=== PATIENT | male | born 1945 | race Caucasian/White ===

== ENCOUNTER → 2017-05-26 | Day surgery (SDC) | payer OTHER ==
[2017-04-21 13:05] VITALS: Ht 189.2 cm; Wt 145.4 kg
[~2017-05-26] VITALS: Ht 189.2 cm; Wt 145.4 kg
[~2017-05-26] MED LIST: 500ML BSS 0.3ML EPI 1:1000PF IRRIG ONE; ACETAMINOPHEN 325 MG TAB PO PRN; AMVISC PLUS 0.8ML SYRINGE INT OCU ONE; ASPI81TA28 PO; ATROPINE SULFATE 0.1 MG/ML 5ML SYR IV PRN; BSS FLUSH ONE; EpHEDrine SULFATE INJ 50 MG/ML AMP IV PRN; EpINEphrine INJ 1MG/ML AMP 1 MG/ML AMP ONE; FOLI1TAB7 PO; LACTATED RINGER'S 1000ML 500 ML IV SCH; LIDOCAINE 3.5% OPH GEL PER APPLICATION CHARGE ONE; LIDOCAINE HCL 1% MPF 2 ML VIAL ONE; LISI-729 PO; METH2.5T PO; MIDAZOLAM HCL 1 MG/ML 2ML VIAL ONE; MISCCAP PO; OCUCOAT 1 ML SOLN IO ONE; POVIDONE-IODINE OP SOLN 30 ML BTL ONE; PROPARACAINE 0.5% OP SOLN PER DROP CHARGE OPL SCH; TOBRAMYCIN/DEXAMETHASONE OPH OINT PER APPLN CHARGE ONE; VNTHFA/IN INH
[2017-05-26] MEDS: PHENYLEPHRINE HCL 2.5% OP SOLN PER DROP CHARGE OPL SCH ×2 (12:08→12:13)
--- NOTE | 2017-05-26 12:08 | History & Physical Bridge - [place] ---
H&P Re-Evaluation Bridge Note: I have examined the patient, reviewed the History & Physical and in the interval since the performance of the History & Physical I have noted the following changes of clinical significance: Diagnosis: Left Cataract Procedure: Left Cataract Removal with Lens Implant No changes noted
[2017-05-26] MEDS: CYCLOPENTOLATE HCL 1% OP SOLN PER DROP CHARGE OPL SCH ×2 (12:09→12:14)
[2017-05-26] MEDS: TROPICAMIDE 1% OP SOLN PER DROP CHARGE OPL SCH ×2 (12:09→12:14)
[2017-05-26] MEDS: KETOROLAC 0.5% OP SOLN PER DROP CHARGE OPL SCH ×2 (12:10→12:15)
[2017-05-26] MEDS: GATIFLOXACIN OP SOLN PER DROP CHARGE OPL SCH ×2 (12:11→12:21)
--- NOTE | 2017-05-26 12:43 | Discharge Instructions-SurgCtr ---
Discharge Instructions Date of Service May 26, 2017. Visit Reason for Visit: Cataract Left Eye Discharge Discharge Diagnosis / Problem: cataract Discharge Goals Goal(s): Improve function Medications Stopped Medications Name(s): Only took 2 medications this morning. Took the rest yesterday. Activity Recommendations Activity Limitations: per Instructions/Follow-up section Anesthesia . Post Anesthesia Instructions: If you have had General Anesthesia or IV Sedation: * Do not drive today. * Resume driving when surgeon permits. * Do not make important decisions or sign legal documents today. * Call surgeon for: 1. Temperature elevations greater than 101 degrees F. 2. Uncontrollable pain. 3. Excessive bleeding. 4. Persistent nausea and vomiting. 5. Medication intolerance (nausea, vomiting or rash). * For nausea and vomiting use only clear liquids such as: tea, soda, bouillon until nausea subsides, then gradually increase diet as tolerated. * If you have any concerns or questions, call your surgeon's office. If physician is unavailable and it is an emergency, call 911 or go to the nearest emergency room. . Diet Recommendations Home Diet: resume previous diet Procedures Procedures Performed: Left Cataract Phacoemulsification With Intraocular Lens Implant Pending Studies Studies pending at discharge: no Medical Emergencies . Who to Call and When: Medical Emergencies: If at any time you feel your situation is an emergency, please call 911 immediately. . Non-Emergent Contact Non-Emergency issues call your: Commercial Artist . . "Provider Documentation" section prepared by Scott Dobbs. .
--- NOTE | 2017-05-26 12:44 | [facility] Operative Report ---
Operative Report Date of Service May 26, 2017. Operative Report 1. PREOPERATIVE DIAGNOSIS: Cataract of the left eye. 2. POSTOPERATIVE DIAGNOSIS: Same. 3. PROCEDURE: Phacoemulsification with intraocular lens implantation of the left eye. SURGEON: Dr. Scott Dobbs. ANESTHESIA: Topical Lidocaine gel, 1% Non- Preserved intracameral Lidocaine, and monitored intravenous sedation. INDICATIONS FOR THE PROCEDURE: The patient is a 72 - year-old male with a history of cataract of the left eye causing significant visual impairment. The details of the proposed procedure were explained to the patient who asked appropriate questions and following discussion of all risks, benefits and alternatives agreed to have the procedure done. 4. OPERATION AND FINDINGS: DESCRIPTION OF PROCEDURE: After informed consent was obtained, the patient was brought to the Operating Room at the [facility]. The patient was placed in a supine position and then the left eye was prepped and draped in the usual sterile fashion for intraocular surgery. A drop of topical Lidocaine gel was placed in the operative eye. A wire lid speculum was then placed in the fornices. A corneal paracentesis was then created temporally. The Non-Preserved Lidocaine was then instilled into the anterior chamber. The anterior chamber was then pressurized with viscoelastic. A 2.0 mm clear corneal incision was then created temporally. A cystotome was inserted into the anterior chamber and used to create a tear in the anterior lens capsule. This capsular tear was then used to create a small flap and the flap was dragged in a counterclockwise direction in order to create a continuous curvilinear capsulorrhexis. Hydrodissection was accomplished with balanced salt solution. Phacoemulsification of the lens nucleus was then performed in a standard [id number] technique. The phaco time was 29 seconds with an average power of 11 %. The remaining cortical material was removed using irrigation aspiration. The capsular bag was then filled with viscoelastic. A B[employer]ch [employer] Lomb MI60L +20.0 diopters lens was then loaded into the injector and injected into the capsular bag. The remaining viscoelastic was removed with the irrigation aspiration handpiece. The wound was hydrated and then checked and found to be watertight. The intraocular pressure was checked and found to be adequate. The wire lid speculum was removed and the patient's face was cleaned and dried. TobraDex ointment was placed in the inferior fornix. The patient was discharged to the Recovery Room having tolerated the procedure well. There were no complications. The patient will be seen tomorrow in the office for follow-up. I attest to the content of the Intraoperative Record and any orders documented therein. Any exceptions are noted below.
[2017-05-26 12:45] VITALS: TEMP 36.9
--- NOTE | 2017-05-26 13:02 | Anesthesia Progress Nt - [facility] ---
Anesthesia Post Op Note Date & Time May 26, 2017 at 13:02 Vital Signs Pain Intensity: 0 Vital Signs Past 12 Hours Date Time Temp Pulse Resp B/P (MAP) Pulse Ox O2 Delivery O2 Flow Rate FiO2 05/26/17 12:45 36.9 80 14 151/80 (103) 98 Room Air 05/26/17 11:57 36.6 87 18 155/83 (107) 96 Room Air Notes Mental Status: alert / awake / arousable, participated in evaluation Pt Amnestic to Procedure: Yes Nausea / Vomiting: adequately controlled Pain: adequately controlled Airway Patency, RR, SpO2: stable & adequate BP & HR: stable & adequate Hydration State: stable & adequate Anesthetic Complications: no major complications apparent
[2017-05-26 13:06] VITALS: BP 139/77; PULSE 74; O2SAT 95
== END | disposition home or self-care (01) ==
LOC: EDBD 08:00 → X.SURG 11:01
PROVIDERS: ATTEND Ophthalmology
DX: H26.9 Unspecified cataract (principal); I10 Essential (primary) hypertension; J45.909 Unspecified asthma, uncomplicated; Z88.2 Allergy status to sulfonamides; Z79.82 Long term (current) use of aspirin; Z79.899 Other long term (current) drug therapy; Z90.89 Acquired absence of other organs; E66.9 Obesity, unspecified; Z68.41 Body mass index [BMI] 40.0-44.9, adult

== ENCOUNTER → 2017-06-16 | Day surgery (SDC) | payer OTHER ==
[2017-06-02 09:13] VITALS: Ht 189.2 cm; Wt 145.4 kg
[~2017-06-16] VITALS: Ht 189.2 cm; Wt 145.4 kg
[~2017-06-16] MED LIST changes: -PROPARACAINE 0.5% OP SOLN PER DROP CHARGE OPL SCH; +PROPARACAINE 0.5% OP SOLN PER DROP CHARGE OPR SCH
[2017-06-16] MEDS: PHENYLEPHRINE HCL 2.5% OP SOLN PER DROP CHARGE OPR SCH ×2 (07:19→07:24)
[2017-06-16] MEDS: TROPICAMIDE 1% OP SOLN PER DROP CHARGE OPR SCH ×2 (07:20→07:25)
[2017-06-16] MEDS: CYCLOPENTOLATE HCL 1% OP SOLN PER DROP CHARGE OPR SCH ×2 (07:21→07:26)
[2017-06-16] MEDS: KETOROLAC 0.5% OP SOLN PER DROP CHARGE OPR SCH ×2 (07:22→07:27)
[2017-06-16] MEDS: GATIFLOXACIN OP SOLN PER DROP CHARGE OPR SCH ×2 (07:23→07:33)
--- NOTE | 2017-06-16 08:02 | History & Physical Bridge - [place] ---
H&P Re-Evaluation Bridge Note: I have examined the patient, reviewed the History & Physical and in the interval since the performance of the History & Physical I have noted the following changes of clinical significance: No changes noted
--- NOTE | 2017-06-16 08:38 | Discharge Instructions-SurgCtr ---
Discharge Instructions Date of Service Jun 16, 2017. Visit Reason for Visit: Right Cataract Discharge Discharge Diagnosis / Problem: catract Discharge Goals Goal(s): Improve function Activity Recommendations Activity Limitations: per Instructions/Follow-up section Anesthesia . Post Anesthesia Instructions: If you have had General Anesthesia or IV Sedation: * Do not drive today. * Resume driving when surgeon permits. * Do not make important decisions or sign legal documents today. * Call surgeon for: 1. Temperature elevations greater than 101 degrees F. 2. Uncontrollable pain. 3. Excessive bleeding. 4. Persistent nausea and vomiting. 5. Medication intolerance (nausea, vomiting or rash). * For nausea and vomiting use only clear liquids such as: tea, soda, bouillon until nausea subsides, then gradually increase diet as tolerated. * If you have any concerns or questions, call your surgeon's office. If physician is unavailable and it is an emergency, call 911 or go to the nearest emergency room. . Diet Recommendations Home Diet: resume previous diet Procedures Procedures Performed: Right Cataract Phacoemulsification With Intraocular Lens Implant Pending Studies Studies pending at discharge: no Medical Emergencies . Who to Call and When: Medical Emergencies: If at any time you feel your situation is an emergency, please call 911 immediately. . Non-Emergent Contact Non-Emergency issues call your: Gas Fitter Apprentice . . "Provider Documentation" section prepared by Scott Dobbs. .
--- NOTE | 2017-06-16 08:38 | [facility] Operative Report ---
Operative Report Date of Service Jun 16, 2017. Operative Report 1. PREOPERATIVE DIAGNOSIS: Cataract of the right eye. 2. POSTOPERATIVE DIAGNOSIS: Same. 3. PROCEDURE: Phacoemulsification with intraocular lens implantation of the right eye. SURGEON: Dr. Scott Dobbs. ANESTHESIA: Topical Lidocaine gel, 1% Non- Preserved intracameral Lidocaine, and monitored intravenous sedation. INDICATIONS FOR THE PROCEDURE: The patient is a 72 - year-old male with a history of cataract of the right eye causing significant visual impairment. The details of the proposed procedure were explained to the patient who asked appropriate questions and following discussion of all risks, benefits and alternatives agreed to have the procedure done. 4. OPERATION AND FINDINGS: DESCRIPTION OF PROCEDURE: After informed consent was obtained, the patient was brought to the Operating Room at the [facility]. The patient was placed in a supine position and then the right eye was prepped and draped in the usual sterile fashion for intraocular surgery. A drop of topical Lidocaine gel was placed in the operative eye. A wire lid speculum was then placed in the fornices. A corneal paracentesis was then created temporally. The Non-Preserved Lidocaine was then instilled into the anterior chamber. The anterior chamber was then pressurized with viscoelastic. A 2.0 mm clear corneal incision was then created temporally. A cystotome was inserted into the anterior chamber and used to create a tear in the anterior lens capsule. This capsular tear was then used to create a small flap and the flap was dragged in a counterclockwise direction in order to create a continuous curvilinear capsulorrhexis. Hydrodissection was accomplished with balanced salt solution. Phacoemulsification of the lens nucleus was then performed in a standard [id number] technique. The phaco time was 30 seconds with an average power of 10 %. The remaining cortical material was removed using irrigation aspiration. The capsular bag was then filled with viscoelastic. A Bausch [employer] Lomb MI60L +19.0 diopters lens was then loaded into the injector and injected into the capsular bag. The remaining viscoelastic was removed with the irrigation aspiration handpiece. The wound was hydrated and then checked and found to be watertight. The intraocular pressure was checked and found to be adequate. The wire lid speculum was removed and the patient's face was cleaned and dried. TobraDex ointment was placed in the inferior fornix. The patient was discharged to the Recovery Room having tolerated the procedure well. There were no complications. The patient will be seen tomorrow in the office for follow-up. I attest to the content of the Intraoperative Record and any orders documented therein. Any exceptions are noted below.
[2017-06-16 08:40] VITALS: TEMP 36.5
[2017-06-16 08:55] VITALS: BP 139/80; PULSE 75; O2SAT 96
--- NOTE | 2017-06-16 08:58 | Anesthesia Progress Nt - [facility] ---
Anesthesia Post Op Note Date & Time Jun 16, 2017 at 08:58 Vital Signs Pain Intensity: 0 Vital Signs Past 12 Hours Date Time Temp Pulse Resp B/P (MAP) Pulse Ox O2 Delivery O2 Flow Rate FiO2 06/16/17 08:55 75 16 139/80 (99) 96 Room Air 06/16/17 08:40 36.5 78 16 155/84 (107) 98 Room Air 06/16/17 07:11 36.5 73 18 165/94 (117) 98 Room Air Notes Mental Status: alert / awake / arousable, participated in evaluation Pt Amnestic to Procedure: Yes Nausea / Vomiting: adequately controlled Pain: adequately controlled Airway Patency, RR, SpO2: stable & adequate BP & HR: stable & adequate Hydration State: stable & adequate Anesthetic Complications: no major complications apparent
== END | disposition home or self-care (01) ==
LOC: X.SURG 06:22
PROVIDERS: ATTEND Ophthalmology
DX: H26.9 Unspecified cataract (principal); I10 Essential (primary) hypertension; H35.30 Unspecified macular degeneration

== ENCOUNTER 2023-09-01 04:36 | Inpatient (IN) ==
--- OUTSIDE RECORDS SUMMARY | 2023-09-01 04:42 | External Medical Summary | Summary of Care ---
Author Name Unknown Organization [facility] Address [address] [place] [address] Phone [phone] Care Team Providers Care Treatment Technician Name Role Phone Rhianna Huitron DO Primary Care Provider [phone] Reason for Visit * Reason Comments Medication Management Encounter Details Date Type Department Care Team (Late st Contact Info) Description 08/20/2023 9:30 AM [facility] Pharmacy Pharmacy Hematology Oncology [facility] [address] [place] [address] [facility] Hem/Onc [address] [place] [address] Prostate cancer (HCC)* Allergies Active Allergy Reactions Criticality Noted Date Comments Brent Inhibitors Cough Low 11/26/2017 Alendronate Sodium Muscle pain 04/11/2019 Heartburn, constipation, joint pain Misoprostol Diarrhea 08/08/2003 Niacin Er 11/26/2010 Gas, hot flashes Pollen 01/01/2018 Watery eyes, sneezing Pravastatin 02/26/2007 Upset stomach, all .Statins Simvastatin 02/26/2007 Upset stomach documented as of this encounter (statuses as of 08/20/2023) Medications Medication Sig Dispensed Refills Start Date End Date Status ASPIR-81 81 MG PO TBEC 1 TABLET DAILY 0 06/19/2006 Active Folic Acid 1 MG Oral TabletIndications: Arthritis, rheumatoid (HCC) Take 1 Tablet by mouth in the morning. 90 Tablet 3 10/01/2022 Active Clindamycin Phosphate 1 % External LotionIndications: Folliculitis Apply topically to affected area 2 times a day. To affected area of skin. 60 mL 0 11/09/2022 Active Additional Information Patient not taking.Reported on 04/23/2023 Triamcinolone Acetonide 0.1 % External Cream (Aristocort)Indica tions:Folliculitis Apply topically to affected area 2 times a day. To affected area. 30 g 1 11/09/2022 Active Additional Information Patient not taking.Reported on 04/23/2023 Tamsulosin HCl 0.4 MG Oral Capsule (Flomax) Take 1 Capsule by mouth in the morning. 90 Capsule 3 01/02/2023 Active predniSONE 5 MG Oral Tablet (Deltasone)Indicat ions:Prostate cancer (HCC) Take 1 Tablet by mouth in the morning. 30 Tablet 5 04/16/2023 Active Abiraterone Acetate 250 MG Oral Tablet (Zytiga)Indication s:Prostate cancer (HCC) Take 4 Tablets by mouth in the morning on an empty stomach (1 hour before or 2 hours after food). 120 Tablet 5 04/16/2023 Active Losartan Potassium 25 MG Oral Tablet (Cozaar) TAKE 1/2 TABLET BY MOUTH DAILY 45 Tablet 1 07/19/2023 Active Methotrexate Sodium 2.5 MG Oral TabletIndications: Arthritis, rheumatoid (HCC) TAKE 5 TABLETS BY MOUTH ONCE WEEKLY 65 Tablet 1 08/11/2023 Active documented as of this encounter (statuses as of 08/20/2023) Active Problems Problem Noted Date Diagnosed Date Type 2 diabetes mellitus wit h stage 3a chronic kidney disease 08/10/2023 Overview: Per CKD protocol Prostate cancer 04/13/2023 Diabetes mellitus without complication Dyslipidemia, goal LDL below 160 08/29/2019 Osteoporosis with symptom management only 2019 Morbid obesity with BMI of 40.0-44.9, adult 12/02 Fuchs' corneal dystrophy 10/19/2018 History of colon polyps 10/18/2018 HTN, goal below 130/80 12/04/2016 Rheumatoid arthritis involvi ng multiple sites with positive rheumatoid factor 05/12/2016 BMI 35-39 ISOLATED (SEE ACTUAL BMI) 01/14/2010 Overview: Per Obesity Protocol, #19 Encounter for long-term (current) use of medicat ions 11/22/2009 Overview: ICD-10 update of inactive term ADVANCE DIRECTIVE INFORMATION 05/19/2006 Overview: Yes-advised to bring copy in to be scanned into EMR. Impaired fasting glucose 12/16/2005 Macular degeneration 12/02/1999 DISC DIS [id number] documented as of this encounter (statuses as of 08/20/2023) Resolved Problems Problem Noted Date Diagnosed Date Resolved Date Diabetes mellitus with stage 3 chronic kidney disease 07/13/2023 08/13/2023 Overview: Per CKD protocol Chronic kidney disease, stage 3a 04/13/2023 07/16/2023 Overview: Per CKD protocol Prediabetes 11/08/2018 04/17/2022 Overview: Per Prediabetes protocol #1 Morbid (severe) obesity due to excess calories 08/19/2017 03/09/2019 Infective otitis externa 09/08/2012 Cough 07/03/2012 08/18/2012 Benign neoplasm of colon 05/10/2007 Overview: adenomatous repeat colonoscopy in 5 years ARTHRITIS,RHEUMATOID 07/07/2006 016 [id number] 07/07/200611/01 Overview: Renamed Per Clinical Trials Billing Project. Pt is a participant in the [employer] (Consortium of Rheumatology Researchers of [place]) national data collection study. For further information please call Dr Hari Clark or Julia White, RN, CCRC at [phone] [employer] RESEARCH OTHER*[id number] 07/07/2006 01/28/2010 Overview: Renamed Per Clinical Trials Billing Project. Pt is a participant in the [employer] (Consortium of Rheumatology Researchers [place]) national data collection study. For further information please call Dr Hari Clark or Julia White RN, CCRC at [phone] Hearing loss 12/02/1999 03/29/2013 documented as of this encounter (statuses as of 08/20/2023) Immunizations Name Administration Dates Next Due COVID-19 mRNA, LNP-s, No Pre serve, 2-Dose Series (Pfizer) 06/14/2021,10/10/2020,09/12/2020 COVID-19, LNP-s, No Preserve , Yousuf-sucrose, Ages 12+ (Pfizer) 12/25/2021 Covid-19, Mrna, Lnp-s, Pf, B ivalent, 30 Mcg, IM, 12 yrs and above (Pfizer) 05/23/2022 Pneumococcal Conjugate Vacc, 13 Valent (Prevnar) 10/02/2014 Pneumococcal Polysaccharide PPV23 (Pneumovax) 09/01/2011,07/07/2006 Season Influenza, Quad, PF, Adjuvanted, 65+ Yrs, IM (FLUAD) 04/17/2020 Seasonal Influenza, PF, 6 M & above, IM , (FluLaval or Fluzone) 05/06/2018 Seasonal Influenza, Quadriva lent Hd (Fluzone Hd) 05/08/2022,05/07/2021 Seasonal Influenza, Quadriva lent, No Preserve, IM 04/21/2017,04/16/2016,05/04/2015 Seasonal Influenza, Split, I IV3, With Preserve, Inj 04/10/2014,05/16/2013,04/14/2012,04/24,05/20/2010,04/05/2009,05/11/2008 ,06/07/2007,07/07/2006 Seasonal Influenza, Trivalen t, Adjuvanted, 65+ yrs 04/19/2019 TDAP (age 10 and older)(Boostrix) 12/04/2016 TDAP (age 11 and older)(Adacel) 12/03/2006 Varicella Zoster Vaccine (Adult) 10/02/2014 Zoster Vaccine Recombinant (Shingrix) 01/05/2020 ,09/02/2019 documented as of this encounter Social History Tobacco Use Types Packs/Day Years Used Date Smoking Tobacco: Former Cigarettes 1 35 Q uit: 08/03/1997 Passive Smoke Exposure: Past Smokeless Tobacco: Never Comments:occasional cigar Alcohol Use Standard Drinks/Week Comments Not Currently 0 (1 standard drink = 0.6 oz pur e alcohol) PHQ-2 Answer Date Recorded PHQ-2 Score 0 03/19/2020 Hunger Vital Sign Answer Date Recorded Within the past 12 months, y ou worried that your food would run out before you got the money to buy more. Never true 12/17/19 Within the past 12 months, t he food you bought just didn't last and you didn't have money to get more. Never true 12/16/2022 Sex and Gender Information Value Date Recorded Sex Assigned at Male 10/19/2018 8:26 AM EDT Gender Identity Male 10/19/2018 8:26 AM EDT Sexual Orientation Straight 10/19/2018 8: 26 AM EDT Job Start Date Occupation Industry Not on file Not on file Not on file documented as of this encounter Progress Notes * Enedina Ordoñez, [facility] - 08/20/2023 11:25 AM EST MEDICATION THERAPY MANAGEMENT ABIRATERONE TREATMENT PROGRESS NOTE Markus Lamas (Ron) Akiko [id number] Patient Phone Numbers Preferred Lab: [facility]: [facility] Communication: Spoke to: Patient Treatment: Medication: Abiraterone (Zytiga) Indication/Staging/Diagnosis Code: prostate cancer/ C61 Dose: 1000mg daily Administration: empty stomach (1 hour before or 2 hours after a meal) Start Date: 04/27/23 Primary Crusher Setter/Oncologist: Dr. Leon Puente Additional Therapy: Prednisone 5mg daily Lupron Supportive Care Meds: None Prophylactic Meds: Losartan 12.5mg daily HCTZ 12.5mg daily Treatment History: 04/08/23-present: Lupron Interval History: Pt has chronic RA resolved with MTX and APAP as needed. States BP stable < 150/90 Continues to endorse fatigue that does not affect QoL or ADLs Reports one hot flash after leuprolide injection No other concerns, tolerating therapy well Changes to medication list since last visit? No Assessment and Plan: BUN elevated Advised pt to increase fluid intake Will monitor closely All other labs stable Continue BP monitoring and close follow up with PCP for management Reviewed resting when needed, working when able, and to contact office if fatigue affecting QoL or ADLs Reviewed dressing in layers, stepping in cold environment, and applying cold compress to pressure points for hot flash management. Advised pt to contact office if hot flashes increase in frequency orseverity Continue current therapy and monthly labs Next due with OV Scheduled 09/09/23 @1030 Assessment of compliance: compliant Assessment of adverse effects attributed to drug therapy: Edema/fluid retention - absent HTN - absent Joint swelling or discomfort - absent Arthralgias/Myalgias - present, chronic, stable Diarrhea/Constipation - absent Dose adjustment needed based on lab or adverse drug reaction? No Follow up: 3 weeks OV/labs; 7 weeks MTM with labs Enedina Ordoñez, PharmD, BCOP Clinical Pharmacist, [facility] Oral Chemotherapy [facility] 08/20/2023, 11:49 AM Monitoring Parameters: Estimated CrCl Serum creatinine: 1.4 mg/dL (H) 08/20/23 1046 Estimated creatinine clearance: 64.6 mL/min (A) Hepatitis panel Latest Reference Range & Units 04/10/23 13:02 Hepatitis B Surface Antigen Negative Negative Hepatitis B Surface Antibody, Quantitative mIU/mL <3.5 HEPATITIS B SURFACE ANTIBODY Rpt Hepatitis B Surface Antibody, Interpretation NOT immune to Hepatitis B Virus Hepatitis B Surface Antibody, Qualitative Negative Hepatitis B Core Antibodies IgG and IgM Negative Negative test N/A Suggested lab monitoring Suggested lab monitoring: LFTs baseline, every 2 weeks x 3 months, then every month (patients with moderate hep impairment: every 1 week x 1 month, every two weeks x 2 months, then every month), BMP baseline and monthly; BP baseline and monthly Treatment Parameters Per PI Pertinent labs: Latest Reference Range & Units 07/06/23 11:17 07/21/23 10:55 08/20/23 10:46 Albumin 3.8 - 5.0 g/dL 3.9 3.9 3.8 AST 10 - 50 U/L 17 21 18 ALT 10 - 50 U/L 15 20 15 Alkaline Phosphatase 35 - 130 U/L 89 93 95 Bilirubin, Total <=1.2 mg/dL 0.5 0.4 0.4 Latest Reference Range & Units 07/06/23 11:17 07/21/23 10:55 08/20/23 10:46 BUN 6 - 20 mg/dL 24 (H) 27 (H) 29 (H) Creatinine 0.6 - 1.2 mg/dL 1.6 (H) 1.4 (H) 1.4 (H) Estimated Glomerular Filtration Rate >=60 mL/min 43 (L) 51 (L) 53 (L) Time Spent on Encounter: 11 - 15 minutes Encounter Group: Oncology Encounter Interventions Item Category: Oral Chemotherapy Abiraterone Problem/Rationale: Safety: Needs additional monitoring - Medication Requires monitoring Pharmacist Intervention(s): Care coordination, Lab monitoring, Non- pharmacological intervention provided, and Toxicity monitoring Magnitude of Intervention: Monitoring with direction (Level 1) documented in this encounter Plan of Treatment Upcoming Encounters Date Type Department Care Team (Late st Contact Info) Description 09/09/2023 10:30 AM EST Laboratory Laboratory [facility] [address] [facility] [place] [phone] [place] [address] [place] [address] 09/09/2023 11:15 AM EST Office Visit Hematology/Oncology [facility] [place] [address] [facility] [place] [address] Patrice Puente MD [address] [facility] [place] [address] 09/10/2023 9:40 AM EST Office Visit Rheumatology [address] [place] [address] Mendel Wilson MD [facility] [place] [address] 09/11/2023 9:15 AM EST Telemedicine Urology Samy Bhatt [address] [place] [address] Vinay Sexton MD [address] [place] [address] 7, Telemed [facility] Urology Ex Rm [address] [facility] [place] [address] 10/07/2023 9:30 AM EST Pharmacy Pharmacy Hematology Oncology [facility] [address] [place] [address] [facility] Hem/Onc [address] [place] [address] 10/30/2023 9:30 AM EDT Office Visit [facility] [address] [place] [phone] Rhianna Huitron DO [address] [place] [address] 11/16/2023 10:30 AM EDT Nurse Only Urology, [facility] [address] [facility] [place] [address] [place], Nurse Urology [facility] [address] [facility] [place] [address] Scheduled Procedures Name Priority Associated Diagnoses Date/Ti me COLONOSCOPY FLEXIBLE PROXIMAL DIAGNOSTIC Recall Hx of colonic polyps Health Maintenance Due Date Last Done Comments CKD PHOS USE SMARTSET 74600 02/23/1963 Hepatitis B (1 of 3 - Risk 3-dose series) 2006 DXA Scan 01/10/2021 01/10/2019, 12/2005, 07/07/2006 Depression Screening 03/13/2021 03/13/2020 COVID-19 Vaccine ( season) 2023 05/23/2022, 12/25/2021, 06/14/2021, Additional history exists Influenza Vaccine (FLU shot) (#1) 2023 05/08/2022, 05/07/2021, 04/17/2020, Additional history exists Albumin/Creatinine Ratio 04/10/2023 04/10/2022, 10/2006 *BISPHONATE OR OTHER ACCEPTABLE MEDICATION NEEDED FOR OSTEOPOROSIS (REFER TO SMARTSET #1146) 04/29/2023 HbA1c 12/21/2023 06/22/2023, 12/02, 11/15/2022, Additional history exists Diabetic Foot Exam 12/25/2023 12/24/2022 COLONOSCOPY-EVERY 5 YRS AGES 18-100 01/22/2024 01/21/2019, 01/21/2019, 05/10/2013, Additional history exists Diabetic Eye Exam 01/31/2024 01/30/2023, , 01/25/2021, Additional history exists GFR 02/18/2024 08/20/2023, 07/03, 07/06/2023, Additional history exists CKD HGB USE SMARTSET 84939 07/06/202407/06, 07/06/2023, 06/22/2023, Additional history exists DTaP,Tdap,and Td Vaccines (3 - Td or Tdap) 12/04/2026 12/04/2016, 12/03/2006, 12/15/1996, Additional history exists Pneumococcal Vaccine: 65+ Years Completed 10/02/2014, 09/01/2011, 07/07/2006 Zoster Vaccines Completed 01/05/2020, 08/05, 10/02/2014 VITAMIN D LEVEL ONCE IN A LIFETIME-USE SMARTSET# [id number] Completed 05/27/2021, 09/07/2019, 01/10/2019, Additional history exists GARDASIL-HPV IMMUNIZATION SERIES Aged Out No longer eligible based on patient's age to complete this topic MENINGOCOCCAL (MENACTRA/MENVEO) Aged Out No longer eligible based on patient's age to complete this topic documented as of this encounter Medical Devices Not on filedocumented as of this encounter Visit Diagnoses Diagnosis Prostate cancer (HCC)- Primary Malignant neoplasm of prostate documented in this encounter Care Teams Treatment Technician Relationship Specialty Start Date End Date Rhianna Huitron DO [address] [place] [facility] [place] [address] PCP - General Family Medicine 07/11/19 documented as of this encounter
--- OUTSIDE RECORDS SUMMARY | 2023-09-01 04:43 | External Medical Summary | Summary of Care ---
Author Name Unknown Organization [facility] Address [address] [facility] [place] [address] Phone [phone] Care Team Providers Care Marine Engine Machinist Name Role Phone Rhianna Huitron DO Primary Care Provider Reason for Visit * Precert (Within 10 days (routine)) - Authorized Specialty Diagnoses / Procedures Referred By Contac t Referred To Contact Diagnoses Malignant neoplasm of prostate (HCC) Procedures [place] LEUPROLIDE ACETATE SUSPNSION Vinay Sexton MD [address] [place] [address] Vinay Sexton MD [address] [place] [address] Referral ID Status Reason Start Date Expiration Date V isits Requested Visits Authorized [id number] Authorized Precert 03/31/2023 03/30/[phone] Encounter Details Date Type Department Care Team (Late st Contact Info) Description 08/17/2023 2:00 PM EST Nurse Only Urology, [facility] [address] [place] [address] Nurse [facility] [place] [address] [place] [address] Allergies Active Allergy Reactions Criticality Noted Date Comments Brent Inhibitors Cough Low 11/26/2017 Alendronate Sodium Muscle pain 04/11/2019 Heartburn, constipation, joint pain Misoprostol Diarrhea 08/08/2003 Niacin Er 11/26/2010 Gas, hot flashes Pollen 01/01/2018 Watery eyes, sneezing Pravastatin 02/26/2007 Upset stomach, all .Statins Simvastatin 02/26/2007 Upset stomach documented as of this encounter (statuses as of 08/17/2023) Medications Medication Sig Dispensed Refills Start Date [...] ONCE WEEKLY 65 Tablet 1 08/11/2023 Active Hospital, Clinic, or Other Facility Administered Medication Ordered Dose Route Frequency Start Date End Date Status Leuprolide Acetate (4 Month) (Lupron) inj 30 mgIndications:Prostate cancer (HCC) 30 mg IM ONCE 08/17/2023 08/18/2023 Active documented as of this encounter (statuses as of 08/17/2023) Active Problems Problem Noted Date Diagnosed Date [...] glucose 12/16/2005 Macular degeneration 12/02/1999 DISC DIS [id number] documented as of this encounter (statuses as of 08/17/2023) Resolved Problems Problem Noted Date Diagnosed Date [...] colonoscopy in 5 years ARTHRITIS,RHEUMATOID 07/07/2006 016 [id number] 07/07/200611/01 Overview: Renamed Per Clinical Trials Billing Project. Pt is a participant in the [facility] (Consortium of Rheumatology Researchers of [facility]) national data collection study. For further information please call Dr Hari Clark or Julia White, RN, CCRC at [phone] [facility] RESEARCH OTHER*[id number] 07/07/2006 01/28/2010 Overview: Renamed Per Clinical Trials Billing Project. Pt is a participant in the [facility] ([facility] of Rheumatology Researchers of [facility]) national data collection study. For further information please call Dr Hari Clark or Julia White, RN, CCRC at [phone] Hearing loss 12/02/1999 03/29/2013 documented as of this encounter (statuses as of 08/17/2023) Immunizations Name Administration Dates Next Due COVID-19 mRNA, LNP-s, No Pre serve, 2-Dose Series ([facility]) 06/14/2021,10/10/2020,09/12/2020 COVID-19, LNP-s, No Preserve , Yousuf-sucrose, Ages 12+ (Pfizer) 12/25/2021 Covid-19, Mrna, Lnp-s, Pf, B ivalent, 30 Mcg, IM, 12 yrs and above (Pfizer) 05/23/2022 Diptheria/Tetanus (Adult) 12/15/1996 Pneumococcal Conjugate Vacc, 13 Valent (Prevnar) 10/02/2014 Pneumococcal Polysaccharide PPV23 (Pneumovax) 09/01/2011,07/07/2006 Season Influenza, Quad, PF, Adjuvanted, 65+ Yrs, IM (FLUAD) 04/17/2020 Seasonal Influenza, PF, 6 M & above, IM , (FluLaval or Fluzone) 05/06/2018 Seasonal Influenza, Quadriva lent Hd (Fluzone Hd) 05/08/2022,05/07/2021 Seasonal Influenza, Quadriva lent, No Preserve, IM 04/21/2017,04/16/2016,05/04/2015 Seasonal Influenza, Split, I IV3, With Preserve, Inj 04/10/2014,05/16/2013,04/14/2012,04/24,05/20/2010,04/05/2009,05/11/2008 ,06/07/2007,07/07/2006,05/18/2003,05/03 Seasonal Influenza, Trivalen t, Adjuvanted, 65+ yrs 04/19/2019 TD - Tetanus/Diptheria (ADULT) 08/03/1989 TDAP (age 10 and older)(Boostrix) 12/04/2016 TDAP [...] money to buy more. Never true 12/17/19 23 Within the past 12 months, t he [...] on file documented as of this encounter Nursing Notes * Monica Arroyo LPN - 08/17/2023 2:08 PM EST Lupron 30 Mg was given IM in RVG. Patient tolerated well. documented in this encounter Miscellaneous Notes * Addendum Note - Vinay Sexton MD - 08/17/2023 5:14 PM ESTAddended by: VINAY SEXTON on: 08/17/2023 05:14 PM Modules accepted: Orders documented in this encounter Plan of Treatment Upcoming Encounters Date Type Department Care Team (Late st Contact Info) Description 08/18/2023 9:30 AM EST Pharmacy Pharmacy Hematology Oncology [address] [address] [facility] Clinic Hem/[place] [address] 08/18/2023 11:00 AM EST Laboratory Laboratory [facility] [address] [place] [address] [place], [facility] [address] [facility] [place] [address] 09/09/2023 11:15 AM EST Office Visit Hematology/Oncology [facility] [address] [place] [address] Patrice Puente MD [address] [place] [address] 09/10/2023 9:40 AM EST Office Visit Rheumatology [phone] [place] [address] Mendel Wilson MD [facility] [place] [address] 09/11/2023 9:15 AM EST Telemedicine Urology Samy Bhatt [address] [place] [address] Vinay Sexton MD [address] [place] [address] 7, Telemed [facility] Urology Ex Rm [address] [facility] [place] [address] 10/30/2023 9:30 AM EDT Office Visit [facility] [address] [facility] [place] [phone] Rhianna Huitron DO [address] [place] [facility] [place] [address] 11/16/2023 10:30 AM EDT Nurse Only Urology, [facility] [address] [facility] [place] [address] [facility], Nurse Urology [facility] [address] [facility] [place] [address] Scheduled Procedures Name Priority Associated Diagnoses Date/Ti me COLONOSCOPY FLEXIBLE PROXIMAL DIAGNOSTIC Recall Hx of colonic polyps Health Maintenance Due Date Last Done Comments CKD PHOS USE SMARTSET 87985 02/23/1963 Hepatitis B (1 of 3 - [...] history exists Diabetic Foot Exam 12/25/2023 12/24/2022 GFR 01/20/2024 07/21/2023, 11/2022, 06/22/2023, Additional history exists COLONOSCOPY-EVERY 5 YRS AGES 18-100 01/22/2024 01/21/2019, 01/21/2019, 05/10/2013, Additional history exists Diabetic Eye Exam 01/31/2024 01/30/2023, , 01/25/2021, Additional history exists CKD HGB USE SMARTSET 15423 07/06/202407/06, 07/06/2023, 06/22/2023, Additional history exists DTaP,Tdap,and Td Vaccines (3 - Td or Tdap) 12/04/2026 12/04/2016, 12/03/2006, 12/15/1996, Additional history exists Pneumococcal Vaccine: 65+ Years Completed 10/02/2014, 09/01/2011, 07/07/2006 Zoster Vaccines Completed 01/05/2020, 08/05, 10/02/2014 VITAMIN D LEVEL ONCE IN A LIFETIME-USE SMARTSET# [id number] Completed 05/27/2021, 09/07/2019, 01/10/2019, Additional history exists GARDASIL-HPV IMMUNIZATION SERIES Aged Out No longer eligible based on patient's age to complete this topic MENINGOCOCCAL (MENACTRA/MENVEO) Aged Out No longer eligible based on patient's age to complete this topic documented as of this encounter Medical Devices Not on filedocumented as of this encounter Visit Diagnoses Diagnosis Prostate cancer (HCC)- Primary Malignant neoplasm of prostate Elevated prostate specific antigen (PSA) BPH with obstruction/lower urinary tract symptoms Hypertrophy of prostate with urinary obstruction and other lower urinary tract symptoms (LUTS) documented in this encounter Care Teams Marine Engine Machinist Relationship Specialty Start Date End Date Rhianna Huitron DO [address] [place] [address] PCP - General Family Medicine 07/11/19 documented as of this encounter
--- OUTSIDE RECORDS SUMMARY | 2023-09-01 04:43 | External Medical Summary | Summary of Care ---
Author Name Unknown Organization [facility] Address [address] [facility] [address] Phone [phone] Care Team Providers Care Wax Coating Machine Tender Name Role Phone Rhianna Huitron DO Primary Care Provider [phone] Reason for Visit * Reason Onset Date Comments Appointment 08/10/2023 Encounter Details Date Type Department Care Team (Late st Contact Info) Description 08/10/2023 Telephone [facility] [address] [place] [address] Nurse Garrett Urology [facility] [address] [place] [address] Appointment Allergies Active Allergy Reactions Criticality Noted Date Comments Brent Inhibitors Cough Low 11/26/2017 Alendronate Sodium Muscle pain 04/11/2019 Heartburn, constipation, joint pain Misoprostol Diarrhea 08/08/2003 Niacin Er 11/26/2010 Gas, hot flashes Pollen 01/01/2018 Watery eyes, sneezing Pravastatin 02/26/2007 Upset stomach, all .Statins Simvastatin 02/26/2007 Upset stomach documented as of this encounter (statuses as of 08/12/2023) Medications Medication Sig Dispensed Refills Start Date End Date Status ASPIR-81 81 MG PO TBEC 1 TABLET DAILY 0 06/19/2006 Active Folic Acid 1 MG Oral TabletIndication s:Arthritis, rheumatoid (HCC) Take 1 Tablet by mouth in the morning. 90 Tablet 3 10/01/2022 Active Clindamycin Phosphate 1 % External LotionIndication s:Folliculitis Apply topically to affected area 2 times a day. To affected area of skin. 60 mL 0 11/09/2022 Active Additional Information Patient not taking.Reported on 04/23/2023 Triamcinolone Acetonide 0.1 % External Cream (Aristocort)Kristyn cations:Follicul itis Apply topically to affected area 2 times a day. To affected area. 30 g 1 11/09/2022 Active Additional Information Patient not taking.Reported on 04/23/2023 Tamsulosin HCl 0.4 MG Oral Capsule (Flomax) Take 1 Capsule by mouth in the morning. 90 Capsule 3 01/02/2023 Active predniSONE 5 MG Oral Tablet (Deltasone)Indic ations:Prostate cancer (HCC) Take 1 Tablet by mouth in the morning. 30 Tablet 5 04/16/2023 Active Abiraterone Acetate 250 MG Oral Tablet (Zytiga)Indicati ons:Prostate cancer (HCC) Take 4 Tablets by mouth in the morning on an empty stomach (1 hour before or 2 hours after food). 120 Tablet 5 04/16/2023 Active Losartan Potassium 25 MG Oral Tablet (Cozaar) TAKE 1/2 TABLET BY MOUTH DAILY 45 Tablet 1 07/19/2023 Active Methotrexate Sodium 2.5 MG Oral TabletIndication s:Arthritis, rheumatoid (HCC) Take 5 tablets by mouth once weekly 65 Tablet 0 04/01/2023 4 Discontinued documented as of this encounter (statuses as of 08/12/2023) Active Problems Problem Noted Date Diagnosed Date Diabetes mellitus with stage 3 chronic kidney di sease 07/13/2023 Overview: Per CKD protocol Prostate cancer 04/13/2023 Diabetes mellitus without complication 2 Dyslipidemia, goal LDL below 160 08/29/2019 Osteoporosis with symptom management only 2019 Morbid obesity with BMI of 40.0-44.9, adult 05/03/2019 Fuchs' corneal dystrophy 10/19/2018 History of colon [...] glucose 12/16/2005 Macular degeneration 12/02/1999 DISC DIS [id number] documented as of this encounter (statuses as of 08/12/2023) Resolved Problems Problem Noted Date Diagnosed Date Resolved Date Chronic kidney disease, stage 3a 04/13/2023 07/16/2023 Overview: Per CKD protocol Prediabetes 11/08/2018 04/17/2022 Overview: Per Prediabetes protocol #1 Morbid (severe) obesity due to excess calories 08/19/2017 03/09/2019 Infective otitis externa 09/08/2012 Cough 07/03/2012 08/18/2012 Benign neoplasm of colon 05/10/2007 Overview: adenomatous repeat colonoscopy in 5 years ARTHRITIS,RHEUMATOID 07/07/2006 016 [id number] 07/07/200611/01 Overview: Renamed Per Clinical Trials Billing Project. Pt is a participant in the [employer] (Consortium of Rheumatology Researchers of [place]) national data collection study. For further information please call Dr Hari Clark or Julia White, RN, CCRC at [phone] [facility] RESEARCH OTHER*[id number] 07/07/2006 01/28/2010 Overview: Renamed Per Clinical Trials Billing Project. Pt is a participant in the [employer] (Consortium of Rheumatology Researchers [place]) national data collection study. For further information please call Dr Hari Clark or Julia White, RN, CCRC at [phone] Hearing loss 12/02/1999 03/29/2013 documented as of this encounter (statuses as of 08/12/2023) Immunizations Name Administration Dates Next Due COVID-19 [...] on file documented as of this encounter Miscellaneous Notes * Telephone Encounter - Oleksandr Ferraro OSA - 08/12/2023 10:27 AM EST Scheduled 08/17/23 * Telephone Encounter - Vera Kapadia OSA - 08/10/2023 1:03 PM EST Pt needs to reschedule the Nurse visit for the injection for 08/11/23. Please call to reschedule. Thank you Vera documented in this encounter Plan of Treatment Upcoming Encounters Date Type Department Care Team (Late st Contact Info) Description 08/17/2023 2:00 PM EST [facility] [address] [place] [address] Garrett Nurse Urology [place] [address] [place] [address] 08/18/2023 9:30 AM EST Pharmacy Pharmacy Hematology Oncology [facility] [place] [address] [place] [address] [facility] [place] Hem/Onc [address] [place] [address] 08/18/2023 11:00 AM EST Laboratory Laboratory [facility] [address] [place] [phone] [facility] [address] [place] [address] 09/09/2023 11:15 AM EST Office Visit Hematology/Oncology [facility] [place] [address] [place] [address] Patrice Peunte MD [address] [place] [address] 09/10/2023 9:40 AM EST Office Visit Rheumatology [place] [id number] [place] [address] Mendel Wilson MD [address] [place] [address] 09/11/2023 9:15 AM EST Telemedicine Urology Samy Bhatt [address] [place] [address] Vinay Sexton MD [address] [place] [address] 7, Telemed [facility] Urology Ex Rm [address] [place] [address] 10/30/2023 9:30 AM EDT Office Visit [facility] [address] [place] [phone] Rhianna Huitron DO [address] [place] [address] Scheduled Procedures Name Priority Associated Diagnoses Date/Ti me COLONOSCOPY FLEXIBLE PROXIMAL DIAGNOSTIC Recall Hx of colonic polyps Health Maintenance Due Date Last Done Comments CKD PHOS USE SMARTSET 29479 02/23/1963 Hepatitis B (1 of 3 - [...] TO SMARTSET #1146) 04/29/2023 HbA1c 12/21/2023 06/22/2023, 052 11/2022, 11/15/2022, Additional history exists Diabetic Foot Exam 12/25/2023 12/24/2022 GFR 01/20/2024 07/21/2023, 11/2022, 06/22/2023, Additional history exists COLONOSCOPY-EVERY 5 YRS AGES 18-100 01/22/2024 01/21/2019, 01/21/2019, 05/10/2013, Additional history exists Diabetic Eye Exam 01/31/2024 01/30/2023, , 01/25/2021, Additional history exists CKD HGB USE SMARTSET 25390 07/06/202407/06, 07/06/2023, 06/22/2023, Additional history exists DTaP,Tdap,and Td Vaccines (3 - Td or Tdap) 12/04/2026 12/04/2016, 12/03/2006, 12/15/1996, Additional history exists Pneumococcal Vaccine: 65+ Years Completed 10/02/2014, 09/01/2011, 07/07/2006 Zoster Vaccines Completed 01/05/2020, 08/05, 10/02/2014 VITAMIN D LEVEL ONCE IN A LIFETIME-USE SMARTSET# 57739 Completed 05/27/2021, 09/07/2019, 01/10/2019, Additional history exists GARDASIL-HPV IMMUNIZATION SERIES Aged Out No longer eligible based on patient's age to complete this topic MENINGOCOCCAL (MENACTRA/MENVEO) Aged Out No longer eligible based on patient's age to complete this topic documented as of this encounter Medical Devices Not on filedocumented as of this encounter Care Teams Wax Coating Machine Tender Relationship Specialty Start Date End Date Rhianna Huitron DO [address] [place] [address] PCP - General Family Medicine 07/11/19 documented as of this encounter
--- OUTSIDE RECORDS SUMMARY | 2023-09-01 04:43 | External Medical Summary | Summary of Care ---
Author Name Unknown Organization [facility] Address [address] [facility] [address] Phone [phone] Care Team Providers Care Congregational Care Pastor Name Role Phone Rhianna Huitron DO Primary Care Provider [phone] Reason for Visit * Reason Onset Date Comments Appointment 08/10/2023 Encounter Details Date Type Department Care Team (Late st Contact Info) Description 08/10/2023 Telephone [facility] [address] [place] [address] Nurse Garrett Urology [facility] [address] [place] [address] Appointment Allergies Active Allergy Reactions Criticality Noted Date Comments Brent Inhibitors Cough Low 11/26/2017 Alendronate Sodium Muscle pain 04/11/2019 Heartburn, constipation, joint pain Misoprostol Diarrhea 08/08/2003 Niacin Er 11/26/2010 Gas, hot flashes Pollen 01/01/2018 Watery eyes, sneezing Pravastatin 02/26/2007 Upset stomach, all .Statins Simvastatin 02/26/2007 Upset stomach documented as of this encounter (statuses as of 08/10/2023) Medications Medication Sig Dispensed Refills Start Date [...] the morning. 90 Capsule 3 01/02/2023 Active Methotrexate Sodium 2.5 MG Oral TabletIndications: Arthritis, rheumatoid (HCC) Take 5 tablets by mouth once weekly 65 Tablet 0 04/01/2023 Active predniSONE 5 MG Oral Tablet (Deltasone)Indicat [...] MOUTH DAILY 45 Tablet 1 07/19/2023 Active documented as of this encounter (statuses as of 08/10/2023) Active Problems Problem Noted Date Diagnosed Date [...] glucose 12/16/2005 Macular degeneration 12/02/1999 DISC DIS [id number] documented as of this encounter (statuses as of 08/10/2023) Resolved Problems Problem Noted Date Diagnosed Date Resolved Date Chronic kidney disease, stage 3a 04/13/2023 07/16/2023 Overview: Per CKD protocol Prediabetes 11/08/2018 04/17/2022 Overview: Per Prediabetes protocol #1 Morbid (severe) obesity due to excess calories 08/19/2017 03/09/2019 Infective otitis externa 09/08/2012 Cough 07/03/2012 08/18/2012 Benign neoplasm of colon 05/10/2007 Overview: adenomatous repeat colonoscopy in 5 years ARTHRITIS,RHEUMATOID 07/07/2006 016 [id number] 07/07/200611/01 Overview: Renamed Per Clinical Trials Billing Project. Pt is a participant in the [employer] (Consortium of Rheumatology Researchers [place]) national data collection study. For further information please call Dr Hari Clark or Julia White, RN, CCRC at [phone] [facility] RESEARCH OTHER*[id number] 07/07/2006 01/28/2010 Overview: Renamed Per Clinical Trials Billing Project. Pt is a participant in the [employer] (Consortium of Rheumatology Researchers [place]) national data collection study. For further information please call Dr Hari Clark or Julia White, RN, CCRC at [phone] Hearing loss 12/02/1999 03/29/2013 documented as of this encounter (statuses as of 08/10/2023) Immunizations Name Administration Dates Next Due COVID-19 [...] encounter Miscellaneous Notes * Telephone Encounter - Vera Kapadia OSA - 08/10/2023 1:03 PM EST Pt needs to reschedule the Nurse visit for the injection for 08/11/23. Please call to reschedule. Thank you Vera documented in this encounter Plan of Treatment Upcoming Encounters Date Type Department Care Team (Late st Contact Info) Description 08/18/2023 9:30 AM EST Pharmacy Pharmacy Hematology Oncology [address] [address] [facility] [place] Hem/Onc [facility] [place] [address] 08/18/2023 11:00 AM EST Laboratory Laboratory [facility] [place] [address] [place] [phone] [facility] [address] [facility] [place] [address] 09/09/2023 11:15 AM EST Office Visit Hematology/Oncology [facility] [address] [place] [address] Patrice Puente MD [address] [place] [address] 09/10/2023 9:40 AM EST Office Visit Rheumatology [facility] [address] [place] [address] Mendel Wilson MD [address] [facility] [place] [address] 09/11/2023 9:15 AM EST Telemedicine Urology Samy Bhatt [address] [place] [place] [address] Vinay Sexton MD [address] [place] [place] [address] 7, Telemed [facility] Urology Ex Rm [address] [place] [address] 10/30/2023 9:30 AM EDT Office Visit [facility] [address] [place] [address] Rhianna Huitron, [address] [place] [address] Scheduled Procedures Name Priority Associated Diagnoses Date/Ti me COLONOSCOPY FLEXIBLE PROXIMAL DIAGNOSTIC Recall Hx of colonic polyps Health Maintenance Due Date Last Done Comments CKD PHOS USE SMARTSET 16661 02/23/1963 Hepatitis B (1 of 3 - Risk 3-dose series) 2006 DXA Scan 01/10/2021 01/10/2019, 12/0 12/2005, 07/07/2006 Depression Screening 03/13/2021 03/13/2020 COVID-19 Vaccine ( season) 2023 05/23/2022, 12/25/2021, 06/14/2021, Additional history exists Influenza Vaccine (FLU shot) (#1) 2023 05/08/2022, 05/07/2021, 04/17/2020, Additional history exists Albumin/Creatinine Ratio 04/10/2023 04/10/2022, 10/2006 *BISPHONATE OR OTHER ACCEPTABLE MEDICATION NEEDED FOR OSTEOPOROSIS (REFER TO SMARTSET #1146) 04/29/2023 HbA1c 12/21/2023 06/22/2023, 2 11/2022, 11/15/2022, Additional history exists Diabetic Foot Exam 12/25/2023 12/24/2022 GFR 01/20/2024 07/21/2023, 11/2022, 06/22/2023, Additional history exists COLONOSCOPY-EVERY 5 YRS AGES 18-100 01/22/2024 01/21/2019, 01/21/2019, 05/10/2013, Additional history exists Diabetic Eye Exam 01/31/2024 01/30/2023, , 01/25/2021, Additional history exists CKD HGB USE SMARTSET 67863 07/06/202407/06, 07/06/2023, 06/22/2023, Additional history exists DTaP,Tdap,and Td Vaccines (3 - Td or Tdap) 12/04/2026 12/04/2016, 12/03/2006, 12/15/1996, Additional history exists Pneumococcal Vaccine: 65+ Years Completed 10/02/2014, 09/01/2011, 07/07/2006 Zoster Vaccines Completed 01/05/2020, 08/05, 10/02/2014 VITAMIN D LEVEL ONCE IN A LIFETIME-USE SMARTSET# 23856 Completed 05/27/2021, 09/07/2019, 01/10/2019, Additional history exists GARDASIL-HPV IMMUNIZATION SERIES Aged Out No longer eligible based on patient's age to complete this topic MENINGOCOCCAL (MENACTRA/MENVEO) Aged Out No longer eligible based on patient's age to complete this topic documented as of this encounter Medical Devices Not on filedocumented as of this encounter Care Teams Congregational Care Pastor Relationship Specialty Start Date End Date Rhianna Huitron DO [address] [place] [address] PCP - General Family Medicine 07/11/19 documented as of this encounter
--- OUTSIDE RECORDS SUMMARY | 2023-09-01 04:43 | External Medical Summary ---
Author Name Unknown Address Unknown Organization K09:[facility] [place] [address] Laboratory Report Ordering Provider Test Date Status JOHNATHON CASILLAS 07/21/2023 10:55:35 Final Every two weeks for three mo nths, then every month (patients with moderate hep impairment every week for one month, every two weeks for two months, then every month) Observation Date Value Abnormality Reference (Units ) Status BUN 07/21/2023 10:55:35 27 Above high normal 6-20 (mg/dL) Final Creatinine 07/21/2023 10:55:35 1.4 Above high normal 0.6-1.2 (mg/dL) Final Glomerular filtration rate/1.73 sq M.predicted [Volume Rate/Area] in Serum, Plasma or Blood by Creatinine-based formula (CKD-EPI) 07/21/2023 10:55:35 51 Below low normal >=60 (mL/min) Final eGFR is calculated based on the CKD-EPI 2020 equation SODIUM 07/21/2023 10:55:35 137 135-146 (m mol/L) Final Potassium 07/21/2023 10:55:35 4.7 3.5-5.1 (m mol/L) Final Cl 07/21/2023 10:55:35 99 98-107 (mm ol/L) Final CO2 07/21/2023 10:55:35 28 22-32 (mmo l/L) Final Anion gap 07/21/2023 10:55:35 10 7-15 (mmol /L) Final Glucose 07/21/2023 10:55:35 118 70-120 (mg /dL) Final Albumin 07/21/2023 10:55:35 3.9 3.8-5.0 (g /dL) Final AST (Aspartate aminotransferase) 07/21/2023 10:55:35 21 10-50 (U/L) Final Alk Phos 07/21/2023 10:55:35 93 35-130 (U/ L) Final Bilirubin, Total 07/21/2023 10:55:35 0.4 <=1 .2 (mg/dL) Final Calcium 07/21/2023 10:55:35 9.5 8.4-10.2 ( mg/dL) Final Protein 07/21/2023 10:55:35 7.5 6.0-8.3 (g /dL) Final ALT (Alanine aminotransferase) 07/21/2023 10:55:35 20 10-50 (U/L) Final Performing Location [facility] [place] [address]
--- OUTSIDE RECORDS SUMMARY | 2023-09-01 04:43 | External Medical Summary | Summary of Care ---
Author Name Unknown Organization [facility] Address [address] [place] [address] Phone [phone] Care Team Providers Care Pneumatic Tool Repairer Name Role Phone Rhianna Huitron DO Primary Care Provider [phone] Reason for Visit * Precert (Within 10 days (routine)) - Authorized Specialty Diagnoses / Procedures Referred By Contac t Referred To Contact Diagnoses Malignant neoplasm of prostate (HCC) Procedures FL LEUPROLIDE ACETATE SUSPNSION Vinay Sexton MD [address] [place] [address] Vinay Sexton MD [address] [place] [address] Referral ID Status Reason Start Date Expiration Date V isits Requested Visits Authorized [id number] Authorized Precert 03/31/2023 03/30/2024 [id number] Encounter Details Date Type Department Care Team (Late st Contact Info) Description 08/17/2023 2:00 PM EST Nurse Only Urology, [facility] [address] [place] [address] Nurse [place] Urology [place] [address] [place] [address] Allergies Active Allergy Reactions Criticality Noted Date [...] cancer (HCC) 30 mg IM ONCE 08/17/2023 08/17/2023 Ended documented as of this encounter (statuses as [...] glucose 12/16/2005 Macular degeneration 12/02/1999 DISC DIS [id number] documented as of this encounter (statuses as [...] colonoscopy in 5 years ARTHRITIS,RHEUMATOID 07/07/2006 016 [id number] 07/07/200611/01 Overview: Renamed Per Clinical Trials Billing Project. Pt is a participant in the [facility] (Consortium of Rheumatology Researchers of [facility]) national data collection study. For further information please call Dr Hari Clark or Julia White, RN, CCRC at [phone] [facility] RESEARCH OTHER*[id number] 07/07/2006 01/28/2010 Overview: Renamed Per Clinical Trials Billing Project. Pt is a participant in the [facility] ([facility] of Rheumatology Researchers of [facility]) national data collection study. For further information please call Dr Hari Clark or Julia White, RN, CCRC at [phone] Hearing loss 12/02/1999 03/29/2013 documented as of this encounter (statuses as of 08/17/2023) Immunizations Name Administration Dates Next Due COVID-19 mRNA, LNP-s, No Pre serve, 2-Dose Series (Invieo) 06/14/2021,10/10/2020,09/12/2020 COVID-19, LNP-s, No Preserve , Yousuf-sucrose, [...] 9:30 AM EST Pharmacy Pharmacy Hematology Oncology [address] [address] [facility] [place] [facility]Onc [facility] [place] [address] 08/18/2023 11:00 AM EST Laboratory Laboratory [facility] [address] [place] [address] [place], [facility] [address] [place] [address] 09/09/2023 11:15 AM EST Office Visit Hematology/Oncology [facility] [address] [place] [address] Patrice Puente MD [address] [place] [address] 09/10/2023 9:40 AM EST Office Visit Rheumatology [place] [id number] [place] [address] Mendel Wilson MD [facility] [place] [address] 09/11/2023 9:15 AM EST Telemedicine Urology Samy Bhatt [address] [place] [address] Vinay Sexton MD [address] [place] [address] 7, Telemed [facility] Urology Ex Rm [address] [facility] [place] [address] 10/30/2023 9:30 AM EDT Office Visit [facility] [address] [place] [facility] [place] [phone] Rhianna Huitron DO [address] [facility] [place] [address] 11/16/2023 10:30 AM EDT Nurse Only Urology, [facility] [address] [facility] [place] [address] [facility], Nurse Urology [facility] [address] [facility] [place] [address] Scheduled Procedures Name Priority Associated Diagnoses Date/Ti me COLONOSCOPY FLEXIBLE PROXIMAL DIAGNOSTIC Recall Hx of colonic polyps Health Maintenance Due Date Last Done Comments CKD PHOS USE SMARTSET 93545 02/23/1963 Hepatitis B (1 of 3 - [...] Additional history exists CKD HGB USE SMARTSET 53536 07/06/202407/06, 07/06/2023, 06/22/2023, Additional history exists DTaP,Tdap,and Td Vaccines (3 - Td or Tdap) 12/04/2026 12/04/2016, 12/03/2006, 12/15/1996, Additional history exists Pneumococcal Vaccine: 65+ Years Completed 10/02/2014, 09/01/2011, 07/07/2006 Zoster Vaccines Completed 01/05/2020, 08/05, 10/02/2014 VITAMIN D LEVEL ONCE IN A LIFETIME-USE SMARTSET# 21567 Completed 05/27/2021, 09/07/2019, 01/10/2019, Additional history exists [...] tract symptoms (LUTS) documented in this encounter Administered Medications Inactive Administered Medications - up to 3 most recent administrations Medication Order MAR Action Action Date Dose Rate Site Leuprolide Acetate (4 Month) (Lupron) inj 30 mg 30 mg, Intramuscular, ONCE, On 08/17/23 at 1745, For 1 dose Given 08/17/2023 5:18 PM EST 30 mg Ventrogluteal Right documented in this encounter Care Teams Pneumatic Tool Repairer Relationship Specialty Start Date End Date Rhianna Huitron DO [address] [employer] [place] [id number] PCP - General Family Medicine 07/11/19 documented as of this encounter
--- OUTSIDE RECORDS SUMMARY | 2023-09-01 04:43 | External Medical Summary | Summary of Care ---
Author Name Unknown Organization [facility] Address [address] [facility] [place] [address] Phone [phone] Care Team Providers Care Tying In Machine Operator Name Role Phone Rhianna Huitron DO Primary Care Provider [phone] Reason for Visit * Precert (Within 10 days (routine)) - Authorized Specialty Diagnoses / Procedures Referred By Contac t Referred To Contact Diagnoses Malignant neoplasm of prostate (HCC) Procedures OH LEUPROLIDE ACETATE SUSPNSION Vinay Sexton MD [address] [place] [address] Vinay Sexton MD [address] [place] [address] Referral ID Status Reason Start Date Expiration Date V isits Requested Visits Authorized [id number] Authorized Precert 03/31/2023 03/30/2024 999 [id number] Encounter Details Date Type Department Care Team (Late st Contact Info) Description 08/17/2023 2:00 PM EST Nurse Only Urology, [facility] [address] [place] [address] Nurse [facility] [place] [address] [place] [address] Allergies Active Allergy Reactions Criticality Noted Date [...] glucose 12/16/2005 Macular degeneration 12/02/1999 DISC DIS [id number] documented as of this encounter (statuses as [...] colonoscopy in 5 years ARTHRITIS,RHEUMATOID 07/07/2006 016 [id number] 07/07/200611/01 Overview: Renamed Per Clinical Trials Billing Project. Pt is a participant in the [facility] (Consortium of Rheumatology Researchers of [facility]) national data collection study. For further information please call Dr Hari Clark or Julia White, RN, CCRC at [phone] [facility] RESEARCH OTHER*[id number] 07/07/2006 01/28/2010 Overview: Renamed Per Clinical Trials Billing Project. Pt is a participant in the [facility] (Consortium of Rheumatology Researchers of [facility]) national data collection study. For further information please call Dr Hari Clrak or Julia White, RN, CCRC at [phone] Hearing loss 12/02/1999 03/29/2013 documented as of this encounter (statuses as of 08/17/2023) Immunizations Name Administration Dates Next Due COVID-19 mRNA, LNP-s, No Pre serve, 2-Dose Series (fluid Operations) 06/14/2021,10/10/2020,09/12/2020 COVID-19, LNP-s, No Preserve , Yousuf-sucrose, [...] Patient tolerated well. documented in this encounter Plan of Treatment Upcoming Encounters Date Type Department Care Team (Late st Contact Info) Description 08/18/2023 9:30 AM EST Pharmacy Pharmacy Hematology Oncology [address] [address] [facility] [address] [place] [address] 08/18/2023 11:00 AM EST Laboratory Laboratory [facility] [address] [place] [phone] [facility] [address] [place] [address] 09/09/2023 11:15 AM EST Office Visit Hematology/Oncology [facility] [address] [place] [address] Patrice Puente MD [address] [place] [address] 09/10/2023 9:40 AM EST Office Visit Rheumatology [place] [address] [place] [address] Mendel Wilson MD [address] [place] [address] 09/11/2023 9:15 AM EST Telemedicine Urology Samy Bhatt [address] [place] [address] Vinay Sexton MD [address] [place] [address] 7, [facility] [address] [place] [address] 10/30/2023 9:30 AM EDT Office Visit [facility] [address] [place] [phone] Rhianna Huitron DO [address] [place] [address] 11/16/2023 10:30 AM EDT [facility] [address] [place] [address] Nurse [facility] [place] [address] [place] [address] Scheduled Procedures Name Priority Associated Diagnoses Date/Ti me COLONOSCOPY FLEXIBLE PROXIMAL DIAGNOSTIC Recall Hx of colonic polyps Health Maintenance Due Date Last Done Comments CKD PHOS USE SMARTSET 55947 02/23/1963 Hepatitis B (1 of 3 - [...] Additional history exists CKD HGB USE SMARTSET 12013 07/06/202407/06, 07/06/2023, 06/22/2023, Additional history exists DTaP,Tdap,and Td Vaccines (3 - Td or Tdap) 12/04/2026 12/04/2016, 12/03/2006, 12/15/1996, Additional history exists Pneumococcal Vaccine: 65+ Years Completed 10/02/2014, 09/01/2011, 07/07/2006 Zoster Vaccines Completed 01/05/2020, 08/05, 10/02/2014 VITAMIN D LEVEL ONCE IN A LIFETIME-USE SMARTSET# 08004 Completed 05/27/2021, 09/07/2019, 01/10/2019, Additional history exists [...] (LUTS) documented in this encounter Care Teams Tying In Machine Operator Relationship Specialty Start Date End Date Rhianna Huitron DO [address] [place] [address] PCP - General Family Medicine 07/11/19 documented as of this encounter
--- OUTSIDE RECORDS SUMMARY | 2023-09-01 04:43 | External Medical Summary | Summary of Care ---
Author Name Unknown Organization [facility] Address [address] [place] [address] Phone [phone] Care Team Providers Care Jig Worker Name Role Phone Rhianna Huitron DO Primary Care Provider [phone] Reason for Visit * Reason Comments Medication Management Encounter Details Date Type Department Care Team (Late st Contact Info) Description 07/21/2023 9:30 AM [facility] Pharmacy Pharmacy Hematology [facility] [address] [place] [address] [facility] Hem/Onc [address] [place] [address] Prostate cancer (HCC)* Allergies Active Allergy Reactions Criticality Noted Date Comments Brent Inhibitors Cough Low 11/26/2017 Alendronate Sodium Muscle pain 04/11/2019 Heartburn, constipation, joint pain Misoprostol Diarrhea 08/08/2003 Niacin Er 11/26/2010 Gas, hot flashes Pollen 01/01/2018 Watery eyes, sneezing Pravastatin 02/26/2007 Upset stomach, all .Statins Simvastatin 02/26/2007 Upset stomach documented as of this encounter (statuses as of 07/21/2023) Medications Medication Sig Dispensed Refills Start Date [...] as of this encounter (statuses as of 07/21/2023) Active Problems Problem Noted Date Diagnosed Date [...] glucose 12/16/2005 Macular degeneration 12/02/1999 DISC DIS [id number] documented as of this encounter (statuses as of 07/21/2023) Resolved Problems Problem Noted Date Diagnosed Date Resolved Date Chronic kidney disease, stage 3a 04/13/2023 07/16/2023 Overview: Per CKD protocol Prediabetes 11/08/2018 04/17/2022 Overview: Per Prediabetes protocol #1 Morbid (severe) obesity due to excess calories 08/19/2017 03/09/2019 Infective otitis externa 09/08/2012 Cough 07/03/2012 08/18/2012 Benign neoplasm of colon 05/10/2007 Overview: adenomatous repeat colonoscopy in 5 years ARTHRITIS,RHEUMATOID 07/07/2006 016 [id number] 07/07/200611/01 Overview: Renamed Per Clinical Trials Billing Project. Pt is a participant in the [employer] (Consortium of Rheumatology Researchers of [place]) national data collection study. For further information please call Dr Hari Clark or Julia White, RN, CCRC at [phone] [facility] RESEARCH OTHER*[id number] 07/07/2006 01/28/2010 Overview: Renamed Per Clinical Trials Billing Project. Pt is a participant in the [employer] (Consortium of Rheumatology Researchers of [place]) national data collection study. For further information please call Dr Hari Clark or Julia White, RN, CCRC at [phone] Hearing loss 12/02/1999 03/29/2013 documented as of this encounter (statuses as of 07/21/2023) Immunizations Name Administration Dates Next Due COVID-19 [...] this encounter Progress Notes * Enedina Ordoñez, [facility] - 07/21/2023 12:24 PM EST MEDICATION THERAPY MANAGEMENT ABIRATERONE TREATMENT PROGRESS NOTE Markus Wharton (Ron) [phone] Patient Phone Numbers Preferred Lab: [facility] Communication: Spoke to: Patient Treatment: Medication: Abiraterone (Zytiga) Indication/Staging/Diagnosis Code: prostate cancer/ C61 Dose: 1000mg daily Administration: empty stomach (1 hour before or 2 hours after a meal) Start Date: 04/27/23 Primary Mortgage Professional/Oncologist: Dr. Leon Puente Additional Therapy: Prednisone 5mg daily Lupron Supportive Care Meds: None Prophylactic Meds: Losartan 12.5mg daily HCTZ 12.5mg daily Treatment History: 04/08/23-present: Lupron Interval History: Pt has chronic RA resolved with MTX and APAP as needed. Per PCP OV 06/22/23, pt to HOLD HCTZ due to orthostatic hypotension States BP has improved and denies hyper- or hypotension and continued follow up with PCP States fatigue improving and is not as tired throughout the day No other concerns, tolerating therapy well Changes to medication list since last visit? No Assessment and Plan: BUN elevated Creatinine declining Advised pt to increase fluid intake Will monitor closely All other labs stable Continue BP monitoring and close follow up with PCP for management Reviewed resting when needed, working when able, and to contact office if fatigue affecting QoL or ADLs Continue current therapy Lab monitoring extended to monthly due to stable labs and PI recommendations (scheduled 08/18 @1100) Assessment of compliance: compliant Assessment of adverse effects attributed to drug therapy: Edema/fluid retention - absent HTN - absent Joint swelling or discomfort - absent Arthralgias/Myalgias - present, chronic Diarrhea/Constipation - absent Dose adjustment needed based on lab or adverse drug reaction? No Follow up: 08/18 Enedina Ordoñez, PharmD, BCOP Clinical Pharmacist, [facility] Oral Chemotherapy [facility] 07/21/2023, 1:43 PM Monitoring Parameters: Estimated CrCl Serum creatinine: 1.4 mg/dL (H) 07/21/23 1055 Estimated creatinine clearance: 64.6 mL/min (A) Hepatitis [...] Pertinent labs: Latest Reference Range & Units 06/22/23 10:38 07/06/23 11:17 07/21/23 10:55 BUN 6 - 20 mg/dL 25 (H) 24 (H) 27 (H) Creatinine 0.6 - 1.2 mg/dL 1.6 (H) 1.6 (H) 1.4 (H) Estimated Glomerular Filtration Rate >=60 mL/min 45 (L) 43 (L) 51 (L) Latest Reference Range & Units 06/22/23 10:38 07/06/23 11:17 07/21/23 10:55 Albumin 3.8 - 5.0 g/dL 3.8 3.9 3.9 AST 10 - 50 U/L 17 17 21 ALT 10 - 50 U/L 18 15 20 Alkaline Phosphatase 35 - 130 U/L 84 89 93 Bilirubin, Total <=1.2 mg/dL 0.4 0.5 0.4 Time Spent on Encounter: 6 - 10 minutes Encounter Group: Oncology Encounter Interventions Item Category: Oral Chemotherapy Abiraterone Problem/Rationale: Safety: Needs additional monitoring - Medication Requires monitoring Pharmacist Intervention(s): Care coordination, Lab monitoring, Non- pharmacological intervention provided, and Toxicity monitoring Magnitude of Intervention: Monitoring with direction (Level 1) documented in this encounter Plan of Treatment Upcoming Encounters Date Type Department Care Team (Late st Contact Info) Description 08/14/2023 11:00 AM EST Nurse Only Urology, Bentley Tucker [place] [address] [place] [address] Garrett Nurse Urology [facility] [address] [place] [address] 08/18/2023 9:30 AM EST Pharmacy Pharmacy Hematology On[facility] [address] [place] [address] [facility] Hem/Onc [address] [place] [address] 08/18/2023 11:00 AM EST Laboratory [facility] [place] [address] [place] [phone] [facility] [address] [facility] [place] [address] 09/09/2023 11:15 AM EST Office Visit Hematology/Oncology [facility] Faby [place] [address] [place] [address] Patrice Puente MD [address] [place] [address] 09/10/2023 9:40 AM EST Office Visit Rheumatology [place] [address] [place] [address] Mendel Wilson MD [facility] [facility] [place] [address] 09/11/2023 9:15 AM EST Telemedicine Urology Samy Bhatt [address] [place] [address] Vinay Sexton MD [address] [place] [address] 7, Telemed [facility] Urology Ex Rm [address] [place] [address] 10/30/2023 9:30 AM EDT Office Visit [facility] [address] [place] [address] Rhianna Huitron DO [address] [place], [place] [id number] Scheduled Procedures Name Priority Associated Diagnoses Date/Ti me COLONOSCOPY FLEXIBLE PROXIMAL DIAGNOSTIC Recall Hx of colonic polyps Health Maintenance Due Date Last Done Comments CKD PHOS USE SMARTSET 72474 02/23/1963 Hepatitis B (1 of 3 - [...] Foot Exam 12/25/2023 12/24/2022 GFR 01/20/2024 07/21/2023, 12/0 11/2022, 06/22/2023, Additional history exists COLONOSCOPY-EVERY 5 YRS AGES 18-100 01/22/2024 01/21/2019, 01/21/2019, 05/10/2013, Additional history exists Diabetic Eye Exam 01/31/2024 01/30/2023, , 01/25/2021, Additional history exists CKD HGB USE SMARTSET 03771 07/06/202407/06, 07/06/2023, 06/22/2023, Additional history exists DTaP,Tdap,and Td Vaccines (3 - Td or Tdap) 12/04/2026 12/04/2016, 12/03/2006, 12/15/1996, Additional history exists Pneumococcal Vaccine: 65+ Years Completed 10/02/2014, 09/01/2011, 07/07/2006 Zoster Vaccines Completed 01/05/2020, 08/05, 10/02/2014 VITAMIN D LEVEL ONCE IN A LIFETIME-USE SMARTSET# [id number] Completed 05/27/2021, 09/07/2019, 01/10/2019, Additional history exists [...] prostate documented in this encounter Care Teams Jig Worker Relationship Specialty Start Date End Date Rhianna Huitron DO [address] [facility] [address] PCP - General Family Medicine 07/11/19 documented as of this encounter
--- OUTSIDE RECORDS SUMMARY | 2023-09-01 04:43 | External Medical Summary | Summary of Care ---
Author Name Unknown Organization [facility] Address [address] [facility] [address] Phone [phone] Care Team Providers Care Public Relations Account Supervisor Name Role Phone Rihanna Huitron DO Primary Care Provider Reason for Visit * Reason Comments Outpatient Testing Encounter Details Date Type Department Care Team (Late st Contact Info) Description 07/21/2023 11:00 AM EST Laboratory [facility] [place] [address] [place] [phone] [facility] Lab [address] [place] [address] Prostate cancer (HCC) Allergies Active Allergy Reactions Criticality Noted Date [...] glucose 12/16/2005 Macular degeneration 12/02/1999 DISC DIS [id number] documented as of this encounter (statuses as [...] colonoscopy in 5 years ARTHRITIS,RHEUMATOID 07/07/2006 016 [id number] 07/07/200611/01 Overview: Renamed Per Clinical Trials Billing Project. Pt is a participant in the [employer] (Consortium of Rheumatology Researchers [place] national data collection study. For further information please call Dr Hari Clark or Julia White, RN, CCRC at [phone] [facility] RESEARCH OTHER*[id number] 07/07/2006 01/28/2010 Overview: Renamed Per Clinical Trials Billing Project. Pt is a participant in the [employer] (Consortium of Rheumatology Researchers of [place] national data collection study. For further information please call Dr Hari Clark or Julia White, RN, CCRC at [phone] Hearing loss 12/02/1999 03/29/2013 documented as of this encounter (statuses as of 07/21/2023) Immunizations Name Administration Dates Next Due COVID-19 mRNA, LNP-s, No Pre serve, 2-Dose Series (0xdata) 06/14/2021,10/10/2020,09/12/2020 COVID-19, LNP-s, No Preserve , Yousuf-sucrose, [...] on file documented as of this encounter Plan of Treatment Upcoming Encounters Date Type Department Care Team (Late st Contact Info) Description 08/14/2023 11:00 AM EST Nurse Only Urology, [facility] [address] [place] [address] [facility] [address] [place] [address] 09/09/2023 11:15 AM EST Office Visit Hematology/Oncology [facility] [address] [facility] [place] [address] Patrice Puente MD [address] [facility] [place] [address] 09/10/2023 9:40 AM EST Office Visit Rheumatology [place] [phone] [place] [address] Mendel Wilson MD [address] [place] [address] 09/11/2023 9:15 AM EST Telemedicine Urology Samy Bhatt [address] [place] [address] Vinay Sexton MD [address] [place] [address] 7, Telemed [facility] Ex Rm [address] [place] [address] 10/30/2023 9:30 AM EDT Office Visit [facility] [address] [place] [phone] Rhianna Huitron, [address] [place] [address] Pending Results Name Type Priority Associated Diagnoses Date /Time COMPREHENSIVE METABOLIC PANEL Lab STAT Prostate cancer (HCC) 07/21/2023 10:55 AM EST Scheduled Procedures Name Priority Associated Diagnoses Date/Ti me COLONOSCOPY FLEXIBLE PROXIMAL DIAGNOSTIC Recall Hx of colonic polyps Health Maintenance Due Date Last Done Comments CKD PHOS USE SMARTSET 04679 02/23/1963 Hepatitis B (1 of 3 - [...] exists Diabetic Foot Exam 12/25/2023 12/24/2022 GFR 01/05/2024 07/06/2023, 06/04, 06/08/2023, Additional history exists COLONOSCOPY-EVERY 5 YRS AGES 18-100 01/22/2024 01/21/2019, 01/21/2019, 05/10/2013, Additional history exists Diabetic Eye Exam 01/31/2024 01/30/2023, , 01/25/2021, Additional history exists CKD HGB USE SMARTSET 54529 07/06/202407/06, 07/06/2023, 06/22/2023, Additional history exists DTaP,Tdap,and Td Vaccines (3 - Td or Tdap) 12/04/2026 12/04/2016, 12/03/2006, 12/15/1996, Additional history exists Pneumococcal Vaccine: 65+ Years Completed 10/02/2014, 09/01/2011, 07/07/2006 Zoster Vaccines Completed 01/05/2020, 08/05, 10/02/2014 VITAMIN D LEVEL ONCE IN A LIFETIME-USE SMARTSET# [id number] Completed 05/27/2021, 09/07/2019, 01/10/2019, Additional history exists GARDASIL-HPV IMMUNIZATION SERIES Aged Out No longer eligible based on patient's age to complete this topic MENINGOCOCCAL (MENACTRA/MENVEO) Aged Out No longer eligible based on patient's age to complete this topic documented as of this encounter Medical Devices Not on filedocumented as of this encounter Visit Diagnoses Diagnosis Prostate cancer (HCC) Malignant neoplasm of prostate documented in this encounter Care Teams Public Relations Account Supervisor Relationship Specialty Start Date End Date Rhianna Huitron DO [address] [place] [address] PCP - General Family Medicine 07/11/19 documented as of this encounter
--- OUTSIDE RECORDS SUMMARY | 2023-09-01 04:43 | External Medical Summary ---
Author Name Unknown Address Unknown Organization K09:[facility] [address] [place] [address] Laboratory Report Ordering Provider Test Date Status JOHNATHON CASILLAS 08/20/2023 10:46:21 Final Every two weeks for three mo nths, then every month (patients with moderate hep impairment every week for one month, every two weeks for two months, then every month) Observation Date Value Abnormality Reference (Units ) Status BUN 08/20/2023 10:46:21 29 Above high normal 6-20 (mg/dL) Final Creatinine 08/20/2023 10:46:21 1.4 Above high normal 0.6-1.2 (mg/dL) Final Glomerular filtration rate/1.73 sq M.predicted [Volume Rate/Area] in Serum, Plasma or Blood by Creatinine-based formula (CKD-EPI) 08/20/2023 10:46:21 53 Below low normal >=60 (mL/min) Final eGFR is calculated based on the CKD-EPI 2020 equation SODIUM 08/20/2023 10:46:21 135 135-146 (m mol/L) Final Potassium 08/20/2023 10:46:21 4.3 3.5-5.1 (m mol/L) Final Cl 08/20/2023 10:46:21 100 98-107 (mm ol/L) Final CO2 08/20/2023 10:46:21 25 22-32 (mmo l/L) Final Anion gap 08/20/2023 10:46:21 10 7-15 (mmol /L) Final Glucose 08/20/2023 10:46:21 142 Above high normal 70 -120 (mg/dL) Final Albumin 08/20/2023 10:46:21 3.8 3.8-5.0 (g /dL) Final AST (Aspartate aminotransferase) 08/20/2023 10:46:21 18 10-50 (U/L) Fin al Alk Phos 08/20/2023 10:46:21 95 35-130 (U/ L) Final Bilirubin, Total 08/20/2023 10:46:21 0.4 <=1 .2 (mg/dL) Final Calcium 08/20/2023 10:46:21 9.2 8.4-10.2 ( mg/dL) Final Protein 08/20/2023 10:46:21 7.4 6.0-8.3 (g /dL) Final ALT (Alanine aminotransferase) 08/20/2023 10:46:21 15 10-50 (U/L) Joe jones Performing Location [facility] [address] [place] [address]
--- OUTSIDE RECORDS SUMMARY | 2023-09-01 04:43 | External Medical Summary | Summary of Care ---
Author Name Unknown Organization [facility] Address [address] [facility] [address] Phone [phone] Care Team Providers Care Investigation Clerk Name Role Phone Rhianna Huitron DO Primary Care Provider Reason for Visit * Reason Comments Outpatient Testing Encounter Details Date Type Department Care Team (Late st Contact Info) Description 08/20/2023 11:00 AM EST Laboratory Laboratory [place] [address] [place] [phone] [facility] Lab [address] [place] [address] Prostate cancer (HCC) Allergies Active Allergy Reactions [...] glucose 12/16/2005 Macular degeneration 12/02/1999 DISC DIS [id number] documented as of this encounter (statuses as [...] colonoscopy in 5 years ARTHRITIS,RHEUMATOID 07/07/2006 016 [id number] 07/07/200611/01 Overview: Renamed Per Clinical Trials Billing Project. Pt is a participant in the [employer] (Consortium of Rheumatology Researchers [place]) national data collection study. For further information please call Dr Hari Clark or Julia White, RN, CCRC at [phone] [employer] RESEARCH OTHER*[id number] 07/07/2006 01/28/2010 Overview: Renamed Per Clinical Trials Billing Project. Pt is a participant in the [employer] (Consortium of Rheumatology [place]) national data collection study. For further information please call Dr Hari Clark or Julia White, RN, CCRC at [phone] Hearing loss 12/02/1999 03/29/2013 documented as of [...] Team (Late st Contact Info) Description 09/09/2023 11:15 AM EST Office Visit Hematology/Oncology [facility] [address] [facility] [place] [address] Patrice Puente MD [address] [facility] [place] [address] 09/10/2023 9:40 AM EST Office Visit Rheumatology [address] [place] [address] Mendel Wilson MD [facility] [place] [address] 09/11/2023 9:15 AM EST Telemedicine Urology Samy Bhatt [address] [place] [place] [address] Vinay Sexton MD [address] [place] [address] [place] [address] 7, Telemed [facility] Urology Ex Rm [address] [place] [address] 10/30/2023 9:30 AM EDT Office Visit [facility] [address] [place] [phone] Rhianna Huitron DO [address] [place] [address] 11/16/2023 10:30 AM EDT [facility] [address] [place] [address] Tucker, Nurse Urology [facility] [address] [place] [address] Pending Results Name Type Priority Associated Diagnoses Date /Time COMPREHENSIVE METABOLIC PANEL Lab STAT Prostate cancer (HCC) 08/20/2023 10:46 AM EST Scheduled Procedures Name Priority Associated Diagnoses Date/Ti me COLONOSCOPY FLEXIBLE PROXIMAL DIAGNOSTIC Recall Hx of colonic polyps Health Maintenance Due Date Last Done Comments CKD PHOS USE SMARTSET 54695 02/23/1963 Hepatitis B (1 of 3 - Risk 3-dose series) 2006 DXA Scan 01/10/2021 01/10/2019, 12/2005, 07/07/2006 Depression Screening 03/13/2021 03/13/2020 COVID-19 Vaccine ( season) 2023 05/23/2022, 12/25/2021, 06/14/2021, Additional history exists Influenza Vaccine (FLU shot) (#1) 2023 05/08/2022, 05/07/2021, 04/17/2020, Additional history exists Albumin/Creatinine Ratio 04/10/2023 04/10/2022, 0510/2006 *BISPHONATE OR OTHER ACCEPTABLE MEDICATION NEEDED FOR OSTEOPOROSIS (REFER TO SMARTSET #1146) 04/29/2023 HbA1c 12/21/2023 06/22/2023, 052 11/2022, 11/15/2022, Additional history exists Diabetic Foot Exam 12/25/2023 12/24/2022 GFR 01/20/2024 07/21/2023, 1211/2022, 06/22/2023, Additional history exists COLONOSCOPY-EVERY 5 YRS AGES 18-100 01/22/2024 01/21/2019, 01/21/2019, 05/10/2013, Additional history exists Diabetic Eye Exam 01/31/2024 01/30/2023, , 01/25/2021, Additional history exists CKD HGB USE SMARTSET 72096 07/06/202407/06, 07/06/2023, 06/22/2023, Additional history exists DTaP,Tdap,and Td Vaccines (3 - Td or Tdap) 12/04/2026 12/04/2016, 12/03/2006, 12/15/1996, Additional history exists Pneumococcal Vaccine: 65+ Years Completed 10/02/2014, 09/01/2011, 07/07/2006 Zoster Vaccines Completed 01/05/2020, 08/05, 10/02/2014 VITAMIN D LEVEL ONCE IN A LIFETIME-USE SMARTSET# [id number] Completed 05/27/2021, 09/07/2019, 01/10/2019, Additional history exists [...] prostate documented in this encounter Care Teams Investigation Clerk Relationship Specialty Start Date End Date Rhianna Huitron DO [address] [place] [facility] [place] [address] PCP - General Family Medicine 07/11/19 documented as of this encounter
--- OUTSIDE RECORDS SUMMARY | 2023-09-01 04:43 | External Medical Summary | Summary of Care ---
Author Name Unknown Organization [facility] Address [address] [place] [address] Phone [phone] Care Team Providers Care Mechanic/Welder Name Role Phone Kat Huitron DO Primary Care Provider Reason for Visit * Reason Comments eRx-Medication Refill Encounter Details Date Type Department Care Team (Late st Contact Info) Description 07/18/[address] [facility], [place] [address] [place] [address] Kat Huitron DO [address] [place] [address] Allergies Active Allergy Reactions Criticality Noted Date Comments Brent Inhibitors Cough Low 11/26/2017 Alendronate Sodium Muscle pain 04/11/2019 Heartburn, constipation, joint pain Misoprostol Diarrhea 08/08/2003 Niacin Er 11/26/2010 Gas, hot flashes Pollen 01/01/2018 Watery eyes, sneezing Pravastatin 02/26/2007 Upset stomach, all .Statins Simvastatin 02/26/2007 Upset stomach documented as of this encounter (statuses as of 07/19/2023) Medications Medication Sig Dispensed Refills Start Date [...] 01/02/2023 Active Methotrexate Sodium 2.5 MG Oral TabletIndication s:Arthritis, rheumatoid (HCC) Take 5 tablets by mouth once weekly 65 Tablet 0 04/01/2023 Active predniSONE 5 MG Oral Tablet (Deltasone)Indic [...] MOUTH DAILY 45 Tablet 1 07/19/2023 Active Losartan Potassium 25 MG Oral Tablet (Cozaar) TAKE 1/2 TABLET BY MOUTH EVERY DAY 45 Tablet 1 01/23/2023 3 Discontinued documented as of this encounter (statuses as of 07/19/2023) Active Problems Problem Noted Date Diagnosed Date [...] glucose 12/16/2005 Macular degeneration 12/02/1999 DISC DIS [id number] documented as of this encounter (statuses as of 07/19/2023) Resolved Problems Problem Noted Date Diagnosed Date Resolved Date Chronic kidney disease, stage 3a 04/13/2023 07/16/2023 Overview: Per CKD protocol Prediabetes 11/08/2018 04/17/2022 Overview: Per Prediabetes protocol #1 Morbid (severe) obesity due to excess calories 08/19/2017 03/09/2019 Infective otitis externa 09/08/2012 Cough 07/03/2012 08/18/2012 Benign neoplasm of colon 05/10/2007 Overview: adenomatous repeat colonoscopy in 5 years ARTHRITIS,RHEUMATOID 07/07/2006 016 [id number] 07/07/200611/01 Overview: Renamed Per Clinical Trials Billing Project. Pt is a participant in the [employer] (Consortium of Rheumatology Researchers [place]) national data collection study. For further information please call Dr Hari Clark or Julia White, RN, CCRC at [phone] [employer] RESEARCH OTHER*[id number] 07/07/2006 01/28/2010 Overview: Renamed Per Clinical Trials Billing Project. Pt is a participant in the [employer] (Consortium of Rheumatology [place] national data collection study. For further information please call Dr Hari Clark or Julia White RN, CCRC at [phone] Hearing loss 12/02/1999 03/29/2013 documented as of this encounter (statuses as of 07/19/2023) Immunizations Name Administration Dates Next Due COVID-19 [...] encounter Miscellaneous Notes * Telephone Encounter - Steve Gutierrez RPh - 07/19/2023 8:54 AM ESTSigned Prescriptions: Disp Refills Losartan Potassium 25 MG Oral Tablet (Coza*45 Tab*1 Sig: TAKE 1/2 TABLET BY MOUTH DAILYAuthorizing Provider: KAT HUITRON User: STEVE GUTIERREZ------ documented in this encounter Plan of Treatment Upcoming Encounters Date Type Department Care Team (Late st Contact Info) Description 07/21/2023 9:30 AM EST Pharmacy Pharmacy Hematology Oncology [facility] [address] [place] [address] [facility] Hem/Onc [address] [place] [address] 07/21/2023 11:00 AM EST Laboratory Laboratory [facility] [address] [place] [phone] Fab[facility] Lab [facility] [address] [place] [address] 08/14/2023 11:00 AM EST Nurse Only Urology, [place] [facility] [address] [facility] [place] [address] Tucker, Nurse Urology [facility] [address] [place] [address] 09/09/2023 11:15 AM EST Office Visit Hematology/Oncology [facility] [address] [place] [address] Patrice Puente MD [address] [place] [address] 09/10/2023 9:40 AM EST Office Visit Rheumatology [facility] [address] [facility] [place] [address] Mendel Wilson MD [address] [place] [address] 09/11/2023 9:15 AM EST Telemedicine Urology Samy Bhatt [address] [place] [place] [address] Vinay Sexton MD [address] [place] [address] [place] [address] 7, Telemed [facility] Urology Ex Rm [address] [facility] [place] [address] 10/30/2023 9:30 AM EDT Office Visit [facility] [address] [place] [facility] [address] Kat Huitron, [address] [place] [facility] [place] [address] Scheduled Procedures Name Priority Associated Diagnoses Date/Ti me COLONOSCOPY FLEXIBLE PROXIMAL DIAGNOSTIC Recall Hx of colonic polyps Health Maintenance Due Date Last Done Comments CKD PHOS USE SMARTSET 72682 02/23/1963 Hepatitis B (1 of 3 - Risk 3-dose series) 2006 DXA Scan 01/10/2021 01/10/2019, 1212/2005, 07/07/2006 Depression Screening 03/13/2021 03/13/2020 COVID-19 Vaccine [...] Additional history exists CKD HGB USE SMARTSET 55860 07/06/202407/06, 07/06/2023, 06/22/2023, Additional history exists DTaP,Tdap,and Td Vaccines (3 - Td or Tdap) 12/04/2026 12/04/2016, 12/03/2006, 12/15/1996, Additional history exists Pneumococcal Vaccine: 65+ Years Completed 10/02/2014, 09/01/2011, 07/07/2006 Zoster Vaccines Completed 01/05/2020, 08/05, 10/02/2014 VITAMIN D LEVEL ONCE IN A LIFETIME-USE SMARTSET# [id number] Completed 05/27/2021, 09/07/2019, 01/10/2019, Additional history exists GARDASIL-HPV IMMUNIZATION SERIES Aged Out No longer eligible based on patient's age to complete this topic MENINGOCOCCAL (MENACTRA/MENVEO) Aged Out No longer eligible based on patient's age to complete this topic documented as of this encounter Medical Devices Not on filedocumented as of this encounter Care Teams Mechanic/Welder Relationship Specialty Start Date End Date Kat Huitron DO [address] [place] [address] PCP - General Family Medicine 07/11/19 documented as of this encounter
--- OUTSIDE RECORDS SUMMARY | 2023-09-01 04:43 | External Medical Summary | Summary of Care ---
Author Name Unknown Organization [facility] Address [address] [place] [address] Phone [phone] Care Team Providers Care Dairy Equipment Mechanic Name Role Phone Rhianna Huitron DO Primary Care Provider [phone] Reason for Visit * Reason Comments Medication Management Encounter Details Date Type Department Care Team (Late st Contact Info) Description 08/18/2023 9:30 [facility]ology [facility] [address] [place] [address] [facility] Hem/Onc [address] [place] [address] Prostate cancer (HCC)* Allergies Active Allergy Reactions Criticality Noted Date Comments Brent Inhibitors Cough Low 11/26/2017 Alendronate Sodium Muscle pain 04/11/2019 Heartburn, constipation, joint pain Misoprostol Diarrhea 08/08/2003 Niacin Er 11/26/2010 Gas, hot flashes Pollen 01/01/2018 Watery eyes, sneezing Pravastatin 02/26/2007 Upset stomach, all .Statins Simvastatin 02/26/2007 Upset stomach documented as of this encounter (statuses as of 08/18/2023) Medications Medication Sig Dispensed Refills Start Date [...] as of this encounter (statuses as of 08/18/2023) Active Problems Problem Noted Date Diagnosed Date [...] glucose 12/16/2005 Macular degeneration 12/02/1999 DISC DIS [id number] documented as of this encounter (statuses as of 08/18/2023) Resolved Problems Problem Noted Date Diagnosed Date [...] colonoscopy in 5 years ARTHRITIS,RHEUMATOID 07/07/2006 016 [id number] 07/07/200611/01 Overview: Renamed Per Clinical Trials Billing Project. Pt is a participant in the [employer] (Consortium of Rheumatology Researchers [place] national data collection study. For further information please call Dr Hari Clark or Julia White, RN, CCRC at [phone] [employer] RESEARCH OTHER*[id number] 07/07/2006 01/28/2010 Overview: Renamed Per Clinical Trials Billing Project. Pt is a participant in the [employer] (Consortium of Rheumatology Researchers [place] national data collection study. For further information please call Dr Hari Clark or Julia White RN, CCRC at [phone] Hearing loss 12/02/1999 03/29/2013 documented as of this encounter (statuses as of 08/18/2023) Immunizations Name Administration Dates Next Due COVID-19 [...] as of this encounter Progress Notes * Tammie Armstrong OSA - 08/18/2023 9:30 AM EST MEDICATION THERAPY MANAGEMENT ABIRATERONE TREATMENT PROGRESS NOTE Markus "Anival Wharton [id number] Patient Phone Numbers Preferred Lab: [facility] Communication: Patient left [facility] Treatment: Medication: Abiraterone (Zytiga) Indication/Staging/Diagnosis Code: prostate cancer/ C61 Dose: 1000mg daily Administration: empty stomach (1 hour before or 2 hours after a meal) Start Date: 04/27/23 Primary Plastic Fixture Builder/Oncologist: Dr. Leon Peunte [facility] left by patient this morning requesting lab appointment for today please be cancelled due to weather. Cancelled appointment for patient and sent MyG message asking patient when he would like to be rescheduled for KARLOS [employer] Pharmacy Hematology Oncology Oral Chemotherapy Clinic Medication Therapy Disease Management [facility] 08/18/23 8:12 AM Time Spent on Encounter: < 5 minutes Encounter Group: Oncology Encounter Interventions Item Category: Oral Chemotherapy Abiraterone Problem/Rationale: Safety: Needs additional monitoring - Medication Requires monitoring Pharmacist Intervention(s): Lab work requested Magnitude of Intervention: Monitoring with no interventions (Level 0) documented in this encounter Plan of Treatment Upcoming Encounters Date Type Department Care Team (Late st Contact Info) Description 08/20/2023 9:30 AM EST Pharmacy Pharmacy Hematology Oncology [facility] [address] [place] [address] [facility] Hem[facility]Onc [address] [place] [address] 08/20/2023 11:00 AM EST Laboratory Laboratory [facility] [address] [place] [phone] [place], [facility] [address] [place] [address] 09/09/2023 11:15 AM EST Office Visit Hematology/Oncology [facility] [address] [place] [address] Patrice Puente MD [address] [place] [address] 09/10/2023 9:40 AM EST Office Visit Rheumatology [place] [address] [facility] [place] [address] Mendel Wilson MD [address] [facility] [place] [address] 09/11/2023 9:15 AM EST Telemedicine Urology Samy Bhatt [address] [place] [place] [address] Vinay Sexton MD [address] [place] [place] [address] 7, Telemed [facility] Urology Ex Rm [address] [place] [address] 10/30/2023 9:30 AM EDT Office Visit [address] [place] [address] Rhianna Huitron, [address] [facility] [place] [address] 11/16/2023 10:30 AM EDT Nurse Only Urology, [place] [facility] [address] [place] [address] Tucker, Nurse Urology [facility] [address] [place] [address] Scheduled Procedures Name Priority Associated Diagnoses Date/Ti me COLONOSCOPY FLEXIBLE PROXIMAL DIAGNOSTIC Recall Hx of colonic polyps Health Maintenance Due Date Last Done Comments CKD PHOS USE SMARTSET 25907 02/23/1963 Hepatitis B (1 of 3 - [...] Additional history exists CKD HGB USE SMARTSET 98840 07/06/202407/06, 07/06/2023, 06/22/2023, Additional history exists DTaP,Tdap,and Td Vaccines (3 - Td or Tdap) 12/04/2026 12/04/2016, 12/03/2006, 12/15/1996, Additional history exists Pneumococcal Vaccine: 65+ Years Completed 10/02/2014, 09/01/2011, 07/07/2006 Zoster Vaccines Completed 01/05/2020, 08/05, 10/02/2014 VITAMIN D LEVEL ONCE IN A LIFETIME-USE SMARTSET# [id number] Completed 05/27/2021, 09/07/2019, 01/10/2019, Additional history exists [...] prostate documented in this encounter Care Teams Dairy Equipment Mechanic Relationship Specialty Start Date End Date Rhianna Huitron DO [address] [place] [address] PCP - General Family Medicine 07/11/19 documented as of this encounter
--- OUTSIDE RECORDS SUMMARY | 2023-09-01 04:43 | External Medical Summary | Summary of Care ---
Author Name Unknown Organization [facility] Address [address] [address] Phone [phone] Care Team Providers Care Grain Processor Name Role Phone Rhianna Huitron DO Primary Care Provider Reason for Visit * Reason Comments eRx-Medication Refill Encounter Details Date Type Department Care Team (Late st Contact Info) Description 08/08/2023 Refill Rheumatology [facility] [address] [facility] [place] [address] Alex Dempsey MD [address] [facility] [place] [address] Arthritis, rheumatoid (HCC) Allergies Active Allergy Reactions Criticality Noted Date Comments Brent Inhibitors Cough Low 11/26/2017 Alendronate Sodium Muscle pain 04/11/2019 Heartburn, constipation, joint pain Misoprostol Diarrhea 08/08/2003 Niacin Er 11/26/2010 Gas, hot flashes Pollen 01/01/2018 Watery eyes, sneezing Pravastatin 02/26/2007 Upset stomach, all .Statins Simvastatin 02/26/2007 Upset stomach documented as of this encounter (statuses as of 08/11/2023) Medications Medication Sig Dispensed Refills Start Date [...] 2.5 MG Oral TabletIndication s:Arthritis, rheumatoid (HCC) TAKE 5 TABLETS BY MOUTH ONCE WEEKLY 65 Tablet 1 08/11/2023 Active Methotrexate Sodium 2.5 MG Oral TabletIndication s:Arthritis, rheumatoid (HCC) Take 5 tablets by mouth once weekly 65 Tablet 0 04/01/2023 4 Discontinued documented as of this encounter (statuses as of 08/11/2023) Active Problems Problem Noted Date Diagnosed Date Diabetes mellitus with stage 3 chronic kidney di sease 07/13/2023 Overview: Per CKD protocol Prostate cancer 04/13/2023 Diabetes mellitus without complication 2 Dyslipidemia, goal LDL below 160 08/29/2019 Osteoporosis with symptom management only 2019 Morbid obesity with BMI of 40.0-44.9, adult 03/2019 Fuchs' corneal dystrophy 10/19/2018 History of colon [...] glucose 12/16/2005 Macular degeneration 12/02/1999 DISC DIS [id number] documented as of this encounter (statuses as of 08/11/2023) Resolved Problems Problem Noted Date Diagnosed Date Resolved Date Chronic kidney disease, stage 3a 04/13/2023 07/16/2023 Overview: Per CKD protocol Prediabetes 11/08/2018 04/17/2022 Overview: Per Prediabetes protocol #1 Morbid (severe) obesity due to excess calories 08/19/2017 03/09/2019 Infective otitis externa 09/08/2012 Cough 07/03/2012 08/18/2012 Benign neoplasm of colon 05/10/2007 Overview: adenomatous repeat colonoscopy in 5 years ARTHRITIS,RHEUMATOID 07/07/2006 016 [id number] 07/07/200611/01 Overview: Renamed Per Clinical Trials Billing Project. Pt is a participant in the [employer] ([employer]ortium of [employer] [place]) national data collection study. For further information please call Dr Hari Clark or Julia White, RN, CCRC at [phone] [employer] RESEARCH OTHER*[id number] 07/07/2006 01/28/2010 Overview: Renamed Per Clinical Trials Billing Project. Pt is a participant in the [employer] ([employer]ortium of [employer] [place]) national data collection study. For further information please call Dr Hari Clark or Julia White RN, CCRC at [phone] Hearing loss 12/02/1999 03/29/2013 documented as of this encounter (statuses as of 08/11/2023) Immunizations Name Administration Dates Next Due COVID-19 [...] encounter Miscellaneous Notes * Telephone Encounter - Rodrigo Davis RPh - 08/11/2023 8:32 AM ESTSigned Prescriptions: Disp Refills Methotrexate Sodium 2.5 MG Oral Tablet 65 Tab*1 Sig: TAKE 5 TABLETS BY MOUTH ONCE WEEKLYAuthorizing Provider: ALEX DEMPSEY User: RODRIGO DAVIS------- * Telephone Encounter - Rodrigo Davis RPh - 08/11/2023 8:30 AM EST Rheumatology: Refill Request(s) Per review of the refill parameters, Medication was refilled Rodrigo Davis RPh [facility] Clinical Pharmacist Rheumatology Department 08/11/2023,8:30 AM * Telephone Encounter - Thiago Davidson - 08/08/2023 10:26 PM ESTPending Prescriptions: Disp Refills Methotrexate Sodium 2.5 MG Oral Tablet [Ph*65 Tab*0 Sig: Take 5 tablets by mouth once weekly * Telephone Encounter - Thiago Davidson - 08/08/2023 10:25 PM EST Did you pend patient's preferred pharmacy and medication before forwarding?yes Pharmacy: [id number] Pending Prescriptions: Disp Refills Methotrexate Sodium 2.5 MG Oral Tablet [P*65 Tab*0 Sig: TAKE 5 TABLETS BY MOUTH ONCE WEEKLY Last Visit: 12/16/2022 (in office), Visit date not found (telemedicine) Next Visit: 09/10/2023 If no future appointments scheduled, and last appointment is greater than a year ago, please schedule patient for a follow-up appointment Last date the medication was ordered: 02/13/2023 Is this request for a controlled substance?No Urine Drug Screen:No results found for this or any previous visit. Patient Phone Numbers HelpHive [phone] Labs: Lab Results Component Value Date/Time CREAT 1.4 (H) 07/21/2023 10:55 AM CREAT 1.05 02/27/2021 12:00 AM CREAT 1.1 07/11/2019 01:37 PM POTASSIUM 4.7 07/21/2023 10:55 AM POTASSIUM 4.3 10/12/2020 12:00 AM POTASSIUM 4.7 04/25/2019 09:53 AM TSH 3.27 09/29/2013 10:54 AM LDLCALC 102 12/24/2022 09:21 AM LDLCALC 104 (A) 07/09/2020 12:00 AM LDLCALC 119 10/19/2018 09:42 AM LDLDIRECT NOT APPLICABLE 10/19/2018 09:42 AM ALT 20 07/21/2023 10:55 AM ALT 24 07/11/2019 01:37 PM HGBA1C 6.1 (H) 06/22/2023 10:38 AM HGBA1C 6.0 (H) 10/12/2020 12:00 AM HGBA1C 6.3 (H) 10/19/2018 09:42 AM documented in this encounter Plan of Treatment Upcoming Encounters Date Type Department Care Team (Late st Contact Info) Description 08/18/2023 9:30 AM EST Pharmacy Pharmacy Hematology Oncology [facility]3] [address] [place] [address] [facility], [facility] Hem/Onc [address] [place] [address] 08/18/2023 11:00 AM EST Laboratory Laboratory [facility] [address] [place] [id number] [place], [facility] [address] [place] [address] 09/09/2023 11:15 AM EST Office Visit Hematology/Oncology [facility] [address] [place] [address] Patrice Puente MD [address] [place] [address] 09/10/2023 9:40 AM EST Office Visit Rheumatology [place] [address] [place] [address] Alex Dempsey MD [address] [place] [address] 09/11/2023 9:15 AM EST Telemedicine Urology Samy Bhatt [address] [place] [address] [place] [id number] Vinay Sexton MD [address] [place] [address] [place] [address] 7, Telemed [facility] Ex Rm [address] [place] [address] 10/30/2023 9:30 AM EDT Office Visit [facility] [address] [place] [facility] [place] [phone] Rhianna Huitron, [address] [place] [address] Scheduled Procedures Name Priority Associated Diagnoses Date/Ti me COLONOSCOPY FLEXIBLE PROXIMAL DIAGNOSTIC Recall Hx of colonic polyps Health Maintenance Due Date Last Done Comments CKD PHOS USE SMARTSET 88894 02/23/1963 Hepatitis B (1 of 3 - [...] TO SMARTSET #1146) 04/29/2023 HbA1c 12/21/2023 06/22/2023, 0511/2022, 11/15/2022, Additional history exists Diabetic Foot Exam 12/25/2023 12/24/2022 GFR 01/20/2024 07/21/2023, 11/2022, 06/22/2023, Additional history exists COLONOSCOPY-EVERY 5 YRS AGES 18-100 01/22/2024 01/21/2019, 01/21/2019, 05/10/2013, Additional history exists Diabetic Eye Exam 01/31/2024 01/30/2023, , 01/25/2021, Additional history exists CKD HGB USE SMARTSET 78862 07/06/202407/06, 07/06/2023, 06/22/2023, Additional history exists DTaP,Tdap,and Td Vaccines (3 - Td or Tdap) 12/04/2026 12/04/2016, 12/03/2006, 12/15/1996, Additional history exists Pneumococcal Vaccine: 65+ Years Completed 10/02/2014, 09/01/2011, 07/07/2006 Zoster Vaccines Completed 01/05/2020, 08/05, 10/02/2014 VITAMIN D LEVEL ONCE IN A LIFETIME-USE SMARTSET# [id number] Completed 05/27/2021, 09/07/2019, 01/10/2019, Additional history exists GARDASIL-HPV IMMUNIZATION SERIES Aged Out No longer eligible based on patient's age to complete this topic MENINGOCOCCAL (MENACTRA/MENVEO) Aged Out No longer eligible based on patient's age to complete this topic documented as of this encounter Medical Devices Not on filedocumented as of this encounter Visit Diagnoses Diagnosis Arthritis, rheumatoid (HCC) Rheumatoid arthritis documented in this encounter Care Teams Grain Processor Relationship Specialty Start Date End Date Rhianna Huitron DO [address] [place] [address] PCP - General Family Medicine 07/11/19 documented as of this encounter
--- OUTSIDE RECORDS SUMMARY | 2023-09-01 04:44 | External Medical Summary | Summary of Care ---
Author Name Unknown Organization [facility] Address [address] [place] [address] Phone [phone] Care Team Providers Care Clinical Appeals Rn Name Role Phone Rhianna Huitron DO Primary Care Provider [phone] Reason for Visit * Reason Comments Medication Management Encounter Details Date Type Department Care Team (Late st Contact Info) Description 07/06/2023 9:30 AM [facility] Pharmacy Pharmacy Hematology Oncology [facility] [address] [place] [address] [facility], [facility] Hem/Onc [address] [place] [address] Prostate cancer (HCC)* Allergies Active Allergy Reactions Criticality Noted Date Comments Brent Inhibitors Cough Low 11/26/2017 Alendronate Sodium Muscle pain 04/11/2019 Heartburn, constipation, joint pain Misoprostol Diarrhea 08/08/2003 Niacin Er 11/26/2010 Gas, hot flashes Pollen 01/01/2018 Watery eyes, sneezing Pravastatin 02/26/2007 Upset stomach, all .Statins Simvastatin 02/26/2007 Upset stomach documented as of this encounter (statuses as of 07/06/2023) Medications Medication Sig Dispensed Refills Start Date [...] the morning. 90 Capsule 3 01/02/2023 Active Losartan Potassium 25 MG Oral Tablet (Cozaar) TAKE 1/2 TABLET BY MOUTH EVERY DAY 45 Tablet 1 01/23/2023 Active Methotrexate Sodium 2.5 MG Oral TabletIndications: [...] after food). 120 Tablet 5 04/16/2023 Active documented as of this encounter (statuses as of 07/06/2023) Active Problems Problem Noted Date Diagnosed Date Prostate cancer 04/13/2023 Chronic kidney disease, stage 3a 04/13/2023 Overview: Per CKD protocol Diabetes mellitus without complication 2 Dyslipidemia, goal [...] glucose 12/16/2005 Macular degeneration 12/02/1999 DISC DIS [id number] documented as of this encounter (statuses as of 07/06/2023) Resolved Problems Problem Noted Date Diagnosed Date Resolved Date Prediabetes 11/08/2018 04/17/2022 Overview: Per Prediabetes protocol #1 Morbid (severe) obesity due to excess calories 08/19/2017 03/09/2019 Infective otitis externa 09/08/2012 Cough 07/03/2012 08/18/2012 Benign neoplasm of colon 05/10/2007 Overview: adenomatous repeat colonoscopy in 5 years ARTHRITIS,RHEUMATOID 07/07/2006 016 [id number] 07/07/200611/01 Overview: Renamed Per Clinical Trials Billing Project. Pt is a participant in the [employer] (Consortium of Rheumatology Researchers [place]) national data collection study. For further information please call Dr Hari Clark or Julia White, RN, CCRC at [phone] [facility] OTHER*[id number] 07/07/2006 01/28/2010 Overview: Renamed Per Clinical Trials Billing Project. Pt is a participant in the [employer] (Consortium of [employer]ology [place] national data collection study. For further information please call Dr Hari Clark or Julia White, RN, CCRC at [phone] Hearing loss 12/02/1999 03/29/2013 documented as of this encounter (statuses as of 07/06/2023) Immunizations Name Administration Dates Next Due COVID-19 mRNA, LNP-s, No Pre serve, 2-Dose Series (App Partner) 06/14/2021,10/10/2020,09/12/2020 COVID-19, LNP-s, No Preserve , Yousuf-sucrose, Ages 12+ (Pfizer) 12/25/2021 Covid-19, Mrna, Lnp-s, Pf, B ivalent, 30 Mcg, IM, 12 yrs and above (Pfizer) 05/23/2022 Pneumococcal Conjugate Vacc, 13 Valent (Prevnar) 10/02/2014 Pneumococcal Polysaccharide PPV23 (Pneumovax) 09/01/2011,07/07/2006 SEASONAL INFLUENZA, PF, 6 M & Above, IM , (FLULAVAL or FLUZONE) 05/06/2018 Season Influenza, Quad, PF, Adjuvanted, 65+ Yrs, IM (FLUAD) 04/17/2020 Seasonal Influenza, Quadriva lent Hd (Fluzone Hd) [...] as of this encounter Progress Notes * Endeina Ordoñez, [facility] - 07/06/2023 2:04 PM EST MEDICATION THERAPY MANAGEMENT ABIRATERONE TREATMENT PROGRESS NOTE Markus Wharton (Ron) [id number] Patient Phone Numbers Preferred Lab: [facility] Communication: Spoke to: Patient Treatment: Medication: Abiraterone (Zytiga) Indication/Staging/Diagnosis Code: prostate cancer/ C61 Dose: 1000mg daily Administration: empty stomach (1 hour before or 2 hours after a meal) Start Date: 04/27/23 Primary Fondant Cooker/Oncologist: Dr. Leon Puente Additional Therapy: Prednisone 5mg daily Lupron Supportive Care Meds: None Prophylactic Meds: Losartan 12.5mg daily HCTZ 12.5mg daily Treatment History: 04/08/23-present: Lupron Interval History: Pt has chronic RA resolved with MTX and APAP as needed. Reports taking additional APAP for jaw pain within the last week Per PCP OV 06/22/23, pt to HOLD HCTZ due to orthostatic hypotension States PCP advised pt to continue to monitor BP and contact if BP not in goal of 130/60-70 Continues to endorse morning fatigue that improves by 7428-2316 daily and does not affect QoL or ADLs No other concerns, tolerating therapy well Changes to medication list since last visit? No Assessment and Plan: Follow up labs stable BP improving Continue to monitor BP and contact PCP if BP out of goal (130/60-70) Reviewed APAP dosing (MDD 3000mg) and to contact cooler tender if pain increases Reviewed resting when needed, working when able, and to contact office if fatigue affecting QoL or ADLs Continue current therapy and q2wk labs (scheduled 07/21 @1100) Assessment of compliance: compliant Assessment of adverse effects attributed to drug therapy: Edema/fluid retention - absent HTN - absent Joint swelling or discomfort - absent Arthralgias/Myalgias - present, chronic, stable Diarrhea/Constipation - absent Dose adjustment needed based on lab or adverse drug reaction? No Follow up: 07/21 Enedina Ordoñez, PharmD, BCOP Clinical Pharmacist, [facility] Oral Chemotherapy [facility] 07/06/2023, 2:14 PM Monitoring Parameters: Estimated CrCl Serum creatinine: 1.6 mg/dL (H) 07/06/23 1117 Estimated creatinine clearance: 56.5 mL/min (A) Hepatitis panel Latest Reference Range [...] Pertinent labs: Latest Reference Range & Units 06/08/23 11:22 06/22/23 10:38 07/06/23 11:17 Albumin 3.8 - 5.0 g/dL 4.0 3.8 3.9 AST 10 - 50 U/L 15 17 17 ALT 10 - 50 U/L 16 18 15 Alkaline Phosphatase 35 - 130 U/L 88 84 89 Bilirubin, Total <=1.2 mg/dL 0.4 0.4 0.5 04/10/2023 06/09/2023 06/22/2023 BP AND WT. Systolic 150 157 130 Diastolic 76 72 68 Time Spent on Encounter: 6 - 10 minutes Encounter Group: Oncology Encounter Interventions Item Category: Oral Chemotherapy Abiraterone Problem/Rationale: Safety: Needs additional monitoring - Medication Requires monitoring Pharmacist Intervention(s): Care coordination, Lab monitoring, Non- pharmacological intervention provided, and Toxicity monitoring Magnitude of Intervention: Monitoring with direction (Level 1) Second Item Second Item Category: Analgesics Acetaminophen Problem/Rationale: Effectiveness: Needs additional monitoring - Medication Requires monitoring Pharmacist Intervention(s): Toxicity monitoring Magnitude of Intervention: Monitoring with direction (Level 1) documented in this encounter Plan of Treatment Upcoming Encounters Date Type Department Care Team (Late st Contact Info) Description 07/21/2023 11:00 AM EST Laboratory Laboratory [facility] [address] [facility] [place] [phone] [facility] [address] [facility] [place] [address] 08/14/2023 11:00 AM EST Nurse Only Urology, [facility] [address] [facility] [address] [facility], Nurse Urology [facility] [address] [place] [address] 09/09/2023 11:15 AM EST Office Visit Hematology/Oncology [facility] [address] [facility] [place] [address] Patrice Puente MD [address] [facility] [place] [address] 09/10/2023 9:40 AM EST Office Visit Rheumatology [address] [place] [address] Mendel Wilson MD [facility] [place] [address] 09/11/2023 9:15 AM EST Telemedicine Urology Samy Bhatt [address] [place] [address] [place] [address] Vinay Sexton MD [address] [place] [address] [place] [address] 7, Telemed [facility] Ex [address] [place] [address] 10/30/2023 9:30 AM EDT [facility] [address] [facility] [phone] Rhianna Huitron DO [address] [facility] [address] Scheduled Procedures Name Priority Associated Diagnoses Date/Ti me COLONOSCOPY FLEXIBLE PROXIMAL DIAGNOSTIC Recall Hx of colonic polyps Health Maintenance Due Date Last Done Comments CKD PHOS USE SMARTSET 64885 02/23/1963 Hepatitis B (1 of 3 - [...] Additional history exists CKD HGB USE SMARTSET 30057 07/06/202407/06, 07/06/2023, 06/22/2023, Additional history exists DTaP,Tdap,and Td Vaccines (3 - Td or Tdap) 12/04/2026 12/04/2016, 12/03/2006, 12/15/1996, Additional history exists Pneumococcal Vaccine: 65+ Years Completed 10/02/2014, 09/01/2011, 07/07/2006 Zoster Vaccines Completed 01/05/2020, 08/05, 10/02/2014 VITAMIN D LEVEL ONCE IN A LIFETIME-USE SMARTSET# [id number] Completed 05/27/2021, 09/07/2019, 01/10/2019, Additional history exists [...] prostate documented in this encounter Care Teams Clinical Appeals Rn Relationship Specialty Start Date End Date Rhianna Huitron DO [address] [place] [address] PCP - General Family Medicine 07/11/19 documented as of this encounter
--- OUTSIDE RECORDS SUMMARY | 2023-09-01 04:44 | External Medical Summary | Summary of Care ---
Author Name Unknown Organization [facility] Address [address] [facility] [address] Phone [phone] Care Team Providers Care Still Worker Helper Name Role Phone Rhianna Huitron DO Primary Care Provider Reason for Visit * Reason Onset Date Comments Test Results Lab 06/26/2023 Encounter Details Date Type Department Care Team (Late st Contact Info) Description 06/26/2023 Telephone Rheumatology [facility] [address] [place] [address] Mendel Wilson MD [address] [facility] [place] [address] Test Results Lab Allergies Active Allergy Reactions Criticality Noted Date Comments Brent Inhibitors Cough Low 11/26/2017 Alendronate Sodium Muscle pain 04/11/2019 Heartburn, constipation, joint pain Misoprostol Diarrhea 08/08/2003 Niacin Er 11/26/2010 Gas, hot flashes Pollen 01/01/2018 Watery eyes, sneezing Pravastatin 02/26/2007 Upset stomach, all .Statins Simvastatin 02/26/2007 Upset stomach documented as of this encounter (statuses as of 06/26/2023) Medications Medication Sig Dispensed Refills Start Date [...] as of this encounter (statuses as of 06/26/2023) Active Problems Problem Noted Date Diagnosed Date [...] glucose 12/16/2005 Macular degeneration 12/02/1999 DISC DIS [id number] documented as of this encounter (statuses as of 06/26/2023) Resolved Problems Problem Noted Date Diagnosed Date Resolved Date Prediabetes 11/08/2018 04/17/2022 Overview: Per Prediabetes protocol #1 Morbid (severe) obesity due to excess calories 08/19/2017 03/09/2019 Infective otitis externa 09/08/2012 Cough 07/03/2012 08/18/2012 Benign neoplasm of colon 05/10/2007 Overview: adenomatous repeat colonoscopy in 5 years ARTHRITIS,RHEUMATOID 07/07/2006 016 [id number] 07/07/200611/01 Overview: Renamed Per Clinical Trials Billing Project. Pt is a participant in the [employer] (Consortium of Rheumatology Researchers [place]) national data collection study. For further information please call Dr Hari Clark or Julia White, RN, CCRC at [phone] [facility] OTHER*[id number] 07/07/2006 01/28/2010 Overview: Renamed Per Clinical Trials Billing Project. Pt is a participant in the [employer] (Consortium of Rheumatology Researchers [place]) national data collection study. For further information please call Dr Hari Clark or Julia White, RN, CCRC at [phone] Hearing loss 12/02/1999 03/29/2013 documented as of this encounter (statuses as of 06/26/2023) Immunizations Name Administration Dates Next Due COVID-19 mRNA, LNP-s, No Pre serve, 2-Dose Series ([employer]) 06/14/2021,10/10/2020,09/12/2020 COVID-19, LNP-s, No Preserve , Yousuf-sucrose, [...] encounter Miscellaneous Notes * Telephone Encounter - Imani Baez RP - 06/26/2023 9:13 AM EST Reviewed kidney function, liver function, and blood count protocol labs done on 06/22/23. Chart review shows that pt is currently being treated for prostate cancer. Review of recent Hem/Oncnotes that they are aware pt is on MTX 12.5mg weekly. These lab results appear to be generally stable when looking at the pt's recent history. Reviewed with Dr. Wilson who is okay with continuing methotrexate at this time. [employer]) message sent to patient. Thank you, Imani Baez, PharmD [facility] Clinical Pharmacist Rheumatology Department [phone] 06/26/2023 documented in this encounter Plan of Treatment Upcoming Encounters Date Type Department Care Team (Late st Contact Info) Description 07/06/2023 9:30 AM EST Pharmacy Pharmacy Hematology Oncology [place] [address] [place] [facility] [place] [address] [facility], [facility] Hem/Onc [address] [facility] [place] [address] 07/06/2023 11:30 AM EST Laboratory Laboratory [place] Karel Hobbs [address] [place] [phone] [place], Lab Scenery [address] [facility] [address] 08/14/2023 11:00 AM EST Nurse Only Urology, [facility] [address] [facility] [place] [address] Nurse Garrett Urology [facility] [address] [place] [address] 09/09/2023 11:15 AM EST Office Visit Hematology/Oncology [facility] [address] [facility] [place] [address] Patrice Puente MD [address] [facility] [place] [address] 09/10/2023 9:40 AM EST Office Visit Rheumatology [place] [address] [place] [address] Mendel Wilson MD [address] [place] [address] 09/11/2023 9:15 AM EST Office Visit [facility], [facility] [address] [facility] [place] [address] Vinay Sexton MD [address] [facility] [address] [place] [address] 10/30/2023 9:30 AM EDT Office Visit [facility] [address] [place] [phone] Rhianna Huitron DO [address] [place] [address] Scheduled Procedures Name Priority Associated Diagnoses Date/Ti me COLONOSCOPY FLEXIBLE PROXIMAL DIAGNOSTIC Recall Hx of colonic polyps Health Maintenance Due Date Last Done Comments CKD PHOS USE SMARTSET 40385 02/23/1963 Hepatitis B (1 of 3 - Risk 3-dose series) 2006 DXA Scan 01/10/2021 01/10/2019, 1212/2005, 07/07/2006 Depression Screening 03/13/2021 03/13/2020 COVID-19 Vaccine ( season) 2023 05/23/2022, 12/25/2021, 06/14/2021, Additional history exists Influenza Vaccine (FLU shot) (#1) 2023 05/08/2022, 05/07/2021, 04/17/2020, Additional history exists Albumin/Creatinine Ratio 04/10/2023 04/10/2022, 10/2006 *BISPHONATE OR OTHER ACCEPTABLE MEDICATION NEEDED FOR OSTEOPOROSIS (REFER TO SMARTSET #1146) 04/29/2023 GFR 12/21/2023 06/22/2023, 01/2023, 05/25/2023, Additional history exists HbA1c 12/21/2023 06/22/2023, 12/02, 11/15/2022, Additional history exists Diabetic Foot Exam 12/25/2023 12/24/2022 COLONOSCOPY-EVERY 5 YRS AGES 18-100 01/22/2024 01/21/2019, 01/21/2019, 05/10/2013, Additional history exists Diabetic Eye Exam 01/31/2024 01/30/2023, , 01/25/2021, Additional history exists CKD HGB USE SMARTSET 00902 06/22/202406/22, 06/22/2023, 06/08/2023, Additional history exists DTaP,Tdap,and Td Vaccines (3 - Td or Tdap) 12/04/2026 12/04/2016, 12/03/2006, 12/15/1996, Additional history exists Pneumococcal Vaccine: 65+ Years Completed 10/02/2014, 09/01/2011, 07/07/2006 Zoster Vaccines Completed 01/05/2020, 08/05, 10/02/2014 VITAMIN D LEVEL ONCE IN A LIFETIME-USE SMARTSET# 04894 Completed 05/27/2021, 09/07/2019, 01/10/2019, Additional history exists GARDASIL-HPV IMMUNIZATION SERIES Aged Out No longer eligible based on patient's age to complete this topic MENINGOCOCCAL (MENACTRA/MENVEO) Aged Out No longer eligible based on patient's age to complete this topic documented as of this encounter Medical Devices Not on filedocumented as of this encounter Care Teams Still Worker Helper Relationship Specialty Start Date End Date Rhianna Huitron DO [address] [place] [address] PCP - General Family Medicine 07/11/19 documented as of this encounter
--- OUTSIDE RECORDS SUMMARY | 2023-09-01 04:44 | External Medical Summary ---
Author Name Unknown Address Unknown Organization K[facility] [place] [address] Laboratory Report Ordering Provider Test Date Status JOHNATHON CASILLAS 07/06/2023 11:17:42 Final Observation Date Value Abnormality Reference (Units ) Status WBC, Total 07/06/2023 11:17:42 8.90 4.00-10.8 0 (K/uL) Final RBC 07/06/2023 11:17:42 3.98 4.50-5.25 (M/uL) Final Hemoglobin 07/06/2023 11:17:42 11.5 Below low normal 14 .0-16.8 (g/dL) Final HCT 07/06/2023 11:17:42 36.7 Below low normal 40. 0-48.4 (%) Final MCV 07/06/2023 11:17:42 92.2 82.0-99.5 (fL) Final MCH 07/06/2023 11:17:42 28.9 27.0-34.0 (pg) Final MCHC 07/06/2023 11:17:42 31.3 32.0-36.0 (g/dL) Final RDW 07/06/2023 11:17:42 16.3 11.5-15.5 (%) Final Platelets 07/06/2023 11:17:42 241 140-400 (K /uL) Final MPV 07/06/2023 11:17:42 9.4 6.6-11.1 ( fL) Final [place]forming [place] [address]
--- OUTSIDE RECORDS SUMMARY | 2023-09-01 04:44 | External Medical Summary ---
Author Name Unknown Address Unknown Organization K09[facility] [id number] [place] [address] Laboratory Report Ordering Provider Test Date Status JOHNATHON CASILLAS 07/06/2023 11:17:42 Final Every two weeks for three mo nths, then every month (patients with moderate hep impairment every week for one month, every two weeks for two months, then every month) Observation Date Value Abnormality Reference (Units ) Status BUN 07/06/2023 11:17:42 24 Above high normal 6-20 (mg/dL) Final Creatinine 07/06/2023 11:17:42 1.6 Above high normal 0.6-1.2 (mg/dL) Final Glomerular filtration rate/1.73 sq M.predicted [Volume Rate/Area] in Serum, Plasma or Blood by Creatinine-based formula (CKD-EPI) 07/06/2023 11:17:42 43 Below low normal >=60 (mL/min) Final eGFR is calculated based on the CKD-EPI 2020 equation SODIUM 07/06/2023 11:17:42 138 135-146 (m mol/L) Final Potassium 07/06/2023 11:17:42 4.4 3.5-5.1 (m mol/L) Final Cl 07/06/2023 11:17:42 101 98-107 (mm ol/L) Final CO2 07/06/2023 11:17:42 27 22-32 (mmo l/L) Final Anion gap 07/06/2023 11:17:42 10 7-15 (mmol /L) Final Glucose 07/06/2023 11:17:42 126 Above high normal 70 -120 (mg/dL) Final Albumin 07/06/2023 11:17:42 3.9 3.8-5.0 (g /dL) Final AST (Aspartate aminotransferase) 07/06/2023 11:17:42 17 10-50 (U/L) Fin al Alk Phos 07/06/2023 11:17:42 89 35-130 (U/ L) Final Bilirubin, Total 07/06/2023 11:17:42 0.5 <=1 .2 (mg/dL) Final Calcium 07/06/2023 11:17:42 9.4 8.4-10.2 ( mg/dL) Final Protein 07/06/2023 11:17:42 7.4 6.0-8.3 (g /dL) Final ALT (Alanine aminotransferase) 07/06/2023 11:17:42 15 10-50 (U/L) Joe jones Performing Location [place] [address]
--- OUTSIDE RECORDS SUMMARY | 2023-09-01 04:44 | External Medical Summary | Summary of Care ---
Author Name Unknown Organization [facility] Address [address] [place] [address] Phone [phone] Care Team Providers Care Flow Worker Name Role Phone Rhianna Huitron DO Primary Care Provider [phone] Reason for Visit * Reason Comments Medication Management Encounter Details Date Type Department Care Team (Late st Contact Info) Description 06/23/2023 9:30 AM [facility] Pharmacy Pharmacy Hematology Oncology [facility] [address] [place] [address] [facility], [facility] Hem/Onc [address] [place] [address] Prostate cancer (HCC)* Allergies Active Allergy Reactions Criticality Noted Date Comments Brent Inhibitors Cough Low 11/26/2017 Alendronate Sodium Muscle pain 04/11/2019 Heartburn, constipation, joint pain Misoprostol Diarrhea 08/08/2003 Niacin Er 11/26/2010 Gas, hot flashes Pollen 01/01/2018 Watery eyes, sneezing Pravastatin 02/26/2007 Upset stomach, all .Statins Simvastatin 02/26/2007 Upset stomach documented as of this encounter (statuses as of 06/23/2023) Medications Medication Sig Dispensed Refills Start Date [...] as of this encounter (statuses as of 06/23/2023) Active Problems Problem Noted Date Diagnosed Date [...] glucose 12/16/2005 Macular degeneration 12/02/1999 DISC DIS [id number] documented as of this encounter (statuses as of 06/23/2023) Resolved Problems Problem Noted Date Diagnosed Date Resolved Date Prediabetes 11/08/2018 04/17/2022 Overview: Per Prediabetes protocol #1 Morbid (severe) obesity due to excess calories 08/19/2017 03/09/2019 Infective otitis externa 09/08/2012 Cough 07/03/2012 08/18/2012 Benign neoplasm of colon 05/10/2007 Overview: adenomatous repeat colonoscopy in 5 years ARTHRITIS,RHEUMATOID 07/07/2006 016 [id number] 07/07/200611/01 Overview: Renamed Per Clinical Trials Billing Project. Pt is a participant in the [employer] (Consortium of Rheumatology Researchers [place]) national data collection study. For further information please call Dr Hari Clark or Julia White, RN, CCRC at [phone] [facility] OTHER*[id number] 07/07/2006 01/28/2010 Overview: Renamed Per Clinical Trials Billing Project. Pt is a participant in the [employer] (Consortium of Rheumatology Researchers [place] national data collection study. For further information please call Dr Hari Clark or Julia White, RN, CCRC at [phone] Hearing loss 12/02/1999 03/29/2013 documented as of this encounter (statuses as of 06/23/2023) Immunizations Name Administration Dates Next Due COVID-19 mRNA, LNP-s, No Pre serve, 2-Dose Series ([employer]) 06/14/2021,10/10/2020,09/12/2020 COVID-19, LNP-s, No Preserve , Yousuf-sucrose, [...] this encounter Progress Notes * Enedina Ordoñez, [facility] - 06/23/2023 12:58 PM EST MEDICATION THERAPY MANAGEMENT ABIRATERONE TREATMENT PROGRESS NOTE Markus Wharton (Ron) [phone] Patient Phone Numbers Preferred Lab: [facility]: [facility] Communication: Spoke to: Patient Treatment: Medication: Abiraterone (Zytiga) Indication/Staging/Diagnosis Code: prostate cancer/ C61 Dose: 1000mg daily Administration: empty stomach (1 hour before or 2 hours after a meal) Start Date: 04/27/23 Primary Nuclear Medicine Technologist/Oncologist: Dr. Leon Puente Additional Therapy: Prednisone 5mg daily Lupron Supportive Care Meds: None Prophylactic Meds: Losartain 12.5mg daily HCTZ 12.5mg daily Treatment History: 04/08/23-present: Lupron Interval History: Pt has chronic RA resolved with MTX and APAP as needed. Reports taking additional APAP for jaw pain within the last week Per PCP OV 06/22/23, pt to HOLD HCTZ due to orthostatic hypotension States PCP advised pt to continue to monitor BP and contact if BP not in goal of 130/60-70 Reports mild discomfort with self-catheterization. Denies s/s of UTI Continues to endorse morning fatigue that improves by [phone] daily and does not affect QoL or ADLs No other concerns, tolerating therapy well Changes to medication list since last visit? No Assessment and Plan: Hgb low but improving Na+ improving to WNL BP improving Continue to monitor BP and contact PCP if BP out of goal (130/60-70) All other labs stable Reviewed APAP dosing (MDD 3000mg) and to contact quantitative strategy analyst if pain increases Advised pt to follow up with urologist if self-catheterization becomes an issue or suspect UTI Reviewed resting when needed, working when able, and to contact office if fatigue affecting QoL or ADLs Continue current therapy and q2wk labs (scheduled 07/06 @1130) Assessment of compliance: compliant Assessment of adverse effects attributed to drug therapy: Edema/fluid retention - absent HTN - absent Joint swelling or discomfort - absent Arthralgias/Myalgias - present, chronic Diarrhea/Constipation - absent Dose adjustment needed based on lab or adverse drug reaction? No Follow up: 07/06 Enedina Ordoñez, PharmD, BCOP Clinical Pharmacist, [facility] Oral Chemotherapy [facility] 06/23/2023, 1:18 PM Monitoring Parameters: Estimated CrCl Serum creatinine: 1.6 mg/dL (H) 06/22/23 1038 Estimated creatinine clearance: 56.5 mL/min (A) Hepatitis [...] Pertinent labs: Latest Reference Range & Units 05/25/23 11:16 06/08/23 11:06/22/23 10:38 Albumin 3.8 - 5.0 g/dL 3.9 4.0 3.8 AST 10 - 50 U/L 27 15 17 ALT 10 - 50 U/L 30 16 18 Alkaline Phosphatase 35 - 130 U/L 79 88 84 Bilirubin, Total <=1.2 mg/dL 0.4 0.4 0.4 Latest Reference Range & Units 05/25/23 11:16 06/08/23 11:22 06/22/23 10:38 WBC 4.00 - 10.80 K/uL 9.00 9.46 8.54 HGB 14.0 - 16.8 g/dL 10.9 (L) 11.4 (L) 11.1 (L) HCT 40.0 - 48.4 % 36.8 (L) 36.1 (L) 35.9 (L) MCV 82.0 - 99.5 fL 97.9 91.9 94.2 PLT 140 - 400 K/uL 170 263 215 Absolute Neutrophils 1.80 - 7.70 K/uL 7.86 (H) 8.35 (H) 7.24 Latest Reference Range & Units 05/25/23 11:16 06/08/23 11:22 06/22/23 10:38 Sodium 135 - 146 mmol/L 133 (L) 133 (L) 136 04/10/2023 06/09/2023 06/22/2023 BP AND WT. Systolic 150 157 130 Diastolic 76 72 68 Time Spent on Encounter: 16 - 20 minutes Encounter Group: Oncology Encounter Interventions Item [...] 9:30 AM EST Pharmacy Pharmacy Hematology Oncology [address] [address] [facility], [facility] Hem/Onc [facility] [place] [place] [address] 07/06/2023 11:30 AM EST Laboratory Laboratory [place] Karel Hobbs [address] [place] [phone] [place] [facility]en[facility] [address] [place] [address] 08/14/2023 11:00 AM EST Nurse Only Urology, [facility] [address] [facility] [place] [address] Tucker[facility]urse alex Urology [facility] [address] [facility] [place] [address] 09/09/2023 11:15 AM EST Office Visit Hematology/Oncology [facility] [address] [facility] [place] [address] Patrice Puente MD [address] [facility] [place] [address] 09/10/2023 9:40 AM EST Office Visit Rheumatology [facility] [address] [place] [address] Mendel iWlson MD [address] [place] [address] 09/11/2023 9:15 AM EST Office Visit Urology, [facility] [address] [facility] [place] [address] Vinay Sexton MD [address] [place] [address] [place] [address] 10/30/2023 9:30 AM EDT Office Visit [facility] [address] [place] [phone] Rhianna Huitron DO [address] [place] [address] Scheduled Procedures Name Priority Associated Diagnoses Date/Ti me COLONOSCOPY FLEXIBLE PROXIMAL DIAGNOSTIC Recall Hx of colonic polyps Health Maintenance Due Date Last Done Comments CKD PHOS USE SMARTSET 43009 02/23/1963 Hepatitis B (1 of 3 - Risk 3-dose series) 2006 DXA Scan 01/10/2021 01/10/2019, 12/0 12/2005, 07/07/2006 Depression Screening 03/13/2021 03/13/2020 COVID-19 Vaccine (3-24 season) 2023 05/23/2022, 12/25/2021, 06/14/2021, Additional history [...] Additional history exists CKD HGB USE SMARTSET 06283 06/22/202406/22, 06/22/2023, 06/08/2023, Additional history exists DTaP,Tdap,and Td Vaccines (3 - Td or Tdap) 12/04/2026 12/04/2016, 12/03/2006, 12/15/1996, Additional history exists Pneumococcal Vaccine: 65+ Years Completed 10/02/2014, 09/01/2011, 07/07/2006 Zoster Vaccines Completed 01/05/2020, 08/05, 10/02/2014 VITAMIN D LEVEL ONCE IN A LIFETIME-USE SMARTSET# 58556 Completed 05/27/2021, 09/07/2019, 01/10/2019, Additional history exists [...] prostate documented in this encounter Care Teams Flow Worker Relationship Specialty Start Date End Date Rhianna Huitron DO [address] [place] [address] PCP - General Family Medicine 07/11/19 documented as of this encounter
--- OUTSIDE RECORDS SUMMARY | 2023-09-01 04:44 | External Medical Summary ---
Author Name Unknown Address Unknown Organization K09[facility] [place] [address] Laboratory Report Ordering Provider Test Date Status JOHNATHON CASILLAS 07/06/2023 11:17:42 Final Observation Date Value Abnormality Reference (Units ) Status SYNC LEUKOCYTES IN BLOOD BY AUTOMATED COUNT 07/06/2023 11:17:42 8.90 4.00-10.80 (K/uL) Final Segs 07/06/2023 11:17:42 87.0 Above high normal 40.0-75.0 (%) Final Lymphs % 07/06/2023 11:17:42 4.3 Below low normal 18.0-42.0 (%) Final Monos 07/06/2023 11:17:42 6.4 1.0-11.0 (%) Final Eosinophils 07/06/2023 11:17:42 2.0 0.0-6.0 (%) Final Basos 07/06/2023 11:17:42 0.3 0.0-2.0 (%) Final Absolute Segs 07/06/2023 11:17:42 7.74 Above high normal 1.80-7.70 (K/uL) Final Lymphs, absolute 07/06/2023 11:17:42 0.38 Below low normal 1.00-4.80 (K/ul) Final Monos, Abs 07/06/2023 11:17:42 0.57 0.00-1.10 (K/uL) Final Eos, Abs 07/06/2023 11:17:42 0.18 0.00-0.70 (K/uL) Final Basos, Abs 07/06/2023 11:17:42 0.03 0.00-0.20 (K/uL) Final Performing Location [facility] [place] [address]
--- OUTSIDE RECORDS SUMMARY | 2023-09-01 04:44 | External Medical Summary | Summary of Care ---
Author Name Unknown Organization [facility] Address [address] [facility] [address] Phone [phone] Care Team Providers Care Transportation Officer Name Role Phone Rhianna Huitron DO Primary Care Provider [phone] Reason for Visit * Reason Comments Outpatient Testing Encounter Details Date Type Department Care Team (Late st Contact Info) Description 07/06/2023 11:30 AM EST Laboratory [facility] [place] [address] [place] [phone] [facility] [address] [place] [address] Prostate cancer (HCC); Anemia, unspecified type Allergies Active Allergy Reactions Criticality Noted Date [...] Per CKD protocol Diabetes mellitus without complication Dyslipidemia, goal LDL [...] glucose 12/16/2005 Macular degeneration 12/02/1999 DISC DIS [id number] documented as of this encounter (statuses as of 07/06/2023) Resolved Problems Problem Noted Date Diagnosed Date Resolved Date Prediabetes 11/08/2018 04/17/2022 Overview: Per Prediabetes protocol #1 Morbid (severe) obesity due to excess calories 08/19/2017 03/09/2019 Infective otitis externa 09/08/2012 Cough 07/03/2012 08/18/2012 Benign neoplasm of colon 05/10/2007 Overview: adenomatous repeat colonoscopy in 5 years ARTHRITIS,RHEUMATOID 07/07/2006 016 [id number] 07/07/200611/01 Overview: Renamed Per Clinical Trials Billing Project. Pt is a participant in the [employer] (Consortium of Rheumatology Researchers [place]) national data collection study. For further information please call Dr Hari Clark or Julia White, RN, CCRC at [phone] [facility] OTHER*[id number] 07/07/2006 01/28/2010 Overview: Renamed Per Clinical Trials Billing Project. Pt is a participant in the [employer] (Consortium of Rheumatology Researchers [place]) national data collection study. For further information please call Dr Hari Clark or Julia White, RN, CCRC at [phone] Hearing loss 12/02/1999 03/29/2013 documented as of this encounter (statuses as of 07/06/2023) Immunizations Name Administration Dates Next Due COVID-19 mRNA, LNP-s, No Pre serve, 2-Dose Series ([employer] (PRIMP)) 06/14/2021,10/10/2020,09/12/2020 COVID-19, LNP-s, No Preserve , Yousuf-sucrose, [...] 08/14/2023 11:00 AM EST [facility] [address] [place] [address] [facility], Nurse Urology [facility] [address] [place] [address] 09/09/2023 11:15 AM EST Office Visit Hematology/Oncology [facility] [address] [facility] [place] [address] Patrice Puente MD [address] [facility] [place] [address] 09/10/2023 9:40 AM EST Office Visit Rheumatology [address] [place] [address] Mendel Wilson MD [facility] [place] [address] 09/11/2023 9:15 AM EST Telemedicine Urology Samy Bhatt [address] [place] [place] [phone] Vinay Sexton MD [address] [place] [place] [address] 7, Telemed [facility] Ex [address] [place] [address] 10/30/2023 9:30 AM EDT Office Visit [facility] [address] [facility] [phone] Rhianna Huitron DO [address] [facility] [address] Pending Results Name Type Priority Associated Diagnoses Date /Time COMPREHENSIVE METABOLIC PANEL Lab STAT Prostate cancer (HCC) 07/06/2023 11:17 AM EST Scheduled Procedures Name Priority Associated Diagnoses Date/Ti me COLONOSCOPY FLEXIBLE PROXIMAL DIAGNOSTIC Recall Hx of colonic polyps Health Maintenance Due Date Last Done Comments CKD PHOS USE SMARTSET 48061 02/23/1963 Hepatitis B (1 of 3 - [...] Additional history exists CKD HGB USE SMARTSET 11312 06/22/202407/06, 07/06/2023, 06/22/2023, Additional history exists DTaP,Tdap,and Td Vaccines (3 - Td or Tdap) 12/04/2026 12/04/2016, 12/03/2006, 12/15/1996, Additional history exists Pneumococcal Vaccine: 65+ Years Completed 10/02/2014, 09/01/2011, 07/07/2006 Zoster Vaccines Completed 01/05/2020, 08/05, 10/02/2014 VITAMIN D LEVEL ONCE IN A LIFETIME-USE SMARTSET# [id number] Completed 05/27/2021, 09/07/2019, 01/10/2019, Additional history exists GARDASIL-HPV IMMUNIZATION SERIES Aged Out No longer eligible based on patient's age to complete this topic MENINGOCOCCAL (MENACTRA/MENVEO) Aged Out No longer eligible based on patient's age to complete this topic documented as of this encounter Medical Devices Not on filedocumented as of this encounter Procedures Procedure Name Priority Date/Time Associated Diagnosis Comments DIFFERENTIAL, AUTOMATED STAT 07/06/2023 11:17 AM EST Prostate cancer (HCC) Anemia, unspecified type CBC STAT 07/06/2023 11:17 AM EST Prostate cancer (HCC) Anemia, unspecified type CBC STAT 07/06/2023 11:17 AM EST Prostate cancer (HCC) Anemia, unspecified type documented in this encounter Results * (ABNORMAL) DIFFERENTIAL, AUTOMATED (07/06/2023 11:17 AM EST) WBC 8.90 4.00 - 10.80 K/uL 07/06/2023 11:22 AM EST [facility]02 Neutrophils % 87.0(H) 40.0 - 75.0 % 07/06/2023 11:22 AM EST [facility]-02 Lymphocytes % 4.3(L) 18.0 - 42.0 % 07/06/2023 11:22 AM EST [facility]-02 Monocytes % 6.4 1.0 - 11.0 % 07/06/2023 11:22 AM EST [facility] 56- Eosinophils % 2.0 0.0 - 6.0 % 07/06/2023 11:22 AM EST [facility] 56- Basophils % 0.3 0.0 - 2.0 % 07/06/2023 11:22 AM EST [facility] 56- Absolute Neutrophils 7.74(H) 1.80 - 7.70 K/uL 07/06/2023 11:22 AM EST [facility] 56- Absolute Lymphocytes 0.38(L) 1.00 - 4.80 K/ul 07/06/2023 11:22 AM EST [facility] 56- Absolute Monocytes 0.57 0.00 - 1.10 K/uL 07/06/2023 11:22 AM [facility] 56- Absolute Eosinophils 0.18 0.00 - 0.70 K/uL 07/06/2023 11:22 AM [facility] 56- Absolute Basophils 0.03 0.00 - 0.20 K/uL 07/06/2023 11:22 AM [facility] 56- Blood Venous blood specimen / Unknown Venipuncture / Unknown 07/06/2023 11:17 AM EST 07/06/2023 11:17 AM EST Patrice Puente MD LAB BLOOD ORDERABLES [facility] 56- [address] [place] [address] * (ABNORMAL) CBC (07/06/2023 11:17 AM EST) WBC 8.90 4.00 - 10.80 K/uL 07/06/2023 11:22 AM EST [facility] 56- RBC 3.98 4.50 - 5.25 M/uL 07/06/2023 11:22 AM [facility] 56- HGB 11.5(L) 14.0 - 16.8 g/dL 07/06/2023 11:22 AM EST [facility] 56- HCT 36.7(L) 40.0 - 48.4 % 07/06/2023 11:22 AM EST [facility] 56- MCV 92.2 82.0 - 99.5 fL 07/06/2023 11:22 AM EST [facility] 56- MCH 28.9 27.0 - 34.0 pg 07/06/2023 11:22 AM [facility] 56- MCHC 31.3 32.0 - 36.0 g/dL 07/06/2023 11:22 AM EST [facility] 56- RDW 16.3 11.5 - 15.5 % 07/06/2023 11:22 AM [facility] 56- PLT 241 140 - 400 K/uL 07/06/2023 11:22 AM [facility] 56- MPV 9.4 6.6 - 11.1 fL 07/06/2023 11:22 AM [facility] 56- Blood Venous blood specimen / Unknown Venipuncture / Unknown 07/06/2023 11:17 AM EST 07/06/2023 11:17 AM EST Patrice Puente MD LAB BLOOD ORDERABLES [facility] 56- [address] [place] [address] documented in this encounter Visit Diagnoses Diagnosis Prostate cancer (HCC) Malignant neoplasm of prostate Anemia, unspecified type documented in this encounter Care Teams Transportation Officer Relationship Specialty Start Date End Date Rhianna Huitron DO [address] [facility] [place] [address] PCP - General Family Medicine 07/11/19 documented as of this encounter
--- OUTSIDE RECORDS SUMMARY | 2023-09-01 04:44 | External Medical Summary | Summary of Care ---
Author Name Unknown Organization [facility] Address [address] [facility] [address] Phone [phone] Care Team Providers Care Basting Machine Operator Name Role Phone Rhianna Huitron DO Primary Care Provider [phone] Encounter Details Date Type Department Care Team (Late st Contact Info) Description 07/01/2023 Telephone Urology Samy Bhatt [address] [place] [place] [address] Vinay Sexton MD [address] [place] [address] [place] [phone] Allergies Active Allergy Reactions Criticality Noted Date Comments Brent Inhibitors Cough Low 11/26/2017 Alendronate Sodium Muscle pain 04/11/2019 Heartburn, constipation, joint pain Misoprostol Diarrhea 08/08/2003 Niacin Er 11/26/2010 Gas, hot flashes Pollen 01/01/2018 Watery eyes, sneezing Pravastatin 02/26/2007 Upset stomach, all .Statins Simvastatin 02/26/2007 Upset stomach documented as of this encounter (statuses as of 07/01/2023) Medications Medication Sig Dispensed Refills Start Date [...] as of this encounter (statuses as of 07/01/2023) Active Problems Problem Noted Date Diagnosed Date [...] glucose 12/16/2005 Macular degeneration 12/02/1999 DISC DIS [id number] documented as of this encounter (statuses as of 07/01/2023) Resolved Problems Problem Noted Date Diagnosed Date Resolved Date Prediabetes 11/08/2018 04/17/2022 Overview: Per Prediabetes protocol #1 Morbid (severe) obesity due to excess calories 08/19/2017 03/09/2019 Infective otitis externa 09/08/2012 Cough 07/03/2012 08/18/2012 Benign neoplasm of colon 05/10/2007 Overview: adenomatous repeat colonoscopy in 5 years ARTHRITIS,RHEUMATOID 07/07/2006 016 [id number] 07/07/200611/01 Overview: Renamed Per Clinical Trials Billing Project. Pt is a participant in the [employer] (Consortium of Rheumatology Researchers [place]) national data collection study. For further information please call Dr Hari Clark or Julia White, RN, CCRC at [phone] [facility] RESEARCH OTHER*[id number] 07/07/2006 01/28/2010 Overview: Renamed Per Clinical Trials Billing Project. Pt is a participant in the [employer] (Consortium of Rheumatology Researchers [place] national data collection study. For further information please call Dr Hari Clark or Julia White, RN, CCRC at [phone] Hearing loss 12/02/1999 03/29/2013 documented as of this encounter (statuses as of 07/01/2023) Immunizations Name Administration Dates Next Due COVID-19 mRNA, LNP-s, No Pre serve, 2-Dose Series ([employer]) 06/14/2021,10/10/2020,09/12/2020 COVID-19, LNP-s, No Preserve , Yousuf-sucrose, [...] 9:30 AM EST Pharmacy Pharmacy Hematology Oncology [facility] [address] [place] [address] [facility], [facility] Hem/Onc [address] [place] [address] 07/06/2023 11:30 AM EST Laboratory Laboratory Jayashree Hobbs [place] [address] [place] [address] [facility] [address] [facility] [place] [address] 08/14/2023 11:00 AM EST Nurse Only Urology, [facility] [address] [facility] [place] [address] [facility], Nurse Urology [facility] [address] [facility] [place] [address] 09/09/2023 11:15 AM EST Office Visit Hematology/Oncology Jayashree Hobbs [place] [address] [place] [address] Patrice Puente MD [address] [place] [address] 09/10/2023 9:40 AM EST Office Visit Rheumatology [address] [place] [address] Mendel Wilson MD [address] [employer] [place] [address] 09/11/2023 9:15 AM EST Telemedicine Urology [facility] [address] [place] [address] [place] [address] Vinay Sexton MD [address] [place] [address] [place] [address] 7, Telemed [facility] Urology Ex Rm [address] [place] [address] 10/30/2023 9:30 AM EDT Office Visit [facility] [address] [place] [phone] Rhianna Huitron, [address] [place], [place] [phone] Scheduled Procedures Name Priority Associated Diagnoses Date/Ti me COLONOSCOPY FLEXIBLE PROXIMAL DIAGNOSTIC Recall Hx of colonic polyps Health Maintenance Due Date Last Done Comments CKD PHOS USE SMARTSET 61125 02/23/1963 Hepatitis B (1 of 3 - [...] Additional history exists CKD HGB USE SMARTSET 37346 06/22/202406/22, 06/22/2023, 06/08/2023, Additional history exists DTaP,Tdap,and Td Vaccines (3 - Td or Tdap) 12/04/2026 12/04/2016, 12/03/2006, 12/15/1996, Additional history exists Pneumococcal Vaccine: 65+ Years Completed 10/02/2014, 09/01/2011, 07/07/2006 Zoster Vaccines Completed 01/05/2020, 08/05, 10/02/2014 VITAMIN D LEVEL ONCE IN A LIFETIME-USE SMARTSET# [id number] Completed 05/27/2021, 09/07/2019, 01/10/2019, Additional history exists GARDASIL-HPV IMMUNIZATION SERIES Aged Out No longer eligible based on patient's age to complete this topic MENINGOCOCCAL (MENACTRA/MENVEO) Aged Out No longer eligible based on patient's age to complete this topic documented as of this encounter Medical Devices Not on filedocumented as of this encounter Care Teams Basting Machine Operator Relationship Specialty Start Date End Date Rhianna Huitron DO [address] [place] [facility] [place] [address] PCP - General Family Medicine 07/11/19 documented as of this encounter
--- OUTSIDE RECORDS SUMMARY | 2023-09-01 04:45 | External Medical Summary ---
Author Name Unknown Address Unknown Organization [id number]:LABORATORY [facility] - [address] [facility] [place] [address] Laboratory Report Ordering Provider Test Date Status JOHNATHON CASILLAS 06/08/2023 11:22:37 Final Every two weeks for three mo nths, then every month (patients with moderate hep impairment every week for one month, every two weeks for two months, then every month) Observation Date Value Abnormality Reference (Units ) Status BUN 06/08/2023 11:22:37 29 Above high normal 6-20 (mg/dL) Final Creatinine 06/08/2023 11:22:37 1.5 Above high normal 0.6-1.2 (mg/dL) Final Glomerular filtration rate/1.73 sq M.predicted [Volume Rate/Area] in Serum, Plasma or Blood by Creatinine-based formula (CKD-EPI) 06/08/2023 11:22:37 49 Below low normal >=60 (mL/min) Final eGFR is calculated based on the CKD-EPI 2020 equation SODIUM 06/08/2023 11:22:37 133 Below low normal 135 -146 (mmol/L) Final Potassium 06/08/2023 11:22:37 4.3 3.5-5.1 (m mol/L) Final Cl 06/08/2023 11:22:37 95 Below low normal 98- 107 (mmol/L) Final CO2 06/08/2023 11:22:37 28 22-32 (mmo l/L) Final Anion gap 06/08/2023 11:22:37 10 7-15 (mmol /L) Final Glucose 06/08/2023 11:22:37 120 70-120 (mg /dL) Final Albumin 06/08/2023 11:22:37 4.0 3.8-5.0 (g /dL) Final AST (Aspartate aminotransferase) 06/08/2023 11:22:37 15 10-50 (U/L) Fin al Alk Phos 06/08/2023 11:22:37 88 35-130 (U/ L) Final Bilirubin, Total 06/08/2023 11:22:37 0.4 <=1 .2 (mg/dL) Final Calcium 06/08/2023 11:22:37 9.1 8.4-10.2 ( mg/dL) Final Protein 06/08/2023 11:22:37 6.7 6.0-8.3 (g /dL) Final ALT (Alanine aminotransferase) 06/08/2023 11:22:37 16 10-50 (U/L) Joe jones Performing Location LAB[facility]ATORY [place] [address] [address] [facility] [address] [facility] [address]
--- OUTSIDE RECORDS SUMMARY | 2023-09-01 04:45 | External Medical Summary ---
Author Name Unknown Address Unknown Organization [id number]:[facility] [place] [address] [place] [address] Laboratory Report Ordering Provider Test Date Status JOHNATHON CASILLAS 06/08/2023 11:22:37 Final Observation Date Value Abnormality Reference (Units ) Status SYNC LEUKOCYTES IN BLOOD BY AUTOMATED COUNT 06/08/2023 11:22:37 9.46 4.00-10.80 (K/uL) Final Segs 06/08/2023 11:22:37 88.3 Above high normal 40.0-75.0 (%) Final Lymphs % 06/08/2023 11:22:37 3.5 Below low normal 18.0-42.0 (%) Final Monos 06/08/2023 11:22:37 5.9 1.0-11.0 (%) Final Eosinophils 06/08/2023 11:22:37 1.3 0.0-6.0 (%) Final Basos 06/08/2023 11:22:37 0.2 0.0-2.0 (%) Final Immature Granulocyte, Percent 06/08/2023 11:22:37 0.8 0.0-2.0 (%) Final Absolute Segs 06/08/2023 11:22:37 8.35 Above high normal 1.80-7.70 (K/uL) Final Lymphs, absolute 06/08/2023 11:22:37 0.33 Below low normal 1.00-4.80 (K/ul) Final Monos, Abs 06/08/2023 11:22:37 0.56 0.00-1.10 (K/uL) Final Eos, Abs 06/08/2023 11:22:37 0.12 0.00-0.70 (K/uL) Final Basos, Abs 06/08/2023 11:22:37 0.02 0.00-0.20 (K/uL) Final Immature Granulocytes, Number 06/08/2023 11:22:37 0.08 0.00-0.20 (K/uL) Final Performing Location [facility] [place] [address]
--- OUTSIDE RECORDS SUMMARY | 2023-09-01 04:45 | External Medical Summary | Summary of Care ---
Author Name Unknown Organization [facility] Address [address] [facility] [address] Phone [phone] Care Team Providers Care Supervisor Newspaper Deliveries Name Role Phone Rhianna Huitron DO Primary Care Provider [phone] Reason for Visit * Reason Onset Date Comments Abnormal Test Results 03/27/2023 Encounter Details Date Type Department Care Team (Late st Contact Info) Description 03/27/2023 Telephone Rheumatology [facility] [address] [place] [address] Mendel Wilson MD [address] [facility] [place] [id number] Abnormal Test Results Allergies Active Allergy Reactions Criticality Noted Date Comments Brent Inhibitors Cough Low 11/26/2017 Alendronate Sodium Muscle pain 04/11/2019 Heartburn, constipation, joint pain Misoprostol Diarrhea 08/08/2003 Niacin Er 11/26/2010 Gas, hot flashes Pollen 01/01/2018 Watery eyes, sneezing Pravastatin 02/26/2007 Upset stomach, all .Statins Simvastatin 02/26/2007 Upset stomach documented as of this encounter (statuses as of 06/14/2023) Medications Medication Sig Dispensed Refills Start Date End Date Status ASPIR-81 81 MG PO TBEC 1 TABLET DAILY 0 06/19/2006 Active Folic Acid 1 MG Oral TabletIndicatio ns:Arthritis, rheumatoid (HCC) Take 1 Tablet by mouth in the morning. 90 Tablet 3 10/01/2022 Active Clindamycin Phosphate 1 % External LotionIndicatio ns:Folliculitis Apply topically to affected area 2 times a day. To affected area of skin. 60 mL 0 11/09/2022 Active Triamcinolone Acetonide 0.1 % External Cream (Aristocort)Ind ications:Follic ulitis Apply topically to affected area 2 times a day. To affected area. 30 g 1 11/09/2022 Active Tamsulosin HCl 0.4 MG Oral Capsule (Flomax) Take 1 Capsule by mouth in the morning. 90 Capsule 3 01/02/2023 Active Losartan Potassium 25 MG Oral Tablet (Cozaar) TAKE 1/2 TABLET BY MOUTH EVERY DAY 45 Tablet 1 01/23/2023 Active Methotrexate Sodium 2.5 MG Oral TabletIndicatio ns:Arthritis, rheumatoid (HCC) Take 5 tablets by mouth once weekly 65 Tablet 0 04/01/2023 Active hydroCHLOROthia zide 12.5 MG Oral Capsule (Hydrodiuril) TAKE 1 CAPSULE BY MOUTH EVERY DAY 90 Capsule 3 06/06/2022 3 Discontinued Methotrexate Sodium 2.5 MG Oral TabletIndicatio ns:Arthritis, rheumatoid (HCC) TAKE 8 TABLETS BY MOUTH ONE TIME PER WEEK 96 Tablet 1 12/12/2022 3 Discontinued(Ref ill) Sulfamethoxazol e-Trimethoprim 800-160 MG Oral Tablet (Bactrim DS) Take 1 Tablet by mouth in the morning and 1 Tablet before bedtime. Start 2 days prior to biopsy. 10 Tablet 0 12/10/2022 3 Discontinued(Med ication List Clean Up) Bicalutamide 50 MG Oral Tablet (Casodex) Take 1 Tablet by mouth in the morning. 30 Tablet 3 03/27/2023 3 Discontinued(Med ication List Clean Up) documented as of this encounter (statuses as of 06/14/2023) Active Problems Problem Noted Date Diagnosed Date Diabetes mellitus without complication 2 Dyslipidemia, goal [...] glucose 12/16/2005 Macular degeneration 12/02/1999 DISC DIS [id number] documented as of this encounter (statuses as of 06/14/2023) Resolved Problems Problem Noted Date Diagnosed Date Resolved Date Prediabetes 11/08/2018 04/17/2022 Overview: Per Prediabetes protocol #1 Morbid (severe) obesity due to excess calories 08/19/2017 03/09/2019 Infective otitis externa 09/08/2012 Cough 07/03/2012 08/18/2012 Benign neoplasm of colon 05/10/2007 Overview: adenomatous repeat colonoscopy in 5 years ARTHRITIS,RHEUMATOID 07/07/2006 [id number] 07/07/200611/01 Overview: Renamed Per Clinical Trials Billing Project. Pt is a participant in the [employer] ([employer]ortium of [employer] [place]) national data collection study. For further information please call Dr Hari Clark or Julia Wihte, RN, CCRC at [phone] [employer] RESEARCH OTHER*[id number] 07/07/2006 01/28/2010 Overview: Renamed Per Clinical Trials Billing Project. Pt is a participant in the [employer] ([employer]ortium of [employer] [place]) national data collection study. For further information please call Dr Hari Clark or Julia White RN, CCRC at [phone] Hearing loss 12/02/1999 03/29/2013 documented as of this encounter (statuses as of 06/14/2023) Immunizations Name Administration Dates Next Due COVID-19 [...] encounter Miscellaneous Notes * Telephone Encounter - Mendel Wilson MD - 03/31/2023 4:49 PM EDT Please contact patient and have him decrease the dose of methotrexate to 5 tabs weekly and repeat labs in 1 month. * Telephone Encounter - ShannanImani lópez [facility] - 03/27/2023 10:34 AM EDT Labs done 03/26/23. Liver function is normal. Blood counts and kidney function declined further. Results for orders placed or performed in visit on 03/26/23 BUN Result Value Ref Range BUN 44 (H) 6 - 20 mg/dL CREATININE Result Value Ref Range Creatinine 2.4 (H) 0.6 - 1.2 mg/dL Estimated Glomerular Filtration Rate 27 (L) >=60 mL/min CBC Result Value Ref Range WBC 7.96 4.00 - 10.80 K/uL RBC 3.81 4.50 - 5.25 M/uL HGB 11.3 (L) 14.0 - 16.8 g/dL HCT 35.6 (L) 40.0 - 48.4 % MCV 93.4 82.0 - 99.5 fL MCH 29.7 27.0 - 34.0 pg MCHC 31.7 32.0 - 36.0 g/dL RDW 14.9 11.5 - 15.5 % PLT 229 140 - 400 K/uL MPV 11.1 6.6 - 11.1 fL DIFFERENTIAL, AUTOMATED Result Value Ref Range WBC 7.96 4.00 - 10.80 K/uL Neutrophils % 71.2 40.0 - 75.0 % Lymphocytes % 18.0 18.0 - 42.0 % Monocytes % 7.5 1.0 - 11.0 % Eosinophils % 2.9 0.0 - 6.0 % Basophils % 0.4 0.0 - 2.0 % Absolute Neutrophils 5.67 1.80 - 7.70 K/uL Absolute Lymphocytes 1.43 1.00 - 4.80 K/ul Absolute Monocytes 0.60 0.00 - 1.10 K/uL Absolute Eosinophils 0.23 0.00 - 0.70 K/uL Absolute Basophils 0.03 0.00 - 0.20 K/uL Urology has referred patient to Hematology/Oncology for prostate cancer, as per today's visit. Current Methotrexate dose is 20mg weekly. Please advise if any adjustments should be made to current therapy due to cancer diagnosis or if dose should be adjusted due to decline in kidney function. Thank you, Imani Baez, PharmD [facility] Clinical Pharmacist Rheumatology Department [phone] 03/27/2023 documented in this encounter Plan of Treatment Upcoming Encounters Date Type Department Care Team (Late st Contact Info) Description 06/22/2023 10:30 AM EST [facility] [place] [address] [facility] [address] [place] [address] [facility] [facility] [address] 06/22/2023 11:10 AM EST [facility] [address] [facility] [place] [address] Rhianna Huitron, DO [address] [place] [address] 06/23/2023 9:30 AM EST Pharmacy Pharmacy Hematology Oncology [facility] [address] [place] [address] [facility] [address] [place] [address] 08/14/2023 11:00 AM EST Nurse Only Urology [facility] [address] [facility] [address] [place] Nurse Urology [facility] [address] [facility] [place] [address] 09/09/2023 11:15 AM EST Office Visit Hematology/Oncology [facility] [address] [facility] [place] [address] Patrice Puente MD [address] [facility] [place] [address] 09/10/2023 9:40 AM EST Office Visit Rheumatology [address] [place] [address] Mendel Wilson MD [facility] [facility] [place] [address] 09/11/2023 9:15 AM EST Office Visit Urology, [facility] [address] [place] [address] Vinay Sexton MD [address] [facility] [address] [place] [address] Scheduled Procedures Name Priority Associated Diagnoses Date/Ti me COLONOSCOPY FLEXIBLE PROXIMAL DIAGNOSTIC Recall Hx of colonic polyps Health Maintenance Due Date Last Done Comments CKD PHOS USE SMARTSET 96929 02/23/1963 Hepatitis B (1 of 3 - Risk 3-dose series) 2006 DXA Scan 01/10/2021 01/10/2019, 1212/2005, 07/07/2006 Depression Screening 03/13/2021 03/13/2020 COVID-19 Vaccine ( season) 2023 05/23/2022, 12/25/2021, 06/14/2021, Additional history exists Influenza Vaccine (FLU shot) (#1) 2023 05/08/2022, 05/07/2021, 04/17/2020, Additional history exists Albumin/Creatinine Ratio 04/10/2023 04/10/2022, 10/2006 *BISPHONATE OR OTHER ACCEPTABLE MEDICATION NEEDED FOR OSTEOPOROSIS (REFER TO SMARTSET #1146) 04/29/2023 HbA1c 06/26/2023 12/24/2022, 11/01, 04/10/2022, Additional history exists GFR 12/07/2023 06/08/2023, 05/04, 05/11/2023, Additional history exists Diabetic Foot Exam 12/25/2023 12/24/2022 COLONOSCOPY-EVERY 5 YRS AGES 18-100 01/22/2024 01/21/2019, 01/21/2019, 05/10/2013, Additional history exists Diabetic Eye Exam 01/31/2024 01/30/2023, , 01/25/2021, Additional history exists CKD HGB USE SMARTSET 76248 06/08/202406/08, 06/08/2023, 05/25/2023, Additional history exists DTaP,Tdap,and Td Vaccines (3 - Td or Tdap) 12/04/2026 12/04/2016, 12/03/2006, 12/15/1996, Additional history exists Pneumococcal Vaccine: 65+ Years Completed 10/02/2014, 09/01/2011, 07/07/2006 Zoster Vaccines Completed 01/05/2020, 08/05, 10/02/2014 VITAMIN D LEVEL ONCE IN A LIFETIME-USE SMARTSET# [id number] Completed 05/27/2021, 09/07/2019, 01/10/2019, Additional history exists GARDASIL-HPV IMMUNIZATION SERIES Aged Out No longer eligible based on patient's age to complete this topic MENINGOCOCCAL (MENACTRA/MENVEO) Aged Out No longer eligible based on patient's age to complete this topic documented as of this encounter Medical Devices Not on filedocumented as of this encounter Visit Diagnoses Diagnosis Encounter for long-term (current) drug use- Primary Encounter for long-term (current) use of other medications Arthritis, rheumatoid (HCC) Rheumatoid arthritis documented in this encounter Care Teams Supervisor Newspaper Deliveries Relationship Specialty Start Date End Date Rhianna Huitron DO [address] [place] [address] PCP - General Family Medicine 07/11/19 documented as of this encounter
--- OUTSIDE RECORDS SUMMARY | 2023-09-01 04:45 | External Medical Summary | Summary of Care ---
Author Name Unknown Organization [facility] Address [address] [place] [address] Phone [phone] Care Team Providers Care Linemarker Name Role Phone Rhianna Huitron DO Primary Care Provider Reason for Visit * Reason Comments Follow Up 6 month check up Encounter Details Date Type Department Care Team (Late st Contact Info) Description 06/22/2023 11:10 AM EST Office Visit [facility] [address] [place] [address] Rhianna Huitron DO [address] [place] [address] Diabetes mellitus without complication (HCC)*; Rheumatoid arthritis involving multiple sites with positive rheumatoid factor (HCC); Prostate cancer (HCC); Chronic kidney disease, stage 3a (HCC); Irregular heart rate Allergies Active Allergy Reactions Criticality Noted Date Comments Brent Inhibitors Cough Low 11/26/2017 Alendronate Sodium Muscle pain 04/11/2019 Heartburn, constipation, joint pain Misoprostol Diarrhea 08/08/2003 Niacin Er 11/26/2010 Gas, hot flashes Pollen 01/01/2018 Watery eyes, sneezing Pravastatin 02/26/2007 Upset stomach, all .Statins Simvastatin 02/26/2007 Upset stomach documented as of this encounter (statuses as of 06/22/2023) Medications Medication Sig Dispensed Refills Start Date [...] 01/23/2023 Active Methotrexate Sodium 2.5 MG Oral TabletIndication [...] after food). 120 Tablet 5 04/16/2023 Active hydroCHLOROthiaz serene 12.5 MG Oral Capsule (Hydrodiuril) TAKE 1 CAPSULE BY MOUTH EVERY DAY 90 Capsule 2 05/10/2023 3 Discontinue d(Discharge d) documented as of this encounter (statuses as of 06/22/2023) Active Problems Problem Noted Date Diagnosed Date [...] glucose 12/16/2005 Macular degeneration 12/02/1999 DISC DIS [id number] documented as of this encounter (statuses as of 06/22/2023) Resolved Problems Problem Noted Date Diagnosed Date Resolved Date Prediabetes 11/08/2018 04/17/2022 Overview: Per Prediabetes protocol #1 Morbid (severe) obesity due to excess calories 08/19/2017 03/09/2019 Infective otitis externa 09/08/2012 Cough 07/03/2012 08/18/2012 Benign neoplasm of colon 05/10/2007 Overview: adenomatous repeat colonoscopy in 5 years ARTHRITIS,RHEUMATOID 07/07/2006 016 [id number] 07/07/200611/01 Overview: Renamed Per Clinical Trials Billing Project. Pt is a participant in the [employer] ([employer]ortium of [employer] [place]) national data collection study. For further information please call Dr Hari Clark or Julia White, RN, CCRC at [phone] [employer] RESEARCH OTHER*[id number] 07/07/2006 01/28/2010 Overview: Renamed Per Clinical Trials Billing Project. Pt is a participant in the [employer] (Consortium of [employer] [place] national data collection study. For further information please call Dr Hari Clark or Julia White RN, CCRC at [phone] Hearing loss 12/02/1999 03/29/2013 documented as of this encounter (statuses as of 06/22/2023) Immunizations Name Administration Dates Next Due COVID-19 [...] on file documented as of this encounter Last Filed Vital Signs Vital Sign Reading Time Taken Comments Blood Pressure 130/68 06/22/2023 10:49 AM EST Pulse 95 06/22/2023 10:49 AM EST Temperature 36.7 C (98 F) 06/22/2023 10:49 AM EST Respiratory Rate 18 06/22/2023 10:49 AM EST Oxygen Saturation 97% 06/22/2023 10:49 AM EST Inhaled Oxygen Concentration - - Weight 133.4 kg (294 lb) 06/22/2023 10:49 AM EST Height - - Body Mass Index 37.24 04/10/2023 11:57 AM EDT documented in this encounter Progress Notes * Rhianna Huitron DO - 06/22/2023 11:28 AM EST Subjective: Markus Wharton is a 78 year old male. Chief Complaint Patient presents with Follow Up 6 month check up HPI: 78 year old male here today for a follow up. He has hx of type 2 diabetes, Rheumatoid Arthritis, HTN, colon polyps, CRI, diverticular disease, and recently with diagnosis of Prostate Cancer in december of 2022, and he had bladder outlet obstruction as well. He did have imaging showed R iliac chain Lymph nodes. He completed radiation at [facility] earlier this month. He got first treatment for cancer on 04/08/2023, which was Lupron. He was on Casodex but he got dizzy. He is on Zytiga and steroids. Today he presents alone. He now is using a cane. He feels weak and tired at times. We talked about his BP and will hold on his HCTZ for now and then send in BP readings. As he gets light headed when he stands up. I reviewed Dr Puente and Dr Maria notes Continues to self cath daily. Notes more caths at night. PHM: Patient Active Problem List Diagnosis Code Macular degeneration H35.30 DISC DIS [id number] M51.9 Impaired fasting glucose R73.01 ADVANCE DIRECTIVE INFORMATION Encounter for long-term (current) use of medications Z79.899 BMI 35-39 ISOLATED (SEE ACTUAL BMI) E66.9 Rheumatoid arthritis involving multiple sites with positive rheumatoid factor ([facility]) M05.79 HTN, goal below 130/80 I10 History of colon polyps Z86.010 Fuchs' corneal dystrophy H18.519 Morbid obesity with BMI of 40.0-44.9, adult ([facility]) E66.01, Z68.41 Dyslipidemia, goal LDL below 160 E78.5 Osteoporosis with symptom management only M81.0 Diabetes mellitus without complication ([facility]) E11.9 Prostate cancer ([facility]) C61 Chronic kidney disease, stage 3a ([facility]) N18.31 Current Outpatient Medications Medication Sig Dispense Refill ASPIR-81 81 MG PO TBEC 1 TABLET DAILY 0 Folic Acid 1 MG Oral Tablet Take 1 Tablet by mouth in the morning. 90 Tablet 3 Tamsulosin HCl 0.4 MG Oral Capsule (Flomax) Take 1 Capsule by mouth in the morning. 90 Capsule 3 Losartan Potassium 25 MG Oral Tablet (Cozaar) TAKE 1/2 TABLET BY MOUTH EVERY DAY 45 Tablet 1 Methotrexate Sodium 2.5 MG Oral Tablet Take 5 tablets by mouth once weekly 65 Tablet 0 predniSONE 5 MG Oral Tablet (Deltasone) Take 1 Tablet by mouth in the morning. 30 Tablet 5 Abiraterone Acetate 250 MG Oral Tablet (Zytiga) Take 4 Tablets by mouth in the morning on an empty stomach (1 hour before or 2 hours after food). 120 Tablet 5 hydroCHLOROthiazide 12.5 MG Oral Capsule (Hydrodiuril) TAKE 1 CAPSULE BY MOUTH EVERY DAY 90 Capsule2 Clindamycin Phosphate 1 % External Lotion Apply topically to affected area 2 times a day. To affected area of skin. (Patient not taking: Reported on 04/23/2023) 60 mL 0 Triamcinolone Acetonide 0.1 % External Cream (Aristocort) Apply topically to affected area 2 times a day. To affected area. (Patient not taking: Reported on 04/23/2023) 30 g 1 No current facility-administered medications for this visit. Review of patient's allergies indicates: Allergen Reactions Fosamax [Alendronate Sodium] Muscle pain Heartburn, constipation, joint pain Misoprostol Diarrhea Niaspan [Niacin Er] Gas, hot flashes Pollen Watery eyes, sneezing Pravastatin Upset stomach, all .Statins Simvastatin Upset stomach Brent Inhibitors Cough Objective: BP 130/68 | Pulse 95 | Temp 36.7 C (98 F) (Infrared ) | Resp 18 | Wt 133.4 kg (294 lb) | SpO2 97% | BMI 37.24 kg/m | BSA 2.65 m Physical Exam: General: alert, healthy, no distress, and pale Heart: no murmur, no gallops, and irregularly irregular Lungs: chest symmetric with normal AP diameter, no chest deformities noted, no chest wall tenderness, lungs clear to auscultation Abdomen: abdomen soft, non-tender, obese, normal bowel sounds, and no masses or organomegaly Extremities: no edema EKG Normal sinus, and + PVCs. ASSESSMENT/PLAN: Diabetes mellitus without complication (HCC) (Primary) - HEMOGLOBIN A1C; Future; Expected date: 06/22/2023 Rheumatoid arthritis involving multiple sites with positive rheumatoid factor (HCC) --stable for now, he is on methotrexate 5 times weekly. --low dose steroid. Prostate cancer (HCC) --treatment per oncology --on Zytiga and steroids along with Lupron. Chronic kidney disease, stage 3a (HCC) - HEMOGLOBIN A1C; Future; Expected date: 06/22/2023 --will ehck hba1c today. Irregular heart rate - EKG; Future; Expected date: 06/22/2023 - EKG PVC on EKG. Stop the hctz, could be causing some dehydration. To report BP readings over the next 2 weeks, and watch for swelling in his legs. Follow Up: Return in about 4 months (around 10/21/2023). Rhianna Huitron DO documented in this encounter Nursing Notes * Luba Mondragon LPN - 06/22/2023 10:46 AM EST Chief Complaint Patient presents with Follow Up 6 month check up documented in this encounter Plan of Treatment Upcoming Encounters Date Type Department Care Team (Late st Contact Info) Description 06/23/2023 9:30 AM EST Pharmacy Pharmacy Hematology Oncology [facility] [address] [place] [address] [facility] Hem/Onc [address] [place] [address] 08/14/2023 11:00 AM EST Nurse Only Urology, [place] [address] [facility] [place] [address] [place] Nurse Urology [facility] [address] [place] [address] 09/09/2023 11:15 AM EST Office Visit Hematology/Oncology [facility] [place] [address] [facility] [place] [address] Patrice Puente MD [address] [facility] [place] [address] 09/10/2023 9:40 AM EST Office Visit Rheumatology [place] [id number] [facility] [place] [address] Mendel Wilson MD [facility] [place] [address] 09/11/2023 9:15 AM EST [facility] [address] [facility] [place] [address] Vinay Sexton MD [address] [place] [address] [place] [address] 10/30/2023 9:30 AM EDT Office Visit [facility] [address] [facility] [id number] Rhianna Huitron DO [address] [place] [address] Scheduled Orders Name Type Priority Associated Diagnoses Orde r Schedule HEMOGLOBIN A1C Lab Routine Chronic kidney disease, stage 3a (HCC) Diabetes mellitus without complication (HCC) Expected: 06/22/2023 (Approximate), Expires: 06/21/2024 EKG EKG Routine Irregular heart rate Expected: 06/22/2023 (Approximate), Expires: 07/22/2024 Scheduled Procedures Name Priority Associated Diagnoses Date/Ti me COLONOSCOPY FLEXIBLE PROXIMAL DIAGNOSTIC Recall Hx of colonic polyps Health Maintenance Due Date Last Done Comments CKD PHOS USE SMARTSET 09736 02/23/1963 Hepatitis B (1 of 3 - [...] Additional history exists CKD HGB USE SMARTSET 56359 06/08/202406/08, 06/08/2023, 05/25/2023, Additional history exists DTaP,Tdap,and Td Vaccines (3 - Td or Tdap) 12/04/2026 12/04/2016, 12/03/2006, 12/15/1996, Additional history exists Pneumococcal Vaccine: 65+ Years Completed 10/02/2014, 09/01/2011, 07/07/2006 Zoster Vaccines Completed 01/05/2020, 08/05, 10/02/2014 VITAMIN D LEVEL ONCE IN A LIFETIME-USE SMARTSET# [id number] Completed 05/27/2021, 09/07/2019, 01/10/2019, Additional history exists GARDASIL-HPV IMMUNIZATION SERIES Aged Out No longer eligible based on patient's age to complete this topic MENINGOCOCCAL (MENACTRA/MENVEO) Aged Out No longer eligible based on patient's age to complete this topic documented as of this encounter Medical Devices Not on filedocumented as of this encounter Visit Diagnoses Diagnosis Diabetes mellitus without complication (HCC)- Primary Type II or unspecified type diabetes mellitus without mention of complication, not stated as uncontrolled Rheumatoid arthritis involving multiple sites with positive rheumatoid factor (HCC) Prostate cancer (HCC) Malignant neoplasm of prostate Chronic kidney disease, stage 3a (HCC) Irregular heart rate Cardiac dysrhythmia, unspecified documented in this encounter Care Teams Linemarker Relationship Specialty Start Date End Date Rhianna Huitron DO [address] [facility] [place] [address] PCP - General Family Medicine 07/11/19 documented as of this encounter"
--- OUTSIDE RECORDS SUMMARY | 2023-09-01 04:45 | External Medical Summary | Summary of Care ---
Author Name Unknown Organization [facility] Address [address] [address] Phone [phone] Care Team Providers Care Optics Technical Officer Name Role Phone Rhianna Huitron DO Primary Care Provider [phone] Reason for Visit * Reason Comments Follow Up F/U Encounter Details Date Type Department Care Team (Late st Contact Info) Description 06/09/2023 9:15 AM EST Office Visit Hematology/Oncology [facility] [place] [address] [facility] [place] [address] Patrice Puente MD [address] [facility] [place] [address] Prostate cancer (HCC)* Allergies Active Allergy Reactions Criticality Noted Date Comments Brent Inhibitors Cough Low 11/26/2017 Alendronate Sodium Muscle pain 04/11/2019 Heartburn, constipation, joint pain Misoprostol Diarrhea 08/08/2003 Niacin Er 11/26/2010 Gas, hot flashes Pollen 01/01/2018 Watery eyes, sneezing Pravastatin 02/26/2007 Upset stomach, all .Statins Simvastatin 02/26/2007 Upset stomach documented as of this encounter (statuses as of 06/09/2023) Medications Medication Sig Dispensed Refills Start Date [...] after food). 120 Tablet 5 04/16/2023 Active hydroCHLOROthiazid e 12.5 MG Oral Capsule (Hydrodiuril) TAKE 1 CAPSULE BY MOUTH EVERY DAY 90 Capsule 2 05/10/2023 Active documented as of this encounter (statuses as of 06/09/2023) Active Problems Problem Noted Date Diagnosed Date [...] glucose 12/16/2005 Macular degeneration 12/02/1999 DISC DIS [id number] documented as of this encounter (statuses as of 06/09/2023) Resolved Problems Problem Noted Date Diagnosed Date Resolved Date Prediabetes 11/08/2018 04/17/2022 Overview: Per Prediabetes protocol #1 Morbid (severe) obesity due to excess calories 08/19/2017 03/09/2019 Infective otitis externa 09/08/2012 Cough 07/03/2012 08/18/2012 Benign neoplasm of colon 05/10/2007 Overview: adenomatous repeat colonoscopy in 5 years ARTHRITIS,RHEUMATOID 07/07/2006 016 [id number] 07/07/200611/01 Overview: Renamed Per Clinical Trials Billing Project. Pt is a participant in the [employer] (Consortium of Rheumatology Researchers [place]) national data collection study. For further information please call Dr Hari Clark or Julia White, RN, CCRC at [phone] [facility] RESEARCH OTHER*[id number] 07/07/2006 01/28/2010 Overview: Renamed Per Clinical Trials Billing Project. Pt is a participant in the [employer] (Consortium of Rheumatology Researchers [place]) national data collection study. For further information please call Dr Hari Clark or Julia White, RN, CCRC at [phone] Hearing loss 12/02/1999 03/29/2013 documented as of this encounter (statuses as of 06/09/2023) Immunizations Name Administration Dates Next Due COVID-19 [...] Sign Reading Time Taken Comments Blood Pressure 157/72 06/09/2023 8:50 AM EST Pulse 97 06/09/2023 8:50 AM EST Temperature 36.9 C (98.4 F) 06/09/2023 8:50 AM ES T Respiratory Rate 18 06/09/2023 8:50 AM EST Oxygen Saturation 95% 06/09/2023 8:50 AM EST Inhaled Oxygen Concentration - - Weight 135.9 kg (299 lb 8 oz) 06/09/2023 8:50 AM EST Height - - Body Mass Index 37.94 04/10/2023 11:57 AM EDT documented in this encounter Progress Notes * Patrice Puente MD - 06/09/2023 9:15 AM EST JANES WHARTON MR # [id number] :1945 78-year-old male, Date of consultation:04/10/2023 DIAGNOSIS: Prostate cancer, Evens score 4+5, right iliac chain lymph node measuring about 2 cm in the imaging study. PSA was around 8.49 in December 2022 He completed radiation treatment at [facility] on 06/08/2023. He had worsening anemia when he was diagnosed prostate cancer, most likely had diverticular bleed. Self-catheterization because of bladder outlet obstruction because of prostate cancer diagnosis. Chronic renal insufficiency, now serum creatinine level is around 1.5 mg/dL. CURRENT TREATMENT: Received 1st treatment with Lupron (30 mg ) on 04/08/2023. - will continue Lupron every 4 monthly under the guidance of Dr. Sexton. -could not tolerate Casodex, he took It for about 1 week before that but he stopped because of somedizziness and some noticed some blood in the stool which may not be related to that. - Zytiga and prednisone combination. (Started on 04/27/2023). DIAGNOSTIC WORKUP: - PSA--> 5.1 ( 04/10/2022)--> 8.49 (12/10/2022). Biopsy from the prostate gland on 03/16/2023 ) --> prostatic adenocarcinoma Quinton score 4+5, all 15 cores positive for prostate cancer. PET CT SKULL BASE TO MID THIGH PSMA (03/24/2023 ) 1. Enlarged prostate with diffusely increased radiotracer uptake which likely corresponds to the patient's prostate cancer. 2. Radiotracer avid right iliac chain lymph node measuring up to 2.0 cm, concerning for metastasis. 3. Severely distended bladder with associated moderate bilateral hydronephrosis, likely related to bladder outlet obstruction. 4. Nonspecific lobulated lesion anterior to the left submandibular gland measuring 2.0 cm with avidradiotracer uptake and question of central hypodensity. Recommend clinical correlation with palpation and consider ultrasound for further evaluation. 5. Nonspecific sclerotic lesion in the L3 vertebral body measuring 0.5 cm without significant radiotracer uptake. Recommend continued attention on follow- up studies. OTHER IMPORTANT HISTORY: -rheumatoid arthritis, he is on methotrexate, -he had COVID-19 infection in August 2022 -diverticulosis, hemorrhoidal disease, may be causing local bleeding problem -frequent UTI, last episode was in November 2022, urine culture grew Klebsiella, he was treated with Bactrim antibiotic at that time. -hypertension. INTERVAL HISTORY: He has come the clinic for the follow-up, accompanied by his son in the office . Yesterday he completed radiation treatment to the prostate at [facility]. Overalltolerated treatment well, some tiredness noted since radiation. He denies any new lower GI bleed, overall had possible diverticular bleed earlier with a drop in the hemoglobin level, gradual improvement hemoglobin level noted. He self catheterize on a regular basis, no frequent UTI, no nausea, no vomiting, no blood in the urine, no infections, very mild bilateral leg edema, current weight is around 219 lb which is stable. No new cardiac or pulmonary symptom. He gets Lupron under the guidance of Dr. Sexton, next dose is due in August of 2023. Past Medical History: Diagnosis Date Arthritis, rheumatoid (HCC) Benign neoplasm of colon 05/10/07 adenomatous repeat colonoscopy in 5 years Degeneration of lumbosacral intervertebral disc Elevated blood pressure, situational Fuchs' corneal dystrophy 10/19/2018 Impaired fasting glucose Macular degeneration Morbid (severe) obesity due to excess calories (HCC) 08/19/2017 Past Surgical History: Procedure Laterality Date COLONOSCOPY W/ LESION REMOVAL, SNARE 05/10/07 adenomatous repeat in 5 years COLONOSCOPY, DIAGNOSTIC (RECTUM) 05/10/2013 COLONOSCOPY FLEXIBLE PROXIMAL DIAGNOSTIC performed by Teddy Rizvi MD at ENDOSCOPY [facility] COLONOSCOPY, DIAGNOSTIC (RECTUM) 01/21/2019 diverticulosis, repeat 5 yrs/COLONOSCOPY FLEXIBLE PROXIMAL DIAGNOSTIC performed by Teddy Rizvi MD at ENDOSCOPY [facility] REMOVE TONSILS & ADENOIDS, AGE 12+ 1979 Tonsillectomy/Adenoids,12+ Y/O Current Outpatient Medications Medication Sig Dispense Refill ASPIR-81 81 MG PO TBEC 1 TABLET DAILY 0 Folic Acid 1 MG Oral Tablet Take 1 Tablet by mouth in the morning. 90 Tablet 3 Clindamycin Phosphate 1 % External Lotion Apply topically to affected area 2 times a day. To affected area of skin. (Patient not taking: Reported on 04/23/2023) 60 mL 0 Triamcinolone Acetonide 0.1 % External Cream (Aristocort) Apply topically to affected area 2 times a day. To affected area. (Patient not taking: Reported on 04/23/2023) 30 g 1 Tamsulosin HCl 0.4 MG Oral Capsule (Flomax) [...] CAPSULE BY MOUTH EVERY DAY 90 Capsule2 No current facility-administered medications for this visit. Family History Problem Relation Age of Onset Arthritis Mother RHEUMATOID Gastro-intestinal disorder Mother PUD Gastro-intestinal disorder Father PUD Diabetes Uncle (Unspecified) Arthritis Sister osteo Arthritis Sister osteo Social History Socioeconomic History Marital status: Spouse name: Keyanna Number of children: 2 Years of education: Not on file Highest education level: Not on file Occupational History Employer: [employer] Tobacco Use Smoking status: Former Packs/day: 1.00 Years: 35.00 Additional pack years: 0.00 Total pack years: 35.00 Types: Cigarettes Quit date: 08/03/1997 Years since quittin.8 Passive exposure: Past Smokeless tobacco: Never Tobacco comments: occasional cigar Vaping Use Vaping Use: Never used Substance and Sexual Activity Alcohol use: Not Currently Drug use: No Sexual activity: Yes Partners: Female Other Topics Concern Service Not Asked Blood Transfusions Not Asked Caffeine Concern Not Asked Occupational Exposure Not Asked Hobby Hazards Not Asked Sleep Concern No Stress Concern Not Asked Weight Concern Not Asked Special Diet Not Asked Back Care Not Asked Exercise Not Asked Bike Helmet Not Asked Seat Belt Yes Self-Exams Not Asked Social History Narrative Not on file Social Determinants of Health Financial Resource Strain: Not on file Food Insecurity: No Food Insecurity (12/16/2022) Hunger Vital Sign Worried About Running Out of Food in the Last Year: Never true Ran Out of Food in the Last Year: Never true Transportation Needs: Not on file Physical Activity: Not on file Stress: Not on file Social Connections: Not on file Intimate Partner Violence: Not on file Housing Stability: Not on file On Exam: BP 157/72 (BP Site: Left Arm, BP Position: Sitting, BP Cuff Size: Regular) | Pulse 97 | Temp 36.9 C (98.4 F) (Tympanic) | Resp 18 | Wt 135.9 kg (299 lb 8 oz) | SpO2 95% | BMI 37.94 kg/m | BSA 2.67 m .Constitutional: Patient is alert, cooperative and oriented x 3. Well built man, Patient is in no acute distress. HEENT:No icterus, no pallor, Throat and pharynx normal. Sinuses are non-tender. Neck: Supple and without lymphadenopathy or masses. No JVD. No Palpable supraclavicular lymph nodes. Lungs: Clear to auscultation. Bilateral symmetric air entry. No wheezing or rhonchi. Cardiovascular: Normal heart sounds, no murmurs.Regular rate and rhythm. Abdomen: soft, nontender, no hepatomegaly, no splenomegaly. Bowel sounds are normal. Neurological: No gross focal neurological deficit; walks with a normal gait. Extremities: No finger clubbing, No cyanosis. No leg edema. Skin:: No skin rash. SPINE: No spinal or paraspinal tenderness. LABS: Hemoglobin level was around 13.2 earlier in December 2022. -serum creatinine increased to around 2.4 on 03/26/2023. Blood workup done on 04/10/2023: -BUN/Creat: 20/1.9, normal liver function test -WBC 12.4, H&H of 8.1/26, Platelet count [id number]. -PSA level around 4.38 (04/10/2023, before he was started on Zytiga). Blood workup done on 06/08/2023: -WBC 9400, H&H of 11.4/36, Platelet count of [id number] -BUN/Creat: 29/1.5, Calcium 9.1, normal liver function test. -PSA level --> pending. IMAGING: As described above. ASSESSMENT AND PLAN: 78-year-old male, a case of prostatic adenocarcinoma Quinton score 4+5, imaging study also showed right iliac chain lymph node measuring about 2 cm, N1 disease, PSA was around 8. No evidence of distant metastatic disease on PET-CT scan - he completed radiation treatment to the prostate at [facility] on 06/08/2023. Bladder outlet obstruction, he does self-catheterization, now serum creatinine stable around 1.5 mg/dL. Some tiredness noted after the recent radiation treatment, otherwise doing well Denies any new lower GI bleed, earlier hemoglobin dropped down to around 8.1 g/dL when he had lowerGI bleed from the diverticulosis. It has improved. Hemoglobin level improved to around 11.4 g/dL. He is due for next dose of Lupron in August 2023 under the guidance of Dr. Sexton. Currently he is on Zytiga and prednisone combination which was started on 04/27/2023, tolerated It well. Will check PSA level today. I am planning to see him back in the clinic in about [address] Patrice Puente Hem/Onc (This note was completed using the dictation program Fluency Direct. As such, there may be misspellings word substitutions, or other variations that should not change the essence of the clinical content of this encounter note. If there is need for further clarification, please direct questions to the provider listed above.) documented in this encounter Nursing Notes * Claudia Diallo LPN - 06/09/2023 8:51 AM EST Patient identifed by name and birthdate Do you have any concerns about pain management for today's visit? No Living Will or Advance Directive for Health Care as noted on the problem list. [facility] is a way you can talk to your provider on line through e-mail. Would you like to sign up? I can activate it for you? NO Filed Vitals: 06/09/23 0850 BP: 157/72 Pulse: 97 Resp: 18 Temp: 36.9 C (98.4 F) TempSrc: Tympanic SpO2: 95% Weight: 135.9 kg (299 lb 8 oz) Patient was instructed to not get up on the exam table/exam chair until directed and assisted by their provider; patient is to remain seated in the chair/ wheelchair/ exam table/ exam chair for fall prevention and safety reasons. Patient is aware to have assistance to step down off exam table/exam chair with personnel. Patient voiced full comprehension of instructions. documented in this encounter Plan of Treatment Upcoming Encounters Date Type Department Care Team (Late st Contact Info) Description 06/22/2023 10:30 AM EST Laboratory Laboratory, [place] [address] [place] [id number] [facility] [address] [place] [address] 06/22/2023 11:10 AM EST Office Visit [facility] [address] [place] [address] Rhianna Huitron, [address] [place] [address] 06/23/2023 9:30 AM EST Pharmacy Pharmacy Hematology Oncology [facility] [address] [place] [address] [facility] Hem/Onc [address] [place] [address] 08/14/2023 11:00 AM EST Nurse Only Urology, [facility] [address] [facility] [place] [address] [place] Nurse Urology [facility] [address] [facility] [place] [address] 09/09/2023 11:15 AM EST Office Visit Hematology/Oncology [facility] [address] [facility] [place] [address] Patrice Puente MD [address] [place] [address] 09/10/2023 9:40 AM EST Office Visit Rheumatology [address] [place] [address] Mendel Wilson MD [address] [place] [address] [place] [address] 09/11/2023 9:15 AM EST Office Visit Urology, [facility] [address] [facility] [place] [address] Vinay Sexton MD [address] [facility] [address] [place] [address] Pending Results Name Type Priority Associated Diagnoses Date /Time PSA Lab Routine Prostate cancer (HCC) 06/08/2023 11:22 AM EST Scheduled Orders Name Type Priority Associated Diagnoses Orde r Schedule PSA Lab Routine Prostate cancer (HCC) Expected: 06/09/2023, Expires: Scheduled Procedures Name Priority Associated Diagnoses Date/Ti me COLONOSCOPY FLEXIBLE PROXIMAL DIAGNOSTIC Recall Hx of colonic polyps Health Maintenance Due Date Last Done Comments CKD PHOS USE SMARTSET 89727 02/23/1963 Hepatitis B (1 of 3 - [...] Additional history exists CKD HGB USE SMARTSET 06181 06/08/202406/08, 06/08/2023, 05/25/2023, Additional history exists DTaP,Tdap,and Td Vaccines (3 - Td or Tdap) 12/04/2026 12/04/2016, 12/03/2006, 12/15/1996, Additional history exists Pneumococcal Vaccine: 65+ Years Completed 10/02/2014, 09/01/2011, 07/07/2006 Zoster Vaccines Completed 01/05/2020, 08/05, 10/02/2014 VITAMIN D LEVEL ONCE IN A LIFETIME-USE SMARTSET# [id number] Completed 05/27/2021, 09/07/2019, 01/10/2019, Additional history exists [...] prostate documented in this encounter Care Teams Optics Technical Officer Relationship Specialty Start Date End Date Rhianna Huitron DO [address] [place] [address] PCP - General Family Medicine 07/11/19 documented as of this encounter"
--- OUTSIDE RECORDS SUMMARY | 2023-09-01 04:45 | External Medical Summary ---
Author Name Unknown Address Unknown Organization [id number]:LABORATORY [facility] - [address] [place] [place] [address] Laboratory Report Ordering Provider Test Date Status ISAIAH YOUNG 06/08/2023 11:22:37 Final Observation Date Value Abnormality Reference (Units ) Status MYCODE SPECIMEN-SST 06/08/2023 11:22:37 Freezing of extracted DNA, whole blood and/or serum. Final Performing Location LABORATORY [facility] - [address] [facility] [address]
--- OUTSIDE RECORDS SUMMARY | 2023-09-01 04:45 | External Medical Summary ---
Author Name Unknown Address Unknown Organization [id number]:[facility] [address] [facility] [address] [facility] [address] Laboratory Report Ordering Provider Test Date Status DESIREE STEPHENS 06/22/2023 10:38:54 Final Observation Date Value Abnormality Reference (Units ) Status HbA1C 06/22/2023 10:38:54 6.1 Above high normal 4. 0-5.6 (%) Final The use of HbA1c to monitor glycemic status is based on normal hemoglobin and HbA composition. This test should not be used in patients with abnormal hemoglobin that affects the half life of the red blood cell or the in vivo glycation rates. Glucose, estimated average 06/22/2023 10:38:54 128 Above high normal <126 (mg/dL) Fin al Performing Location [facility] [address]
--- OUTSIDE RECORDS SUMMARY | 2023-09-01 04:45 | External Medical Summary ---
Author Name Unknown Address Unknown Organization [id number]:LABORATORY [facility] - [address] [place] [address] Laboratory Report Ordering Provider Test Date Status JOHNATHON CASILLAS 06/08/2023 11:22:37 Final Observation Date Value Abnormality Reference (Units ) Status PSA 06/08/2023 11:22:37 0.19 <4.10 (ng/ mL) Final Performing Location LABORATORY [facility] - [address] [place] [address]
--- OUTSIDE RECORDS SUMMARY | 2023-09-01 04:45 | External Medical Summary | Summary of Care ---
Author Name Unknown Organization [facility] Address [address] [place] [address] Phone [phone] Care Team Providers Care Learning Coordinator Name Role Phone Rhianna Huitron DO Primary Care Provider Reason for Visit * Reason Onset Date Comments Test Results Lab 06/10/2023 Encounter Details Date Type Department Care Team (Late st Contact Info) Description 06/10/2023 Telephone Hematology/Oncology Treatment, [place] [address] [place] [address] Patrice Puente MD [address] [place] [address] Test Results Lab Allergies Active Allergy Reactions Criticality Noted Date Comments Brent Inhibitors Cough Low 11/26/2017 Alendronate Sodium Muscle pain 04/11/2019 Heartburn, constipation, joint pain Misoprostol Diarrhea 08/08/2003 Niacin Er 11/26/2010 Gas, hot flashes Pollen 01/01/2018 Watery eyes, sneezing Pravastatin 02/26/2007 Upset stomach, all .Statins Simvastatin 02/26/2007 Upset stomach documented as of this encounter (statuses as of 06/10/2023) Medications Medication Sig Dispensed Refills Start Date [...] as of this encounter (statuses as of 06/10/2023) Active Problems Problem Noted Date Diagnosed Date [...] glucose 12/16/2005 Macular degeneration 12/02/1999 DISC DIS [id number] documented as of this encounter (statuses as of 06/10/2023) Resolved Problems Problem Noted Date Diagnosed Date Resolved Date Prediabetes 11/08/2018 04/17/2022 Overview: Per Prediabetes protocol #1 Morbid (severe) obesity due to excess calories 08/19/2017 03/09/2019 Infective otitis externa 09/08/2012 Cough 07/03/2012 08/18/2012 Benign neoplasm of colon 05/10/2007 Overview: adenomatous repeat colonoscopy in 5 years ARTHRITIS,RHEUMATOID 07/07/2006 016 [id number] 07/07/200611/01 Overview: Renamed Per Clinical Trials Billing Project. Pt is a participant in the [employer] (Consortium of Rheumatology Researchers [place]) national data collection study. For further information please call Dr Hari Clark or Julia White, RN, CCRC at [phone] [facility] RESEARCH OTHER*[id number] 07/07/2006 01/28/2010 Overview: Renamed Per Clinical Trials Billing Project. Pt is a participant in the [employer] (Consortium of Rheumatology Researchers [place]) national data collection study. For further information please call Dr Hari Clark or Julia White, RN, CCRC at [phone] Hearing loss 12/02/1999 03/29/2013 documented as of this encounter (statuses as of 06/10/2023) Immunizations Name Administration Dates Next Due COVID-19 mRNA, LNP-s, No Pre serve, 2-Dose Series (Daric) 06/14/2021,10/10/2020,09/12/2020 COVID-19, LNP-s, No Preserve , Yousuf-sucrose, [...] encounter Miscellaneous Notes * Telephone Encounter - Alissa Beebe RN - 06/10/2023 7:[address] Puente: "PSA level--> 0.19 (06/09/2023) Significant drop in the PSA level noted and that is encouraging result. Will continue Lupron, Zytiga and prednisone combination. Repeat PSA in 3 months " MyG sent. documented in this encounter Plan of Treatment Upcoming Encounters Date Type Department Care Team (Late st Contact Info) Description 06/22/2023 10:30 AM EST Laboratory Laboratory, [place] [address] [place] [facility] [place] [phone] [place], Laboratory [address] [place] [address] 06/22/2023 11:10 AM EST Office Visit Family Practice, [place] [address] [place] [facility] [place] [phone] Rhianna Huitron DO [address] [facility] [place] [address] 06/23/2023 9:30 AM EST Pharmacy Pharmacy Hematology Oncology [address] [place] [address] [facility] [place] [facility] Hem/Onc [address] [place] [address] 08/14/2023 11:00 AM EST Nurse Only Urology, [facility] [address] [facility] [place] [address] [facility] Nurse [facility] [address] [facility] [place] [address] 09/09/2023 11:15 AM EST Office Visit Hematology/Oncology [facility] [address] [facility] [place] [address] Patrice Puente MD [address] [facility] [place] [address] 09/10/2023 9:40 AM EST Office Visit Rheumatology [place] [id number] [facility] [place] [address] Mendel Wilson MD [address] [place] [address] 09/11/2023 9:15 AM EST Office Visit Urology, [facility] 132 [place] [address] Vinay Sexton MD [address] [place] [address] [address] [address] Scheduled Orders Name Type Priority Associated Diagnoses Orde r Schedule PSA Lab STAT Prostate cancer (HCC) Expected: 09/10/2023 (Approximate), Expires: 06/10/2024 Scheduled Procedures Name Priority Associated Diagnoses Date/Ti me COLONOSCOPY FLEXIBLE PROXIMAL DIAGNOSTIC Recall Hx of colonic polyps Health Maintenance Due Date Last Done Comments CKD PHOS USE SMARTSET 34244 02/23/1963 Hepatitis B (1 of 3 - Risk 3-dose series) 2006 DXA Scan 01/10/2021 01/10/2019, 12/12/2005, 07/07/2006 Depression Screening 03/13/2021 03/13/2020 COVID-19 Vaccine [...] Additional history exists CKD HGB USE SMARTSET 65167 06/08/202406/08, 06/08/2023, 05/25/2023, Additional history exists DTaP,Tdap,and Td Vaccines (3 - Td or Tdap) 12/04/2026 12/04/2016, 12/03/2006, 12/15/1996, Additional history exists Pneumococcal Vaccine: 65+ Years Completed 10/02/2014, 09/01/2011, 07/07/2006 Zoster Vaccines Completed 01/05/2020, 08/05, 10/02/2014 VITAMIN D LEVEL ONCE IN A LIFETIME-USE SMARTSET# [id number] Completed 05/27/2021, 09/07/2019, 01/10/2019, Additional history exists [...] prostate documented in this encounter Care Teams Learning Coordinator Relationship Specialty Start Date End Date Rhianna Huitron DO [address] [place] [address] PCP - General Family Medicine 07/11/19 documented as of this encounter
--- OUTSIDE RECORDS SUMMARY | 2023-09-01 04:45 | External Medical Summary | Summary of Care ---
Author Name Unknown Organization [facility] Address [address] [place] [address] Phone [phone] Care Team Providers Care General Administrator Name Role Phone Rhianna Huitron DO Primary Care Provider Reason for Visit * Reason Comments Outpatient Testing Encounter Details Date Type Department Care Team (Late st Contact Info) Description 06/22/2023 10:30 AM EST Laboratory Laboratory, [place] [address] [place] [address] [facility] [address] [place] [address] Encounter for long-term (current) use of medications; Prostate cancer (HCC); Anemia, unspecified type; MyCode Research Other*[id number] Allergies Active Allergy Reactions Criticality Noted Date [...] glucose 12/16/2005 Macular degeneration 12/02/1999 DISC DIS [id number] documented as of this encounter (statuses as of 06/22/2023) Resolved Problems Problem Noted Date Diagnosed Date Resolved Date Prediabetes 11/08/2018 04/17/2022 Overview: Per Prediabetes protocol #1 Morbid (severe) obesity due to excess calories 08/19/2017 03/09/2019 Infective otitis externa 09/08/2012 Cough 07/03/2012 08/18/2012 Benign neoplasm of colon 05/10/2007 Overview: adenomatous repeat colonoscopy in 5 years ARTHRITIS,RHEUMATOID 07/07/2006 016 [id number] 07/07/200611/01 Overview: Renamed Per Clinical Trials Billing Project. Pt is a participant in the [employer] (Consortium of Rheumatology Researchers [place]) national data collection study. For further information please call Dr Hari Clark or Julia White, RN, CCRC at [phone] [employer] RESEARCH OTHER*[id number] 07/07/2006 01/28/2010 Overview: Renamed Per Clinical Trials Billing Project. Pt is a participant in the [employer] (Consortium of Rheumatology Researchers [place]) national data collection study. For further information please call Dr Hari Clark or Julia White, RN, CCRC at [phone] Hearing loss 12/02/1999 03/29/2013 documented as of [...] Description 06/22/2023 11:10 AM EST Office Visit [facility] [address] [place] [address] Rhianna Huitron [address] [place] [address] Arrived 06/23/2023 9:30 AM EST Pharmacy Pharmacy Hematology Oncology [facility] [address] [place] [address] [facility] Hem/Onc [address] [place] [address] 08/14/2023 11:00 AM EST Nurse Only Urology, [place] [address] [place] [address] Nurse [facility] [place] [address] [place] [address] 09/09/2023 11:15 AM EST Office Visit Hematology/Oncology Jayashree Hobbs [place] [address] [facility] [place] [address] Patrice Puente MD [address] [place] [address] 09/10/2023 9:40 AM EST Office Visit Rheumatology [facility] [address] [employer] [place] [address] Mendel Wilson MD [address] [place] [address] 09/11/2023 9:15 AM EST Office Visit Urology, [facility] [address] [place] [address] Vinay Sexton MD [address] [place] [address] [place] [address] Pending Results Name Type Priority Associated Diagnoses Date /Time COMPREHENSIVE METABOLIC PANEL Lab STAT Prostate cancer (HCC) 06/22/2023 10:38 AM EST CBC WITH WBC DIFFERENTIAL Lab STAT Prostate cancer (HCC) Anemia, unspecified type 06/22/2023 10:38 AM EST MYCODE SUBSEQUENT ADULT Lab Routine MyCode Research Other*[id number] 06/22/2023 10:38 AM EST CBC Lab STAT Prostate cancer (HCC) Anemia, unspecified type 06/22/2023 10:38 AM EST DIFFERENTIAL, AUTOMATED Lab STAT Prostate cancer (HCC) Anemia, unspecified type 06/22/2023 10:38 AM EST MYCODE SST1 Lab Routine MyCode Research Other*[id number] 06/22/2023 10:38 AM EST MYCODE SST2 Lab Routine MyCode Research Other*[id number] 06/22/2023 10:38 AM EST Scheduled Procedures Name Priority Associated Diagnoses Date/Ti me COLONOSCOPY FLEXIBLE PROXIMAL DIAGNOSTIC Recall Hx of colonic polyps Health Maintenance Due Date Last Done Comments CKD PHOS USE SMARTSET 00949 02/23/1963 Hepatitis B (1 of 3 - [...] Additional history exists CKD HGB USE SMARTSET 37401 06/08/202406/08, 06/08/2023, 05/25/2023, Additional history exists DTaP,Tdap,and Td Vaccines (3 - Td or Tdap) 12/04/2026 12/04/2016, 12/03/2006, 12/15/1996, Additional history exists Pneumococcal Vaccine: 65+ Years Completed 10/02/2014, 09/01/2011, 07/07/2006 Zoster Vaccines Completed 01/05/2020, 08/05, 10/02/2014 VITAMIN D LEVEL ONCE IN A LIFETIME-USE SMARTSET# [id number] Completed 05/27/2021, 09/07/2019, 01/10/2019, Additional history exists GARDASIL-HPV IMMUNIZATION SERIES Aged Out No longer eligible based on patient's age to complete this topic MENINGOCOCCAL (MENACTRA/MENVEO) Aged Out No longer eligible based on patient's age to complete this topic documented as of this encounter Medical Devices Not on filedocumented as of this encounter Visit Diagnoses Diagnosis Encounter for long-term (current) use of medications Encounter for long-term (current) use of other medications Prostate cancer (HCC) Malignant neoplasm of prostate Anemia, unspecified type MyCode Research Other*[id number] documented in this encounter Care Teams General Administrator Relationship Specialty Start Date End Date Rhianna Huitron DO [address] [place] [address] PCP - General Family Medicine 07/11/19 documented as of this encounter
--- OUTSIDE RECORDS SUMMARY | 2023-09-01 04:45 | External Medical Summary ---
Author Name Unknown Address Unknown Organization K01:[facility] - [address] [place] [address] Laboratory Report Ordering Provider Test Date Status ISAIAH YOUNG 06/08/2023 11:22:37 Final Observation Date Value Abnormality Reference (Units ) Status MYCODE SPECIMEN-SST 06/08/2023 11:22:37 Freezing of extracted DNA, whole blood and/or serum. Final Performing Location [facility] - [address] [facility] [address]
--- OUTSIDE RECORDS SUMMARY | 2023-09-01 04:45 | External Medical Summary ---
Author Name Unknown Address Unknown Organization [id number]:[facility] [place] - [address] [facility] [address] [facility] [address] Laboratory Report Ordering Provider Test Date Status ISAIAH YOUGN 06/22/2023 10:38:54 Final Observation Date Value Abnormality Reference (Units ) Status MYCODE SPECIMEN-SST 06/22/2023 10:38:54 Freezing of extracted DNA, whole blood and/or serum. Final Performing Location [facility] [address] [facility] [address]
--- OUTSIDE RECORDS SUMMARY | 2023-09-01 04:45 | External Medical Summary ---
Author Name Unknown Address Unknown Organization [id number]:[facility] [place] - [facility] [address] [facility] [address] [facility] [address] Laboratory Report Ordering Provider Test Date Status JOHNATHON CASILLAS 06/08/2023 11:22:37 Final Observation Date Value Abnormality Reference (Units ) Status WBC, Total 06/08/2023 11:22:37 9.46 4.00-10.80 (K/uL) Final RBC 06/08/2023 11:22:37 3.93 4.50-5.25 (M/uL) Final Hemoglobin 06/08/2023 11:22:37 11.4 Below low normal 14.0-16.8 (g/dL) Final HCT 06/08/2023 11:22:37 36.1 Below low normal 40.0-48.4 (%) Final MCV 06/08/2023 11:22:37 91.9 82.0-99.5 (fL) Final MCH 06/08/2023 11:22:37 29.0 27.0-34.0 (pg) Final MCHC 06/08/2023 11:22:37 31.6 32.0-36.0 (g/dL) Final RDW 06/08/2023 11:22:37 15.5 11.5-15.5 (%) Final Platelets 06/08/2023 11:22:37 263 140-400 (K/uL) Final MPV 06/08/2023 11:22:37 10.9 6.6-11.1 (fL) Final Nucleated erythrocytes/100 leukocytes [Ratio] in Blood by Automated count 06/08/2023 11:22:37 0 <=0 (/100 WBCs) Final Performing Location LAB[facility] - [address] [facility] [address]
--- OUTSIDE RECORDS SUMMARY | 2023-09-01 04:45 | External Medical Summary ---
Author Name Unknown Address Unknown Organization K01:[facility] [place] [address] [facility] [address] Laboratory Report Ordering Provider Test Date Status JOHNATHON CASILLAS 06/22/2023 10:38:54 Final Observation Date Value Abnormality Reference (Units ) Status SYNC LEUKOCYTES IN BLOOD BY AUTOMATED COUNT 06/22/2023 10:38:54 8.54 4.00-10.80 (K/uL) Final Segs 06/22/2023 10:38:54 84.7 Above high normal 40.0-75.0 (%) Final Lymphs % 06/22/2023 10:38:54 4.4 Below low normal 18.0-42.0 (%) Final Monos 06/22/2023 10:38:54 6.8 1.0-11.0 (%) Final Eosinophils 06/22/2023 10:38:54 3.2 0.0-6.0 (%) Final Basos 06/22/2023 10:38:54 0.4 0.0-2.0 (%) Final Immature Granulocyte, Percent 06/22/2023 10:38:54 0.5 0.0-2.0 (%) Final Absolute Segs 06/22/2023 10:38:54 7.24 1.80-7.70 (K/uL) Final Lymphs, absolute 06/22/2023 10:38:54 0.38 Below low normal 1.00-4.80 (K/ul) Final Monos, Abs 06/22/2023 10:38:54 0.58 0.00-1.10 (K/uL) Final Eos, Abs 06/22/2023 10:38:54 0.27 0.00-0.70 (K/uL) Final Basos, Abs 06/22/2023 10:38:54 0.03 0.00-0.20 (K/uL) Final Immature Granulocytes, Number 06/22/2023 10:38:54 0.04 0.00-0.20 (K/uL) Final Performing Location [facility] [address] [facility] [address]
--- OUTSIDE RECORDS SUMMARY | 2023-09-01 04:45 | External Medical Summary | Summary of Care ---
Author Name Unknown Organization [facility] Address [address] [facility] [address] Phone [phone] Care Team Providers Care Veneer Jointer Offbearer Name Role Phone Rhianna Huitron DO Primary Care Provider Reason for Visit * Reason Onset Date Comments FYI 06/08/2023 Encounter Details Date Type Department Care Team (Late st Contact Info) Description 06/08/2023 Telephone [facility], [place] [address] [place] [address] Rhianna Huitron DO [address] [place] [address] FYI Allergies Active Allergy Reactions Criticality Noted Date Comments Brent Inhibitors Cough Low 11/26/2017 Alendronate Sodium Muscle pain 04/11/2019 Heartburn, constipation, joint pain Misoprostol Diarrhea 08/08/2003 Niacin Er 11/26/2010 Gas, hot flashes Pollen 01/01/2018 Watery eyes, sneezing Pravastatin 02/26/2007 Upset stomach, all .Statins Simvastatin 02/26/2007 Upset stomach documented as of this encounter (statuses as of 06/08/2023) Medications Medication Sig Dispensed Refills Start Date [...] as of this encounter (statuses as of 06/08/2023) Active Problems Problem Noted Date Diagnosed Date [...] glucose 12/16/2005 Macular degeneration 12/02/1999 DISC DIS [id number] documented as of this encounter (statuses as of 06/08/2023) Resolved Problems Problem Noted Date Diagnosed Date Resolved Date Prediabetes 11/08/2018 04/17/2022 Overview: Per Prediabetes protocol #1 Morbid (severe) obesity due to excess calories 08/19/2017 03/09/2019 Infective otitis externa 09/08/2012 Cough 07/03/2012 08/18/2012 Benign neoplasm of colon 05/10/2007 Overview: adenomatous repeat colonoscopy in 5 years ARTHRITIS,RHEUMATOID 07/07/2006 016 [id number] 07/07/200611/01 Overview: Renamed Per Clinical Trials Billing Project. Pt is a participant in the [employer] (Consortium of Rheumatology Researchers [place] national data collection study. For further information please call Dr Hari Clark or Julia White, RN, CCRC at [phone] [facility] RESEARCH OTHER*[id number] 07/07/2006 01/28/2010 Overview: Renamed Per Clinical Trials Billing Project. Pt is a participant in the [employer] (Consortium of Rheumatology Researchers [place] national data collection study. For further information please call Dr Hari Clark or Julia White, RN, CCRC at [phone] Hearing loss 12/02/1999 03/29/2013 documented as of this encounter (statuses as of 06/08/2023) Immunizations Name Administration Dates Next Due COVID-19 [...] encounter Miscellaneous Notes * Telephone Encounter - Janel Martin MED ASSIST - 06/08/2023 11:26 AM EST FYI * Telephone Encounter - Maddy Parekh - 06/08/2023 11:13 AM EST Pt wanted to let Dr. Huitron know he is getting labs on Jun 22 In case you want any also. documented in this encounter Plan of Treatment Upcoming Encounters Date Type Department Care Team (Late st Contact Info) Description 06/09/2023 9:15 AM EST Office Visit Hematology/Oncology Jayashree Hobbs [place] [address] [place] [address] Patrice Puente MD [address] [place] [address] 06/22/2023 10:30 AM EST Laboratory [facility], [place] [address] [facility] [phone] [facility] [address] [facility] [place] [id number] 06/22/2023 11:10 AM EST Office Visit [facility] [address] [place] [address] Rhianna Huitron, [address] [place] [address] 06/23/2023 9:30 AM EST Pharmacy Pharmacy Hematology Oncology [facility] [address] [place] [address] [facility] [place] Hem/Onc [address] [place] [address] 08/14/2023 11:00 AM EST Nurse Only Urology, [facility] [address] [place] [address] [facility], Nurse Urology [facility] [address] [place] [address] 09/10/2023 9:40 AM EST Office Visit Rheumatology [place] [address] [place] [address] Mendel Wilson MD [facility] [address] 09/11/2023 9:15 AM EST Office Visit Urology, [facility] [address] [place] [address] Vinay Sexton MD [address] [facility] [address] [place] [address] Scheduled Procedures Name Priority Associated Diagnoses Date/Ti me COLONOSCOPY FLEXIBLE PROXIMAL DIAGNOSTIC Recall Hx of colonic polyps Health Maintenance Due Date Last Done Comments CKD PHOS USE SMARTSET 91819 02/23/1963 Hepatitis B (1 of 3 - Risk 3-dose series) 2006 DXA Scan 01/10/2021 01/10/2019, 12/2005, 07/07/2006 Depression Screening 03/13/2021 03/13/2020 COVID-19 Vaccine (2022- season) 2023 05/23/2022, 12/25/2021, 06/14/2021, Additional history exists Influenza Vaccine (FLU shot) (#1) 2023 05/08/2022, 05/07/2021, 04/17/2020, Additional history exists Albumin/Creatinine Ratio 04/10/2023 04/10/2022, 10/2006 *BISPHONATE OR OTHER ACCEPTABLE MEDICATION NEEDED FOR OSTEOPOROSIS (REFER TO SMARTSET #1146) 04/29/2023 HbA1c 06/26/2023 12/24/2022, 11/01, 04/10/2022, Additional history exists GFR 11/24/2023 05/25/2023, 04/2023, 04/21/2023, Additional history exists Diabetic Foot Exam 12/25/2023 12/24/2022 COLONOSCOPY-EVERY 5 YRS AGES 18-100 01/22/2024 01/21/2019, 01/21/2019, 05/10/2013, Additional history exists Diabetic Eye Exam 01/31/2024 01/30/2023, , 01/25/2021, Additional history exists CKD HGB USE SMARTSET 52779 05/25/202405/25, 05/25/2023, 05/11/2023, Additional history exists DTaP,Tdap,and Td Vaccines (3 - Td or Tdap) 12/04/2026 12/04/2016, 12/03/2006, 12/15/1996, Additional history exists Pneumococcal Vaccine: 65+ Years Completed 10/02/2014, 09/01/2011, 07/07/2006 Zoster Vaccines Completed 01/05/2020, 08/05, 10/02/2014 VITAMIN D LEVEL ONCE IN A LIFETIME-USE SMARTSET# [id number] Completed 05/27/2021, 09/07/2019, 01/10/2019, Additional history exists GARDASIL-HPV IMMUNIZATION SERIES Aged Out No longer eligible based on patient's age to complete this topic MENINGOCOCCAL (MENACTRA/MENVEO) Aged Out No longer eligible based on patient's age to complete this topic documented as of this encounter Medical Devices Not on filedocumented as of this encounter Care Teams Veneer Jointer Offbearer Relationship Specialty Start Date End Date Rhianna Huitron DO [address] [place] [address] PCP - General Family Medicine 07/11/19 documented as of this encounter
--- OUTSIDE RECORDS SUMMARY | 2023-09-01 04:45 | External Medical Summary ---
Author Name Unknown Address Unknown Organization K01:[facility] [place] [address] [facility] [address] [facility] [address] Laboratory Report Ordering Provider Test Date Status ISAIAH YOUNG 06/22/2023 10:38:54 Final Observation Date Value Abnormality Reference (Units ) Status MYCODE SPECIMEN-SST 06/22/2023 10:38:54 Freezing of extracted DNA, whole blood and/or serum. Final Performing Location [facility] [place] [address] [facility] [address]
--- OUTSIDE RECORDS SUMMARY | 2023-09-01 04:45 | External Medical Summary ---
Author Name Unknown Address Unknown Organization K01:[facility] [facility] [address] [facility] [address] [facility] [address] Laboratory Report Ordering Provider Test Date Status JOHNATHON CASILLAS 06/22/2023 10:38:54 Final Observation Date Value Abnormality Reference (Units ) Status WBC, Total 06/22/2023 10:38:54 8.54 4.00-10.80 (K/uL) Final RBC 06/22/2023 10:38:54 3.81 4.50-5.25 (M/uL) Final Hemoglobin 06/22/2023 10:38:54 11.1 Below low normal 14.0-16.8 (g/dL) Final HCT 06/22/2023 10:38:54 35.9 Below low normal 40.0-48.4 (%) Final MCV 06/22/2023 10:38:54 94.2 82.0-99.5 (fL) Final MCH 06/22/2023 10:38:54 29.1 27.0-34.0 (pg) Final MCHC 06/22/2023 10:38:54 30.9 32.0-36.0 (g/dL) Final RDW 06/22/2023 10:38:54 15.7 11.5-15.5 (%) Final Platelets 06/22/2023 10:38:54 215 140-400 (K/uL) Final MPV 06/22/2023 10:38:54 10.8 6.6-11.1 (fL) Final Nucleated erythrocytes/100 leukocytes [Ratio] in Blood by Automated count 06/22/2023 10:38:54 0 <=0 (/100 WBCs) Final Performing Location [facility] [place] [address] [facility] [address] [facility] [address]
--- OUTSIDE RECORDS SUMMARY | 2023-09-01 04:45 | External Medical Summary | Summary of Care ---
Author Name Unknown Organization [facility] Address [address] [place] [address] Phone [phone] Care Team Providers Care Rocket Motor Tester Name Role Phone Rhianna Huitron DO Primary Care Provider [phone] Encounter Details Date Type Department Care Team (Late st Contact Info) Description 06/15/2023 Orders Only Outcomes Research Department [address], [place] [id number] Nicole Robertson CHRA [employer] Research Other*[id number] Allergies Active Allergy Reactions Criticality Noted Date Comments Brent Inhibitors Cough Low 11/26/2017 Alendronate Sodium Muscle pain 04/11/2019 Heartburn, constipation, joint pain Misoprostol Diarrhea 08/08/2003 Niacin Er 11/26/2010 Gas, hot flashes Pollen 01/01/2018 Watery eyes, sneezing Pravastatin 02/26/2007 Upset stomach, all .Statins Simvastatin 02/26/2007 Upset stomach documented as of this encounter (statuses as of 06/15/2023) Medications Medication Sig Dispensed Refills Start Date [...] as of this encounter (statuses as of 06/15/2023) Active Problems Problem Noted Date Diagnosed Date [...] glucose 12/16/2005 Macular degeneration 12/02/1999 DISC DIS [id number] documented as of this encounter (statuses as of 06/15/2023) Resolved Problems Problem Noted Date Diagnosed Date Resolved Date Prediabetes 11/08/2018 04/17/2022 Overview: Per Prediabetes protocol #1 Morbid (severe) obesity due to excess calories 08/19/2017 03/09/2019 Infective otitis externa 09/08/2012 Cough 07/03/2012 08/18/2012 Benign neoplasm of colon 05/10/2007 Overview: adenomatous repeat colonoscopy in 5 years ARTHRITIS,RHEUMATOID 07/07/2006 016 [id number] 07/07/200611/01 Overview: Renamed Per Clinical Trials Billing Project. Pt is a participant in the [employer] (Consortium of Rheumatology Researchers [place]) national data collection study. For further information please call Dr Hari Clark or Julia White, RN, CCRC at [phone] [facility]EARCH OTHER*[id number] 07/07/2006 01/28/2010 Overview: Renamed Per Clinical Trials Billing Project. Pt is a participant in the [employer] (Consortium of Rheumatology [place]) national data collection study. For further information please call Dr Hari Clark or Julia White, RN, CCRC at [phone] Hearing loss 12/02/1999 03/29/2013 documented as of this encounter (statuses as of 06/15/2023) Immunizations Name Administration Dates Next Due COVID-19 mRNA, LNP-s, No Pre serve, 2-Dose Series ([employer]) 06/14/2021,10/10/2020,09/12/2020 COVID-19, LNP-s, No Preserve , Yousuf-sucrose, [...] Description 06/22/2023 10:30 AM EST Laboratory Laboratory, [place] [address] [place] [phone] [facility] [address] [place] [address] 06/22/2023 11:10 AM EST Office Visit Family [facility] [address] [place] [phone] Rhianna Huitron, [address] [place] [address] 06/23/2023 9:30 AM EST Pharmacy Pharmacy Hematology Oncology [facility] [address] [place] [address] [facility] Hem[facility]Onc [address] [place] [address] 08/14/2023 11:00 AM EST Nurse Only Urology, [facility] [place] [address] [place] [address] Nurse [facility] [place] [address] [place] [address] 09/09/2023 11:15 AM EST Office Visit Hematology/Oncology [facility] [place] [address] [place] [address] Patrice Puente MD [address] [place] [address] 09/10/2023 9:40 AM EST Office Visit [facility]umatology [facility] [address] [facility] [place] [address] Mendel Wilson MD [address] [place] [address] 09/11/2023 9:15 AM EST Office Visit Urology, [facility] [address] [place] [address] Vinay Sexton MD 27 [facility] [address] [place] [address] Scheduled Orders Name Type Priority Associated Diagnoses Orde r Schedule MYCODE SUBSEQUENT ADULT Lab Routine My[employer] Research Other*[id number] Every 6 Months for 2 Occurrences starting 06/15/2023 until 07/04/2024 Scheduled Procedures Name Priority Associated Diagnoses Date/Ti me COLONOSCOPY FLEXIBLE PROXIMAL DIAGNOSTIC Recall Hx of colonic polyps Health Maintenance Due Date Last Done Comments CKD PHOS USE SMARTSET 25044 02/23/1963 Hepatitis B (1 of 3 - [...] Additional history exists CKD HGB USE SMARTSET 79699 06/08/202406/08, 06/08/2023, 05/25/2023, Additional history exists DTaP,Tdap,and Td Vaccines (3 - Td or Tdap) 12/04/2026 12/04/2016, 12/03/2006, 12/15/1996, Additional history exists Pneumococcal Vaccine: 65+ Years Completed 10/02/2014, 09/01/2011, 07/07/2006 Zoster Vaccines Completed 01/05/2020, 08/05, 10/02/2014 VITAMIN D LEVEL ONCE IN A LIFETIME-USE SMARTSET# [id number] Completed 05/27/2021, 09/07/2019, 01/10/2019, Additional history exists GARDASIL-HPV IMMUNIZATION SERIES Aged Out No longer eligible based on patient's age to complete this topic MENINGOCOCCAL (MENACTRA/MENVEO) Aged Out No longer eligible based on patient's age to complete this topic documented as of this encounter Medical Devices Not on filedocumented as of this encounter Visit Diagnoses Diagnosis MyCode Research Other*[id number] documented in this encounter Care Teams Rocket Motor Tester Relationship Specialty Start Date End Date Rhianna Huitron DO [address] [facility] [place] [address] PCP - General Family Medicine 07/11/19 documented as of this encounter
--- OUTSIDE RECORDS SUMMARY | 2023-09-01 04:45 | External Medical Summary | Summary of Care ---
Author Name Unknown Organization [facility] Address [address] [place] [address] Phone [phone] Care Team Providers Care Cotton Dispatcher Name Role Phone Rhianna Huitron DO Primary Care Provider Reason for Visit * Reason Comments Outpatient Testing Encounter Details Date Type Department Care Team (Late st Contact Info) Description 06/08/2023 11:20 AM EST Laboratory Laboratory, [place] [address] [place] [address] [place], [facility] [address] [place] [address] [employer] Research Other*[id number]; Prostate cancer (HCC); Anemia, unspecified type Allergies [...] glucose 12/16/2005 Macular degeneration 12/02/1999 DISC DIS [id number] documented as of this encounter (statuses as of 06/08/2023) Resolved Problems Problem Noted Date Diagnosed Date Resolved Date Prediabetes 11/08/2018 04/17/2022 Overview: Per Prediabetes protocol #1 Morbid (severe) obesity due to excess calories 08/19/2017 03/09/2019 Infective otitis externa 09/08/2012 Cough 07/03/2012 08/18/2012 Benign neoplasm of colon 05/10/2007 Overview: adenomatous repeat colonoscopy in 5 years ARTHRITIS,RHEUMATOID 07/07/2006 016 [id number] 07/07/200611/01 Overview: Renamed Per Clinical Trials Billing Project. Pt is a participant in the [employer] (Consortium of Rheumatology Researchers [place]) national data collection study. For further information please call Dr Hari Clark or Julia White, RN, CCRC at [phone] [employer] RESEARCH OTHER*[id number] 07/07/2006 01/28/2010 Overview: Renamed Per Clinical Trials Billing Project. Pt is a participant in the [employer] (Consortium of Rheumatology Researchers [place] national data collection study. For further information please call Dr Hari Clark or Julia White RN, CCRC at [phone] Hearing loss 12/02/1999 03/29/2013 documented as of [...] 06/09/2023 9:15 AM EST Office Visit [facility]ology[facility] [address] [facility] [place] [address] Patrice Puente MD [address] [facility] [place] [address] 06/22/2023 10:30 AM EST Laboratory Laboratory, [place] [address] [place] [phone] [facility] Laboratory [facility] [place] [address] 06/22/2023 11:10 AM EST Office Visit [facility], [place] [address] [place] [phone] Rhianna Huitron DO [address] [place], [place] [phone] 06/23/2023 9:30 AM EST Pharmacy Pharmacy Hematology Oncology [facility] [address] [place] [address] [facility], [facility] Hem/Onc [address] [place] [address] 08/14/2023 11:00 AM EST Nurse Only Urology, [facility] [address] [facility] [place] [address] Garrett Nurse Urology [facility] [address] [employer] [address] [place] [address] 09/10/2023 9:40 AM EST Office Visit Rheumatology [place] [address] [place] [address] Mendel Wilson MD [address] [place] [address] [place] [address] 09/11/2023 9:15 AM EST Office Visit Urology, [facility] [address] [facility] [place] [address] Vinay Sexton MD 27 [facility] [address] [place] [address] Pending Results Name Type Priority Associated Diagnoses Date /Time MYCODE SUBSEQUENT ADULT Lab Routine MyCode Research Other*[id number] 06/08/2023 11:22 AM EST COMPREHENSIVE METABOLIC PANEL Lab STAT Prostate cancer (HCC) 06/08/2023 11:22 AM EST CBC WITH WBC DIFFERENTIAL Lab STAT Prostate cancer (HCC) Anemia, unspecified type 06/08/2023 11:22 AM EST MYCODE SST1 Lab Routine [employer] Research Other*[id number] 06/08/2023 11:22 AM EST MYCODE SST2 Lab Routine [employer] Research Other*[id number] 06/08/2023 11:22 AM EST CBC Lab STAT Prostate cancer (HCC) Anemia, unspecified type 06/08/2023 11:22 AM EST DIFFERENTIAL, AUTOMATED Lab STAT Prostate cancer (HCC) Anemia, unspecified type 06/08/2023 11:22 AM EST Scheduled Procedures Name Priority Associated Diagnoses Date/Ti me COLONOSCOPY FLEXIBLE PROXIMAL DIAGNOSTIC Recall Hx of colonic polyps Health Maintenance Due Date Last Done Comments CKD PHOS USE SMARTSET 88405 02/23/1963 Hepatitis B (1 of 3 - Risk 3-dose series) 2006 DXA Scan 01/10/2021 01/10/2019, 12/2005, 07/07/2006 Depression Screening 03/13/2021 03/13/2020 COVID-19 Vaccine ( - season) 2023 05/23/2022, 12/25/2021, 06/14/2021, Additional history [...] Additional history exists CKD HGB USE SMARTSET 78942 05/25/202405/25, 05/25/2023, 05/11/2023, Additional history exists DTaP,Tdap,and Td Vaccines (3 - Td or Tdap) 12/04/2026 12/04/2016, 12/03/2006, 12/15/1996, Additional history exists Pneumococcal Vaccine: 65+ Years Completed 10/02/2014, 09/01/2011, 07/07/2006 Zoster Vaccines Completed 01/05/2020, 08/05, 10/02/2014 VITAMIN D LEVEL ONCE IN A LIFETIME-USE SMARTSET# 55651 Completed 05/27/2021, 09/07/2019, 01/10/2019, Additional history exists GARDASIL-HPV IMMUNIZATION SERIES Aged Out No longer eligible based on patient's age to complete this topic MENINGOCOCCAL (MENACTRA/MENVEO) Aged Out No longer eligible based on patient's age to complete this topic documented as of this encounter Medical Devices Not on filedocumented as of this encounter Visit Diagnoses Diagnosis MyCode Research Other*[id number] Prostate cancer (HCC) Malignant neoplasm of prostate Anemia, unspecified type documented in this encounter Care Teams Cotton Dispatcher Relationship Specialty Start Date End Date Rhianna Huitron DO [address] [place] [place] [address] PCP - General Family Medicine 07/11/19 documented as of this encounter
--- OUTSIDE RECORDS SUMMARY | 2023-09-01 04:45 | External Medical Summary ---
Author Name Unknown Address Unknown Organization K01:[facility] [place] [address] [facility] [place] [address] Laboratory Report Ordering Provider Test Date Status JOHNATHON CASILLAS 06/22/2023 10:38:54 Final Every two weeks for three mo nths, then every month (patients with moderate hep impairment every week for one month, every two weeks for two months, then every month) Observation Date Value Abnormality Reference (Units ) Status BUN 06/22/2023 10:38:54 25 Above high normal 6-20 (mg/dL) Final Creatinine 06/22/2023 10:38:54 1.6 Above high normal 0.6-1.2 (mg/dL) Final Glomerular filtration rate/1.73 sq M.predicted [Volume Rate/Area] in Serum, Plasma or Blood by Creatinine-based formula (CKD-EPI) 06/22/2023 10:38:54 45 Below low normal >=60 (mL/min) Final eGFR is calculated based on the CKD-EPI 2020 equation SODIUM 06/22/2023 10:38:54 136 135-146 (m mol/L) Final Potassium 06/22/2023 10:38:54 4.0 3.5-5.1 (m mol/L) Final Cl 06/22/2023 10:38:54 97 Below low normal 98- 107 (mmol/L) Final CO2 06/22/2023 10:38:54 25 22-32 (mmo l/L) Final Anion gap 06/22/2023 10:38:54 14 7-15 (mmol /L) Final Glucose 06/22/2023 10:38:54 127 Above high normal 70 -120 (mg/dL) Final Albumin 06/22/2023 10:38:54 3.8 3.8-5.0 (g /dL) Final AST (Aspartate aminotransferase) 06/22/2023 10:38:54 17 10-50 (U/L) Fin al Alk Phos 06/22/2023 10:38:54 84 35-130 (U/ L) Final Bilirubin, Total 06/22/2023 10:38:54 0.4 <=1 .2 (mg/dL) Final Calcium 06/22/2023 10:38:54 9.2 8.4-10.2 ( mg/dL) Final Protein 06/22/2023 10:38:54 6.5 6.0-8.3 (g /dL) Final ALT (Alanine aminotransferase) 06/22/2023 10:38:54 18 10-50 (U/L) Joe jones Performing Location LABORATORY [place] [address] [address] [facility] [address] [facility] [address]
--- OUTSIDE RECORDS SUMMARY | 2023-09-01 04:46 | External Medical Summary | Summary of Care ---
Author Name Unknown Organization [facility] Address [address] [place] [address] Phone [phone] Care Team Providers Care Row Boss Name Role Phone Kat Huitron DO Primary Care Provider Reason for Visit * Reason Comments Follow Up Encounter Details Date Type Department Care Team Description 05/19/2023 Office Visit Urology, [facility] [address] [place] [address] Vinay Sexton MD [address] [facility] [address] [place] [address] Prostate cancer (HCC)*; Elevated prostate specific antigen (PSA); History of UTI; BPH with obstruction/lower urinary tract symptoms; Obstructive uropathy Allergies Active Allergy Reactions Severity Noted Date Comments Brent Inhibitors Cough Low 11/26/2017 Alendronate Sodium Muscle pain 04/11/2019 Heartburn, constipation, joint pain Misoprostol Diarrhea 08/08/2003 Niacin Er 11/26/2010 Gas, hot flashes Pollen 01/01/2018 Watery eyes, sneezing Pravastatin 02/26/2007 Upset stomach, all .Statins Simvastatin 02/26/2007 Upset stomach documented as of this encounter (statuses as of 05/19/2023) Medications Medication Sig Dispensed Refills Start Date [...] as of this encounter (statuses as of 05/19/2023) Active Problems Problem Noted Date Prostate cancer 04/13/2023 Chronic kidney disease, stage 3a 023 Overview: Per CKD protocol Diabetes mellitus without complication 0 04/10/2022 Dyslipidemia, goal LDL below 160 020 Osteoporosis with symptom management onl y 08/29/2019 Morbid obesity with BMI of 40.0-44.9, ad ult 12/28/2018 Fuchs' corneal dystrophy 10/19/2018 History of colon polyps 10/18/2018 HTN, goal below 130/80 12/04/2016 Rheumatoid arthritis involvi ng multiple sites with positive rheumatoid factor 05/12/2016 BMI 35-39 ISOLATED (SEE ACTUAL BMI) 01/01 Overview: Per Obesity Protocol, #19 Encounter for long-term (current) use of medications 11/22/2009 Overview: ICD-10 update of inactive term ADVANCE DIRECTIVE INFORMATION 05/19/2006 Overview: Yes-advised to bring copy in to be scanned into EMR. Impaired fasting glucose 12/16/2005 Macular degeneration 12/02/1999 DISC DIS [id number] documented as of this encounter (statuses as of 05/19/2023) Resolved Problems Problem Noted Date Resolved Date Prediabetes 11/08/2018 04/17/2022 Overview: Per Prediabetes protocol #1 Morbid (severe) obesity due to excess calories 0 08/19/2017 03/09/2019 Infective otitis externa 09/08/2012 013 Cough 07/03/2012 08/18/2012 Benign neoplasm of colon 05/10/2007 019 Overview: adenomatous repeat colonoscopy in 5 years ARTHRITIS,RHEUMATOID 07/07/2006 05/12/2016 [id number] 07/07/2006 11/17/19 10 Overview: Renamed Per Clinical Trials Billing Project. Pt is a participant in the [employer] (Consortium of Rheumatology Researchers [place]) national data collection study. For further information please call Dr Hari Clark or Julia White RN, CCRC at [phone] [employer] RESEARCH OTHER*[id number] 07/07/2006 01/28/2010 Overview: Renamed Per Clinical Trials Billing Project. Pt is a participant in the [employer] (Consortium of Rheumatology Researchers [place]) national data collection study. For further information please call Dr Hari Clark or Julia White, RN, CCRC at [phone] Hearing loss 12/02/1999 03/29/2013 documented as of this encounter (statuses as of 05/19/2023) Immunizations Name Administration Dates Next Due COVID-19 [...] drink = 0.6 oz pur e alcohol) Food Insecurity Answer Date Recorded Within the past 12 months, y ou worried that your food would run out before you got money to buy more. Never true 12/16/2022 Within the past 12 months, t he food you bought just didn't last and you didn't have money to get more. Never true 12/16/2022 Sex Assigned at Date Recorded Male 10/19/2018 8:26 AM E DT Job Start Date Occupation Industry Not on file Not on file Not on file documented as of this encounter Progress Notes * Vinay Sexton MD - 05/19/2023 4:00 PM EDT [id number] PCP: KAT HUITRON [address] [place] [address] Markus Wharton is a 78 year old male, who presents for follow-up of his history of urinary retention and high-grade, high-volume prostate cancer. Patient is in the midst of his external beam radiation therapy. Radiation oncology and medical oncology notes are reviewed. He reports he feels improved from baseline. Patient notes regular CIC without difficulties. BPH: Patient is being seen for BPH today. He has had the following symptoms: slow stream, intermittency and nocturia. Severity is moderate. History of UTI. He has tried tamsulosin increased with BID. He has previously had no surgery done. Patient currently on CIC. Problem has been present for years. Problem is getting worse. Prostate cancer: Diagnosed March 2023 due to rise in PSA. High-volume grade group 5 adenocarcinoma. Lupron started April 2023. He was started on Zytega by Dr. Puente. PSMA Mar 2023: IMPRESSION 1. Enlarged prostate with diffusely increased radiotracer [...] Recommend continued attention on follow- up studies. PSA Results: Lab Results Component Value Date/Time PSA - [facility] 4.38 (H) 04/10/2023 01:02 PM PSA - [facility] 8.49 (H) 12/10/2022 08:44 AM PSA - [facility] 5.19 (H) 04/10/2022 09:07 AM PSA - [facility] 0.88 12/03/2006 09:18 AM PSA - [facility] 0.68 12/01/2005 11:34 AM PSA - [facility] 0.69 12/03/2004 09:34 AM PSA SCREENING 1.09 07/04/2010 08:41 AM Creatinine Results: Lab Results Component Value Date/Time CREATININE - [facility] 1.5 (H) 05/11/2023 11:14 AM CREATININE - [facility] 1.8 (H) 04/21/2023 10:03 AM CREATININE - [facility] 1.9 (H) 04/10/2023 01:02 PM CREATININE - [facility] 1.1 07/11/2019 01:37 PM CREATININE - [facility] 1.2 04/25/2019 09:53 AM CREATININE - [facility] 1.0 01/10/2019 09:55 AM CREATININE, RANDOM URINE - [facility] 120 04/10/2022 09:18 AM CREATININE, RANDOM URINE - [facility] 250 12/03/2006 09:18 AM CREATININE-OU[facility]IDE [facility] 1.05 02/27/2021 12:00 AM CREATININE-[facility] LAB 1.07 10/12/2020 12:00 AM CREATININE-OUTSIDE LAB 1.08 07/09/2020 12:00 AM Current Outpatient Medications Medication Sig Dispense Refill [...] .Statins Simvastatin Upset stomach Brent Inhibitors Cough Social History: Social History Tobacco Use Smoking status: Former Packs/day: 1.00 Years: 35.00 Pack years: 35.00 Types: Cigarettes Quit date: 08/03/1997 Years since quittin.8 Passive exposure: Past Smokeless tobacco: Never Tobacco comments: occasional cigar Substance Use Topics Alcohol use: Not Currently Vaping/E-Cigarette Use Vaping/E-Cigarette Use Never User Vaping/E-Cigarette Substances Vaping/E-Cigarette Devices Family History Problem Relation Age of Onset Arthritis Mother RHEUMATOID Gastro-intestinal disorder Mother PUD Gastro-intestinal disorder Father PUD Diabetes Uncle (Unspecified) Arthritis Sister osteo Arthritis Sister osteo Past Surgical History: Procedure Laterality Date COLONOSCOPY W/ LESION REMOVAL, SNARE 05/10/07 adenomatous repeat in 5 years COLONOSCOPY, DIAGNOSTIC (RECTUM) 05/10/2013 COLONOSCOPY FLEXIBLE PROXIMAL DIAGNOSTIC performed by Teddy Rizvi MD at ENDOSCOPY [facility] COLONOSCOPY, DIAGNOSTIC (RECTUM) 01/21/2019 diverticulosis, repeat 5 yrs/COLONOSCOPY FLEXIBLE PROXIMAL DIAGNOSTIC performed by Teddy Rizvi MD at ENDOSCOPY [facility] REMOVE TONSILS & ADENOIDS, AGE 12+ 1979 Tonsillectomy/Adenoids,12+ Y/O Past Medical History: Diagnosis Date Arthritis, rheumatoid ([facility]) Benign neoplasm of colon 05/10/07 adenomatous repeat colonoscopy in 5 years Degeneration of lumbosacral intervertebral disc Elevated blood pressure, situational Fuchs' corneal dystrophy 10/19/2018 Impaired fasting glucose Macular degeneration Morbid (severe) obesity due to excess calories ([facility]) 08/19/2017 Patient Active Problem List Diagnosis Code Macular degeneration H35.30 DISC DIS [id number] M51.9 Impaired fasting glucose R73.01 ADVANCE DIRECTIVE INFORMATION Encounter for long-term (current) use of medications Z79.899 BMI 35-39 ISOLATED (SEE ACTUAL BMI) E66.9 Rheumatoid arthritis involving multiple sites with positive rheumatoid factor ([facility]) M05.79 HTN, goal below 130/80 I10 History of colon polyps Z86.010 Fuchs' corneal dystrophy H18.519 Morbid obesity with BMI of 40.0-44.9, adult ([facility]) E66.01, Z68.41 Dyslipidemia, goal LDL below 160 E78.5 Osteoporosis with symptom management only M81.0 Diabetes mellitus without complication ([facility]) E11.9 Prostate cancer ([facility]) C61 Chronic kidney disease, stage 3a ([facility]) N18.31 Constitutional: (-) fever ENT: (-) stridor Abdominal/GI: (+) constipation or change in bowel pattern Male : see HPI Musculoskeletal: (+) joint pain Neurology: (+) loss of balance Psychiatry: (-) negative: no depression or anxiety Physical Exam Nursing note reviewed. Constitutional: General: He is not in acute distress. Appearance: Normal appearance. He is obese. He is not ill-appearing or toxic-appearing. Comments: Using cane HENT: Head: Normocephalic and atraumatic. Right Ear: External ear normal. Left Ear: External ear normal. Nose: Nose normal. Mouth/Throat: Mouth: Mucous membranes are moist. Eyes: Extraocular Movements: Extraocular movements intact. Cardiovascular: Pulses: Normal pulses. Pulmonary: Effort: Pulmonary effort is normal. Abdominal: Palpations: Abdomen is soft. Tenderness: There is no abdominal tenderness. Musculoskeletal: Cervical back: Normal range of motion and neck supple. Lymphadenopathy: Cervical: No cervical adenopathy. Skin: Coloration: Skin is not cyanotic or pale. Neurological: Mental Status: He is alert and oriented to person, place, and time. Motor: Weakness present. Gait: Gait abnormal. Psychiatric: Attention and Perception: Attention normal. Mood and Affect: Mood and affect normal. Impression/Plan: 78 year old male with aggressive prostate cancer. Findings reviewed with patient. Will continue multimodal therapy for his aggressive malignancy. Upcoming nursing visit in August for continued Lupron is appreciated. Patient is encouraged to continue CIC, complete external beam radiation as planned. He is tolerating therapies well. I will see the patient in 4 months time to check on his progress. Will defer imaging/lab work in PSA follow-up to medical and radiation oncology services. Patient can certainly contact us sooner with any other urologic issues. Above content is personally reviewed. Patient vocalizes good understanding of the treatment plan. Vinay Sexton MD 4:00 PM 05/19/2023 documented in this encounter Nursing Notes * Elena Figueroa LPN - 05/19/2023 3:45 PM EDT 2 month ret, discuss med/onc and rad/onc visits. Patient presents alone. CIC x 4 daily, more if needed. Cassandra through radiation treatment currently. Taking tamsulosin documented in this encounter Plan of Treatment Upcoming Encounters Date Type Specialty Care Team Description 05/25/2023 Laboratory [facility] [place] [address] [place] [address] 05/26/2023 [place] [facility] [place]c [address], [place] [id number] 06/08/2023 Laboratory [facility] [place], [facility] [address] [place] [address] 06/09/2023 Office Visit Hematology Oncology Patrice Puente MD [address] [facility] [place] [address] 06/22/2023 Laboratory Laboratory [facility] [address] [place] [address] 06/22/2023 Office Visit Family Medicine Kat Huitron, DO [address] [place] [address] 08/14/2023 Nurse Only Urology [place], Nurse Urology [place] [address] [place] [address] 09/10/2023 Office Visit Rheumatology Mendel Wilson MD [address] [place] [address] 09/11/2023 Office Visit Urology Vinay Sexton MD [address] [place] [address] [place] [address] Scheduled Procedures Name Priority Associated Diagnoses Date/Ti me COLONOSCOPY FLEXIBLE PROXIMAL DIAGNOSTIC Recall Hx of colonic polyps Health Maintenance Due Date Last Done Comments CKD PHOS USE SMARTSET 45833 02/23/1963 DXA Scan 01/10/2021 01/10/2019, 12/2005, 07/07/2006 Depression Screening 03/13/2021 03/13/2020 COVID-19 Vaccine ( season) 2023 05/23/2022, 12/25/2021, 06/14/2021, Additional history exists Influenza Vaccine (FLU shot) (#1) 2023 05/08/2022, 05/07/2021, 04/17/2020, Additional history exists Albumin/Creatinine Ratio 04/10/2023 04/10/2022, 10/2006 *BISPHONATE OR OTHER ACCEPTABLE MEDICATION NEEDED FOR OSTEOPOROSIS (REFER TO SMARTSET #1146) 04/29/2023 HbA1c 06/26/2023 12/24/2022, 11/01, 04/10/2022, Additional history exists GFR 11/10/2023 05/11/2023, 04/03, 04/10/2023, Additional history exists Diabetic Foot Exam 12/25/2023 12/24/2022 COLONOSCOPY-EVERY 5 YRS AGES 18-100 01/22/2024 01/21/2019, 01/21/2019, 05/10/2013, Additional history exists DIABETES-EYE EXAM 01/31/2024 01/30/2023, , 01/25/2021, Additional history exists CKD HGB USE SMARTSET 85879 05/11/202405/11, 05/11/2023, 04/21/2023, Additional history exists DTaP,Tdap,and Td Vaccines (3 - Td or Tdap) 12/04/2026 12/04/2016, 12/03/2006, 12/15/1996, Additional history exists Pneumococcal Vaccine: 65+ Years Completed 10/02/2014, 09/01/2011, 07/07/2006 Zoster Vaccines Completed 01/05/2020, 08/05, 10/02/2014 VITAMIN D LEVEL ONCE IN A LIFETIME-USE SMARTSET# [id number] Completed 05/27/2021, 09/07/2019, 01/10/2019, Additional history exists GARDASIL-HPV IMMUNIZATION SERIES Aged Out No longer eligible based on patient's age to complete this topic Hepatitis B Aged Out No longer eligi ble based on patient's age to complete this topic MENINGOCOCCAL (MENACTRA/MENVEO) Aged Out No longer eligible based on patient's age to complete this topic documented as of this encounter Medical Devices Not on filedocumented as of this encounter Visit Diagnoses Diagnosis Prostate cancer (HCC)- Primary Malignant neoplasm of prostate Elevated prostate specific antigen (PSA) History of UTI Personal history of urinary (tract) infection BPH with obstruction/lower urinary tract symptoms Hypertrophy of prostate with urinary obstruction and other lower urinary tract symptoms (LUTS) Obstructive uropathy Urinary obstruction, unspecified documented in this encounter Care Teams Row Boss Relationship Specialty Start Date End Date Kat Huitron, DO [address] [place], [place] [phone] PCP - General Family Medicine 07/11/19 documented as of this encounter
--- OUTSIDE RECORDS SUMMARY | 2023-09-01 04:46 | External Medical Summary | Summary of Care ---
Author Name Unknown Organization [facility] Address [address] [place] [address] Phone [phone] Care Team Providers Care Mechanical Engineering Intern Name Role Phone Rhianna Huitron DO Primary Care Provider Encounter Details Date Type Department Care Team (Late st Contact Info) Description 06/01/2023 Specialty Pharmacy [facility], [address] [address] Medication, [facility], [address] [address] Allergies Active Allergy Reactions Criticality Noted Date Comments Brent Inhibitors Cough Low 11/26/2017 Alendronate Sodium Muscle pain 04/11/2019 Heartburn, constipation, joint pain Misoprostol Diarrhea 08/08/2003 Niacin Er 11/26/2010 Gas, hot flashes Pollen 01/01/2018 Watery eyes, sneezing Pravastatin 02/26/2007 Upset stomach, all .Statins Simvastatin 02/26/2007 Upset stomach documented as of this encounter (statuses as of 06/01/2023) Medications Medication Sig Dispensed Refills Start Date [...] as of this encounter (statuses as of 06/01/2023) Active Problems Problem Noted Date Diagnosed Date [...] glucose 12/16/2005 Macular degeneration 12/02/1999 DISC DIS [id number] documented as of this encounter (statuses as of 06/01/2023) Resolved Problems Problem Noted Date Diagnosed Date Resolved Date Prediabetes 11/08/2018 04/17/2022 Overview: Per Prediabetes protocol #1 Morbid (severe) obesity due to excess calories 08/19/2017 03/09/2019 Infective otitis externa 09/08/2012 Cough 07/03/2012 08/18/2012 Benign neoplasm of colon 05/10/2007 Overview: adenomatous repeat colonoscopy in 5 years ARTHRITIS,RHEUMATOID 07/07/2006 016 [id number] 07/07/200611/01 Overview: Renamed Per Clinical Trials Billing Project. Pt is a participant in the [employer] (Consortium of Rheumatology [place]) national data collection study. For further information please call Dr Hari Clark or Julia White, RN, CCRC at [phone] [facility] RESEARCH OTHER*[id number] 07/07/2006 01/28/2010 Overview: Renamed Per Clinical Trials Billing Project. Pt is a participant in the [employer] (Consortium of Rheumatology Researchers [place] national data collection study. For further information please call Dr Hari Clark or Julia White, RN, CCRC at [phone] Hearing loss 12/02/1999 03/29/2013 documented as of this encounter (statuses as of 06/01/2023) Immunizations Name Administration Dates Next Due COVID-19 mRNA, LNP-s, No Pre serve, 2-Dose Series ([facility]) 06/14/2021,10/10/2020,09/12/2020 COVID-19, LNP-s, No Preserve , Yousuf-sucrose, [...] as of this encounter Progress Notes * Janel Lopez big data platform architect - 06/01/2023 1:16 PM EDT Pt called to add a credit card to file. Janel Lopez Yard Assistant [facility] Special[facility] 06/01/2023 1:16 PM documented in this encounter Plan of Treatment Upcoming Encounters Date Type Department Care Team (Late st Contact Info) Description 06/08/2023 11:20 AM EST Laboratory Laboratory, [place] [address] [place] [facility] [place] [id number] [facility] [address] [place] [address] 06/09/2023 9:15 AM EST Office Visit Hematology/Oncology [facility] [place] [address] [place] [address] Patrice Puente MD [address] [place] [address] 06/22/2023 10:30 AM EST Laboratory Laboratory, [place] [address] [place] [address] [facility] [address] [place] [address] 06/22/2023 11:10 AM EST Office Visit [facility] [address] [place] [phone] Rhianna Huitron, [address] [place] [address] 06/23/2023 9:30 AM EST Pharmacy Pharmacy Hematology Oncology [facility] [address] [place] [address] [place] Hem/Onc [address] [place] [address] 08/14/2023 11:00 AM EST Nurse Only Urology, [facility] [address] [facility] [address] [facility], Nurse Urology [facility] [address] [facility] [place] [place] [address] 09/10/2023 9:40 AM EST Office Visit Rheumatology [address] [address] Mendel [facility] [address] [facility] [address] 09/11/2023 9:15 AM EST Office Visit Urology, [facility] [address] [place] [address] Vinay Sexton MD [address] [facility] [address] [place] [address] Scheduled Procedures Name Priority Associated Diagnoses Date/Ti me COLONOSCOPY FLEXIBLE PROXIMAL DIAGNOSTIC Recall Hx of colonic polyps Health Maintenance Due Date Last Done Comments CKD PHOS USE SMARTSET 06560 02/23/1963 Hepatitis B (1 of 3 - [...] Additional history exists CKD HGB USE SMARTSET 25179 05/25/202405/25, 05/25/2023, 05/11/2023, Additional history exists DTaP,Tdap,and Td Vaccines (3 - Td or Tdap) 12/04/2026 12/04/2016, 12/03/2006, 12/15/1996, Additional history exists Pneumococcal Vaccine: 65+ Years Completed 10/02/2014, 09/01/2011, 07/07/2006 Zoster Vaccines Completed 01/05/2020, 08/05, 10/02/2014 VITAMIN D LEVEL ONCE IN A LIFETIME-USE SMARTSET# [id number] Completed 05/27/2021, 09/07/2019, 01/10/2019, Additional history exists GARDASIL-HPV IMMUNIZATION SERIES Aged Out No longer eligible based on patient's age to complete this topic MENINGOCOCCAL (MENACTRA/MENVEO) Aged Out No longer eligible based on patient's age to complete this topic documented as of this encounter Medical Devices Not on filedocumented as of this encounter Care Teams Mechanical Engineering Intern Relationship Specialty Start Date End Date Rhianna Huitron DO [address] [place] [address] PCP - General Family Medicine 07/11/19 documented as of this encounter
--- OUTSIDE RECORDS SUMMARY | 2023-09-01 04:46 | External Medical Summary | Summary of Care ---
Author Name Unknown Organization [facility] Address [address] [place] [address] Phone [phone] Care Team Providers Care Therapist Physical Name Role Phone Rhianna Huitron DO Primary Care Provider [phone] Reason for Visit * Reason Comments Medication Management Encounter Details Date Type Department Care Team Description 05/19/2023 Pharmacy Pharmacy Hematology Oncology [facility] [address] [place], [place] [id number] [facility] [place] [facility] Hem[facility]Onc [address] [place], [place] [phone] Prostate cancer (HCC)* Allergies Active Allergy Reactions Severity Noted Date [...] glucose 12/16/2005 Macular degeneration 12/02/1999 DISC DIS [id number] documented as of this encounter (statuses as of 05/19/2023) Resolved Problems Problem Noted Date Resolved Date Prediabetes 11/08/2018 04/17/2022 Overview: Per Prediabetes protocol #1 Morbid (severe) obesity due to excess calories 0 08/19/2017 03/09/2019 Infective otitis externa 09/08/2012 013 Cough 07/03/2012 08/18/2012 Benign neoplasm of colon 05/10/2007 019 Overview: adenomatous repeat colonoscopy in 5 years ARTHRITIS,RHEUMATOID 07/07/2006 05/12/2016 [id number] 07/07/2006 11/17/19 10 Overview: Renamed Per Clinical Trials Billing Project. Pt is a participant in the [employer] (Consortium of Rheumatology Researchers [place]) national data collection study. For further information please call Dr Hari Clark or Julia White, RN, CCRC at [phone] [facility] RESEARCH OTHER*[id number] 07/07/2006 01/28/2010 Overview: Renamed Per Clinical Trials Billing Project. Pt is a participant in the [employer] (Consortium of Rheumatology [place] national data collection study. For further information please call Dr Hari Clark or Julia White, RN, CCRC at [phone] Hearing loss 12/02/1999 03/29/2013 documented as of this encounter (statuses as of 05/19/2023) Immunizations Name Administration Dates Next Due COVID-19 mRNA, LNP-s, No Pre serve, 2-Dose Series (Stream5) 06/14/2021,10/10/2020,09/12/2020 COVID-19, LNP-s, No Preserve , Yousuf-sucrose, [...] encounter Progress Notes * Enedina Ordoñez, [facility] - 05/19/2023 11:32 AM EDT MEDICATION THERAPY MANAGEMENT ABIRATERONE TREATMENT PROGRESS NOTE Markus Wharton (Ron) [phone] Patient Phone Numbers Preferred Lab: [facility] Communication: Spoke to: Patient Treatment: Medication: Abiraterone (Zytiga) Indication/Staging/Diagnosis Code: prostate cancer/ C61 Dose: 1000mg daily Administration: empty stomach (1 hour before or 2 hours after a meal) Start Date: 04/27/23 Primary Milking Machine Mechanic/Oncologist: Dr. Leon Puente Additional Therapy: Prednisone 5mg daily Lupron Supportive Care Meds: None Prophylactic Meds: Losartain 12.5mg daily HCTZ 12.5mg daily Treatment History: 04/08/23-present: Lupron Interval History: Pt has chronic RA resolved with MTX and APAP as needed. Reports stable BP < 150/90 Reports mild constipation resolved with bisacodyl oral tabs PRN. Denies exceeding 3 days without BM Reports ongoing hot flashes resolved with fan at night States skin issues are secondary to RT and resolves with Eucerin No other concerns, tolerating therapy well Changes to medication list since last visit? No Assessment and Plan: Continue BP monitoring and contact PCP if BP > 150/90 Continue bisacodyl as needed for constipation Reviewed avoiding suppositories to prevent potential tears and infection Advised to contact office if no BM in 3 days Continue cooling methods for hot flash management Continue Eucerin cream for RT-related rash. Pt understands to contact office if rash worsens or appears infected Continue current therapy and q2wk labs Assessment of compliance: compliant Assessment of adverse effects attributed to drug therapy: Edema/fluid retention - absent HTN - absent Joint swelling or discomfort - absent Arthralgias/Myalgias - absent Diarrhea/Constipation - present Dose adjustment needed based on lab or adverse drug reaction? No Follow up: 1 week Enedina Ordoñez, PharmD, BCOP Clinical Pharmacist, [facility] Oral Chemotherapy [facility] 05/19/2023, 11:38 AM Monitoring Parameters: Estimated CrCl Serum creatinine: 1.5 mg/dL (H) 05/11/23 1114 Estimated creatinine clearance: 62 mL/min (A) Hepatitis panel Latest Reference Range [...] monthly Treatment Parameters Per PI Pertinent labs: N/A Time Spent on Encounter: 6 - 10 minutes Encounter Group: Oncology Encounter Interventions Item Category: Oral Chemotherapy Abiraterone Problem/Rationale: Safety: Needs additional monitoring - Medication Requires monitoring Pharmacist Intervention(s): Non-pharmacological intervention provided and Toxicity monitoring Magnitude of Intervention: Monitoring with direction (Level 1) Second Item Second Item Category: Laxatives Biscadoyl Problem/Rationale: Effectiveness: Needs additional monitoring - Medication Requires monitoring Pharmacist Intervention(s): Toxicity monitoring Magnitude of Intervention: Monitoring with direction (Level 1) Electronically signed by Enedina Ordoñez [facility] at 05/19/2023 11:39 AM EDT documented in this encounter Plan of Treatment Upcoming Encounters Date Type Specialty Care Team Description 05/19/2023 Office Visit Urology Vinay Sexton MD [address] [address] [place] [address] 05/25/2023 Laboratory Laboratory [address] [place] [address] 05/26/2023 Pharmacy Pharmacy [facility] Hem[facility]Onc [address] [place] [address] 06/08/2023 Laboratory Laboratory [place], Laboratory [address] [place] [address] 06/09/2023 Office Visit Hematology Oncology Patrice Puente MD [address] [place] [address] 06/22/2023 Laboratory Laboratory [facility] Laboratory [address] [place] [address] 06/22/2023 Office Visit Family Medicine Rhianna Huitron, [address] [place] [address] 08/14/2023 Nurse Only Urology [place], Nurse Urology [place] [address] [place] [address] 09/10/2023 Office Visit Rheumatology OpMendel martinez MD [address] [place] [address] Scheduled Procedures Name Priority Associated Diagnoses Date/Ti me COLONOSCOPY FLEXIBLE PROXIMAL DIAGNOSTIC Recall Hx of colonic polyps Health Maintenance Due Date Last Done Comments CKD PHOS USE SMARTSET 08473 02/23/1963 DXA Scan 01/10/2021 01/10/2019, 12/0 12/2005, 07/07/2006 [...] Additional history exists CKD HGB USE SMARTSET 81421 05/11/202405/11, 05/11/2023, 04/21/2023, Additional history exists DTaP,Tdap,and Td Vaccines (3 - Td or Tdap) 12/04/2026 12/04/2016, 12/03/2006, 12/15/1996, Additional history exists Pneumococcal Vaccine: 65+ Years Completed 10/02/2014, 09/01/2011, 07/07/2006 Zoster Vaccines Completed 01/05/2020, 08/05, 10/02/2014 VITAMIN D LEVEL ONCE IN A LIFETIME-USE SMARTSET# [id number] Completed 05/27/2021, 09/07/2019, 01/10/2019, Additional history exists [...] prostate documented in this encounter Care Teams Therapist Physical Relationship Specialty Start Date End Date Rhianna Huitron, [address] [place] [address] PCP - General Family Medicine 07/11/19 documented as of this encounter
--- OUTSIDE RECORDS SUMMARY | 2023-09-01 04:46 | External Medical Summary ---
Author Name Unknown Address Unknown Organization K01:[facility] [place] [facility] [address] [facility] [address] [facility] [address] Laboratory Report Ordering Provider Test Date Status JOHNATHON CASILLAS 05/25/2023 11:16:59 Final Observation Date Value Abnormality Reference (Units ) Status WBC, Total 05/25/2023 11:16:59 9.00 4.00-10.80 (K/uL) Final RBC 05/25/2023 11:16:59 3.76 4.50-5.25 (M/uL) Final Hemoglobin 05/25/2023 11:16:59 10.9 Below low normal 14.0-16.8 (g/dL) Final HCT 05/25/2023 11:16:59 36.8 Below low normal 40.0-48.4 (%) Final MCV 05/25/2023 11:16:59 97.9 82.0-99.5 (fL) Final MCH 05/25/2023 11:16:59 29.0 27.0-34.0 (pg) Final MCHC 05/25/2023 11:16:59 29.6 32.0-36.0 (g/dL) Final RDW 05/25/2023 11:16:59 15.6 11.5-15.5 (%) Final Platelets 05/25/2023 11:16:59 170 140-400 (K/uL) Final MPV 05/25/2023 11:16:59 11.1 6.6-11.1 (fL) Final Nucleated erythrocytes/100 leukocytes [Ratio] in Blood by Automated count 05/25/2023 11:16:59 0 <=0 (/100 WBCs) Final Performing Location [facility] [place] [address] [facility] [address]
--- OUTSIDE RECORDS SUMMARY | 2023-09-01 04:46 | External Medical Summary | Summary of Care ---
Author Name Unknown Organization [facility] Address [address] [place] [address] Phone [phone] Care Team Providers Care Dump Grounds Checker Name Role Phone Rhianna Huitron DO Primary Care Provider [phone] Reason for Visit * Reason Comments Medication Management Encounter Details Date Type Department Care Team (Late st Contact Info) Description 05/26/2023 9:30 AM EDT Pharmacy Pharmacy Hematology Oncology [facility] [address] [place] [address] [facility] [place] Hem/Onc [address] [place], [place] [id number] Prostate cancer (HCC)* Allergies Active Allergy Reactions Criticality Noted Date Comments Brent Inhibitors Cough Low 11/26/2017 Alendronate Sodium Muscle pain 04/11/2019 Heartburn, constipation, joint pain Misoprostol Diarrhea 08/08/2003 Niacin Er 11/26/2010 Gas, hot flashes Pollen 01/01/2018 Watery eyes, sneezing Pravastatin 02/26/2007 Upset stomach, all .Statins Simvastatin 02/26/2007 Upset stomach documented as of this encounter (statuses as of 05/26/2023) Medications Medication Sig Dispensed Refills Start Date [...] as of this encounter (statuses as of 05/26/2023) Active Problems Problem Noted Date Diagnosed Date [...] glucose 12/16/2005 Macular degeneration 12/02/1999 DISC DIS [id number] documented as of this encounter (statuses as of 05/26/2023) Resolved Problems Problem Noted Date Diagnosed Date Resolved Date Prediabetes 11/08/2018 04/17/2022 Overview: Per Prediabetes protocol #1 Morbid (severe) obesity due to excess calories 08/19/2017 03/09/2019 Infective otitis externa 09/08/2012 Cough 07/03/2012 08/18/2012 Benign neoplasm of colon 05/10/2007 Overview: adenomatous repeat colonoscopy in 5 years ARTHRITIS,RHEUMATOID 07/07/2006 016 [id number] 07/07/200611/01 Overview: Renamed Per Clinical Trials Billing Project. Pt is a participant in the [employer] (Consortium of Rheumatology [place] national data collection study. For further information please call Dr Hari Clark or Julia White, RN, CCRC at [phone] [facility] RESEARCH OTHER*[id number] 07/07/2006 01/28/2010 Overview: Renamed Per Clinical Trials Billing Project. Pt is a participant in the [employer] (Consortium of Rheumatology [place] national data collection study. For further information please call Dr Hari Clark or Julia White, RN, CCRC at [phone] Hearing loss 12/02/1999 03/29/2013 documented as of this encounter (statuses as of 05/26/2023) Immunizations Name Administration Dates Next Due COVID-19 [...] this encounter Progress Notes * Enedina Ordoñez, [facility] - 05/26/2023 2:12 PM EDT MEDICATION THERAPY MANAGEMENT ABIRATERONE TREATMENT PROGRESS NOTE Markus Wharton (Ron) [id number] Patient Phone Numbers [employer] [phone] Preferred Lab: [facility] [place] Communication: Spoke to: Patient Treatment: Medication: Abiraterone (Zytiga) Indication/Staging/Diagnosis Code: prostate cancer/ C61 Dose: 1000mg daily Administration: empty stomach (1 hour before or 2 hours after a meal) Start Date: 04/27/23 Primary Dehydrogenation Converter Operator/Oncologist: Dr. Leon Puente Additional Therapy: Prednisone 5mg daily Lupron Supportive Care Meds: None Prophylactic Meds: Losartain 12.5mg daily HCTZ 12.5mg daily Treatment History: 04/08/23-present: Lupron Interval History: Pt has chronic RA resolved with MTX and APAP as needed. Reports taking additional APAP for shoulder pain within the last week Reports mild edema in feet Reports stable BP < 150/90 Reports one episode of diarrhea secondary to diet States symptoms resolved with loperamide 2mg Inquiring if he can take Metamucil for bowel regularity Denies exceeding 3 days without BM or having 4 or more BM per day than normal Continues to endorse fatigue that does not affect QoL or ADLs No other concerns, tolerating therapy well Changes to medication list since last visit? Yes, Metamucil - no DDI Assessment and Plan: Hgb low but improving Na+ remains low Advised to increase dietary Na+ Will monitor closely All other labs stable Reviewed APAP dosing (MDD 3000mg) and to contact PCP if pain increases in frequency or severity Advised pt to elevate feet when sitting and contact office if edema worsens Continue BP monitoring and contact PCP if BP > 150/90 Reviewed loperamide dosing (MDD 16mg) and to contact office if 4 or more BM per day than normal or suspect dehydration Counseled pt Metamucil is reasonable bowel regimen for regularity. Advised pt to take Metamucil with water and maintain activity for best effects. Pt replied with understanding Reviewed resting when needed, working when able, and to contact office if fatigue affecting QoL or ADLs Continue current therapy and q2wk labs (next due with OV) Assessment of compliance: compliant Assessment of adverse effects attributed to drug therapy: Edema/fluid retention - present HTN - absent Joint swelling or discomfort - absent Arthralgias/Myalgias - present, chronic Diarrhea/Constipation - present Dose adjustment needed based on lab or adverse drug reaction? No Follow up: 2 weeks OV/labs; 4 weeks MTM Enedina Ordoñez, PharmD, BCOP Clinical Pharmacist, [facility] Oral Chemotherapy [facility] 05/26/2023, 2:46 PM Monitoring Parameters: Estimated CrCl Serum creatinine: 1.5 mg/dL (H) 05/25/23 1116 Estimated creatinine clearance: 62 mL/min (A) Hepatitis [...] Pertinent labs: Latest Reference Range & Units 04/21/23 10:03 05/11/23 11:14 05/25/23 11:16 WBC 4.00 - 10.80 K/uL 9.69 9.52 9.00 HGB 14.0 - 16.8 g/dL 9.5 (L) 10.5 (L) 10.9 (L) HCT 40.0 - 48.4 % 31.1 (L) 33.3 (L) 36.8 (L) MCV 82.0 - 99.5 fL 98.1 94.9 97.9 PLT 140 - 400 K/uL 318 274 170 Absolute Neutrophils 1.80 - 7.70 K/uL 7.37 8.25 (H) 7.86 (H) Latest Reference Range & Units 04/21/23 10:05/11/23 11:14 05/25/23 11:16 Sodium 135 - 146 mmol/L 137 134 (L) 133 (L) Latest Reference Range & Units 04/21/23 10:05/11/23 11:14 05/25/23 11:16 BUN 6 - 20 mg/dL 22 (H) 21 (H) 22 (H) Creatinine 0.6 - 1.2 mg/dL 1.8 (H) 1.5 (H) 1.5 (H) Estimated Glomerular Filtration Rate >=60 mL/min 39 (L) 47 (L) 50 (L) Latest Reference Range & Units 04/21/23 10:03 05/11/23 11:14 05/25/23 11:16 Glucose 70 - 120 mg/dL 120 139 (H) 112 Latest Reference Range & Units 04/21/23 10:03 05/11/23 11:14 05/25/23 11:16 Albumin 3.8 - 5.0 g/dL 4.1 3.9 3.9 AST 10 - 50 U/L 19 22 27 ALT 10 - 50 U/L 16 29 30 Alkaline Phosphatase 35 - 130 U/L 92 88 79 Bilirubin, Total <=1.2 mg/dL 0.4 0.3 0.4 Time Spent on Encounter: 16 - 20 minutes Encounter Group: Oncology Encounter Interventions Item Category: Oral Chemotherapy Abiraterone Problem/Rationale: Safety: Needs additional monitoring - Medication Requires monitoring Pharmacist Intervention(s): Lab monitoring, Non-pharmacological intervention provided, and Toxicitymonitoring Magnitude of Intervention: Monitoring with direction (Level 1) Second Item Second Item Category: Analgesics Acetaminophen Problem/Rationale: Effectiveness: Needs additional monitoring - Medication Requires monitoring Pharmacist Intervention(s): Toxicity monitoring Magnitude of Intervention: Monitoring with direction (Level 1) Third Item Third Item Category: Anti-Diarrheal Loperamide Problem/Rationale: Effectiveness: Needs additional monitoring - Medication Requires monitoring Pharmacist Intervention(s): Toxicity monitoring Magnitude of Intervention: Monitoring with direction (Level 1) Fourth Item Fourth Item Category: Laxatives Other: Psyllium Problem/Rationale: Indication: Needs additional medication therapy - Preventive therapy Education: Initial education Pharmacist Intervention(s): Drug Interaction Screen, Education provided, Medication initiated (OTC), and Toxicity monitoring Magnitude of Intervention: Modification of medication for asymtomatic patients (Level 2) documented in this encounter Plan of Treatment Upcoming Encounters Date Type Department Care Team (Late st Contact Info) Description 06/08/2023 11:20 AM EST Laboratory Laboratory, [facility] [address] [place] [facility] [address] [facility], Laboratory [address] [place] [facility] [address] 06/09/2023 9:15 AM EST Office Visit Hematology/Oncology [facility] [address] [facility] [place] [address] Patrice Puente MD [address] [place] [address] 06/22/2023 10:30 AM EST Laboratory Laboratory, [facility] [address] [place] [facility] [place] [address] [facility], Laboratory [address] [facility], [place] [address] 06/22/2023 11:10 AM EST Office Visit [facility] [address] [facility] [address] Rhianna Huitron DO [address] [facility], [place] [id number] 08/14/2023 11:00 AM EST Nurse Only Urology, [facility] [address] [place] [address] Nurse Garrett [facility] [place] [address] [place] [address] 09/10/2023 9:40 AM EST Office Visit Rheumatology [place] [address] [facility] [place] [address] Mendel Wilson MD [facility] [place] [address] 09/11/2023 9:15 AM EST Office Visit Urology, [facility] [address] [facility] [place] [address] Vinay Sexton MD [address] [place] [address] Scheduled Procedures Name Priority Associated Diagnoses Date/Ti me COLONOSCOPY FLEXIBLE PROXIMAL DIAGNOSTIC Recall Hx of colonic polyps Health Maintenance Due Date Last Done Comments CKD PHOS USE SMARTSET 81625 02/23/1963 Hepatitis B (1 of 3 - [...] 04/10/2022, Additional history exists GFR 11/24/2023 05/25/2023, 1004/2023, 04/21/2023, Additional history exists Diabetic Foot Exam 12/25/2023 12/24/2022 COLONOSCOPY-EVERY 5 YRS AGES 18-100 01/22/2024 01/21/2019, 01/21/2019, 05/10/2013, Additional history exists DIABETES-EYE EXAM 01/31/2024 01/30/2023, , 01/25/2021, Additional history exists CKD HGB USE SMARTSET 84984 05/25/202405/25, 05/25/2023, 05/11/2023, Additional history exists DTaP,Tdap,and Td Vaccines (3 - Td or Tdap) 12/04/2026 12/04/2016, 12/03/2006, 12/15/1996, Additional history exists Pneumococcal Vaccine: 65+ Years Completed 10/02/2014, 09/01/2011, 07/07/2006 Zoster Vaccines Completed 01/05/2020, 08/05, 10/02/2014 VITAMIN D LEVEL ONCE IN A LIFETIME-USE SMARTSET# [id number] Completed 05/27/2021, 09/07/2019, 01/10/2019, Additional history exists [...] prostate documented in this encounter Care Teams Dump Grounds Checker Relationship Specialty Start Date End Date Rhianna Huitron DO [address] [facility] [place] [place] [address] PCP - General Family Medicine 07/11/19 documented as of this encounter
--- OUTSIDE RECORDS SUMMARY | 2023-09-01 04:46 | External Medical Summary | Summary of Care ---
Author Name Unknown Organization [facility] Address [address] [place] [address] Phone [phone] Care Team Providers Care Behavioral Health Clinician Name Role Phone Rhianna Huitron DO Primary Care Provider [phone] Reason for Visit * Reason Comments Outpatient Testing Encounter Details Date Type Department Care Team (Late st Contact Info) Description 05/25/2023 11:20 AM EDT Laboratory [facility], [place] [address] [place] [address] [place] [address] [place] [address] Prostate cancer (HCC); Anemia, unspecified type Allergies Active Allergy Reactions Criticality Noted Date Comments Brent Inhibitors Cough Low 11/26/2017 Alendronate Sodium Muscle pain 04/11/2019 Heartburn, constipation, joint pain Misoprostol Diarrhea 08/08/2003 Niacin Er 11/26/2010 Gas, hot flashes Pollen 01/01/2018 Watery eyes, sneezing Pravastatin 02/26/2007 Upset stomach, all .Statins Simvastatin 02/26/2007 Upset stomach documented as of this encounter (statuses as of 05/25/2023) Medications Medication Sig Dispensed Refills Start Date [...] as of this encounter (statuses as of 05/25/2023) Active Problems Problem Noted Date Diagnosed Date [...] glucose 12/16/2005 Macular degeneration 12/02/1999 DISC DIS [id number] documented as of this encounter (statuses as of 05/25/2023) Resolved Problems Problem Noted Date Diagnosed Date Resolved Date Prediabetes 11/08/2018 04/17/2022 Overview: Per Prediabetes protocol #1 Morbid (severe) obesity due to excess calories 08/19/2017 03/09/2019 Infective otitis externa 09/08/2012 Cough 07/03/2012 08/18/2012 Benign neoplasm of colon 05/10/2007 Overview: adenomatous repeat colonoscopy in 5 years ARTHRITIS,RHEUMATOID 07/07/2006 016 [id number] 07/07/200611/01 Overview: Renamed Per Clinical Trials Billing Project. Pt is a participant in the [employer] (Consortium of [employer] [place]) national data collection study. For further information please call Dr Hari Clark or Julia White, RN, CCRC at [phone] [facility] RESEARCH OTHER*[id number] 07/07/2006 01/28/2010 Overview: Renamed Per Clinical Trials Billing Project. Pt is a participant in the [employer] (Consortium of [employer] [place]) national data collection study. For further information please call Dr Hari Clark or Julia White, RN, CCRC at [phone] Hearing loss 12/02/1999 03/29/2013 documented as of this encounter (statuses as of 05/25/2023) Immunizations Name Administration Dates Next Due COVID-19 [...] AM EDT Pharmacy Pharmacy Hematology Oncology [facility] [address] [place] [address] [facility] Hem/Onc [address] [place] [address] 06/08/2023 11:20 AM EST Laboratory Laboratory, [address] [phone] [facility] [address] [place] [address] 06/09/2023 9:15 AM EST Office Visit Hematology/Oncology Jayashree Hobbs [place] [address] [place] [address] Patrice Puente MD [address] [place] [address] 06/22/2023 10:30 AM EST [facility] [place] [address] [facility] [id number] [facility] [address] [place] [address] 06/22/2023 11:10 AM EST Office Visit [facility] [address] [place] [address] Rhianna Huitron DO [address] [place] [address] 08/14/2023 11:00 AM EST Nurse Only Urology, [facility] [address] [facility] [place] [address] [facility], Nurse Urology [facility] [address] [facility] [place] [address] 09/10/2023 9:40 AM EST Office Visit Rheumatology [address] [place] [address] Mendel Wilson MD [address] [place] [address] [place] [address] 09/11/2023 9:15 AM EST Office Visit Urology, [facility] [address] [facility] [place] [address] Vinay Sexton MD 27 [facility] [address] [place] [address] Pending Results Name Type Priority Associated Diagnoses Date /Time COMPREHENSIVE METABOLIC PANEL Lab STAT Prostate cancer (HCC) 05/25/2023 11:16 AM EDT CBC WITH WBC DIFFERENTIAL Lab STAT Prostate cancer (HCC) Anemia, unspecified type 05/25/2023 11:16 AM EDT CBC Lab STAT Prostate cancer (HCC) Anemia, unspecified type 05/25/2023 11:16 AM EDT DIFFERENTIAL, AUTOMATED Lab STAT Prostate cancer (HCC) Anemia, unspecified type 05/25/2023 11:16 AM EDT Scheduled Procedures Name Priority Associated Diagnoses Date/Ti me COLONOSCOPY FLEXIBLE PROXIMAL DIAGNOSTIC Recall Hx of colonic polyps Health Maintenance Due Date Last Done Comments CKD PHOS USE SMARTSET 41032 02/23/1963 Hepatitis B (1 of 3 - [...] Additional history exists CKD HGB USE SMARTSET 56945 05/11/202405/11, 05/11/2023, 04/21/2023, Additional history exists DTaP,Tdap,and Td Vaccines (3 - Td or Tdap) 12/04/2026 12/04/2016, 12/03/2006, 12/15/1996, Additional history exists Pneumococcal Vaccine: 65+ Years Completed 10/02/2014, 09/01/2011, 07/07/2006 Zoster Vaccines Completed 01/05/2020, 08/05, 10/02/2014 VITAMIN D LEVEL ONCE IN A LIFETIME-USE SMARTSET# [id number] Completed 05/27/2021, 09/07/2019, 01/10/2019, Additional history exists [...] type documented in this encounter Care Teams Behavioral Health Clinician Relationship Specialty Start Date End Date Rhianna Huitron DO [address] [place] [address] PCP - General Family Medicine 07/11/19 documented as of this encounter
--- OUTSIDE RECORDS SUMMARY | 2023-09-01 04:46 | External Medical Summary ---
Author Name Unknown Address Unknown Organization K01:LABORATORY [facility] [place] [address] [facility] [address] Laboratory Report Ordering Provider Test Date Status JOHNATHON CASILLAS 05/25/2023 11:16:59 Final Every two weeks for three mo nths, then every month (patients with moderate hep impairment every week for one month, every two weeks for two months, then every month) Observation Date Value Abnormality Reference (Units ) Status BUN 05/25/2023 11:16:59 22 Above high normal 6-20 (mg/dL) Final Creatinine 05/25/2023 11:16:59 1.5 Above high normal 0.6-1.2 (mg/dL) Final Glomerular filtration rate/1.73 sq M.predicted [Volume Rate/Area] in Serum, Plasma or Blood by Creatinine-based formula (CKD-EPI) 05/25/2023 11:16:59 50 Below low normal >=60 (mL/min) Final eGFR is calculated based on the CKD-EPI 2020 equation SODIUM 05/25/2023 11:16:59 133 Below low normal 135 -146 (mmol/L) Final Potassium 05/25/2023 11:16:59 4.3 3.5-5.1 (m mol/L) Final Cl 05/25/2023 11:16:59 96 Below low normal 98- 107 (mmol/L) Final CO2 05/25/2023 11:16:59 26 22-32 (mmo l/L) Final Anion gap 05/25/2023 11:16:59 11 7-15 (mmol /L) Final Glucose 05/25/2023 11:16:59 112 70-120 (mg /dL) Final Albumin 05/25/2023 11:16:59 3.9 3.8-5.0 (g /dL) Final AST (Aspartate aminotransferase) 05/25/2023 11:16:59 27 10-50 (U/L) Fin al Alk Phos 05/25/2023 11:16:59 79 35-130 (U/ L) Final Bilirubin, Total 05/25/2023 11:16:59 0.4 <=1 .2 (mg/dL) Final Calcium 05/25/2023 11:16:59 9.2 8.4-10.2 ( mg/dL) Final Protein 05/25/2023 11:16:59 6.7 6.0-8.3 (g /dL) Final ALT (Alanine aminotransferase) 05/25/2023 11:16:59 30 10-50 (U/L) Joe jones Performing Location LABORATORY [address] [facility] [address]
--- OUTSIDE RECORDS SUMMARY | 2023-09-01 04:46 | External Medical Summary ---
Author Name Unknown Address Unknown Organization K01:LABORATORY [facility] [place] - [address] [facility] [place] [address] Laboratory Report Ordering Provider Test Date Status JOHNATHON CASILLAS 05/25/2023 11:16:59 Final Observation Date Value Abnormality Reference (Units ) Status SYNC LEUKOCYTES IN BLOOD BY AUTOMATED COUNT 05/25/2023 11:16:59 9.00 4.00-10.80 (K/uL) Final Segs 05/25/2023 11:16:59 87.4 Above high normal 40.0-75.0 (%) Final Lymphs % 05/25/2023 11:16:59 4.6 Below low normal 18.0-42.0 (%) Final Monos 05/25/2023 11:16:59 5.1 1.0-11.0 (%) Final Eosinophils 05/25/2023 11:16:59 2.2 0.0-6.0 (%) Final Basos 05/25/2023 11:16:59 0.4 0.0-2.0 (%) Final Immature Granulocyte, Percent 05/25/2023 11:16:59 0.3 0.0-2.0 (%) Final Absolute Segs 05/25/2023 11:16:59 7.86 Above high normal 1.80-7.70 (K/uL) Final Lymphs, absolute 05/25/2023 11:16:59 0.41 Below low normal 1.00-4.80 (K/ul) Final Monos, Abs 05/25/2023 11:16:59 0.46 0.00-1.10 (K/uL) Final Eos, Abs 05/25/2023 11:16:59 0.20 0.00-0.70 (K/uL) Final Basos, Abs 05/25/2023 11:16:59 0.04 0.00-0.20 (K/uL) Final Immature Granulocytes, Number 05/25/2023 11:16:59 0.03 0.00-0.20 (K/uL) Final Performing Location LABORATORY [facility] - [facility] [place] [address]
--- OUTSIDE RECORDS SUMMARY | 2023-09-01 04:47 | External Medical Summary ---
Author Name Unknown Address Unknown Organization K01:LABORATORY [facility] [place] - [address] [place] [address] Laboratory Report Ordering Provider Test Date Status JOHNATHON CASILLAS 05/11/2023 11:14:55 Final Every two weeks for three mo nths, then every month (patients with moderate hep impairment every week for one month, every two weeks for two months, then every month) Observation Date Value Abnormality Reference (Units ) Status BUN 05/11/2023 11:14:55 21 Above high normal 6-20 (mg/dL) Final Creatinine 05/11/2023 11:14:55 1.5 Above high normal 0.6-1.2 (mg/dL) Final Glomerular filtration rate/1.73 sq M.predicted [Volume Rate/Area] in Serum, Plasma or Blood by Creatinine-based formula (CKD-EPI) 05/11/2023 11:14:55 47 Below low normal >=60 (mL/min) Final eGFR is calculated based on the CKD-EPI 2020 equation SODIUM 05/11/2023 11:14:55 134 Below low normal 135 -146 (mmol/L) Final Potassium 05/11/2023 11:14:55 3.9 3.5-5.1 (m mol/L) Final Cl 05/11/2023 11:14:55 96 Below low normal 98- 107 (mmol/L) Final CO2 05/11/2023 11:14:55 26 22-32 (mmo l/L) Final Anion gap 05/11/2023 11:14:55 12 7-15 (mmol /L) Final Glucose 05/11/2023 11:14:55 139 Above high normal 70 -120 (mg/dL) Final Albumin 05/11/2023 11:14:55 3.9 3.8-5.0 (g /dL) Final AST (Aspartate aminotransferase) 05/11/2023 11:14:55 22 10-50 (U/L) Fin al Alk Phos 05/11/2023 11:14:55 88 35-130 (U/ L) Final Bilirubin, Total 05/11/2023 11:14:55 0.3 <=1 .2 (mg/dL) Final Calcium 05/11/2023 11:14:55 9.0 8.4-10.2 ( mg/dL) Final Protein 05/11/2023 11:14:55 6.8 6.0-8.3 (g /dL) Final ALT (Alanine aminotransferase) 05/11/2023 11:14:55 29 10-50 (U/L) Joe jones Performing Location LABORATORY [facility] - [facility] [address] [facility] [address]
--- OUTSIDE RECORDS SUMMARY | 2023-09-01 04:47 | External Medical Summary | Summary of Care ---
Author Name Unknown Organization [facility] Address [address] [place] [address] Phone [phone] Care Team Providers Care Section Gang Worker Name Role Phone Rhianna Huitron DO Primary Care Provider [phone] Reason for Visit * Reason Comments Outpatient Testing Encounter Details Date Type Department Care Team Description 05/11/2023 Laboratory Laboratory, [place] [address] [place] [address] [place], [facility] [address] [place] [address] Prostate cancer (HCC); Anemia, unspecified type Allergies Active Allergy Reactions Severity Noted Date Comments Brent Inhibitors Cough Low 11/26/2017 Alendronate Sodium Muscle pain 04/11/2019 Heartburn, constipation, joint pain Misoprostol Diarrhea 08/08/2003 Niacin Er 11/26/2010 Gas, hot flashes Pollen 01/01/2018 Watery eyes, sneezing Pravastatin 02/26/2007 Upset stomach, all .Statins Simvastatin 02/26/2007 Upset stomach documented as of this encounter (statuses as of 05/11/2023) Medications Medication Sig Dispensed Refills Start Date [...] as of this encounter (statuses as of 05/11/2023) Active Problems Problem Noted Date Prostate cancer [...] glucose 12/16/2005 Macular degeneration 12/02/1999 DISC DIS [id number] documented as of this encounter (statuses as of 05/11/2023) Resolved Problems Problem Noted Date Resolved Date Prediabetes 11/08/2018 04/17/2022 Overview: Per Prediabetes protocol #1 Morbid (severe) obesity due to excess calories 0 08/19/2017 03/09/2019 Infective otitis externa 09/08/2012 013 Cough 07/03/2012 08/18/2012 Benign neoplasm of colon 05/10/2007 019 Overview: adenomatous repeat colonoscopy in 5 years ARTHRITIS,RHEUMATOID 07/07/2006 05/12/2016 [id number] 07/07/2006 11/17/19 10 Overview: Renamed Per Clinical Trials Billing Project. Pt is a participant in the [employer] (Consortium of Rheumatology [place] national data collection study. For further information please call Dr Hari Clark or Julia White, RN, CCRC at [phone] [facility] RESEARCH OTHER*[id number] 07/07/2006 01/28/2010 Overview: Renamed Per Clinical Trials Billing Project. Pt is a participant in the [employer] (Consortium of Rheumatology [place] national data collection study. For further information please call Dr Hari Clark or Julia White, RN, CCRC at [phone] Hearing loss 12/02/1999 03/29/2013 documented as of this encounter (statuses as of 05/11/2023) Immunizations Name Administration Dates Next Due COVID-19 mRNA, LNP-s, No Pre serve, 2-Dose Series (Etopus) 06/14/2021,10/10/2020,09/12/2020 COVID-19, LNP-s, No Preserve , Yousuf-sucrose, [...] Encounters Date Type Specialty Care Team Description 05/12/2023 Pharmacy Pharmacy [facility] Hem/Onc [address] [place] [address] 05/19/2023 Office Visit Urology Vinay Sexton MD [address] [facility] [address] [place] [address] 05/25/2023 Laboratory Laboratory [place], [facility] [address] [place] [address] 06/08/2023 Laboratory Laboratory [place], [facility] [address] [place] [address] 06/09/2023 Office Visit Hematology Oncology Patrice Puente MD [address] [place] [address] 06/22/2023 Laboratory Laboratory [place], Laboratory [address] [place] [address] 06/22/2023 Office Visit Family Medicine Rhianna Huitron DO [address] [place] [address] 08/14/2023 Nurse Only Urology [place], Nurse Urology [place] [address] [place] [address] 09/10/2023 Office Visit Rheumatology Mendel Wilson MD [address] [facility] [place] [address] Pending Results Name Type Priority Associated Diagnoses Date /Time COMPREHENSIVE METABOLIC PANEL Lab STAT Prostate cancer (HCC) 05/11/2023 11:14 AM EDT CBC WITH WBC DIFFERENTIAL Lab STAT Prostate cancer (HCC) Anemia, unspecified type 05/11/2023 11:14 AM EDT CBC Lab STAT Prostate cancer (HCC) Anemia, unspecified type 05/11/2023 11:14 AM EDT DIFFERENTIAL, AUTOMATED Lab STAT Prostate cancer (HCC) Anemia, unspecified type 05/11/2023 11:14 AM EDT Scheduled Procedures Name Priority Associated Diagnoses Date/Ti me COLONOSCOPY FLEXIBLE PROXIMAL DIAGNOSTIC Recall Hx of colonic polyps Health Maintenance Due Date Last Done Comments CKD PHOS USE SMARTSET 72482 02/23/1963 DXA Scan 01/10/2021 01/10/2019, 12/2005, 07/07/2006 Depression Screening 03/13/2021 03/13/2020 COVID-19 Vaccine ( season) 2023 05/23/2022, 12/25/2021, 06/14/2021, Additional history exists Influenza Vaccine (FLU shot) (#1) 2023 05/08/2022, 05/07/2021, 04/17/2020, Additional history exists Albumin/Creatinine Ratio 04/10/2023 04/10/2022, 10/2006 *BISPHONATE OR OTHER ACCEPTABLE MEDICATION NEEDED FOR OSTEOPOROSIS (REFER TO SMARTSET #1146) 04/29/2023 HbA1c 06/26/2023 12/24/2022, 11/01, 04/10/2022, Additional history exists GFR 10/20/2023 04/21/2023, 03/2023, 03/26/2023, Additional history exists Diabetic Foot Exam 12/25/2023 12/24/2022 COLONOSCOPY-EVERY 5 YRS AGES 18-100 01/22/2024 01/21/2019, 01/21/2019, 05/10/2013, Additional history exists DIABETES-EYE EXAM 01/31/2024 01/30/2023, , 01/25/2021, Additional history exists CKD HGB USE SMARTSET 03930 04/21/202404/21, 04/21/2023, 04/16/2023, Additional history exists DTaP,Tdap,and Td Vaccines (3 - Td or Tdap) 12/04/2026 12/04/2016, 12/03/2006, 12/15/1996, Additional history exists Pneumococcal Vaccine: 65+ Years Completed 10/02/2014, 09/01/2011, 07/07/2006 Zoster Vaccines Completed 01/05/2020, 08/05, 10/02/2014 VITAMIN D LEVEL ONCE IN A LIFETIME-USE SMARTSET# [id number] Completed 05/27/2021, 09/07/2019, 01/10/2019, Additional history exists [...] type documented in this encounter Care Teams Section Gang Worker Relationship Specialty Start Date End Date Rhianna Huitron, [address] [place] [address] PCP - General Family Medicine 07/11/19 documented as of this encounter
--- OUTSIDE RECORDS SUMMARY | 2023-09-01 04:47 | External Medical Summary | Summary of Care ---
Author Name Unknown Organization [facility] Address [address] [place] [facility] [place] [address] Phone [phone] Care Team Providers Care Boy'S Adviser Name Role Phone Rhianna Huitron DO Primary Care Provider Reason for Visit * Reason Onset Date Comments Advice 04/28/2023 F/u appt s/p XRT for prostate cancer Encounter Details Date Type Department Care Team Description 04/28/[address] [facility] [address] [place] [address] Rhianna Huitron DO [address] [place] [address] Advice (F/u appt s/p XRT for prostate cancer) Allergies Active Allergy Reactions Severity Noted Date Comments Brent Inhibitors Cough Low 11/26/2017 Alendronate Sodium Muscle pain 04/11/2019 Heartburn, constipation, joint pain Misoprostol Diarrhea 08/08/2003 Niacin Er 11/26/2010 Gas, hot flashes Pollen 01/01/2018 Watery eyes, sneezing Pravastatin 02/26/2007 Upset stomach, all .Statins Simvastatin 02/26/2007 Upset stomach documented as of this encounter (statuses as of 04/30/2023) Medications Medication Sig Dispensed Refills Start Date End Date Status ASPIR-81 81 MG PO TBEC 1 TABLET DAILY 0 06/19/2006 Active hydroCHLOROthiazid e 12.5 MG Oral Capsule (Hydrodiuril) TAKE 1 CAPSULE BY MOUTH EVERY DAY 90 Capsule 3 06/06/2022 Active Folic Acid 1 MG Oral TabletIndications: [...] as of this encounter (statuses as of 04/30/2023) Active Problems Problem Noted Date Prostate cancer [...] glucose 12/16/2005 Macular degeneration 12/02/1999 DISC DIS [id number] documented as of this encounter (statuses as of 04/30/2023) Resolved Problems Problem Noted Date Resolved Date Prediabetes 11/08/2018 04/17/2022 Overview: Per Prediabetes protocol #1 Morbid (severe) obesity due to excess calories 0 08/19/2017 03/09/2019 Infective otitis externa 09/08/2012 013 Cough 07/03/2012 08/18/2012 Benign neoplasm of colon 05/10/2007 019 Overview: adenomatous repeat colonoscopy in 5 years ARTHRITIS,RHEUMATOID 07/07/2006 05/12/2016 [id number] 07/07/2006 11/17/19 10 Overview: Renamed Per Clinical Trials Billing Project. Pt is a participant in the [employer] (Consortium of [employer]ology [place] national data collection study. For further information please call Dr Hari Clark or Julia White, RN, CCRC at [phone] [employer] RESEARCH OTHER*[id number] 07/07/2006 01/28/2010 Overview: Renamed Per Clinical Trials Billing Project. Pt is a participant in the [employer] ([employer]ortium of [employer]ology [place] national data collection study. For further information please call Dr Hari Clark or Julia White RN, CCRC at [phone] Hearing loss 12/02/1999 03/29/2013 documented as of this encounter (statuses as of 04/30/2023) Immunizations Name Administration Dates Next Due COVID-19 [...] IM (FLUAD) 04/17/2020 Seasonal Influenza, PF, 6 mo ns & Above, IM , (Flulaval) 05/06/2018 Seasonal Influenza, Quadriva lent Hd (Fluzone [...] encounter Miscellaneous Notes * Telephone Encounter - Rhianna Huitron DO - 04/30/2023 12:46 PM EDT Jun 22 I have hosp dc can you that slot * Telephone Encounter - TEREZA Lazcano - 04/30/2023 10:42 AM EDT Please advise as below. Thank you. * Telephone Encounter - KARLOS Swan - 04/28/2023 9:[address] Huitron - Pt had to cancel his appt in late May w/ you, as he will be undergoing XRT for prostate cancer. Ideally, he is wanting to see you sometime in mid June once he finishes radiation. The next appt I have w/ you is in late September. I wasn't sure if you were able to work him in to your schedule? Or what you recommend. Pls reach out to him at [phone] to schedule. documented in this encounter Plan of Treatment Upcoming Encounters Date Type Specialty Care Team Description 05/11/2023 Laboratory Laboratory [facility] [address] [place] [address] 05/19/2023 Office Visit Urology Vinay Sexton MD [address] [place] [address] 05/25/2023 Laboratory Laboratory [facility] Laboratory [address] [place] [address] 06/08/2023 Laboratory Laboratory [place], Laboratory [address] [place] [address] 06/09/2023 Office Visit Hematology Oncology Patrice Puente MD [address] [place] [address] 06/22/2023 Laboratory Laboratory [facility] Laboratory [address] [place] [address] 08/14/2023 Nurse Only Urology [place], Nurse Urology [place] [address] [facility] [place] [address] 09/10/2023 Office Visit Rheumatology Mendel Wilson MD [address] [place] [address] Scheduled Procedures Name Priority Associated Diagnoses Date/Ti me COLONOSCOPY FLEXIBLE PROXIMAL DIAGNOSTIC Recall Hx of colonic polyps Health Maintenance Due Date Last Done Comments CKD PHOS USE SMARTSET 35364 02/23/1963 DXA Scan 01/10/2021 01/10/2019, 12/2005, 07/07/2006 Depression Screening 03/13/2021 03/13/2020 Influenza Vaccine (FLU shot) (#1) 2023 05/08/2022, [...] Additional history exists CKD HGB USE SMARTSET 23271 04/21/202404/21, 04/21/2023, 04/16/2023, Additional history exists DTaP,Tdap,and Td Vaccines (3 - Td or Tdap) 12/04/2026 12/04/2016, 12/03/2006, 12/15/1996, Additional history exists Pneumococcal Vaccine: 65+ Years Completed 10/02/2014, 09/01/2011, 07/07/2006 Zoster Vaccines Completed 01/05/2020, 08/05, 10/02/2014 VITAMIN D LEVEL ONCE IN A LIFETIME-USE SMARTSET# [id number] Completed 05/27/2021, 09/07/2019, 01/10/2019, Additional history exists COVID-19 Vaccine Completed 05/23/2022, , 06/14/2021, Additional history exists GARDASIL-HPV IMMUNIZATION SERIES Aged [...] filedocumented as of this encounter Care Teams Boy'S Adviser Relationship Specialty Start Date End Date Rhianna Huitron, DO [address] [place] [address] PCP - General Family Medicine 07/11/19 documented as of this encounter
--- OUTSIDE RECORDS SUMMARY | 2023-09-01 04:47 | External Medical Summary | Summary of Care ---
Author Name Unknown Organization [facility] Address [address] [place] [address] Phone [phone] Care Team Providers Care Senior Ios Software Engineer Name Role Phone Kat Huitron DO Primary Care Provider [phone] Reason for Visit * Reason Comments eRx-Medication Refill Encounter Details Date Type Department Care Team Description 05/08/2023 Refill [place] [address] [place] [address] Kat Huitron DO [address] [place] [address] Allergies Active Allergy Reactions Severity Noted Date Comments Brent Inhibitors Cough Low 11/26/2017 Alendronate Sodium Muscle pain 04/11/2019 Heartburn, constipation, joint pain Misoprostol Diarrhea 08/08/2003 Niacin Er 11/26/2010 Gas, hot flashes Pollen 01/01/2018 Watery eyes, sneezing Pravastatin 02/26/2007 Upset stomach, all .Statins Simvastatin 02/26/2007 Upset stomach documented as of this encounter (statuses as of 05/10/2023) Medications Medication Sig Dispensed Refills Start Date [...] EVERY DAY 90 Capsule 2 05/10/2023 Active hydroCHLOROthiaz serene 12.5 MG Oral Capsule (Hydrodiuril) TAKE 1 CAPSULE BY MOUTH EVERY DAY 90 Capsule 3 06/06/2022 3 Discontinued documented as of this encounter (statuses as of 05/10/2023) Active Problems Problem Noted Date Prostate cancer [...] glucose 12/16/2005 Macular degeneration 12/02/1999 DISC DIS [id number] documented as of this encounter (statuses as of 05/10/2023) Resolved Problems Problem Noted Date Resolved Date Prediabetes 11/08/2018 04/17/2022 Overview: Per Prediabetes protocol #1 Morbid (severe) obesity due to excess calories 0 08/19/2017 03/09/2019 Infective otitis externa 09/08/2012 013 Cough 07/03/2012 08/18/2012 Benign neoplasm of colon 05/10/2007 019 Overview: adenomatous repeat colonoscopy in 5 years ARTHRITIS,RHEUMATOID 07/07/2006 05/12/2016 [id number] 07/07/2006 11/17/19 10 Overview: Renamed Per Clinical Trials Billing Project. Pt is a participant in the [employer] (Consortium of [employer] [place]) national data collection study. For further information please call Dr Hari Clark or Julia White, RN, CCRC at [phone] [employer] RESEARCH OTHER*[id number] 07/07/2006 01/28/2010 Overview: Renamed Per Clinical Trials Billing Project. Pt is a participant in the [employer] (Consortium of [place]ology [place]) national data collection study. For further information please call Dr Hari Clark or Julia White RN, CCRC at [phone] Hearing loss 12/02/1999 03/29/2013 documented as of this encounter (statuses as of 05/10/2023) Immunizations Name Administration Dates Next Due COVID-19 [...] encounter Miscellaneous Notes * Telephone Encounter - Liz Adorno RPh - 05/10/2023 11:10 AM EDTSigned Prescriptions: Disp Refills hydroCHLOROthiazide 12.5 MG Oral Capsule (*90 Cap*2 Sig: TAKE 1CAPSULE BY MOUTH EVERY DAYAuthorizing Provider: KAT HUITRON User: LIZ ADORNO--- documented in this encounter Plan of Treatment Upcoming Encounters Date Type Specialty Care Team Description 05/11/2023 Laboratory Laboratory [place], [address] [place] [address] 05/12/2023 Pharm[place] [facility] [place] [facility] Hem[facility]Onc [address] [place] [address] 05/19/2023 Office Visit Urology Vinay Sexton MD 27 [facility] [address] [place] [address] 05/25/2023 Laboratory Laboratory [place], Laboratory [address] [place] [address] 06/08/2023 Laboratory Laboratory [facility] [address] [place] [address] 06/09/2023 Office Visit Hematology Oncology Patrice Puente MD [address] [place] [address] 06/22/2023 Laboratory Laboratory [place], Laboratory [address] [place] [address] 06/22/2023 Office Visit Family Medicine Kat Huitron, [address] [place] [address] 08/14/2023 Nurse Only Urology [place], Nurse Urology [place] [address] [place] [address] 09/10/2023 Office Visit Rheumatology Mendel Wilson MD [address] [place] [address] Scheduled Procedures Name Priority Associated Diagnoses Date/Ti me COLONOSCOPY FLEXIBLE PROXIMAL DIAGNOSTIC Recall Hx of colonic polyps Health Maintenance Due Date Last Done Comments CKD PHOS USE SMARTSET 55937 02/23/1963 DXA Scan 01/10/2021 01/10/2019, 12/0 12/2005, [...] Additional history exists CKD HGB USE SMARTSET 25822 04/21/202404/21, 04/21/2023, 04/16/2023, Additional history exists DTaP,Tdap,and Td Vaccines (3 - Td or Tdap) 12/04/2026 12/04/2016, 12/03/2006, 12/15/1996, Additional history exists Pneumococcal Vaccine: 65+ Years Completed 10/02/2014, 09/01/2011, 07/07/2006 Zoster Vaccines Completed 01/05/2020, 08/05, 10/02/2014 VITAMIN D LEVEL ONCE IN A LIFETIME-USE SMARTSET# [id number] Completed 05/27/2021, 09/07/2019, 01/10/2019, Additional history exists [...] filedocumented as of this encounter Care Teams Senior Ios Software Engineer Relationship Specialty Start Date End Date Kat Huitron, DO [address] [place] [address] PCP - General Family Medicine 07/11/19 documented as of this encounter
--- OUTSIDE RECORDS SUMMARY | 2023-09-01 04:47 | External Medical Summary | Summary of Care ---
Author Name Unknown Organization [facility] Address [address] [place] [address] Phone [phone] Care Team Providers Care Children'S Minister Name Role Phone Rhianna Huitron DO Primary Care Provider [phone] Reason for Visit * Reason Comments Medication Management Encounter Details Date Type Department Care Team Description 05/07/2023 Pharmacy Pharmacy Hematology Oncology [facility] [address] [place], [place] [id number] [facility] [place] [facility] Hem[facility]Onc [address] [place], [place] [phone] Prostate cancer (HCC)* Allergies Active Allergy Reactions Severity Noted Date Comments Brent Inhibitors Cough Low 11/26/2017 Alendronate Sodium Muscle pain 04/11/2019 Heartburn, constipation, joint pain Misoprostol Diarrhea 08/08/2003 Niacin Er 11/26/2010 Gas, hot flashes Pollen 01/01/2018 Watery eyes, sneezing Pravastatin 02/26/2007 Upset stomach, all .Statins Simvastatin 02/26/2007 Upset stomach documented as of this encounter (statuses as of 05/08/2023) Medications Medication Sig Dispensed Refills Start Date [...] as of this encounter (statuses as of 05/08/2023) Active Problems Problem Noted Date Prostate cancer [...] glucose 12/16/2005 Macular degeneration 12/02/1999 DISC DIS [id number] documented as of this encounter (statuses as of 05/08/2023) Resolved Problems Problem Noted Date Resolved Date Prediabetes 11/08/2018 04/17/2022 Overview: Per Prediabetes protocol #1 Morbid (severe) obesity due to excess calories 0 08/19/2017 03/09/2019 Infective otitis externa 09/08/2012 013 Cough 07/03/2012 08/18/2012 Benign neoplasm of colon 05/10/2007 019 Overview: adenomatous repeat colonoscopy in 5 years ARTHRITIS,RHEUMATOID 07/07/2006 05/12/2016 [id number] 07/07/2006 11/17/19 10 Overview: Renamed Per Clinical Trials Billing Project. Pt is a participant in the [employer] (Consortium of Rheumatology [place]) national data collection study. For further information please call Dr Hari Clark or Julia White, RN, CCRC at [phone] [facility] RESEARCH OTHER*[id number] 07/07/2006 01/28/2010 Overview: Renamed Per Clinical Trials Billing Project. Pt is a participant in the [employer] (Consortium of Rheumatology [place] national data collection study. For further information please call Dr Hari Clark or Julia White, RN, CCRC at [phone] Hearing loss 12/02/1999 03/29/2013 documented as of this encounter (statuses as of 05/08/2023) Immunizations Name Administration Dates Next Due COVID-19 mRNA, LNP-s, No Pre serve, 2-Dose Series ([employer]) 06/14/2021,10/10/2020,09/12/2020 COVID-19, LNP-s, No Preserve , Yousuf-sucrose, [...] this encounter Progress Notes * Enedina Ordoñez, [facility] - 05/07/2023 11:54 AM EDT MEDICATION THERAPY MANAGEMENT ABIRATERONE TREATMENT PROGRESS NOTE Markus Wharton (Ron) [phone] Patient Phone Numbers Preferred Lab: [facility] Communication: Left message requesting return call to assess toleration to therapy Treatment: Medication: Abiraterone (Zytiga) Indication/Staging/Diagnosis Code: prostate cancer/ C61 Dose: 1000mg daily Administration: empty stomach (1 hour before or 2 hours after a meal) Start Date: 04/27/23 Primary International First Officer/Oncologist: Dr. Leon Puente Additional Therapy: Prednisone 5mg daily Lupron Supportive Care Meds: None Prophylactic Meds: Losartain 12.5mg daily HCTZ 12.5mg daily Treatment History: 04/08/23-present: Lupron Interval History: Confirms starting RT 04/30/23 Pt has chronic RA resolved with MTX and APAP as needed. Changes to medication list since last visit? No Follow up: 05/12 with labs Enedina Ordoñez, PharmD, BCOP Clinical Pharmacist, [facility] Oral Chemotherapy [facility] 05/08/2023, 8:53 AM Monitoring Parameters: Estimated CrCl Serum creatinine: 1.8 mg/dL (H) 04/21/23 1003 Estimated creatinine clearance: 51.6 mL/min (A) Hepatitis panel Latest Reference Range [...] Pertinent labs: N/A Time Spent on Encounter: < 5 minutes documented in this encounter Plan of Treatment Upcoming Encounters Date Type Specialty Care Team Description 05/11/2023 Laboratory Laboratory [place], Laboratory [address] [place] [address] 05/19/2023 Office Visit [facility]rology [facility] [address] [place] [address] 05/25/2023 Laboratory Laboratory [place], Laboratory [address] [place] [address] 06/08/2023 Laboratory Laboratory [place], Laboratory [address] [place] [address] 06/09/2023 Office Visit Hematology Oncology Patrice Puente MD [address] [place], [place] [address] 06/22/2023 Laboratory Laboratory [place], Laboratory [address] [place] [address] 06/22/2023 Office Visit Family Medicine Rhianna Huitron DO [address] [place] [address] 08/14/2023 Nurse Only Urology [place], Nurse Urology [place] [address] [facility] [place] [address] 09/10/2023 Office Visit Rheumatology Mendel Wilson MD [address] [place] [address] Scheduled Procedures Name Priority Associated Diagnoses Date/Ti me COLONOSCOPY FLEXIBLE PROXIMAL DIAGNOSTIC Recall Hx of colonic polyps Health Maintenance Due Date Last Done Comments CKD PHOS USE SMARTSET 63607 02/23/1963 DXA Scan 01/10/2021 01/10/2019, 12/2005, 07/07/2006 [...] Additional history exists CKD HGB USE SMARTSET 59856 04/21/202404/21, 04/21/2023, 04/16/2023, Additional history exists DTaP,Tdap,and Td Vaccines (3 - Td or Tdap) 12/04/2026 12/04/2016, 12/03/2006, 12/15/1996, Additional history exists Pneumococcal Vaccine: 65+ Years Completed 10/02/2014, 09/01/2011, 07/07/2006 Zoster Vaccines Completed 01/05/2020, 08/05, 10/02/2014 VITAMIN D LEVEL ONCE IN A LIFETIME-USE SMARTSET# [id number] Completed 05/27/2021, 09/07/2019, 01/10/2019, Additional history exists [...] prostate documented in this encounter Care Teams Children'S Minister Relationship Specialty Start Date End Date Rhianna Huitron, [address] [place] [address] PCP - General Family Medicine 07/11/19 documented as of this encounter
--- OUTSIDE RECORDS SUMMARY | 2023-09-01 04:47 | External Medical Summary ---
Author Name Unknown Address Unknown Organization K01:LABORATORY [facility] [place] - [facility] [address] [facility] [address] [facility] [address] Laboratory Report Ordering Provider Test Date Status JOHNATHON CASILLAS 05/11/2023 11:14:55 Final Observation Date Value Abnormality Reference (Units ) Status WBC, Total 05/11/2023 11:14:55 9.52 4.00-10.80 (K/uL) Final RBC 05/11/2023 11:14:55 3.51 4.50-5.25 (M/uL) Final Hemoglobin 05/11/2023 11:14:55 10.5 Below low normal 14.0-16.8 (g/dL) Final HCT 05/11/2023 11:14:55 33.3 Below low normal 40.0-48.4 (%) Final MCV 05/11/2023 11:14:55 94.9 82.0-99.5 (fL) Final MCH 05/11/2023 11:14:55 29.9 27.0-34.0 (pg) Final MCHC 05/11/2023 11:14:55 31.5 32.0-36.0 (g/dL) Final RDW 05/11/2023 11:14:55 15.2 11.5-15.5 (%) Final Platelets 05/11/2023 11:14:55 274 140-400 (K/uL) Final MPV 05/11/2023 11:14:55 11.2 6.6-11.1 (fL) Final Nucleated erythrocytes/100 leukocytes [Ratio] in Blood by Automated count 05/11/2023 11:14:55 0 <=0 (/100 WBCs) Final Performing Location [facility] [address] [facility] [address] [facility] [address]
--- OUTSIDE RECORDS SUMMARY | 2023-09-01 04:47 | External Medical Summary | Summary of Care ---
Author Name Unknown Organization [facility] Address [address] [place] [address] Phone [phone] Care Team Providers Care Pipe Washer Name Role Phone Rhianna Huitron DO Primary Care Provider Reason for Visit * Reason Comments Medication Management Encounter Details Date Type Department Care Team Description 05/12/2023 Pharmacy Pharmacy Hematology Oncology [facility] [address] [place], [place] [phone] [facility] [place] [facility] Hem/Onc [address] [place], [place] [phone] Prostate cancer (HCC)* Allergies Active Allergy Reactions Severity Noted Date Comments Brent Inhibitors Cough Low 11/26/2017 Alendronate Sodium Muscle pain 04/11/2019 Heartburn, constipation, joint pain Misoprostol Diarrhea 08/08/2003 Niacin Er 11/26/2010 Gas, hot flashes Pollen 01/01/2018 Watery eyes, sneezing Pravastatin 02/26/2007 Upset stomach, all .Statins Simvastatin 02/26/2007 Upset stomach documented as of this encounter (statuses as of 05/12/2023) Medications Medication Sig Dispensed Refills Start Date [...] as of this encounter (statuses as of 05/12/2023) Active Problems Problem Noted Date Prostate cancer [...] glucose 12/16/2005 Macular degeneration 12/02/1999 DISC DIS [id number] documented as of this encounter (statuses as of 05/12/2023) Resolved Problems Problem Noted Date Resolved Date Prediabetes 11/08/2018 04/17/2022 Overview: Per Prediabetes protocol #1 Morbid (severe) obesity due to excess calories 0 08/19/2017 03/09/2019 Infective otitis externa 09/08/2012 013 Cough 07/03/2012 08/18/2012 Benign neoplasm of colon 05/10/2007 019 Overview: adenomatous repeat colonoscopy in 5 years ARTHRITIS,RHEUMATOID 07/07/2006 05/12/2016 [id number] 07/07/2006 11/17/19 10 Overview: Renamed Per Clinical Trials Billing Project. Pt is a participant in the [employer] (Consortium of Rhe[employer] [place] national data collection study. For further information please call Dr Hari Clark or Julia White, RN, CCRC at [phone] [facility] RESEARCH OTHER*[id number] 07/07/2006 01/28/2010 Overview: Renamed Per Clinical Trials Billing Project. Pt is a participant in the [employer] (Consortium of Rheumatology [place] national data collection study. For further information please call Dr Hari Clark or Julia White, RN, CCRC at [phone] Hearing loss 12/02/1999 03/29/2013 documented as of this encounter (statuses as of 05/12/2023) Immunizations Name Administration Dates Next Due COVID-19 mRNA, LNP-s, No Pre serve, 2-Dose Series ([employer]) 06/14/2021,10/10/2020,09/12/2020 COVID-19, LNP-s, No Preserve , Yousuf-sucrose, [...] this encounter Progress Notes * Enedina Ordoñez, [facility] - 05/12/2023 12:39 PM EDT MEDICATION THERAPY MANAGEMENT ABIRATERONE TREATMENT PROGRESS NOTE Markus Wharton (Ron) [phone] Patient Phone Numbers Preferred Lab: [facility] Communication: Spoke to: Patient Treatment: Medication: Abiraterone (Zytiga) Indication/Staging/Diagnosis Code: prostate cancer/ C61 Dose: 1000mg daily Administration: empty stomach (1 hour before or 2 hours after a meal) Start Date: 04/27/23 Primary Correctional Therapy Director/Oncologist: Dr. Leon Puente Additional Therapy: Prednisone 5mg daily Lupron Supportive Care Meds: None Prophylactic Meds: Losartain 12.5mg daily HCTZ 12.5mg daily Treatment History: 04/08/23-present: Lupron Interval History: Pt has chronic RA resolved with MTX and APAP as needed. Reports stable BP < 150/90 Reports mild weight loss due to better sleep and less snacking. Denies decreased appetite or dysgeusia Reports ongoing hot flashes resolved with fan at night Reports hives on shoulders and back resolved with Eucerin cream No other concerns, tolerating therapy well Changes to medication list since last visit? No Assessment and Plan: Hgb improving ANC slightly elevated. Will monitor closely Creatinine elevated but declining All other labs stable Continue BP monitoring and contact PCP if BP > 150/90 Advised pt to contact office if unintended weight loss occurs Continue cooling methods for hot flash management Continue Eucerin cream for hives. Advised pt to contact office if hives worsen or pruritus occurs Continue current therapy and q2wk labs Assessment of compliance: compliant Assessment of adverse effects attributed to drug therapy: Edema/fluid retention - absent HTN - absent Joint swelling or discomfort - absent Arthralgias/Myalgias - absent Diarrhea/Constipation - absent Dose adjustment needed based on lab or adverse drug reaction? No Follow up: 1 week Enedina Ordoñez, PharmD, BCOP Clinical Pharmacist, MTD Oral Chemotherapy [facility] 05/12/2023, 1:04 PM Monitoring Parameters: Estimated CrCl Serum creatinine: [...] Pertinent labs: Latest Reference Range & Units 04/16/23 12:39 04/21/23 10:03 05/11/23 11:14 WBC 4.00 - 10.80 K/uL 8.73 9.69 9.52 HGB 14.0 - 16.8 g/dL 8.1 (L) 9.5 (L) 10.5 (L) HCT 40.0 - 48.4 % 26.5 (L) 31.1 (L) 33.3 (L) MCV 82.0 - 99.5 fL 97.1 98.1 94.9 PLT 140 - 400 K/uL 307 318 274 Absolute Neutrophils 1.80 - 7.70 K/uL 6.09 7.37 8.25 (H) Latest Reference Range & Units 04/10/23 13:02 04/21/23 10:03 05/11/23 11:14 BUN 6 - 20 mg/dL 28 (H) 22 (H) 21 (H) Creatinine 0.6 - 1.2 mg/dL 1.9 (H) 1.8 (H) 1.5 (H) Estimated Glomerular Filtration Rate >=60 mL/min 37 (L) 39 (L) 47 (L) Latest Reference Range & Units 04/10/23 13:02 04/21/23 10:03 05/11/23 11:14 Albumin 3.8 - 5.0 g/dL 3.8 4.1 3.9 AST 10 - 50 U/L 14 19 22 ALT 10 - 50 U/L 9 (L) 16 29 Alkaline Phosphatase 35 - 130 U/L 87 92 88 Bilirubin, Total <=1.2 mg/dL 0.3 0.4 0.3 Time Spent on Encounter: 11 - 15 [...] Office Visit Urology Vinay Sexton MD [address] [address] [place] [address] 05/25/2023 Laboratory Laboratory [facility] [address] [place] [address] 06/08/2023 Laboratory Laboratory [facility] [address] [place] [address] 06/09/2023 Office Visit Hematology Oncology Patrice Puente MD [address] [place] [address] 06/22/2023 Laboratory Laboratory [place], Laboratory [address] [place] [address] 06/22/2023 Office Visit Family Medicine Rhianna Huitron DO [address] [place] [address] 08/14/2023 Nurse Only Urology [place], Nurse Urology [place] [address] [place] [address] 09/10/2023 Office Visit Rheumatology Mendel Wilson MD [address] [place] [address] Scheduled Procedures Name Priority Associated Diagnoses Date/Ti me COLONOSCOPY FLEXIBLE PROXIMAL DIAGNOSTIC Recall Hx of colonic polyps Health Maintenance Due Date Last Done Comments CKD PHOS USE SMARTSET 86089 02/23/1963 DXA Scan 01/10/2021 01/10/2019, 12/2005, 07/07/2006 [...] Additional history exists CKD HGB USE SMARTSET 58510 05/11/202405/11, 05/11/2023, 04/21/2023, Additional history exists DTaP,Tdap,and Td Vaccines (3 - Td or Tdap) 12/04/2026 12/04/2016, 12/03/2006, 12/15/1996, Additional history exists Pneumococcal Vaccine: 65+ Years Completed 10/02/2014, 09/01/2011, 07/07/2006 Zoster Vaccines Completed 01/05/2020, 08/05, 10/02/2014 VITAMIN D LEVEL ONCE IN A LIFETIME-USE SMARTSET# [id number] Completed 05/27/2021, 09/07/2019, 01/10/2019, Additional history exists [...] prostate documented in this encounter Care Teams Pipe Washer Relationship Specialty Start Date End Date Rhianna Huitron DO [address] [place] [address] PCP - General Family Medicine 07/11/19 documented as of this encounter
--- OUTSIDE RECORDS SUMMARY | 2023-09-01 04:47 | External Medical Summary | Summary of Care ---
Author Name Unknown Organization [facility] Address [address] [facility] [place] [address] Phone [phone] Care Team Providers Care Quartz Cutter Name Role Phone Rhianna Huitron DO Primary Care Provider Reason for Visit * Reason Onset Date Comments Advice 04/28/2023 F/u appt s/p XRT for prostate cancer Encounter Details Date Type Department Care Team Description 04/28/2023 Telephone [facility] [address] [place] [address] Rhianna Huitron DO [address] [place] [address] Advice (F/u appt s/p XRT [...] glucose 12/16/2005 Macular degeneration 12/02/1999 DISC DIS [id number] documented as of this encounter (statuses as of 04/30/2023) Resolved Problems Problem Noted Date Resolved Date Prediabetes 11/08/2018 04/17/2022 Overview: Per Prediabetes protocol #1 Morbid (severe) obesity due to excess calories 0 08/19/2017 03/09/2019 Infective otitis externa 09/08/2012 013 Cough 07/03/2012 08/18/2012 Benign neoplasm of colon 05/10/2007 019 Overview: adenomatous repeat colonoscopy in 5 years ARTHRITIS,RHEUMATOID 07/07/2006 05/12/2016 [id number] 07/07/2006 11/17/19 10 Overview: Renamed Per Clinical Trials Billing Project. Pt is a participant in the [employer] ([employer]ortium of [employer] [place] national data collection study. For further information please call Dr Hari Clark or Julia White, RN, CCRC at [phone] [employer] RESEARCH OTHER*[id number] 07/07/2006 01/28/2010 Overview: Renamed Per Clinical Trials Billing Project. Pt is a participant in the [employer] ([employer]ortium of [employer] [place] national data collection study. For further information please call Dr Hari Clark or Julia White RN, CCRC at [phone] Hearing loss 12/02/1999 03/29/2013 documented as of [...] recommend. Pls reach out to him at [phone] to schedule. documented in this encounter Plan of Treatment Upcoming Encounters Date Type Specialty Care Team Description 05/11/2023 Laboratory Laboratory [facility] [address] [place] [address] 05/19/2023 Office Visit Urology Vinay Sexton MD [address] [place] [address] 05/25/2023 Laboratory Laboratory [facility] [address] [place] [address] 06/08/2023 Laboratory Laboratory [place], Laboratory [address] [place] [address] 06/09/2023 Office Visit Hematology Oncology Patrice Puente MD [address] [place] [address] 06/22/2023 Laboratory Laboratory [facility] [address] [place] [address] 08/14/2023 Nurse Only Urology [place], Nurse Urology [place] [address] [facility] [place] [address] 09/10/2023 Office Visit Rheumatology Mendel Wilson MD [address] [place] [address] Scheduled Procedures Name Priority Associated Diagnoses Date/Ti me COLONOSCOPY FLEXIBLE PROXIMAL DIAGNOSTIC Recall Hx of colonic polyps Health Maintenance Due Date Last Done Comments CKD PHOS USE SMARTSET 42365 02/23/1963 DXA Scan 01/10/2021 01/10/2019, 12/2005, 07/07/2006 [...] Additional history exists CKD HGB USE SMARTSET 22607 04/21/202404/21, 04/21/2023, 04/16/2023, Additional history exists DTaP,Tdap,and Td Vaccines (3 - Td or Tdap) 12/04/2026 12/04/2016, 12/03/2006, 12/15/1996, Additional history exists Pneumococcal Vaccine: 65+ Years Completed 10/02/2014, 09/01/2011, 07/07/2006 Zoster Vaccines Completed 01/05/2020, 08/05, 10/02/2014 VITAMIN D LEVEL ONCE IN A LIFETIME-USE SMARTSET# [id number] Completed 05/27/2021, 09/07/2019, 01/10/2019, Additional history exists [...] filedocumented as of this encounter Care Teams Quartz Cutter Relationship Specialty Start Date End Date Rhianna Huitron, DO [address] [place] [address] PCP - General Family Medicine 07/11/19 documented as of this encounter
--- OUTSIDE RECORDS SUMMARY | 2023-09-01 04:47 | External Medical Summary | Summary of Care ---
Author Name Unknown Organization [facility] Address [address] [facility] [address] Phone [phone] Care Team Providers Care Insole Stiffener Name Role Phone Elana Rhiannajason Rebollar DO Primary Care Provider Reason for Visit * Reason Onset Date Comments Test Results 04/28/2023 Encounter Details Date Type Department Care Team Description 04/28/2023 Telephone Hematology/Oncology Treatment, [place] [address] [place] [address] Patrice Puente MD [address] [place] [address] Test Results Allergies Active Allergy Reactions Severity Noted Date Comments Brent Inhibitors Cough Low 11/26/2017 Alendronate Sodium Muscle pain 04/11/2019 Heartburn, constipation, joint pain Misoprostol Diarrhea 08/08/2003 Niacin Er 11/26/2010 Gas, hot flashes Pollen 01/01/2018 Watery eyes, sneezing Pravastatin 02/26/2007 Upset stomach, all .Statins Simvastatin 02/26/2007 Upset stomach documented as of this encounter (statuses as of 04/28/2023) Medications Medication Sig Dispensed Refills Start Date [...] as of this encounter (statuses as of 04/28/2023) Active Problems Problem Noted Date Prostate cancer [...] glucose 12/16/2005 Macular degeneration 12/02/1999 DISC DIS [id number] documented as of this encounter (statuses as of 04/28/2023) Resolved Problems Problem Noted Date Resolved Date Prediabetes 11/08/2018 04/17/2022 Overview: Per Prediabetes protocol #1 Morbid (severe) obesity due to excess calories 0 08/19/2017 03/09/2019 Infective otitis externa 09/08/2012 013 Cough 07/03/2012 08/18/2012 Benign neoplasm of colon 05/10/2007 019 Overview: adenomatous repeat colonoscopy in 5 years ARTHRITIS,RHEUMATOID 07/07/2006 05/12/2016 [id number] 07/07/2006 11/17/19 10 Overview: Renamed Per Clinical Trials Billing Project. Pt is a participant in the [employer] ([employer]ortium of [employer] [place]) national data collection study. For further information please call Dr Hari Clark or Julia White, RN, CCRC at [phone] [facility] OTHER*[id number] 07/07/2006 01/28/2010 Overview: Renamed Per Clinical Trials Billing Project. Pt is a participant in the [employer] ([employer]ortium of [employer] [place] national data collection study. For further information please call Dr Hari Clark or Julia White, RN, CCRC at [phone] Hearing loss 12/02/1999 03/29/2013 documented as of this encounter (statuses as of 04/28/2023) Immunizations Name Administration Dates Next Due COVID-19 [...] encounter Miscellaneous Notes * Telephone Encounter - Daniela Capps RN - 04/28/2023 2:[address] Puente: "-EPO level -> 29.7 which is on the higher side but It is inappropriately low withthe magnitude of the hemoglobin level of 9.5 (04/21/2023). -hemoglobin improved from 8.1 -> 9.5. I would like to repeat another CBCD in about 1 to 2 weeks time. " Called patient and reviewed the above. He verbalizes understanding. He had no questions. He will have labs done on 05/11 at [facility]- this is already scheduled. documented in this encounter Plan of Treatment Upcoming Encounters Date Type Specialty Care Team Description 04/30/2023 Pharmacy Pharmacy [place], [facility] Hem/Onc [address] [place] [address] 05/11/2023 Laboratory Laboratory [place], [facility] [address] [place] [address] 05/19/2023 Office Visit Urology Vinay Sexton MD [address] [address] 05/25/2023 Laboratory [facility] [place], [facility] [address] [place] [address] 06/08/2023 Laboratory [facility] [place], Laboratory [address] [place] [address] 06/09/2023 Office Visit Hematology Oncology Patrice Puente MD [address] [place] [facility] [place] [address] 06/22/2023 Laboratory Laboratory [facility] [address] [place] [address] 08/14/2023 Nurse Only Urology [place], Nurse Urology [place] [address] [place] [address] 09/10/2023 Office Visit Rheumatology Mendel Wilson MD [address] [place] [address] Scheduled Procedures Name Priority Associated Diagnoses Date/Ti me COLONOSCOPY FLEXIBLE PROXIMAL DIAGNOSTIC Recall Hx of colonic polyps Health Maintenance Due Date Last Done Comments CKD PHOS USE SMARTSET 39556 02/23/1963 DXA Scan 01/10/2021 01/10/2019, 12/2005, 07/07/2006 Depression Screening 03/13/2021 03/13/2020 Influenza Vaccine (FLU shot) (#1) 2023 05/08/2022, 05/07/2021, 04/17/2020, Additional history exists Albumin/Creatinine Ratio 04/10/2023 04/10/2022, 10/2006 HbA1c 06/26/2023 12/24/2022, 0412/2022, 04/10/2022, Additional history exists GFR 10/20/2023 04/21/2023, 03/2023, 03/26/2023, Additional history exists Diabetic Foot Exam 12/25/2023 12/24/2022 COLONOSCOPY-EVERY 5 YRS AGES 18-100 01/22/2024 01/21/2019, 01/21/2019, 05/10/2013, Additional history exists DIABETES-EYE EXAM 01/31/2024 01/30/2023, , 01/25/2021, Additional history exists CKD HGB USE SMARTSET 83411 04/21/202404/21, 04/21/2023, 04/16/2023, Additional history exists DTaP,Tdap,and Td Vaccines (3 - Td or Tdap) 12/04/2026 12/04/2016, 12/03/2006, 12/15/1996, Additional history exists Pneumococcal Vaccine: 65+ Years Completed 10/02/2014, 09/01/2011, 07/07/2006 Zoster Vaccines Completed 01/05/2020, 08/05, 10/02/2014 VITAMIN D LEVEL ONCE IN A LIFETIME-USE SMARTSET# [id number] Completed 05/27/2021, 09/07/2019, 01/10/2019, Additional history exists [...] filedocumented as of this encounter Care Teams Insole Stiffener Relationship Specialty Start Date End Date Rhianna Huitron, [address] [place] [address] PCP - General Family Medicine 07/11/19 documented as of this encounter
--- OUTSIDE RECORDS SUMMARY | 2023-09-01 04:47 | External Medical Summary | Summary of Care ---
Author Name Unknown Organization [facility] Address [address] [place] [address] Phone [phone] Care Team Providers Care Fire Extinguisher Technician Name Role Phone Rhianna Huitron DO Primary Care Provider Reason for Visit * Reason Comments Medication Management Encounter Details Date Type Department Care Team Description 04/30/2023 Pharmacy Pharmacy Hematology Oncology [facility] [address] [place] [address] [facility] Hem/Onc [address] [place], [place] [id number] Prostate cancer (HCC)* Allergies Active Allergy Reactions [...] glucose 12/16/2005 Macular degeneration 12/02/1999 DISC DIS [id number] documented as of this encounter (statuses as of 04/30/2023) Resolved Problems Problem Noted Date Resolved Date Prediabetes 11/08/2018 04/17/2022 Overview: Per Prediabetes protocol #1 Morbid (severe) obesity due to excess calories 0 08/19/2017 03/09/2019 Infective otitis externa 09/08/2012 013 Cough 07/03/2012 08/18/2012 Benign neoplasm of colon 05/10/2007 019 Overview: adenomatous repeat colonoscopy in 5 years ARTHRITIS,RHEUMATOID 07/07/2006 05/12/2016 [id number] 07/07/2006 11/17/19 10 Overview: Renamed Per Clinical Trials Billing Project. Pt is a participant in the [employer] ([employer]ortium of [employer] [place] national data collection study. For further information please call Dr Hari Clark or Julia White, RN, CCRC at [phone] [facility] RESEARCH OTHER*[id number] 07/07/2006 01/28/2010 Overview: Renamed Per Clinical Trials Billing Project. Pt is a participant in the [employer] ([employer]ortium of [employer]ology [place] national data collection study. For further information please call Dr Hari Clark or Julia White, RN, CCRC at [phone] Hearing loss 12/02/1999 03/29/2013 documented as of this encounter (statuses as of 04/30/2023) Immunizations Name Administration Dates Next Due COVID-19 mRNA, LNP-s, No Pre serve, 2-Dose Series (PhotoShelter) 06/14/2021,10/10/2020,09/12/2020 COVID-19, LNP-s, No Preserve , Yousuf-sucrose, [...] of this encounter Progress Notes * Enedina Walker Ordoñez, [facility] - 04/30/2023 11:33 AM EDT MEDICATION THERAPY MANAGEMENT ABIRATERONE TREATMENT PROGRESS NOTE Markus "Anival Wharton [id number] Patient Phone Numbers Preferred Lab: [place] [facility]: [facility] Communication: Spoke to: Patient Treatment: Medication: Abiraterone (Zytiga) Indication/Staging/Diagnosis Code: prostate cancer/ C61 Dose: 1000mg daily Administration: empty stomach (1 hour before or 2 hours after a meal) Start Date: 04/27/23 Primary Continuity Tester/Oncologist: Dr. Leon Puente Additional Therapy: Prednisone 5mg daily Lupron Supportive Care Meds: None Prophylactic Meds: Losartain 12.5mg daily HCTZ 12.5mg daily Treatment History: 04/08/23-present: Lupron Interval History: Confirmed start date as above Confirms starting RT 04/30/23 Reports stable BP 120s/60s Reports chronic RA resolved with MTX and APAP as needed. Denies increased pain since starting treatment Reports increased BM but denies diarrhea, loperamide use, or dehydration Reports mild hot flashes that resolve on own Reports increased fatigue secondary to anemia No other concerns, tolerating therapy well Changes to medication list since last visit? No Assessment and Plan: Continue BP monitorig and follow up with PCP if BP > 150/90 Reviewed APAP dosing (MDD 3000mg) and to contact craft artist if RA pain worsens Reviewed dressing in layers, using a fan, and applying a cold compress to pressure points for hot flash management. Pt replied with understanding Advised pt to rest if needed, work when able, and contact office if fatigue affecting QoL or ADLs Continue current therapy and q2wk labs Assessment of compliance: compliant Assessment of adverse effects attributed to drug therapy: Edema/fluid retention - absent HTN - absent Joint swelling or discomfort - absent Arthralgias/Myalgias - present, chronic Diarrhea/Constipation - absent Dose adjustment needed based on lab or adverse drug reaction? No Follow up: 1 week Enedina Ordoñez, PharmD, BCOP Clinical Pharmacist, [facility] Oral Chemotherapy [facility] 04/30/2023, 2:30 PM Monitoring Parameters: Estimated CrCl Serum creatinine: 1.8 [...] Pertinent labs: N/A Time Spent on Encounter: 11 - 15 minutes Encounter Group: Oncology Encounter Interventions Item Category: Oral Chemotherapy Abiraterone Problem/Rationale: Safety: Needs additional monitoring - Medication Requires monitoring Pharmacist Intervention(s): Non-pharmacological intervention provided and Toxicity monitoring Magnitude of Intervention: Monitoring with direction (Level 1) documented in this encounter Plan of Treatment Upcoming Encounters Date Type Specialty Care Team Description 05/11/2023 Laboratory Laboratory [place], [facility] [address] [place] [facility] [place] [address] 05/19/2023 Office Visit Urology Vinay Sexton MD [address] [place] [place] [address] 05/25/2023 Laboratory Laboratory [place], Laboratory [address] [place] [address] 06/08/2023 Laboratory Laboratory [place], Laboratory [address] [place] [address] 06/09/2023 Office Visit Hematology Oncology Patrice Puente MD [address] [place] [address] 06/22/2023 Laboratory Laboratory [place], Laboratory [address] [place] [address] 08/14/2023 Nurse Only Urology [place], Nurse Urology [place] [address] [place] [address] 09/10/2023 Office Visit Rheumatology Mendel Wilson MD [address] [place] [address] Scheduled Procedures Name Priority Associated Diagnoses Date/Ti me COLONOSCOPY FLEXIBLE PROXIMAL DIAGNOSTIC Recall Hx of colonic polyps Health Maintenance Due Date Last Done Comments CKD PHOS USE SMARTSET 02840 02/23/1963 DXA Scan 01/10/2021 01/10/2019, 12/2005, 07/07/2006 [...] Additional history exists CKD HGB USE SMARTSET 25295 04/21/202404/21, 04/21/2023, 04/16/2023, Additional history exists DTaP,Tdap,and Td Vaccines (3 - Td or Tdap) 12/04/2026 12/04/2016, 12/03/2006, 12/15/1996, Additional history exists Pneumococcal Vaccine: 65+ Years Completed 10/02/2014, 09/01/2011, 07/07/2006 Zoster Vaccines Completed 01/05/2020, 08/05, 10/02/2014 VITAMIN D LEVEL ONCE IN A LIFETIME-USE SMARTSET# [id number] Completed 05/27/2021, 09/07/2019, 01/10/2019, Additional history exists [...] prostate documented in this encounter Care Teams Fire Extinguisher Technician Relationship Specialty Start Date End Date Rhianna Huitron, [address] [place] [address] PCP - General Family Medicine 07/11/19 documented as of this encounter
--- OUTSIDE RECORDS SUMMARY | 2023-09-01 04:47 | External Medical Summary | Summary of Care ---
Author Name Unknown Organization [facility] Address [address] [facility] [place] [address] Phone [phone] Care Team Providers Care Trim Sawyer Name Role Phone Rhianna Huitron DO Primary Care Provider [phone] Reason for Visit * Reason Onset Date Comments Advice 04/28/2023 F/u appt s/p XRT for prostate cancer Encounter Details Date Type Department Care Team Description 04/28/2023 Telephone [facility] [address] [place] [address] Rhianna Huitron DO [address] [place] [address] Advice (F/u appt s/p XRT [...] as of this encounter (statuses as of 05/01/2023) Medications Medication Sig Dispensed Refills Start Date [...] as of this encounter (statuses as of 05/01/2023) Active Problems Problem Noted Date Prostate cancer [...] glucose 12/16/2005 Macular degeneration 12/02/1999 DISC DIS [id number] documented as of this encounter (statuses as of 05/01/2023) Resolved Problems Problem Noted Date Resolved Date Prediabetes 11/08/2018 04/17/2022 Overview: Per Prediabetes protocol #1 Morbid (severe) obesity due to excess calories 0 08/19/2017 03/09/2019 Infective otitis externa 09/08/2012 013 Cough 07/03/2012 08/18/2012 Benign neoplasm of colon 05/10/2007 019 Overview: adenomatous repeat colonoscopy in 5 years ARTHRITIS,RHEUMATOID 07/07/2006 05/12/2016 [id number] 07/07/2006 11/17/19 10 Overview: Renamed Per Clinical Trials Billing Project. Pt is a participant in the [employer] (Consortium of [employer] [place] national data collection study. For further information please call Dr Hari Clark or Julia White, RN, CCRC at [phone] [employer] RESEARCH OTHER*[id number] 07/07/2006 01/28/2010 Overview: Renamed Per Clinical Trials Billing Project. Pt is a participant in the [employer] ([employer]ortium of [employer]ology [place] national data collection study. For further information please call Dr Hari Clark or Julia White, RN, CCRC at [phone] Hearing loss 12/02/1999 03/29/2013 documented as of this encounter (statuses as of 05/01/2023) Immunizations Name Administration Dates Next Due COVID-19 [...] encounter Miscellaneous Notes * Telephone Encounter - KARLOS Allen - 05/01/2023 12:06 PM EDT Scheduled. 05/01/2023 * Telephone Encounter - Rhianna Huitron DO - 04/30/2023 12:46 PM EDT Jun 22 I have hosp dc can you that slot * Telephone Encounter - TEREZA Lazcano - 04/30/2023 10:42 AM EDT Please advise as below. Thank you. * Telephone Encounter - KARLOS Swan - 04/28/2023 9:[address] Elana Starr Pt had to cancel his appt in [...] recommend. Pls reach out to him at [phone] to schedule. documented in this encounter Plan of Treatment Upcoming Encounters Date Type Specialty Care Team Description 05/07/2023 Pharmacy Pharmacy [facility] Hem/Onc [address] [place], [place] [id number] 05/11/2023 Laboratory Laboratory [place], Laboratory [address] [place] [address] 05/19/2023 Office Visit Urology Vinay Sexton MD [address] [facility] [address] [facility] [place] [address] 05/25/2023 Laboratory Laboratory [place], Laboratory [address] [place] [address] 06/08/2023 Laboratory Laboratory [place], [facility] [address] [place] [address] 06/09/2023 Office Visit Hematology Oncology Patrice Puente MD [address] [place] [address] 06/22/2023 Laboratory Laboratory [place], Laboratory [address] [place] [address] 06/22/2023 Office Visit Family Medicine Rhianna Huitron DO [address] [place] [address] 08/14/2023 Nurse Only Urology [place], Nurse Urology [place] [address] [place] [address] 09/10/2023 [facility] Visit [facility] [address] [facility] [address] Scheduled Procedures Name Priority Associated Diagnoses Date/Ti me COLONOSCOPY FLEXIBLE PROXIMAL DIAGNOSTIC Recall Hx of colonic polyps Health Maintenance Due Date Last Done Comments CKD PHOS USE SMARTSET 70987 02/23/1963 DXA Scan 01/10/2021 01/10/2019, 12/2005, 07/07/2006 [...] Additional history exists CKD HGB USE SMARTSET 12701 04/21/202404/21, 04/21/2023, 04/16/2023, Additional history exists DTaP,Tdap,and Td Vaccines (3 - Td or Tdap) 12/04/2026 12/04/2016, 12/03/2006, 12/15/1996, Additional history exists Pneumococcal Vaccine: 65+ Years Completed 10/02/2014, 09/01/2011, 07/07/2006 Zoster Vaccines Completed 01/05/2020, 08/05, 10/02/2014 VITAMIN D LEVEL ONCE IN A LIFETIME-USE SMARTSET# [id number] Completed 05/27/2021, 09/07/2019, 01/10/2019, Additional history exists [...] filedocumented as of this encounter Care Teams Trim Sawyer Relationship Specialty Start Date End Date Rhianna Huitron DO [address] [place] [address] PCP - General Family Medicine 07/11/19 documented as of this encounter
--- OUTSIDE RECORDS SUMMARY | 2023-09-01 04:48 | External Medical Summary ---
Author Name Unknown Address Unknown Organization K09:[facility] [place] [address] Laboratory Report Ordering Provider Test Date Status JOHNATHON CASILLAS 04/21/2023 10:03:55 Final Observation Date Value Abnormality Reference (Units ) Status BUN 04/21/2023 10:03:55 22 Above high normal 6-20 (mg/dL) Final Creatinine 04/21/2023 10:03:55 1.8 Above high normal 0.6-1.2 (mg/dL) Final Glomerular filtration rate/1.73 sq M.predicted [Volume Rate/Area] in Serum, Plasma or Blood by Creatinine-based formula (CKD-EPI) 04/21/2023 10:03:55 39 Below low normal >=60 (mL/min) Final eGFR is calculated based on the CKD-EPI 2020 equation SODIUM 04/21/2023 10:03:55 137 135-146 (m mol/L) Final Potassium 04/21/2023 10:03:55 4.4 3.5-5.1 (m mol/L) Final Cl 04/21/2023 10:03:55 98 98-107 (mm ol/L) Final CO2 04/21/2023 10:03:55 27 22-32 (mmo l/L) Final Anion gap 04/21/2023 10:03:55 12 7-15 (mmol /L) Final Glucose 04/21/2023 10:03:55 120 70-120 (mg /dL) Final Albumin 04/21/2023 10:03:55 4.1 3.8-5.0 (g /dL) Final AST (Aspartate aminotransferase) 04/21/2023 10:03:55 19 10-50 (U/L) Final Alk Phos 04/21/2023 10:03:55 92 35-130 (U/ L) Final Bilirubin, Total 04/21/2023 10:03:55 0.4 <=1 .2 (mg/dL) Final Calcium 04/21/2023 10:03:55 9.6 8.4-10.2 ( mg/dL) Final Protein 04/21/2023 10:03:55 7.5 6.0-8.3 (g /dL) Final ALT (Alanine aminotransferase) 04/21/2023 10:03:55 16 10-50 (U/L) Final Performing Location [facility] [place] [address]
--- OUTSIDE RECORDS SUMMARY | 2023-09-01 04:48 | External Medical Summary | Summary of Care ---
Author Name Unknown Organization [facility] Address [address] [facility] [address] Phone [phone] Care Team Providers Care Stock Replenisher Name Role Phone hRianna Huitron DO Primary Care Provider Reason for Visit * Reason Onset Date Comments Precert Future 04/14/2023 zytiga Encounter Details Date Type Department Care Team Description 04/14/2023 Telephone Hematology/Oncology Treatment, [place] [address] [place] [address] Patrice Puente MD [address] [place] [address] Precert Future (zytiga) Allergies Active Allergy Reactions Severity Noted Date Comments Brent Inhibitors Cough Low 11/26/2017 Alendronate Sodium Muscle pain 04/11/2019 Heartburn, constipation, joint pain Misoprostol Diarrhea 08/08/2003 Niacin Er 11/26/2010 Gas, hot flashes Pollen 01/01/2018 Watery eyes, sneezing Pravastatin 02/26/2007 Upset stomach, all .Statins Simvastatin 02/26/2007 Upset stomach documented as of this encounter (statuses as of 04/20/2023) Medications Medication Sig Dispensed Refills Start Date End Date Status ASPIR-81 81 MG PO TBEC 1 TABLET DAILY 0 06/19/2006 Active hydroCHLOROthiazide 12.5 MG Oral Capsule (Hydrodiuril) TAKE 1 CAPSULE BY MOUTH EVERY DAY 90 Capsule 3 06/06/2022 Active Folic Acid 1 MG Oral TabletIndications:A rthritis, rheumatoid (HCC) Take 1 Tablet by mouth in the morning. 90 Tablet 3 10/01/2022 Active Clindamycin Phosphate 1 % External LotionIndications:F olliculitis Apply topically to affected area 2 times a day. To affected area of skin. 60 mL 0 11/09/2022 Active Triamcinolone Acetonide 0.1 % External Cream (Aristocort)Indicat ions:Folliculitis Apply topically to affected area 2 times a day. To affected area. 30 g 1 11/09/2022 Active Tamsulosin HCl 0.4 MG Oral Capsule (Flomax) Take 1 Capsule by mouth in the morning. 90 Capsule 3 01/02/2023 Active Losartan Potassium 25 MG Oral Tablet (Cozaar) TAKE 1/2 TABLET BY MOUTH EVERY DAY 45 Tablet 1 01/23/2023 Active Methotrexate Sodium 2.5 MG Oral TabletIndications:A rthritis, rheumatoid (HCC) Take 5 tablets by mouth once weekly 65 Tablet 0 04/01/2023 Active documented as of this encounter (statuses as of 04/20/2023) Active Problems Problem Noted Date Prostate cancer [...] glucose 12/16/2005 Macular degeneration 12/02/1999 DISC DIS [id number] documented as of this encounter (statuses as of 04/20/2023) Resolved Problems Problem Noted Date Resolved Date Prediabetes 11/08/2018 04/17/2022 Overview: Per Prediabetes protocol #1 Morbid (severe) obesity due to excess calories 0 08/19/2017 03/09/2019 Infective otitis externa 09/08/2012 013 Cough 07/03/2012 08/18/2012 Benign neoplasm of colon 05/10/2007 019 Overview: adenomatous repeat colonoscopy in 5 years ARTHRITIS,RHEUMATOID 07/07/2006 05/12/2016 [id number] 07/07/2006 11/17/19 10 Overview: Renamed Per Clinical Trials Billing Project. Pt is a participant in the [facility] (Consortium of Rheumatology Researchers [place]) national data collection study. For further information please call Dr Hari Clark or Julia White, RN, CCRC at [phone] [facility] RESEARCH OTHER*[id number] 07/07/2006 01/28/2010 Overview: Renamed Per Clinical Trials Billing Project. Pt is a participant in the [facility] (Consortium of Rhe[employer]ology [place]) national data collection study. For further information please call Dr Hari Clark or Julia White, RN, CCRC at [phone] Hearing loss 12/02/1999 03/29/2013 documented as of this encounter (statuses as of 04/20/2023) Immunizations Name Administration Dates Next Due COVID-19 mRNA, LNP-s, No Pre serve, 2-Dose Series ([employer]) 06/14/2021,10/10/2020,09/12/2020 COVID-19, LNP-s, No Preserve , Yousuf-sucrose, Ages 12+ ([employer]) 12/25/2021 Covid-19, Mrna, Lnp-s, Pf, B ivalent, [...] encounter Miscellaneous Notes * Telephone Encounter - Enedina Ordoñez RPh - 04/16/2023 1:02 PM EDT Rx sent to [facility]. MTM to follow up in 3 days for medication education * Telephone Encounter - Alissa Hamilton RN - 04/16/2023 12:49 PM EDT MTM: please release treatment plan- approved to go to [facility]. Thanks! * Telephone Encounter - Alissa Hamilton RN - 04/14/2023 11:07 AM EDT Order received for zytiga/ prednisone. MTM already built beacon plan. Consent signed 04/10/23. Referral entered- can be filled at [facility]. Called patient to make him aware. Hep B labs 04/10/23. Patient is coming for nurse education 04/16/23- will need to repeat CBCd documented in this encounter Plan of Treatment Upcoming Encounters Date Type Specialty Care Team Description 04/21/2023 Pharmacy Pharmacy [facility] [place] [facility] [address] [facility] [address] 05/19/2023 Office Visit Urology Vinay Sexton MD [address] [place] [address] [place] [address] 05/29/2023 Office Visit Family Medicine Rhianna Huitron, DO [address] [facility] [address] 08/14/2023 Nurse Only Urology [place], Nurse Urology [place] [address] [place] [address] 09/10/2023 Office Visit Rheumatology Mendel Wilson MD [address] [place] [address] Scheduled Procedures Name Priority Associated Diagnoses Date/Ti me COLONOSCOPY FLEXIBLE PROXIMAL DIAGNOSTIC Recall Hx of colonic polyps Health Maintenance Due Date Last Done Comments CKD PHOS USE SMARTSET 01860 02/23/1963 DXA Scan 01/10/2021 01/10/2019, 12/2005, 07/07/2006 Depression Screening 03/13/2021 03/13/2020 Influenza Vaccine (FLU shot) (#1) 2023 05/08/2022, 05/07/2021, 04/17/2020, Additional history exists Albumin/Creatinine Ratio 04/10/2023 04/10/2022, 10/2006 HbA1c 06/26/2023 12/24/2022, 11/01, 04/10/2022, Additional history exists GFR 10/09/2023 04/10/2023, 03/04, 12/24/2022, Additional history exists Diabetic Foot Exam 12/25/2023 12/24/2022 COLONOSCOPY-EVERY 5 YRS AGES 18-100 01/22/2024 01/21/2019, 01/21/2019, 05/10/2013, Additional history exists DIABETES-EYE EXAM 01/31/2024 01/30/2023, , 01/25/2021, Additional history exists CKD HGB USE SMARTSET 61384 04/16/202404/16, 04/16/2023, 04/10/2023, Additional history exists DTaP,Tdap,and Td Vaccines (3 - Td or Tdap) 12/04/2026 12/04/2016, 12/03/2006, 12/15/1996, Additional history exists Pneumococcal Vaccine: 65+ Years Completed 10/02/2014, 09/01/2011, 07/07/2006 Zoster Vaccines Completed 01/05/2020, 08/05, 10/02/2014 VITAMIN D LEVEL ONCE IN A LIFETIME-USE SMARTSET# 07642 Completed 05/27/2021, 09/07/2019, 01/10/2019, Additional history exists [...] filedocumented as of this encounter Care Teams Stock Replenisher Relationship Specialty Start Date End Date Rhianna Huitron, DO [address] [place] [address] PCP - General Family Medicine 07/11/19 documented as of this encounter
--- OUTSIDE RECORDS SUMMARY | 2023-09-01 04:48 | External Medical Summary | Summary of Care ---
Author Name Unknown Organization [facility] Address [address] [facility] [address] Phone [phone] Care Team Providers Care Quarter Seamer Name Role Phone Rhianna Huitron DO Primary Care Provider [phone] Reason for Visit * Reason Onset Date Comments Precert Future 04/14/2023 zytiga Encounter Details Date Type Department Care Team Description 04/14/2023 Telephone Hematology/Oncology Treatment, [place] [address] [place] [address] Patrice Puente MD [address] [place] [address] Precert Future (zytiga) Allergies Active Allergy Reactions Severity Noted Date Comments Brent Inhibitors Cough Low 11/26/2017 Alendronate Sodium Muscle pain 04/11/2019 Heartburn, constipation, joint pain Misoprostol Diarrhea 08/08/2003 Niacin Er 11/26/2010 Gas, hot flashes Pollen 01/01/2018 Watery eyes, sneezing Pravastatin 02/26/2007 Upset stomach, all .Statins Simvastatin 02/26/2007 Upset stomach documented as of this encounter (statuses as of 04/21/2023) Medications Medication Sig Dispensed Refills Start Date [...] as of this encounter (statuses as of 04/21/2023) Active Problems Problem Noted Date Prostate cancer [...] glucose 12/16/2005 Macular degeneration 12/02/1999 DISC DIS [id number] documented as of this encounter (statuses as of 04/21/2023) Resolved Problems Problem Noted Date Resolved Date Prediabetes 11/08/2018 04/17/2022 Overview: Per Prediabetes protocol #1 Morbid (severe) obesity due to excess calories 0 08/19/2017 03/09/2019 Infective otitis externa 09/08/2012 013 Cough 07/03/2012 08/18/2012 Benign neoplasm of colon 05/10/2007 019 Overview: adenomatous repeat colonoscopy in 5 years ARTHRITIS,RHEUMATOID 07/07/2006 05/12/2016 [id number] 07/07/2006 11/17/19 10 Overview: Renamed Per Clinical Trials Billing Project. Pt is a participant in the [facility] (Consortium of Rheumatology Researchers [place]) national data collection study. For further information please call Dr Hari Clark or Julia White, RN, CCRC at [phone] [facility] RESEARCH OTHER*[id number] 07/07/2006 01/28/2010 Overview: Renamed Per Clinical Trials Billing Project. Pt is a participant in the [facility] (Consortium of Rheumatology [place] national data collection study. For further information please call Dr Hari Clark or Julia White, RN, CCRC at [phone] Hearing loss 12/02/1999 03/29/2013 documented as of this encounter (statuses as of 04/21/2023) Immunizations Name Administration Dates Next Due COVID-19 mRNA, LNP-s, No Pre serve, 2-Dose Series ([employer]) 06/14/2021,10/10/2020,09/12/2020 COVID-19, LNP-s, No Preserve , Yousuf-sucrose, [...] Miscellaneous Notes * Telephone Encounter - KARLOS Sierra - 04/21/2023 11:11 AM EDT Added lab appts as per nursing and scheduled appt for 06/04/23. Mailed all info to patient. * Addendum Note - Diamond Hamilton RN - 04/21/2023 10:09 AM EDTAddended by: DIAMOND RIZO on: 04/21/2023 10:09 AM Modules accepted: Orders * Telephone Encounter - Diamond Hamilton RN - 04/21/2023 7:54 AM EDT Per [facility] note, zytiga is being shipped 04/22/23. Called and spoke to patient, he confirmed that he also picked up prednisone. Plans to start both zytiga and prednisone on Thursday04/27/23. Reviewed administration- patient plans to take zytiga on a empty stomach first thing in the morning, wait 1 hour, then have breakfast and the rest of his AM medic ations/ prednisone. Reviewed with patient that he will need lab work q2 weeks x3 months after starting zytiga. He notesthat he is starting radiation next , will be at 9:50am, would like to be scheduled at [facility] after radiation. Advised him that we will schedule the first few lab appointments for him starting 05/11. He verbalized understanding. Scheduling: - please add lab appts at [facility] on 05/11, 05/25, 06/08, 06/22 "CBCd, CMP" around 10:30am - please schedule follow up with Dr Puente in 1-2 months MTM: FILOMENA on start date 04/27/23. Thanks! * Telephone Encounter - Enedina Ordoñez RPh - 04/16/2023 1:02 PM EDT Rx sent to [facility]. MTM to follow up in 3 days for medication education * Telephone Encounter - Diamond Hamilton RN - 04/16/2023 12:49 PM EDT MTM: please release treatment plan- approved to go to [facility]. Thanks! * Telephone Encounter - Diamond Hamilton RN - 04/14/2023 11:07 AM EDT Order received for zytiga/ prednisone. MTM already built beacon plan. Consent signed 04/10/23. Referral entered- can be filled at [facility]. Called patient to make him aware. Hep B labs 04/10/23. Patient is coming for nurse education 04/16/23- will need to repeat CBCd documented in this encounter Plan of Treatment Upcoming Encounters Date Type Specialty Care Team Description 04/21/2023 Pharmacy Pharmacy [facility] [place] [address] [facility] [address] 05/11/2023 Laboratory Laboratory [place], Laboratory [address] [place], [place] [id number] 05/19/2023 Office Visit Urology Vinay Sexton MD [address] [address] [place] [address] 05/25/2023 Laboratory Laboratory [place], Laboratory [address] [place] [address] 05/29/2023 Office Visit Family Medicine Rhianna Huitron DO [address] [place] [address] 06/04/2023 Office Visit Hematology Oncology Patrice Puente MD [address] [place], [place] [phone] 06/08/2023 Laboratory Laboratory [facility] [address] [place] [address] 06/22/2023 Laboratory Laboratory [facility] [address] [place] [address] 08/14/2023 Nurse Only Urology [place], Nurse Urology [place] [address] [place] [address] 09/10/2023 Office Visit Rheumatology Mendel Wilson MD [address] [facility] [place] [address] Scheduled Orders Name Type Priority Associated Diagnoses Orde r Schedule CBC WITH WBC DIFFERENTIAL Lab STAT Prostate cancer (HCC) Anemia, unspecified type Every 2 Weeks for 26 Occurrences starting 04/21/2023 until 04/21/2024 Scheduled Procedures Name Priority Associated Diagnoses Date/Ti me COLONOSCOPY FLEXIBLE PROXIMAL DIAGNOSTIC Recall Hx of colonic polyps Health Maintenance Due Date Last Done Comments CKD PHOS USE SMARTSET 53292 02/23/1963 DXA Scan 01/10/2021 01/10/2019, 12/0 12/2005, 07/07/2006 Depression Screening 03/13/2021 03/13/2020 Influenza [...] Additional history exists CKD HGB USE SMARTSET 29555 04/21/202404/21, 04/21/2023, 04/16/2023, Additional history exists DTaP,Tdap,and Td Vaccines (3 - Td or Tdap) 12/04/2026 12/04/2016, 12/03/2006, 12/15/1996, Additional history exists Pneumococcal Vaccine: 65+ Years Completed 10/02/2014, 09/01/2011, 07/07/2006 Zoster Vaccines Completed 01/05/2020, 08/05, 10/02/2014 VITAMIN D LEVEL ONCE IN A LIFETIME-USE SMARTSET# 30658 Completed 05/27/2021, 09/07/2019, 01/10/2019, Additional history exists [...] cancer (HCC)- Primary Malignant neoplasm of prostate Anemia, unspecified type documented in this encounter Care Teams Quarter Seamer Relationship Specialty Start Date End Date Rhianna Huitron, [address] [place] [address] PCP - General Family Medicine 07/11/19 documented as of this encounter
--- OUTSIDE RECORDS SUMMARY | 2023-09-01 04:48 | External Medical Summary ---
Author Name Unknown Address Unknown Organization K09:[facility] [place] [place] [address] Laboratory Report Ordering Provider Test Date Status JOHNATHON CASILLAS 04/21/2023 10:03:55 Final Observation Date Value Abnormality Reference (Units ) Status SYNC LEUKOCYTES IN BLOOD BY AUTOMATED COUNT 04/21/2023 10:03:55 9.69 4.00-10.80 (K/uL) Final Segs 04/21/2023 10:03:55 76.0 Above high normal 40.0-75.0 (%) Final Lymphs % 04/21/2023 10:03:55 14.7 Below low normal 18.0-42.0 (%) Final Monos 04/21/2023 10:03:55 6.7 1.0-11.0 (%) Final Eosinophils 04/21/2023 10:03:55 2.2 0.0-6.0 (%) Final Basos 04/21/2023 10:03:55 0.4 0.0-2.0 (%) Final Absolute Segs 04/21/2023 10:03:55 7.37 1.80-7.70 (K/uL) Final Lymphs, absolute 04/21/2023 10:03:55 1.42 1.00-4.80 (K/ul) Final Monos, Abs 04/21/2023 10:03:55 0.65 0.00-1.10 (K/uL) Final Eos, Abs 04/21/2023 10:03:55 0.21 0.00-0.70 (K/uL) Final Basos, Abs 04/21/2023 10:03:55 0.04 0.00-0.20 (K/uL) Final Performing Location [facility] [place] [address]
--- OUTSIDE RECORDS SUMMARY | 2023-09-01 04:48 | External Medical Summary | Summary of Care ---
Author Name Unknown Organization [facility] Address [address] [facility] [address] Phone [phone] Care Team Providers Care Community Director Name Role Phone Rhianna Huitron DO Primary Care Provider [phone] Reason for Visit * Reason Onset Date Comments Precert Future 04/14/2023 zytiga Encounter Details Date Type Department Care Team Description 04/14/2023 Telephone Hematology/Oncology Treatment, [place] [address] [place] [address] Patrice Puente MD [address] [place] [address] Precert Future (zytiga) Allergies Active Allergy Reactions [...] glucose 12/16/2005 Macular degeneration 12/02/1999 DISC DIS [id number] documented as of this encounter (statuses as of 04/21/2023) Resolved Problems Problem Noted Date Resolved Date Prediabetes 11/08/2018 04/17/2022 Overview: Per Prediabetes protocol #1 Morbid (severe) obesity due to excess calories 0 08/19/2017 03/09/2019 Infective otitis externa 09/08/2012 013 Cough 07/03/2012 08/18/2012 Benign neoplasm of colon 05/10/2007 019 Overview: adenomatous repeat colonoscopy in 5 years ARTHRITIS,RHEUMATOID 07/07/2006 05/12/2016 [id number] 07/07/2006 11/17/19 10 Overview: Renamed Per Clinical Trials Billing Project. Pt is a participant in the [facility] (Consortium of Rhe[place]ology [place] national data collection study. For further information please call Dr Hari Clark or Julia White, RN, CCRC at [phone] [facility] RESEARCH OTHER*[id number] 07/07/2006 01/28/2010 Overview: Renamed Per Clinical Trials Billing Project. Pt is a participant in the [facility] (Consortium of [place]ology [place] national data collection study. For further information please call Dr Hari Clark or Julia White, RN, CCRC at [phone] Hearing loss 12/02/1999 03/29/2013 documented as of this encounter (statuses as of 04/21/2023) Immunizations Name Administration Dates Next Due COVID-19 mRNA, LNP-s, No Pre serve, 2-Dose Series ([employer]) 06/14/2021,10/10/2020,09/12/2020 COVID-19, LNP-s, No Preserve , Yousuf-sucrose, [...] Miscellaneous Notes * Telephone Encounter - Alissa Hamilton RN - 04/21/2023 7:54 AM EDT Per [facility] note, zytiga is being shipped 04/22/23. * Telephone Encounter - Enedina Ordoñez RPh - 04/16/2023 1:02 PM EDT Rx sent to [facility]. MTM to follow up in 3 days for medication education * Telephone Encounter - Alissa Hamilton RN - 04/16/2023 12:49 PM EDT MTM: please release treatment plan- approved to go to [facility]. Thanks! * Telephone Encounter - Alissa Hamilton RN - 04/14/2023 11:07 AM EDT Order received for zytiga/ prednisone. MTM already built beacon plan. Consent signed 04/10/23. Referral entered- can be filled at [facility]. Called patient to make him aware. Hep B labs 04/10/23. Patient is coming for nurse education 04/16/23- will need to repeat CBCd documented in this encounter Plan of Treatment Upcoming Encounters Date Type Specialty Care Team Description 04/21/2023 Pharm[place] [facility] [place] [facility] [address] [place] [address] 05/19/2023 Office Visit Urology Vinay Sexton MD [address] [place] [address] [place] [address] 05/29/2023 Office Visit Family Medicine Rhianna Huitron, [address] [place] [address] 08/14/2023 Nurse Only Urology [place], U[facility] [place] [address] [place] [address] 09/10/2023 Office Visit Rheumat[facility]el [facility] [address] [facility] [address] Scheduled Procedures Name Priority Associated Diagnoses Date/Ti me COLONOSCOPY FLEXIBLE PROXIMAL DIAGNOSTIC Recall Hx of colonic polyps Health Maintenance Due Date Last Done Comments CKD PHOS USE SMARTSET 74569 02/23/1963 DXA Scan 01/10/2021 01/10/2019, 12/2005, 07/07/2006 [...] Additional history exists CKD HGB USE SMARTSET 18817 04/16/202404/16, 04/16/2023, 04/10/2023, Additional history exists DTaP,Tdap,and Td Vaccines (3 - Td or Tdap) 12/04/2026 12/04/2016, 12/03/2006, 12/15/1996, Additional history exists Pneumococcal Vaccine: 65+ Years Completed 10/02/2014, 09/01/2011, 07/07/2006 Zoster Vaccines Completed 01/05/2020, 08/05, 10/02/2014 VITAMIN D LEVEL ONCE IN A LIFETIME-USE SMARTSET# 60178 Completed 05/27/2021, 09/07/2019, 01/10/2019, Additional history exists [...] filedocumented as of this encounter Care Teams Community Director Relationship Specialty Start Date End Date Rhianna Huitron, [address] [place] [address] PCP - General Family Medicine 07/11/19 documented as of this encounter
--- OUTSIDE RECORDS SUMMARY | 2023-09-01 04:48 | External Medical Summary | Summary of Care ---
Author Name Unknown Organization [facility] Address [address] [place] [address] Phone [phone] Care Team Providers Care Concrete Mixing Truck Driver Name Role Phone Elana Rhianna Keturah DOMINGUEZ Primary Care Provider [phone] Encounter Details Date Type Department Care Team Description 04/20/2023 Specialty Pharmacy [facility], [address] 4th Floor [place] [address] Medication, [facility], [address] [place] [address] Allergies Active Allergy Reactions Severity Noted Date [...] 04/01/2023 Active predniSONE 5 MG Oral Tablet (Deltasone)Indicati ons:Prostate cancer (HCC) Take 1 Tablet by mouth in the morning. 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 Pt is a participant in the [employer] (Consortium of Rheumatology Researchers [place]) national data collection study. For further information please call Dr Hari Clark or Julia White, RN, CCRC at [phone] [facility] OTHER*[id number] 07/07/2006 01/28/2010 Overview: Renamed Per Clinical Trials Billing Project. Pt is a participant in the [employer] (Consortium of Rheumatology Researchers [place]) national data collection study. For further information please call Dr Hari Clark or Julia White, RN, CCRC at [phone] Hearing loss 12/02/1999 03/29/2013 documented as of this encounter (statuses as of 04/20/2023) Immunizations Name Administration Dates Next Due COVID-19 mRNA, LNP-s, No Pre serve, 2-Dose Series (Krux) 06/14/2021,10/10/2020,09/12/2020 COVID-19, LNP-s, No Preserve , Yousuf-sucrose, [...] as of this encounter Progress Notes * Casi Fischer, [facility] - 04/20/2023 2:26 PM EDT Results for orders placed or performed in visit on 04/10/23 COMPREHENSIVE METABOLIC PANEL Result Value Ref Range BUN 28 (H) 6 - 20 mg/dL Creatinine 1.9 (H) 0.6 - 1.2 mg/dL Estimated Glomerular Filtration Rate 37 (L) >=60 mL/min Sodium 135 135 - 146 mmol/L Potassium 3.2 (L) 3.5 - 5.1 mmol/L Chloride 96 (L) 98 - 107 mmol/L CO2 23 22 - 32 mmol/L Anion Gap 16 (H) 7 - 15 mmol/L Glucose 120 70 - 120 mg/dL Albumin 3.8 3.8 - 5.0 g/dL AST 14 10 - 50 U/L Alkaline Phosphatase 87 35 - 130 U/L Bilirubin, Total 0.3 <=1.2 mg/dL Calcium 9.3 8.4 - 10.2 mg/dL Protein 7.1 6.0 - 8.3 g/dL ALT 9 (L) 10 - 50 U/L Results for orders placed or performed in visit on 04/16/23 DIFFERENTIAL, AUTOMATED Result Value Ref Range WBC 8.73 4.00 - 10.80 K/uL Neutrophils % 69.8 40.0 - 75.0 % Lymphocytes % 18.9 18.0 - 42.0 % Monocytes % 8.2 1.0 - 11.0 % Eosinophils % 2.4 0.0 - 6.0 % Basophils % 0.7 0.0 - 2.0 % Absolute Neutrophils 6.09 1.80 - 7.70 K/uL Absolute Lymphocytes 1.65 1.00 - 4.80 K/ul Absolute Monocytes 0.72 0.00 - 1.10 K/uL Absolute Eosinophils 0.21 0.00 - 0.70 K/uL Absolute Basophils 0.06 0.00 - 0.20 K/uL CBC Result Value Ref Range WBC 8.73 4.00 - 10.80 K/uL RBC 2.73 4.50 - 5.25 M/uL HGB 8.1 (L) 14.0 - 16.8 g/dL HCT 26.5 (L) 40.0 - 48.4 % MCV 97.1 82.0 - 99.5 fL MCH 29.7 27.0 - 34.0 pg MCHC 30.6 32.0 - 36.0 g/dL RDW 16.6 11.5 - 15.5 % PLT 307 140 - 400 K/uL MPV 9.4 6.6 - 11.1 fL Results for orders placed or performed in visit on 11/12/20 CBC WITH WBC DIFFERENTIAL Result Value Ref Range HEMOGLOBIN-OUTSIDE LAB 14.4 13.2 - 17.1 G/DL Prescribed medication: Medication: abiraterone Shipment date: 04/22 Delivery method: Specialty Mail Location Medication Delivered too? Home Address: [address] [place] [address] dr Casi Fischer [facility] 04/20/2023,2:26 PM Casi Fischer RP, PharmD Specialty Medication Pharmacist [facility] 04/20/2023,2:26 PM documented in this encounter Plan of Treatment Upcoming Encounters Date Type Specialty Care Team Description 04/21/2023 Pharmacy Pharmacy [facility] [address] [place] [address] 05/19/2023 Office Visit Urology Vinay Sexton MD [address] [facility] [address] [place] [address] 05/29/2023 Office Visit Family Medicine Rhianna Huitron, DO [address] [place] [address] 08/14/2023 Nurse Only Urology Garrett, Nurse Urology [place] [address] [place] [address] 09/10/2023 Office Visit Rheumatology Mendel Wilson MD [address] [place] [address] Scheduled Procedures Name Priority Associated Diagnoses Date/Ti me COLONOSCOPY FLEXIBLE PROXIMAL DIAGNOSTIC Recall Hx of colonic polyps Health Maintenance Due Date Last Done Comments CKD PHOS USE SMARTSET 12161 02/23/1963 DXA Scan 01/10/2021 01/10/2019, 12/2005, 07/07/2006 [...] Additional history exists CKD HGB USE SMARTSET 98994 04/16/202404/16, 04/16/2023, 04/10/2023, Additional history exists DTaP,Tdap,and Td Vaccines (3 - Td or Tdap) 12/04/2026 12/04/2016, 12/03/2006, 12/15/1996, Additional history exists Pneumococcal Vaccine: 65+ Years Completed 10/02/2014, 09/01/2011, 07/07/2006 Zoster Vaccines Completed 01/05/2020, 08/05, 10/02/2014 VITAMIN D LEVEL ONCE IN A LIFETIME-USE SMARTSET# [id number] Completed 05/27/2021, 09/07/2019, 01/10/2019, Additional history exists [...] filedocumented as of this encounter Care Teams Concrete Mixing Truck Driver Relationship Specialty Start Date End Date Rhianna Huitron, [address] [place] [address] PCP - General Family Medicine 07/11/19 documented as of this encounter
--- OUTSIDE RECORDS SUMMARY | 2023-09-01 04:48 | External Medical Summary ---
Author Name Unknown Address Unknown Organization K09:[facility] [place] [address] Laboratory Report Ordering Provider Test Date Status JOHNATHON CASILLAS 04/21/2023 10:03:55 Final Observation Date Value Abnormality Reference (Units ) Status WBC, Total 04/21/2023 10:03:55 9.69 4.00-10.8 0 (K/uL) Final RBC 04/21/2023 10:03:55 3.17 4.50-5.25 (M/uL) Final Hemoglobin 04/21/2023 10:03:55 9.5 Below low normal 14 .0-16.8 (g/dL) Final HCT 04/21/2023 10:03:55 31.1 Below low normal 40. 0-48.4 (%) Final MCV 04/21/2023 10:03:55 98.1 82.0-99.5 (fL) Final MCH 04/21/2023 10:03:55 30.0 27.0-34.0 (pg) Final MCHC 04/21/2023 10:03:55 30.5 32.0-36.0 (g/dL) Final RDW 04/21/2023 10:03:55 16.3 11.5-15.5 (%) Final Platelets 04/21/2023 10:03:55 318 140-400 (K /uL) Final MPV 04/21/2023 10:03:55 9.3 6.6-11.1 ( fL) Final Performing Location [facility] [address]
--- OUTSIDE RECORDS SUMMARY | 2023-09-01 04:48 | External Medical Summary | Summary of Care ---
Author Name Unknown Organization [facility] Address [address] [place] [address] Phone [phone] Care Team Providers Care Maxillofacial Surgeon Name Role Phone Rhianna Huitron DO Primary Care Provider Reason for Visit * Reason Comments Medication Management Encounter Details Date Type Department Care Team Description 04/23/2023 Pharmacy Pharmacy Hematology Oncology [facility] [address] [place] [address] [facility] Hem/Onc [address] [place], [place] [id number] Prostate cancer (HCC)* Allergies Active Allergy Reactions Severity Noted Date Comments Brent Inhibitors Cough Low 11/26/2017 Alendronate Sodium Muscle pain 04/11/2019 Heartburn, constipation, joint pain Misoprostol Diarrhea 08/08/2003 Niacin Er 11/26/2010 Gas, hot flashes Pollen 01/01/2018 Watery eyes, sneezing Pravastatin 02/26/2007 Upset stomach, all .Statins Simvastatin 02/26/2007 Upset stomach documented as of this encounter (statuses as of 04/23/2023) Medications Medication Sig Dispensed Refills Start Date [...] as of this encounter (statuses as of 04/23/2023) Active Problems Problem Noted Date Prostate cancer [...] glucose 12/16/2005 Macular degeneration 12/02/1999 DISC DIS [id number] documented as of this encounter (statuses as of 04/23/2023) Resolved Problems Problem Noted Date Resolved Date Prediabetes 11/08/2018 04/17/2022 Overview: Per Prediabetes protocol #1 Morbid (severe) obesity due to excess calories 0 08/19/2017 03/09/2019 Infective otitis externa 09/08/2012 013 Cough 07/03/2012 08/18/2012 Benign neoplasm of colon 05/10/2007 019 Overview: adenomatous repeat colonoscopy in 5 years ARTHRITIS,RHEUMATOID 07/07/2006 05/12/2016 [id number] 07/07/2006 11/17/19 10 Overview: Renamed Per Clinical Trials Billing Project. Pt is a participant in the [employer] (Consortium of Rheumatology Researchers [place]) national data collection study. For further information please call Dr Hrai Clark or Julia White, RN, CCRC at [phone] [facility] RESEARCH OTHER*[id number] 07/07/2006 01/28/2010 Overview: Renamed Per Clinical Trials Billing Project. Pt is a participant in the [employer] (Consortium of Rheumatology Researchers [place] national data collection study. For further information please call Dr Hari Clark or Julia White, RN, CCRC at [phone] Hearing loss 12/02/1999 03/29/2013 documented as of this encounter (statuses as of 04/23/2023) Immunizations Name Administration Dates Next Due COVID-19 mRNA, LNP-s, No Pre serve, 2-Dose Series (Highfive) 06/14/2021,10/10/2020,09/12/2020 COVID-19, LNP-s, No Preserve , Yousuf-sucrose, [...] as of this encounter Progress Notes * Ani Recinos CPhT - 04/23/2023 2:05 PM EDT NEW REFERRAL TO ORAL CHEMO CLINIC/MEDICATION RECONCILIATION NOTE [place] [id number] Patient Phone Numbers Communication: Spoke to: Patient OCC madonna will be sent MyG Treatment: Medication: Abiraterone (Zytiga) Indication/Staging/Diagnosis Code: prostate cancer/ C61 Dose: 1000mg daily Administration: empty stomach (1 hour before or 2 hours after a meal) Start Date: TBD (after RT completion) Primary Clinical Provider Trainer/Oncologist: Dr. Leon Puente Provider has consented patient: Yes Patient was introduced to Oral Chemotherapy Clinic: OCC is a free service for patients receiving oral chemo therapy. We are Pharmacists & Pharmacy Technicians, who are a part of hematology & oncology care across the [facility] system offering telephone based appointments from the comfort of your own home. Pharmacists are available Thursday-Thursday from 8am - 4pm. After 4pm, non-urgent messages can be left on the pharmacist voicemail, and urgent calls/questions/concerns should be directed totheir oncologist office directly (number provided). In case of an emergency, patient is aware to call 911 or travel to nearest emergency department. Communicated to patient: Pharmacists will provide education about your medication, manage oral chemotherapy side effects & review labs. All information will be shared & available to your oncologist. Explained to patient: once they decide on a treatment with their Oncologist, a Pharmacist will review the treatment plan to ensure correct dosing, review labs & medications to prevent any interactions. Medication authorization is submitted to your insurance. Once approved, your Rx will be sent to the Pharmacy determined by your insurance plan. Specialty Pharmacy will contact you to arrange delivery & discuss co-payment and any assistance options, if required. A Pharmacist will contact you to provide medication education, follow up periodically to review lab results & to assess/manage side effects. Patient was reassured the process to obtain medication can take several days-weeks. Patient was informed that hepatitis B screening must be completed prior to initiation of treatment.- completed Patient has given verbal consent that staff from the Oral Chemotherapy Clinic can speak to Patient and son Adalberto regarding their treatment Patient has given verbal consent that staff from the Oral Chemotherapy Clinic can leave a voicemailwith treatment-related information: Yes This information can be left on Cell Performed medication reconciliation with patient; pharmacist will be in touch if there are any druginteractions with oral chemo. Patient voiced understanding on all accounts. He had no questions or concerns today. Ani Recinos Entry Level Account Executive II [facility] Oral Chemotherapy Clinic 04/23/2023 2:27 PM Time Spent on Encounter: 6 - 10 minutes * Enedina Ordoñez [facility] - 04/23/2023 2:02 PM EDT MEDICATION THERAPY MANAGEMENT ABIRATERONE TREATMENT EDUCATION NOTE Markus [place] [phone] Patient Phone Numbers Preferred Lab: [facility]: P ([facility] copy below into specialty comments) Treatment consent complete: yes Date: 04/14/23 Precertification complete: yes Date: 04/14/23 Communication: Spoke to: Patient Treatment: Medication: Abiraterone (Zytiga) Indication/Staging/Diagnosis Code: prostate cancer/ C61 Dose: 1000mg daily Administration: empty stomach (1 hour before or 2 hours after a meal) Start Date: 04/27/23 Primary Clinical Provider Trainer/Oncologist: Dr. Leon Puente Additional Therapy: Prednisone 5mg daily Lupron Supportive Care Meds: None Prophylactic Meds: Losartain 12.5mg daily HCTZ 12.5mg daily Treatment History: 04/08/23-present: Lupron Medication education: Confirmed pt has received information regarding goals and duration of therapy: yes Reviewed dosing and administration: yes Reviewed importance of medication compliance (document recommendations if barriers identified): yes Reviewed appropriate storage conditions: yes Reviewed handling precautions: yes Reviewed handling body fluids and waste: yes Reviewed side effects, monitoring, and supportive care measures: yes Edema/fluid retention This medication may cause swelling and fluid accumulation. This occurs most frequently in the legs,but can also occur in the lungs. Avoid standing for long periods of time Advised to elevate legs above chest level when laying down Use of compression stockings When to call clinic: If symptoms persist, > 5 lb weight gain in one week, SOB develops. A medication called a diuretic may be prescribed to manage this side effect. HTN This medication can increase your blood pressure You can monitor your blood pressure at home 2-3 times per week (daily if uncontrolled HTN) Home monitoring blood pressure devices can be purchased through your local pharmacy. Take your blood pressure at the same time of the day, preferably prior to intake of any caffeine, nicotine, or stimulants Keep a log of your BP readings to share with your oncologist and oncology pharmacist If BP > 140/90, try to relax for 5 - 10 min and repeat your blood pressure. If BP remains > 140/90, call clinic Joint swelling or discomfort/Arthralgias/Myalgias This medication may cause or worsen muscle aches or joint pains [If platelets are low, or drug is known to cause thrombocytopenia] Avoid taking NSAIDS (ibuprofen and naproxen) as these medications can lower your platelet count and increase your risk of bleeding (unless your provider has told you otherwise) You can use localized pain relievers like Bengay or Icy hot Heating pads or ice packs may also help with discomfort OTC tylenol can be used to manage aches and pains. Follow the instructions on the package When to call clinic: If pain is not relieved by the above supportive measures, or if the pain is affecting your quality of life or ability to complete ADLs Diarrhea This medication can cause loose stools You can purchase OTC loperamide (Imodium A-D) to help manage this side effect (4 mg x 1, followed by 2 mg Q4H or after every loose stool, not to exceed 16 mg/day) Drink plenty of fluids to prevent dehydration, ideally 8-10 glasses per day (unless a healthcare provider has instructed you to limit your fluid intake due to other health conditions) Dietary modifications: eat bland, low fiber foods such as bananas, rice, applesauce, and toast (BRAT diet), avoid dairy, avoid spicy, greasy or fatty foods When to call clinic: If approaching maximum dose of loperamide and still having diarrhea or if you have any s/sx of dehydration; if there is a concern for infectious diarrhea (especially in setting of neutropenia) Constipation This medication may cause constipation Increase your water intake and fiber in your diet by eating fresh fruits and vegetables A daily stool softener, such as docusate (Colace), and/or a laxative, such as senna (Senokot) or polyethylene glycol (Miralax), may be helpful. When to call clinic: If these do not help within 48 hours or you develop abdominal pain, vomiting Hepatotoxicity This medication may affect your liver function Review plan for lab monitoring (drug-specific) Monitor and report symptoms such as: Stomach pain Dark-colored urine Yellowing of skin and/or eyes Confirmed pt has received written information about drug therapy: yes Changes to medication list since last visit: no Drug interaction assessment: Treatment plan and current medication list evaluated for drug-drug interactions. No clinically significant drug interaction identified Does patient rely on caregiver for medication management? no Assessment and plan: Pt verbalized understanding to information provided. All questions answered to the patient's satisfaction Pt was educated about role of Oral Chemotherapy Clinic and pharmacist in medication management, andplan for follow up. Per TE 04/14/23 addendum 04/21/23, pt to start abiraterone 04/27/23 MTM to follow up in one week to confirm start date and tolerability Follow up: 1 week Enedina Ordoñez, PharmD, BCOP Clinical Pharmacist, [facility] Oral Chemotherapy [facility] 04/23/2023, 2:37 PM Monitoring Parameters: Estimated CrCl Serum creatinine: [...] Interventions Item Category: Oral Chemotherapy Abiraterone Problem/Rationale: Indication: Needs additional medication therapy - Untreated condition Education: Initial education Pharmacist Intervention(s): Education provided Magnitude of Intervention: Monitoring with direction (Level 1) documented in this encounter Plan of Treatment Upcoming Encounters Date Type Specialty Care Team Description 05/11/2023 Laboratory Laboratory [facility] [address] [place] [address] 05/19/2023 Office Visit Urology Vinay Sexton MD [address] [facility] [address] [place] [address] 05/25/2023 Laboratory Laboratory [facility] [address] [place] [address] 05/29/2023 Office Visit Family Medicine Rhianna Huitron DO [address] [place] [address] 06/04/2023 Office Visit Hematology Oncology Patrice Puente MD [address] [place] [address] 06/08/2023 Laboratory Laboratory [facility] [address] [place] [address] 06/22/2023 Laboratory [facility] [address] [place] [address] 08/14/2023 Nurse Only Urology Garrett, Nurse Urology [place] [address] [facility] [place] [address] 09/10/2023 Office Visit Rheumatology Mendel Wilson MD [address] [facility] [place] [address] Scheduled Procedures Name Priority Associated Diagnoses Date/Ti me COLONOSCOPY FLEXIBLE PROXIMAL DIAGNOSTIC Recall Hx of colonic polyps Health Maintenance Due Date Last Done Comments CKD PHOS USE SMARTSET 51436 02/23/1963 DXA Scan 01/10/2021 01/10/2019, 12/2005, 07/07/2006 [...] Additional history exists CKD HGB USE SMARTSET 99866 04/21/202404/21, 04/21/2023, 04/16/2023, Additional history exists DTaP,Tdap,and Td Vaccines (3 - Td or Tdap) 12/04/2026 12/04/2016, 12/03/2006, 12/15/1996, Additional history exists Pneumococcal Vaccine: 65+ Years Completed 10/02/2014, 09/01/2011, 07/07/2006 Zoster Vaccines Completed 01/05/2020, 08/05, 10/02/2014 VITAMIN D LEVEL ONCE IN A LIFETIME-USE SMARTSET# [id number] Completed 05/27/2021, 09/07/2019, 01/10/2019, Additional history exists [...] prostate documented in this encounter Care Teams Maxillofacial Surgeon Relationship Specialty Start Date End Date Rhianna Huitron, [address] [place] [address] PCP - General Family Medicine 07/11/19 documented as of this encounter
--- OUTSIDE RECORDS SUMMARY | 2023-09-01 04:48 | External Medical Summary ---
Author Name Unknown Address Unknown Organization : Laboratory Report Ordering Provider Test Date Status JOHNATHON CASILLAS 04/21/2023 10:03:55 Final Observation Date Value Abnormality Reference (Units ) Status ERYTHROPOIETIN (EPO) 04/21/2023 10:03:55 29.7 Above high normal 2.6-18.5 (mIU/mL) Final
Test Performed at:
[facility]
[address] [facility]
[place] [address]
Al Darby M.D., Ph.D.,Director of Laboratories Performing Location
--- OUTSIDE RECORDS SUMMARY | 2023-09-01 04:48 | External Medical Summary | Summary of Care ---
Author Name Unknown Organization [facility] Address [address] [place] [facility] [place] [address] Phone [phone] Care Team Providers Care Salvationist Name Role Phone Rhianna Huitron DO Primary Care Provider Reason for Visit * Reason Comments Outpatient Testing Encounter Details Date Type Department Care Team Description 04/21/2023 Laboratory [facility] [place] [address] [place] [id number] [place] [address] [place] [address] Prostate cancer (HCC) Allergies Active Allergy Reactions Severity Noted Date [...] glucose 12/16/2005 Macular degeneration 12/02/1999 DISC DIS [id number] documented as of this encounter (statuses as of 04/21/2023) Resolved Problems Problem Noted Date Resolved Date Prediabetes 11/08/2018 04/17/2022 Overview: Per Prediabetes protocol #1 Morbid (severe) obesity due to excess calories 0 08/19/2017 03/09/2019 Infective otitis externa 09/08/2012 013 Cough 07/03/2012 08/18/2012 Benign neoplasm of colon 05/10/2007 019 Overview: adenomatous repeat colonoscopy in 5 years ARTHRITIS,RHEUMATOID 07/07/2006 05/12/2016 [id number] 07/07/2006 11/17/19 10 Overview: Renamed Per Clinical Trials Billing Project. Pt is a participant in the [employer] ([employer]ortium of [employer] [place]) national data collection study. For further information please call Dr Hari Clark or Julia White, RN, CCRC at [phone] [facility] RESEARCH OTHER*[id number] 07/07/2006 01/28/2010 Overview: Renamed Per Clinical Trials Billing Project. Pt is a participant in the [employer] ([employer]ortium of [employer] [place]) national data collection study. For further information please call Dr Hari Clark or Julia White, RN, CCRC at [phone] Hearing loss 12/02/1999 03/29/2013 documented as of this encounter (statuses as of 04/21/2023) Immunizations Name Administration Dates Next Due COVID-19 mRNA, LNP-s, No Pre serve, 2-Dose Series (Create) 06/14/2021,10/10/2020,09/12/2020 COVID-19, LNP-s, No Preserve , Yousuf-sucrose, [...] Specialty Care Team Description 04/21/2023 Pharmacy [facility] [address] [place] [address] 05/19/2023 Office Visit Urology Vinay Sexton MD [address] [place] [address] [place] [address] 05/29/2023 Office Visit Family Medicine Rhianna Huitron, DO [address] [place] [address] 08/14/2023 Nurse Only Urology [place], Nurse Urology [place] [address] [place] [address] 09/10/2023 Office Visit Rheumatology Mendel Wilson MD [address] [place] [address] Pending Results Name Type Priority Associated Diagnoses Date /Time ERYTHROPOIETIN (EPO) Lab STAT Prostate cancer (HCC) 04/21/2023 10:03 AM EDT COMPREHENSIVE METABOLIC PANEL Lab STAT Prostate cancer (HCC) 04/21/2023 10:03 AM EDT Scheduled Procedures Name Priority Associated Diagnoses Date/Ti me COLONOSCOPY FLEXIBLE PROXIMAL DIAGNOSTIC Recall Hx of colonic polyps Health Maintenance Due Date Last Done Comments CKD PHOS USE SMARTSET 52455 02/23/1963 DXA Scan 01/10/2021 01/10/2019, 12/0 12/2005, 07/07/2006 Depression Screening 03/13/2021 03/13/2020 Influenza Vaccine (FLU shot) (#1) 2023 05/08/2022, 05/07/2021, 04/17/2020, Additional history exists Albumin/Creatinine Ratio 04/10/2023 04/10/2022, 050 10/2006 HbA1c 06/26/2023 12/24/2022, 11/01, 04/10/2022, Additional history exists GFR 10/09/2023 04/10/2023, 03/04, 12/24/2022, Additional history exists Diabetic Foot Exam 12/25/2023 12/24/2022 COLONOSCOPY-EVERY 5 YRS AGES 18-100 01/22/2024 01/21/2019, 01/21/2019, 05/10/2013, Additional history exists DIABETES-EYE EXAM 01/31/2024 01/30/2023, , 01/25/2021, Additional history exists CKD HGB USE SMARTSET 68353 04/21/202404/21, 04/21/2023, 04/16/2023, Additional history exists DTaP,Tdap,and Td Vaccines (3 - Td or Tdap) 12/04/2026 12/04/2016, 12/03/2006, 12/15/1996, Additional history exists Pneumococcal Vaccine: 65+ Years Completed 10/02/2014, 09/01/2011, 07/07/2006 Zoster Vaccines Completed 01/05/2020, 08/05, 10/02/2014 VITAMIN D LEVEL ONCE IN A LIFETIME-USE SMARTSET# [id number] Completed 05/27/2021, 09/07/2019, 01/10/2019, Additional history exists [...] Date/Time Associated Diagnosis Comments DIFFERENTIAL, AUTOMATED STAT 04/21/2023 10:03 AM EDT Prostate cancer (HCC) CBC WITH WBC DIFFERENTIAL STAT 04/21/2023 10:03 AM EDT Prostate cancer (HCC) CBC STAT 04/21/2023 10:03 AM EDT Prostate cancer (HCC) documented in this encounter Results * (ABNORMAL) DIFFERENTIAL, AUTOMATED (04/21/2023 10:03 AM EDT) WBC 9.69 4.00 - 10.80 K/uL 04/21/2023 10:10 AM EDT [facility] [place] [facility] Neutrophils % 76.0(H) 40.0 - 75.0 % 04/21/2023 10:10 AM EDT [facility] [place] [facility]02 Lymphocytes % 14.7(L) 18.0 - 42.0 % 04/21/2023 10:10 AM EDT [facility] [place] [facility]02 Monocytes % 6.7 1.0 - 11.0 % 04/21/2023 10:10 AM EDT [facility] [place] [facility]02 Eosinophils % 2.2 0.0 - 6.0 % 04/21/2023 10:10 AM EDT [facility] [place] [facility]02 Basophils % 0.4 0.0 - 2.0 % 04/21/2023 10:10 AM EDT [facility] [place] [facility]02 Absolute Neutrophils 7.37 1.80 - 7.70 K/uL 04/21/2023 10:10 AM EDT [facility] [place] [facility]02 Absolute Lymphocytes 1.42 1.00 - 4.80 K/ul 04/21/2023 10:10 AM EDT [facility] [place] [facility]02 Absolute Monocytes 0.65 0.00 - 1.10 K/uL 04/21/2023 10:10 AM EDT [facility] [place] [facility]02 Absolute Eosinophils 0.21 0.00 - 0.70 K/uL 04/21/2023 10:10 AM EDT [facility] [place] [facility]02 Absolute Basophils 0.04 0.00 - 0.20 K/uL 04/21/2023 10:10 AM EDT [facility]02 Blood Venous blood specimen / Unknown Venipuncture / Unknown 04/21/2023 10:03 AM EDT 04/21/2023 10:04 AM EDT Patrice Puente MD LAB BLOOD ORDERABLES [facility] [address] [place] [id number] * (ABNORMAL) CBC (04/21/2023 10:03 AM EDT) WBC 9.69 4.00 - 10.80 K/uL 04/21/2023 10:10 AM EDT [facility] 56 RBC 3.17 4.50 - 5.25 M/uL 04/21/2023 10:10 AM EDT [facility] 56 HGB 9.5(L) 14.0 - 16.8 g/dL 04/21/2023 10:10 AM EDT [facility] 56 HCT 31.1(L) 40.0 - 48.4 % 04/21/2023 10:10 AM EDT [facility] 56 MCV 98.1 82.0 - 99.5 fL 04/21/2023 10:10 AM EDT [facility] 56 MCH 30.0 27.0 - 34.0 pg 04/21/2023 10:10 AM EDT [facility] 56 MCHC 30.5 32.0 - 36.0 g/dL 04/21/2023 10:10 AM EDT [facility] 56 RDW 16.3 11.5 - 15.5 % 04/21/2023 10:10 AM EDT [facility] 56 PLT 318 140 - 400 K/uL 04/21/2023 10:10 AM EDT [facility] 56 MPV 9.3 6.6 - 11.1 fL 04/21/2023 10:10 AM EDT [facility] 56 Blood Venous blood specimen / Unknown Venipuncture / Unknown 04/21/2023 10:03 AM EDT 04/21/2023 10:04 AM EDT Patrice Puente MD LAB BLOOD ORDERABLES [facility] [address] [place] [id number] documented in this encounter Visit Diagnoses Diagnosis Prostate cancer (HCC) Malignant neoplasm of prostate documented in this encounter Care Teams Salvationist Relationship Specialty Start Date End Date Rhianna Huitron, [address] [place] [address] PCP - General Family Medicine 07/11/19 documented as of this encounter
--- OUTSIDE RECORDS SUMMARY | 2023-09-01 04:48 | External Medical Summary | Summary of Care ---
Author Name Unknown Organization [facility] Address [address] [facility] [address] Phone [phone] Care Team Providers Care Iridologist Name Role Phone Rhianna Huitron DO Primary Care Provider Reason for Visit * Reason Onset Date Comments Precert Future 04/14/2023 zytiga Encounter Details Date Type Department Care Team Description 04/14/2023 Telephone Hematology/Oncology Treatment, [place] [address] [place] [address] Patrice Puente MD [address] [place] [address] Precert Future (zytiga) Allergies Active Allergy Reactions [...] glucose 12/16/2005 Macular degeneration 12/02/1999 DISC DIS [id number] documented as of this encounter (statuses as of 04/21/2023) Resolved Problems Problem Noted Date Resolved Date Prediabetes 11/08/2018 04/17/2022 Overview: Per Prediabetes protocol #1 Morbid (severe) obesity due to excess calories 0 08/19/2017 03/09/2019 Infective otitis externa 09/08/2012 013 Cough 07/03/2012 08/18/2012 Benign neoplasm of colon 05/10/2007 019 Overview: adenomatous repeat colonoscopy in 5 years ARTHRITIS,RHEUMATOID 07/07/2006 05/12/2016 [id number] 07/07/2006 11/17/19 10 Overview: Renamed Per Clinical Trials Billing Project. Pt is a participant in the [facility] (Consortium of Rheumatology Researchers [place]) national data collection study. For further information please call Dr Hari Clark or Julia White, RN, CCRC at [phone] [facility] RESEARCH OTHER*[id number] 07/07/2006 01/28/2010 Overview: Renamed Per Clinical Trials Billing Project. Pt is a participant in the [facility] (Consortium of Rheumatology [place] national data collection study. For further information please call Dr Hari Clark or Julia White, RN, CCRC at [phone] Hearing loss 12/02/1999 03/29/2013 documented as of this encounter (statuses as of 04/21/2023) Immunizations Name Administration Dates Next Due COVID-19 mRNA, LNP-s, No Pre serve, 2-Dose Series ([employer] 06/14/2021,10/10/2020,09/12/2020 COVID-19, LNP-s, No Preserve , Yousuf-sucrose, [...] as of this encounter Miscellaneous Notes * Addendum Note - Diamond Hamilton RN - 04/21/2023 10:09 AM EDTAddended by: DIAMOND RIZO on: 04/21/2023 10:09 AM Modules accepted: Orders * Telephone Encounter - Diamond Hamilton RN - 04/21/2023 7:54 AM EDT Per P note, zytiga is being shipped 04/22/23. Called [...] 9:50am, would like to be scheduled at [facility] after radiation. Advised him that we will schedule the first few lab appointments for him starting 05/11. He verbalized understanding. Scheduling: - please add lab appts at [facility] on 05/11, 05/25, 06/08, 06/22 "CBCd, CMP" around 10:30am - please schedule follow up with Dr Puente in 1-2 months MTM: FILOMENA on start date 04/27/23. Thanks! * Telephone Encounter - Enedina Ordoñez RPh - 04/16/2023 1:02 PM EDT Rx sent to [facility]. MTM to follow up in 3 days for medication education * Telephone Encounter - Diamond Hamilton RN - 04/16/2023 12:49 PM EDT MTM: please release treatment plan- approved to go to [facility]. Thanks! * Telephone Encounter - Diamond Hamilton RN - 04/14/2023 11:07 AM EDT Order received for zytiga/ prednisone. [facility] already built beacon plan. Consent signed 04/10/23. Referral entered- can be filled at [facility]. Called patient to make him aware. Hep B labs 04/10/23. Patient is coming for nurse education 04/16/23- will need to repeat CBCd documented in this encounter Plan of Treatment Upcoming Encounters Date Type Specialty Care Team Description 04/21/2023 Laboratory [facility] [place]en[facility] [address] [place] [address] Prostate cancer (HCC) 04/21/2023 Pharmacy Pharmacy [facility], [facility] Hem[facility]Onc [address] [place] [address] 05/19/2023 Office Visit Urology Vinay Sexton MD [address] [facility] [address] [place] [address] 05/29/2023 Office Visit Family Medicine Rhianna Huitron, [address] [place] [address] 08/14/2023 Nurse Only Urology [place], Nurse Urology [place] [address] [place] [address] 09/10/2023 Office Visit Rheumatology Mendel Wilson MD [address] [place] [address] Scheduled Orders Name Type Priority Associated Diagnoses Orde r Schedule CBC WITH WBC DIFFERENTIAL Lab STAT Prostate cancer (HCC) Anemia, unspecified type Every 2 Weeks for 26 Occurrences starting 04/21/2023 until 04/21/2024 Scheduled Procedures Name Priority Associated Diagnoses Date/Ti me COLONOSCOPY FLEXIBLE PROXIMAL DIAGNOSTIC Recall Hx of colonic polyps Health Maintenance Due Date Last Done Comments CKD PHOS USE SMARTSET 21583 02/23/1963 DXA Scan 01/10/2021 01/10/2019, 12/2005, 07/07/2006 [...] Additional history exists CKD HGB USE SMARTSET 42136 04/16/202404/16, 04/16/2023, 04/10/2023, Additional history exists DTaP,Tdap,and Td Vaccines (3 - Td or Tdap) 12/04/2026 12/04/2016, 12/03/2006, 12/15/1996, Additional history exists Pneumococcal Vaccine: 65+ Years Completed 10/02/2014, 09/01/2011, 07/07/2006 Zoster Vaccines Completed 01/05/2020, 08/05, 10/02/2014 VITAMIN D LEVEL ONCE IN A LIFETIME-USE SMARTSET# [id number] Completed 05/27/2021, 09/07/2019, 01/10/2019, Additional history exists [...] Malignant neoplasm of prostate Anemia, unspecified type Prostate cancer (HCC) Malignant neoplasm of prostate documented in this encounter Care Teams Iridologist Relationship Specialty Start Date End Date Rhianna Huitron, DO [address] [place] [address] PCP - General Family Medicine 07/11/19 documented as of this encounter
--- OUTSIDE RECORDS SUMMARY | 2023-09-01 04:49 | External Medical Summary | Summary of Care ---
Author Name Unknown Organization [facility] Address [address] [facility] [address] Phone [phone] Care Team Providers Care Starter Cup Powder Mixer Name Role Phone Rhianna Huitron DO Primary Care Provider [phone] Reason for Visit * Reason Onset Date Comments Precert Future 04/14/2023 zytiga Encounter Details Date Type Department Care Team Description 04/14/2023 Telephone Hematology/Oncology Treatment, [place] [address] [place] [address] Patrice Puente MD [address] [place] [address] Precert Future (zytiga) Allergies Active Allergy Reactions Severity Noted Date Comments Brent Inhibitors Cough Low 11/26/2017 Alendronate Sodium Muscle pain 04/11/2019 Heartburn, constipation, joint pain Misoprostol Diarrhea 08/08/2003 Niacin Er 11/26/2010 Gas, hot flashes Pollen 01/01/2018 Watery eyes, sneezing Pravastatin 02/26/2007 Upset stomach, all .Statins Simvastatin 02/26/2007 Upset stomach documented as of this encounter (statuses as of 04/16/2023) Medications Medication Sig Dispensed Refills Start Date [...] as of this encounter (statuses as of 04/16/2023) Active Problems Problem Noted Date Prostate cancer [...] glucose 12/16/2005 Macular degeneration 12/02/1999 DISC DIS [id number] documented as of this encounter (statuses as of 04/16/2023) Resolved Problems Problem Noted Date Resolved Date Prediabetes 11/08/2018 04/17/2022 Overview: Per Prediabetes protocol #1 Morbid (severe) obesity due to excess calories 0 08/19/2017 03/09/2019 Infective otitis externa 09/08/2012 013 Cough 07/03/2012 08/18/2012 Benign neoplasm of colon 05/10/2007 019 Overview: adenomatous repeat colonoscopy in 5 years ARTHRITIS,RHEUMATOID 07/07/2006 05/12/2016 [id number] 07/07/2006 11/17/19 10 Overview: Renamed Per Clinical Trials Billing Project. Pt is a participant in the [facility] (Consortium of Rheumatology [place] national data collection study. For further information please call Dr Hari Clark or Julia White, RN, CCRC at [phone] [facility] RESEARCH OTHER*[id number] 07/07/2006 01/28/2010 Overview: Renamed Per Clinical Trials Billing Project. Pt is a participant in the [facility] (Consortium of [place]ology [place] national data collection study. For further information please call Dr Hari Clark or Julia White, RN, CCRC at [phone] Hearing loss 12/02/1999 03/29/2013 documented as of this encounter (statuses as of 04/16/2023) Immunizations Name Administration Dates Next Due COVID-19 mRNA, LNP-s, No Pre serve, 2-Dose Series ([employer]) 06/14/2021,10/10/2020,09/12/2020 COVID-19, LNP-s, No Preserve , Yousuf-sucrose, Ages 12+ ([employer]) 12/25/2021 Covid-19, Mrna, Lnp-s, Pf, B ivalent, [...] 04/16/2023 1:02 PM EDT Rx sent to [facility]. MTM to follow up in 3 days for medication education * Telephone Encounter - Alissa Hamilton RN - 04/16/2023 12:49 PM EDT MTM: please release treatment plan- approved to go to [facility]. Thanks! * Telephone Encounter - Alissa Hamilton RN - 04/14/2023 11:07 AM EDT Order received for zytiga/ prednisone. MTM already built beacon plan. Consent signed 04/10/23. Referral entered- can be filled at [facility]. Called patient to make him aware. Hep B labs 04/10/23. Patient is coming for nurse education 04/16/23- will need to repeat CBCd documented in this encounter Plan of Treatment Upcoming Encounters Date Type Specialty Care Team Description 04/17/2023 Pharmacy Pharmacy [facility] [address] [facility] [place] [address] Prostate cancer (HCC)* 05/19/2023 Office Visit Urology Vinay Sexton MD [address] [place] [address] [place] [address] 05/29/2023 Office Visit Family Medicine Rhianna Huitron, DO [address] [place] [address] 08/14/2023 Nurse Only Urology Nurse [facility] [place] [address] [place] [address] 09/10/2023 Office Visit [facility]umatology [facility] [address] [facility] [address] Scheduled Procedures Name Priority Associated Diagnoses Date/Ti me COLONOSCOPY FLEXIBLE PROXIMAL DIAGNOSTIC Recall Hx of colonic polyps Health Maintenance Due Date Last Done Comments DXA Scan 01/10/2021 01/10/2019, 12/2005, 07/07/2006 Depression [...] 01/31/2024 01/30/2023, , 01/25/2021, Additional history exists DTaP,Tdap,and Td Vaccines (3 - Td or Tdap) 12/04/2026 12/04/2016, 12/03/2006, 12/15/1996, Additional history exists Pneumococcal Vaccine: 65+ Years Completed 10/02/2014, 09/01/2011, 07/07/2006 Zoster Vaccines Completed 01/05/2020, 08/05, 10/02/2014 VITAMIN D LEVEL ONCE IN A LIFETIME-USE SMARTSET# [id number] Completed 05/27/2021, 09/07/2019, 01/10/2019, Additional history exists [...] filedocumented as of this encounter Care Teams Starter Cup Powder Mixer Relationship Specialty Start Date End Date Rhianna Huitron, DO [address] [place] [address] PCP - General Family Medicine 07/11/19 documented as of this encounter
--- OUTSIDE RECORDS SUMMARY | 2023-09-01 04:49 | External Medical Summary | Summary of Care ---
Author Name Unknown Organization [facility] Address [address] [place] [address] Phone [phone] Care Team Providers Care Certified Professional Ergonomist Name Role Phone Rhianna Huitron DO Primary Care Provider Reason for Referral * Evaluate & Treat - Unlimited Visits (Within 10 days (routine)) - Pending Review Specialty Diagnoses / Procedures Referred By Contac t Referred To Contact Pharmacist / Pharmacy Diagnoses Prostate cancer (HCC) Priya Shahid, [facility] [address] [place] [address] Referral ID Status Reason Start Date Expiration Date Visits Requested Visits Authorized [id number] Pending Review Specialty Services Required 04/16/2023 99 99 Question Answer Referral Priority Within 10 days (routine) Department: Specialist Specialty: Heme/Onc Reason for Referral: Oral Chemo Has consent been obtained for new oral chemo agent(s)? Yes Comments ORAL CHEMOTHERAPY MTDM MONITORING REFERRAL This patient is being referred to the Oral Chemotherapy Clinic for medication co-management. The planned duration of treatment is: Until disease progression/toxicity Please start oral chemotherapy: after RT complete Oral Chemotherapy Monitoring will continue until one of the following discharge criteria has been met. The provider will be informed if any of these occur. 1. Disease progression. 2. Patient non-compliance 3. Compliance and tolerating treatment well without major toxicities with routine provider follow up. 4. Completion of therapy. Additional Comments: N/A By my signature, I understand that my patient will have their medication therapy managed by the [facility] ([facility]) per established policies, procedures, and protocols. I also certify that this referral may serve as an initiation of service for the management of drug therapy in the above noted patient. [facility] providers will be responsible for scheduling patient visits, obtaining appropriate laboratory studies, and adjusting medication management therapy per patient's need, in addition to those roles spelled out in the clinic policy, procedures, and drug management protocols. I understand that the service provided by the [facility] is voluntary and have informed patient that they can refuse the service at their discretion. I am aware that the [facility] will provide me with a copy of the patient encounter via my [employer]. I authorize the [facility] to carry out these activities on my behalf. I consider this program to be a necessary part of the patient's medical care. Encounter Details Date Type Department Care Team Description 04/13/2023 Orders Only [facility] [place] [address] [facility] [place] [address] Patrice Puente MD [address] [facility] [place] [address] Prostate cancer (HCC)* Allergies Active Allergy Reactions [...] Take 4 Tablets by mouth in the morning. On an empty stomach (1 hour before or [...] glucose 12/16/2005 Macular degeneration 12/02/1999 DISC DIS [id number] documented as of this encounter (statuses as of 04/16/2023) Resolved Problems Problem Noted Date Resolved Date Prediabetes 11/08/2018 04/17/2022 Overview: Per Prediabetes protocol #1 Morbid (severe) obesity due to excess calories 0 08/19/2017 03/09/2019 Infective otitis externa 09/08/2012 013 Cough 07/03/2012 08/18/2012 Benign neoplasm of colon 05/10/2007 019 Overview: adenomatous repeat colonoscopy in 5 years ARTHRITIS,RHEUMATOID 07/07/2006 05/12/2016 [id number] 07/07/2006 11/17/19 10 Overview: Renamed Per Clinical Trials Billing Project. Pt is a participant in the [employer] (Consortium of Rheumatology [employer] [place]) national data collection study. For further information please call Dr Hari Clark or Julia White, RN, CCRC at [phone] [facility] RESEARCH OTHER*[id number] 07/07/2006 01/28/2010 Overview: Renamed Per Clinical Trials Billing Project. Pt is a participant in the [employer] (Consortium of Rheumatology [place] national data collection study. For further information please call Dr Hari Clark or Julia White, RN, CCRC at [phone] Hearing loss 12/02/1999 03/29/2013 documented as of this encounter (statuses as of 04/16/2023) Immunizations Name Administration Dates Next Due COVID-19 mRNA, LNP-s, No Pre serve, 2-Dose Series (Symplified) 06/14/2021,10/10/2020,09/12/2020 COVID-19, LNP-s, No Preserve , Yousuf-sucrose, [...] encounter Miscellaneous Notes * Addendum Note - Priya Shahid RPh - 04/16/2023 12:59 PM EDTAddended by: PRIYA SHAHID on: 04/16/2023 12:59 PM Modules accepted: Orders documented in this encounter Plan of Treatment Upcoming Encounters Date Type Specialty Care Team Description 04/17/[address] [facility] [place]c [address] [facility] [place] [id number] MEDICATION THERAPY MANAGEMENT ABIRATERONE 05/19/2023 Office Visit Urology Vinay Sexton MD [address] [place] [address] [place] [address] 05/29/2023 Office Visit Family Medicine Rhianna Huitron DO [address] [place] [address] 08/14/2023 Nurse Only Urology [place], Nurse Urology [place] [address] [place] [address] 09/10/2023 Office Visit Rheumatology Mendel Wilson MD [address] [place] [address] Scheduled Orders Name Type Priority Associated Diagnoses Orde r Schedule COMPREHENSIVE METABOLIC PANEL Lab STAT Prostate cancer (HCC) Other, Please specify in Comments field for 15 Occurrences starting 04/16/2023 until 04/15/2024 Scheduled Procedures Name Priority Associated Diagnoses Date/Ti me COLONOSCOPY FLEXIBLE PROXIMAL DIAGNOSTIC Recall Hx of colonic polyps Scheduled Referrals Name Type Priority Associated Diagnoses Orde r Schedule PHARMACIST MEDS THERAPY MGMT REFERRAL OP Referral Within 10 days (routine) Prostate cancer (HCC) Ordered: 04/16/2023 Health Maintenance Due Date Last Done Comments [...] D LEVEL ONCE IN A LIFETIME-USE SMARTSET# [id number] Completed 05/27/2021, 09/07/2019, 01/10/2019, Additional history exists [...] prostate documented in this encounter Care Teams Certified Professional Ergonomist Relationship Specialty Start Date End Date Rhianan Huitron, DO [address] [place] [address] PCP - General Family Medicine 07/11/19 documented as of this encounter
--- OUTSIDE RECORDS SUMMARY | 2023-09-01 04:49 | External Medical Summary ---
Author Name Unknown Address Unknown Organization K09:[facility] [place] [address] Laboratory Report Ordering Provider Test Date Status JOHNATHON CASILLAS 04/16/2023 12:39:53 Final Observation Date Value Abnormality Reference (Units ) Status SYNC LEUKOCYTES IN BLOOD BY AUTOMATED COUNT 04/16/2023 12:39:53 8.73 4.00-10.80 (K/uL) Final Segs 04/16/2023 12:39:53 69.8 40.0-75.0 (%) Final Lymphs % 04/16/2023 12:39:53 18.9 18.0-42.0 (%) Final Monos 04/16/2023 12:39:53 8.2 1.0-11.0 (%) Final Eosinophils 04/16/2023 12:39:53 2.4 0.0-6.0 (%) Final Basos 04/16/2023 12:39:53 0.7 0.0-2.0 (%) Final Absolute Segs 04/16/2023 12:39:53 6.09 1.80-7.70 (K/uL) Final Lymphs, absolute 04/16/2023 12:39:53 1.65 1.00-4.80 (K/ul) Final Monos, Abs 04/16/2023 12:39:53 0.72 0.00-1.10 (K/uL) Final Eos, Abs 04/16/2023 12:39:53 0.21 0.00-0.70 (K/uL) Final Basos, Abs 04/16/2023 12:39:53 0.06 0.00-0.20 (K/uL) Final Performing Location [facility] [place] [place] [address]
--- OUTSIDE RECORDS SUMMARY | 2023-09-01 04:49 | External Medical Summary | Summary of Care ---
Author Name Unknown Organization [facility] Address [address] [facility] [address] Phone [phone] Care Team Providers Care Administrative Appeals Tribunal Member Name Role Phone Rhianna Huitron DO Primary Care Provider Reason for Visit * Reason Onset Date Comments Precert Future 04/14/2023 zytiga Encounter Details Date Type Department Care Team Description 04/14/2023 Telephone Hematology/Oncology Treatment, [place] [address] [place] [address] Patrice Puente MD [address] [place] [address] Precert Future (zytiga) Allergies Active Allergy Reactions [...] glucose 12/16/2005 Macular degeneration 12/02/1999 DISC DIS [id number] documented as of this encounter (statuses as of 04/16/2023) Resolved Problems Problem Noted Date Resolved Date Prediabetes 11/08/2018 04/17/2022 Overview: Per Prediabetes protocol #1 Morbid (severe) obesity due to excess calories 0 08/19/2017 03/09/2019 Infective otitis externa 09/08/2012 013 Cough 07/03/2012 08/18/2012 Benign neoplasm of 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 Pt is a participant in the [employer] (Consortium of Rhe[employer]ology [place]) national data collection study. For further information please call Dr Hari Clark or Julia White, RN, CCRC at [phone] [facility] RESEARCH OTHER*[id number] 07/07/2006 01/28/2010 Overview: Renamed Per Clinical Trials Billing Project. Pt is a participant in the [employer] ([employer]ortium of Rhe[employer]ology [place] national data collection study. For further information please call Dr Hari Clark or Julia White, RN, CCRC at [phone] Hearing loss 12/02/1999 03/29/2013 documented as of this encounter (statuses as of 04/16/2023) Immunizations Name Administration Dates Next Due COVID-19 mRNA, LNP-s, No Pre serve, 2-Dose Series (Unight) 06/14/2021,10/10/2020,09/12/2020 COVID-19, LNP-s, No Preserve , Yousuf-sucrose, Ages 12+ (Unight) 12/25/2021 Covid-19, Mrna, Lnp-s, Pf, B ivalent, [...] Hamilton RN - 04/16/2023 12:49 PM EDT MT: please release treatment plan- approved to go to [facility]. Thanks! * Telephone Encounter - Alissa Hamilton RN - 04/14/2023 11:07 AM EDT Order received for zytiga/ prednisone. [facility] already built beacon plan. Consent signed 04/10/23. Referral entered- can be filled at [facility]. Called patient to make him aware. Hep B labs 04/10/23. Patient is coming for nurse education 04/16/23- will need to repeat CBCd documented in this encounter Plan of Treatment Upcoming Encounters Date Type Specialty Care Team Description 04/16/2023 Nurse Only Hematology Oncology Nurse Faby Hem Onc Scene [address] [place] [address] Prostate cancer (HCC) 04/17/2023 Pharmacy Pharm[place] [facility] [place]Onc [address] [place] [address] 05/19/2023 Office Visit Urology Vinay Sexton MD [address] [facility] [address] [place] [address] 05/29/2023 Office Visit Family Medicine Rhianna Huitron DO [address] [place] [address] 08/14/2023 Nurse Only Urology [place], Nurse Urology [place] [address] [place] [address] 09/10/2023 Office Visit Rheumatology Mendel Wilson MD [address] [employer] [place] [address] Scheduled Procedures Name Priority Associated Diagnoses Date/Ti [...] D LEVEL ONCE IN A LIFETIME-USE SMARTSET# [id number] Completed 05/27/2021, 09/07/2019, 01/10/2019, Additional history exists [...] filedocumented as of this encounter Care Teams Administrative Appeals Tribunal Member Relationship Specialty Start Date End Date Rhianna Huitron, [address] [place] [address] PCP - General Family Medicine 07/11/19 documented as of this encounter
--- OUTSIDE RECORDS SUMMARY | 2023-09-01 04:49 | External Medical Summary | Summary of Care ---
Author Name Unknown Organization [facility] Address [address] [facility] [address] Phone [phone] Care Team Providers Care [place] Guide Name Role Phone Reggieruma Rhianna Keturah DOMINGUEZ Primary Care Provider [phone] Encounter Details Date Type Department Care Team Description 04/16/2023 Nurse Only Hematology/Oncology [facility] [address] [facility] [address] [place], Nurse Hem Onc Scenery [address] [place] [address] Arrived Allergies Active Allergy Reactions Severity Noted Date [...] glucose 12/16/2005 Macular degeneration 12/02/1999 DISC DIS [id number] documented as of this encounter (statuses as of 04/16/2023) Resolved Problems Problem Noted Date Resolved Date Prediabetes 11/08/2018 04/17/2022 Overview: Per Prediabetes protocol #1 Morbid (severe) obesity due to excess calories 0 08/19/2017 03/09/2019 Infective otitis externa 09/08/2012 013 Cough 07/03/2012 08/18/2012 Benign neoplasm of colon 05/10/2007 019 Overview: adenomatous repeat colonoscopy in 5 years ARTHRITIS,RHEUMATOID 07/07/2006 05/12/2016 [id number] 07/07/2006 11/17/19 10 Overview: Renamed Per Clinical Trials Billing Project. Pt is a participant in the [employer] (Consortium of Rheumatology Researchers [place] national data collection study. For further information please call Dr Hari Clark or Julia White, RN, CCRC at [phone] [facility] RESEARCH OTHER*[id number] 07/07/2006 01/28/2010 Overview: Renamed Per Clinical Trials Billing Project. Pt is a participant in the [employer] (Consortium of Rheumatology Researchers [place] national data collection study. For further information please call Dr Hari Clark or Julia White, RN, CCRC at [phone] Hearing loss 12/02/1999 03/29/2013 documented as of this encounter (statuses as of 04/16/2023) Immunizations Name Administration Dates Next Due COVID-19 mRNA, LNP-s, No Pre serve, 2-Dose Series (Red Blue Voice) 06/14/2021,10/10/2020,09/12/2020 COVID-19, LNP-s, No Preserve , Yousuf-sucrose, [...] as of this encounter Nursing Notes * Alissa Hamilton RN - 04/16/2023 2:26 PM EDT Hgb 8.1. Per Dr Puente, repeat in 1 week, will also check CMP and epo at that time. Orders placed, patient aware. documented in this encounter Plan of Treatment Upcoming Encounters Date Type Specialty Care Team Description 04/17/2023 Pharmacy Pharmacy [facility] Hem/Onc [address] [place] [address] Prostate cancer (HCC)* 04/21/2023 Pharmacy Pharmacy [facility] Hem/Onc [address] [place] [address] 05/19/2023 Office Visit Urology Vinay Sexton MD [address] [facility] [address] [place] [address] 05/29/2023 Office Visit Family Medicine Rhianna Huitron, [address] [place] [address] 08/14/2023 Nurse Only Urology [place], Nurse Urology [place] [address] [place] [address] 09/10/2023 Office Visit Rheumatology Mendel Wilson MD [address] [place] [address] Scheduled Orders Name Type Priority Associated Diagnoses Orde r Schedule ERYTHROPOIETIN (EPO) Lab STAT Prostate cancer (HCC) Expected: 04/22/2023 (Approximate), Expires: 04/16/2024 CBC WITH WBC DIFFERENTIAL Lab STAT Prostate cancer (HCC) Expected: 04/22/2023 (Approximate), Expires: 04/16/2024 COMPREHENSIVE METABOLIC PANEL Lab STAT Prostate cancer (HCC) Expected: 04/22/2023 (Approximate), Expires: 04/16/2024 Scheduled Procedures Name Priority Associated Diagnoses Date/Ti me COLONOSCOPY FLEXIBLE PROXIMAL DIAGNOSTIC Recall Hx of colonic polyps Health Maintenance Due Date Last Done Comments CKD PHOS USE SMARTSET 76040 02/23/1963 DXA Scan 01/10/2021 01/10/2019, 12/2005, 07/07/2006 Depression Screening 03/13/2021 03/13/2020 Influenza Vaccine (FLU shot) (#1) 2023 05/08/2022, 05/07/2021, 04/17/2020, Additional history exists Albumin/Creatinine Ratio 04/10/2023 04/10/2022, 10/2006 HbA1c 06/26/2023 12/24/2022, 0412/2022, 04/10/2022, Additional history exists GFR 10/09/2023 04/10/2023, 03/04, 12/24/2022, Additional history exists Diabetic Foot Exam 12/25/2023 12/24/2022 COLONOSCOPY-EVERY 5 YRS AGES 18-100 01/22/2024 01/21/2019, 01/21/2019, 05/10/2013, Additional history exists DIABETES-EYE EXAM 01/31/2024 01/30/2023, , 01/25/2021, Additional history exists CKD HGB USE SMARTSET 80377 04/16/202404/16, 04/16/2023, 04/10/2023, Additional history exists DTaP,Tdap,and Td Vaccines (3 - Td or Tdap) 12/04/2026 12/04/2016, 12/03/2006, 12/15/1996, Additional history exists Pneumococcal Vaccine: 65+ Years Completed 10/02/2014, 09/01/2011, 07/07/2006 Zoster Vaccines Completed 01/05/2020, 08/05, 10/02/2014 VITAMIN D LEVEL ONCE IN A LIFETIME-USE SMARTSET# [id number] Completed 05/27/2021, 09/07/2019, 01/10/2019, Additional history exists [...] Date/Time Associated Diagnosis Comments DIFFERENTIAL, AUTOMATED STAT 04/16/2023 12:39 PM EDT Prostate cancer (HCC) CBC WITH WBC DIFFERENTIAL STAT 04/16/2023 12:39 PM EDT Prostate cancer (HCC) CBC STAT 04/16/2023 12:39 PM EDT Prostate cancer (HCC) documented in this encounter Results * DIFFERENTIAL, AUTOMATED (04/16/2023 12:39 PM EDT) WBC 8.73 4.00 - 10.80 K/uL 04/16/2023 12:51 PM EDT [facility] 56-02 Neutrophils % 69.8 40.0 - 75.0 % 04/16/2023 12:51 PM EDT [facility] 56-02 Lymphocytes % 18.9 18.0 - 42.0 % 04/16/2023 12:51 PM EDT [facility] 56-02 Monocytes % 8.2 1.0 - 11.0 % 04/16/2023 12:51 PM EDT [facility] 56-02 Eosinophils % 2.4 0.0 - 6.0 % 04/16/2023 12:51 PM EDT [facility] 56-02 Basophils % 0.7 0.0 - 2.0 % 04/16/2023 12:51 PM EDT [facility] 56-02 Absolute Neutrophils 6.09 1.80 - 7.70 K/uL 04/16/2023 12:51 PM EDT [facility] 56- Absolute Lymphocytes 1.65 1.00 - 4.80 K/ul 04/16/2023 12:51 PM EDT [facility] 56- Absolute Monocytes 0.72 0.00 - 1.10 K/uL 04/16/2023 12:51 PM EDT [facility] 56- Absolute Eosinophils 0.21 0.00 - 0.70 K/uL 04/16/2023 12:51 PM EDT [facility] 56 Absolute Basophils 0.06 0.00 - 0.20 K/uL 04/16/2023 12:51 PM EDT [facility] 56 Blood Venous blood specimen / Unknown Venipuncture / Unknown 04/16/2023 12:39 PM EDT 04/16/2023 12:39 PM EDT Patrice Puente MD LAB BLOOD ORDERABLES Performing Organization Address City/State/[facility] Co de Phone Number [facility] [address] [place] [address] * (ABNORMAL) CBC (04/16/2023 12:39 PM EDT) WBC 8.73 4.00 - 10.80 K/uL 04/16/2023 12:51 PM EDT [facility] 56 RBC 2.73 4.50 - 5.25 M/uL 04/16/2023 12:51 PM EDT [facility] 56 HGB 8.1(L) 14.0 - 16.8 g/dL 04/16/2023 12:51 PM EDT [facility] 56 HCT 26.5(L) 40.0 - 48.4 % 04/16/2023 12:51 PM EDT [facility] 56- MCV 97.1 82.0 - 99.5 fL 04/16/2023 12:51 PM EDT [facility] 56- MCH 29.7 27.0 - 34.0 pg 04/16/2023 12:51 PM EDT [facility] 56 MCHC 30.6 32.0 - 36.0 g/dL 04/16/2023 12:51 PM EDT [facility] 56 RDW 16.6 11.5 - 15.5 % 04/16/2023 12:51 PM EDT [facility] 56 PLT 307 140 - 400 K/uL 04/16/2023 12:51 PM EDT [facility] 56 MPV 9.4 6.6 - 11.1 fL 04/16/2023 12:51 PM EDT [facility] Blood Venous blood specimen / Unknown Venipuncture / Unknown 04/16/2023 12:39 PM EDT 04/16/2023 12:39 PM EDT Patrice Puente MD LAB BLOOD ORDERABLES [facility] [address] [place] [address] documented in this encounter Visit Diagnoses Diagnosis Prostate cancer (HCC)- Primary Malignant neoplasm of prostate Prostate cancer (HCC)- Primary Malignant neoplasm of prostate documented in this encounter Care Teams [place] Guide Relationship Specialty Start Date End Date Rhianna Huitron, [address] [place] [address] PCP - General Family Medicine 07/11/19 documented as of this encounter
--- OUTSIDE RECORDS SUMMARY | 2023-09-01 04:49 | External Medical Summary | Summary of Care ---
Author Name Unknown Organization [facility] Address [address] [place] [address] Phone [phone] Care Team Providers Care Surgical Training Specialist Name Role Phone Rhianna Huitron DO Primary Care Provider [phone] Reason for Visit * Reason Comments Medication Management Encounter Details Date Type Department Care Team Description 04/17/2023 Pharmacy Pharmacy Hematology Oncology [facility] [address] [place] [address] [facility] [place] Hem/Onc [address] [place], [place] [id number] Prostate cancer (HCC)* Allergies Active Allergy Reactions [...] glucose 12/16/2005 Macular degeneration 12/02/1999 DISC DIS [id number] documented as of this encounter (statuses as of 04/16/2023) Resolved Problems Problem Noted Date Resolved Date Prediabetes 11/08/2018 04/17/2022 Overview: Per Prediabetes protocol #1 Morbid (severe) obesity due to excess calories 0 08/19/2017 03/09/2019 Infective otitis externa 09/08/2012 013 Cough 07/03/2012 08/18/2012 Benign neoplasm of colon 05/10/2007 019 Overview: adenomatous repeat colonoscopy in 5 years ARTHRITIS,RHEUMATOID 07/07/2006 05/12/2016 [id number] 07/07/2006 11/17/19 10 Overview: Renamed Per Clinical Trials Billing Project. Pt is a participant in the [employer] (Consortium of Rheumatology Researchers [place]) national data collection study. For further information please call Dr Hari Clark or Julia White, RN, CCRC at [phone] [facility] RESEARCH OTHER*[id number] 07/07/2006 01/28/2010 Overview: Renamed Per Clinical Trials Billing Project. Pt is a participant in the [employer] (Consortium of Rheumatology [place]) national data collection study. For further information please call Dr Hari Clark or Julia White, RN, CCRC at [phone] Hearing loss 12/02/1999 03/29/2013 documented as of this encounter (statuses as of 04/16/2023) Immunizations Name Administration Dates Next Due COVID-19 mRNA, LNP-s, No Pre serve, 2-Dose Series (ecomom) 06/14/2021,10/10/2020,09/12/2020 COVID-19, LNP-s, No Preserve , Yousuf-sucrose, Ages 12+ (Pfizer) 12/25/2021 Covid-19, Mrna, Lnp-s, Pf, B ivalent, 30 Mcg, IM, 12 yrs and above (ecomom) 05/23/2022 Pneumococcal Conjugate Vacc, 13 Valent (Prevnar) [...] encounter Progress Notes * Enedina Ordoñez, [facility] - 04/16/2023 12:58 PM EDT MEDICATION THERAPY MANAGEMENT ABIRATERONE TREATMENT STATUS NOTE Markus Wharton [phone] Patient Phone Numbers Communication: Chart review Treatment: Medication: Abiraterone (Zytiga) Indication/Staging/Diagnosis Code: prostate cancer/ C61 Dose: 1000mg daily Administration: empty stomach (1 hour before or 2 hours after a meal) Start Date: TBD (after RT completion) Primary Escrow Officer/Oncologist: Dr. Leon Puente Additional Therapy: Prednisone 5mg daily Lupron Supportive Care Meds: None Prophylactic Meds: Losartain 12.5mg daily HCTZ 12.5mg daily Review of therapy: Line of therapy: first Previous therapy: 04/08/23-present: Lupron Assessment and Plan: Per OV 04/10/23, abiraterone/prednisone to start after RT at [facility] complete Abiraterone RX sent to [facility] Prednisone RX sent to [facility] to follow up in 3 days for medication education Yes/no Date Action Taken [place] plan entered? Yes 04/13/23 Consent completed? Yes 04/14/23 Intro/med rec completed? Precert completed? yes 04/14/23 Test claim completed? yes 04/14/23 RX to be sent to [facility]. Copay $12 Financial assistance needed? no Physician signature? yes 04/14/23 Rx released? yes 04/16/23 Education completed? Follow up: 3 days Enedina Ordoñez, PharmD, BCOP Clinical Pharmacist, [facility] Oral Chemotherapy [facility] 04/16/2023, 1:01 PM Monitoring Parameters: Estimated CrCl Serum creatinine: 1.9 mg/dL (H) 04/10/23 1302 Estimated creatinine clearance: 48.9 mL/min (A) Hepatitis panel Latest Reference Range [...] Pertinent labs: Latest Reference Range & Units 04/10/23 13:02 Albumin 3.8 - 5.0 g/dL 3.8 AST 10 - 50 U/L 14 ALT 10 - 50 U/L 9 (L) Alkaline Phosphatase 35 - 130 U/L 87 Bilirubin, Total <=1.2 mg/dL 0.3 Latest Reference Range & Units 04/10/22 09:07 12/10/22 08:44 04/10/23 13:02 PSA <4.10 ng/mL 5.19 (H) 8.49 (H) 4.38 (H) 12/06/2022 12/24/2022 04/10/2023 BP AND WT. Systolic 142 140 150 Diastolic 70 74 76 Time Spent on Encounter: 6 - 10 minutes Encounter Group: Oncology Encounter Interventions Item Category: Oral Chemotherapy Abiraterone Problem/Rationale: [place] Plan Review: Clinical Review Pharmacist Intervention(s): Medication prescribed Magnitude of Intervention: Modification of medication for asymtomatic patients (Level 2) documented in this encounter Plan of Treatment Upcoming Encounters Date Type Specialty Care Team Description 05/19/2023 [facility] [address] [place] [phone] 05/29/2023 Office Visit Family Medicine Rhianna Huitron, DO [address] [place] [address] [phone] 08/14/2023 Nurse Only Urology Garrett, Nurse Urology [place] [address] [place] [address] 09/10/2023 Office Visit Rheumatology Mendel Wilson MD [address] [place] [address] Scheduled Procedures Name Priority Associated Diagnoses Date/Ti me COLONOSCOPY FLEXIBLE PROXIMAL DIAGNOSTIC Recall Hx of colonic polyps Health Maintenance Due Date Last Done Comments CKD PHOS USE SMARTSET 54041 02/[birth year]/1964 DXA Scan 01/10/2021 01/10/2019, 12/2005, 07/07/2006 [...] Additional history exists CKD HGB USE SMARTSET 15239 04/16/202404/16, 04/16/2023, 04/10/2023, Additional history exists DTaP,Tdap,and Td Vaccines (3 - Td or Tdap) 12/04/2026 12/04/2016, 12/03/2006, 12/15/1996, Additional history exists Pneumococcal Vaccine: 65+ Years Completed 10/02/2014, 09/01/2011, 07/07/2006 Zoster Vaccines Completed 01/05/2020, 08/05, 10/02/2014 VITAMIN D LEVEL ONCE IN A LIFETIME-USE SMARTSET# [id number] Completed 05/27/2021, 09/07/2019, 01/10/2019, Additional history exists [...] prostate documented in this encounter Care Teams Surgical Training Specialist Relationship Specialty Start Date End Date Rhianna Huitron, [address] [place] [address] PCP - General Family Medicine 07/11/19 documented as of this encounter
--- OUTSIDE RECORDS SUMMARY | 2023-09-01 04:49 | External Medical Summary ---
Author Name Unknown Address Unknown Organization K09:[facility] [place] [address] Laboratory Report Ordering Provider Test Date Status JOHNATHON CASILLAS 04/16/2023 12:39:53 Final Observation Date Value Abnormality Reference (Units ) Status WBC, Total 04/16/2023 12:39:53 8.73 4.00-10.8 0 (K/uL) Final RBC 04/16/2023 12:39:53 2.73 4.50-5.25 (M/uL) Final Hemoglobin 04/16/2023 12:39:53 8.1 Below low normal 14 .0-16.8 (g/dL) Final HCT 04/16/2023 12:39:53 26.5 Below low normal 40. 0-48.4 (%) Final MCV 04/16/2023 12:39:53 97.1 82.0-99.5 (fL) Final MCH 04/16/2023 12:39:53 29.7 27.0-34.0 (pg) Final MCHC 04/16/2023 12:39:53 30.6 32.0-36.0 (g/dL) Final RDW 04/16/2023 12:39:53 16.6 11.5-15.5 (%) Final Platelets 04/16/2023 12:39:53 307 140-400 (K /uL) Final MPV 04/16/2023 12:39:53 9.4 6.6-11.1 ( fL) Final Performing Location [facility] [place] [address]
--- OUTSIDE RECORDS SUMMARY | 2023-09-01 04:49 | External Medical Summary | Summary of Care ---
Author Name Unknown Organization [facility] Address [address] [facility] [address] Phone [phone] Care Team Providers Care Elastic Yarn Twister Helper Name Role Phone Rhianna Huitron DO Primary Care Provider Reason for Visit * Reason Onset Date Comments Precert Future 04/14/2023 zytiga Encounter Details Date Type Department Care Team Description 04/14/2023 Telephone Hematology/Oncology Treatment, [place] [address] [place] [address] Patrice Puente MD [address] [place] [address] Precert Future (zytiga) Allergies Active Allergy Reactions Severity Noted Date Comments Brent Inhibitors Cough Low 11/26/2017 Alendronate Sodium Muscle pain 04/11/2019 Heartburn, constipation, joint pain Misoprostol Diarrhea 08/08/2003 Niacin Er 11/26/2010 Gas, hot flashes Pollen 01/01/2018 Watery eyes, sneezing Pravastatin 02/26/2007 Upset stomach, all .Statins Simvastatin 02/26/2007 Upset stomach documented as of this encounter (statuses as of 04/14/2023) Medications Medication Sig Dispensed Refills Start Date [...] as of this encounter (statuses as of 04/14/2023) Active Problems Problem Noted Date Prostate cancer 04/13/2023 Diabetes mellitus without complication 0 04/10/2022 Dyslipidemia, [...] glucose 12/16/2005 Macular degeneration 12/02/1999 DISC DIS [id number] documented as of this encounter (statuses as of 04/14/2023) Resolved Problems Problem Noted Date Resolved Date Prediabetes 11/08/2018 04/17/2022 Overview: Per Prediabetes protocol #1 Morbid (severe) obesity due to excess calories 0 08/19/2017 03/09/2019 Infective otitis externa 09/08/2012 013 Cough 07/03/2012 08/18/2012 Benign neoplasm of colon 05/10/2007 019 Overview: adenomatous repeat colonoscopy in 5 years ARTHRITIS,RHEUMATOID 07/07/2006 05/12/2016 [id number] 07/07/2006 11/17/19 10 Overview: Renamed Per Clinical Trials Billing Project. Pt is a participant in the [facility] (Consortium of Rheumatology Researchers [place]) national data collection study. For further information please call Dr Hari Clark or Julia White, RN, CCRC at [phone] [facility] RESEARCH OTHER*[id number] 07/07/2006 01/28/2010 Overview: Renamed Per Clinical Trials Billing Project. Pt is a participant in the [facility] (Consortium of Rheumatology [place] national data collection study. For further information please call Dr Hari Clark or Julia White, RN, CCRC at [phone] Hearing loss 12/02/1999 03/29/2013 documented as of this encounter (statuses as of 04/14/2023) Immunizations Name Administration Dates Next Due COVID-19 mRNA, LNP-s, No Pre serve, 2-Dose Series ([employer]) 06/14/2021,10/10/2020,09/12/2020 COVID-19, LNP-s, No Preserve , Yousuf-sucrose, Ages 12+ (Pfizer) 12/25/2021 Covid-19, Mrna, Lnp-s, Pf, B ivalent, 30 Mcg, IM, 12 yrs and above (Instantis) 05/23/2022 Pneumococcal Conjugate Vacc, 13 Valent (Prevnar) [...] AM EDT Order received for zytiga/ prednisone. [facility] already built beacon plan. Consent signed 04/10/23. Referral entered- can be filled at [facility]. Called patient to make him aware. Hep B labs 04/10/23. Patient is coming for nurse education 04/16/23- will need to repeat CBCd documented in this encounter Plan of Treatment Upcoming Encounters Date Type Specialty Care Team Description 04/16/2023 Nurse Only Hematology Oncology Faby, Nurse Hem Onc [facility] [address] [place] [address] 04/17/2023 Pharmacy Pharmacy [facility] [place], [facility] Hem[facility]Onc [address] [place] [address] 05/19/2023 Office Visit Urology Vinay Sexton MD [address] [address] 05/29/2023 Office Visit Family Medicine Rhianna Huitron DO [address] [place] [address] 08/14/2023 Nurse Only Urology Garrett, Nurse Urology [place] [address] [place] [address] 09/10/2023 Office Visit Rheumatology Mendel Wilson MD [address] [place] [address] Scheduled Procedures Name Priority Associated Diagnoses Date/Ti me COLONOSCOPY FLEXIBLE PROXIMAL DIAGNOSTIC Recall Hx of colonic polyps Health Maintenance Due Date Last Done Comments DXA Scan 01/10/2021 01/10/2019, 12/0 12/2005, 07/07/2006 Depression Screening 03/13/2021 03/13/2020 Influenza Vaccine (FLU shot) (#1) 2023 05/08/2022, 05/07/2021, 04/17/2020, Additional history exists Albumin/Creatinine Ratio 04/10/2023 04/10/2022, 10/2006 HbA1c 06/26/2023 12/24/2022, 11/01, 04/10/2022, Additional history exists Diabetic Foot Exam 12/25/2023 12/24/2022 COLONOSCOPY-EVERY 5 YRS AGES 18-100 01/22/2024 01/21/2019, 01/21/2019, 05/10/2013, Additional history exists DIABETES-EYE EXAM 01/31/2024 01/30/2023, , 01/25/2021, Additional history exists GFR 04/10/2024 04/10/2023, 03/04, 12/24/2022, Additional history exists DTaP,Tdap,and Td Vaccines (3 - Td or Tdap) 12/04/2026 12/04/2016, 12/03/2006, 12/15/1996, Additional history exists Pneumococcal Vaccine: 65+ Years Completed 10/02/2014, 09/01/2011, 07/07/2006 Zoster Vaccines Completed 01/05/2020, 08/05, 10/02/2014 VITAMIN D LEVEL ONCE IN A LIFETIME-USE SMARTSET# [id number] Completed 05/27/2021, 09/07/2019, 01/10/2019, Additional history exists [...] filedocumented as of this encounter Care Teams Elastic Yarn Twister Helper Relationship Specialty Start Date End Date Rhianna Huitron, DO [address] [place] [address] PCP - General Family Medicine 07/11/19 documented as of this encounter
--- OUTSIDE RECORDS SUMMARY | 2023-09-01 04:49 | External Medical Summary | Summary of Care ---
Author Name Unknown Organization [facility] Address [address] [facility] [address] Phone [phone] Care Team Providers Care Right Of Way Man Name Role Phone Elana Rhianna Keturah DOMINGUEZ Primary Care Provider Reason for Visit * Reason Onset Date Comments Test Results Lab 04/13/2023 Encounter Details Date Type Department Care Team Description 04/13/2023 Telephone Hematology/Oncology [facility] [address] [place] [address] Patrice Puente MD [address] [facility] [place] [address] Test Results Lab Allergies Active Allergy Reactions Severity Noted Date [...] glucose 12/16/2005 Macular degeneration 12/02/1999 DISC DIS [id number] documented as of this encounter (statuses as of 04/14/2023) Resolved Problems Problem Noted Date Resolved Date Prediabetes 11/08/2018 04/17/2022 Overview: Per Prediabetes protocol #1 Morbid (severe) obesity due to excess calories 0 08/19/2017 03/09/2019 Infective otitis externa 09/08/2012 013 Cough 07/03/2012 08/18/2012 Benign neoplasm of colon 05/10/2007 019 Overview: adenomatous repeat colonoscopy in 5 years ARTHRITIS,RHEUMATOID 07/07/2006 05/12/2016 [id number] 07/07/2006 11/17/19 10 Overview: Renamed Per Clinical Trials Billing Project. Pt is a participant in the [facility] (Consortium of Rheumatology [place] national data collection study. For further information please call Dr Hari Clark or Julia White, RN, CCRC at [phone] [facility] RESEARCH OTHER*[id number] 07/07/2006 01/28/2010 Overview: Renamed Per Clinical Trials Billing Project. Pt is a participant in the [facility] (Consortium of [place]umatology [place] national data collection study. For further information please call Dr Hari Clark or Julia White, RN, CCRC at [phone] Hearing loss 12/02/1999 03/29/2013 documented as of this encounter (statuses as of 04/14/2023) Immunizations Name Administration Dates Next Due COVID-19 mRNA, LNP-s, No Pre serve, 2-Dose Series (PolyRemedy) 06/14/2021,10/10/2020,09/12/2020 COVID-19, LNP-s, No Preserve , Yousuf-sucrose, [...] encounter Miscellaneous Notes * Telephone Encounter - Ashtyn СВЕТЛАНА Adamson - 04/13/2023 3:28 PM EDT Notified patient per myG message, patient is active. Lab order placed for cbcd in 1 week. ----- Message from Patrice Puente MD sent at 04/13/2023 11:23 AM EDT ----- Blood workup done on 04/10/2023: -WBC 70189, H&H of 8.1/26, MCV 96, Platelet count 051406 -BUN/Creat: 28/1.9, Calcium 9.3, normal LFT -PSA level -> 4.38 -Ferritin level -> 342, folic acid -> > 20 -Serum iron: 34, TIBC 257, iron saturation 13% -Vitamin B12 -> 495 -Absolute reticulocyte count -> 175,000 Overall worsening anemia, reticulocytosis. No clear evidence of iron deficiency, improvement of thekidney function test noted after self-catheterization. Anemia of metastatic prostate cancer and renal insufficiency would be possible.. Recently he had UTI also contributing to the anemia. Bone marrow maybe recovering based on reticulocytosis I would like to repeat CBCD in about 1 week time documented in this encounter Plan of Treatment Upcoming Encounters Date Type Specialty Care Team Description 04/16/2023 Nurse Only Hematology Oncology Faby, Nurse Hem Onc [facility] [address] [place] [address] 04/17/[address] [facility] [place] [facility], [facility] Hem/Onc [address] [place], [place] [phone] 05/19/2023 Office Visit Urology Vinay Sexton MD [address] [place] [address] [place] [address] 05/29/2023 Office Visit Family Medicine Rhianna Huitron, [address] [place] [address] 08/14/2023 Nurse Only Urology Nurse Garrett Urologtherese Conde [address] [facility] [place] [address] 09/10/2023 Office Visit Rheumatology Mendel Wilson MD [address] [facility] [place] [address] Scheduled Orders Name Type Priority Associated Diagnoses Orde r Schedule CBC WITH WBC DIFFERENTIAL Lab STAT Prostate cancer (HCC) Expected: 04/20/2023 (Approximate), Expires: 04/13/2024 Scheduled Procedures Name Priority Associated Diagnoses Date/Ti [...] D LEVEL ONCE IN A LIFETIME-USE SMARTSET# [id number] Completed 05/27/2021, 09/07/2019, 01/10/2019, Additional history exists [...] prostate documented in this encounter Care Teams Right Of Way Man Relationship Specialty Start Date End Date Rhianna Huitron, [address] [place] [address] PCP - General Family Medicine 07/11/19 documented as of this encounter
--- OUTSIDE RECORDS SUMMARY | 2023-09-01 04:50 | External Medical Summary ---
Author Name Unknown Address Unknown Organization K01:[facility] [address] [place] [address] Laboratory Report Ordering Provider Test Date Status PAM MURILLO 04/10/2023 13:02:34 Final Observation Date Value Abnormality Reference (Units ) Status PSA 04/10/2023 13:02:34 4.38 Above high normal <4 .10 (ng/mL) Final Performing Location [facility] - [address] [place] [address]
--- OUTSIDE RECORDS SUMMARY | 2023-09-01 04:50 | External Medical Summary | Summary of Care ---
Author Name Unknown Organization [facility] Address [address] [place] [facility] [place] [address] Phone [phone] Care Team Providers Care Machined Parts Quality Inspector Name Role Phone Rhianna Huitron DO Primary Care Provider [phone] Reason for Visit * Reason Comments Outpatient Testing Encounter Details Date Type Department Care Team Description 04/10/2023 Laboratory Laboratory [address] [place] [address] [place] [id number] [place], Lab [address] [place] [address] Prostate cancer (HCC); Encounter for long-term (current) drug use Allergies Active Allergy Reactions Severity Noted Date Comments Brent Inhibitors Cough Low 11/26/2017 Alendronate Sodium Muscle pain 04/11/2019 Heartburn, constipation, joint pain Misoprostol Diarrhea 08/08/2003 Niacin Er 11/26/2010 Gas, hot flashes Pollen 01/01/2018 Watery eyes, sneezing Pravastatin 02/26/2007 Upset stomach, all .Statins Simvastatin 02/26/2007 Upset stomach documented as of this encounter (statuses as of 04/10/2023) Medications Medication Sig Dispensed Refills Start Date [...] as of this encounter (statuses as of 04/10/2023) Active Problems Problem Noted Date Diabetes mellitus without complication 0 04/10/2022 Dyslipidemia, [...] glucose 12/16/2005 Macular degeneration 12/02/1999 DISC DIS [id number] documented as of this encounter (statuses as of 04/10/2023) Resolved Problems Problem Noted Date Resolved Date Prediabetes 11/08/2018 04/17/2022 Overview: Per Prediabetes protocol #1 Morbid (severe) obesity due to excess calories 0 08/19/2017 03/09/2019 Infective otitis externa 09/08/2012 013 Cough 07/03/2012 08/18/2012 Benign neoplasm of colon 05/10/2007 019 Overview: adenomatous repeat colonoscopy in 5 years ARTHRITIS,RHEUMATOID 07/07/2006 05/12/2016 [id number] 07/07/2006 11/17/19 10 Overview: Renamed Per Clinical Trials Billing Project. Pt is a participant in the [facility] (Consortium of Rheumatology Researchers [place] national data collection study. For further information please call Dr Hari Clark or Julia White, RN, CCRC at [phone] [facility] RESEARCH OTHER*[id number] 07/07/2006 01/28/2010 Overview: Renamed Per Clinical Trials Billing Project. Pt is a participant in the [facility] (Consortium of Rheumatology [place] national data collection study. For further information please call Dr Hari Clark or Julia White, RN, CCRC at [phone] Hearing loss 12/02/1999 03/29/2013 documented as of this encounter (statuses as of 04/10/2023) Immunizations Name Administration Dates Next Due COVID-19 mRNA, LNP-s, No Pre serve, 2-Dose Series ([employer]) 06/14/2021,10/10/2020,09/12/2020 COVID-19, LNP-s, No Preserve , [...] Only Hematology Oncology Faby, Nurse Hem Onc [address], [place] [address] 05/19/2023 Office Visit Urology Vinay Sexton MD [address] [place] [address] 05/29/2023 Office Visit Family Medicine Rhianna Huitron DO [address] [place], [place] [phone] 08/14/2023 Nurse Only Urology Garrett, Nurse Urology [place] [address] [place] [address] 09/10/2023 Office Visit Rheumatology Mendel Wilson MD [address] [facility] [address] Pending Results Name Type Priority Associated Diagnoses Date /Time PSA Lab Routine Prostate cancer (HCC) 04/10/2023 1:02 PM EDT Scheduled Procedures Name Priority Associated Diagnoses [...] 01/30/2023, , 01/25/2021, Additional history exists GFR 03/26/2024 03/26/2023, 12/02, 12/13/2022, Additional history exists DTaP,Tdap,and Td Vaccines (3 - Td or Tdap) 12/04/2026 12/04/2016, 12/03/2006, 12/15/1996, Additional history exists Pneumococcal Vaccine: 65+ Years Completed 10/02/2014, 09/01/2011, 07/07/2006 Zoster Vaccines Completed 01/05/2020, 08/05, 10/02/2014 VITAMIN D LEVEL ONCE IN A LIFETIME-USE SMARTSET# [id number] Completed 05/27/2021, 09/07/2019, 01/10/2019, Additional history exists [...] Prostate cancer (HCC) Malignant neoplasm of prostate Encounter for long-term (current) drug use Encounter for long-term (current) use of other medications documented in this encounter Care Teams Machined Parts Quality Inspector Relationship Specialty Start Date End Date Rhianna Huitron, [address] [place] [address] PCP - General Family Medicine 07/11/19 documented as of this encounter
--- OUTSIDE RECORDS SUMMARY | 2023-09-01 04:50 | External Medical Summary ---
Author Name Unknown Address Unknown Organization K01:[facility] [place] [facility] [address] [place] [address] Laboratory Report Ordering Provider Test Date Status JOHNATHON CASILLAS 04/10/2023 13:02:34 Final Observation Date Value Abnormality Reference (Units ) Status Folic Acid 04/10/2023 13:02:34 >20.0 >4.5 (ng/ mL) Final Performing Location [facility] - [address] [place] [address]
--- OUTSIDE RECORDS SUMMARY | 2023-09-01 04:50 | External Medical Summary | Summary of Care ---
Author Name Unknown Organization [facility] Address [address] [place] [address] Phone [phone] Care Team Providers Care Electronic Prepress System Operator Name Role Phone Reggieruma Rhianna Keturah DOMINGUEZ Primary Care Provider [phone] Reason for Visit * Reason Onset Date Comments Films 04/08/2023 Encounter Details Date Type Department Care Team Description 04/08/2023 Telephone Radiology Film File [address], [place] [id number] Vinay Sexton MD 27 [facility] [address] [place] [address] Films Allergies Active Allergy Reactions Severity Noted Date Comments Brent Inhibitors Cough Low 11/26/2017 Alendronate Sodium Muscle pain 04/11/2019 Heartburn, constipation, joint pain Misoprostol Diarrhea 08/08/2003 Niacin Er 11/26/2010 Gas, hot flashes Pollen 01/01/2018 Watery eyes, sneezing Pravastatin 02/26/2007 Upset stomach, all .Statins Simvastatin 02/26/2007 Upset stomach documented as of this encounter (statuses as of 04/13/2023) Medications Medication Sig Dispensed Refills Start Date End Date Status ASPIR-81 81 MG PO TBEC 1 TABLET DAILY 0 06/19/2006 Active hydroCHLOROthiaz serene 12.5 MG Oral Capsule (Hydrodiuril) TAKE 1 CAPSULE BY MOUTH EVERY DAY 90 Capsule 3 06/06/2022 Active Folic Acid 1 MG Oral TabletIndication s:Arthritis, rheumatoid (HCC) Take 1 Tablet by mouth in the morning. 90 Tablet 3 10/01/2022 Active Clindamycin Phosphate 1 % External LotionIndication s:Folliculitis Apply topically to affected area 2 times a day. To affected area of skin. 60 mL 0 11/09/2022 Active Triamcinolone Acetonide 0.1 % External Cream (Aristocort)Kristyn [...] once weekly 65 Tablet 0 04/01/2023 Active Sulfamethoxazole -Trimethoprim 800-160 MG Oral Tablet (Bactrim DS) Take 1 Tablet by mouth in the morning and 1 Tablet before bedtime. Start 2 days prior to biopsy. 10 Tablet 0 12/10/2022 04/10/2023 Discontinued (Medication List Clean Up) Bicalutamide 50 MG Oral Tablet (Casodex) Take 1 Tablet by mouth in the morning. 30 Tablet 3 03/27/2023 04/10/2023 Discontinued (Medication List Clean Up) documented as of this encounter (statuses as of 04/13/2023) Active Problems Problem Noted Date Diabetes mellitus [...] glucose 12/16/2005 Macular degeneration 12/02/1999 DISC DIS [id number] documented as of this encounter (statuses as of 04/13/2023) Resolved Problems Problem Noted Date Resolved Date Prediabetes 11/08/2018 04/17/2022 Overview: Per Prediabetes protocol #1 Morbid (severe) obesity due to excess calories 0 08/19/2017 03/09/2019 Infective otitis externa 09/08/2012 013 Cough 07/03/2012 08/18/2012 Benign neoplasm of colon 05/10/2007 019 Overview: adenomatous repeat colonoscopy in 5 years ARTHRITIS,RHEUMATOID 07/07/2006 05/12/2016 [id number] 07/07/2006 11/17/19 10 Overview: Renamed Per Clinical Trials Billing Project. Pt is a participant in the [employer] (Consortium of Rheumatology Researchers of [place]) national data collection study. For further information please call Dr Hari Clark or Julia White, RN, CCRC at [phone] [facility] RESEARCH OTHER*[id number] 07/07/2006 01/28/2010 Overview: Renamed Per Clinical Trials Billing Project. Pt is a participant in the [employer] (Consortium of Rheumatology Researchers [place]) national data collection study. For further information please call Dr Hari Clark or Julia White, RN, CCRC at [phone] Hearing loss 12/02/1999 03/29/2013 documented as of this encounter (statuses as of 04/13/2023) Immunizations Name Administration Dates Next Due COVID-19 mRNA, LNP-s, No Pre serve, 2-Dose Series ([employer]) 06/14/2021,10/10/2020,09/12/2020 COVID-19, LNP-s, No Preserve , [...] Miscellaneous Notes * Telephone Encounter - KARLOS Johns - 04/08/2023 10:39 AM EDT [facility] Radiology/Oncology department requesting 03-24-23 Pet images be pushed through PACS. [place] Authorization to Release on file. Images pushed to [facility] PACS external connection. Associated report(s) not needed. documented in this encounter Plan of Treatment Upcoming Encounters Date Type Specialty Care Team Description 04/13/2023 Pharmacy Pharmacy [facility] Hem/Onc [address] [place] [address] Prostate cancer (HCC)* 04/16/2023 Nurse Only Hematology Oncology [place], Nurse Hem Onc [address] [place] [address] 04/17/2023 Pharmacy Pharmacy [facility] Hem/Onc [address] [place] [address] 05/19/2023 Office Visit Urology Vinay Sexton MD 27 [facility] [address] [place] [address] 05/29/2023 Office Visit Family Medicine Rhianna Huitron, [address] [place] [address] 08/14/2023 Nurse Only Urology Nurse Alexandro Tucker [address] [place] [address] 09/10/2023 Office Visit Rheumatology Mendel Wilson MD [address] [facility] [place] [address] Scheduled Procedures Name Priority Associated Diagnoses Date/Ti [...] D LEVEL ONCE IN A LIFETIME-USE SMARTSET# 40900 Completed 05/27/2021, 09/07/2019, 01/10/2019, Additional history exists [...] filedocumented as of this encounter Care Teams Electronic Prepress System Operator Relationship Specialty Start Date End Date Rhianna Huitron, DO [address] [place] [address] PCP - General Family Medicine 07/11/19 documented as of this encounter
--- OUTSIDE RECORDS SUMMARY | 2023-09-01 04:50 | External Medical Summary ---
Author Name Unknown Address Unknown Organization K01:[facility] - [address] [place] [address] Laboratory Report Ordering Provider Test Date Status JOHNATHON CASILLAS 04/10/2023 13:02:34 Final Observation Date Value Abnormality Reference (Units ) Status Ferritin 04/10/2023 13:02:34 342 30-400 (ng /mL) Final Performing Location [facility] - [address] [place] [address]
--- OUTSIDE RECORDS SUMMARY | 2023-09-01 04:50 | External Medical Summary ---
Author Name Unknown Address Unknown Organization K09:[facility] [place] [address] Laboratory Report Ordering Provider Test Date Status JOHNATHON CASILLAS 04/10/2023 13:02:34 Final Observation Date Value Abnormality Reference (Units ) Status SYNC LEUKOCYTES IN BLOOD BY AUTOMATED COUNT 04/10/2023 13:02:34 12.49 Above high normal 4.00-10.80 (K/uL) Final Segs 04/10/2023 13:02:34 70.3 40.0-75.0 (%) Final Lymphs % 04/10/2023 13:02:34 17.5 Below low normal 18.0-42.0 (%) Final Monos 04/10/2023 13:02:34 9.4 1.0-11.0 (%) Final Eosinophils 04/10/2023 13:02:34 2.5 0.0-6.0 (%) Final Basos 04/10/2023 13:02:34 0.3 0.0-2.0 (%) Final Absolute Segs 04/10/2023 13:02:34 8.78 Above high normal 1.80-7.70 (K/uL) Final Lymphs, absolute 04/10/2023 13:02:34 2.18 1.00-4.80 (K/ul) Final Monos, Abs 04/10/2023 13:02:34 1.18 Above high normal 0.00-1.10 (K/uL) Final Eos, Abs 04/10/2023 13:02:34 0.31 0.00-0.70 (K/uL) Final Basos, Abs 04/10/2023 13:02:34 0.04 0.00-0.20 (K/uL) Final Performing Location [facility] [place] [address]
--- OUTSIDE RECORDS SUMMARY | 2023-09-01 04:50 | External Medical Summary ---
Author Name Unknown Address Unknown Organization K01:[facility] [place] [address] [place] [address] Laboratory Report Ordering Provider Test Date Status JOHNATHON CASILLAS 04/10/2023 13:02:34 Final Observation Date Value Abnormality Reference (Units) Status Hepatitis B virus surface Ab [Units/volume] in Serum or Plasma by Immunoassay 04/10/2023 13:02:34 <3.5 (mIU/mL) Final Hepatitis B virus surface Ab [Presence] in Serum by Immunoassay 04/10/2023 13:02:34 Negative Final HEPATITIS B SURFACE ANTIBODY, INTERPRETATION 04/10/2023 13:02:34 NOT immune to Hepatitis B Virus Final POSITIVE: >=11.5 mIU/mL
INDETERMINATE: 8.5-<11.5 mIU/mL
NEGATIVE: <8.5 mIU/mL Performing Location [facility] [place] [address] [place] [address]
--- OUTSIDE RECORDS SUMMARY | 2023-09-01 04:50 | External Medical Summary ---
Author Name Unknown Address Unknown Organization K01:[facility] [place] - [address] [place] [address] [place] [address] Laboratory Report Ordering Provider Test Date Status SONJAJOHNATHON 04/10/2023 13:02:34 Final Observation Date Value Abnormality Reference (Units ) Status Hep B surface Ag 04/10/2023 13:02:34 Negative Neg ative Final Performing Location [facility] - [address] [place] [address]
--- OUTSIDE RECORDS SUMMARY | 2023-09-01 04:50 | External Medical Summary | Summary of Care ---
Author Name Unknown Organization [facility] Address [address] [facility] [address] Phone [phone] Care Team Providers Care Senior Php Software Developer Name Role Phone Elana Rhianna Keturah DOMINGUEZ Primary Care Provider [phone] Reason for Visit * Reason Onset Date Comments Test Results Lab 04/13/2023 Encounter Details Date Type Department Care Team Description 04/13/2023 Telephone Hematology/Oncology [facility] [address] [place] [address] Patrice Puente MD [address] [place] [facility] [place] [address] Test Results Lab Allergies Active Allergy Reactions [...] of 04/13/2023) Active Problems Problem Noted Date Prostate cancer [...] glucose 12/16/2005 Macular degeneration 12/02/1999 DISC DIS [id number] documented as of this encounter (statuses as of 04/13/2023) Resolved Problems Problem Noted Date Resolved Date Prediabetes 11/08/2018 04/17/2022 Overview: Per Prediabetes protocol #1 Morbid (severe) obesity due to excess calories 0 08/19/2017 03/09/2019 Infective otitis externa 09/08/2012 013 Cough 07/03/2012 08/18/2012 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 Pt is a participant in the [facility] (Consortium of Rheumatology Researchers [place]) national data collection study. For further information please call Dr Hari Clark or Julia White, RN, CCRC at [phone] [facility] RESEARCH OTHER*[id number] 07/07/2006 01/28/2010 Overview: Renamed Per Clinical Trials Billing Project. Pt is a participant in the [facility] (Consortium of Rheumatology Researchers [place] national data collection study. For further information please call Dr Hari Clark or Julia White, RN, CCRC at [phone] Hearing loss 12/02/1999 03/29/2013 documented as of this encounter (statuses as of 04/13/2023) Immunizations Name Administration Dates Next Due COVID-19 mRNA, LNP-s, No Pre serve, 2-Dose Series ([employer]) 06/14/2021,10/10/2020,09/12/2020 COVID-19, LNP-s, No Preserve , Yousuf-sucrose, [...] ----- Blood workup done on 04/10/2023: -WBC 82124, H&H of 8.1/26, MCV 96, Platelet count [id number] -BUN/Creat: 28/1.9, Calcium 9.3, normal LFT -PSA [...] Only Hematology Oncology Faby, Nurse Hem Onc [facility] [address] [place] [address] 04/17/2023 Pharmacy Pharm[place] [facility] [place]c [address], [place] [id number] 05/19/2023 Office Visit Urology Vinay Sexton MD [address] [place] [address] 05/29/2023 Office Visit Family Medicine Rhianna Huitron, [address] [place] [address] 08/14/2023 Nurse Only Urology Nurse [facility] [address] [facility] [place] [address] 09/10/2023 Office Visit Rheumatology Mendel Wilson MD [address] [facility] [place] [address] Scheduled Orders Name Type Priority Associated Diagnoses [...] D LEVEL ONCE IN A LIFETIME-USE SMARTSET# [id number] Completed 05/27/2021, 09/07/2019, 01/10/2019, Additional history exists [...] prostate documented in this encounter Care Teams Senior Php Software Developer Relationship Specialty Start Date End Date Rhianna Huitron, [address] [place] [address] PCP - General Family Medicine 07/11/19 documented as of this encounter
--- OUTSIDE RECORDS SUMMARY | 2023-09-01 04:50 | External Medical Summary ---
Author Name Unknown Address Unknown Organization K01:[facility] - [address] [place] [address] Laboratory Report Ordering Provider Test Date Status JOHNATHON CASILLAS 04/10/2023 13:02:34 Final Observation Date Value Abnormality Reference (Units ) Status Hepatitis B virus core Ab [Presence] in Serum 04/10/2023 13:02:34 Negative Negative Final Performing Location [facility] - [address] [place] [address]
--- OUTSIDE RECORDS SUMMARY | 2023-09-01 04:50 | External Medical Summary | Summary of Care ---
Author Name Unknown Organization [facility] Address [address] [facility] [place] [address] Phone [phone] Care Team Providers Care General Duty Nurse Name Role Phone OrlandoRhianna stinson Keturah DOMINGUEZ Primary Care Provider [phone] Encounter Details Date Type Department Care Team Description 04/13/2023 Orders Only Hematology/Oncology [facility] [place] [address] [facility] [place] [address] Patrice Puente MD [address] [place] [address] Allergies Active Allergy Reactions Severity Noted Date [...] glucose 12/16/2005 Macular degeneration 12/02/1999 DISC DIS [id number] documented as of this encounter (statuses as of 04/13/2023) Resolved Problems Problem Noted Date Resolved Date Prediabetes 11/08/2018 04/17/2022 Overview: Per Prediabetes protocol #1 Morbid (severe) obesity due to excess calories 0 08/19/2017 03/09/2019 Infective otitis externa 09/08/2012 013 Cough 07/03/2012 08/18/2012 Benign neoplasm of colon 05/10/2007 019 Overview: adenomatous repeat colonoscopy in 5 years ARTHRITIS,RHEUMATOID 07/07/2006 05/12/2016 [id number] 07/07/2006 11/17/19 10 Overview: Renamed Per Clinical Trials Billing Project. Pt is a participant in the [facility] (Consortium of Rheumatology Researchers of [facility]) national data collection study. For further information please call Dr Hari Clark or Julia White, RN, CCRC at [phone] [facility] RESEARCH OTHER*[id number] 07/07/2006 01/28/2010 Overview: Renamed Per Clinical Trials Billing Project. Pt is a participant in the [employer] (Consortium of Rheumatology Researchers of [facility]) national data collection study. For further information please call Dr Hari Clark or Julia White, RN, CCRC at [phone] Hearing loss 12/02/1999 03/29/2013 documented as of this encounter (statuses as of 04/13/2023) Immunizations Name Administration Dates Next Due COVID-19 mRNA, LNP-s, No Pre serve, 2-Dose Series ([employer]) 06/14/2021,10/10/2020,09/12/2020 COVID-19, LNP-s, No Preserve , Yousuf-sucrose, [...] Specialty Care Team Description 04/13/2023 [facility] Hem[facility]Onc [address] [place] [address] Prostate cancer (HCC)* 04/16/2023 Nurse Only Hematology Oncology [place], Nurse Hem Onc [address] [facility] [place] [address] 04/17/2023 Pharmacy Pharmacy [facility] [place] Hem/Onc [address] [place] [address] 05/19/2023 Office Visit Urology Vinay Sexton MD [address] [place] [address] 05/29/2023 Office Visit Family Medicine Rhianna Huitron, [address] [place] [address] 08/14/2023 Nurse Only Urology Nurse [facility] [place] [address] [place] [address] 09/10/2023 Office Visit Rheumatology Mendel Wilson MD [address] [place] [address] Scheduled Procedures Name Priority Associated Diagnoses Date/Ti [...] D LEVEL ONCE IN A LIFETIME-USE SMARTSET# [id number] Completed 05/27/2021, 09/07/2019, 01/10/2019, Additional history exists [...] filedocumented as of this encounter Care Teams General Duty Nurse Relationship Specialty Start Date End Date Rhianna Huitron, DO [address] [place] [address] PCP - General Family Medicine 07/11/19 documented as of this encounter
--- OUTSIDE RECORDS SUMMARY | 2023-09-01 04:50 | External Medical Summary | Summary of Care ---
Author Name Unknown Organization [facility] Address [address] [place] [address] Phone [phone] Care Team Providers Care Metal Can Inspector Name Role Phone [place] Rhianna Keturah DOMINGUEZ Primary Care Provider [phone] Reason for Visit * Reason Comments Consultation Consultation - Prost ate Cancer * Evaluate & Treat - Unlimited Visits (Within 10 days (routine)) - Pending Review Specialty Diagnoses / Procedures Referred By Clarke t Referred To Contact Hematology/Oncology / Hematology Oncology Diagnoses Prostate cancer (HCC) Vinay Sexton MD [address] [facility] [address] [place] [address] Referral ID Status Reason Start Date Expiration Date Visits Requested Visits Authorized [id number] Pending Review Specialty Services Required 03/27/[phone] Encounter Details Date Type Department Care Team Description 04/10/2023 Office Visit Hematology/Oncology State Karel Driscoll [address] [facility] [place] [address] Patrice Puente MD [address] [facility] [place] [address] Prostate cancer (HCC)*; Anemia, unspecified type Allergies Active Allergy Reactions [...] glucose 12/16/2005 Macular degeneration 12/02/1999 DISC DIS [id number] documented as of this encounter (statuses as of 04/10/2023) Resolved Problems Problem Noted Date Resolved Date Prediabetes 11/08/2018 04/17/2022 Overview: Per Prediabetes protocol #1 Morbid (severe) obesity due to excess calories 0 08/19/2017 03/09/2019 Infective otitis externa 09/08/2012 013 Cough 07/03/2012 08/18/2012 Benign neoplasm of colon 05/10/2007 019 Overview: adenomatous repeat colonoscopy in 5 years ARTHRITIS,RHEUMATOID 07/07/2006 05/12/2016 [id number] 07/07/2006 11/17/19 10 Overview: Renamed Per Clinical Trials Billing Project. Pt is a participant in the [employer] ([employer]ortium of [employer] [place]) national data collection study. For further information please call Dr Hari Clark or Julia White, RN, CCRC at [phone] [employer] RESEARCH OTHER*[id number] 07/07/2006 01/28/2010 Overview: Renamed Per Clinical Trials Billing Project. Pt is a participant in the [employer] ([employer]ortium of [employer]ology [employer] [place]) national data collection study. For further information please call Dr Hari Clark or Julia White RN, [facility] at [phone] Hearing loss 12/02/1999 03/29/2013 documented as of [...] Passive Smoke Exposure: Past Smokeless Tobacco: Never Tobacco Cessation:Counseling Given: Not Answered Comments:occasional cigar Alcohol Use Standard Drinks/Week Comments [...] Sign Reading Time Taken Comments Blood Pressure 150/76 04/10/2023 11:57 AM EDT Pulse 104 04/10/2023 11:57 AM EDT Temperature 36.4 C (97.6 F) 04/10/2023 11:57 AM E DT Respiratory Rate 16 04/10/2023 11:57 AM EDT Oxygen Saturation 98% 04/10/2023 11:57 AM EDT Inhaled Oxygen Concentration - - Weight 140.4 kg (309 lb 8 oz) 04/10/2023 11:57 A M EDT Height 189.2 cm (6' 2.5") 04/10/2023 11:57 AM ED T Body Mass Index 39.21 04/10/2023 11:57 AM EDT documented in this encounter Progress Notes * Patrice Puente MD - 04/10/2023 12:15 PM EDT JANES SAMUEL MR # [id number] :1945 78-year-old male, REASON FOR CONSULTATION: Consultation for Janes Samuel requested by Dr. Vinay Sexton for evaluation and discussion of treatment options for prostate cancer Date of consultation:04/10/2023 DIAGNOSIS: Prostate cancer, Avoca score 4+5, right iliac chain lymph node measuring about 2 cm in the imaging study. PSA was around 8.49 in December 2022 CURRENT TREATMENT: Received 1st treatment with Lupron (30 mg ) on 04/08/2023. -could not tolerate Casodex, he took It for about 1 week before that but he stopped because of somedizziness and some noticed some blood in the stool which may not be related to that. He will be seen by radiation oncologist at [facility] I am also planning for Zytiga and prednisone combination. (planning start after the radiation treatment is over). DIAGNOSTIC WORKUP: - PSA--> 5.1 ( 04/10/2022)--> 8.49 (12/10/2022). Biopsy from the prostate gland on 03/16/2023 ) --> prostatic adenocarcinoma Avoca score 4+5, all 15 cores positive for [...] He has come the clinic for the initial evaluation, accompanied by his son in the office Currently he is self-catheterization for the bladder outlet obstruction, he does about 3 to 4 timesa day, no hematuria, frequent UTI noted, no nausea no vomiting, no fever, current weight around 309lb, chronic bilateral leg edema present. He is on diuretic therapy with hydrochlorothiazide. No increasing back pain or bone pain. No new cardiac or pulmonary symptoms. No headache. Ambulates slowly,ECOG PS 1 to 2. REVIEW OF SYSTEMS: GENERAL: No change in weight, no weakness, fatigue present no fever, sweats or chills. SKIN: No skin rash, no bruising. HEAD: No new headache, no dizziness. EYES: No recent change in the vision, no diplopia, EARS: No earache no tinnitus, NOSE: No epistaxis, No nasal discharge or stuffiness, MOUTH: No sores, no dysphagia, no hoarseness of voice, NECK: No lumps, No swelling in thyroid area. No stiffness. PULMONARY: No cough, No shortness of breath, no hemoptysis, no chest pain, No wheezing. CARDIOVASCULAR: No anginal chest pain, no PND, no orthopnea. No palpitation, leg edema. No syncope. GASTROINTESTINAL: No abdominal pain, no nausea or vomiting. No diarrhea, No constipation. He had some fresh blood in the stool. No abdominal distention. UROLOGIC: No burning urination. No hematuria. MUSCULOSKELETAL: DJD HEMATOLOGIC: No anemia, no bleeding disorder, No bruising. NEUROLOGIC: No seizures, no focal weakness, no speech difficulty, No memory disturbances. No tingling or numbness of the extremities. PSYCHIATRIC: No depression. No anxiety. No psychosis. Past Medical History: Diagnosis Date Arthritis, rheumatoid [...] performed by Teddy Rizvi MD at ENDOSCOPY [facility] COLONOSCOPY, DIAGNOSTIC (RECTUM) 01/21/2019 diverticulosis, repeat 5 yrs/COLONOSCOPY FLEXIBLE PROXIMAL DIAGNOSTIC performed by Teddy Rizvi MD at ENDOSCOPY [facility] REMOVE TONSILS & ADENOIDS, AGE 12+ 1979 Tonsillectomy/Adenoids,12+ Y/O Current Outpatient Medications Medication Sig Dispense Refill ASPIR-81 81 MG PO TBEC 1 TABLET DAILY 0 hydroCHLOROthiazide 12.5 MG Oral Capsule (Hydrodiuril) TAKE 1 CAPSULE BY MOUTH EVERY DAY 90 Capsule3 Folic Acid 1 MG Oral Tablet Take 1 Tablet by mouth in the morning. 90 Tablet 3 Clindamycin Phosphate 1 % External Lotion Apply topically to affected area 2 times a day. To affected area of skin. 60 mL 0 Triamcinolone Acetonide 0.1 % External Cream (Aristocort) Apply topically to affected area 2 times a day. To affected area. 30 g 1 Sulfamethoxazole-Trimethoprim 800-160 MG Oral Tablet (Bactrim DS) Take 1 Tablet by mouth in the morning and 1 Tablet before bedtime. Start 2 days prior to biopsy. (Patient not taking: Reported on 03/27/2023) 10 Tablet 0 Tamsulosin HCl 0.4 MG Oral Capsule (Flomax) Take 1 Capsule by mouth in the morning. 90 Capsule 3 Losartan Potassium 25 MG Oral Tablet (Cozaar) TAKE 1/2 TABLET BY MOUTH EVERY DAY 45 Tablet 1 Bicalutamide 50 MG Oral Tablet (Casodex) Take 1 Tablet by mouth in the morning. 30 Tablet 3 Methotrexate Sodium 2.5 MG Oral Tablet Take 5 tablets by mouth once weekly 65 Tablet 0 No current facility-administered medications for this visit. [...] on file Occupational History Employer: [employer] Tobacco Use Smoking status: Former Packs/day: 1.00 Years: 35.00 Pack years: 35.00 Types: Cigarettes Quit date: 08/03/1997 Years since quittin.6 Passive exposure: Past Smokeless tobacco: Never Tobacco [...] on file Food Insecurity: No Food Insecurity Worried About Running Out of Food in the Last Year: Never true Ran Out of Food in the Last Year: Never true Transportation Needs: Not on file Physical Activity: Not on file Stress: Not on file Social Connections: Not on file Intimate Partner Violence: Not on file Housing Stability: Not on file On Exam: BP 150/76 (BP Site: Left Arm, BP Position: Sitting, BP Cuff Size: Large) | Pulse 104 | Temp 36.4 C (97.6 F) (Tympanic) | Resp 16 | Ht 1.892 m (6' 2.5") | Wt (!) 140.4 kg (309 lb 8 oz) | SpO2 98% | BMI 39.21 kg/m | BSA 2.72 m .Constitutional: Patient is alert, cooperative and [...] 2.4 on 03/26/2023. Blood workup done on 04/10/2020: -BUN/Creat: 20/1.9, normal liver function test -WBC 12.4, H&H of 8.1/26, Platelet count 142091. IMAGING: As described above. ASSESSMENT AND PLAN: 78-year-old male, a case of prostatic adenocarcinoma Avoca score 4+5, imaging study also showed right iliac chain lymph node measuring about 2 cm, N1 disease, PSA was around 8. No evidence of distant metastatic disease on PET-CT scan I reviewed with him and his son regarding the diagnostic workup done in his case, no family historyof any kind of cancer diagnosis in his side. We reviewed pathological findings, imaging studies. Worsening kidney function test noted because of the bladder outlet obstruction, serum creatinine level increased on 2.4 mg/dL now with the frequent self catheterize, kidney function improved with serum creatinine dropped down to around 1.9 mg/dL Blood workup done today also showed evidence of anemia with hemoglobin level around 8.1 I would like to get reticulocyte count, B12, folic acid Ferritin, iron profile for further evaluation. Received 1st dose of Lupron recently, could not tolerate calcified, he took Casodex for 1 week and then stopped because of increasing dizziness and some blood in the stool. (I do not think blood in the stool is related to the Casodex therapy he has underlying diverticular disease, hemorrhoids maybethe cause of the bleeding) He will be seen by radiation oncologist soon Talked to them about role of Zytiga and prednisone combination that can be considered in his case, reviewed with them regarding treatment schedule side effect profile he is in agreement for that I am planning to start Zytiga and prednisone once he is done with radiation treatment Oral chemotherapy teaching in the next 1 week or so. Hepatitis-B serology done today. Will see him in about 3 months. Thanks for the consultation. Dr. Patrice Puente Hem/Onc (This note was completed using the dictation program Fluency Direct. As such, there may be misspellings word substitutions, or other variations that should not change the essence of the clinical content of this encounter note. If there is need for further clarification, please direct questions to the provider listed above.) documented in this encounter Nursing Notes * Mari Boswell, [facility] - 04/10/2023 11:58 AM EDT Patient identifed by name and birthdate Do you have any concerns about pain management for today's visit? No Living Will or Advance Directive for Health Care as noted on the problem list. [facility] is a way you can talk to your provider on line through e-mail. Would you like to sign up? I can activate it for you? ALREADY ACTIVE Filed Vitals: 04/10/23 1157 BP: 150/76 Pulse: 104 Resp: 16 Temp: 36.4 C (97.6 F) TempSrc: Tympanic SpO2: 98% Weight: (!) 140.4 kg (309 lb 8 oz) Height: 1.892 m (6' 2.5") Patient was instructed to not get up [...] Only Hematology Oncology Faby, Nurse Hem Onc [facility] [address] [place] [address] 05/19/2023 Office Visit [facility] [address] [place] [address] 05/29/2023 Office Visit Family Medicine Rhianna Huitron, DO [address] [place] [address] 08/14/2023 Nurse Only Urology Garrett, Nurse Urology [place] [address] [place] [address] 09/10/2023 Office Visit Rheumatology Mendel Wilson MD [address] [place] [address] Pending Results Name Type Priority Associated Diagnoses Date /Time HEPATITIS B SURFACE ANTIGEN Lab Routine Prostate cancer (HCC) 04/10/2023 1:02 PM EDT HEPATITIS B SURFACE ANTIBODY Lab Routine Prostate cancer (HCC) 04/10/2023 1:02 PM EDT HEPATITIS B CORE ANTIBODIES IGG AND IGM Lab Routine Prostate cancer (HCC) 04/10/2023 1:02 PM EDT IRON SCREEN, INCLUDING TIBC Lab Routine Prostate cancer (HCC) Anemia, unspecified type 04/10/2023 1:02 PM EDT RETICULOCYTE PANEL Lab Routine Prostate cancer (HCC) Anemia, unspecified type 04/10/2023 1:02 PM EDT FERRITIN Lab Routine Prostate cancer (HCC) Anemia, unspecified type 04/10/2023 1:02 PM EDT VITAMIN B12 Lab Routine Prostate cancer (HCC) Anemia, unspecified type 04/10/2023 1:02 PM EDT FOLIC ACID Lab Routine Prostate cancer (HCC) Anemia, unspecified type 04/10/2023 1:02 PM EDT Scheduled Orders Name Type Priority Associated Diagnoses Orde r Schedule IRON SCREEN, INCLUDING TIBC Lab Routine Prostate cancer (HCC) Anemia, unspecified type Expected: 04/10/2023, Expires: 04/10/2024 RETICULOCYTE PANEL Lab Routine Prostate cancer (HCC) Anemia, unspecified type Expected: 04/10/2023, Expires: 04/10/2024 FERRITIN Lab Routine Prostate cancer (HCC) Anemia, unspecified type Expected: 04/10/2023, Expires: 04/10/2024 VITAMIN B12 Lab Routine Prostate cancer (HCC) Anemia, unspecified type Expected: 04/10/2023, Expires: 04/10/2024 FOLIC ACID Lab Routine Prostate cancer (HCC) Anemia, unspecified type Expected: 04/10/2023, Expires: 04/10/2024 Scheduled Procedures Name Priority Associated Diagnoses Date/Ti me COLONOSCOPY FLEXIBLE PROXIMAL DIAGNOSTIC Recall Hx of colonic polyps Health Maintenance Due Date Last Done Comments DXA Scan 01/10/2021 01/10/2019, 1212/2005, 07/07/2006 Depression Screening 03/13/2021 03/13/2020 Influenza Vaccine (FLU shot) (#1) 2023 05/08/2022, 05/07/2021, 04/17/2020, Additional history exists Albumin/Creatinine Ratio 04/10/2023 04/10/2022, 10/2006 HbA1c 06/26/2023 12/24/2022, 0412/2022, 04/10/2022, Additional history exists Diabetic Foot Exam [...] D LEVEL ONCE IN A LIFETIME-USE SMARTSET# 00209 Completed 05/27/2021, 09/07/2019, 01/10/2019, Additional history exists [...] Date/Time Associated Diagnosis Comments DIFFERENTIAL, AUTOMATED STAT 04/10/2023 1:02 PM EDT Prostate cancer (HCC) COMPREHENSIVE METABOLIC PANEL STAT 04/10/2023 1:02 PM EDT Prostate cancer (HCC) CBC WITH WBC DIFFERENTIAL STAT 04/10/2023 1:02 PM EDT Prostate cancer (HCC) CBC STAT 04/10/2023 1:02 PM EDT Prostate cancer (HCC) DIFFERENTIAL, TECHNOLOGIST REVIEW Routine 04/10/2023 1:02 PM EDT Prostate cancer (HCC) documented in this encounter Results * DIFFERENTIAL, TECHNOLOGIST REVIEW (04/10/2023 1:02 PM EDT) Pathologist [facility] 04/10/2023 1:29 PM EDT [facility] 56-02 Blood Venous blood specimen / Unknown Venipuncture / Unknown 04/10/2023 1:02 PM EDT 04/10/2023 1:02 PM EDT Patrice Puente MD LAB BLOOD ORDERABLES [facility] [address] [place], [place] [id number] * (ABNORMAL) DIFFERENTIAL, AUTOMATED (04/10/2023 1:02 PM EDT) WBC 12.49(H) 4.00 - 10.80 K/uL 04/10/2023 1:29 PM EDT [facility] 56-02 Neutrophils % 70.3 40.0 - 75.0 % 04/10/2023 1:29 PM EDT [facility] 56 Lymphocytes % 17.5(L) 18.0 - 42.0 % 04/10/2023 1:29 PM EDT [facility] 56-02 Monocytes % 9.4 1.0 - 11.0 % 04/10/2023 1:29 PM EDT [facility] 56- Eosinophils % 2.5 0.0 - 6.0 % 04/10/2023 1:29 PM EDT [facility] 56-02 Basophils % 0.3 0.0 - 2.0 % 04/10/2023 1:29 PM EDT [facility] 56-02 Absolute Neutrophils 8.78(H) 1.80 - 7.70 K/uL 04/10/2023 1:29 PM EDT [facility] 56-02 Absolute Lymphocytes 2.18 1.00 - 4.80 K/ul 04/10/2023 1:29 PM EDT [facility] 56-02 Absolute Monocytes 1.18(H) 0.00 - 1.10 K/uL 04/10/2023 1:29 PM EDT [facility] 56-02 Absolute Eosinophils 0.31 0.00 - 0.70 K/uL 04/10/2023 1:29 PM EDT [facility] 56-02 Absolute Basophils 0.04 0.00 - 0.20 K/uL 04/10/2023 1:29 PM EDT [facility] 56- Blood Venous blood specimen / Unknown Venipuncture / Unknown 04/10/2023 1:02 PM EDT 04/10/2023 1:02 PM EDT Patrice Puente MD LAB BLOOD ORDERABLES [place] [address] [place], [place] [id number] * (ABNORMAL) CBC (04/10/2023 1:02 PM EDT) WBC 12.49(H) 4.00 - 10.80 K/uL 04/10/2023 1:29 PM EDT [place] [address] RBC 2.70 4.50 - 5.25 M/uL 04/10/2023 1:29 PM EDT [place] [address] HGB 8.1(L) 14.0 - 16.8 g/dL 04/10/2023 1:29 PM EDT [place] [address] HCT 26.0(L) 40.0 - 48.4 % 04/10/2023 1:29 PM EDT [address] MCV 96.3 82.0 - 99.5 fL 04/10/2023 1:29 PM EDT [place] [address] MCH 30.0 27.0 - 34.0 pg 04/10/2023 1:29 PM EDT [place] [address] MCHC 31.2 32.0 - 36.0 g/dL 04/10/2023 1:29 PM EDT [address] RDW 16.5 11.5 - 15.5 % 04/10/2023 1:29 PM EDT [facility] 56 PLT 359 140 - 400 K/uL 04/10/2023 1:29 PM EDT [place] [address] MPV 10.0 6.6 - 11.1 fL 04/10/2023 1:29 PM EDT [facility] Blood Venous blood specimen / Unknown Venipuncture / Unknown 04/10/2023 1:02 PM EDT 04/10/2023 1:02 PM EDT Patrice Puente MD LAB BLOOD ORDERABLES [place] [address] [place] [address] * (ABNORMAL) COMPREHENSIVE METABOLIC PANEL (04/10/2023 1:02 PM EDT) BUN 28(H) 6 - 20 mg/dL 04/10/2023 1:28 PM EDT [place] [address] Creatinine 1.9(H) 0.6 - 1.2 mg/dL 04/10/2023 1:28 PM EDT [place] [address] Estimated Glomerular Filtration Rate 37(L) >=60 mL/min 04/10/2023 1:28 PM EDT [address] Comment:eGFR is calculated b ased on the CKD-EPI 2020 equation Sodium 135 135 - 146 mmol/L 04/10/2023 1:28 PM EDT [address] Potassium 3.2(L) 3.5 - 5.1 mmol/L 04/10/2023 1:[address]T [address] Chloride 96(L) 98 - 107 mmol/L 04/10/2023 1:[address]T [address] CO2 23 22 - 32 mmol/L 04/10/2023 1:28 PM EDT [place] [address] Anion Gap 16(H) 7 - 15 mmol/L 04/10/2023 1:28 PM EDT [address] Glucose 120 70 - 120 mg/dL 04/10/2023 1:28 PM EDT [address] Albumin 3.8 3.8 - 5.0 g/dL 04/10/2023 1:[address] AST 14 10 - 50 U/L 04/10/2023 1:28 PM EDT [address] Alkaline Phosphatase 87 35 - 130 U/L 04/10/2023 1:28 PM EDT [address] Bilirubin, Total 0.3 <=1.2 mg/dL 04/10/2023 1:28 PM EDT [address] Calcium 9.3 8.4 - 10.2 mg/dL 04/10/2023 1:28 PM EDT [facility] 56- Protein 7.1 6.0 - 8.3 g/dL 04/10/2023 1:28 PM EDT [facility] 56 ALT 9(L) 10 - 50 U/L 04/10/2023 1:28 PM EDT [facility] 56 Blood Venous blood specimen / Unknown Venipuncture / Unknown 04/10/2023 1:02 PM EDT 04/10/2023 1:02 PM EDT Patrice Puente MD LAB BLOOD ORDERABLES [facility] [address] [place] [address] documented in this encounter Visit Diagnoses Diagnosis Prostate cancer (HCC)- Primary Malignant neoplasm of prostate Anemia, unspecified type documented in this encounter Care Teams Metal Can Inspector Relationship Specialty Start Date End Date Rhianna Huitron, [address] [place] [address] PCP - General Family Medicine 07/11/19 documented as of this encounter
--- OUTSIDE RECORDS SUMMARY | 2023-09-01 04:50 | External Medical Summary ---
Author Name Unknown Address Unknown Organization K09:[facility] [place] [address] Laboratory Report Ordering Provider Test Date Status JOHNATHON CASILLAS 04/10/2023 13:02:34 Final Observation Date Value Abnormality Reference (Units ) Status Nucleated erythrocytes/100 leukocytes [Ratio] in Blood by Automated count 04/10/2023 13:02:34 Final Performing Location [facility] [place] [address]
--- OUTSIDE RECORDS SUMMARY | 2023-09-01 04:50 | External Medical Summary | Summary of Care ---
Author Name Unknown Organization [facility] Address [address] [place] [address] Phone [phone] Care Team Providers Care Confectionery Drops Machine Operator Name Role Phone Rhianna Huitron DO Primary Care Provider [phone] Reason for Visit * Reason Comments Medication Management Encounter Details Date Type Department Care Team Description 04/13/2023 Pharmacy Pharmacy Hematology Oncology [facility] [address] [place] [address] [facility], [facility] Hem/Onc [address] [place], [place] [id number] Prostate cancer (HCC)* Allergies Active Allergy Reactions [...] glucose 12/16/2005 Macular degeneration 12/02/1999 DISC DIS [id number] documented as of this encounter (statuses as of 04/13/2023) Resolved Problems Problem Noted Date Resolved Date Prediabetes 11/08/2018 04/17/2022 Overview: Per Prediabetes protocol #1 Morbid (severe) obesity due to excess calories 0 08/19/2017 03/09/2019 Infective otitis externa 09/08/2012 013 Cough 07/03/2012 08/18/2012 Benign neoplasm of colon 05/10/2007 019 Overview: adenomatous repeat colonoscopy in 5 years ARTHRITIS,RHEUMATOID 07/07/2006 05/12/2016 [id number] 07/07/2006 11/17/19 10 Overview: Renamed Per Clinical Trials Billing Project. Pt is a participant in the [facility] (Consortium of Rheumatology Researchers [place]) national data collection study. For further information please call Dr Hari Clark or Julia White, RN, CCRC at [phone] [facility] RESEARCH OTHER*[id number] 07/07/2006 01/28/2010 Overview: Renamed Per Clinical Trials Billing Project. Pt is a participant in the [facility] (Consortium of Rheumatology Researchers [place] national data collection study. For further information please call Dr Hari Clark or Julia White, RN, CCRC at [phone] Hearing loss 12/02/1999 03/29/2013 documented as of this encounter (statuses as of 04/13/2023) Immunizations Name Administration Dates Next Due COVID-19 mRNA, LNP-s, No Pre serve, 2-Dose Series ([employer]) 06/14/2021,10/10/2020,09/12/2020 COVID-19, LNP-s, No Preserve , Yousuf-sucrose, Ages 12+ (Pfizer) 12/25/2021 Covid-19, Mrna, Lnp-s, Pf, B ivalent, 30 Mcg, IM, 12 yrs and above ([employer]) 05/23/2022 Pneumococcal Conjugate Vacc, 13 Valent (Prevnar) [...] this encounter Progress Notes * Enedina Ordoñez, [facility] - 04/13/2023 8:55 AM EDT MEDICATION THERAPY MANAGEMENT ABIRATERONE INITIAL INTAKE NOTE Markus Wharton [id number] Patient Phone Numbers Communication: Chart review Treatment: Medication: Abiraterone (Zytiga) Indication/Staging/Diagnosis Code: prostate cancer/ C61 Dose: 1000mg daily Administration: empty stomach (1 hour before or 2 hours after a meal) Start Date: TBD (after RT completion) Primary Rn Transitional/Oncologist: Dr. Leon Puente Additional Therapy: Prednisone 5mg daily Lupron Supportive Care Meds: None Prophylactic Meds: Losartain 12.5mg daily HCTZ 12.5mg daily Review of therapy: Line of therapy: first Previous therapy: 04/08/23-present: Lupron Reviewed dosage prescribed for appropriateness (based on indication, hepatic function,renal function, etc): no changes Are appropriate supportive care medications prescribed? No, none needed Are appropriate prophylactic medications prescribed? Yes Have baseline labs/tests been obtained? Yes Has hepatitis B screening been completed? Yes Potential drug-drug drug-herbal, drug-food, drug-disease interactions: Yes, Tamsulosin / abiraterone: may increase the serum concentration of Tamsulosin Recommendation: Monitor for increased tamsulosin effects (eg, hypotension, orthostasis) Action: Will cemetery counselor pt on DDI and monitor for hypotension The Hematology/Oncology Oral Chemotherapy Clinic will assess medication compliance at each patient encounter Assessment and Plan: Per OV 04/10/23, abiraterone/prednisone to start after RT at [facility] complete MTM to follow up 04/17/23 to assess consent completion, beacon plan signature, and auth status Yes/no Date Action Taken Catherine plan entered? Yes 04/13/23 Consent completed? no To be completed at OV 04/16/23 Intro/med rec completed? Precert completed? Test claim completed? Financial assistance needed? Physician signature? Rx released? Education completed? Follow up: 04/17 Enedina Ordoñez, PharmD, BCOP Clinical Pharmacist, [facility] Oral Chemotherapy [facility] 04/13/2023, 9:07 AM Monitoring Parameters: Estimated CrCl Serum creatinine: 1.9 [...] 70 74 76 Time Spent on Encounter: 16 - 20 minutes Encounter Group: Oncology Encounter Interventions Item Category: Oral Chemotherapy Abiraterone Problem/Rationale: Indication: Needs additional medication therapy - Untreated condition Catherine Plan Review: Initial Plan/upload Pharmacist Intervention(s): Drug Interaction Screen, Lab monitoring, and Referral review Magnitude of Intervention: Monitoring with direction (Level 1) documented in this encounter Plan of Treatment Upcoming Encounters Date Type Specialty Care Team Description 04/16/2023 Nurse Only Hematology Oncology [place], Nurse Hem Onc Scene [address] [place] [address] 04/17/2023 Pharmacy Pharmacy [facility] [address] [facility] [address] 05/19/2023 Office Visit Urology Vinay Sexton MD [address] [place] [address] [place] [address] 05/29/2023 Office Visit Family Medicine Rhianna Huitron [facility] [address] [facility] [address] 08/14/2023 Nurse Only Urology Nurse [facility] [place] [address] [place] [address] 09/10/2023 Office Visit Rheumatology Mendel Wilson MD [address] [place] [address] Scheduled Procedures Name Priority Associated Diagnoses Date/Ti [...] D LEVEL ONCE IN A LIFETIME-USE SMARTSET# 61614 Completed 05/27/2021, 09/07/2019, 01/10/2019, Additional history exists [...] prostate documented in this encounter Care Teams Confectionery Drops Machine Operator Relationship Specialty Start Date End Date Rhianna Huitron, [address] [place] [address] PCP - General Family Medicine 07/11/19 documented as of this encounter
--- OUTSIDE RECORDS SUMMARY | 2023-09-01 04:50 | External Medical Summary | Summary of Care ---
Author Name Unknown Organization [facility] Address [address] [place] [address] Phone [phone] Care Team Providers Care Shot Bagger Name Role Phone Orlandomilad Rhianna Keturah DOMINGUEZ Primary Care Provider Reason for Visit * Reason Comments Consultation Consultation - Prost ate Cancer * Evaluate & Treat - Unlimited Visits (Within 10 days (routine)) - Pending Review Specialty Diagnoses / Procedures Referred By Clarke t Referred To Contact Hematology/Oncology / Hematology Oncology Diagnoses Prostate cancer (HCC) Vinay Sexton MD [address] [facility] [address] [place] [address] Referral ID Status Reason Start Date Expiration Date Visits Requested Visits Authorized [id number] Pending Review Specialty Services Required 03/27/[phone] Encounter Details Date Type Department Care Team Description 04/10/2023 Office Visit Hematology/Oncology [place] K[facility] Driscoll [address] [facility] [place] [address] Sonja Puente MD [address] [facility] [place] [address] Prostate cancer (HCC)*; Anemia, unspecified type Allergies [...] glucose 12/16/2005 Macular degeneration 12/02/1999 DISC DIS [id number] documented as of this encounter (statuses as of 04/10/2023) Resolved Problems Problem Noted Date Resolved Date Prediabetes 11/08/2018 04/17/2022 Overview: Per Prediabetes protocol #1 Morbid (severe) obesity due to excess calories 0 08/19/2017 03/09/2019 Infective otitis externa 09/08/2012 013 Cough 07/03/2012 08/18/2012 Benign neoplasm of colon 05/10/2007 019 Overview: adenomatous repeat colonoscopy in 5 years ARTHRITIS,RHEUMATOID 07/07/2006 05/12/2016 [id number] 07/07/2006 11/17/19 10 Overview: Renamed Per Clinical Trials Billing Project. Pt is a participant in the [employer] (Consortium of Rheumatology Researchers [place]) national data collection study. For further information please call Dr Hari Clark or Julia White, RN, CCRC at [phone] [facility] RESEARCH OTHER*[id number] 07/07/2006 01/28/2010 Overview: Renamed Per Clinical Trials Billing Project. Pt is a participant in the [employer] (Consortium of Rheumatology [place] national data collection study. For further information please call Dr Hari Clark or Julia White RN, [facility] at [phone] Hearing loss 12/02/1999 03/29/2013 documented as of [...] documented in this encounter Progress Notes * Sonja Puente MD - 04/10/2023 12:15 PM EDT JANES SAMUEL MR # [id number] :1945 78-year-old male, REASON FOR CONSULTATION: Consultation for Janes Cydney Samuel requested by Dr. Vinay Sexton for evaluation and discussion of treatment options for prostate cancer Date of consultation:04/10/2023 DIAGNOSIS: Prostate cancer, Evens [...] oncologist at [facility] I am also planning for Zytiga and prednisone combination. (planning start after the radiation treatment is over). DIAGNOSTIC WORKUP: - PSA--> 5.1 ( 04/10/2022)--> 8.49 (12/10/2022). Biopsy from the prostate gland on 03/16/2023 ) --> prostatic adenocarcinoma [place] score 4+5, all 15 cores positive for [...] performed by Teddy Rizvi MD at ENDOSCOPY [facility] COLONOSCOPY, DIAGNOSTIC (RECTUM) 01/21/2019 diverticulosis, repeat 5 yrs/COLONOSCOPY FLEXIBLE PROXIMAL DIAGNOSTIC performed by Teddy Rizvi MD at ENDOSCOPY [facility] REMOVE TONSILS & ADENOIDS, AGE 12+ 1979 [...] level: Not on file Occupational History Employer: [employer] Tobacco Use Smoking status: Former Packs/day: 1.00 [...] -WBC 12.4, H&H of 8.1/26, Platelet count [id number]. IMAGING: As described above. ASSESSMENT AND PLAN: 78-year-old male, a case of prostatic adenocarcinoma [place] score 4+5, imaging study also showed right [...] 3 months. Thanks for the consultation. Dr. Sonja Puente Hem/Onc (This note was completed using the dictation program Fluency Direct. As such, there may be misspellings word substitutions, or other variations that should not change the essence of the clinical content of this encounter note. If there is need for further clarification, please direct questions to the provider listed above.) documented in this encounter Nursing Notes * Mari Boswell, [facility] - 04/10/2023 11:58 AM EDT Patient identifed [...] comprehension of instructions. documented in this encounter Miscellaneous Notes * Addendum Note - Sonja Puente MD - 04/10/2023 4:05 PM EDTAddended by: SONJA PUENTE on: 04/10/2023 04:05 PM Modules accepted: Orders documented in this encounter Plan of Treatment Upcoming Encounters Date Type Specialty Care Team Description 04/16/2023 Nurse Only Hematology Oncology Faby, Nurse Hem Onc Scenery [address] [place] [address] 05/19/2023 Office Visit [facility] [address] [place] [address] 05/29/2023 Office Visit Family Medicine hRianna Huitron DO [address] [place] [address] 08/14/2023 Nurse Only Urology [place], Nurse Alexandro Conde [address] [facility] [place] [address] 09/10/2023 Office Visit Rheumatology Mendel Wilson MD [address] [place] [address] Pending Results Name Type Priority Associated Diagnoses [...] history exists Albumin/Creatinine Ratio 04/10/2023 04/10/2022, 0510/2006 HbA1c 06/26/2023 12/24/2022, 11/01, 04/10/2022, Additional history [...] D LEVEL ONCE IN A LIFETIME-USE SMARTSET# [id number] Completed 05/27/2021, 09/07/2019, 01/10/2019, Additional history exists [...] TECHNOLOGIST REVIEW (04/10/2023 1:02 PM EDT) Pathologist [facility] nRBCs 04/10/2023 1:29 PM EDT [facility] 56-02 Blood Venous blood specimen / Unknown Venipuncture / Unknown 04/10/2023 1:02 PM EDT 04/10/2023 1:02 PM EDT Sonja Puente MD LAB BLOOD ORDERABLES [facility] 56- [address] [place] [address] * (ABNORMAL) DIFFERENTIAL, AUTOMATED (04/10/2023 1:02 PM EDT) [facility] WBC 12.49(H) 4.00 - 10.80 K/uL 04/10/2023 1:29 PM EDT [facility] 56-02 Neutrophils % 70.3 40.0 - 75.0 % 04/10/2023 1:29 PM EDT [facility] 56-02 Lymphocytes % 17.5(L) 18.0 - 42.0 % 04/10/2023 1:29 PM EDT [facility] 56-02 Monocytes % 9.4 1.0 - 11.0 % 04/10/2023 1:29 PM EDT [facility] 56-02 Eosinophils % 2.5 0.0 - 6.0 % 04/10/2023 1:29 PM EDT [facility] 56-02 Basophils % 0.3 0.0 - 2.0 % 04/10/2023 1:29 PM EDT [facility] 56-02 Absolute Neutrophils 8.78(H) 1.80 - 7.70 K/uL 04/10/2023 1:29 PM EDT [facility] 56-02 Absolute Lymphocytes 2.18 1.00 - 4.80 K/ul 04/10/2023 1:29 PM EDT [facility] 56 Absolute Monocytes 1.18(H) 0.00 - 1.10 K/uL 04/10/2023 1:29 PM EDT [facility] 56 Absolute Eosinophils 0.31 0.00 - 0.70 K/uL 04/10/2023 1:29 PM EDT [facility] 56 Absolute Basophils 0.04 0.00 - 0.20 K/uL 04/10/2023 1:29 PM EDT [facility] 56 Blood Venous blood specimen / Unknown Venipuncture / Unknown 04/10/2023 1:02 PM EDT 04/10/2023 1:02 PM EDT Sonja Puente MD LAB BLOOD ORDERABLES Performing Organization Address City/State/[facility] Co de Phone Number [facility] [address] [place] [phone] * (ABNORMAL) CBC (04/10/2023 1:02 PM EDT) WBC 12.49(H) 4.00 - 10.80 K/uL 04/10/2023 1:29 PM EDT [facility] 56 RBC 2.70 4.50 - 5.25 M/uL 04/10/2023 1:29 PM EDT [facility] 56 HGB 8.1(L) 14.0 - 16.8 g/dL 04/10/2023 1:29 PM EDT [facility] 56 HCT 26.0(L) 40.0 - 48.4 % 04/10/2023 1:29 PM EDT [facility] 56 MCV 96.3 82.0 - 99.5 fL 04/10/2023 1:29 PM EDT [facility] 56 MCH 30.0 27.0 - 34.0 pg 04/10/2023 1:29 PM EDT [facility] 56 MCHC 31.2 32.0 - 36.0 g/dL 04/10/2023 1:29 PM EDT [facility] 56 RDW 16.5 11.5 - 15.5 % 04/10/2023 1:29 PM EDT [address] 359 140 - 400 K/uL 04/10/2023 1:29 PM EDT [address] MPV 10.0 6.6 - 11.1 fL 04/10/2023 1:29 PM EDT [facility] 56 Blood Venous blood specimen / Unknown Venipuncture / Unknown 04/10/2023 1:02 PM EDT 04/10/2023 1:02 PM EDT Sonja Puente MD LAB BLOOD ORDERABLES [place] [address] [place] [phone] * (ABNORMAL) COMPREHENSIVE METABOLIC PANEL (04/10/2023 1:02 PM EDT) BUN 28(H) 6 - 20 mg/dL 04/10/2023 1:28 PM EDT [address] Creatinine 1.9(H) 0.6 - 1.2 mg/dL 04/10/2023 1:28 PM EDT [address] Estimated Glomerular Filtration Rate 37(L) >=60 mL/min 04/10/2023 1:28 PM EDT [address] Comment:eGFR is calculated b ased on the CKD-EPI 2020 equation Sodium 135 135 - 146 mmol/L 04/10/2023 1:28 PM EDT [address] Potassium 3.2(L) 3.5 - 5.1 mmol/L 04/10/2023 1:28 PM EDT [address] Chloride 96(L) 98 - 107 mmol/L 04/10/2023 1:28 PM EDT [address] CO2 23 22 - 32 mmol/L 04/10/2023 1:28 PM EDT [address] Anion Gap 16(H) 7 - 15 mmol/L 04/10/2023 1:28 PM EDT [address] Glucose 120 70 - 120 mg/dL 04/10/2023 1:28 PM EDT [facility] 56-02 Albumin 3.8 3.8 - 5.0 g/dL 04/10/2023 1:28 PM EDT [facility] 56- AST 14 10 - 50 U/L 04/10/2023 1:28 PM EDT [facility] 56- Alkaline Phosphatase 87 35 - 130 U/L 04/10/2023 1:28 PM EDT [facility] 56- Bilirubin, Total 0.3 <=1.2 mg/dL 04/10/2023 1:28 PM EDT [facility] 56- Calcium 9.3 8.4 - 10.2 mg/dL 04/10/2023 1:28 PM EDT [facility] 56- Protein 7.1 6.0 - 8.3 g/dL 04/10/2023 1:28 PM EDT [facility] 56- ALT 9(L) 10 - 50 U/L 04/10/2023 1:28 PM EDT [facility] 56 Blood Venous blood specimen / Unknown Venipuncture / Unknown 04/10/2023 1:02 PM EDT 04/10/2023 1:02 PM EDT Sonja Puente MD LAB BLOOD ORDERABLES [facility] [address]- [address] [place] [address] documented in this encounter Visit Diagnoses Diagnosis Prostate cancer (HCC)- Primary Malignant neoplasm of prostate Anemia, unspecified type documented in this encounter Care Teams Shot Bagger Relationship Specialty Start Date End Date Rhianna Huitron, [address] [place] [address] PCP - General Family Medicine 07/11/19 documented as of this encounter
--- OUTSIDE RECORDS SUMMARY | 2023-09-01 04:51 | External Medical Summary | Summary of Care ---
Author Name Unknown Organization [facility] Address [address] [place] [address] Phone [phone] Care Team Providers Care Air Carrier Operations Inspector Name Role Phone Reggieruma Rhianna Keturah DOMINGUEZ Primary Care Provider [phone] Reason for Visit * Reason Onset Date Comments Films 04/08/2023 Encounter Details Date Type Department Care Team Description 04/08/2023 Telephone Radiology Film File [address] [place], [place] [phone] Vinay Sexton MD [address] [facility] [place] [place] [address] Films Allergies Active Allergy Reactions Severity Noted Date Comments Brent Inhibitors Cough Low 11/26/2017 Alendronate Sodium Muscle pain 04/11/2019 Heartburn, constipation, joint pain Misoprostol Diarrhea 08/08/2003 Niacin Er 11/26/2010 Gas, hot flashes Pollen 01/01/2018 Watery eyes, sneezing Pravastatin 02/26/2007 Upset stomach, all .Statins Simvastatin 02/26/2007 Upset stomach documented as of this encounter (statuses as of 04/08/2023) Medications Medication Sig Dispensed Refills Start Date [...] Active Triamcinolone Acetonide 0.1 % External Cream (Aristocort)Indica tions:Folliculitis Apply topically to affected area 2 times a day. To affected area. 30 g 1 11/09/2022 Active Sulfamethoxazole-T rimethoprim 800-160 MG Oral Tablet (Bactrim DS) Take 1 Tablet by mouth in the morning and 1 Tablet before bedtime. Start 2 days prior to biopsy. 10 Tablet 0 12/10/2022 Active Additional Information Patient not taking.Reported on 03/27/2023 Tamsulosin HCl 0.4 MG Oral Capsule (Flomax) Take 1 Capsule by mouth in the morning. 90 Capsule 3 01/02/2023 Active Losartan Potassium 25 MG Oral Tablet (Cozaar) TAKE 1/2 TABLET BY MOUTH EVERY DAY 45 Tablet 1 01/23/2023 Active Bicalutamide 50 MG Oral Tablet (Casodex) Take 1 Tablet by mouth in the morning. 30 Tablet 3 03/27/2023 Active Methotrexate Sodium 2.5 MG Oral TabletIndications: Arthritis, rheumatoid (HCC) Take 5 tablets by mouth once weekly 65 Tablet 0 04/01/2023 Active documented as of this encounter (statuses as of 04/08/2023) Active Problems Problem Noted Date Diabetes mellitus [...] glucose 12/16/2005 Macular degeneration 12/02/1999 DISC DIS [id number] documented as of this encounter (statuses as of 04/08/2023) Resolved Problems Problem Noted Date Resolved Date Prediabetes 11/08/2018 04/17/2022 Overview: Per Prediabetes protocol #1 Morbid (severe) obesity due to excess calories 0 08/19/2017 03/09/2019 Infective otitis externa 09/08/2012 013 Cough 07/03/2012 08/18/2012 Benign neoplasm of colon 05/10/2007 019 Overview: adenomatous repeat colonoscopy in 5 years ARTHRITIS,RHEUMATOID 07/07/2006 05/12/2016 [id number] 07/07/2006 11/17/19 10 Overview: Renamed Per Clinical Trials Billing Project. Pt is a participant in the [employer] ([employer]ortium of [place] national data collection study. For further information please call Dr Hari Clark or Julia White, RN, CCRC at [phone] [facility] RESEARCH OTHER*[id number] 07/07/2006 01/28/2010 Overview: Renamed Per Clinical Trials Billing Project. Pt is a participant in the [employer] ([employer]ortium of [place] national data collection study. For further information please call Dr Hari Clark or Julia White, RN, CCRC at [phone] Hearing loss 12/02/1999 03/29/2013 documented as of this encounter (statuses as of 04/08/2023) Immunizations Name Administration Dates Next Due COVID-19 mRNA, LNP-s, No Pre serve, 2-Dose Series ([employer]) 06/14/2021,10/10/2020,09/12/2020 COVID-19, LNP-s, No Preserve , Yousuf-sucrose, [...] KARLOS Johns - 04/08/2023 10:39 AM EDT [facility] Radiology/Oncology department requesting 03-24-23 Pet images be pushed through PACS. [place] Authorization to Release on file. Images pushed to [facility] PACS external connection. Associated report(s) not needed. documented in this encounter Plan of Treatment Upcoming Encounters Date Type Specialty Care Team Description 04/08/2023 Nurse Only Urology [place], Nurse Urology [place] [address] [facility] [place] [address] Arrived 04/10/2023 Office Visit Hematology Oncology Patrice Puente MD [address] [place] [address] 05/19/2023 Office Visit Urology Vinay Sexton MD [address] [facility] [address] [place] [address] 05/29/2023 Office Visit Family Medicine Rhianna Huitron DO [address] [place], [place] [phone] 09/10/2023 Office Visit Rheumatology Mendel Wilson MD [address] [facility] [place] [address] Scheduled Procedures Name Priority Associated Diagnoses Date/Ti me COLONOSCOPY FLEXIBLE PROXIMAL DIAGNOSTIC Recall Hx of colonic polyps Health Maintenance Due Date Last Done Comments DXA Scan 01/10/2021 01/10/2019, 12/0 12/2005, 07/07/2006 Depression Screening, Annual for Pts 12 and Over 03/13/2021 03/13/2020 Influenza Vaccine (FLU shot) (#1) [...] D LEVEL ONCE IN A LIFETIME-USE SMARTSET# [id number] Completed 05/27/2021, 09/07/2019, 01/10/2019, Additional history exists [...] filedocumented as of this encounter Care Teams Air Carrier Operations Inspector Relationship Specialty Start Date End Date Rhianna Huitron, [address] [place] [address] PCP - General Family Medicine 07/11/19 documented as of this encounter
--- OUTSIDE RECORDS SUMMARY | 2023-09-01 04:51 | External Medical Summary ---
Author Name Unknown Address Unknown Organization K01:[facility] [address] [place] [address] Laboratory Report Ordering Provider Test Date Status JOHNATHON CASILLAS 04/10/2023 13:02:34 Final Observation Date Value Abnormality Reference (Units ) Status Iron 04/10/2023 13:02:34 34 Below low normal 45-176 (ug/dL) Final Iron-binding capacity 04/10/2023 13:02:34 257 250-425 (ug/dL) Final Transferrin Sat % 04/10/2023 13:02:34 13 Below low normal 15-55 (%) Final Performing Location [facility] [address] [place] [address]
--- OUTSIDE RECORDS SUMMARY | 2023-09-01 04:51 | External Medical Summary | Summary of Care ---
Author Name Unknown Organization [facility] Address [address] [facility] [place] [address] Phone [phone] Care Team Providers Care Shop Tailor Name Role Phone Orlandomilad Rhianna Keturah DOMINGUEZ Primary Care Provider [phone] Reason for Visit * Precert (Within 10 days (routine)) - Authorized Specialty Diagnoses / Procedures Referred By Contac t Referred To Contact Diagnoses Malignant neoplasm of prostate (HCC) Procedures ND LEUPROLIDE ACETATE SUSPNSION Vinay Sexton MD [address] [place] [address] Vinay Sexton MD [address] [place] [address] Referral ID Status Reason Start Date Expiration Date V isits Requested Visits Authorized [id number] Authorized Precert 03/31/2023 03/30/[phone] Encounter Details Date Type Department Care Team Description 04/08/2023 Nurse Only Urology, [place] [address] [place] [address] Nurse [facility] [place] [address] [place] [address] Allergies Active Allergy Reactions Severity Noted Date [...] once weekly 65 Tablet 0 04/01/2023 Active Hospital, Clinic, or Other Facility Administered Medication Ordered Dose Route Frequency Start Date End Date Status Leuprolide Acetate (4 Month) (Lupron) inj 30 mgIndications:Prostate cancer (HCC) 30 mg IM ONCE 04/08/2023 04/08/2023 Ended documented as of this encounter (statuses [...] glucose 12/16/2005 Macular degeneration 12/02/1999 DISC DIS [id number] documented as of this encounter (statuses as of 04/08/2023) Resolved Problems Problem Noted Date Resolved Date Prediabetes 11/08/2018 04/17/2022 Overview: Per Prediabetes protocol #1 Morbid (severe) obesity due to excess calories 0 08/19/2017 03/09/2019 Infective otitis externa 09/08/2012 013 Cough 07/03/2012 08/18/2012 Benign neoplasm of colon 05/10/2007 019 Overview: adenomatous repeat colonoscopy in 5 years ARTHRITIS,RHEUMATOID 07/07/2006 05/12/2016 [id number] 07/07/2006 11/17/19 10 Overview: Renamed Per Clinical Trials Billing Project. Pt is a participant in the [facility] (Consortium of Rheumatology Researchers of [facility]) national data collection study. For further information please call Dr Hari Clark or Julia White, RN, CCRC at [phone] [facility] RESEARCH OTHER*[id number] 07/07/2006 01/28/2010 Overview: Renamed Per Clinical Trials Billing Project. Pt is a participant in the [facility] (Consortium of Rheumatology Researchers of [place]) national data collection study. For further information please call Dr Hari Clark or Julia White, RN, CCRC at [phone] Hearing loss 12/02/1999 03/29/2013 documented as of this encounter (statuses as of 04/08/2023) Immunizations Name Administration Dates Next Due COVID-19 mRNA, LNP-s, No Pre serve, 2-Dose Series (NeuroSave) 06/14/2021,10/10/2020,09/12/2020 COVID-19, LNP-s, No Preserve , Yousuf-sucrose, [...] as of this encounter Nursing Notes * Elena Figueroa LPN - 04/08/2023 12:47 PM EDT Lupron 30 Mg was given IM in [facility] documented in this encounter Plan of Treatment Upcoming Encounters Date Type Specialty Care Team Description 04/10/2023 Office Visit Hematology Oncology Patrice Puente MD [address] [place] [address] 05/19/2023 Office Visit Urology Vinay Sexton MD [address] [address] [place] [address] 05/29/2023 Office Visit Family Medicine Rhianna Huitron DO [address] [place] [address] [phone] 08/14/2023 Nurse Only Urology Garrett, Nurse [facility] [place] [address] [place] [address] 09/10/2023 Office Visit Rheumatology Mendel Wilson MD [address] [place] [address] Scheduled Procedures Name Priority Associated Diagnoses Date/Ti me COLONOSCOPY FLEXIBLE PROXIMAL DIAGNOSTIC Recall Hx of colonic polyps Health Maintenance Due Date Last Done Comments DXA Scan 01/10/2021 01/10/2019, 12/2005, 07/07/2006 Depression Screening, Annual for Pts [...] D LEVEL ONCE IN A LIFETIME-USE SMARTSET# [id number] Completed 05/27/2021, 09/07/2019, 01/10/2019, Additional history exists [...] neoplasm of prostate documented in this encounter Administered Medications Inactive Administered Medications - up to 3 most recent administrations Medication Order MAR Action Action Date Dose Rate Site Leuprolide Acetate (4 Month) (Lupron) inj 30 mg 30 mg, Intramuscular, ONCE, On Thu04/08/23 at 1300, For 1 dose Given 04/08/2023 12:48 PM EDT 30 mg Ventrogluteal Left documented in this encounter Care Teams Shop Tailor Relationship Specialty Start Date End Date Rhianna Huitron, [address] [place] [address] PCP - General Family Medicine 07/11/19 documented as of this encounter
--- OUTSIDE RECORDS SUMMARY | 2023-09-01 04:51 | External Medical Summary | Summary of Care ---
Author Name Unknown Organization [facility] Address [address] [facility] [address] Phone [phone] Care Team Providers Care Head Pastry Chef Name Role Phone OrlandoRhianna stinson Keturah DOMINGUEZ Primary Care Provider [phone] Encounter Details Date Type Department Care Team Description 03/30/2023 Telephone Urology Samy Bhatt [address] [place] [phone] Vinay Sexton MD [address] [place] [id number] Allergies Active Allergy Reactions Severity Noted Date Comments Brent Inhibitors Cough Low 11/26/2017 Alendronate Sodium Muscle pain 04/11/2019 Heartburn, constipation, joint pain Misoprostol Diarrhea 08/08/2003 Niacin Er 11/26/2010 Gas, hot flashes Pollen 01/01/2018 Watery eyes, sneezing Pravastatin 02/26/2007 Upset stomach, all .Statins Simvastatin 02/26/2007 Upset stomach documented as of this encounter (statuses as of 03/31/2023) Medications Medication Sig Dispensed Refills Start Date [...] affected area. 30 g 1 11/09/2022 Active Methotrexate Sodium 2.5 MG Oral TabletIndications: Arthritis, rheumatoid (HCC) TAKE 8 TABLETS BY MOUTH ONE TIME PER WEEK 96 Tablet 1 12/12/2022 Active Sulfamethoxazole-T rimethoprim 800-160 MG Oral Tablet [...] the morning. 30 Tablet 3 03/27/2023 Active documented as of this encounter (statuses as of 03/31/2023) Active Problems Problem Noted Date Diabetes mellitus [...] glucose 12/16/2005 Macular degeneration 12/02/1999 DISC DIS [id number] documented as of this encounter (statuses as of 03/31/2023) Resolved Problems Problem Noted Date Resolved Date Prediabetes 11/08/2018 04/17/2022 Overview: Per Prediabetes protocol #1 Morbid (severe) obesity due to excess calories 0 08/19/2017 03/09/2019 Infective otitis externa 09/08/2012 013 Cough 07/03/2012 08/18/2012 Benign neoplasm of colon 05/10/2007 019 Overview: adenomatous repeat colonoscopy in 5 years ARTHRITIS,RHEUMATOID 07/07/2006 05/12/2016 [id number] 07/07/2006 11/17/19 10 Overview: Renamed Per Clinical Trials Billing Project. Pt is a participant in the [employer] (Consortium of Rheumatology Researchers of [place]) national data collection study. For further information please call Dr Hari Clark or Julia White, RN, CCRC at [phone] [facility] RESEARCH OTHER*[id number] 07/07/2006 01/28/2010 Overview: Renamed Per Clinical Trials Billing Project. Pt is a participant in the [employer] (Consortium of Rheumatology Researchers of [place]) national data collection study. For further information please call Dr Hari Clark or Julia White, RN, CCRC at [phone] Hearing loss 12/02/1999 03/29/2013 documented as of this encounter (statuses as of 03/31/2023) Immunizations Name Administration Dates Next Due COVID-19 mRNA, LNP-s, No Pre serve, 2-Dose Series (TimePad) 06/14/2021,10/10/2020,09/12/2020 COVID-19, LNP-s, No Preserve , Yousuf-sucrose, [...] encounter Miscellaneous Notes * Telephone Encounter - Elena Figueroa LPN - 03/31/2023 12:58 PM EDT Per [facility], patient has received catheters. * Telephone Encounter - Elena Figueroa LPN - 03/30/2023 11:46 AM EDT Catheter rx on Dr Sexton's desk for signature. Will fax to [facility] once signed. Will contact patient once rx is faxed. * Telephone Encounter - KARLOS Thomas - 03/30/2023 10:16 AM EDT Patient called in and needed to speak with nurse in regards to getting catheters. Please callback. documented in this encounter Plan of Treatment Upcoming Encounters Date Type Specialty Care Team Description 04/08/2023 Nurse Only Urology [facility], [facility] [place] [address] [place] [address] 05/19/2023 Office Visit Urology Vinay Sexton MD [address] [place] [address] 05/29/2023 Office Visit Family Medicine Rhianna H[facility]ron DO [address] [address] 09/10/2023 Office Visit Rheumatology Mendel Wilson MD [address] [facility], [place] [address] Scheduled Procedures Name Priority Associated Diagnoses Date/Ti [...] 06/26/2023 12/24/2022, 11/01, 04/10/2022, Additional history exists DIABETES-FOOT EXAM 12/25/2023 12/24/2022 COLONOSCOPY-EVERY 5 YRS AGES 18-100 [...] D LEVEL ONCE IN A LIFETIME-USE SMARTSET# [id number] Completed 05/27/2021, 09/07/2019, 01/10/2019, Additional history exists [...] filedocumented as of this encounter Care Teams Head Pastry Chef Relationship Specialty Start Date End Date Rhianna Huitron, DO [address] [place] [address] PCP - General Family Medicine 07/11/19 documented as of this encounter
--- OUTSIDE RECORDS SUMMARY | 2023-09-01 04:51 | External Medical Summary | Summary of Care ---
Author Name Unknown Organization [facility] Address [address] [facility] [address] Phone [phone] Care Team Providers Care Forensic Psychologist Name Role Phone OrlandoRhianna stinson Keturah DOMINGUEZ Primary Care Provider [phone] Encounter Details Date Type Department Care Team Description 03/30/2023 Telephone Urology Samy Bhatt [address] [place] [phone] Vinay Sexton MD [address] [place] [address] Allergies Active Allergy Reactions Severity Noted Date Comments Brent Inhibitors Cough Low 11/26/2017 Alendronate Sodium Muscle pain 04/11/2019 Heartburn, constipation, joint pain Misoprostol Diarrhea 08/08/2003 Niacin Er 11/26/2010 Gas, hot flashes Pollen 01/01/2018 Watery eyes, sneezing Pravastatin 02/26/2007 Upset stomach, all .Statins Simvastatin 02/26/2007 Upset stomach documented as of this encounter (statuses as of 03/30/2023) Medications Medication Sig Dispensed Refills Start Date [...] as of this encounter (statuses as of 03/30/2023) Active Problems Problem Noted Date Diabetes mellitus [...] glucose 12/16/2005 Macular degeneration 12/02/1999 DISC DIS [id number] documented as of this encounter (statuses as of 03/30/2023) Resolved Problems Problem Noted Date Resolved Date Prediabetes 11/08/2018 04/17/2022 Overview: Per Prediabetes protocol #1 Morbid (severe) obesity due to excess calories 0 08/19/2017 03/09/2019 Infective otitis externa 09/08/2012 013 Cough 07/03/2012 08/18/2012 Benign neoplasm of colon 05/10/2007 019 Overview: adenomatous repeat colonoscopy in 5 years ARTHRITIS,RHEUMATOID 07/07/2006 05/12/2016 [id number] 07/07/2006 11/17/19 10 Overview: Renamed Per Clinical Trials Billing Project. Pt is a participant in the [employer] (Consortium of Rheumatology Researchers of [place]) national data collection study. For further information please call Dr Hari Clark or Julia White, RN, CCRC at [phone] [facility] RESEARCH OTHER*[id number] 07/07/2006 01/28/2010 Overview: Renamed Per Clinical Trials Billing Project. Pt is a participant in the [employer] (Consortium of Rheumatology Researchers of [place]) national data collection study. For further information please call Dr Hari Clark or Julia White, RN, CCRC at [phone] Hearing loss 12/02/1999 03/29/2013 documented as of this encounter (statuses as of 03/30/2023) Immunizations Name Administration Dates Next Due COVID-19 mRNA, LNP-s, No Pre serve, 2-Dose Series (NETpeas) 06/14/2021,10/10/2020,09/12/2020 COVID-19, LNP-s, No Preserve , Yousuf-sucrose, [...] Urology Garrett, Nurse Urology [place] [address] [place] [address] 05/19/2023 Office Visit Urology Vinay Sexton MD [address] [place] [address] 05/29/2023 Office Visit Family Medicine Rhianna Huitron DO [address] [place] [place] [address] 09/10/2023 Office Visit Rheumatology Mendel Wilson MD [address] [facility] [place] [address] Scheduled Procedures Name Priority Associated Diagnoses Date/Ti [...] D LEVEL ONCE IN A LIFETIME-USE SMARTSET# [id number] Completed 05/27/2021, 09/07/2019, 01/10/2019, Additional history exists [...] filedocumented as of this encounter Care Teams Forensic Psychologist Relationship Specialty Start Date End Date Rhianna Huitron, DO [address] [place] [address] PCP - General Family Medicine 07/11/19 documented as of this encounter
--- OUTSIDE RECORDS SUMMARY | 2023-09-01 04:51 | External Medical Summary | Summary of Care ---
Author Name Unknown Organization [facility] Address [address] [place] [facility] [place] [address] Phone [phone] Care Team Providers Care Nba Player Name Role Phone Elana Rhianna Keturah DOMINGUEZ Primary Care Provider [phone] Reason for Visit * Reason Onset Date Comments Abnormal Test Results 03/27/2023 Encounter Details Date Type Department Care Team Description 03/27/2023 Telephone Rheumatology [facility] [address] [place] [address] Mendel Wilson MD [address] [facility] [place] [address] Abnormal Test Results Allergies Active Allergy Reactions Severity Noted Date Comments Brent Inhibitors Cough Low 11/26/2017 Alendronate Sodium Muscle pain 04/11/2019 Heartburn, constipation, joint pain Misoprostol Diarrhea 08/08/2003 Niacin Er 11/26/2010 Gas, hot flashes Pollen 01/01/2018 Watery eyes, sneezing Pravastatin 02/26/2007 Upset stomach, all .Statins Simvastatin 02/26/2007 Upset stomach documented as of this encounter (statuses as of 04/01/2023) Medications Medication Sig Dispensed Refills Start Date [...] affected area. 30 g 1 11/09/2022 Active Sulfamethoxazole -Trimethoprim 800-160 MG Oral Tablet [...] 03/27/2023 Active Methotrexate Sodium 2.5 MG Oral TabletIndication s:Arthritis, rheumatoid (HCC) Take 5 tablets by mouth once weekly 65 Tablet 0 04/01/2023 Active Methotrexate Sodium 2.5 MG Oral TabletIndication s:Arthritis, rheumatoid (HCC) TAKE 8 TABLETS BY MOUTH ONE TIME PER WEEK 96 Tablet 1 12/12/2022 3 Discontinue d(Refill) documented as of this encounter (statuses as of 04/01/2023) Active Problems Problem Noted Date Diabetes mellitus [...] glucose 12/16/2005 Macular degeneration 12/02/1999 DISC DIS [id number] documented as of this encounter (statuses as of 04/01/2023) Resolved Problems Problem Noted Date Resolved Date Prediabetes 11/08/2018 04/17/2022 Overview: Per Prediabetes protocol #1 Morbid (severe) obesity due to excess calories 0 08/19/2017 03/09/2019 Infective otitis externa 09/08/2012 013 Cough 07/03/2012 08/18/2012 Benign neoplasm of colon 05/10/2007 019 Overview: adenomatous repeat colonoscopy in 5 years ARTHRITIS,RHEUMATOID 07/07/2006 05/12/2016 [id number] 07/07/2006 11/17/19 10 Overview: Renamed Per Clinical Trials Billing Project. Pt is a participant in the [employer] (Consortium of Rheumatology Researchers of [place]) national data collection study. For further information please call Dr Hari Clark or Julia White, RN, CCRC at [phone] [facility] RESEARCH OTHER*[id number] 07/07/2006 01/28/2010 Overview: Renamed Per Clinical Trials Billing Project. Pt is a participant in the [employer] (Consortium of Rheumatology Researchers of [place]) national data collection study. For further information please call Dr Hari Clark or Julia White, RN, CCRC at [phone] Hearing loss 12/02/1999 03/29/2013 documented as of this encounter (statuses as of 04/01/2023) Immunizations Name Administration Dates Next Due COVID-19 [...] in 1 month. * Telephone Encounter - Imanishahla Baez, [facility] - 03/27/2023 10:34 AM [...] kidney function. Thank you, Imani Baez, PharmD [facility] Clinical Pharmacist Rheumatology Department [phone] 03/27/2023 documented in this encounter Plan of Treatment Upcoming Encounters Date Type Specialty Care Team Description 04/08/2023 Nurse Only Urology Garrett, Nurse Urology [place] [address] [place] [address] 05/19/2023 Office Visit Urology Vinay Sexton MD [address] [place] [address] 05/29/2023 Office Visit Family Medicine Rhianna Huitron DO [address] [place], [place] [phone] 09/10/2023 Office Visit Rheumatology Mendel Wilson MD [facility] [place] [address] Scheduled Orders Name Type Priority Associated Diagnoses Orde r Schedule BUN Lab Routine Encounter for long-term (current) drug use Expected: 05/02/2023 (Approximate), Expires: 04/01/2024 CREATININE Lab Routine Encounter for long-term (current) drug use Expected: 05/02/2023 (Approximate), Expires: 04/01/2024 CBC WITH WBC DIFFERENTIAL Lab Routine Encounter for long-term (current) drug use Expected: 05/02/2023 (Approximate), Expires: 04/01/2024 Scheduled Procedures Name Priority Associated Diagnoses Date/Ti [...] D LEVEL ONCE IN A LIFETIME-USE SMARTSET# [id number] Completed 05/27/2021, 09/07/2019, 01/10/2019, Additional history exists [...] arthritis documented in this encounter Care Teams Nba Player Relationship Specialty Start Date End Date Rhianna Huitron, DO [address], [place] [id number] PCP - General Family Medicine 07/11/19 documented as of this encounter
--- OUTSIDE RECORDS SUMMARY | 2023-09-01 04:51 | External Medical Summary ---
Author Name Unknown Address Unknown Organization K01:[facility] - [address] [place] [address] Laboratory Report Ordering Provider Test Date Status JOHNATHON CASILLAS 04/10/2023 13:02:34 Final Observation Date Value Abnormality Reference (Units ) Status Retic, % (auto) 04/10/2023 13:02:34 6.42 Above high normal 0.80-1.90 (%) Final Reticulocytes, Absolute 04/10/2023 13:02:34 175.3 Above high normal 31.3-100.1 (K/uL) Final Reticulocyte fraction, immature 04/10/2023 13:02:34 32.4 Above high normal 2.5-20.6 (%) Final Reticulocyte HGB 04/10/2023 13:02:34 30.7 29.7-37.4 (pg) Final Performing Location [facility] - [address] [place] [address]
--- OUTSIDE RECORDS SUMMARY | 2023-09-01 04:51 | External Medical Summary ---
Author Name Unknown Address Unknown Organization K09:[facility] [place] [address] Laboratory Report Ordering Provider Test Date Status JOHNATHON CASILLAS 04/10/2023 13:02:34 Final Observation Date Value Abnormality Reference (Units ) Status BUN 04/10/2023 13:02:34 28 Above high normal 6-20 (mg/dL) Final Creatinine 04/10/2023 13:02:34 1.9 Above high normal 0.6-1.2 (mg/dL) Final Glomerular filtration rate/1.73 sq M.predicted [Volume Rate/Area] in Serum, Plasma or Blood by Creatinine-based formula (CKD-EPI) 04/10/2023 13:02:34 37 Below low normal >=60 (mL/min) Final eGFR is calculated based on the CKD-EPI 2020 equation SODIUM 04/10/2023 13:02:34 135 135-146 (m mol/L) Final Potassium 04/10/2023 13:02:34 3.2 Below low normal 3.5 -5.1 (mmol/L) Final Cl 04/10/2023 13:02:34 96 Below low normal 98- 107 (mmol/L) Final CO2 04/10/2023 13:02:34 23 22-32 (mmo l/L) Final Anion gap 04/10/2023 13:02:34 16 Above high normal 7- 15 (mmol/L) Final Glucose 04/10/2023 13:02:34 120 70-120 (mg /dL) Final Albumin 04/10/2023 13:02:34 3.8 3.8-5.0 (g /dL) Final AST (Aspartate aminotransferase) 04/10/2023 13:02:34 14 10-50 (U/L) Fin al Alk Phos 04/10/2023 13:02:34 87 35-130 (U/ L) Final Bilirubin, Total 04/10/2023 13:02:34 0.3 <=1 .2 (mg/dL) Final Calcium 04/10/2023 13:02:34 9.3 8.4-10.2 ( mg/dL) Final Protein 04/10/2023 13:02:34 7.1 6.0-8.3 (g /dL) Final ALT (Alanine aminotransferase) 04/10/2023 13:02:34 9 Below low normal 10-50 (U/L) Final Performing Location [facility] [address] [place] [address]
--- OUTSIDE RECORDS SUMMARY | 2023-09-01 04:51 | External Medical Summary | Summary of Care ---
Author Name Unknown Organization [facility] Address [address] [place] [address] Phone [phone] Care Team Providers Care Facilities Maintenance Technician Name Role Phone Kat Huitron DO Primary Care Provider Reason for Referral * Evaluate & Treat - Unlimited Visits (Within 10 days (routine)) - Pending Review Specialty Diagnoses / Procedures Referred By Contac t Referred To Contact Hematology/Oncology / Hematology Oncology Diagnoses Prostate cancer (HCC) Vinay Sexton MD [address] [facility] [address] [place] [address] Referral ID Status Reason Start Date Expiration Date Visits Requested Visits Authorized [id number] Pending Review Specialty Services Required 03/27/[phone] Question Answer Referral Priority Within 10 days (routine) Reason for Referral Malignant Oncology (Solid Organ Cancer) Comments Aggressive prostate cancer * Evaluate & Treat - Unlimited Visits (Within 10 days (routine)) - Pending Review Specialty Diagnoses / Procedures Referred By Contac t Referred To Contact Radiation Oncology Diagnoses Prostate cancer (HCC) Vinay Sexton MD [address] [facility] [address] [place] [address] Referral ID Status Reason Start Date Expiration Date Visits Requested Visits Authorized [id number] Pending Review Specialty Services Required 03/27/[phone] Question Answer Referral Priority Within 10 days (routine) Comments Aggressive prostate cancer Reason for Visit * Reason Comments Follow Up * Evaluate & Treat - Unlimited Visits (Within 30 days (routine)) - Pending Review Specialty Diagnoses / Procedures Referred By Clarke gore Referred To Contact Urology Diagnoses Other obstructive and reflux uropathy Procedures RETURN APPT Kat Huitron, DO [address] [place] [address] Referral ID Status Reason Start Date Expiration Date Visits Requested Visits Authorized [id number] Pending Review Specialty Services Required 03/24/[phone] Encounter Details Date Type Department Care Team Description 03/27/2023 Telemedicine Urology Samy Bhatt [address] [place] [address] [place] [address] Vinay Sexton MD [address] [place] [address] [place] [address] 7, Telemed [facility] Urology Ex Rm [address] [place] [address] Prostate cancer ([facility])* Allergies Active Allergy Reactions Severity Noted Date [...] glucose 12/16/2005 Macular degeneration 12/02/1999 DISC DIS [id number] documented as of this encounter (statuses as of 03/31/2023) Resolved Problems Problem Noted Date Resolved Date Prediabetes 11/08/2018 04/17/2022 Overview: Per Prediabetes protocol #1 Morbid (severe) obesity due to excess calories 0 08/19/2017 03/09/2019 Infective otitis externa 09/08/2012 013 Cough 07/03/2012 08/18/2012 Benign neoplasm of colon 05/10/2007 019 Overview: adenomatous repeat colonoscopy in 5 years ARTHRITIS,RHEUMATOID 07/07/2006 05/12/2016 [id number] 07/07/2006 11/17/19 10 Overview: Renamed Per Clinical Trials Billing Project. Pt is a participant in the [employer]RON[employer] (Consortium of [employer] [place]) national data collection study. For further information please call Dr Hari Clark or Julia White, RN, CCRC at [phone] [facility] RESEARCH OTHER*[id number] 07/07/2006 01/28/2010 Overview: Renamed Per Clinical Trials Billing Project. Pt is a participant in the CORRO (Consortium of [employer]umatology Researchers [place]) national data collection study. For further information please call Dr Hari Clark or Julia White, RN, CCRC at [phone] Hearing loss 12/02/1999 03/29/2013 documented as of this encounter (statuses as of 03/31/2023) Immunizations Name Administration Dates Next Due COVID-19 mRNA, LNP-s, No Pre serve, 2-Dose Series ([email or web address]) 06/14/2021,10/10/2020,09/12/2020 COVID-19, LNP-s, No Preserve , Yousuf-sucrose, [...] Progress Notes * Vinay Sexton MD - 03/27/2023 8:56 AM EDT Images from the original note were not included. [id number] PCP: KAT HUITRON [address] [place] [address] [phone] Patient location: CLINIC. I was in a different facility from the patient. After connecting through [employer], patient was verified with two unique identifiers. Patient (or authorized legal kiosk sales representative) was then informed that this was a Telemedicine visit and being conducted confidentially over secure lines. My office door was closed. No one else was in the room with me. Patient acknowledged consent and understanding of privacy and security of the Telemedicine visit, and gave permission to have a telemedicine presenter stay in the room in order to assist with the history and to conduct the exam as needed. I informed the patient that I have reviewed their record in [employer] and presented the opportunity for them to ask any questions regarding the visit today. The patient agreed to participate. Markus Wharton is a 78 year old male, who presents for discussion of his prostate biopsy pathology. Patient is here today with his son, copy of pathology is provided. Images reviewed via screen share demonstrating regional metastasis, no clear distant metastasis. PSA discrepancy considering volume of disease is likely secondary to the patient's high-grade malignancy. BPH: Patient is being seen for BPH today. He has had the following symptoms: slow stream, intermittency and nocturia. Severity is moderate. History of UTI. He has tried tamsulosin increased with BID. He has previously had no surgery done. Problem has been present for years. Problem is getting worse. Prostate cancer: Diagnosed March 2023 due to rise in PSA. PSMA Mar 2023: IMPRESSION 1. Enlarged prostate [...] Recommend continued attention on follow- up studies. Creatinine Results: Lab Results Component Value Date/Time CREATININE - [facility] 2.4 (H) 03/26/2023 10:24 AM CREATININE - [facility] 1.5 (H) 12/24/2022 09:21 AM CREATININE - [facility] 1.6 (H) 12/13/2022 11:29 AM CREATININE - [facility] 1.1 07/11/2019 01:37 PM CREATININE - [facility] 1.2 04/25/2019 09:53 AM CREATININE - [facility] 1.0 01/10/2019 09:55 AM CREATININE, RANDOM URINE - [facility] 120 04/10/2022 09:18 AM CREATININE, RANDOM URINE - [facility] 250 12/03/2006 09:18 AM CREATININE-OUTSIDE LAB 1.05 02/27/2021 12:00 AM CREATININE-OUTSIDE LAB 1.07 10/12/2020 12:00 AM CREATININE-OUTSIDE LAB 1.08 07/09/2020 12:00 AM PSA Results: Lab Results Component Value Date/Time PSA - [facility] 8.49 (H) 12/10/2022 08:44 AM PSA - [facility] 5.19 (H) 04/10/2022 09:07 AM PSA - [facility] 0.88 12/03/2006 09:18 AM PSA - [facility] 0.68 12/01/2005 11:34 AM PSA - [facility] 0.69 12/03/2004 09:34 AM PSA SCREENING 1.09 07/04/2010 08:41 AM Part Location Core # Core (cm) Diagnosis Evens Grade Group PN inv % HOGSHEAD WRECKER A Left mid 2 3.4 HOGS[place] WRECKER involving 2 of 2 cores 4+5=9 5 - 95% B Left base 3 3.9 HOGSHEAD WRECKER involving 3 of 3 cores 4+5=9 5 - 90% C Left apex 2 2.8 HOGSHEAD WRECKER involving 2 of 2 cores 4+5=9 5 - 90% D Left anterior 1 1.9 HOGSHEAD WRECKER 4+5=9 5 - 100% E Right mid 2 4.2 HOGSHEAD WRECKER involving 2 of 2 cores 4+5=9 5 - 95% F Right base 2 3.3 HOGSHEAD WRECKER involving 2 of 2 cores 4+5=9 5 + 95% G Right apex 2 3.6 HOGSHEAD WRECKER involving 2 of 2 cores 4+5=9 5 + 95% H Right anterior 1 1.4 HOGSHEAD WRECKER 4+5=9 5 - 90% CORES with CARCINOMA = # Intraductal carcinoma is present *HOGSHEAD WRECKER = Prostate Carcinoma *Core = total length of cores submitted *PN inv = Perineural Invasion *HGPIN = High grade prostatic intraepithelial neoplasia *Grade group 1: Evens Score ? 6 *Grade group 2: Encino score 3+4=7 *Grade group 3: [place] score 4+3=7 *Grade group 4: [place] score 8 *Grade group 5: [place] score 9-10 Reference: Ibrahima PM, Marti PC, Jessika AW, Loi JL. Prognostic Evens grade grouping: data based on the modified Encino scoring system. BJU Int. 2013:111:753-760. Current Outpatient Medications Medication Sig Dispense Refill ASPIR-81 81 MG PO TBEC 1 TABLET DAILY 0 hydroCHLOROthiazide 12.5 MG Oral Capsule (Hydrodiuril) TAKE 1 CAPSULE BY MOUTH EVERY DAY 90 Capsule3 Folic Acid 1 MG Oral Tablet Take 1 Tablet by mouth in the morning. 90 Tablet 3 Methotrexate Sodium 2.5 MG Oral Tablet TAKE 8 TABLETS BY MOUTH ONE TIME PER WEEK 96 Tablet 1 Tamsulosin HCl 0.4 MG Oral Capsule (Flomax) Take 1 Capsule by mouth in the morning. 90 Capsule 3 Losartan Potassium 25 MG Oral Tablet (Cozaar) TAKE 1/2 TABLET BY MOUTH EVERY DAY 45 Tablet 1 Clindamycin Phosphate 1 % External Lotion Apply [...] taking: Reported on 03/27/2023) 10 Tablet 0 No current facility-administered medications for [...] User Vaping/E-Cigarette Substances Vaping/E-Cigarette Devices Family History 9 items Mother ( at age 93) Arthritis Gastro-intestinal disorder Father ( at age 65) Gastro-intestinal disorder Sister Sister Daughter Son Uncle (Unspecified) Diabetes Sister Arthritis Sister Arthritis Past Surgical History: Procedure Laterality Date COLONOSCOPY W/ LESION REMOVAL, SNARE 05/10/07 adenomatous repeat in 5 years COLONOSCOPY, DIAGNOSTIC (RECTUM) 05/10/2013 COLONOSCOPY FLEXIBLE PROXIMAL DIAGNOSTIC performed by Teddy Rizvi MD at ENDOSCOPY [facility] COLONOSCOPY, DIAGNOSTIC (RECTUM) 01/21/2019 diverticulosis, repeat 5 yrs/COLONOSCOPY FLEXIBLE PROXIMAL DIAGNOSTIC performed by Teddy Rizvi MD at ENDOSCOPY [facility] REMOVE TONSILS & ADENOIDS, AGE 12+ 1980 Tonsillectomy/Adenoids,12+ Y/O Past Medical History: Diagnosis Date Arthritis, rheumatoid (HCC) Benign neoplasm of colon 05/10/07 adenomatous repeat colonoscopy in 5 years Degeneration of lumbosacral intervertebral disc Elevated blood pressure, situational Fuchs' corneal dystrophy 10/19/2018 Impaired fasting glucose Macular degeneration Morbid (severe) obesity due to excess calories (HCC) 08/19/2017 Patient Active Problem List Diagnosis Code Macular degeneration H35.30 DISC DIS [id number] M51.9 Impaired fasting glucose R73.01 ADVANCE DIRECTIVE INFORMATION Encounter for long-term (current) use of medications Z79.899 BMI 35-39 ISOLATED (SEE ACTUAL BMI) E66.9 Rheumatoid arthritis involving multiple sites with positive rheumatoid factor (HCC) M05.79 HTN, goal below 130/80 I10 History of colon polyps Z86.010 Fuchs' corneal dystrophy H18.519 Morbid obesity with BMI of 40.0-44.9, adult ([facility]) E66.01, Z68.41 Dyslipidemia, goal LDL below 160 E78.5 Osteoporosis with symptom management only M81.0 Diabetes mellitus without complication ([facility]) E11.9 Constitutional: (-) fever and (-) chills ENT: (-) stridor Cardiovascular: (-) chest pain Male : See HPI Musculoskeletal: (+) joint pain Neurology: (-) negative: no focal neurologic defect Psychiatry: (-) negative: no depression or anxiety Physical Exam Nursing note reviewed. Constitutional: General: He is not in acute distress. Appearance: He is obese. He is not ill-appearing or toxic-appearing. HENT: Head: Normocephalic and atraumatic. Right Ear: External ear normal. Left Ear: External ear normal. Nose: Nose normal. Mouth/Throat: Mouth: Mucous membranes are moist. Eyes: Extraocular Movements: Extraocular movements intact. Pulmonary: Effort: Pulmonary effort is normal. No respiratory distress. Musculoskeletal: Cervical back: Normal range of motion. Skin: Coloration: Skin is not pale. Neurological: General: No focal deficit present. Mental Status: He is oriented to person, place, and time. Psychiatric: Mood and Affect: Mood normal. Behavior: Behavior normal. Thought Content: Thought content normal. Impression/Plan: 78-year-old male with high-volume, high-grade prostate cancer. NCCN guidelines are reviewed. Seen local regional disease patient should be a candidate for combination androgen deprivation therapy, abiraterone and consideration of external beam radiation therapy.Will refer to Medical Oncology and Radiation Oncology. Will start bicalutamide today. Seen elevatedcreatinine and evidence of hydronephrosis will start clean intermittent catheterization today untilandrogen therapy can hopefully shrink the prostate and improve bladder emptying. Prognosis and possible therapies are reviewed. Will see the patient back in 1-2 months with a repeat lab work to checkon improvement of renal function and PSA. Questions are answered, contact us sooner with any other urologic difficulties. If the patient has difficulties with CIC we can place Ingram catheter for 2-4 weeks until hormone therapy can take effect. Will return to the office after 2 weeks of alpha receptor blockade for Lupron injection. Above content is personally reviewed.. hmvo Vinay Sexton MD 8:56 AM 03/27/2023 documented in this encounter Nursing Notes * Elena Figueroa LPN - 03/31/2023 11:45 AM EDT Patient must self-catheterize indefinitely due to chronic urinary retention. * Elena Figueroa LPN - 03/27/2023 9:52 AM EDT Patient instructed on CIC technique. Patient able to successfully self- catheterize with 18 fr coudet catheter for return of 2000 mL urine. Patient unable to pass straight catheter due to prostate enlargement. Instructed to self-catheterize 4 times daily for output less than 400 mL each time. * Elena Figueroa LPN - 03/27/2023 8:52 AM EDT 03/16 prostate biopsy results. Patient presents with son. documented in this encounter Plan of Treatment Upcoming Encounters Date Type Specialty Care Team Description 04/08/2023 Nurse Only Urology Garrett, Nurse Urology [place] [address] [place] [address] 05/19/2023 Office Visit Urology Vinay Sexton MD [address] [place] [address] [place] [address] 05/29/2023 Office Visit Family Medicine Kat Huitron DO [address] [place], [place] [address] 09/10/2023 Office Visit Rheumatology Mendel Wilson MD [address] [facility], [place] [address] Scheduled Orders Name Type Priority Associated Diagnoses Orde r Schedule PSA Lab Routine Prostate cancer (HCC) Expected: 04/27/2023, Expires: 03/27/2024 BASIC METABOLIC PANEL Lab Routine Prostate cancer (HCC) Expected: 04/27/2023, Expires: 03/27/2024 Scheduled Procedures Name Priority Associated Diagnoses Date/Ti me COLONOSCOPY FLEXIBLE PROXIMAL DIAGNOSTIC Recall Hx of colonic polyps Scheduled Referrals Name Type Priority Associated Diagnoses Orde r Schedule RADIATION/ONCOLOGY REFERRAL OP Referral Within 10 days (routine) Prostate cancer (HCC) Ordered: 03/27/2023 HEMATOLOGY/ONCOLOGY REFERRAL OP Referral Within 10 days (routine) Prostate cancer (HCC) Ordered: 03/27/2023 Health Maintenance Due Date Last Done Comments [...] D LEVEL ONCE IN A LIFETIME-USE SMARTSET# [id number] Completed 05/27/2021, 09/07/2019, 01/10/2019, Additional history exists [...] prostate documented in this encounter Care Teams Facilities Maintenance Technician Relationship Specialty Start Date End Date Kat Huitron, [address] [place] [address] PCP - General Family Medicine 07/11/19 documented as of this encounter
--- OUTSIDE RECORDS SUMMARY | 2023-09-01 04:51 | External Medical Summary | Summary of Care ---
Author Name Unknown Organization [facility] Address [address] [facility] [place] [address] Phone [phone] Care Team Providers Care Mechanical Inspector Name Role Phone Elana Rhianna Keturah DOMINGUEZ Primary Care Provider Reason for Visit * Reason Onset Date Comments Abnormal Test Results 03/27/2023 Encounter Details Date Type Department Care Team Description 03/27/2023 Telephone Rheumatology [facility] [address] [place] [address] Mendel Wilson MD [address] [place] [address] Abnormal Test Results Allergies Active Allergy Reactions Severity Noted Date Comments Brent Inhibitors Cough Low 11/26/2017 Alendronate Sodium Muscle pain 04/11/2019 Heartburn, constipation, joint pain Misoprostol Diarrhea 08/08/2003 Niacin Er 11/26/2010 Gas, hot flashes Pollen 01/01/2018 Watery eyes, sneezing Pravastatin 02/26/2007 Upset stomach, all .Statins Simvastatin 02/26/2007 Upset stomach documented as of this encounter (statuses as of 04/07/2023) Medications Medication Sig Dispensed Refills Start Date [...] as of this encounter (statuses as of 04/07/2023) Active Problems Problem Noted Date Diabetes mellitus [...] glucose 12/16/2005 Macular degeneration 12/02/1999 DISC DIS [id number] documented as of this encounter (statuses as of 04/07/2023) Resolved Problems Problem Noted Date Resolved Date Prediabetes 11/08/2018 04/17/2022 Overview: Per Prediabetes protocol #1 Morbid (severe) obesity due to excess calories 0 08/19/2017 03/09/2019 Infective otitis externa 09/08/2012 013 Cough 07/03/2012 08/18/2012 Benign neoplasm of colon 05/10/2007 019 Overview: adenomatous repeat colonoscopy in 5 years ARTHRITIS,RHEUMATOID 07/07/2006 05/12/2016 [id number] 07/07/2006 11/17/19 10 Overview: Renamed Per Clinical Trials Billing Project. Pt is a participant in the [employer] (Consortium of Rheumatology [place]) national data collection study. For further information please call Dr Hari Clark or Julia White, RN, CCRC at [phone] [facility] RESEARCH OTHER*[id number] 07/07/2006 01/28/2010 Overview: Renamed Per Clinical Trials Billing Project. Pt is a participant in the [employer] (Consortium of Rhe[employer]ology [place] national data collection study. For further information please call Dr Hari Clark or Julia White, RN, CCRC at [phone] Hearing loss 12/02/1999 03/29/2013 documented as of this encounter (statuses as of 04/07/2023) Immunizations Name Administration Dates Next Due COVID-19 [...] in 1 month. * Telephone Encounter - Imani Baez [facility] - 03/27/2023 10:34 AM EDT Labs done [...] kidney function. Thank you, Imani Baez, PharmD [facility] Clinical Pharmacist Rheumatology Department [phone] 03/27/2023 documented in this encounter Plan of Treatment Upcoming Encounters Date Type Specialty Care Team Description 04/08/2023 Nurse Only Urology [place], Nurse Urology [place] [address] [facility] [place] [address] 04/10/2023 Office Visit Hematology Oncology Patrice Puente MD [address] [place] [address] 05/19/2023 Office Visit Urology Vinay Sexton MD [address] [place] [address] [place] [address] 05/29/2023 Office Visit Family Medicine Rhianna Huitron DO [address] [place] [address] 09/10/2023 Office [place] [address] [place] [address] [place] [address] Scheduled Orders Name Type Priority Associated Diagnoses [...] D LEVEL ONCE IN A LIFETIME-USE SMARTSET# [id number] Completed 05/27/2021, 09/07/2019, 01/10/2019, Additional history exists [...] arthritis documented in this encounter Care Teams Mechanical Inspector Relationship Specialty Start Date End Date Rhianna Huitron, [address] [place] [address] PCP - General Family Medicine 07/11/19 documented as of this encounter
--- OUTSIDE RECORDS SUMMARY | 2023-09-01 04:51 | External Medical Summary | Summary of Care ---
Author Name Unknown Organization [facility] Address [address] [place] [address] Phone [phone] Care Team Providers Care Traveling Engineer Name Role Phone Rhianna Huitron DO Primary Care Provider [phone] Reason for Visit * Reason Onset Date Comments Referral 03/30/2023 New patient refe rral Encounter Details Date Type Department Care Team Description 03/30/2023 Telephone Radiation Oncology, [facility] [address] [place] [address] Services, Scheduling [address] [place] [address] Referral (New patient referral ) Allergies Active Allergy Reactions Severity Noted Date [...] glucose 12/16/2005 Macular degeneration 12/02/1999 DISC DIS [id number] documented as of this encounter (statuses as of 03/30/2023) Resolved Problems Problem Noted Date Resolved Date Prediabetes 11/08/2018 04/17/2022 Overview: Per Prediabetes protocol #1 Morbid (severe) obesity due to excess calories 0 08/19/2017 03/09/2019 Infective otitis externa 09/08/2012 013 Cough 07/03/2012 08/18/2012 Benign neoplasm of colon 05/10/2007 019 Overview: adenomatous repeat colonoscopy in 5 years ARTHRITIS,RHEUMATOID 07/07/2006 05/12/2016 [id number] 07/07/2006 11/17/19 10 Overview: Renamed Per Clinical Trials Billing Project. Pt is a participant in the [employer] (Consortium of [place] national data collection study. For further information please call Dr Hari Clark or Julia White, RN, CCRC at [phone] [facility] RESEARCH OTHER*[id number] 07/07/2006 01/28/2010 Overview: Renamed Per Clinical Trials Billing Project. Pt is a participant in the [facility] (Consortium of [place]ology [place] national data collection study. For further information please call Dr Hari Clark or Julia White, RN, CCRC at [phone] Hearing loss 12/02/1999 03/29/2013 documented as of this encounter (statuses as of 03/30/2023) Immunizations Name Administration Dates Next Due COVID-19 mRNA, LNP-s, No Pre serve, 2-Dose Series (Phorm) 06/14/2021,10/10/2020,09/12/2020 COVID-19, LNP-s, No Preserve , Yousuf-sucrose, [...] Miscellaneous Notes * Telephone Encounter - KARLOS Thomas - 03/30/2023 2:44 PM EDT Patient is being referred for hematology oncology. Please reach out to patient to schedule. * Telephone Encounter - KARLOS Thomas - 03/30/2023 2:44 PM EDT Radiation oncology referral faxed to [facility]. * Telephone Encounter - Vinay Sexton MD - 03/30/2023 2:18 PM EDT Do we confirm desired location of evaluation with patient prior to forwarding consult? Please forward info to [facility] Rad Onc. Thx, HM * Telephone Encounter - KARLOS Scott - 03/30/2023 1:46 PM EDT Good day. I spoke to patient and he would prefer [facility] [place]. Can you please send the referral and notes and results there? Thank you. documented in this encounter Plan of Treatment Upcoming Encounters Date Type Specialty Care Team Description 04/08/2023 Nurse Only UrologNurse Alexandro [address] [place] [address] 05/19/2023 Office Visit Vinay Cole MD [address] [place] [address] [place] [address] 05/29/2023 Office Visit Family Medicine Rhianna Huitron, [address] [place], [place] [address] 09/10/2023 Office Visit Rheumatology Mendel Wilson MD [address] [place] [address] Scheduled Procedures Name Priority Associated Diagnoses Date/Ti [...] D LEVEL ONCE IN A LIFETIME-USE SMARTSET# [id number] Completed 05/27/2021, 09/07/2019, 01/10/2019, Additional history exists [...] filedocumented as of this encounter Care Teams Traveling Engineer Relationship Specialty Start Date End Date Rhianna Huitron, DO [address] [place] [address] PCP - General Family Medicine 07/11/19 documented as of this encounter
--- OUTSIDE RECORDS SUMMARY | 2023-09-01 04:51 | External Medical Summary | Summary of Care ---
Author Name Unknown Organization [facility] Address [address] [facility] [facility] [address] Phone [phone] Care Team Providers Care Measurement Technician Name Role Phone OrlandoRhianna stinson Keturah DOMINGUEZ Primary Care Provider [phone] Encounter Details Date Type Department Care Team Description 03/30/2023 Telephone Urology Samy Bhatt [address] [place] [address] [place] [phone] Vinay Sexton MD [address] [place] [...] glucose 12/16/2005 Macular degeneration 12/02/1999 DISC DIS [id number] documented as of this encounter (statuses as of 03/30/2023) Resolved Problems Problem Noted Date Resolved Date Prediabetes 11/08/2018 04/17/2022 Overview: Per Prediabetes protocol #1 Morbid (severe) obesity due to excess calories 0 08/19/2017 03/09/2019 Infective otitis externa 09/08/2012 013 Cough 07/03/2012 08/18/2012 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 Pt is a participant in the [employer] (Consortium of Rheumatology Researchers [place]) national data collection study. For further information please call Dr Hari Clark or Julia White, RN, CCRC at [phone] [facility] RESEARCH OTHER*[id number] 07/07/2006 01/28/2010 Overview: Renamed Per Clinical Trials Billing Project. Pt is a participant in the [employer] (Consortium of Rheumatology Researchers [place]) national data collection study. For further information please call Dr Hari Clark or Julia White, RN, CCRC at [phone] Hearing loss 12/02/1999 03/29/2013 documented as of this encounter (statuses as of 03/30/2023) Immunizations Name Administration Dates Next Due COVID-19 mRNA, LNP-s, No Pre serve, 2-Dose Series ([employer]) 06/14/2021,10/10/2020,09/12/2020 COVID-19, LNP-s, No Preserve , Yousuf-sucrose, [...] Miscellaneous Notes * Telephone Encounter - KARLOS Thmoas - 03/30/2023 10:16 AM EDT Patient called in and needed to speak with nurse in regards to getting catheters. Please callback. documented in this encounter Plan of Treatment Upcoming Encounters Date Type Specialty Care Team Description 04/08/2023 Nurse Only Urology Garrett, Nurse Urology [place] [address] [place] [address] 05/19/2023 Office Visit Urology Vinay Sexton MD [address] [place] [address] [place] [phone] 05/29/2023 Office Visit Family Medicine Rhianna Huitron, DO [address] [place] [address] 09/10/2023 Office Visit Rheumatology Mendel Wilson MD [address] [place] [address] Scheduled Procedures Name Priority Associated Diagnoses Date/Ti [...] D LEVEL ONCE IN A LIFETIME-USE SMARTSET# [id number] Completed 05/27/2021, 09/07/2019, 01/10/2019, Additional history exists [...] filedocumented as of this encounter Care Teams Measurement Technician Relationship Specialty Start Date End Date Rhianna Huitron, [address] [place] [address] PCP - General Family Medicine 07/11/19 documented as of this encounter
--- OUTSIDE RECORDS SUMMARY | 2023-09-01 04:51 | External Medical Summary ---
Author Name Unknown Address Unknown Organization K01:LABORATORY [facility] [place] - [address] [place] [address] Laboratory Report Ordering Provider Test Date Status JOHNATHON CASILLAS 04/10/2023 13:02:34 Final Observation Date Value Abnormality Reference (Units ) Status Vitamin B12 04/10/2023 13:02:34 069 [id number] (pg/mL) Final Performing Location [facility] - [address] [place] [address]
--- OUTSIDE RECORDS SUMMARY | 2023-09-01 04:51 | External Medical Summary | Summary of Care ---
Author Name Unknown Organization [facility] Address [address] [place] [address] Phone [phone] Care Team Providers Care Pizza Driver Name Role Phone Orlandomilad Rhianna Keturah DOMINGUEZ Primary Care Provider [phone] Encounter Details Date Type Department Care Team Description 03/30/2023 Telephone Urology, [facility] [address] [facility] [place] [address] Vinay Sexton MD [address] [place] [address] [place] [address] Allergies Active Allergy Reactions Severity Noted [...] glucose 12/16/2005 Macular degeneration 12/02/1999 DISC DIS [id number] documented as of this encounter (statuses as of 03/30/2023) Resolved Problems Problem Noted Date Resolved Date Prediabetes 11/08/2018 04/17/2022 Overview: Per Prediabetes protocol #1 Morbid (severe) obesity due to excess calories 0 08/19/2017 03/09/2019 Infective otitis externa 09/08/2012 013 Cough 07/03/2012 08/18/2012 Benign neoplasm of colon 05/10/2007 019 Overview: adenomatous repeat colonoscopy in 5 years ARTHRITIS,RHEUMATOID 07/07/2006 05/12/2016 [id number] 07/07/2006 11/17/19 10 Overview: Renamed Per Clinical Trials Billing Project. Pt is a participant in the [employer] (Consortium of Rheumatology Researchers [place]) national data collection study. For further information please call Dr Hari Clark or Julia White, RN, CCRC at [phone] [facility] RESEARCH OTHER*[id number] 07/07/2006 01/28/2010 Overview: Renamed Per Clinical Trials Billing Project. Pt is a participant in the [employer] (Consortium of Rheumatology Researchers [place]) national data collection study. For further information please call Dr Hari Clark or Julia White, RN, CCRC at [phone] Hearing loss 12/02/1999 03/29/2013 documented as of this encounter (statuses as of 03/30/2023) Immunizations Name Administration Dates Next Due COVID-19 mRNA, LNP-s, No Pre serve, 2-Dose Series ([employer]) 06/14/2021,10/10/2020,09/12/2020 COVID-19, LNP-s, No Preserve , Yousuf-sucrose, [...] Telephone Encounter - Rhianna Huitron DO - 03/30/2023 11:52 AM EDT Nursing pls contact pt and see what symptoms he is having Any abdominal pain? If so he needs seen here in office if not severe or to the ER * Telephone Encounter - Vinay Sexton MD - 03/30/2023 9:17 AM EDT Go back to single dose tamsulosin, ER with fevers, chills, intractable pain. Follow-up with our service, medical oncology and radiation oncology as scheduled. Thanks, HM * Telephone Encounter - Monica Arroyo LPN - 03/30/2023 8:31 AM EDT Pt called and wants to make Dr Sexton aware he currently has a flare of diverticulitis and has bleeding, said no pain, no fever. He currently has himself on a liquid diet of broth, jello, water, popsicles, etc. The patient also stated Dr Sexton increased his Tamsulosin and he has episodes of lightheadedness/dizziness. He monitors his BP regularly at home and averages in the 120's/60's. Patient aware to change positions slowly and monitor for orthostasis. Do you want him to back down to 1 Tamsulosin daily due to this? I told the patient I can include Dr Huitron's office to make them aware of his diverticulitis symptoms, he was made aware to reach out to their office for further care in regards to this. Please advise, thanks. Monica Mora LPN documented in this encounter Plan of Treatment Upcoming Encounters Date Type Specialty Care Team Description 04/08/2023 Nurse Only Urology Garrett, Nurse Urology [place] [address] [place] [address] 05/19/2023 Office Visit Urology Vinay Sexton MD [address] [place] [address] [place] [address] 05/29/2023 Office Visit Family Medicine Rhianna [facility]ron, [facility] [address] [facility] [address] 09/10/2023 Office Visit [facility] [address] [facility] [address] Scheduled Procedures Name Priority Associated Diagnoses Date/Ti [...] D LEVEL ONCE IN A LIFETIME-USE SMARTSET# [id number] Completed 05/27/2021, 09/07/2019, 01/10/2019, Additional history exists [...] filedocumented as of this encounter Care Teams Pizza Driver Relationship Specialty Start Date End Date Rhianna Huitron, DO [address] [place], [place] [phone] PCP - General Family Medicine 07/11/19 documented as of this encounter
--- OUTSIDE RECORDS SUMMARY | 2023-09-01 04:52 | External Medical Summary ---
Author Name Unknown Address Unknown Organization K01:[facility] - [address] [place] [address] Laboratory Report Ordering Provider Test Date Status GABRIEL RAMIRES 03/26/2023 10:24:34 Final Observation Date Value Abnormality Reference (Units ) Status BUN 03/26/2023 10:24:34 44 Above high normal 6- 20 (mg/dL) Final Performing Location [facility] - [address] [place] [address]
--- OUTSIDE RECORDS SUMMARY | 2023-09-01 04:52 | External Medical Summary ---
Author Name Unknown Address Unknown Organization K01:LAB[facility]ATORY [place] [address] [place] [address] Laboratory Report Ordering Provider Test Date Status KEYLAPRINCESSLONA 03/26/2023 10:24:34 Final Observation Date Value Abnormality Reference (Units ) Status Creatinine 03/26/2023 10:24:34 2.4 Above high normal 0.6-1.2 (mg/dL) Final Glomerular filtration rate/1.73 sq M.predicted [Volume Rate/Area] in Serum, Plasma or Blood by Creatinine-based formula (CKD-EPI) 03/26/2023 10:24:34 27 Below low normal >=60 (mL/min) Final eGFR is calculated based on the CKD-EPI 2020 equation Performing Location [facility] [place] [facility] [place] [address]
--- OUTSIDE RECORDS SUMMARY | 2023-09-01 04:52 | External Medical Summary | Summary of Care ---
Author Name Unknown Organization [facility] Address [address] [place] [place] [address] Phone [phone] Care Team Providers Care Broommaking Supervisor Name Role Phone Orlandomilad Rhianna Keturah DOMINGUEZ Primary Care Provider [phone] Encounter Details Date Type Department Care Team Description 03/30/2023 Telephone Urology, [facility] [address] [facility] [place] [address] Vinay Sexton MD [address] [place] [address] [place] [address] Allergies Active Allergy Reactions Severity [...] glucose 12/16/2005 Macular degeneration 12/02/1999 DISC DIS [id number] documented as of this encounter (statuses as of 03/30/2023) Resolved Problems Problem Noted Date Resolved Date Prediabetes 11/08/2018 04/17/2022 Overview: Per Prediabetes protocol #1 Morbid (severe) obesity due to excess calories 0 08/19/2017 03/09/2019 Infective otitis externa 09/08/2012 013 Cough 07/03/2012 08/18/2012 Benign neoplasm of colon 05/10/2007 019 Overview: adenomatous repeat colonoscopy in 5 years ARTHRITIS,RHEUMATOID 07/07/2006 05/12/2016 [id number] 07/07/2006 11/17/19 10 Overview: Renamed Per Clinical Trials Billing Project. Pt is a participant in the [employer] (Consortium of Rheumatology Researchers [place]) national data collection study. For further information please call Dr Hari Clark or Julia White, RN, CCRC at [phone] [facility] RESEARCH OTHER*[id number] 07/07/2006 01/28/2010 Overview: Renamed Per Clinical Trials Billing Project. Pt is a participant in the [employer] (Consortium of Rheumatology Researchers [place] national data collection study. For further information please call Dr Hari Clark or Julia White, RN, CCRC at [phone] Hearing loss 12/02/1999 03/29/2013 documented as of this encounter (statuses as of 03/30/2023) Immunizations Name Administration Dates Next Due COVID-19 mRNA, LNP-s, No Pre serve, 2-Dose Series ([employer]) 06/14/2021,10/10/2020,09/12/2020 COVID-19, LNP-s, No Preserve , Yousuf-sucrose, [...] encounter Miscellaneous Notes * Telephone Encounter - Monica Arroyo LPN [...] Garrett, Nurse Urology [place] [address] [place] [address] 05/19/2023 Office Visit Urology Vinay Sexton MD [address] [place] [address] [place] [address] 05/29/2023 Office Visit Family Medicine Rhianna Huitron DO [address] [place] [address] 09/10/2023 Office Visit Rheumatology Mendel Wilson MD [address] [place] [address] Scheduled Procedures Name Priority Associated Diagnoses Date/Ti [...] D LEVEL ONCE IN A LIFETIME-USE SMARTSET# [id number] Completed 05/27/2021, 09/07/2019, 01/10/2019, Additional history exists [...] filedocumented as of this encounter Care Teams Broommaking Supervisor Relationship Specialty Start Date End Date Rhianna Huitron, [address] [place] [facility] [place] [address] PCP - General Family Medicine 07/11/19 documented as of this encounter
--- OUTSIDE RECORDS SUMMARY | 2023-09-01 04:52 | External Medical Summary ---
Author Name Unknown Address Unknown Organization K01:LABORATORY [facility] [place] - [address] [place] [address] Laboratory Report Ordering Provider Test Date Status GABRIEL RAMIRES 03/26/2023 10:24:34 Final Observation Date Value Abnormality Reference (Units ) Status ALT (Alanine aminotransferase) 03/26/2023 10:24:34 19 10-50 (U/L) Final Performing Location [facility] - [address] [place] [address]
--- OUTSIDE RECORDS SUMMARY | 2023-09-01 04:52 | External Medical Summary | Summary of Care ---
Author Name Unknown Organization [facility] Address [address] [place] [address] Phone [phone] Care Team Providers Care Cpo Name Role Phone Orlandomilad Rhianna Keturah DOMINGUEZ Primary Care Provider Encounter Details Date Type Department Care Team Description 03/27/2023 Telephone Urology, [facility] [address] [facility] [place] [address] Vinay Sexton MD [address] [place] [address] [place] [address] Allergies Active Allergy Reactions Severity Noted Date Comments Brent Inhibitors Cough Low 11/26/2017 Alendronate Sodium Muscle pain 04/11/2019 Heartburn, constipation, joint pain Misoprostol Diarrhea 08/08/2003 Niacin Er 11/26/2010 Gas, hot flashes Pollen 01/01/2018 Watery eyes, sneezing Pravastatin 02/26/2007 Upset stomach, all .Statins Simvastatin 02/26/2007 Upset stomach documented as of this encounter (statuses as of 03/27/2023) Medications Medication Sig Dispensed Refills Start Date [...] as of this encounter (statuses as of 03/27/2023) Active Problems Problem Noted Date Diabetes mellitus [...] glucose 12/16/2005 Macular degeneration 12/02/1999 DISC DIS [id number] documented as of this encounter (statuses as of 03/27/2023) Resolved Problems Problem Noted Date Resolved Date Prediabetes 11/08/2018 04/17/2022 Overview: Per Prediabetes protocol #1 Morbid (severe) obesity due to excess calories 0 08/19/2017 03/09/2019 Infective otitis externa 09/08/2012 013 Cough 07/03/2012 08/18/2012 Benign neoplasm of colon 05/10/2007 019 Overview: adenomatous repeat colonoscopy in 5 years ARTHRITIS,RHEUMATOID 07/07/2006 05/12/2016 [id number] 07/07/2006 11/17/19 10 Overview: Renamed Per Clinical Trials Billing Project. Pt is a participant in the [employer] (Consortium of Rheumatology Researchers [place] national data collection study. For further information please call Dr Hari Clark or Julia White, RN, CCRC at [phone] [facility] RESEARCH OTHER*[id number] 07/07/2006 01/28/2010 Overview: Renamed Per Clinical Trials Billing Project. Pt is a participant in the [employer] (Consortium of Rheumatology Researchers [place] national data collection study. For further information please call Dr Hari Clark or Julia White, RN, CCRC at [phone] Hearing loss 12/02/1999 03/29/2013 documented as of this encounter (statuses as of 03/27/2023) Immunizations Name Administration Dates Next Due COVID-19 mRNA, LNP-s, No Pre serve, 2-Dose Series ([employer]) 06/14/2021,10/10/2020,09/12/2020 COVID-19, LNP-s, No Preserve , Yousuf-sucrose, [...] * Telephone Encounter - KARLOS Thomas - 03/27/2023 9:17 AM EDT Patient is being referred to see Hematology Oncology. Please reach out to patient to schedule. documented in this encounter Plan of Treatment Upcoming Encounters Date Type Specialty Care Team Description 04/08/2023 Nurse Only Urology Garrett, Nurse Urology [place] [address] [place] [address] 05/19/2023 Office Visit Urology Vinay Sexton MD [address] [place] [address] [place] [address] 05/29/2023 Office Visit Family Medicine Rhianna Huitron DO [address] [place] [address] 09/10/2023 Office Visit Rheumatology Mendel Wilson MD [address] [place] [address] Scheduled Procedures Name Priority Associated Diagnoses Date/Ti me COLONOSCOPY FLEXIBLE PROXIMAL DIAGNOSTIC Recall Hx of colonic polyps Health Maintenance Due Date Last Done Comments *BISPHONATE OR OTHER ACCEPTABLE MEDICATION NEEDED FOR OSTEOPOROSIS (REFER TO SMARTSET #1146) 08/31/2019 DXA Scan 01/10/2021 01/10/2019, 12/2005, 07/07/2006 Depression [...] D LEVEL ONCE IN A LIFETIME-USE SMARTSET# [id number] Completed 05/27/2021, 09/07/2019, 01/10/2019, Additional history exists [...] filedocumented as of this encounter Care Teams Cpo Relationship Specialty Start Date End Date Rhianna Huitron, [address] [place] [address] PCP - General Family Medicine 07/11/19 documented as of this encounter
--- OUTSIDE RECORDS SUMMARY | 2023-09-01 04:52 | External Medical Summary | Summary of Care ---
Author Name Unknown Organization [facility] Address [address] [facility] [place] [address] Phone [phone] Care Team Providers Care Manager Pet Name Role Phone Rhianna Huitron DO Primary Care Provider Reason for Visit * Reason Comments Outpatient Testing Encounter Details Date Type Department Care Team Description 03/26/2023 Laboratory Laboratory, [facility] [address] [place] [address] [facility] [address] [place] [address] Encounter for long-term (current) use of medications Allergies Active Allergy Reactions Severity Noted Date Comments Brent Inhibitors Cough Low 11/26/2017 Alendronate Sodium Muscle pain 04/11/2019 Heartburn, constipation, joint pain Misoprostol Diarrhea 08/08/2003 Niacin Er 11/26/2010 Gas, hot flashes Pollen 01/01/2018 Watery eyes, sneezing Pravastatin 02/26/2007 Upset stomach, all .Statins Simvastatin 02/26/2007 Upset stomach documented as of this encounter (statuses as of 03/26/2023) Medications Medication Sig Dispensed Refills Start Date [...] 11/09/2022 Active Methotrexate Sodium 2.5 MG Oral TabletIndications:A rthritis, rheumatoid (HCC) TAKE 8 TABLETS BY MOUTH ONE TIME PER WEEK 96 Tablet 1 12/12/2022 Active Sulfamethoxazole-Tr imethoprim 800-160 MG Oral Tablet (Bactrim DS) Take 1 Tablet by mouth in the morning and 1 Tablet before bedtime. Start 2 days prior to biopsy. 10 Tablet 0 12/10/2022 Active Tamsulosin HCl 0.4 MG Oral Capsule (Flomax) Take 1 Capsule by mouth in the morning. 90 Capsule 3 01/02/2023 Active Losartan Potassium 25 MG Oral Tablet (Cozaar) TAKE 1/2 TABLET BY MOUTH EVERY DAY 45 Tablet 1 01/23/2023 Active documented as of this encounter (statuses as of 03/26/2023) Active Problems Problem Noted Date Diabetes mellitus [...] glucose 12/16/2005 Macular degeneration 12/02/1999 DISC DIS [id number] documented as of this encounter (statuses as of 03/26/2023) Resolved Problems Problem Noted Date Resolved Date Prediabetes 11/08/2018 04/17/2022 Overview: Per Prediabetes protocol #1 Morbid (severe) obesity due to excess calories 0 08/19/2017 03/09/2019 Infective otitis externa 09/08/2012 013 Cough 07/03/2012 08/18/2012 Benign neoplasm of colon 05/10/2007 019 Overview: adenomatous repeat colonoscopy in 5 years ARTHRITIS,RHEUMATOID 07/07/2006 05/12/2016 [id number] 07/07/2006 11/17/19 10 Overview: Renamed Per Clinical Trials Billing Project. Pt is a participant in the [facility] (Consortium of Rheumatology Researchers [place] national data collection study. For further information please call Dr Hari Clark or Julia White, RN, CCRC at [phone] [facility] RESEARCH OTHER*[id number] 07/07/2006 01/28/2010 Overview: Renamed Per Clinical Trials Billing Project. Pt is a participant in the [facility] (Consortium of Rheumatology Researchers [place] national data collection study. For further information please call Dr Hari Clark or Julia White, RN, CCRC at [phone] Hearing loss 12/02/1999 03/29/2013 documented as of this encounter (statuses as of 03/26/2023) Immunizations Name Administration Dates Next Due COVID-19 mRNA, LNP-s, No Pre serve, 2-Dose Series ([employer]) 06/14/2021,10/10/2020,09/12/2020 COVID-19, LNP-s, No Preserve , Yousuf-sucrose, [...] Encounters Date Type Specialty Care Team Description 03/27/2023 Telemedicine Urology Vinay Sexton MD [address] [place] [address] [place] [address] 7, Telemed [place] [facility]m [address] [place] [address] 05/29/2023 Office Visit Family Medicine Rhianna Huitron, DO [address] [place], [place] [phone] 09/10/2023 Office Visit Rheumatology Mendel Wilson MD [address] [place] [address] Pending Results Name Type Priority Associated Diagnoses Date /Time ALT Lab Routine Encounter for long-term (current) use of medications 03/26/2023 10:24 AM EDT AST Lab Routine Encounter for long-term (current) use of medications 03/26/2023 10:24 AM EDT BUN Lab Routine Encounter for long-term (current) use of medications 03/26/2023 10:24 AM EDT CREATININE Lab Routine Encounter for long-term (current) use of medications 03/26/2023 10:24 AM EDT CBC WITH WBC DIFFERENTIAL Lab Routine Encounter for long-term (current) use of medications 03/26/2023 10:24 AM EDT CBC Lab Routine Encounter for long-term (current) use of medications 03/26/2023 10:24 AM EDT DIFFERENTIAL, AUTOMATED Lab Routine Encounter for long-term (current) use of medications 03/26/2023 10:24 AM EDT Scheduled Procedures Name Priority Associated Diagnoses Date/Ti me COLONOSCOPY FLEXIBLE PROXIMAL DIAGNOSTIC Recall Hx of colonic polyps Health Maintenance Due Date Last Done Comments *BISPHONATE OR OTHER ACCEPTABLE MEDICATION NEEDED FOR OSTEOPOROSIS (REFER TO SMARTSET #1146) 08/31/2019 DXA Scan 01/10/2021 01/10/2019, 12/0 12/2005, 07/07/2006 Depression Screening, Annual for Pts 12 and Over 03/13/2021 03/13/2020 Influenza Vaccine (FLU shot) (#1) 2023 05/08/2022, 05/07/2021, 04/17/2020, Additional history exists Albumin/Creatinine Ratio 04/10/2023 04/10/2022, 0510/2006 HbA1c 06/26/2023 12/24/2022, 11/01, 04/10/2022, Additional history exists DIABETES-FOOT EXAM 12/25/2023 12/24/2022 GFR 12/25/2023 12/24/2022, 12/01, 05/28/2022, Additional history exists COLONOSCOPY-EVERY 5 YRS AGES 18-100 01/22/2024 01/21/2019, 01/21/2019, 05/10/2013, Additional history exists DIABETES-EYE EXAM 01/31/2024 01/30/2023, , 01/25/2021, Additional history exists DTaP,Tdap,and Td Vaccines (3 - Td or Tdap) 12/04/2026 12/04/2016, 12/03/2006, 12/15/1996, Additional history exists Pneumococcal Vaccine: 65+ Years Completed 10/02/2014, 09/01/2011, 07/07/2006 Zoster Vaccines Completed 01/05/2020, 08/05, 10/02/2014 VITAMIN D LEVEL ONCE IN A LIFETIME-USE SMARTSET# [id number] Completed 05/27/2021, 09/07/2019, 01/10/2019, Additional history exists [...] medications documented in this encounter Care Teams Manager Pet Relationship Specialty Start Date End Date Rhianna Huitron, DO [address] [place] [address] PCP - General Family Medicine 07/11/19 documented as of this encounter
--- OUTSIDE RECORDS SUMMARY | 2023-09-01 04:52 | External Medical Summary | Summary of Care ---
Author Name Unknown Organization [facility] Address [address] [place] [facility] [place] [address] Phone [phone] Care Team Providers Care Flow Manager Name Role Phone [place]om[place]ad Rhianna Keturah DOMINGUEZ Primary Care Provider [phone] Encounter Details Date Type Department Care Team Description 03/30/2023 Telephone Urology, [facility] [address] [facility] [place] [address] Vinay Sexton MD [address] [place] [address] [place] [address] Allergies Active Allergy Reactions Severity [...] glucose 12/16/2005 Macular degeneration 12/02/1999 DISC DIS [id number] documented as of this encounter (statuses as of 03/30/2023) Resolved Problems Problem Noted Date Resolved Date Prediabetes 11/08/2018 04/17/2022 Overview: Per Prediabetes protocol #1 Morbid (severe) obesity due to excess calories 0 08/19/2017 03/09/2019 Infective otitis externa 09/08/2012 013 Cough 07/03/2012 08/18/2012 Benign neoplasm of colon 05/10/2007 019 Overview: adenomatous repeat colonoscopy in 5 years ARTHRITIS,RHEUMATOID 07/07/2006 05/12/2016 [id number] 07/07/2006 11/17/19 10 Overview: Renamed Per Clinical Trials Billing Project. Pt is a participant in the [employer] (Consortium of Rheumatology Researchers [place]) national data collection study. For further information please call Dr Hari Clark or Julia White, RN, CCRC at [phone] [facility] RESEARCH OTHER*[id number] 07/07/2006 01/28/2010 Overview: Renamed Per Clinical Trials Billing Project. Pt is a participant in the [employer] (Consortium of Rheumatology Researchers [place]) national data collection study. For further information please call Dr Hari Clark or Julia White, RN, CCRC at [phone] Hearing loss 12/02/1999 03/29/2013 documented as of this encounter (statuses as of 03/30/2023) Immunizations Name Administration Dates Next Due COVID-19 mRNA, LNP-s, No Pre serve, 2-Dose Series ([employer]) 06/14/2021,10/10/2020,09/12/2020 COVID-19, LNP-s, No Preserve , Yousuf-sucrose, [...] encounter Miscellaneous Notes * Telephone Encounter - Vinay Sexton MD [...] 04/08/2023 Nurse Only UrologNurse Alexandro Potts [address] [place] [address] 05/19/2023 Office Visit Vinay Cole MD [address] [place] [address] [place] [address] 05/29/2023 Office Visit Family Medicine Rhianna Huitron, DO [address] [place] [address] 09/10/2023 Office Visit Rheumatology Mendel Wilson MD [address] [place] [address] Scheduled Procedures Name Priority Associated Diagnoses Date/Ti [...] D LEVEL ONCE IN A LIFETIME-USE SMARTSET# [id number] Completed 05/27/2021, 09/07/2019, 01/10/2019, Additional history exists [...] filedocumented as of this encounter Care Teams Flow Manager Relationship Specialty Start Date End Date Rhianna Huitron DO [address] [place] [address] PCP - General Family Medicine 07/11/19 documented as of this encounter
--- OUTSIDE RECORDS SUMMARY | 2023-09-01 04:52 | External Medical Summary ---
Author Name Unknown Address Unknown Organization K01:LAB[facility] [place] - [address] [place] [address] Laboratory Report Ordering Provider Test Date Status GABRIEL RAMIRES 03/26/2023 10:24:34 Final Observation Date Value Abnormality Reference (Units ) Status AST (Aspartate aminotransferase) 03/26/2023 10:24:34 17 10-50 (U/L) Final Performing Location LABORATORY [facility] - [address] [place] [address]
--- OUTSIDE RECORDS SUMMARY | 2023-09-01 04:52 | External Medical Summary ---
Author Name Unknown Address Unknown Organization K0G:[facility] - [address] [place] [address] Laboratory Report Ordering Provider Test Date Status GABRIEL RAMIRES 03/26/2023 10:24:34 Final Observation Date Value Abnormality Reference (Units ) Status SYNC LEUKOCYTES IN BLOOD BY AUTOMATED COUNT 03/26/2023 10:24:34 7.96 4.00-10.80 (K/uL) Final Segs 03/26/2023 10:24:34 71.2 40.0-75.0 (%) Final Lymphs % 03/26/2023 10:24:34 18.0 18.0-42.0 (%) Final Monos 03/26/2023 10:24:34 7.5 1.0-11.0 (%) Final Eosinophils 03/26/2023 10:24:34 2.9 0.0-6.0 (%) Final Basos 03/26/2023 10:24:34 0.4 0.0-2.0 (%) Final Absolute Segs 03/26/2023 10:24:34 5.67 1.80-7.70 (K/uL) Final Lymphs, absolute 03/26/2023 10:24:34 1.43 1.00-4.80 (K/ul) Final Monos, Abs 03/26/2023 10:24:34 0.60 0.00-1.10 (K/uL) Final Eos, Abs 03/26/2023 10:24:34 0.23 0.00-0.70 (K/uL) Final Basos, Abs 03/26/2023 10:24:34 0.03 0.00-0.20 (K/uL) Final Performing Location [facility] - [address] [place] [address]
--- OUTSIDE RECORDS SUMMARY | 2023-09-01 04:52 | External Medical Summary | Summary of Care ---
Author Name Unknown Organization [facility] Address [address] [place] [address] Phone [phone] Care Team Providers Care Block Trader Name Role Phone Kat Huitron DO Primary Care Provider Reason for Referral * Evaluate & Treat - Unlimited Visits (Within 10 days (routine)) - Pending Review Specialty Diagnoses / Procedures Referred By Contac t Referred To Contact Hematology/Oncology / Hematology Oncology Diagnoses Prostate cancer (HCC) Vinay Sexton MD [address] [facility] [address] [place] [address] Referral ID Status Reason Start Date Expiration Date Visits Requested Visits Authorized [id number] Pending Review Specialty Services Required 03/27/2023 999 999 Question Answer Referral Priority Within 10 days (routine) Reason for Referral Malignant Oncology (Solid Organ Cancer) Comments Aggressive prostate cancer * Evaluate & Treat - Unlimited Visits (Within 10 days (routine)) - Pending Review Specialty Diagnoses / Procedures Referred By Contac t Referred To Contact Radiation Oncology Diagnoses Prostate cancer (HCC) Vinay Sexton MD [address] [employer] [facility] [address] [place] [address] Referral ID Status Reason Start Date Expiration Date Visits Requested Visits Authorized [id number] Pending Review Specialty Services Required 03/27/2023 999 [...] RETURN APPT Kat Huitron, DO [address] [place] [address] Referral ID Status Reason Start Date Expiration Date Visits Requested Visits Authorized [id number] Pending Review Specialty Services Required 03/24/[phone] Encounter Details Date Type Department Care Team Description 03/27/2023 Telemedicine Urology Samy Bhatt [address] [place] [address] [place] [address] Vinay Sexton MD [address] [place] [address] [place] [address] 7, Telemed [facility] Urology Ex Rm [address] [place] [address] Prostate cancer ([facility])* Allergies Active Allergy Reactions Severity [...] glucose 12/16/2005 Macular degeneration 12/02/1999 DISC DIS [id number] documented as of this encounter (statuses as of 03/27/2023) Resolved Problems Problem Noted Date Resolved Date Prediabetes 11/08/2018 04/17/2022 Overview: Per Prediabetes protocol #1 Morbid (severe) obesity due to excess calories 0 08/19/2017 03/09/2019 Infective otitis externa 09/08/2012 013 Cough 07/03/2012 08/18/2012 Benign neoplasm of colon 05/10/2007 019 Overview: adenomatous repeat colonoscopy in 5 years ARTHRITIS,RHEUMATOID 07/07/2006 05/12/2016 [id number] 07/07/2006 11/17/19 10 Overview: Renamed Per Clinical Trials Billing Project. Pt is a participant in the [employer] (Consortium of Rheumatology Researchers [place] national data collection study. For further information please call Dr Hari Clark or Julia White, RN, CCRC at [phone] [facility] RESEARCH OTHER*[id number] 07/07/2006 01/28/2010 Overview: Renamed Per Clinical Trials Billing Project. Pt is a participant in the [employer] (Consortium of Rheumatology Researchers [place]) national data collection study. For further information please call Dr Hari Clark or Julia White, RN, CCRC at [phone] Hearing loss 12/02/1999 03/29/2013 documented as of this encounter (statuses as of 03/27/2023) Immunizations Name Administration Dates Next Due COVID-19 mRNA, LNP-s, No Pre serve, 2-Dose Series ([employer]eld[employer]) 06/14/2021,10/10/2020,09/12/2020 COVID-19, LNP-s, No Preserve , Yousuf-sucrose, [...] from the original note were not included. [id number] PCP: KAT HUITRON [address] [place] [address] [phone] Patient location: CLINIC. I was in a different facility from the patient. After connecting through [employer], patient was verified with two unique identifiers. Patient (or authorized legal hostess party sales representative) was then informed that this [...] that I have reviewed their record in [facility] and presented the opportunity for them to [...] Part Location Core # Core (cm) Diagnosis [place] Grade Group PN inv % CABINET INSTALLER A Left mid 2 3.4 CABINET INSTALLER involving 2 of 2 cores 4+5=9 5 - 95% B Left base 3 3.9 CABINET INSTALLER involving 3 of 3 cores 4+5=9 5 - 90% C Left apex 2 2.8 CABINET INSTALLER involving 2 of 2 cores 4+5=9 5 - 90% D Left anterior 1 1.9 CABINET INSTALLER 4+5=9 5 - 100% E Right mid 2 4.2 CABINET INSTALLER involving 2 of 2 cores 4+5=9 5 - 95% F Right base 2 3.3 CABINET INSTALLER involving 2 of 2 cores 4+5=9 5 + 95% G Right apex 2 3.6 CABINET INSTALLER involving 2 of 2 cores 4+5=9 5 + 95% H Right anterior 1 1.4 CABINET INSTALLER 4+5=9 5 - 90% CORES with CARCINOMA = # Intraductal carcinoma is present *CABINET INSTALLER = Prostate Carcinoma *Core = total length of cores submitted *PN inv = Perineural Invasion *HGPIN = High grade prostatic intraepithelial neoplasia *Grade group 1: Evens Score ? 6 *Grade group 2: [place] score 3+4=7 *Grade group 3: [place] score 4+3=7 *Grade group 4: Evens score 8 *Grade group 5: Evens score 9-10 Reference: Ibrahima PM, Marti PC, Jessika AW, Loi JL. Prognostic [place] grade grouping: data based on the modified Evens scoring system. BJU Int. 2013:111:753-760. Current Outpatient [...] performed by Teddy Rizvi MD at ENDOSCOPY [facility] COLONOSCOPY, DIAGNOSTIC (RECTUM) 01/21/2019 diverticulosis, repeat 5 yrs/COLONOSCOPY FLEXIBLE PROXIMAL DIAGNOSTIC performed by Teddy Rizvi MD at ENDOSCOPY [facility] REMOVE TONSILS & ADENOIDS, AGE 12+ 1979 Tonsillectomy/Adenoids,12+ Y/O Past Medical History: Diagnosis Date Arthritis, rheumatoid (HCC) Benign neoplasm of colon 05/10/07 adenomatous repeat colonoscopy in 5 years Degeneration of lumbosacral intervertebral disc Elevated blood pressure, situational Fuchs' corneal dystrophy 10/19/2018 Impaired fasting glucose Macular degeneration Morbid (severe) obesity due to excess calories ([facility]) 08/19/2017 Patient Active Problem List Diagnosis Code Macular degeneration H35.30 DISC DIS [id number] M51.9 Impaired fasting glucose R73.01 ADVANCE DIRECTIVE INFORMATION Encounter for long-term (current) use of medications Z79.899 BMI 35-39 ISOLATED (SEE ACTUAL BMI) E66.9 Rheumatoid arthritis involving multiple sites with positive rheumatoid factor (HCC) M05.79 HTN, goal below 130/80 I10 History of colon polyps Z86.010 Fuchs' corneal dystrophy H18.519 Morbid obesity with BMI of 40.0-44.9, adult (HCC) E66.01, Z68.41 Dyslipidemia, goal LDL below 160 E78.5 Osteoporosis with symptom management only M81.0 Diabetes mellitus without complication ([facility]) E11.9 Constitutional: (-) fever and [...] Nursing Notes * Elena Figueroa LPN - 03/27/2023 9:52 [...] Garrett, Nurse Urology [place] [address] [place] [address] 05/19/2023 Office Visit Urology Vinay Sexton MD [address] [place] [address] [place] [address] 05/29/2023 Office Visit Family Medicine Kat Huitron DO [address] [place] [address] 09/10/2023 Office Visit Rheumatology Mendel Wilson MD [address] [place] [address] Scheduled Orders Name Type Priority Associated Diagnoses [...] D LEVEL ONCE IN A LIFETIME-USE SMARTSET# [id number] Completed 05/27/2021, 09/07/2019, 01/10/2019, Additional history exists [...] prostate documented in this encounter Care Teams Block Trader Relationship Specialty Start Date End Date Kat Huitron DO [address] [place] [address] PCP - General Family Medicine 07/11/19 documented as of this encounter
--- OUTSIDE RECORDS SUMMARY | 2023-09-01 04:52 | External Medical Summary ---
Author Name Unknown Address Unknown Organization K0G:[facility]ATORY [facility] - [address] [place] [address] Laboratory Report Ordering Provider Test Date Status GABRIEL RAMIRES 03/26/2023 10:24:34 Final Observation Date Value Abnormality Reference (Units ) Status WBC, Total 03/26/2023 10:24:34 7.96 4.00-10.8 0 (K/uL) Final RBC 03/26/2023 10:24:34 3.81 4.50-5.25 (M/uL) Final Hemoglobin 03/26/2023 10:24:34 11.3 Below low normal 14 .0-16.8 (g/dL) Final HCT 03/26/2023 10:24:34 35.6 Below low normal 40. 0-48.4 (%) Final MCV 03/26/2023 10:24:34 93.4 82.0-99.5 (fL) Final MCH 03/26/2023 10:24:34 29.7 27.0-34.0 (pg) Final MCHC 03/26/2023 10:24:34 31.7 32.0-36.0 (g/dL) Final RDW 03/26/2023 10:24:34 14.9 11.5-15.5 (%) Final Platelets 03/26/2023 10:24:34 229 140-400 (K /uL) Final MPV 03/26/2023 10:24:34 11.1 6.6-11.1 ( fL) Final Performing Location LAB[facility]ATORY [facility] - [address] [place] [address]
--- OUTSIDE RECORDS SUMMARY | 2023-09-01 04:52 | External Medical Summary | Summary of Care ---
Author Name Unknown Organization [facility] Address [address] [place] [facility] [place] [place] [address] Phone [phone] Care Team Providers Care Interactive Media Designer Name Role Phone Elana Rhiannajason Rebollar DO Primary Care Provider [phone] Reason for Referral * Precert (Within 10 days (routine)) - Pending Review Specialty Diagnoses / Procedures Referred By Contac t Referred To Contact Radiology Diagnoses Elevated prostate specific antigen (PSA) Procedures PET CT SKULL BASE TO MID THIGH PSMA Vinay Sexton MD [address] [employer] [place] [address] [place] [address] Referral ID Status Reason Start Date Expiration Date V isits Requested Visits Authorized [id number] Pending Review 03/18/2023 999 999 Encounter Details Date Type Department Care Team Description 03/18/2023 Telephone Urology Samy Bhatt [address] [...] as of this encounter (statuses as of 03/19/2023) Medications Medication Sig Dispensed Refills Start Date [...] as of this encounter (statuses as of 03/19/2023) Active Problems Problem Noted Date Diabetes mellitus [...] glucose 12/16/2005 Macular degeneration 12/02/1999 DISC DIS [id number] documented as of this encounter (statuses as of 03/19/2023) Resolved Problems Problem Noted Date Resolved Date Prediabetes 11/08/2018 04/17/2022 Overview: Per Prediabetes protocol #1 Morbid (severe) obesity due to excess calories 0 08/19/2017 03/09/2019 Infective otitis externa 09/08/2012 013 Cough 07/03/2012 08/18/2012 Benign neoplasm of colon 05/10/2007 019 Overview: adenomatous repeat colonoscopy in 5 years ARTHRITIS,RHEUMATOID 07/07/2006 05/12/2016 [id number] 07/07/2006 11/17/19 10 Overview: Renamed Per Clinical Trials Billing Project. Pt is a participant in the [employer] (Consortium of Rheumatology Researchers [place] national data collection study. For further information please call Dr Hari Clark or Julia White, RN, CCRC at [phone] [employer] RESEARCH OTHER*[id number] 07/07/2006 01/28/2010 Overview: Renamed Per Clinical Trials Billing Project. Pt is a participant in the [employer] (Consortium of Rheumatology Researchers [place] national data collection study. For further information please call Dr Hari Clark or Julia White, RN, CCRC at [phone] Hearing loss 12/02/1999 03/29/2013 documented as of this encounter (statuses as of 03/19/2023) Immunizations Name Administration Dates Next Due COVID-19 mRNA, LNP-s, No Pre serve, 2-Dose Series (Pfizer) 06/14/2021,10/10/2020,09/12/2020 COVID-19, LNP-s, No Preserve , Yousuf-sucrose, Ages 12+ (Pfizer) 12/25/2021 Covid-19, Mrna, Lnp-s, Pf, B ivalent, 30 Mcg, IM, 12 yrs and above (Pfizer) 05/23/2022 Pneumococcal Conjugate Vacc, 13 Valent (Prevnar) 10/02/2014 Pneumococcal Polysaccharide PPV23 (Pneumovax) 09/01/2011,07/07/2006 Seasonal Influenza, Quadriva lent Hd (Fluzone Hd) 05/08/2022,05/07/2021 Seasonal Influenza, Quadriva lent, No Preserve, 6 Mons & Above, IM 05/06/2018 Seasonal Influenza, Quadriva lent, No Preserve, Adjuvanted, 65+ Yrs, IM 04/17/2020 Seasonal Influenza, Quadriva lent, No Preserve, IM [...] * Telephone Encounter - KARLOS Thomas - 03/19/2023 9:13 AM EDT PSMA scan scheduled for 03/24/23. * Telephone Encounter - Vinay Sexton MD - 03/18/2023 3:37 PM EDT Patient's biopsy demonstrates high-volume prostate cancer. PSMA scan ordered, we should try to accomplish this before his follow-up for pathology review. Thanks, HM documented in this encounter Plan of Treatment Upcoming Encounters Date Type Specialty Care Team Description 03/24/2023 Imaging Radiology 03/27/2023 Telemedicine Urology Vinay Sexton MD [address] [place] [address] [facility] [place] [address] 7, Telemed [facility] Urology Ex Rm [address] [facility] [place] [address] 05/29/2023 Office Visit Family Medicine Rhianna Huitron DO [address] [place], [place] [address] 09/10/2023 Office Visit Rheumatology Mendel Wilson MD [address] [place] [address] Scheduled Orders Name Type Priority Associated Diagnoses Orde r Schedule PET CT SKULL BASE TO MID THIGH PSMA Medical Imaging Routine Elevated prostate specific antigen (PSA) Expected: 03/18/2023, Expires: 04/18/2024 Scheduled Procedures Name Priority Associated Diagnoses Date/Ti [...] D LEVEL ONCE IN A LIFETIME-USE SMARTSET# [id number] Completed 05/27/2021, 09/07/2019, 01/10/2019, Additional history exists [...] as of this encounter Visit Diagnoses Diagnosis Elevated prostate specific antigen (PSA)- Primary documented in this encounter Care Teams Interactive Media Designer Relationship Specialty Start Date End Date Rhianna Huitron, DO [address] [place] [address] PCP - General Family Medicine 07/11/19 documented as of this encounter
--- OUTSIDE RECORDS SUMMARY | 2023-09-01 04:53 | External Medical Summary | Summary of Care ---
Author Name Unknown Organization [facility] Address [address] [facility] [place] [address] Phone [phone] Care Team Providers Care Carbon Grinder Name Role Phone Rhianna Huitron DO Primary Care Provider [phone] Reason for Visit * Reason Comments Urology Procedure Prostate biopsy Encounter Details Date Type Department Care Team Description 03/16/2023 Office Visit Urology, [facility] [address] [place] [address] Vinay Sexton MD 27 [facility] [address] [place] [address] Elevated prostate specific antigen (PSA)*; History of UTI Allergies Active Allergy Reactions Severity Noted Date Comments Brent Inhibitors Cough Low 11/26/2017 Alendronate Sodium Muscle pain 04/11/2019 Heartburn, constipation, joint pain Misoprostol Diarrhea 08/08/2003 Niacin Er 11/26/2010 Gas, hot flashes Pollen 01/01/2018 Watery eyes, sneezing Pravastatin 02/26/2007 Upset stomach, all .Statins Simvastatin 02/26/2007 Upset stomach documented as of this encounter (statuses as of 03/16/2023) Medications Medication Sig Dispensed Refills Start Date [...] EVERY DAY 45 Tablet 1 01/23/2023 Active Hospital, Clinic, or Other Facility Administered Medication Ordered Dose Route Frequency Start Date End Date Status cefTRIAXone (Rocephin) (250 mg/mL) inj dilution 1,000 mgIndications:Elevated prostate specific antigen (PSA),History of UTI 1000 mg IM ONCE 03/16/2023 03/17/2023 Acti ve documented as of this encounter (statuses as of 03/16/2023) Active Problems Problem Noted Date Diabetes mellitus [...] glucose 12/16/2005 Macular degeneration 12/02/1999 DISC DIS [id number] documented as of this encounter (statuses as of 03/16/2023) Resolved Problems Problem Noted Date Resolved Date Prediabetes 11/08/2018 04/17/2022 Overview: Per Prediabetes protocol #1 Morbid (severe) obesity due to excess calories 0 08/19/2017 03/09/2019 Infective otitis externa 09/08/2012 013 Cough 07/03/2012 08/18/2012 Benign neoplasm of colon 05/10/2007 019 Overview: adenomatous repeat colonoscopy in 5 years ARTHRITIS,RHEUMATOID 07/07/2006 05/12/2016 [id number] 07/07/2006 11/17/19 10 Overview: Renamed Per Clinical Trials Billing Project. Pt is a participant in the [employer] (Consortium of Rheumatology [place]) national data collection study. For further information please call Dr Hari Clark or Julia White, RN, CCRC at [phone] [facility] RESEARCH OTHER*[id number] 07/07/2006 01/28/2010 Overview: Renamed Per Clinical Trials Billing Project. Pt is a participant in the [employer] (Consortium of [place] [place] national data collection study. For further information please call Dr Hari Clark or Julia White, RN, CCRC at [phone] Hearing loss 12/02/1999 03/29/2013 documented as of this encounter (statuses as of 03/16/2023) Immunizations Name Administration Dates Next Due COVID-19 mRNA, LNP-s, No Pre serve, 2-Dose Series ([employer]ensor) 06/14/2021,10/10/2020,09/12/2020 COVID-19, LNP-s, No Preserve , Yousuf-sucrose, [...] Progress Notes * Vinay Sexton MD - 03/16/2023 2:00 PM EDT 78-year-old male here for prostate biopsy for an elevated PSA. Patient's past notes reviewed. IM ceftriaxone provided. Patient has followed prep. BPH: Patient is being seen for BPH today. He has had the following symptoms: slow stream, intermittency and nocturia. Severity is moderate. History of UTI. He has tried no medication. He has previously had no surgery done. Problem has been present for years. Problem is getting worse. PSA Results: Lab Results Component Value Date/Time PSA - [facility] 8.49 (H) 12/10/2022 08:44 AM PSA - [facility] 5.19 (H) 04/10/2022 09:07 AM PSA - [facility] 0.88 12/03/2006 09:18 AM PSA - [facility] 0.68 12/01/2005 11:34 AM PSA - [facility] 0.69 12/03/2004 09:34 AM PSA SCREENING 1.09 07/04/2010 08:41 AM Urology Procedure Note Patient presents for transrectal ultrasound and prostate needle biopsy due to Elevated PSA. He understands risks of bleeding, infection, and urinary retention and did take oral antibiotic prior to procedure as instructed. The ultrasound probe was placed per rectum to view and measure the prostate. Please see the below TRUS interpretation report for details. Trans-Rectal Ultrasound Interpretation Report: We used the [employer] ultrasound unit with end fire rectal probe to perform real time ultrasound imaging of the prostate. The prostate is measured in bothaxial and longitudinal planes. 474.5 centimeters height by 57.4 centimeters width, by 45.9 centimeters longitudinal length (approximate total volume 61.29 cubic centimeters) PSA density is 0.139. Transition zone is heterogeneous and indurated, right greater than left extending to peripheral zone and anterior prostate. There is no median adenoma. Seminal vesicles are normal bilaterally. The peripheral zone is indurated heterogeneous, abnormal. There are no focal anechoic lesions. The prostate margins are smooth anduniform. The rectal wall is thin and unremarkable. The visualized bladder base shows a bladder wall of normal thickness. There is a moderate amount of residual urine present. Impression: 78-year-old male with indurated prostate and heterogeneous abnormality. Prostate needle biopsy: Ultrasound guidance was used for the placement of the needle to perform theprostate biopsies. A periprostatic block was performed with 10 mL 2% plain lidocaine in the usual fashion. Using transrectal real time ultrasound guidance, 14 core biopsies of the prostate were obtained without apparent bleeding. Two biopsies were taken from 6 sextants in the usual fashion (left and right base, midprostate and apex) as well as 2 anterior biopsies, one from each side. Inadequate cores were repeated.All biopsy specimens were sent to pathology for formal evaluation. The patient tolerated the procedure well and ambulated independently to the waiting room. Post biopsy instructions including light activity for the next 2 days and expected post biopsy course including hematuria, blood in the stool and semen are reviewed. He is to complete his antibiotic prophylaxis as prescribed. Worrisome signs and symptoms including fevers, chills, nausea, vomiting and the ability to void are reviewed and should prompt acute evaluation by a physician or ER. Patient should contact us before his follow-up with any questions or concerns. We will discuss his biopsy results at his follow up visit, which is confirmed today. Vinay Sexton MD 1:22 PM 03/16/2023 documented in this encounter Nursing Notes * Monica Arroyo LPN - 03/16/2023 2:03 PM EDT Pt presents in office for prostate biopsy, consent signed documented in this encounter Plan of Treatment Upcoming Encounters Date Type Specialty Care Team Description 03/27/2023 Telemedicine Urology Vinay Sexton MD [address] [place] [address] [address] [place] [address] 7, Telemed [facility] Urology Ex Rm [address] [place] [address] 05/29/2023 Office Visit Family Medicine Rhianna Huitron DO [address] [place] [address] 09/10/2023 Office Visit Rheumatology Mendel Wilson MD [address] [place] [address] Scheduled Orders Name Type Priority Associated Diagnoses Orde r Schedule US ECHO TRANSRECTAL/PROSTATE Medical Imaging Routine Elevated prostate specific antigen (PSA) Ordered: 03/16/2023 NEEDLE/PUNCH BIOPSY OF PROSTATE Procedures Routine Elevated prostate specific antigen (PSA) Ordered: 03/16/2023 US GUIDE NEEDLE PROSTATE BX Medical Imaging Routine Elevated prostate specific antigen (PSA) Ordered: 03/16/2023 Scheduled Procedures Name Priority Associated Diagnoses Date/Ti [...] D LEVEL ONCE IN A LIFETIME-USE SMARTSET# [id number] Completed 05/27/2021, 09/07/2019, 01/10/2019, Additional history exists [...] Diagnosis Elevated prostate specific antigen (PSA)- Primary History of UTI Personal history of urinary (tract) infection documented in this encounter Care Teams Carbon Grinder Relationship Specialty Start Date End Date Rhianna Huitron, [address] [place] [address] PCP - General Family Medicine 07/11/19 documented as of this encounter
--- OUTSIDE RECORDS SUMMARY | 2023-09-01 04:53 | External Medical Summary | Summary of Care ---
Author Name Unknown Organization [facility] Address [address] [place] [address] Phone [phone] Care Team Providers Care Car Starter Name Role Phone Rhianna Huitron DO Primary Care Provider Reason for Visit * Reason Comments Urology Procedure Prostate biopsy Encounter Details Date Type Department Care Team Description 03/16/2023 Office Visit Urology, [facility] [address] [place] [address] Vinay Sexton MD 27 [facility] [address] [place] [address] Elevated prostate specific [...] glucose 12/16/2005 Macular degeneration 12/02/1999 DISC DIS [id number] documented as of this encounter (statuses as of 03/16/2023) Resolved Problems Problem Noted Date Resolved Date Prediabetes 11/08/2018 04/17/2022 Overview: Per Prediabetes protocol #1 Morbid (severe) obesity due to excess calories 0 08/19/2017 03/09/2019 Infective otitis externa 09/08/2012 013 Cough 07/03/2012 08/18/2012 Benign neoplasm of colon 05/10/2007 019 Overview: adenomatous repeat colonoscopy in 5 years ARTHRITIS,RHEUMATOID 07/07/2006 05/12/2016 [id number] 07/07/2006 11/17/19 10 Overview: Renamed Per Clinical Trials Billing Project. Pt is a participant in the [employer] (Consortium of Rheumatology [place]) national data collection study. For further information please call Dr Hari Clark or Julia White, RN, CCRC at [phone] [facility] RESEARCH OTHER*[id number] 07/07/2006 01/28/2010 Overview: Renamed Per Clinical Trials Billing Project. Pt is a participant in the [employer] (Consortium of Rheumatology [place] national data collection study. For further information please call Dr Hari Clark or Julia White, RN, CCRC at [phone] Hearing loss 12/02/1999 03/29/2013 documented as of this encounter (statuses as of 03/16/2023) Immunizations Name Administration Dates Next Due COVID-19 mRNA, LNP-s, No Pre serve, 2-Dose Series (Thryve) 06/14/2021,10/10/2020,09/12/2020 COVID-19, LNP-s, No Preserve , Yousuf-sucrose, [...] Trans-Rectal Ultrasound Interpretation Report: We used the [employer] ultrasound unit with end fire rectal probe [...] documented in this encounter Nursing Notes * Chris Arroyo LPN - 03/16/2023 2:03 PM EDT Pt presents in office for prostate biopsy, consent signed documented in this encounter Miscellaneous Notes * Addendum Note - Chris Arroyo LPN - 03/16/2023 4:53 PM EDTAddended by: CHRIS ARROYO on: 03/16/2023 04:53 PM Modules accepted: Orders documented in this encounter Plan of Treatment Upcoming Encounters Date Type Specialty Care Team Description 03/27/2023 Telemedicine Urology Vinay Sexton MD [address] [place] [address] [place] [address] 7, Telemed [facility] Urology Ex Rm [address] [facility] [place] [address] 05/29/2023 Office Visit Family Medicine Rhianna Huitron, DO [address] [place] [address] 09/10/2023 Office Visit Rheumatology Mendel Wilson MD [address] [place] [address] Scheduled Orders Name Type Priority Associated Diagnoses Orde r Schedule US ECHO TRANSRECTAL/PROSTATE Medical Imaging Routine Elevated prostate specific antigen (PSA) Ordered: 03/16/2023 NEEDLE/PUNCH BIOPSY OF PROSTATE Procedures Routine Elevated prostate specific antigen (PSA) Ordered: 03/16/2023 US GUIDE NEEDLE PROSTATE BX Medical Imaging Routine Elevated prostate specific antigen (PSA) Ordered: 03/16/2023 SURGICAL PATHOLOGY Pathology Routine Elevated prostate specific antigen (PSA) History of UTI Ordered: 03/16/2023 Scheduled Procedures Name Priority Associated Diagnoses Date/Ti me COLONOSCOPY FLEXIBLE PROXIMAL DIAGNOSTIC Recall Hx of colonic polyps Health Maintenance Due Date Last Done Comments *BISPHONATE OR OTHER ACCEPTABLE MEDICATION NEEDED FOR OSTEOPOROSIS (REFER TO SMARTSET #1146) 08/31/2019 DXA Scan 01/10/2021 01/10/2019, 120 12/2005, 07/07/2006 Depression Screening, Annual for Pts [...] D LEVEL ONCE IN A LIFETIME-USE SMARTSET# [id number] Completed 05/27/2021, 09/07/2019, 01/10/2019, Additional history exists [...] infection documented in this encounter Care Teams Car Starter Relationship Specialty Start Date End Date Rhianna Huitron, [address] [place] [phone] PCP - General Family Medicine 07/11/19 documented as of this encounter
--- OUTSIDE RECORDS SUMMARY | 2023-09-01 04:53 | External Medical Summary | Summary of Care ---
Author Name Unknown Organization [facility] Address [address] [place] [facility] [place] [address] Phone [phone] Care Team Providers Care Supervisor Small Appliance Assembly Name Role Phone Rhianna Huitron DO Primary Care Provider Reason for Visit * Reason Comments Urology Procedure Prostate biopsy Encounter Details Date Type Department Care Team Description 03/16/2023 Office Visit Urology, [facility] [address] [place] [address] Vinay Sexton MD 27 [facility] [address] [place] [address] Elevated prostate [...] of UTI 1000 mg IM ONCE 03/16/2023 03/16/2023 Ende d documented as of this encounter (statuses as [...] glucose 12/16/2005 Macular degeneration 12/02/1999 DISC DIS [id number] documented as of this encounter (statuses as of 03/16/2023) Resolved Problems Problem Noted Date Resolved Date Prediabetes 11/08/2018 04/17/2022 Overview: Per Prediabetes protocol #1 Morbid (severe) obesity due to excess calories 0 08/19/2017 03/09/2019 Infective otitis externa 09/08/2012 013 Cough 07/03/2012 08/18/2012 Benign neoplasm of colon 05/10/2007 019 Overview: adenomatous repeat colonoscopy in 5 years ARTHRITIS,RHEUMATOID 07/07/2006 05/12/2016 [id number] 07/07/2006 11/17/19 10 Overview: Renamed Per Clinical Trials Billing Project. Pt is a participant in the [employer] (Consortium of Rheumatology [place] national data collection study. For further information please call Dr Hari lCark or Julia White, RN, CCRC at [phone] [facility] RESEARCH OTHER*[id number] 07/07/2006 01/28/2010 Overview: Renamed Per Clinical Trials Billing Project. Pt is a participant in the [employer] (Consortium of Rheumatology [place] national data collection study. For further information please call Dr Hari Clark or Julia White, RN, CCRC at [phone] Hearing loss 12/02/1999 03/29/2013 documented as of this encounter (statuses as of 03/16/2023) Immunizations Name Administration Dates Next Due COVID-19 mRNA, LNP-s, No Pre serve, 2-Dose Series ([employer]) 06/14/2021,10/10/2020,09/12/2020 COVID-19, LNP-s, No Preserve , Yousuf-sucrose, [...] Trans-Rectal Ultrasound Interpretation Report: We used the [employer] ultrasound unit with end fire rectal probe [...] MD [address] [place] [address] [place] [address] 7, Telemed [facility] Urology Ex Rm [address] [facility] [place] [address] 05/29/2023 Office Visit Family Medicine Rhianna Huitron, DO [address] [place] [address] 09/10/2023 Office Visit Rheumatology Mendel Wilson MD [address] [place] [address] Scheduled Orders Name Type Priority Associated Diagnoses [...] D LEVEL ONCE IN A LIFETIME-USE SMARTSET# [id number] Completed 05/27/2021, 09/07/2019, 01/10/2019, Additional history exists [...] urinary (tract) infection documented in this encounter Administered Medications Inactive Administered Medications - up to 3 most recent administrations Medication Order MAR Action Action Date Dose Rate Site cefTRIAXone (Rocephin) (250 mg/mL) inj dilution 1,000 mg 1,000 mg (1 g), Intramuscular, ONCE, On Thu03/16/23 at 1500, For 1 dose Given 03/16/2023 4:53 PM EDT 1,000 mg Ventrogluteal Right documented in this encounter Care Teams Supervisor Small Appliance Assembly Relationship Specialty Start Date End Date Rhianna Huitron, DO [address] [place] [address] PCP - General Family Medicine 07/11/19 documented as of this encounter
--- OUTSIDE RECORDS SUMMARY | 2023-09-01 04:53 | External Medical Summary | Summary of Care ---
Author Name Unknown Organization [facility] Address [address] [facility] [place] [address] Phone [phone] Care Team Providers Care Vice Chancellor Name Role Phone Rhianna Huitron DO Primary Care Provider [phone] Reason for Visit * Reason Comments Urology Procedure Prostate biopsy Encounter Details Date Type Department Care Team Description 03/16/2023 Office Visit Urology, [facility] [address] [place] [address] Vinay Sexton MD 27 [facility] [address] [place] [address] Elevated [...] glucose 12/16/2005 Macular degeneration 12/02/1999 DISC DIS [id number] documented as of this encounter (statuses as of 03/16/2023) Resolved Problems Problem Noted Date Resolved Date Prediabetes 11/08/2018 04/17/2022 Overview: Per Prediabetes protocol #1 Morbid (severe) obesity due to excess calories 0 08/19/2017 03/09/2019 Infective otitis externa 09/08/2012 013 Cough 07/03/2012 08/18/2012 Benign neoplasm of colon 05/10/2007 019 Overview: adenomatous repeat colonoscopy in 5 years ARTHRITIS,RHEUMATOID 07/07/2006 05/12/2016 [id number] 07/07/2006 11/17/19 10 Overview: Renamed Per Clinical Trials Billing Project. Pt is a participant in the [employer] (Consortium of Rhe[place]ology [place] national data collection study. For further information please call Dr Hari Clark or Julia White, RN, CCRC at [phone] [facility] RESEARCH OTHER*[id number] 07/07/2006 01/28/2010 Overview: Renamed Per Clinical Trials Billing Project. Pt is a participant in the [employer] (Consortium of Rhe[place] national data collection study. For further information please call Dr Hari Clark or Julia White, RN, CCRC at [phone] Hearing loss 12/02/1999 03/29/2013 documented as of this encounter (statuses as of 03/16/2023) Immunizations Name Administration Dates Next Due COVID-19 mRNA, LNP-s, No Pre serve, 2-Dose Series ([employer]) 06/14/2021,10/10/2020,09/12/2020 COVID-19, LNP-s, No Preserve , Yousuf-sucrose, [...] Trans-Rectal Ultrasound Interpretation Report: We used the [employer] ultrasound unit with end fire rectal probe [...] MD [address] [place] [address] [place] [address] 7, Telemed [facility] Urology Ex Rm [address] [facility] [place] [address] 05/29/2023 Office Visit Family Medicine Rhianna Huitron, DO [address] [place] [address] 09/10/2023 Office Visit Rheumatology Mendel Wilson MD [address] [place] [address] Scheduled Orders Name Type Priority Associated Diagnoses [...] D LEVEL ONCE IN A LIFETIME-USE SMARTSET# [id number] Completed 05/27/2021, 09/07/2019, 01/10/2019, Additional history exists [...] Right documented in this encounter Care Teams Vice Chancellor Relationship Specialty Start Date End Date Rhianna Huitron, DO [address] [place] [address] PCP - General Family Medicine 07/11/19 documented as of this encounter
--- OUTSIDE RECORDS SUMMARY | 2023-09-01 04:53 | External Medical Summary | Summary of Care ---
Author Name Unknown Organization [facility] Address [address] [place] [address] Phone [phone] Care Team Providers Care Tool Liaison Name Role Phone Rhianna Huitron DO Primary Care Provider Reason for Visit * Reason Comments Urology Procedure Prostate biopsy Encounter Details Date Type Department Care Team Description 03/16/2023 Office Visit Urology, [facility] [address] [place] [address] Vinay Sexton MD 27 [facility] [address] [place] [address] Elevated prostate [...] as of this encounter (statuses as of 03/17/2023) Medications Medication Sig Dispensed Refills Start Date [...] as of this encounter (statuses as of 03/17/2023) Active Problems Problem Noted Date Diabetes mellitus [...] glucose 12/16/2005 Macular degeneration 12/02/1999 DISC DIS [id number] documented as of this encounter (statuses as of 03/17/2023) Resolved Problems Problem Noted Date Resolved Date Prediabetes 11/08/2018 04/17/2022 Overview: Per Prediabetes protocol #1 Morbid (severe) obesity due to excess calories 0 08/19/2017 03/09/2019 Infective otitis externa 09/08/2012 013 Cough 07/03/2012 08/18/2012 Benign neoplasm of colon 05/10/2007 019 Overview: adenomatous repeat colonoscopy in 5 years ARTHRITIS,RHEUMATOID 07/07/2006 05/12/2016 [id number] 07/07/2006 11/17/19 10 Overview: Renamed Per Clinical Trials Billing Project. Pt is a participant in the [employer] (Consortium of Rhe[place] national data collection study. For further information please call Dr Hari Clark or Julia White, RN, CCRC at [phone] [facility] RESEARCH OTHER*[id number] 07/07/2006 01/28/2010 Overview: Renamed Per Clinical Trials Billing Project. Pt is a participant in the [employer] (Consortium of [place]ology [place] national data collection study. For further information please call Dr Hari Clark or Julia White, RN, CCRC at [phone] Hearing loss 12/02/1999 03/29/2013 documented as of this encounter (statuses as of 03/17/2023) Immunizations Name Administration Dates Next Due COVID-19 mRNA, LNP-s, No Pre serve, 2-Dose Series ([employer]) 06/14/2021,10/10/2020,09/12/2020 COVID-19, LNP-s, No Preserve , Yousuf-sucrose, [...] Trans-Rectal Ultrasound Interpretation Report: We used the [employer] ultrasound unit with end fire rectal probe [...] MD [address] [place] [address] [place] [address] 7, Telemed [facility] Urology Ex Rm [address] [facility] [place] [address] 05/29/2023 Office Visit Family Medicine Rhianna Huitron, DO [address] [place] [address] 09/10/2023 Office Visit Rheumatology Mendel Wilson MD [address] [place] [address] Pending Results Name Type Priority Associated Diagnoses Date /Time SURGICAL PATHOLOGY Pathology Routine Elevated prostate specific antigen (PSA) History of UTI 03/16/2023 4:53 PM EDT Scheduled Orders Name Type Priority [...] D LEVEL ONCE IN A LIFETIME-USE SMARTSET# [id number] Completed 05/27/2021, 09/07/2019, 01/10/2019, Additional history exists [...] Right documented in this encounter Care Teams Tool Liaison Relationship Specialty Start Date End Date Rhianna Huitron, [address] [place], [place] [phone] PCP - General Family Medicine 07/11/19 documented as of this encounter
[2023-09-01] MEDS ORDERED: NITROGLYCERIN SL 0.4 MG/TAB TAB ONE ×2 (05:00→05:12)
[2023-09-01] MEDS ORDERED: NITROGLYCERIN 0.3 MG/1 TAB 100 TAB BTL SL ONE (05:02)
[2023-09-01] MEDS ORDERED: AMIODARONE 150MG / 100ML D5W IV ONE (05:05)
[2023-09-01] MEDS ORDERED: 0.2 MICRON FILTER SET 1 EACH IV ONE (05:09)
[2023-09-01] MEDS ORDERED: AMIODARONE / D5W 150 MG/100 ML BAG IV STA (05:09)
[2023-09-01] MEDS ORDERED: ASPIRIN CHEW 324 MG ONE (05:12)
[2023-09-01] MEDS ORDERED: ASPIRIN CHEW 324 MG PO STA (05:15)
[2023-09-01] MEDS ORDERED: NITROGLYCERIN SL 0.4 MG/TAB TAB SL STA (05:15)
[2023-09-01] MEDS ORDERED: LIDOCAINE 2% 20 MG/ML 5 ML SYR IV ONE ×2 (05:18→20:16)
[2023-09-01 05:35] LABS: iSTAT Creatinine 1.3 mg/dl (0.6-1.3); iSTAT Hemoglobin 10.9 g/dl (14.0-18.0); iSTAT Ionized Calcium 1.16 mmol/l (1.12-1.32); iSTAT Potassium 3.8 mmol/L (3.3-5.0)
[2023-09-01 05:39] LABS: Basophils # (auto) 0.05 K/uL (0.00-0.20); Basophils % (auto) 0.4 %; Eosinophils # (auto) 0.15 K/uL (0.00-0.50); Eosinophils % (auto) 1.2 %; Hematocrit (blood only) 34.5 % (42.0-52.0); Hemoglobin 11.2 g/dl (14.0-18.0); Immature Granulocytes # (auto) 0.05 K/uL (0.01-0.20); Immature Granulocytes % (auto) 0.4 %; Lymphocytes % (auto) 5.6 %; Mean Corpuscular Hemoglobin 29.2 pg (25.0-34.0); Mean Corpuscular Hgb Conc 32.5 g/dL (32.0-36.0); Mean Corpuscular Volume 90.1 fL (80.0-100.0); Mean Platelet Volume 10.4 fL (9.4-12.4); Monocytes # (auto) 0.74 K/uL (0.11-0.59); Monocytes % (auto) 5.9 %; Neutrophils # (auto) 10.79 K/uL (1.40-6.50); Neutrophils % (auto) 86.5 %; Platelet Count 250 K/uL (130-400); RDW Coefficient of Variation 15.9 % (11.5-14.5); RDW Standard Deviation 51.8 fL (36.4-46.3); Red Blood Count 3.83 M/uL (4.70-6.10); White Blood Count 12.48 K/ul (4.8-10.8)
[2023-09-01] MEDS ORDERED: OPTIRAY 320 125ml IV ONE (05:39)
[2023-09-01 05:45] LABS: Albumin Globulin Ratio 1.1 (0.9-2); Albumin Level 4.1 gm/dl (3.4-5.0); BUN Creatinine Ratio 20.7 (10-20); Bilirubin,Total 0.6 mg/dl (0.2-1.0); Calcium 9.8 mg/dl (8.6-10.3); Creatinine Clr Calc Pharmacy 75.7 ml/min; Est GFR (African American) 66.5 ml/min; Est GFR (Non-African American) 57.4 ml/min; Globulin 3.6 gm/dl (2.5-4.0); Magnesium 1.7 mg/dl (1.7-2.4); Potassium 3.4 mmol/L (3.5-5.1); Total Protein 7.7 gm/dl (6.0-8.3)
[2023-09-01 05:51] LABS: Troponin I High Sensitivity 9.1 pg/ml (0-20)
[2023-09-01] MEDS ORDERED: LIDOCAINE 2% 20 MG/ML 5 ML SYR IV STA (05:51)
[2023-09-01] MEDS ORDERED: fentaNYL citrate PF 100 MCG/2 ML VIAL IV STA (05:52)
[2023-09-01] MEDS ORDERED: ONDANSETRON INJ 2 MG/ML 2 ML VIAL IV STA (05:52)
[2023-09-01] MEDS ORDERED: LIDOCAINE IV BOLUS & DRIP IV STA (05:55)
[2023-09-01 06:00] LABS: Partial Thromboplastin Time 28 Seconds (21-31); Prothrombin Time 11.3 Seconds (9.0-12.0)
[2023-09-01] MEDS ORDERED: LIDOCAINE/D5W DRIP 4MG/ML 2,000 MG/500 ML BAG IV SCH (06:00)
--- NOTE | 2023-09-01 06:32 | Emergency Department Note ---
Impression & Plan Ventricular tachycardia, Substernal chest pain Admit to the ICU with cardiology consulted ED Provider Note NAME: JANES SAMUEL AGE: 78 SEX: Male INFORMANT: Patient and his son ED PROVIDER(S): Donna Jacques DO CHIEF COMPLAINT: Substernal chest discomfort PLAN: Disposition: Admit to the ICU MEDICAL DECISION MAKING: This is a 78-year-old male patient who presents to the emergency department with substernal chest pain since 1 AM this morning. Patient awoke from sleep with substernal chest discomfort. He tried to have a couple coffee but this seemed to make the symptoms worse. He alerted his son who brought him to the emergency department for evaluation. On presentation to the emergency department, the patient was having unifocal PVCs, triplets and then runs of V. tach. Initially, he was bolused with IV amiodarone which seemed to have no impact on the ventricular dysrhythmia. He was then bolused with IV lidocaine which seemed to improve his symptoms so therefore he was placed on a lidocaine drip which continued to improve the ventricular arrhythmia. The patient remained hemodynamically stable. Laboratory studies revealed no significant leukocytosis. H&H were stable. Coagulation studies were normal. Glucose was slightly elevated at 148. Renal function were normal. Patient has no significant cardiac history. I discussed the case with critical care medicine as well as cardiology and he will be admitted to the ICU. Care/management discussed with: correctional case manager, critical care medicine, cardiology, [facility] T[facility] Nursing notes: reviewed and agree with them. Vital Signs: reviewed and remarkable for tachycardia and tachypnea Additional History obtained from: Patient's son is at the bedside Chronic Medical/Social Conditions affecting care: Rheumatoid arthritis Prior/ Outside/ External records reviewed: I reviewed primary care notes from June 2023 during office visit with his PCP in the [facility] system Differential Diagnosis: Cardiac dysrhythmia, STEMI, aortic dissection, GERD Diagnostics, independently interpreted by me: ECG: Sinus tachycardia at a rate of 128 with a triplet and other unifocal PVCs. The patient has ST segment depression in the inferior and lateral leads concerning for ischemia. Repeat ECG: Sinus tachycardia at 113 with unifocal PVCs and ST segment depression in the inferior and lateral leads Cardiac Monitoring: Sinus tachycardia at 112 with runs of V. tach and focal PVCs Imaging studies: Portable chest x-ray: Cardiomegaly with a widened mediastinum as per my independent interpretation HPI: 78 year old Male arrives for evaluation of substernal chest pain. Patient awoke from sleep at 1 AM with substernal chest discomfort. He drank a couple coffee believing this might help the symptoms but seem to only make it worse. Patient has no previous cardiac history. He is never had pain like this before. PAST MEDICAL HISTORY: See Below, PAST SURGICAL HISTORY: See Below, SOCIAL HISTORY: See Below, HOME MEDICATIONS: See list ALLERGIES: See list VITALS: See Below PHYSICAL EXAMINATION: HEENT: Head - normocephalic and atraumatic Pupils are equal, round, and reactive to light. Extraocular eye muscles are intact, and sclera are anicteric. Nose - moist nasal mucosa without discharge. Mouth - moist buccal mucosa. Oropharynx is nonerythematous and there is no tonsillar exudate or edema noted. Neck: Supple; no JVD, nuchal rigidity, cervical lymphadenopathy, or auscultated bruits. Heart: Tachycardic rate and irregular rhythm. There is a normal S1 and S2 with no murmurs, clicks, or gallops appreciated. Lungs: Clear to auscultation bilaterally with no wheezes, rales, or rhonchi. Abdomen: Soft, completely nontender, nondistended, with good bowel sounds. There are no palpable pulsatile masses or hepatosplenomegaly. There is no guarding, rigidity, or rebound noted. Extremities: No evidence of cyanosis, clubbing, or edema. There are easily palpable peripheral pulses. Skin: warm and dry with good turgor and no rashes. Emergency department treatment: security associate, supplemental oxygen, IV amiodarone bolus over 10 minutes, IV lidocaine bolus, IV lidocaine drip Emergency department course: The patient was evaluated in room B4. A complete history and physical was performed. An IV lock was initiated and labs were drawn as above the patient had a twelve-lead EKG. An order was placed for continuous cardiac monitoring. Patient was in a sinus tachycardia at a rate of 112. Patient had the defibrillator pads placed as he was noted to be in ventricular tachycardia at times. Patient appeared to be short of breath. He was placed on supplemental oxygen. He had a second IV line initiated. The patient was bolused with IV amiodarone. This did not seem to improve the ventricular arrhythmia. He was then bolused with IV lidocaine. A portable chest x-ray was of obtained and revealed a widened mediastinum. Plans were made to take the patient to CT scan to rule out aortic dissection. Patient was placed on a lidocaine drip. He went for CT scan of the chest. He was then moved to room A 1. The patient and the son abreast of the situation. His episodes of V. tach and couplets and triplets were decreasing in frequency. He remained hemodynamically stable. I discussed the case with the brick and block mason. I then discussed the case with the patient safety coordinator. I also discussed the case [facility] He will be admitted to the ICU. CRITICAL CARE: I have personally spent greater than 120 minutes of critical care time in the direct management of this patient. This includes bedside care, interpretation of diagnostic studies, and testing, discussion with consultants, patient, and family members, and other required patient management activities. This 120 minutes is in excess of all separately billable procedures. Past Med/Surg History Medical History (Updated 09/04/23 @ 18:26 by Donna Jacques DO) Coronary artery disease Degeneration of lumbosacral intervertebral disc Impaired fasting glucose Morbid obesity Macular degeneration Fuchs' corneal dystrophy Frequent UTI Hypertension Rheumatoid arthritis Surgical History H/O colonoscopy History of prostate biopsy Family History Father Heart disease Stomach ulcer Mother Rheumatoid arthritis Social History Smoking Status: Former smoker Age Started Using Tobacco: 19; packs per day: 1; Second Hand Exposure: Yes; Do You Dip or Chew Tobacco: No; Hx Alcohol Use: No Hx Substance Use: No Preferred Language: Jordanian Communication Ability: Effective Visual Impairment: No Limitations Hearing Ability: Normal Survey Director Required: No Beliefs That Will Affect Care: None marital status: / Current Living Situation: Family current occupational status: retired current occupation: PA [employer] Feels Safe at Home: Yes Diet: regular during the past year weight has: remained stable Assistive Devices: Cane Allergies Allergies Allergy/AdvReac Type Severity Reaction Status Date / Time Sulfa (Sulfonamide Allergy Unknown UNKNOWN Verified 09/01/23 05:04 Antibiotics) [id number] Reductase AdvReac Intermediate CONSTIPATIO Verified 09/01/23 05:04 Inhibitor N [[id number]-[id number] Reductase Inhibitor] Home Meds Home Medications Medication Instructions Recorded Confirmed folic acid 1 mg tablet 1 mg PO DAILY 04/04/20 09/01/23 methotrexate sodium 2.5 mg tablet 12.5 mg PO WK 04/15/23 09/01/23 tamsulosin 0.4 mg capsule 0.4 mg PO DAILY 04/15/23 09/01/23 prednisone 5 mg tablet 5 mg PO DAILY 05/25/23 09/01/23 Previous Rx's Medication Instructions Recorded acetaminophen 325 mg tablet 650 mg (2 x 325 mg) PO Q4H PRN 09/03/23 fever or pain #60 tabs aspirin 81 mg tablet,delayed 81 mg PO QAM #30 tabs 09/03/23 release clopidogrel 75 mg tablet 75 mg PO QAM #30 tabs 09/03/23 magnesium oxide 400 mg (241.3 mg 400 mg PO BID #60 tabs 09/03/23 magnesium) tablet metoprolol succinate 50 mg 50 mg PO BID #60 tabs 09/03/23 tablet,extended release 24 hr rosuvastatin 5 mg tablet 5 mg PO QAM #30 tabs 09/03/23 sacubitril 24 mg-valsartan 26 mg 1 tab PO BID #60 tabs 09/03/23 tablet (Entresto) Results & Data (ED) Vital Signs Vital Signs - 24 hr 09/01/23 04:39 09/01/23 04:47 09/01/23 04:47 Temperature 36.5 C Temperature Source Temporal Artery Scan Pulse Rate 119 H 117 H 123 H Pulse Rate [Finger] Pulse Rhythm [Finger] Pulse Strength [Finger] Respiratory Rate 24 Respiratory Effort / Characteristics Non-Labored Spontaneous Respiratory Depth Normal Respiratory Pattern Blood Pressure 156/89 H Blood Pressure [Right Arm] Blood Pressure Mean 111 Blood Pressure Mean [Right Arm] Pulse Oximetry 99 Oxygen Delivery Method Sepsis Recent Fever Within 48 Hours No Sepsis New/Unexplained Change in Mental Status N/A Sepsis Action Taken by Nursing No Action Required 09/01/23 04:56 09/01/23 04:56 09/01/23 05:09 Temperature Temperature Source Pulse Rate Pulse Rate [Finger] 112 H Pulse Rhythm [Finger] Regular Pulse Strength [Finger] Normal Respiratory Rate 30 H Respiratory Effort / Characteristics Non-Labored Spontaneous Respiratory Depth Normal Respiratory Pattern Regular Blood Pressure Blood Pressure [Right Arm] 127/92 Blood Pressure Mean Blood Pressure Mean [Right Arm] 103 Pulse Oximetry 97 Oxygen Delivery Method Room Air Room Air Room Air Sepsis Recent Fever Within 48 Hours Sepsis New/Unexplained Change in Mental Status Sepsis Action Taken by Nursing 09/01/23 05:09 Temperature Temperature Source Pulse Rate Pulse Rate [Finger] Pulse Rhythm [Finger] Pulse Strength [Finger] Respiratory Rate Respiratory Effort / Characteristics Respiratory Depth Respiratory Pattern Blood Pressure Blood Pressure [Right Arm] Blood Pressure Mean Blood Pressure Mean [Right Arm] Pulse Oximetry Oxygen Delivery Method Room Air Sepsis Recent Fever Within 48 Hours Sepsis New/Unexplained Change in Mental Status Sepsis Action Taken by Nursing Laboratory Data 09/03/23 05:29 09/03/23 05:29 Lab Results 09/01/23 09/01/23 Range/Units 04:56 05:23 WBC 12.48 H (4.8-10.8) K/ul RBC 3.83 L (4.70-6.10) M/uL Hgb 11.2 L (14.0-18.0) g/dl POC Hgb 10.9 L (14.0-18.0) g/dl Hct 34.5 L (42.0-52.0) % POC Hct 32 L (42-52) % MCV 90.1 (80.0-100.0) fL MCH 29.2 (25.0-34.0) pg MCHC 32.5 (32.0-36.0) g/dL RDW Std Deviation 51.8 H (36.4-46.3) fL RDW Coeff of Jenny 15.9 H (11.5-14.5) % Plt Count 250 (130-400) K/uL MPV 10.4 (9.4-12.4) fL Immature Gran % (Auto) 0.4 % Neut % (Auto) 86.5 % Lymph % (Auto) 5.6 % [place] % (Auto) 5.9 % Eos % (Auto) 1.2 % Baso % (Auto) 0.4 % Neut # (Auto) 10.79 H (1.40-6.50) K/uL Lymph # (Auto) 0.70 L (1.20-3.40) K/uL [place] # (Auto) 0.74 H (0.11-0.59) K/uL Eos # (Auto) 0.15 (0.00-0.50) K/uL Baso # (Auto) 0.05 (0.00-0.20) K/uL Immature Gran # (Auto) 0.05 (0.01-0.20) K/uL PT 11.3 (9.0-12.0) Seconds INR 1.0 (0.9-1.1) APTT 28 (21-31) Seconds PTT Ratio 1.0 POC Sodium 135 (135-144) mmol/L Sodium 134 L (136-145) mmol/L POC Potassium 3.8 (3.3-5.0) mmol/L Potassium 3.4 L (3.5-5.1) mmol/L POC Chloride 100 L (101-112) mmol/L Chloride 99 (98-107) mmol/L Carbon Dioxide 27 (21-32) mmol/L POC Total CO2 27 (24-31) mmol/L Anion Gap 8 (3-11) POC Anion Gap 13.0 L (16-25) mmol/L POC BUN 28 H (7-18) mg/dl BUN 25 H (6-23) mg/dl Creatinine 1.21 (0.6-1.4) mg/dl POC Creatinine 1.3 (0.6-1.3) mg/dl Est Cr Clr Drug Dosing 75.7 ml/min Est GFR ( Amer) 66.5 ml/min Est GFR (Non-Af Amer) 57.4 ml/min BUN/Creatinine Ratio 20.7 H (10-20) Glucose 148 H (70-99(Fasting)) mg/dl POC Glucose (other) 169 H (70-99) mg/dl Calcium 9.8 (8.6-10.3) mg/dl POC Ioniz Calcium Eusebio 1.16 (1.12-1.32) mmol/l Magnesium 1.7 (1.7-2.4) mg/dl Total Bilirubin 0.6 (0.2-1.0) mg/dl AST 16 (13-39) U/L ALT 15 (7-52) U/L Alkaline Phosphatase 94 (34-104) U/L Troponin I High Sens 9.1 (0-20) pg/ml B-Natriuretic Peptide 73 (0-100) pg/ml Total Protein 7.7 (6.0-8.3) gm/dl Albumin 4.1 (3.4-5.0) gm/dl Globulin 3.6 (2.5-4.0) gm/dl Albumin/Globulin Ratio 1.1 (0.9-2) Administered Medications Discontinued Medications Acetaminophen (Acetaminophen 325 Mg Tab) 650 mg PO Q4H PRN PRN Reason: Moderate Pain (Scale 4, 5, 6) Stop: 10/01/23 09:56 Last Admin: 09/02/23 19:32 Dose: 650 mg Documented By: Admin: 09/02/23 10:02 Dose: 650 mg Documented By: Admin: 09/02/23 05:28 Dose: 650 mg Documented By: RENETTA Amiodarone HCl/Dextrose (Amiodarone 150mg / 100ml D5w) Confirm Administered Dose 150 mg IV .STK-MED ONE Stop: 09/01/23 05:06 Last Admin: 09/01/23 05:10 Dose: Not Given Documented By: FELICITA Aspirin (Aspirin Chew 324 Mg) Confirm Administered Dose 324 mg .ROUTE .STK-MED ONE Stop: 09/01/23 05:13 Last Admin: 09/01/23 05:16 Dose: Not Given Documented By: FELICITA Aspirin (Aspirin Chew 324 Mg) 324 mg PO NOW [facility] Stop: 09/01/23 05:16 Last Admin: 09/01/23 05:18 Dose: 324 mg Documented By: FELICITA Aspirin (Aspirin 81 Mg Ectab) 81 mg PO [facility] Stop: 10/02/23 08:59 Last Admin: 09/03/23 08:27 Dose: 81 mg Documented By: Admin: 09/02/23 08:44 Dose: 81 mg Documented By: LUZ Clopidogrel Bisulfate (Clopidogrel Bisulfate 300 Mg Tab) Confirm Administered Dose 600 mg .ROUTE .STK-MED ONE Stop: 09/01/23 11:01 Last Admin: 09/01/23 11:14 Dose: 600 mg Documented By: JOSELO Clopidogrel Bisulfate (Clopidogrel Bisulfate 75 Mg Tab) 75 mg PO [facility] Stop: 10/02/23 08:59 Last Admin: 09/03/23 08:27 Dose: 75 mg Documented By: Admin: 09/02/23 08:44 Dose: 75 mg Documented By: LUZ Enoxaparin Sodium (Enoxaparin Inj 40 Mg/0.4 Ml Syr) 40 mg SQ Q24H RUBENS Stop: 10/01/23 08:29 Last Admin: 09/03/23 08:27 Dose: 40 mg Documented By: Admin: 09/02/23 08:44 Dose: 40 mg Documented By: Admin: 09/01/23 09:09 Dose: 40 mg Documented By: MARCIO Fentanyl Citrate (Fentanyl Citrate Pf 100 Mcg/2 Ml Vial) 50 mcg IV NOW STA Stop: 09/01/23 05:53 Last Admin: 09/01/23 06:03 Dose: 50 mcg Documented By: JOSELO(2) Fentanyl Citrate (Fentanyl Citrate Pf 100 Mcg/2 Ml Vial) Confirm Administered Dose 100 mcg .ROUTE .STK-MED ONE Stop: 09/01/23 09:24 Last Admin: 09/01/23 10:47 Dose: 100 mcg Documented By: JOSELO Fentanyl Citrate (Fentanyl Citrate Pf 100 Mcg/2 Ml Vial) Confirm Administered Dose 100 mcg .ROUTE .STK-MED ONE Stop: 09/01/23 10:52 Last Admin: 09/01/23 11:04 Dose: Not Given Documented By: JOSELO Heparin Sodium (Porcine) (Heparin (Porcine) 1000 Unit/Ml 10 Ml (Building Drafter Use Only)) Confirm Administered Dose 10,000 units .ROUTE .STK-MED ONE Stop: 09/01/23 09:23 Last Admin: 09/01/23 10:49 Dose: 10,000 units Documented By: JOSELO Heparin Sodium (Porcine) (Heparin (Porcine) 1000 Unit/Ml 10 Ml (Building Drafter Use Only)) Confirm Administered Dose 10,000 units .ROUTE .STK-MED ONE Stop: 09/01/23 10:49 Last Admin: 09/01/23 11:04 Dose: 2,000 units Documented By: JOSELO Heparin Sodium/Sodium Chloride (Heparin In Nss Infusion 1000 Unit/500 Ml (2 U/Ml) Bag) Confirm Administered Dose 3,000 units IV .STK-MED ONE Stop: 09/01/23 09:24 Last Admin: 09/01/23 10:34 Dose: 3,000 units Documented By: MOR Amiodarone HCl/Dextrose (Nexterone / D5w) 150 mg in 100 mls @ 600 mls/hr IV NOW STA Stop: 09/01/23 05:18 Last Infusion: 09/01/23 05:18 Dose: Infused Documented By: JOSELO(2) Co-signed By: FELICITA Admin: 09/01/23 05:08 Dose: 600 mls/hr Documented By: FELICITA Co-signed By: MARCUS Lidocaine HCl/Dextrose (Xylocaine/D5w Drip 4mg/Ml) 2,000 mg in 500 mls @ 30 mls/hr IV .[id number] RUBENS; Protocol Stop: 10/01/23 05:59 Last Infusion: 09/01/23 22:58 Dose: Infused Documented By: Infusion: 09/01/23 06:23 Dose: 2 mg/min, 30 mls/hr Documented By: JOSELO(2) Admin: 09/01/23 06:15 Dose: 1 mg/min, 15 mls/hr Documented By: JOSELO(2) Co-signed By: Magnesium Sulfate/Dextrose (Magnesium Sulfate / D5w) 1 gm in 100 mls @ 50 mls/hr IV Q2H [facility] Stop: 09/02/23 12:29 Last Infusion: 09/02/23 17:05 Dose: Infused Documented By: Admin: 09/02/23 10:34 Dose: 50 mls/hr Documented By: Infusion: 09/02/23 10:21 Dose: Infused Documented By: Admin: 09/02/23 08:21 Dose: 50 mls/hr Documented By: Infusion: 09/02/23 08:21 Dose: Infused Documented By: Admin: 09/02/23 06:42 Dose: 50 mls/hr Documented By: JOHN Ioversol (Optiray 320 125ml) 125 ml IV ONCE ONE Stop: 09/01/23 05:40 Last Admin: 09/01/23 05:40 Dose: 116 ml Documented By: JAVIER Lidocaine HCl (Lidocaine 2% 20 Mg/Ml 5 Ml Syr) Confirm Administered Dose 100 mg IV .STK-MED ONE Stop: 09/01/23 05:19 Last Admin: 09/01/23 05:52 Dose: Not Given Documented By: FELICITA Lidocaine HCl (Lidocaine 2% 20 Mg/Ml 5 Ml Syr) 100 mg IV NOW STA Stop: 09/01/23 05:52 Last Admin: 09/01/23 05:20 Dose: 100 mg Documented By: FELICITA Lidocaine HCl/Dextrose (Lidocaine Iv Bolus & Drip) 1 each IV NOW STA Stop: 09/01/23 05:56 Last Admin: 09/01/23 06:21 Dose: Not Given Documented By: JOSELO(2) Losartan Potassium (Losartan Potassium 25 Mg Tab) 25 mg PO QAM RUBENS Stop: 10/01/23 13:44 Last Admin: 09/02/23 09:14 Dose: 25 mg Documented By: Admin: 09/01/23 14:47 Dose: 25 mg Documented By: DAIJA Magnesium Oxide (Magnesium Oxide 400 Mg Tab) 400 mg PO BID RUBENS Stop: 10/01/23 20:59 Last Admin: 09/03/23 08:27 Dose: 400 mg Documented By: Admin: 09/02/23 19:42 Dose: 400 mg Documented By: TLMarcelino Admin: 09/02/23 09:14 Dose: 400 mg Documented By: Admin: 09/01/23 20:53 Dose: 400 mg Documented By: RENETTA Metoprolol Succinate (Metoprolol Succ 25mg Ext Rel Tab) 25 mg PO BID RUBENS Stop: 10/02/23 20:59 Last Admin: 09/03/23 08:27 Dose: 25 mg Documented By: Admin: 09/02/23 19:42 Dose: 25 mg Documented By: LINDA Metoprolol Tartrate (Metoprolol Tartrate 1 Mg/Ml Vial) 5 mg IV NOW STA Stop: 09/01/23 09:03 Last Admin: 09/01/23 09:13 Dose: 5 mg Documented By: MARCIO Metoprolol Tartrate (Metoprolol Tartrate 25 Mg Tab) 25 mg PO ONE ONE Stop: 09/01/23 09:04 Last Admin: 09/01/23 09:12 Dose: 25 mg Documented By: NREber Metoprolol Tartrate (Metoprolol Tartrate 1 Mg/Ml Vial) 5 mg IV NOW STA Stop: 09/01/23 13:37 Last Admin: 09/01/23 14:42 Dose: 5 mg Documented By: DAIJA Metoprolol Tartrate (Metoprolol Tartrate 50 Mg Tab) 50 mg PO QID RUBENS Stop: 10/01/23 16:59 Last Admin: 09/02/23 08:45 Dose: 50 mg Documented By: Admin: 09/01/23 22:58 Dose: Not Given Documented By: Admin: 09/01/23 17:27 Dose: 50 mg Documented By: DAIJA Midazolam HCl (Midazolam Hcl 1 Mg/Ml 2ml Vial) Confirm Administered Dose 2 mg .ROUTE .STK-MED ONE Stop: 09/01/23 09:23 Last Admin: 09/01/23 10:34 Dose: 2 mg Documented By: JOSELO Midazolam HCl (Midazolam Hcl 1 Mg/Ml 2ml Vial) Confirm Administered Dose 2 mg .ROUTE .STK-MED ONE Stop: 09/01/23 10:41 Last Admin: 09/01/23 10:47 Dose: 2 mg Documented By: JOSELO Miscellaneous (Icu Protocol For Hyperglycemia) 1 each N/A ACHS RUBENS Stop: 09/03/23 11:29 Last Admin: 09/02/23 09:14 Dose: Not Given Documented By: Admin: 09/01/23 22:56 Dose: Not Given Documented By: Admin: 09/01/23 22:56 Dose: Not Given Documented By: MMShanika Admin: 09/01/23 17:20 Dose: Not Given Documented By: DAIJA Nicardipine HCl (Nicardipine Hcl Inj 2.5 Mg/Ml 10 Ml Amp) Confirm Administered Dose 25 mg .ROUTE .STK-MED ONE Stop: 09/01/23 09:23 Last Admin: 09/01/23 10:34 Dose: 25 mg Documented By: MOR Nitroglycerin (Nitroglycerin Sl 0.4 Mg/Tab Tab) Confirm Administered Dose 0.4 mg .ROUTE .STK-MED ONE Stop: 09/01/23 05:01 Last Admin: 09/01/23 05:03 Dose: Not Given Documented By: FELICITA Nitroglycerin (Nitroglycerin 0.3 Mg/1 Tab 100 Tab Btl) 0.4 mg SL Q5M ONE Stop: 09/01/23 05:03 Last Admin: 09/01/23 05:03 Dose: 0.4 mg Documented By: FELICITA Nitroglycerin (Nitroglycerin Sl 0.4 Mg/Tab Tab) Confirm Administered Dose 2 mg .ROUTE .STK-MED ONE Stop: 09/01/23 05:13 Last Admin: 09/01/23 05:16 Dose: Not Given Documented By: FELICITA Nitroglycerin (Nitroglycerin Sl 0.4 Mg/Tab Tab) 0.4 mg SL NOW STA Stop: 09/01/23 05:16 Last Admin: 09/01/23 05:12 Dose: 0.4 mg Documented By: FELICITA Nitroglycerin (Nitroglycerin 2% Ointment 30gm Tube) 1 inch EXT Q6 RUBENS Stop: 10/01/23 13:44 Last Admin: 09/02/23 05:25 Dose: 1 inch Documented By: Admin: 09/02/23 00:17 Dose: 1 inch Documented By: Admin: 09/01/23 17:30 Dose: 1 inch Documented By: Admin: 09/01/23 14:42 Dose: 1 inch Documented By: DAIJA Nitroglycerin/Dextrose (Nitroglycerin/D5w 100mcg/Ml 20ml Syr) Confirm Administered Dose 2,000 mcg .ROUTE .STK-MED ONE Stop: 09/01/23 09:24 Last Admin: 09/01/23 10:34 Dose: 2,000 mcg Documented By: MOR Ondansetron HCl (Ondansetron Inj 2 Mg/Ml 2 Ml Vial) 4 mg IV NOW STA Stop: 09/01/23 05:53 Last Admin: 09/01/23 06:00 Dose: 4 mg Documented By: JOSELO(2) Potassium Chloride (Potassium Chloride Crtab 20 Meq Tabcr) 40 meq PO NOW STA Stop: 09/01/23 13:46 Last Admin: 09/01/23 14:45 Dose: 40 meq Documented By: DAIJA Potassium Chloride (Potassium Chloride Crtab 20 Meq Tabcr) 40 meq PO ONE ONE Stop: 09/01/23 18:01 Last Admin: 09/01/23 17:30 Dose: 40 meq Documented By: DAIJA Prednisone (Prednisone 5 Mg Tab) 5 mg PO DAILY [facility] Stop: 10/01/23 10:14 Last Admin: 09/03/23 08:27 Dose: 5 mg Documented By: Admin: 09/02/23 08:44 Dose: 5 mg Documented By: Admin: 09/01/23 14:43 Dose: 5 mg Documented By: DAIJA Rosuvastatin Calcium (Rosuvastatin Calcium 5 Mg Tab) 5 mg PO QAM RUBENS Stop: 10/02/23 10:29 Last Admin: 09/03/23 08:27 Dose: 5 mg Documented By: Admin: 09/02/23 12:02 Dose: 5 mg Documented By: LUZ Sacubitril/Valsartan (Valsartan/Sacubitril 26/24mg Tab) 1 tab PO BID [facility] Stop: 10/03/23 10:44 Last Admin: 09/03/23 11:48 Dose: 1 tab Documented By: PK Tamsulosin HCl (Tamsulosin Hcl 0.4 Mg Cap) 0.4 mg PO DAILY [facility] Stop: 10/01/23 10:14 Last Admin: 09/03/23 08:27 Dose: 0.4 mg Documented By: Admin: 09/02/23 08:44 Dose: 0.4 mg Documented By: Admin: 09/01/23 14:43 Dose: 0.4 mg Documented By: LAF Discharge Plan Visit Data Chief Complaint: Chest Pain Stated Complaint: CHEST PAIN, SOB, SHOULDER/NECK PAIN ED Provider: Donna Jacques Discharge Problem: Ventricular tachycardia, Substernal chest pain Patient Disposition: Admitted As Inpatient Discharge Instructions Interventions: ED Discharge Assessment Last Done: 09/01/23 09:23
--- NOTE | 2023-09-01 06:48 | CT Scan Report ---
CHEST CTA for AORTIC DISSECTION CT DOSE: 2344.46 mGy.cm HISTORY: Mid chest pain. eval for dissection TECHNIQUE: Multiaxial CT images of the chest were performed both before and after the intravenous adm inistration of contrast to evaluate the aorta. 3D/MIP images were also obtained. Sagittal and coronal reformations were also reviewed. A dose lowering technique was utilized adhering to the principles of ALARA. COMPARISON STUDY: Abdomen and pelvis CT 04/03/2020. Outside hospital PET CT 03/24/2023. FINDINGS: Suboptimal evaluation due to the mild motion artifact. Noncontrast imaging through the thor acic aorta shows no evidence for an intramural hematoma. Mild to moderate coronary artery calcificati ons are noted. The thoracic aorta is normal and course and caliber with no evidence for a dissection. Limited views the upper abdomen demonstrate a normal liver, spleen, adrenal glands. The thyroid glan d enhances normally. Normal esophagus. No mediastinal or hilar lymphadenopathy. The heart is mildly e nlarged. No pleural or pericardial effusions. There are calcified right hilar lymph nodes. The main p ulmonary arteries are patent. No acute fractures within the chest. No pneumothorax. Suboptimal evalua tion of the lungs due to the respiratory motion artifact. The central airways appear patent. Mosaic a ttenuation within the lungs suggestive of mild air trapping. There are mild dependent changes seen wi thin the lung bases. Otherwise, no focal lung consolidations to suggest a pneumonia. No evidence for pulmonary edema. IMPRESSION: 1. Suboptimal evaluation of the chest due to the respiratory motion artifact. 2. No evidence for an aortic dissection. 3. Mosaic attenuation within the lungs favors air trapping. Otherwise, no focal lung consolidations t o suggest a pneumonia. 4. Mild cardiomegaly. ACT 112: Negative or not required by law. Electronically signed by: Al Ames M.D. 09/01/2023 6:46 AM
[2023-09-01 06:56] LABS: Influenza A virus by PCR Negative (Neg); Influenza B virus by PCR Negative (Neg); RSV by PCR Negative (Neg); SARS CoV2 RNA(COVID-19) Ceph NEGATIVE (Negative)
--- NOTE | 2023-09-01 07:08 | XRay Report ---
XR chest 1V not portable HISTORY: Chest pain, nonspecific COMPARISON: None. FINDINGS: No pneumothorax. No pleural effusions. The heart is enlarged. There is mild central pulmona ry vascular congestion without overt edema. No focal lung consolidations to suggest a pneumonia. No a cute fractures. IMPRESSION: Cardiomegaly and mild congestive change. ACT 112: Negative or not required by law. Electronically signed by: Al Ames M.D. 09/01/2023 7:07 AM
--- NOTE | 2023-09-01 08:29 | History & Physical Report ---
Date of Service September 01, 2023 Assessment & Plan (1) Ventricular tachycardia: (2) Hypertension: Plan: - Admit to ICU - V tach on monitor - pt has been started on amiodarone and lidocaine drip, remains in ventricular tach with heart rate in the 118s while sedated at rest -Initial troponin is 9.8, trend every 6 -Check complete echo - EKG reviewed as above -Cardiology consulted, plans to take to cardiac [facility] [employer] this morning -Home medications include losartan, baby aspirin, he is not on any beta-blockade or other diuretic agents-noted on exam that pt with pitting edema 1+ in bilateral lower extremities-report by son notes that he was previously on diure tic therapy but was taken off of it - PT/OT consulted -Check A1c and lipids with a.m. labs -History of formers tobacco use, quit in 1997, [id number] history, no alcohol use, no illicit drug use, + caffeine use as per HPI (3) Urinary retention: (4) Prostate cancer: Plan: -History of such, diagnosed March 2023, status post XRT and currently on Zytiga therapy with immunotherapy - - HOLD zytiga at this time with adverse effects noted on looking up the medications including fluid retention, hepatotoxicity, hypokalemia, arrhythmia, cardiac failure, adrenal insufficiency- likely can NOT initiate this on discharge. ---- will need heme/onc follow up to determine other form of immunotherapy -Requires 4 times daily straight cath, is able to urinate small amount of urine when very full -Check UA (5) Rheumatoid arthritis: Plan: -Patient is on chronic prednisone 5 mg daily, methotrexate 12.5 mg weekly on Fridays, will continue -Chronic, stable (6) Morbid obesity: Plan: -BMI of 39.1, will need to encourage diet and exercise throughout hospital stay DVT PPx:- teds, scds Lines: 2 PIV CODE: Full code FEN/GI: Currently n.p.o. Dispo: From home, likely to remain in the hospital x 1-2 days A total of 77 minutes were spent with greater than 50% of that time face to face with the patient, personally reviewing all current laboratories, imaging studies, past medication reconciliation, outpatient chart review, and discussion with specialists to collaborate care for the patient with attending. Please see attending documentation for corrections and/or additions. History of Present Illness Chief Complaint: Chest Pain Primary Care Provider: Rhianan Huitron, This is a 78-year-old male with PMHx of prostate cancer diagnosed March 2023, metastatic with lymph node involvement close to the bladder, currently on Zytiga therapy, rheumatoid arthritis on chronic prednisone and weekly methotrexate, who presents to the hospital with acute onset crushing chest pain. He reports being in his normal state of health yesterday throughout the day, ate normally and went to bed. He he was up around 1 AM as typically happens, had a cup of coffee and ate a piece of toast. He reports that this is not decaffeinated and is fairly normal for him to do. He will then have 2 more cups around 5am when he is awake for his morning medications. He describes having a crushing chest pain 3/10 which intensified from 1 AM to 2:30 AM and at its worst was 9/10. Patient describes feeling clammy, had difficulty taking deep breaths, and that pain moved into his left shoulder blade and up into his neck. He lives at home with his daughter, who called her brother, Kenneth who is present at bedside supports the history and brought him to the hospital overnight. He notes that he typically straight caths 4 times daily for history of urinary retention since having prostate cancer, denies any recent UTIs or urinary complaints. He does feel his bladder filling and notes that he is able to move a small amount of urine but then needs to straight cath to completely empty the bladder. Social Hx: Stopped smoking x 40 years, 1 ppd in 1997, no alcohol use, no ilicit drug use Family Hx: Father - from stomach ulceration Mother - Ulcerations in stomach, GERD, rheumatoid arthritis, lived until 93 Sister: Immunodeficiency issues, osteoarthrtitis Sister:Eye problems Surgical Hx: Tonsillectomy age 5 Allergies Allergy/AdvReac Type Severity Reaction Status Date / Time Sulfa (Sulfonamide Allergy Unknown UNKNOWN Verified 09/01/23 05:04 Antibiotics) Zfeccgl-WSV-WnS Reductase AdvReac Intermediate CONSTIPATIO Verified 09/01/23 05:04 Inhibitor N [Elfbiez-Xdd-Cmx Reductase Inhibitor] Home Medications Medication Instructions Recorded Confirmed Type folic acid 1 mg tablet 1 mg PO DAILY 04/04/20 09/01/23 History aspirin 81 mg chewable tablet 81 mg PO DAILY 04/15/23 09/01/23 History losartan 25 mg tablet 12.5 mg PO DAILY 04/15/23 09/01/23 History methotrexate sodium 2.5 mg tablet 12.5 mg PO WK 04/15/23 09/01/23 History tamsulosin 0.4 mg capsule 0.4 mg PO DAILY 04/15/23 09/01/23 History abiraterone 250 mg tablet (Zytiga) 1,000 mg PO DAILY 05/04/23 09/01/23 History prednisone 5 mg tablet 5 mg PO DAILY 05/25/23 09/01/23 History Past Med/Surg History Medical History (Updated 09/01/23 @ 13:22 by Nuria Benítez MD) Coronary artery disease Degeneration of lumbosacral intervertebral disc Impaired fasting glucose Morbid obesity Macular degeneration Fuchs' corneal dystrophy Frequent UTI Hypertension Rheumatoid arthritis Surgical History H/O colonoscopy History of prostate biopsy Family History Father Heart disease Stomach ulcer Mother Rheumatoid arthritis Social History Smoking Status: Former smoker Age Started Using Tobacco: 19; packs per day: 1; Second Hand Exposure: Yes; Do You Dip or Chew Tobacco: No; Hx Alcohol Use: No Hx Substance Use: No Preferred Language: French Communication Ability: Effective Visual Impairment: No Limitations Hearing Ability: Normal Lifestyle Director Required: No Beliefs That Will Affect Care: None marital status: / Current Living Situation: Family current occupational status: retired current occupation: [employer] Feels Safe at Home: Yes Safety Concerns: Feels Safe At This Time Diet: regular during the past year weight has: remained stable Assistive Devices: Cane and Glasses Review of Systems Review of Systems: Constitutional: No fever, sweats or chills Eyes: No diplopia, no worsening or blurred vision ENT: normal hearing, no trouble swallowing Respiratory: No cough, sputum, dyspnea at rest or on exertion Cardiovascular: As per HPI Abdomen: No pain, nausea, vomiting, diarrhea or constipation Musculoskeletal: No joint pain, calf pain, swelling Neurologic: No weakness, numbness/tingling, or balance problems, + walks with use of a cane Psychiatric: No anxiety or depression Skin: No rash or itch Physical Exam Physical Exam: General: awake, alert, no apparent distress, obese white male, BMI 39.1 Head: Normocephalic, atraumatic ENT: PERRL, EOMI, no pharyngeal exudate, mucous membranes moist Chest: Clear to auscultation, on room air 96% throughout visit, no adventitious breath sounds Cardiac: V. tach with heart rate in 118-120s at rest, no murmur, no JVD, normal peripheral pulses, good capillary refill Abdominal: NABS x 4 quadrants, soft, nondistended, nontender to palpation, no rebound or guarding Extremities: Normal inspection, 1+ peripheral edema BLE, no erythema, calfs nontender to palpation Psych: Normal mood and affect Neuro: AAO x 3, strength intact bilaterally and rated 5/5, no motor deficits, speech is clear, no peripheral sensory deficits Results & Data Results & Data Vital Signs (Past 12 Hours) Vital Signs Temp Pulse Pulse Resp BP BP Pulse Ox 09/01/23 08:15 118 H 24 126/80 98 09/01/23 08:15 118 H 24 97 09/01/23 06:30 111/82 09/01/23 06:30 108 H 20 97 09/01/23 06:20 105 H 20 97 09/01/23 06:10 109 H 22 92 09/01/23 06:00 149/83 H 09/01/23 06:00 103 H 24 97 09/01/23 05:50 106 H 24 96 09/01/23 05:43 105 H 28 H 95 09/01/23 05:43 131/85 09/01/23 05:41 108 H 31 H 95 09/01/23 05:21 126/89 09/01/23 05:21 117 H 24 96 09/01/23 05:20 112 H 27 H 97 09/01/23 05:15 158/98 H 09/01/23 05:15 116 H 28 H 99 09/01/23 05:10 149/109 H 09/01/23 05:10 113 H 34 H 98 09/01/23 05:09 09/01/23 05:09 09/01/23 05:00 109 H 35 H 97 09/01/23 05:00 168/116 H 09/01/23 04:59 113 H 35 H 97 09/01/23 04:59 127/92 09/01/23 04:56 112 H 30 H 127/92 97 09/01/23 04:56 09/01/23 04:54 118 H 28 H 97 09/01/23 04:54 184/141 H 09/01/23 04:50 107 H 32 H 09/01/23 04:47 123 H 21 98 09/01/23 04:47 123 H 09/01/23 04:47 117 H 09/01/23 04:39 36.5 C 119 H 24 156/89 H 99 O2 Del Method 09/01/23 08:15 Room Air 09/01/23 08:15 Room Air 09/01/23 06:30 09/01/23 06:30 09/01/23 06:20 09/01/23 06:10 09/01/23 06:00 09/01/23 06:00 09/01/23 05:50 09/01/23 05:43 09/01/23 05:43 09/01/23 05:41 09/01/23 05:21 09/01/23 05:21 09/01/23 05:20 09/01/23 05:15 09/01/23 05:15 09/01/23 05:10 09/01/23 05:10 09/01/23 05:09 Room Air 09/01/23 05:09 Room Air 09/01/23 05:00 09/01/23 05:00 09/01/23 04:59 09/01/23 04:59 09/01/23 04:56 Room Air 09/01/23 04:56 Room Air 09/01/23 04:54 09/01/23 04:54 09/01/23 04:50 09/01/23 04:47 09/01/23 04:47 09/01/23 04:47 09/01/23 04:39 Laboratory Results 09/01/23 09/01/23 09/01/23 Unknown 05:23 04:56 WBC 12.48 H RBC 3.83 L Hgb 11.2 L POC Hgb 10.9 L Hct 34.5 L POC Hct 32 L MCV 90.1 MCH 29.2 MCHC 32.5 RDW Std Deviation 51.8 H RDW Coeff of Jenny 15.9 H Plt Count 250 MPV 10.4 Immature Gran % (Auto) 0.4 Neut % (Auto) 86.5 Lymph % (Auto) 5.6 [place] % (Auto) 5.9 Eos % (Auto) 1.2 Baso % (Auto) 0.4 Neut # (Auto) 10.79 H Lymph # (Auto) 0.70 L [place] # (Auto) 0.74 H Eos # (Auto) 0.15 Baso # (Auto) 0.05 Immature Gran # (Auto) 0.05 PT 11.3 INR 1.0 APTT 28 PTT Ratio 1.0 POC Sodium 135 Sodium 134 L POC Potassium 3.8 Potassium 3.4 L POC Chloride 100 L Chloride 99 Carbon Dioxide 27 POC Total CO2 27 Anion Gap 8 POC Anion Gap 13.0 L POC BUN 28 H BUN 25 H Creatinine 1.21 POC Creatinine 1.3 Est Cr Clr Drug Dosing 75.7 Est GFR ( Amer) 66.5 Est GFR (Non-Af Amer) 57.4 BUN/Creatinine Ratio 20.7 H Glucose 148 H POC Glucose (other) 169 H Calcium 9.8 POC Ioniz Calcium Eusebio 1.16 Magnesium 1.7 Total Bilirubin 0.6 AST 16 ALT 15 Alkaline Phosphatase 94 Troponin I High Sens 9.1 B-Natriuretic Peptide 73 Total Protein 7.7 Albumin 4.1 Globulin 3.6 Albumin/Globulin Ratio 1.1 SARS-CoV-2 (PCR) NEGATIVE Influenza Type A (PCR) Negative Influenza Type B (PCR) Negative RSV (RT-PCR) Negative Diagnostic Findings Chest X-Ray 09/01/23 05:08 XR chest 1V not portable HISTORY: Chest pain, nonspecific COMPARISON: None. FINDINGS: No pneumothorax. No pleural effusions. The heart is enlarged. There is mild central pulmonary vascular congestion without overt edema. No focal lung consolidations to suggest a pneumonia. No acute fractures. IMPRESSION: Cardiomegaly and mild congestive change. ACT 112: Negative or not required by law. Electronically signed by: Al Ames M.D. 09/01/2023 7:07 AM Chest CTA 09/01/23 05:23 CHEST CTA for AORTIC DISSECTION CT DOSE: 2344.46 mGy.cm HISTORY: Mid chest pain. eval for dissection TECHNIQUE: Multiaxial CT images of the chest were performed both before and after the intravenous administration of contrast to evaluate the aorta. 3D/MIP images were also obtained. Sagittal and coronal reformations were also reviewed. A dose lowering technique was utilized adhering to the principles of ALARA. COMPARISON STUDY: Abdomen and pelvis CT 04/03/2020. Outside hospital PET CT 2022. FINDINGS: Suboptimal evaluation due to the mild motion artifact. Noncontrast imaging through the thoracic aorta shows no evidence for an intramural hematoma. Mild to moderate coronary artery calcifications are noted. The thoracic aorta is normal and course and caliber with no evidence for a dissection. Limited views the upper abdomen demonstrate a normal liver, spleen, adrenal glands. The thyroid gland enhances normally. Normal esophagus. No mediastinal or hilar lymphadenopathy. The heart is mildly enlarged. No pleural or pericardial effusions. There are calcified right hilar lymph nodes. The main pulmonary arteries are patent. No acute fractures within the chest. No pneumothorax. Suboptimal evaluation of the lungs due to the respiratory motion artifact. The central airways appear patent. Mosaic attenuation within the lungs suggestive of mild air trapping. There are mild dependent changes seen within the lung bases. Otherwise, no focal lung consolidations to suggest a pneumonia. No evidence for pulmonary edema. IMPRESSION: 1. Suboptimal evaluation of the chest due to the respiratory motion artifact. 2. No evidence for an aortic dissection. 3. Mosaic attenuation within the lungs favors air trapping. Otherwise, no focal lung consolidations to suggest a pneumonia. 4. Mild cardiomegaly. ACT 112: Negative or not required by law. Electronically signed by: Al Ames M.D. 09/01/2023 6:46 AM ECG Additional Comments: 01-SEP-2023 04:50:11 [facility]STAT ROUTINE RETRIEVAL Sinus tachycardia with occasional Premature ventricular complexes Nonspecific ST abnormality Abnormal ECG When compared with ECG of 03-APR-2020 22:53, Premature ventricular complexes are now Present Vent. rate has increased BY 38 BPM Nonspecific T wave abnormality, worse in Inferior leads 25mm/s10mm/[id number]: [id number] by: REFERRED SELF Unconfirmed Vent. rate 113 BPM VT interval 176 ms QRS duration 100 ms QT/QTc 348/477 ms Code Status & VTE Plan Code Status Full code - discussed with pt at bedside VTE Prophylaxis Plan VTE Prophylaxis will be ordered: Yes Supervising Physician Co-Signing Physician Notes 78-year-old male with PMH of prostate cancer diagnosed March 2023 status post radiation, currently on Zytiga and Lupron therapy, RA on chronic steroids and weekly methotrexate/daily folic acid presented to the hospital with acute onset of " tight chest pain" that is started around 1 AM, progressively worsened, radiation to bilateral neck bases and shoulders, associated with somewhat queasy feeling/extreme weakness but denies any palpitation or feeling of heart beat skipping. He was noted to have frequent brief runs of nonsustained ventricular tachycardia in the ED telemetry, he received amiodarone bolus, lidocaine bolus and then was put on lidocaine infusion. He did not have further ventricular arrhythmias. He was admitted to ICU for close monitoring on lidocaine infusion. Cardiology was consulted with a plan to take him to [facility] today. Trend troponins, EKG with chest pain. Continue telemetry monitoring. Hold Zytiga at this time as it has propensity to cause QT prolongation. Monitor replete electrolytes. Patient will need to follow-up with oncology upon discharge for alternatives on Zytiga. Continue other home medications as able.Follow up echo. All labs and imaging reviewed. On exam: GENERAL: Alert and oriented x3. NAD, on RA. HEENT: No pallor, no icterus. Pupils equal, round and reactive to light. Oral mucosa moist. NECK: No JVD, no neck masses. HEART: S1 and S2 heard. Regular rate and rhythm. tachycardia. No murmur, no gallop. RESPIRATORY SYSTEM: Normal AP diameter. No accessory muscle use. No wheezing, no crackles. ABDOMEN: Soft, bowel sounds present, nontender, no distention. CENTRAL NERVOUS SYSTEM: No facial droop. Speech is clear. Obeys simple commands. Moves extremities. EXTREMITIES: 1+ edema, no erythema seen. I have seen and examined the patient and have discussed the case with the provider above. I agree with the assessment and plan as stated.
[2023-09-01] MEDS ORDERED: METOPROLOL TARTRATE 1 MG/ML VIAL IV STA ×2 (09:02→13:36)
[2023-09-01] MEDS ORDERED: METOPROLOL TARTRATE 25 MG TAB PO ONE (09:03)
[2023-09-01] MEDS: ENOXAPARIN INJ 40 MG/0.4 ML SYR SQ SCH (09:09)
[2023-09-01] MEDS ORDERED: niCARdipine HCL INJ 2.5 MG/ML 10 ML AMP ONE (09:22)
[2023-09-01] MEDS ORDERED: MIDAZOLAM HCL 1 MG/ML 2ML VIAL ONE ×2 (09:22→10:40)
[2023-09-01] MEDS ORDERED: HEPARIN (PORCINE) 1000 UNIT/ML 10 ML (CATH LAB USE ONLY) ONE ×2 (09:22→10:48)
[2023-09-01] MEDS ORDERED: fentaNYL citrate PF 100 MCG/2 ML VIAL ONE ×2 (09:23→10:51)
[2023-09-01] MEDS ORDERED: NITROGLYCERIN/D5W 100MCG/ML 20ML SYR ONE (09:23)
--- NOTE | 2023-09-01 09:31 | Cardiology Consultation ---
Date of Consultation September 01, 2023 Assessment & Plan (1) Unstable angina pectoris: (2) NSVT (nonsustained ventricular tachycardia): * Patient presents with chest discomfort and findings of sinus tachycardia with frequent brief runs of nonsustained ventricular tachycardia * Denies subjective palpitation symptoms. Denies lightheadedness or dizziness. * No past history of known coronary heart disease however certainly has risk factors given patient's age, male sex, dyslipidemia with past intolerance of statins, and history of rheumatoid arthritis and hypertension * Patient is on therapy with Zytiga, an androgen biosynthesis inhibitor for treatment of prostate carcinoma. Per review of the literature, this agent can cause hypertension, hypokalemia, QT prolongation, torsades de pointes, and cardiac failure and therefore may be an implicating factor in his presentation. This medication is going to be held and likely not reinitiated. * Medication therapy: Continue lidocaine infusion for now, add metoprolol 5 mg IV x 1 and metoprolol tartrate 25 mg p.o. x 1.. Potassium to be supplemented. * Plan for transthoracic echocardiogram * Given his chest discomfort symptoms and risk factors, we will proceed with diagnostic cardiac catheterization. * Case reviewed with Dr Jacques of emergency medicine, Shanika Denise PA-C of the [facility] service, and Dr Alvarenga of interventional cardiology for the purpose of coordination of care. * I spent a total of 55 minutes on the date of service in preparation, delivery, and documentation of the care provided to this patient, excluding any time spent in the performance of separately billed services. History of Present Illness Attending Physician: Vishal Gallegos MD History of Present Illness Mr Quijano is a 78 year old male seen in cardiology consultation per the request of Dr. Jacques for the evaluation of chest discomfort and frequent episodes of nonsustained ventricular tachycardia. The patient states that he was in his normal state of health feeling well. He woke up at 1 AM and had a snack of coffee and toast which is not unusual for him. Shortly after his snack he had abrupt onset of 8/10 intensity substernal chest discomfort. He notes no associated symptoms of a sensation of an elevated heart rate, irregular heart rate, lightheadedness or dizziness. His discomfort persisted prompting him to seek treatment in the emergency room. While in the emergency room, sinus tachycardia was present with frequent salvos of nonsustained ventricular tachycardia in the range of 3-5 beats. He received IV amiodarone with no improvement in his rhythm and then received a lidocaine infusion. The ventricular runs have since ceased. At the time of my assessment in the emergency department ongoing sinus tachycardia with rate of 120 bpm present. EKG performed x [address] segment depression limited to lead V3. He states his discomfort is down to a 1/10 intensity. History: History of dyslipidemia, statin intolerance with documented side effect of constipation Hypertension Rheumatoid arthritis for which she is on methotrexate and chronic prednisone Prostate carcinoma, diagnosed April, for which she has received a course of radiation therapy, two Lupron injections He is treated with the androgen biosynthesis inhibitor Zytiga Denies past cardiac history and denies any past history of myocardial infarction, known arrhythmia, or congestive heart failure Allergies Allergy/AdvReac Type Severity Reaction Status Date / Time Sulfa (Sulfonamide Allergy Unknown UNKNOWN Verified 09/01/23 05:04 Antibiotics) Lszfzgw-XMD-DaR Reductase AdvReac Intermediate CONSTIPATIO Verified 09/01/23 05:04 Inhibitor N [Xtmqzow-Seb-Gcz Reductase Inhibitor] Home Medications Medication Instructions Recorded Confirmed Type folic acid 1 mg tablet 1 mg PO DAILY 04/04/20 09/01/23 History aspirin 81 mg chewable tablet 81 mg PO DAILY 04/15/23 09/01/23 History losartan 25 mg tablet 12.5 mg PO DAILY 04/15/23 09/01/23 History methotrexate sodium 2.5 mg tablet 12.5 mg PO WK 04/15/23 09/01/23 History tamsulosin 0.4 mg capsule 0.4 mg PO DAILY 04/15/23 09/01/23 History abiraterone 250 mg tablet (Zytiga) 1,000 mg PO DAILY 05/04/23 09/01/23 History prednisone 5 mg tablet 5 mg PO DAILY 05/25/23 09/01/23 History Patient History Medical History Degeneration of lumbosacral intervertebral disc Impaired fasting glucose Morbid obesity Macular degeneration Fuchs' corneal dystrophy Frequent UTI Hypertension Rheumatoid arthritis Surgical History H/O colonoscopy History of prostate biopsy Family History Father Heart disease Stomach ulcer Mother Rheumatoid arthritis Social History Smoking Status: Former smoker Age Started Using Tobacco: 19; packs per day: 1; Second Hand Exposure: Yes; Do You Dip or Chew Tobacco: No; Hx Alcohol Use: Yes (rare) Preferred Language: Latvian Communication Ability: Effective Visual Impairment: No Limitations Hearing Ability: Normal Disk Recoater Required: No Beliefs That Will Affect Care: None marital status: / Current Living Situation: Alone Current Living Situation Comment: daughter will be moving in current occupational status: retired current occupation: PA [employer] Feels Safe at Home: Yes Diet: regular during the past year weight has: remained stable Assistive Devices: Cane and Glasses Review of Systems Review of Systems: All systems reviewed & are unremarkable except as noted in HPI & below Physical Exam Constitutional: WD/WN, vitals as above + obese Eyes: PERRL, conjunctivae normal, anicteric sclerae Respiratory: normal respiratory effort, lungs clear to auscultation Cardiovascular: Rate/Rhythm: + tachycardic Heart Sounds: no murmur Vessels: no JVD Gastrointestinal (Abdomen): normal bowel sounds, soft, nontender, no hepatosplenomegaly Neurologic: PERRL, EOMI, accommodation nl, no face palsy, no dysarthria Results & Data Vital Signs (Past 12 Hours) Vital Signs Temp Pulse Pulse Resp BP BP Pulse Ox 09/01/23 08:15 118 H 24 126/80 98 09/01/23 08:15 118 H 24 97 09/01/23 06:30 111/82 09/01/23 06:30 108 H 20 97 09/01/23 06:20 105 H 20 97 09/01/23 06:10 109 H 22 92 09/01/23 06:00 149/83 H 09/01/23 06:00 103 H 24 97 09/01/23 05:50 106 H 24 96 09/01/23 05:43 105 H 28 H 95 09/01/23 05:43 131/85 09/01/23 05:41 108 H 31 H 95 09/01/23 05:21 126/89 09/01/23 05:21 117 H 24 96 09/01/23 05:20 112 H 27 H 97 09/01/23 05:15 158/98 H 09/01/23 05:15 116 H 28 H 99 09/01/23 05:10 149/109 H 09/01/23 05:10 113 H 34 H 98 09/01/23 05:09 09/01/23 05:09 09/01/23 05:00 109 H 35 H 97 09/01/23 05:00 168/116 H 09/01/23 04:59 113 H 35 H 97 09/01/23 04:59 127/92 09/01/23 04:56 112 H 30 H 127/92 97 09/01/23 04:56 09/01/23 04:54 118 H 28 H 97 09/01/23 04:54 184/141 H 09/01/23 04:50 107 H 32 H 09/01/23 04:47 123 H 21 98 09/01/23 04:47 123 H 09/01/23 04:47 117 H 09/01/23 04:39 36.5 C 119 H 24 156/89 H 99 O2 Del Method 09/01/23 08:15 Room Air 09/01/23 08:15 Room Air 09/01/23 06:30 09/01/23 06:30 09/01/23 06:20 09/01/23 06:10 09/01/23 06:00 09/01/23 06:00 09/01/23 05:50 09/01/23 05:43 09/01/23 05:43 09/01/23 05:41 09/01/23 05:21 09/01/23 05:21 09/01/23 05:20 09/01/23 05:15 09/01/23 05:15 09/01/23 05:10 09/01/23 05:10 09/01/23 05:09 Room Air 09/01/23 05:09 Room Air 09/01/23 05:00 09/01/23 05:00 09/01/23 04:59 09/01/23 04:59 09/01/23 04:56 Room Air 09/01/23 04:56 Room Air 09/01/23 04:54 09/01/23 04:54 09/01/23 04:50 09/01/23 04:47 09/01/23 04:47 09/01/23 04:47 09/01/23 04:39 Laboratory Results Cardiac Enzymes 09/01/23 Range/Units 04:56 AST 16 (13-39) U/L Troponin I High Sens 9.1 (0-20) pg/ml B-Natriuretic Peptide 73 (0-100) pg/ml Coagulation 09/01/23 Range/Units 04:56 PT 11.3 (9.0-12.0) Seconds APTT 28 (21-31) Seconds B-Natriuretic Peptide 73 (0-100) pg/ml CBC 09/01/23 Range/Units 04:56 WBC 12.48 H (4.8-10.8) K/ul RBC 3.83 L (4.70-6.10) M/uL Hgb 11.2 L (14.0-18.0) g/dl Hct 34.5 L (42.0-52.0) % Plt Count 250 (130-400) K/uL Neut # (Auto) 10.79 H (1.40-6.50) K/uL Lymph # (Auto) 0.70 L (1.20-3.40) K/uL [place] # (Auto) 0.74 H (0.11-0.59) K/uL Eos # (Auto) 0.15 (0.00-0.50) K/uL Baso # (Auto) 0.05 (0.00-0.20) K/uL Comprehensive Metabolic Panel 09/01/23 Range/Units 04:56 Sodium 134 L (136-145) mmol/L Potassium 3.4 L (3.5-5.1) mmol/L Chloride 99 (98-107) mmol/L Carbon Dioxide 27 (21-32) mmol/L BUN 25 H (6-23) mg/dl Creatinine 1.21 (0.6-1.4) mg/dl Glucose 148 H (70-99(Fasting)) mg/dl Calcium 9.8 (8.6-10.3) mg/dl AST 16 (13-39) U/L ALT 15 (7-52) U/L Alkaline Phosphatase 94 (34-104) U/L Total Protein 7.7 (6.0-8.3) gm/dl Albumin 4.1 (3.4-5.0) gm/dl Intake and Output 08/31/23 09/01/23 09/01/23 22:59 06:59 14:59 Intake Total 102 / 102 Balance 102 / 102 Intake: IV 102 / 102 Amiodarone / D5w 150 mg In 100 100 / 100 ml @ 600 mls/hr IV NOW STA Rx#: [id number] Lidocaine/D5w Drip 4Mg/ml 2,000 2 / 2 mg In 500 ml @ 1 MG/MIN 15 mls /hr IV .Q24H [facility] Rx#:[id number] Other: Weight 138.3 kg Weight Measurement Method Chair Scale Diagnostic Findings EKG performed 09/01/2023 at 4:50 AM and interpreted independently: Sinus tach ycardia [address] segment depression in lead V3, two unifocal PVCs observed.
--- NOTE | 2023-09-01 09:50 | Pre Anesthesia Assessment ---
Date of Service September 01, 2023 Pre Sedation Assessment Vital Signs Temp Pulse Pulse Resp BP BP Pulse Ox 09/01/23 09:32 96 H 20 145/80 H 95 09/01/23 08:15 118 H 24 126/80 98 09/01/23 08:15 118 H 24 97 09/01/23 06:30 111/82 09/01/23 06:30 108 H 20 97 09/01/23 06:20 105 H 20 97 09/01/23 06:10 109 H 22 92 09/01/23 06:00 149/83 H 09/01/23 06:00 103 H 24 97 09/01/23 05:50 106 H 24 96 09/01/23 05:43 105 H 28 H 95 09/01/23 05:43 131/85 09/01/23 05:41 108 H 31 H 95 09/01/23 05:21 126/89 09/01/23 05:21 117 H 24 96 09/01/23 05:20 112 H 27 H 97 09/01/23 05:15 158/98 H 09/01/23 05:15 116 H 28 H 99 09/01/23 05:10 149/109 H 09/01/23 05:10 113 H 34 H 98 09/01/23 05:09 09/01/23 05:09 09/01/23 05:00 109 H 35 H 97 09/01/23 05:00 168/116 H 09/01/23 04:59 113 H 35 H 97 09/01/23 04:59 127/92 09/01/23 04:56 112 H 30 H 127/92 97 09/01/23 04:56 09/01/23 04:54 118 H 28 H 97 09/01/23 04:54 184/141 H 09/01/23 04:50 107 H 32 H 09/01/23 04:47 123 H 21 98 09/01/23 04:47 123 H 09/01/23 04:47 117 H 09/01/23 04:39 97.7 F 119 H 24 156/89 H 99 O2 Del Method 09/01/23 09:32 Room Air 09/01/23 08:15 Room Air 09/01/23 08:15 Room Air 09/01/23 06:30 09/01/23 06:30 09/01/23 06:20 09/01/23 06:10 09/01/23 06:00 09/01/23 06:00 09/01/23 05:50 09/01/23 05:43 09/01/23 05:43 09/01/23 05:41 09/01/23 05:21 09/01/23 05:21 09/01/23 05:20 09/01/23 05:15 09/01/23 05:15 09/01/23 05:10 09/01/23 05:10 09/01/23 05:09 Room Air 09/01/23 05:09 Room Air 09/01/23 05:00 09/01/23 05:00 09/01/23 04:59 09/01/23 04:59 09/01/23 04:56 Room Air 09/01/23 04:56 Room Air 09/01/23 04:54 09/01/23 04:54 09/01/23 04:50 09/01/23 04:47 09/01/23 04:47 09/01/23 04:47 09/01/23 04:39 Cardiovascular + regular rate Respiratory + respiratory effort normal Pre-Sedation Airway Assessment Smoking Status: Former smoker Hx Sleep Apnea: No Hx Difficult Intubation: No Short, Thick Neck: No Thyromental Distance: > or= 3.5 Finger Breadths Oral Cavity: + WNL Mallampati Class: II ASA: ASA3 NPO Status Date of Last Intake of Fluids: 09/01/23 Time of Last Intake of Fluids: 01:00 Date of Last Intake of Solid Food: 09/01/23 Time of Last Intake of Solid Foods: 01:00 Procedure Planning Contraindications for Sedation: none Current Medications Reviewed: Yes Notes The planned sedation has been discussed with the patient. Informed Consent was obtained. I have identified the patient, determined the appropriateness of sedation and have assessed the patient immediately prior to the procedure. All medicine(s) and interventions are by my order.
[2023-09-01] MEDS ORDERED: ONDANSETRON INJ 2 MG/ML 2 ML VIAL IV PRN (09:57)
[2023-09-01] MEDS ORDERED: CLOPIDOGREL BISULFATE 300 MG TAB ONE (11:00)
--- NOTE | 2023-09-01 11:07 | Post Anesthesia Assessment ---
Date of Service September 01, 2023 Post Sedation Assessment Vital Signs Temp Pulse Pulse Resp BP BP Pulse Ox 09/01/23 09:32 96 H 20 145/80 H 95 09/01/23 08:15 118 H 24 126/80 98 09/01/23 08:15 118 H 24 97 09/01/23 06:30 111/82 09/01/23 06:30 108 H 20 97 09/01/23 06:20 105 H 20 97 09/01/23 06:10 109 H 22 92 09/01/23 06:00 149/83 H 09/01/23 06:00 103 H 24 97 09/01/23 05:50 106 H 24 96 09/01/23 05:43 105 H 28 H 95 09/01/23 05:43 131/85 09/01/23 05:41 108 H 31 H 95 09/01/23 05:21 126/89 09/01/23 05:21 117 H 24 96 09/01/23 05:20 112 H 27 H 97 09/01/23 05:15 158/98 H 09/01/23 05:15 116 H 28 H 99 09/01/23 05:10 149/109 H 09/01/23 05:10 113 H 34 H 98 09/01/23 05:09 09/01/23 05:09 09/01/23 05:00 109 H 35 H 97 09/01/23 05:00 168/116 H 09/01/23 04:59 113 H 35 H 97 09/01/23 04:59 127/92 09/01/23 04:56 112 H 30 H 127/92 97 09/01/23 04:56 09/01/23 04:54 118 H 28 H 97 09/01/23 04:54 184/141 H 09/01/23 04:50 107 H 32 H 09/01/23 04:47 123 H 21 98 09/01/23 04:47 123 H 09/01/23 04:47 117 H 09/01/23 04:39 97.7 F 119 H 24 156/89 H 99 O2 Del Method 09/01/23 09:32 Room Air 09/01/23 08:15 Room Air 09/01/23 08:15 Room Air 09/01/23 06:30 09/01/23 06:30 09/01/23 06:20 09/01/23 06:10 09/01/23 06:00 09/01/23 06:00 09/01/23 05:50 09/01/23 05:43 09/01/23 05:43 09/01/23 05:41 09/01/23 05:21 09/01/23 05:21 09/01/23 05:20 09/01/23 05:15 09/01/23 05:15 09/01/23 05:10 09/01/23 05:10 09/01/23 05:09 Room Air 09/01/23 05:09 Room Air 09/01/23 05:00 09/01/23 05:00 09/01/23 04:59 09/01/23 04:59 09/01/23 04:56 Room Air 09/01/23 04:56 Room Air 09/01/23 04:54 09/01/23 04:54 09/01/23 04:50 09/01/23 04:47 09/01/23 04:47 09/01/23 04:47 09/01/23 04:39 Recovery Score Activity: Moves 4 extremities Respiration: Deep Breath/Cough Circulation: +/-20% PreAnes Value Consciousness: Fully Awake Oxygen Saturation: O2 needed for >90% Discharge Sedation Level of Care: Fast Track Phase II Post Sedation Plan On clinical assessment, the patient appears to have tolerated the sedation without complications. Patient is recovering as anticipated. Patient will continue to be monitored by nursing and may be discharged when sedation discharge criteria are met per below protocol. Upon Completions of procedure up to 15 minutes continue every 5 minute vital signs and the P.A.R. score; then discharge to a Phase I or Fast Track to Phase II per the following guidelines: * Discharge Patient to appropriate Phase II area if PAR is 8 or greater or return to pre- procedure baseline. The post - procedure orders will be as directed. * If PAR score is less than 8 or not return to pre-procedure baseline then patient will follow Phase I monitoring till PAR is reached for Phase II. The Phase I may be done in procedure room or may call to secure a Phase I area. * If naloxone or flumazenil are used for reversal, hold in Phase I for continued monitoring from when last reversal dose was given for a minimum of 60 minutes or longer pending the nurse and/or physician discretion of patient condition before discharge to Phase II. Please call the Sedation Physician to re-evaluate and complete post-note for discharge to Phase II area. Do NOT discharge from procedure sedation or Phase 1 until post- sedation evaluation note is complete by procedure /sedation MD Sedation Discharge Instructions to be given to the patient at discharge to home.
--- NOTE | 2023-09-01 11:35 | Cardiac Catheterization ---
[facility] Data: Count Team Member Cardiac Status Clinical evaluation leading to the procedure CAD Presenation: Unstable angina Anginal Classification: CCS IV Diagnostic Physicians Name: Vineet Alvarenga MD Closure Device Recommendations: Medical Therapy and/or Counseling Cardiac Cath Procedure Full Procedure Date September 01, 2023 Pre-Procedure Diagnosis Pre-Procedure Diagnosis: Angina and Arrhythmia AUC Score AUC Score: 8 Post-Procedure Diagnosis Post-Procedure Diagnosis: Severe CAD and Successful PCI Procedure(s) Performed Procedure(s) Performed: Coronary Angiography, Left Heart Cath, Drug Eluting Stent, Ultrasound Guided Vascular Access and IVUS Insurance Claims Clerk Vineet Alvarenga MD White Hat Hacker(s) Debbie Estimated Blood Loss Estimated Blood Loss: 20 Medication(s) Medication(s): Clopidogrel, Fentanyl, Heparin, Lidocaine 1%, Nicardipine, Nitroglycerin and Versed Summary of Findings Indication: Suspected ACS, ventricular tachycardia Access: 6 Fr right radial artery under ultrasound guidance Catheters: [place], pigtail, EBU 3.5 guide Findings: LM -normal caliber, luminal irregularities LAD -medium caliber, 60% mid stenosis at takeoff of first septal/small D2. Remainder of mid/distal LAD without significant disease and wraps around apex. Large D1 without significant disease. Circumflex -large caliber, 30% proximal stenosis just after takeoff of large high OM1. 30% mid segment stenosis. 40 to 50% distal stenosis before left PLB. Large OM1 without significant disease. RCA -dominant, medium caliber, 60% proximal stenosis, 30% mid disease, 40% distal stenosis just before takeoff of RPDA. Small to medium RPDA without significant disease. LVEDP -23 Decision to further evaluate mid LAD intermediate stenosis with IVUS. Left main cannulated with EBU 3.5 guide BMW wire placed into distal LAD Castillo IVUS catheter placed into latemid LAD Pullback revealed 70 to 75% mid LAD stenosis at area of interest with no thrombus but soft, mildly calcified higher risk plaque. Decision to proceed with PCI. -- PCI -- Antithrombotic therapy: Heparin, clopidogrel Procedure: Pre-procedure flow BENITEZ 3 Mid LAD lesion predilated with 2.5 compliant balloon Dilated lesion stented with 3.0 x 18 mm Xience drug-eluting Stent post-dilated with 3.5 noncompliant balloon Repeat IVUS showed well-expanded, well apposed stent with no apparent edge complications IC vasodilators administered for spasm Post procedure BENITEZ 3 flow, stent well expanded with minimal residual stenosis and no apparent cardiac complications. Arterial Closure: TR band Summary: 1. Severe single vessel coronary artery disease -75% mid LAD stenosis by IVUS 60% proximal, 40% distal RCA 30% proximal, mid circumflex. 40 to 50% distal circumflex 2. Elevated intracardiac filling pressure (LVEDP 23) 3. Successful PCI of mid LAD with single drug-eluting stent (3.0 x 18 mm Xience; postdilated with 3.5 NC) Recommendations: To ICU for continued monitoring Loaded with clopidogrel 600 mg in Count Team Member Continue dual-antiplatelet therapy for at least 6 months Continue ASCVD risk factor modification Consult cardiac Rehab Medical management of residual moderate CAD. Suspect arrhythmia on presentation unrelated to CAD. Potentially related to antiandrogen therapy for prostate CA. Defer further management to Dr. Greenfield, oncology Hemodynamics Rest Ao:: 127/ Final Ao: 124// LV: 140/23 Recommendations Recommendations: Medical Therapy and/or Counseling Specimens Specimens: None Radiation Exposure (mGy) 3229 Contrast (mls) 120 Anesthesia Moderate [id number] Procedural Complication(s) None Disposition ICU I attest to the content of the Intraoperative Record and any orders documented therein. Any exceptions are noted below. [facility] Card Cath Procedure Codes Cardiac Catheterization Procedure 1: Cardiovascular Cath Procedures: 42379 Coronaries and LHC (+/-LV) Therapeutic Services & Ancillary Procedure 1: Cardiovascular Tx and Anc Procedures: 43393 Ultrasonic Guidance Vascular Access Procedure 2: Cardiovascular Tx and Anc Procedures: 60161 IV Ultrasound (Coronary or Graft) Moderate Sedation Procedure 1: Sedation/Anesthesia: 21538 Mod Sedation by the same physician;Init15 Min Child Age 5 & Up Procedure 2: Sedation/Anesthesia: 62432 Mod Sedation by the same physician; Ea [id number] Minutes Stenting Procedure 1: Cardiovascular Stent Procedures: 30127 Perc transcatheter placement of intracoronary stent(s), with ang PG Care Time/CCT Total # of Minutes Spent Total Time Spent with Patient: Total time spent is greater than 50% in coordination of care (as documented) at patient's floor/unit and/or counseling patient:
--- NOTE | 2023-09-01 12:14 | Electrocardiogram Report ---
Test Reason : Blood Pressure : / mmHG Vent. Rate : 113 BPM Atrial Rate : 113 BPM P-R Int : 176 ms QRS Dur : 100 ms QT Int : 348 ms P-R-T Axes : 000 064 044 degrees QTc Int : 477 ms Sinus tachycardia with occasional Premature ventricular complexes Nonspecific ST abnormality Abnormal ECG When compared with ECG of 03-APR-2020 22:53, Premature ventricular complexes are now Present Vent. rate has increased BY 38 BPM Nonspecific T wave abnormality, worse in Inferior leads Confirmed by Teddy Liz ([id number]) on 09/01/2023 12:14:18 PM Referred By: REFERRED SELF Confirmed By:Teddy Liz
--- NOTE | 2023-09-01 12:19 | Electrocardiogram Report ---
Test Reason : Blood Pressure : / mmHG Vent. Rate : 086 BPM Atrial Rate : 087 BPM P-R Int : 170 ms QRS Dur : 102 ms QT Int : 362 ms P-R-T Axes : 109 059 091 degrees QTc Int : 433 ms Poor data quality, interpretation may be adversely affected Normal sinus rhythm Nonspecific ST abnormality Abnormal ECG When compared with ECG of 01-SEP-2023 04:50, (unconfirmed) No significant change Confirmed by Teddy Liz ([id number]) on 09/01/2023 12:19:51 PM Referred By: REFERRED SELF Confirmed By:Teddy Liz
[2023-09-01 13:18] LABS: Appearance Urine Clear (Clear); Bacteria Urine Automated Negative (Negative); Bilirubin Urine Negative (Negative); Blood Urine Negative (Negative); Color Urine Yellow; Epithelial Cell Urine Auto >30 /lpf (0-5); Glucose Urine UA Negative (Negative); Ketones Urine Negative (Negative); Leukocyte Esterase Urine Negative (Negative); Nitrite Urine Negative (Negative); Protein Urine 1+ (Negative); RBC Urine Automated 0-4 /hpf (0-4); Specific Gravity Urine > 1.045 (1.000-1.030); Urobilinogen Urine Negative (Negative)
--- NOTE | 2023-09-01 13:24 | Critical Care Consultation ---
Date of Consultation September 01, 2023 Assessment & Plan (1) NSVT (nonsustained ventricular tachycardia): (2) Rheumatoid arthritis: (3) Hypertension: (4) Urinary retention: (5) Prostate cancer: (6) Coronary artery disease: (7) Unstable angina pectoris: Plan Mr. Wharton is a 78 y/o male with a PMHx of prostate cancer (dx 03/2023) with lymph node involvement near bladder currently on Zytiga therapy, rheumatoid arthritis on chronic prednisone and weekly methotrexate, and hyperlipidemia who presents to the hospital with acute onset crushing chest pain. He is currently s/p cardiac catheterization and was on Lidocaine drip due to episodes of non- sustained ventricular tachycardia. He was admitted to the ICU for monitoring. NEURO: Neurologically intact CARDIOVASCULAR: Coronary Artery Disease: - Chest pain related to potential unstable angina. EKG in the ED without ST-segment elevations, Troponins normal at 9.1. - Cardiac catheterization found severe CAD in LAD (75%), as well as 60% in proximal and 40% in distal RCA, 30% proximal and 40-50% distal Circumflex. Single drug-eluding stent placed in mid-LAD. Patient to remain in DAPT for 6 months. Medical management advised. - Trend Troponins Q6H Non-sustained V-Tach: - Believed to be related to patient's medication for his prostate cancer (Zytiga), a medication that can cause HTN, hypokalemia, and arrhythmias. Medication discontinued. Also s/p metoprolol 5 mg IV x 1 and metoprolol tartrate 25 mg p.o. x 1. Hypertension: - Uses Losartan 12.5mg at home, which was stopped at the time of admission - BPs have remained elevated with systolic BP 170-200 mmHg. Patient currently not at goal BP (systolic BP <150 mmHg and diastolic <90). Therefore, lidocaine infusion was discontinued, and Metoprolol tartrate was increased from 25 mg to 50 mg PO QID, and Losartan 25mg PO daily was added (first dose now). PULMONARY: Currently saturating 100% with nasal cannula at 2 lpm. No history of pulmonary disease or oxygen requirements. GASTROINTESTINAL: No GI ppx at the time HEMATOLOGY: HH stable No pharm VTE ppx. Patient encouraged to ambulate as able INFECTIOUS DISEASE: No current antibiotics. No recorded fevers RENAL: Patient with history of Prostate cancer and associated urinary outlet obstruction. He usually straight caths at home around 4 times a day. U/A without nitrites, leukocyte esterase, or bacteria. Offered Ingram catheter, but he preferred to maintain his usual routine of straight cath 4 times a day. Creatinine 1.21. ENDO: Patient without known history of diabetes. Hgb A1c ordered. LINES/DRAINS/ACCESS: PIV CODE STATUS: Full Code Supervising Physician Co-Signing Physician Notes Patient seen and examined. EMR reviewed. Discussed with family practice resident and agree with assessment plan as noted. The patient is currently awake alert and conversant. He remains hypertensive. He has a regular rate and rhythm. Lungs are clear. Laboratory studies and imaging studies reviewed. Discussed with cardiology. Continue to follow in the ICU post stent placement. Echocardiogram pending. Can likely downgrade out of the ICU in the AM. Given his elevated blood pressure, will increase his metoprolol to 50 mg every 6 hours. Continue losartan. Wean off Nitropaste. Discussed with patient and family at bedside. History of Present Illness Reason for Consultation: Ventricular Arrhythmia on Lidocaine drip Requesting Physician: Vishal Gallegos MD Attending Physician: Vishal Gallegos MD History of Present Illness Mr. Wharton is a 78 y/o male with a PMHx of prostate cancer (dx 03/2023) with lymph node involvement near bladder currently on Zytiga therapy, rheumatoid arthritis on chronic prednisone and weekly methotrexate, and hyperlipidemia who presents to the hospital with acute onset crushing chest pain since 1am this morning. This pain radiated to his left scapular region and neck, and was associated to diaphoresis, and shortness of breath. As time passed, his pain gradually got worse until it reached a 9/10 intensity. While in the ED, he was noted to be in sinus tachycardia with some episodes of V-Tach that lasted around 3-5 beats. He was given Amiodarone and lidocaine drip, and since then V-tach has not recurred. Troponins at the time were 9.1. He was taken for diagnostic cardiac catheterization given initial presentation and episodes of V-tach, which showed severe stenosis in mid-LAD (75%). On arrival to the ICU, patient is found to be accompanied by his son, paradise, and in no acute distress. His only complaint is of discomfort/pain in the location where they gained access for his catheterization (right wrist). No concerns to address at this time. Allergies Allergy/AdvReac Type Severity Reaction Status Date / Time Sulfa (Sulfonamide Allergy Unknown UNKNOWN Verified 09/01/23 05:04 Antibiotics) [id number]-[id number]-YfS Reductase AdvReac Intermediate CONSTIPATIO Verified 09/01/23 05:04 Inhibitor N [Puphdxo-Yuq-Qzw Reductase Inhibitor] Home Medications Medication Instructions Recorded Confirmed Type folic acid 1 mg tablet 1 mg PO DAILY 04/04/20 09/01/23 History aspirin 81 mg chewable tablet 81 mg PO DAILY 04/15/23 09/01/23 History losartan 25 mg tablet 12.5 mg PO DAILY 04/15/23 09/01/23 History methotrexate sodium 2.5 mg tablet 12.5 mg PO WK 04/15/23 09/01/23 History tamsulosin 0.4 mg capsule 0.4 mg PO DAILY 04/15/23 09/01/23 History abiraterone 250 mg tablet (Zytiga) 1,000 mg PO DAILY 05/04/23 09/01/23 History prednisone 5 mg tablet 5 mg PO DAILY 05/25/23 09/01/23 History Patient History Medical History (Updated 09/01/23 @ 13:22 by Nuria Benítez MD) Coronary artery disease Degeneration of lumbosacral intervertebral disc Impaired fasting glucose Morbid obesity Macular degeneration Fuchs' corneal dystrophy Frequent UTI Hypertension Rheumatoid arthritis Surgical History H/O colonoscopy History of prostate biopsy Family History Father Heart disease Stomach ulcer Mother Rheumatoid arthritis Social History Smoking Status: Former smoker Age Started Using Tobacco: 19; packs per day: 1; Second Hand Exposure: Yes; Do You Dip or Chew Tobacco: No; Hx Alcohol Use: No Hx Substance Use: No Preferred Language: Yakut Communication Ability: Effective Visual Impairment: No Limitations Hearing Ability: Normal [employer] Consultant Required: No Beliefs That Will Affect Care: None marital status: / Current Living Situation: Family current occupational status: retired current occupation: [employer] Feels Safe at Home: Yes Safety Concerns: Feels Safe At This Time Diet: regular during the past year weight has: remained stable Assistive Devices: Cane and Glasses Review of Systems Review of Systems: All systems reviewed & are unremarkable except as noted in HPI & below Physical Exam Physical Exam: GENERAL: awake, alert, oriented in all spheres HEAD: Atraumatic, Normocephalic EYES: EOM intact, TESFAYE THROAT: No masses or lesions appreciated on visual exam CARDIO: RRR, no r/m/g RESPIRATORY: No wheezing, rales, crackles bilaterally, no respiratory distress GI: non-distended, non-tender, no masses : No Ingram catheter EXTREMITIES: mild swelling in bilateral LE, no calf tenderness, no discoloration SKIN: bandage over right wrist covering access location for catheterization, no rashes Results & Data Results & Data Vital Signs (Past 12 Hours) Vital Signs Temp Pulse Pulse Resp BP BP Pulse Ox 09/01/23 11:40 89 16 172/84 H 96 09/01/23 11:25 82 16 143/74 H 96 09/01/23 11:10 85 16 145/82 H 96 09/01/23 09:32 96 H 20 145/80 H 95 09/01/23 08:15 118 H 24 126/80 98 09/01/23 08:15 118 H 24 97 09/01/23 06:30 111/82 09/01/23 06:30 108 H 20 97 09/01/23 06:20 105 H 20 97 09/01/23 06:10 109 H 22 92 09/01/23 06:00 149/83 H 09/01/23 06:00 103 H 24 97 09/01/23 05:50 106 H 24 96 09/01/23 05:43 105 H 28 H 95 09/01/23 05:43 131/85 09/01/23 05:41 108 H 31 H 95 09/01/23 05:21 126/89 09/01/23 05:21 117 H 24 96 09/01/23 05:20 112 H 27 H 97 09/01/23 05:15 158/98 H 09/01/23 05:15 116 H 28 H 99 09/01/23 05:10 149/109 H 09/01/23 05:10 113 H 34 H 98 09/01/23 05:09 09/01/23 05:09 09/01/23 05:00 109 H 35 H 97 09/01/23 05:00 168/116 H 09/01/23 04:59 113 H 35 H 97 09/01/23 04:59 127/92 09/01/23 04:56 112 H 30 H 127/92 97 09/01/23 04:56 09/01/23 04:54 118 H 28 H 97 09/01/23 04:54 184/141 H 09/01/23 04:50 107 H 32 H 09/01/23 04:47 123 H 21 98 09/01/23 04:47 123 H 09/01/23 04:47 117 H 09/01/23 04:39 36.5 C 119 H 24 156/89 H 99 O2 Del Method O2 Flow Rate 09/01/23 11:40 Nasal Cannula 6 09/01/23 11:25 Nasal Cannula 6 09/01/23 11:10 Nasal Cannula 6 09/01/23 09:32 Room Air 09/01/23 08:15 Room Air 09/01/23 08:15 Room Air 09/01/23 06:30 09/01/23 06:30 09/01/23 06:20 09/01/23 06:10 09/01/23 06:00 09/01/23 06:00 09/01/23 05:50 09/01/23 05:43 09/01/23 05:43 09/01/23 05:41 09/01/23 05:21 09/01/23 05:21 09/01/23 05:20 09/01/23 05:15 09/01/23 05:15 09/01/23 05:10 09/01/23 05:10 09/01/23 05:09 Room Air 09/01/23 05:09 Room Air 09/01/23 05:00 09/01/23 05:00 09/01/23 04:59 09/01/23 04:59 09/01/23 04:56 Room Air 09/01/23 04:56 Room Air 09/01/23 04:54 09/01/23 04:54 09/01/23 04:50 09/01/23 04:47 09/01/23 04:47 09/01/23 04:47 09/01/23 04:39 Coding Level of Care Code 29016 IN/OBS CONSULT LVL 4,60M Diagnoses NSVT (nonsustained ventricular tachycardia) I47.29 Rheumatoid arthritis M06.9 Hypertension I10 Urinary retention R33.9 Prostate cancer C61 Coronary artery disease I25.10 Unstable angina pectoris I20.0 Resident Activity Tracking Resident Involvement: Resident Care Provided Care Provided: Adult [facility] Medicine
[2023-09-01] MEDS ORDERED: POTASSIUM CHLORIDE CRTAB 20 MEQ TABCR PO STA (13:45)
--- NOTE | 2023-09-01 13:49 | Communication Note ---
Date of Service: September 01, 2023 Pt reassessed in ICU post cardiac catheterization, LAD stent. SBP elevated in the 170s to 180s. SR in the 80s noted. Plan: DC lidocaine infusion Metoprolol 5 mg IV x 1, then metoprolol tartrate 25 mg PO QID. 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 May need to add furosemide in future. AMAN
[2023-09-01] MEDS: NITROGLYCERIN 2% OINTMENT 30GM TUBE EXT SCH ×2 (14:42→17:30)
[2023-09-01] MEDS: predniSONE 5 MG TAB PO SCH (14:43)
[2023-09-01] MEDS: TAMSULOSIN HCL 0.4 MG CAP PO SCH (14:43)
[2023-09-01] MEDS: LOSARTAN POTASSIUM 25 MG TAB PO SCH (14:47)
[2023-09-01] MEDS ORDERED: METOPROLOL TARTRATE 25 MG TAB PO SCH (17:00)
[2023-09-01] MEDS: ICU Protocol for HYPERglycemia SCH ×2 (17:20→22:56)
[2023-09-01] MEDS: METOPROLOL TARTRATE 50 MG TAB PO SCH ×2 (17:27→22:58)
[2023-09-01] MEDS ORDERED: POTASSIUM CHLORIDE CRTAB 20 MEQ TABCR PO ONE (18:00)
[2023-09-01] MEDS: MAGNESIUM OXIDE 400 MG TAB PO SCH (20:53)
[2023-09-02] MEDS: NITROGLYCERIN 2% OINTMENT 30GM TUBE EXT SCH ×2 (00:17→05:25)
[2023-09-02] MEDS: ACETAMINOPHEN 325 MG TAB PO PRN ×3 (05:28→19:32)
[2023-09-02 05:45] LABS: Hematocrit (blood only) 30.5 % (42.0-52.0); Hemoglobin 9.5 g/dl (14.0-18.0); Mean Corpuscular Hemoglobin 28.7 pg (25.0-34.0); Mean Corpuscular Hgb Conc 31.1 g/dL (32.0-36.0); Mean Corpuscular Volume 92.1 fL (80.0-100.0); Mean Platelet Volume 9.9 fL (9.4-12.4); Platelet Count 198 K/uL (130-400); RDW Coefficient of Variation 16.1 % (11.5-14.5); RDW Standard Deviation 53.5 fL (36.4-46.3); Red Blood Count 3.31 M/uL (4.70-6.10); White Blood Count 9.55 K/ul (4.8-10.8)
[2023-09-02 06:00] LABS: Chol HDL Ratio 1.9 (0-5); Creatinine Clr Calc Pharmacy 62.1 ml/min; Est GFR (African American) 52.6 ml/min; Est GFR (Non-African American) 45.4 ml/min; Magnesium 1.8 mg/dl (1.7-2.4); Phosphorus 3.5 mg/dl (2.5-4.9); Potassium 4.5 mmol/L (3.5-5.1)
[2023-09-02 06:08] LABS: Troponin I High Sensitivity 172.1 pg/ml (0-20)
[2023-09-02] MEDS: MAGNESIUM SULFATE / D5W 1 GM/100 ML BAG IV SCH ×3 (06:42→10:34)
[2023-09-02 07:38] LABS: Estimated Average Glucose 117 mg/dl; Hemoglobin A1C 5.7 % (4.5-5.6)
--- NOTE | 2023-09-02 07:41 | Critical Care Progress Note ---
Date of Service September 02, 2023 Assessment & Plan (1) NSVT (nonsustained ventricular tachycardia): (2) Rheumatoid arthritis: (3) Hypertension: (4) Urinary retention: (5) Prostate cancer: (6) Coronary artery disease: (7) Unstable angina pectoris: Plan Mr. Wharton is a 78 y/o male with a PMHx of prostate cancer (dx 03/2023) with lymph node involvement near bladder currently on Zytiga therapy, rheumatoid arthritis on chronic prednisone and weekly methotrexate, and hyperlipidemia who presents to the hospital with acute onset crushing chest pain. He is currently s/p cardiac catheterization He was admitted to the ICU for monitoring. Last 24 hours: Patient with no overnight events. Blood pressures have been better since increase in Metoprolol dose and have stayed in goal range. Patient not referring symptoms of orthostatism such as lightheadedness when he stands. Telemetry showing occasional PVCs, but has not shown recurrence of V-tach since discontinuing Lidocaine drip. Patient found stable and fit to be downgraded today. Hospitalist notified. NEURO: Neurologically intact CARDIOVASCULAR: Coronary Artery Disease: - Patient s/p cardiac catheterization with drug-eluding stent placement in mid-LAD. Medical management advised as well as DAPT for 6 months. Non-sustained V-Tach: - Believed to be related to patient's medication for his prostate cancer (Zytiga), which was stopped at admission. No recurrence. Hypertension: - Well controlled since increase in Metoprolol tartrate to 50mg QID along with Losartan 25mg qam. Goal of systolic BP < 150 mmHg and diastolic < 90 mmHg. PULMONARY: Currently saturating 97% with nasal cannula at 2 lpm. No history of pulmonary disease or oxygen requirements. GASTROINTESTINAL: No GI ppx at the time HEMATOLOGY: HH stable VTE ppx with SCDs INFECTIOUS DISEASE: No current antibiotics. No recorded fevers RENAL: Patient with history of Prostate cancer and associated urinary outlet obstruction. Has been straight cath 4 times daily as he does at home. U/A without nitrites, leukocyte esterase, or bacteria. Creatinine increased from 1.21 to 1.47. Patient hyponatremic (131). Magnesium currently 1.8 with goal of 2. Currently on replacement. Potassium adequate at 4.5. ENDO: Patient without known history of diabetes. Hgb A1c pending. LINES/DRAINS/ACCESS: PIV CODE STATUS: FULL CODE Admission and Anticipated Discharge Date Admission Date: September 01, 2023 Supervising Physician Co-Signing Physician Notes Patient seen and examined. EMR reviewed. Discussed on multidisciplinary rounds and with family practice resident. Patient is awake alert and conversant Regular rate and rhythm Lungs clear to auscultation Abdomen benign. Extremities no cyanosis or edema Labs reviewed x-rays reviewed. Patient is doing well clinically. No chest pain. Nitropaste has been discontinued. Continue beta-corwin and ARB. Cath site looks normal. Patient can downgrade out of the intensive care unit. Critical care will sign off. Ul timate disposition per cardiology and primary admitting service. Subjective Mr. Wharton is a 78 y/o male with a PMHx of prostate cancer (dx 03/2023) with lymph node involvement near bladder currently on Zytiga therapy, rheumatoid arthritis on chronic prednisone and weekly methotrexate, and hyperlipidemia who presents to the hospital with crushing substernal chest pain with radiation to left scapular region and left neck. Also found to have episodes of non-sustained V-tach that lasted 3-5 beats which were managed with Amiodarone and Lidocaine drip. He is s/p catheterization with stent placement in mid-LAD. Patient evaluated today at bedside and found to be alone, awake, alert, oriented in all spheres, conversant, and in no acute distress. He refers some persistent discomfort in his left scapular region and neck that is 1/10 in intensity and controlled with Tylenol. He states he has been having this discomfort for a while prior to his current admission, and he always managed it with Tylenol with success. Otherwise, has been able to stand beside the bed while they change his bedsheets and for self-cath. Denies chest pain, fevers, chills, lightheadedness, or any other symptom. Review of Systems Review of Systems: All systems reviewed & are unremarkable except as noted in HPI & below Physical Exam Physical Exam: GENERAL: awake, alert, oriented in all spheres HEAD: Atraumatic, Normocephalic EYES: EOM intact, TESFAYE THROAT: No masses or lesions appreciated on visual exam CARDIO: RRR, no r/m/g RESPIRATORY: No wheezing, rales, crackles bilaterally, no respiratory distress GI: non-distended, non-tender, no masses : No Ingram catheter EXTREMITIES: mild swelling in bilateral LE, no calf tenderness, no discoloration SKIN: Hematoma in anterior right wrist over location for catheterization, no rashes Results & Data Results & Data Vital Signs (Past 12 Hours) Vital Signs Temp Pulse Resp BP Pulse Ox O2 Del Method O2 Flow Rate 09/02/23 05:31 71 21 97 09/02/23 05:20 75 24 98 09/02/23 05:10 81 28 H 95 09/02/23 05:00 71 18 95 09/02/23 04:50 70 18 95 09/02/23 04:41 83 20 96 09/02/23 04:30 84 28 H 95 09/02/23 04:20 70 22 97 09/02/23 04:10 82 19 97 09/02/23 04:00 75 24 96 09/02/23 04:00 106/63 09/02/23 04:00 36.8 C 09/02/23 03:50 71 23 97 09/02/23 03:40 77 21 98 09/02/23 03:30 78 27 H 94 09/02/23 03:20 68 19 97 09/02/23 03:10 71 18 95 09/02/23 03:00 127/57 L 09/02/23 03:00 71 19 98 09/02/23 02:51 69 19 95 09/02/23 02:40 64 19 98 09/02/23 02:30 71 26 H 94 09/02/23 02:20 70 18 93 09/02/23 02:10 68 17 93 09/02/23 02:00 107/57 L 09/02/23 02:00 65 17 93 09/02/23 01:50 65 21 93 09/02/23 01:40 63 20 95 09/02/23 01:30 68 18 97 09/02/23 01:20 62 27 H 96 09/02/23 01:10 65 19 94 09/02/23 01:00 107/58 L 09/02/23 01:00 71 19 95 09/02/23 00:50 72 23 96 09/02/23 00:40 70 20 97 09/02/23 00:30 71 19 94 09/02/23 00:20 72 26 H 98 09/02/23 00:10 70 17 96 09/02/23 00:00 37.0 C 09/02/23 00:00 112/59 L 09/02/23 00:00 70 21 94 09/02/23 00:00 71 09/01/23 23:50 63 18 95 09/01/23 23:40 66 27 H 94 09/01/23 23:30 69 20 94 09/01/23 23:20 65 20 99 09/01/23 23:10 69 21 97 09/01/23 23:00 69 24 98 09/01/23 23:00 121/58 L 09/01/23 22:50 66 20 93 09/01/23 22:46 114/62 09/01/23 22:46 71 26 H 96 09/01/23 22:40 70 23 95 09/01/23 22:30 74 26 H 98 09/01/23 22:20 65 20 97 09/01/23 22:10 63 20 94 09/01/23 22:01 68 24 95 09/01/23 22:01 81/45 L 09/01/23 22:00 69 21 96 09/01/23 21:15 118/63 09/01/23 21:15 70 21 97 09/01/23 21:00 118/63 09/01/23 21:00 71 22 97 09/01/23 20:45 69 23 96 09/01/23 20:45 120/60 09/01/23 20:30 69 19 98 09/01/23 20:30 103/55 L 09/01/23 20:30 103/55 L 09/01/23 20:15 72 25 H 93 09/01/23 20:15 104/58 L 09/01/23 20:01 102/51 L 09/01/23 20:01 67 19 95 09/01/23 20:00 69 20 97 09/01/23 20:00 Nasal Cannula 2 09/01/23 19:45 109/57 L 09/01/23 19:45 109/57 L 09/01/23 19:45 71 24 97 Coding Level of Care Code 63556 SUB INP/OBS CARE 2/35MIN Diagnoses NSVT (nonsustained ventricular tachycardia) I47.29 Rheumatoid arthritis M06.9 Hypertension I10 Urinary retention R33.9 Prostate cancer C61 Coronary artery disease I25.10 Unstable angina pectoris I20.0
[2023-09-02] MEDS: ASPIRIN 81 MG ECTAB PO SCH (08:44)
[2023-09-02] MEDS: CLOPIDOGREL BISULFATE 75 MG TAB PO SCH (08:44)
[2023-09-02] MEDS: predniSONE 5 MG TAB PO SCH (08:44)
[2023-09-02] MEDS: ENOXAPARIN INJ 40 MG/0.4 ML SYR SQ SCH (08:44)
[2023-09-02] MEDS: TAMSULOSIN HCL 0.4 MG CAP PO SCH (08:44)
[2023-09-02] MEDS: METOPROLOL TARTRATE 50 MG TAB PO SCH (08:45)
[2023-09-02] MEDS: LOSARTAN POTASSIUM 25 MG TAB PO SCH (09:14)
[2023-09-02] MEDS: MAGNESIUM OXIDE 400 MG TAB PO SCH ×2 (09:14→19:42)
[2023-09-02] MEDS: ICU Protocol for HYPERglycemia SCH (09:14)
--- NOTE | 2023-09-02 10:12 | Cardiology Progress Note ---
Date of Service September 02, 2023 Assessment & Plan (1) Unstable angina pectoris: (2) NSVT (nonsustained ventricular tachycardia): (3) Hypertension: (4) Left ventricular systolic dysfunction: (5) Prostate cancer: Plan 78-year-old male (1) Unstable angina pectoris: Diagnostic cardiac catheterization performed 09/01/2023 send noted hazy segment of the mid LAD which had been further investigated with intravascular ultrasound revealing 75% stenosis with features of high risk of plaque. Patient therefore underwent PCI, single drug-eluting stent to the mid LAD. Residual 60% proximal, 40% distal right coronary artery stenosis noted as well as 30% proximal mid circumflex, and 40 to 50% distal circumflex lesions, for which medical management recommended LDL cholesterol well-controlled at 52 mg/dL at baseline, however given the findings of cardiac catheterization recommend initiation of rosuvastatin. Patient has had past intolerance to statin therapy with atypical side effect of constipation. Will discuss with him further. As alternative, will consider ezetimibe however given his acute presentation, will proceed with statin therapy for now. Continue aspirin, clopidogrel. (2) NSVT (nonsustained ventricular tachycardia): Patient presented with frequent runs of nonsustained ventricular tachycardia. Initially had been on a lidocaine infusion. Postcardiac catheterization transition to metoprolol and his rhythm has been stable. I had initially recommended initiation of metoprolol to tartrate (short acting formulation initiated for ease of titration) at a dose of 25 mg 4 times daily. This has been changed in the meantime by another provider to 50 mg 4 times daily. Given findings of blood pressure down to a systolic of 106 mmHg this morning and findings of left ventricular systolic dysfunction, we will transition him to long-acting metoprolol 25 mg twice daily with next dose due at 2100. (3) Hypertension: Metoprolol as noted. Received Losartan 09/01 and again today 09/02/2023 however creatinine has trended up to 1.47 mg/dl from 1.21 yesterday. Hold Losartan for now Hold IV fluid given findings of elevated left ventricular end-diastolic pressure to catheterization laboratory. Encourage oral fluid intake. (4) Left ventricular systolic dysfunction: Echocardiogram with moderate left ventricular systolic dysfunction LVEF in the range of 30-35% who presented with episodes of nonsustained ventricular tachycardia of 3-5 beats in duration. No syncope. The degree of left ventricular systolic dysfunction seems out of proportion to his degree of coronary heart disease. Hypertension or treatment with Zytiga etiology. Will plan on medication therapy. Bridge therapy with a Zoll Life vest pending reassessment for left ventricular systolic function by echocardiogram 3 months post stent and medication therapy. (5) Prostate cancer: Patient had on therapy with Zytiga, an androgen biosynthesis inhibitor for treatment of prostate carcinoma. Per review of the literature, this agent can cause hypertension, hypokalemia, QT prolongation, torsades de pointes, and cardiac failure and therefore may be an implicating factor in his presentation. This medication has been held and likely will not be reinitiated. Will need to have patient follow up with oncology / urology for alternative therapy as outpatient. DVT prophylaxis: Sq lovenox. Aurelio Greenfield DO Admission and Anticipated Discharge Date Admission Date: September 01, 2023 Subjective Patient seen in cardiology follow up. He feels well. Son also at bedside. Telemetry reveals SR in the 80s. Rare PVCs, No additional NSVT since lidocaine infusion dicontinued. States his chest pain is 0/10 having removed topical nitroglycerin prior to my arrival. Review of Systems Review of Systems: All systems reviewed & are unremarkable except as noted in HPI & below Physical Exam Constitutional: WD/WN, vitals as above + obese Eyes: PERRL, conjunctivae normal, anicteric sclerae Respiratory: normal respiratory effort, lungs clear to auscultation Cardiovascular: Rate/Rhythm: + tachycardic Heart Sounds: no murmur Vessels: no JVD Gastrointestinal (Abdomen): normal bowel sounds, soft, nontender, no hepatosplenomegaly Neurologic: PERRL, EOMI, accommodation nl, no face palsy, no dysarthria Results & Data Vital Signs (Past 12 Hours) Vital Signs Temp Pulse Resp BP Pulse Ox 09/02/23 05:31 71 21 97 09/02/23 05:20 75 24 98 09/02/23 05:10 81 28 H 95 09/02/23 05:00 71 18 95 09/02/23 04:50 70 18 95 09/02/23 04:41 83 20 96 09/02/23 04:30 84 28 H 95 09/02/23 04:20 70 22 97 09/02/23 04:10 82 19 97 09/02/23 04:00 75 24 96 09/02/23 04:00 106/63 09/02/23 04:00 36.8 C 09/02/23 03:50 71 23 97 09/02/23 03:40 77 21 98 09/02/23 03:30 78 27 H 94 09/02/23 03:20 68 19 97 09/02/23 03:10 71 18 95 09/02/23 03:00 127/57 L 09/02/23 03:00 71 19 98 09/02/23 02:51 69 19 95 09/02/23 02:40 64 19 98 09/02/23 02:30 71 26 H 94 09/02/23 02:20 70 18 93 09/02/23 02:10 68 17 93 09/02/23 02:00 107/57 L 09/02/23 02:00 65 17 93 09/02/23 01:50 65 21 93 09/02/23 01:40 63 20 95 09/02/23 01:30 68 18 97 09/02/23 01:20 62 27 H 96 09/02/23 01:10 65 19 94 09/02/23 01:00 107/58 L 09/02/23 01:00 71 19 95 09/02/23 00:50 72 23 96 09/02/23 00:40 70 20 97 09/02/23 00:30 71 19 94 09/02/23 00:20 72 26 H 98 09/02/23 00:10 70 17 96 09/02/23 00:00 37.0 C 09/02/23 00:00 112/59 L 09/02/23 00:00 70 21 94 09/02/23 00:00 71 09/01/23 23:50 63 18 95 09/01/23 23:40 66 27 H 94 09/01/23 23:30 69 20 94 09/01/23 23:20 65 20 99 09/01/23 23:10 69 21 97 09/01/23 23:00 69 24 98 09/01/23 23:00 121/58 L 09/01/23 22:50 66 20 93 09/01/23 22:46 114/62 09/01/23 22:46 71 26 H 96 09/01/23 22:40 70 23 95 09/01/23 22:30 74 26 H 98 01/30/24 22:20 65 20 97 09/01/23 22:10 63 20 94 Laboratory Results Cardiac Enzymes 09/01/23 09/01/23 09/02/23 Range/Units 16:01 22:22 05:12 Troponin I High Sens 25.4 H D 137.3 H* D 172.1 H* D (0-20) pg/ml Lipids 09/02/23 Range/Units 05:12 Triglycerides 37 (0-150) mg/dl Cholesterol 126 (0-200) mg/dl HDL Cholesterol 67 mg/dl Cholesterol/HDL Ratio 1.9 (0-5) CBC 09/02/23 Range/Units 05:12 WBC 9.55 (4.8-10.8) K/ul RBC 3.31 L (4.70-6.10) M/uL Hgb 9.5 L (14.0-18.0) g/dl Hct 30.5 L (42.0-52.0) % Plt Count 198 (130-400) K/uL Comprehensive Metabolic Panel 09/02/23 Range/Units 05:12 Sodium 131 L (136-145) mmol/L Potassium 4.5 D (3.5-5.1) mmol/L Chloride 100 (98-107) mmol/L Carbon Dioxide 25 (21-32) mmol/L BUN 22 (6-23) mg/dl Creatinine 1.47 H (0.6-1.4) mg/dl Glucose 109 H (70-99(Fasting)) mg/dl Calcium 9.0 (8.6-10.3) mg/dl Intake and Output 09/01/23 09/02/23 09/02/23 22:59 06:59 14:59 Intake Total 498 / 498 432.5 / 432.5 Output Total 525 / 1725 550 / 1725 Balance -27 / -1227 -550 / -1227 432.5 / 432.5 Intake: IV 498 / 498 82.5 / 82.5 Lidocaine/D5w Drip 4Mg/ml 2,000 498 / 498 mg In 500 ml @ 2 MG/MIN 30 mls /hr IV .[id number] RUBENS Rx#: [id number] Magnesium Sulfate / D5w 1 gm In 82.5 / 82.5 100 ml @ 50 mls/hr IV Q2H RUBENS Rx#:[id number] Oral 350 / 350 Output: Urine 550 / 550 Urine Amount (Catheter) 525 / 1175 Straight 525 / 1175 Other: Weight 138.3 kg Weight Measurement Method Built in [facility] (3) Hypertension Hypertension type: primary hypertension Qualified Code(s): I10 - Essential (primary) hypertension
[2023-09-02] MEDS: ROSUVASTATIN CALCIUM 5 MG TAB PO SCH (12:02)
--- NOTE | 2023-09-02 12:25 | Hospitalist Progress Note ---
Date of Service September 02, 2023 Assessment & Plan (1) Ventricular tachycardia: Plan: Patient presented to the hospital with chest pain. In the ED, patient had recurrent runs of NSVT. Was started on lidocaine infusion. Patient underwent PCI of mid LAD. Echocardiogram shows EF of 30 to 35%; moderate global hypokinesis of left ventricle. Grade 1 diastolic dysfunction On DAPT with aspirin and Plavix. Started on rosuvastatin as well Continue on beta-blockers with metoprolol succinate and losartan. Telemetry monitoring Transfer out of ICU (2) Urinary retention: (3) Prostate cancer: Plan: -History of such, diagnosed March 2023, status post XRT and currently on Zytiga therapy with immunotherapy - -Requires 4 times daily straight cath, is able to urinate small amount of urine when very full -Zytegia currently on hold as recommended by cardiology due to risks of QT prolongation and torsades de points and arrhythmias. His oncologist Dr. Puente was updated (4) Rheumatoid arthritis: Plan: -Patient is on chronic prednisone 5 mg daily, methotrexate 12.5 mg weekly on Fridays, will continue -Chronic, stable (5) Morbid obesity: Plan: -BMI of 39.1, will need to encourage diet and exercise throughout hospital stay DVT PPx:-Lovenox Lines: 2 PIV CODE: Full code FEN/GI: Currently n.p.o. Dispo: Patient admitted for nonsustained ventricular tachycardia, status post LAD stent. Continue to monitor inpatient. Time spent evaluating patient, direct bedside care, chart review, placing orders, interpretation of diagnostic studies, discussion with consultants, patient, and family members, as well as other required patient management activities is 50-minutes Please note the above document was generated using voice recognition software. It may contain grammatical, syntax or spelling errors. Any formal questions or concerns about the content, text or information contained within the body of this dictation should be directly addressed to the provider for clarification Admission and Anticipated Discharge Date Admission Date: September 01, 2023 Subjective Patient seen and examined at bedside. Comfortable; not in distress. Denies fever, chills, chest pain, shortness of breath, abdominal pain or urinary symptoms. No significant overnight events Telemetry shows sinus rhythm with occasional PVCs. No episode of NSVT overnight Review of Systems Review of Systems: All systems reviewed & are unremarkable except as noted in Subjective Physical Exam Physical Exam: Constitutional: WD/WN, vitals as above, NAD, sitting up in bed, pleasant, conversing easily Respiratory: normal respiratory effort, lungs clear to auscultation, no wheeze, rales, rhonchi. Normal insp/exp effort, no accessory muscle use Cardiovascular: RRR, no murmur, no edema Vessels: no JVD or carotid bruit Chest: normal inspection of chest Abdomen: normal bowel sounds, soft, nontender, no hepatosplenomegaly Musculoskeletal: no cyanosis or clubbing, extremities motor strength 5/5 Skin: no rashes, warm and dry normal turgor Neurologic: PERRL, EOMI, accommodation nl, no face palsy, no dysarthria CN's II- XI intact bilaterally and moves all extremities Psychiatric: A+Ox3, euthymic affect Results & Data Results & Data Vital Signs (Past 12 Hours) Vital Signs Temp Pulse Resp BP Pulse Ox 09/02/23 08:00 78 25 H 120/65 95 09/02/23 07:00 69 19 125/53 L 94 09/02/23 05:31 71 21 97 09/02/23 05:20 75 24 98 09/02/23 05:10 81 28 H 95 09/02/23 05:00 71 18 95 09/02/23 04:50 70 18 95 09/02/23 04:41 83 20 96 09/02/23 04:30 84 28 H 95 09/02/23 04:20 70 22 97 09/02/23 04:10 82 19 97 09/02/23 04:00 75 24 96 09/02/23 04:00 106/63 09/02/23 04:00 36.8 C 09/02/23 03:50 71 23 97 09/02/23 03:40 77 21 98 09/02/23 03:30 78 27 H 94 09/02/23 03:20 68 19 97 09/02/23 03:10 71 18 95 09/02/23 03:00 127/57 L 09/02/23 03:00 71 19 98 09/02/23 02:51 69 19 95 09/02/23 02:40 64 19 98 09/02/23 02:30 71 26 H 94 09/02/23 02:20 70 18 93 09/02/23 02:10 68 17 93 09/02/23 02:00 107/57 L 01/31/24 02:00 65 17 93 09/02/23 01:50 65 21 93 09/02/23 01:40 63 20 95 09/02/23 01:30 68 18 97 09/02/23 01:20 62 27 H 96 09/02/23 01:10 65 19 94 09/02/23 01:00 107/58 L 09/02/23 01:00 71 19 95 09/02/23 00:50 72 23 96 09/02/23 00:40 70 20 97 09/02/23 00:30 71 19 94
--- NOTE | 2023-09-02 15:22 | Electrocardiogram Report ---
Test Reason : Blood Pressure : / mmHG Vent. Rate : 070 BPM Atrial Rate : 070 BPM P-R Int : 164 ms QRS Dur : 100 ms QT Int : 434 ms P-R-T Axes : 118 043 065 degrees QTc Int : 468 ms Poor data quality, interpretation may be adversely affected Normal sinus rhythm with sinus arrhythmia ST elevation, consider early repolarization, pericarditis, or injury Abnormal ECG When compared with ECG of 01-SEP-2023 11:12, No significant change was found Confirmed by Teddy Liz ([id number]) on 09/02/2023 3:22:07 PM Referred By: REFERRED SELF Confirmed By:Teddy Liz
[2023-09-02] MEDS: METOPROLOL SUCC 25MG EXT REL TAB PO SCH (19:42)
[2023-09-03 06:04] LABS: Basophils # (auto) 0.03 K/uL (0.00-0.20); Basophils % (auto) 0.4 %; Eosinophils # (auto) 0.41 K/uL (0.00-0.50); Hematocrit (blood only) 31.1 % (42.0-52.0); Hemoglobin 10.2 g/dl (14.0-18.0); Immature Granulocytes # (auto) 0.05 K/uL (0.01-0.20); Immature Granulocytes % (auto) 0.6 %; Lymphocytes # (auto) 0.44 K/uL (1.20-3.40); Lymphocytes % (auto) 5.4 %; Mean Corpuscular Hemoglobin 29.1 pg (25.0-34.0); Mean Corpuscular Hgb Conc 32.8 g/dL (32.0-36.0); Mean Corpuscular Volume 88.9 fL (80.0-100.0); Mean Platelet Volume 10.2 fL (9.4-12.4); Monocytes % (auto) 8.5 %; Neutrophils # (auto) 6.58 K/uL (1.40-6.50); Neutrophils % (auto) 80.1 %; Platelet Count 224 K/uL (130-400); RDW Coefficient of Variation 16.3 % (11.5-14.5); RDW Standard Deviation 51.8 fL (36.4-46.3); White Blood Count 8.21 K/ul (4.8-10.8)
[2023-09-03 06:17] LABS: Albumin Globulin Ratio 1.2 (0.9-2); Albumin Level 3.6 gm/dl (3.4-5.0); BUN Creatinine Ratio 21.8 (10-20); Bilirubin,Total 0.5 mg/dl (0.2-1.0); Calcium 9.3 mg/dl (8.6-10.3); Creatinine Clr Calc Pharmacy 62.8 ml/min; Est GFR (African American) 59.3 ml/min; Est GFR (Non-African American) 51.2 ml/min; Magnesium 2.4 mg/dl (1.7-2.4); Phosphorus 3.4 mg/dl (2.5-4.9); Potassium 4.2 mmol/L (3.5-5.1); Total Protein 6.6 gm/dl (6.0-8.3)
[2023-09-03] MEDS: predniSONE 5 MG TAB PO SCH (08:27)
[2023-09-03] MEDS: ENOXAPARIN INJ 40 MG/0.4 ML SYR SQ SCH (08:27)
[2023-09-03] MEDS: ROSUVASTATIN CALCIUM 5 MG TAB PO SCH (08:27)
[2023-09-03] MEDS: MAGNESIUM OXIDE 400 MG TAB PO SCH (08:27)
[2023-09-03] MEDS: CLOPIDOGREL BISULFATE 75 MG TAB PO SCH (08:27)
[2023-09-03] MEDS: TAMSULOSIN HCL 0.4 MG CAP PO SCH (08:27)
[2023-09-03] MEDS: METOPROLOL SUCC 25MG EXT REL TAB PO SCH (08:27)
[2023-09-03] MEDS: ASPIRIN 81 MG ECTAB PO SCH (08:27)
[2023-09-03] MEDS ORDERED: VALSARTAN/SACUBITRIL 26/24MG TAB PO SCH (10:45)
--- NOTE | 2023-09-03 12:20 | Hospitalist Progress Note ---
Date of Service September 03, 2023 Assessment & Plan (1) Ventricular tachycardia: Plan: Patient presented to the hospital with chest pain. In the ED, patient had recurrent runs of NSVT. Was started on lidocaine infusion. Patient underwent PCI of mid LAD. Echocardiogram shows EF of 30 to 35%; moderate global hypokinesis of left ventricle. Grade 1 diastolic dysfunction On DAPT with aspirin and Plavix. Started on rosuvastatin as well Continue on beta-blockers with metoprolol succinate and losartan. Telemetry monitoring Transfer out of ICU (2) Urinary retention: (3) Prostate cancer: Plan: -History of such, diagnosed March 2023, status post XRT and currently on Zytiga therapy with immunotherapy - -Requires 4 times daily straight cath, is able to urinate small amount of urine when very full -Zytegia currently on hold as recommended by cardiology due to risks of QT prolongation and torsades de points and arrhythmias. His oncologist Dr. Puente was updated (4) Rheumatoid arthritis: Plan: -Patient is on chronic prednisone 5 mg daily, methotrexate 12.5 mg weekly on Fridays, will continue -Chronic, stable (5) Morbid obesity: Plan: -BMI of 39.1, will need to encourage diet and exercise throughout hospital stay DVT PPx:-Lovenox Lines: 2 PIV CODE: Full code FEN/GI: Currently n.p.o. Dispo: Patient admitted for nonsustained ventricular tachycardia, status post LAD stent. Continue to monitor inpatient. Time spent evaluating patient, direct bedside care, chart review, placing orders, interpretation of diagnostic studies, discussion with consultants, patient, and family members, as well as other required patient management activities is 50-minutes Please note the above document was generated using voice recognition software. It may contain grammatical, syntax or spelling errors. Any formal questions or concerns about the content, text or information contained within the body of this dictation should be directly addressed to the provider for clarification Admission and Anticipated Discharge Date Admission Date: September 01, 2023 Physical Exam Physical Exam: Constitutional: WD/WN, vitals as above, NAD, sitting up in bed, pleasant, conversing easily Respiratory: normal respiratory effort, lungs clear to auscultation, no wheeze, rales, rhonchi. Normal insp/exp effort, no accessory muscle use Cardiovascular: RRR, no murmur, no edema Vessels: no JVD or carotid bruit Chest: normal inspection of chest Abdomen: normal bowel sounds, soft, nontender, no hepatosplenomegaly Musculoskeletal: no cyanosis or clubbing, extremities motor strength 5/5 Skin: no rashes, warm and dry normal turgor Neurologic: PERRL, EOMI, accommodation nl, no face palsy, no dysarthria CN's II- XI intact bilaterally and moves all extremities Psychiatric: A+Ox3, euthymic affect Results & Data Results & Data Vital Signs (Past 12 Hours) Vital Signs Temp Pulse Pulse Resp BP Pulse Ox O2 Del Method 09/03/23 11:19 36.6 C 72 18 151/84 H 96 Room Air 09/03/23 10:03 74 09/03/23 07:42 36.5 C 68 18 145/68 H 95 Room Air 09/03/23 02:31 36.5 C 75 16 146/91 H 99 Room Air
--- NOTE | 2023-09-03 12:36 | Discharge Summary ---
Date of Service September 03, 2023 Admission HPI Per Admitting Provider This is a 78-year-old male with PMHx of prostate cancer diagnosed March 2023, metastatic with lymph node involvement close to the bladder, currently on Zytiga therapy, rheumatoid arthritis on chronic prednisone and weekly methotrexate, who presents to the hospital with acute onset crushing chest pain. He reports being in his normal state of health yesterday throughout the day, ate normally and went to bed. He he was up around 1 AM as typically happens, had a cup of coffee and ate a piece of toast. He reports that this is not decaffeinated and is fairly normal for him to do. He will then have 2 more cups around 5am when he is awake for his morning medications. He describes having a crushing chest pain 3/10 which intensified from 1 AM to 2:30 AM and at its worst was 9/10. Patient describes feeling clammy, had difficulty taking deep breaths, and that pain moved into his left shoulder blade and up into his neck. He lives at home with his daughter, who called her brother, Kenneth who is present at bedside supports the history and brought him to the hospital overnight. He notes that he typically straight caths 4 times daily for history of urinary retention since having prostate cancer, denies any recent UTIs or urinary complaints. He does feel his bladder filling and notes that he is able to move a small amount of urine but then needs to straight cath to completely empty the bladder. Social Hx: Stopped smoking x 40 years, 1 ppd in 1997, no alcohol use, no ilicit drug use Family Hx: Father - from stomach ulceration Mother - Ulcerations in stomach, GERD, rheumatoid arthritis, lived until 93 Sister: Immunodeficiency issues, osteoarthrtitis Sister:Eye problems Surgical Hx: Tonsillectomy age 5 Admission Exam Per Admitting Provider General: awake, alert, no apparent distress, obese white male, BMI 39.1 Head: Normocephalic, atraumatic ENT: PERRL, EOMI, no pharyngeal exudate, mucous membranes moist Chest: Clear to auscultation, on room air 96% throughout visit, no adventitious breath sounds Cardiac: V. tach with heart rate in 118-120s at rest, no murmur, no JVD, normal peripheral pulses, good capillary refill Abdominal: NABS x 4 quadrants, soft, nondistended, nontender to palpation, no rebound or guarding Extremities: Normal inspection, 1+ peripheral edema BLE, no erythema, calfs nontender to palpation Psych: Normal mood and affect Neuro: AAO x 3, strength intact bilaterally and rated 5/5, no motor deficits, speech is clear, no peripheral sensory deficits Principal Diagnosis Constitutional: No fever, sweats or chills Eyes: No diplopia, no worsening or blurred vision ENT: normal hearing, no trouble swallowing Respiratory: No cough, sputum, dyspnea at rest or on exertion Cardiovascular: As per HPI Abdomen: No pain, nausea, vomiting, diarrhea or constipation Musculoskeletal: No joint pain, calf pain, swelling Neurologic: No weakness, numbness/tingling, or balance problems, + walks with use of a cane Psychiatric: No anxiety or depression Skin: No rash or itch Discharge Exam Constitutional: WD/WN, vitals as above, NAD, sitting up in bed, pleasant, conversing easily Respiratory: normal respiratory effort, lungs clear to auscultation, no wheeze, rales, rhonchi. Normal insp/exp effort, no accessory muscle use Cardiovascular: RRR, no murmur, no edema Vessels: no JVD or carotid bruit Chest: normal inspection of chest Abdomen: normal bowel sounds, soft, nontender, no hepatosplenomegaly Musculoskeletal: no cyanosis or clubbing, extremities motor strength 5/5 Skin: no rashes, warm and dry normal turgor Neurologic: PERRL, EOMI, accommodation nl, no face palsy, no dysarthria CN's II- XI intact bilaterally and moves all extremities Psychiatric: A+Ox3, euthymic affect Discharge Data Allergies Allergy/AdvReac Type Severity Reaction Status Date / Time Sulfa (Sulfonamide Allergy Unknown UNKNOWN Verified 09/01/23 05:04 Antibiotics) [id number] Reductase AdvReac Intermediate CONSTIPATIO Verified 09/01/23 05:04 Inhibitor N [Mryxsob-Lkh-Nnm Reductase Inhibitor] Consultations 09/01/23 07:29 Consult Cardiology Stat ED Decision to Admit Stat 09/01/23 07:50 Consult After School Tutor Routine 09/01/23 09:57 Consult Cardiology Routine Procedures Performed Operation Date: 09/01/23 09:30 Actual Procedures p Cineradiography w/Routine Exam - Vineet Alvarenga MD Ordered Studies 09/01/23 05:23 CT angio chest dissec wo/w con Stat 09/01/23 08:19 CL Cath Imgs for PACS use only Stat Hospital Course (1) Ventricular tachycardia: t. (2) Urinary retention: (3) Prostate cancer: (4) Rheumatoid arthritis: (5) Morbid obesity: Plan Patient presented to the hospital with chest pain. In the ED, patient had recurrent runs of NSVT. Was started on lidocaine infusion. Patient underwent cardiac cath with PCI of mid LAD; lidocaine infusion was stopped. Echocardiogram shows EF of 30 to 35%; moderate global hypokinesis of left ventricle. Grade 1 diastolic dysfunction Patient is started on DAPT with aspirin and Plavix. Also started on rosuvastatin, Entresto and beta-corwin. Patient was started on LifeVest at discharge Zytiga was kept on hold as it was thought to contribute to heart failure, cardiac arrhythmias as per cardiology. Patient to follow-up with PCP, oncology and cardiology as outpatient. Please note the above document was generated using voice recognition software. It may contain grammatical, syntax or spelling errors. Any formal questions or concerns about the content, text or information contained within the body of this dictation should be directly addressed to the provider for clarification Total Time Total Time Spent Total Time Spent (In Minutes): 35 Total Time Includes: Examination of the Patient, Discharge Planning, Medication Reconciliation, Communication With Other Providers and Other Discharge Plan Discharge Items Patient Disposition: Home - Self-Care Reason For Visit: CHEST PAIN Discharge Diagnosis: Unstable angina status post LAD stent Activity: Resume your previous activity Non-emergency contact: Primary Care Provider Call non-emergency contact if: you have any medication questions and your symptoms worsen Follow-up/Referrals: Dmitri Greenfield DO [Telephone Information Clerk] - (The Cardiology office will contact you for a follow up appointment.) Rhianna Huitron DO [Primary Care Provider] - (Date & Time 09/08/2023 1:40 PM Provider Romulo Bond MD [facility] ) Diet: Regular Addtl Attending Provider Instructions: You were admitted to the hospital with chest pain. You are found to have blockage in one of your heart vessels for which stent was placed. You are prescribed following medication: 1) Take aspirin 81 mg once a day(morning) 2) Take Plavix 75 mg once a day(morning) 3) Take metoprolol 50 mg twice a day(morning and night). 4) Take rosuvastatin 5 mg once a day(morning) 5) Take Entresto 1 tablet twice a day(morning and night) 6) Mag oxide 400 mg twice a day Stop taking losartan as it has been replaced by Entresto. Stop taking Zytiga as it can contribute to irregular heart rhythm and low heart function. Please follow-up with Dr. Puente from oncology to discuss alternatives. An appointment with your primary care doctor has been set up. Please follow-up. Follow-up with cardiology as outpatient. Pending Studies at Discharge: No Stand-Alone Forms: My [facility] [employer], Smoking Cessation Medications and DC Order Prescriptions: New clopidogrel 75 mg Tablet 75 mg PO QAM Qty: 30 0RF rosuvastatin 5 mg Tablet 5 mg PO QAM Qty: 30 0RF Entresto 24-26 mg Tablet 1 tab PO BID Qty: 60 0RF acetaminophen 325 mg Tablet 650 mg PO Q4H PRN (Reason: fever or pain) Qty: 60 0RF aspirin 81 mg Tablet,Delayed Release (Dr/Ec) 81 mg PO QAM Qty: 30 0RF magnesium oxide 400 mg (241.3 mg magnesium) Tablet 400 mg PO BID Qty: 60 0RF metoprolol succinate 50 mg Tablet Extended Release 24 Hr 50 mg PO BID Qty: 60 0RF Continued tamsulosin 0.4 mg capsule 0.4 mg PO DAILY prednisone 5 mg tablet 5 mg PO DAILY folic acid 1 mg tablet 1 mg PO DAILY methotrexate sodium 2.5 mg tablet 12.5 mg PO WK Rx Instructions: take 5 tablet once a week on Thursday Discontinued aspirin 81 mg tablet,chewable 81 mg PO DAILY losartan 25 mg tablet 12.5 mg PO DAILY abiraterone [Zytiga] 250 mg tablet 1,000 mg PO DAILY Rx Instructions: must be taken on empty stomach, at least 1 hr before or 2 hrs after a meal/food Discharge Orders: Discharge Order (Routine); Ordered 09/03/23 Ordered By: Timoteo Erickson Admission Data Admit Date/Time: 09/01/23 07:50 Attending Provider: Timoteo Erickson Admit Provider: Vishal Gallegos Primary Care Provider: Rhianna Huitron Other Providers: Dmitri Greenfield; Vishal Gallegos; Rosendo Bustos
--- NOTE | 2023-09-03 13:42 | Cardiology Progress Note ---
Date of Service September 03, 2023 Assessment & Plan (1) Unstable angina pectoris: (2) NSVT (nonsustained ventricular tachycardia): (3) Hypertension: (4) Left ventricular systolic dysfunction: (5) Prostate cancer: Plan 78-year-old male (1) Unstable angina pectoris: Diagnostic cardiac catheterization performed 09/01/2023 send noted hazy segment of the mid LAD which had been further investigated with intravascular ultrasound revealing 75% stenosis with features of high risk of plaque. Patient therefore underwent PCI, single drug-eluting stent to the mid LAD. Residual 60% proximal, 40% distal right coronary artery stenosis noted as well as 30% proximal mid circumflex, and 40 to 50% distal circumflex lesions, for which medical management recommended LDL cholesterol well-controlled at 52 mg/dL at baseline, however given the findings of cardiac catheterization recommend initiation of rosuvastatin. Patient has had past intolerance to statin therapy with atypical side effect of constipation. Will discuss with him further. As alternative, will consider ezetimibe however given his acute presentation, will proceed with statin therapy for now. Continue aspirin, clopidogrel. (2) NSVT (nonsustained ventricular tachycardia): Patient presented with frequent runs of nonsustained ventricular tachycardia. Initially had been on a lidocaine infusion. Postcardiac catheterization transition to metoprolol and his rhythm has been stable. Change metoprolol succinate to 50 mg BID at discharge. 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 No syncope. The degree of left ventricular systolic dysfunction seems out of proportion to his degree of coronary heart disease. Hypertension or treatment with Zytiga are possible etiologies. Will plan on medication therapy. Bridge therapy with a Zoll Life vest pending reassessment for left ventricular systolic function by echocardiogram 3 months post stent and medication therapy. (5) Prostate cancer: Patient had on therapy with Zytiga, an androgen biosynthesis inhibitor for treatment of prostate carcinoma. Per review of the literature, this agent can cause hypertension, hypokalemia, QT prolongation, torsades de pointes, and cardiac failure and therefore may be an implicating factor in his presentation. This medication has been held and likely will not be reinitiated. Will need to have patient follow up with oncology / urology for alternative therapy as outpatient. Disposition: Life Vest approved by insurance and fitted. Pt stable for discharge on the following medications ASA 81 mg daily (life long therapy) Clopidogrel for 6-12 months Magnesium oxide 400 mg BID Entresto 26/24 mg BID (replaces prior to hospital losartan) Metoprolol succinate 50 mg BID Rosuvastatin 5 mg daily Flomax 0.4 mg daily Prednisone 5 mg daily Outpt follow up with [facility] Aurelio Greenfield DO Admission and Anticipated Discharge Date Admission Date: September 01, 2023 Subjective Patient seen in cardiology follow up. Son, Kenneth, at the bedside. Telemetry reveals SR in the 70s. PVCs noted that have increased in frequency since reduction in beta corwin dose. Episodes of ventricular trigeminy noted overnight. Pt denies chest pain or shortness of breath. No subjective palpitations. Physical Exam Constitutional: WD/WN, vitals as above + obese Eyes: PERRL, conjunctivae normal, anicteric sclerae Respiratory: normal respiratory effort, lungs clear to auscultation Cardiovascular: Rate/Rhythm: + tachycardic Heart Sounds: no murmur Vessels: no JVD Gastrointestinal (Abdomen): normal bowel sounds, soft, nontender, no hepatosplenomegaly Neurologic: PERRL, EOMI, accommodation nl, no face palsy, no dysarthria Results & Data Vital Signs (Past 12 Hours) Vital Signs Temp Pulse Pulse Resp BP Pulse Ox O2 Del Method 09/03/23 11:19 36.6 C 72 18 151/84 H 96 Room Air 09/03/23 10:03 74 09/03/23 07:42 36.5 C 68 18 145/68 H 95 Room Air 09/03/23 02:31 36.5 C 75 16 146/91 H 99 Room Air Laboratory Results Cardiac Enzymes 09/03/23 Range/Units 05:29 AST 13 (13-39) U/L CBC 09/03/23 Range/Units 05:29 WBC 8.21 (4.8-10.8) K/ul RBC 3.50 L (4.70-6.10) M/uL Hgb 10.2 L (14.0-18.0) g/dl Hct 31.1 L (42.0-52.0) % Plt Count 224 (130-400) K/uL Neut # (Auto) 6.58 H (1.40-6.50) K/uL Lymph # (Auto) 0.44 L (1.20-3.40) K/uL Cedar # (Auto) 0.70 H (0.11-0.59) K/uL Eos # (Auto) 0.41 (0.00-0.50) K/uL Baso # (Auto) 0.03 (0.00-0.20) K/uL Comprehensive Metabolic Panel 09/03/23 Range/Units 05:29 Sodium 133 L (136-145) mmol/L Potassium 4.2 (3.5-5.1) mmol/L Chloride 100 (98-107) mmol/L Carbon Dioxide 24 (21-32) mmol/L BUN 29 H (6-23) mg/dl Creatinine 1.33 (0.6-1.4) mg/dl Glucose 106 H (70-99(Fasting)) mg/dl Calcium 9.3 (8.6-10.3) mg/dl AST 13 (13-39) U/L ALT 12 (7-52) U/L Alkaline Phosphatase 72 (34-104) U/L Total Protein 6.6 (6.0-8.3) gm/dl Albumin 3.6 (3.4-5.0) gm/dl (3) Hypertension Hypertension type: primary hypertension Qualified Code(s): I10 - Essential (primary) hypertension
[2023-09-03] MEDS ORDERED: METOPROLOL SUCC 50MG EXT REL TAB PO SCH (21:00)
== END 2023-09-03 14:23 | disposition home or self-care (01) | DRG 322 ==
LOC: ED 04:36 → SUATTDRO 07:50 → 1E 07:50 → 2S 09-02 19:15

== ENCOUNTER 2024-03-31 17:11 | Inpatient (IN) ==
--- NOTE | 2024-03-31 17:45 | Emergency Department Note ---
Impression & Plan Generalized weakness, Acute cystitis ED Provider Note HISTORY OF PRESENT ILLNESS: Patient is a 79-year-old male presenting with generalized weakness. Patient reports progressively worsening weakness over the last 2 weeks at home. Reports he normally ambulates with a cane but has been walking with a walker today. Reports that while walking with a walker today, his legs gave out and he fell backwards and landed on his buttock. He denies striking his head. Denies any chest pain or shortness of breath. He is currently complaining of bilateral groin pain. He is on Plavix. He states that he is also constipated. Reports that he only had a small bowel movement today. He is still passing flatus. He denies any significant abdominal pain. He denies any numbness or tingling or weakness in his extremities. Reports that he is not doing well at home secondary to his weakness. Denies any dysuria or hematuria. Denies any fevers. ROS: as above PHYSICAL EXAM: Constitutional: Patient appears in no acute distress. HENT: Head: Normocephalic and atraumatic. Eyes: EOMI, PERRL Mouth/Throat: Mucous membranes moist. Neck: Trachea midline. Neck supple. Cardiovascular: RRR, No murmurs, rubs or gallops. Intact distal pulses. Pulmonary/Chest: No respiratory distress. Breath sounds clear and equal bilaterally. No wheezes or rales. Abdominal: Abdomen soft, no tenderness, rebound or guarding. Back: No midline spinal tenderness, no paraspinal tenderness, no CVA tenderness. Patient is able to straight leg raise bilaterally. Musculoskeletal: No edema, tenderness or deformity noted. Skin: Warm and dry. No rash, erythema, pallor or cyanosis Psychiatric: Appropriate mood and affect for situation. Neurological: Alert and keenly responsive. CN II-XII grossly intact, moving all extremities equally and fully. MDM: - Vitals signs showed tachycardia - History obtained via patient. History as above. - Chronic conditions affecting care: prostate cancer; rheumatoid arthritis; HTN - Differential diagnoses include, but are not limited to: UTI; pneumonia; CVA; intracranial hemorrhage; dehydration; viral syndrome - Order placed for continuous cardiac monitoring. At this time, monitor showed rate of 93 bpm with normal sinus rhythm, per my interpretation. - External medical records reviewed. Discharge summary dated 09/03/2023 was reviewed. Patient was admitted at that time for ventricular tachycardia. He had recurrent runs of nonsustained ventricular tachycardia and started on a lidocaine infusion. He underwent cardiac catheterization with stent placement to his mid LAD. He has an EF of 30 to 35% on echocardiogram postprocedure. - EKG interpreted by myself showed normal sinus rhythm. Rate 88 bpm. QT 398. No acute ischemic changes. Noted to have some PVCs. - Laboratory workup interpreted by myself showed leukocytosis (WBC 14.42); anemia (Hgb 10.1); normal INR; hyponatremia (Na 131); normal lactate; hypocalcemia (Ca 8.5); normal troponin; normal liver function; normal TSH - Viral respiratory panel negative - CXR negative for pneumonia, per my interpretation - CT head wo contrast negative for acute pathology - CT abdomen/pelvis wo contrast shows constipation but no bowel obstruction. Noted to have bladder wall thickening with surrounding fat stranding concerning for cystitis. - Given patient's CT findings and leukocytosis, and given patient's history of straight cathing for urinalysis, 2g IV rocephin ordered for empiric treatment of cystitis. UA obtained by nursing staff via straight cath - Discussion was had with outsole caser about patient's case and need for admission - Hospitalist consulted for admission - [facility] for further evaluation and management. ASSESSMENT AND PLAN: Diagnosis: Generalized weakness; acute cystitis Plan: admit Past Med/Surg History Problem List (Updated 03/31/24 @ 20:13 by Daniela Balderrama MD) Acute cystitis (Acute) Generalized weakness (Acute) Substernal chest pain (Acute) Ventricular tachycardia (Acute) Coronary artery disease NSVT (nonsustained ventricular tachycardia) Unstable angina pectoris Rheumatoid arthritis Hypertension Urinary retention Morbid obesity Ventricular tachycardia Prostate cancer (Chronic 03/16/23) Arthritis of knee, left Medical History (Updated 03/31/24 @ 20:13 by Daniela Balderrama MD) Left ventricular systolic dysfunction Degeneration of lumbosacral intervertebral disc Impaired fasting glucose Macular degeneration Fuchs' corneal dystrophy Frequent UTI Surgical History H/O colonoscopy History of prostate biopsy Family History Father Heart disease Stomach ulcer Mother Rheumatoid arthritis Social History Smoking Status: Unknown if ever smoked Age Started Using Tobacco: 19; packs per day: 1; Second Hand Exposure: Yes; Do You Dip or Chew Tobacco: No; Hx Alcohol Use: No Hx Substance Use: No Preferred Language: Surinamese Communication Ability: Effective Visual Impairment: No Limitations Hearing Ability: Normal Floral Designer Salesperson Required: No Beliefs That Will Affect Care: None marital status: / Current Living Situation: Family current occupational status: retired current occupation: PA [employer] Feels Safe at Home: Yes Diet: regular during the past year weight has: remained stable Assistive Devices: Cane Allergies Allergies Allergy/AdvReac Type Severity Reaction Status Date / Time pollen extracts Allergy Mild WATERY Verified 03/31/24 17:40 EYES, SNEEZING Sulfa (Sulfonamide Allergy Unknown CAN'T Verified 03/31/24 17:40 Antibiotics) REMEMBER KUN Inhibitors AdvReac Intermediate Cough Verified 03/31/24 17:40 alendronate sodium AdvReac Intermediate MUSCLE & Verified 03/31/24 17:40 [From Fosamax] JOINT PAIN, HEARTBURN, CONSTIPATION misoprostol AdvReac Intermediate Diarrhea Verified 03/31/24 17:40 Hjaoths-UYX-PhE Reductase AdvReac Intermediate CONSTIPATION/UPSET Verified 03/31/24 17:40 Inhibitor STOMACH [Anvqfxc-Nbh-Icl Reductase Inhibitor] Home Meds Home Medications Medication Instructions Recorded Confirmed folic acid 1 mg tablet 1 mg PO DAILY 04/04/20 03/31/24 methotrexate sodium 2.5 mg tablet 12.5 mg PO WK 04/15/23 03/31/24 tamsulosin 0.4 mg capsule 0.4 mg PO DAILY 04/15/23 03/31/24 losartan 25 mg tablet 25 mg PO QAM 03/31/24 03/31/24 metoprolol succinate 50 mg 25 mg PO BID 03/31/24 03/31/24 tablet,extended release 24 hr Previous Rx's Medication Instructions Recorded acetaminophen 325 mg tablet 650 mg (2 x 325 mg) PO Q4H PRN 09/03/23 fever or pain #60 tabs aspirin 81 mg tablet,delayed 81 mg PO QAM #30 tabs 09/03/23 release clopidogrel 75 mg tablet 75 mg PO QAM #30 tabs 02/01/24 Results & Data (ED) Vital Signs Vital Signs - 24 hr 03/31/24 17:25 03/31/24 17:25 03/31/24 17:30 Temperature 36.8 C Temperature Source Oral Pulse Rate 94 H 94 H Respiratory Rate 18 18 Respiratory Effort / Characteristics Non-Labored Spontaneous Respiratory Depth Normal Blood Pressure 126/90 Blood Pressure Mean 102 Pulse Oximetry 97 97 97 Oxygen Delivery Method Room Air Room Air Room Air Sepsis Recent Fever Within 48 Hours No Sepsis New/Unexplained Change in Mental Status N/A Sepsis Action Taken by Nursing No Action Required 03/31/24 17:50 Temperature Temperature Source Pulse Rate 93 H Respiratory Rate Respiratory Effort / Characteristics Respiratory Depth Blood Pressure Blood Pressure Mean Pulse Oximetry Oxygen Delivery Method Sepsis Recent Fever Within 48 Hours Sepsis New/Unexplained Change in Mental Status Sepsis Action Taken by Nursing Laboratory Data 03/31/24 17:00 03/31/24 17:00 Lab Results 03/31/24 03/31/24 Range/Units 17:00 17:40 WBC 14.42 H (4.8-10.8) K/ul RBC 3.74 L (4.70-6.10) M/uL Hgb 10.1 L (14.0-18.0) g/dl Hct 32.3 L (42.0-52.0) % MCV 86.4 (80.0-100.0) fL MCH 27.0 (25.0-34.0) pg MCHC 31.3 L (32.0-36.0) g/dL RDW Std Deviation 49.5 H (36.4-46.3) fL RDW Coeff of Jenny 16.0 H (11.5-14.5) % Plt Count 356 (130-400) K/uL MPV 9.7 (9.4-12.4) fL Immature Gran % (Auto) 0.7 % Neut % (Auto) 86.6 % Lymph % (Auto) 4.4 % Mora % (Auto) 7.5 % Eos % (Auto) 0.6 % Baso % (Auto) 0.2 % Neut # (Auto) 12.48 H (1.40-6.50) K/uL Lymph # (Auto) 0.64 L (1.20-3.40) K/uL Mora # (Auto) 1.08 H (0.11-0.59) K/uL Eos # (Auto) 0.09 (0.00-0.50) K/uL Baso # (Auto) 0.03 (0.00-0.20) K/uL Immature Gran # (Auto) 0.10 (0.01-0.20) K/uL PT 12.2 H (9.0-12.0) Seconds INR 1.1 (0.9-1.1) Sodium 131 L (136-145) mmol/L Potassium 4.0 (3.5-5.1) mmol/L Chloride 95 L (98-107) mmol/L Carbon Dioxide 27 (21-32) mmol/L Anion Gap 9 (3-11) BUN 15 (6-23) mg/dl Creatinine 1.14 (0.6-1.4) mg/dl Est Cr Clr Drug Dosing 76.2 ml/min Est GFR ( Amer) 71.0 ml/min Est GFR (Non-Af Amer) 61.3 ml/min BUN/Creatinine Ratio 13.2 (10-20) Glucose 157 H (70-99(Fasting)) mg/dl Lactate 1.4 (0.4-2.0) mmol/L Calcium 8.5 L (8.6-10.3) mg/dl Magnesium 2.1 (1.7-2.4) mg/dl Total Bilirubin 0.5 (0.2-1.0) mg/dl AST 13 (13-39) U/L ALT 11 (7-52) U/L Alkaline Phosphatase 94 (34-104) U/L Troponin I High Sens 14.8 (0-20) pg/ml Total Protein 6.8 (6.0-8.3) gm/dl Albumin 3.0 L (3.4-5.0) gm/dl Globulin 3.8 (2.5-4.0) gm/dl Albumin/Globulin Ratio 0.8 L (0.9-2) TSH 3.794 (0.300-4.500) uIu/ml Adenovirus (PCR) Not Detected (NotDetected) B. pertussis DNA (PCR) Not Detected (NotDetected) B.parapertussis DNA PCR Not Detected (NotDetected) C. pneumoniae DNA (PCR) Not Detected (NotDetected) Coronavirus OC43 (PCR) Not Detected (NotDetected) Coronavirus HKU1 (PCR) Not Detected (NotDetected) Coronavirus 229E (PCR) Not Detected (NotDetected) SARS-CoV-2 (PCR) Not Detected (NotDetected) Coronavirus NL63 (PCR) Not Detected (NotDetected) Human Metapneumovir PCR Not Detected (NotDetected) Influenza Type A (PCR) Not Detected (NotDetected) Influenza Type B (PCR) Not Detected (NotDetected) M. pneumoniae (PCR) Not Detected (NotDetected) Parainfluenza 1 (PCR) Not Detected (NotDetected) Parainfluenza 2 (PCR) Not Detected (NotDetected) Parainfluenza 3 (PCR) Not Detected (NotDetected) Parainfluenza 4 (PCR) Not Detected (NotDetected) RSV (PCR) Not Detected (NotDetected) Entero/Rhino (PCR) Not Detected (NotDetected) Administered Medications Sodium Chloride (Nss) 500 mls @ 999 mls/hr IV .Q31M ONE Stop: 03/31/24 20:28 Last Admin: 03/31/24 20:11 Dose: 999 mls/hr Documented By: IDD Imaging Data Radiologist's Impression: Abdomen/Pelvis CT 03/31/24 17:27 Exam(s): CT ABDOMEN + PELVIS Without Contrast EXAM: CT Abdomen and Pelvis Without Intravenous Contrast CLINICAL HISTORY: Reason for exam: constipation; groin pain. TECHNIQUE: Axial computed tomography images of the abdomen and pelvis without intravenous contrast. CTDI is 28.14 mGy and DLP is 1626.47 mGy-cm. Automated exposure control was utilized for the study. A dose lowering technique was utilized adhering to the principles of ALARA. COMPARISON: None FINDINGS: Lung bases: Mild dependent atelectasis bilaterally. Heart: Mild cardiomegaly. ABDOMEN: Liver: Small calcified granulomas in the liver. Gallbladder and bile ducts: Unremarkable. No calcified stones. No ductal dilation. Pancreas: Unremarkable. No ductal dilation. Spleen: Unremarkable. No splenomegaly. Adrenals: Unremarkable. No mass. Kidneys and ureters: Nonspecific mild bilateral perinephric fat stranding. No hydronephrosis or stone. Stomach and bowel: Large amount of stool in colon. No small bowel obstruction. Evaluation of the stomach is limited by underdistention. Small duodenal diverticulum. Diverticulosis without evidence of diverticulitis. PELVIS: Appendix: Normal appendix. Bladder: Bladder wall thickening and surrounding fat stranding, raising concern for cystitis. Please correlate with urinalysis. Superior bladder diverticulum. No stones. Reproductive: Mild calcification in the prostate. ABDOMEN and PELVIS: Intraperitoneal space: Unremarkable. No free air. No significant fluid collection. Bones/joints: Degenerative changes of the spine. No acute fracture. No dislocation. Soft tissues: Small fat-containing umbilical hernia. Vasculature: Phleboliths in the pelvis. Atherosclerotic changes of the vasculature. No abdominal aortic aneurysm. Lymph nodes: Calcified right hilar lymph nodes. IMPRESSION: 1. Large amount of stool in colon. No small bowel obstruction. 2. Bladder wall thickening and surrounding fat stranding, raising concern for cystitis. Please correlate with urinalysis. Electronically signed by: Carly Bryant M.D. 03/31/24 20:[address] 03/31/24 17:27 Exam(s): CT HEAD Without Contrast EXAM: CT Head Without Intravenous Contrast CLINICAL HISTORY: Reason for exam: weakness. TECHNIQUE: Axial computed tomography images of the head/brain without intravenous contrast. CTDI is 16.82 mGy and DLP is 999.52 mGy-cm. Automated exposure control was utilized for the study. A dose lowering technique was utilized adhering to the principles of ALARA. COMPARISON: None FINDINGS: Brain: No acute infarct or hemorrhage identified. No extra-axial fluid collection. No mass effect or midline shift. Scattered areas of hypoattenuation in the supratentorial white matter likely represent chronic small vessel ischemic changes. 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 Ventricles and sulci: Prominence of the ventricles and sulci is likely secondary to cerebral volume loss. Bones: Normal. No bony lesion or acute fracture. Subcutaneous tissues: Normal. Sinuses: Normal. No air-fluid levels or mucosal thickening. Mastoid air cells: Normal. Orbits: Grossly unremarkable. Other: Atherosclerotic calcifications in the intracranial vasculature. IMPRESSION: 1. No acute intracranial abnormality. 2. Chronic small vessel ischemic changes and cerebral volume loss. Electronically signed by: Carly Bryant M.D. 03/31/24 20:09 PM Discharge Plan Visit Data Chief Complaint: Weakness ED Provider: Daniela Balderrama Discharge Problem: Generalized weakness, Acute cystitis Forms Stand Alone Forms: My [facility] Prescriptions Prescriptions: No Action tamsulosin 0.4 mg capsule 0.4 mg PO DAILY folic acid 1 mg tablet 1 mg PO DAILY methotrexate sodium 2.5 mg tablet 12.5 mg PO WK Rx Instructions: take 5 tablet once a week on Thursday clopidogrel 75 mg Tablet 75 mg PO QAM Qty: 30 0RF acetaminophen 325 mg Tablet 650 mg PO Q4H PRN (Reason: fever or pain) Qty: 60 0RF aspirin 81 mg Tablet,Delayed Release (Dr/Ec) 81 mg PO QAM Qty: 30 0RF losartan 25 mg tablet 25 mg PO QAM metoprolol succinate 50 mg tablet extended release 24 hr 25 mg PO BID Referrals Referrals: Rhianna Huitron DO [Primary Care Provider] -
[2024-03-31 18:40] LABS: Adenovirus PCR Not Detected (NotDetected); Bordetella parapertussis PCR Not Detected (NotDetected); Bordetella pertussis PCR Not Detected (NotDetected); Chlamydia pneumoniae PCR Not Detected (NotDetected); Coronavirus 229E PCR Not Detected (NotDetected); Coronavirus CoV-2 (COVID19)PCR Not Detected (NotDetected); Coronavirus HKU1 PCR Not Detected (NotDetected); Coronavirus NL63 PCR Not Detected (NotDetected); Coronavirus OC43PCR Not Detected (NotDetected); Human Metapneumovirus PCR Not Detected (NotDetected); Influenza A PCR Not Detected (NotDetected); Influenza B PCR Not Detected (NotDetected); Mycoplasma pneumoniae PCR Not Detected (NotDetected); Parainfluenza Virus 1 PCR Not Detected (NotDetected); Parainfluenza Virus 2 PCR Not Detected (NotDetected); Parainfluenza Virus 3 PCR Not Detected (NotDetected); Parainfluenza Virus 4 PCR Not Detected (NotDetected); Respiratory Syncytial VirusPCR Not Detected (NotDetected); Rhinovirus/Enterovirus PCR Not Detected (NotDetected)
[2024-03-31 18:42] LABS: Basophils # (auto) 0.03 K/uL (0.00-0.20); Basophils % (auto) 0.2 %; Eosinophils # (auto) 0.09 K/uL (0.00-0.50); Eosinophils % (auto) 0.6 %; Hematocrit (blood only) 32.3 % (42.0-52.0); Hemoglobin 10.1 g/dl (14.0-18.0); Immature Granulocytes % (auto) 0.7 %; Lymphocytes # (auto) 0.64 K/uL (1.20-3.40); Lymphocytes % (auto) 4.4 %; Mean Corpuscular Hgb Conc 31.3 g/dL (32.0-36.0); Mean Corpuscular Volume 86.4 fL (80.0-100.0); Mean Platelet Volume 9.7 fL (9.4-12.4); Monocytes # (auto) 1.08 K/uL (0.11-0.59); Monocytes % (auto) 7.5 %; Neutrophils # (auto) 12.48 K/uL (1.40-6.50); Neutrophils % (auto) 86.6 %; Platelet Count 356 K/uL (130-400); RDW Standard Deviation 49.5 fL (36.4-46.3); Red Blood Count 3.74 M/uL (4.70-6.10); White Blood Count 14.42 K/ul (4.8-10.8)
[2024-03-31 19:01] LABS: Albumin Globulin Ratio 0.8 (0.9-2); BUN Creatinine Ratio 13.2 (10-20); Bilirubin,Total 0.5 mg/dl (0.2-1.0); Calcium 8.5 mg/dl (8.6-10.3); Creatinine Clr Calc Pharmacy 76.2 ml/min; Est GFR (Non-African American) 61.3 ml/min; Globulin 3.8 gm/dl (2.5-4.0); Magnesium 2.1 mg/dl (1.7-2.4); Total Protein 6.8 gm/dl (6.0-8.3)
[2024-03-31 19:04] LABS: INR 1.1 (0.9-1.1); Prothrombin Time 12.2 Seconds (9.0-12.0)
[2024-03-31 19:08] LABS: Troponin I High Sensitivity 14.8 pg/ml (0-20)
[2024-03-31 19:17] LABS: Thyroid Stimulating Hormone 3.794 uIu/ml (0.300-4.500)
--- NOTE | 2024-03-31 20:09 | CT Scan Report ---
Exam(s): CT ABDOMEN + PELVIS Without Contrast EXAM: CT Abdomen and Pelvis Without Intravenous Contrast CLINICAL HISTORY: Reason for exam: constipation; groin pain. TECHNIQUE: Axial computed tomography images of the abdomen and pelvis without intravenous contrast. CTDI is 28.14 mGy and DLP is 1626.47 mGy-cm. Automated exposure control was utilized for the study. A dose lowering technique was utilized adhering to the principles of ALARA. COMPARISON: None FINDINGS: Lung bases: Mild dependent atelectasis bilaterally. Heart: Mild cardiomegaly. ABDOMEN: Liver: Small calcified granulomas in the liver. Gallbladder and bile ducts: Unremarkable. No calcified stones. No ductal dilation. Pancreas: Unremarkable. No ductal dilation. Spleen: Unremarkable. No splenomegaly. Adrenals: Unremarkable. No mass. Kidneys and ureters: Nonspecific mild bilateral perinephric fat stranding. No hydronephrosis or stone. Stomach and bowel: Large amount of stool in colon. No small bowel obstruction. Evaluation of the stomach is limited by underdistention. Small duodenal diverticulum. Diverticulosis without evidence of diverticulitis. PELVIS: Appendix: Normal appendix. Bladder: Bladder wall thickening and surrounding fat stranding, raising concern for cystitis. Please correlate with urinalysis. Superior bladder diverticulum. No stones. Reproductive: Mild calcification in the prostate. ABDOMEN and PELVIS: Intraperitoneal space: Unremarkable. No free air. No significant fluid collection. Bones/joints: Degenerative changes of the spine. No acute fracture. No dislocation. Soft tissues: Small fat-containing umbilical hernia. Vasculature: Phleboliths in the pelvis. Atherosclerotic changes of the vasculature. No abdominal aortic aneurysm. Lymph nodes: Calcified right hilar lymph nodes. IMPRESSION: 1. Large amount of stool in colon. No small bowel obstruction. 2. Bladder wall thickening and surrounding fat stranding, raising concern for cystitis. Please correlate with urinalysis. Electronically signed by: Carly Bryant M.D. 03/31/24 20:08 PM
--- NOTE | 2024-03-31 20:10 | CT Scan Report ---
Exam(s): CT HEAD Without Contrast EXAM: CT Head Without Intravenous Contrast CLINICAL HISTORY: Reason for exam: weakness. TECHNIQUE: Axial computed tomography images of the head/brain without intravenous contrast. CTDI is 16.82 mGy and DLP is 999.52 mGy-cm. Automated exposure control was utilized for the study. A dose lowering technique was utilized adhering to the principles of ALARA. COMPARISON: None FINDINGS: Brain: No acute infarct or hemorrhage identified. No extra-axial fluid collection. No mass effect or midline shift. Scattered areas of hypoattenuation in the supratentorial white matter likely represent chronic small vessel ischemic changes. 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 Ventricles and sulci: Prominence of the ventricles and sulci is likely secondary to cerebral volume loss. Bones: Normal. No bony lesion or acute fracture. Subcutaneous tissues: Normal. Sinuses: Normal. No air-fluid levels or mucosal thickening. Mastoid air cells: Normal. Orbits: Grossly unremarkable. Other: Atherosclerotic calcifications in the intracranial vasculature. IMPRESSION: 1. No acute intracranial abnormality. 2. Chronic small vessel ischemic changes and cerebral volume loss. Electronically signed by: Carly Bryant M.D. 03/31/24 20:09 PM
[2024-03-31] MEDS: SODIUM CHLORIDE 0.9% 500 ML IV ONE (20:11)
[2024-03-31 20:29] LABS: Appearance Urine Cloudy (Clear); Bacteria Urine Automated 4+ (None Seen); Bilirubin Urine Negative (Negative); Blood Urine Negative (Negative); Cast Urine Automated 0-2 /lpf (0-2); Color Urine Yellow; Epithelial Cell Urine Auto 0-2 /hpf (0-2); Glucose Urine UA Negative (Negative); Ketones Urine Trace (Negative); Leukocyte Esterase Urine 1+ (Negative); Nitrite Urine Negative (Negative); Protein Urine 2+ (Negative); RBC Urine Automated 0-2 /hpf (0-2); Specific Gravity Urine 1.019 (1.000-1.030); Urobilinogen Urine Negative (Negative)
[2024-03-31] MEDS: cefTRIAXone SODIUM 2,000 MG/50 ML BAG IV STA (21:00)
--- NOTE | 2024-03-31 22:12 | History & Physical Report ---
Date of Service March 31, 2024 Assessment & Plan (1) Generalized weakness: Plan: 79-year-old male with past medical history significant for prediabetes, hyperlipidemia, hypertension, history of chronic systolic CHF, history of CAD s/p stent, morbid obesity, prostate cancer, chronic kidney disease stage III, degenerative disc disease, osteoporosis, macular degeneration, Fuchs corneal dystrophy, rheumatoid arthritis, presents with weakness and found to have UTI. Patient lives with his daughter. Generally walks with a cane. But last couple of weeks getting progressively weak and using a walker. Today while ambulating was feeling very weak in the legs and was falling backwards but his daughter caught him and daughter's was also there and both of them slowly lowered him down and called EMS. Patient denies any fevers. He straight caths. Noted some burning pain while straight cathing. Denies any hematuria. Constipated. Denies bloody stools or black stools. No abdominal pain. No chest pain or shortness of breath. No cough. No difficulty swallowing. No headache. Has chronic back pain. Complaining of pain in the bilateral groin region when he is standing up and trying to ambulate. Vision is okay. No runny nose or sore throat. Currently resting comfortably and hemodynamically stable. Generalized weakness Ambulatory dysfunction Acute UTI Empiric Rocephin Gentle fluids for 1 L PT OT when stable Will follow the cultures Close monitor History of CAD s/p stent On aspirin Plavix and beta-corwin Close monitor Sinus Tachycardia improved with iv lopressor will monitor. Elevated troponin mostly demand ischemia will follow serial ce. History of chronic systolic CHF EF 45% echo done in November 2023 On losartan and metoprolol succinate Monitor for volume overload History of prostate cancer Status post radiation Currently on Lupron shots Follows with oncology and urology Hypertension On losartan and metoprolol succinate Will monitor BPH On Flomax Straight caths Will monitor for retention CKD stage III Baseline creatinine 1.2-1.4 Creatinine 1.1 today Will follow labs Rheumatoid arthritis Will hold methotrexate for now Prediabetes Will follow HbA1c levels DVT prophylaxis Heparin subcu Disposition Med/telemetry Full code History of Present Illness Chief Complaint: Weakness and UTI Primary Care Provider: Rhianna Huitron, 79-year-old male with past medical history significant for prediabetes, hyperlipidemia, hypertension, history of chronic systolic CHF, history of CAD s/p stent, morbid obesity, prostate cancer, chronic kidney disease stage III, degenerative disc disease, osteoporosis, macular degeneration, Fuchs corneal dystrophy, rheumatoid arthritis, presents with weakness and found to have UTI. Patient lives with his daughter. Generally walks with a cane. But last couple of weeks getting progressively weak and using a walker. Today while ambulating was feeling very weak in the legs and was falling backwards but his daughter caught him and daughter's was also there and both of them slowly lowered him down and called EMS. Patient denies any fevers. He straight caths. Noted some burning pain while straight cathing. Denies any hematuria. Constipated. Denies bloody stools or black stools. No abdominal pain. No chest pain or shortness of breath. No cough. No difficulty swallowing. No headache. Has chronic back pain. Complaining of pain in the bilateral groin region when he is standing up and trying to ambulate. Vision is okay. No runny nose or sore throat. Currently resting comfortably and hemodynamically stable. Past medical history. As mentioned above Past surgical history. Colonoscopy. Tonsillectomy adenoidectomy. Social history. . Currently with daughter. Quit smoking 1997. Smoked 1 pack a day for 35 years. No alcohol use. No drug use. Family history. Mother had rheumatoid arthritis. Peptic ulcer disease. Father had peptic ulcer disease. Sister has osteoarthritis. Allergies Allergy/AdvReac Type Severity Reaction Status Date / Time pollen extracts Allergy Mild WATERY Verified 03/31/24 17:40 EYES, SNEEZING Sulfa (Sulfonamide Allergy Unknown CAN'T Verified 03/31/24 17:40 Antibiotics) REMEMBER KUN Inhibitors AdvReac Intermediate Cough Verified 03/31/24 17:40 alendronate sodium AdvReac Intermediate MUSCLE & Verified 03/31/24 17:40 [From Fosamax] JOINT PAIN, HEARTBURN, CONSTIPATION misoprostol AdvReac Intermediate Diarrhea Verified 03/31/24 17:40 [id number] Reductase AdvReac Intermediate CONSTIPATION/UPSET Verified 03/31/24 17:40 Inhibitor STOMACH [Cvuairv-Pcx-Fry Reductase Inhibitor] Home Medications Medication Instructions Recorded Confirmed Type folic acid 1 mg tablet 1 mg PO DAILY 04/04/20 03/31/24 History methotrexate sodium 2.5 mg tablet 12.5 mg PO WK 04/15/23 03/31/24 History tamsulosin 0.4 mg capsule 0.4 mg PO DAILY 04/15/23 03/31/24 History acetaminophen 325 mg tablet 650 mg (2 x 325 mg) PO Q4H PRN 09/03/23 03/31/24 Rx fever or pain #60 tabs aspirin 81 mg tablet,delayed 81 mg PO QAM #30 tabs 09/03/23 03/31/24 Rx release clopidogrel 75 mg tablet 75 mg PO QAM #30 tabs 09/03/23 03/31/24 Rx losartan 25 mg tablet 12.5 mg PO QAM 03/31/24 03/31/24 History metoprolol succinate 50 mg 25 mg PO BID 03/31/24 03/31/24 History tablet,extended release 24 hr Past Med/Surg History Problem List (Updated 03/31/24 @ 20:13 by Daniela Balderrama MD) Acute cystitis (Acute) Generalized weakness (Acute) Substernal chest pain (Acute) Ventricular tachycardia (Acute) Coronary artery disease NSVT (nonsustained ventricular tachycardia) Unstable angina pectoris Rheumatoid arthritis Hypertension Urinary retention Morbid obesity Ventricular tachycardia Prostate cancer (Chronic 03/16/23) Arthritis of knee, left Medical History (Updated 03/31/24 @ 20:13 by Daniela Balderrama MD) Left ventricular systolic dysfunction Degeneration of lumbosacral intervertebral disc Impaired fasting glucose Macular degeneration Fuchs' corneal dystrophy Frequent UTI Surgical History H/O colonoscopy History of prostate biopsy Family History Father Heart disease Stomach ulcer Mother Rheumatoid arthritis Social History Smoking Status: Former smoker Tobacco Type: Cigarettes Age Started Using Tobacco: 19; packs per day: 1; Second Hand Exposure: Yes; Do You Dip or Chew Tobacco: No; Hx Alcohol Use: No Hx Substance Use: No Preferred Language: [place] Communication Ability: Effective Visual Impairment: No Limitations Hearing Ability: Normal Oil Sprayer Required: No Beliefs That Will Affect Care: None marital status: / Current Living Situation: Family Current Living Situation Comment: lives at home with daughter/son-in-law/granddaughter current occupational status: retired current occupation: [employer] Other Information That Helps Us Care for You: No Feels Safe at Home: Yes Safety Concerns: Feels Safe At This Time Diet: regular during the past year weight has: remained stable Assistive Devices: Cane, Glasses and Walker Review of Systems Review of Systems: All systems reviewed & are unremarkable except as noted in HPI & below Physical Exam Physical Exam: General- Not in distress Head- atraumatic Eyes- PERRL. ENT- oropharynx clear Neck- supple, no JVD. Lungs- clear to auscultation no wheezing or crackles. Heart- regular rhythm; no murmur, no gallop. Abdomen- normal bowel sounds, soft, nontender, no distension Extremities- no pretibial edema, no erythema seen Neuro- alert, oriented PERRL, no facial palsy; no dysarthria; moves extremities Results & Data Results & Data Vital Signs (Past 12 Hours) Vital Signs Temp Pulse Pulse Resp BP BP Pulse Ox 03/31/24 21:41 100 H 18 137/82 95 03/31/24 21:22 92 H 03/31/24 19:03 87 18 96 03/31/24 17:50 93 H 03/31/24 17:30 94 H 18 97 03/31/24 17:25 97 03/31/24 17:25 36.8 C 94 H 18 126/90 97 O2 Del Method 03/31/24 21:41 Room Air 03/31/24 21:22 03/31/24 19:03 Room Air 03/31/24 17:50 03/31/24 17:30 Room Air 03/31/24 17:25 Room Air 03/31/24 17:25 Room Air Diagnostic Findings Laboratory Results WBC 14.42 K/ul (4.8-10.8) H 03/31/24 17:00 RBC 3.74 M/uL (4.70-6.10) L 03/31/24 17:00 Hgb 10.1 g/dl (14.0-18.0) L 03/31/24 17:00 Hct 32.3 % (42.0-52.0) L 03/31/24 17:00 MCV 86.4 fL (80.0-100.0) 03/31/24 17:00 MCH 27.0 pg (25.0-34.0) 03/31/24 17:00 MCHC 31.3 g/dL (32.0-36.0) L 03/31/24 17:00 RDW Std Deviation 49.5 fL (36.4-46.3) H 03/31/24 17:00 RDW Coeff of Jenny 16.0 % (11.5-14.5) H 03/31/24 17:00 Plt Count 356 K/uL (130-400) 03/31/24 17:00 MPV 9.7 fL (9.4-12.4) 03/31/24 17:00 Immature Gran % (Auto) 0.7 % 03/31/24 17:00 Neut % (Auto) 86.6 % 03/31/24 17:00 Lymph % (Auto) 4.4 % 03/31/24 17:00 Hart % (Auto) 7.5 % 03/31/24 17:00 Eos % (Auto) 0.6 % 03/31/24 17:00 Baso % (Auto) 0.2 % 03/31/24 17:00 Neut # (Auto) 12.48 K/uL (1.40-6.50) H 03/31/24 17:00 Lymph # (Auto) 0.64 K/uL (1.20-3.40) L 03/31/24 17:00 Hart # (Auto) 1.08 K/uL (0.11-0.59) H 03/31/24 17:00 Eos # (Auto) 0.09 K/uL (0.00-0.50) 03/31/24 17:00 Baso # (Auto) 0.03 K/uL (0.00-0.20) 03/31/24 17:00 Immature Gran # (Auto) 0.10 K/uL (0.01-0.20) 03/31/24 17:00 PT 12.2 Seconds (9.0-12.0) H 03/31/24 17:00 INR 1.1 (0.9-1.1) 03/31/24 17:00 Sodium 131 mmol/L (136-145) L 03/31/24 17:00 Potassium 4.0 mmol/L (3.5-5.1) 03/31/24 17:00 Chloride 95 mmol/L (98-107) L 03/31/24 17:00 Carbon Dioxide 27 mmol/L (21-32) 03/31/24 17:00 Anion Gap 9 (3-11) 03/31/24 17:00 BUN 15 mg/dl (6-23) 03/31/24 17:00 Creatinine 1.14 mg/dl (0.6-1.4) 03/31/24 17:00 Est Cr Clr Drug Dosing 76.2 ml/min 03/31/24 17:00 Est GFR ( Amer) 71.0 ml/min 03/31/24 17:00 Est GFR (Non-Af Amer) 61.3 ml/min 03/31/24 17:00 BUN/Creatinine Ratio 13.2 (10-20) 03/31/24 17:00 Glucose 157 mg/dl (70-99(Fasting)) H 03/31/24 17:00 Lactate 1.4 mmol/L (0.4-2.0) 03/31/24 17:40 Calcium 8.5 mg/dl (8.6-10.3) L 03/31/24 17:00 Magnesium 2.1 mg/dl (1.7-2.4) 03/31/24 17:00 Total Bilirubin 0.5 mg/dl (0.2-1.0) 03/31/24 17:00 AST 13 U/L (13-39) 03/31/24 17:00 ALT 11 U/L (7-52) 03/31/24 17:00 Alkaline Phosphatase 94 U/L (34-104) 03/31/24 17:00 Troponin I High Sens 14.8 pg/ml (0-20) 03/31/24 17:00 Total Protein 6.8 gm/dl (6.0-8.3) 03/31/24 17:00 Albumin 3.0 gm/dl (3.4-5.0) L 03/31/24 17:00 Globulin 3.8 gm/dl (2.5-4.0) 03/31/24 17:00 Albumin/Globulin Ratio 0.8 (0.9-2) L 03/31/24 17:00 TSH 3.794 uIu/ml (0.300-4.500) 03/31/24 17:00 Urine Color Yellow 03/31/24 20:10 Urine Appearance Cloudy (Clear) A 03/31/24 20:10 Urine pH 6.0 (4.5-7.5) 03/31/24 20:10 Ur Specific [place] 1.019 (1.000-1.030) 03/31/24 20:10 Urine Protein 2+ (Negative) H 03/31/24 20:10 Urine Glucose (UA) Negative (Negative) 03/31/24 20:10 Urine Ketones Trace (Negative) H 03/31/24 20:10 Urine Blood Negative (Negative) 03/31/24 20:10 Urine Nitrite Negative (Negative) 03/31/24 20:10 Urine Bilirubin Negative (Negative) 03/31/24 20:10 Urine Urobilinogen Negative (Negative) 03/31/24 20:10 Ur Leukocyte Esterase 1+ (Negative) H 03/31/24 20:10 Urine WBC (Auto) 11-20 /hpf (0-5) H 03/31/24 20:10 Urine RBC (Auto) 0-2 /hpf (0-2) 03/31/24 20:10 U Hyaline Cast (Auto) 0-2 /lpf (0-2) 03/31/24 20:10 U Epithel Cells (Auto) 0-2 /hpf (0-2) 03/31/24 20:10 Urine Bacteria (Auto) 4+ (None Seen) H 03/31/24 20:10 Adenovirus (PCR) Not Detected (NotDetected) 03/31/24 17:40 B. pertussis DNA (PCR) Not Detected (NotDetected) 03/31/24 17:40 B.parapertussis DNA PCR Not Detected (NotDetected) 03/31/24 17:40 C. pneumoniae DNA (PCR) Not Detected (NotDetected) 03/31/24 17:40 Coronavirus OC43 (PCR) Not Detected (NotDetected) 03/31/24 17:40 Coronavirus HKU1 (PCR) Not Detected (NotDetected) 03/31/24 17:40 Coronavirus 229E (PCR) Not Detected (NotDetected) 03/31/24 17:40 SARS-CoV-2 (PCR) Not Detected (NotDetected) 03/31/24 17:40 Coronavirus NL63 (PCR) Not Detected (NotDetected) 03/31/24 17:40 Human Metapneumovir PCR Not Detected (NotDetected) 03/31/24 17:40 Influenza Type A (PCR) Not Detected (NotDetected) 03/31/24 17:40 Influenza Type B (PCR) Not Detected (NotDetected) 03/31/24 17:40 M. pneumoniae (PCR) Not Detected (NotDetected) 03/31/24 17:40 Parainfluenza 1 (PCR) Not Detected (NotDetected) 03/31/24 17:40 Parainfluenza 2 (PCR) Not Detected (NotDetected) 03/31/24 17:40 Parainfluenza 3 (PCR) Not Detected (NotDetected) 03/31/24 17:40 Parainfluenza 4 (PCR) Not Detected (NotDetected) 03/31/24 17:40 RSV (PCR) Not Detected (NotDetected) 03/31/24 17:40 Entero/Rhino (PCR) Not Detected (NotDetected) 03/31/24 17:40 Impressions Abdomen/Pelvis CT 03/31/24 17:27 Exam(s): CT ABDOMEN + PELVIS Without Contrast EXAM: CT Abdomen and Pelvis Without Intravenous Contrast CLINICAL HISTORY: Reason for exam: constipation; groin pain. TECHNIQUE: Axial computed tomography images of the abdomen and pelvis without intravenous contrast. CTDI is 28.14 mGy and DLP is 1626.47 mGy-cm. Automated exposure control was utilized for the study. A dose lowering technique was utilized adhering to the principles of ALARA. COMPARISON: None FINDINGS: Lung bases: Mild dependent atelectasis bilaterally. Heart: Mild cardiomegaly. ABDOMEN: Liver: Small calcified granulomas in the liver. Gallbladder and bile ducts: Unremarkable. No calcified stones. No ductal dilation. Pancreas: Unremarkable. No ductal dilation. Spleen: Unremarkable. No splenomegaly. Adrenals: Unremarkable. No mass. Kidneys and ureters: Nonspecific mild bilateral perinephric fat stranding. No hydronephrosis or stone. Stomach and bowel: Large amount of stool in colon. No small bowel obstruction. Evaluation of the stomach is limited by underdistention. Small duodenal diverticulum. Diverticulosis without evidence of diverticulitis. PELVIS: Appendix: Normal appendix. Bladder: Bladder wall thickening and surrounding fat stranding, raising concern for cystitis. Please correlate with urinalysis. Superior bladder diverticulum. No stones. Reproductive: Mild calcification in the prostate. ABDOMEN and PELVIS: Intraperitoneal space: Unremarkable. No free air. No significant fluid collection. Bones/joints: Degenerative changes of the spine. No acute fracture. No dislocation. Soft tissues: Small fat-containing umbilical hernia. Vasculature: Phleboliths in the pelvis. Atherosclerotic changes of the vasculature. No abdominal aortic aneurysm. Lymph nodes: Calcified right hilar lymph nodes. IMPRESSION: 1. Large amount of stool in colon. No small bowel obstruction. 2. Bladder wall thickening and surrounding fat stranding, raising concern for cystitis. Please correlate with urinalysis. Electronically signed by: Carly Bryant M.D. 03/31/24 20:[address] 03/31/24 17:27 Exam(s): CT HEAD Without Contrast EXAM: CT Head Without Intravenous Contrast CLINICAL HISTORY: Reason for exam: weakness. TECHNIQUE: Axial computed tomography images of the head/brain without intravenous contrast. CTDI is 16.82 mGy and DLP is 999.52 mGy-cm. Automated exposure control was utilized for the study. A dose lowering technique was utilized adhering to the principles of ALARA. COMPARISON: None FINDINGS: Brain: No acute infarct or hemorrhage identified. No extra-axial fluid collection. No mass effect or midline shift. Scattered areas of hypoattenuation in the supratentorial white matter likely represent chronic small vessel ischemic changes. 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 Ventricles and sulci: Prominence of the ventricles and sulci is likely secondary to cerebral volume loss. Bones: Normal. No bony lesion or acute fracture. Subcutaneous tissues: Normal. Sinuses: Normal. No air-fluid levels or mucosal thickening. Mastoid air cells: Normal. Orbits: Grossly unremarkable. Other: Atherosclerotic calcifications in the intracranial vasculature. IMPRESSION: 1. No acute intracranial abnormality. 2. Chronic small vessel ischemic changes and cerebral volume loss. Electronically signed by: Carly Bryant M.D. 03/31/24 20:09 PM ECG Additional Comments: ECG. Sinus rhythm with frequent PVCs rate of 88. ST depression anterior leads. Code Status & VTE Plan VTE Prophylaxis Plan VTE Prophylaxis will be ordered: Yes
[2024-03-31] MEDS ORDERED: NITROGLYCERIN SL 0.4 MG/TAB TAB SL PRN (23:35)
[2024-03-31] MEDS ORDERED: POLYETHYLENE (MIRALAX) 17 GM PACK PO PRN (23:35)
--- OUTSIDE RECORDS SUMMARY | 2024-04-01 00:15 | External Medical Summary | Summary of Care ---
Author Name Unknown Organization [facility] Address [address] [facility] [address] Phone [phone] Care Team Providers Care Manager Clinical Pharmacy Name Role Phone Kat Huitron DO Primary Care Provider [phone] Encounter Details Date Type Department Care Team (Late st Contact Info) Description 03/14/2024 11:15 AM EDT Telemedicine Urology, [facility] [address] [facility] [place] [address] Vinay Sexton MD [address] [address] Prostate cancer (HCC)*; Elevated prostate specific antigen (PSA); BPH with obstruction/lower urinary tract symptoms; Obstructive uropathy Allergies Active Allergy Reactions Criticality Noted Date Comments Brent Inhibitors Cough Low 11/26/2017 Alendronate Sodium Muscle pain 04/11/2019 Heartburn, constipation, joint pain Misoprostol Diarrhea 08/08/2003 Niacin Er 11/26/2010 Gas, hot flashes Pollen 01/01/2018 Watery eyes, sneezing Pravastatin 02/26/2007 Upset stomach, all .Statins Simvastatin 02/26/2007 Upset stomach documented as of this encounter (statuses as of 03/15/2024) Medications Medication Sig Dispensed Refills Start Date End Date Status ASPIR-81 81 MG PO TBEC 1 TABLET DAILY 0 06/19/2006 Active Acetaminophen 325 MG Oral Tablet (Tylenol) 2 Tablets. 09/03/2023 Active Magnesium Oxide -Mg Supplement 400 (240 Mg) MG Oral Tablet (Mag-Ox) Take 1 Tablet by mouth in the morning and 1 Tablet before bedtime. 180 Tablet 3 09/18/2023 Active Additional Information Patient taking differently:400 mg OralQHS, Reported on 12/08/2023 Clopidogrel Bisulfate 75 MG Oral Tablet (Plavix) Take 1 Tablet by mouth in the morning. 90 Tablet 3 09/18/2023 Active Entresto 24-26 MG Oral Tablet (sacubitril-valsar hanson 24-26 mg per tab) Take 1 Tablet by mouth in the morning and 1 Tablet before bedtime. 180 Tablet 3 09/18/2023 Active Rosuvastatin Calcium 5 MG Oral Tablet (Crestor) Take 1 Tablet by mouth in the morning. 90 Tablet 3 09/18/2023 Active Folic Acid 1 MG Oral TabletIndications: Arthritis, rheumatoid (HCC) TAKE 1 TABLET BY MOUTH EVERY DAY IN THE MORNING 90 Tablet 3 09/21/2023 Active OneTouch Verio In Vitro Strip (Glucose Blood) Type 2 diabetes, check blood sugars 2 times a day, in am and pm. 100 Strip 1 11/06/2023 Active Metoprolol Succinate ER 50 MG Oral Tablet Extended Release 24 Hour (toPROL XL) Take two tablets daily in the morning and one at bedtime 252 Tablet 3 12/16/2023 Active Tamsulosin HCl 0.4 MG Oral Capsule (Flomax) TAKE 1 CAPSULE BY MOUTH EVERY MORNING 90 Capsule 3 12/23/2023 Active Methotrexate Sodium 2.5 MG Oral TabletIndications: Arthritis, rheumatoid (HCC) TAKE 5 TABLETS BY MOUTH ONCE WEEKLY 65 Tablet 1 02/02/2024 Active documented as of this encounter (statuses as of 03/15/2024) Active Problems Problem Noted Date Diagnosed Date S/P angioplasty with stent 12/18/2023 Chronic kidney disease, stage 3a 09/14/2023 Overview: Per CKD protocol Heart failure 09/08/2023 Prostate cancer 04/13/2023 Dyslipidemia, goal LDL below 160 08/29/2019 Osteoporosis with symptom management only 2019 Morbid obesity with BMI of 40.0-44.9, adult 12/02 Prediabetes 11/08/2018 Overview: Per Prediabetes protocol #1 Fuchs' corneal dystrophy 10/19/2018 History of colon [...] glucose 12/16/2005 Macular degeneration 12/02/1999 DISC DIS [id number] documented as of this encounter (statuses as of 03/15/2024) Resolved Problems Problem Noted Date Diagnosed Date Resolved Date Type 2 diabetes mellitus wit h stage 3a chronic kidney disease 08/10/2023 12/18/2023 Overview: Per CKD protocol Diabetes mellitus with stage 3 chronic kidney disease 07/13/2023 08/13/2023 Overview: Per CKD protocol Chronic kidney disease, stage 3a 04/13/2023 07/16/2023 Overview: Per CKD protocol Diabetes mellitus without complication 04/10/2022 12/18/2023 Morbid (severe) obesity due to excess calories 08/19/2017 03/09/2019 Infective otitis externa 09/08/2012 Cough 07/03/2012 08/18/2012 Benign neoplasm of colon 05/10/2007 Overview: adenomatous repeat colonoscopy in 5 years ARTHRITIS,RHEUMATOID 07/07/2006 016 [id number] 07/07/200611/01 Overview: Renamed Per Clinical Trials Billing Project. Pt is a participant in the [facility] (Consortium of Rhe[employer]ology [employer] [place]) national data collection study. For further information please call Dr Hari Clark or Julia White, RN, CCRC at [phone] [facility] RESEARCH OTHER*[id number] 07/07/2006 01/28/2010 Overview: Renamed Per Clinical Trials Billing Project. Pt is a participant in the [facility] ([facility]ortium [facility]) national data collection study. For further information please call Dr Hari Clark or Julia White, RN, CCRC at [phone] Hearing loss 12/02/1999 03/29/2013 documented as of this encounter (statuses as of 03/15/2024) Immunizations Name Administration Dates Next Due COVID-19 mRNA, LNP-s, No Pre serve, 2-Dose Series (Dryad) 06/14/2021,10/10/2020,09/12/2020 COVID-19, LNP-s, No Preserve , Yousuf-sucrose, [...] 04/19/2019 TDAP (age 10 and older)(Boostrix) 12/04/2016 TDAP, Age 7 and older, IM (Adacel) 12/03/2006 Varicella Zoster Vaccine (Adult) 10/02/2014 Zoster Vaccine Recombinant (Shingrix) 01/05/2020 ,09/02/2019 documented as of this encounter Social History Tobacco Use Types Packs/Day Years Used Date Smoking Tobacco: Former Cigarettes 1 35 0 08/03/1962 - 08/03/1997 Passive Smoke Exposure: Past Smokeless Tobacco: [...] Progress Notes * Vinay Sexton MD - 03/14/2024 11:15 AM EDT [id number] PCP: KAT HUITRON [address] [place] [id number] [phone] Patient location: HOME. I was in a hospital or clinic location. After connecting through televideo,patient was verified with two unique identifiers. Patient (or authorized legal policy services representative) was then informed that this was a Telemedicine visit and being conducted confidentially over secure lines. Methods to assure confidentiality were taken. Patient acknowledged consent and understanding of pr ivacy and security of the Telemedicine visit. The patient agreed to participate. Markus Wharton is a 79 year old male, who presents for f/u of his aggressive prostate cancer, diagnosed a year ago. He feels he is in the midst of a bout of diverticulitis, taking OTC laxatives. He notes heart attack early in the year, continues to convalesce. BPH: Patient is being seen for BPH today. He has had the following symptoms: slow stream, intermittency and nocturia. Severity is moderate. History of UTI. He has tried tamsulosin increased with BID. He has previously had no surgery done. Patient currently on CIC. Voids in small amounts without catheters. Problem has been present for years. Problem is stable. Prostate cancer: Diagnosed March 2023 due to rise in PSA to 8.49 (2022). High-volume grade group 5 adenocarcinoma with evidence of hydronephrosis, han metastasis on PSMA scan. Lupron started April 2023. He was started on Zytega by Dr. Puente. Palliative XRT completed June 2023. PSA Results: Lab Results Component Value Date/Time PSA - [facility] 0.05 12/25/2023 02:31 PM PSA - [facility] 0.06 11/06/2023 11:47 AM PSA - [facility] 0.10 09/09/2023 10:18 AM PSA - [facility] 0.88 12/03/2006 09:18 AM PSA - [facility] 0.68 12/01/2005 11:34 AM PSA - [facility] 0.69 12/03/2004 09:34 AM PSA SCREENING 1.09 07/04/2010 08:[address] scan Sep 2023: IMPRESSION 1. No hydroureteronephrosis. 2. Diffuse bladder wall thickening with perivesicular fat stranding, which may be related to post-radiation changes versus infectious process. Recommend correlation with urinalysis. Current Outpatient Medications Medication Sig Dispense Refill ASPIR-81 81 MG PO TBEC 1 TABLET DAILY 0 Acetaminophen 325 MG Oral Tablet (Tylenol) 2 Tablets. Magnesium Oxide -Mg Supplement 400 (240 Mg) MG Oral Tablet (Mag-Ox) Take 1 Tablet by mouth in the morning and 1 Tablet before bedtime. (Patient taking differently: Take 1 Tablet by mouth every night at bedtime.) 180 Tablet 3 Clopidogrel Bisulfate 75 MG Oral Tablet (Plavix) Take 1 Tablet by mouth in the morning. 90 Tablet 3 Entresto 24-26 MG Oral Tablet (sacubitril-valsartan 24-26 mg per tab) Take 1 Tablet by mouth in themorning and 1 Tablet before bedtime. 180 Tablet 3 Rosuvastatin Calcium 5 MG Oral Tablet (Crestor) Take 1 Tablet by mouth in the morning. 90 Tablet 3 Folic Acid 1 MG Oral Tablet TAKE 1 TABLET BY MOUTH EVERY DAY IN THE MORNING 90 Tablet 3 OneTouch Verio In Vitro Strip (Glucose Blood) Type 2 diabetes, check blood sugars 2 times a day, kostas and pm. 100 Strip 1 Metoprolol Succinate ER 50 MG Oral Tablet Extended Release 24 Hour (toPROL XL) Take two tablets daily in the morning and one at bedtime 252 Tablet 3 Tamsulosin HCl 0.4 MG Oral Capsule (Flomax) TAKE 1 CAPSULE BY MOUTH EVERY MORNING 90 Capsule 3 Methotrexate Sodium 2.5 MG Oral Tablet TAKE 5 TABLETS BY MOUTH ONCE WEEKLY 65 Tablet 1 No current facility-administered medications for this visit. Review of patient's allergies indicates: Allergen Reactions Fosamax [Alendronate Sodium] Muscle pain Heartburn, constipation, joint pain Misoprostol Diarrhea Niaspan [Niacin Er] Gas, hot flashes Pollen Watery eyes, sneezing Pravastatin Upset stomach, all .Statins Simvastatin Upset stomach Brent Inhibitors Cough Social History: Social History Tobacco Use Smoking status: Former Current packs/day: 0.00 Average packs/day: 1 pack/day for 35.0 years (35.0 ttl pk-yrs) Types: Cigarettes Start date: 08/03/1962 Quit date: 08/03/1997 Years since quittin.6 Passive exposure: Past Smokeless tobacco: Never Tobacco comments: occasional cigar Substance Use Topics Alcohol use: Not Currently Vaping/E-Cigarette Use Vaping/E-Cigarette Use Never User Vaping/E-Cigarette Substances Vaping/E-Cigarette Devices Family History Problem Relation Name Age of Onset Arthritis Mother RHEUMATOID Gastro-intestinal disorder Mother PUD Gastro-intestinal disorder Father PUD Diabetes Uncle (Unspecified) Arthritis Sister osteo Arthritis Sister osteo Past Surgical History: Procedure Laterality Date COLONOSCOPY W/ LESION REMOVAL, SNARE 05/10/07 adenomatous repeat in 5 years COLONOSCOPY, DIAGNOSTIC (RECTUM) 05/10/2013 COLONOSCOPY FLEXIBLE PROXIMAL DIAGNOSTIC performed by Teddy Rizvi MD at ENDOSCOPY [facility] COLONOSCOPY, DIAGNOSTIC (RECTUM) 01/21/2019 diverticulosis, repeat 5 yrs/COLONOSCOPY FLEXIBLE PROXIMAL DIAGNOSTIC performed by Teddy Rizvi MD at ENDOSCOPY [facility] REMOVE TONSILS & ADENOIDS, AGE 12+ 1979 Tonsillectomy/Adenoids,12+ Y/O Past Medical History: Diagnosis Date Arthritis, rheumatoid (HCC) Benign neoplasm of colon 05/10/07 adenomatous repeat colonoscopy in 5 years Degeneration of lumbosacral intervertebral disc Elevated blood pressure, situational Fuchs' corneal dystrophy 10/19/2018 Impaired fasting glucose Macular degeneration Morbid (severe) obesity due to excess calories ([facility]) 08/19/2017 Patient Active Problem List Diagnosis Macular degeneration DISC DIS [id number] Impaired fasting glucose ADVANCE DIRECTIVE INFORMATION Encounter for long-term (current) use of medications BMI 35-39 ISOLATED (SEE ACTUAL BMI) Rheumatoid arthritis involving multiple sites with positive rheumatoid factor (HCC) HTN, goal below 130/80 History of colon polyps Fuchs' corneal dystrophy Prediabetes Morbid obesity with BMI of 40.0-44.9, adult (HCC) Dyslipidemia, goal LDL below 160 Osteoporosis with symptom management only Prostate cancer (HCC) Heart failure (HCC) Chronic kidney disease, stage 3a ([facility]) S/P angioplasty with stent Constitutional: (-) fever and (-) chills Eyes: (+) corrective lenses Abdominal/GI: (+) constipation or change in bowel pattern Male : see HPI Psychiatry: (-) negative: no depression or anxiety Physical Exam Constitutional: General: He is not in acute distress. Appearance: He is not toxic-appearing. HENT: Head: Normocephalic and atraumatic. Right Ear: External ear normal. Left Ear: External ear normal. Nose: Nose normal. Mouth/Throat: Mouth: Mucous membranes are moist. Eyes: Extraocular Movements: Extraocular movements intact. Pulmonary: Effort: Pulmonary effort is normal. No respiratory distress. Abdominal: General: There is no distension. Neurological: Mental Status: He is oriented to person, place, and time. Psychiatric: Behavior: Behavior normal. Thought Content: Thought content normal. 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 Findings reviewed with patient at length. Lengthy note truncated due to EMR malfunction. Seen the patient's ongoing medical difficulties for which he is being followed by numerous physicians, will move out to yearly visits with our service. We are pleased with his excellent PSA value. Continue catheterization and tamsulosin. Upcoming visits for androgen deprivation with nursing staff are confirmed. Contact us sooner with any urinary deterioration. Above content is personally reviewed. Patient vocalizes good understanding of the treatment plan. Vinay Sexton MD 7:56 AM 03/14/2024 documented in this encounter Plan of Treatment Upcoming Encounters Date Type Department Care Team (Late st Contact Info) Description 03/21/2024 9:00 AM EDT Laboratory Laboratory, [place] [address] [place] [phone] [facility] [address] [place] [address] 03/28/2024 2:00 PM EDT Office Visit Hematology/Oncology [facility] [place] [address] [place] [phone] Korin Fisher CRNP [address] [facility] [place] [address] 05/03/2024 9:00 AM EDT Nurse Only Urology, [place] [facility] [address] [place] [address] [place], Nurse Urology [facility] [address] [address] 05/13/2024 11:50 AM EDT Office Visit [facility] [address] [place] [facility] [place] [phone] Kat Huitron DO [address] [place] [address] 05/19/2024 10:20 AM EDT Office Visit Rheumatology [place] [id number] [facility] [place] [address] Mendel Wilson MD [facility] [place] [address] Scheduled Procedures Name Priority Associated Diagnoses Date/Ti me COLONOSCOPY FLEXIBLE PROXIMAL DIAGNOSTIC Recall Hx of colonic polyps Health Maintenance Due Date Last Done Comments CKD PHOS USE SMARTSET 89446 02/23/1963 Adult Wellness Visit 03/16/2020 03/16/2019 DXA Scan 01/10/2021 01/10/2019, 12/2005, 07/07/2006 Depression Screening 03/13/2021 03/13/2020 COVID-19 Vaccine ( season) 2023 05/23/2022, 12/25/2021, 06/14/2021, Additional history exists Albumin/Creatinine Ratio 04/10/2023 04/10/2022, 10/2006 *BISPHONATE OR OTHER ACCEPTABLE MEDICATION NEEDED FOR OSTEOPOROSIS (REFER TO SMARTSET #1146) 04/29/2023 Colonoscopy 01/22/2024 01/21/2019, 01/02, 05/10/2013, Additional history exists Influenza Vaccine (FLU shot) (#1) 2024 05/08/2022, 05/07/2021, 04/17/2020, Additional history exists GFR 06/26/2024 12/25/2023, 02/2024, 08/20/2023, Additional history exists HbA1c 11/05/2024 11/06/2023, 06/04, 12/24/2022, Additional history exists CKD HGB USE SMARTSET 77773 12/24/202412/24, 12/25/2023, 09/09/2023, Additional history exists DTaP,Tdap,and Td Vaccines (3 - Td or Tdap) 12/04/2026 12/04/2016, 12/03/2006, 12/15/1996, Additional history exists Pneumococcal Vaccine: 65+ Years Completed 10/02/2014, 09/01/2011, 07/07/2006 RETIRED - COLONOSCOPY-EVERY 5 YRS AGES 18-100 Discontinued 01/21/2019, 01/21/2019, 05/10/2013, Additional history exists Zoster Vaccines Completed 01/05/2020, 08/05, 10/02/2014 Diabetic Foot Exam Discontinued 12/18/2023, 12/24/2022 VITAMIN D LEVEL ONCE IN A LIFETIME-USE SMARTSET# [id number] Completed 12/25/2023, 05/27/2021, 09/07/2019, Additional history exists Diabetic Eye Exam Discontinued 02/01/2024, , 01/30/2022, Additional history exists HPV (Gardasil) Vaccine Aged Out No lo nger eligible based on patient's age to complete this topic Hepatitis B Vaccine Aged Out No longe r eligible based on patient's age to complete [...] unspecified documented in this encounter Care Teams Manager Clinical Pharmacy Relationship Specialty Start Date End Date Kat Huitron DO [address] [place] [address] PCP - General Family Medicine 07/11/19 documented as of this encounter
--- OUTSIDE RECORDS SUMMARY | 2024-04-01 00:15 | External Medical Summary ---
Author Name Unknown Address Unknown Organization K01:[facility] [address] [place] [address] [place] [address] Laboratory Report Ordering Provider Test Date Status PAM MURILLO 03/21/2024 08:43:55 Final Observation Date Value Abnormality Reference (Units ) Status PSA 03/21/2024 08:43:55 0.04 <4.10 (ng/ mL) Final Performing Location [facility] - [address] [place] [address]
--- OUTSIDE RECORDS SUMMARY | 2024-04-01 00:15 | External Medical Summary ---
Author Name Unknown Address Unknown Organization K01:[facility] [place] [facility] [address] [facility] [address] Laboratory Report Ordering Provider Test Date Status JOHNATHON CASILLAS 03/21/2024 08:43:55 Final Observation Date Value Abnormality Reference (Units ) Status WBC, Total 03/21/2024 08:43:55 14.62 Above high normal 4.00-10.80 (K/uL) Final RBC 03/21/2024 08:43:55 3.96 4.50-5.25 (M/uL) Final Hemoglobin 03/21/2024 08:43:55 11.1 Below low normal 14.0-16.8 (g/dL) Final HCT 03/21/2024 08:43:55 35.9 Below low normal 40.0-48.4 (%) Final MCV 03/21/2024 08:43:55 90.7 82.0-99.5 (fL) Final MCH 03/21/2024 08:43:55 28.0 27.0-34.0 (pg) Final MCHC 03/21/2024 08:43:55 30.9 32.0-36.0 (g/dL) Final RDW 03/21/2024 08:43:55 15.5 11.5-15.5 (%) Final Platelets 03/21/2024 08:43:55 435 Above high normal 140-400 (K/uL) Final MPV 03/21/2024 08:43:55 9.9 6.6-11.1 (fL) Final Nucleated erythrocytes/100 leukocytes [Ratio] in Blood by Automated count 03/21/2024 08:43:55 0 <=0 (/100 WBCs) Final Performing Location [facility] [place] [address] [facility] [address]
--- OUTSIDE RECORDS SUMMARY | 2024-04-01 00:15 | External Medical Summary | Summary of Care ---
Author Name Unknown Organization [facility] Address [address] [address] Phone [phone] Care Team Providers Care Lumber Chain Offbearer Name Role Phone Rhianna Huitron DO Primary Care Provider Reason for Visit * Reason Onset Date Comments Information 03/23/2024 Encounter Details Date Type Department Care Team (Late st Contact Info) Description 03/23/2024 Telephone Cardiology, [facility] [address] [place] [address] Dmitri Greenfield, [address] [place] [address] Information Allergies Active Allergy Reactions Criticality Noted Date Comments Brent Inhibitors Cough Low 11/26/2017 Alendronate Sodium Muscle pain 04/11/2019 Heartburn, constipation, joint pain Misoprostol Diarrhea 08/08/2003 Niacin Er 11/26/2010 Gas, hot flashes Pollen 01/01/2018 Watery eyes, sneezing Pravastatin 02/26/2007 Upset stomach, all .Statins Simvastatin 02/26/2007 Upset stomach documented as of this encounter (statuses as of 03/23/2024) Medications Medication Sig Dispensed Refills Start Date [...] the morning. 90 Tablet 3 09/18/2023 Active Rosuvastatin Calcium 5 MG Oral Tablet (Crestor) Take 1 Tablet by mouth in the morning. 90 Tablet 3 09/18/2023 Active Folic Acid 1 MG Oral TabletIndications:A rthritis, rheumatoid (HCC) TAKE 1 TABLET BY MOUTH EVERY DAY IN THE MORNING 90 Tablet 3 09/21/2023 Active OneTouch Verio In Vitro Strip (Glucose Blood) Type 2 diabetes, check blood sugars 2 times a day, in am and pm. 100 Strip 1 11/06/2023 Active Tamsulosin HCl 0.4 MG Oral Capsule (Flomax) TAKE 1 CAPSULE BY MOUTH EVERY MORNING 90 Capsule 3 12/23/2023 Active Methotrexate Sodium 2.5 MG Oral TabletIndications:A rthritis, rheumatoid (HCC) TAKE 5 TABLETS BY MOUTH ONCE WEEKLY 65 Tablet 1 02/02/2024 Active Losartan Potassium 25 MG Oral Tablet (Cozaar) One half tablet by mouth daily 45 Tablet 3 03/17/2024 Active Metoprolol Succinate ER 50 MG Oral Tablet Extended Release 24 Hour (toPROL XL)Indications:NSVT (nonsustained ventricular tachycardia) (HCC),Non-ischemic cardiomyopathy (HCC),Chronic HFrEF (heart failure with reduced ejection fraction) (HCC) Take 0.5 Tablets by mouth in the morning and 0.5 Tablets before bedtime. 03/23/2024 Active Metoprolol Succinate ER 50 MG Oral Tablet Extended Release 24 Hour (toPROL XL) Take two tablets daily in the morning and one at bedtime 252 Tablet 3 12/16/2023 4 Discontinu ed(Medicat ion/Dose Changed) documented as of this encounter (statuses as of 03/23/2024) Active Problems Problem Noted Date Diagnosed Date [...] glucose 12/16/2005 Macular degeneration 12/02/1999 DISC DIS [id number] documented as of this encounter (statuses as of 03/23/2024) Resolved Problems Problem Noted Date Diagnosed Date [...] colonoscopy in 5 years ARTHRITIS,RHEUMATOID 07/07/2006 016 [id number] 07/07/200611/01 Overview: Renamed Per Clinical Trials Billing Project. Pt is a participant in the [facility] (Consortium of Rheumatology Researchers of [facility]) national data collection study. For further information please call Dr Hari Clark or Julia White, RN, CCRC at [phone] [facility] RESEARCH OTHER*[id number] 07/07/2006 01/28/2010 Overview: Renamed Per Clinical Trials Billing Project. Pt is a participant in the [facility] ([facility] of Rheumatology Researchers of [facility]) national data collection study. For further information please call Dr Hari Clark or Julia White, RN, CCRC at [phone] Hearing loss 12/02/1999 03/29/2013 documented as of this encounter (statuses as of 03/23/2024) Immunizations Name Administration Dates Next Due COVID-19 mRNA, LNP-s, No Pre serve, 2-Dose Series (Urban [employer]) 06/14/2021,10/10/2020,09/12/2020 COVID-19, LNP-s, No Preserve , Yousuf-sucrose, Ages 12+ (Pfizer) 12/25/2021 Covid-19, Mrna, Lnp-s, Pf, B ivalent, 30 Mcg, IM, 12 yrs and above (Urban Ladder) 05/23/2022 Pneumococcal Conjugate Vacc, 13 Valent (Prevnar) [...] encounter Miscellaneous Notes * Telephone Encounter - Nelly Hough LPN - 03/23/2024 3:42 PM EDT Spoke with patient by phone, gave information in this encounter. Verbalized understanding Agreed to plan of care. Med list updated * Telephone Encounter - Cleo Chavira CMA - 03/23/2024 3:32 PM EDT Attempted to contact patient by phone, no answer. Left brief message on unidentified VM for patient to return call. * Telephone Encounter - Dmitri Greenfield DO - 03/23/2024 1:54 PM EDT Beta-corwin is felt to be an important medication for this patient who had episodes of frequent nonsustained ventricular tachycardia during hospital stay. Follow up Zio patch revealed frequent premature ventricular contractions and at least a moderate degree premature atrial contractions. He was on metoprolol succinate 50 milligrams twice daily If patient wants to try a lower dose I think it would be reasonable, but stopping this medication cold will likely resultant him having fast heartbeats as he withdrawals from the medicine. He can cut a pill in half and take 25 milligrams 2 times per day, or take 150 milligram tablet daily. Ideally we may need to slowly increase the medication if he was not able to tolerate the full 100 milligrams in a day (was on 50 twice daily, we need to aim for of the 75 milligrams daily, but for now, a total of 50 milligrams daily would suffice. Update med list and Rx as necessary. Dmitri Greenfield DO * Telephone Encounter - Nelly Hough LPN - 03/23/2024 11:19 AM EDT Called pt to gather more information. Started about 2 weeks ago, and is getting worse. States ever since hospital discharge and starting metoprolol feeling very tired, legs & feet very heavy and tired. Constipated, gets dizzy with bowel movements. Started 2 weeks ago, getting worse. Taking laxatives/miralax. Pt stopped metoprolol yesterday on his own. Said he took a beta corwin in the past and had same symptoms. Dizziness is better since stopping Entresto. Tired and lightheaded when getting out of shower and higher pulse rates 110's * Telephone Encounter - Irene Young OSA - 03/23/2024 9:52 AM EDT Person calling: markus Relationship to patient: self Phone/Fax to return call: [phone] Reason for call(brief): med concernss Pharmacy: na Provider Name:joellen Detailed message to office: Numbness in hands feet and thighs. And light headed. Pt thinks its the Metoprolol Heart rate-80-90 bp- 111/63 documented in this encounter Plan of Treatment Upcoming Encounters Date Type Department Care Team (Late st Contact Info) Description 03/28/2024 2:00 PM EDT Telemedicine Hematology/Oncology [facility] [place] [address] [facility] [place] [phone] Korin Fisher CRNP [address] [facility] [place] [address] 05/03/2024 9:00 AM EDT Nurse Only Urology, [facility] [place] [address] [place] [address] Nurse Garrett Urology [facility] [address] [place] [address] 05/13/2024 11:50 AM EDT Office Visit [facility] [address] [place] [phone] Rhianna Huitron DO [address] [place] [address] 05/19/2024 10:20 AM EDT Office Visit Rheumatology [place] [address] [facility] [place] [address] Mendel Wilson MD [address] [employer] [facility] [place] [address] 10/17/2024 10:30 AM EDT Office Visit Cardiology, [facility] [address] [place] [address] Dmitri Greenfield DO [address] [place] [address] 03/21/2025 11:45 AM EDT Telemedicine Urology, [facility] [address] [place] [address] Vinay Sexton MD [address] [place] [address] Scheduled Procedures Name Priority Associated Diagnoses Date/Ti me COLONOSCOPY FLEXIBLE PROXIMAL DIAGNOSTIC Recall Hx of colonic polyps Health Maintenance Due Date Last Done Comments CKD PHOS USE SMARTSET 43818 02/23/1963 Adult Wellness Visit 03/16/2020 03/16/2019 DXA [...] 05/08/2022, 05/07/2021, 04/17/2020, Additional history exists GFR 09/21/2024 03/21/2024, 12/02, 09/09/2023, Additional history exists HbA1c 11/05/2024 11/06/2023, 06/04, 12/24/2022, Additional history exists CKD HGB USE SMARTSET 14707 03/21/202503/21, 03/21/2024, 12/25/2023, Additional history exists DTaP,Tdap,and Td Vaccines (3 - Td or Tdap) 12/04/2026 12/04/2016, 12/03/2006, 12/15/1996, Additional history exists Pneumococcal Vaccine: 65+ Years Completed 10/02/2014, 09/01/2011, 07/07/2006 RETIRED - COLONOSCOPY-EVERY 5 YRS AGES 18-100 Discontinued 01/21/2019, 01/21/2019, 05/10/2013, Additional history exists Zoster Vaccines Completed 01/05/2020, 08/05, 10/02/2014 Diabetic Foot Exam Discontinued 12/18/2023, 12/24/2022 Diabetic Eye Exam Discontinued 02/01/2024, , 01/30/2022, Additional history exists VITAMIN D LEVEL ONCE IN A LIFETIME-USE SMARTSET# [id number] Completed 03/21/2024, 12/25/2023, 05/27/2021, Additional history exists HPV (Gardasil) Vaccine Aged [...] as of this encounter Visit Diagnoses Diagnosis NSVT (nonsustained ventricular tachycardia) (HCC)- Primary Paroxysmal ventricular tachycardia Non-ischemic cardiomyopathy (HCC) Other primary cardiomyopathies Chronic HFrEF (heart failure with reduced ejection fraction) (HCC) documented in this encounter Care Teams Lumber Chain Offbearer Relationship Specialty Start Date End Date Rhianna Huitron DO [address] [place] [address] PCP - General Family Medicine 07/11/19 documented as of this encounter
--- OUTSIDE RECORDS SUMMARY | 2024-04-01 00:15 | External Medical Summary | Summary of Care ---
Author Name Unknown Organization [facility] Address [address] [address] Phone [phone] Care Team Providers Care Senior Ui Software Engineer Name Role Phone Kat Huitron DO Primary Care Provider [phone] Encounter Details Date Type Department Care Team (Late st Contact Info) Description 03/14/2024 11:15 AM EDT Telemedicine Urology, [facility] [address] [facility] [place] [address] Vinay Sexton MD [address] [place] [address] Prostate cancer (HCC)*; Elevated prostate specific antigen [...] as of this encounter (statuses as of 03/14/2024) Medications Medication Sig Dispensed Refills Start Date [...] Active Entresto 24-26 MG Oral Tablet (sacubitril-valsar hanosn 24-26 mg per tab) Take 1 Tablet [...] as of this encounter (statuses as of 03/14/2024) Active Problems Problem Noted Date Diagnosed Date [...] glucose 12/16/2005 Macular degeneration 12/02/1999 DISC DIS [id number] documented as of this encounter (statuses as of 03/14/2024) Resolved Problems Problem Noted Date Diagnosed Date [...] colonoscopy in 5 years ARTHRITIS,RHEUMATOID 07/07/2006 016 [id number] 07/07/200611/01 Overview: Renamed Per Clinical Trials Billing Project. Pt is a participant in the [facility] (Consortium of Rheumatology Researchers of [place] national data collection study. For further information please call Dr Hari Clark or Julia White, RN, CCRC at [phone] [facility] RESEARCH OTHER*[id number] 07/07/2006 01/28/2010 Overview: Renamed Per Clinical Trials Billing Project. Pt is a participant in the [facility] (Consortium of Rheumatology Researchers of [facility]) national data collection study. For further information please call Dr Hari Clark or Julia White, RN, CCRC at [phone] Hearing loss 12/02/1999 03/29/2013 documented as of this encounter (statuses as of 03/14/2024) Immunizations Name Administration Dates Next Due COVID-19 mRNA, LNP-s, No Pre serve, 2-Dose Series (Peerz) 06/14/2021,10/10/2020,09/12/2020 COVID-19, LNP-s, No Preserve , Yousuf-sucrose, [...] Sexton MD - 03/14/2024 11:15 AM EDT [id number] PCP: KAT HUITRON [address] [place] [address] [phone] Patient location: HOME. I was in a hospital or clinic location. After connecting through televideo,patient was verified with two unique identifiers. 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 repeat colonoscopy in 5 years Degeneration of lumbosacral intervertebral disc Elevated blood pressure, situational Fuchs' corneal dystrophy 10/19/2018 Impaired fasting glucose Macular degeneration Morbid (severe) obesity due to excess calories ([facility]) 08/19/2017 Patient Active Problem List Diagnosis Macular degeneration DISC DIS [id number] Impaired fasting glucose ADVANCE DIRECTIVE INFORMATION Encounter [...] failure (HCC) Chronic kidney disease, stage 3a ([facility]) S/P angioplasty with stent Constitutional: (-) fever [...] Description 03/21/2024 9:00 AM EDT Laboratory Laboratory, [place] [address] [place] [phone] [facility] [address] [place] [address] 03/28/2024 2:00 PM EDT Office Visit Hematology/Oncology [facility] [place] [address] [place] [phone] Korin Fisher CRNP [address] [facility] [place] [address] 05/03/2024 9:00 AM EDT Nurse Only Urology, [facility] [address] [place] [address] Tucker, Nurse Urology [facility] [address] [facility] [place] [address] 05/13/2024 11:50 AM EDT Office Visit [facility] [address] [place] [phone] Kat Huitron DO [address] [place] [address] 05/19/2024 10:20 AM EDT Office Visit Rheumatology [place] [address] [facility] [place] [address] Mendel Wilson MD [facility] [place] [address] Scheduled Procedures Name Priority Associated Diagnoses Date/Ti me COLONOSCOPY FLEXIBLE PROXIMAL DIAGNOSTIC Recall Hx of colonic polyps Health Maintenance Due Date Last Done Comments CKD PHOS USE SMARTSET 91247 02/23/1963 Adult Wellness Visit 03/16/2020 03/16/2019 DXA [...] Additional history exists CKD HGB USE SMARTSET 78176 12/24/202412/24, 12/25/2023, 09/09/2023, Additional history exists DTaP,Tdap,and Td Vaccines (3 - Td or Tdap) 12/04/2026 12/04/2016, 12/03/2006, 12/15/1996, Additional history exists Pneumococcal Vaccine: 65+ Years Completed 10/02/2014, 09/01/2011, 07/07/2006 RETIRED - COLONOSCOPY-EVERY 5 YRS AGES 18-100 Discontinued 01/21/2019, 01/21/2019, 05/10/2013, Additional history exists Zoster Vaccines Completed 01/05/2020, 08/05, 10/02/2014 Diabetic Foot Exam Discontinued 12/18/2023, 12/24/2022 VITAMIN D LEVEL ONCE IN A LIFETIME-USE SMARTSET# [id number] Completed 12/25/2023, 05/27/2021, 09/07/2019, Additional history exists [...] unspecified documented in this encounter Care Teams Senior Ui Software Engineer Relationship Specialty Start Date End Date Kat Huitron DO [address] [place] [address] PCP - General Family Medicine 07/11/19 documented as of this encounter
--- OUTSIDE RECORDS SUMMARY | 2024-04-01 00:15 | External Medical Summary ---
Author Name Unknown Address Unknown Organization K01:[facility] [place] [address] [place] [address] Laboratory Report Ordering Provider Test Date Status FIDENCIO ROSS 03/21/2024 08:43:55 Final Deficient: <20 ng/mL
Ins ufficient: 20-29 ng/mL
Recommended/Optimum:30-50 ng/mL

Vitamin D intoxication is rare. If suspicious of Vitamin D toxicity, evaluation of serum Calcium and PTH is recommended. Observation Date Value Abnormality Reference (Units ) Status 25-OH Vitamin D total 03/21/2024 08:43:55 29 >19 (ng/mL) Final Performing Location [facility] [place] [address] [place] [address]
--- OUTSIDE RECORDS SUMMARY | 2024-04-01 00:15 | External Medical Summary | Summary of Care ---
Author Name Unknown Organization [facility] Address [address] [place] [address] Phone [phone] Care Team Providers Care Carbon Lamp Cleaner Name Role Phone Rhianna Huitron DO Primary Care Provider [phone] Encounter Details Date Type Department Care Team (Late st Contact Info) Description 03/23/2024 Telephone [facility] [address] [place] [address] Rhianna Huitron DO [address] [place] [address] Allergies Active Allergy Reactions Criticality [...] mouth daily 45 Tablet 3 03/17/2024 Active documented as of this encounter (statuses [...] glucose 12/16/2005 Macular degeneration 12/02/1999 DISC DIS [id number] documented as of this encounter (statuses as [...] colonoscopy in 5 years ARTHRITIS,RHEUMATOID 07/07/2006 016 [id number] 07/07/200611/01 Overview: Renamed Per Clinical Trials Billing Project. Pt is a participant in the [employer] (Consortium of Rheumatology Researchers of [place]) national data collection study. For further information please call Dr Hari Clark or Julia White, RN, CCRC at [phone] [facility] RESEARCH OTHER*[id number] 07/07/2006 01/28/2010 Overview: Renamed Per Clinical Trials Billing Project. Pt is a participant in the [employer] (Consortium of Rheumatology Researchers of [place]) national data collection study. For further information please call Dr Hari Clark or Julia White RN, CCRC at [phone] Hearing loss 12/02/1999 03/29/2013 documented as of [...] Description 03/28/2024 2:00 PM EDT Telemedicine Hematology/Oncology [facility] [phone] Korin Fisher CRNP [address] [facility] [place] [address] 05/03/2024 9:00 AM EDT Nurse Only Urology, [facility] [address] [place] [address] Garrett Nurse Urology [place] [address] [place] [address] 05/13/2024 11:50 AM EDT [address] [address] Rhianna Huitron, DO [address] [place] [address] 05/19/2024 10:20 AM EDT Office Visit Rheumatology [facility] [address] [facility] [place] [address] Mendel Wilson MD [address] [facility] [place] [address] 10/17/2024 10:30 AM EDT Office Visit Cardiology, [facility] [address] [facility] [place] [address] Dmitri Greenfield, DO [address] [place] [address] 03/21/2025 11:45 AM EDT Telemedicine Urology, [facility] [place] [address] Vinay Sexton MD [address] [place] [address] Scheduled Procedures Name Priority Associated Diagnoses Date/Ti me COLONOSCOPY FLEXIBLE PROXIMAL DIAGNOSTIC Recall Hx of colonic polyps Health Maintenance Due Date Last Done Comments CKD PHOS USE SMARTSET 32446 02/23/1963 Adult Wellness Visit 03/16/2020 03/16/2019 DXA [...] Additional history exists CKD HGB USE SMARTSET 27784 03/21/202503/21, 03/21/2024, 12/25/2023, Additional history exists DTaP,Tdap,and [...] D LEVEL ONCE IN A LIFETIME-USE SMARTSET# 24514 Completed 03/21/2024, 12/25/2023, 05/27/2021, Additional history exists [...] as of this encounter Visit Diagnoses Diagnosis Rheumatoid arthritis involving multiple sites with positive rheumatoid factor (HCC)- Primary documented in this encounter Care Teams Carbon Lamp Cleaner Relationship Specialty Start Date End Date Rhianna Huitron DO [address] [place] [address] PCP - General Family Medicine 07/11/19 documented as of this encounter
--- OUTSIDE RECORDS SUMMARY | 2024-04-01 00:15 | External Medical Summary | Summary of Care ---
Author Name Unknown Organization [facility] Address [address] [facility] [address] Phone [phone] Care Team Providers Care Caterpillar Tractor Operator Name Role Phone Rhianna Huitron DO Primary Care Provider [phone] Encounter Details Date Type Department Care Team (Late st Contact Info) Description 03/21/2024 Telephone Urology Samy Bhatt [address] [place] [address] Vinay Sexton MD [address] [place] [address] Allergies Active Allergy Reactions Criticality Noted Date Comments Brent Inhibitors Cough Low 11/26/2017 Alendronate Sodium Muscle pain 04/11/2019 Heartburn, constipation, joint pain Misoprostol Diarrhea 08/08/2003 Niacin Er 11/26/2010 Gas, hot flashes Pollen 01/01/2018 Watery eyes, sneezing Pravastatin 02/26/2007 Upset stomach, all .Statins Simvastatin 02/26/2007 Upset stomach documented as of this encounter (statuses as of 03/21/2024) Medications Medication Sig Dispensed Refills Start Date [...] as of this encounter (statuses as of 03/21/2024) Active Problems Problem Noted Date Diagnosed Date [...] glucose 12/16/2005 Macular degeneration 12/02/1999 DISC DIS [id number] documented as of this encounter (statuses as of 03/21/2024) Resolved Problems Problem Noted Date Diagnosed Date [...] colonoscopy in 5 years ARTHRITIS,RHEUMATOID 07/07/2006 016 [id number] 07/07/200611/01 Overview: Renamed Per Clinical Trials Billing Project. Pt is a participant in the [employer] (Consortium of Rheumatology Researchers of [place]) national data collection study. For further information please call Dr Hari Clark or Julia White, RN, CCRC at [phone] [facility] RESEARCH OTHER*[id number] 07/07/2006 01/28/2010 Overview: Renamed Per Clinical Trials Billing Project. Pt is a participant in the [employer] (Consortium of Rheumatology Researchers [place]) national data collection study. For further information please call Dr Hari Clark or Julia White, RN, CCRC at [phone] Hearing loss 12/02/1999 03/29/2013 documented as of this encounter (statuses as of 03/21/2024) Immunizations Name Administration Dates Next Due COVID-19 [...] Telephone Encounter - Monica Arroyo LPN - 03/21/2024 11:27 AM EDT lmtcb documented in this encounter Plan of Treatment Upcoming Encounters Date Type Department Care Team (Late st Contact Info) Description 03/28/2024 2:00 PM EDT Telemedicine Hematology/Oncology [facility] [place] [address] [facility] [phone] Korin Fisher CRNP [address] [place] [address] [place] [phone] 05/03/2024 9:00 AM EDT Nurse Only Urology, [place] [address] [place] [address] Garrett Nurse Urology [place] [address] [place] [address] 05/13/2024 11:50 AM EDT Office Visit Family Practice, [place] [address] [place] [address] Rhianna Huitron DO [address] [place] [address] 05/19/2024 10:20 AM EDT Office Visit Rheumatology [place] [address] [place] [address] Mendel Wilson MD [facility] [place] [address] 10/17/2024 10:30 AM EDT Office Visit Cardiology, [facility] [address] [facility] [place] [address] Dmitri Greenfield, DO [address] [place] [address] Scheduled Procedures Name Priority Associated Diagnoses Date/Ti me COLONOSCOPY FLEXIBLE PROXIMAL DIAGNOSTIC Recall Hx of colonic polyps Health Maintenance Due Date Last Done Comments CKD PHOS USE SMARTSET 95085 02/23/1963 Adult Wellness Visit 03/16/2020 03/16/2019 DXA [...] Additional history exists CKD HGB USE SMARTSET 22128 12/24/202412/24, 12/25/2023, 09/09/2023, Additional history exists DTaP,Tdap,and Td Vaccines (3 - Td or Tdap) 12/04/2026 12/04/2016, 12/03/2006, 12/15/1996, Additional history exists Pneumococcal Vaccine: 65+ Years Completed 10/02/2014, 09/01/2011, 07/07/2006 RETIRED - COLONOSCOPY-EVERY 5 YRS AGES 18-100 Discontinued 01/21/2019, 01/21/2019, 05/10/2013, Additional history exists Zoster Vaccines Completed 01/05/2020, 08/05, 10/02/2014 Diabetic Foot Exam Discontinued 12/18/2023, 12/24/2022 VITAMIN D LEVEL ONCE IN A LIFETIME-USE SMARTSET# [id number] Completed 12/25/2023, 05/27/2021, 09/07/2019, Additional history exists [...] filedocumented as of this encounter Care Teams Caterpillar Tractor Operator Relationship Specialty Start Date End Date Rhianna Huitron DO [address] [place] [address] PCP - General Family Medicine 07/11/19 documented as of this encounter
--- OUTSIDE RECORDS SUMMARY | 2024-04-01 00:15 | External Medical Summary ---
Author Name Unknown Address Unknown Organization K01:LABORATORY [facility] [place] - [address] [place] [address] Laboratory Report Ordering Provider Test Date Status JOHNATHON CASILLAS 03/21/2024 08:43:55 Final Observation Date Value Abnormality Reference (Units ) Status SYNC LEUKOCYTES IN BLOOD BY AUTOMATED COUNT 03/21/2024 08:43:55 14.62 Above high normal 4.00-10.80 (K/uL) Final Segs 03/21/2024 08:43:55 88.9 Above high normal 40.0-75.0 (%) Final Lymphs % 03/21/2024 08:43:55 5.7 Below low normal 18.0-42.0 (%) Final Monos 03/21/2024 08:43:55 4.4 1.0-11.0 (%) Final Eosinophils 03/21/2024 08:43:55 0.3 0.0-6.0 (%) Final Basos 03/21/2024 08:43:55 0.2 0.0-2.0 (%) Final Immature Granulocyte, Percent 03/21/2024 08:43:55 0.5 0.0-2.0 (%) Final Absolute Segs 03/21/2024 08:43:55 12.97 Above high normal 1.80-7.70 (K/uL) Final Lymphs, absolute 03/21/2024 08:43:55 0.84 Below low normal 1.00-4.80 (K/ul) Final Monos, Abs 03/21/2024 08:43:55 0.65 0.00-1.10 (K/uL) Final Eos, Abs 03/21/2024 08:43:55 0.05 0.00-0.70 (K/uL) Final Basos, Abs 03/21/2024 08:43:55 0.03 0.00-0.20 (K/uL) Final Immature Granulocytes, Number 03/21/2024 08:43:55 0.08 0.00-0.20 (K/uL) Final Performing Location LABORATORY [facility] [place] - [facility] [place] [address]
--- OUTSIDE RECORDS SUMMARY | 2024-04-01 00:15 | External Medical Summary | Summary of Care ---
Author Name Unknown Organization [facility] Address [address] [place] [address] Phone [phone] Care Team Providers Care Sand Drier Name Role Phone Rhianna Huitron DO Primary Care Provider [phone] Encounter Details Date Type Department Care Team (Late st Contact Info) Description 03/28/2024 Orders Only Outcomes Research Department [address], [place] [id number] Nicole Robertson CHRA [employer] Other*[id number] Allergies Active Allergy Reactions Criticality Noted Date Comments Brent Inhibitors Cough Low 11/26/2017 Alendronate Sodium Muscle pain 04/11/2019 Heartburn, constipation, joint pain Misoprostol Diarrhea 08/08/2003 Niacin Er 11/26/2010 Gas, hot flashes Pollen 01/01/2018 Watery eyes, sneezing Pravastatin 02/26/2007 Upset stomach, all .Statins Simvastatin 02/26/2007 Upset stomach documented as of this encounter (statuses as of 03/28/2024) Medications Medication Sig Dispensed Refills Start Date [...] 09/18/2023 Active Folic Acid 1 MG Oral TabletIndications:Ar thritis, rheumatoid (HCC) TAKE 1 TABLET BY MOUTH [...] 12/23/2023 Active Methotrexate Sodium 2.5 MG Oral TabletIndications:Ar thritis, rheumatoid (HCC) TAKE 5 TABLETS BY MOUTH [...] and 0.5 Tablets before bedtime. 03/23/2024 Active documented as of this encounter (statuses as of 03/28/2024) Active Problems Problem Noted Date Diagnosed Date [...] glucose 12/16/2005 Macular degeneration 12/02/1999 DISC DIS [id number] documented as of this encounter (statuses as of 03/28/2024) Resolved Problems Problem Noted Date Diagnosed Date [...] colonoscopy in 5 years ARTHRITIS,RHEUMATOID 07/07/2006 016 [id number] 07/07/200611/01 Overview: Renamed Per Clinical Trials Billing Project. Pt is a participant in the [employer] (Consortium of Rheumatology Researchers of [place]) national data collection study. For further information please call Dr Hari Clark or Julia White, RN, CCRC at [phone] [facility] OTHER*[id number] 07/07/2006 01/28/2010 Overview: Renamed Per Clinical Trials Billing Project. Pt is a participant in the [employer] (Consortium of Rheumatology Researchers [place]) national data collection study. For further information please call Dr Hari Clark or Julia White, RN, CCRC at [phone] Hearing loss 12/02/1999 03/29/2013 documented as of this encounter (statuses as of 03/28/2024) Immunizations Name Administration Dates Next Due COVID-19 [...] Description 03/28/2024 2:00 PM EDT Telemedicine Hematology/Oncology [facility] [address] [facility] [address] [phone] Korin Fisher CRNP [address] [place] [address] [place] [address] 05/03/2024 9:00 AM EDT [facility] [address] [place] [address] Nurse [facility] [place] [address] [place] [address] 05/13/2024 11:50 AM EDT Office [address] [address] Rhianna Huitron, DO [address] [place] [address] 05/19/2024 10:20 AM EDT Office Visit Rheumatology [facility] [address] [facility] [address] Mendel Wilson MD [address] [facility] [place] [address] 10/17/2024 10:30 AM EDT Office Visit [facility], [facility] [place] [address] Dmitri Greenfield, DO [address] [facility] [place] [address] 03/21/2025 11:45 AM EDT Telemedicine Urology, [facility] [address] [place] [address] Vinay Sexton MD [address] [place] [address] Scheduled Orders Name Type Priority Associated Diagnoses Orde r Schedule MYCODE SUBSEQUENT ADULT Lab Routine [facility] Other*[id number] Every 6 Months for 2 Occurrences starting 03/28/2024 until 04/17/2025 Scheduled Procedures Name Priority Associated Diagnoses Date/Ti me COLONOSCOPY FLEXIBLE PROXIMAL DIAGNOSTIC Recall Hx of colonic polyps Health Maintenance Due Date Last Done Comments CKD PHOS USE SMARTSET 92114 02/23/1963 Adult Wellness Visit 03/16/2020 03/16/2019 DXA [...] Additional history exists CKD HGB USE SMARTSET 25052 03/21/202503/21, 03/21/2024, 12/25/2023, Additional history exists DTaP,Tdap,and [...] D LEVEL ONCE IN A LIFETIME-USE SMARTSET# 61858 Completed 03/21/2024, 12/25/2023, 05/27/2021, Additional history exists [...] this encounter Visit Diagnoses Diagnosis [facility] Other*[id number] documented in this encounter Care Teams Sand Drier Relationship Specialty Start Date End Date Rhianna Huitron DO [address] [place] [address] PCP - General Family Medicine 07/11/19 documented as of this encounter
--- OUTSIDE RECORDS SUMMARY | 2024-04-01 00:15 | External Medical Summary ---
Author Name Unknown Address Unknown Organization K01[place] [place] [address] [facility] [place] [address] Laboratory Report Ordering Provider Test Date Status ISAIAH YOUNG 03/21/2024 08:43:55 Final Observation Date Value Abnormality Reference (Units ) Status MYCODE SPECIMEN-SST 03/21/2024 08:43:55 Freezing of extracted DNA, whole blood and/or serum. Final Performing Location [facility] [place] [address] [facility] [address]
--- OUTSIDE RECORDS SUMMARY | 2024-04-01 00:15 | External Medical Summary | Summary of Care ---
Author Name Unknown Organization [facility] Address [address] [place] [address] Phone [phone] Care Team Providers Care Editing Computer Publisher Name Role Phone Rhianna Huitron DO Primary Care Provider Reason for Visit * Reason Comments Outpatient Testing Encounter Details Date Type Department Care Team (Late st Contact Info) Description 03/21/2024 9:00 AM EDT Laboratory Laboratory, [place] [address] [place] [address] [place], [facility] [address] [place] [address] Prostate cancer (HCC); Anemia, unspecified type; [facility] Other*[id number]; Vitamin D deficiency Allergies Active Allergy Reactions Criticality Noted Date [...] glucose 12/16/2005 Macular degeneration 12/02/1999 DISC DIS [id number] documented as of this encounter (statuses as [...] colonoscopy in 5 years ARTHRITIS,RHEUMATOID 07/07/2006 016 [id number] 07/07/200611/01 Overview: Renamed Per Clinical Trials Billing Project. Pt is a participant in the [employer] (Consortium of Rheumatology Researchers [place] national data collection study. For further information please call Dr Hari Clark or Julia White, RN, CCRC at [phone] [facility] RESEARCH OTHER*[id number] 07/07/2006 01/28/2010 Overview: Renamed Per Clinical Trials Billing Project. Pt is a participant in the [facility] (Consortium of Rheumatology Researchers of [facility]) national data collection study. For further information please call Dr Hari Clark or Julia White, RN, CCRC at [phone] Hearing loss 12/02/1999 03/29/2013 documented as of [...] Description 03/28/2024 2:00 PM EDT Telemedicine Hematology/Oncology [facility] [address] [place] [phone] Korin Fisher CRNP [address] [facility] [place] [address] 05/03/2024 9:00 AM EDT Nurse Only Urology, [facility] [place] [address] [facility] [place] [address] [facility] [place] [address] [place] [address] 05/13/2024 11:50 AM EDT Office Visit [facility] [address] [place] [phone] Rhianna Huitron, DO [address] [place] [address] 05/19/2024 10:20 AM EDT Office Visit Rheumatology [facility] [address] [place] [address] Mendel Wilson MD [address] [facility] [place] [address] 10/17/2024 10:30 AM EDT Office Visit Cardiology, [facility] [address] [place] [address] Dmitri Greenfield, DO [address] [place] [address] Pending Results Name Type Priority Associated Diagnoses Date /Time CBC WITH WBC DIFFERENTIAL Lab STAT Prostate cancer (HCC) Anemia, unspecified type 03/21/2024 8:43 AM EDT MYCODE SUBSEQUENT ADULT Lab Routine [facility] Other*[id number] 03/21/2024 8:43 AM EDT PSA Lab Routine Prostate cancer (HCC) 03/21/2024 8:43 AM EDT COMPREHENSIVE METABOLIC PANEL Lab STAT Prostate cancer (HCC) 03/21/2024 8:43 AM EDT 25-HYDROXY VITAMIN D Lab STAT Prostate cancer (HCC) Vitamin D deficiency 03/21/2024 8:43 AM EDT CBC Lab STAT Prostate cancer (HCC) Anemia, unspecified type 03/21/2024 8:43 AM EDT DIFFERENTIAL, AUTOMATED Lab STAT Prostate cancer (HCC) Anemia, unspecified type 03/21/2024 8:43 AM EDT MYCODE SST1 Lab Routine [facility] Other*[id number] 03/21/2024 8:43 AM EDT MYCODE SST2 Lab Routine [facility] Other*[id number] 03/21/2024 8:43 AM EDT Scheduled Procedures Name Priority Associated Diagnoses Date/Ti me COLONOSCOPY FLEXIBLE PROXIMAL DIAGNOSTIC Recall Hx of colonic polyps Health Maintenance Due Date Last Done Comments CKD PHOS USE SMARTSET 37875 02/23/1963 Adult Wellness Visit 03/16/2020 03/16/2019 DXA [...] Additional history exists CKD HGB USE SMARTSET 20713 12/24/202412/24, 12/25/2023, 09/09/2023, Additional history exists DTaP,Tdap,and Td Vaccines (3 - Td or Tdap) 12/04/2026 12/04/2016, 12/03/2006, 12/15/1996, Additional history exists Pneumococcal Vaccine: 65+ Years Completed 10/02/2014, 09/01/2011, 07/07/2006 RETIRED - COLONOSCOPY-EVERY 5 YRS AGES 18-100 Discontinued 01/21/2019, 01/21/2019, 05/10/2013, Additional history exists Zoster Vaccines Completed 01/05/2020, 08/05, 10/02/2014 Diabetic Foot Exam Discontinued 12/18/2023, 12/24/2022 VITAMIN D LEVEL ONCE IN A LIFETIME-USE SMARTSET# 97871 Completed 12/25/2023, 05/27/2021, 09/07/2019, Additional history exists [...] of prostate Anemia, unspecified type [facility] Other*[id number] Vitamin D deficiency Unspecified vitamin D deficiency documented in this encounter Care Teams Editing Computer Publisher Relationship Specialty Start Date End Date Rhianna Huitron DO [address] [place] [address] PCP - General Family Medicine 07/11/19 documented as of this encounter
--- OUTSIDE RECORDS SUMMARY | 2024-04-01 00:15 | External Medical Summary ---
Author Name Unknown Address Unknown Organization K01:LAB[facility]ATORY [facility] [place] - [address] [place] [place] [address] Laboratory Report Ordering Provider Test Date Status ISAIAH YOUNG 03/21/2024 08:43:55 Final Observation Date Value Abnormality Reference (Units ) Status MYCODE SPECIMEN-SST 03/21/2024 08:43:55 Freezing of extracted DNA, whole blood and/or serum. Final Performing Location [facility] [place] - [address] [facility] [facility] [address]
--- OUTSIDE RECORDS SUMMARY | 2024-04-01 00:16 | External Medical Summary | Summary of Care ---
Author Name Unknown Organization [facility] Address [address] [facility] [address] Phone [phone] Care Team Providers Care Family Consultant Name Role Phone Rhianna Huitron DO Primary Care Provider [phone] Reason for Visit * Reason Onset Date Comments Test Results 12/16/2023 Encounter Details Date Type Department Care Team (Late st Contact Info) Description 12/16/2023 Telephone Cardiology, [facility] [address] [place] [address] Dmitri Greenfield, [address] [place] [address] Test Results Allergies Active Allergy Reactions Criticality Noted Date Comments Brent Inhibitors Cough Low 11/26/2017 Alendronate Sodium Muscle pain 04/11/2019 Heartburn, constipation, joint pain Misoprostol Diarrhea 08/08/2003 Niacin Er 11/26/2010 Gas, hot flashes Pollen 01/01/2018 Watery eyes, sneezing Pravastatin 02/26/2007 Upset stomach, all .Statins Simvastatin 02/26/2007 Upset stomach documented as of this encounter (statuses as of 12/30/2023) Medications Medication Sig Dispensed Refills Start Date End Date Status ASPIR-81 81 MG PO TBEC 1 TABLET DAILY 0 6 Active Methotrexate Sodium 2.5 MG Oral TabletIndicatio ns:Arthritis, rheumatoid (HCC) TAKE 5 TABLETS BY MOUTH ONCE WEEKLY 65 Tablet 1 4 Active Acetaminophen 325 MG Oral Tablet (Tylenol) 2 Tablets. 4 Active Magnesium Oxide -Mg Supplement 400 (240 Mg) MG Oral Tablet (Mag-Ox) Take 1 Tablet by mouth in the morning and 1 Tablet before bedtime. 180 Tablet 3 4 Active Additional Information Patient taking differently:400 mg OralQHS, Reported on 12/08/2023 Clopidogrel Bisulfate 75 MG Oral Tablet (Plavix) Take 1 Tablet by mouth in the morning. 90 Tablet 3 4 Active Entresto 24-26 MG Oral Tablet (sacubitril-jaydon sartan 24-26 mg per tab) Take 1 Tablet by mouth in the morning and 1 Tablet before bedtime. 180 Tablet 3 4 Active Rosuvastatin Calcium 5 MG Oral Tablet (Crestor) Take 1 Tablet by mouth in the morning. 90 Tablet 3 4 Active Folic Acid 1 MG Oral TabletIndicatio ns:Arthritis, rheumatoid (HCC) TAKE 1 TABLET BY MOUTH EVERY DAY IN THE MORNING 90 Tablet 3 4 Active OneTouch Verio In Vitro Strip (Glucose Blood) Type 2 diabetes, check blood sugars 2 times a day, in am and pm. 100 Strip 1 4 Active Metoprolol Succinate ER 50 MG Oral Tablet Extended Release 24 Hour (toPROL XL) Take two tablets daily in the morning and one at bedtime 252 Tablet 3 4 Active Tamsulosin HCl 0.4 MG Oral Capsule (Flomax) Take 1 Capsule by mouth in the morning. 90 Capsule 3 3 12/23/19 24 Discontinued Metoprolol Succinate ER 50 MG Oral Tablet Extended Release 24 Hour (toPROL XL) Take 1 Tablet by mouth in the morning and 1 Tablet before bedtime. 90 Tablet 3 4 12/16/19 24 Discontinued(Ref ill) documented as of this encounter (statuses as of 12/30/2023) Active Problems Problem Noted Date Diagnosed Date [...] glucose 12/16/2005 Macular degeneration 12/02/1999 DISC DIS [id number] documented as of this encounter (statuses as of 12/30/2023) Resolved Problems Problem Noted Date Diagnosed Date [...] colonoscopy in 5 years ARTHRITIS,RHEUMATOID 07/07/2006 016 [id number] 07/07/200611/01 Overview: Renamed Per Clinical Trials Billing Project. Pt is a participant in the [facility] (Consortium of Rheumatology Researchers of [facility]) national data collection study. For further information please call Dr Hari Clark or Julia White, RN, CCRC at [phone] [facility] RESEARCH OTHER*[id number] 07/07/2006 01/28/2010 Overview: Renamed Per Clinical Trials Billing Project. Pt is a participant in the [facility] (Consortium of Rheumatology Researchers of [facility]) national data collection study. For further information please call Dr Hari Clark or Julia White, RN, CCRC at [phone] Hearing loss 12/02/1999 03/29/2013 documented as of this encounter (statuses as of 12/30/2023) Immunizations Name Administration Dates Next Due COVID-19 mRNA, LNP-s, No Pre serve, 2-Dose Series ([employer]) 06/14/2021,10/10/2020,09/12/2020 COVID-19, LNP-s, No Preserve , Yousuf-sucrose, [...] encounter Miscellaneous Notes * Telephone Encounter - Dmitri Greenfield DO - 12/16/2023 4:53 PM EDT I called the patient and reviewed the results of his recent Zio patch monitor. Predominant rhythm is sinus rhythm with average rate of 67 bpm. Patient with findings of frequent premature atrial contractions, frequent premature ventricular contractions, 2 brief runs of NSVT, longest of which was 4 beats in duration. Plan: Increase metoprolol succinate from 50 mg twice daily to 100 in AM and 50 in p.m. New prescription sent to his pharmacy. Patient agreeable. Dmitri Greenfield DO documented in this encounter Plan of Treatment Upcoming Encounters Date Type Department Care Team (Late st Contact Info) Description 03/14/2024 11:15 AM EDT Office Visit Urology, [facility] [address] [place] [address] Vinay Sexton MD [address] [address] [place] [address] 03/21/2024 9:00 AM EDT Laboratory Laboratory, [place] [address] [place] [phone] [facility] [address] [place] [address] 03/28/2024 2:00 PM EDT Office Visit Hematology/Oncology [facility] [address] [place] [phone] Korin Fisher CRNP [address] [facility] [place] [address] 05/03/2024 9:00 AM EDT Nurse Only Urology, [facility] [address] [facility] [place] [address] [facility] Nurse Urology [facility] [address] [facility] [place] [address] 05/13/2024 11:50 AM EDT Office Visit Family Practice, [place] [address] [place] [phone] Rhianna Huitron DO [address] [place] [address] 05/19/2024 10:20 AM EDT Office Visit Rheumatology [address] [place] [address] Mendel Wilson MD [address] [place] [address] 05/26/2024 10:30 AM EDT Office Visit Cardiology, [facility] [address] [place] [address] Dmitri Greenfield, [address] [place] [address] Scheduled Procedures Name Priority Associated Diagnoses Date/Ti me COLONOSCOPY FLEXIBLE PROXIMAL DIAGNOSTIC Recall Hx of colonic polyps Health Maintenance Due Date Last Done Comments CKD PHOS USE SMARTSET 25911 02/23/1963 DXA Scan 01/10/2021 01/10/2019, 12/2005, 07/07/2006 Depression Screening 03/13/2021 03/13/2020 COVID-19 Vaccine ( season) 2023 05/23/2022, 12/25/2021, 06/14/2021, Additional history exists Albumin/Creatinine Ratio 04/10/2023 04/10/2022, 10/2006 *BISPHONATE OR OTHER ACCEPTABLE MEDICATION NEEDED FOR OSTEOPOROSIS (REFER TO SMARTSET #1146) 04/29/2023 Colonoscopy 01/22/2024 01/21/2019, 01/02, 05/10/2013, Additional history exists Influenza Vaccine (FLU shot) (Season Ended) 2024 05/08/2022, 05/07/2021, 04/17/2020, Additional history exists GFR 06/26/2024 12/25/2023, 02/2024, 08/20/2023, Additional history exists HbA1c 11/05/2024 11/06/2023, 06/04, 12/24/2022, Additional history exists CKD HGB USE SMARTSET 83903 12/24/202412/24, 12/25/2023, 09/09/2023, Additional history exists DTaP,Tdap,and Td Vaccines (3 - Td or Tdap) 12/04/2026 12/04/2016, 12/03/2006, 12/15/1996, Additional history exists Pneumococcal Vaccine: 65+ Years Completed 10/02/2014, 09/01/2011, 07/07/2006 RETIRED - COLONOSCOPY-EVERY 5 YRS AGES 18-100 Discontinued 01/21/2019, 01/21/2019, 05/10/2013, Additional history exists Zoster Vaccines Completed 01/05/2020, 08/05, 10/02/2014 Diabetic Eye Exam Discontinued 01/30/2023, , 01/25/2021, Additional history exists Diabetic Foot Exam Discontinued 12/18/2023, 12/24/2022 VITAMIN D LEVEL ONCE IN A LIFETIME-USE SMARTSET# 77609 Completed 12/25/2023, 05/27/2021, 09/07/2019, Additional history exists GARDASIL-HPV IMMUNIZATION SERIES Aged [...] filedocumented as of this encounter Care Teams Family Consultant Relationship Specialty Start Date End Date Rhianna Huitron DO [address] [place] [address] PCP - General Family Medicine 07/11/19 documented as of this encounter
--- OUTSIDE RECORDS SUMMARY | 2024-04-01 00:16 | External Medical Summary | Summary of Care ---
Author Name Unknown Organization [facility] Address [address] [place] [facility] [place] [address] Phone [phone] Care Team Providers Care Attorney At Law Name Role Phone Rhianna Huitron DO Primary Care Provider [phone] Encounter Details Date Type Department Care Team (Late st Contact Info) Description 03/10/2024 Telephone [facility] [address] [place] [address] Rhianna Huitron DO [address] [place] [address] Allergies Active Allergy Reactions Criticality Noted Date Comments Bretn Inhibitors Cough Low 11/26/2017 Alendronate Sodium Muscle pain 04/11/2019 Heartburn, constipation, joint pain Misoprostol Diarrhea 08/08/2003 Niacin Er 11/26/2010 Gas, hot flashes Pollen 01/01/2018 Watery eyes, sneezing Pravastatin 02/26/2007 Upset stomach, all .Statins Simvastatin 02/26/2007 Upset stomach documented as of this encounter (statuses as of 03/10/2024) Medications Medication Sig Dispensed Refills Start Date [...] THE MORNING 90 Tablet 3 09/21/2023 Active [place] In Vitro Strip (Glucose Blood) Type 2 [...] as of this encounter (statuses as of 03/10/2024) Active Problems Problem Noted Date Diagnosed Date [...] glucose 12/16/2005 Macular degeneration 12/02/1999 DISC DIS [id number] documented as of this encounter (statuses as of 03/10/2024) Resolved Problems Problem Noted Date Diagnosed Date [...] colonoscopy in 5 years ARTHRITIS,RHEUMATOID 07/07/2006 016 [id number] 07/07/200611/01 Overview: Renamed Per Clinical Trials Billing Project. Pt is a participant in the [employer] (Consortium of Rheumatology Researchers [place]) national data collection study. For further information please call Dr Hari Clark or Julia White, RN, CCRC at [phone] [facility] RESEARCH OTHER*[id number] 07/07/2006 01/28/2010 Overview: Renamed Per Clinical Trials Billing Project. Pt is a participant in the [employer] (Consortium of Rheumatology Researchers [place] national data collection study. For further information please call Dr Hari Clark or Julia White, RN, CCRC at [phone] Hearing loss 12/02/1999 03/29/2013 documented as of this encounter (statuses as of 03/10/2024) Immunizations Name Administration Dates Next Due COVID-19 [...] encounter Miscellaneous Notes * Telephone Encounter - Owen Lorenzana MED ASSIST - 03/10/2024 8:33 AM EDT Received fax from [facility] requesting script that is for bariatric patient. Placed on providers desk documented in this encounter Plan of Treatment Upcoming Encounters Date Type Department Care Team (Late st Contact Info) Description 03/14/2024 11:15 AM EDT Telemedicine Urology, [facility] [address] [facility] [place] [address] Vinay Sexton MD [address] [place] [id number] 03/21/2024 9:00 AM EDT Laboratory Laboratory, [address] [place] [phone] [facility] [address] [place] [address] 03/28/2024 2:00 PM EDT Office Visit Hematology/Oncology [facility] [place] [address] [facility] [place] [phone] Korin Fisher CRNP [address] [place] [address] 05/03/2024 9:00 AM EDT Nurse Only Urology, [facility] [address] [facility] [address] [facility] Nurse [facility] [address] [facility] [address] 05/13/2024 11:50 AM EDT Office Visit Family [facility] [address] [place] [facility] [place] [phone] Rhianna Huitron, [address] [place] [address] 05/19/2024 10:20 AM EDT Office Visit Rheumatology [address] [place] [address] Mendel Wilson MD [address] [place] [address] [place] [address] Scheduled Procedures Name Priority Associated Diagnoses Date/Ti me COLONOSCOPY FLEXIBLE PROXIMAL DIAGNOSTIC Recall Hx of colonic polyps Health Maintenance Due Date Last Done Comments CKD PHOS USE SMARTSET 15472 02/23/1963 Adult Wellness Visit 03/16/2020 03/16/2019 DXA Scan 01/10/2021 01/10/2019, 12/0 12/2005, 07/07/2006 [...] Additional history exists CKD HGB USE SMARTSET 96850 12/24/202412/24, 12/25/2023, 09/09/2023, Additional history exists DTaP,Tdap,and Td Vaccines (3 - Td or Tdap) 12/04/2026 12/04/2016, 12/03/2006, 12/15/1996, Additional history exists Pneumococcal Vaccine: 65+ Years Completed 10/02/2014, 09/01/2011, 07/07/2006 RETIRED - COLONOSCOPY-EVERY 5 YRS AGES 18-100 Discontinued 01/21/2019, 01/21/2019, 05/10/2013, Additional history exists Zoster Vaccines Completed 01/05/2020, 08/05, 10/02/2014 Diabetic Foot Exam Discontinued 12/18/2023, 12/24/2022 VITAMIN D LEVEL ONCE IN A LIFETIME-USE SMARTSET# [id number] Completed 12/25/2023, 05/27/2021, 09/07/2019, Additional history exists [...] filedocumented as of this encounter Care Teams Attorney At Law Relationship Specialty Start Date End Date Rhianna Huitron DO [address] [place] [address] PCP - General Family Medicine 07/11/19 documented as of this encounter
--- OUTSIDE RECORDS SUMMARY | 2024-04-01 00:16 | External Medical Summary | Summary of Care ---
Author Name Unknown Organization [facility] Address [address] [facility] [address] Phone [phone] Care Team Providers Care National Secretary Name Role Phone Rhianna Huitron DO Primary Care Provider [phone] Encounter Details Date Type Department Care Team (Late st Contact Info) Description 12/30/2023 Telephone Hematology/Oncology [facility] [address] [facility] [address] Korin Fisher CRNP 400 [facility] [place] [address] Allergies Active Allergy Reactions Criticality Noted [...] TBEC 1 TABLET DAILY 0 06/19/2006 Active Methotrexate Sodium 2.5 MG Oral TabletIndications: Arthritis, rheumatoid (HCC) TAKE 5 TABLETS BY MOUTH ONCE WEEKLY 65 Tablet 1 08/11/2023 Active Acetaminophen 325 MG Oral Tablet (Tylenol) [...] EVERY MORNING 90 Capsule 3 12/23/2023 Active documented as of this encounter (statuses [...] glucose 12/16/2005 Macular degeneration 12/02/1999 DISC DIS [id number] documented as of this encounter (statuses as [...] colonoscopy in 5 years ARTHRITIS,RHEUMATOID 07/07/2006 016 [id number] 07/07/200611/01 Overview: Renamed Per Clinical Trials Billing Project. Pt is a participant in the [employer] (Consortium of Rheumatology Researchers [place]) national data collection study. For further information please call Dr Hari Clark or Julia White, RN, CCRC at [phone] [facility] RESEARCH OTHER*[id number] 07/07/2006 01/28/2010 Overview: Renamed Per Clinical Trials Billing Project. Pt is a participant in the [employer] (Consortium of Rheumatology [place] national data collection study. For further information please call Dr Hari Clark or Julia White, RN, CCRC at [phone] Hearing loss 12/02/1999 03/29/2013 documented as of [...] encounter Miscellaneous Notes * Telephone Encounter - Korin Fisher CRNP - 12/30/2023 6:07 PM EDT Results for orders placed or performed in visit on 12/25/23 PSA Result Value Ref Range PSA 0.05 <4.10 ng/mL COMPREHENSIVE METABOLIC PANEL Result Value Ref Range BUN 32 (H) 6 - 20 mg/dL Creatinine 1.4 (H) 0.6 - 1.2 mg/dL Estimated Glomerular Filtration Rate 50 (L) >=60 mL/min Sodium 138 135 - 146 mmol/L Potassium 4.6 3.5 - 5.1 mmol/L Chloride 101 98 - 107 mmol/L CO2 27 22 - 32 mmol/L Anion Gap 10 7 - 15 mmol/L Glucose 137 (H) 70 - 120 mg/dL Albumin 3.6 (L) 3.8 - 5.0 g/dL AST 16 10 - 50 U/L Alkaline Phosphatase 90 35 - 130 U/L Bilirubin, Total 0.2 <=1.2 mg/dL Calcium 9.5 8.4 - 10.2 mg/dL Protein 7.4 6.0 - 8.3 g/dL ALT 16 10 - 50 U/L 25-HYDROXY VITAMIN D Result Value Ref Range 25-Hydroxy Vitamin D 28 >19 ng/mL CBC Result Value Ref Range WBC 9.33 4.00 - 10.80 K/uL RBC 3.83 4.50 - 5.25 M/uL HGB 11.1 (L) 14.0 - 16.8 g/dL HCT 35.5 (L) 40.0 - 48.4 % MCV 92.7 82.0 - 99.5 fL MCH 29.0 27.0 - 34.0 pg MCHC 31.3 32.0 - 36.0 g/dL RDW 16.0 11.5 - 15.5 % PLT 295 140 - 400 K/uL MPV 9.4 6.6 - 11.1 fL DIFFERENTIAL, AUTOMATED Result Value Ref Range WBC 9.33 4.00 - 10.80 K/uL Neutrophils % 80.9 (H) 40.0 - 75.0 % Lymphocytes % 9.1 (L) 18.0 - 42.0 % Monocytes % 6.5 1.0 - 11.0 % Eosinophils % 3.2 0.0 - 6.0 % Basophils % 0.3 0.0 - 2.0 % Absolute Neutrophils 7.54 1.80 - 7.70 K/uL Absolute Lymphocytes 0.85 (L) 1.00 - 4.80 K/ul Absolute Monocytes 0.61 0.00 - 1.10 K/uL Absolute Eosinophils 0.30 0.00 - 0.70 K/uL Absolute Basophils 0.03 0.00 - 0.20 K/uL Mild vitamin d deficiency noted. Recommend patient start OTC Vitamin D supplement 1,000 IU daily. Repeat level at next follow up appointment in three months. Order placed. Please make patient aware. documented in this encounter Plan of Treatment Upcoming Encounters Date Type Department Care Team (Late st Contact Info) Description 03/14/2024 11:15 AM EDT Office Visit Urology, [address] [place] [address] Vinay Sexton MD 27 [facility] [address] [place] [address] 03/21/2024 9:00 AM EDT Laboratory Laboratory, [place] [address] [place] [phone] [facility] [address] [place] [address] 03/28/2024 2:00 PM EDT Office Visit Hematology/Oncology [facility] 200 [place] [address] Korin Fisher CRNP 400 [facility] [place] [address] 05/03/2024 9:00 AM EDT Nurse Only Urology, [facility] [address] [facility] [address] [facility] Nurse Urology [facility] 132 [place] [address] 05/13/2024 11:50 AM EDT Office Visit Family [facility], [place] [address] [place] [phone] Rhianna Huitron, [address] [place] [address] 05/19/2024 10:20 AM EDT Office Visit Rheumatology [place] [address] [facility] [place] [address] Mendel Wilson MD [facility] [facility] [place] [address] 05/26/2024 10:30 AM EDT Office Visit Cardiology, [facility] 132 [place] [address] Dmitri Greenfield, DO [address] [place] [address] Scheduled Orders Name Type Priority Associated Diagnoses Orde r Schedule 25-HYDROXY VITAMIN D Lab STAT Prostate cancer (HCC) Vitamin D deficiency Expected: 03/31/2024 (Approximate), Expires: 12/29/2024 Scheduled Procedures Name Priority Associated Diagnoses Date/Ti me COLONOSCOPY FLEXIBLE PROXIMAL DIAGNOSTIC Recall Hx of colonic polyps Health Maintenance Due Date Last Done Comments CKD PHOS USE SMARTSET 02198 02/23/1963 DXA Scan 01/10/2021 01/10/2019, 12/2005, 07/07/2006 [...] Additional history exists CKD HGB USE SMARTSET 48878 12/24/202412/24, 12/25/2023, 09/09/2023, Additional history exists DTaP,Tdap,and [...] D LEVEL ONCE IN A LIFETIME-USE SMARTSET# [id number] Completed 12/25/2023, 05/27/2021, 09/07/2019, Additional history exists [...] cancer (HCC)- Primary Malignant neoplasm of prostate Vitamin D deficiency Unspecified vitamin D deficiency documented in this encounter Care Teams National Secretary Relationship Specialty Start Date End Date Rhianna Huitron DO [address] [place] [address] PCP - General Family Medicine 07/11/19 documented as of this encounter
--- OUTSIDE RECORDS SUMMARY | 2024-04-01 00:16 | External Medical Summary | Summary of Care ---
Author Name Unknown Organization [facility] Address [address] [facility] [address] Phone [phone] Care Team Providers Care Cafeteria Counter Attendant Name Role Phone Rhianna Huitron DO Primary Care Provider Encounter Details Date Type Department Care Team (Late st Contact Info) Description 02/03/2024 Orders Only [facility] [address] [place] [address] Rhianna Huitron DO [address] [place] [address] Allergies Active Allergy Reactions Criticality Noted Date Comments Brent Inhibitors Cough Low 11/26/2017 Alendronate Sodium Muscle pain 04/11/2019 Heartburn, constipation, joint pain Misoprostol Diarrhea 08/08/2003 Niacin Er 11/26/2010 Gas, hot flashes Pollen 01/01/2018 Watery eyes, sneezing Pravastatin 02/26/2007 Upset stomach, all .Statins Simvastatin 02/26/2007 Upset stomach documented as of this encounter (statuses as of 02/03/2024) Medications Medication Sig Dispensed Refills Start Date [...] THE MORNING 90 Tablet 3 09/21/2023 Active [employer] In Vitro Strip (Glucose Blood) Type 2 [...] as of this encounter (statuses as of 02/03/2024) Active Problems Problem Noted Date Diagnosed Date [...] glucose 12/16/2005 Macular degeneration 12/02/1999 DISC DIS [id number] documented as of this encounter (statuses as of 02/03/2024) Resolved Problems Problem Noted Date Diagnosed Date [...] colonoscopy in 5 years ARTHRITIS,RHEUMATOID 07/07/2006 016 [id number] 07/07/200611/01 Overview: Renamed Per Clinical Trials Billing Project. Pt is a participant in the [employer] (Consortium of Rheumatology [place] national data collection study. For further information please call Dr Hari Clark or Julia White, RN, CCRC at [phone] [facility] RESEARCH OTHER*[id number] 07/07/2006 01/28/2010 Overview: Renamed Per Clinical Trials Billing Project. Pt is a participant in the [employer] (Consortium of Rheumatology Researchers of [facility]) national data collection study. For further information please call Dr Hari Clark or Julia White, RN, CCRC at [phone] Hearing loss 12/02/1999 03/29/2013 documented as of this encounter (statuses as of 02/03/2024) Immunizations Name Administration Dates Next Due COVID-19 [...] 03/14/2024 11:15 AM EDT Office Visit Urology, [facility] 132 [facility] [place] [address] Vinay Sexton MD [address] [place] [address] 03/21/2024 9:00 AM EDT Laboratory Laboratory, [place] [address] [facility] [phone] [place], [facility] [address] [facility] [address] 03/28/2024 2:00 PM EDT Office Visit Hematology/Oncology [facility] [phone] Korin Fisher CRNP [address] [place] [address] 05/03/2024 9:00 AM EDT Nurse Only Urology, [facility] [place] [address] [place] Nurse Urology [facility] [address] [place] [address] 05/13/2024 11:50 AM EDT Office Visit Family Practice[address] [phone] Rhianna Huitron DO [address] [place] [address] 05/19/2024 10:20 AM EDT Office Visit Rheumatology [address] [place] [address] Mendel Wilson MD [facility]0 [facility] [place] [address] 05/26/2024 10:30 AM EDT Office Visit Cardiology, [facility] 132 [facility] [place] [address] Dmitri Greenfield, DO 132 [facility] [place] [address] Scheduled Procedures Name Priority Associated Diagnoses Date/Ti me COLONOSCOPY FLEXIBLE PROXIMAL DIAGNOSTIC Recall Hx of colonic polyps Health Maintenance Due Date Last Done Comments CKD PHOS USE SMARTSET 58873 02/23/1963 DXA Scan 01/10/2021 01/10/2019, 12/0 12/2005, [...] Additional history exists CKD HGB USE SMARTSET 48989 12/24/202412/24, 12/25/2023, 09/09/2023, Additional history exists DTaP,Tdap,and Td Vaccines (3 - Td or Tdap) 12/04/2026 12/04/2016, 12/03/2006, 12/15/1996, Additional history exists Pneumococcal Vaccine: 65+ Years Completed 10/02/2014, 09/01/2011, 07/07/2006 RETIRED - COLONOSCOPY-EVERY 5 YRS AGES 18-100 Discontinued 01/21/2019, 01/21/2019, 05/10/2013, Additional history exists Zoster Vaccines Completed 01/05/2020, 08/05, 10/02/2014 Diabetic Foot Exam Discontinued 12/18/2023, 12/24/2022 VITAMIN D LEVEL ONCE IN A LIFETIME-USE SMARTSET# [id number] Completed 12/25/2023, 05/27/2021, 09/07/2019, Additional history exists [...] Procedure Name Priority Date/Time Associated Diagnosis Comments DIABETIC EYE EXAM Routine 02/01/2024 documented in this encounter Results * DIABETIC EYE EXAM (02/01/2024) 02/01/2024 History Per Patient OTHER OUTSIDE LAB (SEE SCANNED REPORT) documented in this encounter Care Teams Cafeteria Counter Attendant Relationship Specialty Start Date End Date Rhianna Huitron DO [address] [place] [facility] [place] [address] PCP - General Family Medicine 07/11/19 documented as of this encounter
--- OUTSIDE RECORDS SUMMARY | 2024-04-01 00:16 | External Medical Summary | Summary of Care ---
Author Name Unknown Organization [facility] Address [address] [facility] [address] Phone [phone] Care Team Providers Care Shadow Graph Weight Operator Name Role Phone Elana Rhiannajason Rebollar DO Primary Care Provider [phone] Reason for Visit * Reason Onset Date Comments Appointment 11/19/2023 Reschedule nurse appt Encounter Details Date Type Department Care Team (Late st Contact Info) Description 11/19/2023 Telephone Urology Samy Bhatt [address] Quinn [facility] [address] [place] [address] Vinay Sexton MD [address] [place] [address] Appointment (Reschedule nurse appt ) Allergies Active Allergy Reactions Criticality Noted Date Comments Brent Inhibitors Cough Low 11/26/2017 Alendronate Sodium Muscle pain 04/11/2019 Heartburn, constipation, joint pain Misoprostol Diarrhea 08/08/2003 Niacin Er 11/26/2010 Gas, hot flashes Pollen 01/01/2018 Watery eyes, sneezing Pravastatin 02/26/2007 Upset stomach, all .Statins Simvastatin 02/26/2007 Upset stomach documented as of this encounter (statuses as of 02/18/2024) Medications Medication Sig Dispensed Refills Start Date [...] THE MORNING 90 Tablet 3 09/21/2023 Active [employer] In Vitro Strip (Glucose Blood) Type 2 diabetes, check blood sugars 2 times a day, in am and pm. 100 Strip 1 11/06/2023 Active documented as of this encounter (statuses as of 02/18/2024) Active Problems Problem Noted Date Diagnosed Date [...] glucose 12/16/2005 Macular degeneration 12/02/1999 DISC DIS [id number] documented as of this encounter (statuses as of 02/18/2024) Resolved Problems Problem Noted Date Diagnosed Date [...] colonoscopy in 5 years ARTHRITIS,RHEUMATOID 07/07/2006 016 [id number] 07/07/200611/01 Overview: Renamed Per Clinical Trials Billing Project. Pt is a participant in the [employer] (Consortium of Rhe[place] national data collection study. For further information please call Dr Hari Clark or Julia White, RN, CCRC at [phone] [employer] RESEARCH OTHER*[id number] 07/07/2006 01/28/2010 Overview: Renamed Per Clinical Trials Billing Project. Pt is a participant in the [employer] (Consortium of Rheumatology [place] national data collection study. For further information please call Dr Hari Clark or Julia White RN, CCRC at [phone] Hearing loss 12/02/1999 03/29/2013 documented as of this encounter (statuses as of 02/18/2024) Immunizations Name Administration Dates Next Due COVID-19 [...] Miscellaneous Notes * Telephone Encounter - Imani Rizvi LPN - 11/19/2023 3:19 PM EDT Patient gets Eligard injections at [facility]; forwarding to nurse to schedule. * Telephone Encounter - Bethany Vega OSA - 11/19/2023 3:08 PM EDT Patient cannot make appt with nurse on 12/22/23 looking to have rescheduled for any day that week except the documented in this encounter Plan of Treatment Upcoming Encounters Date Type Department Care Team (Late st Contact Info) Description 03/14/2024 11:15 AM EDT Office Visit Urology, [facility] 132 [facility] [place] [address] Vinay Sexton MD [address] [place] [address] 03/21/2024 9:00 AM EDT Laboratory Laboratory, [place] [address] [place] [address] [facility] [address] [place] [address] 03/28/2024 2:00 PM EDT Office Visit Hematology/Oncology [facility] [place] 200 [facility] [place] [address] Korin Fisher CRNP 400 [facility] [place] [address] 05/03/2024 9:00 AM EDT [facility] [place] [address] [place] Nurse Urology [facility] 132 [facility] [place] [address] 05/13/2024 11:50 AM EDT Office Visit Family [facility], [place] [address] [place] [phone] Rhianna Huitron DO [address] [place] [address] 05/19/2024 10:20 AM EDT Office Visit Rheumatology [place] [address] [facility] [place] [address] Mendel Wilson MD [address] [place] [address] [place] [address] 05/26/2024 10:30 AM EDT Office Visit Cardiology, [facility] 132 [facility] [place] [address] Dmitri Greenfield, DO [address] [facility] [place] [address] Scheduled Procedures Name Priority Associated Diagnoses Date/Ti me COLONOSCOPY FLEXIBLE PROXIMAL DIAGNOSTIC Recall Hx of colonic polyps Health Maintenance Due Date Last Done Comments CKD PHOS USE SMARTSET 74289 02/23/1963 DXA Scan 01/10/2021 01/10/2019, 12/2005, 07/07/2006 [...] Additional history exists CKD HGB USE SMARTSET 33998 12/24/202412/24, 12/25/2023, 09/09/2023, Additional history exists DTaP,Tdap,and Td Vaccines (3 - Td or Tdap) 12/04/2026 12/04/2016, 12/03/2006, 12/15/1996, Additional history exists Pneumococcal Vaccine: 65+ Years Completed 10/02/2014, 09/01/2011, 07/07/2006 RETIRED - COLONOSCOPY-EVERY 5 YRS AGES 18-100 Discontinued 01/21/2019, 01/21/2019, 05/10/2013, Additional history exists Zoster Vaccines Completed 01/05/2020, 08/05, 10/02/2014 Diabetic Foot Exam Discontinued 12/18/2023, 12/24/2022 VITAMIN D LEVEL ONCE IN A LIFETIME-USE SMARTSET# [id number] Completed 12/25/2023, 05/27/2021, 09/07/2019, Additional history exists [...] filedocumented as of this encounter Care Teams Shadow Graph Weight Operator Relationship Specialty Start Date End Date Rhianna Huitron DO [address] [place] [address] PCP - General Family Medicine 07/11/19 documented as of this encounter
--- OUTSIDE RECORDS SUMMARY | 2024-04-01 00:16 | External Medical Summary | Summary of Care ---
Author Name Unknown Organization [facility] Address [address] [facility] [address] Phone [phone] Care Team Providers Care Radio Program Director Name Role Phone Rhianna Huitron DO Primary Care Provider [phone] Reason for Visit * Reason Comments eRx-Medication Refill Encounter Details Date Type Department Care Team (Late st Contact Info) Description 02/01/2024 Refill Rheumatology [facility] [address] [place] [address] Alex Dempsey MD [address] [facility] [place] [address] Arthritis, rheumatoid (HCC) Allergies Active Allergy Reactions Criticality Noted Date Comments Brent Inhibitors Cough Low 11/26/2017 Alendronate Sodium Muscle pain 04/11/2019 Heartburn, constipation, joint pain Misoprostol Diarrhea 08/08/2003 Niacin Er 11/26/2010 Gas, hot flashes Pollen 01/01/2018 Watery eyes, sneezing Pravastatin 02/26/2007 Upset stomach, all .Statins Simvastatin 02/26/2007 Upset stomach documented as of this encounter (statuses as of 02/02/2024) Medications Medication Sig Dispensed Refills Start Date [...] 09/18/2023 Active Entresto 24-26 MG Oral Tablet (sacubitril-vals navarro 24-26 mg per tab) Take 1 Tablet by mouth in the morning and 1 Tablet before bedtime. 180 Tablet 3 09/18/2023 Active Rosuvastatin Calcium 5 MG Oral Tablet (Crestor) Take 1 Tablet by mouth in the morning. 90 Tablet 3 09/18/2023 Active Folic Acid 1 MG Oral TabletIndication s:Arthritis, rheumatoid (HCC) TAKE 1 TABLET BY MOUTH EVERY DAY IN THE MORNING 90 Tablet 3 09/21/2023 Active Snip2Code In Vitro Strip (Glucose Blood) Type 2 [...] 12/23/2023 Active Methotrexate Sodium 2.5 MG Oral TabletIndication s:Arthritis, rheumatoid (HCC) TAKE 5 TABLETS BY MOUTH ONCE WEEKLY 65 Tablet 1 02/02/2024 Active Methotrexate Sodium 2.5 MG Oral TabletIndication s:Arthritis, rheumatoid (HCC) TAKE 5 TABLETS BY MOUTH ONCE WEEKLY 65 Tablet 1 08/11/2023 4 Discontinued documented as of this encounter (statuses as of 02/02/2024) Active Problems Problem Noted Date Diagnosed Date [...] glucose 12/16/2005 Macular degeneration 12/02/1999 DISC DIS [id number] documented as of this encounter (statuses as of 02/02/2024) Resolved Problems Problem Noted Date Diagnosed Date [...] colonoscopy in 5 years ARTHRITIS,RHEUMATOID 07/07/2006 016 [id number] 07/07/200611/01 Overview: Renamed Per Clinical Trials Billing Project. Pt is a participant in the [facility] (Consortium of Rheumatology Researchers of [place]) national data collection study. For further information please call Dr Hari Clark or Julia White, RN, CCRC at [phone] [facility] RESEARCH OTHER*[id number] 07/07/2006 01/28/2010 Overview: Renamed Per Clinical Trials Billing Project. Pt is a participant in the [facility] (Consortium of Rheumatology Researchers of [place]) national data collection study. For further information please call Dr Hari Clark or Julia White, RN, CCRC at [phone] Hearing loss 12/02/1999 03/29/2013 documented as of this encounter (statuses as of 02/02/2024) Immunizations Name Administration Dates Next Due COVID-19 [...] Miscellaneous Notes * Telephone Encounter - Steve Faustin RPh - 02/02/2024 11:33 AM EDTSigned Prescriptions: Disp Refills Methotrexate Sodium 2.5 MG Oral Tablet 65 Tab*1 Sig: TAKE 5 TABLETS BY MOUTH ONCE WEEKLYAuthorizing Provider: ALEX DEMPSEY User: STEVE FAUSTIN------ * Telephone Encounter - Steve Faustin RPh - 02/02/2024 11:25 AM EDT Rheumatology: Refill Request(s) Per review of the refill parameters, Medication was refilled Steve Faustin RPh [facility] Clinical Pharmacist Rheumatology Department 02/02/2024,11:25 AM * Telephone Encounter - Thiago Davidson - 02/01/2024 4:18 AM EDTPending Prescriptions: Disp Refills Methotrexate Sodium 2.5 MG Oral Tablet [Ph*65 Tab*1 Sig: TAKE 5 TABLETS BY MOUTH ONCE WEEKLY * Telephone Encounter - Thiago Davidson - 02/01/2024 4:16 AM EDT Did you pend patient's preferred pharmacy and medication before forwarding?yes Pharmacy: [id number] Pending Prescriptions: Disp Refills Methotrexate Sodium 2.5 MG Oral Tablet [P*65 Tab*1 Sig: TAKE 5 TABLETS BY MOUTH ONCE WEEKLY Last Visit: 09/10/2023 (in office), Visit date not found (telemedicine) Next Visit: 05/19/2024 If no future appointments scheduled, and last appointment is greater than a year ago, please schedule patient for a follow-up appointment Last date the medication was ordered: 08/11/2023 Is this request for a controlled substance?No Urine Drug Screen:No results found for this or any previous visit. Patient Phone Numbers Labs: Lab Results Component Value Date/Time CREAT 1.4 (H) 12/25/2023 02:31 PM CREAT 1.05 02/27/2021 12:00 AM CREAT 1.1 07/11/2019 01:37 PM POTASSIUM 4.6 12/25/2023 02:31 PM POTASSIUM 4.3 10/12/2020 12:00 AM POTASSIUM 4.7 04/25/2019 09:53 AM TSH 3.27 09/29/2013 10:54 AM LDLCALC 102 12/24/2022 09:21 AM LDLCALC 104 (A) 07/09/2020 12:00 AM LDLCALC 119 10/19/2018 09:42 AM LDLDIRECT NOT APPLICABLE 10/19/2018 09:42 AM ALT 16 12/25/2023 02:31 PM ALT 24 07/11/2019 01:37 PM HGBA1C 6.0 (H) 11/06/2023 11:47 AM HGBA1C 6.0 (H) 10/12/2020 12:00 AM HGBA1C 6.3 (H) 10/19/2018 09:42 AM documented in this encounter Plan of Treatment Upcoming Encounters Date Type Department Care Team (Late st Contact Info) Description 03/14/2024 11:15 AM EDT Office Visit Urology, [facility] [address] [facility] [place] [address] Vinay Sexton MD [address] [place] [address] 03/21/2024 9:00 AM EDT Laboratory Laboratory, [place] [address] [place], [place] [address] [phone] [address] [place] [address] 03/28/2024 2:00 PM EDT Office Visit Hematology/Oncology [facility] [address] [facility] [phone] Korin Fisher CRNP [address] [place], [place] [address] [address] 05/03/2024 9:00 AM EDT Nurse Only Urology, [facility] 132 [facility] [place] [address] [place], Nurse Urology [facility] [address] [place] [address] 05/13/2024 11:50 AM EDT Office Visit [facility] [address] [place] [address] Rhianna Huitron DO [address] [place] [address] 05/19/2024 10:20 AM EDT Office Visit Rheumatology [address] [place] [address] Alex Dempsey MD [address] [place] [address] [place] [address] 05/26/2024 10:30 AM EDT Office Visit Cardiology, [facility] [address] [facility] [place] [address] Dmitri Greenfield, 132 [facility] [place] [address] Scheduled Procedures Name Priority Associated Diagnoses Date/Ti me COLONOSCOPY FLEXIBLE PROXIMAL DIAGNOSTIC Recall Hx of colonic polyps Health Maintenance Due Date Last Done Comments CKD PHOS USE SMARTSET 47298 02/23/1963 DXA Scan 01/10/2021 01/10/2019, 12/2005, 07/07/2006 [...] Additional history exists CKD HGB USE SMARTSET 02148 12/24/202412/24, 12/25/2023, 09/09/2023, Additional history exists DTaP,Tdap,and [...] D LEVEL ONCE IN A LIFETIME-USE SMARTSET# 43151 Completed 12/25/2023, 05/27/2021, 09/07/2019, Additional history exists [...] arthritis documented in this encounter Care Teams Radio Program Director Relationship Specialty Start Date End Date Rhianna Huitron DO [address] [place] [address] PCP - General Family Medicine 07/11/19 documented as of this encounter
--- OUTSIDE RECORDS SUMMARY | 2024-04-01 00:16 | External Medical Summary | Summary of Care ---
Author Name Unknown Organization [facility] Address [address] [facility] [address] Phone [phone] Care Team Providers Care Commissary Agent Name Role Phone Rhianna Huitron DO Primary Care Provider [phone] Reason for Visit * Precert (Within 30 days (routine)) - Authorized Specialty Diagnoses / Procedures Referred By Contac t Referred To Contact Urology Diagnoses Malignant neoplasm of prostate (HCC) Procedures LA LEUPROLIDE ACETATE SUSPNSION Vinay Sexton MD [address] [place] [address] Vinay Sexton MD [address] [place] [address] Referral ID Status Reason Start Date Expiration Date V isits Requested Visits Authorized [id number] Authorized Precert 11/19/2023 11/18/2024 2 2 Encounter Details Date Type Department Care Team (Late st Contact Info) Description 12/29/2023 9:30 AM EDT Nurse Only Urology, [facility] [address] [place] [address] Nurse Garrett Urology [place] [address] [place] [address] Allergies Active Allergy Reactions Criticality Noted Date Comments Brent Inhibitors Cough Low 11/26/2017 Alendronate Sodium Muscle pain 04/11/2019 Heartburn, constipation, joint pain Misoprostol Diarrhea 08/08/2003 Niacin Er 11/26/2010 Gas, hot flashes Pollen 01/01/2018 Watery eyes, sneezing Pravastatin 02/26/2007 Upset stomach, all .Statins Simvastatin 02/26/2007 Upset stomach documented as of this encounter (statuses as of 12/29/2023) Medications Medication Sig Dispensed Refills Start Date [...] THE MORNING 90 Tablet 3 09/21/2023 Active Tee Ricardo In Vitro Strip (Glucose Blood) Type 2 [...] EVERY MORNING 90 Capsule 3 12/23/2023 Active Hospital, Clinic, or Other Facility Administered Medication Ordered Dose Route Frequency Start Date End Date Status Leuprolide Acetate (4 Month) (Lupron) inj 30 mgIndications:Prostate cancer (HCC) 30 mg IM ONCE 12/29/2023 12/29/2023 Ended documented as of this encounter (statuses as of 12/29/2023) Active Problems Problem Noted Date Diagnosed Date [...] glucose 12/16/2005 Macular degeneration 12/02/1999 DISC DIS [id number] documented as of this encounter (statuses as of 12/29/2023) Resolved Problems Problem Noted Date Diagnosed Date [...] colonoscopy in 5 years ARTHRITIS,RHEUMATOID 07/07/2006 016 [id number] 07/07/200611/01 Overview: Renamed Per Clinical Trials Billing Project. Pt is a participant in the [facility] (Consortium of Rheumatology Researchers [place]) national data collection study. For further information please call Dr Hari Clark or Julia White, RN, CCRC at [phone] [facility] RESEARCH OTHER*[id number] 07/07/2006 01/28/2010 Overview: Renamed Per Clinical Trials Billing Project. Pt is a participant in the [facility] (Consortium of Rheumatology Researchers [place] national data collection study. For further information please call Dr Hari Clark or Julia White, RN, CCRC at [phone] Hearing loss 12/02/1999 03/29/2013 documented as of this encounter (statuses as of 12/29/2023) Immunizations Name Administration Dates Next Due COVID-19 mRNA, LNP-s, No Pre serve, 2-Dose Series ([employer]) 06/14/2021,10/10/2020,09/12/2020 COVID-19, LNP-s, No Preserve , Yousuf-sucrose, Ages 12+ (Pfizer) 12/25/2021 Covid-19, Mrna, Lnp-s, Pf, B ivalent, 30 Mcg, IM, 12 yrs and above ([employer]) 05/23/2022 Pneumococcal Conjugate Vacc, 13 Valent (Prevnar) [...] Nursing Notes * Elena Figueroa LPN - 12/29/2023 9:26 AM EDT Leuprolide acetate 30 Mg was given IM in LVG documented in this encounter Plan of Treatment Upcoming Encounters Date Type Department Care Team (Late st Contact Info) Description 03/14/2024 11:15 AM EDT Office Visit Urology, [facility] 132 [facility] [place] [address] Vinay Sexton MD [address] [place] [address] [place] [address] 03/21/2024 9:00 AM EDT Laboratory Laboratory, [place] [address] [place] [facility] [place] [phone] [facility] [address] [place] [address] 03/28/2024 2:00 PM EDT Office Visit Hematology/Oncology [facility] [address] [facility] [phone] Korin Fisher CRNP [address] [place] [address] [place] [address] 05/03/2024 9:00 AM EDT Nurse Only Urology, [facility] [address] [facility] [place] [address] Nurse Garrett Urology [facility] [address] [place] [address] 05/13/2024 11:50 AM EDT Office Visit [facility] [address] [facility] [phone] Rhianna Huitron, DO [address] [place] [address] 05/19/2024 10:20 AM EDT Office Visit Rheumatology [facility] [address] [facility] [place] [address] Mendel Wilson MD [address] [place] [address] 05/26/2024 10:30 AM EDT Office Visit Cardiology, [facility] [address] [place] [address] Dmitri Greenfield, DO [address] [place] [address] Scheduled Procedures Name Priority Associated Diagnoses Date/Ti me COLONOSCOPY FLEXIBLE PROXIMAL DIAGNOSTIC Recall Hx of colonic polyps Health Maintenance Due Date Last Done Comments CKD PHOS USE SMARTSET 42260 02/23/1963 DXA Scan 01/10/2021 01/10/2019, 12/2005, 07/07/2006 [...] Additional history exists CKD HGB USE SMARTSET 71876 12/24/202412/24, 12/25/2023, 09/09/2023, Additional history exists DTaP,Tdap,and [...] D LEVEL ONCE IN A LIFETIME-USE SMARTSET# 27731 Completed 12/25/2023, 05/27/2021, 09/07/2019, Additional history exists [...] 30 mg 30 mg, Intramuscular, ONCE, On Thu12/29/23 at 1015, For 1 dose Given 12/29/2023 9:36 AM EDT 30 mg Ventrogluteal Left documented in this encounter Care Teams Commissary Agent Relationship Specialty Start Date End Date Rhianna Huitron DO [address], [place] [phone] PCP - General Family Medicine 12/9/19 documented as of this encounter
--- OUTSIDE RECORDS SUMMARY | 2024-04-01 00:16 | External Medical Summary | Summary of Care ---
Author Name Unknown Organization [facility] Address [address] [facility] [address] Phone [phone] Care Team Providers Care Hairspring Studder Name Role Phone Rhianna Huitron DO Primary Care Provider [phone] Encounter Details Date Type Department Care Team (Late st Contact Info) Description 12/30/2023 Telephone Hematology/Oncology [facility] [address] [facility] [address] Korin Fisher CRNP [address] [facility] [place] [address] Allergies Active Allergy Reactions Criticality Noted Date Comments Brent Inhibitors Cough Low 11/26/2017 Alendronate Sodium Muscle pain 04/11/2019 Heartburn, constipation, joint pain Misoprostol Diarrhea 08/08/2003 Niacin Er 11/26/2010 Gas, hot flashes Pollen 01/01/2018 Watery eyes, sneezing Pravastatin 02/26/2007 Upset stomach, all .Statins Simvastatin 02/26/2007 Upset stomach documented as of this encounter (statuses as of 12/31/2023) Medications Medication Sig Dispensed Refills Start Date [...] as of this encounter (statuses as of 12/31/2023) Active Problems Problem Noted Date Diagnosed Date [...] glucose 12/16/2005 Macular degeneration 12/02/1999 DISC DIS [id number] documented as of this encounter (statuses as of 12/31/2023) Resolved Problems Problem Noted Date Diagnosed Date [...] colonoscopy in 5 years ARTHRITIS,RHEUMATOID 07/07/2006 016 [id number] 07/07/200611/01 Overview: Renamed Per Clinical Trials Billing Project. Pt is a participant in the [employer] (Consortium of Rheumatology Researchers [place] national data collection study. For further information please call Dr Hari Clark or Julia Wihte, RN, CCRC at [phone] [facility] RESEARCH OTHER*[id number] 07/07/2006 01/28/2010 Overview: Renamed Per Clinical Trials Billing Project. Pt is a participant in the [employer] (Consortium of Rheumatology Researchers [place] national data collection study. For further information please call Dr Hari Clark or Julia White, RN, CCRC at [phone] Hearing loss 12/02/1999 03/29/2013 documented as of this encounter (statuses as of 12/31/2023) Immunizations Name Administration Dates Next Due COVID-19 [...] 08/03/1989 TDAP (age 10 and older)(Boostrix) 12/04/2016 TDAP, [...] Telephone Encounter - Alissa Beebe RN - 12/31/2023 7:41 AM EDT MyG sent. Scheduling: please add vitamin D to lab appt note in March. Thanks! * Telephone Encounter - Korin Fisher CRNP [...] 11:15 AM EDT Office Visit Urology, [facility] 132 [facility] [place] [address] Vinay Sexton MD [address] [place] [phone] 03/21/2024 9:00 AM EDT Laboratory Laboratory, [place] [address] [place] [address] [facility] [address] [place], [place] [phone] 03/28/2024 2:00 PM EDT Office Visit Hematology/Oncology [facility] 200 [place] [address] Korin Fisher CRNP [address] [facility] [place] [address] 05/03/2024 9:00 AM EDT Nurse Only Urology, [facility] [address] [facility] [place] [address] [facility], Nurse Urology [facility] 132 [facility] [place] [address] 05/13/2024 11:50 AM EDT Office Visit [facility] [address] [place] [phone] Rhianna Huitron DO [address] [place], [place] [address] 05/19/2024 10:20 AM EDT Office Visit Rheumatology [facility] [address] [facility] [place] [address] Mendel Wilson MD [address] [place] [address] 05/26/2024 10:30 AM EDT Office Visit Cardiology, [facility] [address] [place] [address] Dmitri Greenfield, [address] [place] [address] Scheduled Orders Name Type Priority Associated Diagnoses Orde r Schedule 25-HYDROXY VITAMIN D Lab STAT Prostate cancer (HCC) Vitamin D deficiency Expected: 03/31/2024 (Approximate), Expires: 12/29/2024 Scheduled Procedures Name Priority Associated Diagnoses Date/Ti me COLONOSCOPY FLEXIBLE PROXIMAL DIAGNOSTIC Recall Hx of colonic polyps Health Maintenance Due Date Last Done Comments CKD PHOS USE SMARTSET 33284 02/23/1963 DXA Scan 01/10/2021 01/10/2019, 12/2005, 07/07/2006 [...] Additional history exists CKD HGB USE SMARTSET 93598 12/24/202412/24, 12/25/2023, 09/09/2023, Additional history exists DTaP,Tdap,and [...] D LEVEL ONCE IN A LIFETIME-USE SMARTSET# 05450 Completed 12/25/2023, 05/27/2021, 09/07/2019, Additional history exists [...] deficiency documented in this encounter Care Teams Hairspring Studder Relationship Specialty Start Date End Date Rhianna Huitron DO [address] [place] [address] PCP - General Family Medicine 07/11/19 documented as of this encounter
--- OUTSIDE RECORDS SUMMARY | 2024-04-01 00:16 | External Medical Summary | Summary of Care ---
Author Name Unknown Organization [facility] Address [address] [facility] [address] Phone [phone] Care Team Providers Care Tune Up Mechanic Name Role Phone Rhianna Huitron DO Primary Care Provider [phone] Reason for Visit * Reason Comments Follow Up Encounter Details Date Type Department Care Team (Late st Contact Info) Description 12/25/2023 2:00 PM EDT Office Visit Hematology/Oncology [facility] [address] [place] [address] Korin Fisher CRNP [address] [facility] [place] [address] Prostate cancer (HCC)* Allergies Active Allergy Reactions [...] EVERY MORNING 90 Capsule 3 12/23/2023 Active Amoxicillin-Pot Clavulanate 500-125 MG Oral Tablet (Augmentin) Take 1 Tablet by mouth in the morning and 1 Tablet before bedtime. Do all this for 10 days. 20 Tablet 12/18/2023 12/28/2023 documented as of this encounter (statuses as [...] glucose 12/16/2005 Macular degeneration 12/02/1999 DISC DIS [id number] documented as of this encounter (statuses as [...] colonoscopy in 5 years ARTHRITIS,RHEUMATOID 07/07/2006 016 [id number] 07/07/200611/01 Overview: Renamed Per Clinical Trials Billing Project. Pt is a participant in the [facility] (Consortium of Rheumatology Researchers of [place]) national data collection study. For further information please call Dr Hari Clark or Julia White, RN, CCRC at [phone] [facility] RESEARCH OTHER*[id number] 07/07/2006 01/28/2010 Overview: Renamed Per Clinical Trials Billing Project. Pt is a participant in the [facility] (Consortium of Rheumatology Researchers of [facility]) national data collection study. For further information please call Dr Hari Clark or Julia White, RN, CCRC at [phone] Hearing loss 12/02/1999 03/29/2013 documented as of this encounter (statuses as of 12/30/2023) Immunizations Name Administration Dates Next Due COVID-19 mRNA, LNP-s, No Pre serve, 2-Dose Series (360pi) 06/14/2021,10/10/2020,09/12/2020 COVID-19, LNP-s, No Preserve , Yousuf-sucrose, [...] Sign Reading Time Taken Comments Blood Pressure 108/55 12/25/2023 1:49 PM EDT Pulse 77 12/25/2023 1:49 PM EDT Temperature 36.8 C (98.2 F) 12/25/2023 1:49 PM ED T Respiratory Rate 18 12/25/2023 1:49 PM EDT Oxygen Saturation 95% 12/25/2023 1:49 PM EDT Inhaled Oxygen Concentration - - Weight 137.9 kg (304 lb) 12/25/2023 1:49 PM EDT Height - - Body Mass Index 38.51 09/09/2023 10:58 AM EST documented in this encounter Progress Notes * Phillip Korin Khan, SHEEBA - 12/25/2023 2:00 PM EDT Hematology/Oncology Outpatient Clinic note [facility] [place] [address] [place] [address] Name: Markus Wharton Date: 12/25/2023 CHIEF COMPLAINT: Markus Wharton is a 78 year old male here today for f/u visit today. Patient of Dr. Patrice Puente. From Patient chart confirmed with patient. From Dr. Patrice Puente note 09/09/23. HEMATOLOGY/ONCOLOGY DIAGNOSIS: Prostate cancer, [place] score 4+5, right iliac chain lymph node measuring about 2 cm in the imaging study. PSA was around 8.49 in December 2022 DATE OF DIAGNOSIS: 03/16/23 TREATMENT HISTORY: He completed radiation treatment at [facility] on 06/08/2023. -could not tolerate Casodex, he took It for about 1 week before that but he stopped because of somedizziness and some noticed some blood in the stool which may not be related to that. Zytiga and prednisone combination. (Started on 04/27/2024 - 09/01/2023) -discontinued during admission at [facility] for acute IA, post stent placement. CURRENT TREATMENT: Received 1st treatment with Lupron (30 mg ) on 04/08/2023. - will continue Lupron every 4 monthly under the guidance of Dr. Sexton. DIAGNOSTIC WORKUP: - PSA--> 5.1 ( 04/10/2022)--> 8.49 (12/10/2022). Biopsy from the prostate gland on 03/16/2023 ) --> prostatic adenocarcinoma [place] score 4+5, all 15 cores positive for [...] with Bactrim antibiotic at that time. -hypertension. 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 -Chronic renal insufficiency, now serum creatinine level is around 1.5 mg/dL. Component Latest Ref Rng 12/10/2022 04/10/2023 06/08/2023 09/09/2023 11/06/2023 PSA <4.10 ng/mL 8.49 (H) 4.38 (H) 0.19 0.10 0.06 HISTORY OF PRESENT ILLNESS: Markus Wharton is a 78 year old male with a history as outlined above. Currently here for f/u visit today. Patient feeling well today. Only complaint today is fatigue. Does have night sweats but denies they are drenching. Does get periodic hot flashes which are tolerable. Patient does not take calcium d/t problems with constipation. Was previously unable to tolerate Fosamax. Is not interested in trying anything else for osteoporosis. Ambulating with a cane. Denies any new aches or pains. Weight is stable. Continues to self cath and doing well with this. Past Medical History: Diagnosis Date Arthritis, rheumatoid [...] performed by Teddy Rizvi MD at [facility] COLONOSCOPY, DIAGNOSTIC (RECTUM) 01/21/2019 diverticulosis, repeat 5 yrs/COLONOSCOPY FLEXIBLE PROXIMAL DIAGNOSTIC performed by Teddy Rizvi MD at [facility]COPY [facility] REMOVE TONSILS & ADENOIDS, AGE 12+ 1980 Tonsillectomy/Adenoids,12+ Y/O Social History Socioeconomic History Marital status: Spouse name: Keyanna Number of children: 2 Years of education: Not on file Highest education level: Not on file Occupational History Employer: [employer] Tobacco Use Smoking status: Former Current packs/day: 0.00 Average packs/day: 1 pack/day for 35.0 years (35.0 ttl pk-yrs) Types: Cigarettes Start date: 08/03/1962 Quit date: 08/03/1997 Years since quittin.4 Passive exposure: Past Smokeless tobacco: Never Tobacco comments: occasional cigar Vaping Use Vaping status: Never Used Substance and Sexual Activity Alcohol use: Not [...] on file Housing Stability: Not on file Review of patient's allergies indicates: Allergen Reactions Fosamax [Alendronate Sodium] Muscle pain Heartburn, constipation, joint pain Misoprostol Diarrhea Niaspan [Niacin Er] Gas, hot flashes Pollen Watery eyes, sneezing Pravastatin Upset stomach, all .Statins Simvastatin Upset stomach Brent Inhibitors Cough Current Outpatient Medications Medication Sig Dispense Refill ASPIR-81 81 MG PO TBEC 1 TABLET DAILY 0 Methotrexate Sodium 2.5 MG Oral Tablet TAKE 5 TABLETS BY MOUTH ONCE WEEKLY 65 Tablet 1 Acetaminophen 325 MG Oral Tablet (Tylenol) 2 [...] and one at bedtime 252 Tablet 3 Amoxicillin-Pot Clavulanate 500-125 MG Oral Tablet (Augmentin) Take 1 Tablet by mouth in the morning and 1 Tablet before bedtime. Do all this for 10 days. 20 Tablet 0 Tamsulosin HCl 0.4 MG Oral Capsule (Flomax) TAKE 1 CAPSULE BY MOUTH EVERY MORNING 90 Capsule 3 No current facility-administered medications for this visit. REVIEW OF SYSTEMS: See HPI - otherwise negative OBJECTIVE: Filed Vitals: 12/25/23 1349 BP: 108/55 Pulse: 77 Resp: 18 Temp: 36.8 C (98.2 F) TempSrc: Tympanic SpO2: 95% Weight: (!) 137.9 kg (304 lb) Wt Readings from Last 5 Encounters: 12/25/23 (!) 137.9 kg (304 lb) 12/18/23 135.6 kg (299 lb) 12/08/23 134.2 kg (295 lb 12.8 oz) 11/06/23 136.1 kg (300 lb) 09/18/23 134.7 kg (297 lb) PHYSICAL EXAM: ECOG: Performance Status 1 = 80-90% Symptoms but nearly ambulatory General Appearance: Normal - Healthy appearing patient in no acute distress Lymph Nodes: Normal - No palpable lymph nodes in the neck or supraclavicular areas Lungs/Thorax: Normal - Clear to auscultation Heart: Normal - Regular rate and rhythm, normal S1, S2, no appreciable murmurs Pulses/Extremities: Normal - 2+ throughout and symmetrical, no edema Neurologic: alert and oriented x 4, ambulating with cane LABS: N/A IMAGING: CT A/P 09/28/23: LINES AND DEVICES: None LIVER: Calcified granuloma within the liver. BILE DUCTS: Unremarkable GALLBLADDER: Unremarkable PANCREAS: Unremarkable SPLEEN: Unremarkable ADRENALS: Unremarkable KIDNEYS/URETERS: No hydroureteronephrosis. BLADDER: Diffuse bladder wall thickening with perivesicular fat stranding. Bladder diverticulum. BOWEL: No obstructive bowel. Duodenal diverticulum. Colonic diverticulosis. Normal appendix. LYMPH NODES: Interval resolution of previously seen enlarged right iliac chain lymph node. VESSELS: Atherosclerotic calcification of the abdominal aorta and its major branches. REPRODUCTIVE ORGANS: Dystrophic calcification within the prostate gland. PERITONEUM/RETROPERITONEUM: Unremarkable ABDOMINAL WALL/SOFT TISSUES: Small fat containing umbilical hernia. BONES: No significant change in sclerotic lesion in the L3 vertebral body. Degenerated changes of the spine. IMPRESSION IMPRESSION 1. No hydroureteronephrosis. 2. Diffuse bladder wall thickening with perivesicular fat stranding, which may be related to post-radiation changes versus infectious process. Recommend correlation with urinalysis. IMPRESSION/PLAN: Metastatic Prostate Cancer Patient feeling clinically well today and physical exam is unremarkable No lab work available for today's visit. Will have cbc/diff, cmp, PSA and vitamin d level drawn today. CT A/P 09/28/23 reviewed: shows resolution of previously enlarged right iliac chain lymph node. No change in sclerotic lesion in L3 vertebrae. Noted PSA continued to trend down. Will continue to hold Zytiga and prednisone at this time, he will continue to have Lupron therapy under the guidance of Dr. Sexton. Next scheduled 12/28. Will consider for restarting Zytiga and prednisone if he has significant rise in the PSA level in the future. RTC in three months with provider with cbc/diff, cmp and psa SHEEBA Jean-Baptiste documented in this encounter Nursing Notes * Claudia Batista MED ASSIST - 12/25/2023 1:49 PM EDT Patient identifed by name and birthdate Do you have any concerns about pain management for today's visit? Yes. Patient instructed to discuss pain concerns with provider during the visit today Living Will or Advance Directive for Health Care as noted on the problem list. [facility] is a way you can talk to your provider on line through e-mail. Would you like to sign up? I can activate it for you? ALREADY ACTIVE Filed Vitals: 12/25/23 1349 BP: 108/55 Pulse: 77 Resp: 18 Temp: 36.8 C (98.2 F) TempSrc: Tympanic SpO2: 95% Weight: (!) 137.9 kg (304 lb) Patient was instructed to not get up [...] 11:15 AM EDT Office Visit Urology, [facility] [address] [facility] [place] [address] Vinay Sexton MD 27 [facility] [address] [place] [address] 03/21/2024 9:00 AM EDT Laboratory Laboratory, [address] [address] [facility] [address] [place] [address] 03/28/2024 2:00 PM EDT Office Visit Hematology/Oncology [facility] [place] [address] [facility] [place] [address] Korin Fisher CRNP [address] [place] [address] 05/03/2024 9:00 AM EDT Nurse Only Urology, [facility] [address] [facility] [place] [address] [place], Nurse Urology [facility] [address] [facility] [place] [address] 05/13/2024 11:50 AM EDT Office Visit [facility] [place] [address] [facility] [phone] Rhianna Huitron DO [address] [place] [address] 05/19/2024 10:20 AM EDT Office Visit Rheumatology [address] [place] [address] Mendel Wilson MD [address] [place] [address] [place] [address] 05/26/2024 10:30 AM EDT Office Visit Cardiology, [facility] [address] [facility] [place] [address] Dmitri Greenfield, [address] [facility] [place] [address] Scheduled Orders Name Type Priority Associated Diagnoses Orde r Schedule CBC WITH WBC DIFFERENTIAL Lab STAT Prostate cancer (HCC) Every 3 Months for 4 Occurrences starting 12/30/2023 until 01/23/2025 COMPREHENSIVE METABOLIC PANEL Lab STAT Prostate cancer (HCC) Every 3 Months for 4 Occurrences starting 12/30/2023 until 01/23/2025 Scheduled Procedures Name Priority Associated Diagnoses Date/Ti me COLONOSCOPY FLEXIBLE PROXIMAL DIAGNOSTIC Recall Hx of colonic polyps Health Maintenance Due Date Last Done Comments CKD PHOS USE SMARTSET 49057 02/23/1963 DXA Scan 01/10/2021 01/10/2019, 12/2005, 07/07/2006 [...] Additional history exists CKD HGB USE SMARTSET 68081 12/24/202412/24, 12/25/2023, 09/09/2023, Additional history exists DTaP,Tdap,and [...] D LEVEL ONCE IN A LIFETIME-USE SMARTSET# [id number] Completed 12/25/2023, 05/27/2021, 09/07/2019, Additional history exists [...] Not on filedocumented as of this encounter Results * 25-HYDROXY VITAMIN D (12/25/2023 2:31 PM EDT) 25-Hydroxy Vitamin D 28 >19 ng/mL 12/25/2023 11:15 PM EDT LAB[facility]ATORY [facility] Blood Venous blood specimen / Unknown Venipuncture / Unknown 12/25/2023 2:31 PM EDT 12/25/2023 2:31 PM EDT Narrative [facility]ATORY [facility] - 12/25/2023 11:15 PM EDT Deficient: <20 ng/mL Insufficient: 20-29 ng/mL Recommended/Optimum:30-50 ng/mL Vitamin D intoxication is rare. If suspicious of Vitamin D toxicity, evaluation of serum Calcium and PTH is recommended. Korin ALY LAB BLOOD ORDER [facility] [address] [place] [address] documented in this encounter Visit Diagnoses Diagnosis Prostate cancer (HCC)- Primary Malignant neoplasm of prostate documented in this encounter Care Teams Tune Up Mechanic Relationship Specialty Start Date End Date Rhianna Huitron DO [address] [place] [address] PCP - General Family Medicine 07/11/19 documented as of this encounter
--- OUTSIDE RECORDS SUMMARY | 2024-04-01 00:16 | External Medical Summary | Summary of Care ---
Author Name Unknown Organization [facility] Address [address] [facility] [address] Phone [phone] Care Team Providers Care Tong Setter Name Role Phone Rhianna Huitron DO Primary Care Provider [phone] Reason for Visit * Reason Comments Outpatient Testing Encounter Details Date Type Department Care Team (Late st Contact Info) Description 12/25/2023 2:30 PM EDT Laboratory Laboratory [facility] [place] [address] [place] [phone] [place], [address] [place] [address] Prostate cancer (HCC) Allergies Active Allergy Reactions Criticality Noted Date Comments Brent Inhibitors Cough Low 11/26/2017 Alendronate Sodium Muscle pain 04/11/2019 Heartburn, constipation, joint pain Misoprostol Diarrhea 08/08/2003 Niacin Er 11/26/2010 Gas, hot flashes Pollen 01/01/2018 Watery eyes, sneezing Pravastatin 02/26/2007 Upset stomach, all .Statins Simvastatin 02/26/2007 Upset stomach documented as of this encounter (statuses as of 12/25/2023) Medications Medication Sig Dispensed Refills Start Date [...] THE MORNING 90 Tablet 3 09/21/2023 Active OneRenatouch Verjennifer In Vitro Strip (Glucose Blood) Type 2 diabetes, check blood sugars 2 times a day, in am and pm. 100 Strip 1 11/06/2023 Active Metoprolol Succinate ER 50 MG Oral Tablet Extended Release 24 Hour (toPROL XL) Take two tablets daily in the morning and one at bedtime 252 Tablet 3 12/16/2023 Active Amoxicillin-Pot Clavulanate 500-125 MG Oral Tablet (Augmentin) Take 1 Tablet by mouth in the morning and 1 Tablet before bedtime. Do all this for 10 days. 20 Tablet 12/18/2023 12/28/2023 Active Tamsulosin HCl 0.4 MG Oral Capsule (Flomax) TAKE 1 CAPSULE BY MOUTH EVERY MORNING 90 Capsule 3 12/23/2023 Active documented as of this encounter (statuses as of 12/25/2023) Active Problems Problem Noted Date Diagnosed Date [...] glucose 12/16/2005 Macular degeneration 12/02/1999 DISC DIS [id number] documented as of this encounter (statuses as of 12/25/2023) Resolved Problems Problem Noted Date Diagnosed Date [...] colonoscopy in 5 years ARTHRITIS,RHEUMATOID 07/07/2006 016 [id number] 07/07/200611/01 Overview: Renamed Per Clinical Trials Billing Project. Pt is a participant in the [facility] (Consortium of Rheumatology Researchers of [facility]) national data collection study. For further information please call Dr Hari Calrk or Julia White, RN, CCRC at [phone] [facility] RESEARCH OTHER*[id number] 07/07/2006 01/28/2010 Overview: Renamed Per Clinical Trials Billing Project. Pt is a participant in the [facility] (Consortium of Rheumatology Researchers of [facility]) national data collection study. For further information please call Dr Hari Clark or Julia White, RN, CCRC at [phone] Hearing loss 12/02/1999 03/29/2013 documented as of this encounter (statuses as of 12/25/2023) Immunizations Name Administration Dates Next Due COVID-19 mRNA, LNP-s, No Pre serve, 2-Dose Series (Semadic) 06/14/2021,10/10/2020,09/12/2020 COVID-19, LNP-s, No Preserve , Yousuf-sucrose, [...] Description 12/29/2023 9:30 AM EDT [facility] [address] [place] [address] Nurse Stephen Tuckery [place] [address] [place] [address] 03/14/2024 11:15 AM EDT Office Visit [facility] [address] [place] [address] Vinay Sexton MD [address] [place] [address] [place] [address] 03/21/2024 9:00 AM EDT Laboratory Laboratory, [place] [address] [place] [phone] [facility] [address] [place], [place] [id number] 03/28/2024 2:00 PM EDT Office Visit Hematology/Oncology [facility] [place] [address] [place] [address] Korin Fisher CRNP [address] [facility] [place] [id number] 05/13/2024 11:50 AM EDT Office Visit Family Practice, [place] [address] [place] [address] Rhianna Huitron, DO [address] [place] [address] 05/19/2024 10:20 AM EDT Office Visit Rheumatology [place] [id number] [facility] [place] [address] Mendel Wilson MD [address] [facility] [place] [address] 05/26/2024 10:30 AM EDT Office Visit Cardiology, [facility] [address] [place] [address] Dmitri Greenfield, DO [address] [place] [address] Pending Results Name Type Priority Associated Diagnoses Date /Time PSA Lab Routine Prostate cancer (HCC) 12/25/2023 2:31 PM EDT COMPREHENSIVE METABOLIC PANEL Lab STAT Prostate cancer (HCC) 12/25/2023 2:31 PM EDT 25-HYDROXY VITAMIN D Lab Routine Prostate cancer (HCC) 12/25/2023 2:31 PM EDT Scheduled Procedures Name Priority Associated Diagnoses Date/Ti me COLONOSCOPY FLEXIBLE PROXIMAL DIAGNOSTIC Recall Hx of colonic polyps Health Maintenance Due Date Last Done Comments CKD PHOS USE SMARTSET 72899 02/23/1963 DXA Scan 01/10/2021 01/10/2019, 12/2005, 07/07/2006 Depression Screening 03/13/2021 03/13/2020 COVID-19 Vaccine ( season) 2023 05/23/2022, 12/25/2021, 06/14/2021, Additional history exists Albumin/Creatinine Ratio 04/10/2023 04/10/2022, 10/2006 *BISPHONATE OR OTHER ACCEPTABLE MEDICATION NEEDED FOR OSTEOPOROSIS (REFER TO SMARTSET #1146) 04/29/2023 Colonoscopy 01/22/2024 01/21/2019, 01/02, 05/10/2013, Additional history exists GFR 03/09/2024 09/09/2023, 08/03, 07/21/2023, Additional history exists Influenza Vaccine (FLU shot) (Season Ended) 2024 05/08/2022, 05/07/2021, 04/17/2020, Additional history exists CKD HGB USE SMARTSET 04505 09/09/202412/24, 12/25/2023, 09/09/2023, Additional history exists HbA1c 11/05/2024 11/06/2023, 06/04, 12/24/2022, Additional history exists DTaP,Tdap,and Td Vaccines (3 - Td or Tdap) 12/04/2026 12/04/2016, 12/03/2006, 12/15/1996, Additional history exists Pneumococcal Vaccine: 65+ Years Completed 10/02/2014, 09/01/2011, 07/07/2006 RETIRED - COLONOSCOPY-EVERY 5 YRS AGES 18-100 Discontinued 01/21/2019, 01/21/2019, 05/10/2013, Additional history exists Zoster Vaccines Completed 01/05/2020, 08/05, 10/02/2014 VITAMIN D LEVEL ONCE IN A LIFETIME-USE SMARTSET# 11282 Completed 05/27/2021, 09/07/2019, 01/10/2019, Additional history exists Diabetic Eye Exam Discontinued 01/30/2023, , 01/25/2021, Additional history exists Diabetic Foot Exam Discontinued 12/18/2023, 12/24/2022 GARDASIL-HPV IMMUNIZATION SERIES Aged Out No longer [...] Priority Date/Time Associated Diagnosis Comments DIFFERENTIAL, AUTOMATED Routine 12/25/2023 2:31 PM EDT Prostate cancer (HCC) CBC Routine 12/25/2023 2:31 PM EDT Prostate cancer (HCC) CBC Routine 12/25/2023 2:31 PM EDT Prostate cancer (HCC) documented in this encounter Results * (ABNORMAL) DIFFERENTIAL, AUTOMATED (12/25/2023 2:31 PM EDT) WBC 9.33 4.00 - 10.80 K/uL 12/25/2023 2:[address] [facility] 56-02 Neutrophils % 80.9(H) 40.0 - 75.0 % 12/25/2023 2:35 PM EDT [facility] 56-02 Lymphocytes % 9.1(L) 18.0 - 42.0 % 12/25/2023 2:35 PM EDT [facility] 56-02 Monocytes % 6.5 1.0 - 11.0 % 12/25/2023 2:35 PM EDT [facility] 56-02 Eosinophils % 3.2 0.0 - 6.0 % 12/25/2023 2:35 PM EDT [facility] 56-02 Basophils % 0.3 0.0 - 2.0 % 12/25/2023 2:[address] [facility] 56-02 Absolute Neutrophils 7.54 1.80 - 7.70 K/uL 12/25/2023 2:35 PM EDT [facility] Absolute Lymphocytes 0.85(L) 1.00 - 4.80 K/ul 12/25/2023 2:35 PM EDT [facility] Absolute Monocytes 0.61 0.00 - 1.10 K/uL 12/25/2023 2:35 PM EDT [facility] Absolute Eosinophils 0.30 0.00 - 0.70 K/uL 12/25/2023 2:35 PM EDT [facility] Absolute Basophils 0.03 0.00 - 0.20 K/uL 12/25/2023 2:35 PM EDT [facility] Blood Venous blood specimen / Unknown Venipuncture / Unknown 12/25/2023 2:31 PM EDT 12/25/2023 2:31 PM EDT Patrice Puente MD LAB BLOOD ORDERABLES [facility] [address] [place] [address] * (ABNORMAL) CBC (12/25/2023 2:31 PM EDT) WBC 9.33 4.00 - 10.80 K/uL 12/25/2023 2:35 PM EDT [facility] RBC 3.83 4.50 - 5.25 M/uL 12/25/2023 2:35 PM EDT [facility] HGB 11.1(L) 14.0 - 16.8 g/dL 12/25/2023 2:35 PM EDT [facility] HCT 35.5(L) 40.0 - 48.4 % 12/25/2023 2:35 PM EDT [facility] MCV 92.7 82.0 - 99.5 fL 12/25/2023 2:35 PM EDT [facility] MCH 29.0 27.0 - 34.0 pg 12/25/2023 2:35 PM EDT [facility] MCHC 31.3 32.0 - 36.0 g/dL 12/25/2023 2:35 PM EDT [facility] RDW 16.0 11.5 - 15.5 % 12/25/2023 2:35 PM EDT [facility] PLT 295 140 - 400 K/uL 12/25/2023 2:35 PM EDT [facility] MPV 9.4 6.6 - 11.1 fL 12/25/2023 2:35 PM EDT [facility] Blood Venous blood specimen / Unknown Venipuncture / Unknown 12/25/2023 2:31 PM EDT 12/25/2023 2:31 PM EDT Patrice Puente MD LAB BLOOD ORDERABLES [facility] [address] [place] [address] documented in this encounter Visit Diagnoses Diagnosis Prostate cancer (HCC) Malignant neoplasm of prostate documented in this encounter Care Teams Tong Setter Relationship Specialty Start Date End Date Rhianna Huitron DO [address] [place] [address] PCP - General Family Medicine 07/11/19 documented as of this encounter
--- OUTSIDE RECORDS SUMMARY | 2024-04-01 00:17 | External Medical Summary | Summary of Care ---
Author Name Unknown Organization [facility] Address [address] [place] [address] Phone [phone] Care Team Providers Care Skiver Uppers Or Linings Name Role Phone Rhianna Huitron DO Primary Care Provider Reason for Visit * Reason Onset Date Comments Appointment 12/23/2023 Lupron inj Encounter Details Date Type Department Care Team (Late st Contact Info) Description 12/23/2023 Telephone Urology, [facility] [address] [place] [address] Services, Scheduling [address] [place] [address] Appointment (Lupron inj ) Allergies Active Allergy Reactions Criticality Noted Date Comments Brent Inhibitors Cough Low 11/26/2017 Alendronate Sodium Muscle pain 04/11/2019 Heartburn, constipation, joint pain Misoprostol Diarrhea 08/08/2003 Niacin Er 11/26/2010 Gas, hot flashes Pollen 01/01/2018 Watery eyes, sneezing Pravastatin 02/26/2007 Upset stomach, all .Statins Simvastatin 02/26/2007 Upset stomach documented as of this encounter (statuses as of 12/23/2023) Medications Medication Sig Dispensed Refills Start Date [...] as of this encounter (statuses as of 12/23/2023) Active Problems Problem Noted Date Diagnosed Date [...] glucose 12/16/2005 Macular degeneration 12/02/1999 DISC DIS [id number] documented as of this encounter (statuses as of 12/23/2023) Resolved Problems Problem Noted Date Diagnosed Date [...] colonoscopy in 5 years ARTHRITIS,RHEUMATOID 07/07/2006 016 [id number] 07/07/200611/01 Overview: Renamed Per Clinical Trials Billing Project. Pt is a participant in the [employer] ([employer]ortium of Rheumatology Researchers of [place]) national data collection study. For further information please call Dr Hari Clark or Julia White, RN, CCRC at [phone] [facility] RESEARCH OTHER*[id number] 07/07/2006 01/28/2010 Overview: Renamed Per Clinical Trials Billing Project. Pt is a participant in the [facility] (Consortium of Rheumatology Researchers of [place] [facility]) national data collection study. For further information please call Dr Hari Clark or Julia White, RN, CCRC at [phone] Hearing loss 12/02/1999 03/29/2013 documented as of this encounter (statuses as of 12/23/2023) Immunizations Name Administration Dates Next Due COVID-19 [...] encounter Miscellaneous Notes * Telephone Encounter - Ml Avalos OSA - 12/23/2023 8:49 AM EDT Spoke to patient and r/s to December 28 * Telephone Encounter - Tierney Ariza OSA - 12/23/2023 8:43 AM EDT Patient calling to reschedule his lupron injection. documented in this encounter Plan of Treatment Upcoming Encounters Date Type Department Care Team (Late st Contact Info) Description 12/25/2023 2:00 PM EDT Office Visit Hematology/Oncology [facility] [address] [place] [address] Korin Fisher CRNP [address] [facility] [place] [address] 12/29/2023 9:30 AM EDT Nurse Only Urology, [facility] [address] [facility] [place] [address] [facility] Nurse Urology [facility] [address] [facility] [place] [address] 03/14/2024 11:15 AM EDT Office Visit Urology, [facility] [address] [facility] [place] [address] Vinay Sexton MD [address] [address] [place] [address] 05/13/2024 11:50 AM EDT Office Visit [address] [phone] Rhianna Huitron, [address] [address] 05/19/2024 10:20 AM EDT Office Visit Rheumatology [place] [address] [place] [address] Mendel Wilson MD [address] [place] [address] 05/26/2024 10:30 AM EDT Office Visit Cardiology, [facility] [address] [facility] [place] [address] Dmitri Greenfield, DO [facility] [place] [address] Scheduled Procedures Name Priority Associated Diagnoses Date/Ti me COLONOSCOPY FLEXIBLE PROXIMAL DIAGNOSTIC Recall Hx of colonic polyps Health Maintenance Due Date Last Done Comments CKD PHOS USE SMARTSET 85980 02/23/1963 DXA Scan 01/10/2021 01/10/2019, 12/2005, 07/07/2006 [...] Additional history exists CKD HGB USE SMARTSET 98036 09/09/202409/09, 09/09/2023, 07/06/2023, Additional history exists HbA1c 11/05/2024 11/06/2023, 06/04, 12/24/2022, Additional history exists DTaP,Tdap,and Td Vaccines (3 - Td or Tdap) 12/04/2026 12/04/2016, 12/03/2006, 12/15/1996, Additional history exists Pneumococcal Vaccine: 65+ Years Completed 10/02/2014, 09/01/2011, 07/07/2006 RETIRED - COLONOSCOPY-EVERY 5 YRS AGES 18-100 Discontinued 01/21/2019, 01/21/2019, 05/10/2013, Additional history exists Zoster Vaccines Completed 01/05/2020, 08/05, 10/02/2014 VITAMIN D LEVEL ONCE IN A LIFETIME-USE SMARTSET# [id number] Completed 05/27/2021, 09/07/2019, 01/10/2019, Additional history exists [...] filedocumented as of this encounter Care Teams Skiver Uppers Or Linings Relationship Specialty Start Date End Date Rhianna Huitron DO [address] [place] [address] PCP - General Family Medicine 07/11/19 documented as of this encounter
--- OUTSIDE RECORDS SUMMARY | 2024-04-01 00:17 | External Medical Summary ---
Author Name Unknown Address Unknown Organization K[facility] [place] [address] Laboratory Report Ordering Provider Test Date Status JOHNATHON CASILLAS 12/25/2023 14:31:03 Final Observation Date Value Abnormality Reference (Units ) Status SYNC LEUKOCYTES IN BLOOD BY AUTOMATED COUNT 12/25/2023 14:31:03 9.33 4.00-10.80 (K/uL) Final Segs 12/25/2023 14:31:03 80.9 Above high normal 40.0-75.0 (%) Final Lymphs % 12/25/2023 14:31:03 9.1 Below low normal 18.0-42.0 (%) Final Monos 12/25/2023 14:31:03 6.5 1.0-11.0 (%) Final Eosinophils 12/25/2023 14:31:03 3.2 0.0-6.0 (%) Final Basos 12/25/2023 14:31:03 0.3 0.0-2.0 (%) Final Absolute Segs 12/25/2023 14:31:03 7.54 1.80-7.70 (K/uL) Final Lymphs, absolute 12/25/2023 14:31:03 0.85 Below low normal 1.00-4.80 (K/ul) Final Monos, Abs 12/25/2023 14:31:03 0.61 0.00-1.10 (K/uL) Final Eos, Abs 12/25/2023 14:31:03 0.30 0.00-0.70 (K/uL) Final Basos, Abs 12/25/2023 14:31:03 0.03 0.00-0.20 (K/uL) Final Performing Location [facility] [place] [address]
--- OUTSIDE RECORDS SUMMARY | 2024-04-01 00:17 | External Medical Summary | Summary of Care ---
Author Name Unknown Organization [facility] Address [address] [place] [address] Phone [phone] Care Team Providers Care Speech And Drama Teacher Name Role Phone Rhianna Huitron DO Primary Care Provider Reason for Visit * Reason Comments Acute Pt here today due to having possible sinus, flu, or covid. Negative home covid testPt states he has dry cough and drainage and sore throat Encounter Details Date Type Department Care Team (Late st Contact Info) Description 12/18/2023 12:20 PM EDT Office Visit [place] [address] [place] [phone] Fernie Lechuga MD [address] [place] [address] Sinus congestion*; Bronchitis, complicated; Prediabetes; Rheumatoid arthritis involving multiple sites with positive rheumatoid factor (HCC); HTN, goal below 130/80; Chronic kidney disease, stage 3a (HCC); S/P angioplasty with stent; Osteoporosis with symptom management only Allergies Active Allergy Reactions Criticality Noted Date Comments Brent Inhibitors Cough Low 11/26/2017 Alendronate Sodium Muscle pain 04/11/2019 Heartburn, constipation, joint pain Misoprostol Diarrhea 08/08/2003 Niacin Er 11/26/2010 Gas, hot flashes Pollen 01/01/2018 Watery eyes, sneezing Pravastatin 02/26/2007 Upset stomach, all .Statins Simvastatin 02/26/2007 Upset stomach documented as of this encounter (statuses as of 12/18/2023) Medications Medication Sig Dispensed Refills Start Date End Date Status ASPIR-81 81 MG PO TBEC 1 TABLET DAILY 0 06/19/2006 Active Tamsulosin HCl 0.4 MG Oral Capsule (Flomax) Take 1 Capsule by mouth in the morning. 90 Capsule 3 01/02/2023 Active Methotrexate Sodium 2.5 MG Oral TabletIndications: Arthritis, rheumatoid (HCC) TAKE 5 TABLETS BY MOUTH ONCE WEEKLY 65 Tablet 1 08/11/2023 Active Acetaminophen 325 MG Oral Tablet (Tylenol) 2 Tablets. 0 09/03/2023 Active Magnesium Oxide -Mg Supplement 400 [...] MORNING 90 Tablet 3 09/21/2023 Active OneTouch Verjennifer In Vitro Strip (Glucose Blood) Type [...] this for 10 days. 20 Tablet 0 12/18/2023 12/28/2023 Active documented as of this encounter (statuses as of 12/18/2023) Active Problems Problem Noted Date Diagnosed Date [...] glucose 12/16/2005 Macular degeneration 12/02/1999 DISC DIS [id number] documented as of this encounter (statuses as of 12/18/2023) Resolved Problems Problem Noted Date Diagnosed Date [...] colonoscopy in 5 years ARTHRITIS,RHEUMATOID 07/07/2006 016 [id number] 07/07/200611/01 Overview: Renamed Per Clinical Trials Billing Project. Pt is a participant in the [facility] (Consortium of Rheumatology Researchers of [place]) national data collection study. For further information please call Dr Hari Clark or Julia White, RN, CCRC at [phone] [facility] RESEARCH OTHER*[id number] 07/07/2006 01/28/2010 Overview: Renamed Per Clinical Trials Billing Project. Pt is a participant in the [facility] (Consortium of Rheumatology Researchers of [place] [facility]) national data collection study. For further information please call Dr Hari Clark or Julia White, RN, CCRC at [phone] Hearing loss 12/02/1999 03/29/2013 documented as of this encounter (statuses as of 12/18/2023) Immunizations Name Administration Dates Next Due COVID-19 mRNA, LNP-s, No Pre serve, 2-Dose Series (Machine Talker) 06/14/2021,10/10/2020,09/12/2020 COVID-19, LNP-s, No Preserve , Yousuf-sucrose, [...] Sign Reading Time Taken Comments Blood Pressure 130/70 12/18/2023 12:06 PM EDT Pulse 70 12/18/2023 12:06 PM EDT Temperature 36.5 C (97.7 F) 12/18/2023 12:06 PM E DT Respiratory Rate 18 12/18/2023 12:06 PM EDT Oxygen Saturation 98% 12/18/2023 12:06 PM EDT Inhaled Oxygen Concentration - - Weight 135.6 kg (299 lb) 12/18/2023 12:06 PM EDT Height - - Body Mass Index 37.88 09/09/2023 10:58 AM EST documented in this encounter Patient Instructions * Patient Instructions* Luba Mondragon LPN - 12/18/2023 12:08 PM EDT Osteoporosis: Screening for Bone Loss The strength of bones is measured by their density (thickness). High bone density means bones are less likely to fracture. If you are at risk for bone loss, your healthcare provider may refer you forbone density testing. Bone Density Testing Bone density testing is safe, quick, easy, and painless. Testing can detect osteoporosis before a fracture happens. It can also predict the risk of future fractures. And testing can measure the response to treatment. There are two types of tests that you may have: Peripheral tests are used for screening. They measure density in the finger, wrist, knee, allen, or heel. A common peripheral test is the quantitative ultrasound (QUS). Central tests are used for diagnosis. They measure density in the hip or spine. The main centraltest is the dual energy x-ray absorptiometry (DXA). The DXA is the standard bone density test. Who Should Be Tested? All postmenopausal women under age 65, with one or more risk factors in addition to menopause. All women age 65 and older. Postmenopausal women with fractures. Women who are thinking about treatment for osteoporosis. Women who have been on hormone therapy for a long time. Men or women with certain medical conditions or who are taking certain medications (such as glucocorticoids or prednisone) for a long period. Common Testing Sites Any bone can fracture, but with osteoporosis some bones fracture more easily. These include bones in the spine, wrist, shoulder, and hip. Thats why bone density testing may be done at one or more of these sites. Understanding Your Results The results of your test may seem confusing at first. Dont be afraid to ask your provider to explain. Your bone mineral density (BMD) describes the thickness of the bone that was scanned. Your healthcare provider will compare your BMD with the BMD of young, healthy bone. The result is called a T-score. Bones remodel at different rates. So, a healthy T-score in the wrist doesnt mean the spine is also healthy. Thats why more than one site may be scanned. [id number] Angel Guerrero, [address] [place] [address]. All rights reserved. This information is not intended as a substitute for professional medical care. Always follow your healthcare professional's instructions Diabetes: Keeping Feet Healthy Inspect your feet every day for signs of a problem. Diabetes can damage nerves in your feet and cause neuropathy. This condition makes it hard for you to feel injuries or sore spots. Diabetes can also change blood flow, making it harder for small problems, like a blister, to heal properly. In fact, minor injuries can quickly become serious infections that send you to the hospital. Practice self-care to protect your feet and keep them healthy. Take Special Care Inspect your feet daily for problems such as redness, blisters, cracks, dry skin, or numbness. Use a mirror to see the bottoms of your feet. Or, ask for help. Manage your diabetes. Monitor and control your blood sugar. Take all your medications as prescribed. Avoid walking barefoot, even indoors. Wash your feet with warm water and mild soap. Dry well, especially between toes. Dont treat corns or calluses yourself. Talk to your doctor or director of consumer affairs (a doctor who specializes in foot care) if you need assistance trimming your toenails. Use moisturizing cream or lotion if you have dry skin, but dont use it between toes. Dont use heating pads on your feet. If you have neuropathy, you could get a burn and not feel it. Stop smoking. Smoking restricts blood flow and can make it harder for wounds to heal. Have Regular Checkups Foot problems can develop quickly. So be sure to follow your healthcare teams schedule for regular checkups. During office visits, take off your shoes and socks as soon as you get in the exam room. Ask your healthcare provider to examine your feet for problems. This will make it easier to find and treat small skin irritations before they get worse. Regular checkups can also help keep track of the blood flow and feeling in your feet. If you have neuropathy, you may need to have checkups more often. Wear Proper Footwear Wearing proper footwear is very important. If areas of your feet have been damaged by too much pressure, your healthcare provider may recommend changing your footwear. In some cases, avoiding high heels or tight work boots may be all thats needed. Or, your healthcare provider may recommend special shoes or custom inserts. These help protect your feet and keep existing irritations from getting worse. If you need special footwear, ask your healthcare provider if you qualify for [employer] diabetic shoe program. Make Sure Shoes and Socks Fit Any pair of shoes--new or old--should feel comfortable as soon as you put them on. There shouldnt be any rubbing when you walk. Wear the right shoe for any activity. For instance, a running shoe is designed to keep your feet injury-free while jogging. Buy shoes at the end of the day, when your feet are larger. Make sure they provide support without feeling too loose. Make sure your socks fit, t oo. Wear soft, seamless, well-padded socks for activity. Cotton or microfiber socks are best to help to absorb sweat. To protect your feet, avoid shoes that are open-toed or open-heeled. If you have questions about what kinds of shoes and socks are best, talk to your healthcare team. Get Regular Exercise Regular exercise improves blood flow in your feet. It also increases foot strength and flexibility.Gentle exercises, like walking or riding a stationary bicycle, are best. You can also do special foot exercises. Just be sure to talk with your healthcare provider before starting any exercise program. Also mention if any exercise causes pain, redness, or other signs of foot problems. Note: If you have any kind of break in the skin of your foot or ankle, keep the area clean. Then call your doctor--especially if the area doesnt appear to be healing. [phone] [employer], [address] [place] [address], [place] [address]. All rights reserved. This information is not intended as a substitute for professional medical care. Always follow your healthcare professional's instructions. documented in this encounter Progress Notes * Fernie Lechuga MD - 12/18/2023 12:50 PM EDT Subjective Markus Wharton is a 78 year old male. Chief Complaint Patient presents with Acute Pt here today due to having possible sinus, flu, or covid. Negative home covid test Pt states he has dry cough and drainage and sore throat HPI: Here for acute sinus infection sign which is going down to his upper chest too Causing lots of coughs at night , Negative home covid test, denies fever, wheezing, CP , ear pain Sinus pressure, using flonase Known preDM, not on med, hba1c 6 RA - taking meds, stable Recent [place], stent , plavix and other meds F/u with cardio Hx of prostate can, f/u with urology , stable PMH: Patient Active Problem List Diagnosis Code Macular degeneration H35.30 DISC DIS [id number] M51.9 Impaired fasting glucose R73.01 ADVANCE DIRECTIVE INFORMATION Encounter for long-term (current) use of medications Z79.899 BMI 35-39 ISOLATED (SEE ACTUAL BMI) E66.9 Rheumatoid arthritis involving multiple sites with positive rheumatoid factor ([facility]) M05.79 HTN, goal below 130/80 I10 History of colon polyps Z86.010 Fuchs' corneal dystrophy H18.519 Prediabetes R73.03 Morbid obesity with BMI of 40.0-44.9, adult ([facility]) E66.01, Z68.41 Dyslipidemia, goal LDL below 160 E78.5 Osteoporosis with symptom management only M81.0 Prostate cancer ([facility]) C61 Heart failure ([facility]) I50.9 Chronic kidney disease, stage 3a ([facility]) N18.31 S/P angioplasty with stent Z95.820 Current Outpatient Medications Medication Sig Dispense Refill ASPIR-81 81 MG PO TBEC 1 TABLET DAILY 0 Tamsulosin HCl 0.4 MG Oral Capsule (Flomax) Take 1 Capsule by mouth in the morning. 90 Capsule 3 Methotrexate Sodium 2.5 MG [...] this for 10 days. 20 Tablet 0 No current facility-administered medications for this visit. Past Medical History: Diagnosis Date Arthritis, rheumatoid [...] by Teddy Rizvi MD at ENDOSCOPY [facility] COLONOSCOPY, DIAGNOSTIC (RECTUM) 01/21/2019 diverticulosis, repeat 5 yrs/COLONOSCOPY FLEXIBLE PROXIMAL DIAGNOSTIC performed by Teddy Rizvi MD at ENDOSCOPY [facility] [address] REMOVE TONSILS & ADENOIDS, AGE 12+ 1980 Tonsillectomy/Adenoids,12+ Y/O Review of patient's allergies indicates: Allergen Reactions Fosamax [Alendronate Sodium] Muscle pain Heartburn, constipation, joint pain Misoprostol Diarrhea Niaspan [Niacin Er] Gas, hot flashes Pollen Watery eyes, sneezing Pravastatin Upset stomach, all .Statins Simvastatin Upset stomach Brent Inhibitors Cough Family History Problem Relation Age of Onset Arthritis Mother RHEUMATOID Gastro-intestinal disorder Mother PUD Gastro-intestinal disorder Father PUD Diabetes Uncle (Unspecified) Arthritis Sister osteo Arthritis Sister osteo Family Status Relation Status Mo at age 93 RA Fa at age 65 stomach ulcer surgery Sis Alive Sis Alive Concepcion Alive obese Son Alive UNCLE (Not Specified) Sis (Not Specified) Sis (Not Specified) Social History Socioeconomic History Marital status: Spouse name: Keyanna Number of children: 2 Years of education: Not on file Highest education level: Not on file Occupational History Employer: [employer] Tobacco Use Smoking status: Former Current packs/day: 0.00 Average packs/day: 1 pack/day for 35.0 years (35.0 ttl pk-yrs) Types: Cigarettes Start date: 08/03/1962 Quit date: 08/03/1997 Years since quittin.3 Passive exposure: Past Smokeless tobacco: Never Tobacco [...] Housing Stability: Not on file Review of Systems Constitutional: Positive for fatigue. Negative for activity change, appetite change, chills, diaphoresis, fever and unexpected weight change. HENT: Positive for congestion, postnasal drip, sinus pressure and sore throat. Negative for ear pain, rhinorrhea, sinus pain and sneezing. Respiratory: Positive for cough and chest tightness. Negative for shortness of breath and wheezing. Cardiovascular: Negative for chest pain, palpitations and leg swelling. Gastrointestinal: Negative for abdominal distention and abdominal pain. Allergic/Immunologic: Positive for environmental allergies. Neurological: Positive for headaches. Psychiatric/Behavioral: Positive for sleep disturbance (cough). Negative for agitation and behavioral problems. Objective BP 130/70 | Pulse 70 | Temp 36.5 C (97.7 F) (Infrared ) | Resp 18 | Wt 135.6 kg (299 lb) | GrW122% | BMI 37.88 kg/m | BSA 2.67 m Physical Exam Constitutional: General: He is not in acute distress. Appearance: Normal appearance. He is obese. He is not ill-appearing, toxic- appearing or diaphoretic. HENT: Head: Normocephalic and atraumatic. Ears: Comments: Fluid TMs Nose: Congestion present. Eyes: Extraocular Movements: Extraocular movements intact. Cardiovascular: Rate and Rhythm: Normal rate and regular rhythm. Pulses: Normal pulses. Heart sounds: No murmur heard. Pulmonary: Effort: Pulmonary effort is normal. No respiratory distress. Breath sounds: No stridor. Rhonchi present. No wheezing or rales. Chest: Chest wall: No tenderness. Musculoskeletal: Right lower leg: No edema. Left lower leg: No edema. Neurological: Mental Status: He is alert and oriented to person, place, and time. Psychiatric: Behavior: Behavior normal. ASSESSMENT/PLAN: Sinus congestion (Primary) Bronchitis, complicated Prediabetes - DIABETES FOOT EXAM Rheumatoid arthritis involving multiple sites with positive rheumatoid factor (HCC) HTN, goal below 130/80 Chronic kidney disease, stage 3a (HCC) S/P angioplasty with stent Osteoporosis with symptom management only Other orders - Amoxicillin-Pot Clavulanate 500-125 MG Oral Tablet (Augmentin); Take 1 Tablet by mouth in the morning and 1 Tablet before bedtime. Do all this for 10 days. Saline , flonase Zyrtec a few days Augmentin Fernie Lechuga MD * Luba Mondragon LPN - 12/18/2023 12:08 PM EDT Dexa scan ordered today. Provider aware. Luba Mondragon LPN Urine albumin/creatinine ratio ordered today. Provider aware. Socks and Shoes Removed for Annual Diabetic Foot Screening DM Foot Exam completed today. Provider aware. Luba Mondragon LPN documented in this encounter Nursing Notes * Luba Mondragon LPN - 12/18/2023 12:05 PM EDT Chief Complaint Patient presents with Acute Pt here today due to having possible sinus, flu, or covid. Negative home covid test Pt states he has dry cough and drainage and sore throat documented in this encounter Plan of Treatment Upcoming Encounters Date Type Department Care Team (Late st Contact Info) Description 12/23/2023 11:00 AM EDT Nurse Only Urology, [facility] [address] [facility] [place] [address] [facility] Nurse Urology [facility] [address] [place] [address] 12/25/2023 2:00 PM EDT Office Visit [facility]ology[facility] [address] [facility] [phone] Korin Fisher CRNP [address] [facility] [place] [address] 03/14/2024 11:15 AM EDT Office Visit Urology, [facility] [address] [place] [address] Vinay Sexton MD [address] [place] [address] [place] [address] 05/13/2024 11:50 AM EDT Office Visit [address] [phone] Rhianna Huitron, DO [address] [place] [address] 05/19/2024 10:20 AM EDT Office Visit [facility] [address] [facility] [address] Mendel Wilson MD [address] [facility] [place] [address] 05/26/2024 10:30 AM EDT Office Visit Cardiology, [facility] [address] [place] [address] Dmitri Greenfield, DO [address] [place] [address] Scheduled Procedures Name Priority Associated Diagnoses Date/Ti me COLONOSCOPY FLEXIBLE PROXIMAL DIAGNOSTIC Recall Hx of colonic polyps Health Maintenance Due Date Last Done Comments CKD PHOS USE SMARTSET [id number] 02/23/1963 DXA Scan 01/10/2021 01/10/2019, 12/2005, 07/07/2006 [...] Additional history exists CKD HGB USE SMARTSET 57479 09/09/202409/09, 09/09/2023, 07/06/2023, Additional history exists HbA1c [...] D LEVEL ONCE IN A LIFETIME-USE SMARTSET# [id number] Completed 05/27/2021, 09/07/2019, 01/10/2019, Additional history exists [...] as of this encounter Visit Diagnoses Diagnosis Sinus congestion- Primary Other diseases of nasal cavity and sinuses Bronchitis, complicated Bronchitis, not specified as acute or chronic Prediabetes Other abnormal glucose Rheumatoid arthritis involving multiple sites with positive rheumatoid factor (HCC) HTN, goal below 130/80 Unspecified essential hypertension Chronic kidney disease, stage 3a (HCC) S/P angioplasty with stent Postsurgical percutaneous transluminal coronary angioplasty status Osteoporosis with symptom management only Osteoporosis, unspecified documented in this encounter Care Teams Speech And Drama Teacher Relationship Specialty Start Date End Date Rhianna Huitron DO [address] [place] [address] PCP - General Family Medicine 07/11/19 documented as of this encounter"
--- OUTSIDE RECORDS SUMMARY | 2024-04-01 00:17 | External Medical Summary ---
Author Name Unknown Address Unknown Organization K09:[facility] [place] [address] Laboratory Report Ordering Provider Test Date Status JOHNATHON CASILLAS 12/25/2023 14:31:03 Final Observation Date Value Abnormality Reference (Units ) Status WBC, Total 12/25/2023 14:31:03 9.33 4.00-10.8 0 (K/uL) Final RBC 12/25/2023 14:31:03 3.83 4.50-5.25 (M/uL) Final Hemoglobin 12/25/2023 14:31:03 11.1 Below low normal 14 .0-16.8 (g/dL) Final HCT 12/25/2023 14:31:03 35.5 Below low normal 40. 0-48.4 (%) Final MCV 12/25/2023 14:31:03 92.7 82.0-99.5 (fL) Final MCH 12/25/2023 14:31:03 29.0 27.0-34.0 (pg) Final MCHC 12/25/2023 14:31:03 31.3 32.0-36.0 (g/dL) Final RDW 12/25/2023 14:31:03 16.0 11.5-15.5 (%) Final Platelets 12/25/2023 14:31:03 295 140-400 (K /uL) Final MPV 12/25/2023 14:31:03 9.4 6.6-11.1 ( fL) Final Performing Location [facility] [place] [place] [address]
--- OUTSIDE RECORDS SUMMARY | 2024-04-01 00:17 | External Medical Summary | Summary of Care ---
Author Name Unknown Organization [facility] Address [address] [place] [address] Phone [phone] Care Team Providers Care Paperback Machine Operator Name Role Phone Rhianna Huitron DO Primary Care Provider Reason for Visit * Reason Comments Follow Up Encounter Details Date Type Department Care Team (Latest Contact Info) Description 12/08/2023 9:30 AM EDT Office Visit Cardiology, [facility] [address] [place] [address] Dmitri Greenfield, [address] [place] [address] NSVT (nonsustained ventricular tachycardia) ([facility])*; Chronic HFrEF (heart failure with reduced ejection fraction) (HCC); Non-ischemic cardiomyopathy (HCC); HTN, goal below 130/80; Dyslipidemia, goal LDL below 70; Status post insertion of drug-eluting stent into left anterior descending (LAD) artery for coronary artery disease Allergies Active Allergy Reactions Criticality Noted Date Comments Brent Inhibitors Cough Low 11/26/2017 Alendronate Sodium Muscle pain 04/11/2019 Heartburn, constipation, joint pain Misoprostol Diarrhea 08/08/2003 Niacin Er 11/26/2010 Gas, hot flashes Pollen 01/01/2018 Watery eyes, sneezing Pravastatin 02/26/2007 Upset stomach, all .Statins Simvastatin 02/26/2007 Upset stomach documented as of this encounter (statuses as of 12/08/2023) Medications Medication Sig Dispensed Refills Start Date [...] before bedtime. 180 Tablet 3 09/18/2023 Active Metoprolol Succinate ER 50 MG Oral Tablet Extended Release 24 Hour (toPROL XL) Take 1 Tablet by mouth in the morning and 1 Tablet before bedtime. 90 Tablet 3 09/18/2023 Active Rosuvastatin Calcium [...] as of this encounter (statuses as of 12/08/2023) Active Problems Problem Noted Date Diagnosed Date Chronic kidney disease, stage 3a 09/14/2023 Overview: Per CKD protocol Heart failure 09/08/2023 Type 2 diabetes mellitus wit h stage [...] glucose 12/16/2005 Macular degeneration 12/02/1999 DISC DIS [id number] documented as of this encounter (statuses as of 12/08/2023) Resolved Problems Problem Noted Date Diagnosed Date [...] colonoscopy in 5 years ARTHRITIS,RHEUMATOID 07/07/2006 016 [id number] 07/07/200611/01 Overview: Renamed Per Clinical Trials Billing Project. Pt is a participant in the [facility] (Consortium of Rheumatology Researchers of [place]) national data collection study. For further information please call Dr Hari Clark or Julia White, RN, CCRC at [phone] [facility] RESEARCH OTHER*[id number] 07/07/2006 01/28/2010 Overview: Renamed Per Clinical Trials Billing Project. Pt is a participant in the [facility] (Consortium of Rheumatology Researchers of [facility]) national data collection study. For further information please call Dr Hari Clark or Julia White, RN, CCRC at [phone] Hearing loss 12/02/1999 03/29/2013 documented as of this encounter (statuses as of 12/08/2023) Immunizations Name Administration Dates Next Due COVID-19 mRNA, LNP-s, No Pre serve, 2-Dose Series (Roobiq) 06/14/2021,10/10/2020,09/12/2020 COVID-19, LNP-s, No Preserve , Yousuf-sucrose, [...] Sign Reading Time Taken Comments Blood Pressure 120/68 12/08/2023 9:22 AM EDT Pulse 60 12/08/2023 9:22 AM EDT Temperature - - Respiratory Rate 16 12/08/2023 9:22 AM EDT Oxygen Saturation - - Inhaled Oxygen Concentration - - Weight 134.2 kg (295 lb 12.8 oz) 12/08/2023 9:22 AM EDT Height - - Body Mass Index 37.47 09/09/2023 10:58 AM EST documented in this encounter Progress Notes * Dmitri Greenfield, - 12/08/2023 9:57 AM EDT 12/08/2023 Cardiology Follow Up CHIEF COMPLAINT: post hospital follow-up, episodes of nonsustained ventricular tachycardia, left ventricular systolic dysfunction, CAD SUBJECTIVE: Markus Wharton is a 78 year old year old male who returns in hospital follow-up. He was accompanied by his son, Kenneth, who works at [employer]. 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 He has a history of rheumatoid arthritis and prostate carcinoma. He had been receiving treatment with the androgen synthesis inhibitor Zytiga. On 09/01/2023 he presented to the emergency department at [facility] with complaint of acute onset severechest discomfort. On telemetry he was found to have frequent runs of nonsustained ventricular tachycardia most of which were in the range of 3 to 4 beats in duration. He underwent cardiac catheterization performed by Dr. Alvarenga and was found to have a 70 to 75% stenosis of the mid LAD as assessed with intravascular ultrasound and therefore underwent PCI and placement of a drug-eluting stent to the mid LAD. Nonobstructive residual CAD noted as well as summarized below. Echocardiogram revealed moderate diffuse left ventricular systolic dysfunction with ejection fraction in the range of 30 to 35% as performed on 09/01/2023. In advance of today's visit he had a repeatechocardiogram performed on 12/01/2023 with interval improvement in the ejection fraction to 45%. Ihad spoken to him by phone and I would recommend that he could discontinue wearing his Zoll LifeVest. Overall he notes feeling well without any subjective palpitations. Denies lightheadedness or dizziness. Denies additional chest pain episodes. Extensive ROS: All systems reviewed & are unremarkable except as noted in HPI & below Cardiovascular (chest pain/palpitations/fluttering/diaphoresis/dyspnea on exertion/paroxysmally nocturnal dyspnea):Negative Review of patient's allergies indicates: Allergen Reactions [...] 1 Tablet before bedtime. 180 Tablet 3 Metoprolol Succinate ER 50 MG Oral Tablet Extended Release 24 Hour (toPROL XL) Take 1 Tablet by mouth in the morning and 1 Tablet before bedtime. 90 Tablet 3 Rosuvastatin Calcium 5 MG Oral Tablet (Crestor) Take 1 Tablet by mouth in the morning. 90 Tablet 3 Folic Acid 1 MG Oral Tablet TAKE 1 TABLET BY MOUTH EVERY DAY IN THE MORNING 90 Tablet 3 OneTouch VerCrowdGather In Vitro Strip (Glucose Blood) Type 2 diabetes, check blood sugars 2 times a day, kostas and pm. 100 Strip 1 No current facility-administered medications for this visit. OBJECTIVE/PHYSICAL EXAMINATION: BP 120/68 (BP Site: Left Arm, BP Position: Sitting, BP Cuff Size: Large) | Pulse 60 | Resp 16 | Wt 134.2 kg (295 lb 12.8 oz) | BMI 37.47 kg/m | BSA 2.66 m General: no acute distress and stated age Eyes: conjunctiva are pink and non-injected, sclera clear Neck: normal jugular venous pulse, no hepatojugular reflux Chest: normal shape and normal respiratory effort Lungs: clear to auscultation , no rales rhonchi or wheezing Cardiac Exam: - regular heart sounds, no murmurs, rubs, or gallops Abdomen: abdomen soft, non-tender, no abnormal masses and no hepatosplenomegaly Musculoskeletal: no gait disturbance, no weakness Extremities: no edema and no cyanosis Neuro: grossly normal exam Psych: appropriate affect and insight. Data: Summary of ttecho peformed 12/01/23: There was normal sinus rhythm during the examination with occasional PVCs. The LV wall thickness is mildly increased (concentric). There is mild diffuse left ventricular hypokinesis. The left ventricular systolic function is mildly reduced. Qualitative LV ejection Fraction = 45%. No significant valvular disease is present. Compared to the previous study performed 09/01/2023 at [facility] , there has been interval improvement in the left ventricular ejection fraction. Lipid Panel Results: Results for orders placed or performed in visit on 10/02/14 LIPID PANEL Result Value Ref Range HOURS FASTING 12 hours Triglycerides 106 <200 mg/dL Cholesterol 192 <200 mg/dL HDL Cholesterol 49 >39 mg/dL Cholesterol-HDL Ratio 3.9 LDL Cholesterol 122 0 - 129 mg/dL Results for orders placed or performed in visit on 12/24/22 LIPID PANEL WITH DIRECT LDL IF TG IS HIGH Result Value Ref Range Triglycerides 87 <=174 mg/dL Cholesterol 175 <200 mg/dL HDL Cholesterol 56 >39 mg/dL Non-HDL Cholesterol 119 <=159 mg/dL LDL Cholesterol 102 <=129 mg/dL ASSESSMENT / PLAN: 78 year old year old male NSVT (nonsustained ventricular tachycardia) ([facility]) (Primary) Chronic HFrEF (heart failure with reduced ejection fraction) ([facility]) Non-ischemic cardiomyopathy ([facility]) HTN, goal below 130/80 Dyslipidemia, goal LDL below 70 Status post insertion of drug-eluting stent into left anterior descending (LAD) artery for coronaryartery disease - Patient describes stable cardiac signs and symptoms. Occasional PVCs were noted during his recentechocardiogram. 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 Although he was found to have coronary heart disease and underwent PCI of the LAD, the overall left ventricular systolic dysfunction seem to be out of proportion to the single-vessel coronary heart disease. He is no longer on Zytiga. He continues treatment with Lupron for his metastatic prostate carcinoma. . He had already reduced his magnesium supplementation to 1 time per day due to GI upset, and he was tolerating this well in his most recent magnesium level was within normal limits. Diagnostics: Proceed with 3 day Zio patch to reassess PVC burden. Continue aspirin, clopidogrel, Entresto, metoprolol succinate, rosuvastatin at current doses. As noted, patient is seen in longitudinal follow-up with the above issues with assessment and plan as outlined. DISPOSITION: Follow Up: Return in about 5 months (around 05/09/2024) for Clinic Visit. | For: Clinic Visit Dmitri GreenfieldDO Cardiology, [place] [place] [address] This chart was completed in part utilizing [employer] Speech Voice Recognition Software. Grammatical errors, random word insertions, prounoun errors, and incomplete sentences are an occasional consequence of this system due to software limitations, ambient noise, and hardware issues. Any formal questions or concerns about the content, text, or information contained within the body of this dictation should be directly addressed to the provider for clarification. documented in this encounter Nursing Notes * Korin Katz CMA - 12/08/2023 9:22 AM EDT Examination Room: 12 Name: Markus Wharton Date of : (1945). Reason for Visit: follow up Interim Hospitalization(s): denies Problems/Concerns: denies Chest Pain/SOB: denies [facility] Discussed: Not applicable [facility] is a way you can talk to your provider online through e-mail. Would you like to sign up? I can activate it for you? ALREADY ACTIVE Patient was instructed to not get up on the exam table until directed and assisted by their provider; patient is to remain seated in the chair/ wheelchair/ exam table for fall prevention and safety reasons. Patient is aware to have assistance to step down off exam table with personnel. Patient voiced full comprehension of instructions. documented in this encounter Plan of Treatment Upcoming Encounters Date Type Department Care Team (Late st Contact Info) Description 12/23/2023 11:00 AM EDT Nurse Only Urology, [place] [address] [place] [address] [facility] [place] [address] [place] [address] [place] [address] 12/25/2023 2:00 PM EDT Office Visit Hematology/Oncology [facility] [address] [facility] [place] [address] Korin Fisher CRNP [address] [facility] [place] [address] 03/14/2024 11:15 AM EDT Office Visit Urology, [facility] [address] [facility] [place] [address] Vinay Sexton MD [address] [facility] [address] [place] [address] 05/13/2024 11:50 AM EDT Office Visit Family [address] [phone] Rhianna Huitron [address] [address] 05/19/2024 10:20 AM EDT Office Visit Rheumatology [address] [place] [address] Mendel Wilson MD [facility] [place] [address] 05/26/2024 10:30 AM EDT Office Visit Cardiology, [facility] [address] [facility] [place] [address] Dmitri Greenfield, DO [address] [facility] [place] [address] Scheduled Orders Name Type Priority Associated Diagnoses Orde r Schedule EXTERNAL EKG 2 TO 7 DAYS Holter Routine NSVT (nonsustained ventricular tachycardia) (HCC) Non-ischemic cardiomyopathy (HCC) Expected: 12/09/2023 (Approximate), Expires: 12/07/2024 Scheduled Procedures Name Priority Associated Diagnoses Date/Ti me COLONOSCOPY FLEXIBLE PROXIMAL DIAGNOSTIC Recall Hx of colonic polyps Health Maintenance Due Date Last Done Comments CKD PHOS USE SMARTSET 27681 02/23/1963 DXA Scan 01/10/2021 01/10/2019, 12/2005, 07/07/2006 Depression Screening 03/13/2021 03/13/2020 COVID-19 Vaccine ( season) 2023 05/23/2022, 12/25/2021, 06/14/2021, Additional history exists Albumin/Creatinine Ratio 04/10/2023 04/10/2022, 10/2006 *BISPHONATE OR OTHER ACCEPTABLE MEDICATION NEEDED FOR OSTEOPOROSIS (REFER TO SMARTSET #1146) 04/29/2023 Diabetic Foot Exam 12/25/2023 12/24/2022 Colonoscopy 01/22/2024 01/21/2019, 01/02, 05/10/2013, Additional history exists Diabetic Eye Exam 01/31/2024 01/30/2023, , 01/25/2021, Additional history exists GFR 03/09/2024 09/09/2023, 08/03, 07/21/2023, Additional history exists Influenza Vaccine (FLU shot) (Season Ended) 2024 05/08/2022, 05/07/2021, 04/17/2020, Additional history exists HbA1c 05/07/2024 11/06/2023, 06/04, 12/24/2022, Additional history exists CKD HGB USE SMARTSET 85995 09/09/202409/09, 09/09/2023, 07/06/2023, Additional history exists DTaP,Tdap,and Td Vaccines (3 - Td or Tdap) 12/04/2026 12/04/2016, 12/03/2006, 12/15/1996, Additional history exists Pneumococcal Vaccine: 65+ Years Completed 10/02/2014, 09/01/2011, 07/07/2006 RETIRED - COLONOSCOPY-EVERY 5 YRS AGES 18-100 Discontinued 01/21/2019, 01/21/2019, 05/10/2013, Additional history exists Zoster Vaccines Completed 01/05/2020, 08/05, 10/02/2014 VITAMIN D LEVEL ONCE IN A LIFETIME-USE SMARTSET# 17321 Completed 05/27/2021, 09/07/2019, 01/10/2019, Additional history exists [...] ventricular tachycardia) (HCC)- Primary Paroxysmal ventricular tachycardia Chronic HFrEF (heart failure with reduced ejection fraction) (HCC) Non-ischemic cardiomyopathy (HCC) Other primary cardiomyopathies HTN, goal below 130/80 Unspecified essential hypertension Dyslipidemia, goal LDL below 70 Other and unspecified hyperlipidemia Status post insertion of drug-eluting stent into left anterior descending (LAD) artery for coronary artery disease documented in this encounter Care Teams Paperback Machine Operator Relationship Specialty Start Date End Date Rhianna Huitron DO [address] [place] [address] PCP - General Family Medicine 07/11/19 documented as of this encounter"
--- OUTSIDE RECORDS SUMMARY | 2024-04-01 00:17 | External Medical Summary | Summary of Care ---
Author Name Unknown Organization [facility] Address [address] [place] [address] Phone [phone] Care Team Providers Care Director Process Name Role Phone Rhianna Huitron DO Primary Care Provider Reason for Visit * Reason Comments Follow Up Pt here for follow u p visit Encounter Details Date Type Department Care Team (Late st Contact Info) Description 11/06/2023 11:10 AM EDT Office Visit [facility] [address] [place] [address] Rhianna Huitron DO [address] [place], [place] [id number] HTN, goal below 130/80*; Osteoporosis with symptom management only; Type 2 diabetes mellitus with stage 3a chronic kidney disease, unspecified whether correction insulin use (HCC); Prostate cancer ([facility]); Rheumatoid arthritis involving multiple sites with positive rheumatoid factor (HCC); Chronic kidney disease, stage 3a ([facility]); Systolic heart failure, unspecified HF chronicity (HCC); Low magnesium level Allergies Active Allergy Reactions Criticality Noted Date Comments Brent Inhibitors Cough Low 11/26/2017 Alendronate Sodium Muscle pain 04/11/2019 Heartburn, constipation, joint pain Misoprostol Diarrhea 08/08/2003 Niacin Er 11/26/2010 Gas, hot flashes Pollen 01/01/2018 Watery eyes, sneezing Pravastatin 02/26/2007 Upset stomach, all .Statins Simvastatin 02/26/2007 Upset stomach documented as of this encounter (statuses as of 11/06/2023) Medications Medication Sig Dispensed Refills Start Date End Date Status ASPIR-81 81 MG PO TBEC 1 TABLET DAILY 0 06/19/2006 Active Tamsulosin HCl 0.4 MG Oral Capsule (Flomax) Take 1 Capsule by mouth in the morning. 90 Capsule 3 01/02/2023 Active Methotrexate Sodium 2.5 MG Oral TabletIndications :Arthritis, rheumatoid (HCC) TAKE 5 TABLETS BY MOUTH ONCE WEEKLY 65 Tablet 1 08/11/2023 Active Acetaminophen 325 MG Oral Tablet (Tylenol) 2 Tablets. 0 09/03/2023 Active Magnesium Oxide -Mg Supplement 400 (240 Mg) MG Oral Tablet (Mag-Ox) Take 1 Tablet by mouth in the morning and 1 Tablet before bedtime. 180 Tablet 3 09/18/2023 Active Clopidogrel Bisulfate 75 MG Oral Tablet (Plavix) Take 1 Tablet by mouth in the morning. 90 Tablet 3 09/18/2023 Active Entresto 24-26 MG Oral Tablet (sacubitril-valsa rtan 24-26 mg per tab) Take 1 Tablet [...] 09/18/2023 Active Folic Acid 1 MG Oral TabletIndications :Arthritis, rheumatoid (HCC) TAKE 1 TABLET BY MOUTH EVERY DAY IN THE MORNING 90 Tablet 3 09/21/2023 Active Tee Ricardo In Vitro Strip (Glucose Blood) Type 2 diabetes, check blood sugars 2 times a day, in am and pm. 100 Strip 1 11/06/2023 Active predniSONE 5 MG Oral Tablet (Deltasone) 0 09/09/2023 11/06/2023 Discontinued (Patient preference/d iscontinuati on) documented as of this encounter (statuses as of 11/06/2023) Active Problems Problem Noted Date Diagnosed Date [...] glucose 12/16/2005 Macular degeneration 12/02/1999 DISC DIS [id number] documented as of this encounter (statuses as of 11/06/2023) Resolved Problems Problem Noted Date Diagnosed Date [...] colonoscopy in 5 years ARTHRITIS,RHEUMATOID 07/07/2006 016 [id number] 07/07/200611/01 Overview: Renamed Per Clinical Trials Billing Project. Pt is a participant in the [facility] (Consortium of Rheumatology Researchers of [place]) national data collection study. For further information please call Dr Hari Clark or Julia White, RN, CCRC at [phone] [facility] RESEARCH OTHER*[id number] 07/07/2006 01/28/2010 Overview: Renamed Per Clinical Trials Billing Project. Pt is a participant in the [facility] (Consortium of Rheumatology Researchers of [facility]) national data collection study. For further information please call Dr Hari Clark or Julia White, RN, CCRC at [phone] Hearing loss 12/02/1999 03/29/2013 documented as of this encounter (statuses as of 11/06/2023) Immunizations Name Administration Dates Next Due COVID-19 mRNA, LNP-s, No Pre serve, 2-Dose Series (IfOnly) 06/14/2021,10/10/2020,09/12/2020 COVID-19, LNP-s, No Preserve , Yousuf-sucrose, [...] Sign Reading Time Taken Comments Blood Pressure 124/62 11/06/2023 10:58 AM EDT Pulse 64 11/06/2023 10:58 AM EDT Temperature 35.9 C (96.6 F) 11/06/2023 10:58 AM E DT Respiratory Rate 16 11/06/2023 10:58 AM EDT Oxygen Saturation 98% 11/06/2023 10:58 AM EDT Inhaled Oxygen Concentration - - Weight 136.1 kg (300 lb) 11/06/2023 10:58 AM EDT Height - - Body Mass Index 38 09/09/2023 10:58 AM EST documented in this encounter Patient Instructions * Patient Instructions* Luba Mondragon LPN - 11/06/2023 11:00 AM EDT Osteoporosis: Screening for Bone Loss The [...] more than one site may be scanned. [phone] [facility], [address] [place] [address], [place] [address]. All rights reserved. This information is not intended as a substitute for professional medical care. Always follow your healthcare professional's instructions documented in this encounter Progress Notes * Rhianna Huitron, - 11/06/2023 11:13 AM EDT Subjective: Markus Wharton is a 78 year old male. Chief Complaint Patient presents with Follow Up Pt here for follow up visit HPI: 78 year old male here today for a follow-up. He has type 2 diabetes, Dyslipidemia, HTN, Obesity, prostate cancer, RA, and recently in Aug had a [place]. He had heart cath and had 70 % blockage of LAD and had stent placed. His echo showed a reduction inhis EF of 30-35 %/ he was started on Crestor, Entresto and Metoprolol. The Zytiga he was on for prostate cancer was held as this was thought to be a contributing factor. Still wearing life vest and has arranged echo end of this month and follow-up with Dr Greenfield. He remains on Lupron for his Prostate Cancer. Today he is feeling tired. At times weak. His Entresto was cut in half due to low BP and dizziness.This seems to be better, but reports sweats at times, more so when he eats carbs. He does not have a meter at home, his diabetes is diet controlled. Would be willing to get a meter. I did give him one from the pharmacy a One Touch. PHM: Patient Active Problem List Diagnosis Code Macular degeneration H35.30 DISC DIS [id number] M51.9 Impaired fasting glucose R73.01 ADVANCE DIRECTIVE [...] management only M81.0 Diabetes mellitus without complication (HCC) E11.9 Prostate cancer (HCC) C61 Type 2 diabetes mellitus with stage 3a chronic kidney disease (HCC) E11.22, N18.31 Heart failure (HCC) I50.9 Chronic kidney disease, stage 3a (HCC) N18.31 Current Outpatient Medications Medication Sig Dispense [...] 1 Tablet before bedtime. 180 Tablet 3 Clopidogrel Bisulfate 75 MG [...] DAY IN THE MORNING 90 Tablet 3 No current facility-administered medications for this visit. Review of patient's allergies indicates: Allergen Reactions Fosamax [Alendronate Sodium] Muscle pain Heartburn, constipation, joint pain Misoprostol Diarrhea Niaspan [Niacin Er] Gas, hot flashes Pollen Watery eyes, sneezing Pravastatin Upset stomach, all .Statins Simvastatin Upset stomach Brent Inhibitors Cough Objective: BP 124/62 | Pulse 64 | Temp 35.9 C (96.6 F) (Infrared ) | Resp 16 | Wt 136.1 kg (300 lb) | MuI490% | BMI 38.00 kg/m | BSA 2.67 m Physical Exam: General: alert, healthy, no distress, and pale Heart: regular rate & rhythm, no murmur, and no gallops. Wearing life vest. Lungs: chest symmetric with normal AP diameter, no chest deformities noted, no chest wall tenderness, lungs clear to auscultation Abdomen: abdomen soft, non-tender, normal bowel sounds, and no masses or organomegaly Extremities: no edema ASSESSMENT/PLAN: HTN, goal below 130/80 (Primary) Osteoporosis with symptom management only Type 2 diabetes mellitus with stage 3a chronic kidney disease (HCC) - HEMOGLOBIN A1C; Future; Expected date: 11/06/2023 Type 2 diabetes mellitus with stage 3a chronic kidney disease, unspecified whether buttermilk drier operator insulin use (HCC) Prostate cancer (HCC) Rheumatoid arthritis involving multiple sites with positive rheumatoid factor (HCC) Chronic kidney disease, stage 3a (HCC) Systolic heart failure, unspecified HF chronicity (HCC) Low magnesium level - MAGNESIUM; Future; Expected date: 11/06/2023 Rhianna Huitron DO * Luba Mondragon LPN - 11/06/2023 11:00 AM EDT Dexa scan ordered today. Provider aware. Luba Mondragon LPN Urine albumin/creatinine ratio ordered today. Provider aware. documented in this encounter Nursing Notes * Luba Mondragon LPN - 11/06/2023 10:56 AM EDT Chief Complaint Patient presents with Follow Up Pt here for follow up visit documented in this encounter Plan of Treatment Upcoming Encounters Date Type Department Care Team (Late st Contact Info) Description 12/01/2023 2:30 PM EDT Cardiac Studies Card[facility] Studies, [facility] [place] [address] 12/08/2023 9:30 AM EDT Office Visit Cardiology, [facility] [address] [facility] [place] [address] Dmitri Greenfield DO [address] [place] [address] 12/17/2023 10:30 AM EDT Nurse Only Urology, [facility] [address] [facility] [place] [address] Nurse Garrett Urology [facility] 132 [facility] [place] [address] 12/22/2023 10:45 AM EDT Office Visit Hematology/Oncology [facility] [address] [facility] [place] [phone] Patrice Puente MD [address] [facility] [place] [address] 03/14/2024 11:15 AM EDT Office Visit Urology, [facility] 132 [facility] [place] [address] Vinay Sexton MD [address] [facility] [address] [place] [address] 05/13/2024 11:50 AM EDT Office Visit [facility] [address] [place] [phone] Rhianna Huitron, DO [address] [place] [address] 05/19/2024 10:20 AM EDT Office Visit Rheumatology [address] [place] [address] Mendel Wilson MD [address] [place] [address] [place] [address] Pending Results Name Type Priority Associated Diagnoses Date /Time HEMOGLOBIN A1C Lab Routine Type 2 diabetes mellitus with stage 3a chronic kidney disease (HCC) 11/06/2023 11:47 AM EDT MAGNESIUM Lab Routine Low magnesium level 11/06/2023 11:47 AM EDT Scheduled Orders Name Type Priority Associated Diagnoses Orde r Schedule HEMOGLOBIN A1C Lab Routine Expected: 11/06/2023 (Approximate), Expires: 11/05/2024 MAGNESIUM Lab Routine Low magnesium level Expected: 11/06/2023 (Approximate), Expires: 11/05/2024 Scheduled Procedures Name Priority Associated Diagnoses Date/Ti me COLONOSCOPY FLEXIBLE PROXIMAL DIAGNOSTIC Recall Hx of colonic polyps Health Maintenance Due Date Last Done Comments CKD PHOS USE SMARTSET 05917 02/23/1963 DXA Scan 01/10/2021 01/10/2019, 12/2005, 07/07/2006 [...] Additional history exists CKD HGB USE SMARTSET 82979 09/09/202409/09, 09/09/2023, 07/06/2023, Additional history exists DTaP,Tdap,and Td Vaccines (3 - Td or Tdap) 12/04/2026 12/04/2016, 12/03/2006, 12/15/1996, Additional history exists Pneumococcal Vaccine: 65+ Years Completed 10/02/2014, 09/01/2011, 07/07/2006 Zoster Vaccines Completed 01/05/2020, 08/05, 10/02/2014 VITAMIN D LEVEL ONCE IN A LIFETIME-USE SMARTSET# [id number] Completed 05/27/2021, 09/07/2019, 01/10/2019, Additional history exists [...] as of this encounter Visit Diagnoses Diagnosis HTN, goal below 130/80- Primary Unspecified essential hypertension Osteoporosis with symptom management only Osteoporosis, unspecified Type 2 diabetes mellitus with stage 3a chronic kidney disease, unspecified whether correction insulin use (HCC) Prostate cancer (HCC) Malignant neoplasm of prostate Rheumatoid arthritis involving multiple sites with positive rheumatoid factor (HCC) Chronic kidney disease, stage 3a (HCC) Systolic heart failure, unspecified HF chronicity (HCC) Low magnesium level documented in this encounter Care Teams Director Process Relationship Specialty Start Date End Date Rhianna Huitorn DO [address] [place] [address] PCP - General Family Medicine 07/11/19 documented as of this encounter"
--- OUTSIDE RECORDS SUMMARY | 2024-04-01 00:17 | External Medical Summary | Summary of Care ---
Author Name Unknown Organization [facility] Address [address] [place] [address] Phone [phone] Care Team Providers Care Invas Tech Name Role Phone Rhianna Huitron DO Primary Care Provider Reason for Visit * Reason Comments Outpatient Testing Encounter Details Date Type Department Care Team (Late st Contact Info) Description 11/06/2023 11:50 AM EDT Laboratory Laboratory, [place] [address] [place] [address] [place], [facility] [address] [place] [address] Prostate cancer (HCC); Type 2 diabetes mellitus with stage 3a chronic kidney disease (HCC); Low magnesium level Allergies Active Allergy [...] 01/02/2023 Active Methotrexate Sodium 2.5 MG Oral TabletIndications:Ar [...] 09/18/2023 Active Entresto 24-26 MG Oral Tablet (sacubitril-valsarta n 24-26 mg per tab) Take 1 Tablet [...] THE MORNING 90 Tablet 3 09/21/2023 Active documented as of this encounter (statuses [...] glucose 12/16/2005 Macular degeneration 12/02/1999 DISC DIS [id number] documented as of this encounter (statuses as [...] colonoscopy in 5 years ARTHRITIS,RHEUMATOID 07/07/2006 016 [id number] 07/07/200611/01 Overview: Renamed Per Clinical Trials Billing Project. Pt is a participant in the [employer] (Consortium of Rheumatology Researchers [place]) national data collection study. For further information please call Dr Hari Clark or Julia White, RN, CCRC at [phone] [facility] RESEARCH OTHER*[id number] 07/07/2006 01/28/2010 Overview: Renamed Per Clinical Trials Billing Project. Pt is a participant in the [employer] (Consortium of Rheumatology Researchers [place] national data collection study. For further information please call Dr Hari Clark or Julia White RN, CCRC at [phone] Hearing loss 12/02/1999 03/29/2013 documented as of [...] 2:30 PM EDT [facility] [address] [facility] [place] [address] 12/08/2023 9:30 AM EDT Office Visit Cardiology, [facility] [address] [facility] [place] [address] Dmitri Greenfield, [address] [place] [address] 12/17/2023 10:30 AM EDT [facility] [address] [place] [address] Garrett Nurse Urology [place] [address] [place] [address] 12/22/2023 10:45 AM EDT Office Visit Hematology/Oncology [facility] [address] [facility] [place] [phone] Patrice Puente MD [address] [facility] [place] [address] 03/14/2024 11:15 AM EDT Office Visit Urology, [facility] [place] [address] Vinay Sexton MD [address] [place] [address] [place] [address] 05/13/2024 11:50 AM EDT Office Visit Family [facility] [address] [place] [phone] Rhianna Huitron DO [address] [place] [address] 05/19/2024 10:20 AM EDT Office Visit Rheumatology [facility] [address] [facility] [place] [address] Mendel Wilson MD [address] [facility] [place] [address] Pending Results Name Type Priority Associated Diagnoses Date /Time PSA Lab Routine Prostate cancer (HCC) 11/06/2023 11:47 AM EDT HEMOGLOBIN A1C Lab Routine Type 2 diabetes mellitus with stage 3a chronic kidney disease (HCC) 11/06/2023 11:47 AM EDT MAGNESIUM Lab Routine Low magnesium level 11/06/2023 11:47 AM EDT Scheduled Procedures Name Priority Associated Diagnoses Date/Ti me COLONOSCOPY FLEXIBLE PROXIMAL DIAGNOSTIC Recall Hx of colonic polyps Health Maintenance Due Date Last Done Comments CKD PHOS USE SMARTSET 05163 02/23/1963 DXA Scan 01/10/2021 01/10/2019, 12/0 12/2005, [...] Additional history exists CKD HGB USE SMARTSET 70171 09/09/202409/09, 09/09/2023, 07/06/2023, Additional history exists DTaP,Tdap,and Td Vaccines (3 - Td or Tdap) 12/04/2026 12/04/2016, 12/03/2006, 12/15/1996, Additional history exists Pneumococcal Vaccine: 65+ Years Completed 10/02/2014, 09/01/2011, 07/07/2006 Zoster Vaccines Completed 01/05/2020, 08/05, 10/02/2014 VITAMIN D LEVEL ONCE IN A LIFETIME-USE SMARTSET# 45067 Completed 05/27/2021, 09/07/2019, 01/10/2019, Additional history exists [...] Prostate cancer (HCC) Malignant neoplasm of prostate Type 2 diabetes mellitus with stage 3a chronic kidney disease (HCC) Low magnesium level documented in this encounter Care Teams Invas Tech Relationship Specialty Start Date End Date Rhianna Huitron DO [address] [place] [address] PCP - General Family Medicine 07/11/19 documented as of this encounter
--- OUTSIDE RECORDS SUMMARY | 2024-04-01 00:17 | External Medical Summary | Summary of Care ---
Author Name Unknown Organization [facility] Address [address] [facility] [address] Phone [phone] Care Team Providers Care Mandolin Repair Person Name Role Phone Rhianna Huitron DO Primary Care Provider [phone] Encounter Details Date Type Department Care Team (Late st Contact Info) Description 12/23/2023 Telephone Urology, [facility] [address] [place] [facility] [place] [address] Vinay Sexton MD [address] [facility] [address] [place] [address] Allergies Active Allergy Reactions [...] glucose 12/16/2005 Macular degeneration 12/02/1999 DISC DIS [id number] documented as of this encounter (statuses as [...] colonoscopy in 5 years ARTHRITIS,RHEUMATOID 07/07/2006 016 [id number] 07/07/200611/01 Overview: Renamed Per Clinical Trials Billing Project. Pt is a participant in the [facility] (Consortium of Rheumatology Researchers [place] national data collection study. For further information please call Dr Hari Clark or Julia White, RN, CCRC at [phone] [facility] RESEARCH OTHER*[id number] 07/07/2006 01/28/2010 Overview: Renamed Per Clinical Trials Billing Project. Pt is a participant in the [facility] (Consortium of Rheumatology Researchers of [facility]) national data collection study. For further information please call Dr Hari Clark or Julia White, RN, CCRC at [phone] Hearing loss 12/02/1999 03/29/2013 documented as of this encounter (statuses as of 12/23/2023) Immunizations Name Administration Dates Next Due COVID-19 mRNA, LNP-s, No Pre serve, 2-Dose Series ([place]) 06/14/2021,10/10/2020,09/12/2020 COVID-19, LNP-s, No Preserve , Yousuf-sucrose, [...] 12/25/2023 2:00 PM EDT [facility] [address] [place] [address] Korin Fisher CRNP [address] [facility] [place] [address] 12/29/2023 9:30 AM EDT Nurse Only Urology, [facility] [place] [address] [place] [address] Nurse Garrett Urology [place] [address] [place] [address] 03/14/2024 11:15 AM EDT Office Visit Urology, [facility] [address] [place] [address] Vinay Sexton MD [address] [facility] [address] [place] [address] 05/13/2024 11:50 AM EDT Office Visit Family [place] [address] [place] [phone] Rhianna Huitron [address] [place] [address] 05/19/2024 10:20 AM EDT Office Visit Rheumatology [address] [place] [address] Mendel Wilson MD [facility] [place] [address] 05/26/2024 10:30 AM EDT Office Visit Cardiology, [facility] [address] [place] [address] Dmitri Greenfield, [address] [place] [address] Scheduled Procedures Name Priority Associated Diagnoses Date/Ti me COLONOSCOPY FLEXIBLE PROXIMAL DIAGNOSTIC Recall Hx of colonic polyps Health Maintenance Due Date Last Done Comments CKD PHOS USE SMARTSET 49906 02/23/1963 DXA Scan 01/10/2021 01/10/2019, 1212/2005, 07/07/2006 Depression [...] Additional history exists CKD HGB USE SMARTSET 42441 09/09/202409/09, 09/09/2023, 07/06/2023, Additional history exists HbA1c [...] D LEVEL ONCE IN A LIFETIME-USE SMARTSET# 37541 Completed 05/27/2021, 09/07/2019, 01/10/2019, Additional history exists [...] filedocumented as of this encounter Care Teams Mandolin Repair Person Relationship Specialty Start Date End Date Rhianna Huitron DO [address] [place] [address] PCP - General Family Medicine 07/11/19 documented as of this encounter
--- OUTSIDE RECORDS SUMMARY | 2024-04-01 00:17 | External Medical Summary ---
Author Name Unknown Address Unknown Organization K09:[id number] [address] [place] [address] Laboratory Report Ordering Provider Test Date Status JOHNATHON CASILLAS 12/25/2023 14:31:03 Final Observation Date Value Abnormality Reference (Units ) Status BUN 12/25/2023 14:31:03 32 Above high normal 6-20 (mg/dL) Final Creatinine 12/25/2023 14:31:03 1.4 Above high normal 0.6-1.2 (mg/dL) Final Glomerular filtration rate/1.73 sq M.predicted [Volume Rate/Area] in Serum, Plasma or Blood by Creatinine-based formula (CKD-EPI) 12/25/2023 14:31:03 50 Below low normal >=60 (mL/min) Final eGFR is calculated based on the CKD-EPI 2020 equation Sodium 12/25/2023 14:31:03 138 135-146 (m mol/L) Final Potassium 12/25/2023 14:31:03 4.6 3.5-5.1 (m mol/L) Final Cl 12/25/2023 14:31:03 101 98-107 (mm ol/L) Final CO2 12/25/2023 14:31:03 27 22-32 (mmo l/L) Final Anion gap 12/25/2023 14:31:03 10 7-15 (mmol /L) Final Glucose 12/25/2023 14:31:03 137 Above high normal 70 -120 (mg/dL) Final Albumin 12/25/2023 14:31:03 3.6 Below low normal 3.8 -5.0 (g/dL) Final AST (Aspartate aminotransferase) 12/25/2023 14:31:03 16 10-50 (U/L) Fin al Alk Phos 12/25/2023 14:31:03 90 35-130 (U/ L) Final Bilirubin, Total 12/25/2023 14:31:03 0.2 <=1 .2 (mg/dL) Final Calcium 12/25/2023 14:31:03 9.5 8.4-10.2 ( mg/dL) Final Protein 12/25/2023 14:31:03 7.4 6.0-8.3 (g /dL) Final ALT (Alanine aminotransferase) 12/25/2023 14:31:03 16 10-50 (U/L) Joe jones Performing Location [facility] [address] [place] [address]
--- OUTSIDE RECORDS SUMMARY | 2024-04-01 00:17 | External Medical Summary ---
Author Name Unknown Address Unknown Organization K01:[facility] [address] [place] [address] Laboratory Report Ordering Provider Test Date Status JOHNATHON CASILLAS 12/25/2023 14:31:03 Final Observation Date Value Abnormality Reference (Units ) Status PSA 12/25/2023 14:31:03 0.05 <4.10 (ng/ mL) Final Performing Location [facility] - [address] [place] [id number]
--- OUTSIDE RECORDS SUMMARY | 2024-04-01 00:17 | External Medical Summary | Summary of Care ---
Author Name Unknown Organization [facility] Address [address] [facility] [address] Phone [phone] Care Team Providers Care Trademark Attorney Name Role Phone Rhianna Huitron DO Primary Care Provider [phone] Reason for Visit * Reason Comments eRx-Medication Refill Encounter Details Date Type Department Care Team (Late st Contact Info) Description 12/23/2023 Refill Urology, [facility] 132 [facility] [place] [address] Vinay Orozco MD [address] [place] [address] [place] [address] Allergies Active Allergy Reactions Criticality Noted [...] 06/19/2006 Active Methotrexate Sodium 2.5 MG Oral TabletIndication [...] this for 10 days. 20 Tablet 12/18/2023 4 Active Tamsulosin HCl 0.4 MG Oral Capsule (Flomax) TAKE 1 CAPSULE BY MOUTH EVERY MORNING 90 Capsule 3 12/23/2023 Active Tamsulosin HCl 0.4 MG Oral Capsule (Flomax) Take 1 Capsule by mouth in the morning. 90 Capsule 3 01/02/2023 4 Discontinued documented as of this encounter [...] glucose 12/16/2005 Macular degeneration 12/02/1999 DISC DIS [id number] documented as of this encounter (statuses as [...] colonoscopy in 5 years ARTHRITIS,RHEUMATOID 07/07/2006 016 [id number] 07/07/200611/01 Overview: Renamed Per Clinical Trials Billing Project. Pt is a participant in the [facility] (Consortium of Rheumatology Researchers of [place]) national data collection study. For further information please call Dr Hari Clark or Julia White, RN, CCRC at [phone] [facility] RESEARCH OTHER*[id number] 07/07/2006 01/28/2010 Overview: Renamed Per Clinical Trials Billing Project. Pt is a participant in the [facility] (Consortium of Rheumatology Researchers of [facility]) national data collection study. For further information please call Dr Hari Clark or Julia White, RN, CCRC at [phone] Hearing loss 12/02/1999 03/29/2013 documented as of this encounter (statuses as of 12/23/2023) Immunizations Name Administration Dates Next Due COVID-19 mRNA, LNP-s, No Pre serve, 2-Dose Series ([employer]) 06/14/2021,10/10/2020,09/12/2020 COVID-19, LNP-s, No Preserve , Yousuf-sucrose, [...] Miscellaneous Notes * Telephone Encounter - Vinay rOozco MD - 12/23/2023 8:31 AM EDTSigned Prescriptions: Disp Refills Tamsulosin HCl 0.4 MG Oral Capsule (Flomax)90 Cap*3 Sig: TAKE 1 CAPSULE BY MOUTH EVERY MORNING Authorizing Provider: VINAY OROZCO * Telephone Encounter - Monica Arroyo LPN - 12/23/2023 8:26 AM EDTPending Prescriptions: Disp Refills Tamsulosin HCl 0.4 MG Oral Capsule [Pharma*90 Cap*3 Sig: TAKE 1 CAPSULE BY MOUTH EVERY MORNING * Telephone Encounter - Monica Arroyo LPN - 12/23/2023 8:26 AM EDT Please refill the requested medication(s). Tamsulosin 09/22/2023 (in office), Visit date not found (telemedicine) 03/14/2024 Review of patient's allergies indicates: Allergen Reactions Fosamax [Alendronate Sodium] Muscle pain Heartburn, constipation, joint pain Misoprostol Diarrhea Niaspan [Niacin Er] Gas, hot flashes Pollen Watery eyes, sneezing Pravastatin Upset stomach, all .Statins Simvastatin Upset stomach Brent Inhibitors Cough documented in this encounter Plan of Treatment Upcoming Encounters Date Type Department Care Team (Late st Contact Info) Description 12/25/2023 2:00 PM EDT Office Visit Hematology/[facility] [address] [place] [address] Korin Fisher CRNP [address] [place] [address] 03/14/2024 11:15 AM EDT Office Visit Urology, [facility] [address] [place] [address] Vinay Orozco MD 27 [facility] [address] [place] [address] 05/13/2024 11:50 AM EDT Office Visit [facility] [address] [place] [address] Rhianna Huitron DO [address] [place] [address] 05/19/2024 10:20 AM EDT Office Visit [facility]umatology [place] [address] [facility] [place] [address] Mendel Wilson MD [address] [facility] [place] [address] 05/26/2024 10:30 AM EDT Office Visit Cardiology, [facility] [place] [address] Dmitri Green[place], 132 [facility] [place] [address] Scheduled Procedures Name Priority Associated Diagnoses Date/Ti me COLONOSCOPY FLEXIBLE PROXIMAL DIAGNOSTIC Recall Hx of colonic polyps Health Maintenance Due Date Last Done Comments CKD PHOS USE SMARTSET 96717 02/23/1964 DXA Scan 01/10/2021 01/10/2019, 12/2005, 07/07/2006 [...] Additional history exists CKD HGB USE SMARTSET 97228 09/09/202409/09, 09/09/2023, 07/06/2023, Additional history exists HbA1c [...] D LEVEL ONCE IN A LIFETIME-USE SMARTSET# [id number] Completed 05/27/2021, 09/07/2019, 01/10/2019, Additional history exists [...] filedocumented as of this encounter Care Teams Trademark Attorney Relationship Specialty Start Date End Date Rhianna Huitron DO [address] [place] [address] PCP - General Family Medicine 07/11/19 documented as of this encounter
--- OUTSIDE RECORDS SUMMARY | 2024-04-01 00:17 | External Medical Summary ---
Author Name Unknown Address Unknown Organization K01:[facility] [address] [place] [address] Laboratory Report Ordering Provider Test Date Status FIDENCIO ROSS 12/25/2023 14:31:03 Final Deficient: <20 ng/mL
Ins ufficient: 20-29 ng/mL
Recommended/Optimum:30-50 ng/mL

Vitamin D intoxication is rare. If suspicious of Vitamin D toxicity, evaluation of serum Calcium and PTH is recommended. Observation Date Value Abnormality Reference (Units ) Status 25-OH Vitamin D total 12/25/2023 14:31:03 28 >19 (ng/mL) Final Performing Location [facility] [address] [place] [address]
--- OUTSIDE RECORDS SUMMARY | 2024-04-01 00:17 | External Medical Summary | Summary of Care ---
Author Name Unknown Organization [facility] Address [address] [facility] [address] Phone [phone] Care Team Providers Care Youth Specialist Name Role Phone Rhianna Huitron DO Primary Care Provider [phone] Reason for Visit * Reason Onset Date Comments Test Results 12/02/2023 Encounter Details Date Type Department Care Team (Late st Contact Info) Description 12/02/2023 Telephone Cardiology, [facility] [address] [place] [address] Dmitri Greenfield, [address] [place] [address] Test Results Allergies Active Allergy Reactions Criticality Noted Date Comments Brent Inhibitors Cough Low 11/26/2017 Alendronate Sodium Muscle pain 04/11/2019 Heartburn, constipation, joint pain Misoprostol Diarrhea 08/08/2003 Niacin Er 11/26/2010 Gas, hot flashes Pollen 01/01/2018 Watery eyes, sneezing Pravastatin 02/26/2007 Upset stomach, all .Statins Simvastatin 02/26/2007 Upset stomach documented as of this encounter (statuses as of 12/02/2023) Medications Medication Sig Dispensed Refills Start Date [...] as of this encounter (statuses as of 12/02/2023) Active Problems Problem Noted Date Diagnosed Date [...] glucose 12/16/2005 Macular degeneration 12/02/1999 DISC DIS [id number] documented as of this encounter (statuses as of 12/02/2023) Resolved Problems Problem Noted Date Diagnosed Date [...] colonoscopy in 5 years ARTHRITIS,RHEUMATOID 07/07/2006 016 [id number] 07/07/200611/01 Overview: Renamed Per Clinical Trials Billing Project. Pt is a participant in the [employer] (Consortium of Rheumatology Researchers [place]) national data collection study. For further information please call Dr Hari Clark or Julia White, RN, CCRC at [phone] [facility] RESEARCH OTHER*[id number] 07/07/2006 01/28/2010 Overview: Renamed Per Clinical Trials Billing Project. Pt is a participant in the [employer] (Consortium of Rheumatology Researchers [place]) national data collection study. For further information please call Dr Hari Clark or Julia White, RN, CCRC at [phone] Hearing loss 12/02/1999 03/29/2013 documented as of this encounter (statuses as of 12/02/2023) Immunizations Name Administration Dates Next Due COVID-19 mRNA, LNP-s, No Pre serve, 2-Dose Series ([employer]) 06/14/2021,10/10/2020,09/12/2020 COVID-19, LNP-s, No Preserve , Yuosuf-sucrose, Ages 12+ (Pfizer) 12/25/2021 Covid-19, Mrna, Lnp-s, [...] Telephone Encounter - Dmitri Greenfield DO - 12/02/2023 5:02 PM EDT I called patient reviewed his echocardiogram results with him. Echocardiogram reveals that his ejection fraction has improved from 30% to 45%. He may discontinue his LifeVest. He was to continue his medications and keep his follow-up visit with me as scheduled for next week. Dmitri Greenfield DO documented in this encounter Plan of Treatment Upcoming Encounters Date Type Department Care Team (Late st Contact Info) Description 12/08/2023 9:30 AM EDT Office Visit Cardiology, [facility] [address] [facility] [place] [address] Dmitri Greenfield DO 132 [facility] [place] [address] 12/23/2023 11:00 AM EDT Nurse Only Urology, [facility] 132 [facility] [place] [address] [facility] [place] 132 [facility] [place] [address] 12/25/2023 2:00 PM EDT Office Visit Hematology/Oncology [facility] [place] [facility] [place] [id number] Korin Fisher CRNP 400 [facility] [place] [id number] 03/14/2024 11:15 AM EDT [facility] 132 [facility] [place] [address] Vinay Sexton MD [address] [place] [address] [place] [address] 05/13/2024 11:50 AM EDT Office Visit [address] [id number] Rhianna Huitron, [address] [place] [address] 05/19/2024 10:20 AM EDT Office Visit Rheumatology [address] [place] [address] Mendel Wilson MD [facility] [place] [address] Scheduled Procedures Name Priority Associated Diagnoses Date/Ti me COLONOSCOPY FLEXIBLE PROXIMAL DIAGNOSTIC Recall Hx of colonic polyps Health Maintenance Due Date Last Done Comments CKD PHOS USE SMARTSET 37641 02/23/1963 DXA Scan 01/10/2021 01/10/2019, 12/0 12/2005, [...] Additional history exists CKD HGB USE SMARTSET 96848 09/09/202409/09, 09/09/2023, 07/06/2023, Additional history exists DTaP,Tdap,and Td Vaccines (3 - Td or Tdap) 12/04/2026 12/04/2016, 12/03/2006, 12/15/1996, Additional history exists Pneumococcal Vaccine: 65+ Years Completed 10/02/2014, 09/01/2011, 07/07/2006 RETIRED - COLONOSCOPY-EVERY 5 YRS AGES 18-100 Discontinued 01/21/2019, 01/21/2019, 05/10/2013, Additional history exists Zoster Vaccines Completed 01/05/2020, 08/05, 10/02/2014 VITAMIN D LEVEL ONCE IN A LIFETIME-USE SMARTSET# 39315 Completed 05/27/2021, 09/07/2019, 01/10/2019, Additional history exists [...] filedocumented as of this encounter Care Teams Youth Specialist Relationship Specialty Start Date End Date Rhianna Huitron DO [address] [place] [address] PCP - General Family Medicine 07/11/19 documented as of this encounter
--- OUTSIDE RECORDS SUMMARY | 2024-04-01 00:17 | External Medical Summary ---
Author Name Unknown Address Unknown Organization K01:[facility] - [address] [place] [address] Laboratory Report Ordering Provider Test Date Status DESIREE STEPHENS 11/06/2023 11:47:50 Final Observation Date Value Abnormality Reference (Units ) Status Magnesium 11/06/2023 11:47:50 2.4 1.5-2.6 (m g/dL) Final Performing Location [facility] - [address] [place] [address]
--- OUTSIDE RECORDS SUMMARY | 2024-04-01 00:18 | External Medical Summary ---
Author Name Unknown Address Unknown Organization K01:[facility] - [address] [facility] [place] [address] Laboratory Report Ordering Provider Test Date Status PAM MURILLO 11/06/2023 11:47:50 Final Observation Date Value Abnormality Reference (Units ) Status PSA 11/06/2023 11:47:50 0.06 <4.10 (ng/ mL) Final Performing Location [facility] - [address] [place] [address]
--- OUTSIDE RECORDS SUMMARY | 2024-04-01 00:18 | External Medical Summary ---
Author Name Unknown Address Unknown Organization K01:[facility] - [facility] [address] [facility] [address] [facility] [address] Laboratory Report Ordering Provider Test Date Status DESIREE STEPHENS 11/06/2023 11:47:50 Final Observation Date Value Abnormality Reference (Units ) Status HbA1C 11/06/2023 11:47:50 6.0 Above high normal 4. 0-5.6 (%) Final The use of HbA1c to monitor glycemic status is based on normal hemoglobin and HbA composition. This test should not be used in patients with abnormal hemoglobin that affects the half life of the red blood cell or the in vivo glycation rates. Glucose, estimated average 11/06/2023 11:47:50 126 Above high normal <126 (mg/dL) Fin al Performing Location [facility] - [facility] [address]
--- OUTSIDE RECORDS SUMMARY | 2024-04-01 00:18 | External Medical Summary | Summary of Care ---
Author Name Unknown Organization [facility] Address [address] [place] [address] Phone [phone] Care Team Providers Care Brush Holder Assembler Name Role Phone Rhianna Huitron DO Primary Care Provider [phone] Encounter Details Date Type Department Care Team (Late st Contact Info) Description 10/06/2023 Result Scan Unspecified Department <No scans attached> Allergies Active Allergy Reactions Criticality Noted Date Comments Brent Inhibitors Cough Low 11/26/2017 Alendronate Sodium Muscle pain 04/11/2019 Heartburn, constipation, joint pain Misoprostol Diarrhea 08/08/2003 Niacin Er 11/26/2010 Gas, hot flashes Pollen 01/01/2018 Watery eyes, sneezing Pravastatin 02/26/2007 Upset stomach, all .Statins Simvastatin 02/26/2007 Upset stomach documented as of this encounter (statuses as of 10/08/2023) Medications Medication Sig Dispensed Refills Start Date [...] Tablet (Tylenol) 2 Tablets. 0 09/03/2023 Active predniSONE 5 MG Oral Tablet (Deltasone) 0 09/09/2023 Active Magnesium Oxide -Mg Supplement 400 (240 [...] as of this encounter (statuses as of 10/08/2023) Active Problems Problem Noted Date Diagnosed Date [...] glucose 12/16/2005 Macular degeneration 12/02/1999 DISC DIS [id number] documented as of this encounter (statuses as of 10/08/2023) Resolved Problems Problem Noted Date Diagnosed Date [...] colonoscopy in 5 years ARTHRITIS,RHEUMATOID 07/07/2006 016 [id number] 07/07/200611/01 Overview: Renamed Per Clinical Trials Billing Project. Pt is a participant in the [employer] (Consortium of Rheumatology Researchers [place] national data collection study. For further information please call Dr Hari Clark or Julia White, RN, CCRC at [phone] [facility] RESEARCH OTHER*[id number] 07/07/2006 01/28/2010 Overview: Renamed Per Clinical Trials Billing Project. Pt is a participant in the [employer] (Consortium of Rheumatology Researchers [place] national data collection study. For further information please call Dr Hari Clark or Julia White, RN, CCRC at [phone] Hearing loss 12/02/1999 03/29/2013 documented as of this encounter (statuses as of 10/08/2023) Immunizations Name Administration Dates Next Due COVID-19 [...] Description 11/06/2023 11:10 AM EDT Office Visit [place] [address] [place] [address] Rhianna Huitron [address] [place] [address] 12/01/2023 2:30 PM EDT [facility] [address] [facility] [place] [address] 12/08/2023 9:30 AM EDT Office Visit Cardiology, [facility] 132 [facility] [place] [address] Dmitri Greenfield, 132 [facility] [place] [address] 12/17/2023 10:30 AM EDT [facility] [address] [facility] [place] [address] [facility] [place] [facility] [place] [address] 12/22/2023 10:45 AM EDT Office Visit Hematology/Oncology [facility] 200 [facility] [address] Patrice Puente MD 200 [facility] [place] [address] 03/14/2024 11:15 AM EDT Office Visit Urology, [facility] [address] [place] [address] Vinay Sexton MD [address] [place] [address] [place] [address] 05/19/2024 10:20 AM EDT Office Visit Rheumatology [facility] [address] [place] [address] Mendel Wilson MD [address] [place] [address] Scheduled Procedures Name Priority Associated Diagnoses Date/Ti me COLONOSCOPY FLEXIBLE PROXIMAL DIAGNOSTIC Recall Hx of colonic polyps Health Maintenance Due Date Last Done Comments CKD PHOS USE SMARTSET 57150 02/23/1963 DXA Scan 01/10/2021 01/10/2019, 12/2005, 07/07/2006 [...] 03/09/2024 09/09/2023, 08/03, 07/21/2023, Additional history exists CKD HGB USE SMARTSET 67307 09/09/202409/09, 09/09/2023, 07/06/2023, Additional history exists DTaP,Tdap,and Td Vaccines (3 - Td or Tdap) 12/04/2026 12/04/2016, 12/03/2006, 12/15/1996, Additional history exists Pneumococcal Vaccine: 65+ Years Completed 10/02/2014, 09/01/2011, 07/07/2006 Zoster Vaccines Completed 01/05/2020, 08/05, 10/02/2014 VITAMIN D LEVEL ONCE IN A LIFETIME-USE SMARTSET# [id number] Completed 05/27/2021, 09/07/2019, 01/10/2019, Additional history exists [...] Procedure Name Priority Date/Time Associated Diagnosis Comments OUTSIDE LAB RESULTS 10/06/2023 documented in this encounter Results * OUTSIDE LAB RESULTS (10/06/2023) 10/06/2023 No Physician Data Unknown LABORATORY documented in this encounter Care Teams Brush Holder Assembler Relationship Specialty Start Date End Date Rhianna Huitron DO [address] [place] [address] PCP - General Family Medicine 07/11/19 documented as of this encounter
[2024-04-01] MEDS: SODIUM CHLORIDE 0.9% 1,000 ML IV SCH (00:23)
[2024-04-01] MEDS: METOPROLOL TARTRATE 1 MG/ML VIAL IV STA (03:10)
[2024-04-01 03:32] LABS: Hematocrit (blood only) 30.4 % (42.0-52.0); Hemoglobin 10.1 g/dl (14.0-18.0); Mean Corpuscular Hemoglobin 27.9 pg (25.0-34.0); Mean Corpuscular Hgb Conc 33.2 g/dL (32.0-36.0); Mean Platelet Volume 9.6 fL (9.4-12.4); Platelet Count 312 K/uL (130-400); RDW Coefficient of Variation 15.9 % (11.5-14.5); Red Blood Count 3.62 M/uL (4.70-6.10); White Blood Count 16.56 K/ul (4.8-10.8)
[2024-04-01 03:50] LABS: BUN Creatinine Ratio 12.4 (10-20); Calcium 8.1 mg/dl (8.6-10.3); Creatinine Clr Calc Pharmacy 77.4 ml/min; Est GFR (African American) 71.8 ml/min; Est GFR (Non-African American) 61.9 ml/min; Magnesium 1.8 mg/dl (1.7-2.4); Potassium 3.5 mmol/L (3.5-5.1)
[2024-04-01] MEDS: ACETAMINOPHEN 325 MG TAB PO PRN (04:17)
[2024-04-01 04:20] LABS: Basophils # (auto) 0.02 K/uL (0.00-0.20); Basophils % (auto) 0.1 %; Eosinophils # (auto) 0.01 K/uL (0.00-0.50); Eosinophils % (auto) 0.1 %; Immature Granulocytes # (auto) 0.08 K/uL (0.01-0.20); Immature Granulocytes % (auto) 0.5 %; Lymphocytes % (auto) 1.2 %; Monocytes % (auto) 1.8 %; Neutrophils # (auto) 15.95 K/uL (1.40-6.50); Neutrophils % (auto) 96.3 %; Polychromasia 1+
[2024-04-01] MEDS: bisacodyL 10 MG SUPP PR ONE (06:45)
[2024-04-01] MEDS: LACTULOSE SYRUP 30 GM/45 ML UDP PO ONE (06:45)
--- NOTE | 2024-04-01 07:34 | XRay Report ---
XR chest 1V portable CLINICAL HISTORY: weakness COMPARISON STUDY: Chest radiograph and chest CT September 01, 2023. FINDINGS: Lung volumes are normal. Lungs are clear. There is no pneumothorax or pleural effusion. Car diomegaly is unchanged. Mediastinal contours are normal. There is no evidence for pulmonary edema. IMPRESSION: No acute cardiopulmonary findings. No change in appearance of the chest. ACT 112: Negative or not required by law. Electronically signed by: Anup Garduno M.D. 04/01/2024 7:32 AM
[2024-04-01] MEDS: NYSTATIN POWDER 15GM BTL EXT SCH (08:05)
[2024-04-01] MEDS: HEPARIN SOD 5,000 UNIT/0.5 ML VIAL SQ SCH (08:06)
[2024-04-01] MEDS: CLOPIDOGREL BISULFATE 75 MG TAB PO SCH (08:06)
[2024-04-01] MEDS: ASPIRIN 81 MG ECTAB PO SCH (08:06)
[2024-04-01] MEDS: TAMSULOSIN HCL 0.4 MG CAP PO SCH (08:07)
[2024-04-01] MEDS: METOPROLOL SUCC 25MG EXT REL TAB PO SCH (08:07)
[2024-04-01] MEDS: LOSARTAN POTASSIUM 25 MG TAB PO SCH (08:07)
[2024-04-01] MEDS: FOLIC ACID 1 MG TAB PO SCH (08:07)
[2024-04-01 08:18] LABS: Estimated Average Glucose 143 mg/dl; Hemoglobin A1C 6.6 % (4.5-5.6)
--- NOTE | 2024-04-01 08:46 | Hospitalist Progress Note ---
Date of Service April 01, 2024 Assessment & Plan (1) Generalized weakness: Plan: 79-year-old male with past medical history significant for prediabetes, hyperlipidemia, hypertension, history of chronic systolic CHF, history of CAD s/p stent, morbid obesity, prostate cancer, chronic kidney disease stage III, degenerative disc disease, osteoporosis, macular degeneration, Fuchs corneal dystrophy, rheumatoid arthritis, presents with weakness and found to have UTI. Generalized weakness Ambulatory dysfunction Acute UTI Patient presented with generalized weakness Urinalysis suggestive of infection CT abdomen pelvis shows bladder wall thickening and surrounding fatty stranding. Large amount of stool in colon. Urine culture growing gram-negative bacilli on Zosyn; follow-up on urine culture. Blood culture ordered PT OT eval History of CAD status post LAD stent in 09/26 Elevated troponin, Possible demand ischemia EKG on admission shows sinus tachycardia with PVC; nonspecific ST wave changes Patient denies chest pain/discomfort High-sensitivity troponin elevated from 14.8 to 95, then downtrended Echo shows EF of 50%, borderline diffuse LV hypokinesis present Continue on aspirin, Plavix and statin Cardiology consulted; appreciate recommendation Type 2 diabetes mellitus HbA1c 6.6% Discussion to be done with patient regarding with the starting medication versus dietary measures. Plan to continue lifestyle changes for now. History of chronic systolic CHF EF 45% echo done in November 2023 On losartan and metoprolol succinate Monitor for volume overload History of prostate cancer Status post radiation Currently on Lupron shots Follows with oncology and urology Hypertension On losartan and metoprolol succinate, continue BPH On Flomax Straight caths Urology consult due to inability to straight cath. CKD stage III Baseline creatinine 1.2-1.4 Creatine at baseline Rheumatoid arthritis Will hold methotrexate for now during active infection DVT prophylaxis Heparin subcu Disposition Med/telemetry Full code Time spent evaluating patient, direct bedside care, chart review, placing orders, interpretation of diagnostic studies, discussion with consultants, patient, and family members, as well as other required patient management activities is 50 minutes Please note the above document was generated using voice recognition software. It may contain grammatical, syntax or spelling errors. Any formal questions or concerns about the content, text or information contained within the body of this dictation should be directly addressed to the provider for clarification Admission and Anticipated Discharge Date Admission Date: March 31, 2024 Subjective Patient seen and examined at bedside. Comfortable; not in distress. Reports weakness in bilateral LE. No significant overnight events Review of Systems Review of Systems: All systems reviewed & are unremarkable except as noted in Subjective Physical Exam Physical Exam: General- Not in distress Head- atraumatic Eyes- PERRL. ENT- oropharynx clear Neck- supple, no JVD. Lungs- clear to auscultation no wheezing or crackles. Heart- regular rhythm; no murmur, no gallop. Abdomen- normal bowel sounds, soft, nontender, no distension Extremities- no pretibial edema, no erythema seen Neuro- alert, oriented PERRL, no facial palsy; no dysarthria; moves extremities. LE strength-4/5 Results & Data Results & Data Vital Signs (Past 12 Hours) Vital Signs Temp Pulse Pulse Pulse Resp BP BP 04/01/24 08:07 36.4 C L 89 18 109/66 04/01/24 07:49 04/01/24 05:32 105 H 04/01/24 03:25 97 H 122/68 04/01/24 03:25 36.8 C 97 H 18 122/68 04/01/24 03:10 135 H 109/67 04/01/24 02:55 135 H 109/67 04/01/24 02:13 37.5 C 136 H 16 151/89 H 04/01/24 00:06 99 H 03/31/24 23:30 36.7 C 77 18 145/81 H 03/31/24 21:41 100 H 18 137/82 03/31/24 21:22 92 H Pulse Ox O2 Del Method 04/01/24 08:07 93 Room Air 04/01/24 07:49 Room Air 04/01/24 05:32 04/01/24 03:25 04/01/24 03:25 92 Room Air 04/01/24 03:10 04/01/24 02:55 04/01/24 02:13 95 Room Air 04/01/24 00:06 03/31/24 23:30 98 Room Air 03/31/24 21:41 95 Room Air 03/31/24 21:22
[2024-04-01] MEDS: ROSUVASTATIN CALCIUM 5 MG TAB PO SCH (10:26)
[2024-04-01] MEDS: 4.5GM X1 IV STA (11:25)
[2024-04-01] MEDS: MAGNESIUM HYDROXIDE SUSP 30 ML UDC PO SCH (11:25)
[2024-04-01] MEDS: POLYETHYLENE (MIRALAX) 17 GM PACK PO SCH (11:25)
--- NOTE | 2024-04-01 13:57 | Urology Consultation ---
Date of Consultation April 01, 2024 Assessment & Plan (1) Urinary retention: (2) Prostate cancer: (3) Acute cystitis: Plan 79 yo M admitted due to concerns for UTI. Afebrile, WBC of 16, Cr baseline, UA positive. CT scan showed no hydro, but did show a somewhat distended bladder with surrounding stranding. Bladder scan was 500cc and nursing was unable to successfully straight cath. Urology consulted. Patient reports a history of prostate cancer and he follows with Dr. Vinay Sexton. He completed radiation last year and is on Lupron. He has straight cathed himself for over a year. He had difficulty placing a cath in the emergency department and nursing were unable to do so here. Procedure: Verbal consent was obtained as this was deemed emergent. Patient was prepped and draped in a sterile fashion. I attempted to advance a 16 Slovak catheter but met resistance roughly at the level of the prostate. I remove this and then attempted to advance both a 5 Slovak open-ended catheter and a sensor wire but met resistance. At this time I opted to scope in a c atheter. I advanced a flexible cystoscope per urethra and ran into a necrotic appearing area in the bulbar/prostatic urethra from what I could tell. I did also. There was a false passage. There was no clear lumen and it took several minutes of careful manipulation of the scope before I was able to gain entry into the bladder. I advanced a sensor wire through the scope and backed the scope out over the wire. I then was able to advance a 20 Slovak miami tip catheter over the wire into the bladder. Wire was removed and there was return of cloudy urine. Balloon was inflated with 10 cc of sterile water and set to gravity drainage. Recommendations Continue broad-spectrum antibiotics Do not remove Bautista catheter. Would recommend catheter stays in place for at least 2 weeks. Instructed patient to call Dr. Sexton when he is discharged so they can develop a plan for catheter removal Recommend 14 days of antibiotics for complicated UTI Urology to sign off History of Present Illness Reason for Consultation: Difficult bautista catheter Attending Physician: Timoteo Erickson MD History of Present Illness 79 yo M admitted due to concerns for UTI. Afebrile, WBC of 16, Cr baseline, UA positive. CT scan showed no hydro, but did show a somewhat distended bladder with surrounding stranding. Bladder scan was 500cc and nursing was unable to successfully straight cath. Urology consulted. Allergies Allergy/AdvReac Type Severity Reaction Status Date / Time pollen extracts Allergy Mild WATERY Verified 03/31/24 17:40 EYES, SNEEZING Sulfa (Sulfonamide Allergy Unknown CAN'T Verified 03/31/24 17:40 Antibiotics) REMEMBER KUN Inhibitors AdvReac Intermediate Cough Verified 03/31/24 17:40 alendronate sodium AdvReac Intermediate MUSCLE & Verified 03/31/24 17:40 [From Fosamax] JOINT PAIN, HEARTBURN, CONSTIPATION misoprostol AdvReac Intermediate Diarrhea Verified 03/31/24 17:40 Wrtqusv-LJJ-TaY Reductase AdvReac Intermediate CONSTIPATION/UPSET Verified 03/31/24 17:40 Inhibitor STOMACH [Wjxshle-Hpy-Cuy Reductase Inhibitor] Home Medications Medication Instructions Recorded Confirmed Type folic acid 1 mg tablet 1 mg PO DAILY 04/04/20 03/31/24 History methotrexate sodium 2.5 mg tablet 12.5 mg PO WK 04/15/23 03/31/24 History tamsulosin 0.4 mg capsule 0.4 mg PO DAILY 04/15/23 03/31/24 History acetaminophen 325 mg tablet 650 mg (2 x 325 mg) PO Q4H PRN 09/03/23 03/31/24 Rx fever or pain #60 tabs aspirin 81 mg tablet,delayed 81 mg PO QAM #30 tabs 09/03/23 03/31/24 Rx release clopidogrel 75 mg tablet 75 mg PO QAM #30 tabs 09/03/23 03/31/24 Rx losartan 25 mg tablet 12.5 mg PO QAM 03/31/24 03/31/24 History metoprolol succinate 50 mg 25 mg PO BID 03/31/24 03/31/24 History tablet,extended release 24 hr rosuvastatin 5 mg tablet 5 mg 04/01/24 History Patient History Medical History (Updated 03/31/24 @ 20:13 by Daniela Balderrama MD) Left ventricular systolic dysfunction Degeneration of lumbosacral intervertebral disc Impaired fasting glucose Macular degeneration Fuchs' corneal dystrophy Frequent UTI Surgical History H/O colonoscopy History of prostate biopsy Family History Father Heart disease Stomach ulcer Mother Rheumatoid arthritis Social History Smoking Status: Former smoker Tobacco Type: Cigarettes Age Started Using Tobacco: 19; packs per day: 1; Second Hand Exposure: Yes; Do You Dip or Chew Tobacco: No; Hx Alcohol Use: No Hx Substance Use: No Preferred Language: Bolivian Communication Ability: Effective Visual Impairment: No Limitations Hearing Ability: Normal Book Or Script Editor Required: No Beliefs That Will Affect Care: None marital status: / Current Living Situation: Family Current Living Situation Comment: lives at home with daughter/son-in-law/granddaughter current occupational status: retired current occupation: [employer] Other Information That Helps Us Care for You: No Feels Safe at Home: Yes Safety Concerns: Feels Safe At This Time Diet: regular during the past year weight has: remained stable Assistive Devices: Cane and Walker Physical Exam Physical Exam: General: Alert and oriented, no acute distress HEENT: Normocephalic, mucous membranes moist Pulmonary: Nonlabored respirations Abdomen: Nondistended : Circumcised phallus with orthotopic meatus. Testicles descended bilaterally and palpably normal. No erythema, edema or crepitus in scrotum or perineal area. Extremities: Moves all 4 spontaneously Neuro: No gross deficits Skin: Warm, dry, no rashes noted Results & Data Vital Signs (Past 12 Hours) Vital Signs Temp Pulse Pulse Resp BP BP Pulse Ox 04/01/24 11:58 36.7 C 62 18 102/59 L 95 04/01/24 08:07 36.4 C L 89 18 109/66 93 04/01/24 07:49 04/01/24 05:32 105 H 04/01/24 03:25 97 H 122/68 04/01/24 03:25 36.8 C 97 H 18 122/68 92 04/01/24 03:10 135 H 109/67 04/01/24 02:55 135 H 109/67 04/01/24 02:13 37.5 C 136 H 16 151/89 H 95 O2 Del Method 04/01/24 11:58 Room Air 04/01/24 08:07 Room Air 04/01/24 07:49 Room Air 04/01/24 05:32 04/01/24 03:25 04/01/24 03:25 Room Air 04/01/24 03:10 04/01/24 02:55 04/01/24 02:13 Room Air PG Care Time/CCT Total # of Minutes Spent Total Time Spent with Patient: Total time spent is greater than 50% in coordination of care (as documented) at patient's floor/unit and/or counseling patient: Coding Level of Care Code 31472 INT INP/OBS CARE 2/55MIN Diagnoses Urinary retention R33.9 Prostate cancer C61 Acute cystitis N30.00
[2024-04-01] MEDS: PIPERACILLIN/TAZOBACTAM 4.5 GM/100 ML BAG IV SCH (15:34)
--- NOTE | 2024-04-01 15:41 | Cardiology Consultation ---
Date of Consultation April 01, 2024 Assessment & Plan (1) Acute cystitis: (2) Generalized weakness: (3) Frequent ventricular premature beats: Patient without any symptoms suggestive of angina. He is compensated from a CHF standpoint without volume overload or signs and symptoms of poor cardiac output. Patient with history of frequent PVCs. He missed a dose of metoprolol last evening, but it is continued as of now. As noted, he had previously been on metoprolol succinate 50 mg twice daily but was discontinued due to concerns of generalized weakness. In retrospect, patient and I both of concerns that may be the symptoms that prompted the reduction his cardiac medications were related to his impending urinary tract infection. Mild troponin elevation likely due to myocardial strain in the setting of noncardiac illness with noted sinus tachycardia overnight last night. Continue aspirin, clopidogrel, metoprolol, rosuvastatin. Patient is currently on Zosyn. Subcu heparin for DVT prophylaxis. History of Present Illness Attending Physician: Timoteo Erickson MD History of Present Illness Markus Wharton is a 79 year old male seen in cardiology consultation per the request of Dr Erickson given the patient's history of coronary heart disease and mild elevation in troponin. Patient known to the undersigned as I have followed him as an inpatient and outpatient since August,. Patient denies chest pain or SOB. At that time he presented to the emergency department with chief complaint of chest discomfort. In the emergency department he was found to have sinus tachycardia with frequent salvos of nonsustained ventricular tachycardia in the range of 3-5 beats in duration. He received IV amiodarone without improvement and also received a lidocaine infusion. EKG revealed subtle ST segment depression limited to lead V3. Coronary geography was performed by Dr. Alvarenga with stenosis of the mid LAD (70 to 75% mid LAD stenosis by IVUS evaluation) and mild to moderate nonobstructive disease noted elsewhere. He therefore underwent PCI with placement of a single 3 x 18 mm Xience drug-eluting stent. Ejection fraction at the time of presentation was reduced in the range of 30 to 35%. At discharge medications included metoprolol succinate 50 mg twice daily, Entresto 24/26 mg twice daily, aspirin, clopidogrel, and rosuvastatin. Previous treatment with Zytiga was discontinue due to its potential for causing cardiac arrhythmias. He was prescribed a [employer] LifeVest wearable defibrillator discharge. Attempt cardiology follow-up a repeat echocardiogram performed 3 months later revealed improvement in the ejection fraction and the LifeVest was discontinued. Patient had recently noted orthostatic hypotension and therefore Entresto was discontinued in favor of losartan 12.5 mg daily which she had been on before. Also per his request metoprolol succinate was reduced down to 25 mg twice daily. Patient presented to the emergency department yesterday with several days of progressive generalized fatigue. He has a history of prostate carcinoma. He has been seen by urology while in the hospital for concerns of acute cystitis and urinary retention. A Ingram catheter has been placed. Urinalysis consistent with UTI. Urinary culture yielding preliminary results of gram-negative bacilli. Blood culture x 1 obtained on 03/31/2024 with no growth thus far. Allergies Allergy/AdvReac Type Severity Reaction Status Date / Time pollen extracts Allergy Mild WATERY Verified 03/31/24 17:40 EYES, SNEEZING Sulfa (Sulfonamide Allergy Unknown CAN'T Verified 03/31/24 17:40 Antibiotics) REMEMBER KUN Inhibitors AdvReac Intermediate Cough Verified 03/31/24 17:40 alendronate sodium AdvReac Intermediate MUSCLE & Verified 03/31/24 17:40 [From Fosamax] JOINT PAIN, HEARTBURN, CONSTIPATION misoprostol AdvReac Intermediate Diarrhea Verified 03/31/24 17:40 Csqzjmq-OAR-PqW Reductase AdvReac Intermediate CONSTIPATION/UPSET Verified 03/31/24 17:40 Inhibitor STOMACH [Aexpcve-Uep-Acw Reductase Inhibitor] Home Medications Medication Instructions Recorded Confirmed Type folic acid 1 mg tablet 1 mg PO DAILY 04/04/20 03/31/24 History methotrexate sodium 2.5 mg tablet 12.5 mg PO WK 04/15/23 03/31/24 History tamsulosin 0.4 mg capsule 0.4 mg PO DAILY 04/15/23 03/31/24 History acetaminophen 325 mg tablet 650 mg (2 x 325 mg) PO Q4H PRN 09/03/23 03/31/24 Rx fever or pain #60 tabs aspirin 81 mg tablet,delayed 81 mg PO QAM #30 tabs 09/03/23 03/31/24 Rx release clopidogrel 75 mg tablet 75 mg PO QAM #30 tabs 09/03/23 03/31/24 Rx losartan 25 mg tablet 12.5 mg PO QAM 03/31/24 03/31/24 History metoprolol succinate 50 mg 25 mg PO BID 03/31/24 03/31/24 History tablet,extended release 24 hr rosuvastatin 5 mg tablet 5 mg 04/01/24 History Patient History Medical History Left ventricular systolic dysfunction Degeneration of lumbosacral intervertebral disc Impaired fasting glucose Macular degeneration Fuchs' corneal dystrophy Frequent UTI Surgical History H/O colonoscopy History of prostate biopsy Family History Father Heart disease Stomach ulcer Mother Rheumatoid arthritis Social History Smoking Status: Former smoker Tobacco Type: Cigarettes Age Started Using Tobacco: 19; packs per day: 1; Second Hand Exposure: Yes; Do You Dip or Chew Tobacco: No; Hx Alcohol Use: No Hx Substance Use: No Preferred Language: Algerian Communication Ability: Effective Visual Impairment: No Limitations Hearing Ability: Normal Crusher [employer]ica Required: No Beliefs That Will Affect Care: None marital status: / Current Living Situation: Family Current Living Situation Comment: lives at home with daughter/son-in-law/granddaughter current occupational status: retired current occupation: PA [employer] Other Information That Helps Us Care for You: No Feels Safe at Home: Yes Safety Concerns: Feels Safe At This Time Diet: regular during the past year weight has: remained stable Assistive Devices: Cane and Walker Review of Systems Cardiovascular: Additional Comments: Denies , chest pain, palpitations, SOB Physical Exam Constitutional: generalized weakness in the legs Respiratory: normal respiratory effort, lungs clear to auscultation Cardiovascular: Rate/Rhythm: regular rate Heart Sounds: normal S1 and normal S2; no murmur Extremities: no edema Results & Data Vital Signs (Past 12 Hours) Vital Signs Temp Pulse Pulse Resp BP Pulse Ox O2 Del Method 04/01/24 15:30 36.8 C 96 H 18 162/87 H 96 Room Air 04/01/24 12:59 96 H 04/01/24 11:58 36.7 C 62 18 102/59 L 95 Room Air 04/01/24 08:07 36.4 C L 89 18 109/66 93 Room Air 04/01/24 07:49 Room Air 04/01/24 05:32 105 H Laboratory Results Cardiac Enzymes 03/31/24 04/01/24 04/01/24 Range/Units 17:00 03:11 09:23 AST 13 (13-39) U/L Troponin I High Sens 14.8 95.0 H* D 87.6 H* (0-20) pg/ml Coagulation 03/31/24 Range/Units 17:00 PT 12.2 H (9.0-12.0) Seconds CBC 03/31/24 04/01/24 Range/Units 17:00 03:11 WBC 14.42 H 16.56 H (4.8-10.8) K/ul RBC 3.74 L 3.62 L (4.70-6.10) M/uL Hgb 10.1 L 10.1 L (14.0-18.0) g/dl Hct 32.3 L 30.4 L (42.0-52.0) % Plt Count 356 312 (130-400) K/uL Neut # (Auto) 12.48 H 15.95 H (1.40-6.50) K/uL Lymph # (Auto) 0.64 L 0.20 L (1.20-3.40) K/uL [place] # (Auto) 1.08 H 0.30 (0.11-0.59) K/uL Eos # (Auto) 0.09 0.01 (0.00-0.50) K/uL Baso # (Auto) 0.03 0.02 (0.00-0.20) K/uL Comprehensive Metabolic Panel 03/31/24 04/01/24 Range/Units 17:00 03:11 Sodium 131 L 129 L (136-145) mmol/L Potassium 4.0 3.5 (3.5-5.1) mmol/L Chloride 95 L 96 L (98-107) mmol/L Carbon Dioxide 27 23 (21-32) mmol/L BUN 15 14 (6-23) mg/dl Creatinine 1.14 1.13 (0.6-1.4) mg/dl Glucose 157 H 153 H (70-99(Fasting)) mg/dl Calcium 8.5 L 8.1 L (8.6-10.3) mg/dl AST 13 (13-39) U/L ALT 11 (7-52) U/L Alkaline Phosphatase 94 (34-104) U/L Total Protein 6.8 (6.0-8.3) gm/dl Albumin 3.0 L (3.4-5.0) gm/dl Intake and Output 04/01/24 04/01/24 04/01/24 06:59 14:59 22:59 Intake Total 220 / 770 666.25 / 1146.25 480 / 1146.25 Output Total Balance 220 / 770 663.25 / 1142.25 479 / 1142.25 Intake: IV 666.25 / 666.25 Piperacillin/Tazobactam 4.5 gm 100 / 100 In 100 ml @ 200 mls/hr IV NOW [facility] Rx#:[id number] Sodium Chloride 0.9% 1,000 ml @ 566.25 / 566.25 75 mls/hr IV .[id number] [facility] Rx#: [id number] Oral 220 / 220 480 / 480 Output: # Bowel Movements 3 / 4 Other: # Unmeasured Voids 1 Weight 130.6 kg Weight Measurement Method Built in [facility] Diagnostic Findings Initial EKG tracing performed admission revealed sinus tachycardia. Repeat this morning at 9:59 AM revealed sinus rhythm 88 bpm with frequent PVCs. Not different than his baseline. Echocardiogram performed today revealed borderline to mild diffuse left ventricular hypokinesis, LVEF lower limit of normal, 50%
[2024-04-01 16:07] LABS: Appearance Urine Turbid (Clear); Bacteria Urine Automated 2+ (None Seen); Bilirubin Urine Negative (Negative); Blood Urine 3+ (Negative); Cast Urine Automated >20 /lpf (0-2); Color Urine Dark Yellow; Glucose Urine UA Negative (Negative); Ketones Urine Trace (Negative); Leukocyte Esterase Urine 3+ (Negative); Nitrite Urine Negative (Negative); Protein Urine 4+ (Negative); RBC Urine Automated >20 /hpf (0-2); Specific Gravity Urine 1.027 (1.000-1.030); Urobilinogen Urine Negative (Negative); WBC Urine Automated >50 /hpf (0-5); pH Urine 5.5 (4.5-7.5)
[2024-04-01] MEDS ORDERED: cefTRIAXone SODIUM 2,000 MG/50 ML BAG IV SCH (20:00)
--- NOTE | 2024-04-02 00:44 | Electrocardiogram Report ---
Test Reason : Blood Pressure : */* mmHG Vent. Rate : 88 BPM Atrial Rate : 88 BPM P-R Int : 158 ms QRS Dur : 84 ms QT Int : 398 ms P-R-T Axes : 87 47 71 degrees QTcB Int : 481 ms Sinus rhythm with frequent Premature ventricular complexes Otherwise normal ECG When compared with ECG of 02-Sep-2023 14:24, Premature ventricular complexes are now Present ST no longer elevated in Inferolateral leads Confirmed by Shaan Ramos ([id number]) on 04/02/2024 12:44:01 AM Referred By: REFERRED SELF Confirmed By: Shaan Ramos
--- NOTE | 2024-04-02 00:46 | Electrocardiogram Report ---
Test Reason : Blood Pressure : */* mmHG Vent. Rate : 135 BPM Atrial Rate : 135 BPM P-R Int : 128 ms QRS Dur : 90 ms QT Int : 308 ms P-R-T Axes : 8 46 164 degrees QTcB Int : 462 ms Sinus tachycardia with occasional Premature ventricular complexes and Fusion complexes Premature atrial complexes Cannot rule out Inferior infarct , age undetermined Nonspecific ST and T wave abnormality Abnormal ECG When compared with ECG of 31-Mar-2024 17:39, Fusion complexes are now Present Vent. rate has increased by 47 bpm Nonspecific T wave abnormality, worse in Anterolateral leads Premature atrial complexes are now Present Confirmed by Shaan Ramos ([id number]) on 04/02/2024 12:45:25 AM Referred By: REFERRED SELF Confirmed By: Shaan Ramos
--- NOTE | 2024-04-02 00:47 | Electrocardiogram Report ---
Test Reason : Blood Pressure : */* mmHG Vent. Rate : 88 BPM Atrial Rate : 88 BPM P-R Int : 154 ms QRS Dur : 96 ms QT Int : 384 ms P-R-T Axes : 30 47 66 degrees QTcB Int : 465 ms Poor data quality, interpretation may be adversely affected Sinus rhythm with frequent Premature ventricular complexes When compared with ECG of 01-Apr-2024 02:41, Vent. rate has decreased by [address] no longer depressed in Anterior leads Nonspecific T wave abnormality no longer evident in Anterolateral leads Confirmed by Shaan Ramos ([id number]) on 04/02/2024 12:47:01 AM Referred By: REFERRED SELF Confirmed By: Shaan Ramos
[2024-04-02 07:14] LABS: Basophils # (auto) 0.03 K/uL (0.00-0.20); Basophils % (auto) 0.2 %; Eosinophils # (auto) 0.08 K/uL (0.00-0.50); Eosinophils % (auto) 0.5 %; Hematocrit (blood only) 29.8 % (42.0-52.0); Hemoglobin 9.7 g/dl (14.0-18.0); Immature Granulocytes # (auto) 0.11 K/uL (0.01-0.20); Immature Granulocytes % (auto) 0.7 %; Lymphocytes % (auto) 3.1 %; Mean Corpuscular Hemoglobin 27.7 pg (25.0-34.0); Mean Corpuscular Hgb Conc 32.6 g/dL (32.0-36.0); Mean Corpuscular Volume 85.1 fL (80.0-100.0); Mean Platelet Volume 9.7 fL (9.4-12.4); Monocytes # (auto) 1.19 K/uL (0.11-0.59); Monocytes % (auto) 7.3 %; Neutrophils # (auto) 14.36 K/uL (1.40-6.50); Neutrophils % (auto) 88.2 %; Platelet Count 319 K/uL (130-400); RDW Standard Deviation 49.5 fL (36.4-46.3); White Blood Count 16.27 K/ul (4.8-10.8)
[2024-04-02 07:43] LABS: BUN Creatinine Ratio 16.4 (10-20); Est GFR (African American) 69.5 ml/min; Potassium 4.1 mmol/L (3.5-5.1)
--- NOTE | 2024-04-02 08:40 | Cardiology Progress Note ---
Date of Service April 02, 2024 Assessment & Plan (1) Acute cystitis: (2) Generalized weakness: (3) Frequent ventricular premature beats: Plan: Patient without any symptoms suggestive of angina. He is compensated from a CHF standpoint without volume overload or signs and symptoms of poor cardiac output. Patient with history of frequent PVCs. Urine culture has yielded results of sensitive Klebsiella. Defer antibiotic therapy to the hospital service. Patient without any symptoms suggestive of angina. Continue prior to hospital dosing of metoprolol succinate 25 mg twice daily, aspirin 81 mg daily, clopidogrel 75 mg daily, losartan 12.5 mg daily, ros uvastatin 5 mg daily. Await urine osmolality studies regards to hyponatremia. Patient may be slightly on the germ drier side, but is receiving IV fluid via the route of IV antibiotics. Subcu heparin for DVT prophylaxis. Admission and Anticipated Discharge Date Admission Date: March 31, 2024 Subjective Patient seen in cardiology follow-up. Rested acceptably last night. Denies chest discomfort, shortness of breath, or subjective palpitations. Ingram catheter in place draining clear yellow urine. Telemetry reveals sinus rhythm in the 90s with frequent PVCs which is a known issue for him. Review of Systems Review of Systems: All systems reviewed & are unremarkable except as noted in HPI & below Physical Exam Constitutional: WD/WN, vitals as above Respiratory: normal respiratory effort, lungs clear to auscultation Cardiovascular: Rate/Rhythm: regular rate Heart Sounds: normal S1 and normal S2; no murmur Extremities: no edema Gastrointestinal (Abdomen): normal bowel sounds, soft, nontender, no hepatosplenomegaly Neurologic: PERRL, EOMI, accommodation nl, no face palsy, no dysarthria Results & Data Vital Signs (Past 12 Hours) Vital Signs Temp Pulse Pulse Resp BP Pulse Ox O2 Del Method 04/02/24 07:42 36.7 C 65 16 122/61 94 Room Air 04/02/24 05:30 89 04/02/24 03:40 36.7 C 76 20 126/71 94 Room Air 04/02/24 00:11 36.6 C 96 H 20 121/67 95 Room Air 04/01/24 23:23 93 H 04/01/24 22:31 36.9 C 91 H 18 119/68 94 Room Air Laboratory Results Cardiac Enzymes 04/01/24 Range/Units 09:23 Troponin I High Sens 87.6 H* (0-20) pg/ml CBC 04/02/24 Range/Units 06:19 WBC 16.27 H (4.8-10.8) K/ul RBC 3.50 L (4.70-6.10) M/uL Hgb 9.7 L (14.0-18.0) g/dl Hct 29.8 L (42.0-52.0) % Plt Count 319 (130-400) K/uL Neut # (Auto) 14.36 H (1.40-6.50) K/uL Lymph # (Auto) 0.50 L (1.20-3.40) K/uL [place] # (Auto) 1.19 H (0.11-0.59) K/uL Eos # (Auto) 0.08 (0.00-0.50) K/uL Baso # (Auto) 0.03 (0.00-0.20) K/uL Comprehensive Metabolic Panel 04/02/24 Range/Units 06:19 Sodium 128 L (136-145) mmol/L Potassium 4.1 (3.5-5.1) mmol/L Chloride 93 L (98-107) mmol/L Carbon Dioxide 28 (21-32) mmol/L BUN 19 (6-23) mg/dl Creatinine 1.16 (0.6-1.4) mg/dl Glucose 131 H (70-99(Fasting)) mg/dl Calcium 8.0 L (8.6-10.3) mg/dl Intake and Output 04/01/24 04/02/24 04/02/24 22:59 06:59 14:59 Intake Total 1060 / 2066.25 340 / 2066.25 Output Total 627 / 1130 500 / 1130 Balance 433 / 936.25 -160 / 936.25 Intake: IV 100 / 866.25 100 / 866.25 Piperacillin/Tazobactam 4.5 gm 100 / 200 100 / 200 In 100 ml @ 25 mls/hr IV Q8H [facility] Rx#:[id number] Oral 960 / 1200 240 / 1200 Output: Urine Amount (Catheter) 625 / 1125 500 / 1125 [place] 625 / 1125 500 / 1125 # Bowel Movements 2 / 5 Other: # Unmeasured Voids 1 Weight 132.6 kg Weight Measurement Method Built in [facility]
[2024-04-02 08:48] LABS: Urine Potassium 26.6 mmol/L
--- NOTE | 2024-04-02 09:25 | Hospitalist Progress Note ---
Date of Service April 02, 2024 Assessment & Plan (1) Generalized weakness: Plan: 79-year-old male with past medical history significant for prediabetes, hyperlipidemia, hypertension, history of chronic systolic CHF, history of CAD s/p stent, morbid obesity, prostate cancer, chronic kidney disease stage III, degenerative disc disease, osteoporosis, macular degeneration, Fuchs corneal dystrophy, rheumatoid arthritis, presents with weakness and found to have UTI. Generalized weakness Ambulatory dysfunction Acute UTI Patient presented with generalized weakness Urinalysis suggestive of infection CT abdomen pelvis shows bladder wall thickening and surrounding fatty stranding. Large amount of stool in colon. First Urine culture showing Klebsiella pneumoniae Plan to continue on Zosyn for now. Will follow-up on repeat urine culture obtain while placing the bautista catheter. Blood culture pending PT OT eval done; recommended rehab. History of CAD status post LAD stent in 09/26 Elevated troponin, Possible demand ischemia EKG on admission shows sinus tachycardia with PVC; nonspecific ST wave changes Patient denies chest pain/discomfort High-sensitivity troponin elevated from 14.8 to 95, then downtrended Echo shows EF of 50%, borderline diffuse LV hypokinesis present Continue on aspirin, Plavix and statin Cardiology consulted; recommended to continue home meds. Type 2 diabetes mellitus HbA1c 6.6% Discussion to be done with patient regarding with the starting medication versus dietary measures. Plan to continue lifestyle changes for now. 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 Bautista placed on 04/01. patient will need to follow up with his outpatient urologist. CKD stage III Baseline creatinine 1.2-1.4 Creatine at baseline Rheumatoid arthritis Will hold methotrexate for now during active infection DVT prophylaxis Heparin subcu Disposition Continue to be hospitalized for need of iv antibiotics. awaiting blood culture results. Full code Time spent evaluating patient, direct bedside care, chart review, placing orders, interpretation of diagnostic studies, discussion with consultants, patient, and family members, as well as other required patient management activities is 50 minutes Please note the above document was generated using voice recognition software. It may contain grammatical, syntax or spelling errors. Any formal questions or concerns about the content, text or information contained within the body of this dictation should be directly addressed to the provider for clarification Admission and Anticipated Discharge Date Admission Date: March 31, 2024 Subjective Patient seen and examined at bedside. Comfortable; not in distress. Denies fever, chills, chest pain, shortness of breath, abdominal pain or urinary symptoms. No significant overnight events Review of Systems Review of Systems: All systems reviewed & are unremarkable except as noted in Subjective Physical Exam Physical Exam: General- Not in distress Head- atraumatic Eyes- PERRL. ENT- oropharynx clear Neck- supple, no JVD. Lungs- clear to auscultation no wheezing or crackles. Heart- regular rhythm; no murmur, no gallop. Abdomen- normal bowel sounds, soft, nontender, no distension Extremities- no pretibial edema, no erythema seen Neuro- alert, oriented PERRL, no facial palsy; no dysarthria; moves extremities . LE strength-4/5 Results & Data Results & Data Vital Signs (Past 12 Hours) Vital Signs Temp Pulse Pulse Resp BP Pulse Ox O2 Del Method 04/02/24 07:42 36.7 C 65 16 122/61 94 Room Air 04/02/24 05:30 89 04/02/24 03:40 36.7 C 76 20 126/71 94 Room Air 04/02/24 00:11 36.6 C 96 H 20 121/67 95 Room Air 04/01/24 23:23 93 H 04/01/24 22:31 36.9 C 91 H 18 119/68 94 Room Air
[2024-04-03 07:07] LABS: Basophils # (auto) 0.03 K/uL (0.00-0.20); Basophils % (auto) 0.3 %; Eosinophils # (auto) 0.22 K/uL (0.00-0.50); Eosinophils % (auto) 1.9 %; Hematocrit (blood only) 28.3 % (42.0-52.0); Hemoglobin 9.3 g/dl (14.0-18.0); Immature Granulocytes # (auto) 0.08 K/uL (0.01-0.20); Immature Granulocytes % (auto) 0.7 %; Lymphocytes # (auto) 0.51 K/uL (1.20-3.40); Lymphocytes % (auto) 4.5 %; Mean Corpuscular Hemoglobin 27.8 pg (25.0-34.0); Mean Corpuscular Hgb Conc 32.9 g/dL (32.0-36.0); Mean Corpuscular Volume 84.5 fL (80.0-100.0); Mean Platelet Volume 9.5 fL (9.4-12.4); Monocytes # (auto) 0.82 K/uL (0.11-0.59); Monocytes % (auto) 7.2 %; Neutrophils # (auto) 9.79 K/uL (1.40-6.50); Neutrophils % (auto) 85.4 %; Platelet Count 309 K/uL (130-400); RDW Coefficient of Variation 15.9 % (11.5-14.5); RDW Standard Deviation 47.9 fL (36.4-46.3); Red Blood Count 3.35 M/uL (4.70-6.10); White Blood Count 11.45 K/ul (4.8-10.8)
[2024-04-03 07:35] LABS: BUN Creatinine Ratio 14.3 (10-20); Calcium 8.1 mg/dl (8.6-10.3); Creatinine Clr Calc Pharmacy 78.6 ml/min; Est GFR (African American) 72.5 ml/min; Est GFR (Non-African American) 62.6 ml/min; Potassium 4.1 mmol/L (3.5-5.1)
--- NOTE | 2024-04-03 08:12 | Hospitalist Progress Note ---
Date of Service April 03, 2024 Assessment & Plan (1) Generalized weakness: Plan: 79-year-old male with past medical history significant for prediabetes, hyperlipidemia, hypertension, history of chronic systolic CHF, history of CAD s/p stent, morbid obesity, prostate cancer, chronic kidney disease stage III, degenerative disc disease, osteoporosis, macular degeneration, Fuchs corneal dystrophy, rheumatoid arthritis, presents with weakness and found to have UTI. Generalized weakness Ambulatory dysfunction Acute UTI Constipation Patient presented with generalized weakness Urinalysis suggestive of infection CT abdomen pelvis shows bladder wall thickening and surrounding fatty stranding. Large amount of stool in colon. Urine culture showing Klebsiella pneumoniae;pansensitive Antibiotics changed to ceftriaxone; plan to treat for 10 days Status post bowel regimen; resolution of constipation PT OT evaluation recommended rehab; case management on board History of CAD status post LAD stent in 09/26 Elevated troponin, Possible demand ischemia EKG on admission shows sinus tachycardia with PVC; nonspecific ST wave changes Patient denies chest pain/discomfort High-sensitivity troponin elevated from 14.8 to 95, then downtrended Echo shows EF of 50%, borderline diffuse LV hypokinesis present Continue on aspirin, Plavix and statin Cardiology consulted; recommended to continue home meds. Type 2 diabetes mellitus HbA1c 6.6% Discussion to be done with patient regarding with the starting medication versus dietary measures. Plan to continue lifestyle changes for now. 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 Ingram placed on 04/01. patient will need to follow up with his outpatient urologist. CKD stage III Baseline creatinine 1.2-1.4 Creatine at baseline Rheumatoid arthritis Will hold methotrexate for now during active infection DVT prophylaxis Heparin subcu Disposition Continue to be hospitalized for need of iv antibiotics. will need rehab at discharge Full code Time spent evaluating patient, direct bedside care, chart review, placing orders, interpretation of diagnostic studies, discussion with consultants, patient, and family members, as well as other required patient management activities is 50 minutes Please note the above document was generated using voice recognition software. It may contain grammatical, syntax or spelling errors. Any formal questions or concerns about the content, text or information contained within the body of this dictation should be directly addressed to the provider for clarification Admission and Anticipated Discharge Date Admission Date: March 31, 2024 Subjective Patient seen and examined at bedside He continues to feel overall better; improve energy Multiple bowel movements Afebrile and saturating well on room air Review of Systems Review of Systems: All systems reviewed & are unremarkable except as noted in Subjective Physical Exam Physical Exam: General- Not in distress Head- atraumatic Eyes- PERRL. ENT- oropharynx clear Neck- supple, no JVD. Lungs- clear to auscultation no wheezing or crackles. Heart- regular rhythm; no murmur, no gallop. Abdomen- normal bowel sounds, soft, nontender, no distension Extremities- no pretibial edema, no erythema seen Neuro- alert, oriented PERRL, no facial palsy; no dysarthria; moves extremities. LE strength-4/5 Results & Data Results & Data Vital Signs (Past 12 Hours) Vital Signs Temp Pulse Pulse Resp BP Pulse Ox Pulse Ox 04/03/24 07:46 67 04/03/24 07:42 36.7 C 62 18 159/86 H 92 04/03/24 03:51 36.7 C 85 16 122/76 95 04/02/24 23:45 36.6 C 72 18 126/67 95 04/02/24 23:21 94 04/02/24 21:49 82 04/02/24 20:28 91 H 130/79 O2 Del Method O2 Del Method 04/03/24 07:46 04/03/24 07:42 Room Air 04/03/24 03:51 Room Air 04/02/24 23:45 Room Air 04/02/24 23:21 Room Air 04/02/24 21:49 04/02/24 20:28
[2024-04-03] MEDS: cefTRIAXone SODIUM 2,000 MG/50 ML BAG IV SCH (09:03)
[2024-04-04 06:52] LABS: Est GFR (African American) 79.3 ml/min; Potassium 4.1 mmol/L (3.5-5.1)
[2024-04-04 06:53] LABS: BUN Creatinine Ratio 14.4 (10-20); Calcium 8.4 mg/dl (8.6-10.3); Creatinine Clr Calc Pharmacy 85.2 ml/min; Est GFR (Non-African American) 68.4 ml/min
--- NOTE | 2024-04-04 09:13 | Hospitalist Progress Note ---
Date of Service April 04, 2024 Assessment & Plan (1) Generalized weakness: Plan: 79-year-old male with past medical history significant for prediabetes, hyperlipidemia, hypertension, history of chronic systolic CHF, history of CAD s/p stent, morbid obesity, prostate cancer, chronic kidney disease stage III, degenerative disc disease, osteoporosis, macular degeneration, Fuchs corneal dystrophy, rheumatoid arthritis, presents with weakness and found to have UTI. Generalized weakness Ambulatory dysfunction Acute UTI Constipation Patient presented with generalized weakness Urinalysis suggestive of infection CT abdomen pelvis shows bladder wall thickening and surrounding fatty stranding. Large amount of stool in colon. Urine culture showing Klebsiella pneumoniae;pansensitive Blood culture- no growth Antibiotics changed to ceftriaxone; plan to treat for 10 days Status post bowel regimen; resolution of constipation PT OT evaluation recommended rehab; case management on board History of CAD status post LAD stent in 09/26 Elevated troponin, Possible demand ischemia EKG on admission shows sinus tachycardia with PVC; nonspecific ST wave changes Patient denies chest pain/discomfort High-sensitivity troponin elevated from 14.8 to 95, then downtrended Echo shows EF of 50%, borderline diffuse LV hypokinesis present Continue on aspirin, Plavix and statin Cardiology consulted; recommended to continue home meds. continue telemonitoring Type 2 diabetes mellitus HbA1c 6.6% Discussion to be done with patient regarding with the starting medication versus dietary measures. Plan to continue lifestyle changes for now. 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 Ingram placed on 04/01. patient will need to follow up with his outpatient urologist. CKD stage III Baseline creatinine 1.2-1.4 Creatine at baseline Rheumatoid arthritis Will hold methotrexate for now during active infection DVT prophylaxis Heparin subcu Disposition Continue to be hospitalized for need of iv antibiotics. will need rehab at discharge Full code Time spent evaluating patient, direct bedside care, chart review, placing orders, interpretation of diagnostic studies, discussion with consultants, patient, and family members, as well as other required patient management activities is 50 minutes Please note the above document was generated using voice recognition software. It may contain grammatical, syntax or spelling errors. Any formal questions or concerns about the content, text or information contained within the body of this dictation should be directly addressed to the provider for clarification Admission and Anticipated Discharge Date Admission Date: March 31, 2024 Subjective Patient had 4 beats of V. tach overnight. Denies any palpitation, chest pain or shortness of breath Vital signs are stable He reports more energy and feels better overall. Review of Systems Review of Systems: All systems reviewed & are unremarkable except as noted in Subjective Physical Exam Physical Exam: General- Not in distress Head- atraumatic Eyes- PERRL. ENT- oropharynx clear Neck- supple, no JVD. Lungs- clear to auscultation no wheezing or crackles. Heart- regular rhythm; no murmur, no gallop. Abdomen- normal bowel sounds, soft, nontender, no distension Extremities- no pretibial edema, no erythema seen Neuro- alert, oriented PERRL, no facial palsy; no dysarthria; moves extremities. LE strength-4/5 Results & Data Results & Data Vital Signs (Past 12 Hours) Vital Signs Temp Pulse Pulse Resp BP Pulse Ox O2 Del Method 04/04/24 07:41 36.8 C 76 16 126/68 95 Room Air 04/04/24 02:39 37.2 C 65 18 141/69 H 95 Room Air 04/04/24 01:01 83 04/03/24 23:38 36.8 C 73 18 133/73 93 Room Air 04/03/24 22:11 96 H
--- NOTE | 2024-04-04 11:15 | Cardiology Progress Note ---
Date of Service April 04, 2024 Assessment & Plan (1) Acute cystitis: (2) Generalized weakness: (3) Frequent ventricular premature beats: Plan: Patient without any symptoms suggestive of angina. He is compensated from a CHF standpoint without volume overload or signs and symptoms of poor cardiac output. Patient with history of frequent PVCs. Urine culture has yielded results of sensitive Klebsiella. Per hospitalist note, patient to complete 10-day course of IV Rocephin transfer him to rehab. Patient without any symptoms suggestive of angina. Continue prior to hospital dosing of metoprolol succinate 25 mg twice daily, aspirin 81 mg daily, clopidogrel 75 mg daily, losartan 12.5 mg daily, rosuvastatin 5 mg daily. Sodium relatively stable. --Stable from my cardiology perspective for discharge to rehab when bed available. Subcu heparin for DVT prophylaxis. Admission and Anticipated Discharge Date Admission Date: March 31, 2024 Subjective Patient seen in cardiology follow-up. Son at bedside. Denies chest discomfort, shortness of breath, or subjective palpitations. Telemetry reveals sinus rhythm in the 80s to 90s with PVCs as per his usual baseline. A 6 beat run of NSVT was noted earlier this morning without symptoms associated with the event. Physical Exam Constitutional: WD/WN, vitals as above Respiratory: normal respiratory effort, lungs clear to auscultation Cardiovascular: Rate/Rhythm: regular rate Heart Sounds: normal S1 and normal S2; no murmur Extremities: no edema Gastrointestinal (Abdomen): normal bowel sounds, soft, nontender, no hepatosplenomegaly Neurologic: PERRL, EOMI, accommodation nl, no face palsy, no dysarthria Results & Data Vital Signs (Past 12 Hours) Vital Signs Temp Pulse Pulse Resp BP Pulse Ox O2 Del Method 04/04/24 09:00 83 04/04/24 07:41 36.8 C 76 16 126/68 95 Room Air 04/04/24 02:39 37.2 C 65 18 141/69 H 95 Room Air 04/04/24 01:01 83 04/03/24 23:38 36.8 C 73 18 133/73 93 Room Air
[2024-04-04] MEDS: ALBUT/IPRATROP 3MG/0.5MG NEB 3 ML VIAL NEB PRN (17:48)
[2024-04-05 08:38] LABS: BUN Creatinine Ratio 14.7 (10-20); Calcium 8.4 mg/dl (8.6-10.3); Creatinine Clr Calc Pharmacy 80.9 ml/min; Est GFR (Non-African American) 64.7 ml/min; Potassium 4.3 mmol/L (3.5-5.1)
--- NOTE | 2024-04-05 10:06 | Hospitalist Progress Note ---
Date of Service April 05, 2024 Assessment & Plan (1) Generalized weakness: Plan: 79-year-old male with past medical history significant for prediabetes, hyperlipidemia, hypertension, history of chronic systolic CHF, history of CAD s/p stent, morbid obesity, prostate cancer, chronic kidney disease stage III, degenerative disc disease, osteoporosis, macular degeneration, Fuchs corneal dystrophy, rheumatoid arthritis, presents with weakness and found to have UTI. Generalized weakness Ambulatory dysfunction Acute UTI Constipation Patient presented with generalized weakness Urinalysis suggestive of infection CT abdomen pelvis shows bladder wall thickening and surrounding fatty stranding. Large amount of stool in colon. Urine culture showing Klebsiella pneumoniae;pansensitive Blood culture- no growth Antibiotics changed to ceftriaxone; plan to treat for 7 days Status post bowel regimen; resolution of constipation PT OT evaluation recommended rehab; case management on board History of CAD status post LAD stent in 09/26 Elevated troponin, Possible demand ischemia EKG on admission shows sinus tachycardia with PVC; nonspecific ST wave changes Patient denies chest pain/discomfort High-sensitivity troponin elevated from 14.8 to 95, then downtrended Echo shows EF of 50%, borderline diffuse LV hypokinesis present Continue on aspirin, Plavix and statin Cardiology consulted; recommended to continue home meds. continue telemonitoring Type 2 diabetes mellitus HbA1c 6.6% Discussion done with patient regarding with the starting medication versus dietary measures. Plan to continue lifestyle changes for now. 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 Ingram placed on 04/01. patient will need to follow up with his outpatient urologist. CKD stage III Baseline creatinine 1.2-1.4 Creatine at baseline Rheumatoid arthritis Will hold methotrexate for now during active infection DVT prophylaxis Heparin subcu Disposition Continue to be hospitalized for need of iv antibiotics. will need rehab at discharge Full code Time spent evaluating patient, direct bedside care, chart review, placing orders, interpretation of diagnostic studies, discussion with consultants, patient, and family members, as well as other required patient management activities is 50 minutes Please note the above document was generated using voice recognition software. It may contain grammatical, syntax or spelling errors. Any formal questions or concerns about the content, text or information contained within the body of this dictation should be directly addressed to the provider for clarification Admission and Anticipated Discharge Date Admission Date: March 31, 2024 Subjective Patient seen and examined at bedside. He is comfortable; not in distress Reports some nasal congestion No other significant events overnight Reports loose BM Review of Systems Review of Systems: All systems reviewed & are unremarkable except as noted in Subjective Physical Exam Physical Exam: General- Not in distress Head- atraumatic Eyes- PERRL. ENT- oropharynx clear Neck- supple, no JVD. Lungs- clear to auscultation no wheezing or crackles. Heart- regular rhythm; no murmur, no gallop. Abdomen- normal bowel sounds, soft, nontender, no distension Extremities- no pretibial edema, no erythema seen Neuro- alert, oriented PERRL, no facial palsy; no dysarthria; moves extremities. LE strength-4/5 Results & Data Results & Data Vital Signs (Past 12 Hours) Vital Signs Temp Pulse Pulse Resp BP Pulse Ox O2 Del Method 04/05/24 08:00 36.7 C 86 18 150/65 H 96 Room Air 04/05/24 07:37 91 H 04/05/24 03:18 36.9 C 84 18 133/70 95 Room Air 04/04/24 23:15 99 H 04/04/24 23:01 36.6 C 74 18 117/65 93 Room Air
[2024-04-05] MEDS: LOPERAMIDE HCL 2 MG CAP PO STA (11:30)
[2024-04-05] MEDS: MELATONIN 3 MG TAB PO SCH (20:20)
--- NOTE | 2024-04-06 15:17 | Hospitalist Progress Note ---
Date of Service April 06, 2024 Assessment & Plan (1) Generalized weakness: Plan: 79-year-old male with past medical history significant for prediabetes, hyperlipidemia, hypertension, history of chronic systolic CHF, history of CAD s/p stent, morbid obesity, prostate cancer, chronic kidney disease stage III, degenerative disc disease, osteoporosis, macular degeneration, Fuchs corneal dystrophy, rheumatoid arthritis, presents with weakness and found to have UTI. Generalized weakness Ambulatory dysfunction Acute UTI Constipation Patient presented with generalized weakness Urinalysis suggestive of infection CT abdomen pelvis shows bladder wall thickening and surrounding fatty stranding. Large amount of stool in colon. Urine culture showing Klebsiella pneumoniae;pansensitive Blood culture- no growth Antibiotics was changed to ceftriaxone; plan to treat for 7 days Status post bowel regimen; resolution of constipation PT OT evaluation recommended rehab; case management on board History of CAD status post LAD stent in 09/26 Elevated troponin, Possible demand ischemia EKG on admission shows sinus tachycardia with PVC; nonspecific ST wave changes Patient denies chest pain/discomfort High-sensitivity troponin elevated from 14.8 to 95, then downtrended Echo shows EF of 50%, borderline diffuse LV hypokinesis present Continue on aspirin, Plavix and statin Cardiology consulted; recommended to continue home meds. continue telemonitoring Type 2 diabetes mellitus: HbA1c 6.6%. Discussion done with patient regarding with the starting medication versus dietary measures per prior attending. Plan to continue lifestyle changes for now. 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 Na improved to 132 History of chronic systolic CHF: On losartan and metoprolol succinate. Monitor for volume overload History of prostate cancer Status post radiation Currently on Lupron shots Follows with oncology and urology Hypertension: On losartan and metoprolol succinate, continue BPH Acute Urinary Retention s/p Ingram Catheter on 04/01 On Flomax Straight cath at home Urology consult due to inability to straight cath. Ingram placed on 04/01. patient will need to follow up with his outpatient urologist. CKD stage III: Baseline creatinine 1.2-1.4. Creatine at baseline Rheumatoid arthritis: Will hold methotrexate for now during active infection DVT prophylaxis: Heparin subcu Disposition: can change to po atb on dc. Full code Please note the above document was generated using voice recognition software. It may contain grammatical, syntax or spelling errors. Any formal questions or concerns about the content, text or information contained within the body of this dictation should be directly addressed to the provider for clarification Admission and Anticipated Discharge Date Admission Date: March 31, 2024 Subjective Patient seen and examined at bedside. He is comfortable; not in distress Reports eating ok and moving bowels ok. No significant events overnight Denies cough and sore throat. Physical Exam Physical Exam: General- Not in distress Head- atraumatic Eyes- PERRL. ENT- oropharynx clear Neck- supple, no JVD. Lungs- clear to auscultation no wheezing or crackles. Heart- regular rhythm; no murmur, no gallop. Abdomen- normal bowel sounds, soft, nontender, no distension Extremities- no pretibial edema, no erythema seen Neuro- alert, oriented PERRL, no facial palsy; no dysarthria; moves extremities. Results & Data Results & Data Vital Signs (Past 12 Hours) Vital Signs Temp Pulse Pulse Resp BP Pulse Ox O2 Del Method 04/06/24 15:11 36.6 C 59 L 18 118/70 94 Room Air 04/06/24 13:00 99 H 04/06/24 11:05 36.3 C L 83 18 115/66 94 Room Air 04/06/24 10:50 77 18 96 Room Air 04/06/24 07:22 36.6 C 53 L 18 123/77 93 Room Air 04/06/24 05:42 89
--- NOTE | 2024-04-07 01:39 | Communication Note ---
Date of Service: April 07, 2024
[2024-04-07] MEDS: LORATADINE 10 MG TAB PO ONE (02:00)
[2024-04-07 07:27] LABS: Hemoglobin 9.5 g/dl (14.0-18.0); Mean Corpuscular Hemoglobin 27.1 pg (25.0-34.0); Mean Corpuscular Hgb Conc 30.6 g/dL (32.0-36.0); Mean Corpuscular Volume 88.3 fL (80.0-100.0); Mean Platelet Volume 9.9 fL (9.4-12.4); Platelet Count 327 K/uL (130-400); RDW Coefficient of Variation 16.4 % (11.5-14.5); RDW Standard Deviation 52.1 fL (36.4-46.3); Red Blood Count 3.51 M/uL (4.70-6.10); White Blood Count 10.51 K/ul (4.8-10.8)
[2024-04-07 07:31] LABS: BUN Creatinine Ratio 16.7 (10-20); Calcium 8.5 mg/dl (8.6-10.3); Creatinine Clr Calc Pharmacy 87.3 ml/min; Est GFR (African American) 81.2 ml/min; Est GFR (Non-African American) 70.1 ml/min; Magnesium 2.2 mg/dl (1.7-2.4); Phosphorus 3.6 mg/dl (2.5-4.9); Potassium 4.4 mmol/L (3.5-5.1)
[2024-04-07 11:08] VITALS: RESP 20
--- NOTE | 2024-04-07 13:52 | Hospitalist Progress Note ---
Date of Service April 07, 2024 Assessment & Plan (1) Generalized weakness: Plan: 79-year-old male with past medical history significant for prediabetes, hyperlipidemia, hypertension, history of chronic systolic CHF, history of CAD s/p stent, morbid obesity, prostate cancer, chronic kidney disease stage III, degenerative disc disease, osteoporosis, macular degeneration, Fuchs corneal dystrophy, rheumatoid arthritis, presents with weakness and found to have UTI. Generalized weakness Ambulatory dysfunction Acute UTI Constipation Patient presented with generalized weakness Urinalysis suggestive of infection CT abdomen pelvis shows bladder wall thickening and surrounding fatty stranding. Large amount of stool in colon. Urine culture showing Klebsiella pneumoniae;pansensitive Blood culture- no growth Antibiotics was changed to ceftriaxone; plan to treat for 7 days Status post bowel regimen; resolution of constipation PT OT evaluation recommended rehab; case management on board History of CAD status post LAD stent in 09/26 Elevated troponin, Possible demand ischemia EKG on admission shows sinus tachycardia with PVC; nonspecific ST wave changes Patient denies chest pain/discomfort High-sensitivity troponin elevated from 14.8 to 95, then downtrended Echo shows EF of 50%, borderline diffuse LV hypokinesis present Continue on aspirin, Plavix and statin Cardiology consulted; recommended to continue home meds. continue telemonitoring Type 2 diabetes mellitus: HbA1c 6.6%. Discussion done with patient regarding with the starting medication versus dietary measures per prior attending. Plan to continue lifestyle changes for now. 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 Na improved to 132 History of chronic systolic CHF: On losartan and metoprolol succinate. Monitor for volume overload History of prostate cancer Status post radiation Currently on Lupron shots Follows with oncology and urology Hypertension: On losartan and metoprolol succinate, continue BPH Acute Urinary Retention s/p Ingram Catheter on 04/01 On Flomax Straight cath at home Urology consult due to inability to straight cath. Ingram placed on 04/01. patient will need to follow up with his outpatient urologist. CKD stage III: Baseline creatinine 1.2-1.4. Creatine at baseline Rheumatoid arthritis: Will hold methotrexate for now during active infection DVT prophylaxis: Heparin subcu Disposition: can change to po atb on dc. likely dc divya to snf. Full code Please note the above document was generated using voice recognition software. It may contain grammatical, syntax or spelling errors. Any formal questions or concerns about the content, text or information contained within the body of this dictation should be directly addressed to the provider for clarification Admission and Anticipated Discharge Date Admission Date: March 31, 2024 Subjective Patient seen and examined at bedside. He is comfortable; not in distress Reports eating ok and moving bowels ok. No significant events overnight Denies cough and sore throat. Physical Exam Physical Exam: General- Not in distress Head- atraumatic Eyes- PERRL. ENT- oropharynx clear Neck- supple, no JVD. Lungs- clear to auscultation no wheezing or crackles. Heart- regular rhythm; no murmur, no gallop. Abdomen- normal bowel sounds, soft, nontender, no distension Extremities- no pretibial edema, no erythema seen Neuro- alert, oriented PERRL, no facial palsy; no dysarthria; moves extremities. Results & Data Results & Data Vital Signs (Past 12 Hours) Vital Signs Temp Pulse Pulse Resp BP BP Pulse Ox 04/07/24 11:03 36.8 C 74 20 107/60 92 04/07/24 10:13 84 18 94 04/07/24 08:00 04/07/24 07:40 36.7 C 80 20 146/81 H 95 04/07/24 07:00 87 04/07/24 05:04 36.6 C 81 18 127/71 92 O2 Del Method 04/07/24 11:03 Room Air 04/07/24 10:13 Room Air 04/07/24 08:00 Room Air 04/07/24 07:40 Room Air 04/07/24 07:00 04/07/24 05:04 Room Air
[2024-04-07] MEDS ORDERED: ALBUTEROL 0.5% NEB SOLN 2.5 MG/0.5 ML VIAL NEB PRN (15:05)
[2024-04-07] MEDS: ALBUTEROL HFA 8 GM INHALER INH PRN (15:33)
[2024-04-07] MEDS: diphenhydrAMINE 2%/ZINC 0.1% CREAM 28.4GM TUBE EXT PRN (19:17)
[2024-04-08 08:09] VITALS: TEMP 97.9; O2SAT 96
--- NOTE | 2024-04-08 09:18 | Discharge Summary ---
Date of Service April 08, 2024 Admission HPI Per Admitting Provider 79-year-old male with past medical history significant for prediabetes, hyperlipidemia, hypertension, history of chronic systolic CHF, history of CAD s/p stent, morbid obesity, prostate cancer, chronic kidney disease stage III, degenerative disc disease, osteoporosis, macular degeneration, Fuchs corneal dystrophy, rheumatoid arthritis, presents with weakness and found to have UTI. Patient lives with his daughter. Generally walks with a cane. But last couple of weeks getting progressively weak and using a walker. Today while ambulating was feeling very weak in the legs and was falling backwards but his daughter caught him and daughter's was also there and both of them slowly lowered him down and called EMS. Patient denies any fevers. He straight caths. Noted some burning pain while straight cathing. Denies any hematuria. Constipated. Denies bloody stools or black stools. No abdominal pain. No chest pain or shortness of breath. No cough. No difficulty swallowing. No headache. Has chronic back pain. Complaining of pain in the bilateral groin region when he is standing up and trying to ambulate. Vision is okay. No runny nose or sore throat. Currently resting comfortably and hemodynamically stable. Past medical history. As mentioned above Past surgical history. Colonoscopy. Tonsillectomy adenoidectomy. Social history. . Currently with daughter. Quit smoking 1997. Smoked 1 pack a day for 35 years. No alcohol use. No drug use. Family history. Mother had rheumatoid arthritis. Peptic ulcer disease. Father had peptic ulcer disease. Sister has osteoarthritis. Admission Exam Per Admitting Provider General- Not in distress Head- atraumatic Eyes- PERRL. ENT- oropharynx clear Neck- supple, no JVD. Lungs- clear to auscultation no wheezing or crackles. Heart- regular rhythm; no murmur, no gallop. Abdomen- normal bowel sounds, soft, nontender, no distension Extremities- no pretibial edema, no erythema seen Neuro- alert, oriented PERRL, no facial palsy; no dysarthria; moves extremities Principal Diagnosis Generalized weakness Ambulatory dysfunction Acute UTI Acute urinary retention status post Ingram catheter on 04/01 Discharge Exam General- Not in distress Head- atraumatic Eyes- PERRL. ENT- oropharynx clear Neck- supple, no JVD. Lungs- clear to auscultation no wheezing or crackles. Heart- regular rhythm; no murmur, no gallop. Abdomen- normal bowel sounds, soft, nontender, no distension Extremities- no pretibial edema, no erythema seen Neuro- alert, oriented PERRL, no facial palsy; no dysarthria; moves extremities. Discharge Data Allergies Allergy/AdvReac Type Severity Reaction Status Date / Time pollen extracts Allergy Mild WATERY Verified 03/31/24 17:40 EYES, SNEEZING Sulfa (Sulfonamide Allergy Unknown CAN'T Verified 03/31/24 17:40 Antibiotics) REMEMBER KUN Inhibitors AdvReac Intermediate Cough Verified 03/31/24 17:40 alendronate sodium AdvReac Intermediate MUSCLE & Verified 03/31/24 17:40 [From Fosamax] JOINT PAIN, HEARTBURN, CONSTIPATION misoprostol AdvReac Intermediate Diarrhea Verified 03/31/24 17:40 Nfmeqgm-GRN-RbK Reductase AdvReac Intermediate CONSTIPATION/UPSET Verified 03/31/24 17:40 Inhibitor STOMACH [Hzzisze-Qtg-Uxr Reductase Inhibitor] Consultations 03/31/24 20:16 ED Decision to Admit Stat 04/01/24 08:58 Consult Cardiology Routine 04/01/24 13:34 Consult Urology Routine Procedures Performed Operation Date: 04/04/24 13:00 <No data on this case meets the specified criteria> Ordered Studies 03/31/24 17:27 CT Abd and Pelvis [CT abd pelvis wo con] Stat CT head/brain wo con Stat Diabetes Follow up Diabetes Follow-up Needed for Newly Diagnosed Diabetes Hospital Course (1) Generalized weakness: 79-year-old male with past medical history significant for prediabetes, hyperlipidemia, hypertension, history of chronic systolic CHF, history of CAD s/p stent, morbid obesity, prostate cancer, chronic kidney disease stage III, degenerative disc disease, osteoporosis, macular degeneration, Fuchs corneal dystrophy, rheumatoid arthritis, presents with weakness and found to have UTI. He was managed for the following: Generalized weakness Ambulatory dysfunction Acute UTI Constipation Patient presented with generalized weakness Urinalysis suggestive of infection CT abdomen pelvis shows bladder wall thickening and surrounding fatty stranding. Large amount of stool in colon. Urine culture showing Klebsiella pneumoniae;pansensitive Blood culture- no growth PO atb on dc; plan to treat for 7 days course. Status post bowel regimen; resolution of constipation PT OT evaluation recommended rehab; case management on board History of CAD status post LAD stent in 09/26 Elevated troponin, Possible demand ischemia EKG on admission shows sinus tachycardia with PVC; nonspecific ST wave changes Patient denies chest pain/discomfort High-sensitivity troponin elevated from 14.8 to 95, then downtrended Echo shows EF of 50%, borderline diffuse LV hypokinesis present Continue on aspirin, Plavix and statin Cardiology consulted; recommended to continue home meds. Type 2 diabetes mellitus: HbA1c 6.6%. Discussion done with patient regarding with the starting medication versus dietary measures per prior attending. Plan to continue lifestyle changes for now. 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 Na improved to 132 History of chronic systolic CHF: On losartan and metoprolol succinate. Monitor for volume overload History of prostate cancer Status post radiation Currently on Lupron shots Follows with oncology and urology Hypertension: On losartan and metoprolol succinate, continue BPH Acute Urinary Retention s/p Ingram Catheter on 04/01 On Flomax Straight cath at home Urology consult due to inability to straight cath. Ingram placed on 04/01. patient will need to follow up with his outpatient urologist. CKD stage III: Baseline creatinine 1.2-1.4. Creatine at baseline Rheumatoid arthritis: Will hold methotrexate for now during active infection DVT prophylaxis: Heparin subcu Full code Follow-up with your primary care physician within a week time and likely you will need labs CBC/CMP/magnesium/phosphorus. Continue with PT/OT at rehab. You will be discharged on antibiotic to complete the course of UTI. For your constipation, utilize [id number] laxatives and stool softener with a goal of 1-2 bowel movements a day. For your low sodium level, maintain low-sodium diet [less than 2 g a day], fluid restriction of 1500 mL a day, increase protein content in diet. Your might benefit from establishing with nephrology as an outpatient, coordinate with your PCP office to set up the referral. You will need repeat A1c in 3 months time, coordinate with your PCP office to set up the test and for long-term monitoring of your diabetes. For your acute urinary retention, you had Ingram catheter placed on 04/01. Follow-up with urology in a week time upon discharge for ongoing Ingram care. Take your medications as prescribed. Please make sure that you are able to get your medications today by calling your pharmacy before you leave the hospital so that your treatment continuity is not broken. Please note the above document was generated using voice recognition software. It may contain grammatical, syntax or spelling errors. Any formal questions or concerns about the content, text or information contained within the body of this dictation should be directly addressed to the provider for clarification Home Health Attestation I certify that this patient is under my care and that I, or a physicians internal medicine physician assistant working with me, had a face to-face encounter that meets the home health dean-wz-apns encounter requirements with this patient. The encounter with the patient was in whole, or in part, for the following medical condition, which is the primary reason for home health care (list medical condition): I certify that, based on my findings, the following services are medically necessary home health services: My clinical findings support the need for the above services because: Further, I certify that my clinical findings support that this patient is homebound (i.e. absences from home require considerable and taxing effort and are for medical reasons or hoahaoism services or infrequently or of short duration when for other reasons) because: Certification for Home Health Services: Based on the above findings, I certify that this patient is confined to the home and needs intermittent senior care care, physical therapy and/or speech therapy or continues to need occupational therapy. The patient is under my care, and I have initiated the establishment of the plan of care. This patient will be followed by a physician who will periodically review the plan of care. Total Time Total Time Spent Total Time Spent (In Minutes): 45 Discharge Plan Discharge Items Patient Disposition[facility] Reason For Visit: WEAKNESS, UTI Discharge Diagnosis: Generalized weakness Ambulatory dysfunction Acute UTI Acute urinary retention status post Ingram catheter on 04/01 Activity: As commented below Activity Comment: Continue with PT/OT at rehab. Non-emergency contact: Primary Care Provider Call non-emergency contact if: you have any medication questions and your symptoms worsen Follow-up/Referrals: Rhianna Huitron, [Primary Care Provider] - Diet: Carb Consistent or DM2 and Heart Healthy Fluids: 1500ml (6 cups) Addtl Attending Provider Instructions: Follow-up with your primary care physician within a week time and likely you lawrence l need labs CBC/CMP/magnesium/phosphorus. Continue with PT/OT at rehab. You will be discharged on antibiotic to complete the course of UTI. For your constipation, utilize ojgv-xrw-rhbdazr laxatives and stool softener with a goal of 1-2 bowel movements a day. For your low sodium level, maintain low-sodium diet [less than 2 g a day], fluid restriction of 1500 mL a day, increase protein content in diet. Your might benefit from establishing with nephrology as an outpatient, coordinate with your PCP office to set up the referral. You will need repeat A1c in 3 months time, coordinate with your PCP office to set up the test and for long-term monitoring of your diabetes. For your acute urinary retention, you had Ingram catheter placed on 04/01. Follow-up with urology in a week time upon discharge for ongoing Ingram care. Take your medications as prescribed. Please make sure that you are able to get your medications today by calling your pharmacy before you leave the hospital so that your treatment continuity is not broken. Pending Studies at Discharge: No Stand-Alone Forms: My [facility] Skilled Items Patient informed of condition?: Yes DNR: No Discharge Level of Care: Skilled Communicable Disease: No Discharge Prognosis: Stable Lines: None Urinary Catheter: Yes Medications and DC Order Prescriptions: New melatonin 3 mg Tablet 6 mg PO HS PRN (Reason: sleep) Qty: 60 0RF albuterol sulfate [Ventolin HFA] 90 mcg/actuation Hfa Aerosol Inhaler 2 puff inhalation Q6H PRN (Reason: shortness of breath or wheezing) Qty: 8.5 0RF cefdinir 300 mg capsule 300 mg PO BID 1 Days Qty: 2 0RF Continued tamsulosin 0.4 mg capsule 0.4 mg PO DAILY folic acid 1 mg tablet 1 mg PO DAILY clopidogrel 75 mg Tablet 75 mg PO QAM Qty: 30 0RF acetaminophen 325 mg Tablet 650 mg PO Q4H PRN (Reason: fever or pain) Qty: 60 0RF aspirin 81 mg Tablet,Delayed Release (Dr/Ec) 81 mg PO QAM Qty: 30 0RF losartan 25 mg tablet 12.5 mg PO QAM metoprolol succinate 50 mg tablet extended release 24 hr 25 mg PO BID rosuvastatin 5 mg tablet 5 mg Held methotrexate sodium 2.5 mg tablet 12.5 mg PO WK Hold Instructions: Resume on 04/11/24. Rx Instructions: take 5 tablet once a week on Thursday Discharge Orders: Discharge Order (Routine); Ordered 04/08/24 Ordered By: Vishal Ortiz/Other Patient Handouts: Diabetes: Meal Planning, Type 2 Diabetes Admission Data Admit Date/Time: 03/31/24 22:06 Attending Provider: Vishal Gallegos Admit Provider: Jono Wise Primary Care Provider: Rhianna Huitron Other Providers: [place],[facility]; Katie Berumen at [place]; Jono Wise; Fan Garcia
[2024-04-08 09:29] VITALS: BP 148/80; PULSE 100
== END 2024-04-08 12:50 | DRG 690 ==
LOC: ED 17:11 → SUATTDRO 22:06 → 2N 22:06

== ENCOUNTER 2024-05-31 13:41 | Inpatient (IN) ==
--- NOTE | 2024-05-31 13:58 | Emergency Department Note ---
Impression & Plan Generalized weakness, Acute hyponatremia ED Provider Note HISTORY OF PRESENT ILLNESS: Patient is a 79-year-old male presenting with abnormal labs. Patient reports that he had laboratory workup performed at his primary care provider's office recently and was found to have a sodium of 125. He reports that home health nurse came to visit him today and his sodium was 125 and he was referred to the emergency department. Patient reports he feels very dehydrated but states he has to "watch how much I am drinking because of my heart." He denies any headache or changes in vision. Denies any numbness or tingling or weakness in his extremities. He has a chronic Ingram catheter in place. Denies any abdominal pain. He reports feeling very weak and tired over the last few days. He was recently discharged from [facility] to live with his daughter and her significant other. He reports that he feels like he has not full strength. ROS: as above PHYSICAL EXAM: Constitutional: Patient appears in no acute distress. Morbidly obese HENT: Head: Normocephalic and atraumatic. Eyes: EOMI, PERRL Mouth/Throat: Mucous membranes moist. Neck: Trachea midline. Neck supple. Cardiovascular: Irregular rhythm. No murmurs, rubs or gallops. Intact distal pulses. Pulmonary/Chest: No respiratory distress. Breath sounds clear and equal bilaterally. No wheezes or rales. Abdominal: Abdomen soft, no tenderness, rebound or guarding. Musculoskeletal: No edema, tenderness or deformity noted. Skin: Warm and dry. No rash, erythema, pallor or cyanosis Psychiatric: Appropriate mood and affect for situation. Neurological: Alert and keenly responsive. CN II-XII grossly intact, moving all extremities equally and fully. MDM: - Vitals signs showed tachycardia - History obtained via patient. History as above. - Chronic conditions affecting care: prostate cancer; HTN; rheumatoid arthritis; CAD (s/p PCI); CHF; morbid obesity - Differential diagnoses include, but are not limited to: electrolyte abnormality; ACS; pneumonia; UTI; dehydration - Order placed for continuous cardiac monitoring. At this time, monitor showed rate of 92 bpm with irregular rhythm, per my interpretation. - External medical records reviewed. Discharge summary dated 04/08/2024 was reviewed. Patient was admitted that time for generalized weakness secondary to acute UTI. He had urinary retention and a Ingram placed on 04/01/2024. - EKG interpreted by myself showed atrial fibrillation. Rate 98 bpm. QT 372. No acute ischemic changes. - Laboratory workup interpreted by myself showed normal WBC; chronic anemia (Hgb 9.1); hyponatremia (Na 123) - UA showed WBCs and bacteria. However, no significant leukocytosis on labs and no fevers. Will await cultures. - Urine and serum osmolalities ordered - Patient's generalized weakness may be secondary to his hyponatremia. Patient is alert and oriented and able to give his thorough history. Hypertonic saline indicated at this time. Will admit to hospitalist for further hyponatremia workup. - Discussion was had with geriatric case manager about patient's case and need for admission - Hospitalist, Dr. Flores, consulted for admission - [facility] ASSESSMENT AND PLAN: Diagnosis: Generalized weakness; acute hyponatremia Plan: admit Past Med/Surg History Problem List (Updated 05/31/24 @ 15:06 by Daniela Balderrama MD) Acute hyponatremia (Acute) Generalized weakness (Acute) Frequent ventricular premature beats Acute cystitis (Acute) Generalized weakness (Acute) Substernal chest pain (Acute) Ventricular tachycardia (Acute) Coronary artery disease NSVT (nonsustained ventricular tachycardia) Unstable angina pectoris Rheumatoid arthritis Hypertension Urinary retention Morbid obesity Ventricular tachycardia Prostate cancer (Chronic 03/16/23) Arthritis of knee, left Medical History Left ventricular systolic dysfunction Degeneration of lumbosacral intervertebral disc Impaired fasting glucose Macular degeneration Fuchs' corneal dystrophy Frequent UTI Surgical History H/O colonoscopy History of prostate biopsy Family History Father Heart disease Stomach ulcer Mother Rheumatoid arthritis Social History Smoking Status: Former smoker Tobacco Type: Cigarettes Age Started Using Tobacco: 19; packs per day: 1; Second Hand Exposure: Yes; Do You Dip or Chew Tobacco: No; Hx Alcohol Use: No Hx Substance Use: No Preferred Language: Icelandic Communication Ability: Effective Visual Impairment: No Limitations Hearing Ability: Normal Fittings Tightener Required: No Beliefs That Will Affect Care: None marital status: / Current Living Situation: Family Current Living Situation Comment: lives at home with daughter/son-in-law/granddaughter current occupational status: retired current occupation: PA [employer] Feels Safe at Home: Yes Diet: regular during the past year weight has: remained stable Assistive Devices: Cane and Walker Allergies Allergies Allergy/AdvReac Type Severity Reaction Status Date / Time pollen extracts Allergy Mild WATERY Verified 03/31/24 17:40 EYES, SNEEZING Sulfa (Sulfonamide Allergy Unknown CAN'T Verified 03/31/24 17:40 Antibiotics) REMEMBER KUN Inhibitors AdvReac Intermediate Cough Verified 03/31/24 17:40 alendronate sodium AdvReac Intermediate MUSCLE & Verified 03/31/24 17:40 [From Fosamax] JOINT PAIN, HEARTBURN, CONSTIPATION misoprostol AdvReac Intermediate Diarrhea Verified 03/31/24 17:40 Sndubjt-JDV-AuG Reductase AdvReac Intermediate CONSTIPATION/UPSET Verified 03/31/24 17:40 Inhibitor STOMACH [Aabjclr-Tbe-Ilt Reductase Inhibitor] Home Meds Home Medications Medication Instructions Recorded Confirmed folic acid 1 mg tablet 1 mg PO DAILY 04/04/20 03/31/24 methotrexate sodium 2.5 mg tablet 12.5 mg PO WK 04/15/23 03/31/24 tamsulosin 0.4 mg capsule 0.4 mg PO DAILY 04/15/23 03/31/24 losartan 25 mg tablet 12.5 mg PO QAM 03/31/24 03/31/24 metoprolol succinate 50 mg 25 mg PO BID 03/31/24 03/31/24 tablet,extended release 24 hr rosuvastatin 5 mg tablet 5 mg 04/01/24 furosemide 20 mg tablet 20 mg PO BID 05/31/24 Previous Rx's Medication Instructions Recorded acetaminophen 325 mg tablet 650 mg (2 x 325 mg) PO Q4H PRN 09/03/23 fever or pain #60 tabs aspirin 81 mg tablet,delayed 81 mg PO QAM #30 tabs 09/03/23 release clopidogrel 75 mg tablet 75 mg PO QAM #30 tabs 09/03/23 albuterol sulfate 90 mcg/actuation 2 puff inhalation Q6H PRN 04/08/24 aerosol inhaler (Ventolin HFA) shortness of breath or wheezing #8.5 grams melatonin 3 mg tablet 6 mg (2 x 3 mg) PO HS PRN sleep 04/08/24 #60 tabs Results & Data (ED) Vital Signs Vital Signs - 24 hr 05/31/24 13:49 05/31/24 13:51 05/31/24 13:55 Temperature Temperature Source Pulse Rate 101 H 97 H 101 H Pulse Rate [Apical] Pulse Rhythm [Apical] Respiratory Rate 12 12 Respiratory Effort / Characteristics Non-Labored Respiratory Depth Normal Respiratory Pattern Regular Blood Pressure 134/77 Blood Pressure [Right Arm] Blood Pressure Mean 96 Blood Pressure Mean [Right Arm] Blood Pressure Position Lying Pulse Oximetry 96 96 Oxygen Delivery Method Room Air Room Air Sepsis Recent Fever Within 48 Hours No Sepsis New/Unexplained Change in Mental Status No Sepsis Action Taken by Nursing No Action Required 05/31/24 14:06 05/31/24 14:49 Temperature 36.7 C Temperature Source Oral Pulse Rate Pulse Rate [Apical] 92 H Pulse Rhythm [Apical] Irregular Respiratory Rate 17 Respiratory Effort / Characteristics Non-Labored Spontaneous Respiratory Depth Normal Respiratory Pattern Regular Blood Pressure Blood Pressure [Right Arm] 134/77 Blood Pressure Mean Blood Pressure Mean [Right Arm] 96 Blood Pressure Position Pulse Oximetry Oxygen Delivery Method Room Air Sepsis Recent Fever Within 48 Hours Sepsis New/Unexplained Change in Mental Status Sepsis Action Taken by Nursing Laboratory Data 05/31/24 14:05 05/31/24 14:05 Lab Results 05/31/24 05/31/24 Range/Units 13:47 14:05 WBC 10.02 (4.8-10.8) K/ul RBC 3.48 L (4.70-6.10) M/uL Hgb 9.1 L (14.0-18.0) g/dl Hct 27.9 L (42.0-52.0) % MCV 80.2 (80.0-100.0) fL MCH 26.1 (25.0-34.0) pg MCHC 32.6 (32.0-36.0) g/dL RDW Std Deviation 47.8 H (36.4-46.3) fL RDW Coeff of Jenny 17.0 H (11.5-14.5) % Plt Count 458 H (130-400) K/uL MPV 8.7 L (9.4-12.4) fL Immature Gran % (Auto) 0.9 % Neut % (Auto) 85.9 % Lymph % (Auto) 5.0 % [place] % (Auto) 7.2 % Eos % (Auto) 0.6 % Baso % (Auto) 0.4 % Neut # (Auto) 8.61 H (1.40-6.50) K/uL Lymph # (Auto) 0.50 L (1.20-3.40) K/uL [place] # (Auto) 0.72 H (0.11-0.59) K/uL Eos # (Auto) 0.06 (0.00-0.50) K/uL Baso # (Auto) 0.04 (0.00-0.20) K/uL Immature Gran # (Auto) 0.09 (0.01-0.20) K/uL PT 12.7 H (9.0-12.0) Seconds INR 1.2 H (0.9-1.1) Sodium 123 L (136-145) mmol/L Potassium 4.3 (3.5-5.1) mmol/L Chloride 87 L (98-107) mmol/L Carbon Dioxide 27 (21-32) mmol/L Anion Gap 9 (3-11) BUN 12 (6-23) mg/dl Creatinine 0.90 (0.6-1.4) mg/dl Est Cr Clr Drug Dosing 95.6 ml/min eGFR 87.42 BUN/Creatinine Ratio 13.3 (10-20) Glucose 127 H (70-99(Fasting)) mg/dl Calcium 8.4 L (8.6-10.3) mg/dl Magnesium 1.8 (1.7-2.4) mg/dl Total Bilirubin 0.4 (0.2-1.0) mg/dl AST 12 L (13-39) U/L ALT 8 (7-52) U/L Alkaline Phosphatase 95 (34-104) U/L Total Protein 6.7 (6.0-8.3) gm/dl Albumin 2.9 L (3.4-5.0) gm/dl Globulin 3.8 (2.5-4.0) gm/dl Albumin/Globulin Ratio 0.8 L (0.9-2) Urine Color Yellow Urine Appearance Cloudy A (Clear) Urine pH 6.5 (4.5-7.5) Ur Specific [place] 1.017 (1.000-1.030) Urine Protein 2+ H (Negative) Urine Glucose (UA) Negative (Negative) Urine Ketones Negative (Negative) Urine Blood Negative (Negative) Urine Nitrite Negative (Negative) Urine Bilirubin Negative (Negative) Urine Urobilinogen Negative (Negative) Ur Leukocyte Esterase 3+ H (Negative) Urine WBC (Auto) >50 H (0-5) /hpf Urine RBC (Auto) 3-5 H (0-2) /hpf U Hyaline Cast (Auto) >20 H (0-2) /lpf U Epithel Cells (Auto) 0-2 (0-2) /hpf Urine Bacteria (Auto) 3+ H (None Seen) Granular Casts Present A (None Prsent) /lpf Urine Osmolality 375 L (500-800) mOsm/kg Discharge Plan Visit Data Chief Complaint: Abnormal Labs/Diagnostic Testing Stated Complaint: LOW SODIUM ED Provider: Daniela Balderrama Discharge Problem: Generalized weakness, Acute hyponatremia Forms Stand Alone Forms: My [facility] Prescriptions Prescriptions: No Action tamsulosin 0.4 mg capsule 0.4 mg PO DAILY folic acid 1 mg tablet 1 mg PO DAILY methotrexate sodium 2.5 mg tablet 12.5 mg PO WK Hold Instructions: Resume on 04/11/24. Rx Instructions: take 5 tablet once a week on Thursday clopidogrel 75 mg Tablet 75 mg PO QAM Qty: 30 0RF acetaminophen 325 mg Tablet 650 mg PO Q4H PRN (Reason: fever or pain) Qty: 60 0RF aspirin 81 mg Tablet,Delayed Release (Dr/Ec) 81 mg PO QAM Qty: 30 0RF furosemide 20 mg tablet 20 mg PO BID losartan 25 mg tablet 12.5 mg PO QAM metoprolol succinate 50 mg tablet extended release 24 hr 25 mg PO BID rosuvastatin 5 mg tablet 5 mg melatonin 3 mg Tablet 6 mg PO HS PRN (Reason: sleep) Qty: 60 0RF albuterol sulfate [Ventolin HFA] 90 mcg/actuation Hfa Aerosol Inhaler 2 puff inhalation Q6H PRN (Reason: shortness of breath or wheezing) Qty: 8.5 0RF Referrals Referrals: Rhianna Huitron DO [Primary Care Provider] -
[2024-05-31 14:35] LABS: Appearance Urine Cloudy (Clear); Bacteria Urine Automated 3+ (None Seen); Bilirubin Urine Negative (Negative); Blood Urine Negative (Negative); Cast Urine Automated >20 /lpf (0-2); Color Urine Yellow; Epithelial Cell Urine Auto 0-2 /hpf (0-2); Glucose Urine UA Negative (Negative); Granular Casts Urine Present /lpf (None Prsent); Ketones Urine Negative (Negative); Leukocyte Esterase Urine 3+ (Negative); Nitrite Urine Negative (Negative); Protein Urine 2+ (Negative); Specific Gravity Urine 1.017 (1.000-1.030); Urobilinogen Urine Negative (Negative); WBC Urine Automated >50 /hpf (0-5); pH Urine 6.5 (4.5-7.5)
[2024-05-31 14:46] LABS: Basophils # (auto) 0.04 K/uL (0.00-0.20); Basophils % (auto) 0.4 %; Eosinophils # (auto) 0.06 K/uL (0.00-0.50); Eosinophils % (auto) 0.6 %; Hematocrit (blood only) 27.9 % (42.0-52.0); Hemoglobin 9.1 g/dl (14.0-18.0); Immature Granulocytes # (auto) 0.09 K/uL (0.01-0.20); Immature Granulocytes % (auto) 0.9 %; Mean Corpuscular Hemoglobin 26.1 pg (25.0-34.0); Mean Corpuscular Hgb Conc 32.6 g/dL (32.0-36.0); Mean Corpuscular Volume 80.2 fL (80.0-100.0); Mean Platelet Volume 8.7 fL (9.4-12.4); Monocytes # (auto) 0.72 K/uL (0.11-0.59); Monocytes % (auto) 7.2 %; Neutrophils # (auto) 8.61 K/uL (1.40-6.50); Neutrophils % (auto) 85.9 %; Platelet Count 458 K/uL (130-400); RDW Standard Deviation 47.8 fL (36.4-46.3); Red Blood Count 3.48 M/uL (4.70-6.10); White Blood Count 10.02 K/ul (4.8-10.8)
[2024-05-31 15:01] LABS: Albumin Globulin Ratio 0.8 (0.9-2); Albumin Level 2.9 gm/dl (3.4-5.0); BUN Creatinine Ratio 13.3 (10-20); Bilirubin,Total 0.4 mg/dl (0.2-1.0); Calcium 8.4 mg/dl (8.6-10.3); Creatinine Clr Calc Pharmacy 95.6 ml/min; Globulin 3.8 gm/dl (2.5-4.0); Magnesium 1.8 mg/dl (1.7-2.4); Potassium 4.3 mmol/L (3.5-5.1); Total Protein 6.7 gm/dl (6.0-8.3)
[2024-05-31 15:15] LABS: INR 1.2 (0.9-1.1); Prothrombin Time 12.7 Seconds (9.0-12.0)
[2024-05-31 15:29] LABS: Thyroid Stimulating Hormone 3.226 uIu/ml (0.300-4.500)
--- NOTE | 2024-05-31 16:16 | History & Physical Report ---
Date of Service May 31, 2024 Assessment & Plan (1) Acute hyponatremia: Plan: Progressive weakness for a while with worsening symptoms for the last 1 week or so Outpatient PFT showed low sodium of 120 Repeat sodium in the hospital is 123 He was started with oral furosemide 20 mg twice daily as an outpatient but has not taken the medicine as of yet Discussed with the hat sizer and will be given the first dose of furosemide this afternoon Fluid restriction to 1.5 L a day and monitor PRP Further dosing of Lasix as per BMP tomorrow and the hat sizer (2) Generalized weakness: Plan: Likely secondary to hyponatremia (3) Coronary artery disease: Plan: No acute symptoms Will continue current dose of beta-corwin (4) Rheumatoid arthritis: Plan: Has been methotrexate weekly (5) Hypertension: Plan: Blood pressure is controlled and will continue current medication (6) Urinary retention: Plan: Secondary to prostate cancer Status post recently changed urinary catheter change in 1 month as an outpatient (7) Prostate cancer: (8) Left ventricular systolic dysfunction: Plan: No evidence of any fluid overload except trace edema bilaterally Plan DVT prophylaxis Subcu Lovenox CODE STATUS Full History of Present Illness Chief Complaint: Progressive weakness and noted to have hyponatremia with sodium of 120 as an out patient Primary Care Provider: Rhianna Huitron, He is a 79-year-old male with significant past medical history of CAD status post stent, chronic systolic CHF, prostate cancer, chronic kidney disease stage III, osteoporosis, prediabetes and hyperlipidemia 9 and also history of rheumatoid arthritis apparently has been complaining of weakness for some time. His weakness progressed and has had a sodium level done. Came out to be 120 and from that point he was advised for admission. He was prescribed furosemide 20 mg twice daily but he has not taken that medications yet. He has been drinking a lot at home and denies to have any other significant symptoms today except weakness. On asking questions he complains today of some sinus disease but no fever and no chills, no cough or phlegm and no abdominal pain nausea or vomiting. His urinary catheter was changed recently and which will be changed again in about a month. Allergies Allergy/AdvReac Type Severity Reaction Status Date / Time pollen extracts Allergy Mild WATERY Verified 03/31/24 17:40 EYES, SNEEZING Sulfa (Sulfonamide Allergy Unknown CAN'T Verified 03/31/24 17:40 Antibiotics) REMEMBER KUN Inhibitors AdvReac Intermediate Cough Verified 03/31/24 17:40 alendronate sodium AdvReac Intermediate MUSCLE & Verified 03/31/24 17:40 [From Fosamax] JOINT PAIN, HEARTBURN, CONSTIPATION misoprostol AdvReac Intermediate Diarrhea Verified 03/31/24 17:40 Heatsmd-GXE-ZwX Reductase AdvReac Intermediate CONSTIPATION/UPSET Verified 03/31/24 17:40 Inhibitor STOMACH [Adkaxfi-Lsy-Tku Reductase Inhibitor] Home Medications Medication Instructions Recorded Confirmed Type folic acid 1 mg tablet 1 mg PO QAM 04/04/20 05/31/24 History methotrexate sodium 2.5 mg tablet 12.5 mg PO WK 04/15/23 05/31/24 History tamsulosin 0.4 mg capsule 0.4 mg PO QAM 04/15/23 05/31/24 History acetaminophen 325 mg tablet 650 mg (2 x 325 mg) PO Q4H PRN 09/03/23 05/31/24 Rx fever or pain #60 tabs aspirin 81 mg tablet,delayed 81 mg PO QAM #30 tabs 09/03/23 05/31/24 Rx release clopidogrel 75 mg tablet 75 mg PO QAM #30 tabs 09/03/23 05/31/24 Rx losartan 25 mg tablet 12.5 mg PO QAM 03/31/24 05/31/24 History metoprolol succinate 50 mg 25 mg PO BID 03/31/24 05/31/24 History tablet,extended release 24 hr rosuvastatin 5 mg tablet 5 mg PO QAM 04/01/24 05/31/24 History albuterol sulfate 90 mcg/actuation 2 puff inhalation Q6H PRN 04/08/24 05/31/24 Rx aerosol inhaler (Ventolin HFA) shortness of breath or wheezing #8.5 grams melatonin 3 mg tablet 6 mg (2 x 3 mg) PO HS PRN sleep 04/08/24 05/31/24 Rx #60 tabs furosemide 20 mg tablet 20 mg PO BID 05/31/24 05/31/24 History urea 15 gram oral powder packet 1 packet PO UD 05/31/24 05/31/24 History (Ure-Na) Past Med/Surg History Problem List (Updated 05/31/24 @ 15:06 by Daniela Balderrama MD) Acute hyponatremia (Acute) Generalized weakness (Acute) Frequent ventricular premature beats Acute cystitis (Acute) Generalized weakness (Acute) Substernal chest pain (Acute) Ventricular tachycardia (Acute) Coronary artery disease NSVT (nonsustained ventricular tachycardia) Unstable angina pectoris Rheumatoid arthritis Hypertension Urinary retention Morbid obesity Ventricular tachycardia Prostate cancer (Chronic 03/16/23) Arthritis of knee, left Medical History Left ventricular systolic dysfunction Degeneration of lumbosacral intervertebral disc Impaired fasting glucose Macular degeneration Fuchs' corneal dystrophy Frequent UTI Surgical History H/O colonoscopy History of prostate biopsy Family History Father Heart disease Stomach ulcer Mother Rheumatoid arthritis Social History Smoking Status: Former smoker Tobacco Type: Cigarettes Age Started Using Tobacco: 19; packs per day: 1; Second Hand Exposure: Yes; Do You Dip or Chew Tobacco: No; Hx Alcohol Use: No Hx Substance Use: No Preferred Language: [place]ese Communication Ability: Effective Visual Impairment: No Limitations Hearing Ability: Normal Gate Shear Operator Required: No Beliefs That Will Affect Care: None marital status: / Current Living Situation: Family Current Living Situation Comment: lives at home with daughter/son-in-law/granddaughter current occupational status: retired current occupation: PA [employer] Feels Safe at Home: Yes Diet: regular during the past year weight has: remained stable Assistive Devices: Cane and Walker Review of Systems Review of Systems: All systems reviewed and are unremarkable except as noted below Physical Exam Physical Exam: Lying in bed without any acute distress Constitutional: well developed and well nourished; not ill appearing Eyes: PERRL, conjunctivae normal, anicteric sclerae ENMT: external ear and nose normal, oropharynx normal Neck: trachea midline, no thyromegaly Respiratory: no respiratory distress Auscultation: lungs clear to auscultation bilaterally Cardiovascular: Rate/Rhythm: regular rate and regular rhythm; not tachycardic Heart Sounds: normal S1 and normal S2; no murmur Extremities: + edema (Trace edema bilaterally) Gastrointestinal (Abdomen): Inspection/Auscultation: normal bowel sounds; abdomen not distended Percussion/Palpation: abdomen soft; abdomen nontender Musculoskeletal: No acute arthritis involving any of the joint Neurologic: normal touch/pain/proprioception and moves all extremities; no focal motor deficits Lymphatic: no cervical or axillary lymphadenopathy Results & Data Results & Data Vital Signs (Past 12 Hours) Vital Signs Temp Pulse Pulse Resp BP BP Pulse Ox 05/31/24 14:49 36.7 C 05/31/24 14:06 92 H 17 134/77 05/31/24 13:55 101 H 12 96 05/31/24 13:51 97 H 05/31/24 13:49 101 H 12 134/77 96 O2 Del Method 05/31/24 14:49 05/31/24 14:06 Room Air 05/31/24 13:55 Room Air 05/31/24 13:51 05/31/24 13:49 Room Air Laboratory Results Short CBC 05/31/24 Range/Units 14:05 WBC 10.02 (4.8-10.8) K/ul Hgb 9.1 L (14.0-18.0) g/dl Hct 27.9 L (42.0-52.0) % Plt Count 458 H (130-400) K/uL BMP 05/31/24 14:05 Sodium 123 L Potassium 4.3 Chloride 87 L Carbon Dioxide 27 BUN 12 Creatinine 0.90 Glucose 127 H Calcium 8.4 L Liver Function 05/31/24 Range/Units 14:05 Total Bilirubin 0.4 (0.2-1.0) mg/dl AST 12 L (13-39) U/L ALT 8 (7-52) U/L Alkaline Phosphatase 95 (34-104) U/L Albumin 2.9 L (3.4-5.0) gm/dl Urine 05/31/24 Range/Units 13:47 Urine Color Yellow Urine Appearance Cloudy A (Clear) Urine pH 6.5 (4.5-7.5) Ur Specific [place] 1.017 (1.000-1.030) Urine Protein 2+ H (Negative) Urine Glucose (UA) Negative (Negative) Code Status & VTE Plan VTE Prophylaxis Plan VTE Prophylaxis will be ordered: Yes (5) Hypertension Hypertension type: primary hypertension Qualified Code(s): I10 - Essential (primary) hypertension
[2024-05-31 18:04] LABS: Urine Potassium 30.2 mmol/L
[2024-05-31] MEDS ORDERED: ALBUTEROL HFA 8 GM INHALER INH PRN (18:15)
--- NOTE | 2024-05-31 18:20 | Electrocardiogram Report ---
Test Reason : Blood Pressure : */* mmHG Vent. Rate : 98 BPM Atrial Rate : * BPM P-R Int : * ms QRS Dur : 96 ms QT Int : 372 ms P-R-T Axes : * 64 69 degrees QTcB Int : 474 ms Sinus rhythm with premature ventricular or aberrantly conducted complexes Abnormal ECG Confirmed by Vineet Philippe ([id number]) on 05/31/2024 6:20:10 PM Referred By: Bryson Ellis Confirmed By: Vineet Philippe
[2024-05-31] MEDS: ENOXAPARIN INJ 40 MG/0.4 ML SYR SQ SCH (19:55)
[2024-05-31] MEDS: FUROSEMIDE 20 MG TAB PO STA (19:55)
--- OUTSIDE RECORDS SUMMARY | 2024-05-31 20:47 | External Medical Summary ---
Author Name Unknown Address Unknown Organization [id number] [address] [place] [id number] Laboratory Report Ordering Provider Test Date Status DESIREE STEPHENS 05/31/2024 09:03:00 Final Observation Date Value Abnormality Reference (Units ) Status BUN 05/31/2024 09:03:00 13 6-20 (mg/dL) Final Creatinine 05/31/2024 09:03:00 0.9 0.6-1.2 (mg/dL) Final Glomerular filtration rate/1.73 sq M.predicted [Volume Rate/Area] in Serum, Plasma or Blood by Creatinine-based formula (CKD-EPI) 05/31/2024 09:03:00 86 >=60 (mL/min) Final eGFR is calculated based on the CKD-EPI 2020 equation. Sodium 05/31/2024 09:03:00 125 Below low normal 135 -146 (mmol/L) Final Potassium 05/31/2024 09:03:00 5.2 Above high normal 3. 5-5.1 (mmol/L) Final Cl 05/31/2024 09:03:00 88 Below low normal 98- 107 (mmol/L) Final CO2 05/31/2024 09:03:00 28 22-32 (mmo l/L) Final Anion gap 05/31/2024 09:03:00 9 7-15 (mmol /L) Final Glucose 05/31/2024 09:03:00 151 Above high normal 70 -120 (mg/dL) Final Calcium 05/31/2024 09:03:00 8.2 Below low normal 8.4 -10.2 (mg/dL) Final Performing Location [facility] [address] [place] [id number]
--- OUTSIDE RECORDS SUMMARY | 2024-05-31 20:47 | External Medical Summary ---
Author Name Unknown Address Unknown Organization [id number] [address] [place] [id number] Laboratory Report Ordering Provider Test Date Status DESIREE STEPHENS 05/31/2024 09:03:00 Final Observation Date Value Abnormality Reference (Units ) Status WBC, Total 05/31/2024 09:03:00 8.43 4.00-10.8 0 (K/uL) Final RBC 05/31/2024 09:03:00 3.30 4.50-5.25 (M/uL) Final Hemoglobin 05/31/2024 09:03:00 8.5 Below low normal 14 .0-16.8 (g/dL) Final HCT 05/31/2024 09:03:00 27.4 Below low normal 40. 0-48.4 (%) Final MCV 05/31/2024 09:03:00 83.0 82.0-99.5 (fL) Final MCH 05/31/2024 09:03:00 25.8 27.0-34.0 (pg) Final MCHC 05/31/2024 09:03:00 31.0 32.0-36.0 (g/dL) Final RDW 05/31/2024 09:03:00 17.0 11.5-15.5 (%) Final Platelets 05/31/2024 09:03:00 452 Above high normal 14 0-400 (K/uL) Final MPV 05/31/2024 09:03:00 8.6 6.6-11.1 ( fL) Final Performing Location [facility] [address] [place] [id number]
--- OUTSIDE RECORDS SUMMARY | 2024-05-31 20:47 | External Medical Summary | Summary of Care ---
Author Name Unknown Organization [facility] Address [address] [facility] [address] Phone [phone] Care Team Providers Care Mat Roller Name Role Phone Rhianna Huitron DO Primary Care Provider Reason for Visit * Reason Comments eRx-Medication Refill Encounter Details Date Type Department Care Team (Late st Contact Info) Description 05/28/2024 Refill Cardiology, [facility] [address] [place] [address] [address] [place], [address] [place] [address] NSVT (nonsustained ventricular tachycardia) ([facility]); Non-ischemic cardiomyopathy ([facility]); Chronic HFrEF (heart failure with reduced ejection fraction) ([facility]) Allergies Active Allergy Reactions Criticality Noted Date Comments Brent Inhibitors Cough Low 11/26/2017 Alendronate Sodium Muscle pain 04/11/2019 Heartburn, constipation, joint pain Misoprostol Diarrhea 08/08/2003 Niacin Er 11/26/2010 Gas, hot flashes Pollen 01/01/2018 Watery eyes, sneezing Pravastatin 02/26/2007 Upset stomach, all .Statins Simvastatin 02/26/2007 Upset stomach documented as of this encounter (statuses as of 05/31/2024) Medications Medication Sig Dispensed Refills Start Date End Date Status ASPIR-81 81 MG PO TBEC 1 TABLET DAILY 0 6 Active Acetaminophen 325 MG Oral Tablet (Tylenol) [...] 4 Active Folic Acid 1 MG Oral TabletIndications:A rthritis, rheumatoid (HCC) TAKE 1 TABLET BY MOUTH EVERY DAY IN THE MORNING 90 Tablet 3 4 Active OneTouch Verio In Vitro Strip (Glucose Blood) Type 2 diabetes, check blood sugars 2 times a day, in am and pm. 100 Strip 1 4 Active Tamsulosin HCl 0.4 MG Oral Capsule (Flomax) TAKE 1 CAPSULE BY MOUTH EVERY MORNING 90 Capsule 3 4 Active Methotrexate Sodium 2.5 MG Oral TabletIndications:A rthritis, rheumatoid (HCC) TAKE 5 TABLETS BY MOUTH ONCE WEEKLY 65 Tablet 1 4 Active Losartan Potassium 25 MG Oral Tablet (Cozaar) One half tablet by mouth daily 45 Tablet 3 4 Active Rosuvastatin Calcium 5 MG Oral Tablet (Crestor) TAKE 1 TABLET BY MOUTH EVERY DAY IN THE MORNING 90 Tablet 3 4 Active Albuterol Sulfate HFA 108 (90 Base) MCG/ACT Inhalation Aerosol Solution Inhale 1 Puff by mouth every 6 hours as needed for Wheezing. 4 Active Melatonin 3 MG Oral Tablet Take 2 Tablets by mouth at bedtime. 4 Active Metoprolol Succinate ER 25 MG Oral Tablet Extended Release 24 Hour (toPROL XL)Indications:NSVT (nonsustained ventricular tachycardia) (HCC),Non-ischemic cardiomyopathy (HCC),Chronic HFrEF (heart failure with reduced ejection fraction) (HCC) Take 1 Tablet by mouth in the morning and 1 Tablet before bedtime. 180 Tablet 1 4 Active Metoprolol Succinate ER 50 MG Oral Tablet Extended Release 24 Hour (toPROL XL)Indications:NSVT (nonsustained ventricular tachycardia) (HCC),Non-ischemic cardiomyopathy (HCC),Chronic HFrEF (heart failure with reduced ejection fraction) (HCC) Take 0.5 Tablets by mouth in the morning and 0.5 Tablets before bedtime. 4 05/31/20 24 Discontinued documented as of this encounter (statuses as of 05/31/2024) Active Problems Problem Noted Date Diagnosed Date [...] glucose 12/16/2005 Macular degeneration 12/02/1999 DISC DIS [id number] documented as of this encounter (statuses as of 05/31/2024) Resolved Problems Problem Noted Date Diagnosed Date [...] colonoscopy in 5 years ARTHRITIS,RHEUMATOID 07/07/2006 016 [id number] 07/07/200611/01 Overview: Renamed Per Clinical Trials Billing Project. Pt is a participant in the [facility] ([employer]ortium [employer] [place]) national data collection study. For further information please call Dr Hari Clark or Julia White, RN, CCRC at [phone] [facility] RESEARCH OTHER*[id number] 07/07/2006 01/28/2010 Overview: Renamed Per Clinical Trials Billing Project. Pt is a participant in the [facility] ([employer] [place]) national data collection study. For further information please call Dr Hari Clark or Julia White, RN, CCRC at [phone] Hearing loss 12/02/1999 03/29/2013 documented as of this encounter (statuses as of 05/31/2024) Immunizations Name Administration Dates Next Due COVID-19 mRNA, LNP-s, No Pre serve, 2-Dose Series ([employer]) 06/14/2021,10/10/2020,09/12/2020 COVID-19, LNP-s, No Preserve , Yousuf-sucrose, Ages 12+ (Pfizer) 12/25/2021 Covid-19, Mrna, Lnp-s, Pf, B ivalent, 30 Mcg, IM, 12 yrs and above (Pfizer) 05/23/2022 Pneumococcal Conjugate Vacc, 13 Valent (Prevnar) 10/02/2014 Pneumococcal Polysaccharide PPV23 (Pneumovax) 09/01/2011,07/07/2006 Season Influenza, Quad, PF, Adjuvanted, 65+ Yrs, IM (FLUAD) 04/17/2020 Seasonal Influenza Vac., MDV , IM, 0.5 mL (Fluzone) 04/10/2014,05/16/2013,04/14/2012,04/24,05/20/2010,04/05/2009,05/11/2008 ,06/07/2007,07/07/2006 Seasonal Influenza, PF, 6 M & above, IM , (FluLaval or Fluzone) 05/06/2018 Seasonal Influenza, Quadriva lent Hd (Fluzone Hd) 05/08/2022,05/07/2021 Seasonal Influenza, Quadriva lent, No Preserve, IM 04/21/2017,04/16/2016,05/04/2015 Seasonal Influenza, Trivalen t, Adjuvanted, 65+ YRS, PF, (Fluad) 04/19/2019 TDAP (age 10 and older)(Boostrix) 12/04/2016 [...] encounter Miscellaneous Notes * Telephone Encounter - Alfredito Tapia RPh - 05/31/2024 9:37 AM EDTSigned Prescriptions: Disp Refills Metoprolol Succinate ER 25 MG Oral Tablet *180 Ta*1 Sig: Take 1 Tablet by mouth in the morning and 1 Tablet before bedtime.Authorizing Provider: ROBINSON BELLO User: ALFREDITO TAPIA * Telephone Encounter - Alfredito Tapia RPh - 05/31/2024 9:34 AM EDT Per 03/23/24 TE, metoprolol dose decreased to 25mg BID. Spoke to patient who confirmed he is taking 25mg BID and feeling a lot better with this dosage. Informed patient I would send a prescription forthe 25mg tablets so he does not have to cut the tablets anymore. Pt verbalized understanding and said that would be very helpful as the tablets kept breaking in multiple pieces when he would cut them. RX authorized. Refills given until upcoming appt. 10/17/2024 Thank you, Alfredito Tapia, PharmD Clinical Pharmacist [facility] ([facility]) [phone] 05/31/2024, 9:36 AM documented in this encounter Plan of Treatment Upcoming Encounters Date Type Department Care Team (Late st Contact Info) Description 06/20/2024 10:00 AM EST [facility], [place] [address] [place] [id number] [place], [facility] [address] [place] [facility] [place] [address] 06/27/2024 2:30 PM EST Office Visit Hematology/Oncology [facility] [address] [place] [id number] Korin Fisher CRNP [address] [place] [address] 06/28/2024 2:15 PM EST Procedure Only Urology, [facility] [address] [facility] [place] [address] Vinay Sexton MD [address] [place] [address] 09/08/2024 3:40 PM EST Office Visit Nephrology, [facility] [address] [place] [address] Bryson Ellis MD [address] [place] [address] 10/17/2024 10:30 AM EDT Office Visit Cardiology, [facility] [address] [facility] [place] [address] [address], [address] [facility] [place] [address] 03/21/2025 11:45 AM EDT Telemedicine Urology, [facility] [address] [facility] [place] [address] Vinay Sexton MD [address] [place] [address] Scheduled Procedures Name Priority Associated Diagnoses Date/Ti me COLONOSCOPY FLEXIBLE PROXIMAL DIAGNOSTIC Recall Hx of colonic polyps Health Maintenance Due Date Last Done Comments Adult Wellness Visit 03/16/2020 03/16/2019 DXA Scan 01/10/2021 01/10/2019, 12/0 12/2005, 07/07/2006 Depression Screening 03/13/2021 03/13/2020 Albumin/Creatinine Ratio 04/10/2023 04/10/2022, 05/10/2006 *BISPHONATE OR OTHER ACCEPTABLE MEDICATION NEEDED FOR OSTEOPOROSIS (REFER TO SMARTSET #1146) 04/29/2023 Colonoscopy 01/22/2024 01/21/2019, 01/02, 05/10/2013, Additional history exists COVID-19 Vaccine ( season) 2024 05/23/2022, 12/25/2021, 12/25/2021, Additional history exists Influenza Vaccine (FLU shot) (#1) 2024 05/08/2022, 05/07/2021, 04/17/2020, Additional history exists HbA1c 11/05/2024 11/06/2023, 06/04, 12/24/2022, Additional history exists GFR 11/28/2024 05/30/2024, 05/03, 03/21/2024, Additional history exists CKD HGB USE SMARTSET 90580 05/18/202505/18, 03/21/2024, 03/21/2024, Additional history exists CKD PHOS USE SMARTSET [id number] 05/18/2025 05/18/2024 DTap/Tdap Vaccines (3 - Td or Tdap) 12/04/2026 12/04/2016, 12/03/2006, 12/15/1996, Additional history exists Pneumococcal Vaccine: 65+ Years Completed 10/02/2014, 09/01/2011, 07/07/2006 RETIRED - COLONOSCOPY-EVERY 5 YRS AGES 18-100 Discontinued 01/21/2019, 01/21/2019, 05/10/2013, Additional history exists Zoster Vaccines Completed 09/03/2020, 0611/2019, 09/02/2019, Additional history exists Diabetic Foot Exam Discontinued 12/18/2023, 12/24/2022 Diabetic Eye Exam Discontinued 02/01/2024, , 01/30/2022, Additional history exists VITAMIN D LEVEL ONCE IN A LIFETIME-USE SMARTSET# [id number] Completed 03/21/2024, 12/25/2023, 05/27/2021, Additional history exists [...] Visit Diagnoses Diagnosis NSVT (nonsustained ventricular tachycardia) (HCC) Paroxysmal ventricular tachycardia Non-ischemic cardiomyopathy (HCC) Other primary cardiomyopathies Chronic HFrEF (heart failure with reduced ejection fraction) (HCC) documented in this encounter Care Teams Mat Roller Relationship Specialty Start Date End Date Rhianna Huitron DO [address] [place] [address] PCP - General Family Medicine 07/11/19 documented as of this encounter
--- OUTSIDE RECORDS SUMMARY | 2024-05-31 20:48 | External Medical Summary ---
Author Name Unknown Address Unknown Organization K01:[facility] [address] [place] [address] Laboratory Report Ordering Provider Test Date Status PAM MURILLO 05/30/2024 15:59:31 Final Observation Date Value Abnormality Reference (Units ) Status PSA 05/30/2024 15:59:31 0.03 <4.10 (ng/ mL) Final Performing Location [facility] [address] [place] [address]
--- OUTSIDE RECORDS SUMMARY | 2024-05-31 20:48 | External Medical Summary | Summary of Care ---
Author Name Unknown Organization [facility] Address [address] [facility] [address] Phone [phone] Care Team Providers Care Assembly Detailer Name Role Phone Kat Huitron DO Primary Care Provider [phone] Encounter Details Date Type Department Care Team (Late st Contact Info) Description 05/30/2024 2:15 PM EDT Office Visit Urology, [facility] [address] [facility] [place] [address] Vinay Sexton MD [address] [place] [address] Prostate cancer (HCC)*; BPH with obstruction/lower urinary tract symptoms; Elevated prostate specific antigen (PSA); Obstructive uropathy; Retention of urine Allergies Active Allergy Reactions Criticality Noted Date Comments Brent Inhibitors Cough Low 11/26/2017 Alendronate Sodium Muscle pain 04/11/2019 Heartburn, constipation, joint pain Misoprostol Diarrhea 08/08/2003 Niacin Er 11/26/2010 Gas, hot flashes Pollen 01/01/2018 Watery eyes, sneezing Pravastatin 02/26/2007 Upset stomach, all .Statins Simvastatin 02/26/2007 Upset stomach documented as of this encounter (statuses as of 05/30/2024) Medications Medication Sig Dispensed Refills Start Date [...] 24 Hour (toPROL XL)Indications:NSVT (nonsustained ventricular tachycardia) ([facility]),Non-ischemic cardiomyopathy (HCC),Chronic HFrEF (heart failure with reduced ejection fraction) (HCC) Take 0.5 Tablets by mouth in the morning and 0.5 Tablets before bedtime. 03/23/2024 Active Rosuvastatin Calcium 5 MG Oral Tablet (Crestor) TAKE 1 TABLET BY MOUTH EVERY DAY IN THE MORNING 90 Tablet 3 05/04/2024 Active Albuterol Sulfate HFA 108 (90 Base) MCG/ACT Inhalation Aerosol Solution Inhale 1 Puff by mouth every 6 hours as needed for Wheezing. 04/08/2024 Active Melatonin 3 MG Oral Tablet Take 2 Tablets by mouth at bedtime. 04/08/2024 Active Hospital, Clinic, or Other Facility Administered Medication Ordered Dose Route Frequency Start Date End Date Status Leuprolide Acetate (4 Month) (Lupron) inj 30 mgIndications:Prostate cancer (HCC) 30 mg IM ONCE 05/30/2024 05/30/2024 Ended documented as of this encounter (statuses as of 05/30/2024) Active Problems Problem Noted Date Diagnosed Date [...] glucose 12/16/2005 Macular degeneration 12/02/1999 DISC DIS [id number] documented as of this encounter (statuses as of 05/30/2024) Resolved Problems Problem Noted Date Diagnosed Date [...] colonoscopy in 5 years ARTHRITIS,RHEUMATOID 07/07/2006 016 [id number] 07/07/200611/01 Overview: Renamed Per Clinical Trials Billing Project. Pt is a participant in the [facility] (Consortium of Rheumatology Researchers of [place]) national data collection study. For further information please call Dr Hari Clark or Julia White, RN, CCRC at [phone] [facility] RESEARCH OTHER*[id number] 07/07/2006 01/28/2010 Overview: Renamed Per Clinical Trials Billing Project. Pt is a participant in the [facility] (Consortium of Rheumatology Researchers of [facility]) national data collection study. For further information please call Dr Hari Clark or Julia White, RN, CCRC at [phone] Hearing loss 12/02/1999 03/29/2013 documented as of this encounter (statuses as of 05/30/2024) Immunizations Name Administration Dates Next Due COVID-19 mRNA, LNP-s, No Pre serve, 2-Dose Series ([employer] [address] [address]) 06/14/2021,10/10/2020,09/12/2020 COVID-19, LNP-s, No Preserve , Yousuf-sucrose, Ages 12+ (Pfizer) 12/25/2021 Covid-19, Mrna, Lnp-s, Pf, B ivalent, 30 Mcg, IM, 12 yrs and above (Pfizer) 05/23/2022 Diptheria/Tetanus (Adult) 12/15/1996 Pneumococcal Conjugate Vacc, 13 Valent (Prevnar) 10/02/2014 Pneumococcal Polysaccharide PPV23 (Pneumovax) 09/01/2011,07/07/2006 Season Influenza, Quad, PF, Adjuvanted, 65+ Yrs, IM (FLUAD) 04/17/2020 Seasonal Influenza Vac., MDV , IM, 0.5 mL (Fluzone) 04/10/2014,05/16/2013,04/14/2012,04/24,05/20/2010,04/05/2009,05/11/2008 ,06/07/2007,07/07/2006,05/18/2003,05/03 Seasonal Influenza, PF, 6 M & above, IM , (FluLaval or Fluzone) 05/06/2018 Seasonal Influenza, Quadriva lent Hd (Fluzone Hd) 05/08/2022,05/07/2021 Seasonal Influenza, Quadriva lent, No Preserve, IM 04/21/2017,04/16/2016,05/04/2015 Seasonal Influenza, Trivalen t, Adjuvanted, 65+ YRS, PF, (Fluad) 04/19/2019 TD - Tetanus/Diptheria (ADULT) 08/03/1989 TDAP [...] Progress Notes * Vinay Sexton MD - 05/30/2024 2:15 PM EDT [id number] PCP: KAT HUITRON [address] [place] [address] [phone] Markus Wharton is a 79 year old male, who presents for cystoscopy for exchange of his Ingram catheter after difficult placement. Patient has been lost to follow-up for a couple of months despite anindwelling Ingram catheter and metastatic prostate cancer dependent on androgen deprivation therapy. Transportation was arranged, patient is here today with his son. Patient notes he was in his regular state of health but began having difficulties with catheterization. This was followed with weakness, fall, admission for sepsis, rehabilitation. As previously noted, his catheter has been in place for over 2 months. Patient notes regular pyuria. BPH: Patient is being seen for BPH today. He has had the following symptoms: slow stream, intermittency and nocturia. Severity is moderate. History of UTI. He has tried tamsulosin increased with BID. He has previously had no surgery done. Patient currently on CIC. Voids in small amounts without catheters. Ingram catheter placed acutely March 2024 Problem has been present for years. Problem is stable. Prostate cancer: Diagnosed March 2023 due to rise in PSA to 8.49 (2022). High-volume grade group 5 adenocarcinoma with evidence of hydronephrosis, han metastasis on PSMA scan. Lupron started April 2023. He was started on Zytega by Dr. Puente. Palliative XRT completed June 2023. PSA Results: Lab Results Component Value Date/Time PSA - [facility] 0.04 03/21/2024 08:43 AM PSA - [facility] 0.05 12/25/2023 02:31 PM PSA - [facility] 0.06 11/06/2023 11:47 AM PSA - [facility] 0.88 12/03/2006 09:18 AM PSA - [facility] 0.68 12/01/2005 11:34 AM PSA - [facility] 0.69 12/03/2004 09:34 AM PSA SCREENING 1.09 07/04/2010 08:41 AM Current Outpatient Medications Medication Sig Dispense [...] day, kostas and pm. 100 Strip 1 Tamsulosin HCl 0.4 MG Oral Capsule (Flomax) TAKE 1 CAPSULE BY MOUTH EVERY MORNING 90 Capsule 3 Methotrexate Sodium 2.5 MG Oral Tablet TAKE 5 TABLETS BY MOUTH ONCE WEEKLY 65 Tablet 1 Losartan Potassium 25 MG Oral Tablet (Cozaar) One half tablet by mouth daily 45 Tablet 3 Metoprolol Succinate ER 50 MG Oral Tablet Extended Release 24 Hour (toPROL XL) Take 0.5 Tablets by mouth in the morning and 0.5 Tablets before bedtime. Rosuvastatin Calcium 5 MG Oral Tablet (Crestor) TAKE 1 TABLET BY MOUTH EVERY DAY IN THE MORNING 90 Tablet 3 Albuterol Sulfate HFA 108 (90 Base) MCG/ACT Inhalation Aerosol Solution Inhale 1 Puff by mouth every 6 hours as needed for Wheezing. Melatonin 3 MG Oral Tablet Take 2 Tablets by mouth at bedtime. No current facility-administered medications for this visit. [...] date: 08/03/1962 Quit date: 08/03/1997 Years since quittin.8 Passive exposure: Past Smokeless tobacco: Never Tobacco comments: occasional cigar Substance Use Topics Alcohol use: Not Currently Vaping/E-Cigarette Use Vaping/E-Cigarette Use Never User Vaping/E-Cigarette Substances Vaping/E-Cigarette Devices Past Surgical History: Procedure Laterality Date COLONOSCOPY W/ LESION REMOVAL, SNARE 05/10/07 adenomatous repeat in 5 years COLONOSCOPY, DIAGNOSTIC (RECTUM) 05/10/2013 COLONOSCOPY FLEXIBLE PROXIMAL DIAGNOSTIC performed by Teddy Rizvi MD at [facility]COPY [facility] COLONOSCOPY, DIAGNOSTIC (RECTUM) 01/21/2019 diverticulosis, repeat 5 yrs/COLONOSCOPY FLEXIBLE PROXIMAL DIAGNOSTIC performed by Teddy Rizvi MD at [facility]COPY [facility] REMOVE TONSILS & ADENOIDS, AGE 12+ 1980 Tonsillectomy/Adenoids,12+ Y/O Past Medical History: Diagnosis Date Arthritis, rheumatoid (HCC) Benign neoplasm of colon 05/10/07 adenomatous repeat colonoscopy in 5 years Degeneration of lumbosacral intervertebral disc Elevated blood pressure, situational Fuchs' corneal dystrophy 10/19/2018 Impaired fasting glucose Macular degeneration Morbid (severe) obesity due to excess calories ([facility]) 08/19/2017 Patient Active Problem List Diagnosis Macular degeneration DISC DIS [id number] Impaired fasting glucose ADVANCE DIRECTIVE INFORMATION Encounter [...] failure (HCC) Chronic kidney disease, stage 3a ([facility]) S/P angioplasty with stent Constitutional: (-) fever Eyes: (+) decreased vision Musculoskeletal: (+) muscle weakness Neurology: (+) loss of balance Male : See HPI Physical Exam Nursing note reviewed. Constitutional: General: He is not in acute distress. Appearance: He is obese. He is not toxic-appearing. Comments: In stretcher HENT: Head: Normocephalic. Right Ear: External ear normal. Left Ear: External ear normal. Mouth/Throat: Mouth: Mucous membranes are moist. Cardiovascular: Pulses: Normal pulses. Pulmonary: Effort: No respiratory distress. Abdominal: General: There is no distension. Palpations: Abdomen is soft. Tenderness: There is no abdominal tenderness. Genitourinary: Penis: Circumcised. Comments: Copious pus in and around catheter Neurological: Motor: Weakness present. Gait: Gait abnormal. Psychiatric: Mood and Affect: Mood normal. Cystoscopy Procedure Note: Indwelling catheter removed, copious drainage of pus from urethra and catheter after removal. Patient was properly identified and appropriate consent was confirmed. Risks and benefits of the procedure were reviewed and the patient was prepped and draped in the standard fashion for the procedure. A well lubricated 16 Lithuanian flexible cystoscope was introduced through the meatus into the urethra. Urethra demonstrated cloudy purulent drainage. An undermined prostate and bladder neck with necrotic debris was noted, but was able to be bypassed without excess difficulty. Prostatic urethra demonstrated obstructed, blanched tissue . Bladder neck was visualized and bladder was entered. Sterile saline irrigation was used to distend the bladder which was noted to have thick, cloudy debris with i nflamed mucosa severely limiting visualization with a patulous detrusor. Bladder was completely inspected including retroflexion of the scope. Ureteral orifices were not visualized. After this was completed the cystoscope was removed. Eighteen Lithuanian coude Ingram catheter was able to be placed without the need for a guidewire and 10 mL of sterile water were placed in the balloon. Bladder was irrigated with sterile saline until clot in his resolved. After this was complete, catheter was placed togravity drainage. Refuse Collector was present for entire procedure. Impression/Plan: 79-year-old male with metastatic prostate cancer, urinary retention. Ideally, will resume the patient's previous CIC regimen. However, especially in the context of his extended Ingram catheter placement and continued weakness and mobility issues, I do not think it would be stock to proceed with a trial of void at this time. Will see the patient back in a month for repeat evaluation with cystoscopy and catheter exchange. Patient instructed on home irrigation, provided irrigation kit. Will obtain lab work while the patient is here today. The importance of regular follow-up medical providers is emphasized. Patient vocalizes good understanding of the treatment plan. Vinay Sexton MD 11:09 AM 05/30/2024 documented in this encounter Plan of Treatment Upcoming Encounters Date Type Department Care Team (Late st Contact Info) Description 05/31/2024 7:00 AM EDT Laboratory Lab Mobile Phlebotomy [facility] [address] [facility] [place] [place] [address] [facility], [facility] Mobile Home Draw [address] [facility] [place] [address] 06/20/2024 10:00 AM EST Laboratory Laboratory, [place] [address] [place] [id number] [place], [facility] [address] [place] [facility] [address] 06/27/2024 2:30 PM EST Office Visit Hematology/Oncology [facility] [address] [facility] [place] [phone] Korin Fisher CRNP [address] [place] [address] 06/28/2024 2:15 PM EST Procedure Only Urology, [facility] [address] [facility] [place] [address] Vinay Sexton MD [address] [place] [address] 09/08/2024 3:40 PM EST Office Visit Nephrology, [facility] [address] [place] [address] Bryson Ellis MD [address] [place] [address] 10/17/2024 10:30 AM EDT Office Visit Cardiology, [facility] [address] [facility] [place] [address] Dmitri Greenfield DO [address] [facility] [place] [address] 03/21/2025 11:45 AM EDT Telemedicine Urology, [facility] [address] [place] [address] Vinay Sexton MD [address] [place] [address] Pending Results Name Type Priority Associated Diagnoses Date /Time PSA Lab Routine Prostate cancer (HCC) 05/30/2024 3:59 PM EDT Scheduled Orders Name Type Priority Associated Diagnoses Orde r Schedule PSA Lab Routine Prostate cancer (HCC) Expected: 05/30/2024, Expires: 05/30/2025 BLADDER LAVAGE/INSTILLATION, SIMPLE (PHYSICIAN) Procedures Routine Obstructive uropathy Retention of urine Ordered: 05/30/2024 INS TEMP INDWELL CATH,COMPL Procedures Routine Obstructive uropathy Retention of urine Ordered: 05/30/2024 CYSTOSCOPY Procedures Routine Obstructive uropathy Retention of urine Ordered: 05/30/2024 Scheduled Procedures Name Priority Associated Diagnoses Date/Ti me COLONOSCOPY FLEXIBLE PROXIMAL DIAGNOSTIC Recall Hx of colonic polyps Health Maintenance Due Date Last Done Comments Adult Wellness Visit 03/16/2020 03/16/2019 DXA Scan 01/10/2021 01/10/2019, 12/2005, 07/07/2006 Depression Screening 03/13/2021 03/13/2020 Albumin/Creatinine Ratio 04/10/2023 04/10/2022, 10/2006 *BISPHONATE OR OTHER ACCEPTABLE MEDICATION NEEDED FOR OSTEOPOROSIS (REFER TO SMARTSET #1146) 04/29/2023 Colonoscopy 01/22/2024 01/21/2019, 01/02, 05/10/2013, Additional history exists COVID-19 Vaccine ( season) 2024 05/23/2022, 12/25/2021, 12/25/2021, Additional history exists Influenza Vaccine (FLU shot) (#1) 2024 05/08/2022, 05/07/2021, 04/17/2020, Additional history exists HbA1c 11/05/2024 11/06/2023, 06/04, 12/24/2022, Additional history exists GFR 11/16/2024 05/18/2024, 03/03, 12/25/2023, Additional history exists CKD HGB USE SMARTSET 53760 05/18/202505/18, 03/21/2024, 03/21/2024, Additional history exists CKD PHOS USE SMARTSET 82992 05/18/2025 05/18/2024 DTap/Tdap Vaccines (3 - Td or Tdap) 12/04/2026 12/04/2016, 12/03/2006, 12/15/1996, Additional history exists Pneumococcal Vaccine: 65+ Years Completed 10/02/2014, 09/01/2011, 07/07/2006 RETIRED - COLONOSCOPY-EVERY 5 YRS AGES 18-100 Discontinued 01/21/2019, 01/21/2019, 05/10/2013, Additional history exists Zoster Vaccines Completed 09/03/2020, 11/2019, 09/02/2019, Additional history exists Diabetic Foot Exam Discontinued 12/18/2023, 12/24/2022 Diabetic Eye Exam Discontinued 02/01/2024, , 01/30/2022, Additional history exists VITAMIN D LEVEL ONCE IN A LIFETIME-USE SMARTSET# [id number] Completed 03/21/2024, 12/25/2023, 05/27/2021, Additional history exists [...] cancer (HCC)- Primary Malignant neoplasm of prostate BPH with obstruction/lower urinary tract symptoms Hypertrophy of prostate with urinary obstruction and other lower urinary tract symptoms (LUTS) Elevated prostate specific antigen (PSA) Obstructive uropathy Urinary obstruction, unspecified Retention of urine Retention of urine, unspecified documented in this encounter Administered Medications Inactive Administered Medications - up to 3 most recent administrations Medication Order MAR Action Action Date Dose Rate Site Leuprolide Acetate (4 Month) (Lupron) inj 30 mg 30 mg, Intramuscular, ONCE, On 05/30/24 at 1630, For 1 dose Given 05/30/2024 4:12 PM EDT 30 mg Ventrogluteal Right documented in this encounter Care Teams Assembly Detailer Relationship Specialty Start Date End Date Kat Huitron DO [address] [place] [address] PCP - General Family Medicine 07/11/19 documented as of this encounter
--- OUTSIDE RECORDS SUMMARY | 2024-05-31 20:48 | External Medical Summary ---
Author Name Unknown Address Unknown Organization K01:[facility] [place] [address] [facility] [address] Laboratory Report Ordering Provider Test Date Status COLE PARSONS 05/30/2024 15:59:31 Final Observation Date Value Abnormality Reference (Units ) Status BUN 05/30/2024 15:59:31 15 6-20 (mg/dL) Final Creatinine 05/30/2024 15:59:31 0.9 0.6-1.2 (mg/dL) Final Glomerular filtration rate/1.73 sq M.predicted [Volume Rate/Area] in Serum, Plasma or Blood by Creatinine-based formula (CKD-EPI) 05/30/2024 15:59:31 88 >=60 (mL/min) Final eGFR is calculated based on the CKD-EPI 2020 equation. Sodium 05/30/2024 15:59:31 120 Below low normal 135 -146 (mmol/L) Final Potassium 05/30/2024 15:59:31 5.1 3.5-5.1 (m mol/L) Final Cl 05/30/2024 15:59:31 85 Below low normal 98- 107 (mmol/L) Final CO2 05/30/2024 15:59:31 22 22-32 (mmo l/L) Final Anion gap 05/30/2024 15:59:31 13 7-15 (mmol /L) Final Glucose 05/30/2024 15:59:31 117 70-120 (mg /dL) Final Calcium 05/30/2024 15:59:31 8.2 Below low normal 8.4 -10.2 (mg/dL) Final Performing Location [facility] [place] [facility] [address] [facility] [address]
--- OUTSIDE RECORDS SUMMARY | 2024-05-31 20:48 | External Medical Summary | Summary of Care ---
Author Name Unknown Organization [facility] Address [address] [place] [address] Phone [phone] Care Team Providers Care Spot Sprayer Name Role Phone Rhianna Huitron DO Primary Care Provider Reason for Referral * Ancillary Services (Within 10 days (routine)) - Authorized Specialty Diagnoses / Procedures Referred By Contac t Referred To Contact Finish Inspector Diagnoses Hyponatremia Stage 3a chronic kidney disease (HCC) Bryson Ellis MD [address] [place] [address] Referral ID Status Reason Start Date Expiration Date Visits Requested Visits Authorized [id number] Authorized Ancillary Services Required 4 [phone] Question Answer Referral Priority Within 10 days (routine) Where should this appointment be scheduled? Mary Comments Is Patient homebound? Yes All sections of this form must be filled out completely. Forms with missing or illegible information will be returned for completion. This form should not be modified in any way. Forms that have been modified will be returned. This form may not be submitted by a home health agency. It must be complete and submitted by the ordering provider. One full business day lead time is required and service will be scheduled based on the next service day for the [facility] Home Phlebotomy does not service every geographical location on a daily basis. Contact [facility] Client Services at to find out service days for a specific location. Medical Laboratory [facility] Patient Name: Markus Wharton : 1945 Sex: male Address [address] [place] [address] Provider: @REF@? Rhianna Huitron DO? Diagnosis: (E87.1) Hyponatremia (primary encounter diagnosis) (N18.31) Stage 3a chronic kidney disease (HCC) Tests Requested BMP - once Reason for Visit * Reason Onset Date Comments Outpatient Testing 05/27/2024 Encounter Details Date Type Department Care Team (Late st Contact Info) Description 05/27/2024 Telephone Nephrology, [address] [address] Bryson Ellis MD [address] [place] [address] Outpatient Testing Allergies Active Allergy Reactions Criticality Noted Date Comments Brent Inhibitors Cough Low 11/26/2017 Alendronate Sodium Muscle pain 04/11/2019 Heartburn, constipation, joint pain Misoprostol Diarrhea 08/08/2003 Niacin Er 11/26/2010 Gas, hot flashes Pollen 01/01/2018 Watery eyes, sneezing Pravastatin 02/26/2007 Upset stomach, all .Statins Simvastatin 02/26/2007 Upset stomach documented as of this encounter (statuses as of 05/27/2024) Medications Medication Sig Dispensed Refills Start Date [...] 24 Hour (toPROL XL)Indications:NSVT (nonsustained ventricular tachycardia) ([facility]),Non-ischemic cardiomyopathy ([facility]),Chronic HFrEF (heart failure with reduced ejection fraction) ([facility]) Take 0.5 Tablets by mouth in the [...] Tablets by mouth at bedtime. 04/08/2024 Active documented as of this encounter (statuses as of 05/27/2024) Active Problems Problem Noted Date Diagnosed Date [...] glucose 12/16/2005 Macular degeneration 12/02/1999 DISC DIS [id number] documented as of this encounter (statuses as of 05/27/2024) Resolved Problems Problem Noted Date Diagnosed Date [...] colonoscopy in 5 years ARTHRITIS,RHEUMATOID 07/07/2006 016 [id number] 07/07/200611/01 Overview: Renamed Per Clinical Trials Billing Project. Pt is a participant in the [employer] (Consortium of Rheumatology Researchers [place]) national data collection study. For further information please call Dr Hari Clark or Julia White RN, CCRC at [phone] [facility] RESEARCH OTHER*[id number] 07/07/2006 01/28/2010 Overview: Renamed Per Clinical Trials Billing Project. Pt is a participant in the [employer] (Consortium of [place]umatology [place] national data collection study. For further information please call Dr Hari Clark or Julia White RN, CCRC at [phone] Hearing loss 12/02/1999 03/29/2013 documented as of this encounter (statuses as of 05/27/2024) Immunizations Name Administration Dates Next Due COVID-19 [...] encounter Miscellaneous Notes * Telephone Encounter - Ruma Kay LPN - 05/27/2024 12:08 PM EDT Call to pt who no longer has [facility] homecare. Pt was d/c yesterday. Call to client services to arrange mobile phlebotomy. Spoke to Sumanth at client services. who reports that labs will be drawn on 05-31 Pt will be contacted to confirm on 05-30 Pt aware that home phlebotomy is being arranged. * Telephone Encounter - Ruma Kay LPN - 05/27/2024 11:57 AM EDT ----- Message from Bryson Ellis MD sent at 05/24/2024 1:34 PM EDT ----- He needs a repeat BMP next week, he gets all his lab work by [facility] home nurses. Please inform them of this. I have also instructed him to measure his blood pressure over the next 1 week. Please contact him for blood pressure readings next week(about the time he gets his BMP) documented in this encounter Plan of Treatment Upcoming Encounters Date Type Department Care Team (Late st Contact Info) Description 05/27/2024 3:30 PM EDT Telemedicine Urology Samy Bhatt [address] [place] [address] Vinay Sexton MD [address] [place] [address] 05/31/2024 7:00 AM EDT Laboratory Lab Mobile Phlebotomy [facility] [address] [facility] [place] [address] [facility], [facility] Mobile Home Draw [address] [facility] [place] [address] 06/20/2024 10:00 AM EST Laboratory Laboratory, [address] [id number] [place] [address] [place] [address] 06/27/2024 2:30 PM EST Office Visit Hematology/Oncology [facility] [place] [address] [facility] [phone] Korin Fisher CRNP [address] [facility] [place] [address] 09/08/2024 3:40 PM EST Office Visit Nephrology, [address] [address] Bryson Ellis MD [address] [place], [place] [address] 10/17/2024 10:30 AM EDT Office Visit Cardiology, [facility] [address] [facility] [place] [address] Dmitri [place], [address] [facility] [place] [address] 03/21/2025 11:45 AM EDT Telemedicine Urology, [facility] [address] [facility] [place] [address] Vinay Sexton MD [address] [place] [address] Scheduled Procedures Name Priority Associated Diagnoses Date/Ti me COLONOSCOPY FLEXIBLE PROXIMAL DIAGNOSTIC Recall Hx of colonic polyps Scheduled Referrals Name Type Priority Associated Diagnoses Orde r Schedule HOME PHLEBOTOMY REFERRAL OP Referral Within 10 days (routine) Hyponatremia Stage 3a chronic kidney disease (HCC) Ordered: 05/27/2024 Health Maintenance Due Date Last Done Comments Adult Wellness Visit 03/16/2020 03/16/2019 DXA Scan 01/10/2021 01/10/2019, 12/2005, 07/07/2006 Depression Screening 03/13/2021 03/13/2020 Albumin/Creatinine Ratio 04/10/2023 04/10/2022, 0510/2006 *BISPHONATE OR [...] Additional history exists CKD HGB USE SMARTSET 80065 05/18/202505/18, 03/21/2024, 03/21/2024, Additional history exists CKD PHOS USE SMARTSET 81840 05/18/2025 05/18/2024 DTap/Tdap Vaccines (3 - Td [...] D LEVEL ONCE IN A LIFETIME-USE SMARTSET# 85183 Completed 03/21/2024, 12/25/2023, 05/27/2021, Additional history exists [...] as of this encounter Visit Diagnoses Diagnosis Hyponatremia- Primary Hyposmolality and/or hyponatremia Stage 3a chronic kidney disease (HCC) documented in this encounter Care Teams Spot Sprayer Relationship Specialty Start Date End Date Rhianna Huitron DO [address] [facility] [place] [address] PCP - General Family Medicine 07/11/19 documented as of this encounter
--- OUTSIDE RECORDS SUMMARY | 2024-05-31 20:48 | External Medical Summary | Summary of Care ---
Author Name Unknown Organization [facility] Address [address] [place] [address] Phone [phone] Care Team Providers Care Drug And Alcohol Counselor Name Role Phone Rhianna Huitron DO Primary Care Provider Reason for Visit * Reason Onset Date Comments Urinary Tract Infection Symptoms 05/17/2024 Encounter Details Date Type Department Care Team (Late st Contact Info) Description 05/17/2024 Telephone [facility] [address] [place] [address] Rhianna Huitron DO [address] [place] [address] Urinary Tract Infection Symptoms Allergies Active Allergy Reactions Criticality Noted Date Comments Brent Inhibitors Cough Low 11/26/2017 Alendronate Sodium Muscle pain 04/11/2019 Heartburn, constipation, joint pain Misoprostol Diarrhea 08/08/2003 Niacin Er 11/26/2010 Gas, hot flashes Pollen 01/01/2018 Watery eyes, sneezing Pravastatin 02/26/2007 Upset stomach, all .Statins Simvastatin 02/26/2007 Upset stomach documented as of this encounter (statuses as of 05/18/2024) Medications Medication Sig Dispensed Refills Start Date [...] THE MORNING 90 Tablet 3 05/04/2024 Active documented as of this encounter (statuses as of 05/18/2024) Active Problems Problem Noted Date Diagnosed Date [...] glucose 12/16/2005 Macular degeneration 12/02/1999 DISC DIS [id number] documented as of this encounter (statuses as of 05/18/2024) Resolved Problems Problem Noted Date Diagnosed Date [...] colonoscopy in 5 years ARTHRITIS,RHEUMATOID 07/07/2006 016 [id number] 07/07/200611/01 Overview: Renamed Per Clinical Trials Billing Project. Pt is a participant in the [facility] (Consortium of Rheumatology Researchers [place]) national data collection study. For further information please call Dr Hari Clark or Julia White, RN, CCRC at [phone] [facility] RESEARCH OTHER*[id number] 07/07/2006 01/28/2010 Overview: Renamed Per Clinical Trials Billing Project. Pt is a participant in the [facility] (Consortium of Rheumatology Researchers of [facility]) national data collection study. For further information please call Dr Hari Clark or Julia White, RN, CCRC at [phone] Hearing loss 12/02/1999 03/29/2013 documented as of this encounter (statuses as of 05/18/2024) Immunizations Name Administration Dates Next Due COVID-19 mRNA, LNP-s, No Pre serve, 2-Dose Series ([employer]) 06/14/2021,10/10/2020,09/12/2020 COVID-19, LNP-s, No Preserve , Yousuf-sucrose, [...] encounter Miscellaneous Notes * Telephone Encounter - Marnie Sorensen LPN - 05/18/2024 1:36 PM EDT See other encounter * Telephone Encounter - Rhianna Huitron DO - 05/18/2024 9:59 AM EDT Thhis was negative for infection, what are his symptoms? Also the sample was from the bautista bag. When they change this next time, they can get a clean sample. Order placed needs to [facility] home health. * Telephone Encounter - Marah Hung LPN - 05/17/2024 2:16 PM EDT Patient had urinalysis on 05/11/2024 along with a culture. Would you like additional testing completed. * Telephone Encounter - Sarina Gupta OSA - 05/17/2024 12:28 PM EDT Established female patient age 18+ calling with UTI symptoms of (Call Details not required): burning when urinating Please call patient back at: [phone] Any additional information to pass onto the RN: n/a Note: - Route UTI concerns for established female patient age 18+ to [facility] NURSE TRIAGE POOL [[id number]] - For males of any age, females younger than 18 years old, and non-established females 18+, schedule an appointment. If unable to schedule, use [employer] and include CALL DETAILS. Route TE to Clinic Nurse Pool. documented in this encounter Plan of Treatment Upcoming Encounters Date Type Department Care Team (Late st Contact Info) Description 05/19/2024 10:20 AM EDT Telemedicine Rheumatology [place] [address] [place] [address] Mendle Wilson MD [address] [place] [address] 05/27/2024 3:30 PM EDT Telemedicine Urology Samy Bhatt [address] [place] [address] Vinay Sexton MD [address] [place] [address] 06/20/2024 10:00 AM EST Laboratory Laboratory, [place] [address] [place] [phone] [place], Laboratory [address] [place] [address] 06/27/2024 2:30 PM EST Office Visit Hematology/Oncology [facility] [address] [place] [phone] Korin Fisher CRNP [address] [facility] [place] [address] 10/17/2024 10:30 AM EDT Office Visit Cardiology, [facility] [address] [place] [address] Dmitri Greenfield, [address] [facility] [place] [address] 03/21/2025 11:45 AM EDT Telemedicine Urology, [facility] [address] [place] [address] Vinay Sexton MD [address] [facility] [place] [address] Scheduled Orders Name Type Priority Associated Diagnoses Orde r Schedule URINALYSIS, REFLEX TO CULTURE (NOT FOR NEUTROPENIC PATIENTS) Lab Routine Urinary retention Expected: 05/19/2024, Expires: 11/04/2024 Scheduled Procedures Name Priority Associated Diagnoses Date/Ti me COLONOSCOPY FLEXIBLE PROXIMAL DIAGNOSTIC Recall Hx of colonic polyps Health Maintenance Due Date Last Done Comments CKD PHOS USE SMARTSET 34082 02/23/1963 Adult Wellness Visit 03/16/2020 03/16/2019 DXA [...] Additional history exists CKD HGB USE SMARTSET 93010 03/21/202503/21, 03/21/2024, 12/25/2023, Additional history exists DTap/Tdap Vaccines (3 - Td or Tdap) [...] D LEVEL ONCE IN A LIFETIME-USE SMARTSET# 82149 Completed 03/21/2024, 12/25/2023, 05/27/2021, Additional history exists [...] as of this encounter Visit Diagnoses Diagnosis Urinary retention- Primary Retention of urine, unspecified documented in this encounter Care Teams Drug And Alcohol Counselor Relationship Specialty Start Date End Date Rhianna Huitron DO [address] [place] [address] PCP - General Family Medicine 07/11/19 documented as of this encounter
--- OUTSIDE RECORDS SUMMARY | 2024-05-31 20:48 | External Medical Summary | Summary of Care ---
Author Name Unknown Organization [facility] Address [address] [facility] [address] Phone [phone] Care Team Providers Care Veneer Gluer Name Role Phone Rhianna Huitron DO Primary Care Provider Reason for Visit * Reason Onset Date Comments Forms Request 05/25/2024 [facility] Encounter Details Date Type Department Care Team (Late st Contact Info) Description 05/25/2024 Telephone [facility] [address] [place] [address] Rihanna Huitron DO [address] [place] [address] Forms Request ([facility]) Allergies Active Allergy Reactions Criticality Noted Date Comments Brent Inhibitors Cough Low 11/26/2017 Alendronate Sodium Muscle pain 04/11/2019 Heartburn, constipation, joint pain Misoprostol Diarrhea 08/08/2003 Niacin Er 11/26/2010 Gas, hot flashes Pollen 01/01/2018 Watery eyes, sneezing Pravastatin 02/26/2007 Upset stomach, all .Statins Simvastatin 02/26/2007 Upset stomach documented as of this encounter (statuses as of 05/25/2024) Medications Medication Sig Dispensed Refills Start Date [...] MORNING 90 Tablet 3 09/21/2023 Active [employer] Davion In Vitro Strip (Glucose Blood) Type 2 [...] 24 Hour (toPROL XL)Indications:NSVT (nonsustained ventricular tachycardia) ([facility]),Non-ischemic cardiomyopathy (HCC),Chronic HFrEF (heart failure with reduced ejection fraction) ([facility]) Take 0.5 Tablets by mouth [...] as of this encounter (statuses as of 05/25/2024) Active Problems Problem Noted Date Diagnosed Date S/P angioplasty with stent 12/18/2023 Chronic kidney disease, stage 3a 09/14/2023 Overview: Per CKD protocol Heart failure 09/08/2023 Prostate cancer 04/13/2023 Dyslipidemia, goal LDL below 160 08/29/2019 Osteoporosis with symptom management only 2019 Morbid obesity with BMI of 40.0-44.9, adult 0503/2019 Prediabetes 11/08/2018 Overview: Per Prediabetes protocol #1 [...] glucose 12/16/2005 Macular degeneration 12/02/1999 DISC DIS [id number] documented as of this encounter (statuses as of 05/25/2024) Resolved Problems Problem Noted Date Diagnosed Date [...] colonoscopy in 5 years ARTHRITIS,RHEUMATOID 07/07/2006 016 [id number] 07/07/200611/01 Overview: Renamed Per Clinical Trials Billing Project. Pt is a participant in the [facility] (Consortium of Rheumatology Researchers [place] national data collection study. For further information please call Dr Hari Clark or Julia White, RN, CCRC at [phone] [facility] RESEARCH OTHER*[id number] 07/07/2006 01/28/2010 Overview: Renamed Per Clinical Trials Billing Project. Pt is a participant in the [facility] (Consortium of Rheumatology Researchers of [facility]) national data collection study. For further information please call Dr Hari Clark or Julia White, RN, CCRC at [phone] Hearing loss 12/02/1999 03/29/2013 documented as of this encounter (statuses as of 05/25/2024) Immunizations Name Administration Dates Next Due COVID-19 mRNA, LNP-s, No Pre serve, 2-Dose Series ([employer]) 06/14/2021,10/10/2020,09/12/2020 COVID-19, LNP-s, No Preserve , Yousuf-sucrose, Ages 12+ (Pfizer) 12/25/2021 Covid-19, Mrna, Lnp-s, Pf, B ivalent, 30 Mcg, IM, 12 yrs and above ([employer]) 05/23/2022 Pneumococcal Conjugate Vacc, 13 Valent (Prevnar) [...] encounter Miscellaneous Notes * Telephone Encounter - Luba Mondragon LPN - 05/25/2024 3:18 PM EDT Received Fax for BFPROVIDERS: Dr. Rhianna Huitron ORDER received from [facility] Home healthcare [facility] and FAXED documented in this encounter Plan of Treatment Upcoming Encounters Date Type Department Care Team (Late st Contact Info) Description 05/27/2024 3:30 PM EDT Telemedicine Urology Samy Bhatt [address] [facility] [address] [place] [address] Vinay Sexton MD [address] [place] [address] 06/20/2024 10:00 AM EST Laboratory Laboratory, [place] [address] [place] [address] [facility] [address] [place] [facility] [place] [address] 06/27/2024 2:30 PM EST Office Visit Hematology/Oncology [facility] [address] [facility] [address] Kroin Fisher CRNP [address] [place] [address] 09/08/2024 3:40 PM EST Office Visit Nephrology, [facility] [address] [place] [address] Bryson Ellis MD [address] [place] [address] 10/17/2024 10:30 AM EDT Office Visit Cardiology, [facility] [address] [facility] [place] [address] Dmitri Green[place], [address] [place] [address] 03/21/2025 11:45 AM EDT Telemedicine Urology, [facility] [address] [place] [address] Vinay Sexton MD [address] [place] [address] Scheduled Procedures Name Priority Associated Diagnoses Date/Ti [...] Additional history exists CKD HGB USE SMARTSET 87197 05/18/202505/18, 03/21/2024, 03/21/2024, Additional history exists CKD PHOS USE SMARTSET 57039 05/18/2025 05/18/2024 DTap/Tdap Vaccines (3 - Td [...] D LEVEL ONCE IN A LIFETIME-USE SMARTSET# 08314 Completed 03/21/2024, 12/25/2023, 05/27/2021, Additional history exists [...] as of this encounter Care Teams Veneer Gluer Relationship Specialty Start Date End Date Rhianna Huitron DO [address] [place] [address] PCP - General Family Medicine 07/11/19 documented as of this encounter
--- OUTSIDE RECORDS SUMMARY | 2024-05-31 20:48 | External Medical Summary | Summary of Care ---
Author Name Unknown Organization [facility] Address [address] [facility] [place] [address] Phone [phone] Care Team Providers Care Citrix Architect Name Role Phone Rhianna Huitron DO Primary Care Provider Reason for Visit * Reason Comments Rheum Follow Up Encounter Details Date Type Department Care Team (Late st Contact Info) Description 05/19/2024 10:20 AM EDT Telemedicine Rheumatology [facility] [address] [place] [address] Mendel Wilson MD [address] [place] [address] Rheumatoid arthritis involving multiple sites with positive rheumatoid factor (HCC)*; Encounter for long-term (current) use of medications Allergies Active Allergy Reactions Criticality Noted Date Comments Brent Inhibitors Cough Low 11/26/2017 Alendronate Sodium Muscle pain 04/11/2019 Heartburn, constipation, joint pain Misoprostol Diarrhea 08/08/2003 Niacin Er 11/26/2010 Gas, hot flashes Pollen 01/01/2018 Watery eyes, sneezing Pravastatin 02/26/2007 Upset stomach, all .Statins Simvastatin 02/26/2007 Upset stomach documented as of this encounter (statuses as of 05/19/2024) Medications Medication Sig Dispensed Refills Start Date [...] 24 Hour (toPROL XL)Indications:NSVT (nonsustained ventricular tachycardia) ([facility]),Non-ischemic cardiomyopathy (HCC),Chronic HFrEF (heart failure with reduced ejection fraction) ([facility]) Take 0.5 Tablets by mouth in the [...] as of this encounter (statuses as of 05/19/2024) Active Problems Problem Noted Date Diagnosed Date [...] glucose 12/16/2005 Macular degeneration 12/02/1999 DISC DIS [id number] documented as of this encounter (statuses as of 05/19/2024) Resolved Problems Problem Noted Date Diagnosed Date [...] colonoscopy in 5 years ARTHRITIS,RHEUMATOID 07/07/2006 016 [id number] 07/07/200611/01 Overview: Renamed Per Clinical Trials Billing Project. Pt is a participant in the [facility] (Consortium of Rheumatology Researchers of [place]) national data collection study. For further information please call Dr Hari Clark or Julia White, RN, CCRC at [phone] [facility] RESEARCH OTHER*[id number] 07/07/2006 01/28/2010 Overview: Renamed Per Clinical Trials Billing Project. Pt is a participant in the [facility] (Consortium of Rheumatology Researchers of [facility]) national data collection study. For further information please call Dr Hari Clark or Julia White, RN, CCRC at [phone] Hearing loss 12/02/1999 03/29/2013 documented as of this encounter (statuses as of 05/19/2024) Immunizations Name Administration Dates Next Due COVID-19 mRNA, LNP-s, No Pre serve, 2-Dose Series ([employer]) 06/14/2021,10/10/2020,09/12/2020 COVID-19, LNP-s, No Preserve , Yousuf-sucrose, Ages 12+ (Pfizer) 12/25/2021 Covid-19, Mrna, Lnp-s, Pf, B ivalent, 30 Mcg, IM, 12 yrs and above ([employer]) 05/23/2022 Pneumococcal Conjugate Vacc, 13 Valent (Prevnar) [...] as of this encounter Progress Notes * Mendel Wilson MD - 05/19/2024 10:16 AM EDT Images from the original note were not included. Assessment and Plan Rheumatoid arthritis involving multiple sites with positive rheumatoid factor (HCC) - Comprehensive Metabolic Panel; Standing Encounter for long-term (current) use of medications - Comprehensive Metabolic Panel; Standing His rheumatoid arthritis is relatively stable, he did have 1 flare while in rehab after having his methotrexate stopped for an illness but is now better. His hemoglobin was low yesterday he will needto keep an eye on that which is being followed by Hematology since he is on low-dose methotrexate. For now will continue with methotrexate at current dose. Continue with labs every 3 months. Will seein the springtime. Rheumatology Synopsis: [facility] RA SYNOPSIS Date of RA Diagnosis: 08/03/05 (09/10/2023 9:00 AM) Current Treatment: MTX (09/10/2023 9:00 AM) 2009 Classification Criteria: Y (09/10/2023 9:00 AM) Seropositive or seronegative: Seropositive (09/10/2023 9:00 AM) RF and/or CCP: RF+ (09/10/2023 9:00 AM) Disease activity: Stable Patient History History of Present Illness HPI:79 year old male presented to rheumatology clinic for Rheum Follow Up He reports that he was at [facility] for 1 week for a UTI. He had a fall at home. He then spent 3 weeks at [facility] for rehab. He reports he has been home a few weeks. He did have a flare up of his RA while at [facility] - the flare up was mainly his hands, elbows, shoulders. He is currently using a walker, rolling walker and a wheel chair. Given that he set this appt up via video. At [facility] he had his MTX held but was resumed at [facility]. He is taking it on Thursday - 5 tabs. No swelling today. Labs yesterday show hgb 8.4 and Na 127. Heis not drinking as much water as he was. He no longer has a life vest. Still ROS: Review of Systems was asked and the following other significant symptoms are present: weakness, joint pains, swelling, am stiffness Rheumatology History Subjective Patient's past history, medications, and allergies were reviewed. Objective Physical Exam Constitutional: no acute distress HEENT: Normocephalic, atraumatic, external ears were normal Eyes: sclera and conjunctiva normal MSK: On limited exam he had no synovitis to the hands. Can make a complete fist with either hand. MSK/Joint exam (Homunculus) MSK Exam findings: Homunculus exam Studies: Labs and Imaging studies reviewed with pertinent findings noted below: Disease Treatment Response CDAI Scoring Patient Global: 50 / 100 Provider Global: 20 / 100 Tender (KENT-28): 0 / 28 Swollen (KENT-28): 0 / 28 CDAI: 7 CDAI (Clinical Disease Activity Index) [facility] Outcomes measures: Serial CDAI: Synopsis SmartLink 05/19/2024 10:20 09/10/2023 09:40 CDAI CDAI 7 6 - Serial CDAI: - Yes - Remission: - Yes - low disease activity Currently on csDMARD: Yes Currently on Biologic DMARD: No Vaccination status: COVID: Vaccine and/or Health maintenance status Incomplete Influenza:Flu Vaccine pending for this season Pneumococcal:Vaccine Series complete Zoster:Vaccine Series Complete Last Hepatitis and TB testing: Hepatitis B: Tested, result reviewed Hepatitis C: Tested, result reviewed PPD or TB-Gold: Not Tested, results not available Lab Results Component Value Date HBSAG Negative 04/10/2023 HEPB <3.5 04/10/2023 HEPB Negative 04/10/2023 HEPB NOT immune to Hepatitis B Virus 04/10/2023 HEPB Negative 04/10/2023 HCVAB NEGATIVE 07/07/2006 No results found for: "TB GOLD AG NIL", "TB GOLD MITOGEN NIL", "PPD INDURATION", "PPD-OUTSIDE LAB","QUANTIFERON GOLD TB", "QUANTIFERON-TB PLUS", "QUANTIFERON-TB PLUS,1T", "QUANTIFERON-TB PLUS,4T" Wrap-Up Follow-up: Return in about 6 months (around 11/17/2024). | Check-out note: RA documented in this encounter Plan of Treatment Upcoming Encounters Date Type Department Care Team (Late st Contact Info) Description 05/27/2024 3:30 PM EDT Telemedicine Urology Samy Bhatt [address] [place] [address] Vinay Sexton MD [address] [place] [address] 06/20/2024 10:00 AM [facility] Laboratory Laboratory, [place] [address] [address] [facility] [address] [facility] [phone] [facility] [address] [place] [address] 06/27/2024 2:30 PM EST Office Visit Hematology/Oncology [facility] [address] [facility] [phone] Korin Fisher CRNP [address] [facility] [place] [address] 10/17/2024 10:30 AM EDT Office Visit Cardiology, [facility] [address] [facility] [place] [address] Dmitri Greenfield DO [address] [facility] [place] [address] 03/21/2025 11:45 AM EDT Telemedicine Urology, [facility] [address] [facility] [place] [address] Vinay Sexton MD [address] [place] [address] Scheduled Orders Name Type Priority Associated Diagnoses Orde r Schedule COMPREHENSIVE METABOLIC PANEL Lab Routine Rheumatoid arthritis involving multiple sites with positive rheumatoid factor (HCC) Encounter for long-term (current) use of medications Every 3 Months for 4 Occurrences starting 05/19/2024 until 05/20/2025 Scheduled Procedures Name Priority Associated Diagnoses Date/Ti [...] Additional history exists CKD HGB USE SMARTSET 51211 05/18/202505/18, 03/21/2024, 03/21/2024, Additional history exists CKD PHOS USE SMARTSET 47115 05/18/2025 05/18/2024 DTap/Tdap Vaccines (3 - Td [...] D LEVEL ONCE IN A LIFETIME-USE SMARTSET# 66211 Completed 03/21/2024, 12/25/2023, 05/27/2021, Additional history exists [...] sites with positive rheumatoid factor (HCC)- Primary Encounter for long-term (current) use of medications Encounter for long-term (current) use of other medications documented in this encounter Care Teams Citrix Architect Relationship Specialty Start Date End Date Rhainna Huitron DO [address] [place] [address] PCP - General Family Medicine 07/11/19 documented as of this encounter
--- OUTSIDE RECORDS SUMMARY | 2024-05-31 20:48 | External Medical Summary | Summary of Care ---
Author Name Unknown Organization [facility] Address [address] [place] [facility] [place] [address] Phone [phone] Care Team Providers Care Market Research Assistant Name Role Phone Rhianna Huitron DO Primary Care Provider Reason for Referral * Evaluate & Treat - Unlimited Visits (Within 10 days (routine)) - Authorized Specialty Diagnoses / Procedures Referred By Clarke gore Referred To Contact Nephrology Diagnoses Hyponatremia Rhianna Huitron DO [address] [place] [address] Referral ID Status Reason Start Date Expiration Date Visits Requested Visits Authorized [id number] Authorized Specialty Services Required 4 [phone] Question Answer Referral Priority Within 10 days (routine) Where should this appointment be scheduled? [facility] What condition is this patient being seen for? Electrolyte Problem Encounter Details Date Type Department Care Team (Late st Contact Info) Description 05/19/[address] [facility] [address] [facility] [address] Rhianna Huitron DO [address] [place] [facility] [place] [address] Allergies Active Allergy Reactions Criticality Noted [...] failure with reduced ejection fraction) ([facility]) Take 0.5 Tablets by mouth in the [...] glucose 12/16/2005 Macular degeneration 12/02/1999 DISC DIS [id number] documented as of this encounter (statuses as [...] colonoscopy in 5 years ARTHRITIS,RHEUMATOID 07/07/2006 016 [id number] 07/07/200611/01 Overview: Renamed Per Clinical Trials Billing Project. Pt is a participant in the [facility] (Consortium of Rheumatology Researchers [place] national data collection study. For further information please call Dr Hari Clark or Julia White, RN, CCRC at [phone] [facility] RESEARCH OTHER*[id number] 07/07/2006 01/28/2010 Overview: Renamed Per Clinical Trials Billing Project. Pt is a participant in the [facility] (Consortium of Rheumatology Researchers [place] national data collection study. For further information please call Dr Hari Clark or Julia White, RN, CCRC at [phone] Hearing loss 12/02/1999 03/29/2013 documented as of this encounter (statuses as of 05/25/2024) Immunizations Name Administration Dates Next Due COVID-19 mRNA, LNP-s, No Pre serve, 2-Dose Series ([employer]) 06/14/2021,10/10/2020,09/12/2020 COVID-19, LNP-s, No Preserve , Yousuf-sucrose, Ages 12+ (Pfizer) 12/25/2021 Covid-19, Mrna, Lnp-s, Pf, B ivalent, 30 Mcg, IM, 12 yrs and above ([employer]) 05/23/2022 Pneumococcal Conjugate Vacc, 13 Valent (Prevnar) [...] encounter Miscellaneous Notes * Telephone Encounter - Eliseo Braden OSA - 05/19/2024 1:17 PM EDT Patient scheduled * Telephone Encounter - Rhianna Huitron DO - 05/19/2024 9:04 AM EDT Please contact pt and let him know I reviewed his labs and he is anemic, his hemoglobin dropped down to 8.4. please see if he is having any blood in his urine? Or stool? Also his sodium is low, in which I have placed a referral for nephrology How much water is he drinking? documented in this encounter Plan of Treatment Upcoming Encounters Date Type Department Care Team (Late st Contact Info) Description 05/27/2024 3:30 PM EDT Telemedicine Urology Samy Bhatt [address] [place] [address] [place] [address] Vinay Sexton MD [address] [place] [address] 06/20/2024 10:00 AM EST Laboratory Laboratory, [place] [address] [facility] [phone] [facility] [address] [place] [address] 06/27/2024 2:30 PM EST Office Visit Hematology/Oncology [facility] [place] [address] [facility] [phone] Korin Fisher CRNP [address] [facility] [place] [address] 09/08/2024 3:40 PM EST Office Visit Nephrology, [facility] [address] [facility] [place] [place] [address] Bryson Ellis MD [address] [facility] [place] [address] 10/17/2024 10:30 AM EDT Office Visit Cardiology, [facility] [address] [facility] [place] [address] Dmitri Greenfield, [address] [facility] [place] [address] 03/21/2025 11:45 AM EDT Telemedicine Urology, [facility] [address] [facility] [place] [address] Vinay Sexton MD [address] [facility] [place] [address] Scheduled Procedures Name Priority Associated Diagnoses Date/Ti me COLONOSCOPY FLEXIBLE PROXIMAL DIAGNOSTIC Recall Hx of colonic polyps Scheduled Referrals Name Type Priority Associated Diagnoses Orde r Schedule NEPHROLOGY REFERRAL OP Referral Within 10 days (routine) Hyponatremia Ordered: 05/19/2024 Health Maintenance Due Date Last Done Comments [...] Additional history exists CKD HGB USE SMARTSET 14705 05/18/202505/18, 03/21/2024, 03/21/2024, Additional history exists CKD PHOS USE SMARTSET 06493 05/18/2025 05/18/2024 DTap/Tdap Vaccines (3 - Td [...] D LEVEL ONCE IN A LIFETIME-USE SMARTSET# 49696 Completed 03/21/2024, 12/25/2023, 05/27/2021, Additional history exists [...] Diagnoses Diagnosis Hyponatremia- Primary Hyposmolality and/or hyponatremia documented in this encounter Care Teams Market Research Assistant Relationship Specialty Start Date End Date Rhianna Huitron DO [address] [place] [address] PCP - General Family Medicine 07/11/19 documented as of this encounter
--- OUTSIDE RECORDS SUMMARY | 2024-05-31 20:48 | External Medical Summary | Summary of Care ---
Author Name Unknown Organization [facility] Address [address] [place] [address] Phone [phone] Care Team Providers Care Optical Manufacturing Technician Name Role Phone Rhianna Huitron DO Primary Care Provider [phone] Reason for Visit * Evaluate & Treat - Unlimited Visits (Within 10 days (routine)) - Authorized Specialty Diagnoses / Procedures Referred By Clarke gore Referred To Contact Nephrology Diagnoses Hyponatremia Rhianna Huitron DO [address] [place] [address] Referral ID Status Reason Start Date Expiration Date Visits Requested Visits Authorized [id number] Authorized Specialty Services Required 4 [phone] Encounter Details Date Type Department Care Team (Late st Contact Info) Description 05/24/2024 1:00 PM EDT Telemedicine Nephrology, [address] [address] Bryson Ellis MD [address] [place] [id number] Systolic heart failure, unspecified HF chronicity (HCC)*; Hyponatremia; Stage 3a chronic kidney disease (HCC) Allergies Active Allergy Reactions Criticality Noted Date Comments Brent Inhibitors Cough Low 11/26/2017 Alendronate Sodium Muscle pain 04/11/2019 Heartburn, constipation, joint pain Misoprostol Diarrhea 08/08/2003 Niacin Er 11/26/2010 Gas, hot flashes Pollen 01/01/2018 Watery eyes, sneezing Pravastatin 02/26/2007 Upset stomach, all .Statins Simvastatin 02/26/2007 Upset stomach documented as of this encounter (statuses as of 05/24/2024) Medications Medication Sig Dispensed Refills Start Date [...] as of this encounter (statuses as of 05/24/2024) Active Problems Problem Noted Date Diagnosed Date [...] glucose 12/16/2005 Macular degeneration 12/02/1999 DISC DIS [id number] documented as of this encounter (statuses as of 05/24/2024) Resolved Problems Problem Noted Date Diagnosed Date [...] colonoscopy in 5 years ARTHRITIS,RHEUMATOID 07/07/2006 016 [id number] 07/07/200611/01 Overview: Renamed Per Clinical Trials Billing Project. Pt is a participant in the [facility] (Consortium of Rheumatology Researchers of [place]) national data collection study. For further information please call Dr Hari Clark or Julia White, RN, CCRC at [phone] [facility] RESEARCH OTHER*[id number] 07/07/2006 01/28/2010 Overview: Renamed Per Clinical Trials Billing Project. Pt is a participant in the [facility] (Consortium of Rheumatology Researchers of [place]) national data collection study. For further information please call Dr Hari Clark or Julia White, RN, CCRC at [phone] Hearing loss 12/02/1999 03/29/2013 documented as of this encounter (statuses as of 05/24/2024) Immunizations Name Administration Dates Next Due COVID-19 mRNA, LNP-s, No Pre serve, 2-Dose Series (Mpayy) 06/14/2021,10/10/2020,09/12/2020 COVID-19, LNP-s, No Preserve , Yousuf-sucrose, Ages 12+ (Pfizer) 12/25/2021 Covid-19, Mrna, Lnp-s, Pf, B ivalent, 30 Mcg, IM, 12 yrs and above (Mpayy) 05/23/2022 Pneumococcal Conjugate Vacc, 13 Valent (Prevnar) [...] as of this encounter Progress Notes * Bryson Ellis MD - 05/24/2024 12:57 PM EDT Subjective: Markus Wharton is a 79 year old male. No chief complaint on file. HPI: 79-year-old seen as hospital discharge. [facility] admission on 03/31 w/generalized weakness, UTI, CT abdomen pelvis showed bladder wall thickening and surrounding fatty stranding, urine culture was positive for Klebsiella pneumoniae, on admission echo showed EF of 50% with borderline diffuse LV hypokinesia, serum creatinine was at baseline(between 1.2- 1.4, as per hospital records). (Entresto was discontinued secondary to hypotension and he was started on losartan 12.5 mg, metoprolol succinate was reduced to 25 mg daily--by Cardiology) Past medical history of prediabetes, hyperlipidemia, hypertension, chronic systolic heart failure, history of CAD SP stent, prostate cancer, chronic kidney disease stage 3, degenerative disc disease,osteoporosis, macular degeneration, Fuchs corneal dystrophy, rheumatoid arthritis. PMH: Patient Active Problem List Diagnosis Macular degeneration DISC DIS [id number] Impaired fasting glucose ADVANCE DIRECTIVE INFORMATION Encounter [...] failure (HCC) Chronic kidney disease, stage 3a (HCC) S/P angioplasty with stent Current Outpatient Medications Medication Sig Dispense Refill [...] performed by Teddy Rizvi MD at ENDOSCOPY [facility] COLONOSCOPY, DIAGNOSTIC (RECTUM) 01/21/2019 diverticulosis, repeat 5 yrs/COLONOSCOPY FLEXIBLE PROXIMAL DIAGNOSTIC performed by Teddy Rizvi MD at ENDOSCOPY [facility] REMOVE TONSILS & ADENOIDS, AGE 12+ 1979 Tonsillectomy/Adenoids,12+ Y/O Review of patient's allergies indicates: Allergen Reactions Fosamax [Alendronate Sodium] Muscle pain Heartburn, constipation, joint pain Misoprostol Diarrhea Niaspan [Niacin Er] Gas, hot flashes Pollen Watery eyes, sneezing Pravastatin Upset stomach, all .Statins Simvastatin Upset stomach Brent Inhibitors Cough Family History Problem Relation Name Age of [...] on file Occupational History Employer: [employer] Tobacco Use Smoking status: Former Current packs/day: [...] Never true Transportation Needs: Not on file Social Connections: Unknown (05/24/2024) Social Connections How often do you feel lonely or isolated from those around you? (Adult - for ages 18 years and over): Not on file Housing Stability: Not on file Recent Labs Units 05/18/24 0000 03/21/24 0843 12/25/23 1431 09/09/23 1018 SODIUM - [facility] mmol/L -- 135 138 133* POTASSIUM - [facility] MMOL/L 4.0 4.4 4.6 5.0 CHLORIDE - [facility] mmol/L -- 97* 101 96* CO2 - [facility] mmol/L -- 22 27 27 ESTIMATED GLOMERULAR FILTRATION RATE - [facility] 88.01 62 50* 51* BUN - [facility] mg/dL -- 17 32* 28* CREATININE - [facility] MG/DL 0.88 1.2 1.4* 1.4* Recent Labs Units 05/18/24 0000 03/21/24 0843 12/25/23 1431 04/16/23 1239 04/10/23 1302 HGB G/DL 8.4* 11.1* 11.1* < > 8.1* FERRITIN - [facility] ng/mL -- -- -- -- 342 TRANSFERRIN SATURATION PERCENT - [facility] % -- -- -- -- 13* < > = values in this interval not displayed. Recent Labs Units 05/18/24 0000 03/21/24 0843 12/25/23 1431 09/09/23 1018 CALCIUM - [facility] mg/dL -- 9.1 9.5 9.4 PHOSPHORUS-OUTSIDE LAB MG/DL 3.0 -- -- -- 25-HYDROXY VITAMIN D - [facility] ng/mL -- 29 28 -- Recent Labs Units 11/06/23 1147 06/22/23 1038 12/24/22 0921 HEMOGLOBIN A1C - [facility] % 6.0* 6.1* 6.7* Labs from 05/19/24 Sodium 127 Potassium 4 Chloride 92 CO2 27 BUN 11 Creatinine 0.88 EGFR 88.01 Calcium 8.2 Phosphorus 3 Magnesium 1.9 Hemoglobin 8.4 Objective: There were no vitals taken for this visit. BP Readings from Last 5 Encounters: 12/25/23 108/55 12/18/23 130/70 12/08/23 120/68 11/06/23 124/62 09/18/23 114/64 Wt Readings from Last 5 Encounters: 12/25/23 (!) 137.9 kg (304 lb) 12/18/23 135.6 kg (299 lb) 12/08/23 134.2 kg (295 lb 12.8 oz) 11/06/23 136.1 kg (300 lb) 09/18/23 134.7 kg (297 lb) ASSESSMENT: FREDY/CKD stage IIIA-- hyper tension, obstructive uropathy, cardiorenal syndrome Baseline creatinine in early 1s--fluctuations secondary to his volume status. His EGFR is more than 60 on the latest labs. Hypertension-he is on losartan and metoprolol, he says he was on diuretic which was stopped sometime back. He says his home readings are" good". He will maintain a blood pressure chart over the next 1 week and let the Nephrology office know. 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 His sodium has been in late 120s to early 130s. Presently he is drinking around 65 oz daily. I have asked him to restrict this to 45-50 oz. repeat BMP in 1 weeks time. He can also be started on small dose of furosemide to keep sodium in 130s if fluid restriction alone does not help. History systolic heart failure and CAD status post LAD stent 09/26 -difficult to comment on the volume status with a tele visit, but he denies having any pedal edema but has been sleeping on a recliner. Can be started on furosemide if needed. This will help hyponatremia as well. Acute urinary returned -He is due to see Dr. Sexton this Thursday. Presently on Ingram's catheter RTC in 3 months time, preferably in person visit. Bryson Ellis MD This chart was completed in part utilizing [employer] Direct Speech Voice Recognition Software. Randomword insertions, pronoun errors, and incomplete sentences are an occasional consequence of this system due to software limitations, and ambient noise. Any questions or concerns about the content, text, or information contained within the body of this dictation should be directly addressed to the provider for clarification. documented in this encounter Plan of Treatment Upcoming Encounters Date Type Department Care Team (Late st Contact Info) Description 05/27/2024 3:30 PM EDT Telemedicine Urology Samy Bhatt [address] [place] [address] Vinay Sexton MD [address] [place] [address] 06/20/2024 10:00 AM EST Laboratory Laboratory, [place] [address] [place] [facility] [place] [phone] [place], Laboratory [address] [place] [address] 06/27/2024 2:30 PM EST Office Visit Hematology/Oncology [facility] [address] [place] [address] Korin Fisher CRNP [address] [place] [address] 10/17/2024 10:30 AM EDT Office Visit Cardiology, [facility] [address] [facility] [place] [address] Dmitri Greenfield DO [address] [facility] [place] [address] 03/21/2025 11:45 AM EDT Telemedicine Urology, [facility] [address] [facility] [place] [address] Vinay Sexton MD [address] [place] [place] [phone] Scheduled Orders Name Type Priority Associated Diagnoses Orde r Schedule BASIC METABOLIC PANEL Lab Routine Systolic heart failure, unspecified HF chronicity (HCC) Hyponatremia Expected: 05/31/2024, Expires: 05/24/2025 Scheduled Procedures Name Priority Associated Diagnoses Date/Ti [...] Additional history exists CKD HGB USE SMARTSET 48605 05/18/202505/18, 03/21/2024, 03/21/2024, Additional history exists CKD PHOS USE SMARTSET 91767 05/18/2025 05/18/2024 DTap/Tdap Vaccines (3 - Td [...] D LEVEL ONCE IN A LIFETIME-USE SMARTSET# [id number] Completed 03/21/2024, 12/25/2023, 05/27/2021, Additional history exists [...] as of this encounter Visit Diagnoses Diagnosis Systolic heart failure, unspecified HF chronicity (HCC)- Primary Hyponatremia Hyposmolality and/or hyponatremia Stage 3a chronic kidney disease (HCC) documented in this encounter Care Teams Optical Manufacturing Technician Relationship Specialty Start Date End Date Rhianna Huitron DO [address] [facility] [id number] PCP - General Family Medicine 07/11/19 documented as of this encounter
--- OUTSIDE RECORDS SUMMARY | 2024-05-31 20:48 | External Medical Summary | Summary of Care ---
Author Name Unknown Organization [facility] Address [address] [facility] [address] Phone [phone] Care Team Providers Care Air Carrier Maintenance Inspector Name Role Phone Rhianna Huitron DO Primary Care Provider Encounter Details Date Type Department Care Team (Late st Contact Info) Description 05/19/2024 Orders Only [facility] [address] [place] [address] Rhianna Huitron DO [address] [place] [address] Allergies Active Allergy Reactions Criticality [...] glucose 12/16/2005 Macular degeneration 12/02/1999 DISC DIS [id number] documented as of this encounter (statuses as [...] colonoscopy in 5 years ARTHRITIS,RHEUMATOID 07/07/2006 016 [id number] 07/07/200611/01 Overview: Renamed Per Clinical Trials Billing Project. Pt is a participant in the [facility] (Consortium of Rheumatology Researchers of [facility]) national data collection study. For further information please call Dr Hari Clark or Julia White, RN, CCRC at [phone] [facility] RESEARCH OTHER*[id number] 07/07/2006 01/28/2010 Overview: Renamed Per Clinical Trials Billing Project. Pt is a participant in the [facility] (Consortium of Rheumatology Researchers of [facility]) national data collection study. For further information please call Dr Hari Clark or Julia White, RN, CCRC at [phone] Hearing loss 12/02/1999 03/29/2013 documented as of [...] Description 05/19/2024 10:20 AM EDT Telemedicine Rheumatology [facility] [address] [facility] [place] [address] Mendel Wilson MD [address] [place] [address] 05/27/2024 3:30 PM EDT Telemedicine Urology Samy Bhatt [address] [place] [address] Vinay Sexton MD [address] [place] [address] 06/20/2024 10:00 AM EST Laboratory Laboratory, [place] [address] [place] [phone] [place], [facility] [address] [place] [address] 06/27/2024 2:30 PM EST Office Visit Hematology/Oncology [facility] [address] [facility] [phone] Korin Fisher CRNP [address] [facility] [place] [address] 10/17/2024 10:30 AM EDT Office Visit Cardiology, [facility] [address] [facility] [place] [address] Dmitri Greenfield, [address] [facility] [place] [address] 03/21/2025 11:45 AM EDT Telemedicine Urology, [facility] [address] [place] [address] Vinay Sexton MD [address] [place] [address] Scheduled Procedures Name Priority Associated Diagnoses Date/Ti [...] 04/17/2020, Additional history exists HbA1c 11/05/2024 11/06/2023, /, 12/24/2022, Additional history exists GFR 11/16/2024 05/18/2024, 03/03, 12/25/2023, Additional history exists CKD HGB USE SMARTSET 34912 05/18/202505/18, 03/21/2024, 03/21/2024, Additional history exists CKD PHOS USE SMARTSET 17249 05/18/2025 05/18/2024 DTap/Tdap Vaccines (3 - Td [...] D LEVEL ONCE IN A LIFETIME-USE SMARTSET# [id number] Completed 03/21/2024, 12/25/2023, 05/27/2021, Additional history exists [...] Procedure Name Priority Date/Time Associated Diagnosis Comments CHEMISTRY-OUTSIDE Routine 05/18/2024 documented in this encounter Results * (ABNORMAL) CHEMISTRY-OUTSIDE (05/18/2024) Not all results display below - see scan for full detail OUTSIDE LAB (SEE SCANNED REPORT) Comment:SCAN INCLUDES - BMP, PHOS, MG, CBC CREATININE 0.88 0.6 - 1.4 MG/DL OUTSIDE LAB (SEE SCANNED REPORT) EGFR 88.01 OUTSIDE LA B (SEE SCANNED REPORT) POTASSIUM 4.0 3.5 - 5.1 MMOL/L OUTSIDE LAB (SEE SCANNED REPORT) GLUCOSE 132(A) 70 - 99 MG/DL OUTSIDE LAB (SEE SCANNED REPORT) HOURS FASTING OUTSID E LAB (SEE SCANNED REPORT) TRIGLYCERIDES-OUT SIDE LAB OUTSIDE LAB (SEE SCANNED REPORT) CHOLESTEROL-OUTSI DE LAB OUTSIDE LAB (SEE SCANNED REPORT) HDL-OUTSIDE LAB OUTS TREMAINE LAB (SEE SCANNED REPORT) CHOL/HDL RATIO-OUTSIDE LAB OUTSIDE LA B (SEE SCANNED REPORT) LDL (CALCULATED)-OUTS TREMAINE LAB OUTSIDE LAB (SEE SCANNED REPORT) LDL (DIRECT MEASURE)-OUTSIDE LAB OUTSIDE LAB (SEE SCANNED REPORT) HEMOGLOBIN, [id number] LAB OUTSIDE LAB (SEE SCANNED REPORT) PHOSPHORUS-OUTSID E LAB 3.0 2.5 - 4.9 MG/DL OUTSIDE LAB (SEE SCANNED REPORT) PTH-OUTSIDE LAB OUTS TREMAINE LAB (SEE SCANNED REPORT) MICROALBUMIN RATIO-OUTSIDE LAB OUTSIDE LA B (SEE SCANNED REPORT) PROTEIN, UA-OUTSIDE LAB OUTSIDE LAB (SEE SCANNED REPORT) HGB 8.4(A) 14.0 - 18.0 G/DL OUTSIDE LAB (SEE SCANNED REPORT) 05/18/2024 Rhianna Huitron DO LABORATORY OUTSIDE LAB (SEE SCANNED REPORT) documented in this encounter Care Teams Air Carrier Maintenance Inspector Relationship Specialty Start Date End Date Rhianna Huitron DO [address] [place] [address] PCP - General Family Medicine 07/11/19 documented as of this encounter
--- OUTSIDE RECORDS SUMMARY | 2024-05-31 20:48 | External Medical Summary | Summary of Care ---
Author Name Unknown Organization [facility] Address [address] [facility] [place] [address] Phone [phone] Care Team Providers Care Oven Baker Name Role Phone Rhianna Huitron DO Primary Care Provider [phone] Reason for Visit * Reason Comments Outpatient Testing Encounter Details Date Type Department Care Team (Late st Contact Info) Description 05/30/2024 4:00 PM EDT Laboratory Laboratory, [facility] [address] [place] [phone] [facility] [address] [place] [address] Systolic heart failure, unspecified HF chronicity (HCC); Hyponatremia; Prostate cancer (HCC) Allergies Active Allergy Reactions [...] glucose 12/16/2005 Macular degeneration 12/02/1999 DISC DIS [id number] documented as of this encounter (statuses as [...] colonoscopy in 5 years ARTHRITIS,RHEUMATOID 07/07/2006 016 [id number] 07/07/200611/01 Overview: Renamed Per Clinical Trials Billing Project. Pt is a participant in the [facility] (Consortium of Rheumatology Researchers of [place]) national data collection study. For further information please call Dr Hari Clark or Julia White, RN, CCRC at [phone] [facility] RESEARCH OTHER*[id number] 07/07/2006 01/28/2010 Overview: Renamed Per Clinical Trials Billing Project. Pt is a participant in the [employer] (Consortium of Rheumatology Researchers of [facility]) national data collection study. For further information please call Dr Hari Clark or Julia White, RN, CCRC at [phone] Hearing loss 12/02/1999 03/29/2013 documented as of this encounter (statuses as of 05/30/2024) Immunizations Name Administration Dates Next Due COVID-19 mRNA, LNP-s, No Pre serve, 2-Dose Series ([employer]) 06/14/2021,10/10/2020,09/12/2020 COVID-19, LNP-s, No Preserve , Yousuf-sucrose, Ages 12+ (Pfizer) 12/25/2021 Covid-19, Mrna, Lnp-s, Pf, B ivalent, 30 Mcg, IM, 12 yrs and above ([employer]) 05/23/2022 Pneumococcal Conjugate Vacc, 13 Valent (Prevnar) [...] EDT Laboratory Lab [facility] [address] [facility] [place] [address] [facility], [facility] [address] [facility] [place] [address] 06/20/2024 10:00 AM EST Laboratory Laboratory, [place] [address] [place] [facility] [phone] [place], [facility] [address] [place] [address] 06/27/2024 2:30 PM EST Office Visit Hematology/Oncology [facility] [address] [place] [phone] Korin Fisher CRNP [address] [place] [address] 06/28/2024 2:15 PM EST Procedure Only Urology, [facility] [address] [facility] [place] [address] Vinay Sexton MD [address] [place] [address] 09/08/2024 3:40 PM EST Office Visit Nephrology, [facility] [address] [place] [address] Bryson Ellis MD [address] [place] [address] 10/17/2024 10:30 AM EDT Office Visit Cardiology, [facility] [address] [facility] [place] [address] Dmitri Greenfield DO [address] [facility] [place] [address] 03/21/2025 11:45 AM EDT Telemedicine Urology, [facility] [address] [facility] [place] [address] Vinay Sexton MD [address] [place] [phone] Pending Results Name Type Priority Associated Diagnoses Date /Time BASIC METABOLIC PANEL Lab Routine Systolic heart failure, unspecified HF chronicity (HCC) Hyponatremia 05/30/2024 3:59 PM EDT PSA Lab Routine Prostate cancer (HCC) 05/30/2024 3:59 PM EDT Scheduled Procedures Name Priority Associated [...] Additional history exists CKD HGB USE SMARTSET 23061 05/18/202505/18, 03/21/2024, 03/21/2024, Additional history exists CKD PHOS USE SMARTSET 72677 05/18/2025 05/18/2024 DTap/Tdap Vaccines (3 - Td [...] D LEVEL ONCE IN A LIFETIME-USE SMARTSET# 39491 Completed 03/21/2024, 12/25/2023, 05/27/2021, Additional history exists [...] Diagnosis Systolic heart failure, unspecified HF chronicity (HCC) Hyponatremia Hyposmolality and/or hyponatremia Prostate cancer (HCC) Malignant neoplasm of prostate documented in this encounter Care Teams Oven Baker Relationship Specialty Start Date End Date Rhianna Huitron DO [address] [place] [address] PCP - General Family Medicine 07/11/19 documented as of this encounter
--- OUTSIDE RECORDS SUMMARY | 2024-05-31 20:48 | External Medical Summary | Summary of Care ---
Author Name Unknown Organization [facility] Address [address] [place] [facility] [address] Phone [phone] Care Team Providers Care Rivet Heater Name Role Phone Kat Huitron DO Primary Care Provider Encounter Details Date Type Department Care Team (Late st Contact Info) Description 05/30/2024 2:15 PM EDT Office Visit Urology, [facility] [address] [facility] [place] [address] Vinay Sexton MD [address] [place] [address] Prostate cancer (HCC)*; BPH with obstruction/lower urinary [...] 24 Hour (toPROL XL)Indications:NSVT (nonsustained ventricular tachycardia) ([facility]),Non-ischemic cardiomyopathy (HCC),Chronic HFrEF (heart failure with reduced [...] glucose 12/16/2005 Macular degeneration 12/02/1999 DISC DIS TOA-IZE-UDUVAG documented as of this encounter (statuses as [...] colonoscopy in 5 years ARTHRITIS,RHEUMATOID 07/07/2006 016 [id number] 07/07/200611/01 Overview: Renamed Per Clinical Trials Billing Project. Pt is a participant in the [facility] (Consortium of Rheumatology Researchers of [place]) national data collection study. For further information please call Dr Hari Clark or Julia White, RN, CCRC at [phone] [facility] RESEARCH OTHER*[id number] 07/07/2006 01/28/2010 Overview: Renamed Per Clinical Trials Billing Project. Pt is a participant in the [facility] (Consortium of Rheumatology Researchers of [facility]) national data collection study. For further information please call Dr Hari Clark or Julia White, RN, CCRC at [phone] Hearing loss 12/02/1999 03/29/2013 documented as of this encounter (statuses as of 05/30/2024) Immunizations Name Administration Dates Next Due COVID-19 mRNA, LNP-s, No Pre serve, 2-Dose Series ([employer]) 06/14/2021,10/10/2020,09/12/2020 COVID-19, LNP-s, No Preserve , Yousuf-sucrose, [...] Sexton MD - 05/30/2024 2:15 PM EDT [id number] PCP: KAT HUITRON [address] [place] [address] [id number] Markus Wharton is a 79 year old [...] performed by Teddy Rizvi MD at ENDOSCOPY [facility] COLONOSCOPY, DIAGNOSTIC (RECTUM) 01/21/2019 diverticulosis, repeat 5 yrs/COLONOSCOPY FLEXIBLE PROXIMAL DIAGNOSTIC performed by Teddy Rizvi MD at ENDOSCOPY [facility] REMOVE TONSILS & ADENOIDS, AGE 12+ 1980 [...] Problem List Diagnosis Macular degeneration DISC DIS [id number] Impaired fasting glucose ADVANCE DIRECTIVE INFORMATION Encounter [...] for the procedure. A well lubricated 16 Mongolian flexible cystoscope was introduced through the meatus [...] was completed the cystoscope was removed. Eighteen Mongolian coude Ingram catheter was able to be placed without the need for a guidewire and 10 mL of sterile water were placed in the balloon. Bladder was irrigated with sterile saline until clot in his resolved. After this was complete, catheter was placed togravity drainage. [employer] Police Lieutenant was present for entire procedure. Impression/Plan: 79-year-old [...] 7:00 AM EDT Laboratory Lab Mobile Phlebotomy [employer] [address] [facility] [place] [address] [facility], Gml Mobile Home Draw [address] [facility] [place] [address] 06/20/2024 10:00 AM EST Laboratory Laboratory, [place] [address] [place] [facility] [place] [phone] [place], [facility] [address] [place] [facility] [address] 06/27/2024 2:30 PM EST Office Visit Hematology/Oncology [facility] [address] [facility] [place] [phone] Korin Fisher CRNP [address] [place] [address] 06/28/2024 2:15 PM EST Procedure Only Urology, [facility] [address] [facility] [place] [address] Vinay Sexton MD [address] [place] [address] 09/08/2024 3:40 PM EST Office Visit Nephrology, [facility] [address] [place] [address] Bryson Ellis MD [address] [place] [address] 10/17/2024 10:30 AM EDT Office Visit Cardiology, [facility] 132 [facility] [place] [address] Dmitri Greenfield DO 132 [facility] [place] [address] 03/21/2025 11:45 AM EDT Telemedicine Urology, [facility] [address] [place] [address] Vinay Sexton MD [address] [place] [address] [...] Additional history exists CKD HGB USE SMARTSET 56303 05/18/202505/18, 03/21/2024, 03/21/2024, Additional history exists CKD PHOS USE SMARTSET 31771 05/18/2025 05/18/2024 DTap/Tdap Vaccines (3 - Td [...] D LEVEL ONCE IN A LIFETIME-USE SMARTSET# 36723 Completed 03/21/2024, 12/25/2023, 05/27/2021, Additional history exists [...] Right documented in this encounter Care Teams Rivet Heater Relationship Specialty Start Date End Date Kat Huitron DO [address] [place] [address] PCP - General Family Medicine 07/11/19 documented as of this encounter
--- OUTSIDE RECORDS SUMMARY | 2024-05-31 20:48 | External Medical Summary | Summary of Care ---
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 Pt is a participant in the [facility] (Consortium of Rheumatology Researchers [place]) national data collection study. For further information please call Dr Hari Clark or Julia White, RN, CCRC at [phone] [facility] RESEARCH OTHER*[id number] 07/07/2006 01/28/2010 Overview: Renamed Per Clinical Trials Billing Project. Pt is a participant in the [facility] ([facility] of Rheumatology Researchers of [facility]) national data collection study. For further information please call Dr Hari Clark or Julia White, RN, CCRC at [phone] Hearing loss 12/02/1999 03/29/2013 documented as of this encounter (statuses as of 05/27/2024) Immunizations Name Administration Dates Next Due COVID-19 mRNA, LNP-s, No Pre serve, 2-Dose Series ([email or web address]) 06/14/2021,10/10/2020,09/12/2020 COVID-19, LNP-s, No Preserve , Yousuf-sucrose, [...] Progress Notes * Vinay Sexton MD - 05/27/2024 3:34 PM EDT [id number] PCP: [place] [address] [phone] Patient location: HOME. I was in a hospital or clinic location. After connecting through Tripwireo,patient was verified with two unique identifiers. Patient (or authorized legal sales representative aircraft) was then informed that this was a Telemedicine visit and being conducted confidentially over secure lines. Methods to assure confidentiality were taken. Patient acknowledged consent and understanding of pr ivacy and security of the Telemedicine visit. The patient agreed to participate. Markus Wharton is a 79 year old male, who presents for f/u of his CAP. He notes he has had a catheter in place since hospitalization in March. His numerous canceled visits are noted. He is a month overdue for Lupron. He used "[employer]" to transport him to his hospitalization. Daughter is present in house, joins call on request. BPH: Patient is being seen for BPH [...] performed by Teddy Rizvi MD at ENDOSCOPY [facility] COLONOSCOPY, DIAGNOSTIC (RECTUM) 01/21/2019 diverticulosis, repeat 5 yrs/COLONOSCOPY FLEXIBLE PROXIMAL DIAGNOSTIC performed by Teddy Rizvi MD at ENDOSCOPY [facility] REMOVE TONSILS & ADENOIDS, AGE 12+ 1980 Tonsillectomy/Adenoids,12+ Y/O Past Medical History: Diagnosis Date Arthritis, rheumatoid (HCC) Benign neoplasm of colon 05/10/07 adenomatous repeat colonoscopy in 5 years Degeneration of lumbosacral intervertebral disc Elevated blood pressure, situational Fuchs' corneal dystrophy 10/19/2018 Impaired fasting glucose Macular degeneration Morbid (severe) obesity due to excess calories ([facility]) 08/19/2017 Patient Active Problem List Diagnosis Macular degeneration DISC DIS IBF-[id number] Impaired fasting glucose ADVANCE DIRECTIVE INFORMATION Encounter [...] failure (HCC) Chronic kidney disease, stage 3a ([facility]) S/P angioplasty with stent Constitutional: (+) weakness Eyes: (+) decreased vision ENT: (-) stridor Male : see HPI Musculoskeletal: (+) muscle weakness Neurology: (+) loss of balance and (+) generalized weakness Psychiatry: (-) hallucinations Physical Exam Constitutional: General: He is not in acute distress. Appearance: He is not toxic-appearing. HENT: Head: Normocephalic and atraumatic. Right Ear: External ear normal. Left Ear: External ear normal. Nose: Nose normal. Mouth/Throat: Mouth: Mucous membranes are moist. Eyes: Extraocular Movements: Extraocular movements intact. Pulmonary: Effort: No respiratory distress. Abdominal: General: There is no distension. Skin: Coloration: Skin is not pale. Neurological: Mental Status: He is oriented to person, place, and time. Psychiatric: Behavior: Behavior normal. Thought Content: Thought content normal. Impression/Plan: 79 yo male with retention, high grade prostate cancer, He notes previous home nursing, since discontinued. Findings reviewed with the patient. The importance of prompt provision of the patient's androgen deprivation and exchange of his Ingram catheter to avoid acute malfunction and difficulties. Possibilities for transportation are reviewed. Will see the patient back in office ideally on Thursday for Ingram catheter exchange, injection of Lupron, lab work including PSA and renal function. They note they will have a ramp installed soon, hopefully will help with transportation. Patient is strongly encouraged to contact his clinical providers if he has any difficulties with his logistics. Above content is personally reviewed. Patient vocalizes good understanding of the treatment plan. Vinay Sexton MD 3:34 PM 05/27/2024 documented in this encounter Plan of Treatment Upcoming Encounters Date Type Department Care Team (Late st Contact Info) Description 05/30/2024 2:15 PM EDT Office Visit Urology, [facility] [address] [facility] [place] [address] Vinay Sexton MD [address] [facility] [place] [address] 05/31/2024 7:00 AM EDT Laboratory Lab Mobile Phlebotomy [facility] [address] [place] [address] Mvmg, Gml Mobile Home Draw [address] [place] [address] 06/20/2024 10:00 AM EST Laboratory Laboratory, [place] [address] [facility] [place] [phone] [place] [address] [facility] [place] [address] 06/27/2024 2:30 PM EST Office Visit Hematology/Oncology [facility] [address] [place] [address] Korin Fisher CRNP [address] [place] [address] 09/08/2024 3:40 PM EST Office Visit Nephrology, [facility] 400 [place] [address] Bryson Ellis MD 400 [place] [address] 10/17/2024 10:30 AM EDT Office Visit Cardiology, [facility] 132 [facility] [place] [address] Dmitri Greenfield DO 132 [facility] [place] [address] 03/21/2025 11:45 AM EDT Telemedicine Urology, [facility] [address] [facility] [place] [address] Vinay Sexton MD 27 [place] [address] Scheduled Procedures Name Priority Associated Diagnoses Date/Ti [...] Additional history exists CKD HGB USE SMARTSET 22022 05/18/202505/18, 03/21/2024, 03/21/2024, Additional history exists CKD PHOS USE SMARTSET 77323 05/18/2025 05/18/2024 DTap/Tdap Vaccines (3 - Td [...] D LEVEL ONCE IN A LIFETIME-USE SMARTSET# 19521 Completed 03/21/2024, 12/25/2023, 05/27/2021, Additional history exists [...] and other lower urinary tract symptoms (LUTS) History of UTI Personal history of urinary (tract) infection 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
--- OUTSIDE RECORDS SUMMARY | 2024-05-31 20:48 | External Medical Summary | Summary of Care ---
Author Name Unknown Organization [facility] Address [address] [facility] [address] Phone [phone] Care Team Providers Care Office Nurse Practitioner Name Role Phone Rhianna Huitron DO Primary Care Provider Reason for Visit * Reason Onset Date Comments Forms Request 05/25/2024 [facility] Encounter Details Date Type Department Care Team (Late st Contact Info) Description 05/25/2024 Telephone [facility] [address] [place] [address] Rhianna Huitron DO [address] [place] [address] Forms Request ([facility]) Allergies Active Allergy Reactions Criticality Noted Date [...] 24 Hour (toPROL XL)Indications:NSVT (nonsustained ventricular tachycardia) ([facility]),Non-ischemic cardiomyopathy (HCC),Chronic HFrEF (heart failure with reduced ejection fraction) ([facility]) Take 0.5 Tablets by mouth in [...] glucose 12/16/2005 Macular degeneration 12/02/1999 DISC DIS [id number] documented as of this encounter (statuses as [...] colonoscopy in 5 years ARTHRITIS,RHEUMATOID 07/07/2006 016 [id number] 07/07/200611/01 Overview: Renamed Per Clinical Trials Billing Project. Pt is a participant in the [facility] (Consortium of Rheumatology Researchers [place]) national data collection study. For further information please call Dr Hari Clark or Julia White, RN, CCRC at [phone] [facility] RESEARCH OTHER*[id number] 07/07/2006 01/28/2010 Overview: Renamed Per Clinical Trials Billing Project. Pt is a participant in the [facility] (Consortium of Rheumatology Researchers of [place] [facility]) national data collection study. For further information please call Dr Hari Clark or Julia White, RN, CCRC at [phone] Hearing loss 12/02/1999 03/29/2013 documented as of this encounter (statuses as of 05/25/2024) Immunizations Name Administration Dates Next Due COVID-19 mRNA, LNP-s, No Pre serve, 2-Dose Series (Actual Experience) 06/14/2021,10/10/2020,09/12/2020 COVID-19, LNP-s, No Preserve , Yousuf-sucrose, Ages 12+ (Pfizer) 12/25/2021 Covid-19, Mrna, Lnp-s, Pf, B ivalent, 30 Mcg, IM, 12 yrs and above (Actual Experience) 05/23/2022 Pneumococcal Conjugate Vacc, 13 Valent (Prevnar) [...] Encounter - Luba Mondragon LPN - 05/25/2024 2:45 PM EDT Received Fax for BFPROVIDERS: Dr. Rhianna Huitron PT PLAN OF CARE/EVALUATION received from [facility] home healthcare [facility] and FAXED documented in this encounter Plan of Treatment Upcoming Encounters Date Type Department Care Team (Late st Contact Info) Description 05/27/2024 3:30 PM EDT Telemedicine Urology Samy Bhatt [address] [facility] [address] [place] [address] Vinay Sexton MD [address] [place] [address] 06/20/2024 10:00 AM EST Laboratory Laboratory, [place] [address] [place] [address] [facility] [address] [place] [address] 06/27/2024 2:30 PM EST Office Visit Hematology/Oncology [facility] [address] [place] [address] Korin Fisher CRNP 400 [place] [address] 09/08/2024 3:40 PM EST Office Visit Nephrology, [facility] 400 [place] [address] Bryson Ellis MD [address] [place] [address] 10/17/2024 10:30 AM EDT Office Visit Cardiology, [facility] 132 [facility] [place] [address] Dmitri Greenfield, 132 [facility] [place] [address] 03/21/2025 11:45 AM EDT Telemedicine Urology, [facility] [address] [place] [address] Vinay Sexton MD [address] [place] [address] Scheduled Procedures Name Priority Associated Diagnoses Date/Ti [...] Additional history exists CKD HGB USE SMARTSET 78570 05/18/202505/18, 03/21/2024, 03/21/2024, Additional history exists CKD PHOS USE SMARTSET 81104 05/18/2025 05/18/2024 DTap/Tdap Vaccines (3 - Td [...] D LEVEL ONCE IN A LIFETIME-USE SMARTSET# 44742 Completed 03/21/2024, 12/25/2023, 05/27/2021, Additional history exists [...] filedocumented as of this encounter Care Teams Office Nurse Practitioner Relationship Specialty Start Date End Date Rhianna Huitron DO [address] [place] [address] PCP - General Family Medicine 07/11/19 documented as of this encounter
--- OUTSIDE RECORDS SUMMARY | 2024-05-31 20:49 | External Medical Summary | Summary of Care ---
Author Name Unknown Organization [facility] Address [address] [place] [address] Phone [phone] Care Team Providers Care Extruder Operator Multiple Name Role Phone Rhianna Huitron DO Primary Care Provider [phone] Reason for Visit * Reason Onset Date Comments Urinary Tract Infection Symptoms 05/17/2024 Encounter Details Date Type Department Care Team (Late st Contact Info) Description 05/17/2024 Telephone [facility] [address] [place] [address] Rhianna Huitron DO [address] [place] [address] Urinary Tract Infection Symptoms Allergies [...] glucose 12/16/2005 Macular degeneration 12/02/1999 DISC DIS [id number] documented as of this encounter (statuses as [...] colonoscopy in 5 years ARTHRITIS,RHEUMATOID 07/07/2006 016 [id number] 07/07/200611/01 Overview: Renamed Per Clinical Trials Billing Project. Pt is a participant in the [facility] (Consortium of Rheumatology Researchers of [place]) national data collection study. For further information please call Dr Hari Clark or Julia White, RN, CCRC at [phone] [facility] RESEARCH OTHER*[id number] 07/07/2006 01/28/2010 Overview: Renamed Per Clinical Trials Billing Project. Pt is a participant in the [facility] (Consortium of Rheumatology Researchers of [facility]) national data collection study. For further information please call Dr Hari Clark or Julia White, RN, CCRC at [phone] Hearing loss 12/02/1999 03/29/2013 documented as of this encounter (statuses as of 05/18/2024) Immunizations Name Administration Dates Next Due COVID-19 mRNA, LNP-s, No Pre serve, 2-Dose Series ([employer]) 06/14/2021,10/10/2020,09/12/2020 COVID-19, LNP-s, No Preserve , Yousuf-sucrose, [...] a clean sample. Order placed needs to [facility] home health. * Telephone Encounter - Marah Hung LPN - 05/17/2024 2:16 PM EDT Patient had urinalysis on 05/11/2024 along with a culture. Would you like additional testing completed. * Telephone Encounter - Sarina Gupta OSA - 05/17/2024 12:28 PM EDT Established female patient age 18+ calling with UTI symptoms of (Call Details not required): burning when urinating Please call patient back at: [phone] Any additional information to pass onto the RN: n/a Note: - Route UTI concerns for established female patient age 18+ to [facility] NURSE TRIAGE POOL [[id number]] - For males of any age, females younger than 18 years old, and non-established females 18+, schedule an appointment. If unable to schedule, use [employer] smartphrase and include CALL DETAILS. Route TE to Clinic Nurse Pool. documented in this encounter Plan of Treatment Upcoming Encounters Date Type Department Care Team (Late st Contact Info) Description 05/19/2024 10:20 AM EDT Telemedicine Rheumatology [place] [id number] [facility] [place] [address] Mendel Wilson MD [facility] [place] [address] 05/27/2024 3:30 PM EDT Telemedicine Urology Samy Bhatt [address] [facility] [address] [place] [address] Vinay Sexton MD [address] [place] [address] 06/20/2024 10:00 AM EST Laboratory Laboratory, [place] [address] [place] [address] [place], Laboratory [address] [place] [address] 06/27/2024 2:30 PM EST Office Visit Hematology/Oncology [facility] [address] [place] [address] Korin Fisher CRNP [address] [place] [address] 10/17/2024 10:30 AM EDT Office Visit Cardiology, [facility] 132 [facility] [place] [address] Dmitri Greenfield, 132 [facility] [place] [address] 03/21/2025 11:45 AM EDT Telemedicine Urology, [facility] 132 [facility] [place] [address] Vinay Sexton MD [address] [place] [id number] Scheduled Orders Name Type Priority Associated Diagnoses Orde r Schedule URINALYSIS, REFLEX TO CULTURE (NOT FOR NEUTROPENIC PATIENTS) Lab Routine Urinary retention Expected: 05/19/2024, Expires: 11/04/2024 Scheduled Procedures Name Priority Associated Diagnoses Date/Ti me COLONOSCOPY FLEXIBLE PROXIMAL DIAGNOSTIC Recall Hx of colonic polyps Health Maintenance Due Date Last Done Comments CKD PHOS USE SMARTSET 72397 02/23/1963 Adult Wellness Visit 03/16/2020 03/16/2019 DXA [...] Additional history exists CKD HGB USE SMARTSET 64255 03/21/202503/21, 03/21/2024, 12/25/2023, Additional history exists DTap/Tdap [...] D LEVEL ONCE IN A LIFETIME-USE SMARTSET# 11221 Completed 03/21/2024, 12/25/2023, 05/27/2021, Additional history exists [...] unspecified documented in this encounter Care Teams Extruder Operator Multiple Relationship Specialty Start Date End Date Rhianna Huitron DO [address] [place] [address] PCP - General Family Medicine 07/11/19 documented as of this encounter
[2024-05-31] MEDS: METOPROLOL SUCC 25MG EXT REL TAB PO SCH (21:21)
[2024-05-31] MEDS: MELATONIN 3 MG TAB PO PRN (21:21)
[2024-05-31] MEDS: FLUTICASONE PROPIONATE NA SPR 16 GM BTL SCH (21:43)
--- OUTSIDE RECORDS SUMMARY | 2024-06-01 02:04 | External Medical Summary | Summary of Care ---
Author Name Unknown Organization [facility] Address [address] [place] [address] Phone [phone] Care Team Providers Care Apprenticeship Representative Name Role Phone Rhianna Huitron DO Primary Care Provider [phone] Reason for Referral * Ancillary Services (Within 10 days (routine)) - Authorized Specialty Diagnoses / Procedures Referred By Contac t Referred To Contact Licensed Master Social Worker Diagnoses Hyponatremia Stage 3a chronic kidney disease (HCC) Bryson Ellis MD [address] [place] [address] Referral ID Status Reason Start Date Expiration Date Visits Requested Visits Authorized [id number] Authorized Ancillary Services Required 4 [phone] [...] on the next service day for the [facility] Home Phlebotomy does not service every geographical location on a daily basis. Contact [facility] Client Services at to find out service days for a specific location. Medical Laboratory [facility] Patient Name: Markus Wharton : 1945 Sex: male Address [address] [place] [address] Provider: @REF@? Rhianna Huitron, DO? Diagnosis: (E87.1) Hyponatremia (primary encounter diagnosis) (N18.31) Stage 3a chronic kidney disease (HCC) Tests Requested BMP - once Reason for Visit * Reason Onset Date Comments Outpatient Testing 05/27/2024 Encounter Details Date Type Department Care Team (Late st Contact Info) Description 05/27/2024 Telephone Nephrology, [address] [address] Bryson Ellis MD [address] [place] [address] Outpatient Testing Allergies Active Allergy Reactions [...] THE MORNING 90 Tablet 3 4 Active Tee Ricardo In Vitro Strip (Glucose [...] at bedtime. 4 Active Metoprolol Succinate ER 50 MG [...] Prediabetes 11/08/2018 Overview: Per Prediabetes protocol #1 Eden' corneal dystrophy 10/19/2018 History of colon polyps [...] glucose 12/16/2005 Macular degeneration 12/02/1999 DISC DIS [id number] documented as of this encounter (statuses as [...] colonoscopy in 5 years ARTHRITIS,RHEUMATOID 07/07/2006 016 [id number] 07/07/200611/01 Overview: Renamed Per Clinical Trials Billing Project. Pt is a participant in the [employer] ([employer] [place]) national data collection study. For further information please call Dr Hari Clark or Julia White, RN, CCRC at [phone] [facility] OTHER*[id number] 07/07/2006 01/28/2010 Overview: Renamed Per Clinical Trials Billing Project. Pt is a participant in the [employer] ([employer] [place]) national data collection study. For further information please call Dr Hari Clark or Jluia White, RN, CCRC at [phone] Hearing loss 12/02/1999 03/29/2013 documented as of [...] encounter Miscellaneous Notes * Telephone Encounter - Claudia Jensen OSA - 05/31/2024 12:55 PM EDT Received call from pt, he wanted to let the office know that he is going to go to the ER. Thank You, Abby * Telephone Encounter - Ruma Kay LPN - 05/27/2024 12:08 PM EDT Call to pt who no longer has [facility] homecare. Pt was d/c yesterday. Call to [...] he gets all his lab work by [facility] home nurses. Please inform them of this. I have also instructed him to measure his blood pressure over the next 1 week. Please contact him for blood pressure readings next week(about the time he gets his BMP) documented in this encounter Plan of Treatment Upcoming Encounters Date Type Department Care Team (Late st Contact Info) Description 06/20/2024 10:00 AM EST Laboratory Laboratory, [address] [id number] [place] [address] [place] [address] 06/27/2024 2:30 PM EST Office Visit [facility]ematology/[facility] [address] [facility] [phone] Korin Fisher CRNP [address] [facility] [place] [address] 06/28/2024 2:15 PM EST Procedure Only Urology, [facility] [address] [facility] [place] [address] Vinay Sexton MD [address] [place] [phone] 09/08/2024 3:40 PM EST Office Visit Nephrology, [facility] [address] [facility] [place] [address] Bryson Ellis MD [address] [facility] [place] [address] 10/17/2024 10:30 AM EDT Office Visit Cardiology, [facility] [place] [address] Dmitri Greenfield, [address] [facility] [place] [address] 03/21/2025 11:45 AM EDT Telemedicine Urology, [facility] [address] [place] [address] Vinay Sexton MD [address] [facility] [place] [address] Scheduled Procedures Name Priority Associated Diagnoses Date/Ti [...] 11/06/2023, 06/04, 12/24/2022, Additional history exists GFR 11/29/2024 05/31/2024, 05/04, 05/18/2024, Additional history exists CKD PHOS USE SMARTSET 31374 05/18/2025 05/18/2024 CKD HGB USE SMARTSET 32796 05/31/202505/31, 05/18/2024, 03/21/2024, Additional history exists DTap/Tdap Vaccines (3 - [...] D LEVEL ONCE IN A LIFETIME-USE SMARTSET# [id number] Completed 03/21/2024, 12/25/2023, 05/27/2021, Additional history exists [...] (HCC) documented in this encounter Care Teams Apprenticeship Representative Relationship Specialty Start Date End Date Rhianna Huitron DO [address] [place] [address] PCP - General Family Medicine 07/11/19 documented as of this encounter
[2024-06-01] MEDS: cefTRIAXone SODIUM 2,000 MG/50 ML BAG IV SCH (03:20)
[2024-06-01 07:03] LABS: Calcium 8.3 mg/dl (8.6-10.3); Magnesium 1.9 mg/dl (1.7-2.4); Potassium 4.2 mmol/L (3.5-5.1)
[2024-06-01 07:08] LABS: Creatinine Clr Calc Pharmacy 92.2 ml/min
[2024-06-01] MEDS: ROSUVASTATIN CALCIUM 5 MG TAB PO SCH (07:49)
[2024-06-01] MEDS: LOSARTAN POTASSIUM 25 MG TAB PO SCH (07:50)
[2024-06-01] MEDS: ASPIRIN 81 MG ECTAB PO SCH (07:50)
[2024-06-01] MEDS: CLOPIDOGREL BISULFATE 75 MG TAB PO SCH (07:50)
[2024-06-01] MEDS: TAMSULOSIN HCL 0.4 MG CAP PO SCH (07:50)
[2024-06-01] MEDS: FOLIC ACID 1 MG TAB PO SCH (07:51)
[2024-06-01] MEDS ORDERED: FUROSEMIDE INJ 20 MG/2 ML VIAL IV ONE (12:21)
--- NOTE | 2024-06-01 12:22 | Nephrology Consultation ---
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 - urine studies on this admission point towards a volume contracted state, this may be in the background of SIADH. - sodium has improved to 126 with a single dose of furosemide 20 mg and fluid restriction. - would give him a L of normal saline followed by 20 mg of IV Lasix, repeat BMP at around 2:00 p.m. if his sodium has improved, he can be discharged home with 20 mg twice daily Lasix. follow-up with me in 1 weeks time with repeat BMP. (2) Generalized weakness: History of Present Illness Reason for Consultation: Hyponatremia Attending Physician: Regine Aguirre MD History of Present Illness 79-year-old with past medical history as below, who was asked to be reviewed in ER after the labs done on 05/30 showed a sodium of 120. 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 ON review on 05/24, he was asked to restrict his fluid intake to 40-45 oz, however he continue to drink more than the allowance, He denied any other significant symptoms today except weakness. on repeat labs sodium was 123. he was given a single dose of furosemide 20 mg and was fluid restricted to 1.5 L overnight. His latest sodium is 126 -[facility] recently and had the FOleys catheter exchanged 05/30( difficult foleys exchange-- has purulent urine) Past medical history of prediabetes, hyperlipidemia, hypertension, chronic systolic heart failure, history of CAD SP stent, prostate cancer, chronic kidney disease stage 3, degenerative disc disease, osteoporosis, macular degeneration, Fuchs corneal dystrophy, rheumatoid arthritis. Allergies Allergy/AdvReac Type Severity Reaction Status Date / Time pollen extracts Allergy Mild WATERY Verified 03/31/24 17:40 EYES, SNEEZING Sulfa (Sulfonamide Allergy Unknown CAN'T Verified 03/31/24 17:40 Antibiotics) REMEMBER KUN Inhibitors AdvReac Intermediate Cough Verified 03/31/24 17:40 alendronate sodium AdvReac Intermediate MUSCLE & Verified 03/31/24 17:40 [From Fosamax] JOINT PAIN, HEARTBURN, CONSTIPATION misoprostol AdvReac Intermediate Diarrhea Verified 03/31/24 17:40 Uxegbwn-DMY-PlZ Reductase AdvReac Intermediate CONSTIPATION/UPSET Verified 03/31/24 17:40 Inhibitor STOMACH [Mlysejk-Agj-Mzg Reductase Inhibitor] Home Medications Medication Instructions Recorded Confirmed Type folic acid 1 mg tablet 1 mg PO QAM 04/04/20 05/31/24 History methotrexate sodium 2.5 mg tablet 12.5 mg PO WK 04/15/23 05/31/24 History tamsulosin 0.4 mg capsule 0.4 mg PO QAM 04/15/23 05/31/24 History acetaminophen 325 mg tablet 650 mg (2 x 325 mg) PO Q4H PRN 09/03/23 05/31/24 Rx fever or pain #60 tabs aspirin 81 mg tablet,delayed 81 mg PO QAM #30 tabs 09/03/23 05/31/24 Rx release clopidogrel 75 mg tablet 75 mg PO QAM #30 tabs 09/03/23 05/31/24 Rx losartan 25 mg tablet 12.5 mg PO QAM 03/31/24 05/31/24 History metoprolol succinate 50 mg 25 mg PO BID 03/31/24 05/31/24 History tablet,extended release 24 hr rosuvastatin 5 mg tablet 5 mg PO QAM 04/01/24 05/31/24 History albuterol sulfate 90 mcg/actuation 2 puff inhalation Q6H PRN 04/08/24 05/31/24 Rx aerosol inhaler (Ventolin HFA) shortness of breath or wheezing #8.5 grams melatonin 3 mg tablet 6 mg (2 x 3 mg) PO HS PRN sleep 04/08/24 05/31/24 Rx #60 tabs furosemide 20 mg tablet 20 mg PO BID 05/31/24 05/31/24 History urea 15 gram oral powder packet 1 packet PO UD 05/31/24 05/31/24 History (Ure-Na) Patient History Medical History Left ventricular systolic dysfunction Degeneration of lumbosacral intervertebral disc Impaired fasting glucose Macular degeneration Fuchs' corneal dystrophy Frequent UTI Surgical History H/O colonoscopy History of prostate biopsy Family History Father Heart disease Stomach ulcer Mother Rheumatoid arthritis Social History Smoking Status: Former smoker Tobacco Type: Cigarettes Age Started Using Tobacco: 19; packs per day: 1; Second Hand Exposure: No; Do You Dip or Chew Tobacco: No; Tobacco Cessation Education Requested by Patient: No Hx Alcohol Use: No Hx Substance Use: No Preferred Language: Dutch Communication Ability: Effective Visual Impairment: No Limitations Hearing Ability: Normal Electric Tape Slitter Required: No Beliefs That Will Affect Care: None marital status: / Current Living Situation: Family Current Living Situation Comment: Patient llives with Daughter who provides care for him current occupational status: retired current occupation: [employer] and [employer] Other Information That Helps Us Care for You: No Feels Safe at Home: Yes Safety Concerns: Feels Safe At This Time Diet: regular during the past year weight has: remained stable Assistive Devices: Bedside Commode, Lift Chair, Raised Toilet Seat, Walker and Wheelchair Review of Systems 2 Review of Systems: All systems reviewed & are unremarkable except as noted in HPI & below Physical Exam 2 Physical Exam: Comfortable no SOB No Pedal edema Results & Data Vital Signs (Past 12 Hours) Vital Signs Temp Pulse Pulse Resp BP Pulse Ox O2 Del Method 06/01/24 08:08 36.7 C 86 16 132/65 95 Room Air 06/01/24 07:50 Room Air 06/01/24 07:00 83 06/01/24 03:02 36.6 C 79 18 122/68 98 Room Air Laboratory Results 05/31/24 14:05 06/01/24 06:27
[2024-06-01] MEDS: SODIUM CHLORIDE 0.9% 1,000 ML IV SCH (12:56)
--- NOTE | 2024-06-01 14:35 | Hospitalist Progress Note ---
Date of Service June 01, 2024 Assessment & Plan (1) Acute hyponatremia: (2) Generalized weakness: (3) Coronary artery disease: (4) Rheumatoid arthritis: (5) Hypertension: (6) Urinary retention: (7) Prostate cancer: (8) Left ventricular systolic dysfunction: Plan Pt is a 79-year-old male with past medical history significant for prostate cancer treated with lupron and Zytega as well as palliative XRT, prediabetes, hyperlipidemia, hypertension, history of chronic systolic CHF, history of CAD s/p stent, morbid obesity, prostate cancer, chronic kidney disease stage III, degenerative disc disease, osteoporosis, macular degeneration, Fuchs corneal dystrophy, rheumatoid arthritis who presents with concern for increasing weakness at home. Pt was found to be significantly hyponatremic in the ED and was admitted. He followed up with his urologist Dr Sexton on 05/30/24 in office after being lost to follow-up for some months. Pt has had the same indwelling catheter during that time and noted frequent pyuria. Hyponatremia Sodium of 123 on admission Urine osm of 375, serum osm of 259 Pyuria Rigors Pt tachycardic and having rigors No leukocytosis, fevers or tachypnea at this time and so does not meet septic c riteria at this time Previous UA from 05.31 growing strep dysgalactiae With new onset rigors repeat UA ordered and pending Blood Cx x 2 sets ordered and pending CT abd/pelvis ordered and pending Urology consulted, appreciate further recs Pt received one dose of IV rocephin on admission, broadened to IV Cefepime Continue to monitor Tachycardia Atrial Fibrillation Pt with noted increased HR in the setting of rigors Telemetry concerning for possible atrial fibrillation EKG ordered trop ordered and pending Cardiology consulted, appreciate recs Pt takes metoprolol succinate 50mg BID at baseline for a Hx of PVCs IV Lopressor 5mg ordered Appreciate cardiology recs for anticoagulation Anemia, chronic Hgb currently in 8-9 range AM anemia panel Continue home folic acid Continue to monitor Diet: HH, FR 1500ml DVT prophylaxis: Was on lovenox, currently on hold in setting of possible IV heparin use Dispo: PT/OT for further recs once medically stable Admission and Anticipated Discharge Date Admission Date: May 31, 2024 Subjective Patient was seen initially laying in bed. Nursing at the time having difficulty with his Ingram. He noted that he was having very little urine output. Notes he had seen urology the day before and that his urine was very purulent. States that the Ingram had been changed upon admission. Ingram was changed once more by nursing. Later called urgently to bedside by nursing as patient having rigors. Patient states he just feels very cold and cannot stop shaking. Tachycardia noted on telemetry. Afebrile at this time. Denies any trouble breathing. Notes he has been having some lower abdominal and suprapubic pain. Review of Systems Review of Systems: All systems reviewed & are unremarkable except as noted in Subjective Physical Exam Physical Exam: General: Alert, oriented Psych: Appropriate mood and affect Neuro: Difficulty with movements in the med HEENT: NC/AT CV: RRR Resp: Breath sounds clear bilaterally, no increased effort of breathing. Abdomen: Soft, tender in lower abdomen and suprapubic area Extremities: trace edema in lower extremities bilaterally. Results & Data Results & Data Vital Signs (Past 12 Hours) Vital Signs Temp Pulse Pulse Resp BP Pulse Ox O2 Del Method 06/01/24 12:44 36.3 C L 81 16 121/69 95 Room Air 06/01/24 08:08 36.7 C 86 16 132/65 95 Room Air 06/01/24 07:50 Room Air 06/01/24 07:00 83 06/01/24 03:02 36.6 C 79 18 122/68 98 Room Air (5) Hypertension Hypertension type: primary hypertension Qualified Code(s): I10 - Essential (primary) hypertension
[2024-06-01 16:55] LABS: Calcium 8.4 mg/dl (8.6-10.3); Potassium 4.1 mmol/L (3.5-5.1)
[2024-06-01 17:00] LABS: BUN Creatinine Ratio 12.6 (10-20); Creatinine Clr Calc Pharmacy 82.3 ml/min
[2024-06-01] MEDS: OPTIRAY 320 100ml IV ONE (17:34)
[2024-06-01 17:37] LABS: Appearance Urine Turbid (Clear); Bacteria Urine Automated 4+ (None Seen); Bilirubin Urine Negative (Negative); Blood Urine 3+ (Negative); Color Urine Orange; Glucose Urine UA Negative (Negative); Ketones Urine Negative (Negative); Leukocyte Esterase Urine 3+ (Negative); Nitrite Urine Negative (Negative); Protein Urine 3+ (Negative); RBC Urine Automated >20 /hpf (0-2); Specific Gravity Urine 1.008 (1.000-1.030); Urobilinogen Urine Negative (Negative); WBC Urine Automated >50 /hpf (0-5)
[2024-06-01 17:42] LABS: Cast Urine Automated 0-2 /lpf (0-2)
[2024-06-01] MEDS: METOPROLOL TARTRATE 1 MG/ML VIAL IV STA (18:06)
[2024-06-01] MEDS: CEFEPIME 2000MG 2,000 MG/20 ML SYR IV SCH (18:10)
[2024-06-01 18:13] LABS: Hematocrit (blood only) 28.9 % (42.0-52.0); Hemoglobin 9.3 g/dl (14.0-18.0); Mean Corpuscular Hemoglobin 26.1 pg (25.0-34.0); Mean Corpuscular Hgb Conc 32.2 g/dL (32.0-36.0); Mean Platelet Volume 8.6 fL (9.4-12.4); Platelet Count 408 K/uL (130-400); RDW Coefficient of Variation 17.5 % (11.5-14.5); RDW Standard Deviation 50.7 fL (36.4-46.3); Red Blood Count 3.57 M/uL (4.70-6.10); White Blood Count 7.59 K/ul (4.8-10.8)
--- NOTE | 2024-06-01 18:13 | CT Scan Report ---
CT OF THE ABDOMEN AND PELVIS WITH CONTRAST CLINICAL HISTORY: Right wrist. Abdominal and pelvic pain. COMPARISON STUDY: CT of the abdomen and pelvis March 31, 2024. TECHNIQUE: Following IV administration of 94 mL of Optiray, axial images of the abdomen and pelvis we re obtained from the lung bases to the proximal femurs. Images were reviewed in the axial, sagittal, and coronal planes. IV contrast was administered without complication. Automated exposure control wa s utilized for the study. A dose lowering technique was utilized adhering to the principles of ALARA . CT DOSE: 1648.11 mGy.cm FINDINGS: No pneumatosis, free air or portal venous gas is present. The heart is moderately enlarged. There are no hepatic lesions. There is no biliary or pancreatic ductal dilatation. Spleen, adrenal g lands and pancreas are unremarkable. There is no evidence for a bowel obstruction. Moderate amount of stool is present. There is extensive colonic diverticulosis without evidence for acute diverticuliti s. There is no evidence for acute appendicitis. There is trace fluid within the right paracolic gutte r. Moderate bilateral hydroureteronephrosis has developed since CT of March 31, 2024. There are no u rinary calculi. There is no renal fluid collection. The bladder is moderately distended. Bladder wall thickening is noted. There is stranding adjacent to the bladder, prostate and ureters. A small amoun t of gas within the bladder is present. A Ingram balloon is malpositioned. The balloon projects over t he apex of the prostate and a portion of the catheter is within the symphysis pubis. There is widenin g of the symphysis pubis with erosion of the medial bilateral pubic bones. Extraluminal gas is noted with stranding. Hypodense focus along the apex of the prostate is noted. In addition, there is a comp maría elena rim-enhancing fluid and gas containing collection measuring 6.3 x 1.5 cm anterior to the symphysi s pubis. There is enhancement of the adjacent adductor musculature. A few tiny locules of gas along t he medial aspect of the right adductor musculature are noted. IMPRESSION: 1. Findings consistent with an extensive infectious process involving the prostate, seminal vesicles, bladder, symphysis pubis and adjacent soft tissues with multiple locules of extraluminal gas and a 6 .3 x 1.5 cm parasymphyseal collection consistent with an abscess. Associated erosion of the medial bi lateral pubic bones with widening of the symphysis consistent with osteomyelitis. A gas-forming infec tious process cannot be excluded. Urology consultation is recommended. The findings will be called/fa xed to the ordering provider at time of dictation. 2. Malpositioned Ingram. The Ingram balloon projects over the apex of the prostate and a portion of the catheter extends into the symphysis pubis. 3. Distended bladder with moderate bilateral hydroureteronephrosis which has developed since prior CT . ACT 112: Negative or not required by law. Electronically signed by: Anup Garduno M.D. 06/01/2024 6:11 PM
[2024-06-01 18:33] LABS: Basophils # (auto) 0.02 K/uL (0.00-0.20); Basophils % (auto) 0.3 %; Eosinophils # (auto) 0.02 K/uL (0.00-0.50); Eosinophils % (auto) 0.3 %; Immature Granulocytes # (auto) 0.08 K/uL (0.01-0.20); Immature Granulocytes % (auto) 1.1 %; Lymphocytes # (auto) 0.19 K/uL (1.20-3.40); Lymphocytes % (auto) 2.5 %; Monocytes # (auto) 0.04 K/uL (0.11-0.59); Monocytes % (auto) 0.5 %; Neutrophils # (auto) 7.24 K/uL (1.40-6.50); Neutrophils % (auto) 95.3 %; Polychromasia 1+; Toxic Vacuolation 1+
--- NOTE | 2024-06-01 19:01 | Cardiology Consultation ---
Date of Consultation June 01, 2024 Assessment & Plan (1) Tachycardia: (2) Frequent ventricular premature beats: Patient with sepsis syndrome with findings of prostatic abscess. His heart rate had briefly increased significantly in the setting of rigors (without documented elevation in temperature) now improved having received IV metoprolol. Although I cannot completely exclude atrial fibrillation, telemetry at present appears to be consistent with sinus tachycardia and as noted, patient has a p revious history of frequent PVCs. Given concerns of diffuse prostatic abscess and anticipated need for invasive procedure, would hold off on anticoagulation. Agree with oral and IV metoprolol as blood pressure allows for rate control. Just after I had been asked to assist the patient from a cardiac perspective, the CT of the abdomen and pelvis results became available, and efforts are underway to arrange for transfer to tertiary center for higher level of care including onsite infectious disease, urology, and interventional radiology by air transport. Patient with high-sensitivity troponin elevation of 421 PG per mL this evening without any symptoms of volume overload or angina and I think this is likely myocardial strain related to his severe noncardiac illness. Sodium has trended toward improvement having received normal saline and furosemide earlier today, most recent measurement 124 mmol/L. Case discussed with Dr Aguirre. History of Present Illness Attending Physician: Regine Aguirre MD History of Present Illness Mr Quijano is a 79-year-old male seen in cardiology consultation per the request of Dr Aguirre for the evaluation of tachycardia.Patient well-known to the undersigned as I have followed him on an inpatient and outpatient basis with cardiac history as delineated below. The patient has a history of prostate carcinoma and was discharged after admission for acute cystitis on 04/08/2024 with an indwelling Ignram catheter that had since apparently not been changed. At time of outpatient follow-up he was found to have severe hyponatremia with sodium level 120 mmol/L and was referred for hospital level care. He notes generalized weakness. This evening he developed subjective rigors. His heart rate was elevated, transiently as high as 180 bpm. An EKG was performed on 06/01/2024 at 1709 revealing an irregular tachycardic rhythm, possibly atrial fibrillation. The patient has since received 5 mg of IV metoprolol and his tremor has improved and on telemetry he appears to be in a sinus tachycardia with rate in the 120s. Gross hematuria noted in his Ingram catheter. With markedly abnormal urinalysis and urine culture obtained yesterday has yielded Streptococcus dysgalactiae. The patient underwent a CT of the abdomen and pelvis this evening with findings consistent with an extensive infectious process involving the prostate, seminal vesicles, bladder, symphysis pubis, and adjacent soft tissues with multiple locules of extraluminal gas and a 6.3 cm x 1.5 cm parasymphyseal collection consistent with abscess. Ingram catheter was noted to be malpositioned with balloon projecting over the apex of the prostate. Distended bladder and moderate bilateral hydronephrosis noted. Cardiac History: CAD, frequent PVCs, non ischemic cardiomyopathy with initial left ventricular systolic dysfunction out of proportion to the findings of single-vessel coronary heart disease Presented to [facility] via the emergency department in August, with chief complaint of chest discomfort. He was found to have sinus tachycardia with frequent salvos of nonsustained ventricular tachycardia in the range of 3-5 beats in duration. He received IV amiodarone without improvement and also received a lidocaine infusion. EKG revealed subtle ST segment depression limited to lead V3. Coronary angiography was performed by Dr. Alvarenga of interventional cardiology with stenosis of the mid LAD (70 -75% mid LAD stenosis by IVUS evaluation) and mild to moderate nonobstructive disease noted elsewhere. He therefore underwent PCI with placement of a single 3 x 18 mm Xience drug-eluting stent. Ejection fraction at the time of presentation was reduced in the range of 30- 35%. At discharge medications included metoprolol succinate 50 mg twice daily, Entresto 24/26 mg twice daily, aspirin, clopidogrel, and rosuvastatin. Previous treatment with Zytiga was discontinue due to its potential for causing cardiac arrhythmias. He was prescribed a ZOLL LifeVest wearable defibrillator discharge. Repeat echocardiogram performed 3 months later revealed improvement in the ejection fraction and the LifeVest was discontinued. Most recent echocardiogram performed at [facility] 04/01/2024 revealed mild concentric left ventricular hypertrophy with borderline diffuse left ventricular hypokinesis LVEF 50%, grade 1 diastolic dysfunction, mild aortic valve sclerosis without stenosis. Allergies Allergy/AdvReac Type Severity Reaction Status Date / Time pollen extracts Allergy Mild WATERY Verified 03/31/24 17:40 EYES, SNEEZING Sulfa (Sulfonamide Allergy Unknown CAN'T Verified 03/31/24 17:40 Antibiotics) REMEMBER KUN Inhibitors AdvReac Intermediate Cough Verified 03/31/24 17:40 alendronate sodium AdvReac Intermediate MUSCLE & Verified 03/31/24 17:40 [From Fosamax] JOINT PAIN, HEARTBURN, CONSTIPATION misoprostol AdvReac Intermediate Diarrhea Verified 03/31/24 17:40 Lodmstm-FEK-UfT Reductase AdvReac Intermediate CONSTIPATION/UPSET Verified 03/31/24 17:40 Inhibitor STOMACH [Sayqrbo-Cis-Yqk Reductase Inhibitor] Home Medications Medication Instructions Recorded Confirmed Type folic acid 1 mg tablet 1 mg PO QAM 04/04/20 05/31/24 History methotrexate sodium 2.5 mg tablet 12.5 mg PO WK 04/15/23 05/31/24 History tamsulosin 0.4 mg capsule 0.4 mg PO QAM 04/15/23 05/31/24 History acetaminophen 325 mg tablet 650 mg (2 x 325 mg) PO Q4H PRN 09/03/23 05/31/24 Rx fever or pain #60 tabs aspirin 81 mg tablet,delayed 81 mg PO QAM #30 tabs 09/03/23 05/31/24 Rx release clopidogrel 75 mg tablet 75 mg PO QAM #30 tabs 09/03/23 05/31/24 Rx losartan 25 mg tablet 12.5 mg PO QAM 03/31/24 05/31/24 History metoprolol succinate 50 mg 25 mg PO BID 03/31/24 05/31/24 History tablet,extended release 24 hr rosuvastatin 5 mg tablet 5 mg PO QAM 04/01/24 05/31/24 History albuterol sulfate 90 mcg/actuation 2 puff inhalation Q6H PRN 04/08/24 05/31/24 Rx aerosol inhaler (Ventolin HFA) shortness of breath or wheezing #8.5 grams melatonin 3 mg tablet 6 mg (2 x 3 mg) PO HS PRN sleep 04/08/24 05/31/24 Rx #60 tabs furosemide 20 mg tablet 20 mg PO BID 05/31/24 05/31/24 History urea 15 gram oral powder packet 1 packet PO UD 05/31/24 05/31/24 History (Ure-Na) Patient History Medical History Left ventricular systolic dysfunction Degeneration of lumbosacral intervertebral disc Impaired fasting glucose Macular degeneration Fuchs' corneal dystrophy Frequent UTI Surgical History H/O colonoscopy History of prostate biopsy Family History Father Heart disease Stomach ulcer Mother Rheumatoid arthritis Social History Smoking Status: Former smoker Tobacco Type: Cigarettes Age Started Using Tobacco: 19; packs per day: 1; Second Hand Exposure: No; Do You Dip or Chew Tobacco: No; Tobacco Cessation Education Requested by Patient: No Hx Alcohol Use: No Hx Substance Use: No Preferred Language: Kyrgyz Communication Ability: Effective Visual Impairment: No Limitations Hearing Ability: Normal Brake Press Operator Required: No Beliefs That Will Affect Care: None marital status: / Current Living Situation: Family Current Living Situation Comment: Patient llives with Daughter who provides care for him current occupational status: retired current occupation: [employer] Other Information That Helps Us Care for You: No Feels Safe at Home: Yes Safety Concerns: Feels Safe At This Time Diet: regular during the past year weight has: remained stable Assistive Devices: Bedside Commode, Lift Chair, Raised Toilet Seat, Walker and Wheelchair Review of Systems Review of Systems: All systems reviewed & are unremarkable except as noted in HPI & below Physical Exam Physical Exam: General: Ill in appearance Eyes: conjunctiva are pink and non-injected, sclera clear Neck: normal jugular venous pulse, no hepatojugular reflux Chest: normal shape and normal respiratory effort Lungs: clear to auscultation and percussion Cardiac Exam: -Tachycardic, 1/6 systolic murmur Abdomen: abdomen soft, non-tender, no abnormal masses and no hepatosplenomegaly Musculoskeletal: no gait disturbance, no weakness Extremities: no edema and no cyanosis Neuro:awake, conversant, follows commands, no focal motor deficits : Ingram catheter in place draining blood-tinged urine Psych: appropriate affect and insight. Results & Data Vital Signs (Past 12 Hours) Vital Signs Temp Pulse Pulse Resp BP BP Pulse Ox 06/01/24 18:20 119 H 97/60 L 06/01/24 18:06 144 H 104/62 06/01/24 16:44 36.8 C 73 16 185/77 H 96 06/01/24 16:34 150 H 06/01/24 14:40 88 06/01/24 12:44 36.3 C L 81 16 121/69 95 06/01/24 08:08 36.7 C 86 16 132/65 95 06/01/24 07:50 06/01/24 07:00 83 O2 Del Method 06/01/24 18:20 06/01/24 18:06 06/01/24 16:44 Room Air 06/01/24 16:34 06/01/24 14:40 06/01/24 12:44 Room Air 06/01/24 08:08 Room Air 06/01/24 07:50 Room Air 06/01/24 07:00 Laboratory Results Cardiac Enzymes 06/01/24 Range/Units 17:49 Troponin I High Sens 421.1 H* (0-20) pg/ml CBC 06/01/24 Range/Units 17:49 WBC 7.59 (4.8-10.8) K/ul RBC 3.57 L (4.70-6.10) M/uL Hgb 9.3 L (14.0-18.0) g/dl Hct 28.9 L (42.0-52.0) % Plt Count 408 H (130-400) K/uL Neut # (Auto) 7.24 H (1.40-6.50) K/uL Lymph # (Auto) 0.19 L (1.20-3.40) K/uL [place] # (Auto) 0.04 L (0.11-0.59) K/uL Eos # (Auto) 0.02 (0.00-0.50) K/uL Baso # (Auto) 0.02 (0.00-0.20) K/uL Comprehensive Metabolic Panel 06/01/24 06/01/24 Range/Units 06:27 15:59 Sodium 126 L 124 L (136-145) mmol/L Potassium 4.2 4.1 (3.5-5.1) mmol/L Chloride 91 L 90 L (98-107) mmol/L Carbon Dioxide 27 25 (21-32) mmol/L BUN 11 13 (6-23) mg/dl Creatinine 0.92 1.03 (0.6-1.4) mg/dl Glucose 118 H 129 H (70-99(Fasting)) mg/dl Calcium 8.3 L 8.4 L (8.6-10.3) mg/dl Intake and Output 06/01/24 06/01/24 06/01/24 06:59 14:59 22:59 Intake Total 170 / 370 120 / 1033.333 913.333 / 1033.333 Output Total 450 / 700 Balance -280 / -330 118 / 1006.333 888.333 / 1006.333 Intake: IV 50 / 50 313.333 / 313.333 Sodium Chloride 0.9% 1,000 ml @ 313.333 / 313.333 80 mls/hr IV .[id number] [facility] Rx#: [id number] cefTRIAXone SODIUM 2,000 mg In 50 / 50 50 ml @ 100 mls/hr IV Q24H [facility] Rx#:[id number] Oral 120 / 320 120 / 720 600 / 720 Output: Urine Amount (Catheter) 450 / 700 Ingram/Indwelling 450 / 700 # Bowel Movements 2 / Diagnostic Findings Recent EKG as noted above. Previous tracing 05/31/2024 revealed sinus rhythm with frequent PVCs and aberrantly conducted complexes.
--- NOTE | 2024-06-01 19:02 | Discharge Summary ---
Discharge Summary Date of Service June 01, 2024 Principal Dx & Hospital Course #1 = Principal Diagnosis (1) Acute hyponatremia: (2) Generalized weakness: (3) Coronary artery disease: (4) Rheumatoid arthritis: (5) Hypertension: (6) Urinary retention: (7) Prostate cancer: (8) Left ventricular systolic dysfunction: Plan Pt is a 79-year-old male with past medical history significant for prostate cancer treated with lupron and Zytega as well as palliative XRT, prediabetes, hyperlipidemia, hypertension, history of chronic systolic CHF, history of CAD s/p stent, morbid obesity, prostate cancer, chronic kidney disease stage III, degenerative disc disease, osteoporosis, macular degeneration, Fuchs corneal dystrophy, rheumatoid arthritis who presents with concern for increasing weakness at home. Pt was found to be significantly hyponatremic in the ED and was admitted. He followed up with his urologist Dr Sexton on 05/30/24 in office after being lost to follow-up for some months. Pt has had the same indwelling catheter during that time and noted frequent pyuria. Generalized Weakness: Likely in setting of acute infection and noted hyponatremia Hyponatremia: Patient found to be hyponatremic on admission with Na of 123. He was evaluated by Nephrology who treated with a combination of IV Lasix and fluids. Na increased to 126 before downtrending to 124 on discharge. Septic Shock, CAUTI, Osteomyelitis of pubic symphysis, possible pelvic abscess: Pt developed rigors on the second day of admission. Patient has a history of a chronic indwelling catheter for his history of metastatic prostate cancer status post radiation. He follows with [facility] Urologist Dr. Vinay Sexton as an outpatient. He was seen by Dr. Sexton on May 30 2024 when he had his Bautista changed. Dr Sexton's note at that time noted that pt had been lost to follow up and had that particular bautista in for some months before it was changed at that visit. At that time pyuria was also noted. With development of his rigors while hospitalized, a CT abdomen pelvis was obtained which was concerning for osteomyelitis of the pubic symphysis as well as possible abscess and concern for gas-forming organisms. Urology was urgently consulted at the hospital, Dr Fan Garcia, who recommended transfer for needed Interventional Radiology and Infectious Disease services at a tertiary care hospital. Case was also discussed with pt's [facility] urologist Dr Vinay Sexton via tiger text and subsequently via telephone who recommended transfer as well to a tertiary care center. Pt remained afebrile without leukocytosis. lactate was normal. UA from 05/31/24 growing strep dysgalactiae. UA was repeated with repeat urine culture pending. Blood Cultures x2 sets also ordered and pending. Patient was treated initially with a dose of Rocephin on admission which was later escalated to cefepime once rigors started. Once the CT results noted possible abscess, he was treated with IV Zosyn. Empiric vancomycin was also added with the development of septic shock. Patient subsequently became persistently hypotensive, which was not responsive to fluid boluses in the setting of atrial fibrillation. The home stereo equipment installer was consulted and patient was transferred to the ICU and started on Levophed with improvement in blood pressure. Atrial Fibrillation: Pt with noted elevated HR in the 130s to 140s once rigors started. EKG noting atrial fibrillation. hs-trop elevated at 421.1. IV Lopressor 5mg was given with BP at that time of 185/77. Pt on metoprolol succinate 25mg BID for a Hx of PVCs. This was held along with pt's KUN once blood pressures became low. Cardiology was consulted and case was discussed with Dr Dmitri Greenfield who recommended transfer to a tertiary care center as well. No anticoagulation was initiated due to pending transfer and potential need for urgent procedures. Pt's dvt prophylaxis of lovenox was held, with last dose being given the day before transfer. Pt was transferred to [facility] in [place], [place] via air transport from the ICU for further home stereo equipment installer services at [facility], as well as the services of Interventional Radiology, Infectious Disease, Urology and Cardiology. Pt left in stable condition. Notes For Next Care Provider Pt transferred to [facility] for higher level of care Medication Changes From Visit See med list below Admission HPI Per Admitting Provider He is a 79-year-old male with significant past medical history of CAD status post stent, chronic systolic CHF, prostate cancer, chronic kidney disease stage III, osteoporosis, prediabetes and hyperlipidemia 9 and also history of rheumatoid arthritis apparently has been complaining of weakness for some time. His weakness progressed and has had a sodium level done. Came out to be 120 and from that point he was advised for admission. He was prescribed furosemide 20 mg twice daily but he has not taken that medications yet. He has been drinking a lot at home and denies to have any other significant symptoms today except weakness. On asking questions he complains today of some sinus disease but no fever and no chills, no cough or phlegm and no abdominal pain nausea or vomiting. His urinary catheter was changed recently and which will be changed again in about a month. Admission Exam Per Admitting Provider Physical Exam: Lying in bed without any acute distress Constitutional: well developed and well nourished; not ill appearing Eyes: PERRL, conjunctivae normal, anicteric sclerae ENMT: external ear and nose normal, oropharynx normal Neck: trachea midline, no thyromegaly Respiratory: no respiratory distress Auscultation: lungs clear to auscultation bilaterally Cardiovascular: Rate/Rhythm: regular rate and regular rhythm; not tachycardic Heart Sounds: normal S1 and normal S2; no murmur Extremities: + edema (Trace edema bilaterally) Gastrointestinal (Abdomen): Inspection/Auscultation: normal bowel sounds; abdomen not distended Percussion/Palpation: abdomen soft; abdomen nontender Musculoskeletal: No acute arthritis involving any of the joint Neurologic: normal touch/pain/proprioception and moves all extremities; no focal motor deficits Lymphatic: no cervical or axillary lymphadenopathy Discharge Exam General: Alert, oriented Psych: Appropriate mood and affect Neuro: Difficulty with movements in the med HEENT: NC/AT CV: RRR Resp: Breath sounds clear bilaterally, no increased effort of breathing. Abdomen: Soft, tender in lower abdomen and suprapubic area : bautista in place, some penile and testicular erythema Extremities: trace edema in lower extremities bilaterally. Updated Medication List Medication Instructions Recorded Confirmed Type folic acid 1 mg tablet 1 mg PO QAM 04/04/20 05/31/24 History methotrexate sodium 2.5 mg tablet 12.5 mg PO WK 04/15/23 05/31/24 History tamsulosin 0.4 mg capsule 0.4 mg PO QAM 04/15/23 05/31/24 History acetaminophen 325 mg tablet 650 mg (2 x 325 mg) PO Q4H PRN 09/03/23 05/31/24 Rx fever or pain #60 tabs aspirin 81 mg tablet,delayed 81 mg PO QAM #30 tabs 09/03/23 05/31/24 Rx release clopidogrel 75 mg tablet 75 mg PO QAM #30 tabs 09/03/23 05/31/24 Rx losartan 25 mg tablet 12.5 mg PO QAM 03/31/24 05/31/24 History metoprolol succinate 50 mg 25 mg PO BID 03/31/24 05/31/24 History tablet,extended release 24 hr rosuvastatin 5 mg tablet 5 mg PO QAM 04/01/24 05/31/24 History albuterol sulfate 90 mcg/actuation 2 puff inhalation Q6H PRN 04/08/24 05/31/24 Rx aerosol inhaler (Ventolin HFA) shortness of breath or wheezing #8.5 grams melatonin 3 mg tablet 6 mg (2 x 3 mg) PO HS PRN sleep 04/08/24 05/31/24 Rx #60 tabs furosemide 20 mg tablet 20 mg PO BID 05/31/24 05/31/24 History urea 15 gram oral powder packet 1 packet PO UD 05/31/24 05/31/24 History (Ure-Na) Additional Medication Comments Current Inpatient Medications Acetaminophen (Acetaminophen 325 Mg Tab) 650 mg PO Q4H PRN PRN Reason: fever or pain Stop: 06/30/24 18:14 Albuterol (Albuterol Hfa 8 Gm Inhaler) 2 puffs INH Q6H PRN PRN Reason: shortness of breath or wheezing Stop: 06/30/24 18:14 Aspirin (Aspirin 81 Mg Ectab) 81 mg PO QAM [facility] Stop: 07/01/24 08:59 Last Admin: 06/01/24 07:50 Dose: 81 mg Clopidogrel Bisulfate (Clopidogrel Bisulfate 75 Mg Tab) 75 mg PO QAM [facility] Stop: 07/01/24 08:59 Last Admin: 06/01/24 07:50 Dose: 75 mg Enoxaparin Sodium (Enoxaparin Inj 40 Mg/0.4 Ml Syr) 40 mg SQ Q24H [facility] Stop: 06/30/24 18:29 Last Admin: 05/31/24 19:55 Dose: 40 mg Fluticasone Propionate (Fluticasone Propionate Na Spr 16 Gm Btl) 1 sprays NA BID [facility] Stop: 06/30/24 20:59 Last Admin: 06/01/24 07:49 Dose: 1 sprays Folic Acid (Folic Acid 1 Mg Tab) 1 mg PO QAM [facility] Stop: 07/01/24 08:59 Last Admin: 06/01/24 07:51 Dose: 1 mg Furosemide (Furosemide Inj 20 Mg/2 Ml Vial) 20 mg IV ONE ONE Stop: 06/02/24 01:01 Piperacillin Sod/Tazobactam Sod (Zosyn) 4.5 gm in 100 mls @ 200 mls/hr IV NOW ONE; Protocol Stop: 06/01/24 19:14 Losartan Potassium (Losartan Potassium 25 Mg Tab) 12.5 mg PO QAM [facility] Stop: 07/01/24 08:59 Last Admin: 06/01/24 07:50 Dose: 12.5 mg Melatonin (Melatonin 3 Mg Tab) 6 mg PO HS PRN PRN Reason: sleep Stop: 06/30/24 18:14 Last Admin: 05/31/24 21:21 Dose: 6 mg Metoprolol Succinate (Metoprolol Succ 25mg Ext Rel Tab) 25 mg PO BID [facility] Stop: 06/30/24 20:59 Last Admin: 06/01/24 07:49 Dose: 25 mg Rosuvastatin Calcium (Rosuvastatin Calcium 5 Mg Tab) 5 mg PO QAM [facility] Stop: 07/01/24 08:59 Last Admin: 06/01/24 07:49 Dose: 5 mg Tamsulosin HCl (Tamsulosin Hcl 0.4 Mg Cap) 0.4 mg PO QAM [facility] Stop: 07/01/24 08:59 Last Admin: 06/01/24 07:50 Dose: 0.4 mg Hospital Stay Data Consultations 05/31/24 15:15 ED Decision to Admit Stat 06/01/24 08:13 Consult Nephrology Routine 06/01/24 16:46 Consult Urology Routine 06/01/24 18:07 Consult Cardiology Routine Diagnostic Imagining Performed 06/01/24 17:11 CT abd pelvis IV con only Urgent Abdomen/Pelvis CT 06/01/24 17:11 CT OF THE ABDOMEN AND PELVIS WITH CONTRAST CLINICAL HISTORY: Right wrist. Abdominal and pelvic pain. COMPARISON STUDY: CT of the abdomen and pelvis March 31, 2024. TECHNIQUE: Following IV administration of 94 mL of Optiray, axial images of the abdomen and pelvis were obtained from the lung bases to the proximal femurs. Images were reviewed in the axial, sagittal, and coronal planes. IV contrast was administered without complication. Automated exposure control was utilized for the study. A dose lowering technique was utilized adhering to the principles of ALARA. CT DOSE: 1648.11 mGy.cm FINDINGS: No pneumatosis, free air or portal venous gas is present. The heart is moderately enlarged. There are no hepatic lesions. There is no biliary or pancreatic ductal dilatation. Spleen, adrenal glands and pancreas are unremarkable. There is no evidence for a bowel obstruction. Moderate amount of stool is present. There is extensive colonic diverticulosis without evidence for acute diverticulitis. There is no evidence for acute appendicitis. There is trace fluid within the right paracolic gutter. Moderate bilateral hydroureteronephrosis has developed since CT of March 31, 2024. There are no urinary calculi. There is no renal fluid collection. The bladder is moderately distended. Bladder wall thickening is noted. There is stranding adjacent to the bladder, prostate and ureters. A small amount of gas within the bladder is present. A Bautista balloon is malpositioned. The balloon projects over the apex of the prostate and a portion of the catheter is within the symphysis pubis. There is widening of the symphysis pubis with erosion of the medial bilateral pubic bones. Extraluminal gas is noted with stranding. Hypodense focus along the apex of the prostate is noted. In addition, there is a complex rim-enhancing fluid and gas containing collection measuring 6.3 x 1.5 cm anterior to the symphysis pubis. There is enhancement of the adjacent adductor musculature. A few tiny locules of gas along the medial aspect of the right adductor musculature are noted. IMPRESSION: 1. Findings consistent with an extensive infectious process involving the prostate, seminal vesicles, bladder, symphysis pubis and adjacent soft tissues with multiple locules of extraluminal gas and a 6.3 x 1.5 cm parasymphyseal collection consistent with an abscess. Associated erosion of the medial bilateral pubic bones with widening of the symphysis consistent with osteomyelitis. A gas-forming infectious process cannot be excluded. Urology consultation is recommended. The findings will be called/faxed to the ordering provider at time of dictation. 2. Malpositioned Bautista. The Bautista balloon projects over the apex of the prostate and a portion of the catheter extends into the symphysis pubis. 3. Distended bladder with moderate bilateral hydroureteronephrosis which has developed since prior CT. ACT 112: Negative or not required by law. Electronically signed by: Anup Garduno M.D. 06/01/2024 6:11 PM Discharge Instructions Given to Patient (Per Discharging Provider) Patient is a 79-year-old male with history of metastatic prostate cancer presenting with concern for weakness at home. Patient found to be hyponatremic on arrival. he was treated with IV fluids and IV Lasix per the recommendations of nephrology with noted elevated blood pressure of systolic 180s. Patient subsequently developed rigors which was worked up with CT abdomen pelvis, repeat UA, blood cultures, lactate. Patient also developed atrial fi brillation for which he was given a one-time dose of Lopressor 5 mg IV and converted temporarily into sinus tachycardia. Patient was seen and evaluated by cardiology. Patient has a history of a chronic indwelling catheter for his history of metastatic prostate cancer status post radiation. He follows with urology as an outpatient, Dr. Vinay Sexton. He was seen by Dr. Sexton on May 30 2024 when he had his Bautista changed. At that time pyuria was also noted. With development of his rigors while hospitalized, a CT abdomen pelvis was obtained which was concerning for osteomyelitis of the pelvis as well as possible abscess and concern for gas-forming organisms. Urology was urgently consulted who recommended transfer for needed IR and ID services at a tertiary care hospital. patient was treated initially with a dose of Rocephin which was later escalated to cefepime. Once the CT results noted possible abscess he was treated with IV Zosyn. Empiric vancomycin was also added with the development of septic shock. Patient subsequently became persistently hypotensive, which was not responsive to fluid boluses in the setting of atrial fibrillation. The home stereo equipment installer was consulted and patient was started on Levophed. [facility] was contacted per the recommendations of urology and patient was subsequently accepted for transfer. Patient was transferred via [facility] to the ICU at [facility]. Total Time Total Time Spent Total Time Spent (In Minutes): I spent a total of 240 minutes of critical care time in further workup of this patient (obtaining labs, CT abd/pelvis, EKG, administering medications for treatment, etc), discussion of case with international trade specialist Dr. Greenfield, Urology specialists Dr Fan Garcia and Dr Vinay Sexton, Barrel Rib Matting Machine Operator Tarun Bryson as well as specialists at [facility] including the triage officer and Urologist Dr Nakul Smith. Updates were provided frequently during this time to pt's son as well.
[2024-06-01] MEDS: SODIUM CHLORIDE 0.9% 500 ML IV ONE (19:40)
[2024-06-01] MEDS: PIPERACILLIN/TAZOBACTAM 4.5 GM/100 ML BAG IV ONE (19:50)
--- NOTE | 2024-06-01 20:30 | Urology Consultation ---
Date of Consultation June 01, 2024 Assessment & Plan (1) Acute hyponatremia: (2) Urinary retention: (3) Osteomyelitis: (4) Prostate cancer: Plan 79-year-old male with a history of prostate cancer status post radiation who is currently on Lupron. He is previously managed his bladder with straight catheterization but had difficulty roughly 2 months ago where I had to scope in a catheter due to a false passage. He is recently in the hospital due to hyponatremia and the hospital opted to exchange his catheter but this appears to been blown up in his prostatic urethra. A CT scan showed a malpositioned catheter, bilateral hydroureteronephrosis and concerns for what appears to be osteomyelitis of the pubic symphysis with possible abscess formation. I suspect the patient has osteomyelitis of his pubic symphysis secondary to history of radiation for prostate cancer and possibly traumatic catheterizations. His catheter was repositioned and appears to be draining well since his CT scan was performed. Given his A-fib with RVR, suspected osteomyelitis and possible need for further interventions, recommend transfer to a tertiary care center. Navin Reinoso does not have infectious disease or interventional radiology. I worry that if he would need any further treatment or possible further urinary diversion with nephrostomy tubes/IR drainage of any abscess, he would need transfer at that time anyway and it would be preferable to do it now before he decompensates further. Patient was agreeable with this plan. I discussed this with internal medicine. They did reach out to Dr. Sexton and he recommended transfer to [facility] as well. History of Present Illness Attending Physician: Regine Aguirre MD History of Present Illness Very pleasant 79-year-old male with a history of prostate cancer and follows with Dr. Sexton. He finished radiation last year and is on Lupron. He has previously managed his bladder with a straight catheterization program however ran a difficulty cathing back on 04/01/2024 and I saw him as a consult in the hospital. He had a false passage to scope in a catheter. I spoke with him and recommended he touch base with Dr. Sexton for follow-up upon discharge for catheter management. Patient came back in the hospital yesterday with abnormal labs after he was found to be significantly hyponatremic. He was afebrile with stable vitals upon presentation white count was 10, sodium was 123, creatinine was 0.9 and urinalysis looked grossly positive which is to be expected as he is colonized. They reportedly swapped out his catheter last night. Urology was consulted today after a CT scan of the abdomen pelvis was performed which I independently reviewed. This showed bilateral hydroureteronephrosis with a Ingram catheter balloon malpositioned and what appeared to be the prostatic urethra. He also appeared to have osteomyelitis of his pubic symphysis with a questionable collection of gas in the extraluminal space and along the pubic symphysis. A urine culture had grown out Streptococcus dysgalactiae. Patient has previously received cefepime and Zosyn. He also recently went into A-fib with RVR so was tachycardic and had some lower blood pressures. Patient reports feeling okay currently. I confirmed with nursing that the catheter was advanced with return of urine. Patient reported a decrease in bladder pressure and he has been draining thin bloody urine since that time. He states he saw Dr. Vinay Sexton on 05/30/2024 and had a cystoscopy and had a catheter replaced. Allergies Allergy/AdvReac Type Severity Reaction Status Date / Time pollen extracts Allergy Mild WATERY Verified 03/31/24 17:40 EYES, SNEEZING Sulfa (Sulfonamide Allergy Unknown CAN'T Verified 03/31/24 17:40 Antibiotics) REMEMBER KUN Inhibitors AdvReac Intermediate Cough Verified 03/31/24 17:40 alendronate sodium AdvReac Intermediate MUSCLE & Verified 03/31/24 17:40 [From Fosamax] JOINT PAIN, HEARTBURN, CONSTIPATION misoprostol AdvReac Intermediate Diarrhea Verified 03/31/24 17:40 Rlrceez-LCL-OuK Reductase AdvReac Intermediate CONSTIPATION/UPSET Verified 03/31/24 17:40 Inhibitor STOMACH [Hhewibp-Wfd-Aex Reductase Inhibitor] Home Medications Medication Instructions Recorded Confirmed Type folic acid 1 mg tablet 1 mg PO QAM 04/04/20 05/31/24 History methotrexate sodium 2.5 mg tablet 12.5 mg PO WK 04/15/23 05/31/24 History tamsulosin 0.4 mg capsule 0.4 mg PO QAM 04/15/23 05/31/24 History acetaminophen 325 mg tablet 650 mg (2 x 325 mg) PO Q4H PRN 09/03/23 05/31/24 Rx fever or pain #60 tabs aspirin 81 mg tablet,delayed 81 mg PO QAM #30 tabs 09/03/23 05/31/24 Rx release clopidogrel 75 mg tablet 75 mg PO QAM #30 tabs 09/03/23 05/31/24 Rx losartan 25 mg tablet 12.5 mg PO QAM 03/31/24 05/31/24 History metoprolol succinate 50 mg 25 mg PO BID 03/31/24 05/31/24 History tablet,extended release 24 hr rosuvastatin 5 mg tablet 5 mg PO QAM 04/01/24 05/31/24 History albuterol sulfate 90 mcg/actuation 2 puff inhalation Q6H PRN 04/08/24 05/31/24 Rx aerosol inhaler (Ventolin HFA) shortness of breath or wheezing #8.5 grams melatonin 3 mg tablet 6 mg (2 x 3 mg) PO HS PRN sleep 04/08/24 05/31/24 Rx #60 tabs furosemide 20 mg tablet 20 mg PO BID 05/31/24 05/31/24 History urea 15 gram oral powder packet 1 packet PO UD 05/31/24 05/31/24 History (Ure-Na) Patient History Medical History Left ventricular systolic dysfunction Degeneration of lumbosacral intervertebral disc Impaired fasting glucose Macular degeneration Fuchs' corneal dystrophy Frequent UTI Surgical History H/O colonoscopy History of prostate biopsy Family History Father Heart disease Stomach ulcer Mother Rheumatoid arthritis Social History Smoking Status: Former smoker Tobacco Type: Cigarettes Age Started Using Tobacco: 19; packs per day: 1; Second Hand Exposure: No; Do You Dip or Chew Tobacco: No; Tobacco Cessation Education Requested by Patient: No Hx Alcohol Use: No Hx Substance Use: No Preferred Language: Icelandic Communication Ability: Effective Visual Impairment: No Limitations Hearing Ability: Normal Cuff Turner Required: No Beliefs That Will Affect Care: None marital status: / Current Living Situation: Family Current Living Situation Comment: Patient llives with Daughter who provides care for him current occupational status: retired current occupation: [employer] Other Information That Helps Us Care for You: No Feels Safe at Home: Yes Safety Concerns: Feels Safe At This Time Diet: regular during the past year weight has: remained stable Assistive Devices: Bedside Commode, Lift Chair, Raised Toilet Seat, Walker and Wheelchair Physical Exam Physical Exam: General: Alert and oriented, no acute distress HEENT: Normocephalic, mucous membranes moist Pulmonary: Nonlabored respirations Abdomen: Nondistended : Circumcised phallus with orthotopic meatus. Testicles descended bilaterally and palpably normal. Ingram catheter in place draining thin bloody urine. No areas of crepitus in the lower abdomen, inguinal, penile, genital or perineal area. Extremities: Moves all 4 spontaneously Neuro: No gross deficits Skin: Warm, dry, no rashes noted Results & Data Vital Signs (Past 12 Hours) Vital Signs Temp Pulse Pulse Resp BP BP Pulse Ox 06/01/24 19:25 36.8 C 117 H 36 H 81/44 L 97 06/01/24 18:20 119 H 97/60 L 06/01/24 18:06 144 H 104/62 06/01/24 16:44 36.8 C 73 16 185/77 H 96 06/01/24 16:34 150 H 06/01/24 14:40 88 06/01/24 12:44 36.3 C L 81 16 121/69 95 O2 Del Method 06/01/24 19:25 Room Air 06/01/24 18:20 06/01/24 18:06 06/01/24 16:44 Room Air 06/01/24 16:34 06/01/24 14:40 06/01/24 12:44 Room Air PG Care Time/CCT Total # of Minutes Spent Total Time Spent with Patient: Total time spent is greater than 50% in coordination of care (as documented) at patient's floor/unit and/or counseling patient: Coding Level of Care Code 50797 INT INP/OBS CARE 2/55MIN Diagnoses Acute hyponatremia E87.1 Urinary retention R33.9 Osteomyelitis M86.9 Prostate cancer C61
[2024-06-01] MEDS ORDERED: VANCOMYCIN CONSULT ACTIVE PRN (20:40)
[2024-06-01] MEDS: ALBUMIN 5% 250 ML IV ONE (20:59)
[2024-06-01] MEDS ORDERED: VANCOMYCIN HCL 2,750 MG in DEXTROSE 5% 500 ML IV ONE (21:00)
[2024-06-01] MEDS ORDERED: STAT IV Infusion **Titration per Protocol STA (21:28)
[2024-06-01] MEDS: NOREPINEPHRINE/D5W 4 MG/250 ML PLCT IV SCH (21:31)
[2024-06-01] MEDS: NOREPINEPHRINE/D5W 4 MG/250 ML IV ONE (21:34)
[2024-06-01] MEDS: VANCOMYCIN HCL 2,750 MG in SODIUM CHLORIDE 0.9% 500 ML IV ONE (21:36)
--- NOTE | 2024-06-01 21:38 | Critical Care Consultation ---
Date of Consultation June 01, 2024 Assessment & Plan (1) Severe sepsis: (2) Osteomyelitis: (3) Acute hyponatremia: (4) Tachycardia: (5) Prostate cancer: Plan [place] as per HPI- Appears with now severe sepsis from standpoint as well as concern for osteomyelitis. Imaging reviewed personally, ECG reviewed - Patient transferred to ICU for stabilization and requiring vasopressor support while areovac transport is en route. - Patient given 250ml bolus of albumin - Levophed initiated with increase in SBP to 99/46 and MAP increased to 76 - He has received dose of Vancomycin as well as Zosyn prior to transfer - He is noted with chronic hyponatremia multifactorial with review of labs as SIADH history no complicated by likely hypovolemia - His Afib is now in NSR with PAC's PVCs and is rate and rhythm controlled currently- will not add any further pharmacology measures at this time - Random Cortisol pending- if he becomes refractory to vasopressor administration will add stress dose steroids. - Urology evaluation was completed prior to transfer and they are aware with CT findings including report of malposition- prostatic urethra - Cardiology consultation reviewed- hold on anticoagulation at this time as Afib is new and likely going to require invasive procedures in the near future I have personally spent 30 minutes of critical care time in the direct management of this patient. This is a life/limb threatening event. This includes time spent evaluating patient, direct bedside care, chart review, placing orders, interpretation of diagnostic studies, discussion with consultants, patient, and family members, as well as other required patient management activities. This time is exclusive of all separately billable procedures, and teaching time and separate from and in addition to any other critical care service time. Thank you for allowing us to participate in the care of this patient. Please refer to my attending physician's documentation for any further recommendations. Supervising Physician Co-Signing Physician Notes Discussed with critical care GABE. Patient was transferred prior to my arrival this morning to a higher level of care. Agree with assessment plan as noted History of Present Illness Reason for Consultation: septic shock afib with RVR Requesting Physician: Regine Aguirre Attending Physician: Regine Aguirre MD History of Present Illness In short ICU was consulted while patient was in midst of transfer for septic shock secondary to likely urinary source with osteomyelitis in setting of prostate cancer post radiation. He was being transferred for possible Biopsy as well as concern for possible need for diverting nephrostomy tubes. During this, he went into afib with RVR initially was doing well with his blood pres sures, however he developed hypotension which is likely related to his intravascular volume and septic shock that may have been also exacerbated by metoprolol doses for afib control. Patient was brought to the ICU where Levopehd was initiated, albumin bolus being administered. He has been accepted to the ICU at [facility] as well as Aerovacuation team is currently en route. Patient arrives to the ICU- he is awake, conversant and oriented, without any respiratory distress at this time. He is chest pain free, and actually in NSR with frequent PACs and occasional PVCs. IV access was established prior to arrival to the ICU with ultrasound guided x2. - Levophed initiated with goal MAP >65 if tachycardia worsens, will change to Neosynepherine. - At this time he appears stable for transport without further interventions or invasive lines. - May need arterial line or CVL if he decompensates or unable to maintain an accurate pressure. CODE: FULL Allergies Allergy/AdvReac Type Severity Reaction Status Date / Time pollen extracts Allergy Mild WATERY Verified 03/31/24 17:40 EYES, SNEEZING Sulfa (Sulfonamide Allergy Unknown CAN'T Verified 03/31/24 17:40 Antibiotics) REMEMBER KUN Inhibitors AdvReac Intermediate Cough Verified 03/31/24 17:40 alendronate sodium AdvReac Intermediate MUSCLE & Verified 03/31/24 17:40 [From Fosamax] JOINT PAIN, HEARTBURN, CONSTIPATION misoprostol AdvReac Intermediate Diarrhea Verified 03/31/24 17:40 Hetcdtb-VFF-HtJ Reductase AdvReac Intermediate CONSTIPATION/UPSET Verified 03/31/24 17:40 Inhibitor STOMACH [Hoprvqn-Vwi-Xvg Reductase Inhibitor] Home Medications Medication Instructions Recorded Confirmed Type folic acid 1 mg tablet 1 mg PO QAM 04/04/20 05/31/24 History methotrexate sodium 2.5 mg tablet 12.5 mg PO WK 04/15/23 05/31/24 History tamsulosin 0.4 mg capsule 0.4 mg PO QAM 04/15/23 05/31/24 History acetaminophen 325 mg tablet 650 mg (2 x 325 mg) PO Q4H PRN 09/03/23 05/31/24 Rx fever or pain #60 tabs aspirin 81 mg tablet,delayed 81 mg PO QAM #30 tabs 09/03/23 05/31/24 Rx release clopidogrel 75 mg tablet 75 mg PO QAM #30 tabs 09/03/23 05/31/24 Rx losartan 25 mg tablet 12.5 mg PO QAM 03/31/24 05/31/24 History metoprolol succinate 50 mg 25 mg PO BID 03/31/24 05/31/24 History tablet,extended release 24 hr rosuvastatin 5 mg tablet 5 mg PO QAM 04/01/24 05/31/24 History albuterol sulfate 90 mcg/actuation 2 puff inhalation Q6H PRN 04/08/24 05/31/24 Rx aerosol inhaler (Ventolin HFA) shortness of breath or wheezing #8.5 grams melatonin 3 mg tablet 6 mg (2 x 3 mg) PO HS PRN sleep 04/08/24 05/31/24 Rx #60 tabs furosemide 20 mg tablet 20 mg PO BID 05/31/24 05/31/24 History urea 15 gram oral powder packet 1 packet PO UD 05/31/24 05/31/24 History (Ure-Na) Patient History Medical History Left ventricular systolic dysfunction Degeneration of lumbosacral intervertebral disc Impaired fasting glucose Macular degeneration Fuchs' corneal dystrophy Frequent UTI Surgical History H/O colonoscopy History of prostate biopsy Family History Father Heart disease Stomach ulcer Mother Rheumatoid arthritis Social History Smoking Status: Former smoker Tobacco Type: Cigarettes Age Started Using Tobacco: 19; packs per day: 1; Second Hand Exposure: No; Do You Dip or Chew Tobacco: No; Hx Alcohol Use: No Hx Substance Use: No Preferred Language: Malay Communication Ability: Effective Visual Impairment: No Limitations Hearing Ability: Normal Colorist Dyer Required: No Beliefs That Will Affect Care: None marital status: / Current Living Situation: Family Current Living Situation Comment: Patient llives with Daughter who provides care for him current occupational status: retired current occupation: [employer] Feels Safe at Home: Yes Diet: regular during the past year weight has: remained stable Assistive Devices: Bedside Commode, Lift Chair, Raised Toilet Seat, Walker and Wheelchair Review of Systems Review of Systems: REVIEW OF SYSTEMS: Constitutional: (+) fever, sweats or chills Eyes: No diplopia, no worsening or blurred vision ENT: normal hearing, no trouble swallowing Respiratory: No cough, sputum, dyspnea at rest or on exertion Cardiovascular: (+) palpitations, No chest pain, tightness or palpitations Abdomen: No pain, nausea, vomiting, diarrhea or constipation Neurologic: No weakness, Psychiatric: No anxiety or depression Skin: No rash or itch Physical Exam Physical Exam: PHYSICAL EXAM: General: awake, alert, no apparent distress Head: Normocephalic, atraumatic ENT: PERRLA, EOMI, no pharyngeal exudate, mucous membranes dry Neuro: AAO x 3, speech clear and appropriate, strength intact bilaterally 5/5, sensation intact no pronator drift Chest: equal rise and fall of the chest, no accessory muscle use, no heaves or thrills, Clear to auscultation, on room air, Cardiac: Regular rate and rhythm, telemetry reviewed- NSR with PAcs, PVC, skin warm dry, cap refill <3 seconds, peripheral pulses +2 no JVD, no murmur, trace lower extremity edema GI: NABS x 4 quadrants, soft, nontender to palpation, no rebound, guarding or tenderness : Ingram to gravity draining archibald red urine Results & Data Results & Data Vital Signs (Past 12 Hours) Vital Signs Temp Pulse Pulse Resp BP BP Pulse Ox 06/01/24 21:07 129 H 06/01/24 20:44 37.4 C 115 H 22 70/43 L 92 06/01/24 19:25 36.8 C 117 H 36 H 81/44 L 97 06/01/24 18:20 119 H 97/60 L 06/01/24 18:06 144 H 104/62 06/01/24 16:44 36.8 C 73 16 185/77 H 96 06/01/24 16:34 150 H 06/01/24 14:40 88 06/01/24 12:44 36.3 C L 81 16 121/69 95 O2 Del Method 06/01/24 21:07 06/01/24 20:44 Room Air 06/01/24 19:25 Room Air 06/01/24 18:20 06/01/24 18:06 06/01/24 16:44 Room Air 06/01/24 16:34 06/01/24 14:40 06/01/24 12:44 Room Air Laboratory Results Abnormal lab results 06/01/24 06/01/24 06/01/24 Range/Units 06:27 15:59 17:49 RBC 3.57 L (4.70-6.10) M/uL Hgb 9.3 L (14.0-18.0) g/dl Hct 28.9 L (42.0-52.0) % RDW Std Deviation 50.7 H (36.4-46.3) fL RDW Coeff of Jenny 17.5 H (11.5-14.5) % Plt Count 408 H (130-400) K/uL MPV 8.6 L (9.4-12.4) fL Neut # (Auto) 7.24 H (1.40-6.50) K/uL Lymph # (Auto) 0.19 L (1.20-3.40) K/uL Giles # (Auto) 0.04 L (0.11-0.59) K/uL Sodium 126 L 124 L (136-145) mmol/L Chloride 91 L 90 L (98-107) mmol/L Glucose 118 H 129 H (70-99(Fasting)) mg/dl Calcium 8.3 L 8.4 L (8.6-10.3) mg/dl Troponin I High Sens 421.1 H* (0-20) pg/ml Procalcitonin (0-0.5) ng/ml Urine Appearance (Clear) Urine Protein (Negative) Urine Blood (Negative) Ur Leukocyte Esterase (Negative) Urine WBC (Auto) (0-5) /hpf Urine RBC (Auto) (0-2) /hpf U Epithel Cells (Auto) (0-2) /hpf Urine Bacteria (Auto) (None Seen) 06/01/24 06/01/24 Range/Units 20:49 Unknown RBC (4.70-6.10) M/uL Hgb (14.0-18.0) g/dl Hct (42.0-52.0) % RDW Std Deviation (36.4-46.3) fL RDW Coeff of Jenny (11.5-14.5) % Plt Count (130-400) K/uL MPV (9.4-12.4) fL Neut # (Auto) (1.40-6.50) K/uL Lymph # (Auto) (1.20-3.40) K/uL Giles # (Auto) (0.11-0.59) K/uL Sodium (136-145) mmol/L Chloride (98-107) mmol/L Glucose (70-99(Fasting)) mg/dl Calcium (8.6-10.3) mg/dl Troponin I High Sens (0-20) pg/ml Procalcitonin 8.78 H (0-0.5) ng/ml Urine Appearance Turbid A (Clear) Urine Protein 3+ H (Negative) Urine Blood 3+ H (Negative) Ur Leukocyte Esterase 3+ H (Negative) Urine WBC (Auto) >50 H (0-5) /hpf Urine RBC (Auto) >20 H (0-2) /hpf U Epithel Cells (Auto) 11-20 H (0-2) /hpf Urine Bacteria (Auto) 4+ H (None Seen) Diagnostic Findings Abdomen/Pelvis CT 06/01/24 17:11 CT OF THE ABDOMEN AND PELVIS WITH CONTRAST CLINICAL HISTORY: Right wrist. Abdominal and pelvic pain. COMPARISON STUDY: CT of the abdomen and pelvis March 31, 2024. TECHNIQUE: Following IV administration of 94 mL of Optiray, axial images of the abdomen and pelvis were obtained from the lung bases to the proximal femurs. Images were reviewed in the axial, sagittal, and coronal planes. IV contrast was administered without complication. Automated exposure control was utilized for the study. A dose lowering technique was utilized adhering to the principles of ALARA. CT DOSE: 1648.11 mGy.cm FINDINGS: No pneumatosis, free air or portal venous gas is present. The heart is moderately enlarged. There are no hepatic lesions. There is no biliary or pancreatic ductal dilatation. Spleen, adrenal glands and pancreas are unremarkable. There is no evidence for a bowel obstruction. Moderate amount of stool is present. There is extensive colonic diverticulosis without evidence for acute diverticulitis. There is no evidence for acute appendicitis. There is trace fluid within the right paracolic gutter. Moderate bilateral hydroureteronephrosis has developed since CT of March 31, 2024. There are no urinary calculi. There is no renal fluid collection. The bladder is moderately distended. Bladder wall thickening is noted. There is stranding adjacent to the bladder, prostate and ureters. A small amount of gas within the bladder is present. A Ingram balloon is malpositioned. The balloon projects over the apex of the prostate and a portion of the catheter is within the symphysis pubis. There is widening of the symphysis pubis with erosion of the medial bilateral pubic bones. Extraluminal gas is noted with stranding. Hypodense focus along the apex of the prostate is noted. In addition, there is a complex rim-enhancing fluid and gas containing collection measuring 6.3 x 1.5 cm anterior to the symphysis pubis. There is enhancement of the adjacent adductor musculature. A few tiny locules of gas along the medial aspect of the right adductor musculature are noted. IMPRESSION: 1. Findings consistent with an extensive infectious process involving the prostate, seminal vesicles, bladder, symphysis pubis and adjacent soft tissues with multiple locules of extraluminal gas and a 6.3 x 1.5 cm parasymphyseal collection consistent with an abscess. Associated erosion of the medial bilateral pubic bones with widening of the symphysis consistent with osteomyelitis. A gas-forming infectious process cannot be excluded. Urology cons ultation is recommended. The findings will be called/faxed to the ordering provider at time of dictation. 2. Malpositioned Ingram. The Ingram balloon projects over the apex of the prostate and a portion of the catheter extends into the symphysis pubis. 3. Distended bladder with moderate bilateral hydroureteronephrosis which has developed since prior CT. ACT 112: Negative or not required by law. Electronically signed by: Anup Garduno M.D. 06/01/2024 6:11 PM Medications Administered Aspirin (Aspirin 81 Mg Ectab) 81 mg PO [facility] Stop: 07/01/24 08:59 Last Admin: 06/01/24 07:50 Dose: 81 mg Documented By: [facility] [place] Clopidogrel Bisulfate (Clopidogrel Bisulfate 75 Mg Tab) [facility] [place] Stop: 07/01/24 08:59 Last Admin: 06/01/24 07:50 Dose: 75 mg Documented By: KAYY Enoxaparin Sodium (Enoxaparin Inj 40 Mg/0.4 Ml Syr) 40 mg SQ Q24H RUBENS Stop: 06/30/24 18:29 Last Admin: 05/31/24 19:55 Dose: 40 mg Documented By: ANURAG Fluticasone Propionate (Fluticasone Propionate Na Spr 16 Gm Btl) 1 sprays NA BID [facility]UBENS Stop: 06/30/24 20:59 Last Admin: 06/01/24 07:49 Dose: 1 sprays Documented By: Admin: 05/31/24 21:43 Dose: 1 sprays Documented By: NURA Folic Acid (Folic Acid 1 Mg Tab) [facility] [place] Stop: 07/01/24 08:59 Last Admin: 06/01/24 07:51 Dose: 1 mg Documented By: KAYY Losartan Potassium (Losartan Potassium 25 Mg Tab) 12.5 mg PO QAM [facility] Stop: 07/01/24 08:59 Last Admin: 06/01/24 07:50 Dose: 12.5 mg Documented By: KAYY Melatonin (Melatonin 3 Mg Tab) 6 mg PO HS PRN PRN Reason: sleep Stop: 06/30/24 18:14 Last Admin: 05/31/24 21:21 Dose: 6 mg Documented By: NURA Metoprolol Succinate (Metoprolol Succ 25mg Ext Rel Tab) 25 mg PO BID [facility] Stop: 06/30/24 20:59 Last Admin: 06/01/24 07:49 Dose: 25 mg Documented By: Admin: 05/31/24 21:21 Dose: 25 mg Documented By: NURA Rosuvastatin Calcium (Rosuvastatin Calcium 5 Mg Tab) 5 mg PO QAM [facility] Stop: 07/01/24 08:59 Last Admin: 06/01/24 07:49 Dose: 5 mg Documented By: KAYY Tamsulosin HCl (Tamsulosin Hcl 0.4 Mg Cap) 0.4 mg [facility] [place] Stop: 07/01/24 08:59 Last Admin: 06/01/24 07:50 Dose: 0.4 mg Documented By: KAYY Discontinued Medications Furosemide (Furosemide 20 Mg Tab) 20 mg PO NOW STA Stop: 05/31/24 18:16 Last Admin: 05/31/24 19:55 Dose: 20 mg Documented By: ANURAG Ceftriaxone Sodium (Rocephin) 2,000 mg in 50 mls @ 100 mls/hr IV Q24H [facility] Stop: 06/11/24 02:59 Last Infusion: 06/01/24 05:42 Dose: Infused Documented By: Admin: 06/01/24 03:20 Dose: 100 mls/hr Documented By: Sodium Chloride (Nss) 1,000 mls @ 80 mls/hr IV .[id number] RUBENS Stop: 06/02/24 00:59 Last Infusion: 06/01/24 16:51 Dose: Infused Documented By: Admin: 06/01/24 12:56 Dose: 80 mls/hr Documented By: Kelvin Cefepime HCl (Maxipime 2000mg) 2,000 mg in 20 mls @ 5 mls/min IV Q12H RUBENS; Protocol Stop: 06/11/24 17:29 Last Admin: 06/01/24 18:10 Dose: 5 mls/min Documented By: Kelvin Piperacillin Sod/Tazobactam Sod (Zosyn) 4.5 gm in 100 mls @ 200 mls/hr IV NOW ONE; Protocol Stop: 06/01/24 19:14 Last Infusion: 06/01/24 20:52 Dose: Infused Documented By: Admin: 06/01/24 19:50 Dose: 200 mls/hr Documented By: HDC Sodium Chloride (Nss) 500 mls @ 999 mls/hr IV .Q31M ONE Stop: 06/01/24 20:01 Last Infusion: 06/01/24 21:24 Dose: Infused Documented By: Infusion: 06/01/24 21:04 Dose: Infused Documented By: Admin: 06/01/24 19:40 Dose: 999 mls/hr Documented By: HDC Albumin Human (Albumin 5%) 250 mls @ 500 mls/hr IV ONE ONE Stop: 06/01/24 21:01 Last Admin: 06/01/24 20:59 Dose: 500 mls/hr Documented By: SKLucita Ioversol (Optiray 320 100ml) 94 ml IV ONCE ONE Stop: 06/01/24 17:34 Last Admin: 06/01/24 17:34 Dose: 94 ml Documented By: AI Metoprolol Tartrate (Metoprolol Tartrate 1 Mg/Ml Vial) 5 mg IV NOW STA Stop: 06/01/24 17:56 Last Admin: 06/01/24 18:06 Dose: 5 mg Documented By: [facility] [place] Coding Level of Care Code 62458 CRITICAL CARE 1ST 30-74M Diagnoses Severe sepsis A41.9; R65.20 Osteomyelitis M86.9 Acute hyponatremia E87.1 Tachycardia R00.0 Prostate cancer C61
[2024-06-01] MEDS: ACETAMINOPHEN 325 MG TAB PO PRN (21:41)
[2024-06-01 21:48] VITALS: TEMP 101
[2024-06-01 22:02] VITALS: O2SAT 100
[2024-06-01 22:08] VITALS: BP 100/60; PULSE 117; RESP 25
[2024-06-02] MEDS ORDERED: FUROSEMIDE INJ 20 MG/2 ML VIAL IV ONE (01:00)
[2024-06-02] MEDS ORDERED: VANCOMYCIN HCL 1,000 MG/270 ML BAG IV SCH (09:00)
--- NOTE | 2024-06-02 14:50 | Electrocardiogram Report ---
Test Reason : Blood Pressure : */* mmHG Vent. Rate : 142 BPM Atrial Rate : 144 BPM P-R Int : * ms QRS Dur : 100 ms QT Int : 286 ms P-R-T Axes : * 10 57 degrees QTcB Int : 439 ms Atrial fibrillation with PVCs versus aberrant conduction Otherwise normal ECG When compared with ECG of 31-May-2024 14:01, Non-specific change in ST segment in Lateral leads Confirmed by Vineet Philippe ([id number]) on 06/02/2024 2:50:09 PM Referred By: Bryson Ellis Confirmed By: Vineet Philippe
== END 2024-06-01 22:29 | disposition short-term general hospital (02) | DRG 640 ==
LOC: ED 13:41 → EDINP 15:55 → SUATTDRO 15:55 → 2N 20:22 → 2S 06-01 19:34 → 1E 06-01 21:15

== ENCOUNTER 2024-11-17 16:45 | Inpatient (IN) ==
[2024-11-17 17:50] LABS: Hemoglobin 9.5 g/dl (14.0-18.0); Mean Corpuscular Hgb Conc 31.7 g/dL (32.0-36.0); Mean Corpuscular Volume 85.2 fL (80.0-100.0); Mean Platelet Volume 9.3 fL (9.4-12.4); Platelet Count 356 K/uL (130-400); RDW Coefficient of Variation 18.9 % (11.5-14.5); RDW Standard Deviation 55.8 fL (36.4-46.3); Red Blood Count 3.52 M/uL (4.70-6.10); White Blood Count 14.75 K/ul (4.8-10.8)
--- NOTE | 2024-11-17 17:56 | Emergency Department Note ---
Impression & Plan Acute UTI ED Provider Note Diagnosis: UTI, leukocytosis Disposition: Admission CHIEF COMPLAINT: Urinary symptoms HPI: Patient 79-year-old male follows with urology has chronic Ingram catheter. Patient states is not due to be changed for another week. Patient states the urologist has to do it with scope because of so much strictures and swelling present. Patient is going to have suprapubic catheter placed next month. Patient's noticed urine to have debris and cloudy. Patient denies any blood in urine. Patient denies any fevers or chills. Patient denies any abdominal pain. Patient states he reached out to his urology team and they recommended he come to the hospital to have a urinalysis and check for infection. PAST MEDICAL HISTORY: See Below PAST SURGICAL HISTORY: See Below SOCIAL HISTORY: See Below HOME MEDICATIONS: See Below ALLERGIES: See Below VITALS: See Below PHYSICAL EXAMINATION: GENERAL: Well appearing, well nourished, NAD, non-toxic. EYE EXAM: Normal conjunctiva. OROPHARYNX: Moist mucus membranes. Grossly normal dentition. NECK: Supple, LUNGS: Clear to auscultation. Normal chest wall mechanics. HEART: NSR ABDOMEN: Abdomen soft, non-tender, normo-active bowel sounds, no masses, no rebound or guarding BACK: No CVA TTP. SKIN: No rashes and no bruising. UPPER EXTREMITIES: Upper extremities are grossly normal LOWER EXTREMITIES: Grossly normal, no edema. NEURO EXAM: A&O x3,, normal speech, moves all 4 extremities PSYCH: Cooperative MEDICAL DECISION MAKING: History obtained from: Patient ER Course: Patient 79-year-old male presenting with complaint of sediment in his urine. Patient has chronic Ingram and is due for change next week. Patient states urology has to change it under guidewire due to swelling of his prostate. Patient found to have leukocytosis today. Patient given IV Rocephin. Patient admitted to hospital service further treatment and evaluation Labs (independently interpreted) are significant for: White count of 14 Medications given: Rocephin Consultants: Hospitalist Triage Nursing notes reviewed and agree them. Vital Signs: reviewed and remarkable for: no significant abnormalities Past Med/Surg History Problem List (Updated 11/18/24 @ 00:18 by Guy Barrow DO) Acute UTI (Acute) Severe sepsis Osteomyelitis Tachycardia Acute hyponatremia (Acute) Generalized weakness (Acute) Frequent ventricular premature beats Acute cystitis (Acute) Generalized weakness (Acute) Substernal chest pain (Acute) Ventricular tachycardia (Acute) Coronary artery disease NSVT (nonsustained ventricular tachycardia) Unstable angina pectoris Rheumatoid arthritis Hypertension Urinary retention Morbid obesity Ventricular tachycardia Prostate cancer (Chronic 03/16/23) Arthritis of knee, left Medical History Degeneration of lumbosacral intervertebral disc Impaired fasting glucose Macular degeneration Fuchs' corneal dystrophy Frequent UTI Surgical History H/O colonoscopy History of prostate biopsy Family History Father Heart disease Stomach ulcer Mother Rheumatoid arthritis Social History Smoking Status: Former smoker Tobacco Type: Cigarettes Age Started Using Tobacco: 19; packs per day: 1; Second Hand Exposure: No; Do You Dip or Chew Tobacco: No; Hx Alcohol Use: No Hx Substance Use: No Preferred Language: Thai Communication Ability: Effective Visual Impairment: No Limitations Hearing Ability: Normal Sports Medicine Physician Required: No Beliefs That Will Affect Care: None marital status: / Current Living Situation: Family Current Living Situation Comment: Patient llives with Daughter who provides care for him current occupational status: retired current occupation: [employer] Feels Safe at Home: Yes Diet: regular during the past year weight has: remained stable Assistive Devices: Bedside Commode, Lift Chair, Raised Toilet Seat, Walker and Wheelchair Allergies Allergies Allergy/AdvReac Type Severity Reaction Status Date / Time pollen extracts Allergy Mild WATERY Verified 03/31/24 17:40 EYES, SNEEZING Sulfa (Sulfonamide Allergy Unknown CAN'T Verified 03/31/24 17:40 Antibiotics) REMEMBER KUN Inhibitors AdvReac Intermediate Cough Verified 03/31/24 17:40 alendronate sodium AdvReac Intermediate MUSCLE & Verified 03/31/24 17:40 [From Fosamax] JOINT PAIN, HEARTBURN, CONSTIPATION misoprostol AdvReac Intermediate Diarrhea Verified 03/31/24 17:40 Altuvnm-ODF-TfY Reductase AdvReac Intermediate CONSTIPATION/UPSET Verified 03/31/24 17:40 Inhibitor STOMACH [Iwryvht-Sin-Sao Reductase Inhibitor] Home Meds Home Medications Medication Instructions Recorded Confirmed folic acid 1 mg tablet 1 mg PO QAM 04/04/20 11/17/24 methotrexate sodium 2.5 mg tablet 12.5 mg PO WK 04/15/23 11/17/24 tamsulosin 0.4 mg capsule 0.4 mg PO QAM 04/15/23 11/17/24 losartan 25 mg tablet 12.5 mg PO QAM 03/31/24 11/17/24 rosuvastatin 5 mg tablet 5 mg PO QAM 04/01/24 11/17/24 furosemide 20 mg tablet 20 mg PO AMPM 05/31/24 11/17/24 melatonin 1 mg chewable tablet 1 mg PO HS PRN Sleep 11/17/24 11/17/24 metoprolol succinate 25 mg 25 mg PO QAM 11/17/24 11/17/24 tablet,extended release 24 hr metoprolol succinate 25 mg 37.5 mg PO QPM 11/17/24 11/17/24 tablet,extended release 24 hr Previous Rx's Medication Instructions Recorded acetaminophen 325 mg tablet 650 mg (2 x 325 mg) PO Q4H PRN 09/03/23 fever or pain #60 tabs aspirin 81 mg tablet,delayed 81 mg PO QAM #30 tabs 09/03/23 release albuterol sulfate 90 mcg/actuation 2 puff inhalation Q6H PRN 04/08/24 aerosol inhaler (Ventolin HFA) shortness of breath or wheezing #8.5 grams Results & Data (ED) Vital Signs Vital Signs - 24 hr 11/17/24 16:52 11/17/24 17:08 11/17/24 17:33 Temperature 36.5 C Temperature Source Oral Pulse Rate 93 H 89 Pulse Rate [Apical] Pulse Rate from SpO2 Sensor 65 Pulse Rhythm [Apical] Pulse Strength [Apical] Respiratory Rate 16 20 Respiratory Effort / Characteristics Non-Labored Spontaneous Respiratory Depth Normal Respiratory Pattern Regular Blood Pressure 110/67 131/68 Blood Pressure [Right Arm] Blood Pressure Mean 81 89 Blood Pressure Mean [Right Arm] Blood Pressure Position [Right Arm] Pulse Oximetry 97 98 Oxygen Delivery Method Room Air Sepsis Recent Fever Within 48 Hours No Sepsis New/Unexplained Change in Mental Status No Sepsis Action Taken by Nursing No Action Required 11/17/24 18:36 11/17/24 19:18 11/17/24 20:00 Temperature Temperature Source Pulse Rate 88 91 H 88 Pulse Rate [Apical] Pulse Rate from SpO2 Sensor Pulse Rhythm [Apical] Pulse Strength [Apical] Respiratory Rate 24 18 20 Respiratory Effort / Characteristics Respiratory Depth Respiratory Pattern Blood Pressure 129/65 124/59 L 100/70 Blood Pressure [Right Arm] Blood Pressure Mean 86 80 80 Blood Pressure Mean [Right Arm] Blood Pressure Position [Right Arm] Pulse Oximetry 97 97 97 Oxygen Delivery Method Sepsis Recent Fever Within 48 Hours Sepsis New/Unexplained Change in Mental Status Sepsis Action Taken by Nursing 11/17/24 21:00 11/17/24 21:06 11/17/24 22:00 Temperature Temperature Source Pulse Rate 80 90 86 Pulse Rate [Apical] Pulse Rate from SpO2 Sensor Pulse Rhythm [Apical] Pulse Strength [Apical] Respiratory Rate 20 16 Respiratory Effort / Characteristics Respiratory Depth Respiratory Pattern Blood Pressure 112/73 121/59 L Blood Pressure [Right Arm] Blood Pressure Mean 86 79 Blood Pressure Mean [Right Arm] Blood Pressure Position [Right Arm] Pulse Oximetry 97 97 Oxygen Delivery Method Sepsis Recent Fever Within 48 Hours Sepsis New/Unexplained Change in Mental Status Sepsis Action Taken by Nursing 11/18/24 00:00 11/18/24 00:12 Temperature Temperature Source Pulse Rate 78 Pulse Rate [Apical] 101 H Pulse Rate from SpO2 Sensor Pulse Rhythm [Apical] Regular Pulse Strength [Apical] Normal Respiratory Rate 18 18 Respiratory Effort / Characteristics Non-Labored Spontaneous Respiratory Depth Normal Respiratory Pattern Regular Blood Pressure 126/99 Blood Pressure [Right Arm] 126/99 Blood Pressure Mean Blood Pressure Mean [Right Arm] 108 Blood Pressure Position [Right Arm] Semi-fowlers Pulse Oximetry 97 97 Oxygen Delivery Method Room Air Room Air Sepsis Recent Fever Within 48 Hours Sepsis New/Unexplained Change in Mental Status Sepsis Action Taken by Nursing Laboratory Data 11/17/24 17:20 11/17/24 20:52 Lab Results 11/17/24 11/17/24 11/17/24 Range/Units 17:20 17:20 17:40 WBC 14.75 H (4.8-10.8) K/ul RBC 3.52 L (4.70-6.10) M/uL Hgb 9.5 L (14.0-18.0) g/dl Hct 30.0 L (42.0-52.0) % MCV 85.2 (80.0-100.0) fL MCH 27.0 (25.0-34.0) pg MCHC 31.7 L (32.0-36.0) g/dL RDW Std Deviation 55.8 H (36.4-46.3) fL RDW Coeff of Jenny 18.9 H (11.5-14.5) % Plt Count 356 (130-400) K/uL MPV 9.3 L (9.4-12.4) fL Immature Gran % (Auto) 6.8 % Neut % (Auto) 78.2 % Lymph % (Auto) 6.8 % Boundary % (Auto) 6.3 % Eos % (Auto) 1.4 % Baso % (Auto) 0.5 % Neut # (Auto) 11.55 H (1.40-6.50) K/uL Lymph # (Auto) 1.00 L (1.20-3.40) K/uL [place] # (Auto) 0.93 H (0.11-0.59) K/uL Eos # (Auto) 0.20 (0.00-0.50) K/uL Baso # (Auto) 0.07 (0.00-0.20) K/uL Immature Gran # (Auto) 1.00 H (0.01-0.20) K/uL Sodium 129 L (136-145) mmol/L Potassium TNP TNP Chloride 93 L (98-107) mmol/L Carbon Dioxide 29 (21-32) mmol/L Anion Gap 7 (3-11) BUN 20 (6-23) mg/dl Creatinine 1.04 (0.6-1.4) mg/dl Est Cr Clr Drug Dosing 82.6 ml/min eGFR 73.50 BUN/Creatinine Ratio 19.2 (10-20) Glucose 120 H (70-99(Fasting)) mg/dl Calcium 8.6 (8.6-10.3) mg/dl TSH (0.300-4.500) uIu/ml Urine Color Yellow Urine Appearance Turbid A (Clear) Urine pH 7.5 (4.5-7.5) Ur Specific [place] 1.018 (1.000-1.030) Urine Protein 3+ H (Negative) Urine Glucose (UA) Negative (Negative) Urine Ketones Negative (Negative) Urine Blood 2+ H (Negative) Urine Nitrite Negative (Negative) Urine Bilirubin Negative (Negative) Urine Urobilinogen Negative (Negative) Ur Leukocyte Esterase 3+ H (Negative) Urine WBC (Auto) >50 H (0-5) /hpf Urine RBC (Auto) >20 H (0-2) /hpf U Hyaline Cast (Auto) >20 H (0-2) /lpf U Epithel Cells (Auto) 3-5 H (0-2) /hpf Urine Bacteria (Auto) 4+ H (None Seen) 11/17/24 11/17/24 Range/Units 20:52 Unknown WBC (4.8-10.8) K/ul RBC (4.70-6.10) M/uL Hgb (14.0-18.0) g/dl Hct (42.0-52.0) % MCV (80.0-100.0) fL MCH (25.0-34.0) pg MCHC (32.0-36.0) g/dL RDW Std Deviation (36.4-46.3) fL RDW Coeff of Jenny (11.5-14.5) % Plt Count (130-400) K/uL MPV (9.4-12.4) fL Immature Gran % (Auto) % Neut % (Auto) % Lymph % (Auto) % [place] % (Auto) % Eos % (Auto) % Baso % (Auto) % Neut # (Auto) (1.40-6.50) K/uL Lymph # (Auto) (1.20-3.40) K/uL [place] # (Auto) (0.11-0.59) K/uL Eos # (Auto) (0.00-0.50) K/uL Baso # (Auto) (0.00-0.20) K/uL Immature Gran # (Auto) (0.01-0.20) K/uL Sodium (136-145) mmol/L Potassium 4.5 Cancelled Chloride (98-107) mmol/L Carbon Dioxide (21-32) mmol/L Anion Gap (3-11) BUN (6-23) mg/dl Creatinine (0.6-1.4) mg/dl Est Cr Clr Drug Dosing ml/min eGFR BUN/Creatinine Ratio (10-20) Glucose (70-99(Fasting)) mg/dl Calcium (8.6-10.3) mg/dl TSH 3.498 (0.300-4.500) uIu/ml Urine Color Urine Appearance (Clear) Urine pH (4.5-7.5) Ur Specific [place] (1.000-1.030) Urine Protein (Negative) Urine Glucose (UA) (Negative) Urine Ketones (Negative) Urine Blood (Negative) Urine Nitrite (Negative) Urine Bilirubin (Negative) Urine Urobilinogen (Negative) Ur Leukocyte Esterase (Negative) Urine WBC (Auto) (0-5) /hpf Urine RBC (Auto) (0-2) /hpf U Hyaline Cast (Auto) (0-2) /lpf U Epithel Cells (Auto) (0-2) /hpf Urine Bacteria (Auto) (None Seen) Administered Medications Sodium Chloride (Nss) 1,000 mls @ 60 mls/hr IV .[id number] ONE Stop: 11/18/24 15:39 Last Admin: 11/17/24 23:00 Dose: 60 mls/hr Documented By: KIRILL Discontinued Medications Ceftriaxone Sodium (Rocephin) 1,000 mg in 50 mls @ 100 mls/hr IV NOW STA Stop: 11/17/24 21:54 Last Infusion: 11/17/24 22:18 Dose: Infused Documented By: Admin: 11/17/24 21:46 Dose: 100 mls/hr Documented By: KIRILL Imaging Data Radiologist's Impression: Chest X-Ray 11/17/24 21:44 Exam(s): XR CXR 1 VIEW EXAM: XR Chest, 1 View CLINICAL HISTORY: Reason for exam: hyponatremia. TECHNIQUE: Frontal view of the chest. COMPARISON: March 31, 2024 FINDINGS: Lungs: Unremarkable. No acute focal infiltrate or consolidation is seen. Pleural space: Unremarkable. No pneumothorax. Heart: Unremarkable. No cardiomegaly. Mediastinum: Unremarkable. Normal mediastinal contour. Bones/joints: Unremarkable. No acute fracture. Vasculature: The aortic arch is mildly calcified but unchanged. Upper abdomen: Unremarkable as visualized. No pneumoperitoneum under the diaphragm. IMPRESSION: No acute findings in the chest. Electronically signed by: Nasir Santa MD 11/17/24 23:25 PM Discharge Plan Visit Data Chief Complaint: Urinary Symptoms Stated Complaint: CLOUDY URIN ED Provider: Guy Barrow Discharge Problem: Acute UTI Patient Disposition: Admitted As Inpatient Discharge Instructions Interventions: ED Discharge Assessment Last Done: 11/18/24 00:12 Forms Stand Alone Forms: My [facility] Prescriptions Prescriptions: No Action tamsulosin 0.4 mg capsule 0.4 mg PO QAM folic acid 1 mg tablet 1 mg PO QAM methotrexate sodium 2.5 mg tablet 12.5 mg PO WK Hold Instructions: Resume on 04/11/24. Rx Instructions: take 5 tablet once a week on Thursday acetaminophen 325 mg Tablet 650 mg PO Q4H PRN (Reason: fever or pain) Qty: 60 0RF aspirin 81 mg Tablet,Delayed Release (Dr/Ec) 81 mg PO QAM Qty: 30 0RF furosemide 20 mg tablet 20 mg PO AMPM melatonin 1 mg Tablet,Chewable 1 mg PO HS PRN (Reason: Sleep) metoprolol succinate 25 mg tablet extended release 24 hr 25 mg PO QAM metoprolol succinate 25 mg tablet extended release 24 hr 37.5 mg PO QPM losartan 25 mg tablet 12.5 mg PO QAM rosuvastatin 5 mg tablet 5 mg PO QAM albuterol sulfate [Ventolin HFA] 90 mcg/actuation Hfa Aerosol Inhaler 2 puff inhalation Q6H PRN (Reason: shortness of breath or wheezing) Qty: 8.5 0RF Referrals Referrals: Rhianna Huitron DO [Primary Care Provider] -
[2024-11-17 18:09] LABS: Basophils # (auto) 0.07 K/uL (0.00-0.20); Basophils % (auto) 0.5 %; Eosinophils % (auto) 1.4 %; Immature Granulocytes % (auto) 6.8 %; Lymphocytes % (auto) 6.8 %; Monocytes # (auto) 0.93 K/uL (0.11-0.59); Monocytes % (auto) 6.3 %; Neutrophils # (auto) 11.55 K/uL (1.40-6.50); Neutrophils % (auto) 78.2 %
[2024-11-17 18:16] LABS: Anion Gap 7 (3-11); BUN Creatinine Ratio 19.2 (10-20); Blood Urea Nitrogen 20 mg/dl (6-23); Calcium 8.6 mg/dl (8.6-10.3); Carbon Dioxide 29 mmol/L (21-32); Chloride 93 mmol/L (98-107); Creatinine Clr Calc Pharmacy 82.6 ml/min; Glucose 120 mg/dl (70-99(Fasting)); Sodium 129 mmol/L (136-145)
[2024-11-17 18:33] LABS: Appearance Urine Turbid (Clear); Bacteria Urine Automated 4+ (None Seen); Bilirubin Urine Negative (Negative); Blood Urine 2+ (Negative); Cast Urine Automated >20 /lpf (0-2); Color Urine Yellow; Glucose Urine UA Negative (Negative); Ketones Urine Negative (Negative); Leukocyte Esterase Urine 3+ (Negative); Nitrite Urine Negative (Negative); Protein Urine 3+ (Negative); RBC Urine Automated >20 /hpf (0-2); Specific Gravity Urine 1.018 (1.000-1.030); Urobilinogen Urine Negative (Negative); WBC Urine Automated >50 /hpf (0-5); pH Urine 7.5 (4.5-7.5)
[2024-11-17 21:31] LABS: Potassium 4.5 mmol/L (3.5-5.1)
[2024-11-17] MEDS: cefTRIAXone SODIUM 1,000 MG/50 ML BAG IV STA (21:46)
--- NOTE | 2024-11-17 22:27 | History & Physical Report ---
Date of Service November 17, 2024 Assessment & Plan (1) Complicated UTI (urinary tract infection): Plan: Complicated UTI hx BPH with chronic indwelling Ingram catheter, metastatic prostate cancer s/p Lupron/chemoradiation, symphysis pubis osteomyelitis, puboprostatic fistula No sepsis for now Patient due for Ingram catheter exchange by [facility] urologist next week. Suprapubic catheter placement contemplated next month. Acute on chronic hyponatremia secondary to illness chronic systolic heart failure, patient has on the dry side hx CAD status post stent PA/PVCs hypertension, stable hyperlipidemia, on statin Rx DM 2 diet-controlled, well-controlled as of outpatient hemoglobin A1c of 5.11 May 2024 rheumatoid arthritis, home methotrexate currently on hold due to recurrent infections chronic anemia, hemoglobin at baseline past tobacco abuse Admit to [facility] Urine CS, Ceftriaxone Urology consult re: recurrent UTI, history chronic indwelling Ingram catheter, patient due for scheduled catheter change this month Careful correction of serum sodium with gentle IV hydration, hold home diuretic for now ISS BG goal 110-140, carb count coverage DVT prophylaxis. Lovenox subcu Full code Text document was generated using [employer] voice recognition software. It may contain grammatical or spelling errors. Kindly contact undersigned for clarification of any documentation item in question. History of Present Illness Chief Complaint: Weakness, cloudy urine Primary Care Provider: Rhianna Huitron DO History obtained from patient and records. Medical history significant for chronic systolic heart failure (EF 35 to 39%%, TTE 2023), CAD status post stent, PAF, history PVCs, hypertension, hyperlipidemia, DM 2 diet-controlled, BPH with chronic indwelling Ingram catheter, metastatic prostate cancer s/p Lupron/chemoradiation, symphysis pubis osteomyelitis, puboprostatic fistula, rheumatoid arthritis, chronic hyponatremia, chronic anemia (baseline hemoglobin of 9-10), past tobacco abuse. Last [facility] confinement May 2024 for secondary to septic shock secondary to c ommunity-acquired UTI, pubic symphysis osteomyelitis possible pelvic abscess. Patient transferred to [facility]. Pelvic abscess aspirated by IR. No urologic intervention during confinement. Monthly Ingram catheter changes at local [facility] urologist office since [facility] discharge. Recent outpatient [facility] urology visit last month. Patient anatomy not improving with chronic Ingram catheter as per note. Cystoscopy and open suprapubic tube placement contemplated next month. Patient urine noted to be cloudy today. Patient feeling weak. Denies chest pain, SOB, abdominal pain. IV ceftriaxone administered at the ER. Medical History as above Surgical History : Tonsillectomy/adenoidectomy, urologic procedures Family History : DM, PUD, RA Personal/Social history : Past tobacco abuse, no acute intake, retired [employer] employee Allergies Allergy/AdvReac Type Severity Reaction Status Date / Time pollen extracts Allergy Mild WATERY Verified 03/31/24 17:40 EYES, SNEEZING Sulfa (Sulfonamide Allergy Unknown CAN'T Verified 03/31/24 17:40 Antibiotics) REMEMBER KUN Inhibitors AdvReac Intermediate Cough Verified 03/31/24 17:40 alendronate sodium AdvReac Intermediate MUSCLE & Verified 03/31/24 17:40 [From Fosamax] JOINT PAIN, HEARTBURN, CONSTIPATION misoprostol AdvReac Intermediate Diarrhea Verified 03/31/24 17:40 Cgwqxcp-GCS-NyS Reductase AdvReac Intermediate CONSTIPATION/UPSET Verified 03/31/24 17:40 Inhibitor STOMACH [Asqyznc-Ggw-Qou Reductase Inhibitor] Home Medications Medication Instructions Recorded Confirmed Type folic acid 1 mg tablet 1 mg PO QAM 04/04/20 11/17/24 History methotrexate sodium 2.5 mg tablet 12.5 mg PO WK 04/15/23 11/17/24 History tamsulosin 0.4 mg capsule 0.4 mg PO QAM 04/15/23 11/17/24 History acetaminophen 325 mg tablet 650 mg (2 x 325 mg) PO Q4H PRN 09/03/23 11/17/24 Rx fever or pain #60 tabs aspirin 81 mg tablet,delayed 81 mg PO QAM #30 tabs 09/03/23 11/17/24 Rx release losartan 25 mg tablet 12.5 mg PO QAM 03/31/24 11/17/24 History rosuvastatin 5 mg tablet 5 mg PO QAM 04/01/24 11/17/24 History albuterol sulfate 90 mcg/actuation 2 puff inhalation Q6H PRN 04/08/24 11/17/24 Rx aerosol inhaler (Ventolin HFA) shortness of breath or wheezing #8.5 grams furosemide 20 mg tablet 20 mg PO AMPM 05/31/24 11/17/24 History melatonin 1 mg chewable tablet 1 mg PO HS PRN Sleep 11/17/24 11/17/24 History metoprolol succinate 25 mg 25 mg PO QAM 11/17/24 11/17/24 History tablet,extended release 24 hr metoprolol succinate 25 mg 37.5 mg PO QPM 11/17/24 11/17/24 History tablet,extended release 24 hr Past Med/Surg History Problem List (Updated 11/18/24 @ 08:36 by Art Mcdaniel MD) Complicated UTI (urinary tract infection) Acute UTI (Acute) Severe sepsis Osteomyelitis Tachycardia Acute hyponatremia (Acute) Generalized weakness (Acute) Frequent ventricular premature beats Acute cystitis (Acute) Generalized weakness (Acute) Substernal chest pain (Acute) Ventricular tachycardia (Acute) Coronary artery disease NSVT (nonsustained ventricular tachycardia) Unstable angina pectoris Rheumatoid arthritis Hypertension Urinary retention Morbid obesity Ventricular tachycardia Prostate cancer (Chronic 03/16/23) Arthritis of knee, left Medical History Degeneration of lumbosacral intervertebral disc Impaired fasting glucose Macular degeneration Fuchs' corneal dystrophy Frequent UTI Surgical History H/O colonoscopy History of prostate biopsy Family History Father Heart disease Stomach ulcer Mother Rheumatoid arthritis Social History Smoking Status: Former smoker Tobacco Type: Cigarettes Age Started Using Tobacco: 19; packs per day: 1; Second Hand Exposure: No; Do You Dip or Chew Tobacco: No; Hx Alcohol Use: No Hx Substance Use: No Preferred Language: Greenlandic Communication Ability: Effective Visual Impairment: No Limitations Hearing Ability: Normal Business Performance Advisor Required: No Beliefs That Will Affect Care: None marital status: / Current Living Situation: Family Current Living Situation Comment: Patient llives with Daughter who provides care for him current occupational status: 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 [employer] Other Information That Helps Us Care for You: No Feels Safe at Home: Yes Safety Concerns: Feels Safe At This Time Diet: regular during the past year weight has: remained stable Assistive Devices: Glasses, Walker and Wheelchair Review of Systems Review of Systems: As per HPI, all other systems reviewed and negative Physical Exam Physical Exam: GENERAL: Comfortable, pleasant, obese, no respiratory distress SKIN: Pallor, warm HEENT: Alopecia, pale palpebral conjunctivae, no ptosis, dry buccal mucosa NECK : Supple, no tenderness CHEST : CTA, no tenderness HEART : Diminished S1-S2, no obvious murmurs ABDOMEN: Some distention, nontender EXTREMITIES : No LE swelling/tenderness, palpable pulses, no other conspicuous deformities noted NEUROLOGIC : Coherent, no facial asymmetry, no other gross focality Results & Data Results & Data Vital Signs (Past 12 Hours) Vital Signs Temp Pulse Resp BP Pulse Ox O2 Del Method 11/17/24 21:06 90 11/17/24 20:00 88 20 100/70 97 11/17/24 19:18 91 H 18 124/59 L 97 11/17/24 18:36 88 24 129/65 97 11/17/24 17:33 20 131/68 98 11/17/24 17:08 89 11/17/24 16:52 36.5 C 93 H 16 110/67 97 Room Air Laboratory Results Laboratory Results WBC 14.75 K/ul (4.8-10.8) H 11/17/24 17:20 RBC 3.52 M/uL (4.70-6.10) L 11/17/24 17:20 Hgb 9.5 g/dl (14.0-18.0) L 11/17/24 17:20 Hct 30.0 % (42.0-52.0) L 11/17/24 17:20 MCV 85.2 fL (80.0-100.0) 11/17/24 17:20 MCH 27.0 pg (25.0-34.0) 11/17/24 17:20 MCHC 31.7 g/dL (32.0-36.0) L 11/17/24 17:20 RDW Std Deviation 55.8 fL (36.4-46.3) H 11/17/24 17:20 RDW Coeff of Jenny 18.9 % (11.5-14.5) H 11/17/24 17:20 Plt Count 356 K/uL (130-400) 11/17/24 17:20 MPV 9.3 fL (9.4-12.4) L 11/17/24 17:20 Immature Gran % (Auto) 6.8 % 11/17/24 17:20 Neut % (Auto) 78.2 % 11/17/24 17:20 Lymph % (Auto) 6.8 % 11/17/24 17:20 [place] % (Auto) 6.3 % 11/17/24 17:20 Eos % (Auto) 1.4 % 11/17/24 17:20 Baso % (Auto) 0.5 % 11/17/24 17:20 Neut # (Auto) 11.55 K/uL (1.40-6.50) H 11/17/24 17:20 Lymph # (Auto) 1.00 K/uL (1.20-3.40) L 11/17/24 17:20 [place] # (Auto) 0.93 K/uL (0.11-0.59) H 11/17/24 17:20 Eos # (Auto) 0.20 K/uL (0.00-0.50) 11/17/24 17:20 Baso # (Auto) 0.07 K/uL (0.00-0.20) 11/17/24 17:20 Immature Gran # (Auto) 1.00 K/uL (0.01-0.20) H 11/17/24 17:20 Sodium 129 mmol/L (136-145) L 11/17/24 17:20 Potassium Cancelled 11/17/24 Unknown Chloride 93 mmol/L (98-107) L 11/17/24 17:20 Carbon Dioxide 29 mmol/L (21-32) 11/17/24 17:20 Anion Gap 7 (3-11) 11/17/24 17:20 BUN 20 mg/dl (6-23) 11/17/24 17:20 Creatinine 1.04 mg/dl (0.6-1.4) 11/17/24 17:20 Est Cr Clr Drug Dosing 82.6 ml/min 11/17/24 17:20 eGFR 73.50 11/17/24 17:20 BUN/Creatinine Ratio 19.2 (10-20) 11/17/24 17:20 Glucose 120 mg/dl (70-99(Fasting)) H 11/17/24 17:20 Calcium 8.6 mg/dl (8.6-10.3) 11/17/24 17:20 Urine Color Yellow 11/17/24 17:40 Urine Appearance Turbid (Clear) A 11/17/24 17:40 Urine pH 7.5 (4.5-7.5) 11/17/24 17:40 Ur Specific [place] 1.018 (1.000-1.030) 11/17/24 17:40 Urine Protein 3+ (Negative) H 11/17/24 17:40 Urine Glucose (UA) Negative (Negative) 11/17/24:40 Urine Ketones Negative (Negative) 11/17/24 17:40 Urine Blood 2+ (Negative) H 11/17/24 17:40 Urine Nitrite Negative (Negative) 11/17/24:40 Urine Bilirubin Negative (Negative) 11/17/24 17:40 Urine Urobilinogen Negative (Negative) 11/17/24 17:40 Ur Leukocyte Esterase 3+ (Negative) H 11/17/24 17:40 Urine WBC (Auto) >50 /hpf (0-5) H 11/17/24 17:40 Urine RBC (Auto) >20 /hpf (0-2) H 11/17/24 17:40 U Hyaline Cast (Auto) >20 /lpf (0-2) H 11/17/24 17:40 U Epithel Cells (Auto) 3-5 /hpf (0-2) H 11/17/24 17:40 Urine Bacteria (Auto) 4+ (None Seen) H 11/17/24 17:40 Diagnostic Findings Chest x-ray as per my interpretation no congestion
[2024-11-17] MEDS ORDERED: PROMETHAZINE 6.25 MG/50.25 ML BAG IV PRN (22:30)
[2024-11-17] MEDS ORDERED: oxyCODONE HCL IR 5 MG TAB (IMMEDIATE RELEASE) PO PRN (22:30)
[2024-11-17] MEDS: SODIUM CHLORIDE 0.9% 1,000 ML IV ONE (23:00)
[2024-11-17 23:18] LABS: Thyroid Stimulating Hormone 3.498 uIu/ml (0.300-4.500)
--- NOTE | 2024-11-17 23:26 | XRay Report ---
Exam(s): XR CXR 1 VIEW EXAM: XR Chest, 1 View CLINICAL HISTORY: Reason for exam: hyponatremia. TECHNIQUE: Frontal view of the chest. COMPARISON: March 31, 2024 FINDINGS: Lungs: Unremarkable. No acute focal infiltrate or consolidation is seen. Pleural space: Unremarkable. No pneumothorax. Heart: Unremarkable. No cardiomegaly. Mediastinum: Unremarkable. Normal mediastinal contour. Bones/joints: Unremarkable. No acute fracture. Vasculature: The aortic arch is mildly calcified but unchanged. Upper abdomen: Unremarkable as visualized. No pneumoperitoneum under the diaphragm. IMPRESSION: No acute findings in the chest. Electronically signed by: Nasir Santa MD 11/17/24 23:25 PM
--- NOTE | 2024-11-17 23:46 | Urology Consultation ---
Date of Consultation November 17, 2024 Assessment & Plan (1) Acute cystitis: The patient is being admitted on the hospitalist service. From a urologic perspective we recommend a following: Maintain the patient's Ingram catheter for the present time. If it does become clogged manual flushing and irrigation can be employed Patient has been initiated on antibiotics in form of Rocephin. Antibiotic should continue and can be tailored based on patient's culture results as they become available Will not attempt to change the Ingram catheter at this time as the patient reports he requires cystoscopy with wire guidance. Ingram catheter exchange can be considered at a later time Serial labs to be followed Additional recommendations will be forthcoming based on his clinical course as it unfolds History of Present Illness Reason for Consultation: Chronic indwelling Ingram catheter with urinary tract infection History of Present Illness This is a 79-year-old male who presented to the emergency department at the urging of his family. Patient says that he has a chronic indwelling Ingram catheter and over the past several days he has had some increased amount of sediment in his catheter. The patient says that his Ingram catheter cannot be changed in a straightforward mannerhe notes that it has to be performed sometimes with the cystoscope and the aid of a wire by his urologist, Dr. Vinay Sexton. He notes that the catheter scheduled to be changed on 11/29/2024. The patient notes that he has also been running some intermittent fevers with temperatures as high as 99.5. He denies any rigors but does note occasional chills. He denies any back or flank pain. He denies any nausea or vomiting but does admit that his appetite appears to be somewhat decreased. Patient says that he does not have any suprapubic discomfort and feels that his Ingram catheter is draining appropriately. Since arrival to the emergency department the patient has had labs and imaging which independent reviewed. Chest x-ray shows no evidence of pneumonia. CBC revealed white blood cell count was elevated 14.7. Hemoglobin and hematocrit are 9.5 and 30.0. Platelet count was normal. Chemistry profile showed sodium is 129 with a potassium of 4.5. BUN and creatinine were both within normal range. The urinalysis showed turbid urine which was negative for nitrites but did have 3+ leukocyte esterase and pyuria with greater than 50 white blood cells per high-power field. The specimen is also noted to have 4+ bacteria. At the time of my interview he was resting comfortably in bed and he was in no distress. Allergies Allergy/AdvReac Type Severity Reaction Status Date / Time pollen extracts Allergy Mild WATERY Verified 03/31/24 17:40 EYES, SNEEZING Sulfa (Sulfonamide Allergy Unknown CAN'T Verified 03/31/24 17:40 Antibiotics) REMEMBER KUN Inhibitors AdvReac Intermediate Cough Verified 03/31/24 17:40 alendronate sodium AdvReac Intermediate MUSCLE & Verified 03/31/24 17:40 [From Fosamax] JOINT PAIN, HEARTBURN, CONSTIPATION misoprostol AdvReac Intermediate Diarrhea Verified 03/31/24 17:40 [id number] Reductase AdvReac Intermediate CONSTIPATION/UPSET Verified 03/31/24 17:40 Inhibitor STOMACH [Uogyarr-Tyy-Vuy Reductase Inhibitor] Home Medications Medication Instructions Recorded Confirmed Type folic acid 1 mg tablet 1 mg PO QAM 04/04/20 11/17/24 History methotrexate sodium 2.5 mg tablet 12.5 mg PO WK 04/15/23 11/17/24 History tamsulosin 0.4 mg capsule 0.4 mg PO QAM 04/15/23 11/17/24 History acetaminophen 325 mg tablet 650 mg (2 x 325 mg) PO Q4H PRN 09/03/23 11/17/24 Rx fever or pain #60 tabs aspirin 81 mg tablet,delayed 81 mg PO QAM #30 tabs 09/03/23 11/17/24 Rx release losartan 25 mg tablet 12.5 mg PO QAM 03/31/24 11/17/24 History rosuvastatin 5 mg tablet 5 mg PO QAM 04/01/24 11/17/24 History albuterol sulfate 90 mcg/actuation 2 puff inhalation Q6H PRN 04/08/24 11/17/24 Rx aerosol inhaler (Ventolin HFA) shortness of breath or wheezing #8.5 grams furosemide 20 mg tablet 20 mg PO AMPM 05/31/24 11/17/24 History melatonin 1 mg chewable tablet 1 mg PO HS PRN Sleep 11/17/24 11/17/24 History metoprolol succinate 25 mg 25 mg PO QAM 11/17/24 11/17/24 History tablet,extended release 24 hr metoprolol succinate 25 mg 37.5 mg PO QPM 11/17/24 11/17/24 History tablet,extended release 24 hr Patient History Medical History Degeneration of lumbosacral intervertebral disc Impaired fasting glucose Macular degeneration Fuchs' corneal dystrophy Frequent UTI Surgical History H/O colonoscopy History of prostate biopsy Family History Father Heart disease Stomach ulcer Mother Rheumatoid arthritis Social History Smoking Status: Former smoker Tobacco Type: Cigarettes Age Started Using Tobacco: 19; packs per day: 1; Second Hand Exposure: No; Do You Dip or Chew Tobacco: No; Hx Alcohol Use: No Hx Substance Use: No Preferred Language: [place] Communication Ability: Effective Visual Impairment: No Limitations Hearing Ability: Normal Medical Biller Required: No Beliefs That Will Affect Care: None marital status: / Current Living Situation: Family Current Living Situation Comment: Patient llives with Daughter who provides care for him current occupational status: retired current occupation: PA [employer] Feels Safe at Home: Yes Diet: regular during the past year weight has: remained stable Assistive Devices: Bedside Commode, Lift Chair, Raised Toilet Seat, Walker and Wheelchair Review of Systems Review of Systems: All systems reviewed & are unremarkable except as noted in HPI & below Physical Exam Constitutional: WD/WN, vitals as above Eyes: Wears glasses ENMT: Ears: no hearing impairment and no external ear abnormality Mouth: no oropharynx abnormality Neck: trachea midline Respiratory: normal respiratory effort; no respiratory distress and no labored breathing Cardiovascular: Rate/Rhythm: regular rate and regular rhythm Gastrointestinal (Abdomen): Abdomen is soft and nondistended. There are no signs of peritonitis. There is no suprapubic discomfort with palpation Musculoskeletal: No calf tenderness Skin: no rashes Neurologic: moves all extremities Psychiatric: A+Ox3, euthymic affect Genitourinary: No CVA tenderness with percussion bilaterally. Patient has an indwelling Ingram catheter which appears to be draining clear yellow urine with some sediment in it. The Ingram does appear to be patent and draining appropriately Results & Data Vital Signs (Past 12 Hours) Vital Signs Temp Pulse Resp BP Pulse Ox O2 Del Method 11/17/24 22:00 86 16 121/59 L 97 11/17/24 21:06 90 11/17/24 21:00 80 20 112/73 97 11/17/24 20:00 88 20 100/70 97 11/17/24 19:18 91 H 18 124/59 L 97 11/17/24 18:36 88 24 129/65 97 11/17/24 17:33 20 131/68 98 11/17/24 17:08 89 11/17/24 16:52 36.5 C 93 H 16 110/67 97 Room Air PG Care Time/CCT Total # of Minutes Spent Total Time Spent with Patient: Total time spent is greater than 50% in coordination of care (as documented) at patient's floor/unit and/or counseling patient: Coding Level of Care Code 26644 INT INP/OBS CARE 3/75MIN Diagnoses Acute cystitis N30.00
[2024-11-18] MEDS ORDERED: DEXTROSE 50% 50 ML SYRINGE IV PRN (00:34)
[2024-11-18] MEDS ORDERED: CARBOHYDRATES FOR HYPOGLYCEMIA PO PRN (00:34)
[2024-11-18] MEDS ORDERED: GLUCOSE 10 TAB/TUBE PO PRN (00:34)
[2024-11-18] MEDS ORDERED: GLUCAGON FOR INJ 1 MG VIAL SQ PRN (00:34)
[2024-11-18] MEDS ORDERED: GLUCOSE 40% GEL 15 GM TUBE PO PRN (00:34)
[2024-11-18] MEDS: INSULIN ASPART PER UNIT CHARGE SC SCH ×2 (00:48→09:00)
--- OUTSIDE RECORDS SUMMARY | 2024-11-18 02:15 | External Medical Summary | Summary of Care ---
Author Name Unknown Organization [facility] Address [address] [place] [address] Phone [phone] Care Team Providers Care Crm Solution Architect Name Role Phone Rhianna Huitron DO Primary Care Provider [phone] Encounter Details Date Type Department Care Team (Late st Contact Info) Description 10/31/2024 12:00 PM EDT Telemedicine Hematology/Oncology [facility] [address] [facility] [place] [address] Korin Fisher CRNP [address] [facility] [place] [address] Prostate cancer (HCC)*; Anemia, unspecified type Allergies Active Allergy Reactions Criticality Noted Date Comments Brent Inhibitors Cough Low 11/26/2017 Alendronate Sodium Muscle pain 04/11/2019 Heartburn, constipation, joint pain Misoprostol Diarrhea 08/08/2003 Niacin Er (Antihyperlipidemic) 11/26/2010 Gas, hot flashes Pollen 01/01/2018 Watery eyes, sneezing Pravastatin 02/26/2007 Upset stomach, all .Statins Simvastatin 02/26/2007 Upset stomach documented as of this encounter (statuses as of 11/13/2024) Medications ASPIR-81 81 MG PO TBEC 1 TABLET DAILY 0 6 Active Acetaminophen 325 MG Oral Tablet (Tylenol) 2 Tablets. 4 Active Folic Acid 1 MG Oral TabletIndicatio ns:Arthritis, rheumatoid (HCC) TAKE 1 TABLET BY MOUTH EVERY DAY IN THE MORNING 90 Tablet 3 4 Active Tamsulosin HCl 0.4 MG Oral Capsule (Flomax) TAKE 1 CAPSULE BY MOUTH EVERY MORNING 90 Capsule 3 4 Active Losartan Potassium 25 MG Oral [...] Tablets by mouth at bedtime. 4 Active Sodium Chloride Flush 0.9 % Intravenous SolutionIndicat ions:Osteomyeli tis of symphysis pubis ([facility]) Administer 10 mL intravenously 4 times a day as needed for Other. Flush PICC before and after IV administration. Single use syringe: discard after use. 900 mL 4 025 Active Additional Information Patient not taking.Reported on 10/17/2024 Methotrexate 2.5 MG Oral Tablet Take 5 Tablets by mouth once a week. 65 Tablet 1 4 Active Furosemide 20 MG Oral Tablet (Lasix)Indicati ons:FREDY (acute kidney injury) (HCC),Hyponatre cristela Take 1 Tablet by mouth in the morning and 1 Tablet before bedtime. 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 06/02/2024 S/P angioplasty with stent 12/18/2023 Chronic kidney [...] BMI 35-39 ISOLATED (SEE ACTUAL BMI) 01/14/2010 Overview (01/14/2010): Per Obesity Protocol, #19 Encounter for long-term (current) use of medicat ions 11/22/2009 Overview (05/26/2017): ICD-10 update of inactive term Impaired fasting glucose 12/16/2005 Macular degeneration 12/02/1999 DISC DIS [id number] documented as of this encounter (statuses as of 11/13/2024) Resolved Problems Problem Noted Date Diagnosed Date [...] 07/03/2012 08/18/2012 Benign neoplasm of colon 05/10/2007 Overview (05/13/2007): adenomatous repeat colonoscopy in 5 years ARTHRITIS,RHEUMATOID 07/07/2006 016 [id number] 07/07/200611/01 Overview (11/16/2009): Renamed Per Clinical Trials Billing Project. Pt is a participant in the [facility] (Consortium of Rheumatology Researchers of [place]) national data collection study. For further information please call Dr Hari Clark or Julia White, RN, CCRC at [phone] [facility] RESEARCH OTHER*[id number] 07/07/2006 01/28/2010 Overview (11/16/2009): Renamed Per Clinical Trials Billing Project. Pt is a participant in the [facility] (Consortium of Rheumatology Researchers [place]) national data collection study. For further information please call Dr Hari Clark or Julia White, RN, CCRC at [phone] ADVANCE DIRECTIVE INFORMATION 05/19/2006 06/06/2024 Overview (05/19/2006): Yes-advised to bring copy in to be scanned into EMR. Hearing loss 12/02/1999 03/29/2013 documented as of this encounter (statuses as of 11/13/2024) Immunizations Name Administration Dates Next Due COVID-19 mRNA, LNP-s, No Pre serve, 2-Dose Series (Prescribe Wellness) 06/14/2021,10/10/2020,09/12/2020 COVID-19, LNP-s, No Preserve , Yousuf-sucrose, Ages 12+ (Pfizer) 12/25/2021 Covid-19, Mrna, Lnp-s, Pf, B ivalent, 30 Mcg, IM, 12 yrs and above (Pfizer) 05/23/2022 Pneumococcal Conjugate Vacc, 13 Valent (Prevnar) 10/02/2014 Pneumococcal Polysaccharide PPV23 (Pneumovax) 09/01/2011,07/07/2006 Season Influenza, Quad, PF, Adjuvanted, 65+ Yrs, IM (FLUAD) 04/17/2020 Seasonal Influenza Vac., MDV , IM, 0.5 mL (Fluzone) 04/10/2014,05/16/2013,04/14/2012,04/24,05/20/2010,04/05/2009,05/11/2008 ,06/07/2007,07/07/2006 Seasonal Influenza, High Dos e, Trivalent, PF, IM (Fluzone HD) 06/09/2024 Seasonal Influenza, PF, 6 M & above, IM , (FluLaval or Fluzone) 05/06/2018 Seasonal Influenza, Quadriva lent Hd (Fluzone Hd) 05/08/2022,05/07/2021 Seasonal Influenza, Quadriva lent, No Preserve, IM 04/21/2017,04/16/2016,05/04/2015 Seasonal Influenza, Trivalen t, Adjuvanted, 65+ YRS, PF, (Fluad) 04/19/2019 TDAP (age 10 and older)(Boostrix) 12/04/2016 TDAP, Age 7 and older, IM (Adacel) 12/03/2006 Varicella Zoster Vaccine Brandt lt (Zostavax) 10/02/2014 Zoster Vaccine Recombinant (Shingrix) 01/05/2020 ,09/02/2019 [...] Assigned at Male 10/19/2018 8:26 AM EDT Legal Sex Male 5:17 AM EST Gender Identity Male 10/19/2018 8:26 AM EDT Sexual Orientation Straight 10/19/2018 8: 26 AM EDT Occupation Industry Job Start Date Job End Date Not on file Not on file Not on file Not on file documented as of this encounter Functional Status * Are you deaf or do you have serious difficulty hearing? Answer Date of Assessment Author No 06/01/2024 11:43 PM Lucita Harrell RN * Are you blind or do you have serious difficulty seeing, even when wearing glasses? Answer Date of Assessment Author No 06/01/2024 11:43 PM Lucita Harrell RN * Do you have serious difficulty walking or climbing stairs? (5 years old or older) Answer Date of Assessment Author Yes 06/01/2024 11:43 PM Lucita Harrell RN * Do you have difficulty dressing or bathing? (5 years old or older) Answer Date of Assessment Author Yes 06/01/2024 11:43 PM Lucita Harrell RN * Because of a physical, mental, or emotional condition, do you have difficulty doing errands alone such as visiting a doctor’s office or shopping? (15 years old or older) Answer Date of Assessment Author Yes 06/01/2024 11:43 PM Lucita Harrell RN documented as of this encounter Mental Status * Because of a physical, mental, or emotional condition, do you have serious difficulty concentrating, remembering, or making decisions? (5 years old or older) Answer Entry Date Author No 06/01/2024 11:43 PM Lucita Harrell RN documented in this encounter Progress Notes * Korin Fisher CRNP - 10/31/2024 12:06 PM EDT Hematology/Oncology In-Home Telemedicine Note [facility] Name: Markus Wharton Date: 10/31/2024 CHIEF COMPLAINT: Markus Wharton is a 79 year old male patient of Dr. Patrice Puente completing an in-home telemedicine follow-up visit. Oncology history copied from patient chart, confirmed with patient. HEMATOLOGY/ONCOLOGY DIAGNOSIS: Prostate cancer, Evens score 4+5, right iliac chain lymph node measuring about 2 cm in the imaging study. PSA was around 8.49 in December 2022 DATE OF DIAGNOSIS: 03/16/23 TREATMENT HISTORY: He completed radiation treatment at [facility] on 06/08/2023. -could not tolerate Casodex, he took It for about 1 week before that but he stopped because of somedizziness and some noticed some blood in the stool which may not be related to that. Zytiga and prednisone combination. (Started on 04/27/2024 - 09/01/2023) -discontinued during admission at [facility] for acute NV, post stent placement. CURRENT TREATMENT: Received 1st [...] Ref Rng 12/10/2022 04/10/2023 06/08/2023 09/09/2023 11/06/2023 12/25/2023 03/21/2024 PSA <4.10 ng/mL 8.49 (H) 4.38 (H) 0.19 0.10 0.06 0.05 0.04 Interval History: [facility] COURSE 06/01/24 - 06/10/24 (focused): Markus Wharton is a 79-year-old male with a past medical history of CAD, HFrEF (EF 35 - 40%), hypertension, metastatic prostate cancer (status post palliative radiation and Lupron with chronic indwelling Bautista catheter), BPH, RA, prediabetes, CKD 3A, hyperlipidemia, known puboprostatic fistula whowas initially admitted to the ICU for septic shock. Patient subsequently weaned off of vasopressorsand transferred to the general medical floor. Evaluated by Urology and Infectious Disease while in ICU. Urology is not recommending any acute urologic intervention during hospitalization at this time. Infectious Disease is following and making antibiotic recommendations. IR aspirated abscess 06/06. 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 U cx (05/31) OSH: Streptococcus dysgalactiae, C striatum/simulans sp U cx (06/01) OSH: 3 types of organisms Evaluated by Urology. No interventions, maintain Bautista catheter and follow up as an outpatient ID following - plan for ceftriaxone/vancomycin till 07/13 with weekly labs. Follow up finalized cultures from IR aspirate. PICC line placed CAD and NV s/p AFSANEH to LAD in 08/2023 Chronic HFrEF (EF 35-40%) HTN/HLD: Euvolemic on exam at the time of discharge. Significantly elevated trops on admission, felt to be demand related to shock on admission. Had no symptoms to suggest ACS. TTE does have further reduced EF and WMA. Continue WIDE AREA NETWORK ADMINISTRATOR aspirin & plavix and other WIDE AREA NETWORK ADMINISTRATOR cardiac medications as below and should follow up with his regular jeweler apprentice. He was evaluated by Cardiology while at [facility] Reported AFib in the ER at [facility] Strips are not available. Per Cardiology note at [facility], seems to have been sinus tachycardia. There has been no episode of AFib at [facility]. He is being discharged with a Zio patch forfurther evaluation. To follow up with his jeweler apprentice Acute on chronic hyponatremia, SIADH: Sodium remained stable and 134 at the time of discharge Rheumatoid arthritis: WIDE AREA NETWORK ADMINISTRATOR methotrexate being held in the setting of active infection. This was discussed with his regularrheumatologist as well. To follow up with his fixed route operator for resumption. Stage III Ulcer, Gluteal Folds: Home health arranged; continue Wound Care at home and follow up in the [facility]ound Care [facility] He was discharged in a hemodynamically and pulmonary stock stable condition and will follow up with his PCP, Infectious diseases, Urology, Hematology and Oncology another services as above. long term facility was offered but the patient preferred to go home with home health stating that he wasat his baseline mobility. Family providing support. CT A/P 06/01/24: IMPRESSION: 1. Findings consistent with an extensive infectious process involving the prostate, seminal vesicles, bladder, symphysis pubis and adjacent soft tissues with multiple locules of extraluminal gas and a 6.3 x 1.5 cm parasymphyseal collection consistent with an abscess. Associated erosion of the medial bilateral pubic bones with widening of the symphysis consistent with osteomyelitis. A gas-forming infectious process cannot be excluded. Urology consultation is recommended. The findings will be called/faxed to the ordering provider at time of dictation. 2. Malpositioned Bautista. The Bautista balloon projects over the apex of the prostate and a portion of the catheter extends into the symphysis pubis. 3. Distended bladder with moderate bilateral hydroureteronephrosis which has developed since prior CT. 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 Has bautista catheter still in place. Plan to have suprapubic catheter placed in December at [facility]. Lab results 10/12/24 reviewed: Hgb improving at 10.4 CMP unremarkable PSA undetectable Will continue to hold Zytiga and prednisone at this time, he will continue to have Lupron therapy under the guidance of Dr. Sexton. Patient is unsure when last injection was received. Will send message to Urology to clarify. Will consider for restarting Zytiga and prednisone if he has significant rise in the PSA level in the future. RTC in six months with provider with cbc/diff, cmp and psa Patient location: HOME. I was in a hospital or clinic location. After connecting through televideo,patient was verified with two unique identifiers. Patient (or authorized legal traffic representative) was then informed that this was a Telemedicine visit and being conducted confidentially over secure lines. Methods to assure confidentiality were taken. Patient acknowledged consent and understanding of pr ivacy and security of the Telemedicine visit. The patient agreed to participate. The total time spent [id number] via in-home televideo with the patient/family was 20 minutes; 15 minutes were spent counseling regarding the plan of care, treatment and other issues; representing > 50% of the encounter. INTERVAL HISTORY: Markus Wharton is a 79 year old male with a history as outlined above. Being contacted for an in-home telemedicine follow-up visit today. Continues to recover from sepsis. Continues to feel very weak but better than it was. Getting around the house with a walker. On December 28 planning to have a suprapubic catheter placed per Urology at [facility]. Trying to put weight back on. Drinking an Ensure daily. Denies pain. Review of patient's allergies indicates: Allergen Reactions Fosamax [Alendronate Sodium] Muscle pain Heartburn, constipation, joint pain Misoprostol Diarrhea Niaspan [Niacin Er (Antihyperlipidemic)] Gas, hot flashes Pollen Watery eyes, sneezing Pravastatin Upset stomach, all .Statins Simvastatin Upset stomach Brent Inhibitors Cough Current Outpatient Medications Medication Sig Dispense Refill ASPIR-81 81 MG PO TBEC 1 TABLET DAILY 0 Acetaminophen 325 MG Oral Tablet (Tylenol) 2 Tablets. Folic Acid 1 MG Oral Tablet TAKE 1 TABLET BY MOUTH EVERY DAY IN THE MORNING 90 Tablet 3 Tamsulosin HCl 0.4 MG Oral Capsule (Flomax) TAKE 1 CAPSULE BY MOUTH EVERY MORNING 90 Capsule 3 Losartan Potassium 25 MG Oral Tablet (Cozaar) One half tablet by mouth daily 45 Tablet 3 Rosuvastatin Calcium 5 MG Oral Tablet (Crestor) TAKE 1 TABLET BY MOUTH EVERY DAY IN THE MORNING 90 Tablet 3 Albuterol Sulfate HFA 108 (90 Base) MCG/ACT Inhalation Aerosol Solution Inhale 1 Puff by mouth every 6 hours as needed for Wheezing. Melatonin 3 MG Oral Tablet Take 2 Tablets by mouth at bedtime. Metoprolol Succinate ER 25 MG Oral Tablet Extended Release 24 Hour (toPROL XL) Take 1 Tablet by mouth in the morning and 1 Tablet before bedtime. 180 Tablet 1 Sodium Chloride Flush 0.9 % Intravenous Solution Administer 10 mL intravenously 4 times a day as needed for Other. Flush PICC before and after IV administration. Single use syringe: discard after use. (Patient not taking: Reported on 10/17/2024) 900 mL 0 Methotrexate 2.5 MG Oral Tablet Take 5 Tablets by mouth once a week. 65 Tablet 1 Furosemide 20 MG Oral Tablet (Lasix) Take 1 Tablet by mouth in the morning and 1 Tablet before bedtime. 60 Tablet 5 No current facility-administered medications for this visit. Past Medical History: Diagnosis Date Arthritis, rheumatoid (HCC) Benign neoplasm of colon 05/10/07 adenomatous repeat colonoscopy in 5 years Degeneration of lumbosacral intervertebral disc Elevated blood pressure, situational Fuchs' corneal dystrophy 10/19/2018 Impaired fasting glucose Macular degeneration Morbid (severe) obesity due to excess calories (HCC) 08/19/2017 REVIEW OF SYSTEMS: See interval history, otherwise WNL OBJECTIVE: Vital signs not available for review at time of call Wt Readings from Last 5 Encounters: 10/17/24 113.4 kg (250 lb) 06/10/24 131.1 kg (289 lb) 12/25/23 (!) 137.9 kg (304 lb) 12/18/23 135.6 kg (299 lb) 12/08/23 134.2 kg (295 lb 12.8 oz) PHYSICAL EXAM: N/A, in-home telemedicine visit LABS: Results for orders placed or performed in visit on 10/12/24 COMPREHENSIVE METABOLIC PANEL Result Value Ref Range BUN 18 6 - 20 mg/dL CREATININE 1.0 0.6 - 1.2 mg/dL EGFR 76 >=60 mL/min SODIUM 130 (L) 135 - 146 mmol/L POTASSIUM 4.3 3.5 - 5.1 mmol/L CHLORIDE 91 (L) 98 - 107 mmol/L CO2 28 22 - 32 mmol/L ANION GAP 11 7 - 15 mmol/L GLUCOSE 126 (H) 70 - 120 mg/dL Albumin 3.3 (L) 3.8 - 5.0 g/dL AST 16 10 - 50 U/L Alkaline Phosphatase 99 35 - 130 U/L Bilirubin, Total 0.4 <=1.2 mg/dL CALCIUM 9.6 8.4 - 10.2 mg/dL Protein 7.5 6.0 - 8.3 g/dL ALT 7 (L) 10 - 50 U/L PSA Result Value Ref Range PSA <0.02 <4.10 ng/mL CBC Result Value Ref Range WBC 6.28 4.00 - 10.80 K/uL RBC 3.73 4.50 - 5.25 M/uL HGB 10.4 (L) 14.0 - 16.8 g/dL HCT 32.8 (L) 40.0 - 48.4 % MCV 87.9 82.0 - 99.5 fL MCH 27.9 27.0 - 34.0 pg MCHC 31.7 32.0 - 36.0 g/dL RDW 17.8 11.5 - 15.5 % PLT 336 140 - 400 K/uL MPV 9.5 6.6 - 11.1 fL DIFFERENTIAL, AUTOMATED Result Value Ref Range WBC 6.28 4.00 - 10.80 K/uL Neutrophils % 83.6 (H) 40.0 - 75.0 % Lymphocytes % 8.1 (L) 18.0 - 42.0 % Monocytes % 5.1 1.0 - 11.0 % Eosinophils % 3.0 0.0 - 6.0 % Basophils % 0.2 0.0 - 2.0 % Absolute Neutrophils 5.25 1.80 - 7.70 K/uL Absolute Lymphocytes 0.51 (L) 1.00 - 4.80 K/ul Absolute Monocytes 0.32 0.00 - 1.10 K/uL Absolute Eosinophils 0.19 0.00 - 0.70 K/uL Absolute Basophils 0.01 0.00 - 0.20 K/uL *Note: Due to a large number of results and/or encounters for the requested time period, some results have not been displayed. A complete set of results can be found in Results Review. Please, see top of note for IMPRESSION and PLAN. SHEEBA Jean-Baptiste documented in this encounter Plan of Treatment Upcoming Encounters Date Type Department Care Team (Latest Contact Info) Description 11/23/2024 9:00 AM EDT Cardiac Studies Cardiac Studies, [facility] [address] [phone] 11/29/2024 3:00 PM EDT Procedure Only Urology, [facility] [address] [phone] Vinay Sexton MD [address] [address] 12/28/2024 2:10 PM EDT Hospital Encounter OR [facility], Operating Room, [facility] - 4th Floor [address] [place] [phone] Vinay Sexton MD [address] [id number] 12/28/2024 2:10 PM EDT - 12/28/2024 3:26 PM EDT Surgery OR [facility], Operating Room, [facility] - 4th Floor [address] [place] [phone] Vinay Sexton MD [address] [address] CYSTOURETHROSCOPY 01/09/2025 2:45 PM EDT Office Visit Urology, [facility] [address] [place] [phone] Vinay Sexton MD [address] [address] 01/23/2025 3:00 PM EDT Procedure Only Urology, [facility] [address] [place] [phone] Vinay Sexton MD [address] [address] 01/24/2025 10:00 AM EDT Office Visit Cardiology, [facility] [address] [place] [phone] Dmitri Greenfield DO [address] [place] [address] 03/10/2025 10:20 AM EDT Office Visit Nephrology, [address] [place] [address] Abhinav Dawson MD [address] [facility] [place] [id number] 03/21/2025 11:45 AM EDT Telemedicine Urology, [facility] [address] [place] [phone] Vinay Sexton MD [address] [address] Scheduled Procedures Name Priority Associated Diagnoses Date/Ti me CYSTOURETHROSCOPY Prostate cancer (HCC) Obstructive uropathy Vesical fistula 12/28/2024 2:10 PM EDT ASPIRATION OF BLADDER BY INSERTION OF SUPRAPUBIC CATHETER Prostate cancer (HCC) Obstructive uropathy Vesical fistula 12/28/2024 2:10 PM EDT COLONOSCOPY FLEXIBLE PROXIMA L DIAGNOSTIC Recall Hx of colonic polyps Health Maintenance Due Date Last Done Comments Depression Screening 1957 Adult Wellness Visit 03/16/2020 03/16/2019 DXA Scan 01/10/2021 01/10/2019, 12/2005, 07/07/2006 Albumin/Creatinine Ratio 04/10/2023 04/10/2022, 10/2006 *BISPHONATE OR OTHER ACCEPTABLE MEDICATION NEEDED FOR OSTEOPOROSIS (REFER TO SMARTSET #1146) 04/29/2023 Colonoscopy 01/22/2024 01/21/2019, 01/02, 05/10/2013, Additional history exists COVID-19 Vaccine ( season) 2024 05/23/2022, 12/25/2021, 12/25/2021, Additional history exists GFR 04/14/2025 10/12/2024, 04/2024, 07/04/2024, Additional history exists HbA1c 06/02/2025 06/02/2024, 0 12/2023, 06/22/2023, Additional history exists CKD PHOS USE SMARTSET 49598 06/06/20250 11/2023, 06/05/2024, 06/04/2024, Additional history exists CKD HGB USE SMARTSET 60115 10/12/202510/12, 10/12/2024, 07/11/2024, Additional history exists DTap/Tdap Vaccines (3 - Td or Tdap) 12/04/2026 12/04/2016, 12/03/2006, 12/15/1996, Additional history exists Pneumococcal Vaccine: 50+ Years Completed 10/02/2014, 09/01/2011, 07/07/2006 RETIRED - COLONOSCOPY-EVERY 5 YRS AGES 18-100 Discontinued 01/21/2019, 01/21/2019, 05/10/2013, Additional history exists Zoster Vaccines Completed 09/03/2020, 11/2019, 09/02/2019, Additional history exists Diabetic Foot Exam Discontinued 12/18/2023, 12/24/2022 Diabetic Eye Exam Discontinued 02/01/2024, , 01/30/2022, Additional history exists VITAMIN D LEVEL ONCE IN A LIFETIME-USE SMARTSET# [id number] Completed 03/21/2024, 12/25/2023, 05/27/2021, Additional history exists Influenza Vaccine (FLU shot) Completed 06/09/2024, 05/08/2022, 05/07/2021, Additional history exists HPV (Gardasil) Vaccine Aged Out No lo nger eligible based on patient's age to complete this topic Hepatitis B Vaccine Aged Out No longe r eligible based on patient's age to complete this topic MENINGOCOCCAL (MENACTRA/MENVEO) Aged Out No longer eligible based on patient's age to complete this topic Meningitis B Vaccine (Bexsero/Trumemba) Aged Out No longer eligible based on patient's age to complete this topic documented as of this encounter Medical Devices Not on filedocumented as of this encounter Visit Diagnoses Diagnosis Prostate cancer (HCC) Malignant neoplasm of prostate Obstructive uropathy Urinary obstruction, unspecified Vesical fistula Vesical fistula, not elsewhere classified Prostate cancer (HCC)- Primary Malignant neoplasm of prostate Anemia, unspecified type Prostate cancer (HCC) Malignant neoplasm of prostate Obstructive uropathy Urinary obstruction, unspecified Vesical fistula Vesical fistula, not elsewhere classified documented in this encounter Advance Directives * Full Code (Latest Code Status on File) Date Activated Date Inactivated Comments 06/01/2024 11:10 PM 06/10/2024 6:36 PM This order reflects the patients wishes and were consensually agreed upon. Question Answer Comments Discussion of Advance Direct teo occurred with: Not Discussed due to patient's condition Care Teams Crm Solution Architect Relationship Specialty Start Date End Date Rhianna Huitron DO [address] [phone] PCP - General Family Medicine 09/15/24 documented as of this encounter
--- OUTSIDE RECORDS SUMMARY | 2024-11-18 02:15 | External Medical Summary | Summary of Care ---
Author Name Unknown Organization [facility] Address [address] [place] [address] Phone [phone] Care Team Providers Care Chaperon Name Role Phone Rhianna Huitron DO Primary Care Provider [phone] Reason for Visit * Reason Onset Date Comments Appointment 10/25/2024 SPT at [facility] Encounter Details Date Type Department Care Team (Late st Contact Info) Description 10/25/2024 Telephone Urology, [facility] [address] [facility] [place] [address] Vinay Sexton MD [address] [place] [address] Appointment (SPT at [facility]) Allergies Active Allergy Reactions Criticality Noted Date Comments Brent Inhibitors Cough Low 11/26/2017 Alendronate Sodium Muscle pain 04/11/2019 Heartburn, constipation, joint pain Misoprostol Diarrhea 08/08/2003 Niacin Er (Antihyperlipidemic) 11/26/2010 Gas, hot flashes Pollen 01/01/2018 Watery eyes, sneezing Pravastatin 02/26/2007 Upset stomach, all .Statins Simvastatin 02/26/2007 Upset stomach documented as of this encounter (statuses as of 10/28/2024) Medications ASPIR-81 81 MG PO TBEC 1 TABLET DAILY 0 06/19/20 06 Active Acetaminophen 325 MG Oral Tablet (Tylenol) 2 Tablets. 09/03/19 24 Active Folic Acid 1 MG Oral TabletIndications: Arthritis, rheumatoid (HCC) TAKE 1 TABLET BY MOUTH EVERY DAY IN THE MORNING 90 Tablet 3 09/21/19 24 Active Tamsulosin HCl 0.4 MG Oral Capsule (Flomax) TAKE 1 CAPSULE BY MOUTH EVERY MORNING 90 Capsule 3 12/23/19 24 Active Losartan Potassium 25 MG Oral Tablet (Cozaar) One half tablet by mouth daily 45 Tablet 3 03/17/20 24 Active Rosuvastatin Calcium 5 MG Oral Tablet (Crestor) TAKE 1 TABLET BY MOUTH EVERY DAY IN THE MORNING 90 Tablet 3 05/04/20 24 Active Albuterol Sulfate HFA 108 (90 Base) MCG/ACT Inhalation Aerosol Solution Inhale 1 Puff by mouth every 6 hours as needed for Wheezing. 04/08/20 24 Active Melatonin 3 MG Oral Tablet Take 2 Tablets by mouth at bedtime. 04/08/20 24 Active Metoprolol Succinate ER 25 MG Oral Tablet Extended Release 24 Hour (toPROL XL)Indications:NSV T (nonsustained ventricular tachycardia) ([facility]),Non-ischemic cardiomyopathy ([facility]),Chronic HFrEF (heart failure with reduced ejection fraction) ([facility]) Take 1 Tablet by mouth in the morning and 1 Tablet before bedtime. 180 Tablet 1 05/31/20 24 Active Sodium Chloride Flush 0.9 % Intravenous SolutionIndication s:Osteomyelitis of symphysis pubis ([facility]) Administer 10 mL intravenously 4 times a day as needed for Other. Flush PICC before and after IV administration. Single use syringe: discard after use. 900 mL 07/08/20 24 025 Active Additional Information Patient not taking.Reported on 10/17/2024 Methotrexate 2.5 MG Oral Tablet Take 5 Tablets by mouth once a week. 65 Tablet 1 07/18/20 24 Active Furosemide 20 MG Oral Tablet (Lasix)Indications :FREDY (acute kidney injury) ([facility]),Hyponatremia Take 1 Tablet by mouth in the morning and 1 Tablet before bedtime. 60 Tablet 5 10/05/19 25 Active documented as of this encounter (statuses as of 10/28/2024) Active Problems Problem Noted Date Diagnosed Date [...] glucose 12/16/2005 Macular degeneration 12/02/1999 DISC DIS [id number] documented as of this encounter (statuses as of 10/28/2024) Resolved Problems Problem Noted Date Diagnosed Date [...] colonoscopy in 5 years ARTHRITIS,RHEUMATOID 07/07/2006 016 [id number] 07/07/200611/01 Overview (11/16/2009): Renamed Per Clinical Trials Billing Project. Pt is a participant in the [employer] ([employer]ortium of [employer] [place]) national data collection study. For further information please call Dr Hari Clark or Julia White, RN, CCRC at [phone] [facility] RESEARCH OTHER*[id number] 07/07/2006 01/28/2010 Overview (11/16/2009): Renamed Per Clinical Trials Billing Project. Pt is a participant in the [employer] ([employer]ortium [employer] [place]) national data collection study. For further information please call Dr Hari Clark or Julia White, RN, CCRC at [phone] ADVANCE DIRECTIVE INFORMATION 05/19/2006 06/06/2024 Overview (05/19/2006): Yes-advised to bring copy in to be scanned into EMR. Hearing loss 12/02/1999 03/29/2013 documented as of this encounter (statuses as of 10/28/2024) Immunizations Name Administration Dates Next Due COVID-19 mRNA, LNP-s, No Pre serve, 2-Dose Series ([employer]) 06/14/2021,10/10/2020,09/12/2020 COVID-19, LNP-s, No Preserve , Yousuf-sucrose, Ages 12+ (Pfizer) 12/25/2021 Covid-19, Mrna, Lnp-s, Pf, B ivalent, 30 Mcg, IM, 12 yrs and above (Drawn to Scale) 05/23/2022 Pneumococcal Conjugate Vacc, 13 Valent (Prevnar) [...] of Assessment Author No 06/01/2024 11:43 PM EDT Lucita Ledesma RN * Are you blind or do you have serious difficulty seeing, even when wearing glasses? Answer Date of Assessment Author No 06/01/2024 11:43 PM EDT Lucita Ledesma RN * Do you have serious difficulty walking or climbing stairs? (5 years old or older) Answer Date of Assessment Author Yes 06/01/2024 11:43 PM EDT Lucita Ledesma RN * Do you have difficulty dressing or bathing? (5 years old or older) Answer Date of Assessment Author Yes 06/01/2024 11:43 PM EDT Lucita Ledesma RN * Because of a physical, mental, or emotional condition, do you have difficulty doing errands alone such as visiting a doctor’s office or shopping? (15 years old or older) Answer Date of Assessment Author Yes 06/01/2024 11:43 PM EDT Lucita Ledesma RN documented as of this encounter Mental Status * Because of a physical, mental, or emotional condition, do you have serious difficulty concentrating, remembering, or making decisions? (5 years old or older) Answer Entry Date Author No 06/01/2024 11:43 PM EDT Lucita Ledesma RN documented in this encounter Miscellaneous Notes * Telephone Encounter - Bridgett Krause OSA - 10/28/2024 8:45 AM EDT Case built. * Telephone Encounter - Ml Avalos OSA - 10/27/2024 3:43 PM EDT Pt called back and scheduled appointments. He accepted the 12/28 surgery date. Please add to schedule. Thank you! * Telephone Encounter - Ml Avalos OSA - 10/27/2024 3:17 PM EDT Lmom to offer dates and schedule appts * Telephone Encounter - Elena Figueroa LPN - 10/27/2024 3:04 PM EDT Can use 01/09 for postop wound check and 01/23 for cysto * Telephone Encounter - Bridgett Krause OSA - 10/26/2024 9:45 AM EDT Patient can be scheduled for surgery 12/28/24 at [facility]. * Telephone Encounter - Elena Figueroa LPN - 10/25/2024 10:26 AM EDT Patient needs scheduled for SPT placement at [facility] please. Will also need cysto/cath change with Dr Sexton if SPT placement is more than 1 month out. Will need cardio clearance for medication hold. Separate encounter will be sent to cardio once we have surgery dates. Cystoscopy, open suprapubic tube placement. Two week wound check. One-month postop suprapubic exchange with possible cystoscopy with provider Thank you Ruma documented in this encounter Plan of Treatment Upcoming Encounters Date Type Department Care Team (Late st Contact Info) Description 10/31/2024 12:00 PM EDT Telemedicine Hematology/Oncology [address] [place] [address] Korin Fisher CRNP [address] [place] [address] 11/07/2024 10:40 AM EDT Telemedicine Nephrology, [facility] [address] [facility] [place] [address] Abhinav Dawson MD [address] [facility] [place] [address] 11/23/2024 9:00 AM EDT Cardiac Studies Cardiac Studies, [facility] [address] [place] [address] 11/23/2024 10:30 AM EDT Nurse Only Urology, [facility] [address] [place] [phone] [facility], Nurse Urology [facility] [address] [place] [address] 12/28/2024 Hospital Encounter OR [facility], Operating Room, [facility] - 4th Floor [address] [place] [address] Vinay Sexton MD [address] [place] [address] 01/09/2025 2:45 PM EDT Office Visit Urology, [facility] [address] [place] [address] Vinay Sexton MD [address] [place] [address] 01/23/2025 3:00 PM EDT Procedure Only Urology [facility] [address] [place] [phone] Vinay Sexton MD [address] [place] [address] 03/21/2025 11:45 AM EDT Telemedicine Urology, [facility] [address] [place] [phone] Vinay Sexton MD [address] [place] [address] Scheduled Procedures Name Priority Associated Diagnoses Date/Ti me CYSTOURETHROSCOPY Prostate cancer (HCC) Obstructive uropathy Vesical fistula ASPIRATION OF BLADDER BY INS ERTION OF SUPRAPUBIC CATHETER Prostate cancer (HCC) Obstructive uropathy Vesical fistula COLONOSCOPY FLEXIBLE PROXIMA L DIAGNOSTIC Recall Hx [...] 12/25/2021, Additional history exists GFR 04/14/2025 10/12/2024, 1204/2024, 07/04/2024, Additional history exists HbA1c 06/02/2025 06/02/2024, 0 12/2023, 06/22/2023, Additional history exists CKD PHOS USE SMARTSET 77598 06/06/20250 11/2023, 06/05/2024, 06/04/2024, Additional history exists CKD HGB USE SMARTSET 09793 10/12/202510/12, 10/12/2024, 07/11/2024, Additional history exists DTap/Tdap [...] D LEVEL ONCE IN A LIFETIME-USE SMARTSET# [id number] Completed 03/21/2024, 12/25/2023, 05/27/2021, Additional history exists [...] Not on filedocumented as of this encounter Advance Directives * Full Code (Latest Code Status on File) Date Activated Date Inactivated Comments 06/01/2024 11:10 PM 06/10/2024 6:36 PM This order reflects the patients wishes and were consensually agreed upon. Question Answer Comments Discussion of Advance Direct teo occurred with: Not Discussed due to patient's condition Care Teams Chaperon Relationship Specialty Start Date End Date Rhianna Huitron DO [address] [place] [address] PCP - General Family Medicine 09/15/24 documented as of this encounter
--- OUTSIDE RECORDS SUMMARY | 2024-11-18 02:15 | External Medical Summary | Summary of Care ---
Author Name Unknown Organization [facility] Address [address] [place] [address] Phone [phone] Care Team Providers Care Farmworkers Name Role Phone Kat Huitron DO Primary Care Provider Encounter Details Date Type Department Care Team (Latest Contact Info) Description 10/25/2024 9:45 AM EDT Procedure Only Urology, [facility] [address] [facility] [place] [address] Vinay Sexton MD [address] [place] [address] Prostate cancer (HCC)*; Obstructive uropathy; Vesical fistula; Retention of urine; BPH with obstruction/lower urinary tract symptoms Allergies Active Allergy Reactions Criticality Noted Date Comments Brent Inhibitors Cough Low 11/26/2017 Alendronate Sodium Muscle pain 04/11/2019 Heartburn, constipation, joint pain Misoprostol Diarrhea 08/08/2003 Niacin Er (Antihyperlipidemic) 11/26/2010 Gas, hot flashes Pollen 01/01/2018 Watery eyes, sneezing Pravastatin 02/26/2007 Upset stomach, all .Statins Simvastatin 02/26/2007 Upset stomach documented as of this encounter (statuses as of 10/25/2024) Medications ASPIR-81 81 MG PO TBEC 1 [...] Hour (toPROL XL)Indications:NSV T (nonsustained ventricular tachycardia) ([facility]),Non-ischemic cardiomyopathy ([facility]),Chronic HFrEF (heart failure with reduced ejection fraction) ([facility]) Take 1 Tablet by mouth in the morning and 1 Tablet before bedtime. 180 Tablet 1 05/31/20 24 Active Sodium Chloride Flush 0.9 % Intravenous SolutionIndication s:Osteomyelitis of symphysis pubis ([facility]) Administer 10 mL intravenously 4 times a [...] Oral Tablet (Lasix)Indications :FREDY (acute kidney injury) ([facility]),Hyponatremia Take 1 Tablet by mouth in the morning and 1 Tablet before bedtime. 60 Tablet 5 10/05/19 25 Active documented as of this encounter (statuses as of 10/25/2024) Active Problems Problem Noted Date Diagnosed Date [...] glucose 12/16/2005 Macular degeneration 12/02/1999 DISC DIS [id number] documented as of this encounter (statuses as of 10/25/2024) Resolved Problems Problem Noted Date Diagnosed Date [...] colonoscopy in 5 years ARTHRITIS,RHEUMATOID 07/07/2006 016 [id number] 07/07/200611/01 Overview (11/16/2009): Renamed Per Clinical Trials Billing Project. Pt is a participant in the [employer] (Consortium of [employer] [place] national data collection study. For further information please call Dr Hari Clark or Julia White, RN, CCRC at [phone] [facility] RESEARCH OTHER*[id number] 07/07/2006 01/28/2010 Overview (11/16/2009): Renamed Per Clinical Trials Billing Project. Pt is a participant in the [employer] (Consortium of Rhe[employer]ology [place] national data collection study. For further information please call Dr Hari Clark or Julia White, RN, CCRC at [phone] ADVANCE DIRECTIVE INFORMATION 05/19/2006 06/06/2024 Overview (05/19/2006): Yes-advised to bring copy in to be scanned into EMR. Hearing loss 12/02/1999 03/29/2013 documented as of this encounter (statuses as of 10/25/2024) Immunizations Name Administration Dates Next Due COVID-19 mRNA, LNP-s, No Pre serve, 2-Dose Series ([employer]) 06/14/2021,10/10/2020,09/12/2020 COVID-19, LNP-s, No Preserve , Yousuf-sucrose, Ages 12+ (Pfizer) 12/25/2021 Covid-19, Mrna, Lnp-s, Pf, B ivalent, 30 Mcg, IM, 12 yrs and above ([employer]) 05/23/2022 Pneumococcal Conjugate Vacc, 13 Valent (Prevnar) [...] documented in this encounter Progress Notes * Vinay Sexton MD - 10/25/2024 9:45 AM EDT [id number] PCP: [place] [address] [phone] Markus Wharton is a 79 year old male, who presents for cystoscopy for exchange of complex Ingram catheter. Patient's past notes reviewed. Patient is here with his son. They note they have been having intermittent cloudy urine and leakage around the catheter. Patient feels he is relatively stable.Interval imaging studies demonstrating persistence of the patient's inflammatory changes in the prostate and pubic bone are reviewed. BPH: Patient is being seen for BPH [...] Dr. Puente. Palliative XRT completed June 2023. CT scan Oct 2024: IMPRESSION 1. Redemonstration of fluid attenuation containing air in the retropubic region at the location of the prostatic apex and membranous urethra similar to prior CT. An abscess is a consideration. Suboptimal assessment for fistulous connection with bladder on this study. Consider CT cystogram to assessfor fistulous connection as clinically warranted. 2. Redemonstration of cortical irregularity and heterogeneity involving the pubic bones, concerningfor pubic osteomyelitis. 3. Apparent wall thickening of the urinary bladder may be related to incomplete distention or cystitis. 4. Additional findings described above. PSA Results: Lab Results Component Value Date/Time PSA - [facility] <0.02 10/12/2024 09:54 AM PSA - [facility] <0.02 07/11/2024 08:28 AM PSA - [facility] 0.03 05/30/2024 03:59 PM PSA - [facility] 0.88 12/03/2006 09:18 AM [...] date: 08/03/1962 Quit date: 08/03/1997 Years since quittin.2 Passive exposure: Past Smokeless tobacco: Never Tobacco comments: occasional cigar Substance Use Topics Alcohol use: Not Currently Vaping/E-Cigarette Use Vaping/E-Cigarette Use Never User Vaping/E-Cigarette Substances Vaping/E-Cigarette Devices Past Surgical History: Procedure Laterality Date COLONOSCOPY W/ LESION REMOVAL, SNARE 05/10/07 adenomatous repeat in 5 years COLONOSCOPY, DIAGNOSTIC (RECTUM) 05/10/2013 COLONOSCOPY FLEXIBLE PROXIMAL DIAGNOSTIC performed by Teddy Rizvi MD at ENDOSCOPY [facility] COLONOSCOPY, DIAGNOSTIC (RECTUM) 01/21/2019 diverticulosis, repeat 5 yrs/COLONOSCOPY FLEXIBLE PROXIMAL DIAGNOSTIC performed by Teddy Rizvi MD at ENDOSCOPY [facility] IR ASPIRATION ABSCESS/COLLECTION 06/06/2024 REMOVE TONSILS & ADENOIDS, AGE 12+ 1980 Tonsillectomy/Adenoids,12+ Y/O Past Medical History: Diagnosis Date Arthritis, rheumatoid (HCC) Benign neoplasm of colon 05/10/07 adenomatous repeat colonoscopy in 5 years Degeneration of lumbosacral intervertebral disc Elevated blood pressure, situational Fuchs' corneal dystrophy 10/19/2018 Impaired fasting glucose Macular degeneration Morbid (severe) obesity due to excess calories (HCC) 08/19/2017 Patient Active Problem List Diagnosis Macular degeneration DISC DIS [id number] Impaired fasting glucose Encounter for long-term (current) use of medications [...] stage 3a (HCC) S/P angioplasty with stent Hyponatremia Septic shock (HCC) 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 Risks and benefits of the procedure were reviewed and the patient was prepped and draped in the standard fashion for the procedure. A well lubricated 16 Moldovan flexible cystoscope was introduced through the meatus into the urethra. Urethra demonstrated no abnormalities. Prostatic urethra demonstrated persistent circumferentialnecrotic tissue with difficulties accessing the bladder. After some attempts bladder lumen was ableto be found beyond all the inflammatory tissue full of cloudy urine. Findings were suspicious for the possibility of Ingram malpositioning previously. Bladder neck was visualized and bladder was entered. Sterile saline irrigation was used to distend the bladder which was noted to have diffuse inflammation and significant retained postvoid residual with grade 2 trabeculation. Bladder was completelyinspected including retroflexion of the scope. Ureteral orifices were not identified. Amplatz supers tiff wire was placed via the cystoscope and into the bladder. After this was completed the cystoscope was removed. Eighteen Moldovan catheter with a cut-out at the tip was placed into the bladder with return of urine. This was able to be irrigated with isovolemic return. 10 mL of sterile water were placed in the balloon and catheter was placed to gravity drainage after irrigation with removal of cloudy urine and mild debris. Patient tolerated the procedure well without complications or difficulties. Leather Staker was present for entire procedure. Impression/Plan: 79-year-old male with prostate cancer, necrotic prostatic fossa with pubic osteomyelitis. Findings reviewed with the patient and son at length. Patient's anatomy does not seem to be improving with his chronic Ingram catheter. He has stabilized from a medical standpoint, demonstrates no evidence of active sepsis, bacteremia or infection but chronic osteomyelitis is likely present. Patient's Ingram catheter management has not become more simple over the course of time. Unfortunately, I think avoidance of the prostatic urethra via suprapubic catheter will be needed to normalize his drainmanagement. This carries the risk of further inflaming his osteomyelitis, although currently his Ingram catheter remains in the same vicinity and contiguous with abnormal tissue on CT imaging, so I donot think it will be a significant deterioration. Hopefully this will allow for catheter exchanges in a more routine fashion without the risk of loss of access to the bladder and placement over wire as has been necessary on more than 1 occasion. After lengthy discussion patient and son agree. Will tentatively schedule for cystoscopy, open suprapubic tube placement. Will attempt to place a suprapubic catheter higher than normal to avoid vicinity of the pubic bone. Informed consent obtained. Patient vocalizes good understanding of the treatment plan. Above content is personally reviewed. Vinay Sexton MD 7:27 AM 10/25/2024 documented in this encounter Plan of Treatment Upcoming Encounters Date Type Department Care Team (Late st Contact Info) Description 10/31/2024 12:00 PM EDT [facility] [place] [address] [facility] [address] Korin Fisher CRNP [address] [place] [address] 11/07/2024 10:40 AM EDT Telemedicine Nephrology, [facility] [address] [facility] [place] [address] Abhinav Dawson MD [address] [place] [address] 11/23/2024 9:00 AM EDT Cardiac Studies Cardiac Studies, [facility] [address] [place] [address] 03/21/2025 11:45 AM EDT Telemedicine Urology, [facility] [address] [place] [phone] Vinay Sexton MD [address] [place] [id number] Scheduled Orders Name Type Priority Associated Diagnoses Orde r Schedule CYSTOSCOPY Procedures Routine Vesical fistula Ordered: 10/25/2024 INS TEMP INDWELL CATH,COMPL Procedures Routine Vesical fistula Ordered: 10/25/2024 Scheduled Procedures Name Priority Associated Diagnoses Date/Ti [...] Additional history exists CKD PHOS USE SMARTSET 31348 06/06/20250 11/2023, 06/05/2024, 06/04/2024, Additional history exists CKD HGB USE SMARTSET 84151 10/12/202510/12, 10/12/2024, 07/11/2024, Additional history exists DTap/Tdap [...] D LEVEL ONCE IN A LIFETIME-USE SMARTSET# [id number] Completed 03/21/2024, 12/25/2023, 05/27/2021, Additional history exists [...] cancer (HCC)- Primary Malignant neoplasm of prostate Obstructive uropathy Urinary obstruction, unspecified Vesical fistula Vesical fistula, not elsewhere classified Retention of urine Retention of urine, unspecified BPH with obstruction/lower urinary tract symptoms Hypertrophy of prostate with urinary obstruction and other lower urinary tract symptoms (LUTS) documented in this encounter Advance Directives * Full Code (Latest Code Status on File) Date Activated Date Inactivated Comments 06/01/2024 11:10 PM 06/10/2024 6:36 PM This order reflects the patients wishes and were consensually agreed upon. Question Answer Comments Discussion of Advance Direct teo occurred with: Not Discussed due to patient's condition Care Teams Farmworkers Relationship Specialty Start Date End Date Kat Huitron DO [address] [place] [address] PCP - General Family Medicine 09/15/24 documented as of this encounter
--- OUTSIDE RECORDS SUMMARY | 2024-11-18 02:15 | External Medical Summary | Summary of Care ---
Author Name Unknown Organization [facility] Address [address] [place] [address] Phone [phone] Care Team Providers Care Digital Color Press Operator Name Role Phone Rhianna Huitron DO Primary Care Provider [phone] Reason for Visit * Reason Comments Chronic Kidney Disease (CKD) Encounter Details Date Type Department Care Team (Late st Contact Info) Description 11/07/2024 10:40 AM EDT Telemedicine Nephrology, [address] [address] Abhinav Dawson MD [address] [place] [address] Hyponatremia*; Systolic heart failure, unspecified HF chronicity (HCC) Allergies Active Allergy Reactions Criticality Noted Date Comments Brent Inhibitors Cough Low 11/26/2017 Alendronate Sodium Muscle pain 04/11/2019 Heartburn, constipation, joint pain Misoprostol Diarrhea 08/08/2003 Niacin Er (Antihyperlipidemic) 11/26/2010 Gas, hot flashes Pollen 01/01/2018 Watery eyes, sneezing Pravastatin 02/26/2007 Upset stomach, all .Statins Simvastatin 02/26/2007 Upset stomach documented as of this encounter (statuses as of 11/07/2024) Medications ASPIR-81 81 MG PO TBEC 1 [...] by mouth at bedtime. 04/08/20 24 Active Sodium Chloride Flush 0.9 % Intravenous SolutionIndication s:Osteomyelitis of symphysis pubis ([facility]) Administer 10 mL intravenously 4 times a [...] Oral Tablet (Lasix)Indications :FREDY (acute kidney injury) ([facility]),Hyponatremia Take 1 Tablet by mouth in the morning and 1 Tablet before bedtime. 60 Tablet 5 10/05/19 25 Active Metoprolol Succinate ER 25 MG Oral Tablet Extended Release 24 Hour (toPROL XL)Indications:NSV T (nonsustained ventricular tachycardia) ([facility]),Non-ischemic cardiomyopathy ([facility]),Chronic HFrEF (heart failure with reduced ejection fraction) ([facility]) Take 1 Tablet by mouth daily AND 1.5 Tablets every evening. 225 Tablet 3 11/01/19 25 Active documented as of this encounter (statuses as of 11/07/2024) Active Problems Problem Noted Date Diagnosed Date [...] glucose 12/16/2005 Macular degeneration 12/02/1999 DISC DIS [id number] documented as of this encounter (statuses as of 11/07/2024) Resolved Problems Problem Noted Date Diagnosed Date [...] colonoscopy in 5 years ARTHRITIS,RHEUMATOID 07/07/2006 016 [id number] 07/07/200611/01 Overview (11/16/2009): Renamed Per Clinical Trials Billing Project. Pt is a participant in the [employer] (Consortium of [employer] [place]) national data collection study. For further information please call Dr Hari Clark or Julia White, RN, CCRC at [phone] [facility] RESEARCH OTHER*[id number] 07/07/2006 01/28/2010 Overview (11/16/2009): Renamed Per Clinical Trials Billing Project. Pt is a participant in the [employer] (Consortium of Rheumatology Researchers [place]) national data collection study. For further information please call Dr Hari Clark or Julia White, RN, CCRC at [phone] ADVANCE DIRECTIVE INFORMATION 05/19/2006 06/06/2024 Overview (05/19/2006): Yes-advised to bring copy in to be scanned into EMR. Hearing loss 12/02/1999 03/29/2013 documented as of this encounter (statuses as of 11/07/2024) Immunizations Name Administration Dates Next Due COVID-19 mRNA, LNP-s, No Pre serve, 2-Dose Series (S[employer]) 06/14/2021,10/10/2020,09/12/2020 COVID-19, LNP-s, No Preserve , Yousuf-sucrose, Ages 12+ (Pfizer) 12/25/2021 Covid-19, Mrna, Lnp-s, Pf, B ivalent, 30 Mcg, IM, 12 yrs and above (Sputnik8) 05/23/2022 Pneumococcal Conjugate Vacc, 13 Valent (Prevnar) [...] Sign Reading Time Taken Comments Blood Pressure 117/61 11/07/2024 10:59 AM EDT se lf reported Pulse - - Temperature - - Respiratory Rate - - Oxygen Saturation - - Inhaled Oxygen Concentration - - Weight 113.4 kg (250 lb) 11/07/2024 10:59 AM EDT Height - - Body Mass Index 32.1 06/01/2024 11:15 PM EDT documented in this encounter Functional Status * Are you [...] Lucita Ledesma RN documented in this encounter Progress Notes * Abhinav Dawson MD - 11/07/2024 10:55 AM EDT Nephrology Telemedicine Note 11/07/2024, 10:55 AM After connecting through [employer], patient was identified by name and date of . Patient was then informed that this was a Telemedicine visit and that the exam was being conducted confidentially, over secure lines, that my office door was closed, and there was no one else in the room. Patient acknowledged consent and understanding of privacy and security of the Telemedicine visit, and gave us permission to proceed. I informed the patient that I have reviewed their record in [facility] and presented the opportunity for them to ask any questions regarding the visit today. The patient agreed to participate. HPI: Markus Wharton is a 79 year old male seen in follow-up. Past medical history of rheumatoid arthritis, chronic hyponatremia baseline sodium 130-133, AFib, hypertension, prostate cancer status post chemo, obstructive uropathy follows with Dr. Sexton and planned for suprapubic catheter. Patient wasrecently hospitalized at [facility] with sepsis. Takes boost daily, eats lots of meaton his meals. Uses wheelchair and walker in the house. He complains of occasional dizziness. Follows with Dr. Greenfield. He drinks about 5 water bottles 60 oz each. He was on urea during hospitalization at [facility]. Review of Systems: General ROS: negative for - chills or fever Psychological ROS: negative for - mood swings ENT ROS: negative for - nasal congestion or nasal discharge Endocrine ROS: negative Respiratory ROS: no cough, shortness of breath, or wheezing Cardiovascular ROS: no chest pain or dyspnea on exertion Gastrointestinal ROS: no abdominal pain, change in bowel habits, or black or bloody stools Genito-Urinary ROS: no dysuria, trouble voiding, or hematuria Musculoskeletal ROS: negative for - muscle pain Neurological ROS: no TIA or stroke symptoms Dermatological ROS: negative for rash Past Medical History: Diagnosis Date Arthritis, rheumatoid [...] performed by Teddy Rizvi MD at ENDOSCOPY [facility] COLONOSCOPY, DIAGNOSTIC (RECTUM) 01/21/2019 diverticulosis, repeat 5 yrs/COLONOSCOPY FLEXIBLE PROXIMAL DIAGNOSTIC performed by Teddy Rizvi MD at ENDOSCOPY [facility] IR ASPIRATION ABSCESS/COLLECTION 06/06/2024 REMOVE TONSILS [...] 0 Folic Acid 1 MG Oral Tablet TAKE [...] DAY IN THE MORNING 90 Tablet 3 Melatonin 3 MG Oral Tablet Take 2 Tablets by mouth at bedtime. Methotrexate 2.5 MG Oral Tablet Take 5 Tablets by mouth once a week. 65 Tablet 1 Furosemide 20 MG Oral Tablet (Lasix) Take 1 Tablet by mouth in the morning and 1 Tablet before bedtime. 60 Tablet 5 Metoprolol Succinate ER 25 MG Oral Tablet Extended Release 24 Hour (toPROL XL) Take 1 Tablet by mouth daily AND 1.5 Tablets every evening. 225 Tablet 3 Acetaminophen 325 MG Oral Tablet (Tylenol) 2 Tablets. Albuterol Sulfate HFA 108 (90 Base) MCG/ACT Inhalation Aerosol Solution Inhale 1 Puff by mouth every 6 hours as needed for Wheezing. Sodium Chloride Flush 0.9 % Intravenous Solution Administer 10 mL intravenously 4 times a day as needed for Other. Flush PICC before and after IV administration. Single use syringe: discard after use. (Patient not taking: Reported on 10/17/2024) 900 mL 0 No current facility-administered medications for this visit. Family History Problem Relation Name Age of Onset Arthritis Mother RHEUMATOID Gastro-intestinal disorder Mother PUD Gastro-intestinal disorder Father PUD Diabetes Uncle (Unspecified) Arthritis Sister osteo Arthritis Sister osteo Social History Socioeconomic History Marital status: Spouse name: Keyanna Number of children: 2 Years of education: Not on file Highest education level: Not on file Occupational History Employer: [employer] Tobacco Use Smoking status: Former Current packs/day: [...] Social History Narrative Not on file Social Needs Financial Resource Strain: Not on file Food Insecurity: No Food Insecurity (12/16/2022) Hunger Vital Sign Worried About Running Out of Food in the Last Year: Never true Ran Out of Food in the Last Year: Never true Transportation Needs: Not on file Social Connections: Not on file Housing Stability: Not on file OBJECTIVE: Vital signs given by patient from home records: BP 115/60 mmHg, Wt 250 Lb. Physical exam through videocamera; General: Pleasant, no distress; Eyes: moist anicteric mucosae, anicteric sclerae. neck without visible adenopathy; face symmetrical ; chest expansion symmetrical, Respiratory: breathing unlabored; MSK: back symmetrical, Abdomen No obvious distension. Legs without obvious joint deformities, no edema. Skin clear and no obvious rashes noted. Neurologically AAOx3, speech fluent. Psychiatric - mood pleasant. Labs and data reviewed and significant for: Recent Labs Units 10/12/24 0954 07/11/24 0828 07/04/24 0745 06/27/24 1305 SODIUM - [facility] mmol/L 130* 134* 133* 133* POTASSIUM - [facility] mmol/L 4.3 3.9 3.9 3.8 CHLORIDE - [facility] mmol/L 91* 95* 95* 93* CO2 - [facility] mmol/L 28 26 26 26 BUN - [facility] mg/dL 18 14 15 15 CREATININE - [facility] mg/dL 1.0 1.1 1.1 1.1 Recent Labs Units 10/12/24 0954 07/11/24 0828 07/04/24 0745 WBC K/uL 6.28 7.36 8.34 HGB g/dL 10.4* 9.2* 9.4* PLT K/uL 336 277 266 Recent Labs Units 10/12/24 0954 07/11/24 0828 07/04/24 0745 06/27/24 1305 06/08/24 0915 06/06/24 0622 06/05/24 0732 06/04/24 0537 06/03/24 1402 06/03/24 0530 05/18/24 0000 03/21/24 0843 12/25/23 1431 CALCIUM - [facility] mg/dL 9.6 8.6 8.9 8.9 < > 8.3* 8.3* 7.9* < > 8.0* < > 9.1 9.5 PHOSPHORUS - [facility] mg/dL -- -- -- -- -- 2.8 2.6 2.4* -- 3.0 < > -- -- PHOSPHORUS-OUTSIDE LAB -- -- -- -- -- -- -- -- -- -- < > -- -- 25-HYDROXY VITAMIN D - [facility] ng/mL -- -- -- -- -- -- -- -- -- -- -- 29 28 < > = values in this interval not displayed. Recent Labs Units 06/02/24 0542 11/06/23 1147 06/22/23 1038 HEMOGLOBIN A1C - [facility] % 5.9* 6.0* 6.1* No results for input(s): "MICROALBUMIN", "PROCRRATIO" in the last 54230 hours. ASSESSMENT/PLAN: Markus was seen today for chronic kidney disease (ckd). 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 Recent sodium of 130. Target his 135. I have asked him to reduce water intake aiming for 45 oz daily. Discussed need to eat high-protein diet at least 3 meals daily. Patient can salt is food. Repeat BMP beginning of December. If sodium is below 30, we may have to use urea. Systolic heart failure, unspecified HF chronicity (HCC) Patient appears well compensated on Lasix 20 mg twice daily which will continue. No changes. Abhinav Dawson MD Nephrology, [address] [address] This note was generated with the help of voice recognition software. Please excuse for errors. documented in this encounter Nursing Notes * Yaz Meyer RN - 11/07/2024 11:00 AM EDT Video visit started with proper identification. No recent illness. No report edema. documented in this encounter Plan of Treatment Upcoming Encounters Date Type Department Care Team (Latest Contact Info) Description 11/23/2024 9:00 AM EDT [facility] [address] [phone] 11/29/2024 3:00 PM EDT Procedure Only Urology, [facility] [address] [place] [phone] Vinay Sexton MD [address] [address] 12/28/2024 2:10 PM EDT Hospital Encounter OR GL, Operating Room, [facility] - 4th Floor [address] [facility] [place] [phone] Vinay Sexton MD [address] [address] 12/28/2024 2:10 PM EDT - 12/28/2024 3:26 PM EDT Surgery OR GL, Operating Room, [facility] - 4th Floor [address] [place] [phone] Vinay Sexton MD [address] [address] CYSTOURETHROSCOPY 01/09/2025 2:45 PM EDT Office Visit Urology, [facility] [address] [place] [phone] Vinay Sexton MD [address] [address] 01/23/2025 3:00 PM EDT Procedure Only Urology, [facility] [address] [place] [phone] Vinay Sexton MD [address] [address] 01/24/2025 10:00 AM EDT Office Visit Cardiology, [facility] [address] [place] [phone] Dmitri Greenfield DO [address] [place] [address] 03/21/2025 11:45 AM EDT Telemedicine Urology, [facility] [address] [place] [phone] Vinay Sexton MD [address] [address] Scheduled Orders Name Type Priority Associated Diagnoses Orde r Schedule BASIC METABOLIC PANEL Lab Routine Hyponatremia Expected: 03/03/2025, Expires: 11/07/2025 Scheduled Procedures Name Priority Associated Diagnoses Date/Ti [...] 07/04/2024, Additional history exists HbA1c 06/02/2025 06/02/2024, 04/0 12/2023, 06/22/2023, Additional history exists CKD PHOS USE SMARTSET 59117 06/06/2025 110 11/2023, 06/05/2024, 06/04/2024, Additional history exists CKD HGB USE SMARTSET 26638 10/12/202510/12, 10/12/2024, 07/11/2024, Additional history exists DTap/Tdap [...] D LEVEL ONCE IN A LIFETIME-USE SMARTSET# 24036 Completed 03/21/2024, 12/25/2023, 05/27/2021, Additional history exists [...] Vesical fistula Vesical fistula, not elsewhere classified Hyponatremia- Primary Hyposmolality and/or hyponatremia Systolic heart failure, unspecified HF chronicity (HCC) Prostate cancer (HCC) Malignant neoplasm of [...] Discussed due to patient's condition Care Teams Digital Color Press Operator Relationship Specialty Start Date End Date Rhianna Huitron DO [address] [address] PCP - General Family Medicine 09/15/24 documented as of this encounter
--- OUTSIDE RECORDS SUMMARY | 2024-11-18 02:15 | External Medical Summary | Summary of Care ---
Author Name Unknown Organization [facility] Address [address] [place] [address] Phone [phone] Care Team Providers Care Inspector Sheet Metal Parts Name Role Phone Rhianna Huitron DO Primary Care Provider Encounter Details Date Type Department Care Team (Late st Contact Info) Description 10/31/2024 Refill Cardiology, [facility] [address] [place] [address] Robinson Bello DO [address] [place] [address] NSVT (nonsustained ventricular tachycardia) ([facility]); Non-ischemic cardiomyopathy (HCC); Chronic HFrEF (heart failure with reduced ejection fraction) ([facility]) Allergies Active Allergy Reactions Criticality Noted Date Comments Brent Inhibitors Cough Low 11/26/2017 Alendronate Sodium Muscle pain 04/11/2019 Heartburn, constipation, joint pain Misoprostol Diarrhea 08/08/2003 Niacin Er (Antihyperlipidemic) 11/26/2010 Gas, hot flashes Pollen 01/01/2018 Watery eyes, sneezing Pravastatin 02/26/2007 Upset stomach, all .Statins Simvastatin 02/26/2007 Upset stomach documented as of this encounter (statuses as of 11/01/2024) Medications ASPIR-81 81 MG PO TBEC 1 TABLET DAILY 0 06/19/20 06 Active Acetaminophen 325 MG Oral Tablet (Tylenol) 2 Tablets. 09/03/19 24 Active Folic Acid 1 MG Oral TabletIndications :Arthritis, rheumatoid ([facility]) TAKE 1 TABLET BY MOUTH EVERY DAY [...] Active Sodium Chloride Flush 0.9 % Intravenous SolutionIndicatio ns:Osteomyelitis of symphysis pubis ([facility]) Administer 10 mL intravenously 4 times a day as needed for Other. Flush PICC before and after IV administration. Single use syringe: discard after use. 900 mL 07/08/20 24 025 Active Additional Information Patient not taking.Reported on 10/17/2024 Methotrexate 2.5 MG Oral Tablet Take 5 Tablets by mouth once a week. 65 Tablet 1 07/18/20 24 Active Furosemide 20 MG Oral Tablet (Lasix)Indication s:FREDY (acute kidney injury) ([facility]),Hyponatremi a Take 1 Tablet by mouth in the morning and 1 Tablet before bedtime. 60 Tablet 5 10/05/19 25 Active Metoprolol Succinate ER 25 MG Oral Tablet Extended Release 24 Hour (toPROL XL)Indications:NS VT (nonsustained ventricular tachycardia) ([facility]),Non-ischemi c cardiomyopathy ([facility]),Chronic HFrEF (heart failure with reduced ejection fraction) ([facility]) Take 1 Tablet by mouth daily AND 1.5 Tablets every evening. 225 Tablet 3 11/01/19 25 Active Metoprolol Succinate ER 25 MG Oral Tablet Extended Release 24 Hour (toPROL XL)Indications:NS VT (nonsustained ventricular tachycardia) ([facility]),Non-ischemi c cardiomyopathy (HCC),Chronic HFrEF (heart failure with reduced ejection fraction) ([facility]) Take 1 Tablet by mouth in the morning and 1 Tablet before bedtime. 180 Tablet 1 05/31/20 24 025 Discontin ued(Refil l) documented as of this encounter (statuses as of 11/01/2024) Active Problems Problem Noted Date Diagnosed Date [...] glucose 12/16/2005 Macular degeneration 12/02/1999 DISC DIS [id number] documented as of this encounter (statuses as of 11/01/2024) Resolved Problems Problem Noted Date Diagnosed Date [...] colonoscopy in 5 years ARTHRITIS,RHEUMATOID 07/07/2006 016 [id number] 07/07/200611/01 Overview (11/16/2009): Renamed Per Clinical Trials Billing Project. Pt is a participant in the [employer] (Consortium of Rhe[employer] national data collection study. For further information please call Dr Hari Clark or Julia White, RN, CCRC at [phone] [facility] RESEARCH OTHER*[id number] 07/07/2006 01/28/2010 Overview (11/16/2009): Renamed Per Clinical Trials Billing Project. Pt is a participant in the [employer] (Consortium of Rhe[employer]ology [place] national data collection study. For further information please call Dr Hari Clark or Julia White, RN, CCRC at [phone] ADVANCE DIRECTIVE INFORMATION 05/19/2006 06/06/2024 Overview (05/19/2006): Yes-advised to bring copy in to be scanned into EMR. Hearing loss 12/02/1999 03/29/2013 documented as of this encounter (statuses as of 11/01/2024) Immunizations Name Administration Dates Next Due COVID-19 mRNA, LNP-s, No Pre serve, 2-Dose Series ([employer]) 06/14/2021,10/10/2020,09/12/2020 COVID-19, LNP-s, No Preserve , Yousuf-sucrose, [...] Lucita Harrell RN documented in this encounter Miscellaneous Notes * Telephone Encounter - Robinson Bello DO - 10/31/2024 5:26 PM EDTSigned Prescriptions: Disp Refills Metoprolol Succinate ER 25 MG Oral Tablet *225 Ta*3 Sig: Take 1Tablet by mouth daily AND 1.5 Tablets every evening.Authorizing Provider: ROBINSON BELLO--------- * Telephone Encounter - Guy Bishop LPN - 10/31/2024 1:48 PM EDT Pended per patients MyChart reply. * Telephone Encounter - Guy Bishop LPN - 10/31/2024 1:36 PM EDT Sent patient a Kenshot message to make aware. Scheduling please assist. * Telephone Encounter - Robinson Bello DO - 10/31/2024 1:19 PM EDT Cardiology nursing: Please let patient know that I reviewed the results of his Zio patch monitor. The monitor was performed in follow-up of suspicion of possible atrial fibrillation. No atrial fibrillation was observed. The patient did have frequent premature ventricular contractions as well as runs of nonsustained ventricular tachycardia. He is known to have the ventricular arrhythmia, that has what prompted his initial hospital stay and stents. He has had previous difficulty tolerating higher doses of metoprolol. I recommend that he continuesthe metoprolol succinate 25 milligrams daily in the morning, but I do think we need to try to work on weight back up to a higher dose by taking another 12.5 milligrams with his evening meal or at bedtime. Please help arrange follow up with me in 3 months. Robinson Bello DO documented in this encounter Plan of Treatment Upcoming Encounters Date Type Department Care Team (Latest Contact Info) Description 11/07/2024 10:40 AM EDT Telemedicine Nephrology, [address] [place] [address] Abhinav Dawson [facility] [address] [facility] [place] [address] 11/23/2024 9:00 AM EDT Cardiac Studies Cardiac Studies, [facility] [address] [place] [address] 11/23/2024 10:30 AM EDT [facility] Only [facility] [address] [place] [phone] [facility], Nurse Urology [facility] [address] [place] [address] 12/28/2024 2:10 PM EDT Hospital Encounter OR [facility], Operating Room, [facility] - 4th Floor [address] [place] [address] Vinay Sexton MD [address] [address] 12/28/2024 2:10 PM EDT - 12/28/2024 3:26 PM EDT Surgery OR [facility], Operating Room, [facility] - 4th Floor [address] [phone] Vinay Sexton MD [address] [address] CYSTOURETHROSCOPY 01/09/2025 2:45 PM EDT Office Visit Urology, [facility] [address] [place] [address] Vinay Sexton MD [address] [address] 01/23/2025 3:00 PM EDT Procedure Only Urology, [facility] [address] [place] [phone] Vinay Sexton MD [address] [address] 01/24/2025 10:00 AM EDT Office Visit Cardiology, [facility] [address] [place] [phone] Robinson Bello, [address] [place] [address] 03/21/2025 11:45 AM EDT Telemedicine Urology, [facility] [address] [place] [phone] Vinay Sexton MD [address] [place] [address] Scheduled Procedures Name Priority Associated Diagnoses Date/Ti ky CYSTOURETHROSCOPY Prostate cancer (HCC) Obstructive uropathy Vesical fistula 12/28/2024 2:10 PM EDT ASPIRATION OF BLADDER BY INSERTION OF SUPRAPUBIC CATHETER Prostate cancer (HCC) Obstructive uropathy Vesical fistula 12/28/2024 2:10 PM EDT COLONOSCOPY FLEXIBLE PROXIMA L DIAGNOSTIC Recall Hx of colonic polyps Health Maintenance Due Date Last Done Comments Adult Wellness Visit 03/16/2020 03/16/2019 DXA Scan 01/10/2021 01/10/2019, 12/2005, 07/07/2006 Depression Screening 03/13/2021 Albumin/Creatinine Ratio 04/10/2023 04/10/2022, 10/2006 *BISPHONATE OR OTHER ACCEPTABLE MEDICATION NEEDED FOR OSTEOPOROSIS (REFER TO SMARTSET #1146) 04/29/2023 Colonoscopy 01/22/2024 01/21/2019, 01/02, 05/10/2013, Additional history exists COVID-19 Vaccine ( season) 2024 05/23/2022, 12/25/2021, 12/25/2021, Additional history exists GFR 04/14/2025 10/12/2024, 04/2024, 07/04/2024, Additional history exists HbA1c 06/02/2025 06/02/2024, 0 12/2023, 06/22/2023, Additional history exists CKD PHOS USE SMARTSET 44774 06/06/202511/2023, 06/05/2024, 06/04/2024, Additional history exists CKD HGB USE SMARTSET 36964 10/12/202510/12, 10/12/2024, 07/11/2024, Additional history exists DTap/Tdap [...] D LEVEL ONCE IN A LIFETIME-USE SMARTSET# [id number] Completed 03/21/2024, 12/25/2023, 05/27/2021, Additional history exists [...] Vesical fistula Vesical fistula, not elsewhere classified NSVT (nonsustained ventricular tachycardia) (HCC) Paroxysmal ventricular tachycardia Non-ischemic cardiomyopathy (HCC) Other primary cardiomyopathies Chronic HFrEF (heart failure with reduced ejection fraction) (HCC) Prostate cancer (HCC) Malignant neoplasm of [...] Discussed due to patient's condition Care Teams Inspector Sheet Metal Parts Relationship Specialty Start Date End Date Rhianna Huitron DO [address] [address] PCP - General Family Medicine 09/15/24 documented as of this encounter
--- OUTSIDE RECORDS SUMMARY | 2024-11-18 02:16 | External Medical Summary | Summary of Care ---
Author Name Unknown Organization [facility] Address [address] [place] [address] Phone [phone] Care Team Providers Care Labor Relations Representative Name Role Phone Kat Huitron DO Primary Care Provider Encounter Details Date Type Department Care Team (Latest Contact Info) Description 08/15/2024 1:00 PM EST Procedure Only Urology, [facility] [address] [facility] [place] [address] Vinay Sexton MD [address] [place] [address] Prostate cancer (HCC)*; Obstructive uropathy; Vesical fistula; BPH with obstruction/lower urinary tract symptoms Allergies Active Allergy Reactions Criticality Noted Date Comments Brent Inhibitors Cough Low 11/26/2017 Alendronate Sodium Muscle pain 04/11/2019 Heartburn, constipation, joint pain Misoprostol Diarrhea 08/08/2003 Niacin Er (Antihyperlipidemic) 11/26/2010 Gas, hot flashes Pollen 01/01/2018 Watery eyes, sneezing Pravastatin 02/26/2007 Upset stomach, all .Statins Simvastatin 02/26/2007 Upset stomach documented as of this encounter (statuses as of 08/15/2024) Medications ASPIR-81 81 MG PO TBEC 1 [...] XL)Indications:NSV T (nonsustained ventricular tachycardia) ([facility]),Non-ischemic cardiomyopathy ([facility]),Chronic HFrEF (heart failure with reduced ejection fraction) ([facility]) Take 1 Tablet by mouth in the morning and 1 Tablet before bedtime. 180 Tablet 1 05/31/20 24 Active Furosemide 20 MG Oral Tablet (Lasix)Indications :FREDY (acute kidney injury) ([facility]),Hyponatremia Take 1 Tablet by mouth in the morning and 1 Tablet before bedtime. 60 Tablet 5 05/31/20 24 Active Clopidogrel Bisulfate 75 MG Oral Tablet (pLAVix) TAKE 1 TABLET BY MOUTH EVERY DAY IN THE MORNING 90 Tablet 3 06/16/20 24 Active Sodium Chloride Flush 0.9 % Intravenous SolutionIndication s:Osteomyelitis of symphysis pubis ([facility]) Administer 10 mL intravenously 4 times a day as needed for Other. Flush PICC before and after IV administration. Single use syringe: discard after use. 900 mL 07/08/20 24 025 Active Methotrexate 2.5 MG Oral Tablet Take 5 Tablets by mouth once a week. 65 Tablet 1 07/18/20 24 Active documented as of this encounter (statuses as of 08/15/2024) Active Problems Problem Noted Date Diagnosed Date Pelvic abscess in male 06/03/2024 Osteomyelitis of [...] glucose 12/16/2005 Macular degeneration 12/02/1999 DISC DIS [id number] documented as of this encounter (statuses as of 08/15/2024) Resolved Problems Problem Noted Date Diagnosed Date [...] colonoscopy in 5 years ARTHRITIS,RHEUMATOID 07/07/2006 016 [id number] 07/07/200611/01 Overview (11/16/2009): Renamed Per Clinical Trials Billing Project. Pt is a participant in the [employer] ([employer]ortium of [employer] [place]) national data collection study. For further information please call Dr Hari Clark or Julia White, RN, CCRC at [phone] [facility] RESEARCH OTHER*[id number] 07/07/2006 01/28/2010 Overview (11/16/2009): Renamed Per Clinical Trials Billing Project. Pt is a participant in the [employer] (Consortium of Rheumatology [employer] [place]) national data collection study. For further information please call Dr Hari Clark or Julia White, RN, CCRC at [phone] ADVANCE DIRECTIVE INFORMATION 05/19/2006 06/06/2024 Overview (05/19/2006): Yes-advised to bring copy in to be scanned into EMR. Hearing loss 12/02/1999 03/29/2013 documented as of this encounter (statuses as of 08/15/2024) Immunizations Name Administration Dates Next Due COVID-19 mRNA, LNP-s, No Pre serve, 2-Dose Series ([email or web address]) 06/14/2021,10/10/2020,09/12/2020 COVID-19, LNP-s, No Preserve , Yousuf-sucrose, Ages 12+ (Pfizer) 12/25/2021 Covid-19, Mrna, Lnp-s, Pf, B ivalent, 30 Mcg, IM, 12 yrs and above ([email or web address]) 05/23/2022 Pneumococcal Conjugate Vacc, 13 Valent (Prevnar) [...] of Assessment Author Yes 06/01/2024 11:43 PM EDLucita Nugent RN documented as of this encounter Mental Status * Because of a physical, mental, or emotional condition, do you have serious difficulty concentrating, remembering, or making decisions? (5 years old or older) Answer Entry Date Author No 06/01/2024 11:43 PM EDLucita Nugent RN documented in this encounter Progress Notes * Vinay Sexton MD - 08/15/2024 1:03 PM EST [id number] PCP: KAT HUITRON Markus Wharton is a 79 year old male, who presents for cystoscopy for Ingram catheter exchange. Patient's past notes are reviewed. Patient is here today with his son. He notes he feels overall improved. He has been off of IV antibiotics since July without ill effect. CT images are personally reviewed demonstrating diminished inflammation and no abscess. BPH: Patient is being seen for BPH [...] Palliative XRT completed June 2023. CT scan Jul 2024: IMPRESSION Compared to 06/01/2024: Persistent but improving inflammatory changes centered at the pubic symphysis, prostate, seminal vesicles, and bladder with decreased soft tissue air adjacent to the pubic symphysis and similar osseous changes at the pubic tubercles suspicious for osteomyelitis. PSA Results: Lab Results Component Value Date/Time PSA - [facility] <0.02 07/11/2024 08:28 AM PSA - [facility] 0.03 05/30/2024 03:59 PM PSA - [facility] 0.04 03/21/2024 08:43 AM PSA - [facility] 0.88 12/03/2006 09:18 [...] 1 Tablet before bedtime. 180 Tablet 1 Furosemide 20 MG Oral Tablet (Lasix) Take 1 Tablet by mouth in the morning and 1 Tablet before bedtime. 60 Tablet 5 Clopidogrel Bisulfate 75 MG Oral Tablet (pLAVix) TAKE 1 TABLET BY MOUTH EVERY DAY IN THE MORNING 90Tablet 3 Sodium Chloride Flush 0.9 % Intravenous Solution Administer 10 mL intravenously 4 times a day as needed for Other. Flush PICC before and after IV administration. Single use syringe: discard after use. 900 mL 0 Methotrexate 2.5 MG Oral Tablet Take 5 Tablets by mouth once a week. 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 Comments: On stretcher. Genitourinary: Penis: Normal. Cystoscopy Procedure Note: Patient was properly identified and appropriate consent was confirmed. Risks and benefits of the procedure were reviewed and the patient was prepped and draped in the standard fashion for the procedure. A well lubricated 16 Sammarinese flexible cystoscope was introduced through the meatus into the urethra. Urethra demonstrated normal distal urethra up to the level of sphincter, necrotic tissue proximally . Prostatic urethra demonstrated circumferential necrotic tissue, although passage into the bladder is now more clearly visible. Mild bladder neck contracture easily bypassed is appreciated . Bladder neck was visualized and bladder was entered. Sterile saline irrigation was used to distend the bladder which was noted to have mild inflammation from Ingram catheter without tumor and with grade 3 trabeculation with cellules and diverticulae. Bladder was completely inspected including retroflexion of the scope. Ureteral orifices were noted to be poorly visualized. After this was completed the cystoscope was removed. Patient tolerated the procedure well without complications or difficulties. Electronics Tester was present for entire procedure. Eighteen Sammarinese coude Ingram catheter replaced without difficulties or resistance, bladder irrigatedand drained without difficulty. 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 We are pleased with the patient's improvement. Will see for cystoscopy and catheter exchange in a month. After this, we will plan on simple catheter exchange. Will consider CT scan in 3 months time. Above content is personally reviewed. Vinay Sexton MD 1:04 PM 08/15/2024 documented in this encounter Plan of Treatment Upcoming Encounters Date Type Department Care Team (Late st Contact Info) Description 09/08/2024 3:40 PM EST Office Visit Nephrology, [address] [address] Bryson Ellis MD [address] [place] [address] 09/21/2024 10:00 AM EST Procedure Only Urology, [facility] [address] [facility] [place] [address] Vinay Sexton MD [address] [place] [address] 10/17/2024 10:30 AM EDT Office Visit Cardiology, [facility] [address] [facility] [place] [address] Dmitri Greenfield DO [address] [facility] [place] [address] 10/18/2024 10:00 AM EDT Laboratory Laboratory [facility] [place] [address] [place] [address] Adia Hobbs [address] [place] [address] 10/25/2024 4:00 PM EDT Office Visit Hematology/Oncology [facility] [place] [address] [address] Korin Fisher, SHEEBA [address] [place] [address] 03/21/2025 11:45 AM EDT Telemedicine Urology, [facility] [address] [place] [address] Vinay Sexton MD [address] [place] [id number] Scheduled Orders Name Type Priority Associated Diagnoses Orde r Schedule CYSTOSCOPY Procedures Routine Vesical fistula Ordered: 08/15/2024 INS TEMP INDWELL CATH,COMPL Procedures Routine Vesical fistula Ordered: 08/15/2024 Scheduled Procedures Name Priority Associated Diagnoses Date/Ti [...] 05/23/2022, 12/25/2021, 12/25/2021, Additional history exists GFR 01/09/2025 07/11/2024, 09/2023, 06/27/2024, Additional history exists HbA1c 06/02/2025 06/02/2024, 12/2023, 06/22/2023, Additional history exists CKD PHOS USE SMARTSET 43763 06/06/2025 110 11/2023, 06/05/2024, 06/04/2024, Additional history exists CKD HGB USE SMARTSET 52179 07/11/202507/11, 07/11/2024, 07/04/2024, Additional history exists DTap/Tdap Vaccines (3 - [...] D LEVEL ONCE IN A LIFETIME-USE SMARTSET# [id number] Completed 03/21/2024, 12/25/2023, 05/27/2021, Additional history exists [...] Vesical fistula Vesical fistula, not elsewhere classified BPH with obstruction/lower urinary tract symptoms Hypertrophy [...] Discussed due to patient's condition Care Teams Labor Relations Representative Relationship Specialty Start Date End Date Kat Huitron DO PCP - General Family Medicine 07/11/19 documented as of this encounter
--- OUTSIDE RECORDS SUMMARY | 2024-11-18 02:16 | External Medical Summary | Summary of Care ---
Author Name Unknown Organization [facility] Address [address] [place] [address] Phone [phone] Care Team Providers Care Shot Hole Driller Name Role Phone Rhianna Huitron DO Primary Care Provider [phone] Reason for Visit * Reason Onset Date Comments Medication Refill 10/01/2024 Encounter Details Date Type Department Care Team (Late st Contact Info) Description 10/01/2024 Refill Infectious Disease, [address] [address] Bryson Ellis MD [address] [place] [address] FREDY (acute kidney injury) ([facility]); Hyponatremia Allergies Active Allergy Reactions Criticality Noted Date Comments Brent Inhibitors Cough Low 11/26/2017 Alendronate Sodium Muscle pain 04/11/2019 Heartburn, constipation, joint pain Misoprostol Diarrhea 08/08/2003 Niacin Er (Antihyperlipidemic) 11/26/2010 Gas, hot flashes Pollen 01/01/2018 Watery eyes, sneezing Pravastatin 02/26/2007 Upset stomach, all .Statins Simvastatin 02/26/2007 Upset stomach documented as of this encounter (statuses as of 10/04/2024) Medications ASPIR-81 81 MG PO TBEC 1 TABLET DAILY 0 06/19/20 06 Active Acetaminophen 325 MG Oral Tablet (Tylenol) 2 Tablets. 09/03/19 24 Active Folic Acid 1 MG Oral TabletIndications :Arthritis, rheumatoid ([facility]) TAKE 1 TABLET BY MOUTH EVERY DAY [...] Hour (toPROL XL)Indications:NS VT (nonsustained ventricular tachycardia) ([facility]),Non-ischemi c cardiomyopathy ([facility]),Chronic HFrEF (heart failure with reduced ejection fraction) ([facility]) Take 1 Tablet by mouth in the morning and 1 Tablet before bedtime. 180 Tablet 1 05/31/20 24 Active Clopidogrel Bisulfate 75 MG Oral Tablet (pLAVix) TAKE 1 TABLET BY MOUTH EVERY DAY IN THE MORNING 90 Tablet 3 06/16/20 24 Active Sodium Chloride Flush 0.9 % Intravenous SolutionIndicatio ns:Osteomyelitis of symphysis pubis ([facility]) Administer 10 mL intravenously 4 times a day as needed for Other. Flush PICC before and after IV administration. Single use syringe: discard after use. 900 mL 07/08/20 24 025 Active Methotrexate 2.5 MG Oral Tablet Take 5 Tablets by mouth once a week. 65 Tablet 1 07/18/20 24 Active Furosemide 20 MG Oral Tablet (Lasix)Indication s:FREDY (acute kidney injury) ([facility]),Hyponatremi a Take 1 Tablet by mouth in the morning and 1 Tablet before bedtime. 60 Tablet 5 10/05/19 25 Active Furosemide 20 MG Oral Tablet (Lasix)Indication s:FREDY (acute kidney injury) (HCC),Hyponatremi a Take 1 Tablet by mouth in the morning and 1 Tablet before bedtime. 60 Tablet 5 05/31/20 24 025 Discontin ued(Refil l) documented as of this encounter (statuses as of 10/04/2024) Active Problems Problem Noted Date Diagnosed Date [...] glucose 12/16/2005 Macular degeneration 12/02/1999 DISC DIS [id number] documented as of this encounter (statuses as of 10/04/2024) Resolved Problems Problem Noted Date Diagnosed Date [...] colonoscopy in 5 years ARTHRITIS,RHEUMATOID 07/07/2006 016 [id number] 07/07/200611/01 Overview (11/16/2009): Renamed Per Clinical Trials Billing Project. Pt is a participant in the [facility] (Consortium of Rhe[employer]ology [place] national data collection study. For further information please call Dr Hari Clark or Julia White, RN, CCRC at [phone] [facility] RESEARCH OTHER*[id number] 07/07/2006 01/28/2010 Overview (11/16/2009): Renamed Per Clinical Trials Billing Project. Pt is a participant in the [facility] (Consortium of Rhe[employer]ology [place] national data collection study. For further information please call Dr Hari Clark or Julia White, RN, CCRC at [phone] ADVANCE DIRECTIVE INFORMATION 05/19/2006 06/06/2024 Overview (05/19/2006): Yes-advised to bring copy in to be scanned into EMR. Hearing loss 12/02/1999 03/29/2013 documented as of this encounter (statuses as of 10/04/2024) Immunizations Name Administration Dates Next Due COVID-19 mRNA, LNP-s, No Pre serve, 2-Dose Series ([employer]) 06/14/2021,10/10/2020,09/12/2020 COVID-19, LNP-s, No Preserve , Yousuf-sucrose, [...] of Assessment Author No 06/01/2024 11:43 PM EDLucita Nugent RN * Are you blind or do you have serious difficulty seeing, even when wearing glasses? Answer Date of Assessment Author No 06/01/2024 11:43 PM EDLucita Nugent RN * Do you have serious difficulty [...] encounter Miscellaneous Notes * Telephone Encounter - Atif Dawson MD - 10/04/2024 12:58 PM ESTSigned Prescriptions: Disp Refills Furosemide 20 MG Oral Tablet (Lasix) 60 Tab*5 Sig: Take 1 Tablet by mouth in the morning and 1 Tablet before bedtime. Authorizing Provider: ATIF DAWSON * Telephone Encounter - Ruma Kay LPN - 10/03/2024 8:39 AM ESTPending Prescriptions: Disp Refills Furosemide 20 MG Oral Tablet (Lasix) 60 Tab*5 Sig: Take 1 Tablet by mouth in the morning and 1 Tablet before bedtime. * Telephone Encounter - Ruma Kay LPN - 10/03/2024 8:38 AM EST Prescription refill request received from pharmacy. Pending as requested. Please authorize. documented in this encounter Plan of Treatment Upcoming Encounters Date Type Department Care Team (Late st Contact Info) Description 10/17/2024 10:30 AM EDT Office Visit Cardiology, [facility] [address] [facility] [place] [address] Dmitri Greenfield DO [address] [place] [address] [place] [address] 10/17/2024 11:30 AM EDT Imaging Radiology [facility] [address] [facility] [place] [phone] 10/18/2024 10:00 AM EDT Laboratory Laboratory [facility] [address] [place] [id number] [place], [facility] [address] [place] [address] 10/25/2024 9:45 AM EDT Procedure Only Urology, [facility] [address] [facility] [place] [address] Vinay Sexton MD [address] [place] [address] 10/31/2024 12:00 PM EDT Office Visit Hematology/Oncology [facility] [address] [place] [phone] Korin Fisher CRNP [address] [place] [address] 11/07/2024 10:40 AM EDT Office Visit Nephrology, [facility] [address] [place] [address] Atif Dawson [facility] [address] [facility] [place] [address] 03/21/2025 11:45 AM EDT Telemedicine Urology, [facility] [address] [facility] [place] [address] Vinay Sexton MD [address] [place] [address] Scheduled Procedures Name Priority Associated Diagnoses Date/Ti [...] 06/27/2024, Additional history exists HbA1c 06/02/2025 06/02/2024, 040 12/2023, 06/22/2023, Additional history exists CKD PHOS USE SMARTSET 04567 06/06/202511/2023, 06/05/2024, 06/04/2024, Additional history exists CKD HGB USE SMARTSET 95849 07/11/202507/11, 07/11/2024, 07/04/2024, Additional history exists DTap/Tdap [...] D LEVEL ONCE IN A LIFETIME-USE SMARTSET# [id number] Completed 03/21/2024, 12/25/2023, 05/27/2021, Additional history exists [...] as of this encounter Visit Diagnoses Diagnosis FREDY (acute kidney injury) (HCC) Acute kidney failure, unspecified Hyponatremia Hyposmolality and/or hyponatremia documented in this encounter Advance Directives * Full Code (Latest Code Status on File) Date Activated Date Inactivated Comments 06/01/2024 11:10 PM 06/10/2024 6:36 PM This order reflects the patients wishes and were consensually agreed upon. Question Answer Comments Discussion of Advance Direct teo occurred with: Not Discussed due to patient's condition Care Teams Shot Hole Driller Relationship Specialty Start Date End Date Rhianna Huitron DO [address] [place] [address] PCP - General Family Medicine 09/15/24 documented as of this encounter
--- OUTSIDE RECORDS SUMMARY | 2024-11-18 02:16 | External Medical Summary | Summary of Care ---
Author Name Unknown Organization [facility] Address [address] [place] [address] Phone [phone] Care Team Providers Care Sand Blaster Name Role Phone Rhianna Huitron DO Primary Care Provider [phone] Encounter Details Date Type Department Care Team (Late st Contact Info) Description 07/13/2024 Telephone Urology, [facility] [address] [facility] [place] [address] Vinay Sexton MD [address] [place] [address] Allergies Active Allergy Reactions Criticality Noted Date Comments Brent Inhibitors Cough Low 11/26/2017 Alendronate Sodium Muscle pain 04/11/2019 Heartburn, constipation, joint pain Misoprostol Diarrhea 08/08/2003 Niacin Er (Antihyperlipidemic) 11/26/2010 Gas, hot flashes Pollen 01/01/2018 Watery eyes, sneezing Pravastatin 02/26/2007 Upset stomach, all .Statins Simvastatin 02/26/2007 Upset stomach documented as of this encounter (statuses as of 09/05/2024) Medications ASPIR-81 81 MG PO TBEC 1 [...] Hour (toPROL XL)Indications:NSV T (nonsustained ventricular tachycardia) ([facility]),Non-ischemic cardiomyopathy ([facility]),Chronic HFrEF (heart failure with reduced ejection fraction) ([facility]) Take 1 Tablet by mouth in the morning and 1 Tablet before bedtime. 180 Tablet 1 05/31/20 24 Active Furosemide 20 MG Oral Tablet (Lasix)Indications :FREDY (acute kidney injury) ([facility]),Hyponatremia Take 1 Tablet by mouth in the morning and 1 Tablet before bedtime. 60 Tablet 5 05/31/20 24 Active Clopidogrel Bisulfate 75 MG Oral Tablet (pLAVix) TAKE 1 TABLET BY MOUTH EVERY DAY IN THE MORNING 90 Tablet 3 06/16/20 24 Active Sodium Chloride Flush 0.9 % Intravenous SolutionIndication s:Osteomyelitis of symphysis pubis ([facility]) Administer 10 mL intravenously 4 times a day as needed for Other. Flush PICC before and after IV administration. Single use syringe: discard after use. 900 mL 07/08/20 24 025 Active documented as of this encounter (statuses as of 09/05/2024) Active Problems Problem Noted Date Diagnosed Date [...] glucose 12/16/2005 Macular degeneration 12/02/1999 DISC DIS [id number] documented as of this encounter (statuses as of 09/05/2024) Resolved Problems Problem Noted Date Diagnosed Date [...] colonoscopy in 5 years ARTHRITIS,RHEUMATOID 07/07/2006 016 [id number] 07/07/200611/01 Overview (11/16/2009): Renamed Per Clinical Trials Billing Project. Pt is a participant in the [facility] (Consortium of Rheumatology Researchers of [place]) national data collection study. For further information please call Dr Hari Clark or Julia White, RN, CCRC at [phone] [facility] RESEARCH OTHER*[id number] 07/07/2006 01/28/2010 Overview (11/16/2009): Renamed Per Clinical Trials Billing Project. Pt is a participant in the [facility] (Consortium of Rheumatology Researchers [facility]) national data collection study. For further information please call Dr Hari Clark or Julia White, RN, CCRC at [phone] ADVANCE DIRECTIVE INFORMATION 05/19/2006 06/06/2024 Overview (05/19/2006): Yes-advised to bring copy in to be scanned into EMR. Hearing loss 12/02/1999 03/29/2013 documented as of this encounter (statuses as of 09/05/2024) Immunizations Name Administration Dates Next Due COVID-19 mRNA, LNP-s, No Pre serve, 2-Dose Series ([employer]) 06/14/2021,10/10/2020,09/12/2020 COVID-19, LNP-s, No Preserve , Yousuf-sucrose, [...] Telephone Encounter - Elena Figueroa LPN - 07/13/2024 10:59 AM EST Spoke with our CT department. Ok to add patient at 07/15 at 4PM. Patient uses [facility] as transportation. Spoke with pt, he is aware of new appointment. Patient will call [facility] to arrange transportation. Patient will contact office if transportation is unavailable. Thank you Ruma * Telephone Encounter - Vinay Sexton MD - 07/13/2024 8:34 AM EST At the time of visit Thursday, STAT CT noncontrast was ordered to evaluate osteomyelitis before discontinuation of vancomycin (today). It looks like CT is scheduled Jul 21 - can we please move up CHUCHO before patient has been off vanco too long? Let me know when complete. Thx, HM documented in this encounter Plan of Treatment Upcoming Encounters Date Type Department Care Team (Late st Contact Info) Description 09/12/2024 10:40 AM EST Office Visit Nephrology, [facility] [address] [place] [address] Abhinav Dawson MD [address] [place] [id number] 09/21/2024 10:00 AM EST Procedure Only Urology, [facility] [address] [facility] [place] [address] Vinay Sexton MD [address] [place] [address] 10/17/2024 10:30 AM EDT Office Visit Cardiology, [facility] [address] [facility] [place] [address] Dmitri Greenfield DO 132 [facility] [place] [address] 10/18/2024 10:00 AM EDT Laboratory Laboratory [facility] [place] [address] [place] [phone] Adia Hobbs [facility] [address] [place] [address] 10/25/2024 4:00 PM EDT Office Visit Hematology/Oncology [facility] [place] [address] [place] [address] Korin Fisher CRNP [address] [place] [address] 03/21/2025 11:45 AM EDT Telemedicine Urology, [facility] [address] [facility] [place] [address] Vinay Sexton MD [address] [place] [address] Scheduled Procedures Name Priority Associated Diagnoses [...] 12/25/2021, Additional history exists GFR 01/09/2025 07/11/2024, 120 09/2023, 06/27/2024, Additional history exists HbA1c 06/02/2025 06/02/2024, 04/0 12/2023, 06/22/2023, Additional history exists CKD PHOS USE SMARTSET 23371 06/06/2025 110 11/2023, 06/05/2024, 06/04/2024, Additional history exists CKD HGB USE SMARTSET 92758 07/11/202507/11, 07/11/2024, 07/04/2024, Additional history exists DTap/Tdap [...] D LEVEL ONCE IN A LIFETIME-USE SMARTSET# 38061 Completed 03/21/2024, 12/25/2023, 05/27/2021, Additional history exists [...] Question Answer Comments Discussion of Advance Direct eto occurred with: Not Discussed due to patient's condition Care Teams Sand Blaster Relationship Specialty Start Date End Date Rhianna Huitron DO PCP - General Family Medicine 07/11/19 documented as of this encounter
--- OUTSIDE RECORDS SUMMARY | 2024-11-18 02:16 | External Medical Summary | Summary of Care ---
Author Name Unknown Organization [facility] Address [address] [place] [address] Phone [phone] Care Team Providers Care Retail Merchandising Specialist Name Role Phone Rhianna Huitron DO Primary Care Provider [phone] Reason for Visit * Reason Comments Outpatient Testing Encounter Details Date Type Department Care Team (Late st Contact Info) Description 10/12/2024 9:10 AM EDT Laboratory Laboratory, [facility] [address] [facility] [phone] [facility] [address] [facility] [address] Prostate cancer (HCC); Anemia, unspecified type; Vesical fistula Allergies Active Allergy Reactions Criticality Noted Date Comments Brent Inhibitors Cough Low 11/26/2017 Alendronate Sodium Muscle pain 04/11/2019 Heartburn, constipation, joint pain Misoprostol Diarrhea 08/08/2003 Niacin Er (Antihyperlipidemic) 11/26/2010 Gas, hot flashes Pollen 01/01/2018 Watery eyes, sneezing Pravastatin 02/26/2007 Upset stomach, all .Statins Simvastatin 02/26/2007 Upset stomach documented as of this encounter (statuses as of 10/12/2024) Medications ASPIR-81 81 MG PO TBEC 1 [...] Hour (toPROL XL)Indications:NSV T (nonsustained ventricular tachycardia) ([facility]),Non-ischemic cardiomyopathy ([facility]),Chronic HFrEF (heart failure with reduced ejection fraction) ([facility]) Take 1 Tablet by mouth in the morning and 1 Tablet before bedtime. 180 Tablet 1 05/31/20 24 Active Clopidogrel Bisulfate 75 MG Oral Tablet (pLAVix) TAKE 1 TABLET BY MOUTH EVERY DAY IN THE MORNING 90 Tablet 3 06/16/20 24 Active Sodium Chloride Flush 0.9 % Intravenous SolutionIndication s:Osteomyelitis of symphysis pubis ([facility]) Administer 10 mL intravenously 4 times a day as needed for Other. Flush PICC before and after IV administration. Single use syringe: discard after use. 900 mL 07/08/20 24 025 Active Methotrexate 2.5 MG Oral Tablet Take 5 Tablets by mouth once a week. 65 Tablet 1 07/18/20 24 Active Furosemide 20 MG Oral Tablet (Lasix)Indications :FREDY (acute kidney injury) ([facility]),Hyponatremia Take 1 Tablet by mouth in the morning and 1 Tablet before bedtime. 60 Tablet 5 10/05/19 25 Active documented as of this encounter (statuses as of 10/12/2024) Active Problems Problem Noted Date Diagnosed Date [...] glucose 12/16/2005 Macular degeneration 12/02/1999 DISC DIS [id number] documented as of this encounter (statuses as of 10/12/2024) Resolved Problems Problem Noted Date Diagnosed Date [...] colonoscopy in 5 years ARTHRITIS,RHEUMATOID 07/07/2006 016 [id number] 07/07/200611/01 Overview (11/16/2009): Renamed Per Clinical Trials Billing Project. Pt is a participant in the [employer] (Consortium of Rheumatology Researchers [place]) national data collection study. For further information please call Dr Hari Clark or Julia White, RN, CCRC at [phone] [facility] RESEARCH OTHER*[id number] 07/07/2006 01/28/2010 Overview (11/16/2009): Renamed Per Clinical Trials Billing Project. Pt is a participant in the [employer] (Consortium of Rheumatology Researchers [place] national data collection study. For further information please call Dr Hari Clark or Julia White, RN, CCRC at [phone] ADVANCE DIRECTIVE INFORMATION 05/19/2006 06/06/2024 Overview (05/19/2006): Yes-advised to bring copy in to be scanned into EMR. Hearing loss 12/02/1999 03/29/2013 documented as of this encounter (statuses as of 10/12/2024) Immunizations Name Administration Dates Next Due COVID-19 mRNA, LNP-s, No Pre serve, 2-Dose Series ([employer]) 06/14/2021,10/10/2020,09/12/2020 COVID-19, LNP-s, No Preserve , Yousuf-sucrose, Ages 12+ (Pfizer) 12/25/2021 Covid-19, Mrna, Lnp-s, Pf, B ivalent, 30 Mcg, IM, 12 yrs and above ([employer]) 05/23/2022 Pneumococcal Conjugate Vacc, 13 Valent (Prevnar) [...] EDLucita Nugent RN documented in this encounter Plan of Treatment Upcoming Encounters Date Type Department Care Team (Late st Contact Info) Description 10/17/2024 10:30 AM EDT Office Visit Cardiology, [facility] [address] [place] [address] Dmitri Greenfield, DO [address] [place] [address] 10/17/2024 11:30 AM EDT Imaging Radiology [address] 132 [facility] [place] [phone] 10/18/2024 10:00 AM EDT Laboratory Laboratory [facility] [address] [place] [address] Faby, Lab [facility] [address] [facility] [place] [address] 10/25/2024 9:45 AM EDT Procedure Only Urology, [facility] 132 [facility] [place] [address] Vinay Sexton MD [address] [place] [address] 10/31/2024 12:00 PM EDT Office Visit Hematology/Oncology [facility] [address] [place] [address] Korin Fisher CRNP [address] [place] [address] 11/07/2024 10:40 AM EDT Office Visit Nephrology, [facility] [address] [facility] [place] [address] Abhinav Dawson MD [address] [place] [address] 03/21/2025 11:45 AM EDT Telemedicine Urology, [facility] 132 [facility] [place] [address] Vinay Sexton MD [address] [place] [address] Pending Results Name Type Priority Associated Diagnoses Date /Time PSA Lab STAT Prostate cancer (HCC) Anemia, unspecified type 10/12/2024 9:54 AM EDT Scheduled Procedures Name Priority Associated [...] Additional history exists CKD PHOS USE SMARTSET 00267 06/06/20250 11/2023, 06/05/2024, 06/04/2024, Additional history exists CKD HGB USE SMARTSET 31581 10/12/202510/12, 10/12/2024, 07/11/2024, Additional history exists DTap/Tdap [...] D LEVEL ONCE IN A LIFETIME-USE SMARTSET# 67614 Completed 03/21/2024, 12/25/2023, 05/27/2021, Additional history exists [...] Date/Time Associated Diagnosis Comments DIFFERENTIAL, AUTOMATED STAT 10/12/2024 9:54 AM EDT Prostate cancer (HCC) Anemia, unspecified type COMPREHENSIVE METABOLIC PANEL STAT 10/12/2024 9:54 AM EDT Prostate cancer (HCC) Anemia, unspecified type CBC STAT 10/12/2024 9:54 AM EDT Prostate cancer (HCC) Anemia, unspecified type CBC STAT 10/12/2024 9:54 AM EDT Prostate cancer (HCC) Anemia, unspecified type documented in this encounter Results * (ABNORMAL) DIFFERENTIAL, AUTOMATED (10/12/2024 9:54 AM EDT) WBC 6.28 4.00 - 10.80 K/uL 10/12/2024 10:07 AM EDT [facility] [place] [facility]10 Neutrophils % 83.6(H) 40.0 - 75.0 % 10/12/2024 10:07 AM EDT [facility] [place] 57-10 Lymphocytes % 8.1(L) 18.0 - 42.0 % 10/12/2024 10:07 AM EDT [facility] [place] 57-10 Monocytes % 5.1 1.0 - 11.0 % 10/12/2024 10:07 AM EDT [facility] [place] 57-10 Eosinophils % 3.0 0.0 - 6.0 % 10/12/2024 10:07 AM EDT [facility] [place] 57-10 Basophils % 0.2 0.0 - 2.0 % 10/12/2024 10:07 AM EDT [facility] [place] 57-10 Absolute Neutrophils 5.25 1.80 - 7.70 K/uL 10/12/2024 10:07 AM EDT [facility] [place] 57-10 Absolute Lymphocytes 0.51(L) 1.00 - 4.80 K/ul 10/12/2024 10:07 AM EDT [facility] [place] 57-10 Absolute Monocytes 0.32 0.00 - 1.10 K/uL 10/12/2024 10:07 AM EDT [facility] [place] 57-10 Absolute Eosinophils 0.19 0.00 - 0.70 K/uL 10/12/2024 10:07 AM EDT [facility] [place] 57[facility]10 Absolute Basophils 0.01 0.00 - 0.20 K/uL 10/12/2024 10:07 AM EDT [facility] [place] 57-10 Blood Venous blood specimen / Unknown Venipuncture / Unknown 10/12/2024 9:54 AM EDT 10/12/2024 9:54 AM EDT us Korin ALY LAB BLOOD ORDERABLES Fi nal Result [facility] 57-[address] [place] [address] * (ABNORMAL) CBC (10/12/2024 9:54 AM EDT) WBC 6.28 4.00 - 10.80 K/uL 10/12/2024 10:07 AM EDT [facility] [place] 57-10 RBC 3.73 4.50 - 5.25 M/uL 10/12/2024 10:07 AM EDT [facility] [place] 57-10 HGB 10.4(L) 14.0 - 16.8 g/dL 10/12/2024 10:07 AM EDT [facility] [place] 57-10 HCT 32.8(L) 40.0 - 48.4 % 10/12/2024 10:07 AM EDT [facility] [place] 57-10 MCV 87.9 82.0 - 99.5 fL 10/12/2024 10:07 AM EDT [facility] [place] 5710 MCH 27.9 27.0 - 34.0 pg 10/12/2024 10:07 AM EDT [facility] [place] 5710 MCHC 31.7 32.0 - 36.0 g/dL 10/12/2024 10:07 AM EDT [facility] [place] 5710 RDW 17.8 11.5 - 15.5 % 10/12/2024 10:07 AM EDT [facility] [place] 5710 PLT 336 140 - 400 K/uL 10/12/2024 10:07 AM EDT [facility] [place] 5710 MPV 9.5 6.6 - 11.1 fL 10/12/2024 10:07 AM EDT [facility] [place] [facility] Blood Venous blood specimen / Unknown Venipuncture / Unknown 10/12/2024 9:54 AM EDT 10/12/2024 9:54 AM EDT Korin ALY LAB BLOOD ORDERABLES Fi nal Result [facility] [place] [address] [address] [place] [address] * (ABNORMAL) COMPREHENSIVE METABOLIC PANEL (10/12/2024 9:54 AM EDT) BUN 18 6 - 20 mg/dL 10/12/2024 10:24 AM EDT [facility] [place] [address] CREATININE 1.0 0.6 - 1.2 mg/dL 10/12/2024 10:24 AM EDT [facility] [place] 5710 EGFR 76 >=60 mL/min 10/12/2024 10:24 AM EDT [facility] [place] 5710 Comment:eGFR is calculated b ased on the CKD-EPI 2020 equation. SODIUM 130(L) 135 - 146 mmol/L 10/12/2024 10:24 AM EDT [facility] [place] 57-10 POTASSIUM 4.3 3.5 - 5.1 mmol/L 10/12/2024 10:24 AM EDT [facility] [place] 57-10 CHLORIDE 91(L) 98 - 107 mmol/L 10/12/2024 10:24 AM EDT [facility] [place] 57-10 CO2 28 22 - 32 mmol/L 10/12/2024 10:24 AM EDT [facility] [place] 57-10 ANION GAP 11 7 - 15 mmol/L 10/12/2024 10:24 AM EDT [facility] [place] 57-10 GLUCOSE 126(H) 70 - 120 mg/dL 10/12/2024 10:24 AM EDT [facility] [place] 57-10 Albumin 3.3(L) 3.8 - 5.0 g/dL 10/12/2024 10:24 AM EDT [facility] [place] 57-10 AST 16 10 - 50 U/L 10/12/2024 10:24 AM EDT [facility] [place] 57-10 Alkaline Phosphatase 99 35 - 130 U/L 10/12/2024 10:24 AM EDT [facility] [place] 57-10 Bilirubin, Total 0.4 <=1.2 mg/dL 10/12/2024 10:24 AM EDT [facility] [place] 57-10 CALCIUM 9.6 8.4 - 10.2 mg/dL 10/12/2024 10:24 AM EDT [facility] [place] 57-10 Protein 7.5 6.0 - 8.3 g/dL 10/12/2024 10:24 AM EDT [facility] [place] 57-10 ALT 7(L) 10 - 50 U/L 10/12/2024 10:24 AM EDT [facility] [place] 57-10 Blood Venous blood specimen / Unknown Venipuncture / Unknown 10/12/2024 9:54 AM EDT 10/12/2024 9:54 AM EDT us Korin ALY LAB BLOOD ORDERABLES Fi nal Result [facility] 57-10 [address] [place] [address] documented in this encounter Visit Diagnoses Diagnosis Prostate cancer (HCC) Malignant neoplasm of prostate Anemia, unspecified type Vesical fistula Vesical fistula, not elsewhere classified documented in this encounter Advance Directives * Full Code (Latest Code Status on File) Date Activated Date Inactivated Comments 06/01/2024 11:10 PM 06/10/2024 6:36 PM This order reflects the patients wishes and were consensually agreed upon. Question Answer Comments Discussion of Advance Direct teo occurred with: Not Discussed due to patient's condition Care Teams Retail Merchandising Specialist Relationship Specialty Start Date End Date Rhianna Huitron DO [address] [place] [address] PCP - General Family Medicine 09/15/24 documented as of this encounter
--- OUTSIDE RECORDS SUMMARY | 2024-11-18 02:16 | External Medical Summary ---
Author Name Unknown Address Unknown Organization [id number] [address] [place] [address] Laboratory Report Ordering Provider Test Date Status FIDENCIO ROSS 10/12/2024 09:54:34 Final Observation Date Value Abnormality Reference (Units ) Status SYNC LEUKOCYTES IN BLOOD BY AUTOMATED COUNT 10/12/2024 09:54:34 6.28 4.00-10.80 (K/uL) Final Segs 10/12/2024 09:54:34 83.6 Above high normal 40.0-75.0 (%) Final Lymphs % 10/12/2024 09:54:34 8.1 Below low normal 18.0-42.0 (%) Final Monos 10/12/2024 09:54:34 5.1 1.0-11.0 (%) Final Eosinophils 10/12/2024 09:54:34 3.0 0.0-6.0 (%) Final Basos 10/12/2024 09:54:34 0.2 0.0-2.0 (%) Final Absolute Segs 10/12/2024 09:54:34 5.25 1.80-7.70 (K/uL) Final Lymphs, absolute 10/12/2024 09:54:34 0.51 Below low normal 1.00-4.80 (K/ul) Final Monos, Abs 10/12/2024 09:54:34 0.32 0.00-1.10 (K/uL) Final Eos, Abs 10/12/2024 09:54:34 0.19 0.00-0.70 (K/uL) Final Basos, Abs 10/12/2024 09:54:34 0.01 0.00-0.20 (K/uL) Final Performing Location [facility] [address] [place] [address]
--- OUTSIDE RECORDS SUMMARY | 2024-11-18 02:16 | External Medical Summary ---
Author Name Unknown Address Unknown Organization [id number] [place] [place] [address] - [address] [place] [address] Laboratory Report Ordering Provider Test Date Status FIDENCIO ROSS 10/12/2024 09:54:34 Final Observation Date Value Abnormality Reference (Units ) Status BUN 10/12/2024 09:54:34 18 6-20 (mg/dL) Final Creatinine 10/12/2024 09:54:34 1.0 0.6-1.2 (mg/dL) Final Glomerular filtration rate/1.73 sq M.predicted [Volume Rate/Area] in Serum, Plasma or Blood by Creatinine-based formula (CKD-EPI) 10/12/2024 09:54:34 76 >=60 (mL/min) Final eGFR is calculated based on the CKD-EPI 2020 equation. Sodium 10/12/2024 09:54:34 130 Below low normal 135 -146 (mmol/L) Final Potassium 10/12/2024 09:54:34 4.3 3.5-5.1 (m mol/L) Final Cl 10/12/2024 09:54:34 91 Below low normal 98- 107 (mmol/L) Final CO2 10/12/2024 09:54:34 28 22-32 (mmo l/L) Final Anion gap 10/12/2024 09:54:34 11 7-15 (mmol /L) Final Glucose 10/12/2024 09:54:34 126 Above high normal 70 -120 (mg/dL) Final Albumin 10/12/2024 09:54:34 3.3 Below low normal 3.8 -5.0 (g/dL) Final AST (Aspartate aminotransferase) 10/12/2024 09:54:34 16 10-50 (U/L) Fin al Alk Phos 10/12/2024 09:54:34 99 35-130 (U/ L) Final Bilirubin, Total 10/12/2024 09:54:34 0.4 <=1 .2 (mg/dL) Final Calcium 10/12/2024 09:54:34 9.6 8.4-10.2 ( mg/dL) Final Protein 10/12/2024 09:54:34 7.5 6.0-8.3 (g /dL) Final ALT (Alanine aminotransferase) 10/12/2024 09:54:34 7 Below low normal 10-50 (U/L) Final Performing Location [facility] [employer] 57-1 [address] [facility] [address]
--- OUTSIDE RECORDS SUMMARY | 2024-11-18 02:16 | External Medical Summary | Summary of Care ---
Author Name Unknown Organization [facility] Address [address] [place] [address] Phone [phone] Care Team Providers Care Merchandise For Resale Purchasing Agent Name Role Phone Rhianna Huitron DO Primary Care Provider [phone] Reason for Visit * Reason Onset Date Comments Fax 07/29/2024 [facility] Encounter Details Date Type Department Care Team (Late st Contact Info) Description 07/29/2024 Telephone [facility], Viky Verde [address] [place] [phone] Rhianna Huitron DO [address] [address] Fax ([facility]) Allergies Active Allergy Reactions Criticality Noted Date Comments Brent Inhibitors Cough Low 11/26/2017 Alendronate Sodium Muscle pain 04/11/2019 Heartburn, constipation, joint pain Misoprostol Diarrhea 08/08/2003 Niacin Er (Antihyperlipidemic) 11/26/2010 Gas, hot flashes Pollen 01/01/2018 Watery eyes, sneezing Pravastatin 02/26/2007 Upset stomach, all .Statins Simvastatin 02/26/2007 Upset stomach documented as of this encounter (statuses as of 07/29/2024) Medications ASPIR-81 81 MG PO TBEC 1 [...] (toPROL XL)Indications:NSV T (nonsustained ventricular tachycardia) ([facility]),Non-ischemic cardiomyopathy ([facility]),Chronic HFrEF (heart failure with reduced ejection fraction) ([facility]) Take 1 Tablet by mouth in the morning and 1 Tablet before bedtime. 180 Tablet 1 05/31/20 24 Active Furosemide 20 MG Oral Tablet (Lasix)Indications :FREDY (acute kidney injury) ([facility]),Hyponatremia Take 1 Tablet by mouth in the morning and 1 Tablet before bedtime. 60 Tablet 5 05/31/20 24 Active Clopidogrel Bisulfate 75 MG Oral Tablet (pLAVix) TAKE 1 TABLET BY MOUTH EVERY DAY IN THE MORNING 90 Tablet 3 06/16/20 24 Active Sodium Chloride Flush 0.9 % Intravenous SolutionIndication s:Osteomyelitis of symphysis pubis ([facility]) Administer 10 mL intravenously 4 times a day as needed for Other. Flush PICC before and after IV administration. Single use syringe: discard after use. 900 mL 07/08/20 24 025 Active Methotrexate 2.5 MG Oral Tablet Take 5 Tablets by mouth once a week. 65 Tablet 1 07/18/20 24 Active documented as of this encounter (statuses as of 07/29/2024) Active Problems Problem Noted Date Diagnosed Date [...] glucose 12/16/2005 Macular degeneration 12/02/1999 DISC DIS [id number] documented as of this encounter (statuses as of 07/29/2024) Resolved Problems Problem Noted Date Diagnosed Date [...] colonoscopy in 5 years ARTHRITIS,RHEUMATOID 07/07/2006 016 [id number] 07/07/200611/01 Overview (11/16/2009): Renamed Per Clinical Trials Billing Project. Pt is a participant in the [employer] (Consortium of Rheumatology Researchers of [place]) national data collection study. For further information please call Dr Hari Clark or Julia White, RN, CCRC at [phone] [facility] RESEARCH OTHER*[id number] 07/07/2006 01/28/2010 Overview (11/16/2009): Renamed Per Clinical Trials Billing Project. Pt is a participant in the [employer] (Consortium of Rheumatology Researchers [place]) national data collection study. For further information please call Dr Hari Clark or Julia White, RN, CCRC at [phone] ADVANCE DIRECTIVE INFORMATION 05/19/2006 06/06/2024 Overview (05/19/2006): Yes-advised to bring copy in to be scanned into EMR. Hearing loss 12/02/1999 03/29/2013 documented as of this encounter (statuses as of 07/29/2024) Immunizations Name Administration Dates Next Due COVID-19 mRNA, LNP-s, No Pre serve, 2-Dose Series ([employer]) 06/14/2021,10/10/2020,09/12/2020 COVID-19, LNP-s, No Preserve , Yousuf-sucrose, Ages 12+ (Pfizer) 12/25/2021 Covid-19, Mrna, Lnp-s, Pf, B ivalent, 30 Mcg, IM, 12 yrs and above (oroeco) 05/23/2022 Pneumococcal Conjugate Vacc, 13 Valent (Prevnar) [...] Telephone Encounter - Luba Mondragon LPN - 07/29/2024 2:36 PM EST Received Fax for BFPROVIDERS: Dr. Rhianna Huitron PT PLAN OF CARE/EVALUATION received from [facility] and FAXED documented in this encounter Plan of Treatment Upcoming Encounters Date Type Department Care Team (Late st Contact Info) Description 08/15/2024 1:00 PM EST Procedure Only Urology, [facility] [address] [place] [address] Vinay Sexton MD [address] [address] 09/08/2024 3:40 PM EST Office Visit Nephrology, [facility] [address] [place] [address] Bryson Ellis MD [address] [place] [address] 10/17/2024 10:30 AM EDT Office Visit Cardiology, [facility] [address] [place] [address] Dmitri Greenfield DO [address] [place] [address] 10/18/2024 10:00 AM EDT Laboratory Laboratory [facility] [address] [place] [phone] Faby, Lab [facility] [address] [place] [address] 10/25/2024 4:00 PM EDT Office Visit Hematology/Oncology [facility] [address] [place] [phone] Korin Fisher CRNP [address] [place] [address] 03/21/2025 11:45 AM EDT Telemedicine Urology, [facility] [address] [facility] [place] [address] Vinay Sexton MD [address] [place] [address] Scheduled Procedures Name Priority Associated Diagnoses Date/Ti [...] Additional history exists CKD PHOS USE SMARTSET 32042 06/06/202511/2023, 06/05/2024, 06/04/2024, Additional history exists CKD HGB USE SMARTSET 61397 07/11/202507/11, 07/11/2024, 07/04/2024, Additional history exists DTap/Tdap [...] D LEVEL ONCE IN A LIFETIME-USE SMARTSET# 29312 Completed 03/21/2024, 12/25/2023, 05/27/2021, Additional history exists [...] Discussed due to patient's condition Care Teams Merchandise For Resale Purchasing Agent Relationship Specialty Start Date End Date Rhianna Huitron DO PCP - General Family Medicine 07/11/19 documented as of this encounter
--- OUTSIDE RECORDS SUMMARY | 2024-11-18 02:16 | External Medical Summary | Summary of Care ---
Author Name Unknown Organization [facility] Address [address] [place] [address] Phone [phone] Care Team Providers Care Nylon Mender Name Role Phone Rhianna Huitron DO Primary Care Provider Reason for Visit * Reason Onset Date Comments Appointment 07/12/2024 Encounter Details Date Type Department Care Team (Late st Contact Info) Description 07/12/2024 Telephone Cardiology, [facility] [address] [place] [address] Chiara Meyer CRNP [address] [place] [address] Appointment Allergies Active Allergy Reactions Criticality Noted [...] MG PO TBEC 1 TABLET DAILY 0 006 Active Acetaminophen 325 MG Oral Tablet (Tylenol) 2 Tablets. 024 Active Folic Acid 1 MG Oral TabletIndications :Arthritis, rheumatoid ([facility]) TAKE 1 TABLET BY MOUTH EVERY DAY IN THE MORNING 90 Tablet 3 024 Active Tamsulosin HCl 0.4 MG Oral Capsule (Flomax) TAKE 1 CAPSULE BY MOUTH EVERY MORNING 90 Capsule 3 024 Active Losartan Potassium 25 MG Oral Tablet (Cozaar) One half tablet by mouth daily 45 Tablet 3 024 Active Rosuvastatin Calcium 5 MG Oral Tablet (Crestor) TAKE 1 TABLET BY MOUTH EVERY DAY IN THE MORNING 90 Tablet 3 024 Active Albuterol Sulfate HFA 108 (90 Base) MCG/ACT Inhalation Aerosol Solution Inhale 1 Puff by mouth every 6 hours as needed for Wheezing. 024 Active Melatonin 3 MG Oral Tablet Take 2 Tablets by mouth at bedtime. 024 Active Metoprolol Succinate ER 25 MG Oral Tablet Extended Release 24 Hour (toPROL XL)Indications:NS VT (nonsustained ventricular tachycardia) ([facility]),Non-ischemi c cardiomyopathy ([facility]),Chronic HFrEF (heart failure with reduced ejection fraction) ([facility]) Take 1 Tablet by mouth in the morning and 1 Tablet before bedtime. 180 Tablet 1 024 Active Clopidogrel Bisulfate 75 MG Oral Tablet (pLAVix) TAKE 1 TABLET BY MOUTH EVERY DAY IN THE MORNING 90 Tablet 3 024 Active Sodium Chloride Flush 0.9 % Intravenous SolutionIndicatio ns:Osteomyelitis of symphysis pubis ([facility]) Administer 10 mL intravenously 4 times a day as needed for Other. Flush PICC before and after IV administration. Single use syringe: discard after use. 900 mL 024 2024 Active Magnesium Oxide -Mg Supplement 400 (240 Mg) MG Oral Tablet (Mag-Ox) Take 1 Tablet by mouth in the morning and 1 Tablet before bedtime. 180 Tablet 3 024 2023 Discontinued(P atient preference/dis continuation) Furosemide 20 MG Oral Tablet (Lasix)Indication s:FREDY (acute kidney injury) (HCC),Hyponatremi a Take 1 Tablet by mouth in the morning and 1 Tablet before bedtime. 60 Tablet 5 024 2024 Discontinued(R efill) Urea 15 GM Oral Packet (Ure-Na)Indicatio ns:FREDY (acute kidney injury) (HCC),Hyponatremi a Take 15 g by mouth in the morning and 15 g before bedtime. 60 Packet 5 024 2023 Discontinued Heparin Na (Pork) Lock Flsh PF 10 UNIT/ML Intravenous SolutionIndicatio ns:Osteomyelitis of symphysis pubis (HCC) Inject 5 mL intravenously 2 times a day as needed for Other. Flush PICC after IV administration, following saline flush. Flush unused lumen twice daily. Single use syringe: discard after use. 400 mL 024 2023 Discontinued Ampicillin-Sulbac naylor (Unasyn) 3 g in NSS 65 mL infusionIndicatio ns:Osteomyelitis of symphysis pubis ([facility]) Administer 3 g over 30 minutes intravenously every 6 hours. 24 g 07/12/20 24 5:36 PM EST 024 2023 Discontinued Vancomycin (Vancocin) 1,250 mg in NSS 250 mL infusionIndicatio ns:Osteomyelitis of symphysis pubis (HCC) Administer 1,250 mg over 90 minutes intravenously every 24 hours. 1250 mg 07/12/20 24 5:36 PM EST 024 2023 Discontinued documented as of this encounter (statuses [...] glucose 12/16/2005 Macular degeneration 12/02/1999 DISC DIS [id number] documented as of this encounter (statuses as [...] colonoscopy in 5 years ARTHRITIS,RHEUMATOID 07/07/2006 016 [id number] 07/07/200611/01 Overview (11/16/2009): Renamed Per Clinical Trials Billing Project. Pt is a participant in the [employer] (Consortium of Rheumatology Researchers of [facility]) national data collection study. For further information please call Dr Hari Clark or Julia White, RN, CCRC at [phone] [facility] RESEARCH OTHER*[id number] 07/07/2006 01/28/2010 Overview (11/16/2009): Renamed Per Clinical Trials Billing Project. Pt is a participant in the [facility] ([facility] of Rheumatology Researchers of [facility]) national data collection study. For further information please call Dr Hari Clark or Julia White, RN, CCRC at [phone] ADVANCE DIRECTIVE INFORMATION 05/19/2006 06/06/2024 Overview (05/19/2006): [...] encounter Miscellaneous Notes * Telephone Encounter - Chiara Meyer CRNP - 07/14/2024 4:42 PM EST Addressed in a separate TE. He already canceled his appt with me. Needs to reschedule his appt for next available. No to Telemed. I have never even seen this patientbefore, he has scheduled to see me twice and cancelled. New appt MUST be In person. No Telemed. * Telephone Encounter - Antionette Cheung OSA - 07/12/2024 2:15 PM EST Person calling: Markus Akiko Relationship to patient: Self Phone/Fax to return call: [phone] Reason for call(brief): Appointment Pharmacy: NA Provider Name:Chiara ALY Detailed message to office:Patient is wheelchair bound and depends on others for transportation. Heis asking if his 12-19 appointment could be telemed. Please advise. Thank you, KARLOS Velarde documented in this encounter Plan of Treatment Upcoming Encounters Date Type Department Care Team (Late st Contact Info) Description 10/17/2024 10:30 AM EDT Office Visit Cardiology, [facility] [address] [place] [address] Dmitri Greenfield, [address] [place] [address] 10/17/2024 11:30 AM EDT Imaging [facility] [address] [place] [phone] 10/18/2024 10:00 AM EDT Laboratory Laboratory [facility] [address] [place] [phone] Faby, Lab [facility] [address] [place] [address] 10/25/2024 9:45 AM EDT Procedure Only Urology, [facility] [address] [facility] [place] [address] Vinay Sexton MD [address] [place] [address] 10/31/2024 12:00 PM EDT Office Visit Hematology/Oncology [facility] [address] [place] [phone] Korin Fisher CRNP [address] [place] [address] 11/07/2024 10:40 AM EDT Office Visit Nephrology, [facility] [address] [place] [phone] Abhinav Dawson MD [address] [place] [id number] 03/21/2025 11:45 AM EDT Telemedicine Urology, [facility] [address] [facility] [place] [address] Vinay Sexton MD [address] [address] [...] Additional history exists CKD PHOS USE SMARTSET 16605 06/06/202511/2023, 06/05/2024, 06/04/2024, Additional history exists CKD HGB USE SMARTSET 87811 07/11/202507/11, 07/11/2024, 07/04/2024, Additional history exists DTap/Tdap [...] D LEVEL ONCE IN A LIFETIME-USE SMARTSET# 45628 Completed 03/21/2024, 12/25/2023, 05/27/2021, Additional history exists [...] Discussed due to patient's condition Care Teams Nylon Mender Relationship Specialty Start Date End Date Rhianna Huitron DO [address] [address] PCP - General Family Medicine 09/15/24 documented as of this encounter
--- OUTSIDE RECORDS SUMMARY | 2024-11-18 02:16 | External Medical Summary | Summary of Care ---
Author Name Unknown Organization [facility] Address [address] [place] [address] Phone [phone] Care Team Providers Care Cotton Jammer Name Role Phone Kat Huitron DO Primary Care Provider [phone] Reason for Referral * Precert (Within 10 days (routine)) - Pending Review Specialty Diagnoses / Procedures Referred By Contaakash t Referred To Contact Radiology Diagnoses Vesical fistula Procedures CT ABD/PELVIS W IV CONTRAST - WO ORAL CONTRAST Vinay Sexton MD [address] [place] [address] Phone: tel: fax: Referral ID Status Reason Start Date Expiration Date V isits Requested Visits Authorized [id number] Pending Review 10/19/[phone] Encounter Details Date Type Department Care Team (Latest Contact Info) Description 09/21/2024 10:00 AM EST Procedure Only Urology, [facility] [address] [facility] [place] [address] Vinay Sexton MD [address] [place] [address] Vesical fistula*; Prostate cancer (HCC); Obstructive uropathy; BPH with obstruction/lower urinary tract symptoms; Retention of urine Allergies Active Allergy Reactions Criticality Noted Date Comments Brent Inhibitors Cough Low 11/26/2017 Alendronate Sodium Muscle pain 04/11/2019 Heartburn, constipation, joint pain Misoprostol Diarrhea 08/08/2003 Niacin Er (Antihyperlipidemic) 11/26/2010 Gas, hot flashes Pollen 01/01/2018 Watery eyes, sneezing Pravastatin 02/26/2007 Upset stomach, all .Statins Simvastatin 02/26/2007 Upset stomach documented as of this encounter (statuses as of 09/21/2024) Medications ASPIR-81 81 MG PO TBEC 1 TABLET DAILY 0 06/19/20 06 Active Acetaminophen 325 MG Oral Tablet (Tylenol) 2 Tablets. 09/03/19 24 Active Folic Acid 1 MG Oral TabletIndications: Arthritis, rheumatoid ([facility]) TAKE 1 TABLET BY MOUTH EVERY DAY [...] Hour (toPROL XL)Indications:NSV T (nonsustained ventricular tachycardia) ([facility]),Non-ischemic cardiomyopathy ([facility]),Chronic HFrEF (heart failure with reduced ejection fraction) ([facility]) Take 1 Tablet by mouth in the morning and 1 Tablet before bedtime. 180 Tablet 1 05/31/20 24 Active Furosemide 20 MG Oral Tablet (Lasix)Indications :FREDY (acute kidney injury) ([facility]),Hyponatremia Take 1 Tablet by mouth in the morning and 1 Tablet before bedtime. 60 Tablet 5 05/31/20 24 Active Clopidogrel Bisulfate 75 MG Oral Tablet (pLAVix) TAKE 1 TABLET BY MOUTH EVERY DAY IN THE MORNING 90 Tablet 3 06/16/20 24 Active Sodium Chloride Flush 0.9 % Intravenous SolutionIndication s:Osteomyelitis of symphysis pubis (HCC) Administer 10 mL intravenously 4 times a day as needed for Other. Flush PICC before and after IV administration. Single use syringe: discard after use. 900 mL 07/08/20 24 025 Active Methotrexate 2.5 MG Oral Tablet Take 5 Tablets by mouth once a week. 65 Tablet 1 07/18/20 24 Active documented as of this encounter (statuses as of 09/21/2024) Active Problems Problem Noted Date Diagnosed Date [...] glucose 12/16/2005 Macular degeneration 12/02/1999 DISC DIS LCT-EIT-HBOFPT documented as of this encounter (statuses as of 09/21/2024) Resolved Problems Problem Noted Date Diagnosed Date [...] colonoscopy in 5 years ARTHRITIS,RHEUMATOID 07/07/2006 016 [id number] 07/07/200611/01 Overview (11/16/2009): Renamed Per Clinical Trials Billing Project. Pt is a participant in the [employer] ([employer] [place]) national data collection study. For further information please call Dr Hari Clark or Julia White, RN, CCRC at [phone] [facility] RESEARCH OTHER*[id number] 07/07/2006 01/28/2010 Overview (11/16/2009): Renamed Per Clinical Trials Billing Project. Pt is a participant in the [employer] ([employer] [place]) national data collection study. For further information please call Dr Hari Clark or Julia White, RN, CCRC at [phone] ADVANCE DIRECTIVE INFORMATION 05/19/2006 06/06/2024 Overview (05/19/2006): Yes-advised to bring copy in to be scanned into EMR. Hearing loss 12/02/1999 03/29/2013 documented as of this encounter (statuses as of 09/21/2024) Immunizations Name Administration Dates Next Due COVID-19 [...] Progress Notes * Vinay Sexton MD - 09/21/2024 10:00 AM EST [id number] PCP: [place] [address] [phone] Markus Wharton is a 79 year old male, who presents for cystoscopy for complex bautista exchange. Patient's past notes reviewed. Difficulties with osteomyelitis of the pubis are appreciated. Patient and son note catheter has been working well. PSA remains undetectable. BPH: Patient is being seen for BPH today. He has had the following symptoms: slow stream, intermittency and nocturia. Severity is moderate. History of UTI. He has tried tamsulosin increased with BID. He has previously had no surgery done. Patient currently on CIC. Voids in small amounts without catheters. Bautista catheter placed acutely March 2024 Problem has [...] Results Component Value Date/Time CREATININE - [facility] 1.1 07/11/2024 08:28 AM CREATININE - [facility] 1.1 07/04/2024 07:45 AM CREATININE - [facility] 1.1 06/27/2024 01:05 PM CREATININE - [facility] 0.88 05/18/2024 12:00 AM CREATININE - [facility] 1.05 02/27/2021 12:00 AM CREATININE - [facility] 1.07 10/12/2020 12:00 AM CREATININE - [facility] 1.1 07/11/2019 01:37 PM CREATININE - [facility] 1.2 04/25/2019 09:53 AM CREATININE - [facility] 1.0 01/10/2019 09:55 AM CREATININE, RANDOM URINE - [facility] 120 04/10/2022 09:18 AM CREATININE, RANDOM URINE - [facility] 250 12/03/2006 09:18 AM Current Outpatient Medications Medication Sig Dispense [...] date: 08/03/1962 Quit date: 08/03/1997 Years since quittin.1 Passive exposure: Past Smokeless tobacco: Never Tobacco comments: occasional cigar Substance Use Topics Alcohol use: Not Currently Vaping/E-Cigarette Use Vaping/E-Cigarette Use Never User Vaping/E-Cigarette Substances Vaping/E-Cigarette Devices Past Surgical History: Procedure Laterality Date COLONOSCOPY W/ LESION REMOVAL, SNARE 05/10/07 adenomatous repeat in 5 years COLONOSCOPY, DIAGNOSTIC (RECTUM) 05/10/2013 COLONOSCOPY FLEXIBLE PROXIMAL DIAGNOSTIC performed by Teddy Rizvi MD at [facility] COLONOSCOPY, DIAGNOSTIC (RECTUM) 01/21/2019 diverticulosis, repeat 5 yrs/COLONOSCOPY FLEXIBLE PROXIMAL DIAGNOSTIC performed by Teddy Rizvi MD at ENDOSCOPY [facility] IR ASPIRATION ABSCESS/COLLECTION 06/06/2024 REMOVE TONSILS [...] Problem List Diagnosis Macular degeneration DISC DIS [id number] Impaired fasting glucose Encounter for long-term (current) [...] for the procedure. A well lubricated 16 Micronesian flexible cystoscope was introduced through the meatus into the urethra. Urethra demonstrated normal distal urethra up to the level of sphincter, necrotic tissue proximally . Prostatic urethra demonstrated circumferential necrotic tissue. Recurrent inflammatory tissue and bladder neck with cloudy urine and debris was noted within the bladder Mild bladder neck contracture easily bypassed is appreciated . Bladder neck was visualized and bladder was entered. Sterile sa line irrigation was used to distend the bladder which was noted to have moderate to severe inflammation from Bautista catheter without tumor and with debris and with grade 3 trabeculation with cellules and diverticulae. Bladder was distended. Ureteral orifices were noted to be poorly visualized. Afterthis was completed the cystoscope was removed. Patient tolerated the procedure well without complications or difficulties. Amplifier Mechanic was present for entire procedure. Patient voided some of the intravesical volume spontaneously after removal of scope. Eighteen Micronesian coude Bautista catheter replaced without difficulties or resistance, bladder irrigatedand drained without difficulty, cloudy urine with debris appreciated. 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 Last CT scan was in July of 2024. Will plan on repeat CT scan at the time of cystoscopy and catheter exchange next month. Will start regular irrigation seen debris within the bladder. Hopefully, healing will take place with time and cystoscopy with bladder distention will no longer be needed the time of exchange. However, we will not suggs progress considering the patient's previous difficulties. Patient is pleased with his improvement. Above content is personally reviewed. Vinay Sexton MD 7:17 AM 09/21/2024 documented in this encounter Plan of Treatment Upcoming Encounters Date Type Department Care Team (Late st Contact Info) Description 09/28/2024 10:40 AM EST Office Visit Nephrology, [facility] [address] [place] [address] Abhinav Dawson MD [address] [place] [address] 10/17/2024 10:30 AM EDT Office Visit Cardiology, [facility] [address] [facility] [place] [address] Dmitri Greenfield DO [address] [facility] [place] [address] 10/17/2024 11:30 AM EDT Imaging Radiology [address] [facility] [phone] 10/18/2024 10:00 AM EDT Laboratory Laboratory [facility] [address] [place] [phone] [address] [facility] [address] [facility] [place] [address] 10/25/2024 9:45 AM EDT Procedure Only Urology, [facility] [address] [facility] [place] [address] Vinay Sexton MD [address] [place] [address] 10/25/2024 4:00 PM EDT Office Visit Hematology/Oncology [facility] [address] [place] [phone] Korin Fisher CRNP [address] [address] 03/21/2025 11:45 AM EDT Telemedicine Urology, [facility] [address] [place] [address] Vinay Sexton MD [address] [place] [address] Scheduled Orders Name Type Priority Associated Diagnoses Orde r Schedule CYSTOSCOPY Procedures Routine Prostate cancer (HCC) Obstructive uropathy Vesical fistula Ordered: 09/21/2024 BLADDER LAVAGE/INSTILLATION, SIMPLE (PHYSICIAN) Procedures Routine Prostate cancer (HCC) Obstructive uropathy Vesical fistula Ordered: 09/21/2024 INS TEMP INDWELL CATH,COMPL Procedures Routine Prostate cancer (HCC) Obstructive uropathy Vesical fistula Ordered: 09/21/2024 CT ABD/PELVIS W IV CONTRAST - WO ORAL CONTRAST Medical Imaging Routine Vesical fistula Expected: 10/19/2024 (Approximate), Expires: 10/19/2025 CREATININE Lab Routine Vesical fistula Expected: 09/21/2024, Expires: 09/21/2025 Scheduled Procedures Name Priority Associated Diagnoses Date/Ti [...] 12/25/2021, Additional history exists GFR 01/09/2025 07/11/2024, 1209/2023, 06/27/2024, Additional history exists HbA1c 06/02/2025 06/02/2024, 12/2023, 06/22/2023, Additional history exists CKD PHOS USE SMARTSET 46489 06/06/202511/2023, 06/05/2024, 06/04/2024, Additional history exists CKD HGB USE SMARTSET 45114 07/11/202507/11, 07/11/2024, 07/04/2024, Additional history exists DTap/Tdap [...] D LEVEL ONCE IN A LIFETIME-USE SMARTSET# [id number] Completed 03/21/2024, 12/25/2023, 05/27/2021, Additional history exists [...] as of this encounter Visit Diagnoses Diagnosis Vesical fistula- Primary Vesical fistula, not elsewhere classified Prostate cancer (HCC) Malignant neoplasm of prostate Obstructive uropathy Urinary obstruction, unspecified BPH with obstruction/lower urinary tract symptoms Hypertrophy of prostate with urinary obstruction and other lower urinary tract symptoms (LUTS) Retention of urine Retention of urine, unspecified documented in this encounter Advance Directives * Full Code (Latest Code Status on File) Date Activated Date Inactivated Comments 06/01/2024 11:10 PM 06/10/2024 6:36 PM This order reflects the patients wishes and were consensually agreed upon. Question Answer Comments Discussion of Advance Direct teo occurred with: Not Discussed due to patient's condition Care Teams Cotton Jammer Relationship Specialty Start Date End Date Kat Huitron DO [address] [address] PCP - General Family Medicine 09/15/24 documented as of this encounter
--- OUTSIDE RECORDS SUMMARY | 2024-11-18 02:16 | External Medical Summary ---
Author Name Unknown Address Unknown Organization [id number][facility] [address] [place] [address] Laboratory Report Ordering Provider Test Date Status FIDENCIO ROSS 10/12/2024 09:54:34 Final Observation Date Value Abnormality Reference (Units ) Status WBC, Total 10/12/2024 09:54:34 6.28 4.00-10.8 0 (K/uL) Final RBC 10/12/2024 09:54:34 3.73 4.50-5.25 (M/uL) Final Hemoglobin 10/12/2024 09:54:34 10.4 Below low normal 14 .0-16.8 (g/dL) Final HCT 10/12/2024 09:54:34 32.8 Below low normal 40. 0-48.4 (%) Final MCV 10/12/2024 09:54:34 87.9 82.0-99.5 (fL) Final MCH 10/12/2024 09:54:34 27.9 27.0-34.0 (pg) Final MCHC 10/12/2024 09:54:34 31.7 32.0-36.0 (g/dL) Final RDW 10/12/2024 09:54:34 17.8 11.5-15.5 (%) Final Platelets 10/12/2024 09:54:34 336 140-400 (K /uL) Final MPV 10/12/2024 09:54:34 9.5 6.6-11.1 ( fL) Final Performing Location LAB[facility]ORY [facility] [address] [place] [address]
--- OUTSIDE RECORDS SUMMARY | 2024-11-18 02:16 | External Medical Summary ---
Author Name Unknown Address Unknown Organization [id number]:LABORATORY [facility] - [address] [place] [address] Laboratory Report Ordering Provider Test Date Status VANDANAFIDENCIO 10/12/2024 09:54:34 Final Observation Date Value Abnormality Reference (Units ) Status PSA 10/12/2024 09:54:34 <0.02 <4.10 (ng/ mL) Final Performing Location LABORATORY [facility] - [address] [place] [address]
--- OUTSIDE RECORDS SUMMARY | 2024-11-18 02:16 | External Medical Summary | Summary of Care ---
Author Name Unknown Organization [facility] Address [address] [place] [address] Phone [phone] Care Team Providers Care Plate Molder Name Role Phone Rhianna Huitron DO Primary Care Provider [phone] Reason for Referral * Precert (Diagnostic Medical) (Within 10 days (routine)) - Authorized Specialty Diagnoses / Procedures Referred By Contac t Referred To Contact Cardiac Studies Diagnoses Chronic HFrEF (heart failure with reduced ejection fraction) (HCC) NSVT (nonsustained ventricular tachycardia) ([facility]) Procedures ECHO, COMPLETE (2D), TRANS-THORACIC Dmitri Greenfield DO [address] [place] [address] Phone: tel: fax: Referral ID Status Reason Start Date Expiration Date V isits Requested Visits Authorized [id number] Authorized Precert 10/17/2024 999 999 Reason for Visit * Reason Comments Follow Up Encounter Details Date Type Department Care Team (Latest Contact Info) Description 10/17/2024 10:30 AM EDT Office Visit Cardiology, [facility] [address] [place] [address] Dmitri Greenfield DO [address] [place] [address] Chronic HFrEF (heart failure with reduced ejection fraction) ([facility])*; Non-ischemic cardiomyopathy ([facility]); NSVT (nonsustained ventricular tachycardia) ([facility]); Status post insertion of drug-eluting stent into left anterior descending (LAD) artery for coronary artery disease; Dyslipidemia, goal LDL below 70; Prostate cancer ([facility]); Rheumatoid arthritis involving multiple sites with positive rheumatoid factor ([facility]) Allergies Active Allergy Reactions Criticality Noted Date Comments Brent Inhibitors Cough Low 11/26/2017 Alendronate Sodium Muscle pain 04/11/2019 Heartburn, constipation, joint pain Misoprostol Diarrhea 08/08/2003 Niacin Er (Antihyperlipidemic) 11/26/2010 Gas, hot flashes Pollen 01/01/2018 Watery eyes, sneezing Pravastatin 02/26/2007 Upset stomach, all .Statins Simvastatin 02/26/2007 Upset stomach documented as of this encounter (statuses as of 10/18/2024) Medications ASPIR-81 81 MG PO TBEC 1 [...] Hour (toPROL XL)Indications:NS VT (nonsustained ventricular tachycardia) ([facility]),Non-ischemi c cardiomyopathy (HCC),Chronic HFrEF (heart failure with reduced ejection fraction) ([facility]) Take 1 Tablet by mouth in the morning and 1 Tablet before bedtime. 180 Tablet 1 05/31/20 24 Active Sodium Chloride Flush 0.9 % Intravenous SolutionIndicatio ns:Osteomyelitis of symphysis pubis ([facility]) Administer 10 mL intravenously 4 times [...] Oral Tablet (Lasix)Indication s:FREDY (acute kidney injury) ([facility]),Hyponatremi a Take 1 Tablet by mouth in the morning and 1 Tablet before bedtime. 60 Tablet 5 10/05/19 25 Active Clopidogrel Bisulfate 75 MG Oral Tablet (pLAVix) TAKE 1 TABLET BY MOUTH EVERY DAY IN THE MORNING 90 Tablet 3 06/16/20 24 025 Discontin ued(Patie nt preferenc e/discont inuation) documented as of this encounter (statuses as of 10/18/2024) Active Problems Problem Noted Date Diagnosed Date [...] glucose 12/16/2005 Macular degeneration 12/02/1999 DISC DIS [id number] documented as of this encounter (statuses as of 10/18/2024) Resolved Problems Problem Noted Date Diagnosed Date [...] colonoscopy in 5 years ARTHRITIS,RHEUMATOID 07/07/2006 016 [id number] 07/07/200611/01 Overview (11/16/2009): Renamed Per Clinical Trials Billing Project. Pt is a participant in the [employer] ([employer] [place]) national data collection study. For further information please call Dr Hari Clark or Julia White, RN, CCRC at [phone] [employer] RESEARCH OTHER*[id number] 07/07/2006 01/28/2010 Overview (11/16/2009): Renamed Per Clinical Trials Billing Project. Pt is a participant in the [employer] ([employer] [place]) national data collection study. For further information please call Dr Hari Clark or Julia White RN, CCRC at [phone] ADVANCE DIRECTIVE INFORMATION 05/19/2006 06/06/2024 Overview (05/19/2006): Yes-advised to bring copy in to be scanned into EMR. Hearing loss 12/02/1999 03/29/2013 documented as of this encounter (statuses as of 10/18/2024) Immunizations Name Administration Dates Next Due COVID-19 [...] Sign Reading Time Taken Comments Blood Pressure 102/64 10/17/2024 10:10 AM EDT Pulse 118 10/17/2024 10:10 AM EDT Temperature - - Respiratory Rate 20 10/17/2024 10:10 AM EDT Oxygen Saturation - - Inhaled Oxygen Concentration - - Weight 113.4 kg (250 lb) 10/17/2024 10:10 AM EDT Height - - Body Mass Index 32.1 06/01/2024 11:15 PM EDT documented in this encounter Functional Status * Are you deaf or do you have serious difficulty hearing? Answer Date of Assessment Author No 06/01/2024 11:43 PM EDT Luicta Ledesma RN * Are you blind or [...] Lucita Harrell RN documented in this encounter Patient Instructions * Patient Instructions* Dmitri Greenfield DO - 10/17/2024 11:06 AM EDT Discontinue clopiogrel / Plavis. Continue aspirin 81 mg daily. documented in this encounter Progress Notes * Dmitri Greenfield DO - 10/17/2024 10:00 AM EDT 10/17/2024 Cardiology Follow Up SUBJECTIVE: History of Present Illness Markus Wharton is a 79 year old male with frequent premature ventricular contractions and non-ischemic cardiomyopathy who presents for routine cardiology follow-up. He is accompanied by his son, Kenneth , as per his usual routine. He has a history of frequent premature ventricular contractions and non-ischemic cardiomyopathy with left ventricular systolic dysfunction. He has mild coronary heart disease, which is considered to be out of proportion to his cardiac dysfunction. He previously underwent a heart stent placement in August 2023 and has been on medications including metoprolol and losartan. He was on amiodarone andEntresto in the past but experienced adverse effects, leading to discontinuation. He is currently on a low dose of losartan and metoprolol 50 mg daily, taken in divided doses. He has a history of prostate carcinoma and follows closely with urology. He underwent a cystoscopy and Ingram catheter exchange on September 21, 2024. 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 During that hospitalization, he received IV antibiotics until July 10, 2024, and had a PICC line placed in his right arm. He is scheduled for a follow up CT scan today to evaluate his prostate and bones. He has rheumatoid arthritis and is currently back on methotrexate after completing his antibiotic course. His arthritis symptoms were exacerbated during his hospitalization but are currently stable. 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 He recently experienced a mild flu with symptoms including a sore throat, fever, cough, and congestion, which he is recovering from. He used albuterol to manage respiratory symptoms and has not needed it for the past week. He feels weak and uses a walker for mobility, with plans to increase outdooractivity as the weather improves. History: On 09/01/2023 he presented to the emergency department at [facility] with complaint of acute onset severechest discomfort. [...] interval improvement in the ejection fraction to 45% prompting discontinuation of this Zoll LifeVest. LVEF however was back down to 35-39% at the time of echocardiogram performed at [facility] 06/03/2024 when he was hospitalized with sepsis. Extensive ROS: All systems reviewed & are [...] 1 Tablet before bedtime. 180 Tablet 1 Clopidogrel Bisulfate 75 MG Oral Tablet (pLAVix) [...] medications for this visit. OBJECTIVE/PHYSICAL EXAMINATION: BP 102/64 | Pulse 118 | Resp 20 | Wt 113.4 kg (250 lb) | BMI 32.10 kg/m² | BSA 2.43 m² General: no acute distress and stated age [...] normal exam Psych: appropriate affect and insight. : Ingram catheter in place draining clear yellow urine Data: Results LABS PSA: 0.02 ng/mL Kidney function panel: Within normal limits (10/12/2024) DIAGNOSTIC Cystoscopy: Ingram catheter exchange (09/21/2024) Summary of [place]techo [place] [facility] [place]: The qualitative LV ejection fraction is 35-39% (moderately reduced). There is a moderate sized apical, anteroseptal, and anterior wall motion abnormality with akinesis of the segments. There is a moderate sized apical and posterior wall motion abnormality with hypokinesis to akinesisof the segments. The right ventricular systolic function is qualitatively normal. Latest Reference Range & Units 10/12/24 09:54 SODIUM 135 - 146 mmol/L 130 (L) POTASSIUM 3.5 - 5.1 mmol/L 4.3 CHLORIDE 98 - 107 mmol/L 91 (L) CO2 22 - 32 mmol/L 28 BUN 6 - 20 mg/dL 18 CREATININE 0.6 - 1.2 mg/dL 1.0 EGFR >=60 mL/min 76 ANION GAP 7 - 15 mmol/L 11 GLUCOSE 70 - 120 mg/dL 126 (H) CALCIUM 8.4 - 10.2 mg/dL 9.6 Protein 6.0 - 8.3 g/dL 7.5 CBC Rpt ! WBC 4.00 - 10.80 K/uL 6.28 RBC 4.50 - 5.25 M/uL 3.73 HGB 14.0 - 16.8 g/dL 10.4 (L) HCT 40.0 - 48.4 % 32.8 (L) MCV 82.0 - 99.5 fL 87.9 MCH 27.0 - 34.0 pg 27.9 MCHC 32.0 - 36.0 g/dL 31.7 RDW 11.5 - 15.5 % 17.8 PLT 140 - 400 K/uL 336 MPV 6.6 - 11.1 fL 9.5 CBC WITH WBC DIFFERENTIAL Rpt ! Absolute Neutrophils 1.80 - 7.70 K/uL 5.25 Absolute Lymphocytes 1.00 - 4.80 K/ul 0.51 (L) Absolute Monocytes 0.00 - 1.10 K/uL 0.32 Absolute Eosinophils 0.00 - 0.70 K/uL 0.19 Absolute Basophils 0.00 - 0.20 K/uL 0.01 (L): Data is abnormally low (H): Data is abnormally high !: Data is abnormal Rpt: View report in Results Review for more information Assessment & Plan Congestive Heart Failure with Reduced Ejection Fraction Non-ischemic cardiomyopathy with left ventricular systolic dysfunction. Pump function not solely due to coronary artery blockages. Previous heart stent and reduced frequency of premature ventricular contractions improved pump function. Worsened pump function during sepsis episode. Entresto discontinued due to hypotension and fatigue. Current management includes metoprolol and losartan. During his hospitalization for sepsis, tachycardia was noted when he arrived to [facility]. It is difficult to discern if this was transient atrial fibrillation or sinus tachycardia with frequent ectopy. - Order echocardiogram to reassess left ventricular systolic function. - Discontinue clopidogrel - Continue aspirin 81 mg daily - Continue metoprolol at current dose - Monitor for atrial fibrillation with 7-day heart monitor - Continue losartan at current low dose Premature Ventricular Contractions Frequent premature ventricular contractions with previous treatment improving heart function. Continued monitoring necessary. Previous use of amiodarone and higher dose of metoprolol not well tolerated. - Monitor heart rhythm with 7-day heart monitor Coronary Artery Disease Mild coronary artery disease with previous heart stent placed on September 01, 2023. No recent angina. Clopidogrel therapy has reached one-year marisol post-stent placement. 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 Previous hospitalizationfor sepsis in May 2024. Completed six weeks of IV antibiotics. Current follow-up with CT scan to assess resolution. Previous catheter issues resolved with exchange. - proceed with repeat CT scan follow-up as recommended and scheduled by Urology. Prostate Cancer Prostate carcinoma with ongoing urology follow-up. Recent PSA level at 0.02. Scheduled for CT scan and catheter exchange. Recent cystoscopy showed good results. - Perform CT scan to evaluate prostate and bone - has upcoming urinary catheter exchange already scheduled with Rheumatology Rheumatoid Arthritis Rheumatoid arthritis, previously off methotrexate during antibiotic treatment. Currently on methotrexate with well-managed joint condition. Upcoming rheumatology appointment scheduled. - Continue methotrexate - Attend upcoming rheumatology appointment Follow up : Follow Up: Return in about 6 months (around 04/19/2025) for Clinic Visit. | For: Clinic Visit | Check-out note: After CT scan today, return to office for placement of 7 day Zio Patch. Patient seen in longitudinal follow up of the above issues with assessment and plan as documented. Dmitri Greenfield DO Cardiology, [address] [address] Text in this note was generated using an NoFlo service. I discussed the use of a device to record and summarize our discussion today. All persons present during the encounter consented to its use. documented in this encounter Nursing Notes * Amanda Joya LPN - 10/17/2024 10:09 AM EDT Patient was identified by name and date of . Name: Markus Wharton Date of : (1945). Examination Room: 10 Reason for Visit: Chief Complaint Patient presents with Follow Up Interim Hospitalization(s): YES [place] for sepsis Interim Emergency room visit(s): NO Chest Pain: No SOB: No Problems/Concerns: Yes Medications reviewed and are up to date via: Patient's memory Would you like to sign up for [facility]? ALREADY ACTIVE Patient was instructed to not get up on the exam table/exam chair until directed and assisted by their provider; patient is to remain seated in the chair/ wheelchair/ exam table/ exam chair for fall prevention and safety reasons. Patient is aware to have assistance to step down off exam table/exam chair with personnel. Patient voiced full comprehension of instructions. Amanda Joya LPN 10:09 AM 10/17/2024 documented in this encounter Plan of Treatment Upcoming Encounters Date Type Department Care Team (Late st Contact Info) Description 10/25/2024 9:45 AM EDT Procedure Only Urology, [address] [place] [address] Vinay Sexton MD [address] [place] [address] 10/31/2024 12:00 PM EDT Telemedicine Hematology/Oncology [facility] [address] [facility] [place] [id number] Korin Fisher CRNP [address] [place] [address] 11/07/2024 10:40 AM EDT Office Visit Nephrology, [facility] [address] [facility] [place] [address] Abhinav Dawson MD [address] [place] [address] 11/23/2024 9:00 AM EDT Cardiac Studies Cardiac Studies, [address] [place] [address] 03/21/2025 11:45 AM EDT Telemedicine Urology, [address] [place] [address] Vinay Sexton MD [address] [place] [address] Scheduled Orders Name Type Priority Associated Diagnoses Orde r Schedule ECHO, COMPLETE (2D), TRANS-THORACIC Echocardiology Routine Chronic HFrEF (heart failure with reduced ejection fraction) (HCC) NSVT (nonsustained ventricular tachycardia) (HCC) Expected: 10/17/2024 (Approximate), Expires: 11/17/2026 EXTERNAL EKG 2 TO 7 DAYS Holter Routine Chronic HFrEF (heart failure with reduced ejection fraction) (HCC) NSVT (nonsustained ventricular tachycardia) (HCC) Expected: 10/18/2024 (Approximate), Expires: 10/17/2025 Scheduled Procedures Name Priority Associated Diagnoses Date/Ti [...] 01/02, 05/10/2013, Additional history exists COVID-19 Vaccine () 04/03/2024 05/23/2022, 12/25/2021, 12/25/2021, Additional history exists GFR 04/14/2025 10/12/2024, 120 04/2024, 07/04/2024, Additional history exists HbA1c 06/02/2025 06/02/2024, 040 12/2023, 06/22/2023, Additional history exists CKD PHOS USE SMARTSET 32891 06/06/20250 11/2023, 06/05/2024, 06/04/2024, Additional history exists CKD HGB USE SMARTSET 96662 10/12/202510/12, 10/12/2024, 07/11/2024, Additional history exists DTap/Tdap [...] D LEVEL ONCE IN A LIFETIME-USE SMARTSET# [id number] Completed 03/21/2024, 12/25/2023, 05/27/2021, Additional history exists [...] as of this encounter Visit Diagnoses Diagnosis Chronic HFrEF (heart failure with reduced ejection fraction) (HCC)- Primary Non-ischemic cardiomyopathy (HCC) Other primary cardiomyopathies NSVT (nonsustained ventricular tachycardia) (HCC) Paroxysmal ventricular tachycardia Status post insertion of drug-eluting stent into left anterior descending (LAD) artery for coronary artery disease Dyslipidemia, goal LDL below 70 Other and unspecified hyperlipidemia Prostate cancer (HCC) Malignant neoplasm of prostate Rheumatoid arthritis involving multiple sites with positive rheumatoid factor (HCC) documented in this encounter Advance Directives * Full Code (Latest Code Status on File) Date Activated Date Inactivated Comments 06/01/2024 11:10 PM 06/10/2024 6:36 PM This order reflects the patients wishes and were consensually agreed upon. Question Answer Comments Discussion of Advance Direct teo occurred with: Not Discussed due to patient's condition Care Teams Plate Molder Relationship Specialty Start Date End Date Rhianna Huitron DO [address] [place] [address] PCP - General Family Medicine 09/15/24 documented as of this encounter"
--- OUTSIDE RECORDS SUMMARY | 2024-11-18 02:17 | External Medical Summary | Summary of Care ---
Author Name Unknown Organization [facility] Address [address] [place] [address] Phone [phone] Care Team Providers Care Gauge And Instrument Inspector Name Role Phone Rhianna Huitron DO Primary Care Provider [phone] Reason for Visit * Reason Comments Rheum Follow Up Encounter Details Date Type Department Care Team (Late st Contact Info) Description 07/18/2024 1:20 PM EST Telemedicine Rheumatology [facility] [address] [facility] [place] [address] Mendel Wilson MD [address] [facility] [place] [address] Rheumatoid arthritis involving multiple sites with positive [...] as of this encounter (statuses as of 07/18/2024) Medications ASPIR-81 81 MG PO TBEC 1 TABLET DAILY 0 Active Acetaminophen 325 MG Oral Tablet (Tylenol) 2 Tablets. 024 Active Folic Acid 1 MG Oral TabletIndications :Arthritis, rheumatoid ([facility]) TAKE 1 TABLET BY MOUTH EVERY DAY [...] every 6 hours as needed for Wheezing. Active Melatonin 3 MG Oral Tablet Take 2 Tablets by mouth at bedtime. Active Metoprolol Succinate ER 25 MG Oral Tablet Extended Release 24 Hour (toPROL XL)Indications:NS VT (nonsustained ventricular tachycardia) ([facility]),Non-ischemi c cardiomyopathy ([facility]),Chronic HFrEF (heart failure with reduced ejection fraction) ([facility]) Take 1 Tablet by mouth in the morning and 1 Tablet before bedtime. 180 Tablet 1 Active Furosemide 20 MG Oral Tablet (Lasix)Indication s:FREDY (acute kidney injury) ([facility]),Hyponatremi a Take 1 Tablet by mouth in the morning and 1 Tablet before bedtime. 60 Tablet 5 024 Active Clopidogrel Bisulfate 75 MG Oral Tablet (pLAVix) TAKE 1 TABLET BY MOUTH EVERY DAY IN THE MORNING 90 Tablet 3 024 Active Sodium Chloride Flush 0.9 % Intravenous SolutionIndicatio ns:Osteomyelitis of symphysis pubis ([facility]) Administer 10 mL intravenously 4 times a day as needed for Other. Flush PICC before and after IV administration. Single use syringe: discard after use. 900 mL 024 2024 Active Methotrexate 2.5 MG Oral Tablet Take 5 Tablets by mouth once a week. 65 Tablet 1 Active Magnesium Oxide -Mg Supplement 400 (240 Mg) MG Oral Tablet (Mag-Ox) Take 1 Tablet by mouth in the morning and 1 Tablet before bedtime. 180 Tablet 3 024 2023 Discontinued(P atient preference/dis continuation) Urea 15 GM Oral Packet (Ure-Na)Indicatio ns:FREDY [...] 65 mL infusionIndicatio ns:Osteomyelitis of symphysis pubis (HCC) Administer 3 g over 30 minutes intravenously every 6 hours. 24 g 07/12/20 24 5:36 PM EST 024 2023 Discontinued Vancomycin (Vancocin) 1,250 mg in NSS 250 mL infusionIndicatio ns:Osteomyelitis of symphysis pubis (HCC) Administer 1,250 mg over 90 minutes intravenously every 24 hours. 1250 mg 07/12/20 24 5:36 PM EST 024 2023 Discontinued Methotrexate 2.5 MG Oral Tablet Take 6 Tablets by mouth once a week. 2023 Discontinued(R efill) documented as of this encounter (statuses as of 07/18/2024) Active Problems Problem Noted Date Diagnosed Date [...] glucose 12/16/2005 Macular degeneration 12/02/1999 DISC DIS [id number] documented as of this encounter (statuses as of 07/18/2024) Resolved Problems Problem Noted Date Diagnosed Date [...] colonoscopy in 5 years ARTHRITIS,RHEUMATOID 07/07/2006 016 [id number] 07/07/200611/01 Overview (11/16/2009): Renamed Per Clinical Trials Billing Project. Pt is a participant in the [facility] (Consortium of Rheumatology Researchers of [facility]) national data collection study. For further information please call Dr Hari Clark or Julia White, RN, CCRC at [phone] [facility] RESEARCH OTHER*[id number] 07/07/2006 01/28/2010 Overview (11/16/2009): Renamed Per Clinical Trials Billing Project. Pt is a participant in the [facility] (Consortium of Rheumatology Researchers of [facility]) national data collection study. For further information please call Dr Hari Clark or Julia White, RN, CCRC at [phone] ADVANCE DIRECTIVE INFORMATION 05/19/2006 06/06/2024 Overview (05/19/2006): Yes-advised to bring copy in to be scanned into EMR. Hearing loss 12/02/1999 03/29/2013 documented as of this encounter (statuses as of 07/18/2024) Immunizations Name Administration Dates Next Due COVID-19 mRNA, LNP-s, No Pre serve, 2-Dose Series ([employer]) 06/14/2021,10/10/2020,09/12/2020 COVID-19, LNP-s, No Preserve , Yousuf-sucrose, [...] documented in this encounter Progress Notes * Mendel Wilson MD - 07/18/2024 1:12 PM EST Images from the original note were not included. Patient location: HOME. I was in a hospital or clinic location. After connecting through [employer],patient was verified with two unique identifiers. Patient (or authorized legal teleservices representative) was then informed that this was a Telemedicine visit and being conducted confidentially over secure lines. Methods to assure confidentiality were taken. Patient acknowledged consent and understanding of pr ivacy and security of the Telemedicine visit. The patient agreed to participate. Assessment and Plan Rheumatoid arthritis involving multiple sites with positive rheumatoid factor (HCC) Encounter for long-term (current) use of medications He is having some increasing arthritis complaints since he was off methotrexate for 6 weeks and just restarted this past Thursday. Will discuss with his urologist as well but ID felt like he go back on. Will continue with methotrexate at current dose and update labs next month and then every 3 months. Return to clinic in 4 months. Rheumatology Synopsis: RPICC RA SYNOPSIS Date of RA Diagnosis: 08/03/05 (09/10/2023 9:00 AM) Current Treatment: MTX (09/10/2023 9:00 AM) 2009 Classification Criteria: Y (09/10/2023 9:00 AM) Seropositive or seronegative: Seropositive (09/10/2023 9:00 AM) RF and/or CCP: RF+ (09/10/2023 9:00 AM) Disease activity: Stable Patient History History of Present Illness HPI:79 year old male presented to rheumatology clinic for Rheum Follow Up He was admitted for septic shock related to his catheter not being placed correctly. He was life flighted to [facility] and treated with IV abx and discharged home on 6 weeks of IV abx. Had to miss MTX during that time and noted more joint pains, stiffness with missing MtX. Pain was mostly shoulders, to his hands. He was able to take MTX on Thursday. Taking 12.5mg weekly and feels better than he hasbefore. He is still using a wheel chair and walker. Given this set up appt via video instead of in person. ROS: Review of Systems was asked and the following other significant symptoms are present: joint pain, swelling, weakness Rheumatology History RA Subjective Patient's past history, medications, and allergies were reviewed. Objective Physical Exam Constitutional: no acute distress HEENT: NC/AT, normal ears Eyes: sclera and conjunctiva normal MSK: no tenderness reported to the small joints of the hands, no synovitis MSK/Joint exam (Homunculus) MSK Exam findings: Homunculus exam Studies: Labs and Imaging studies reviewed with pertinent findings noted below: Disease Treatment Response CDAI Scoring Patient Global: 50 / 100 Provider Global: 20 / 100 Tender (KENT-28): 0 / 28 Swollen (KENT-28): 0 / 28 CDAI: 7 CDAI (Clinical Disease Activity Index) © [facility] Outcomes measures: Serial CDAI: Synopsis SmartLink 07/18/2024 13:20 05/19/2024 10:20 09/10/2023 09:40 CDAI CDAI 7 7 6 - Serial CDAI: - Yes - Remission: - No - low disease activity Currently on csDMARD: Yes Currently on Biologic DMARD: No Vaccination status: COVID: Vaccine and/or Health maintenance status Incomplete Influenza:Vaccine complete for this season Pneumococcal:Vaccine Series complete Zoster:Vaccine [...] "QUANTIFERON-TB PLUS", "QUANTIFERON-TB PLUS,1T", "QUANTIFERON-TB PLUS,4T" Wrap-Up documented in this encounter Plan of Treatment Upcoming Encounters Date Type Department Care Team (Late st Contact Info) Description 09/08/2024 3:40 PM EST Office Visit Nephrology, [address] [address] Bryson Ellis MD [address] [place] [address] 10/17/2024 10:30 AM EDT Office Visit Cardiology, [facility] [address] [place] [address] Dmitri Greenfield DO [address] [facility] [place] [address] 10/18/2024 10:00 AM EDT Laboratory Laboratory [facility] [place] [phone] Adia Hobbs [facility] [address] [place] [address] 10/25/2024 4:00 PM EDT Office Visit Hematology/Oncology Jayashree Hobbs [place] [address] [place] [address] Korin Fisher CRNP [address] [place] [address] 03/21/2025 11:45 AM EDT Telemedicine Urology, [facility] [address] [place] [address] Vinay Sexton MD [address] [place] [address] Scheduled Orders Name Type Priority Associated Diagnoses Orde r Schedule CBC WITH WBC DIFFERENTIAL Lab Routine Rheumatoid arthritis involving multiple sites with positive rheumatoid factor (HCC) Encounter for long-term (current) use of medications Every 3 Months for 4 Occurrences starting 07/18/2024 until 07/27/2025 COMPREHENSIVE METABOLIC PANEL Lab Routine Rheumatoid arthritis involving multiple sites with positive rheumatoid factor (HCC) Encounter for long-term (current) use of medications Every 3 Months for 4 Occurrences starting 07/18/2024 until 07/27/2025 Scheduled Procedures Name Priority Associated Diagnoses Date/Ti [...] 06/27/2024, Additional history exists HbA1c 06/02/2025 06/02/2024, 0 12/2023, 06/22/2023, Additional history exists CKD PHOS USE SMARTSET 16797 06/06/202511/2023, 06/05/2024, 06/04/2024, Additional history exists CKD HGB USE SMARTSET 03138 07/11/202507/11, 07/11/2024, 07/04/2024, Additional history exists DTap/Tdap [...] D LEVEL ONCE IN A LIFETIME-USE SMARTSET# 80503 Completed 03/21/2024, 12/25/2023, 05/27/2021, Additional history exists [...] of other medications documented in this encounter Advance Directives * Full Code (Latest Code Status on File) Date Activated Date Inactivated Comments 06/01/2024 11:10 PM 06/10/2024 6:36 PM This order reflects the patients wishes and were consensually agreed upon. Question Answer Comments Discussion of Advance Direct teo occurred with: Not Discussed due to patient's condition Care Teams Gauge And Instrument Inspector Relationship Specialty Start Date End Date Rhianna Huitron DO [address] [place] [address] PCP - General Family Medicine 07/11/19 documented as of this encounter
--- OUTSIDE RECORDS SUMMARY | 2024-11-18 02:17 | External Medical Summary | Summary of Care ---
Author Name Unknown Organization [facility] Address [address] [place] [address] Phone [phone] Care Team Providers Care Forest Fire Fighter Name Role Phone Rhianna Huitron DO Primary Care Provider [phone] Reason for Visit * Reason Comments Outpatient Testing Encounter Details Date Type Department Care Team (Late st Contact Info) Description 07/11/2024 9:00 AM EST Laboratory Laboratory, [facility] [address] [place] [address] St, Specimen Drop Off [facility] [address] [place] [address] Urinary tract infection; Atrophy of prostate; Peritoneal abscess (HCC) Allergies Active Allergy Reactions Criticality Noted Date Comments Brent Inhibitors Cough Low 11/26/2017 Alendronate Sodium Muscle pain 04/11/2019 Heartburn, constipation, joint pain Misoprostol Diarrhea 08/08/2003 Niacin Er (Antihyperlipidemic) 11/26/2010 Gas, hot flashes Pollen 01/01/2018 Watery eyes, sneezing Pravastatin 02/26/2007 Upset stomach, all .Statins Simvastatin 02/26/2007 Upset stomach documented as of this encounter (statuses as of 07/11/2024) Medications ASPIR-81 81 MG PO TBEC 1 TABLET DAILY 0 06/19/20 06 Active Acetaminophen 325 MG Oral Tablet (Tylenol) 2 Tablets. 09/03/19 24 Active Magnesium Oxide -Mg Supplement 400 (240 Mg) MG Oral Tablet (Mag-Ox) Take 1 Tablet by mouth in the morning and 1 Tablet before bedtime. 180 Tablet 3 09/18/19 24 Active Additional Information Patient not taking.Reported on 06/02/2024 Folic Acid 1 MG Oral TabletIndications: Arthritis, [...] Hour (toPROL XL)Indications:NSV T (nonsustained ventricular tachycardia) ([facility]),Non-ischemic cardiomyopathy (HCC),Chronic HFrEF (heart failure with reduced ejection fraction) ([facility]) Take 1 Tablet by mouth in the morning and 1 Tablet before bedtime. 180 Tablet 1 05/31/20 24 Active Furosemide 20 MG Oral Tablet (Lasix)Indications :FREDY (acute kidney injury) ([facility]),Hyponatremia Take 1 Tablet by mouth in the morning and 1 Tablet before bedtime. 60 Tablet 5 05/31/20 24 Active Urea 15 GM Oral Packet (Ure-Na)Indication s:FREDY (acute kidney injury) (HCC),Hyponatremia Take 15 g by mouth in the morning and 15 g before bedtime. 60 Packet 5 05/31/20 24 Active Clopidogrel Bisulfate 75 [...] use. 900 mL 07/08/20 24 025 Active Heparin Na (Pork) Lock Flsh PF 10 UNIT/ML Intravenous SolutionIndication s:Osteomyelitis of symphysis pubis (HCC) Inject 5 mL intravenously 2 times a day as needed for Other. Flush PICC after IV administration, following saline flush. Flush unused lumen twice daily. Single use syringe: discard after use. 400 mL 07/08/20 24 025 Active Ampicillin-Sulbact am (Unasyn) 3 g in NSS 65 mL infusionIndication s:Osteomyelitis of symphysis pubis (HCC) Administer 3 g over 30 minutes intravenously every 6 hours. 24 g 07/08/20 24 025 Active Vancomycin (Vancocin) 1,250 mg in NSS 250 mL infusionIndication s:Osteomyelitis of symphysis pubis (HCC) Administer 1,250 mg over 90 minutes intravenously every 24 hours. 1250 mg 07/08/20 24 025 Active documented as of this encounter (statuses as of 07/11/2024) Active Problems Problem Noted Date Diagnosed Date [...] glucose 12/16/2005 Macular degeneration 12/02/1999 DISC DIS [id number] documented as of this encounter (statuses as of 07/11/2024) Resolved Problems Problem Noted Date Diagnosed Date [...] colonoscopy in 5 years ARTHRITIS,RHEUMATOID 07/07/2006 016 [id number] 07/07/200611/01 Overview (11/16/2009): Renamed Per Clinical Trials Billing Project. Pt is a participant in the [employer] (Consortium of Rheumatology Researchers of [place]) national data collection study. For further information please call Dr Hari Clark or Julia White, RN, CCRC at [phone] [employer] RESEARCH OTHER*[id number] 07/07/2006 01/28/2010 Overview (11/16/2009): Renamed Per Clinical Trials Billing Project. Pt is a participant in the [employer] (Consortium of Rheumatology Researchers of [place]) national data collection study. For further information please call Dr Hari Clark or Julia White RN, CCRC at [phone] ADVANCE DIRECTIVE INFORMATION 05/19/2006 06/06/2024 Overview (05/19/2006): Yes-advised to bring copy in to be scanned into EMR. Hearing loss 12/02/1999 03/29/2013 documented as of this encounter (statuses as of 07/11/2024) Immunizations Name Administration Dates Next Due COVID-19 [...] 0.5 mL (Fluzone) 04/10/2014,05/16/2013,04/14/2012,04/24,05/20/2010,04/05/2009,05/11/2008 ,06/07/2007,07/07/2006,05/18/2003,05/03 Seasonal Influenza, High Dos e, Trivalent, PF, [...] Lucita Harrell RN documented in this encounter Plan of Treatment Upcoming Encounters Date Type Department Care Team (Late st Contact Info) Description 07/11/2024 3:00 PM EST Procedure Only Urology, [facility] [address] [facility] [place] [address] Vinay Sexton MD [address] [place] [address] 07/12/2024 9:00 AM EST Pharmacy [facility], [place] [address] [place] [address] [facility], [place] Pharmacist [address] [place] [address] 07/18/2024 1:20 PM EST Telemedicine Rheumatology [place] [address] [place] [address] Mendel Wilson MD [address] [place] [address] [place] [address] 07/21/2024 2:30 PM EST Office Visit Cardiology, [facility] [address] [facility] [place] [address] Chiara Meyer CRNP [address] [facility] [place] [address] 09/08/2024 3:40 PM EST Office Visit Nephrology, [facility] [address] [place] [address] Bryson Ellis MD [address] [place] [address] 10/17/2024 10:30 AM EDT Office Visit Cardiology, [facility] [address] [facility] [place] [address] Dmitri Greenfield DO [address] [facility] [place] [address] 10/18/2024 10:00 AM EDT Laboratory Laboratory [facility] [address] [place] [address] [place], Lab [facility] [address] [place] [address] 10/25/2024 4:00 PM EDT Office Visit Hematology/Oncology [facility] [address] [place] [phone] Korin Fisher CRNP [address] [place] [address] 03/21/2025 11:45 AM EDT Telemedicine Urology, [facility] [address] [facility] [place] [address] Vinay Sexton MD [address] [place] [address] Pending Results Name Type Priority Associated Diagnoses Date /Time COMPREHENSIVE METABOLIC PANEL Lab Routine Urinary tract infection Atrophy of prostate Peritoneal abscess (HCC) 07/11/2024 8:28 AM EST CBC WITH WBC DIFFERENTIAL Lab Routine Urinary tract infection Atrophy of prostate Peritoneal abscess (HCC) 07/11/2024 8:28 AM EST VANCOMYCIN TROUGH Lab Routine Urinary tract infection Atrophy of prostate Peritoneal abscess (HCC) 07/11/2024 8:28 AM EST CRP (INFLAMMATORY MARKER) Lab Routine Urinary tract infection Atrophy of prostate Peritoneal abscess (HCC) 07/11/2024 8:28 AM EST CBC Lab Routine Urinary tract infection Atrophy of prostate Peritoneal abscess (HCC) 07/11/2024 8:28 AM EST DIFFERENTIAL, AUTOMATED Lab Routine Urinary tract infection Atrophy of prostate Peritoneal abscess (HCC) 07/11/2024 8:28 AM EST Scheduled Procedures Name Priority Associated [...] 05/23/2022, 12/25/2021, 12/25/2021, Additional history exists GFR 01/02/2025 07/04/2024, 06/04, 06/20/2024, Additional history exists HbA1c 06/02/2025 06/02/2024, 0 12/2023, 06/22/2023, Additional history exists CKD PHOS USE SMARTSET 54674 06/06/20250 11/2023, 06/05/2024, 06/04/2024, Additional history exists CKD HGB USE SMARTSET 12944 07/04/202507/04, 07/04/2024, 06/27/2024, Additional history exists DTap/Tdap Vaccines (3 - [...] D LEVEL ONCE IN A LIFETIME-USE SMARTSET# 62493 Completed 03/21/2024, 12/25/2023, 05/27/2021, Additional history exists [...] of this encounter Visit Diagnoses Diagnosis Urinary tract infection Urinary tract infection, site not specified Atrophy of prostate Peritoneal abscess (HCC) Peritoneal abscess documented in this encounter Advance Directives * Full Code (Latest Code Status on File) Date Activated Date Inactivated Comments 06/01/2024 11:10 PM 06/10/2024 6:36 PM This order reflects the patients wishes and were consensually agreed upon. Question Answer Comments Discussion of Advance Direct teo occurred with: Not Discussed due to patient's condition Care Teams Forest Fire Fighter Relationship Specialty Start Date End Date Rhianna Huitron DO [address] [place] [address] PCP - General Family Medicine 07/11/19 documented as of this encounter
--- OUTSIDE RECORDS SUMMARY | 2024-11-18 02:17 | External Medical Summary ---
Author Name Unknown Address Unknown Organization K01:[facility] - [facility] [address] [place] [address] Laboratory Report Ordering Provider Test Date Status DESIREE STEPHENS 07/11/2024 08:28:00 Final Observation Date Value Abnormality Reference (Units ) Status WBC, Total 07/11/2024 08:28:00 7.36 4.00-10.80 (K/uL) Final RBC 07/11/2024 08:28:00 3.48 4.50-5.25 (M/uL) Final Hemoglobin 07/11/2024 08:28:00 9.2 Below low normal 14.0-16.8 (g/dL) Final HCT 07/11/2024 08:28:00 30.2 Below low normal 40.0-48.4 (%) Final MCV 07/11/2024 08:28:00 86.8 82.0-99.5 (fL) Final MCH 07/11/2024 08:28:00 26.4 27.0-34.0 (pg) Final MCHC 07/11/2024 08:28:00 30.5 32.0-36.0 (g/dL) Final RDW 07/11/2024 08:28:00 17.6 11.5-15.5 (%) Final Platelets 07/11/2024 08:28:00 277 140-400 (K/uL) Final MPV 07/11/2024 08:28:00 10.0 6.6-11.1 (fL) Final Nucleated erythrocytes/100 leukocytes [Ratio] in Blood by Automated count 07/11/2024 08:28:00 0 <=0 (/100 WBCs) Final Performing Location [facility] - [address] [place] [address]
--- OUTSIDE RECORDS SUMMARY | 2024-11-18 02:17 | External Medical Summary | Summary of Care ---
Author Name Unknown Organization [facility] Address [address] [place] [address] Phone [phone] Care Team Providers Care Staff Engineer Name Role Phone Rhianna Huitron DO Primary Care Provider [phone] Reason for Visit * Reason Comments Outpatient Testing Encounter Details Date Type Department Care Team (Late st Contact Info) Description 07/11/2024 9:00 AM EST Laboratory Laboratory, [facility] [address] [place] [address] [address], Specimen Drop Off [facility] [address] [place] [address] Urinary tract infection; Atrophy of prostate; Peritoneal [...] Hour (toPROL XL)Indications:NSV T (nonsustained ventricular tachycardia) ([facility]),Non-ischemic cardiomyopathy (HCC),Chronic HFrEF (heart failure with reduced ejection fraction) ([facility]) Take 1 Tablet by mouth in the morning and 1 Tablet before bedtime. 180 Tablet 1 05/31/20 24 Active Furosemide 20 MG Oral Tablet (Lasix)Indications :FREDY (acute kidney injury) ([facility]),Hyponatremia Take 1 Tablet by mouth [...] glucose 12/16/2005 Macular degeneration 12/02/1999 DISC DIS [id number] documented as of this encounter (statuses as [...] colonoscopy in 5 years ARTHRITIS,RHEUMATOID 07/07/2006 016 [id number] 07/07/200611/01 Overview (11/16/2009): Renamed Per Clinical Trials Billing Project. Pt is a participant in the [employer] (Consortium of [employer] [place]) national data collection study. For further information please call Dr Hari Clark or Julia White, RN, CCRC at [phone] [employer] RESEARCH OTHER*[id number] 07/07/2006 01/28/2010 Overview (11/16/2009): Renamed Per Clinical Trials Billing Project. Pt is a participant in the [employer] (Consortium of [employer] [place]) national data collection study. For further information please call Dr Hari Clark or Julia White RN, CCRC at [phone] ADVANCE DIRECTIVE INFORMATION 05/19/2006 06/06/2024 Overview (05/19/2006): [...] 07/11/2024 3:00 PM EST Procedure Only Urology, [facility] 132 [facility] [place] [address] Vinay Sexton MD [address] [place] [address] 07/12/2024 9:00 AM EST Pharmacy Home Infusion, [place] [address] [place] [address] [facility], [place] Pharmacist Antig [address] [place] [address] 07/18/2024 1:20 PM EST Telemedicine Rheumatology [place] [address] [place] [place] [address] Mendel Wilson MD [address] [place] [address] [place] [address] 07/21/2024 2:30 PM EST Office Visit Cardiology, [facility] 132 [facility] [place] [address] Chiara Meyer CRNP [address] [facility] [place] [address] 09/08/2024 3:40 PM EST Office Visit Nephrology, [facility] [address] [place] [address] Bryson Ellis MD [address] [place] [address] 10/17/2024 10:30 AM EDT Office Visit Cardiology, [facility] [address] [facility] [place] [address] Dmitri Greenfield DO 132 [facility] [place] [address] 10/18/2024 10:00 AM EDT Laboratory Laboratory [facility] [address] [place] [phone] [place], Lab [facility] [address] [place] [address] 10/25/2024 4:00 PM EDT Office Visit Hematology/Oncology [facility] [address] [place] [address] Korin Fisher CRNP [address] [place] [address] 03/21/2025 11:45 AM EDT Telemedicine Urology, [facility] [address] [facility] [place] [address] Vinay Sexton MD 27 [place] [address] Pending Results Name Type Priority Associated Diagnoses Date /Time COMPREHENSIVE METABOLIC PANEL Lab Routine Urinary tract infection Atrophy of prostate Peritoneal abscess (HCC) 07/11/2024 9:41 AM EST CBC WITH WBC DIFFERENTIAL Lab Routine Urinary tract infection Atrophy of prostate Peritoneal abscess (HCC) 07/11/2024 9:41 AM EST VANCOMYCIN TROUGH Lab Routine Urinary tract infection Atrophy of prostate Peritoneal abscess (HCC) 07/11/2024 9:41 AM EST CRP (INFLAMMATORY MARKER) Lab Routine Urinary tract infection Atrophy of prostate Peritoneal abscess (HCC) 07/11/2024 9:41 AM EST CBC Lab Routine Urinary tract infection Atrophy of prostate Peritoneal abscess (HCC) 07/11/2024 9:41 AM EST DIFFERENTIAL, AUTOMATED Lab Routine Urinary tract infection Atrophy of prostate Peritoneal abscess (HCC) 07/11/2024 9:41 AM EST Scheduled Procedures Name Priority Associated [...] Additional history exists CKD PHOS USE SMARTSET 38737 06/06/20250 11/2023, 06/05/2024, 06/04/2024, Additional history exists CKD HGB USE SMARTSET 69538 07/04/202507/04, 07/04/2024, 06/27/2024, Additional history exists DTap/Tdap [...] D LEVEL ONCE IN A LIFETIME-USE SMARTSET# 99544 Completed 03/21/2024, 12/25/2023, 05/27/2021, Additional history exists [...] Discussed due to patient's condition Care Teams Staff Engineer Relationship Specialty Start Date End Date Rhianna Huitron DO [address] [place] [address] PCP - General Family Medicine 07/11/19 documented as of this encounter
--- OUTSIDE RECORDS SUMMARY | 2024-11-18 02:17 | External Medical Summary | Summary of Care ---
Author Name Unknown Organization [facility] Address [address] [place] [address] Phone [phone] Care Team Providers Care Deputy Sheriff Civil Division Name Role Phone Rhianna Huitron DO Primary Care Provider Encounter Details Date Type Department Care Team (Late st Contact Info) Description 07/18/2024 Telephone Urology, [facility] [address] [facility] [place] [address] Vinay Sexton MD 27 [...] as of this encounter (statuses as of 07/19/2024) Medications ASPIR-81 81 MG PO TBEC 1 TABLET DAILY 0 06/19/20 06 Active Acetaminophen 325 MG Oral Tablet (Tylenol) 2 Tablets. 09/03/19 24 Active Folic Acid 1 MG Oral TabletIndications: Arthritis, rheumatoid ([facility]) TAKE 1 TABLET BY MOUTH EVERY DAY [...] (toPROL XL)Indications:NSV T (nonsustained ventricular tachycardia) ([facility]),Non-ischemic cardiomyopathy ([facility]),Chronic HFrEF (heart failure with reduced ejection fraction) ([facility]) Take 1 Tablet by mouth in the morning and 1 Tablet before bedtime. 180 Tablet 1 05/31/20 24 Active Furosemide 20 MG Oral Tablet (Lasix)Indications :FREDY (acute kidney injury) ([facility]),Hyponatremia Take 1 Tablet by mouth in the morning and 1 Tablet before bedtime. 60 Tablet 5 05/31/20 24 Active Clopidogrel Bisulfate 75 MG Oral Tablet (pLAVix) TAKE 1 TABLET BY MOUTH EVERY DAY IN THE MORNING 90 Tablet 3 06/16/20 24 Active Sodium Chloride Flush 0.9 % Intravenous SolutionIndication s:Osteomyelitis of symphysis pubis ([facility]) Administer 10 mL intravenously 4 times a day as needed for Other. Flush PICC before and after IV administration. Single use syringe: discard after use. 900 mL 07/08/20 24 025 Active Methotrexate 2.5 MG Oral Tablet Take 5 Tablets by mouth once a week. 65 Tablet 1 07/18/20 24 Active documented as of this encounter (statuses as of 07/19/2024) Active Problems Problem Noted Date Diagnosed Date [...] glucose 12/16/2005 Macular degeneration 12/02/1999 DISC DIS [id number] documented as of this encounter (statuses as of 07/19/2024) Resolved Problems Problem Noted Date Diagnosed Date [...] colonoscopy in 5 years ARTHRITIS,RHEUMATOID 07/07/2006 016 [id number] 07/07/200611/01 Overview (11/16/2009): Renamed Per Clinical Trials Billing Project. Pt is a participant in the [employer] (Consortium of Rheumatology Researchers [place] national data collection study. For further information please call Dr Hari Clark or Julia White, RN, CCRC at [phone] [facility] RESEARCH OTHER*[id number] 07/07/2006 01/28/2010 Overview (11/16/2009): Renamed Per Clinical Trials Billing Project. Pt is a participant in the [employer] (Consortium of Rheumatology Researchers [place] national data collection study. For further information please call Dr Hari Clark or Julia White, RN, CCRC at [phone] ADVANCE DIRECTIVE INFORMATION 05/19/2006 06/06/2024 Overview (05/19/2006): Yes-advised to bring copy in to be scanned into EMR. Hearing loss 12/02/1999 03/29/2013 documented as of this encounter (statuses as of 07/19/2024) Immunizations Name Administration Dates Next Due COVID-19 mRNA, LNP-s, No Pre serve, 2-Dose Series ([employer]) 06/14/2021,10/10/2020,09/12/2020 COVID-19, LNP-s, No Preserve , Yousuf-sucrose, [...] Yes 06/01/2024 11:43 PM EDLucita Nugent RN * Because of a physical, mental, [...] Telephone Encounter - Ml Avalos OSA - 07/19/2024 1:14 PM EST Patient is scheduled for August 15. Patient is aware. * Telephone Encounter - Vinay Sexton MD - 07/18/2024 4:07 PM EST Patient was supposed to have one-month follow-up appointment for cystoscopy and Ingram exchange after his visit one-week ago. It looks like his next scheduled visit with myself is in March of 2025. Please schedule patient for appointment in August 2024 one-month from his last visit. Thanks, HM documented in this encounter Plan of Treatment Upcoming Encounters Date Type Department Care Team (Late st Contact Info) Description 08/15/2024 1:00 PM EST Procedure Only Urology, [facility] 132 [facility] [place] [address] Vinay Sexton MD 27 [facility] [place] [address] 09/08/2024 3:40 PM EST Office Visit Nephrology, [address] [address] Bryson Ellis MD [address] [place] [address] 10/17/2024 10:30 AM EDT Office Visit Cardiology, [facility] 132 [facility] [place] [address] Dmitri Greenfield, 132 [facility] [place] [address] 10/18/2024 10:00 AM EDT Laboratory Laboratory [facility] [address] [place] [phone] [facility] [address] [place] [address] 10/25/2024 4:00 PM EDT Office Visit Hematology/Oncology [facility] [place] [address] [place] [phone] Korin Fisher CRNP [address] [place] [address] 03/21/2025 11:45 AM EDT Telemedicine Urology, [facility] 132 [facility] [place] [address] Vinay Sexton MD [address] [place] [...] Additional history exists CKD PHOS USE SMARTSET 23543 06/06/2025 110 11/2023, 06/05/2024, 06/04/2024, Additional history exists CKD HGB USE SMARTSET 77006 07/11/202507/11, 07/11/2024, 07/04/2024, Additional history exists DTap/Tdap [...] D LEVEL ONCE IN A LIFETIME-USE SMARTSET# 60439 Completed 03/21/2024, 12/25/2023, 05/27/2021, Additional history exists [...] Discussed due to patient's condition Care Teams Deputy Sheriff Civil Division Relationship Specialty Start Date End Date Rhianna Huitron DO [address] [facility] [place] [address] PCP - General Family Medicine 07/11/19 documented as of this encounter
--- OUTSIDE RECORDS SUMMARY | 2024-11-18 02:17 | External Medical Summary | Summary of Care ---
Author Name Unknown Organization [facility] Address [address] [place] [address] Phone [phone] Care Team Providers Care Supervisor Speech Name Role Phone Rhianna uHitron DO Primary Care Provider [phone] Reason for Visit * Reason Onset Date Comments Fax 07/15/2024 [facility] Encounter Details Date Type Department Care Team (Late st Contact Info) Description 07/15/2024 Telephone [facility], [address] [place] [address] Rhianna Huitron DO [address] [place] [address] Fax ([facility]) Allergies Active Allergy Reactions Criticality Noted Date Comments Brent Inhibitors Cough Low 11/26/2017 Alendronate Sodium Muscle pain 04/11/2019 Heartburn, constipation, joint pain Misoprostol Diarrhea 08/08/2003 Niacin Er (Antihyperlipidemic) 11/26/2010 Gas, hot flashes Pollen 01/01/2018 Watery eyes, sneezing Pravastatin 02/26/2007 Upset stomach, all .Statins Simvastatin 02/26/2007 Upset stomach documented as of this encounter (statuses as of 07/15/2024) Medications ASPIR-81 81 MG PO TBEC 1 [...] Hour (toPROL XL)Indications:NSV T (nonsustained ventricular tachycardia) ([facility]),Non-ischemic cardiomyopathy ([facility]),Chronic HFrEF (heart failure with reduced ejection fraction) ([facility]) Take 1 Tablet by mouth in the morning and 1 Tablet before bedtime. 180 Tablet 1 05/31/20 24 Active Furosemide 20 MG Oral Tablet (Lasix)Indications :FREDY (acute kidney injury) ([facility]),Hyponatremia Take 1 Tablet by mouth in the [...] minutes intravenously every 6 hours. 24 g 4 5:36 PM EST 07/08/20 24 025 Active Vancomycin (Vancocin) 1,250 mg in NSS 250 mL infusionIndication s:Osteomyelitis of symphysis pubis (HCC) Administer 1,250 mg over 90 minutes intravenously every 24 hours. 1250 mg 4 5:36 PM EST 07/08/20 24 025 Active documented as of this encounter (statuses as of 07/15/2024) Active Problems Problem Noted Date Diagnosed Date [...] glucose 12/16/2005 Macular degeneration 12/02/1999 DISC DIS [id number] documented as of this encounter (statuses as of 07/15/2024) Resolved Problems Problem Noted Date Diagnosed Date [...] colonoscopy in 5 years ARTHRITIS,RHEUMATOID 07/07/2006 016 [id number] 07/07/200611/01 Overview (11/16/2009): Renamed Per Clinical Trials Billing Project. Pt is a participant in the [employer] (Consortium of Rhe[employer]ology [place] national data collection study. For further information please call Dr Hari Clark or Julia White, RN, CCRC at [phone] [facility] RESEARCH OTHER*[id number] 07/07/2006 01/28/2010 Overview (11/16/2009): Renamed Per Clinical Trials Billing Project. Pt is a participant in the [employer] (Consortium of Rheumatology Researchers [place] national data collection study. For further information please call Dr Hari Clark or Julia White, RN, CCRC at [phone] ADVANCE DIRECTIVE INFORMATION 05/19/2006 06/06/2024 Overview (05/19/2006): Yes-advised to bring copy in to be scanned into EMR. Hearing loss 12/02/1999 03/29/2013 documented as of this encounter (statuses as of 07/15/2024) Immunizations Name Administration Dates Next Due COVID-19 [...] Telephone Encounter - Luba Mondragon LPN - 07/15/2024 3:34 PM EST Received Fax for BFPROVIDERS: Dr. Rhianna Huitron ORDER received from [facility] and FAXED documented in this encounter Plan of Treatment Upcoming Encounters Date Type Department Care Team (Late st Contact Info) Description 07/15/2024 4:00 PM EST Imaging Radiology [address] [facility] [place] [address] Prostate cancer (HCC) 07/18/2024 1:20 PM EST Telemedicine Rheumatology [place] [address] [place] [address] Mendel Wilson MD [facility] [place] [address] 09/08/2024 3:40 PM EST Office Visit Nephrology, [address] [address] Bryson Ellis MD [address] [place] [address] 10/17/2024 10:30 AM EDT Office Visit Cardiology, [facility] 132 [facility] [place] [address] Dmitri Greenfield, 132 [facility] [place] [address] 10/18/2024 10:00 AM EDT Laboratory Laboratory [facility] [address] [place] [phone] [place] [address] [place] [address] 10/25/2024 4:00 PM EDT Office Visit Hematology/Oncology [facility] [address] [place] [phone] Korin Fisher CRNP 400 [facility] [place] [address] 03/21/2025 11:45 AM EDT Telemedicine Urology, [facility] 132 [facility] [place] [address] Vinay Sexton MD [address] [place] [address] Scheduled Procedures Name Priority Associated Diagnoses Date/Ti [...] 01/02, 05/10/2013, Additional history exists COVID-19 Vaccine (2023- season) 2024 05/23/2022, 12/25/2021, 12/25/2021, Additional history exists GFR 01/09/2025 07/11/2024, 1209/2023, 06/27/2024, Additional history exists HbA1c 06/02/2025 06/02/2024, 040 12/2023, 06/22/2023, Additional history exists CKD PHOS USE SMARTSET 77147 06/06/20250 11/2023, 06/05/2024, 06/04/2024, Additional history exists CKD HGB USE SMARTSET 64349 07/11/202507/11, 07/11/2024, 07/04/2024, Additional history exists DTap/Tdap [...] D LEVEL ONCE IN A LIFETIME-USE SMARTSET# 42857 Completed 03/21/2024, 12/25/2023, 05/27/2021, Additional history exists [...] Discussed due to patient's condition Care Teams Supervisor Speech Relationship Specialty Start Date End Date Rhianna Huitron DO [address] [facility] [place] [place] [address] PCP - General Family Medicine 07/11/19 documented as of this encounter
--- OUTSIDE RECORDS SUMMARY | 2024-11-18 02:17 | External Medical Summary | Summary of Care ---
Author Name Unknown Organization [facility] Address [address] [place] [address] Phone [phone] Care Team Providers Care Magnetic Resonance Imaging Director Name Role Phone Kat Huitron DO Primary Care Provider [phone] Reason for Referral * Precert (Within 24 hrs (call dept; emergent)) - Pending Review Specialty Diagnoses / Procedures Referred By Contac t Referred To Contact Radiology Diagnoses Prostate cancer (HCC) Procedures CT ABD/PELVIS WO IV/ORAL CONTRAST Vinay Sexton MD [address] [place] [address] Phone: tel: fax: Referral ID Status Reason Start Date Expiration Date V isits Requested Visits Authorized [id number] Pending Review 07/12/[phone] Encounter Details Date Type Department Care Team (Latest Contact Info) Description 07/11/2024 3:00 PM EST Procedure Only Urology, [facility] [address] [facility] [place] [address] Vinay Sexton MD [address] [place] [address] Prostate cancer (HCC)*; Obstructive uropathy; Vesical fistula Allergies Active Allergy Reactions Criticality [...] tachycardia) ([facility]),Non-ischemic cardiomyopathy ([facility]),Chronic HFrEF (heart failure with reduced ejection fraction) (HCC) Take 1 Tablet by mouth in the morning and 1 Tablet before bedtime. 180 Tablet 1 05/31/20 24 Active Furosemide 20 MG Oral Tablet (Lasix)Indications :FREDY (acute kidney injury) (HCC),Hyponatremia Take 1 Tablet by mouth in the [...] intravenously every 6 hours. 24 g 4 3:30 PM EST 07/08/20 24 025 Active Vancomycin [...] glucose 12/16/2005 Macular degeneration 12/02/1999 DISC DIS [id number] documented as of this encounter (statuses as [...] colonoscopy in 5 years ARTHRITIS,RHEUMATOID 07/07/2006 016 [id number] 07/07/200611/01 Overview (11/16/2009): Renamed Per Clinical Trials Billing Project. Pt is a participant in the [facility] (Consortium of Rheumatology Researchers [place]) national data collection study. For further information please call Dr Hari Clark or Julia White, RN, CCRC at [phone] [facility] RESEARCH OTHER*[id number] 07/07/2006 01/28/2010 Overview (11/16/2009): Renamed Per Clinical Trials Billing Project. Pt is a participant in the [facility] (Consortium of Rheumatology Researchers [place]) national data collection study. For further information please call Dr Hari Clark or Julia White, RN, CCRC at [phone] ADVANCE DIRECTIVE INFORMATION 05/19/2006 06/06/2024 Overview (05/19/2006): Yes-advised to bring copy in to be scanned into EMR. Hearing loss 12/02/1999 03/29/2013 documented as of this encounter (statuses as of 07/11/2024) Immunizations Name Administration Dates Next Due COVID-19 mRNA, LNP-s, No Pre serve, 2-Dose Series ([employer]) 06/14/2021,10/10/2020,09/12/2020 COVID-19, LNP-s, No Preserve , Yousuf-sucrose, [...] Progress Notes * Vinay Sexton MD - 07/11/2024 3:00 PM EST [id number] PCP: [place] [address] Markus Wharton is a 79 year old male, who presents for cystoscopy for exchange of Ingram catheter. The patient's eventful health since last being seen are appreciated. Catheter is due for exchange.Patient is completing his course of vancomycin in the next 48 hours. Note from Mary Jewell regarding placement of catheter over wire is appreciated. BPH: Patient is being seen for BPH [...] Palliative XRT completed June 2023. CT scan done May 2024 PSA Results: Lab Results Component Value Date/Time PSA - [facility] 0.03 05/30/2024 03:59 PM PSA - [facility] 0.04 03/21/2024 08:43 AM PSA - [facility] 0.05 12/25/2023 02:31 PM PSA - [facility] 0.88 12/03/2006 09:18 [...] morning and 1 Tablet before bedtime. (Patient not taking: Reported on 06/02/2024) 180 Tablet 3 Folic Acid 1 MG Oral [...] 1 Tablet before bedtime. 60 Tablet 5 Urea 15 GM Oral Packet (Ure-Na) Take 15 g by mouth in the morning and 15 g before bedtime. 60 Packet 5 Clopidogrel Bisulfate 75 MG Oral Tablet (pLAVix) TAKE 1 TABLET BY MOUTH EVERY DAY IN THE MORNING 90Tablet 3 Sodium Chloride Flush 0.9 % Intravenous Solution Administer 10 mL intravenously 4 times a day as needed for Other. Flush PICC before and after IV administration. Single use syringe: discard after use. 900 mL 0 Heparin Na (Pork) Lock Flsh PF 10 UNIT/ML Intravenous Solution Inject 5 mL intravenously 2 times a day as needed for Other. Flush PICC after IV administration, following saline flush. Flush unused lumen twice daily. Single use syringe: discard after use. 400 mL 0 Ampicillin-Sulbactam (Unasyn) 3 g in NSS 65 mL infusion Administer 3 g over 30 minutes intravenously every 6 hours. 24 g 0 Vancomycin (Vancocin) 1,250 mg in NSS 250 mL infusion Administer 1,250 mg over 90 minutes intravenously every 24 hours. 1250 mg 0 No current facility-administered medications for this [...] date: 08/03/1961 Quit date: 08/03/1997 Years since quittin.9 Passive exposure: Past Smokeless tobacco: Never Tobacco comments: occasional cigar Substance Use Topics Alcohol use: Not Currently Vaping/E-Cigarette Use Vaping/E-Cigarette Use Never User Vaping/E-Cigarette Substances Vaping/E-Cigarette Devices Past Surgical History: Procedure Laterality Date COLONOSCOPY W/ LESION REMOVAL, SNARE 05/10/07 adenomatous repeat in 5 years COLONOSCOPY, DIAGNOSTIC (RECTUM) 05/10/2013 COLONOSCOPY FLEXIBLE PROXIMAL DIAGNOSTIC performed by Teddy Rizvi MD at ENDOSCOPY [facility] COLONOSCOPY, DIAGNOSTIC (RECTUM) 01/21/2019 diverticulosis, repeat 5 yrs/COLONOSCOPY FLEXIBLE PROXIMAL DIAGNOSTIC performed by Teddy Rizvi MD at ENDOSCOPY [facility] IR ASPIRATION ABSCESS/COLLECTION 06/06/2024 REMOVE TONSILS & ADENOIDS, AGE 12+ 1980 Tonsillectomy/Adenoids,12+ Y/O Past Medical History: Diagnosis Date Arthritis, rheumatoid (HCC) Benign neoplasm of colon 05/10/07 adenomatous repeat colonoscopy in 5 years Degeneration of lumbosacral intervertebral disc Elevated blood pressure, situational Fuchs' corneal dystrophy 10/19/2018 Impaired fasting glucose Macular degeneration Morbid (severe) obesity due to excess calories ([facility]) 08/19/2017 Patient Active Problem List Diagnosis Macular degeneration DISC DIS [id number] Impaired fasting glucose Encounter for long-term (current) [...] properly identified and appropriate consent was confirmed. Indwelling 18 Latvian Councill catheter was removed. Risks and benefits of the procedure were reviewed and the patient was prepped and draped in the standard fashion for the procedure. A well lubricated 16 Latvian flexible cystoscope was introduced through the meatus into the urethra. Urethra demonstrated normal urethral tissue up to the level of the bulbous urethra followed by necrotic tissue circumferentially proximal to this with obliteration of the normal urethral channel . Prostatic urethra demonstrated circumferential necrotic tissue with a poorly defined lumen . Bladder was noted to be decompressed with resistance at the prostatic scar tissue to placement of the scope. Seen the presence of an 18 Latvian Ingram catheter the bladder was partially distended with 200 mL of sterile saline. Purulence within the bladder was improved although inflammation remained. Catheter was removed and an 18 Latvian coude catheter was able to be placed with mild resistance, tip biased towards the patient's left to the level of the hub without folding of the catheter and return of clear irrigant consistent with intravesical placement. 10 mL of sterile water were placed in the catheter balloon and catheter was placed to gravity drainage. Patient tolerated the procedure well without complications or difficulties. Network Specialist was present for entire procedure. Patient remains on IV vancomycin. 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 Will check soft tissues with repeat CT imaging to allow for comparison as the patient completes hisantibiotic. Air within the bladder and possibly the soft tissues from cystoscopy will likely again be visible on imaging. Will plan on repeat catheter exchange in office in a month's time, consider exchange over wire with suprapubic catheter if the patient remains with necrotic tissue within the prostatic fossa. Worrisome signs and symptoms reviewed. Patient vocalizes good understanding of the treatment plan. Vinay Sexton MD 11:25 AM 07/11/2024 documented in this encounter Plan of Treatment Upcoming Encounters Date Type Department Care Team (Late st Contact Info) Description 07/12/2024 9:00 AM EST Pharmacy Home Infusion, [place] [address] [place] [address] Mgmt, Vitaline Pharmacist Antig [address] [address] 07/18/2024 1:20 PM EST Telemedicine Rheumatology [address] [place] [address] Mendel Wilson MD [address] [place] [address] [place] [address] 07/21/2024 11:15 AM EST Imaging Radiology [facility] [address] [facility] [place] [address] 07/21/2024 2:30 PM EST Office Visit Cardiology, [facility] [address] [facility] [place] [address] Chiara Meyer CRNP [address] [facility] [place] [address] 09/08/2024 3:40 PM EST Office Visit Nephrology, [address] [id number] Bryson Ellis MD [address] [place] [id number] 10/17/2024 10:30 AM EDT Office Visit Cardiology, [facility] [address] [facility] [place] [address] Dmitri Greenfield DO [facility] [place] [address] 10/18/2024 10:00 AM EDT Laboratory Laboratory Sc[facility]ery [facility] [address] [place] [phone] [place], Lab Scenery [address] [place] [address] 10/25/2024 4:00 PM EDT Office Visit Hematology/Oncology [facility] [address] [place] [address] Korin Fisher CRNP [address] [place] [address] 03/21/2025 11:45 AM EDT Telemedicine Urology, [facility] [address] [facility] [place] [address] Vinay Sexton MD [address] [place] [address] Pending Results Name Type Priority Associated Diagnoses Date /Time PSA Lab Routine Prostate cancer (HCC) 07/11/2024 8:28 AM EST Scheduled Orders Name Type Priority Associated Diagnoses Orde r Schedule PSA Lab Routine Prostate cancer (HCC) Expected: 07/11/2024, Expires: 07/11/2025 CT ABD/PELVIS WO IV/ORAL CONTRAST Medical Imaging STAT Prostate cancer (HCC) Expected: 07/12/2024, Expires: 08/11/2025 CYSTOSCOPY Procedures Routine Prostate cancer (HCC) Obstructive uropathy Vesical fistula Ordered: 07/11/2024 INS TEMP INDWELL CATH,COMPL Procedures Routine Prostate cancer (HCC) Obstructive uropathy Vesical fistula Ordered: 07/11/2024 Scheduled Procedures Name Priority Associated Diagnoses Date/Ti [...] Additional history exists CKD PHOS USE SMARTSET 50957 06/06/202511/2023, 06/05/2024, 06/04/2024, Additional history exists CKD HGB USE SMARTSET 61124 07/11/202507/11, 07/11/2024, 07/04/2024, Additional history exists DTap/Tdap [...] D LEVEL ONCE IN A LIFETIME-USE SMARTSET# [id number] Completed 03/21/2024, 12/25/2023, 05/27/2021, Additional history exists [...] Discussed due to patient's condition Care Teams Magnetic Resonance Imaging Director Relationship Specialty Start Date End Date Kat Huitron DO [address] [place] [address] PCP - General Family Medicine 07/11/19 documented as of this encounter
--- OUTSIDE RECORDS SUMMARY | 2024-11-18 02:17 | External Medical Summary | Summary of Care ---
Author Name Unknown Organization [facility] Address [address] [place] [address] Phone [phone] Care Team Providers Care Culinary Intern Name Role Phone Rhianna Huitron DO Primary Care Provider Reason for Visit * Reason Onset Date Comments Advice 07/18/2024 Encounter Details Date Type Department Care Team (Late st Contact Info) Description 07/18/2024 Telephone Urology, [facility] [address] [facility] [place] [address] Vinay Sexton MD [address] [place] [address] Advice Allergies Active Allergy Reactions Criticality Noted Date [...] Acid 1 MG Oral TabletIndications: Arthritis, rheumatoid ([facility]) TAKE 1 TABLET BY MOUTH [...] Hour (toPROL XL)Indications:NSV T (nonsustained ventricular tachycardia) ([facility]),Non-ischemic cardiomyopathy ([facility]),Chronic HFrEF (heart failure with reduced ejection fraction) ([facility]) Take 1 Tablet by mouth in the morning and 1 Tablet before bedtime. 180 Tablet 1 05/31/20 24 Active Furosemide 20 MG Oral Tablet (Lasix)Indications :FREDY (acute kidney injury) ([facility]),Hyponatremia Take 1 Tablet by mouth in the morning and 1 Tablet before bedtime. 60 Tablet 5 05/31/20 24 Active Clopidogrel Bisulfate 75 MG Oral Tablet (pLAVix) TAKE 1 TABLET BY MOUTH EVERY DAY IN THE MORNING 90 Tablet 3 06/16/20 24 Active Sodium Chloride Flush 0.9 % Intravenous SolutionIndication s:Osteomyelitis of symphysis pubis ([facility]) Administer 10 mL intravenously 4 [...] glucose 12/16/2005 Macular degeneration 12/02/1999 DISC DIS [id number] documented as of this encounter (statuses as [...] colonoscopy in 5 years ARTHRITIS,RHEUMATOID 07/07/2006 016 [id number] 07/07/200611/01 Overview (11/16/2009): Renamed Per Clinical Trials Billing Project. Pt is a participant in the [employer] (Consortium of Rheumatology Researchers [place]) national data collection study. For further information please call Dr Hari Clark or Julia White, RN, CCRC at [phone] [facility] RESEARCH OTHER*[id number] 07/07/2006 01/28/2010 Overview (11/16/2009): Renamed Per Clinical Trials Billing Project. Pt is a participant in the [facility] (Consortium of Rheumatology Researchers of [facility]) national data collection study. For further information please call Dr Hari Clark or Julia White, RN, CCRC at [phone] ADVANCE DIRECTIVE INFORMATION 05/19/2006 06/06/2024 Overview (05/19/2006): Yes-advised to bring copy in to be scanned into EMR. Hearing loss 12/02/1999 03/29/2013 documented as of this encounter (statuses as of 07/19/2024) Immunizations Name Administration Dates Next Due COVID-19 mRNA, LNP-s, No Pre serve, 2-Dose Series ([employer]) 06/14/2021,10/10/2020,09/12/2020 COVID-19, LNP-s, No Preserve , Yousuf-sucrose, [...] EDLucita Nugent RN documented in this encounter Miscellaneous Notes * Telephone Encounter - Mendel Wilson MD - 07/19/2024 2:[address] Sexton. Ok thanks. Patient reported ID was ok with him restarting MTX. It is in Dr Bland's 07/07 note * Telephone Encounter - Vinay Sexton MD - 07/18/2024 4:08 PM EST I reviewed the patient's CT images. It certainly looks improved from the patient's previous imagingstudies. Clinically, the patient does not appear infected, but this was also the case on his initial presentation. Some of the air present on the CT scan is likely residual from cystoscopy and manipulation at the time of office visit. Regarding MTX in the need for further antibiotics in the contextof the patient's history of osteomyelitis and sepsis would defer to Infectious Disease. Patient completed his IV vancomycin last week, it does not sound like he has suffered any significant setbacks coming off of medication. I will see the patient in person in 3 weeks' time for his next catheter exchange. Thanks, HM * Telephone Encounter - Vinay Sexton MD - 07/18/2024 4:08 PM EST ----- Message from Mendel Wilson MD sent at 07/18/2024 1:23 PM EST ----- Regarding: CT result I saw Markus via telehealth today - any concerns for ongoing infection on his CT or is it just changes from his radiation Ok to be back on MTX? Mendel documented in this encounter Plan of Treatment Upcoming Encounters Date Type Department Care Team (Late st Contact Info) Description 08/15/2024 1:00 PM EST Procedure Only Urology, [facility] [address] [facility] [place] [address] Vinay Sexton MD [address] [facility] [place] [address] 09/08/2024 3:40 PM EST Office [address], [address] [place] [address] Bryson Ellis MD [address] [place], [place] [address] 10/17/2024 10:30 AM EDT Office Visit Cardiology, [facility] [address] [place] [address] Dmitri Greenfield, [address] [place] [address] 10/18/2024 10:00 AM EDT Laboratory Laboratory [facility] [address] [place] [phone] [place], [facility] [address] [facility] [place] [address] 10/25/2024 4:00 PM EDT Office Visit Hematology/Oncology [facility] [address] [place] [phone] Korin Fisher CRNP [address] [facility] [place] [address] 03/21/2025 11:45 AM EDT Telemedicine Urology, [facility] [address] [place] [address] Vinay Sexton MD [address] [facility] [place] [address] Scheduled Procedures Name Priority Associated Diagnoses Date/Ti [...] Additional history exists CKD PHOS USE SMARTSET 65506 06/06/202511/2023, 06/05/2024, 06/04/2024, Additional history exists CKD HGB USE SMARTSET 40232 07/11/202507/11, 07/11/2024, 07/04/2024, Additional history exists DTap/Tdap [...] D LEVEL ONCE IN A LIFETIME-USE SMARTSET# 90641 Completed 03/21/2024, 12/25/2023, 05/27/2021, Additional history exists [...] Discussed due to patient's condition Care Teams Culinary Intern Relationship Specialty Start Date End Date Rhianna Huitron DO [address] [place] [address] PCP - General Family Medicine 07/11/19 documented as of this encounter
--- OUTSIDE RECORDS SUMMARY | 2024-11-18 02:17 | External Medical Summary | Summary of Care ---
Author Name Unknown Organization [facility] Address [address] [place] [address] Phone [phone] Care Team Providers Care Lead Software Test Engineer Name Role Phone Rhianna Huitron DO Primary Care Provider [phone] Reason for Visit * Reason Comments Outpatient Testing Encounter Details Date Type Department Care Team (Late st Contact Info) Description 07/11/2024 9:00 AM EST Laboratory Laboratory, [facility] [address] [place] [address] St, Specimen Drop Off [facility] [address] [facility] [place] [id number] Arrived Allergies Active Allergy Reactions Criticality Noted Date [...] Hour (toPROL XL)Indications:NSV T (nonsustained ventricular tachycardia) ([facility]),Non-ischemic cardiomyopathy (HCC),Chronic HFrEF (heart failure with reduced ejection fraction) ([facility]) Take 1 Tablet by mouth in the morning and 1 Tablet before bedtime. 180 Tablet 1 05/31/20 24 Active Furosemide 20 MG Oral Tablet (Lasix)Indications :FREDY (acute kidney injury) ([facility]),Hyponatremia Take 1 Tablet by mouth in the morning and 1 Tablet before bedtime. 60 Tablet 5 05/31/20 24 Active Urea 15 GM Oral Packet (Ure-Na)Indication s:FREDY (acute kidney injury) ([facility]),Hyponatremia Take 15 g by mouth in the [...] glucose 12/16/2005 Macular degeneration 12/02/1999 DISC DIS [id number] documented as of this encounter (statuses as [...] colonoscopy in 5 years ARTHRITIS,RHEUMATOID 07/07/2006 016 [id number] 07/07/200611/01 Overview (11/16/2009): Renamed Per Clinical Trials Billing Project. Pt is a participant in the [employer] (Consortium of Rhe[place]ology [place] national data collection study. For further information please call Dr Hari Clark or Julia White, RN, CCRC at [phone] [facility] RESEARCH OTHER*[id number] 07/07/2006 01/28/2010 Overview (11/16/2009): Renamed Per Clinical Trials Billing Project. Pt is a participant in the [employer] (Consortium of [place]ology [place] national data collection study. For further information please call Dr Hari Clark or Julia White RN, CCRC at [phone] ADVANCE DIRECTIVE INFORMATION 05/19/2006 06/06/2024 Overview (05/19/2006): [...] Lucita Ledesma RN documented in this encounter Plan of Treatment Upcoming Encounters Date Type Department Care Team (Late st Contact Info) Description 07/11/2024 3:00 PM EST Procedure Only Urology, [facility] [address] [facility] [place] [address] Vinay Sexton MD [address] [facility] [place] [address] 07/12/2024 9:00 AM EST Pharmacy Home Infusion, [place] [address] [place] [address] Mgmt, Vitaline Pharmacist Anti [address] [place] [address] 07/18/2024 1:20 PM EST Telemedicine Rheumatology [place] [address] [facility] [place] [address] Mendel Wilson MD [address] [facility] [address] 07/21/2024 2:30 PM EST Office Visit Cardiology, [facility] [address] [facility] [place] [address] Chiara Meyer CRNP [address] [facility] [place] [address] 09/08/2024 3:40 PM EST Office Visit Nephrology, [facility] [address] [place] [address] Bryson Ellis MD [address] [place] [address] 10/17/2024 10:30 AM EDT Office Visit Cardiology, [facility] [address] [facility] [place] [address] Dmitri Greenfield, [address] [facility] [place] [address] 10/18/2024 10:00 AM EDT Laboratory Laboratory [facility] [address] [place] [phone] [place], Lab Scenery [address] [place] [address] 10/25/2024 4:00 PM EDT Office Visit Hematology/Oncology [facility] [address] [place] [phone] Korin Fisher CRNP [address] [place] [address] 03/21/2025 11:45 AM EDT Telemedicine Urology, [facility] [address] [facility] [place] [address] Vinay Sexton MD [address] [place] [address] Scheduled Procedures Name Priority Associated Diagnoses Date/Ti [...] 06/20/2024, Additional history exists HbA1c 06/02/2025 06/02/2024, 12/2023, 06/22/2023, Additional history exists CKD PHOS USE SMARTSET 42953 06/06/202511/2023, 06/05/2024, 06/04/2024, Additional history exists CKD HGB USE SMARTSET 18588 07/04/202507/04, 07/04/2024, 06/27/2024, Additional history exists DTap/Tdap [...] D LEVEL ONCE IN A LIFETIME-USE SMARTSET# 50271 Completed 03/21/2024, 12/25/2023, 05/27/2021, Additional history exists [...] Discussed due to patient's condition Care Teams Lead Software Test Engineer Relationship Specialty Start Date End Date Rhianna Huitron DO [address] [place] [address] PCP - General Family Medicine 07/11/19 documented as of this encounter
--- OUTSIDE RECORDS SUMMARY | 2024-11-18 02:17 | External Medical Summary | Summary of Care ---
Author Name Unknown Organization [facility] Address [address] [place] [address] Phone [phone] Care Team Providers Care Drain Tiler Name Role Phone Rhianna Huitron DO Primary Care Provider [phone] Reason for Visit * Reason Comments Outpatient Testing Encounter Details Date Type Department Care Team (Late st Contact Info) Description 07/11/2024 9:00 AM EST Laboratory Laboratory, [facility] [address] [place] [address] St, Specimen Drop Off [facility] [address] [place] [address] Urinary tract infection; Atrophy of prostate; Peritoneal [...] (nonsustained ventricular tachycardia) ([facility]),Non-ischemic cardiomyopathy (HCC),Chronic HFrEF (heart failure with reduced [...] glucose 12/16/2005 Macular degeneration 12/02/1999 DISC DIS [id number] documented as of this encounter (statuses as [...] colonoscopy in 5 years ARTHRITIS,RHEUMATOID 07/07/2006 016 [id number] 07/07/200611/01 Overview (11/16/2009): Renamed Per Clinical Trials Billing Project. Pt is a participant in the [employer] (Consortium of [employer]ology Researchers [place]) national data collection study. For further information please call Dr Hari Clark or Julia White, RN, CCRC at [phone] [employer] RESEARCH OTHER*[id number] 07/07/2006 01/28/2010 Overview (11/16/2009): Renamed Per Clinical Trials Billing Project. Pt is a participant in the [employer] (Consortium of Rheumatology Researchers [place]) national data collection study. For further information please call Dr Hari Clark or Julia White RN, CCRC at [phone] ADVANCE DIRECTIVE INFORMATION 05/19/2006 06/06/2024 Overview (05/19/2006): [...] 07/11/2024 3:00 PM EST Procedure Only Urology, [facility] [place] 132 [facility] [place] [address] Vinay Sexton MD [address] [place] [address] 07/12/2024 9:00 AM EST Pharmacy Home Infusion, [place] [address] [place] [address] [facility], [facility] Pharmacist Antig [address] [place] [address] 07/18/2024 1:20 PM EST Telemedicine Rheumatology [place] [address] [place] [address] Mendel Wilson MD [address] [place] [address] [place] [address] 07/21/2024 2:30 PM EST Office Visit Cardiology, [facility] [place] 132 [facility] [place] [address] Chiara Meyer CRNP [address] [facility] [place] [address] 09/08/2024 3:40 PM EST Office Visit Nephrology, [facility] [address] [place] [address] Bryson Ellis MD [address] [place] [address] 10/17/2024 10:30 AM EDT Office Visit Cardiology, [facility] [place] [address] [facility] [place] [address] Dmitri Greenfield DO 132 [facility] [place] [address] 10/18/2024 10:00 AM EDT Laboratory Laboratory [facility] [address] [place] [address] [place], [facility] [address] [place] [address] 10/25/2024 4:00 PM EDT Office Visit Hematology/Oncology [facility] [address] [place] [address] Korin Fisher CRNP [address] [place] [address] 03/21/2025 11:45 AM EDT Telemedicine Urology, [facility] [place] [address] [facility] [place] [address] Vinay Sexton MD 27 [place] [address] Pending Results Name Type Priority Associated Diagnoses [...] Additional history exists CKD PHOS USE SMARTSET 24840 06/06/20250 11/2023, 06/05/2024, 06/04/2024, Additional history exists CKD HGB USE SMARTSET 19010 07/04/202507/04, 07/04/2024, 06/27/2024, Additional history exists DTap/Tdap [...] D LEVEL ONCE IN A LIFETIME-USE SMARTSET# 05469 Completed 03/21/2024, 12/25/2023, 05/27/2021, Additional history exists [...] Discussed due to patient's condition Care Teams Drain Tiler Relationship Specialty Start Date End Date Rhianna Huitron DO [address] [place] [facility] [place] [address] PCP - General Family Medicine 07/11/19 documented as of this encounter
--- OUTSIDE RECORDS SUMMARY | 2024-11-18 02:17 | External Medical Summary ---
Author Name Unknown Address Unknown Organization K01:[facility] [place] [address] [place] [address] Laboratory Report Ordering Provider Test Date Status PAM MURILLO 07/11/2024 08:28:00 Final Observation Date Value Abnormality Reference (Units ) Status PSA 07/11/2024 08:28:00 <0.02 <4.10 (ng/ mL) Final Performing Location [facility] - [address] [place] [address]
--- OUTSIDE RECORDS SUMMARY | 2024-11-18 02:18 | External Medical Summary | Summary of Care ---
Author Name Unknown Organization [facility] Address [address] [address] Phone [phone] Care Team Providers Care Shelter Advocate Name Role Phone Rhianna Huitron DO Primary Care Provider Reason for Visit * Reason Comments Outpatient Testing Encounter Details Date Type Department Care Team (Late st Contact Info) Description 07/04/2024 9:10 AM EST Laboratory Laboratory, [facility] [address] [place] [address] St, Specimen Drop Off Ranger Ow[place] [address] [facility] [place] [id number] Postcoital bleeding; Atrophy of prostate; Peritoneal abscess (HCC) Allergies Active Allergy Reactions Criticality Noted Date Comments Brent Inhibitors Cough Low 11/26/2017 Alendronate Sodium Muscle pain 04/11/2019 Heartburn, constipation, joint pain Misoprostol Diarrhea 08/08/2003 Niacin Er (Antihyperlipidemic) 11/26/2010 Gas, hot flashes Pollen 01/01/2018 Watery eyes, sneezing Pravastatin 02/26/2007 Upset stomach, all .Statins Simvastatin 02/26/2007 Upset stomach documented as of this encounter (statuses as of 07/04/2024) Medications ASPIR-81 81 MG PO TBEC 1 [...] - [place]) Take 1 Tablet by mouth in the [...] Oral Packet (Ure-Na)Indication s:FREDY (acute kidney injury) ([facility]),Hyponatremia Take 15 g by mouth in the morning and 15 g before bedtime. 60 Packet 5 05/31/20 24 Active ampicillin-sulbact am IV IJ (AMBULATORY)Indica tions:Osteomyeliti s of symphysis pubis ([facility]) Administer 3 g intravenously every 6 hours. 348 g 06/14/20 24 024 Active Clopidogrel Bisulfate 75 MG Oral Tablet (pLAVix) TAKE 1 TABLET BY MOUTH EVERY DAY IN THE MORNING 90 Tablet 3 06/16/20 Active vancomycin IV IV (AMBULATORY) Administer 1,250 mg intravenously daily for 21 days. Vancomycin Dose per Pharmacy for Goal AUC 400-600 mg/L/hr Do not start before June 22, 2024. 26.25 g 06/22/20 24 Active Hospital, Clinic, or Other Facility Administered Medication Ordered Dose Route Frequency Start Date End Date Status NSS 250 mL with Vancomycin 1,250 mg INFUSION 1250 mg CENTRAL IV Q24H 06/29/2024 07/13/2024 Active NSS 65 mL with Ampicillin-Sulbactam 3 g INFUSION CENTRAL IV Q6H 07/04/2024 07/13/2024 Active documented as of this encounter (statuses as of 07/04/2024) Active Problems Problem Noted Date Diagnosed Date [...] glucose 12/16/2005 Macular degeneration 12/02/1999 DISC DIS [id number] documented as of this encounter (statuses as of 07/04/2024) Resolved Problems Problem Noted Date Diagnosed Date [...] colonoscopy in 5 years ARTHRITIS,RHEUMATOID 07/07/2006 016 [id number] 07/07/200611/01 Overview (11/16/2009): Renamed Per Clinical Trials Billing Project. Pt is a participant in the [employer] (Consortium of Rheumatology Researchers [place]) national data collection study. For further information please call Dr Hari Clark or Julia White, RN, CCRC at [phone] [facility] RESEARCH OTHER*[id number] 07/07/2006 01/28/2010 Overview (11/16/2009): Renamed Per Clinical Trials Billing Project. Pt is a participant in the [employer] (Consortium of Rheumatology Researchers [place]) national data collection study. For further information please call Dr Hari Clark or Julia White, RN, CCRC at [phone] ADVANCE DIRECTIVE INFORMATION 05/19/2006 06/06/2024 Overview (05/19/2006): Yes-advised to bring copy in to be scanned into EMR. Hearing loss 12/02/1999 03/29/2013 documented as of this encounter (statuses as of 07/04/2024) Immunizations Name Administration Dates Next Due COVID-19 [...] Care Team (Late st Contact Info) Description 07/05/2024 9:00 AM EST Pharmacy Home Infusion, [place] [address] [place] [address] Mgmt, [facility] Pharmacist Antig [address] [place] [address] 07/07/2024 10:20 AM EST Telemedicine Infectious Disease, [address] [phone] Mona Bland MD [address] [place], [place] [id number] 07/11/2024 2:00 PM EST Procedure Only Urology, [facility] 132 [place] [address] Vinay Sexton MD [address] [place] [address] 07/18/2024 1:20 PM EST Office Visit Rheumatology [address] [address] Mendel Wilson MD [address] [place] [address] 07/21/2024 2:30 PM EST Office Visit Cardiology, [facility] [address] [facility] [place] [address] Chiara Meeyr CRNP 132 [facility] [place] [address] 09/08/2024 3:40 PM EST Office Visit Nephrology, [facility] [address] [place] [address] Bryson Ellis MD [address] [place] [address] 10/17/2024 10:30 AM EDT Office Visit Cardiology, [facility] [address] [place] [address] Dmitri Greenfield DO [address] [facility] [place] [address] 10/18/2024 10:00 AM EDT Laboratory Laboratory [facility] [address] [place] [phone] Faby, Lab [facility] [address] [place] [address] 10/25/2024 4:00 PM EDT Office Visit Hematology/Oncology [facility] [address] [place] [address] Korin Fisher CRNP [address] [place] [address] 03/21/2025 11:45 AM EDT Telemedicine Urology, [facility] [address] [facility] [address] Vinay Sexton MD [address] [place] [address] Pending Results Name Type Priority Associated Diagnoses Date /Time COMPREHENSIVE METABOLIC PANEL Lab Routine Postcoital bleeding Atrophy of prostate Peritoneal abscess (HCC) 07/04/2024 7:45 AM EST CBC WITH WBC DIFFERENTIAL Lab Routine Postcoital bleeding Atrophy of prostate Peritoneal abscess (HCC) 07/04/2024 7:45 AM EST CRP (INFLAMMATORY MARKER) Lab Routine Postcoital bleeding Atrophy of prostate Peritoneal abscess (HCC) 07/04/2024 7:45 AM EST VANCOMYCIN TROUGH Lab Routine Postcoital bleeding Atrophy of prostate Peritoneal abscess (HCC) 07/04/2024 7:45 AM EST CBC Lab Routine Postcoital bleeding Atrophy of prostate Peritoneal abscess (HCC) 07/04/2024 7:45 AM EST DIFFERENTIAL, AUTOMATED Lab Routine Postcoital bleeding Atrophy of prostate Peritoneal abscess (HCC) 07/04/2024 7:45 AM EST Scheduled Procedures Name Priority Associated [...] 05/23/2022, 12/25/2021, 12/25/2021, Additional history exists GFR 12/25/2024 06/27/2024, 06/03, 06/13/2024, Additional history exists HbA1c 06/02/2025 06/02/2024, 04/0 12/2023, 06/22/2023, Additional history exists CKD PHOS USE SMARTSET 39836 06/06/20250 11/2023, 06/05/2024, 06/04/2024, Additional history exists CKD HGB USE SMARTSET 54270 06/27/202506/27, 06/27/2024, 06/20/2024, Additional history exists DTap/Tdap Vaccines (3 - [...] D LEVEL ONCE IN A LIFETIME-USE SMARTSET# 73439 Completed 03/21/2024, 12/25/2023, 05/27/2021, Additional history exists [...] as of this encounter Visit Diagnoses Diagnosis Postcoital bleeding Atrophy of prostate Peritoneal abscess (HCC) Peritoneal abscess documented in this encounter Advance Directives * Full Code (Latest Code Status on File) Date Activated Date Inactivated Comments 06/01/2024 11:10 PM 06/10/2024 6:36 PM This order reflects the patients wishes and were consensually agreed upon. Question Answer Comments Discussion of Advance Direct teo occurred with: Not Discussed due to patient's condition Care Teams Shelter Advocate Relationship Specialty Start Date End Date Rhianna Huitron DO [address] [place] [address] PCP - General Family Medicine 07/11/19 documented as of this encounter
--- OUTSIDE RECORDS SUMMARY | 2024-11-18 02:18 | External Medical Summary | Summary of Care ---
Author Name Unknown Organization [facility] Address [address] [place] [address] Phone [phone] Care Team Providers Care Campus Director Name Role Phone Rhianna Huitron DO Primary Care Provider [phone] Encounter Details Date Type Department Care Team (Late st Contact Info) Description 07/08/2024 Home Infusion Infectious Disease, [place] [address] [place] [address] Mary Paeg MD [address] [place] [address] Osteomyelitis of symphysis pubis (HCC)* Allergies Active Allergy Reactions Criticality Noted Date Comments Brent Inhibitors Cough Low 11/26/2017 Alendronate Sodium Muscle pain 04/11/2019 Heartburn, constipation, joint pain Misoprostol Diarrhea 08/08/2003 Niacin Er (Antihyperlipidemic) 11/26/2010 Gas, hot flashes Pollen 01/01/2018 Watery eyes, sneezing Pravastatin 02/26/2007 Upset stomach, all .Statins Simvastatin 02/26/2007 Upset stomach documented as of this encounter (statuses as of 07/08/2024) Medications ASPIR-81 81 MG PO TBEC 1 [...] on 06/02/2024 Folic Acid 1 MG Oral TabletIndications :Arthritis, [...] XL)Indications:NS VT (nonsustained ventricular tachycardia) ([facility]),Non-ischemi c cardiomyopathy ([facility]),Chronic HFrEF (heart failure with reduced ejection fraction) ([facility]) Take 1 Tablet by mouth in the morning and 1 Tablet before bedtime. 180 Tablet 1 05/31/20 24 Active Furosemide 20 MG Oral Tablet (Lasix)Indication s:FREDY (acute kidney injury) ([facility]),Hyponatremi a Take 1 Tablet by mouth in the morning and 1 Tablet before bedtime. 60 Tablet 5 05/31/20 24 Active Urea 15 GM Oral Packet (Ure-Na)Indicatio ns:FREDY (acute kidney injury) ([facility]),Hyponatremi a Take 15 g by mouth in the morning and 15 g before bedtime. 60 Packet 5 05/31/20 24 Active Clopidogrel Bisulfate 75 MG Oral Tablet (pLAVix) TAKE 1 TABLET BY MOUTH EVERY DAY IN THE MORNING 90 Tablet 3 06/16/20 24 Active Sodium Chloride Flush 0.9 % Intravenous SolutionIndicatio ns:Osteomyelitis of symphysis pubis (HCC) Administer 10 mL [...] use. 400 mL 07/08/20 24 025 Active Ampicillin-Sulbac naylor (Unasyn) 3 g in NSS 65 mL infusionIndicatio ns:Osteomyelitis of symphysis pubis (HCC) Administer 3 g over 30 minutes intravenously every 6 hours. 24 g 07/08/20 24 025 Active Vancomycin (Vancocin) 1,250 mg in NSS 250 mL infusionIndicatio ns:Osteomyelitis of symphysis pubis (HCC) Administer 1,250 mg over 90 minutes intravenously every 24 hours. 1250 mg 07/08/20 24 025 Active ampicillin-sulbac naylor IV IJ (AMBULATORY)Indic ations:Osteomyeli tis of symphysis pubis (HCC) Administer 3 g intravenously every 6 hours. 348 g 06/14/20 24 024 Discontin ued(Medic ation List Clean Up) vancomycin IV IV (AMBULATORY) Administer 1,250 mg intravenously daily for 21 days. Vancomycin Dose per Pharmacy for Goal AUC 400-600 mg/L/hr Do not start before June 22, 2024. 26.25 g 06/22/20 24 024 Discontin ued(Medic ation List Clean Up) Hospital, Clinic, or Other Facility Administered Medication Ordered Dose Route Frequency Start Date End Date Status NSS 65 mL with Ampicillin-Sulbact am 3 g INFUSION CENTRAL IV Q6H 07/05/2024 4 Discontinued NSS 250 mL with Vancomycin 1,250 mg INFUSION 1250 mg CENTRAL IV Q24H 07/06/2024 4 Discontinued documented as of this encounter (statuses as of 07/08/2024) Active Problems Problem Noted Date Diagnosed Date [...] glucose 12/16/2005 Macular degeneration 12/02/1999 DISC DIS [id number] documented as of this encounter (statuses as of 07/08/2024) Resolved Problems Problem Noted Date Diagnosed Date [...] colonoscopy in 5 years ARTHRITIS,RHEUMATOID 07/07/2006 016 [id number] 07/07/200611/01 Overview (11/16/2009): Renamed Per Clinical Trials Billing Project. Pt is a participant in the [employer] (Consortium of Rhe[employer] Researchers [place] national data collection study. For further information please call Dr Hari Clark or Julia White, RN, CCRC at [phone] [facility] RESEARCH OTHER*[id number] 07/07/2006 01/28/2010 Overview (11/16/2009): Renamed Per Clinical Trials Billing Project. Pt is a participant in the [employer] (Consortium of Rhe[employer]ology Researchers [place] national data collection study. For further information please call Dr Hari Clark or Julia White, RN, CCRC at [phone] ADVANCE DIRECTIVE INFORMATION 05/19/2006 06/06/2024 Overview (05/19/2006): Yes-advised to bring copy in to be scanned into EMR. Hearing loss 12/02/1999 03/29/2013 documented as of this encounter (statuses as of 07/08/2024) Immunizations Name Administration Dates Next Due COVID-19 mRNA, LNP-s, No Pre serve, 2-Dose Series (Saperion) 06/14/2021,10/10/2020,09/12/2020 COVID-19, LNP-s, No Preserve , Yousuf-sucrose, [...] Assessment Author No 06/01/2024 11:43 PM Lucita Harerll RN * Do you have serious difficulty [...] Team (Late st Contact Info) Description 07/11/2024 2:00 PM EST Procedure Only Urology, [facility] 132 [facility] [place] [address] Vinay Sexton MD [address] [place] [address] 07/12/2024 9:00 AM EST Pharmacy Home Infusion, [place] [address] [place] [address] Mgmt, [facility] Pharmacist Antig [address] [place] [address] 07/18/2024 1:20 PM EST Office Visit Rheumatology [place] [address] [facility] [place] [address] Mendel Wilson MD [facility] [place] [address] 07/21/2024 2:30 PM EST Office Visit Cardiology, [facility] 132 [place] [address] Chiara Meyer CRNP [address] [place] [address] 09/08/2024 3:40 PM EST Office Visit Nephrology, [facility] [address] [place] [address] Bryson Ellis MD [address] [place] [id number] 10/17/2024 10:30 AM EDT Office Visit Cardiology, [facility] [address] [place] [address] Dmitri Greenfield DO [address] [place] [address] 10/18/2024 10:00 AM EDT Laboratory Laboratory [facility] [address] [place] [address] Adia Hobbs [facility] [address] [place] [address] 10/25/2024 4:00 PM EDT Office Visit Hematology/Oncology [facility] [address] [place] [address] Korin Fisher CRNP [address] [place] [address] 03/21/2025 11:45 AM EDT Telemedicine Urology, [facility] 132 [facility] [place] [address] Vinay Sexton MD [address] [place] [...] 06/20/2024, Additional history exists HbA1c 06/02/2025 06/02/2024, 04/0 12/2023, 06/22/2023, Additional history exists CKD PHOS USE SMARTSET 27766 06/06/20250 11/2023, 06/05/2024, 06/04/2024, Additional history exists CKD HGB USE SMARTSET 02509 07/04/202507/04, 07/04/2024, 06/27/2024, Additional history exists DTap/Tdap [...] D LEVEL ONCE IN A LIFETIME-USE SMARTSET# 03896 Completed 03/21/2024, 12/25/2023, 05/27/2021, Additional history exists [...] as of this encounter Visit Diagnoses Diagnosis Osteomyelitis of symphysis pubis (HCC)- Primary Unspecified osteomyelitis, pelvic region and thigh documented in this encounter Advance Directives * Full Code (Latest Code Status on File) Date Activated Date Inactivated Comments 06/01/2024 11:10 PM 06/10/2024 6:36 PM This order reflects the patients wishes and were consensually agreed upon. Question Answer Comments Discussion of Advance Direct teo occurred with: Not Discussed due to patient's condition Care Teams Campus Director Relationship Specialty Start Date End Date Rhianna Huitron DO [address] [place] [facility] [place] [address] PCP - General Family Medicine 07/11/19 documented as of this encounter
--- OUTSIDE RECORDS SUMMARY | 2024-11-18 02:18 | External Medical Summary | Summary of Care ---
Author Name Unknown Organization [facility] Address [address] [place] [address] Phone [phone] Care Team Providers Care Hander In Name Role Phone Rhianna Huitron DO Primary Care Provider [phone] Encounter Details Date Type Department Care Team (Late st Contact Info) Description 07/05/2024 Orders Only [facility] [address] [place] [address] Mary Page MD [address] [place] [address] Allergies Active Allergy Reactions Criticality Noted Date Comments Brent Inhibitors Cough Low 11/26/2017 Alendronate Sodium Muscle pain 04/11/2019 Heartburn, constipation, joint pain Misoprostol Diarrhea 08/08/2003 Niacin Er (Antihyperlipidemic) 11/26/2010 Gas, hot flashes Pollen 01/01/2018 Watery eyes, sneezing Pravastatin 02/26/2007 Upset stomach, all .Statins Simvastatin 02/26/2007 Upset stomach documented as of this encounter (statuses as of 07/05/2024) Medications ASPIR-81 81 MG PO TBEC 1 [...] Hour (toPROL XL)Indications:NSV T (nonsustained ventricular tachycardia) ([facility]),Non-ischemic cardiomyopathy ([facility]),Chronic HFrEF (heart failure with reduced ejection fraction) ([facility]) Take 1 Tablet by mouth in the morning and 1 Tablet before bedtime. 180 Tablet 1 05/31/20 24 Active Furosemide 20 MG Oral Tablet (Lasix)Indications :FREDY (acute kidney injury) ([facility]),Hyponatremia Take 1 Tablet by mouth in the morning and 1 Tablet before bedtime. 60 Tablet 5 05/31/20 24 Active Urea 15 GM Oral Packet (Ure-Na)Indication s:FREDY (acute kidney injury) ([facility]),Hyponatremia Take 15 g by mouth in the morning and 15 g before bedtime. 60 Packet 5 05/31/20 24 Active ampicillin-sulbact am IV IJ (AMBULATORY)Indica tions:Osteomyeliti s of symphysis pubis ([facility]) Administer 3 g intravenously every 6 hours. 348 g 06/14/20 24 024 Active Clopidogrel Bisulfate 75 MG Oral Tablet (pLAVix) TAKE 1 TABLET BY MOUTH EVERY DAY IN THE MORNING 90 Tablet 3 06/16/20 24 Active vancomycin IV IV (AMBULATORY) Administer 1,250 mg intravenously daily for 21 days. Vancomycin Dose per Pharmacy for Goal AUC 400-600 mg/L/hr Do not start before June 22, 2024. 26.25 g 06/22/20 24 024 Active Hospital, Clinic, or Other Facility Administered Medication Ordered Dose Route Frequency Start Date End Date Status NSS 65 mL with Ampicillin-Sulbact am 3 g INFUSION CENTRAL IV Q6H 07/05/2024 4 Active NSS 250 mL with Vancomycin 1,250 mg INFUSION 1250 mg CENTRAL IV Q24H 07/06/2024 4 Active NSS 250 mL with Vancomycin 1,250 mg INFUSION 1250 mg CENTRAL IV Q24H 06/29/2024 4 Discontinued NSS 65 mL with Ampicillin-Sulbact am 3 g INFUSION CENTRAL IV Q6H 07/04/2024 4 Discontinued documented as of this encounter (statuses as of 07/05/2024) Active Problems Problem Noted Date Diagnosed Date [...] glucose 12/16/2005 Macular degeneration 12/02/1999 DISC DIS [id number] documented as of this encounter (statuses as of 07/05/2024) Resolved Problems Problem Noted Date Diagnosed Date [...] colonoscopy in 5 years ARTHRITIS,RHEUMATOID 07/07/2006 016 [id number] 07/07/200611/01 Overview (11/16/2009): Renamed Per Clinical Trials Billing Project. Pt is a participant in the [employer] ([employer]ortium [employer] [place]) national data collection study. For further information please call Dr Hari Clark or Julia White, RN, CCRC at [phone] [employer] OTHER*[id number] 07/07/2006 01/28/2010 Overview (11/16/2009): Renamed Per Clinical Trials Billing Project. Pt is a participant in the [employer] ([employer]ortium [employer] [place]) national data collection study. For further information please call Dr aHri Clark or Julia White RN, [facility] at [phone] ADVANCE DIRECTIVE INFORMATION 05/19/2006 06/06/2024 Overview (05/19/2006): Yes-advised to bring copy in to be scanned into EMR. Hearing loss 12/02/1999 03/29/2013 documented as of this encounter (statuses as of 07/05/2024) Immunizations Name Administration Dates Next Due COVID-19 [...] 07/05/2024 9:00 AM EST Pharmacy [facility], [place] [address] [place] [address] Billy Galloway Pharmacist Anti [address] [place] [address] 07/07/2024 10:20 AM EST Telemedicine Infectious Disease, [address] [phone] Mona Bland MD [address] [place] [address] 07/11/2024 2:00 PM EST Procedure Only Urology, [facility] [address] [facility] [address] Vinay Sexton MD [address] [place] [address] 07/18/2024 1:20 PM EST Office Visit Rheumatology [address] [place] [address] Mendel Wilson MD [address] [place] [address] [place] [address] 07/21/2024 2:30 PM EST Office Visit Cardiology, [facility] [address] [facility] [address] Chiara Meyer CRNP [address] [facility] [place] [address] 09/08/2024 3:40 PM EST Office Visit Nephrology, [facility] [address] [place] [address] Bryson Ellis MD [address] [place] [address] 10/17/2024 10:30 AM EDT Office Visit Cardiology, [facility] 132 [facility] [place] [address] Dmitri Greenfield DO [address] [facility] [place] [address] 10/18/2024 10:00 AM EDT Laboratory Laboratory [facility] [address] [place] [phone] Faby Lab [facility] [address] [place] [address] 10/25/2024 4:00 PM EDT Office Visit Hematology/Oncology [facility] [address] [place] [phone] Korin Fisher CRNP [address] [place] [address] 03/21/2025 11:45 AM EDT Telemedicine Urology, [facility] 132 [facility] [place] [address] Vinay Sexton MD [address] [place] [address] Scheduled Procedures Name Priority Associated Diagnoses Date/Ti me COLONOSCOPY FLEXIBLE PROXIMAL DIAGNOSTIC Recall Hx of colonic polyps Health Maintenance Due Date Last Done Comments Adult Wellness Visit 03/16/2020 03/16/2019 DXA Scan 01/10/2021 01/10/2019, 12/12/2005, 07/07/2006 Depression Screening 03/13/2021 03/13/2020 Albumin/Creatinine Ratio 04/10/2023 04/10/2022, 10/2006 *BISPHONATE OR OTHER ACCEPTABLE MEDICATION NEEDED FOR OSTEOPOROSIS (REFER TO SMARTSET #1146) 04/29/2023 Colonoscopy 01/22/2024 01/21/2019, 01/02, 05/10/2013, Additional history exists COVID-19 Vaccine ( season) 2024 05/23/2022, 12/25/2021, 12/25/2021, Additional history exists GFR 01/02/2025 07/04/2024, 06/04, 06/20/2024, Additional history exists HbA1c 06/02/2025 06/02/2024, 12/2023, 06/22/2023, Additional history exists CKD PHOS USE SMARTSET 14539 06/06/202511/2023, 06/05/2024, 06/04/2024, Additional history exists CKD HGB USE SMARTSET 97835 07/04/202507/04, 07/04/2024, 06/27/2024, Additional history exists DTap/Tdap [...] D LEVEL ONCE IN A LIFETIME-USE SMARTSET# 79977 Completed 03/21/2024, 12/25/2023, 05/27/2021, Additional history exists [...] Discussed due to patient's condition Care Teams Hander In Relationship Specialty Start Date End Date Rhianna Huitron DO [address] [place] [address] PCP - General Family Medicine 07/11/19 documented as of this encounter
--- OUTSIDE RECORDS SUMMARY | 2024-11-18 02:18 | External Medical Summary ---
Author Name Unknown Address Unknown Organization K01:LABORATORY [facility] - [address] [facility] [place] [address] Laboratory Report Ordering Provider Test Date Status DESIREE STEPHENS 07/11/2024 08:28:00 Final Observation Date Value Abnormality Reference (Units ) Status BUN 07/11/2024 08:28:00 14 6-20 (mg/dL) Final Creatinine 07/11/2024 08:28:00 1.1 0.6-1.2 (mg/dL) Final Glomerular filtration rate/1.73 sq M.predicted [Volume Rate/Area] in Serum, Plasma or Blood by Creatinine-based formula (CKD-EPI) 07/11/2024 08:28:00 66 >=60 (mL/min) Final eGFR is calculated based on the CKD-EPI 2020 equation. Sodium 07/11/2024 08:28:00 134 Below low normal 135 -146 (mmol/L) Final Potassium 07/11/2024 08:28:00 3.9 3.5-5.1 (m mol/L) Final Cl 07/11/2024 08:28:00 95 Below low normal 98- 107 (mmol/L) Final CO2 07/11/2024 08:28:00 26 22-32 (mmo l/L) Final Anion gap 07/11/2024 08:28:00 13 7-15 (mmol /L) Final Glucose 07/11/2024 08:28:00 135 Above high normal 70 -120 (mg/dL) Final Albumin 07/11/2024 08:28:00 3.2 Below low normal 3.8 -5.0 (g/dL) Final AST (Aspartate aminotransferase) 07/11/2024 08:28:00 11 10-50 (U/L) Fin al Alk Phos 07/11/2024 08:28:00 73 35-130 (U/ L) Final Bilirubin, Total 07/11/2024 08:28:00 <0.2 <=1 .2 (mg/dL) Final Calcium 07/11/2024 08:28:00 8.6 8.4-10.2 ( mg/dL) Final Protein 07/11/2024 08:28:00 5.9 Below low normal 6.0 -8.3 (g/dL) Final ALT (Alanine aminotransferase) 07/11/2024 08:28:00 9 Below low normal 10-50 (U/L) Final Performing Location LABORATORY [facility] - [address] [facility] [address]
--- OUTSIDE RECORDS SUMMARY | 2024-11-18 02:18 | External Medical Summary ---
Author Name Unknown Address Unknown Organization K01:[facility] [place] [address] [place] [address] Laboratory Report Ordering Provider Test Date Status DESIREE STEPHENS 07/11/2024 08:28:00 Final Observation Date Value Abnormality Reference (Units ) Status CRP, low-sensitivity 07/11/2024 08:28:00 61 Above high normal <=5 (mg/L) Final Performing Location LABORATORY C - [address] [place] [address]
--- OUTSIDE RECORDS SUMMARY | 2024-11-18 02:18 | External Medical Summary | Summary of Care ---
Author Name Unknown Organization [facility] Address [address] [place] [address] Phone [phone] Care Team Providers Care Financial Aid Counselor Name Role Phone Rhianna Huitron DO Primary Care Provider Reason for Visit * Reason Comments Osteomyelitis Encounter Details Date Type Department Care Team (Latest Contact Info) Description 07/07/2024 10:20 AM EST Telemedicine Infectious Disease, [address] [phone] Mona Bland MD [address] [place] [address] Osteomyelitis of symphysis pubis (HCC)* Allergies Active Allergy Reactions Criticality Noted Date Comments Brent Inhibitors Cough Low 11/26/2017 Alendronate Sodium Muscle pain 04/11/2019 Heartburn, constipation, joint pain Misoprostol Diarrhea 08/08/2003 Niacin Er (Antihyperlipidemic) 11/26/2010 Gas, hot flashes Pollen 01/01/2018 Watery eyes, sneezing Pravastatin 02/26/2007 Upset stomach, all .Statins Simvastatin 02/26/2007 Upset stomach documented as of this encounter (statuses as of 07/07/2024) Medications ASPIR-81 81 MG PO TBEC 1 [...] XL)Indications:NSV T (nonsustained ventricular tachycardia) ([facility]),Non-ischemic cardiomyopathy (HCC),Chronic HFrEF (heart failure with reduced ejection fraction) ([facility]) Take 1 Tablet by mouth in the morning and 1 Tablet before bedtime. 180 Tablet 1 05/31/20 24 Active Furosemide 20 MG Oral Tablet (Lasix)Indications :FREDY (acute kidney injury) ([facility]),Hyponatremia Take 1 Tablet by mouth in the morning and 1 Tablet before bedtime. 60 Tablet 5 05/31/20 24 Active Urea 15 GM Oral Packet (Ure-Na)Indication s:FREDY (acute kidney injury) ([facility]),Hyponatremia Take 15 g by mouth in the morning and 15 g before bedtime. 60 Packet 5 05/31/20 24 Active ampicillin-sulbact am IV IJ (AMBULATORY)Indica tions:Osteomyeliti s of symphysis pubis ([facility]) Administer 3 g intravenously every 6 hours. [...] End Date Status NSS 65 mL with Ampicillin-Sulbactam 3 g INFUSION CENTRAL IV Q6H 07/05/2024 07/13/2024 Active NSS 250 mL with Vancomycin 1,250 mg INFUSION 1250 mg CENTRAL IV Q24H 07/06/2024 07/13/2024 Active documented as of this encounter (statuses as of 07/07/2024) Active Problems Problem Noted Date Diagnosed Date [...] glucose 12/16/2005 Macular degeneration 12/02/1999 DISC DIS [id number] documented as of this encounter (statuses as of 07/07/2024) Resolved Problems Problem Noted Date Diagnosed Date [...] colonoscopy in 5 years ARTHRITIS,RHEUMATOID 07/07/2006 016 [id number] 07/07/200611/01 Overview (11/16/2009): Renamed Per Clinical Trials Billing Project. Pt is a participant in the [employer] (Consortium of [employer] [place] national data collection study. For further information please call Dr Hari Clark or Julia White, RN, CCRC at [phone] [facility] RESEARCH OTHER*[id number] 07/07/2006 01/28/2010 Overview (11/16/2009): Renamed Per Clinical Trials Billing Project. Pt is a participant in the [employer] (Consortium of Rhe[employer]ology [place] national data collection study. For further information please call Dr Hari Clark or Julia White, RN, CCRC at [phone] ADVANCE DIRECTIVE INFORMATION 05/19/2006 06/06/2024 Overview (05/19/2006): Yes-advised to bring copy in to be scanned into EMR. Hearing loss 12/02/1999 03/29/2013 documented as of this encounter (statuses as of 07/07/2024) Immunizations Name Administration Dates Next Due COVID-19 [...] documented in this encounter Progress Notes * Mona Bland MD - 07/07/2024 10:23 AM EST Images from the original note were not included. INFECTIOUS DISEASE, [facility]: Patient location: HOME. I was in a hospital or clinic location. After connecting through televideo,patient was verified with two unique identifiers. Patient (or authorized legal client support representative) was then informed that this was a Telemedicine visit and being conducted confidentially over secure lines. Methods to assure confidentiality were taken. Patient acknowledged consent and understanding of pr ivacy and security of the Telemedicine visit. The patient agreed to participate. Markus Wharton is a 79 year old male here for follow up of parasymphyseal abscess and OM of pubic symphysis HPI: 79 y/o male PMHx of HTN, CKD 3A, RA, CAD, and prostate CA s/p EBRT (2022), currently on Lupron. The patient has had chronic bautista for past 2 months (last replaced on 05/30/24). 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 Also, noted to have malpositioned bautista w/ a portionof the catheter extending into the symphysis pubis and distended blader w/ moderate b/l hydroureteronephrosis. Transferred from [facility] for high level of care. Had IR drain of the fluid for culture on 06/06/24 after being on broad spectrum abx for several days since 06/02.His cultures grew corynebacterium and streptococcus for which he was treated with vancomycin until 07/13/24 and parvimonas for which he was treated with unasyn until 07/13/24.He reports he has had no issues with the IV antibiotics and will be glad to finish the antibiotics and re-start his methotrexate Review of patient's allergies indicates: Allergen Reactions [...] 15 g before bedtime. 60 Packet 5 ampicillin-sulbactam IV IJ (AMBULATORY) Administer 3 g intravenously every 6 hours. 348 g 0 Clopidogrel Bisulfate 75 MG Oral Tablet (pLAVix) TAKE 1 TABLET BY MOUTH EVERY DAY IN THE MORNING 90Tablet 3 vancomycin IV IV (AMBULATORY) Administer 1,250 mg intravenously daily for 21 days. Vancomycin Dose per Pharmacy for Goal AUC 400-600 mg/L/hr Do not start before June 22, 2024. 26.25 g 0 Current Facility-Administered Medications Medication Dose Route Frequency Provider Last Rate Last Admin NSS 65 mL with Ampicillin-Sulbactam 3 g INFUSION Central IV Q6H NSS 250 mL with Vancomycin 1,250 mg INFUSION 1,250 mg Central IV Q24H Patient Active Problem List Diagnosis Macular degeneration DISC DIS [id number] Impaired fasting glucose Encounter for long-term (current) use of medications BMI 35-39 ISOLATED (SEE ACTUAL BMI) Rheumatoid arthritis involving multiple sites with positive rheumatoid factor (HCC) HTN, goal below 130/80 History of colon polyps Fuchs' corneal dystrophy Prediabetes Morbid obesity with BMI of 40.0-44.9, adult ([facility]) Dyslipidemia, goal LDL below 160 Osteoporosis with symptom management only Prostate cancer ([facility]) Heart failure ([facility]) Chronic kidney disease, stage 3a ([facility]) S/P angioplasty with stent Hyponatremia Septic shock ([facility]) 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 PHYSICAL EXAM: General: alert, no distress, comfortable, and cooperative Head: Normocephalic Eye Exam: PERRLA Lungs: normal respiratory rate and rhythm Neuro Exam: alert & oriented x 3 with fluent speech LABS: Labs reviewed as indicated below:I have reviewed his labs and my personal interpretation is no leukocytosis MICROBIOLOGY DATA: I have reviewed his cultures and my personal interpretation is Parvimonas micra IMAGING: I have reviewed his imaging and my personal interpretation is FINDINGS: Survey CT images demonstrate air and fluid collection anterior to the pubic symphysis. Further imaging shows that the needle is in the collection. No complication noted on post aspiration imaging. IMPRESSION: CT-guided percutaneous aspiration in the parasymphyseal abscess ASSESSMENT:Patient who was found to have parasymphyseal abscess and OM of pubic symphysis for whichhe was treated with unasyn and vancomycin for 6 weeks .He will complete his IV antibiotics on 07/13/24 and I have placed an order for removal of PICC line .He can re-start his methotrexate for his RA PLAN: Continue present medication(s): Discontinue medication(s): Unasyn and vancomycin on 07/13/24 Schedule for procedure: Removal of PICC line on 07/14/24 Patient education: OM of pubic symphysis Follow up: as needed Mona Bland MD Infectious Disease, [address] [phone] documented in this encounter Plan of Treatment Upcoming Encounters Date Type Department Care Team (Late st Contact Info) Description 07/11/2024 2:00 PM EST Procedure Only Urology, [facility] 132 [facility] [place] [address] Vinay Sexton MD [address] [place], [place] [phone] 07/12/2024 9:00 AM EST Pharmacy Home Infusion, [place] [address] [place] [address] Mgmt, [facility] Pharmacist Anti [address] [place] [address] 07/18/2024 1:20 PM EST Office Visit Rheumatology [place] [address] [facility] [place] [address] Mendel Wilson MD [facility] [place] [address] 07/21/2024 2:30 PM EST Office Visit Cardiology, [facility] 132 [facility] [place] [address] Chiara Meyer CRNP 132 [facility] [place] [address] 09/08/2024 3:40 PM EST Office Visit Nephrology, [facility] [address] [place] [address] Bryson [place] MD [address] [place] [address] 10/17/2024 10:30 AM EDT Office Visit Cardiology, [facility] 132 [facility] [place] [address] Dmitri Greenfield, 132 [facility] [place] [address] 10/18/2024 10:00 AM EDT Laboratory Laboratory [facility] [address] [place] [phone] [place], [address] Scenery [address] [place] [address] 10/25/2024 4:00 PM EDT Office Visit Hematology/Oncology [facility] [address] [place] [address] Korin Fisher CRNP [address] [place] [address] 03/21/2025 11:45 AM EDT Telemedicine Urology, [facility] 132 [facility] [place] [address] Vinay Sexton MD [address] [place] [address] Scheduled Procedures Name Priority Associated Diagnoses Date/Ti [...] Additional history exists CKD PHOS USE SMARTSET 23798 06/06/202511/2023, 06/05/2024, 06/04/2024, Additional history exists CKD HGB USE SMARTSET 13320 07/04/202507/04, 07/04/2024, 06/27/2024, Additional history exists DTap/Tdap [...] D LEVEL ONCE IN A LIFETIME-USE SMARTSET# [id number] Completed 03/21/2024, 12/25/2023, 05/27/2021, Additional history exists [...] Discussed due to patient's condition Care Teams Financial Aid Counselor Relationship Specialty Start Date End Date Rhianna Huitron DO [address] [place] [address] PCP - General Family Medicine 07/11/19 documented as of this encounter
--- OUTSIDE RECORDS SUMMARY | 2024-11-18 02:18 | External Medical Summary ---
Author Name Unknown Address Unknown Organization K01:LABORATORY [facility] - [address] [place] [address] Laboratory Report Ordering Provider Test Date Status DESIREE STEPHENS 07/11/2024 08:28:00 Final Observation Date Value Abnormality Reference (Units ) Status Vancomycin, trough 07/11/2024 08:28:00 16.4 1 0.0-20.0 (ug/mL) Final Performing Location LABORATORY [facility] - [address] [place] [address]
--- OUTSIDE RECORDS SUMMARY | 2024-11-18 02:18 | External Medical Summary | Summary of Care ---
Author Name Unknown Organization [facility] Address [address] [place] [address] Phone [phone] Care Team Providers Care Head Insulation Board Saw Operator Name Role Phone Rhianna Huitron DO Primary Care Provider [phone] Reason for Visit * Reason Comments Medication Management Encounter Details Date Type Department Care Team (Late st Contact Info) Description 07/05/2024 9:00 AM [facility] Pharmacy Home [facility], [place] [address], [place] [id number] Billy Galloway Pharmacist Antig [address] [place] [address] Osteomyelitis, unspecified site, unspecified type (FORMERLY [facility])* Allergies Active Allergy Reactions Criticality Noted Date [...] MG PO TBEC 1 TABLET DAILY 0 11/17/20 06 Active Acetaminophen 325 MG Oral Tablet [...] (toPROL XL)Indications:NSV T (nonsustained ventricular tachycardia) ([facility]LY [facility]),Non-ischemic cardiomyopathy ([facility]),Chronic HFrEF (heart failure with reduced ejection fraction) (FORMERLY [facility]) Take 1 Tablet by mouth in the morning and 1 Tablet before bedtime. 180 Tablet 1 05/31/20 24 Active Furosemide 20 MG Oral Tablet (Lasix)Indications :FREDY (acute kidney injury) ([facility]),Hyponatremia Take 1 Tablet by mouth in the morning and 1 Tablet before bedtime. 60 Tablet 5 05/31/20 24 Active Urea 15 GM Oral Packet (Ure-Na)Indication s:FREDY (acute kidney injury) ([facility]),Hyponatremia Take 15 g by mouth in the morning and 15 g before bedtime. 60 Packet 5 05/31/20 24 Active ampicillin-sulbact am IV IJ (AMBULATORY)Indica tions:Osteomyeliti s of symphysis pubis ([facility]) Administer 3 g intravenously every 6 hours. 348 g 06/14/20 24 12/11/2 024 Active Clopidogrel Bisulfate 75 MG Oral [...] glucose 12/16/2005 Macular degeneration 12/02/1999 DISC DIS [id number] documented as of this encounter (statuses as [...] colonoscopy in 5 years ARTHRITIS,RHEUMATOID 07/07/2006 016 [id number] 07/07/200611/01 Overview (11/16/2009): Renamed Per Clinical Trials Billing Project. Pt is a participant in the [employer] (Consortium of Rheumatology Researchers [place]) national data collection study. For further information please call Dr Hari Clark or Julia White, RN, CCRC at [phone] [facility] RESEARCH OTHER*[id number] 07/07/2006 01/28/2010 Overview (11/16/2009): Renamed Per Clinical Trials Billing Project. Pt is a participant in the [employer] (Consortium of [place]ology [place]) national data collection study. For further information please call Dr Hari Clark or Julia White, RN, CCRC at [phone] ADVANCE DIRECTIVE INFORMATION 05/19/2006 06/06/2024 Overview (05/19/2006): [...] Assessment Author Yes 06/01/2024 11:43 PM EDT Baltazar, S ydney, RN documented as of this encounter Mental Status * Because of a physical, mental, or emotional condition, do you have serious difficulty concentrating, remembering, or making decisions? (5 years old or older) Answer Entry Date Author No 06/01/2024 11:43 PM Lucita Harrell RN documented in this encounter Progress Notes * Jennifer Freed RPh - 07/05/2024 1:18 PM EST [facility] OUTPATIENT PHARMACOKINETIC CONSULT [address] [place] [address] Name: Markus Wharton Date: 06/21/2024 Time: 6:49 AM Bacteria being treated: Corynebacterium spp/ streptococcus spp. Source of infection: osteomyelitis Medications being managed: vancomycin Current regimen: Vancomycin 1250 mg IV every 24 hours, self dosing at 9:00am Labs: drawn by Home Health every Thursday Assessment: Analysis of the most recent level(s) using Pathfinder App gives the following patient-specific pharmacokinetic parameters: CL: 2.3 L/hr V: 62 L T1/2: 19.9 hours Using these values, the current regimen of Vancomycin 1250 mg IV every 24 hours is predicted to result in a steady-state trough of 15.7 mg/L and AUC24 of 545 mg/L.hr. At this time we recommend a regimen of 1250 mg IV every 24 hours, which is predicted to result in a steady-state trough of 15.7 mg/Land AUC24 of 545 mg/L.hr. Recommendations: - Vancomycin 1250 mg IV every 24 hours Plan: Continue Vancomycin 1250 mg every 24 hours over 90 minutes Continue Amp/Sulbactam 3 gram q6h over 30 minutes Repeat CBC/diff, CMP, CRP and Vancomycin Level on Home Infusion Pharmacist will review kinetics on 07/12/2024 Additional recommendations: Monitor renal function, fluid status and compliance closely. Expected end date: 07/13/24 Next scheduled Infectious Disease follow up appointment: 07/07/24 Contact info for questions/concerns: [facility] at [phone] Jennifer Freed RPh documented in this encounter Plan of Treatment Upcoming Encounters Date Type Department Care Team (Late st Contact Info) Description 07/07/2024 10:20 AM EST Telemedicine Infectious Disease, [address] [address] Mona Bland MD [address] [place] [address] 07/11/2024 2:00 PM EST Procedure Only Urology, [address] [place] [address] Vinay Sexton MD [address] [place] [address] 07/12/2024 9:00 AM EST Pharmacy Home Infusion, [place] [address] [place] [address] Billy Galloway Pharmacist Anti [address] [place] [address] 07/18/2024 1:20 PM EST Office Visit Rheumatology [address] [place] [address] Mendel Wilson MD [address] [place] [address] [place] [address] 07/21/2024 2:30 PM EST Office Visit Cardiology, [facility] 132 [place] [address] Chiara Meyer CRNP 132 [place] [address] 09/08/2024 3:40 PM EST Office Visit Nephrology, [facility] [address] [place] [address] Bryson Ellis MD 400 [facility] [address] 10/17/2024 10:30 AM EDT Office Visit Cardiology, [facility] 132 [facility] [place] [address] Dmitri Greenfield DO 132 [facility] [place] [address] 10/18/2024 10:00 AM EDT Laboratory Laboratory [facility] [address] [place] [phone] [facility] 200 [facility] [place] [address] 10/25/2024 4:00 PM EDT Office Visit Hematology/Oncology [facility] [address] [place] [phone] Korin Fisher CRNP 400 [place] [address] 03/21/2025 11:45 AM EDT Telemedicine Urology, [facility] 132 [facility] [place] [address] Vinay Sexton MD [address] [place] [address] Scheduled Procedures Name Priority Associated Diagnoses Date/Ti [...] Additional history exists CKD PHOS USE SMARTSET 36829 06/06/202511/2023, 06/05/2024, 06/04/2024, Additional history exists CKD HGB USE SMARTSET 99413 07/04/202507/04, 07/04/2024, 06/27/2024, Additional history exists DTap/Tdap [...] D LEVEL ONCE IN A LIFETIME-USE SMARTSET# 13591 Completed 03/21/2024, 12/25/2023, 05/27/2021, Additional history exists [...] as of this encounter Visit Diagnoses Diagnosis Osteomyelitis, unspecified site, unspecified type (HCC)- Primary documented in this encounter Advance Directives * Full Code (Latest Code Status on File) Date Activated Date Inactivated Comments 06/01/2024 11:10 PM 06/10/2024 6:36 PM This order reflects the patients wishes and were consensually agreed upon. Question Answer Comments Discussion of Advance Direct teo occurred with: Not Discussed due to patient's condition Care Teams Head Insulation Board Saw Operator Relationship Specialty Start Date End Date Rhianna Huitron DO [address] [place] [address] PCP - General Family Medicine 07/11/19 documented as of this encounter
--- OUTSIDE RECORDS SUMMARY | 2024-11-18 02:18 | External Medical Summary | Summary of Care ---
Author Name Unknown Organization [facility] Address [address] [place] [address] Phone [phone] Care Team Providers Care Lining Sewer Name Role Phone Rhianna Huitron DO Primary Care Provider Encounter Details Date Type Department Care Team (Late st Contact Info) Description 07/04/2024 Orders Only [facility] [address] [place] [address] Mary Page MD [address] [place] [address] Allergies Active Allergy Reactions Criticality [...] Packet (Ure-Na)Indication s:FREDY (acute kidney injury) ([facility]),Hyponatremia Take 15 g by mouth in the morning and 15 g before bedtime. 60 Packet 5 05/31/20 24 Active ampicillin-sulbact am IV IJ (AMBULATORY)Indica tions:Osteomyeliti s of symphysis pubis ([facility]) Administer 3 g intravenously every 6 hours. [...] 1250 mg CENTRAL IV Q24H 06/29/2024 4 Active NSS 65 mL with Ampicillin-Sulbact am 3 g INFUSION CENTRAL IV Q6H 07/04/2024 4 Active NSS 65 mL with Ampicillin-Sulbact am 3 g INFUSION CENTRAL IV Q6H 06/28/2024 4 Discontinued documented as of this encounter [...] glucose 12/16/2005 Macular degeneration 12/02/1999 DISC DIS [id number] documented as of this encounter (statuses as [...] colonoscopy in 5 years ARTHRITIS,RHEUMATOID 07/07/2006 016 [id number] 07/07/200611/01 Overview (11/16/2009): Renamed Per Clinical Trials Billing Project. Pt is a participant in the [employer] (Consortium of Rheumatology Researchers [place] national data collection study. For further information please call Dr Hari Clark or Julia White, RN, CCRC at [phone] [facility] RESEARCH OTHER*[id number] 07/07/2006 01/28/2010 Overview (11/16/2009): Renamed Per Clinical Trials Billing Project. Pt is a participant in the [employer] (Consortium of Rheumatology Researchers [place] national data collection study. For further information please call Dr Hari Clark or Julia White, RN, CCRC at [phone] ADVANCE DIRECTIVE INFORMATION 05/19/2006 06/06/2024 Overview (05/19/2006): [...] 07/05/2024 9:00 AM EST Pharmacy Home Infusion, [place] [address] [place] [address] Mgmt, [employer] Pharmacist Antig [address] [place] [address] 07/07/2024 10:20 AM EST Telemedicine Infectious Disease, [address] [address] Mona Bland MD [address] [place], [place] [id number] 07/11/2024 2:00 PM EST Procedure Only Urology, [facility] 132 [facility] [place] [address] Vinay Sexton MD [address] [place] [address] 07/18/2024 1:20 PM EST Office Visit Rheumatology [address] [place] [address] Mendel Wilson MD [address] [place] [address] [place] [address] 07/21/2024 2:30 PM EST Office Visit Cardiology, [facility] 132 [facility] [place] [address] Chiara Meyer CRNP 132 [facility] [place] [address] 09/08/2024 3:40 PM EST Office Visit Nephrology, [facility] [place] [address] [place] [address] Bryson Ellis MD 400 [facility] [place] [address] 10/17/2024 10:30 AM EDT Office Visit Cardiology, [facility] 132 [facility] [place] [address] Dmitri [place] DO 132 [facility] [place] [address] 10/18/2024 10:00 AM EDT Laboratory Laboratory [facility] [address] [place] [phone] [facility] 200 [facility] [place] [address] 10/25/2024 4:00 PM EDT Office Visit Hematology/Oncology [facility] [address] [place] [phone] Korin Fisher CRNP 400 [place] [address] 03/21/2025 11:45 AM EDT Telemedicine Urology, [facility] 132 [facility] [place] [address] Vinay Sexton MD [address] [place] [address] Scheduled Procedures Name Priority Associated Diagnoses Date/Ti [...] 06/13/2024, Additional history exists HbA1c 06/02/2025 06/02/2024, 12/2023, 06/22/2023, Additional history exists CKD PHOS USE SMARTSET 74970 06/06/202511/2023, 06/05/2024, 06/04/2024, Additional history exists CKD HGB USE SMARTSET 15695 06/27/202506/27, 06/27/2024, 06/20/2024, Additional history exists DTap/Tdap [...] D LEVEL ONCE IN A LIFETIME-USE SMARTSET# 44686 Completed 03/21/2024, 12/25/2023, 05/27/2021, Additional history exists [...] Discussed due to patient's condition Care Teams Lining Sewer Relationship Specialty Start Date End Date Rhianna Huitron DO [address] [place] [facility] [place] [address] PCP - General Family Medicine 07/11/19 documented as of this encounter
--- OUTSIDE RECORDS SUMMARY | 2024-11-18 02:18 | External Medical Summary | Summary of Care ---
Author Name Unknown Organization [facility] Address [address] [facility] [address] Phone [phone] Care Team Providers Care Business Support Name Role Phone Rhianna Huitron DO Primary Care Provider Reason for Visit * Reason Onset Date Comments FYI 04/05/2024 Encounter Details Date Type Department Care Team (Late st Contact Info) Description 04/05/2024 Telephone Urology Samy Bhatt [address] [place] [address] Vinay Sexton MD [address] [place] [address] FYI Allergies Active Allergy Reactions Criticality Noted [...] Tablet 3 4 Active Additional Information Patient not taking.Reported on 06/02/2024 Folic Acid 1 MG Oral TabletIndicatio ns:Arthritis, rheumatoid (HCC) TAKE 1 TABLET BY MOUTH EVERY DAY IN THE MORNING 90 Tablet 3 4 Active Tamsulosin HCl 0.4 MG Oral Capsule (Flomax) TAKE 1 CAPSULE BY MOUTH EVERY MORNING 90 Capsule 3 4 Active Losartan Potassium 25 MG Oral Tablet (Cozaar) One half tablet by mouth daily 45 Tablet 3 4 Active documented as of this encounter (statuses [...] glucose 12/16/2005 Macular degeneration 12/02/1999 DISC DIS [id number] documented as of this encounter (statuses as [...] colonoscopy in 5 years ARTHRITIS,RHEUMATOID 07/07/2006 016 [id number] 07/07/200611/01 Overview (11/16/2009): Renamed Per Clinical Trials Billing Project. Pt is a participant in the [employer] (Consortium of Rhe[employer]ology Researchers [place] national data collection study. For further information please call Dr Hari Clark or Julia White, RN, CCRC at [phone] [facility]EARCH OTHER*[id number] 07/07/2006 01/28/2010 Overview (11/16/2009): Renamed Per Clinical Trials Billing Project. Pt is a participant in the [employer] (Consortium of Rheumatology [place] national data collection study. For further information please call Dr Hari Clark or Julia White, RN, CCRC at [phone] ADVANCE DIRECTIVE INFORMATION 05/19/2006 06/06/2024 Overview (05/19/2006): [...] Telephone Encounter - Imani Rizvi LPN - 04/05/2024 11:06 AM EDT Records being scanned into the chart when received. Urology consult available in media. * Telephone Encounter - Shayna Bucio OSA - 04/05/2024 10:51 AM EDT Pt went in to hospital ([facility]) 03/31/24 due to UTI infection just wanted to let know he's still there. documented in this encounter Plan of Treatment Upcoming Encounters Date Type Department Care Team (Late st Contact Info) Description 07/07/2024 10:20 AM EST Telemedicine Infectious Disease, [address] [address] Mona Bland MD [address] [place] [address] 07/11/2024 2:00 PM EST Procedure Only Urology, [facility] 132 [place] [address] Vinay Sexton MD [address] [place] [address] 07/12/2024 9:00 AM EST Pharmacy Home Infusion, [place] [address] [place] [address] Nilesh [employer] Pharmacist Antig [address] [place] [address] 07/18/2024 1:20 PM EST Office Visit Rheumatology [address] [place] [address] Mendel Wilson MD [address] [place] [address] [place] [address] 07/21/2024 2:30 PM EST Office Visit Cardiology, [facility] [address] [facility] [address] Chiara Meyer CRNP 132 [place] [address] 09/08/2024 3:40 PM EST Office Visit Nephrology, [address] [address] Bryson Ellis MD [address] [place] [phone] 10/17/2024 10:30 AM EDT Office Visit Cardiology, [facility] 132 [facility] [place] [address] Dmitri [place], 132 [facility] [place] [phone] 10/18/2024 10:00 AM EDT Laboratory Laboratory [facility] [address] [place] [phone] Faby [facility] [address] [facility] [place] [address] 10/25/2024 4:00 PM EDT Office Visit Hematology/Oncology [facility] [address] [place] [address] Korin Fisher CRNP 400 [facility] [place] [address] 03/21/2025 11:45 AM EDT Telemedicine Urology, [facility] [address] [facility] [place] [address] Vinay Sexton MD 27 [facility] [place] [phone] Scheduled Procedures Name Priority Associated Diagnoses Date/Ti [...] 06/20/2024, Additional history exists HbA1c 06/02/2025 06/02/2024, 040 12/2023, 06/22/2023, Additional history exists CKD PHOS USE SMARTSET 24753 06/06/20250 11/2023, 06/05/2024, 06/04/2024, Additional history exists CKD HGB USE SMARTSET 47848 07/04/202507/04, 07/04/2024, 06/27/2024, Additional history exists DTap/Tdap [...] D LEVEL ONCE IN A LIFETIME-USE SMARTSET# 75507 Completed 03/21/2024, 12/25/2023, 05/27/2021, Additional history exists [...] Discussed due to patient's condition Care Teams Business Support Relationship Specialty Start Date End Date Rhianna Huitron DO [address] [place] [address] PCP - General Family Medicine 07/11/19 documented as of this encounter
--- OUTSIDE RECORDS SUMMARY | 2024-11-18 02:18 | External Medical Summary ---
Author Name Unknown Address Unknown Organization K01:LABORAT[facility] - [address] [facility] [address] Laboratory Report Ordering Provider Test Date Status DESIREE STEPHENS 07/11/2024 08:28:00 Final Observation Date Value Abnormality Reference (Units ) Status SYNC LEUKOCYTES IN BLOOD BY AUTOMATED COUNT 07/11/2024 08:28:00 7.36 4.00-10.80 (K/uL) Final Segs 07/11/2024 08:28:00 79.8 Above high normal 40.0-75.0 (%) Final Lymphs % 07/11/2024 08:28:00 7.7 Below low normal 18.0-42.0 (%) Final Monos 07/11/2024 08:28:00 7.5 1.0-11.0 (%) Final Eosinophils 07/11/2024 08:28:00 3.8 0.0-6.0 (%) Final Basos 07/11/2024 08:28:00 0.5 0.0-2.0 (%) Final Immature Granulocyte, Percent 07/11/2024 08:28:00 0.7 0.0-2.0 (%) Final Absolute Segs 07/11/2024 08:28:00 5.87 1.80-7.70 (K/uL) Final Lymphs, absolute 07/11/2024 08:28:00 0.57 Below low normal 1.00-4.80 (K/ul) Final Monos, Abs 07/11/2024 08:28:00 0.55 0.00-1.10 (K/uL) Final Eos, Abs 07/11/2024 08:28:00 0.28 0.00-0.70 (K/uL) Final Basos, Abs 07/11/2024 08:28:00 0.04 0.00-0.20 (K/uL) Final Immature Granulocytes, Number 07/11/2024 08:28:00 0.05 0.00-0.20 (K/uL) Final Performing Location LABORATORY [facility] - [facility] [address] [facility] [address]
--- OUTSIDE RECORDS SUMMARY | 2024-11-18 02:18 | External Medical Summary | Summary of Care ---
Author Name Unknown Organization [facility] Address [address] [place] [address] Phone [phone] Care Team Providers Care Business Banker Name Role Phone Rhianna Huitron DO Primary Care Provider [phone] Reason for Visit * Reason Comments Medication Management Encounter Details Date Type Department Care Team (Late st Contact Info) Description 07/05/2024 9:00 AM [facility] Pharmacy Home [facility] [place] [address], [place] [phone] Billy Galloway Pharmacist Antig [address] [place] [address] Osteomyelitis, unspecified site, unspecified type ([facility])* Allergies Active Allergy Reactions Criticality Noted Date [...] Hour (toPROL XL)Indications:NSV T (nonsustained ventricular tachycardia) ([facility]),Non-ischemic cardiomyopathy ([facility]),Chronic HFrEF (heart failure with reduced ejection fraction) ([facility]) Take 1 Tablet by mouth in the morning and 1 Tablet before bedtime. 180 Tablet 1 05/31/20 24 Active Furosemide 20 MG Oral Tablet (Lasix)Indications :FREDY (acute kidney injury) ([facility]),Hyponatremia Take 1 Tablet by mouth in the morning and 1 Tablet before bedtime. 60 Tablet 5 05/31/20 24 Active Urea 15 GM Oral Packet (Ure-Na)Indication s:FREDY (acute kidney injury) ([facility]),Hyponatremia Take 15 g by mouth in the morning and 15 g before bedtime. 60 Packet 5 05/31/20 24 Active ampicillin-sulbact am IV IJ (AMBULATORY)Indica tions:Osteomyeliti s of symphysis pubis ([facility]) Administer 3 g intravenously every 6 hours. [...] glucose 12/16/2005 Macular degeneration 12/02/1999 DISC DIS [id number] documented as of this encounter (statuses as [...] colonoscopy in 5 years ARTHRITIS,RHEUMATOID 07/07/2006 016 [id number] 07/07/200611/01 Overview (11/16/2009): Renamed Per Clinical Trials Billing Project. Pt is a participant in the [employer] (Consortium of Rheumatology Researchers [place]) national data collection study. For further information please call Dr Hari Clark or Julia White, RN, CCRC at [phone] [facility] RESEARCH OTHER*[id number] 07/07/2006 01/28/2010 Overview (11/16/2009): Renamed Per Clinical Trials Billing Project. Pt is a participant in the [employer] ([employer]ortium of [employer] [place]) national data collection study. For further information please call Dr Hari Clark or Julia White, RN, CCRC at [phone] ADVANCE DIRECTIVE INFORMATION 05/19/2006 06/06/2024 Overview (05/19/2006): [...] Freed RPh - 07/05/2024 1:18 PM EST [facility]ARM[facility] OUTPATIENT PHARMACOKINETIC CONSULT [address] [place] [address] Name: Markus Wharton Date: 06/21/2024 Time: 6:49 AM Bacteria being treated: Corynebacterium spp/ streptococcus spp. Source of infection: osteomyelitis Medications being managed: vancomycin Current regimen: Vancomycin 1250 mg IV every 24 hours, self dosing at 9:00am Labs: drawn by Home Health every Thursday Assessment: Analysis of the most recent level(s) using [employer] gives the following patient-specific pharmacokinetic parameters: CL: [...] up appointment: 07/07/24 Contact info for questions/concerns: [facility] at [phone] Jennifer Freed RPh documented in this encounter Plan of Treatment Upcoming Encounters Date Type Department Care Team (Late st Contact Info) Description 07/07/2024 10:20 AM EST Telemedicine Infectious Disease, [address] [phone] Mona Bland MD [address] [place] [address] 07/11/2024 2:00 PM EST Procedure Only Urology, [address] [place] [address] Vinay Sexton MD [address] [place] [address] 07/12/2024 9:00 AM EST Pharmacy [facility], [place] [address] [place] [address] Billy Galloway Pharmacist Anti [address] [place] [address] 07/18/2024 1:20 PM EST Office Visit Rheumatology [address] [place] [address] Mendel Wilson MD [address] [place] [address] [place] [address] 07/21/2024 2:30 PM EST Office Visit Cardiology, [facility] [address] [place] [address] Chiara Meyer CRNP [address] [place] [address] 09/08/2024 3:40 PM EST Office Visit Nephrology, [facility] [address] [place] [address] Bryson Ellis MD 400 [facility] [place] [address] 10/17/2024 10:30 AM EDT Office Visit Cardiology, [facility] 132 [facility] [place] [address] Dmitri Greenfield DO 132 [facility] [place] [address] 10/18/2024 10:00 AM EDT Laboratory Laboratory [facility] [address] [place] [phone] [facility] 200 [facility] [place] [address] 10/25/2024 4:00 PM EDT Office Visit Hematology/Oncology [facility] [address] [place] [phone] Korin Fisher CRNP 400 [facility] [place] [address] 03/21/2025 11:45 AM EDT Telemedicine Urology, [facility] [address] [facility] [place] [address] Vinay Sexton MD [address] [place] [address] Scheduled Procedures Name Priority Associated Diagnoses Date/Ti [...] Additional history exists CKD PHOS USE SMARTSET 61152 06/06/202511/2023, 06/05/2024, 06/04/2024, Additional history exists CKD HGB USE SMARTSET 44948 07/04/202507/04, 07/04/2024, 06/27/2024, Additional history exists DTap/Tdap [...] D LEVEL ONCE IN A LIFETIME-USE SMARTSET# 11810 Completed 03/21/2024, 12/25/2023, 05/27/2021, Additional history exists [...] due to patient's condition Care Teams Business Banker Relationship Specialty Start Date End Date Rhianna Huitron DO [address] [place] [address] PCP - General Family Medicine 07/11/19 documented as of this encounter
--- OUTSIDE RECORDS SUMMARY | 2024-11-18 02:19 | External Medical Summary ---
Author Name Unknown Address Unknown Organization K01:[facility] [address] [address] Laboratory Report Ordering Provider Test Date Status DESIREE STEPHENS 07/04/2024 07:45:00 Final Observation Date Value Abnormality Reference (Units ) Status WBC, Total 07/04/2024 07:45:00 8.34 4.00-10.80 (K/uL) Final RBC 07/04/2024 07:45:00 3.53 4.50-5.25 (M/uL) Final Hemoglobin 07/04/2024 07:45:00 9.4 Below low normal 14.0-16.8 (g/dL) Final HCT 07/04/2024 07:45:00 30.5 Below low normal 40.0-48.4 (%) Final MCV 07/04/2024 07:45:00 86.4 82.0-99.5 (fL) Final MCH 07/04/2024 07:45:00 26.6 27.0-34.0 (pg) Final MCHC 07/04/2024 07:45:00 30.8 32.0-36.0 (g/dL) Final RDW 07/04/2024 07:45:00 17.7 11.5-15.5 (%) Final Platelets 07/04/2024 07:45:00 266 140-400 (K/uL) Final MPV 07/04/2024 07:45:00 10.3 6.6-11.1 (fL) Final Nucleated erythrocytes/100 leukocytes [Ratio] in Blood by Automated count 07/04/2024 07:45:00 0 <=0 (/100 WBCs) Final Performing Location [facility] [facility] [address]
--- OUTSIDE RECORDS SUMMARY | 2024-11-18 02:19 | External Medical Summary | Summary of Care ---
Author Name Unknown Organization [facility] Address [address] [place] [address] Phone [phone] Care Team Providers Care Immigration Attorney Name Role Phone Rhianna Huitron DO Primary Care Provider [phone] Reason for Visit * Reason Comments Medication Management Encounter Details Date Type Department Care Team (Late st Contact Info) Description 06/27/2024 10:00 AM [facility] Pharmacy Home [facility] [place] [address], [place] [phone] Billy Galloway Pharmacist Antig [address] [place], [place] [phone] Allergies Active Allergy Reactions Criticality Noted Date Comments Brent Inhibitors Cough Low 11/26/2017 Alendronate Sodium Muscle pain 04/11/2019 Heartburn, constipation, joint pain Misoprostol Diarrhea 08/08/2003 Niacin Er (Antihyperlipidemic) 11/26/2010 Gas, hot flashes Pollen 01/01/2018 Watery eyes, sneezing Pravastatin 02/26/2007 Upset stomach, all .Statins Simvastatin 02/26/2007 Upset stomach documented as of this encounter (statuses as of 06/28/2024) Medications ASPIR-81 81 MG PO TBEC 1 [...] ventricular tachycardia) ([facility]),Non-ischemic cardiomyopathy ([facility]),Chronic HFrEF (heart failure [...] Oral Packet (Ure-Na)Indication s:FREDY (acute kidney injury) ([facility]),Hyponatremia Take 15 g by mouth in the morning and 15 g before bedtime. 60 Packet 5 05/31/20 24 Active ampicillin-sulbact am IV IJ (AMBULATORY)Indica tions:Osteomyeliti s of symphysis pubis ([facility]) Administer 3 g intravenously every [...] mg INFUSION 1250 mg CENTRAL IV Q24H 06/22/2024 4 Discontinued documented as of this encounter (statuses as of 06/28/2024) Active Problems Problem Noted Date Diagnosed Date [...] glucose 12/16/2005 Macular degeneration 12/02/1999 DISC DIS [id number] documented as of this encounter (statuses as of 06/28/2024) Resolved Problems Problem Noted Date Diagnosed Date [...] colonoscopy in 5 years ARTHRITIS,RHEUMATOID 07/07/2006 016 [id number] 07/07/200611/01 Overview (11/16/2009): Renamed Per Clinical Trials Billing Project. Pt is a participant in the [employer] (Consortium of Rheumatology Researchers [place] national data collection study. For further information please call Dr Hari Clark or Julia White, RN, CCRC at [phone] [facility] RESEARCH OTHER*[id number] 07/07/2006 01/28/2010 Overview (11/16/2009): Renamed Per Clinical Trials Billing Project. Pt is a participant in the [employer] (Consortium of Rheumatology [place] national data collection study. For further information please call Dr Hari Clark or Julia White, RN, CCRC at [phone] ADVANCE DIRECTIVE INFORMATION 05/19/2006 06/06/2024 Overview (05/19/2006): Yes-advised to bring copy in to be scanned into EMR. Hearing loss 12/02/1999 03/29/2013 documented as of this encounter (statuses as of 06/28/2024) Immunizations Name Administration Dates Next Due COVID-19 [...] documented in this encounter Progress Notes * Maru Mota RPh - 06/28/2024 9:43 AM EST [facility] OUTPATIENT PHARMACOKINETIC CONSULT [address] [place] [address] Name: Markus Wharton Date: 06/21/2024 Time: 6:49 AM Bacteria being treated: Corynebacterium spp/ streptococcus spp. Source of infection: osteomyelitis Medications being managed: vancomycin Current regimen: Vancomycin 1250 mg IV every 24 hours, self dosing at 9:00am Labs: drawn by Home Health every Thursday [employer] Summary: Using these values, the current regimen of Vancomycin 1250 mg IV every 24 hours is predicted to result in a steady-state trough of 14.4 mg/L and AUC24 of 512 mg/L.hr. At this time we recommend a regimen of 1250 mg IV every 24 hours, which is predicted to result in a steady-state trough of 14.4 mg/Land AUC24 of 512 mg/L.hr. Plan: Continue Vancomycin 1250 mg every 24 hours over 90 minutes Continue Amp/Sulbactam 3 gram q6h over 30 minutes Repeat CBC/diff, CMP, CRP and Vancomycin Level on 07/04/2024 Home Infusion Pharmacist will review kinetics on 07/05/2024 Additional recommendations: Monitor renal function, fluid status and compliance closely. Expected end date: 07/13/24 Next scheduled Infectious Disease follow up appointment: 07/07/24 Contact info for questions/concerns: [facility] at [phone] Maru Mota PharmD, RPh Coordinator, Acute Pharmacy Services [facility] 06/28/2024, 9:43 AM documented in this encounter Plan of Treatment Upcoming Encounters Date Type Department Care Team (Late st Contact Info) Description 07/05/2024 9:00 AM EST Pharmacy Home Infusion, [place] [address] [place] [address] Billy Galloway Pharmacist Antig [address] [place] [address] 07/07/2024 10:20 AM EST Telemedicine Infectious Disease, [address] [phone] Mona Bland MD [address] [place], [place] [phone] 07/11/2024 2:00 PM EST Procedure Only Urology, [facility] [address] [place] [address] Vinay Sexton MD [address] [place] [address] 07/18/2024 1:20 PM EST Office Visit Rheumatology [address] [address] Mendel Wilson MD [address] [place] [address] 07/21/2024 2:30 PM EST Office Visit Cardiology, [facility] 132 [place] [address] Chiara Meyer CRNP 132 [place] [address] 09/08/2024 3:40 PM EST Office Visit Nephrology, [address] [phone] Bryson Ellis MD [address] [place] [phone] 10/17/2024 10:30 AM EDT Office Visit Cardiology, [facility] [address] [place] [address] Dmitri Greenfield, [address] [place] [address] 10/18/2024 10:00 AM EDT Laboratory Laboratory [facility] [address] [place] [phone] [place], [facility] [address] [place] [address] 10/25/2024 4:00 PM EDT Office Visit Hematology/Oncology [facility] [address] [place] [phone] Korin Fisher CRNP 400 [facility] [place] [address] 03/21/2025 11:45 AM EDT Telemedicine Urology, [facility] [place] [address] Vinay Sexton MD [address] [place] [address] Scheduled Procedures Name Priority Associated Diagnoses Date/Ti [...] 06/13/2024, Additional history exists HbA1c 06/02/2025 06/02/2024, 040 12/2023, 06/22/2023, Additional history exists CKD PHOS USE SMARTSET 04967 06/06/20250 11/2023, 06/05/2024, 06/04/2024, Additional history exists CKD HGB USE SMARTSET 72709 06/27/202506/27, 06/27/2024, 06/20/2024, Additional history exists DTap/Tdap [...] D LEVEL ONCE IN A LIFETIME-USE SMARTSET# 60954 Completed 03/21/2024, 12/25/2023, 05/27/2021, Additional history exists [...] Discussed due to patient's condition Care Teams Immigration Attorney Relationship Specialty Start Date End Date Rhianna Hiutron DO [address] [facility] [place] [address] PCP - General Family Medicine 07/11/19 documented as of this encounter
--- OUTSIDE RECORDS SUMMARY | 2024-11-18 02:19 | External Medical Summary | Summary of Care ---
Author Name Unknown Organization [facility] Address [address] [facility] [address] Phone [phone] Care Team Providers Care Goat Herder Name Role Phone Rhianna Huitron DO Primary Care Provider [phone] Encounter Details Date Type Department Care Team (Late st Contact Info) Description 06/27/2024 2:30 PM EST Telemedicine Hematology/Oncology [facility] [address] [place] [address] Korin Fisher CRNP [address] [facility] [place] [address] Prostate cancer (HCC)*; Anemia, unspecified type Allergies Active Allergy Reactions Criticality Noted Date Comments Brent Inhibitors Cough Low 11/26/2017 Alendronate Sodium Muscle pain 04/11/2019 Heartburn, constipation, joint pain Misoprostol Diarrhea 08/08/2003 Niacin Er (Antihyperlipidemic) 11/26/2010 Gas, hot flashes Pollen 01/01/2018 Watery eyes, sneezing Pravastatin 02/26/2007 Upset stomach, all .Statins Simvastatin 02/26/2007 Upset stomach documented as of this encounter (statuses as of 07/03/2024) Medications ASPIR-81 81 MG PO TBEC 1 [...] Active Urea 15 GM Oral Packet (Ure-Na)Indication s:FREYD (acute kidney injury) ([facility]),Hyponatremia Take 15 g by mouth in the morning and 15 g before bedtime. 60 Packet 5 05/31/20 24 Active ampicillin-sulbact am IV IJ (AMBULATORY)Indica tions:Osteomyeliti s of symphysis pubis ([facility]) Administer 3 g intravenously every 6 hours. 348 g 06/14/20 24 Active Clopidogrel Bisulfate 75 MG Oral [...] as of this encounter (statuses as of 07/03/2024) Active Problems Problem Noted Date Diagnosed Date [...] glucose 12/16/2005 Macular degeneration 12/02/1999 DISC DIS [id number] documented as of this encounter (statuses as of 07/03/2024) Resolved Problems Problem Noted Date Diagnosed Date [...] colonoscopy in 5 years ARTHRITIS,RHEUMATOID 07/07/2006 016 [id number] 07/07/200611/01 Overview (11/16/2009): Renamed Per Clinical Trials Billing Project. Pt is a participant in the [employer] (Consortium of Rheumatology Researchers [place]) national data collection study. For further information please call Dr Hari Clark or Julia White, RN, CCRC at [phone] [facility] RESEARCH OTHER*[id number] 07/07/2006 01/28/2010 Overview (11/16/2009): Renamed Per Clinical Trials Billing Project. Pt is a participant in the [employer] (Consortium of Rheumatology Researchers [place]) national data collection study. For further information please call Dr Hari Clark or Julia White, RN, CCRC at [phone] ADVANCE DIRECTIVE INFORMATION 05/19/2006 06/06/2024 Overview (05/19/2006): Yes-advised to bring copy in to be scanned into EMR. Hearing loss 12/02/1999 03/29/2013 documented as of this encounter (statuses as of 07/03/2024) Immunizations Name Administration Dates Next Due COVID-19 mRNA, LNP-s, No Pre serve, 2-Dose Series ([employer]) 06/14/2021,10/10/2020,09/12/2020 COVID-19, LNP-s, No Preserve , Yousuf-sucrose, [...] Entry Date Author No 06/01/2024 11:43 PM ERVINT Lucita Ledesma RN documented in this encounter Progress Notes * Korin Fisher CRNP - 06/27/2024 1:52 PM EST Hematology/Oncology Telephone Note [facility] Name: Markus Wharton Date: 06/27/2024 CHIEF COMPLAINT: Markus Wharton is a 79 year old male patient of Dr. Patrice Puente completing a scheduled follow-up telephone visit. Oncology history from patient chart, confirmed with patient. HEMATOLOGY/ONCOLOGY DIAGNOSIS: Prostate cancer, Arlington score 4+5, right iliac chain lymph node measuring about 2 cm in the imaging study. PSA was around 8.49 in December 2022 DATE OF DIAGNOSIS: 03/16/23 TREATMENT HISTORY: He completed radiation treatment at [facility] on 06/08/2023. -could not tolerate Casodex, he took It for about 1 week before that but he stopped because of somedizziness and some noticed some blood in the stool which may not be related to that. Zytiga and prednisone combination. (Started on 04/27/2024 - 09/01/2023) -discontinued during admission at [facility] for acute [place], post stent placement. CURRENT TREATMENT: Received 1st treatment with Lupron (30 mg ) on 04/08/2023. - will continue Lupron every 4 monthly under the guidance of Dr. Sexton. DIAGNOSTIC WORKUP: - PSA--> 5.1 ( 04/10/2022)--> 8.49 (12/10/2022). Biopsy from the prostate gland on 03/16/2023 ) --> prostatic adenocarcinoma Arlington score 4+5, all 15 cores positive for [...] 0.19 0.10 0.06 0.05 0.04 Interval History: [facility] HOSPITAL COURSE 06/01/24 - 06/10/24 (focused): Maruks Wharton is a 79-year-old male with a past medical history of CAD, HFrEF (EF 35 - 40%), hypertension, metastatic prostate cancer (status post palliative radiation and Lupron with chronic indwelling Ingram catheter), BPH, RA, prediabetes, CKD 3A, hyperlipidemia, [...] Puboprostatic Fistula: Blood and urine cx from [facility] NGTD. U cx (05/31) OSH: Streptococcus dysgalactiae, C striatum/simulans sp U cx (06/01) OSH: 3 types of organisms Evaluated by Urology. No interventions, maintain Ingram catheter and follow up as an outpatient ID following - plan for ceftriaxone/vancomycin till 07/13 with weekly labs. Follow up finalized cultures from IR aspirate. PICC line placed CAD and [place] s/p AFSANEH to LAD in 08/2023 Chronic HFrEF (EF 35-40%) HTN/HLD: Euvolemic on exam at the time of discharge. Significantly elevated trops on admission, felt to be demand related to shock on admission. Had no symptoms to suggest ACS. TTE does have further reduced EF and WMA. Continue ASSEMBLER TRIM aspirin & plavix and other ASSEMBLER TRIM cardiac medications as below and should follow up with his regular financial analyst. He was evaluated by Cardiology while at [facility] Reported AFib in the ER at [facility] Strips are not available. Per Cardiology note at [facility], seems to have been sinus tachycardia. There has been no episode of AFib at [facility]. He is being discharged with a Zio patch forfurther evaluation. To follow up with his financial analyst Acute on chronic hyponatremia, SIADH: Sodium remained stable and 134 at the time of discharge Rheumatoid arthritis: ASSEMBLER TRIM methotrexate being held in the setting of active infection. This was discussed with his regularrheumatologist as well. To follow up with his activity therapy teacher for resumption. Stage III Ulcer, Gluteal Folds: [...] provider at time of dictation. 2. Malpositioned Ingram. The Ingram balloon projects over the apex of the prostate and a portion of the catheter extends into the symphysis pubis. 3. Distended bladder with moderate bilateral hydroureteronephrosis which has developed since prior CT. 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 Receiving outpatient IV antibiotics through PICC line until 07/13. Following with ID. Lab results 06/27/24 reviewed: Hgb decreased at 9.4 (baseline around 11) -will add on ferritin, iron screen, vitamin b12 and folic acid. Likely an anemia of inflammation. CMP unremarkable PSA stable at 0.03 Will continue to hold Zytiga and prednisone at this time, he will continue to have Lupron therapy under the guidance of Dr. Sexton. Will consider for restarting Zytiga and prednisone if he has significant rise in the PSA level in the future. After connecting to the patient via telephone, the patient was identified by name and date of . Patient was then informed that this was a telephone call only visit. The patient agreed to participate. Visit Disposition: Routine follow-up in 4 months with provider with cbc/diff, cmp and psa Total call duration was 13 minutes. INTERVAL HISTORY: Markus Wharton is a 79 year old male with a history as outlined above. Being contacted for a telephone follow-up visit today. Patient feeling improved today though remains very weak and tired. Receiving IV antibiotics through his PICC line by his daughter. Has appointment with Urology tomorrow to have Ingram catheter checked. Trying to put weight back on. Drinking an Ensure daily. Denies pain. Taking laxative to help bowels move. Is worried about his anemia. Review of patient's allergies indicates: Allergen Reactions [...] Frequency Provider Last Rate Last Admin NSS 250 mL with Vancomycin 1,250 mg INFUSION 1,250 mg Central IV Q24H NSS 65 mL with Ampicillin-Sulbactam 3 g INFUSION Central IV Q6H Past Medical History: Diagnosis Date Arthritis, rheumatoid (HCC) Benign neoplasm of colon 05/10/07 adenomatous repeat colonoscopy in 5 years Degeneration of lumbosacral intervertebral disc Elevated blood pressure, situational Fuchs' corneal dystrophy 10/19/2018 Impaired fasting glucose Macular degeneration Morbid (severe) obesity due to excess calories (HCC) 08/19/2017 REVIEW OF SYSTEMS: see interval history; otherwise WNL OBJECTIVE: Vital signs not available for review at time of call Wt Readings from Last 5 Encounters: 06/10/24 131.1 kg (289 lb) 12/25/23 (!) 137.9 kg (304 lb) 12/18/23 135.6 kg (299 lb) 12/08/23 134.2 kg (295 lb 12.8 oz) 11/06/23 136.1 kg (300 lb) PHYSICAL EXAM: N/A, telephone visit LABS: Results for orders placed or performed in visit on 06/20/24 COMPREHENSIVE METABOLIC PANEL Result Value Ref Range BUN 25 (H) 6 - 20 mg/dL CREATININE 1.1 0.6 - 1.2 mg/dL EGFR 72 >=60 mL/min SODIUM 133 (L) 135 - 146 mmol/L POTASSIUM 4.1 3.5 - 5.1 mmol/L CHLORIDE 92 (L) 98 - 107 mmol/L CO2 27 22 - 32 mmol/L ANION GAP 14 7 - 15 mmol/L GLUCOSE 112 70 - 120 mg/dL Albumin 3.3 (L) 3.8 - 5.0 g/dL AST 12 10 - 50 U/L Alkaline Phosphatase 80 35 - 130 U/L Bilirubin, Total 0.3 <=1.2 mg/dL CALCIUM 9.0 8.4 - 10.2 mg/dL Protein 6.5 6.0 - 8.3 g/dL ALT 7 (L) 10 - 50 U/L VANCOMYCIN TROUGH Result Value Ref Range Vancomycin Trough 20.6 (H) 10.0 - 20.0 ug/mL CRP (INFLAMMATORY MARKER) Result Value Ref Range CRP (Inflammatory Marker) 69 (H) <=5 mg/L CBC Result Value Ref Range WBC 7.68 4.00 - 10.80 K/uL RBC 3.67 4.50 - 5.25 M/uL HGB 9.7 (L) 14.0 - 16.8 g/dL HCT 32.3 (L) 40.0 - 48.4 % MCV 88.0 82.0 - 99.5 fL MCH 26.4 27.0 - 34.0 pg MCHC 30.0 32.0 - 36.0 g/dL RDW 18.4 11.5 - 15.5 % PLT 320 140 - 400 K/uL MPV 10.5 6.6 - 11.1 fL nRBCs 0 <=0 /100 WBCs DIFFERENTIAL, AUTOMATED Result Value Ref Range WBC 7.68 4.00 - 10.80 K/uL Neutrophils % 75.5 (H) 40.0 - 75.0 % Lymphocytes % 9.6 (L) 18.0 - 42.0 % Monocytes % 7.2 1.0 - 11.0 % Eosinophils % 6.1 (H) 0.0 - 6.0 % Basophils % 0.9 0.0 - 2.0 % Immature Granulocytes % 0.7 0.0 - 2.0 % Absolute Neutrophils 5.80 1.80 - 7.70 K/uL Absolute Lymphocytes 0.74 (L) 1.00 - 4.80 K/ul Absolute Monocytes 0.55 0.00 - 1.10 K/uL Absolute Eosinophils 0.47 0.00 - 0.70 K/uL Absolute Basophils 0.07 0.00 - 0.20 K/uL Absolute Immature Granulocytes 0.05 0.00 - 0.20 K/uL *Note: Due to [...] 07/05/2024 9:00 AM EST [facility], [place] [address] [place] [address] Billy Galloway Pharmacist Ant[address] [place] [address] 07/07/2024 10:20 AM EST Telemedicine Infectious Disease, [address] [phone] Mona Bland MD [address] [place], [place] [id number] 07/11/2024 2:00 PM EST Procedure Only Urology, [facility] [address] [facility] [place] [address] Vinay Sexton MD [address] [place] [address] 07/18/2024 1:20 PM EST Office Visit Rheumatology [address] [address] Mendel Wilson MD [address] [place] [address] 07/21/2024 2:30 PM EST Office Visit Cardiology, [facility] [address] [facility] [place] [address] Chiara Meyer CRNP 132 [place] [address] 09/08/2024 3:40 PM EST Office Visit Nephrology, [address] [phone] Bryson Ellis MD [address] [place] [phone] 10/17/2024 10:30 AM EDT Office Visit Cardiology, [facility] [address] [facility] [place] [address] Dmitri Greenfield, [address] [facility] [place] [address] 10/18/2024 10:00 AM EDT Laboratory Laboratory [facility] [address] [place] [phone] Faby, Lab [facility] [address] [facility] [place] [address] 10/25/2024 4:00 PM EDT Office Visit Hematology/Oncology [facility] [address] [place] [phone] Korin Fisher CRNP 400 [place] [address] 03/21/2025 11:45 AM EDT Telemedicine Urology, [facility] [address] [facility] [place] [address] Vinay Sexton MD 27 [facility] [address] Scheduled Orders Name Type Priority Associated Diagnoses Orde r Schedule CBC WITH WBC DIFFERENTIAL Lab STAT Prostate cancer (HCC) Anemia, unspecified type Every 3 Months for 4 Occurrences starting 07/03/2024 until 07/31/2025 COMPREHENSIVE METABOLIC PANEL Lab STAT Prostate cancer (HCC) Anemia, unspecified type Every 3 Months for 4 Occurrences starting 07/03/2024 until 07/31/2025 PSA Lab STAT Prostate cancer (HCC) Anemia, unspecified type Every 3 Months for 4 Occurrences starting 07/03/2024 until 07/31/2025 Scheduled Procedures Name Priority Associated Diagnoses Date/Ti [...] Additional history exists CKD PHOS USE SMARTSET 04236 06/06/202511/2023, 06/05/2024, 06/04/2024, Additional history exists CKD HGB USE SMARTSET 87899 06/27/202506/27, 06/27/2024, 06/20/2024, Additional history exists DTap/Tdap [...] D LEVEL ONCE IN A LIFETIME-USE SMARTSET# 48481 Completed 03/21/2024, 12/25/2023, 05/27/2021, Additional history exists [...] Procedure Name Priority Date/Time Associated Diagnosis Comments FOLIC ACID Routine 06/27/2024 1:05 PM EST Prostate cancer (HCC) Anemia, unspecified type IRON SCREEN, INCLUDING TIBC Routine 06/27/2024 1:05 PM EST Prostate cancer (HCC) Anemia, unspecified type FERRITIN Routine 06/27/2024 1:05 PM EST Prostate cancer (HCC) Anemia, unspecified type VITAMIN B12 Routine 06/27/2024 1:05 PM EST Prostate cancer (HCC) Anemia, unspecified type documented in this encounter Results * FOLIC ACID (06/27/2024 1:05 PM EST) Folic Acid >20.0 >4.5 ng/mL 06/28/2024 3:50 AM EST LABORATORY [facility] Blood Venous blood specimen / Unknown Venipuncture / Unknown 06/27/2024 1:05 PM EST 06/27/2024 1:05 PM EST us Korin ALY LAB BLOOD ORDERABLES Fi nal Result LABORATORY [address] [address] * VITAMIN B12 (06/27/2024 1:05 PM EST) Vitamin B12 540 232 - 1,245 pg/mL 06/28/2024 3:50 AM EST LABORATORY [facility] Blood Venous blood specimen / Unknown Venipuncture / Unknown 06/27/2024 1:05 PM EST 06/27/2024 1:05 PM EST Korin ALY LAB BLOOD ORDERABLES Fi nal Result LABORATORY [facility] [address] [place] [address] * (ABNORMAL) IRON SCREEN, INCLUDING TIBC (06/27/2024 1:05 PM EST) Iron 26(L) 45 - 176 ug/dL 06/28/2024 3:17 AM EST LABORATORY [facility] Iron Binding Capacity 149(L) 250 - 425 ug/dL 06/28/2024 3:17 AM EST LABORATORY [facility] Transferrin Saturation Percent 17 15 - 55 % 06/28/2024 3:17 AM EST LABORATORY [facility] Blood Venous blood specimen / Unknown Venipuncture / Unknown 06/27/2024 1:05 PM EST 06/27/2024 1:05 PM EST Korin ALY LAB BLOOD ORDERABLES Fi nal Result Performing Organization Address City/[facility]/ZIP Co de Phone Number LABORATORY [facility] [address] [place] [address] * (ABNORMAL) FERRITIN (06/27/2024 1:05 PM EST) Ferritin 449(H) 30 - 400 ng/mL 06/28/2024 3:50 AM EST LABORATORY [facility] Blood Venous blood specimen / Unknown Venipuncture / Unknown 06/27/2024 1:05 PM EST 06/27/2024 1:05 PM EST Korin ALY LAB BLOOD ORDERABLES Fi nal Result LABORATORY [facility] [address] [place] [address] documented in this encounter Visit Diagnoses Diagnosis Prostate cancer (HCC)- Primary Malignant neoplasm of prostate Anemia, unspecified type documented in this encounter Advance Directives * Full Code (Latest Code Status on File) Date Activated Date Inactivated Comments 06/01/2024 11:10 PM 06/10/2024 6:36 PM This orde r reflects the patients wishes and were consensually agreed upon. Question Answer Comments Discussion of Advance Direct teo occurred with: Not Discussed due to patient's condition Care Teams Goat Herder Relationship Specialty Start Date End Date Rhianna Huitron DO [address] [facility] [address] PCP - General Family Medicine 07/11/19 documented as of this encounter
--- OUTSIDE RECORDS SUMMARY | 2024-11-18 02:19 | External Medical Summary | Summary of Care ---
Author Name Unknown Organization [facility] Address [address] [facility] [address] Phone [phone] Care Team Providers Care Inside B2B Sales Name Role Phone Rhianna Huitron DO Primary Care Provider [phone] Reason for Visit * Reason Onset Date Comments Appointment 06/28/2024 cystoscopy Encounter Details Date Type Department Care Team (Late st Contact Info) Description 06/28/2024 Telephone Urology Samy Bhatt [address] [facility] [[email or web address]] [address] [place] [address] Vinay Sexton MD [address] [place] [address] Appointment (cystoscopy) Allergies Active Allergy Reactions Criticality Noted Date [...] Hour (toPROL XL)Indications:NSV T (nonsustained ventricular tachycardia) ([facility]),Non-ischemic cardiomyopathy (HCC),Chronic HFrEF (heart failure with reduced ejection fraction) ([facility]) Take 1 Tablet by mouth in the morning and 1 Tablet before bedtime. 180 Tablet 1 05/31/20 24 Active Furosemide 20 MG Oral Tablet (Lasix)Indications :FREDY (acute kidney injury) ([facility]),Hyponatremia Take 1 Tablet by mouth in the morning and 1 Tablet before bedtime. 60 Tablet 5 05/31/20 24 Active Urea 15 GM Oral Packet (Ure-Na)Indication s:FREDY (acute kidney injury) ([facility]),Hyponatremia Take 15 g by mouth in the morning and 15 g before bedtime. 60 Packet 5 05/31/20 24 Active ampicillin-sulbact am IV IJ (AMBULATORY)Indica tions:Osteomyeliti s of symphysis pubis ([facility]) Administer 3 g intravenously every [...] g INFUSION CENTRAL IV Q6H 06/28/2024 4 Active NSS 250 mL with Vancomycin [...] glucose 12/16/2005 Macular degeneration 12/02/1999 DISC DIS [id number] documented as of this encounter (statuses as [...] colonoscopy in 5 years ARTHRITIS,RHEUMATOID 07/07/2006 016 [id number] 07/07/200611/01 Overview (11/16/2009): Renamed Per Clinical Trials Billing Project. Pt is a participant in the [employer] (Consortium of Rhe[employer] Researchers [place] national data collection study. For further information please call Dr Hari Clark or Julia White, RN, CCRC at [phone] [facility] RESEARCH OTHER*[id number] 07/07/2006 01/28/2010 Overview (11/16/2009): Renamed Per Clinical Trials Billing Project. Pt is a participant in the [employer] (Consortium of Rheumatology [place] national data collection study. For further information please call Dr Hari Clark or Julia White, RN, CCRC at [phone] ADVANCE DIRECTIVE INFORMATION 05/19/2006 06/06/2024 Overview (05/19/2006): [...] Telephone Encounter - Ml Avalos OSA - 06/28/2024 9:09 AM EST Pt is scheduled for 07/11 at 2pm. Patient is aware. * Telephone Encounter - Tierney Ariza OSA - 06/28/2024 8:07 AM EST Patient canceled his cystoscopy for today. He states he is not feeling well. Patient would like to reschedule the cystoscopy. documented in this encounter Plan of Treatment Upcoming Encounters Date Type Department Care Team (Late st Contact Info) Description 07/07/2024 10:20 AM EST Telemedicine Infectious Disease, [address] [phone] Mona Bland MD [address] [place] [address] 07/11/2024 2:00 PM EST Procedure Only Urology, [facility] 132 [facility] [place] [address] Vinay Sexton MD [address] [place] [address] 07/18/2024 1:20 PM EST Office Visit Rheumatology [address] [place] [address] Mendel Wilson MD [facility] [employer] [facility] [place] [address] 07/21/2024 2:30 PM EST Office Visit Cardiology, [facility] [address] [facility] [place] [address] Chiara Meyer CRNP [address] [facility] [place] [address] 09/08/2024 3:40 PM EST Office Visit Nephrology, [facility] [address] [place] [address] Bryson Ellis MD [address] [place] [address] 10/17/2024 10:30 AM EDT Office Visit Cardiology, [facility] [address] [facility] [place] [address] Dmitri Greenfield DO [address] [place] [address] 10/18/2024 10:00 AM EDT Laboratory Laboratory [facility] [address] [place] [phone] [place], [facility] 200 [facility] [place] [address] 10/25/2024 4:00 PM EDT Office Visit Hematology/Oncology [facility] [address] [place] [phone] Korin Fisher CRNP [address] [place] [address] 03/21/2025 11:45 AM EDT Telemedicine Urology, [facility] [address] [facility] [place] [address] Vinay Sexton MD [address] [place] [address] Scheduled Procedures Name Priority Associated Diagnoses Date/Ti [...] Additional history exists CKD PHOS USE SMARTSET 67670 06/06/202511/2023, 06/05/2024, 06/04/2024, Additional history exists CKD HGB USE SMARTSET 31705 06/27/202506/27, 06/27/2024, 06/20/2024, Additional history exists DTap/Tdap [...] D LEVEL ONCE IN A LIFETIME-USE SMARTSET# 70996 Completed 03/21/2024, 12/25/2023, 05/27/2021, Additional history exists [...] Discussed due to patient's condition Care Teams Inside B2B Sales Relationship Specialty Start Date End Date Rhianna Huitron DO [address] [facility] [place] [address] PCP - General Family Medicine 07/11/19 documented as of this encounter
--- OUTSIDE RECORDS SUMMARY | 2024-11-18 02:19 | External Medical Summary ---
Author Name Unknown Address Unknown Organization K01:LABORATORY [facility] - [address] [facility] [place] [address] Laboratory Report Ordering Provider Test Date Status DESIREE STEPHENS 07/04/2024 07:45:00 Final Observation Date Value Abnormality Reference (Units ) Status BUN 07/04/2024 07:45:00 15 6-20 (mg/dL) Final Creatinine 07/04/2024 07:45:00 1.1 0.6-1.2 (mg/dL) Final Glomerular filtration rate/1.73 sq M.predicted [Volume Rate/Area] in Serum, Plasma or Blood by Creatinine-based formula (CKD-EPI) 07/04/2024 07:45:00 73 >=60 (mL/min) Final eGFR is calculated based on the CKD-EPI 2020 equation. Sodium 07/04/2024 07:45:00 133 Below low normal 135 -146 (mmol/L) Final Potassium 07/04/2024 07:45:00 3.9 3.5-5.1 (m mol/L) Final Cl 07/04/2024 07:45:00 95 Below low normal 98- 107 (mmol/L) Final CO2 07/04/2024 07:45:00 26 22-32 (mmo l/L) Final Anion gap 07/04/2024 07:45:00 12 7-15 (mmol /L) Final Glucose 07/04/2024 07:45:00 128 Above high normal 70 -120 (mg/dL) Final Albumin 07/04/2024 07:45:00 3.3 Below low normal 3.8 -5.0 (g/dL) Final AST (Aspartate aminotransferase) 07/04/2024 07:45:00 10 10-50 (U/L) Fin al Alk Phos 07/04/2024 07:45:00 77 35-130 (U/ L) Final Bilirubin, Total 07/04/2024 07:45:00 0.2 <=1 .2 (mg/dL) Final Calcium 07/04/2024 07:45:00 8.9 8.4-10.2 ( mg/dL) Final Protein 07/04/2024 07:45:00 6.2 6.0-8.3 (g /dL) Final ALT (Alanine aminotransferase) 07/04/2024 07:45:00 8 Below low normal 10-50 (U/L) Final Performing Location LABORATORY [facility] - [address] [facility] [address]
--- OUTSIDE RECORDS SUMMARY | 2024-11-18 02:19 | External Medical Summary ---
Author Name Unknown Address Unknown Organization K01:[facility] [place] [address] [place] [facility] [place] [address] Laboratory Report Ordering Provider Test Date Status DESIREE STEPHENS 07/04/2024 07:45:00 Final Observation Date Value Abnormality Reference (Units ) Status CRP, low-sensitivity 07/04/2024 07:45:00 49 Above high normal <=5 (mg/L) Final Performing Location [facility] [place] [address] [place] [address]
--- OUTSIDE RECORDS SUMMARY | 2024-11-18 02:19 | External Medical Summary ---
Author Name Unknown Address Unknown Organization K01:[place] [facility] [place] [address] [place] [address] Laboratory Report Ordering Provider Test Date Status DESIREE STEPHENS 07/04/2024 07:45:00 Final Observation Date Value Abnormality Reference (Units ) Status SYNC LEUKOCYTES IN BLOOD BY AUTOMATED COUNT 07/04/2024 07:45:00 8.34 4.00-10.80 (K/uL) Final Segs 07/04/2024 07:45:00 79.8 Above high normal 40.0-75.0 (%) Final Lymphs % 07/04/2024 07:45:00 7.9 Below low normal 18.0-42.0 (%) Final Monos 07/04/2024 07:45:00 7.8 1.0-11.0 (%) Final Eosinophils 07/04/2024 07:45:00 3.7 0.0-6.0 (%) Final Basos 07/04/2024 07:45:00 0.6 0.0-2.0 (%) Final Immature Granulocyte, Percent 07/04/2024 07:45:00 0.2 0.0-2.0 (%) Final Absolute Segs 07/04/2024 07:45:00 6.65 1.80-7.70 (K/uL) Final Lymphs, absolute 07/04/2024 07:45:00 0.66 Below low normal 1.00-4.80 (K/ul) Final Monos, Abs 07/04/2024 07:45:00 0.65 0.00-1.10 (K/uL) Final Eos, Abs 07/04/2024 07:45:00 0.31 0.00-0.70 (K/uL) Final Basos, Abs 07/04/2024 07:45:00 0.05 0.00-0.20 (K/uL) Final Immature Granulocytes, Number 07/04/2024 07:45:00 0.02 0.00-0.20 (K/uL) Final Performing Location [place] [facility] [place] [facility] [place] [address]
--- OUTSIDE RECORDS SUMMARY | 2024-11-18 02:19 | External Medical Summary ---
Author Name Unknown Address Unknown Organization K01:[facility]ORY [facility] [place] [address] [facility] [place] [address] Laboratory Report Ordering Provider Test Date Status DESIREE STEPHENS 07/04/2024 07:45:00 Final Observation Date Value Abnormality Reference (Units ) Status Vancomycin, trough 07/04/2024 07:45:00 16.7 1 0.0-20.0 (ug/mL) Final Performing Location [facility]ORY [facility] [place] [address] [place] [address]
--- OUTSIDE RECORDS SUMMARY | 2024-11-18 02:20 | External Medical Summary | Summary of Care ---
Author Name Unknown Organization [facility] Address [address] [address] Phone [phone] Care Team Providers Care Brim Greaser Operator Name Role Phone Rhianna Huitron DO Primary Care Provider [phone] Reason for Visit * Reason Comments Outpatient Testing Encounter Details Date Type Department Care Team (Late st Contact Info) Description 06/27/2024 12:50 PM EST Laboratory Laboratory, [facility] [address] [place] [address] St, Specimen Drop Off [facility] [address] [place] [address] Arrived Allergies Active Allergy Reactions Criticality Noted Date Comments Brent Inhibitors Cough Low 11/26/2017 Alendronate Sodium Muscle pain 04/11/2019 Heartburn, constipation, joint pain Misoprostol Diarrhea 08/08/2003 Niacin Er (Antihyperlipidemic) 11/26/2010 Gas, hot flashes Pollen 01/01/2018 Watery eyes, sneezing Pravastatin 02/26/2007 Upset stomach, all .Statins Simvastatin 02/26/2007 Upset stomach documented as of this encounter (statuses as of 06/27/2024) Medications ASPIR-81 81 MG PO TBEC 1 [...] (toPROL XL)Indications:NSV T (nonsustained ventricular tachycardia) ([facility]),Non-ischemic cardiomyopathy (HCC),Chronic HFrEF (heart failure with reduced ejection fraction) ([facility]) Take 1 Tablet by mouth in the morning and 1 Tablet before bedtime. 180 Tablet 1 05/31/20 24 Active Furosemide 20 MG Oral Tablet (Lasix)Indications :FREDY (acute kidney injury) ([facility]),Hyponatremia Take 1 Tablet by mouth in the morning and 1 Tablet before bedtime. 60 Tablet 5 05/31/20 24 Active Urea 15 GM Oral Packet (Ure-Na)Indication s:FREDY (acute kidney injury) ([facility]),Hyponatremia Take 15 g by mouth in the morning and 15 g before bedtime. 60 Packet 5 05/31/20 24 Active ampicillin-sulbact am IV IJ (AMBULATORY)Indica tions:Osteomyeliti s of symphysis pubis ([facility]) Administer 3 g intravenously every [...] before June 22, 2024. 26.25 g 06/22/20 Active Hospital, Clinic, or Other Facility Administered Medication Ordered Dose Route Frequency Start Date End Date Status NSS 250 mL with Vancomycin 1,250 mg INFUSION 1250 mg CENTRAL IV Q24H 06/22/2024 07/12/2024 Active NSS 65 mL with Ampicillin-Sulbactam 3 g INFUSION CENTRAL IV Q6H 06/24/2024 07/13/2024 Active documented as of this encounter (statuses as of 06/27/2024) Active Problems Problem Noted Date Diagnosed Date [...] glucose 12/16/2005 Macular degeneration 12/02/1999 DISC DIS [id number] documented as of this encounter (statuses as of 06/27/2024) Resolved Problems Problem Noted Date Diagnosed Date [...] colonoscopy in 5 years ARTHRITIS,RHEUMATOID 07/07/2006 016 [id number] 07/07/200611/01 Overview (11/16/2009): Renamed Per Clinical Trials Billing Project. Pt is a participant in the [employer] (Consortium of Rhe[employer]ology [employer] [place]) national data collection study. For further information please call Dr Hari Clark or Julia White, RN, CCRC at [phone] [facility] RESEARCH OTHER*[id number] 07/07/2006 01/28/2010 Overview (11/16/2009): Renamed Per Clinical Trials Billing Project. Pt is a participant in the [employer] (Consortium of Rheumatology [place]) national data collection study. For further information please call Dr Hari Clark or Julia White, RN, CCRC at [phone] ADVANCE DIRECTIVE INFORMATION 05/19/2006 06/06/2024 Overview (05/19/2006): Yes-advised to bring copy in to be scanned into EMR. Hearing loss 12/02/1999 03/29/2013 documented as of this encounter (statuses as of 06/27/2024) Immunizations Name Administration Dates Next Due COVID-19 [...] Description 06/27/2024 2:30 PM EST Telemedicine Hematology/Oncology [facility] 200 [place] [phone] Korin Fisher CRNP 400 [place] [address] Arrived 06/28/2024 2:15 PM EST Procedure Only Urology, [facility] 132 [facility] [place] [address] Vinay Sexton MD 27 [place] [address] 07/07/2024 10:20 AM EST Office Visit Infectious Disease, [facility] 400 [place] [phone] Mona Bland MD 100 [place] [address] 07/18/2024 1:20 PM EST Office Visit Rheumatology [address] [place] [address] Mendel Wilson MD [address] [place] [address] [place] [address] 07/21/2024 2:30 PM EST Office Visit Cardiology, [facility] 132 [facility] [place] [address] Chiara Meyer CRNP [address] [facility] [place] [address] 09/08/2024 3:40 PM EST Office Visit Nephrology, [facility] 400 [facility] [place] [address] Bryson Ellis MD 400 [facility] [place] [address] 10/17/2024 10:30 AM EDT Office Visit Cardiology, [facility] 132 [facility] [place] [address] Dmitri [place], 132 [facility] [place] [address] 03/21/2025 11:45 AM EDT Telemedicine Urology, [facility] [address] [place] [address] Vinay Sexton MD 27 [facility] [place] [phone] Scheduled Procedures Name Priority Associated Diagnoses Date/Ti [...] 05/23/2022, 12/25/2021, 12/25/2021, Additional history exists GFR 12/18/2024 06/20/2024, 06/03, 06/08/2024, Additional history exists HbA1c 06/02/2025 06/02/2024, 0 12/2023, 06/22/2023, Additional history exists CKD PHOS USE SMARTSET 09135 06/06/202511/2023, 06/05/2024, 06/04/2024, Additional history exists CKD HGB USE SMARTSET 32202 06/20/202506/20, 06/20/2024, 06/13/2024, Additional history exists DTap/Tdap Vaccines (3 - [...] D LEVEL ONCE IN A LIFETIME-USE SMARTSET# 02721 Completed 03/21/2024, 12/25/2023, 05/27/2021, Additional history exists [...] Discussed due to patient's condition Care Teams Brim Greaser Operator Relationship Specialty Start Date End Date Rhianna Huitron DO [address] [place] [address] PCP - General Family Medicine 07/11/19 documented as of this encounter
--- OUTSIDE RECORDS SUMMARY | 2024-11-18 02:20 | External Medical Summary | Summary of Care ---
Author Name Unknown Organization [facility] Address [address] [facility] [address] Phone [phone] Care Team Providers Care Food Editor Name Role Phone Rhianna Huitron DO Primary Care Provider [phone] Reason for Visit * Reason Comments Outpatient Testing Encounter Details Date Type Department Care Team (Late st Contact Info) Description 06/27/2024 12:50 PM EST Laboratory Laboratory, [facility] [address] [place] [address] St, Specimen Drop Off [facility] [address] [place] [address] Arrived Allergies Active Allergy Reactions Criticality [...] ([facility]),Non-ischemic cardiomyopathy (HCC),Chronic HFrEF (heart failure with reduced [...] glucose 12/16/2005 Macular degeneration 12/02/1999 DISC DIS [id number] documented as of this encounter (statuses as [...] colonoscopy in 5 years ARTHRITIS,RHEUMATOID 07/07/2006 016 [id number] 07/07/200611/01 Overview (11/16/2009): Renamed Per Clinical Trials Billing Project. Pt is a participant in the [employer] (Consortium of Rhe[employer]ology [place]) national data collection study. For further information please call Dr Hari Clark or Julia White, RN, CCRC at [phone] [facility] RESEARCH OTHER*[id number] 07/07/2006 01/28/2010 Overview (11/16/2009): Renamed Per Clinical Trials Billing Project. Pt is a participant in the [employer] (Consortium of Rheumatology Researchers [place] national data collection study. For further information please call Dr Hari Clark or Julia White, RN, CCRC at [phone] ADVANCE DIRECTIVE INFORMATION 05/19/2006 06/06/2024 Overview (05/19/2006): [...] Description 06/27/2024 2:30 PM EST Telemedicine Hematology/Oncology [facility] 200 [place] [phone] Korin Fisher CRNP 400 [place] [address] Arrived 06/28/2024 2:15 PM EST Procedure Only Urology, [facility] 132 [place] [address] Vinay Sexton MD 27 [place] [address] 07/07/2024 10:20 AM EST Office Visit Infectious Disease, [facility] 400 [place] [phone] Mona Bland MD 100 [place] [address] 07/18/2024 1:20 PM EST Office Visit Rheumatology [address] [place] [address] Mendel Wilson MD [address] [place] [address] [place] [address] 07/21/2024 2:30 PM EST Office Visit Cardiology, [facility] 132 [facility] [place] [address] Chiara Meyer CRNP 132 [facility] [place] [address] 09/08/2024 3:40 PM EST Office Visit Nephrology, [facility] [address] [facility] [place] [address] Bryson Ellis MD 400 [facility] [place] [address] 10/17/2024 10:30 AM EDT Office Visit Cardiology, [facility] 132 [facility] [place] [address] Dmitri Greenfield, 132 [facility] [place] [address] 03/21/2025 11:45 AM EDT Telemedicine Urology, [facility] [address] [place] [address] Vinay Sexton MD 27 [facility] [place] [phone] Scheduled Procedures Name Priority Associated Diagnoses Date/Ti [...] Additional history exists CKD PHOS USE SMARTSET 52290 06/06/202511/2023, 06/05/2024, 06/04/2024, Additional history exists CKD HGB USE SMARTSET 15413 06/20/202506/20, 06/20/2024, 06/13/2024, Additional history exists DTap/Tdap [...] D LEVEL ONCE IN A LIFETIME-USE SMARTSET# 95187 Completed 03/21/2024, 12/25/2023, 05/27/2021, Additional history exists [...] Discussed due to patient's condition Care Teams Food Editor Relationship Specialty Start Date End Date Rhianna Huitron DO [address] [place] [address] PCP - General Family Medicine 07/11/19 documented as of this encounter
--- OUTSIDE RECORDS SUMMARY | 2024-11-18 02:20 | External Medical Summary ---
Author Name Unknown Address Unknown Organization K01:LABORATORY [facility] [place] - [address] [place] [address] Laboratory Report Ordering Provider Test Date Status VANDANAFIDENCIO 06/27/2024 13:05:39 Final Observation Date Value Abnormality Reference (Units ) Status Folic Acid 06/27/2024 13:05:39 >20.0 >4.5 (ng/ mL) Final Performing Location LABORATORY C - [address] [place] [address]
--- OUTSIDE RECORDS SUMMARY | 2024-11-18 02:20 | External Medical Summary | Summary of Care ---
Author Name Unknown Organization [facility] Address [address] [address] Phone [phone] Care Team Providers Care Fire Alarm Operator Name Role Phone Rhianna Huitron DO Primary Care Provider Reason for Visit * Reason Comments Outpatient Testing Encounter Details Date Type Department Care Team (Late st Contact Info) Description 06/27/2024 12:50 PM EST Laboratory Laboratory, [facility] [address] [place] [address] St, Specimen Drop Off [place] [facility] [address] [facility] [address] Urinary tract infection; Atrophy of prostate; Peritoneal [...] glucose 12/16/2005 Macular degeneration 12/02/1999 DISC DIS [id number] documented as of this encounter (statuses as [...] colonoscopy in 5 years ARTHRITIS,RHEUMATOID 07/07/2006 016 [id number] 07/07/200611/01 Overview (11/16/2009): Renamed Per Clinical Trials Billing Project. Pt is a participant in the [employer] (Consortium of Rheumatology Researchers [place] national data collection study. For further information please call Dr Hari Clark or Julia White, RN, CCRC at [phone] [facility] RESEARCH OTHER*[id number] 07/07/2006 01/28/2010 Overview (11/16/2009): Renamed Per Clinical Trials Billing Project. Pt is a participant in the [employer] (Consortium of Rheumatology Researchers [place] national data collection study. For further information please call Dr Hari Clark or Julia White, RN, CCRC at [phone] ADVANCE DIRECTIVE INFORMATION 05/19/2006 06/06/2024 Overview (05/19/2006): [...] Description 06/27/2024 2:30 PM EST Telemedicine Hematology/Oncology [facility] [place] 200 [facility] [place] [phone] Korin Fisher CRNP 400 [place] [address] Arrived 06/28/2024 2:15 PM EST Procedure Only Urology, [facility] 132 [facility] [place] [address] Vinay Sexton MD [address] [place] [address] 07/07/2024 10:20 AM EST Office Visit Infectious Disease, [facility] 400 [place] [phone] Mona Bland MD 100 [place] [address] 07/18/2024 1:20 PM EST Office Visit Rheumatology [place] [address] [facility] [address] Mendel Wilson MD [address] [facility] [place] [address] 07/21/2024 2:30 PM EST Office Visit Cardiology, [facility] 132 [place] [address] Chiara Meyer CRNP 132 [place] [address] 09/08/2024 3:40 PM EST Office Visit Nephrology, [address] [address] Bryson Ellis MD 400 [place] [address] 10/17/2024 10:30 AM EDT Office Visit Cardiology, [facility] 132 [place] [address] Dmitri Greenfield DO 132 [place] [address] 03/21/2025 11:45 AM EDT Telemedicine Urology, [facility] 132 [place] [address] Vinay Sexton MD [address] [place] [address] Pending Results Name Type Priority Associated Diagnoses Date /Time CBC WITH WBC DIFFERENTIAL Lab Routine Urinary tract infection Atrophy of prostate Peritoneal abscess (HCC) 06/27/2024 1:05 PM EST COMPREHENSIVE METABOLIC PANEL Lab Routine Urinary tract infection Atrophy of prostate Peritoneal abscess (HCC) 06/27/2024 1:05 PM EST VANCOMYCIN TROUGH Lab Routine Urinary tract infection Atrophy of prostate Peritoneal abscess (HCC) 06/27/2024 1:05 PM EST CRP (INFLAMMATORY MARKER) Lab Routine Urinary tract infection Atrophy of prostate Peritoneal abscess (HCC) 06/27/2024 1:05 PM EST CBC Lab Routine Urinary tract infection Atrophy of prostate Peritoneal abscess (HCC) 06/27/2024 1:05 PM EST DIFFERENTIAL, AUTOMATED Lab Routine Urinary tract infection Atrophy of prostate Peritoneal abscess (HCC) 06/27/2024 1:05 PM EST Scheduled Procedures Name Priority Associated Diagnoses [...] Additional history exists CKD PHOS USE SMARTSET 31333 06/06/202511/2023, 06/05/2024, 06/04/2024, Additional history exists CKD HGB USE SMARTSET 26417 06/20/202506/20, 06/20/2024, 06/13/2024, Additional history exists DTap/Tdap [...] D LEVEL ONCE IN A LIFETIME-USE SMARTSET# 61369 Completed 03/21/2024, 12/25/2023, 05/27/2021, Additional history exists [...] Discussed due to patient's condition Care Teams Fire Alarm Operator Relationship Specialty Start Date End Date Rhianna Huitron DO [address] [place] [address] PCP - General Family Medicine 07/11/19 documented as of this encounter
--- OUTSIDE RECORDS SUMMARY | 2024-11-18 02:20 | External Medical Summary ---
Author Name Unknown Address Unknown Organization K01:LABORATORY [facility] - [address] [place] [address] Laboratory Report Ordering Provider Test Date Status FIDENCIO ROSS 06/27/2024 13:05:39 Final Observation Date Value Abnormality Reference (Units ) Status Ferritin 06/27/2024 13:05:39 449 Above high normal 30 -400 (ng/mL) Final Performing Location LABORATORY [facility] - [address] [place] [address]
--- OUTSIDE RECORDS SUMMARY | 2024-11-18 02:20 | External Medical Summary ---
Author Name Unknown Address Unknown Organization K01:[place] [facility] [place] [address] [facility] [place] [address] Laboratory Report Ordering Provider Test Date Status DESIREE STEPHENS 06/27/2024 13:05:39 Final Observation Date Value Abnormality Reference (Units ) Status CRP, low-sensitivity 06/27/2024 13:05:39 58 Above high normal <=5 (mg/L) Final Performing Location [facility] [facility] [place] [address] [place] [address]
--- OUTSIDE RECORDS SUMMARY | 2024-11-18 02:20 | External Medical Summary ---
Author Name Unknown Address Unknown Organization K01:[facility]ORY [facility] [place] [address] [facility] [place] [address] Laboratory Report Ordering Provider Test Date Status DESIREE STEPHENS 06/27/2024 13:05:39 Final Observation Date Value Abnormality Reference (Units ) Status SYNC LEUKOCYTES IN BLOOD BY AUTOMATED COUNT 06/27/2024 13:05:39 8.39 4.00-10.80 (K/uL) Final Segs 06/27/2024 13:05:39 81.7 Above high normal 40.0-75.0 (%) Final Lymphs % 06/27/2024 13:05:39 6.0 Below low normal 18.0-42.0 (%) Final Monos 06/27/2024 13:05:39 6.2 1.0-11.0 (%) Final Eosinophils 06/27/2024 13:05:39 4.9 0.0-6.0 (%) Final Basos 06/27/2024 13:05:39 0.6 0.0-2.0 (%) Final Immature Granulocyte, Percent 06/27/2024 13:05:39 0.6 0.0-2.0 (%) Final Absolute Segs 06/27/2024 13:05:39 6.86 1.80-7.70 (K/uL) Final Lymphs, absolute 06/27/2024 13:05:39 0.50 Below low normal 1.00-4.80 (K/ul) Final Monos, Abs 06/27/2024 13:05:39 0.52 0.00-1.10 (K/uL) Final Eos, Abs 06/27/2024 13:05:39 0.41 0.00-0.70 (K/uL) Final Basos, Abs 06/27/2024 13:05:39 0.05 0.00-0.20 (K/uL) Final Immature Granulocytes, Number 06/27/2024 13:05:39 0.05 0.00-0.20 (K/uL) Final Performing Location LABORATORY [facility] [place] - [facility] [place] [address]
--- OUTSIDE RECORDS SUMMARY | 2024-11-18 02:20 | External Medical Summary ---
Author Name Unknown Address Unknown Organization K01:[place] [facility] [place] [address] [place] [address] Laboratory Report Ordering Provider Test Date Status FIDENCIO ROSS 06/27/2024 13:05:39 Final Observation Date Value Abnormality Reference (Units ) Status Vitamin B12 06/27/2024 13:05:39 [phone] (pg/mL) Final Performing Location [place] [facility] [place] [address] [place] [address]
--- OUTSIDE RECORDS SUMMARY | 2024-11-18 02:20 | External Medical Summary ---
Author Name Unknown Address Unknown Organization K01:LABORATORY [address] [address] Laboratory Report Ordering Provider Test Date Status DESIREE STEPHENS 06/27/2024 13:05:39 Final Observation Date Value Abnormality Reference (Units ) Status WBC, Total 06/27/2024 13:05:39 8.39 4.00-10.80 (K/uL) Final RBC 06/27/2024 13:05:39 3.49 4.50-5.25 (M/uL) Final Hemoglobin 06/27/2024 13:05:39 9.4 Below low normal 14.0-16.8 (g/dL) Final HCT 06/27/2024 13:05:39 30.4 Below low normal 40.0-48.4 (%) Final MCV 06/27/2024 13:05:39 87.1 82.0-99.5 (fL) Final MCH 06/27/2024 13:05:39 26.9 27.0-34.0 (pg) Final MCHC 06/27/2024 13:05:39 30.9 32.0-36.0 (g/dL) Final RDW 06/27/2024 13:05:39 18.0 11.5-15.5 (%) Final Platelets 06/27/2024 13:05:39 257 140-400 (K/uL) Final MPV 06/27/2024 13:05:39 10.6 6.6-11.1 (fL) Final Nucleated erythrocytes/100 leukocytes [Ratio] in Blood by Automated count 06/27/2024 13:05:39 0 <=0 (/100 WBCs) Final Performing Location [facility] [facility] [place] [address] [place], [place] [address] [facility] [address]
--- OUTSIDE RECORDS SUMMARY | 2024-11-18 02:20 | External Medical Summary | Summary of Care ---
Author Name Unknown Organization [facility] Address [address] [place] [address] Phone [phone] Care Team Providers Care Computer Art Instructor Name Role Phone Rhianna Huitron DO Primary Care Provider [phone] Encounter Details Date Type Department Care Team (Late st Contact Info) Description 06/28/2024 Orders Only [facility] HOME RX [address] [place] [address] Mary Page MD [address] [place] [address] Allergies Active Allergy Reactions Criticality [...] Hour (toPROL XL)Indications:NSV T (nonsustained ventricular tachycardia) ([facility]),Non-ischemic cardiomyopathy ([facility]),Chronic HFrEF (heart failure with reduced ejection fraction) ([facility]) Take 1 Tablet by mouth in the morning and 1 Tablet before bedtime. 180 Tablet 1 05/31/20 24 Active Furosemide 20 MG Oral Tablet (Lasix)Indications :FREDY (acute kidney injury) ([facility]),Hyponatremia Take 1 Tablet by mouth in the morning and 1 Tablet before bedtime. 60 Tablet 5 05/31/20 24 Active Urea 15 GM Oral Packet (Ure-Na)Indication s:FREDY (acute kidney injury) ([facility]),Hyponatremia Take 15 g by mouth in the morning and 15 g before bedtime. 60 Packet 5 05/31/20 24 Active ampicillin-sulbact am IV IJ (AMBULATORY)Indica tions:Osteomyeliti s of symphysis pubis ([facility]) Administer 3 g intravenously every 6 hours. 348 g 06/14/20 24 024 Active Clopidogrel Bisulfate 75 MG Oral Tablet (pLAVix) TAKE 1 TABLET BY MOUTH EVERY DAY IN THE MORNING 90 Tablet 3 11/14/20 24 Active vancomycin IV IV (AMBULATORY) Administer [...] CENTRAL IV Q24H 06/29/2024 4 Active NSS 250 mL with Vancomycin 1,250 mg INFUSION 1250 mg CENTRAL IV Q24H 06/22/2024 4 Discontinued NSS 65 mL with Ampicillin-Sulbact am 3 g INFUSION CENTRAL IV Q6H 06/24/2024 4 Discontinued documented as of this encounter [...] glucose 12/16/2005 Macular degeneration 12/02/1999 DISC DIS [id number] documented as of this encounter (statuses as [...] colonoscopy in 5 years ARTHRITIS,RHEUMATOID 07/07/2006 016 [id number] 07/07/200611/01 Overview (11/16/2009): Renamed Per Clinical Trials Billing Project. Pt is a participant in the [employer] (Consortium of [place]ology Researchers [place]) national data collection study. For further information please call Dr Hari Clark or Julia White, RN, CCRC at [phone] [facility] RESEARCH OTHER*[id number] 07/07/2006 01/28/2010 Overview (11/16/2009): Renamed Per Clinical Trials Billing Project. Pt is a participant in the [employer] (Consortium of [place]umatology [place]) national data collection study. For further information please call Dr Hari Clark or Julia White RN, [facility] at [phone] ADVANCE DIRECTIVE INFORMATION 05/19/2006 06/06/2024 Overview (05/19/2006): [...] EDLucita Nugent RN * Do you have difficulty dressing [...] encounter Miscellaneous Notes * Addendum Note - Maru Gutierrez RPh - 06/28/2024 9:19 AM ESTAddended by: MARU GUTIERREZ on: 06/28/2024 09:19 AM Modules accepted: Orders documented in this encounter Plan of Treatment Upcoming Encounters Date Type Department Care Team (Late st Contact Info) Description 07/07/2024 10:20 AM EST Telemedicine Infectious Disease, [address] [phone] Mona Bland MD [address] [place] [address] 07/11/2024 2:00 PM EST Procedure Only Urology, [facility] 132 [facility] [place] [address] Vinay Sexton MD [address] [place] [address] 07/18/2024 1:20 PM EST Office Visit Rheumatology [place] [address] [facility] [place] [address] [place] [address] [place] [address] [place] [address] 07/21/2024 2:30 PM EST Office Visit Cardiology, [facility] 132 [facility] [address] Chiara Meyer CRNP 132 [facility] [place] [address] 09/08/2024 3:40 PM EST Office Visit Nephrology, [facility] [address] [place] [address] Bryson Ellis MD [address] [place] [address] 10/17/2024 10:30 AM EDT Office Visit Cardiology, [facility] 132 [facility] [place] [address] Dmitri Greenfield DO 132 [place] [address] 10/18/2024 10:00 AM EDT Laboratory Laboratory [facility] [address] [place] [address] Gordon, Lab [facility] 200 [facility] [place] [address] 10/25/2024 4:00 PM EDT Office Visit Hematology/Oncology [facility] [address] [place] [phone] Korin Fisher CRNP 400 [place] [address] 03/21/2025 11:45 AM EDT Telemedicine Urology, [facility] 132 [facility] [address] Vinay Sexton MD 27 [place] [address] Scheduled Procedures Name Priority Associated Diagnoses Date/Ti [...] Additional history exists CKD PHOS USE SMARTSET 59025 06/06/202511/2023, 06/05/2024, 06/04/2024, Additional history exists CKD HGB USE SMARTSET 23328 06/27/202506/27, 06/27/2024, 06/20/2024, Additional history exists DTap/Tdap [...] D LEVEL ONCE IN A LIFETIME-USE SMARTSET# 28018 Completed 03/21/2024, 12/25/2023, 05/27/2021, Additional history exists [...] Discussed due to patient's condition Care Teams Computer Art Instructor Relationship Specialty Start Date End Date Rhianna Huitron DO [address] [place] [address] PCP - General Family Medicine 07/11/19 documented as of this encounter
--- OUTSIDE RECORDS SUMMARY | 2024-11-18 02:20 | External Medical Summary ---
Author Name Unknown Address Unknown Organization K01:LABORATORY [facility] - [address] [facility] [place] [address] Laboratory Report Ordering Provider Test Date Status DESIREE STEPHENS 06/27/2024 13:05:39 Final Observation Date Value Abnormality Reference (Units ) Status Vancomycin, trough 06/27/2024 13:05:39 16.1 1 0.0-20.0 (ug/mL) Final Performing Location [facility]ORY [facility] - [address] [place] [address]
--- OUTSIDE RECORDS SUMMARY | 2024-11-18 02:20 | External Medical Summary | Summary of Care ---
Author Name Unknown Organization [facility] Address [address] [place] [address] Phone [phone] Care Team Providers Care Accredited Pharmacy Technician Name Role Phone Rhianna Huitron DO Primary Care Provider [phone] Encounter Details Date Type Department Care Team (Late st Contact Info) Description 06/28/2024 Orders Only [facility] HOME RX [address] [place] [address] Mary Page MD [address] [place] [address] Allergies Active Allergy Reactions Criticality [...] 1250 mg CENTRAL IV Q24H 06/22/2024 4 Active NSS 65 mL with Ampicillin-Sulbact am 3 g INFUSION CENTRAL IV Q6H 06/28/2024 4 Active NSS 65 mL with Ampicillin-Sulbact [...] glucose 12/16/2005 Macular degeneration 12/02/1999 DISC DIS [id number] documented as of this encounter (statuses as [...] colonoscopy in 5 years ARTHRITIS,RHEUMATOID 07/07/2006 016 [id number] 07/07/200611/01 Overview (11/16/2009): Renamed Per Clinical Trials Billing Project. Pt is a participant in the [employer] (Consortium of Rheumatology Researchers [place]) national data collection study. For further information please call Dr Hari Clark or Julia White, RN, CCRC at [phone] [facility] RESEARCH OTHER*[id number] 07/07/2006 01/28/2010 Overview (11/16/2009): Renamed Per Clinical Trials Billing Project. Pt is a participant in the [employer] (Consortium of Rheumatology Researchers [place]) national data collection study. For further information please call Dr Hari Clark or Julia White, RN, CCRC at [phone] ADVANCE DIRECTIVE INFORMATION 05/19/2006 06/06/2024 Overview (05/19/2006): [...] Team (Late st Contact Info) Description 06/28/2024 2:15 PM EST Procedure Only Urology, [facility] 132 [facility] [place] [address] Vinay Sexton MD [address] [place] [address] 07/07/2024 10:20 AM EST Telemedicine Infectious Disease, [address] [phone] Mona Bland MD [address] [place], [place] [address] 07/18/2024 1:20 PM EST Office Visit Rheumatology [address] [address] Mendel Wilson MD [address] [place] [address] 07/21/2024 2:30 PM EST Office Visit Cardiology, [facility] 132 [facility] [place] [address] Chiara Meyer CRNP 132 [facility] [place] [address] 09/08/2024 3:40 PM EST Office Visit Nephrology, [address] [address] Bryson Ellis MD [address] [place] [phone] 10/17/2024 10:30 AM EDT Office Visit Cardiology, [facility] [address] [place] [address] Dmitri Greenfield, [address] [place] [address] 03/21/2025 11:45 AM EDT Telemedicine Urology, [facility] [address] [place] [address] Vinay Sexton MD [address] [place] [address] Scheduled Procedures Name Priority Associated Diagnoses Date/Ti [...] Additional history exists CKD PHOS USE SMARTSET 33268 06/06/202511/2023, 06/05/2024, 06/04/2024, Additional history exists CKD HGB USE SMARTSET 53360 06/27/202506/27, 06/27/2024, 06/20/2024, Additional history exists DTap/Tdap [...] D LEVEL ONCE IN A LIFETIME-USE SMARTSET# 64572 Completed 03/21/2024, 12/25/2023, 05/27/2021, Additional history exists [...] Discussed due to patient's condition Care Teams Accredited Pharmacy Technician Relationship Specialty Start Date End Date Rhianna Huitron DO [address] [place] [facility] [place] [address] PCP - General Family Medicine 07/11/19 documented as of this encounter
--- OUTSIDE RECORDS SUMMARY | 2024-11-18 02:20 | External Medical Summary | Summary of Care ---
Author Name Unknown Organization [facility] Address [address] [facility] [address] Phone [phone] Care Team Providers Care Hot Dog Vender Name Role Phone Rhianna Huitron DO Primary Care Provider [phone] Reason for Visit * Reason Comments Outpatient Testing Encounter Details Date Type Department Care Team (Late st Contact Info) Description 06/27/2024 12:50 PM EST Laboratory Laboratory, [facility] [address] [place] [address] St, Specimen Drop Off [place] [address] [facility] [place] [address] Urinary tract infection; Atrophy of prostate; [...] Hour (toPROL XL)Indications:NSV T (nonsustained ventricular tachycardia) ([facility]),Non-ischemic cardiomyopathy ([facility]),Chronic HFrEF (heart failure with reduced ejection fraction) ([facility]) Take 1 Tablet by mouth in the morning and 1 Tablet before bedtime. 180 Tablet 1 05/31/20 24 Active Furosemide 20 MG Oral Tablet (Lasix)Indications :FREDY (acute kidney injury) ([facility]),Hyponatremia Take 1 Tablet by mouth in the morning and 1 Tablet before bedtime. 60 Tablet 5 05/31/20 24 Active Urea 15 GM Oral Packet (Ure-Na)Indication s:FREDY (acute kidney injury) ([facility]),Hyponatremia Take 15 g by mouth in the morning and 15 g before bedtime. 60 Packet 5 05/31/20 24 Active ampicillin-sulbact am IV IJ (AMBULATORY)Indica tions:Osteomyeliti s of symphysis pubis ([facility]) Administer 3 g intravenously every [...] glucose 12/16/2005 Macular degeneration 12/02/1999 DISC DIS [id number] documented as of this encounter (statuses as [...] colonoscopy in 5 years ARTHRITIS,RHEUMATOID 07/07/2006 016 [id number] 07/07/200611/01 Overview (11/16/2009): Renamed Per Clinical Trials Billing Project. Pt is a participant in the [employer] (Consortium of Rheumatology Researchers [place]) national data collection study. For further information please call Dr Hari Clark or Julia White, RN, CCRC at [phone] [facility] RESEARCH OTHER*[id number] 07/07/2006 01/28/2010 Overview (11/16/2009): Renamed Per Clinical Trials Billing Project. Pt is a participant in the [employer] (Consortium of Rheumatology [place] national data collection study. For further information please call Dr Hari Clark or Julia White, RN, CCRC at [phone] ADVANCE DIRECTIVE INFORMATION 05/19/2006 06/06/2024 Overview (05/19/2006): [...] Description 06/27/2024 2:30 PM EST Telemedicine Hematology/Oncology [facility] 200 [facility] [phone] Korin Fisher CRNP [address] [place] [address] Arrived 06/28/2024 2:15 PM EST Procedure Only Urology, [facility] 132 [facility] [place] [address] Vinay Sexton MD 27 [place] [address] 07/07/2024 10:20 AM EST Office Visit Infectious Disease, [facility] 400 [place] [phone] Mona Bland MD [address] [place] [address] 07/18/2024 1:20 PM EST Office Visit Rheumatology [place] [phone] [facility] [place] [address] Mendel Wilson MD 25[address] [facility] [place] [address] 07/21/2024 2:30 PM EST Office Visit Cardiology, [facility] 132 [place] [address] Chiara Meyer CRNP 132 [place] [address] 09/08/2024 3:40 PM EST Office Visit Nephrology, [address] [address] Bryson Ellis MD 400 [place] [address] 10/17/2024 10:30 AM EDT Office Visit Cardiology, [facility] 132 [place] [address] Dmitri Greenfield DO 132 [place] [address] 03/21/2025 11:45 AM EDT Telemedicine Urology, [facility] 132 [place] [address] Vinay Sexton MD [address] [place] [address] Pending Results Name Type Priority Associated Diagnoses [...] Additional history exists CKD PHOS USE SMARTSET 62062 06/06/202511/2023, 06/05/2024, 06/04/2024, Additional history exists CKD HGB USE SMARTSET 25846 06/20/202506/20, 06/20/2024, 06/13/2024, Additional history exists DTap/Tdap [...] D LEVEL ONCE IN A LIFETIME-USE SMARTSET# 62835 Completed 03/21/2024, 12/25/2023, 05/27/2021, Additional history exists [...] Discussed due to patient's condition Care Teams Hot Dog Vender Relationship Specialty Start Date End Date Rhianna Huitron DO [address] [facility] [place] [address] PCP - General Family Medicine 07/11/19 documented as of this encounter
--- OUTSIDE RECORDS SUMMARY | 2024-11-18 02:20 | External Medical Summary ---
Author Name Unknown Address Unknown Organization K01:LABORATORY [facility] - [address] [place] [address] Laboratory Report Ordering Provider Test Date Status FIDENCIO ROSS 06/27/2024 13:05:39 Final Observation Date Value Abnormality Reference (Units ) Status Iron 06/27/2024 13:05:39 26 Below low normal 45-176 (ug/dL) Final Iron-binding capacity 06/27/2024 13:05:39 149 Below low normal 250-425 (ug/dL) Final Transferrin Sat % 06/27/2024 13:05:39 17 15-55 (%) Final Performing Location LABORATORY [facility] - [address] [place] [address]
--- OUTSIDE RECORDS SUMMARY | 2024-11-18 02:20 | External Medical Summary | Summary of Care ---
Author Name Unknown Organization [facility] Address [address] [facility] [address] Phone [phone] Care Team Providers Care Plunger Scoop Operator Name Role Phone Rhianna Huitron DO Primary Care Provider [phone] Reason for Visit * Reason Comments Outpatient Testing Encounter Details Date Type Department Care Team (Late st Contact Info) Description 06/27/2024 12:50 PM EST Laboratory Laboratory, [facility] [address] [place] [address] St, Specimen Drop Off [facility] 819 [place] [address] Arrived Allergies Active Allergy Reactions Criticality [...] ventricular tachycardia) ([facility]),Non-ischemic cardiomyopathy ([facility]),Chronic HFrEF (heart failure with reduced ejection fraction) ([facility]) Take 1 Tablet by mouth in the morning and 1 Tablet before bedtime. 180 Tablet 1 05/31/20 24 Active Furosemide 20 MG Oral Tablet (Lasix)Indications :FREDY (acute kidney injury) ([facility]),Hyponatremia Take 1 Tablet by mouth in the morning and 1 Tablet before bedtime. 60 Tablet 5 05/31/20 24 Active Urea 15 GM Oral Packet (Ure-Na)Indication s:FREDY (acute kidney injury) ([facility]),Hyponatremia Take 15 g by mouth in the morning and 15 g before bedtime. 60 Packet 5 05/31/20 24 Active ampicillin-sulbact am IV IJ (AMBULATORY)Indica tions:Osteomyeliti s of symphysis pubis ([facility]) Administer 3 g intravenously every 6 hours. [...] glucose 12/16/2005 Macular degeneration 12/02/1999 DISC DIS [id number] documented as of this encounter (statuses as [...] colonoscopy in 5 years ARTHRITIS,RHEUMATOID 07/07/2006 016 [id number] 07/07/200611/01 Overview (11/16/2009): Renamed Per Clinical Trials Billing Project. Pt is a participant in the [employer] (Consortium of Rheumatology Researchers [place] national data collection study. For further information please call Dr Hari Clark or Julia White, RN, CCRC at [phone] [facility] RESEARCH OTHER*[id number] 07/07/2006 01/28/2010 Overview (11/16/2009): Renamed Per Clinical Trials Billing Project. Pt is a participant in the [employer] (Consortium of Rheumatology Researchers [place] national data collection study. For further information please call Dr Hari Clark or Julia White, RN, CCRC at [phone] ADVANCE DIRECTIVE INFORMATION 05/19/2006 06/06/2024 Overview (05/19/2006): [...] Description 06/27/2024 2:30 PM EST Telemedicine Hematology/Oncology [facility] 200 [place] [phone] Korin Fisher CRNP 400 [place] [address] Arrived 06/28/2024 2:15 PM EST Procedure Only Urology, [facility] 132 [place] [address] Vinay Sexton MD 27 [place] [address] 07/07/2024 10:20 AM EST Office Visit Infectious Disease, [facility] 400 [place] [phone] Mona Bland MD 100 [place] [address] 07/18/2024 1:20 PM EST Office Visit Rheumatology [address] [place] [address] Mendel Wilson MD [address] [place] [address] [place] [address] 07/21/2024 2:30 PM EST Office Visit Cardiology, [facility] 132 [facility] [place] [address] Chiara Meyer CRNP 132 [facility] [place] [address] 09/08/2024 3:40 PM EST Office Visit Nephrology, [facility] 400 [facility] [place] [address] Bryson Ellis MD 400 [facility] [place] [address] 10/17/2024 10:30 AM EDT Office Visit Cardiology, [facility] [address] [place] [address] Dmitri Greenfield, 132 [facility] [place] [address] 03/21/2025 11:45 AM EDT Telemedicine Urology, [facility] [address] [place] [address] Vinay Sexton MD 27 [facility] [place] [phone] Scheduled Procedures Name Priority Associated Diagnoses Date/Ti [...] Additional history exists CKD PHOS USE SMARTSET 12466 06/06/202511/2023, 06/05/2024, 06/04/2024, Additional history exists CKD HGB USE SMARTSET 53706 06/20/202506/20, 06/20/2024, 06/13/2024, Additional history exists DTap/Tdap [...] D LEVEL ONCE IN A LIFETIME-USE SMARTSET# 03949 Completed 03/21/2024, 12/25/2023, 05/27/2021, Additional history exists [...] Discussed due to patient's condition Care Teams Plunger Scoop Operator Relationship Specialty Start Date End Date Rhianna Huitron DO [address] [place] [address] PCP - General Family Medicine 07/11/19 documented as of this encounter
--- OUTSIDE RECORDS SUMMARY | 2024-11-18 02:20 | External Medical Summary | Summary of Care ---
Author Name Unknown Organization [facility] Address [address] [facility] [address] Phone [phone] Care Team Providers Care Cork Tipper Name Role Phone Rhianna Huitron DO Primary Care Provider [phone] Reason for Visit * Reason Comments Outpatient Testing Encounter Details Date Type Department Care Team (Late st Contact Info) Description 06/27/2024 12:50 PM EST Laboratory Laboratory, [facility] [address] [place] [address] St, Specimen Drop Off [place] [address]19 [place] [address] Urinary tract infection; Atrophy of prostate; [...] XL)Indications:NSV T (nonsustained ventricular tachycardia) ([facility]),Non-ischemic cardiomyopathy ([facility]),Chronic HFrEF (heart failure with reduced ejection fraction) ([facility]) Take 1 Tablet by mouth in the morning and 1 Tablet before bedtime. 180 Tablet 1 05/31/20 24 Active Furosemide 20 MG Oral Tablet (Lasix)Indications :FREDY (acute kidney injury) ([facility]),Hyponatremia Take 1 Tablet by mouth in the morning and 1 Tablet before bedtime. 60 Tablet 5 05/31/20 24 Active Urea 15 GM Oral Packet (Ure-Na)Indication s:FREDY (acute kidney injury) ([facility]),Hyponatremia Take 15 g by mouth in the morning and 15 g before bedtime. 60 Packet 5 05/31/20 24 Active ampicillin-sulbact am IV IJ (AMBULATORY)Indica tions:Osteomyeliti s of symphysis pubis ([facility]) Administer 3 g intravenously every [...] glucose 12/16/2005 Macular degeneration 12/02/1999 DISC DIS [id number] documented as of this encounter (statuses as [...] colonoscopy in 5 years ARTHRITIS,RHEUMATOID 07/07/2006 016 [id number] 07/07/200611/01 Overview (11/16/2009): Renamed Per Clinical Trials Billing Project. Pt is a participant in the [employer] (Consortium of Rheumatology Researchers [place] national data collection study. For further information please call Dr Hari Clark or Julia White, RN, CCRC at [phone] [facility] RESEARCH OTHER*[id number] 07/07/2006 01/28/2010 Overview (11/16/2009): Renamed Per Clinical Trials Billing Project. Pt is a participant in the [employer] (Consortium of Rheumatology [place] national data collection study. For further information please call Dr Hari Clark or Julia White, RN, CCRC at [phone] ADVANCE DIRECTIVE INFORMATION 05/19/2006 06/06/2024 Overview (05/19/2006): [...] Description 06/27/2024 2:30 PM EST Telemedicine Hematology/Oncology [facility] [place] 200 [place] [phone] Korin Fisher CRNP 400 [place] [address] Arrived 06/28/2024 2:15 PM EST Procedure Only Urology, [facility] 132 [employer] [place] [address] Vinay Sexton MD 27 [place] [address] 07/07/2024 10:20 AM EST Office Visit Infectious Disease, [facility] 400 [place] [phone] Mona Bland MD 100 [place] [address] 07/18/2024 1:20 PM EST Office Visit Rheumatology [place] 683280 [facility] [place] [address] Mendel Wilson MD [address] [facility] [place] [address] 07/21/2024 2:30 PM EST Office Visit Cardiology, [facility] 132 [place] [address] Chiara Meyer CRNP 132 [facility] [address] 09/08/2024 3:40 PM EST Office Visit Nephrology, [address] [address] Bryson Ellis MD 400 [place] [address] 10/17/2024 10:30 AM EDT Office Visit Cardiology, [facility] 132 [place] [address] Dmitri Greenfield DO 132 [facility] [facility] [place] [address] 03/21/2025 11:45 AM EDT Telemedicine Urology, [facility] 132 [place] [address] Vinay Sexton MD [address] [place] [address] Pending Results Name Type Priority Associated Diagnoses [...] Additional history exists CKD PHOS USE SMARTSET 17037 06/06/202511/2023, 06/05/2024, 06/04/2024, Additional history exists CKD HGB USE SMARTSET 24487 06/20/202506/20, 06/20/2024, 06/13/2024, Additional history exists DTap/Tdap [...] D LEVEL ONCE IN A LIFETIME-USE SMARTSET# 76757 Completed 03/21/2024, 12/25/2023, 05/27/2021, Additional history exists [...] Discussed due to patient's condition Care Teams Cork Tipper Relationship Specialty Start Date End Date Rhianna Huitron DO [address] [place] [facility] [place] [address] PCP - General Family Medicine 07/11/19 documented as of this encounter
--- OUTSIDE RECORDS SUMMARY | 2024-11-18 02:21 | External Medical Summary ---
Author Name Unknown Address Unknown Organization K01:[facility] [place] [address] [place] [address] [place] [address] Laboratory Report Ordering Provider Test Date Status DESIREE STEPHENS 06/20/2024 08:29:00 Final Observation Date Value Abnormality Reference (Units ) Status Vancomycin, trough 06/20/2024 08:29:00 20.6 Above high normal 10.0-20.0 (ug/mL) Final Performing Location [facility] [place] [address] [address]
--- OUTSIDE RECORDS SUMMARY | 2024-11-18 02:21 | External Medical Summary | Summary of Care ---
Author Name Unknown Organization [facility] Address [address] [place] [address] Phone [phone] Care Team Providers Care Operating Room Assistant Name Role Phone Rhianna Huitron DO Primary Care Provider Encounter Details Date Type Department Care Team (Late st Contact Info) Description 06/24/2024 Orders Only [facility] [address] [place] [address] Mary Page MD [address] [place] [address] Allergies Active Allergy Reactions Criticality Noted Date Comments Brent Inhibitors Cough Low 11/26/2017 Alendronate Sodium Muscle pain 04/11/2019 Heartburn, constipation, joint pain Misoprostol Diarrhea 08/08/2003 Niacin Er (Antihyperlipidemic) 11/26/2010 Gas, hot flashes Pollen 01/01/2018 Watery eyes, sneezing Pravastatin 02/26/2007 Upset stomach, all .Statins Simvastatin 02/26/2007 Upset stomach documented as of this encounter (statuses as of 06/24/2024) Medications ASPIR-81 81 MG PO TBEC 1 [...] Hour (toPROL XL)Indications:NSV T (nonsustained ventricular tachycardia) ([facility]),Non-ischemic cardiomyopathy ([facility]),Chronic HFrEF (heart failure with reduced ejection fraction) ([facility]) Take 1 Tablet by mouth in the morning and 1 Tablet before bedtime. 180 Tablet 1 05/31/20 24 Active Furosemide 20 MG Oral Tablet (Lasix)Indications :FREDY (acute kidney injury) ([facility]),Hyponatremia Take 1 Tablet by mouth in the morning and 1 Tablet before bedtime. 60 Tablet 5 05/31/20 24 Active Urea 15 GM Oral Packet (Ure-Na)Indication s:FREDY (acute kidney injury) ([facility]),Hyponatremia Take 15 g by mouth in the morning and 15 g before bedtime. 60 Packet 5 05/31/20 24 Active ampicillin-sulbact am IV IJ (AMBULATORY)Indica tions:Osteomyeliti s of symphysis pubis ([facility]) Administer 3 g intravenously every 6 [...] g INFUSION CENTRAL IV Q6H 06/24/2024 4 Active NSS 65 mL with Ampicillin-Sulbact am 3 g INFUSION CENTRAL IV Q6H 06/20/2024 4 Discontinued documented as of this encounter (statuses as of 06/24/2024) Active Problems Problem Noted Date Diagnosed Date [...] glucose 12/16/2005 Macular degeneration 12/02/1999 DISC DIS [id number] documented as of this encounter (statuses as of 06/24/2024) Resolved Problems Problem Noted Date Diagnosed Date [...] colonoscopy in 5 years ARTHRITIS,RHEUMATOID 07/07/2006 016 [id number] 07/07/200611/01 Overview (11/16/2009): Renamed Per Clinical Trials Billing Project. Pt is a participant in the [employer] (Consortium of Rheumatology Researchers [place]) national data collection study. For further information please call Dr Hari Clark or Julia White, RN, CCRC at [phone] [facility] RESEARCH OTHER*[id number] 07/07/2006 01/28/2010 Overview (11/16/2009): Renamed Per Clinical Trials Billing Project. Pt is a participant in the [employer] (Consortium of Rheumatology Researchers [place]) national data collection study. For further information please call Dr Hari Clark or Julia White, RN, CCRC at [phone] ADVANCE DIRECTIVE INFORMATION 05/19/2006 06/06/2024 Overview (05/19/2006): Yes-advised to bring copy in to be scanned into EMR. Hearing loss 12/02/1999 03/29/2013 documented as of this encounter (statuses as of 06/24/2024) Immunizations Name Administration Dates Next Due COVID-19 [...] st Contact Info) Description 06/27/2024 10:00 AM EST Pharmacy Home Infusion, [place] [address] [place] [address] Mgmt, [employer] Pharmacist Antig [address] [place] [address] 06/27/2024 2:30 PM EST Telemedicine Hematology/Oncology [facility] [address] [place] [address] Korin Fisher CRNP [address] [place] [address] 06/28/2024 2:15 PM EST Procedure Only Urology, [facility] [address] [facility] [place] [address] Vinay Sexton MD [address] [place], [place] [id number] 07/07/2024 10:20 AM EST Office Visit Infectious Disease, [facility] [address] [place] [address] Mona Bland MD [address] [place] [address] 07/18/2024 1:20 PM EST Office Visit Rheumatology [address] [place] [address] Mendel Wilson MD [address] [place], [place] [address] 07/21/2024 2:30 PM EST Office Visit Cardiology, [facility] 132 [place] [address] Chiara Meyer CRNP 132 [facility] [place] [address] 09/08/2024 3:40 PM EST Office Visit Nephrology, [facility] [address] [place] [address] Bryson Ellis MD [address] [place] [address] 10/17/2024 10:30 AM EDT Office Visit Cardiology, [facility] [address] [facility] [place] [address] Dmitri Greenfield DO [address] [facility] [place] [address] 03/21/2025 11:45 AM EDT Telemedicine Urology, [facility] [address] [place] [address] Vinay Sexton MD [address] [place] [address] Scheduled Procedures Name Priority Associated Diagnoses Date/Ti [...] 06/08/2024, Additional history exists HbA1c 06/02/2025 06/02/2024, 040 12/2023, 06/22/2023, Additional history exists CKD PHOS USE SMARTSET 54528 06/06/202511/2023, 06/05/2024, 06/04/2024, Additional history exists CKD HGB USE SMARTSET 20154 06/20/202506/20, 06/20/2024, 06/13/2024, Additional history exists DTap/Tdap [...] D LEVEL ONCE IN A LIFETIME-USE SMARTSET# 27233 Completed 03/21/2024, 12/25/2023, 05/27/2021, Additional history exists [...] Discussed due to patient's condition Care Teams Operating Room Assistant Relationship Specialty Start Date End Date Rhianna Huitron DO [address] [facility] [place] [address] PCP - General Family Medicine 07/11/19 documented as of this encounter
--- OUTSIDE RECORDS SUMMARY | 2024-11-18 02:21 | External Medical Summary | Summary of Care ---
Author Name Unknown Organization [facility] Address [address] [place] [address] Phone [phone] Care Team Providers Care Process Control Tech Name Role Phone Rhianna Huitron DO Primary Care Provider [phone] Reason for Visit * Reason Comments Medication Management Encounter Details Date Type Department Care Team (Late st Contact Info) Description 06/21/2024 8:30 AM [facility] Pharmacy Home Infusion, [place] [address] [place], [place] [phone] Billy Galloway Pharmacist Antig [address] [place] [address] Osteomyelitis, unspecified site, unspecified type (HCC)* Allergies Active Allergy Reactions Criticality Noted Date Comments Brent Inhibitors Cough Low 11/26/2017 Alendronate Sodium Muscle pain 04/11/2019 Heartburn, constipation, joint pain Misoprostol Diarrhea 08/08/2003 Niacin Er (Antihyperlipidemic) 11/26/2010 Gas, hot flashes Pollen 01/01/2018 Watery eyes, sneezing Pravastatin 02/26/2007 Upset stomach, all .Statins Simvastatin 02/26/2007 Upset stomach documented as of this encounter (statuses as of 06/21/2024) Medications ASPIR-81 81 MG PO TBEC 1 TABLET DAILY 0 11/17/2 006 Active Acetaminophen 325 MG Oral Tablet (Tylenol) 2 Tablets. 024 Active Magnesium Oxide -Mg Supplement 400 (240 Mg) MG Oral Tablet (Mag-Ox) Take 1 Tablet by mouth in the morning and 1 Tablet before bedtime. 180 Tablet 3 024 Active Additional Information Patient not taking.Reported on 06/02/2024 Folic Acid 1 MG Oral TabletIndications :Arthritis, rheumatoid ([facility]) TAKE 1 TABLET BY MOUTH [...] Hour (toPROL XL)Indications:NS VT (nonsustained ventricular tachycardia) ([facility]),Non-ischemi c cardiomyopathy ([facility]),Chronic HFrEF (heart failure with reduced ejection fraction) ([facility]) Take 1 Tablet by mouth in the morning and 1 Tablet before bedtime. 180 Tablet 1 Active Furosemide 20 MG Oral Tablet (Lasix)Indication s:FREDY (acute kidney injury) ([facility]),Hyponatremi a Take 1 Tablet by mouth in the morning and 1 Tablet before bedtime. 60 Tablet 5 024 Active Urea 15 GM Oral Packet (Ure-Na)Indicatio ns:FREDY (acute kidney injury) ([facility]),Hyponatremi a Take 15 g by mouth in the morning and 15 g before bedtime. 60 Packet 5 024 Active ampicillin-sulbac naylor IV IJ (AMBULATORY)Indic ations:Osteomyeli tis of symphysis pubis ([facility]) Administer 3 g intravenously every 6 hours. 348 g 024 2023 Active Clopidogrel Bisulfate 75 MG Oral Tablet (pLAVix) TAKE 1 TABLET BY MOUTH EVERY DAY IN THE MORNING 90 Tablet 3 Active vancomycin IV IV (AMBULATORY) Administer 1,250 mg intravenously daily for 21 days. Vancomycin Dose per Pharmacy for Goal AUC 400-600 mg/L/hr Do not start before June 22, 2024. 26.25 g 2023 Active vancomycin IV IV (AMBULATORY) Administer 1,750 mg intravenously daily. Vancomycin Dose per Pharmacy for Goal AUC 400-600 mg/L/hr 59.5 g 2023 Discontinued Hospital, Clinic, or Other Facility Administered Medication Ordered Dose Route Frequency Start Date End Date Status NSS 65 mL with Ampicillin-Sulbact am 3 g INFUSION CENTRAL IV Q6H 06/20/2024 4 Active NSS 335 mL with Vancomycin 1,750 mg INFUSION 1750 mg CENTRAL IV Q24H 06/15/2024 4 Discontinued documented as of this encounter (statuses as of 06/21/2024) Active Problems Problem Noted Date Diagnosed Date [...] glucose 12/16/2005 Macular degeneration 12/02/1999 DISC DIS [id number] documented as of this encounter (statuses as of 06/21/2024) Resolved Problems Problem Noted Date Diagnosed Date [...] colonoscopy in 5 years ARTHRITIS,RHEUMATOID 07/07/2006 016 [id number] 07/07/200611/01 Overview (11/16/2009): Renamed Per Clinical Trials Billing Project. Pt is a participant in the [employer] (Consortium of Rheumatology Researchers [place]) national data collection study. For further information please call Dr Hari Clark or Julia White RN, CCRC at [phone] [facility] RESEARCH OTHER*[id number] 07/07/2006 01/28/2010 Overview (11/16/2009): Renamed Per Clinical Trials Billing Project. Pt is a participant in the [employer] (Consortium of Rheumatology [place] national data collection study. For further information please call Dr Hari Clark or Julia White RN, CCRC at [phone] ADVANCE DIRECTIVE INFORMATION 05/19/2006 06/06/2024 Overview (05/19/2006): Yes-advised to bring copy in to be scanned into EMR. Hearing loss 12/02/1999 03/29/2013 documented as of this encounter (statuses as of 06/21/2024) Immunizations Name Administration Dates Next Due COVID-19 [...] documented in this encounter Progress Notes * Sheila Mcarthur, [facility] - 06/21/2024 6:46 AM EST [facility] OUTPATIENT PHARMACOKINETIC CONSULT [address] [place] [address] Name: Markus Wharton Date: 06/21/2024 Time: 6:49 AM Bacteria being treated: Corynebacterium spp/ streptococcus spp. Source of infection: osteomyelitis Medications being managed: vancomycin Current regimen: Vancomycin 1750 mg IV every 24 hours Labs: (reviewed as indicated below) Latest Reference Range & Units 06/20/24 08:29 Vancomycin Random 10.0 - 20.0 ug/mL 20.6 Latest Reference Range & Units 06/20/24 08:29 CREATININE 0.6 - 1.2 mg/dL 1.1 [facility] Summary: [employer] Pharmacokinetics Note Drug: Vancomycin Pharmacokinetic target: AUC24 (range) 400-600 mg/L.hr Current regimen: 1750 mg IV every 24 hours Recent measured serum creatinine values: 06/20/2024 08:29 1.1 mg/dL 06/13/2024 08:45 0.9 mg/dL 06/08/2024 09:15 1.1 mg/dL Assessment: Analysis of the most recent level(s) using [employer] gives the following patient-specific pharmacokinetic parameters: CL: 2.38 L/hr V: 62.2 L T1/2: 19.3 hours Using these values, the current regimen of Vancomycin 1750 mg IV every 24 hours is predicted to result in a steady-state trough of 20.8 mg/L and AUC24 of 729 mg/L.hr. At this time we recommend a regimen of 1250 mg IV every 24 hours, which is predicted to result in a steady-state trough of 15.8 mg/Land AUC24 of 549 mg/L.hr. Plan: DECREASE TO Vancomycin 1750 mg IV daily starting on 06/22/24 Next labs - CBC w/diff, CMP, CRP and vancomycin trough on Thursday06/27/24 Will review on 06/27/24 Additional recommendations: Monitor renal function, fluid status and compliance closely. Expected end date: 07/13/24 Next scheduled Infectious Disease follow up appointment: 07/07/24 Contact info for questions/concerns: [facility] at [phone] Sheila Mcarthur Clinical Pharmacist [facility] 06/21/2024, 6:55 AM Electronically signed by Sheila Mcarthur [facility] at 06/21/2024 7:02 AM EST documented in this encounter Plan of Treatment Upcoming Encounters Date Type Department Care Team (Late st Contact Info) Description 06/27/2024 2:30 PM EST Telemedicine Hematology/Oncology [facility] [address] [facility] [phone] Korin Fisher CRNP [address] [place], [place] [address] [address] 06/28/2024 2:15 PM EST Procedure Only Urology, [facility] 132 [facility] [place] [address] Vinay Sexton MD [address] [place] [address] 07/07/2024 10:20 AM EST Office Visit Infectious Disease, [facility] [address] [facility] [phone] Mona Bland MD [address] [place] [address] 07/18/2024 1:20 PM EST Office Visit Rheumatology [address] [place] [address] Mendel Wilson MD [address] [place] [address] [place] [address] 07/21/2024 2:30 PM EST Office Visit Cardiology, [facility] 132 [place] [address] Chiara Meyer CRNP 132 [place] [address] 09/08/2024 3:40 PM EST Office Visit Nephrology, [address] [address] Bryson Ellis MD [address] [place] [address] 10/17/2024 10:30 AM EDT Office Visit Cardiology, [facility] [address] [facility] [place] [address] Dmitri Greenfield DO 132 [place] [address] 03/21/2025 11:45 AM EDT Telemedicine Urology, [facility] [address] [place] [address] Vinay Sexton MD [facility] [place] [phone] Scheduled Procedures Name Priority Associated Diagnoses Date/Ti [...] 06/08/2024, Additional history exists HbA1c 06/02/2025 06/02/2024, 12/2023, 06/22/2023, Additional history exists CKD PHOS USE SMARTSET 18766 06/06/202511/2023, 06/05/2024, 06/04/2024, Additional history exists CKD HGB USE SMARTSET 45638 06/20/202506/20, 06/20/2024, 06/13/2024, Additional history exists DTap/Tdap [...] D LEVEL ONCE IN A LIFETIME-USE SMARTSET# 18308 Completed 03/21/2024, 12/25/2023, 05/27/2021, Additional history exists [...] Discussed due to patient's condition Care Teams Process Control Tech Relationship Specialty Start Date End Date Rhianna Huitron DO [address] [facility] [place] [address] PCP - General Family Medicine 07/11/19 documented as of this encounter
--- OUTSIDE RECORDS SUMMARY | 2024-11-18 02:21 | External Medical Summary | Summary of Care ---
Author Name Unknown Organization [facility] Address [address] [place] [address] Phone [phone] Care Team Providers Care Meat Boner And Slicer Name Role Phone Rhianna Huitron DO Primary Care Provider Encounter Details Date Type Department Care Team (Late st Contact Info) Description 06/16/2024 Orders Only [facility] HOME RX [address] [place] [address] Mary Page MD [address] [place] [address] Allergies Active Allergy Reactions Criticality Noted Date Comments Brent Inhibitors Cough Low 11/26/2017 Alendronate Sodium Muscle pain 04/11/2019 Heartburn, constipation, joint pain Misoprostol Diarrhea 08/08/2003 Niacin Er (Antihyperlipidemic) 11/26/2010 Gas, hot flashes Pollen 01/01/2018 Watery eyes, sneezing Pravastatin 02/26/2007 Upset stomach, all .Statins Simvastatin 02/26/2007 Upset stomach documented as of this encounter (statuses as of 06/17/2024) Medications ASPIR-81 81 MG PO TBEC 1 TABLET DAILY 0 006 Active Acetaminophen 325 MG Oral Tablet (Tylenol) 2 Tablets. 02/01/2 024 Active Magnesium Oxide -Mg Supplement 400 (240 Mg) MG Oral Tablet (Mag-Ox) Take 1 Tablet by mouth in the morning and 1 Tablet before bedtime. 180 Tablet 3 Active Additional Information Patient not taking.Reported on 06/02/2024 Folic Acid 1 MG Oral TabletIndications :Arthritis, rheumatoid ([facility]) TAKE 1 TABLET BY MOUTH EVERY DAY [...] IN THE MORNING 90 Tablet 3 Active Albuterol Sulfate HFA 108 (90 Base) MCG/ACT Inhalation Aerosol Solution Inhale 1 Puff by mouth every 6 hours as needed for Wheezing. Active Melatonin 3 MG Oral Tablet Take 2 Tablets by mouth at bedtime. Active Metoprolol Succinate ER 25 MG Oral Tablet Extended Release 24 Hour (toPROL XL)Indications:NS VT (nonsustained ventricular tachycardia) ([facility]),Non-ischemi c cardiomyopathy ([facility]),Chronic HFrEF (heart failure with reduced ejection fraction) ([facility]) Take 1 Tablet by mouth in the morning and 1 Tablet before bedtime. 180 Tablet 1 Active Furosemide 20 MG Oral Tablet (Lasix)Indication s:FREDY (acute kidney injury) ([facility]),Hyponatremi a Take 1 Tablet by mouth in the morning and 1 Tablet before bedtime. 60 Tablet 5 Active Urea 15 GM Oral Packet (Ure-Na)Indicatio ns:FREDY (acute kidney injury) ([facility]),Hyponatremi a Take 15 g by mouth in the morning and 15 g before bedtime. 60 Packet 5 Active vancomycin IV IV (AMBULATORY) Administer 1,750 mg intravenously daily. Vancomycin Dose per Pharmacy for Goal AUC 400-600 mg/L/hr 59.5 g 024 2023 Active ampicillin-sulbac naylor IV IJ (AMBULATORY)Indic ations:Osteomyeli tis of symphysis pubis ([facility]) Administer 3 g intravenously every 6 hours. 348 g 024 2023 Active Clopidogrel Bisulfate 75 MG Oral Tablet (Plavix) Take 1 Tablet by mouth in the morning. 90 Tablet 3 024 2023 Discontinued Hospital, Clinic, or Other Facility Administered Medication Ordered Dose Route Frequency Start Date End Date Status NSS 335 mL with Vancomycin 1,750 mg INFUSION 1750 mg CENTRAL IV Q24H 06/15/2024 07/14/2024 Active NSS 65 mL with Ampicillin-Sulbactam 3 g INFUSION CENTRAL IV Q6H 06/16/2024 07/13/2024 Active documented as of this encounter (statuses as of 06/17/2024) Active Problems Problem Noted Date Diagnosed Date [...] glucose 12/16/2005 Macular degeneration 12/02/1999 DISC DIS [id number] documented as of this encounter (statuses as of 06/17/2024) Resolved Problems Problem Noted Date Diagnosed Date [...] colonoscopy in 5 years ARTHRITIS,RHEUMATOID 07/07/2006 016 [id number] 07/07/200611/01 Overview (11/16/2009): Renamed Per Clinical Trials Billing Project. Pt is a participant in the [employer] (Consortium of Rhe[place] national data collection study. For further information please call Dr Hari Clark or Julia White, RN, CCRC at [phone] [facility] RESEARCH OTHER*[id number] 07/07/2006 01/28/2010 Overview (11/16/2009): Renamed Per Clinical Trials Billing Project. Pt is a participant in the [employer] (Consortium of Rhe[place]ology [place] national data collection study. For further information please call Dr Hari Clark or Julia White, RN, CCRC at [phone] ADVANCE DIRECTIVE INFORMATION 05/19/2006 06/06/2024 Overview (05/19/2006): Yes-advised to bring copy in to be scanned into EMR. Hearing loss 12/02/1999 03/29/2013 documented as of this encounter (statuses as of 06/17/2024) Immunizations Name Administration Dates Next Due COVID-19 mRNA, LNP-s, No Pre serve, 2-Dose Series ([employer]) 06/14/2021,10/10/2020,09/12/2020 COVID-19, LNP-s, No Preserve , Yousuf-sucrose, [...] Contact Info) Description 06/20/2024 10:00 AM EST Pharmacy Home Infusion, [place] [address] [place] [address] Mgmt, [employer] Pharmacist Antig [address] [place] [address] 06/20/2024 11:10 AM EST Telemedicine [address] [phone] Rhianna Huitron [address] [place] [address] 06/27/2024 2:30 PM EST Telemedicine Hematology/Oncology [facility] [address] [place] [address] Korin Fisher CRNP [address] [place] [address] 06/28/2024 2:15 PM EST Procedure Only Urology, [facility] 132 [facility] [place] [address] Vinay Sexton MD [address] [place] [address] 07/07/2024 10:20 AM EST Office Visit Infectious Disease, [facility] [address] [place] [phone] Mona Bland MD [address] [place] [address] 07/18/2024 1:20 PM EST Office Visit Rheumatology [facility] [address] [place] [address] Mendel Wilson MD [address] [facility] [place] [address] 07/21/2024 2:30 PM EST Office Visit Cardiology, [facility] 132 [facility] [place] [address] Chiara Meyer CRNP 132 [facility] [place] [address] 09/08/2024 3:40 PM EST Office Visit Nephrology, [address] [address] Bryson Ellis MD [address] [place] [address] 10/17/2024 10:30 AM EDT Office Visit Cardiology, [facility] 132 [facility] [place] [address] Dmitri Greenfield DO 132 [facility] [place] [address] 03/21/2025 11:45 AM EDT Telemedicine Urology, [facility] 132 [facility] [place] [address] Vinay Sexton MD [address] [facility] [address] Scheduled Procedures Name Priority Associated Diagnoses Date/Ti me COLONOSCOPY FLEXIBLE PROXIMAL DIAGNOSTIC Recall Hx of colonic polyps Health Maintenance Due Date Last Done Comments Adult Wellness Visit 03/16/2020 03/16/2019 DXA Scan 01/10/2021 01/10/2019, 1212/2005, 07/07/2006 Depression Screening 03/13/2021 03/13/2020 Albumin/Creatinine Ratio 04/10/2023 04/10/2022, 10/2006 *BISPHONATE OR OTHER ACCEPTABLE MEDICATION NEEDED FOR OSTEOPOROSIS (REFER TO SMARTSET #1146) 04/29/2023 Colonoscopy 01/22/2024 01/21/2019, 01/02, 05/10/2013, Additional history exists COVID-19 Vaccine ( season) 2024 05/23/2022, 12/25/2021, 12/25/2021, Additional history exists GFR 12/11/2024 06/13/2024, 01/2024, 06/06/2024, Additional history exists HbA1c 06/02/2025 06/02/2024, 12/2023, 06/22/2023, Additional history exists CKD PHOS USE SMARTSET 96197 06/06/202511/2023, 06/05/2024, 06/04/2024, Additional history exists CKD HGB USE SMARTSET 36152 06/13/202506/13, 06/13/2024, 06/08/2024, Additional history exists DTap/Tdap Vaccines (3 - [...] D LEVEL ONCE IN A LIFETIME-USE SMARTSET# 76902 Completed 03/21/2024, 12/25/2023, 05/27/2021, Additional history exists [...] Discussed due to patient's condition Care Teams Meat Boner And Slicer Relationship Specialty Start Date End Date Rhianna Huitron DO [address] [place] [address] PCP - General Family Medicine 07/11/19 documented as of this encounter
--- OUTSIDE RECORDS SUMMARY | 2024-11-18 02:21 | External Medical Summary | Summary of Care ---
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; Osteomyelitis of symphysis pubis (HCC); Prostate cancer (HCC); Rheumatoid arthritis involving multiple sites with positive rheumatoid factor (HCC) Allergies Active Allergy Reactions Criticality Noted Date Comments Brent Inhibitors Cough Low 11/26/2017 Alendronate Sodium Muscle pain 04/11/2019 Heartburn, constipation, joint pain Misoprostol Diarrhea 08/08/2003 Niacin Er (Antihyperlipidemic) 11/26/2010 Gas, hot flashes Pollen 01/01/2018 Watery eyes, sneezing Pravastatin 02/26/2007 Upset stomach, all .Statins Simvastatin 02/26/2007 Upset stomach documented as of this encounter (statuses as of 06/20/2024) Medications ASPIR-81 81 MG PO TBEC 1 [...] (toPROL XL)Indications:NSV T (nonsustained ventricular tachycardia) ([facility]),Non-ischemic cardiomyopathy (HCC),Chronic HFrEF (heart failure with reduced ejection fraction) ([facility]) Take 1 Tablet by mouth in the morning and 1 Tablet before bedtime. 180 Tablet 1 05/31/20 24 Active Furosemide 20 MG Oral Tablet (Lasix)Indications :FREDY (acute kidney injury) ([facility]),Hyponatremia Take 1 Tablet by mouth in the morning and 1 Tablet before bedtime. 60 Tablet 5 05/31/20 24 Active Urea 15 GM Oral Packet (Ure-Na)Indication s:FREDY (acute kidney injury) (HCC),Hyponatremia Take 15 g by mouth in the morning and 15 g before bedtime. 60 Packet 5 05/31/20 24 Active vancomycin IV IV (AMBULATORY) Administer 1,750 mg intravenously daily. Vancomycin Dose per Pharmacy for Goal AUC 400-600 mg/L/hr 59.5 g 06/09/20 24 024 Active ampicillin-sulbact am IV IJ (AMBULATORY)Indica tions:Osteomyeliti s of symphysis pubis (HCC) Administer 3 g intravenously every 6 hours. 348 g 06/14/20 24 Active Clopidogrel Bisulfate 75 MG Oral Tablet (pLAVix) TAKE 1 TABLET BY MOUTH EVERY DAY IN THE MORNING 90 Tablet 3 06/16/20 Active Hospital, Clinic, or Other Facility Administered Medication Ordered Dose Route Frequency Start Date End Date Status NSS 335 mL with Vancomycin 1,750 mg INFUSION 1750 mg CENTRAL IV Q24H 06/15/2024 07/14/2024 Active NSS 65 mL with Ampicillin-Sulbactam 3 g INFUSION CENTRAL IV Q6H 06/20/2024 07/13/2024 Active documented as of this encounter (statuses as of 06/20/2024) Active Problems Problem Noted Date Diagnosed Date [...] glucose 12/16/2005 Macular degeneration 12/02/1999 DISC DIS [id number] documented as of this encounter (statuses as of 06/20/2024) Resolved Problems Problem Noted Date Diagnosed Date [...] colonoscopy in 5 years ARTHRITIS,RHEUMATOID 07/07/2006 016 [id number] 07/07/200611/01 Overview (11/16/2009): Renamed Per Clinical Trials Billing Project. Pt is a participant in the [employer] ([employer]ortium [employer] [place]) national data collection study. For further information please call Dr Hari Clark or uJlia White, RN, CCRC at [phone] [employer] RESEARCH OTHER*[id number] 07/07/2006 01/28/2010 Overview (11/16/2009): Renamed Per Clinical Trials Billing Project. Pt is a participant in the [employer] ([employer]ortium of [employer] [place]) national data collection study. For further information please call Dr Hari Clark or Julia White RN, CCRC at [phone] ADVANCE DIRECTIVE INFORMATION 05/19/2006 06/06/2024 Overview (05/19/2006): Yes-advised to bring copy in to be scanned into EMR. Hearing loss 12/02/1999 03/29/2013 documented as of this encounter (statuses as of 06/20/2024) Immunizations Name Administration Dates Next Due COVID-19 [...] this encounter Progress Notes * Rhianna Huitron, DO - 06/20/2024 11:27 AM EST Patient location: HOME. I was in a hospital or clinic location. After connecting through televideo,patient was verified with two unique identifiers. Patient (or authorized legal sales representative printing supplies) was then informed that this was a Telemedicine visit and being conducted confidentially over secure lines. Methods to assure confidentiality were taken. Patient acknowledged consent and understanding of pr ivacy and security of the Telemedicine visit. The patient agreed to participate. Subjective: Markus Wharton is a 79 year old male. No chief complaint on file. HPI: 79 year old male presents on video visit for a hospital follow-up. He has a complicated medical hx, he has hx of Hypertension, prostate cancer. With mets and s/p palliative radiation and lupron, hx of BPH, hx of chronic heart failure, Rheumatoid arthritis, prediabetes, Dyslipidemia and has in urinary catheter. He was admitted on 05/31 for low sodium as an outpatient. His sodium was 120. The night at [facility], there was issues with his catheter and nothing was draining. Then he went into Septic Shock. He was then transferred to [place]. He had fistula that developed, and a urine infection, and in turn was found to have osteomyelitis of the pubic symphysis bone along with an abscess as swell. He was hypotense and febrile . During his decline he was found to be tachycardia, and question as to whetheror not he was in A fib. His HR was up to 140s, but decreased after one IV dose of metoprolol. Right now he has a PICC line and getting IV Antibiotics. He does have follow ups with ID, urology and cardiology. To note IR did aspirate the abscess on 06/06 Home nursing was there today and his BP was 140/60 and his pulse ox was 94 %. He has lost weight heis down to 266 lbs. Reports pressure sores on his back side, but they are going away. The home nurse was using duoderm but has not used this. He is using Calmoseptine. He sees Dr Sexton next week and plans to change the catheter. Having some itching eyes and puffiness. He wanted to know if he could use flonase with his medications, and I told him that he could. Reviewed all medications, and consult notes from the hospital. Currently he has a ZIO. He is off methotrexate for now due to acute infection. Having some hand pain. From urology: Puboprostatic Fistula: Blood and urine cx from [facility]. U cx (05/31) OSH: Streptococcus dysgalactiae, C striatum/simulans sp U cx (06/01) OSH: 3 types of organisms Evaluated by Urology. No interventions, maintain Ingram catheter and follow up as an outpatient ID following - plan for ceftriaxone/vancomycin till 07/13 with weekly labs. Follow up finalized cultures from IR aspirate. No complaints today other than being tired. 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 60 Packet 5 vancomycin IV IV (AMBULATORY) Administer 1,750 mg intravenously daily. Vancomycin Dose per Pharmacyfor Goal AUC 400-600 mg/L/hr 59.5 g 0 ampicillin-sulbactam IV IJ (AMBULATORY) Administer 3 g intravenously every 6 hours. 348 g 0 Clopidogrel Bisulfate 75 MG Oral Tablet (pLAVix) TAKE 1 TABLET BY MOUTH EVERY DAY IN THE MORNING 90Tablet 3 Current Facility-Administered Medications Medication Dose Route Frequency Provider Last Rate Last Admin NSS 335 mL with Vancomycin 1,750 mg INFUSION 1,750 mg Central IV Q24H NSS 65 mL with Ampicillin-Sulbactam 3 g INFUSION Central IV Q6H Review of patient's allergies indicates: Allergen Reactions Fosamax [Alendronate Sodium] Muscle pain Heartburn, constipation, joint pain Misoprostol Diarrhea Niaspan [Niacin Er (Antihyperlipidemic)] Gas, hot flashes Pollen Watery eyes, sneezing Pravastatin Upset stomach, all .Statins Simvastatin Upset stomach Brent Inhibitors Cough Objective: There were no vitals taken for this visit. Physical Exam: General: alert, healthy, and no distress Lungs: normal respiratory rate and rhythm ASSESSMENT/PLAN: HTN, goal below 130/80 (Primary) ==stable. Hyponatremia Sodium pending today. 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 Prostate cancer (HCC) Keep urology appt Rheumatoid arthritis involving multiple sites with positive rheumatoid factor (HCC) Off methotrexate for now. Follow Up: Return in about 6 months (around 12/18/2024). I spent a total of 40-54 minutes (exact time 40 mins) on the date of service in preparation, delivery, and documentation of the care provided to Markus Wharton excluding any time spent in the performance of separately billed services or time spent by another provider/QHP. Rhianna Huitron DO documented in this encounter Plan of Treatment Upcoming Encounters Date Type Department Care Team (Late st Contact Info) Description 06/27/2024 2:30 PM EST Telemedicine Hematology/Oncology [facility] [address] [facility] [place] [phone] Korin Fisher CRNP [address] [place] [address] 06/28/2024 2:15 PM EST Procedure Only Urology, [facility] [address] [facility] [place] [address] Vinay Sexton MD [address] [place] [address] 07/07/2024 10:20 AM EST Office Visit Infectious Disease, [facility] [address] [place] [phone] Mona Bland MD [address] [place] [address] 07/18/2024 1:20 PM EST Office Visit Rheumatology [address] [place] [address] Mendel Wilson MD [address] [employer] [facility] [place] [address] 07/21/2024 2:30 PM EST Office Visit Cardiology, [facility] [address] [place] [address] Chiara Meyer CRNP [address] [place] [address] 09/08/2024 3:40 PM EST Office Visit Nephrology, [facility] [address] [place] [address] Bryson Ellis MD [address] [place], [place] [id number] 10/17/2024 10:30 AM EDT Office Visit Cardiology, [facility] [address] [facility] [address] Dmitri Greenfield DO [address] [place] [address] 03/21/2025 11:45 AM EDT Telemedicine Urology, [facility] [address] [facility] [place] [address] Vinay Sexton MD [address] [place] [address] Scheduled Procedures Name Priority Associated Diagnoses Date/Ti [...] 06/06/2024, Additional history exists HbA1c 06/02/2025 06/02/2024, 0 12/2023, 06/22/2023, Additional history exists CKD PHOS USE SMARTSET 45860 06/06/20250 11/2023, 06/05/2024, 06/04/2024, Additional history exists CKD HGB USE SMARTSET 40257 06/13/202506/13, 06/13/2024, 06/08/2024, Additional history exists DTap/Tdap [...] D LEVEL ONCE IN A LIFETIME-USE SMARTSET# 04340 Completed 03/21/2024, 12/25/2023, 05/27/2021, Additional history exists [...] goal below 130/80- Primary Unspecified essential hypertension Hyponatremia Hyposmolality and/or hyponatremia Pelvic abscess in male (HCC) 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
--- OUTSIDE RECORDS SUMMARY | 2024-11-18 02:21 | External Medical Summary ---
Author Name Unknown Address Unknown Organization K01:LABORATORY [address] [address] Laboratory Report Ordering Provider Test Date Status DESIREE STEPHENS 06/20/2024 08:29:00 Final Observation Date Value Abnormality Reference (Units ) Status WBC, Total 06/20/2024 08:29:00 7.68 4.00-10.80 (K/uL) Final RBC 06/20/2024 08:29:00 3.67 4.50-5.25 (M/uL) Final Hemoglobin 06/20/2024 08:29:00 9.7 Below low normal 14.0-16.8 (g/dL) Final HCT 06/20/2024 08:29:00 32.3 Below low normal 40.0-48.4 (%) Final MCV 06/20/2024 08:29:00 88.0 82.0-99.5 (fL) Final MCH 06/20/2024 08:29:00 26.4 27.0-34.0 (pg) Final MCHC 06/20/2024 08:29:00 30.0 32.0-36.0 (g/dL) Final RDW 06/20/2024 08:29:00 18.4 11.5-15.5 (%) Final Platelets 06/20/2024 08:29:00 320 140-400 (K/uL) Final MPV 06/20/2024 08:29:00 10.5 6.6-11.1 (fL) Final Nucleated erythrocytes/100 leukocytes [Ratio] in Blood by Automated count 06/20/2024 08:29:00 0 <=0 (/100 WBCs) Final Performing Location [facility] [address] [facility] [address]
--- OUTSIDE RECORDS SUMMARY | 2024-11-18 02:21 | External Medical Summary | Summary of Care ---
Author Name Unknown Organization [facility] Address [address] [place] [address] Phone [phone] Care Team Providers Care Colorist Dyer Name Role Phone Rhianna Huitron DO Primary Care Provider [phone] Reason for Visit * Reason Comments Outpatient Testing Encounter Details Date Type Department Care Team (Late st Contact Info) Description 06/20/2024 9:50 AM EST Laboratory Laboratory, [facility] [address] [place] [address] [facility], [facility] [address] [place] [address] Arrived Allergies Active Allergy Reactions Criticality [...] Hour (toPROL XL)Indications:NSV T (nonsustained ventricular tachycardia) ([facility]),Non-ischemic cardiomyopathy (HCC),Chronic HFrEF (heart failure with reduced ejection fraction) ([facility]) Take 1 Tablet by mouth in the morning and 1 Tablet before bedtime. 180 Tablet 1 05/31/20 24 Active Furosemide 20 MG Oral Tablet (Lasix)Indications :FREDY (acute kidney injury) ([facility]),Hyponatremia Take 1 Tablet by mouth in the morning and 1 Tablet before bedtime. 60 Tablet 5 05/31/20 24 Active Urea 15 GM Oral Packet (Ure-Na)Indication s:FREDY (acute kidney injury) ([facility]),Hyponatremia Take 15 g by mouth [...] glucose 12/16/2005 Macular degeneration 12/02/1999 DISC DIS [id number] documented as of this encounter (statuses as [...] colonoscopy in 5 years ARTHRITIS,RHEUMATOID 07/07/2006 016 [id number] 07/07/200611/01 Overview (11/16/2009): Renamed Per Clinical Trials Billing Project. Pt is a participant in the [employer] (Consortium of [employer] [place] national data collection study. For further information please call Dr Hari Clark or Julia White, RN, CCRC at [phone] [facility] RESEARCH OTHER*[id number] 07/07/2006 01/28/2010 Overview (11/16/2009): Renamed Per Clinical Trials Billing Project. Pt is a participant in the [employer] ([employer]ortium [employer] [place] national data collection study. For further information please call Dr Hari Clark or Julia White, RN, CCRC at [phone] ADVANCE DIRECTIVE INFORMATION 05/19/2006 06/06/2024 Overview (05/19/2006): [...] 06/20/2024 10:00 AM EST Pharmacy [facility], [place] [address] [place] [address] Mgmt, [employer] Pharmacist Antig [address] [place] [address] 06/20/2024 11:10 AM EST Telemedicine [place] [address] [place] [phone] Rhianna Huitron DO [address] [place] [address] 06/27/2024 2:30 PM EST Telemedicine Hematology/Oncology [facility] [address] [place] [phone] Korin Fisher CRNP [address] [place] [address] 06/28/2024 2:15 PM EST Procedure Only Urology, [facility] [address] [facility] [place] [address] Vinay Sexton MD [address] [place] [address] 07/07/2024 10:20 AM EST Office Visit Infectious Disease, [facility] [address] [place] [phone] Mona Bland MD [address] [place] [address] 07/18/2024 1:20 PM EST Office Visit Rheumatology [place] [address] [facility] [place] [address] Mendel Wilson MD [address] [facility] [place] [address] 07/21/2024 2:30 PM EST Office Visit Cardiology, [facility] [address] [facility] [place] [address] Chiara Meyer CRNP [address] [place] [address] 09/08/2024 3:40 PM EST Office Visit Nephrology, [address] [address] Bryson [place] MD [address] [place] [address] 10/17/2024 10:30 AM EDT Office Visit Cardiology, [facility] [address] [facility] [place] [address] Dmitri Greenfield, [address] [place] [address] 03/21/2025 11:45 AM EDT Telemedicine Urology, [facility] [address] [facility] [place] [address] Vinay Sexton MD [address] [place] [address] Scheduled Procedures Name Priority Associated Diagnoses Date/Ti [...] Additional history exists CKD PHOS USE SMARTSET 41359 06/06/202511/2023, 06/05/2024, 06/04/2024, Additional history exists CKD HGB USE SMARTSET 54038 06/13/202506/13, 06/13/2024, 06/08/2024, Additional history exists DTap/Tdap [...] D LEVEL ONCE IN A LIFETIME-USE SMARTSET# 39175 Completed 03/21/2024, 12/25/2023, 05/27/2021, Additional history exists [...] Discussed due to patient's condition Care Teams Colorist Dyer Relationship Specialty Start Date End Date Rhianna Huitron DO [address] [place] [facility] [place] [address] PCP - General Family Medicine 07/11/19 documented as of this encounter
--- OUTSIDE RECORDS SUMMARY | 2024-11-18 02:21 | External Medical Summary ---
Author Name Unknown Address Unknown Organization K01:LABORATORY [facility] [place] - [address] [place] [address] Laboratory Report Ordering Provider Test Date Status DESIREE STEPHENS 06/27/2024 13:05:39 Final Observation Date Value Abnormality Reference (Units ) Status BUN 06/27/2024 13:05:39 15 6-20 (mg/dL) Final Creatinine 06/27/2024 13:05:39 1.1 0.6-1.2 (mg/dL) Final Glomerular filtration rate/1.73 sq M.predicted [Volume Rate/Area] in Serum, Plasma or Blood by Creatinine-based formula (CKD-EPI) 06/27/2024 13:05:39 69 >=60 (mL/min) Final eGFR is calculated based on the CKD-EPI 2020 equation. Sodium 06/27/2024 13:05:39 133 Below low normal 135 -146 (mmol/L) Final Potassium 06/27/2024 13:05:39 3.8 3.5-5.1 (m mol/L) Final Cl 06/27/2024 13:05:39 93 Below low normal 98- 107 (mmol/L) Final CO2 06/27/2024 13:05:39 26 22-32 (mmo l/L) Final Anion gap 06/27/2024 13:05:39 14 7-15 (mmol /L) Final Glucose 06/27/2024 13:05:39 158 Above high normal 70 -120 (mg/dL) Final Albumin 06/27/2024 13:05:39 3.1 Below low normal 3.8 -5.0 (g/dL) Final AST (Aspartate aminotransferase) 06/27/2024 13:05:39 14 10-50 (U/L) Fin al Alk Phos 06/27/2024 13:05:39 73 35-130 (U/ L) Final Bilirubin, Total 06/27/2024 13:05:39 0.2 <=1 .2 (mg/dL) Final Calcium 06/27/2024 13:05:39 8.9 8.4-10.2 ( mg/dL) Final Protein 06/27/2024 13:05:39 6.1 6.0-8.3 (g /dL) Final ALT (Alanine aminotransferase) 06/27/2024 13:05:39 9 Below low normal 10-50 (U/L) Final Performing Location LABORATORY [facility] [place] - [address] [facility] [address]
--- OUTSIDE RECORDS SUMMARY | 2024-11-18 02:21 | External Medical Summary | Summary of Care ---
Author Name Unknown Organization [facility] Address [address] [place] [address] Phone [phone] Care Team Providers Care Refrigeration Repair Supervisor Name Role Phone Rhianna Huitron DO Primary Care Provider [phone] Reason for Visit * Reason Comments Outpatient Testing Encounter Details Date Type Department Care Team (Late st Contact Info) Description 06/20/2024 9:50 AM EST Laboratory Laboratory, [place] [address] [place] [address] [facility] [address] [place] [address] Urinary tract infection; Atrophy of prostate; [...] Hour (toPROL XL)Indications:NSV T (nonsustained ventricular tachycardia) (HCC),Non-ischemic cardiomyopathy (HCC),Chronic HFrEF [...] for Goal AUC 400-600 mg/L/hr 59.5 g 11 024 Active ampicillin-sulbact am IV IJ (AMBULATORY)Indica tions:Osteomyeliti s of symphysis pubis (HCC) Administer 3 g intravenously every 6 hours. 348 g 06/14/20 Active Clopidogrel Bisulfate 75 MG Oral Tablet [...] glucose 12/16/2005 Macular degeneration 12/02/1999 DISC DIS [id number] documented as of this encounter (statuses as [...] colonoscopy in 5 years ARTHRITIS,RHEUMATOID 07/07/2006 016 [id number] 07/07/200611/01 Overview (11/16/2009): Renamed Per Clinical Trials Billing Project. Pt is a participant in the [employer] (Consortium of Rheumatology [employer] [place]) national data collection study. For further information please call Dr Hari Clark or Julia White, RN, CCRC at [phone] [facility] RESEARCH OTHER*[id number] 07/07/2006 01/28/2010 Overview (11/16/2009): Renamed Per Clinical Trials Billing Project. Pt is a participant in the [employer] (Consortium of Rheumatology [place]) national data collection study. For further information please call Dr Hari Clark or Julia White, RN, CCRC at [phone] ADVANCE DIRECTIVE INFORMATION 05/19/2006 06/06/2024 Overview (05/19/2006): [...] Date Author No 06/01/2024 11:43 PM EDT Lcuita Ledesma RN documented in this encounter Plan of Treatment Upcoming Encounters Date Type Department Care Team (Late st Contact Info) Description 06/27/2024 2:30 PM EST Telemedicine Hematology/Oncology [facility] 200 [facility] [place] [address] Korin Fisher CRNP [address] [place] [address] 06/28/2024 2:15 PM EST Procedure Only Urology, [facility] 132 [facility] [place] [address] Vinay Sexton MD [address] [place] [address] 07/07/2024 10:20 AM EST Office Visit Infectious Disease, [facility] [address] [place] [address] Mona Bland MD 100 [place] [address] 07/18/2024 1:20 PM EST Office Visit Rheumatology [address] [place] [address] Mendel Wilson MD [address] [place] [address] [place] [address] 07/21/2024 2:30 PM EST Office Visit Cardiology, [facility] 132 [facility] [place] [address] Chiara Meyer CRNP [address] [facility] [place] [address] 09/08/2024 3:40 PM EST Office Visit Nephrology, [facility] [address] [place] [address] Bryson Ellis MD 400 [place] [address] 10/17/2024 10:30 AM EDT Office Visit Cardiology, [facility] [address] [facility] [place] [address] Dmitri Greenfield DO [address] [place] [address] 03/21/2025 11:45 AM EDT Telemedicine Urology, [facility] 132 [facility] [place] [address] Vinay Sexton MD 27 [facility] [place] [address] Pending Results Name Type Priority Associated Diagnoses Date /Time COMPREHENSIVE METABOLIC PANEL Lab Routine Urinary tract infection Atrophy of prostate Peritoneal abscess (HCC) 06/20/2024 8:29 AM EST CBC WITH WBC DIFFERENTIAL Lab Routine Urinary tract infection Atrophy of prostate Peritoneal abscess (HCC) 06/20/2024 8:29 AM EST VANCOMYCIN TROUGH Lab Routine Urinary tract infection Atrophy of prostate Peritoneal abscess (HCC) 06/20/2024 8:29 AM EST CRP (INFLAMMATORY MARKER) Lab Routine Urinary tract infection Atrophy of prostate Peritoneal abscess (HCC) 06/20/2024 8:29 AM EST CBC Lab Routine Urinary tract infection Atrophy of prostate Peritoneal abscess (HCC) 06/20/2024 8:29 AM EST DIFFERENTIAL, AUTOMATED Lab Routine Urinary tract infection Atrophy of prostate Peritoneal abscess (HCC) 06/20/2024 8:29 AM EST Scheduled Procedures Name Priority Associated [...] Additional history exists CKD PHOS USE SMARTSET 72419 06/06/202511/2023, 06/05/2024, 06/04/2024, Additional history exists CKD HGB USE SMARTSET 88812 06/13/202506/13, 06/13/2024, 06/08/2024, Additional history exists DTap/Tdap [...] D LEVEL ONCE IN A LIFETIME-USE SMARTSET# 37311 Completed 03/21/2024, 12/25/2023, 05/27/2021, Additional history exists [...] Discussed due to patient's condition Care Teams Refrigeration Repair Supervisor Relationship Specialty Start Date End Date Rhianna Huitron DO [address] [place] [address] PCP - General Family Medicine 07/11/19 documented as of this encounter
--- OUTSIDE RECORDS SUMMARY | 2024-11-18 02:21 | External Medical Summary | Summary of Care ---
Author Name Unknown Organization [facility] Address [address] [place] [address] Phone [phone] Care Team Providers Care First Aid Attendant Name Role Phone Rhianna Huitron DO Primary Care Provider Reason for Visit * Reason Comments Outpatient Testing Encounter Details Date Type Department Care Team (Late st Contact Info) Description 06/20/2024 9:50 AM EST Laboratory Laboratory, [place] [address] [place] [address] [facility] [address] [place] [address] Urinary tract infection; Atrophy of [...] glucose 12/16/2005 Macular degeneration 12/02/1999 DISC DIS [id number] documented as of this encounter (statuses as [...] colonoscopy in 5 years ARTHRITIS,RHEUMATOID 07/07/2006 016 [id number] 07/07/200611/01 Overview (11/16/2009): Renamed Per Clinical Trials Billing Project. Pt is a participant in the [employer] (Consortium of Rheumatology [place] national data collection study. For further information please call Dr Hari Clark or Julia White, RN, CCRC at [phone] [facility] RESEARCH OTHER*[id number] 07/07/2006 01/28/2010 Overview (11/16/2009): Renamed Per Clinical Trials Billing Project. Pt is a participant in the [employer] (Consortium of Rheumatology Researchers [place] national data collection study. For further information please call Dr Hari Clark or Julia White, RN, CCRC at [phone] ADVANCE DIRECTIVE INFORMATION 05/19/2006 06/06/2024 Overview (05/19/2006): [...] Info) Description 06/20/2024 11:10 AM EST Telemedicine [facility] [address] [place] [phone] Rhianna Huitron DO [address] [place] [address] 06/27/2024 2:30 PM EST Telemedicine Hematology/Oncology [facility] 200 [place] [phone] Korin Fisher CRNP 400 [place] [address] 06/28/2024 2:15 PM EST Procedure Only Urology, [facility] 132 [facility] [place] [address] Vinay Sexton MD [address] [place] [address] 07/07/2024 10:20 AM EST Office Visit Infectious Disease, [facility] 400 [place] [address] Mona Bland MD 100 [place] [address] 07/18/2024 1:20 PM EST Office Visit Rheumatology [address] [place] [address] Mendel Wilson MD [address] [facility] [place] [address] 07/21/2024 2:30 PM EST Office Visit Cardiology, [facility] [address] [facility] [place] [address] Chiara Meyer CRNP 132 [facility] [place] [address] 09/08/2024 3:40 PM EST Office Visit Nephrology, [facility] [address] [place] [address] Bryson Ellis MD [address] [place] [address] 10/17/2024 10:30 AM EDT Office Visit Cardiology, [facility] 132 [facility] [place] [address] Dmitri Greenfield, 132 [facility] [place] [address] 03/21/2025 11:45 AM EDT Telemedicine Urology, [facility] 132 [facility] [place] [address] Vinay Sexton MD [address] [place] [address] Pending Results Name Type Priority Associated Diagnoses [...] Additional history exists CKD PHOS USE SMARTSET 71841 06/06/202511/2023, 06/05/2024, 06/04/2024, Additional history exists CKD HGB USE SMARTSET 09312 06/13/202506/13, 06/13/2024, 06/08/2024, Additional history exists DTap/Tdap [...] D LEVEL ONCE IN A LIFETIME-USE SMARTSET# 81921 Completed 03/21/2024, 12/25/2023, 05/27/2021, Additional history exists [...] Discussed due to patient's condition Care Teams First Aid Attendant Relationship Specialty Start Date End Date Rhianna Huitron DO [address] [facility] [place] [address] PCP - General Family Medicine 07/11/19 documented as of this encounter
--- OUTSIDE RECORDS SUMMARY | 2024-11-18 02:21 | External Medical Summary | Summary of Care ---
Author Name Unknown Organization [facility] Address [address] [place] [address] Phone [phone] Care Team Providers Care Expediter Name Role Phone Rhianna Huitron DO Primary Care Provider Encounter Details Date Type Department Care Team (Late st Contact Info) Description 06/20/2024 Orders Only [facility] [address] [place] [address] aMry Page MD [address] [place] [address] Allergies Active Allergy Reactions Criticality [...] Hour (toPROL XL)Indications:NS VT (nonsustained ventricular tachycardia) ([facility]),Non-ischemi c cardiomyopathy ([facility]),Chronic HFrEF (heart failure with reduced ejection fraction) ([facility]) Take 1 Tablet by mouth in the morning and 1 Tablet before bedtime. 180 Tablet 1 Active Furosemide 20 MG Oral Tablet (Lasix)Indication s:FREDY (acute kidney injury) ([facility]),Hyponatremi a Take 1 Tablet by mouth in the morning and 1 Tablet before bedtime. 60 Tablet 5 024 Active Urea 15 GM Oral Packet (Ure-Na)Indicatio ns:FREDY (acute kidney injury) ([facility]),Hyponatremi a Take 15 g by mouth in the morning and 15 g before bedtime. 60 Packet 5 024 Active ampicillin-sulbac naylor IV IJ (AMBULATORY)Indic ations:Osteomyeli tis of symphysis pubis ([facility]) Administer 3 g intravenously every 6 hours. 348 g 024 2023 Active Clopidogrel Bisulfate 75 MG Oral Tablet (pLAVix) TAKE 1 TABLET BY MOUTH EVERY DAY IN THE MORNING 90 Tablet 3 Active vancomycin IV IV (AMBULATORY) Administer 1,750 mg intravenously daily. Vancomycin Dose per Pharmacy for Goal AUC 400-600 mg/L/hr 59.5 g 024 2023 Discontinued Hospital, Clinic, or Other Facility Administered Medication Ordered Dose Route Frequency Start Date End Date Status NSS 65 mL with Ampicillin-Sulbact am 3 g INFUSION CENTRAL IV Q6H 06/20/2024 4 Active NSS 250 mL with Vancomycin 1,250 mg INFUSION 1250 mg CENTRAL IV Q24H 06/22/2024 4 Active NSS 335 mL with Vancomycin 1,750 mg INFUSION 1750 mg CENTRAL IV Q24H 06/15/2024 4 Discontinued NSS 65 mL with Ampicillin-Sulbact am 3 g INFUSION CENTRAL IV Q6H 06/16/2024 4 Discontinued documented as of this encounter [...] glucose 12/16/2005 Macular degeneration 12/02/1999 DISC DIS [id number] documented as of this encounter (statuses as [...] colonoscopy in 5 years ARTHRITIS,RHEUMATOID 07/07/2006 016 [id number] 07/07/200611/01 Overview (11/16/2009): Renamed Per Clinical Trials Billing Project. Pt is a participant in the [employer] (Consortium of Rheumatology [place] national data collection study. For further information please call Dr Hari Clark or Julia White, RN, CCRC at [phone] [facility] RESEARCH OTHER*[id number] 07/07/2006 01/28/2010 Overview (11/16/2009): Renamed Per Clinical Trials Billing Project. Pt is a participant in the [employer] (Consortium of Rheumatology Researchers [place] national data collection study. For further information please call Dr Hari Clark or Julia White, RN, CCRC at [phone] ADVANCE DIRECTIVE INFORMATION 05/19/2006 06/06/2024 Overview (05/19/2006): [...] st Contact Info) Description 06/21/2024 8:30 AM EST Pharmacy Home Infusion, [place] [address] [place] [address] Mgmt, [facility] Pharmacist Antig [address] [place] [address] Osteomyelitis, unspecified site, unspecified type (HCC)* 06/27/2024 2:30 PM EST Telemedicine Hematology/Oncology [facility] 200 [place] [address] Korin Fisher CRNP [address] [place] [address] 06/28/2024 2:15 PM EST Procedure Only Urology, [facility] [address] [place] [address] Vinay Sexton MD [address] [place] [address] 07/07/2024 10:20 AM EST Office Visit Infectious Disease, [facility] [address] [place] [address] Mona Bland MD 100 [place] [address] 07/18/2024 1:20 PM EST Office Visit Rheumatology [address] [place] [address] Mendel Wilson MD [address] [place] [address] [place] [address] 07/21/2024 2:30 PM EST Office Visit Cardiology, [facility] [address] [facility] [place] [address] Chiara Meyer CRNP [address] [facility] [place] [address] 09/08/2024 3:40 PM EST Office Visit Nephrology, [facility] [address] [place] [address] Bryson Ellis MD [address] [place] [address] 10/17/2024 10:30 AM EDT Office Visit Cardiology, [facility] 132 [facility] [place] [address] Dmitri Greenfield DO 132 [facility] [place] [address] 03/21/2025 11:45 AM EDT Telemedicine Urology, [facility] system 132 [facility] [place] [address] Vinay Sexton MD [address] [place] [address] Scheduled Procedures Name Priority Associated Diagnoses Date/Ti [...] Additional history exists CKD PHOS USE SMARTSET 26862 06/06/20250 11/2023, 06/05/2024, 06/04/2024, Additional history exists CKD HGB USE SMARTSET 57671 06/20/202506/20, 06/20/2024, 06/13/2024, Additional history exists DTap/Tdap [...] D LEVEL ONCE IN A LIFETIME-USE SMARTSET# 71916 Completed 03/21/2024, 12/25/2023, 05/27/2021, Additional history exists [...] Discussed due to patient's condition Care Teams Expediter Relationship Specialty Start Date End Date Rhianna Huitron DO [address] [facility] [place] [address] PCP - General Family Medicine 07/11/19 documented as of this encounter
--- OUTSIDE RECORDS SUMMARY | 2024-11-18 02:21 | External Medical Summary ---
Author Name Unknown Address Unknown Organization [id number]:[facility] [address] [place] [address] Laboratory Report Ordering Provider Test Date Status DESIREE STEPHENS 06/20/2024 08:29:00 Final Observation Date Value Abnormality Reference (Units ) Status SYNC LEUKOCYTES IN BLOOD BY AUTOMATED COUNT 06/20/2024 08:29:00 7.68 4.00-10.80 (K/uL) Final Segs 06/20/2024 08:29:00 75.5 Above high normal 40.0-75.0 (%) Final Lymphs % 06/20/2024 08:29:00 9.6 Below low normal 18.0-42.0 (%) Final Monos 06/20/2024 08:29:00 7.2 1.0-11.0 (%) Final Eosinophils 06/20/2024 08:29:00 6.1 Above high normal 0.0-6.0 (%) Final Basos 06/20/2024 08:29:00 0.9 0.0-2.0 (%) Final Immature Granulocyte, Percent 06/20/2024 08:29:00 0.7 0.0-2.0 (%) Final Absolute Segs 06/20/2024 08:29:00 5.80 1.80-7.70 (K/uL) Final Lymphs, absolute 06/20/2024 08:29:00 0.74 Below low normal 1.00-4.80 (K/ul) Final Monos, Abs 06/20/2024 08:29:00 0.55 0.00-1.10 (K/uL) Final Eos, Abs 06/20/2024 08:29:00 0.47 0.00-0.70 (K/uL) Final Basos, Abs 06/20/2024 08:29:00 0.07 0.00-0.20 (K/uL) Final Immature Granulocytes, Number 06/20/2024 08:29:00 0.05 0.00-0.20 (K/uL) Final Performing Location [facility] [place] [address]
--- OUTSIDE RECORDS SUMMARY | 2024-11-18 02:21 | External Medical Summary ---
Author Name Unknown Address Unknown Organization K01:[facility] [place] [address] [facility] [place] [address] Laboratory Report Ordering Provider Test Date Status DESIREE STEPHENS 06/20/2024 08:29:00 Final Observation Date Value Abnormality Reference (Units ) Status CRP, low-sensitivity 06/20/2024 08:29:00 69 Above high normal <=5 (mg/L) Final Performing Location [facility] [place] [address] [place] [address]
--- OUTSIDE RECORDS SUMMARY | 2024-11-18 02:21 | External Medical Summary ---
Author Name Unknown Address Unknown Organization [id number]:[facility] [address] [place] [address] Laboratory Report Ordering Provider Test Date Status DESIREE STEPHENS 06/20/2024 08:29:00 Final Observation Date Value Abnormality Reference (Units ) Status BUN 06/20/2024 08:29:00 25 Above high normal 6-20 (mg/dL) Final Creatinine 06/20/2024 08:29:00 1.1 0.6-1.2 (mg/dL) Final Glomerular filtration rate/1.73 sq M.predicted [Volume Rate/Area] in Serum, Plasma or Blood by Creatinine-based formula (CKD-EPI) 06/20/2024 08:29:00 72 >=60 (mL/min) Final eGFR is calculated based on the CKD-EPI 2020 equation. Sodium 06/20/2024 08:29:00 133 Below low normal 135 -146 (mmol/L) Final Potassium 06/20/2024 08:29:00 4.1 3.5-5.1 (m mol/L) Final Cl 06/20/2024 08:29:00 92 Below low normal 98- 107 (mmol/L) Final CO2 06/20/2024 08:29:00 27 22-32 (mmo l/L) Final Anion gap 06/20/2024 08:29:00 14 7-15 (mmol /L) Final Glucose 06/20/2024 08:29:00 112 70-120 (mg /dL) Final Albumin 06/20/2024 08:29:00 3.3 Below low normal 3.8 -5.0 (g/dL) Final AST (Aspartate aminotransferase) 06/20/2024 08:29:00 12 10-50 (U/L) Fin al Alk Phos 06/20/2024 08:29:00 80 35-130 (U/ L) Final Bilirubin, Total 06/20/2024 08:29:00 0.3 <=1 .2 (mg/dL) Final Calcium 06/20/2024 08:29:00 9.0 8.4-10.2 ( mg/dL) Final Protein 06/20/2024 08:29:00 6.5 6.0-8.3 (g /dL) Final ALT (Alanine aminotransferase) 06/20/2024 08:29:00 7 Below low normal 10-50 (U/L) Final Performing Location [facility] [address] [facility] [address]
--- OUTSIDE RECORDS SUMMARY | 2024-11-18 02:22 | External Medical Summary | Summary of Care ---
Author Name Unknown Organization [facility] Address [address] [facility] [place] [address] Phone [phone] Care Team Providers Care Relay Telegrapher Name Role Phone Rhianna Huitron DO Primary Care Provider [phone] Reason for Visit * Reason Onset Date Comments FYI 06/14/2024 Encounter Details Date Type Department Care Team (Late st Contact Info) Description 06/14/2024 Telephone [facility] [address] [place] [address] Rhianna Huitron DO [address] [place] [address] FYI Allergies Active Allergy Reactions Criticality Noted Date Comments Brent Inhibitors Cough Low 11/26/2017 Alendronate Sodium Muscle pain 04/11/2019 Heartburn, constipation, joint pain Misoprostol Diarrhea 08/08/2003 Niacin Er (Antihyperlipidemic) 11/26/2010 Gas, hot flashes Pollen 01/01/2018 Watery eyes, sneezing Pravastatin 02/26/2007 Upset stomach, all .Statins Simvastatin 02/26/2007 Upset stomach documented as of this encounter (statuses as of 06/15/2024) Medications ASPIR-81 81 MG PO TBEC 1 TABLET DAILY 0 06/19/20 06 Active Acetaminophen 325 MG Oral Tablet (Tylenol) 2 Tablets. 09/03/19 24 Active Magnesium Oxide -Mg Supplement 400 (240 Mg) MG Oral Tablet (Mag-Ox) Take 1 Tablet by mouth in the morning and 1 Tablet before bedtime. 180 Tablet 3 09/18/19 24 Active Additional Information Patient not taking.Reported on 06/02/2024 Clopidogrel Bisulfate 75 MG Oral Tablet (Plavix) Take 1 Tablet by mouth in the morning. 90 Tablet 3 09/18/19 24 Active Folic Acid 1 MG Oral [...] ([facility]) Take 1 Tablet by mouth in the morning and 1 Tablet before bedtime. 180 Tablet 1 05/31/20 24 Active Furosemide 20 MG Oral Tablet (Lasix)Indications :FREDY (acute kidney injury) ([facility]),Hyponatremia Take 1 Tablet by mouth in the morning and 1 Tablet before bedtime. 60 Tablet 5 05/31/20 24 Active Urea 15 GM Oral Packet (Ure-Na)Indication s:FREDY (acute kidney injury) ([facility]),Hyponatremia Take 15 g by mouth in the morning and 15 g before bedtime. 60 Packet 5 05/31/20 24 Active vancomycin IV IV (AMBULATORY) Administer 1,750 mg intravenously daily. Vancomycin Dose per Pharmacy for Goal AUC 400-600 mg/L/hr 59.5 g 06/09/20 24 024 Active Hospital, Clinic, or Other Facility Administered Medication Ordered Dose Route Frequency Start Date End Date Status NSS 335 mL with Vancomycin 1,750 mg INFUSION 1750 mg CENTRAL IV Q24H 06/15/2024 07/14/2024 Active documented as of this encounter (statuses as of 06/15/2024) Active Problems Problem Noted Date Diagnosed Date [...] glucose 12/16/2005 Macular degeneration 12/02/1999 DISC DIS [id number] documented as of this encounter (statuses as of 06/15/2024) Resolved Problems Problem Noted Date Diagnosed Date [...] colonoscopy in 5 years ARTHRITIS,RHEUMATOID 07/07/2006 016 [id number] 07/07/200611/01 Overview (11/16/2009): Renamed Per Clinical Trials Billing Project. Pt is a participant in the COR[employer] (Consortium of Rheumat[employer] [place]) national data collection study. For further information please call Dr Hari Clark or Julia White, RN, CCRC at [phone] [facility] RESEARCH OTHER*[id number] 07/07/2006 01/28/2010 Overview (11/16/2009): Renamed Per Clinical Trials Billing Project. Pt is a participant in the [employer] (Consortium of [place]ology [place]) national data collection study. For further information please call Dr Hari Clark or Julia White, RN, CCRC at [phone] ADVANCE DIRECTIVE INFORMATION 05/19/2006 06/06/2024 Overview (05/19/2006): Yes-advised to bring copy in to be scanned into EMR. Hearing loss 12/02/1999 03/29/2013 documented as of this encounter (statuses as of 06/15/2024) Immunizations Name Administration Dates Next Due COVID-19 mRNA, LNP-s, No Pre serve, 2-Dose Series ([facility]) 06/14/2021,10/10/2020,09/12/2020 COVID-19, LNP-s, No Preserve , Yousuf-sucrose, [...] encounter Miscellaneous Notes * Telephone Encounter - Simi Covington OSA - 06/14/2024 12:47 PM EST Zachary calling from home geraldo wanting to report pt is doing well. They will visit him once a week for 6 weeks. Has great supportive family. FYI documented in this encounter Plan of Treatment Upcoming Encounters Date Type Department Care Team (Late st Contact Info) Description 06/20/2024 10:00 AM EST Pharmacy [facility], [place] [address] [place] [address] [place], [facility] Pharmacist Antig [address] [place] [address] 06/20/2024 11:10 AM EST Telemedicine [place] [address] [place] [phone] Rhianna Huitron DO [address], [place] [phone] 06/27/2024 2:30 PM EST Office Visit Hematology/Oncology [facility] [address] [place] [address] Korin Fisher CRNP [address] [place], [place] [phone] 06/28/2024 2:15 PM EST Procedure Only Urology, [facility] [address] [facility] [place] [address] Vinay Sexton MD [address] [place] [address] 07/07/2024 10:20 AM EST Office Visit Infectious Disease, [facility] [address] [place] [phone] Mona Bland MD [address] [place], [place] [phone] 07/18/2024 1:20 PM EST Office Visit Rheumatology [place] [id number] [place] [address] Mendel Wilson MD [address] [place] [address] [place] [address] 09/08/2024 3:40 PM EST Office Visit Nephrology, [facility] [address] [place] [address] Bryson Ellis MD [address] [place] [address] 10/17/2024 10:30 AM EDT Office Visit Cardiology, [facility] [address] [place] [address] Dmitri Greenfield, [address] [facility] [place] [address] 03/21/2025 11:45 AM EDT Telemedicine Urology, [facility] [address] [place] [address] Vinay Sexton MD [address] [place], [place] [phone] Scheduled Procedures Name Priority Associated Diagnoses Date/Ti [...] 01/02, 05/10/2013, Additional history exists COVID-19 Vaccine (6 - 2024-25 season) 2024 05/23/2022, 12/25/2021, 12/25/2021, Additional history exists GFR 12/11/2024 06/13/2024, 01/2024, 06/06/2024, Additional history exists HbA1c 06/02/2025 06/02/2024, 0 12/2023, 06/22/2023, Additional history exists CKD PHOS USE SMARTSET 07517 06/06/20250 11/2023, 06/05/2024, 06/04/2024, Additional history exists CKD HGB USE SMARTSET 17523 06/13/202506/13, 06/13/2024, 06/08/2024, Additional history exists DTap/Tdap [...] D LEVEL ONCE IN A LIFETIME-USE SMARTSET# 03818 Completed 03/21/2024, 12/25/2023, 05/27/2021, Additional history exists [...] Discussed due to patient's condition Care Teams Relay Telegrapher Relationship Specialty Start Date End Date Rhianna Huitron DO [address] [place] [address] PCP - General Family Medicine 07/11/19 documented as of this encounter
--- OUTSIDE RECORDS SUMMARY | 2024-11-18 02:22 | External Medical Summary | Summary of Care ---
Author Name Unknown Organization [facility] Address [address] [facility] [address] Phone [phone] Care Team Providers Care Billing And Quality Technician Name Role Phone Rhianna Huitron DO Primary Care Provider [phone] Reason for Visit * Reason Comments eRx-Medication Refill Encounter Details Date Type Department Care Team (Late st Contact Info) Description 06/16/2024 Refill Cardiology, [facility] [address] [place] [address] Robinson Bello, [address] [place] [address] Allergies Active Allergy Reactions Criticality Noted Date Comments Brent Inhibitors Cough Low 11/26/2017 Alendronate Sodium Muscle pain 04/11/2019 Heartburn, constipation, joint pain Misoprostol Diarrhea 08/08/2003 Niacin Er (Antihyperlipidemic) 11/26/2010 Gas, hot flashes Pollen 01/01/2018 Watery eyes, sneezing Pravastatin 02/26/2007 Upset stomach, all .Statins Simvastatin 02/26/2007 Upset stomach documented as of this encounter (statuses as of 06/16/2024) Medications ASPIR-81 81 MG PO TBEC 1 [...] (toPROL XL)Indications:NS VT (nonsustained ventricular tachycardia) ([facility]),Non-ischemi c cardiomyopathy ([facility]),Chronic HFrEF (heart failure with reduced ejection fraction) ([facility]) Take 1 Tablet by mouth in the morning and 1 Tablet before bedtime. 180 Tablet 1 Active Furosemide 20 MG Oral Tablet (Lasix)Indication s:FREDY (acute kidney injury) ([facility]),Hyponatremi a Take 1 Tablet by mouth in the morning and 1 Tablet before bedtime. 60 Tablet 5 024 Active Urea 15 GM Oral Packet (Ure-Na)Indicatio ns:FREDY (acute kidney injury) ([facility]),Hyponatremi a Take 15 g [...] IN THE MORNING 90 Tablet 3 Active Clopidogrel Bisulfate 75 MG Oral Tablet [...] as of this encounter (statuses as of 06/16/2024) Active Problems Problem Noted Date Diagnosed Date [...] glucose 12/16/2005 Macular degeneration 12/02/1999 DISC DIS [id number] documented as of this encounter (statuses as of 06/16/2024) Resolved Problems Problem Noted Date Diagnosed Date [...] colonoscopy in 5 years ARTHRITIS,RHEUMATOID 07/07/2006 016 [id number] 07/07/200611/01 Overview (11/16/2009): Renamed Per Clinical Trials Billing Project. Pt is a participant in the [employer] (Consortium of Rhe[employer]ology [place]) national data collection study. For further information please call Dr Hari Clark or Julia White, RN, CCRC at [phone] [facility] RESEARCH OTHER*[id number] 07/07/2006 01/28/2010 Overview (11/16/2009): Renamed Per Clinical Trials Billing Project. Pt is a participant in the [employer] (Consortium of Rheumatology Researchers [place] national data collection study. For further information please call Dr Hari Clark or Julia White, RN, CCRC at [phone] ADVANCE DIRECTIVE INFORMATION 05/19/2006 06/06/2024 Overview (05/19/2006): Yes-advised to bring copy in to be scanned into EMR. Hearing loss 12/02/1999 03/29/2013 documented as of this encounter (statuses as of 06/16/2024) Immunizations Name Administration Dates Next Due COVID-19 [...] Telephone Encounter - Robinson Bello DO - 06/16/2024 4:29 PM ESTSigned Prescriptions: Disp Refills Clopidogrel Bisulfate 75 MG Oral Tablet (p*90 Tab*3 Sig: TAKE 1 TABLET BY MOUTH EVERY DAY IN THE MORNING Authorizing Provider: ROBINSON BELLO * Telephone Encounter - Anna Zepeda RPh - 06/16/2024 3:51 PM ESTPending Prescriptions: Disp Refills Clopidogrel Bisulfate 75 MG Oral Tablet [P*90 Tab*3 Sig: TAKE 1 TABLET BY MOUTH EVERY DAY IN THE MORNING * Telephone Encounter - Anna Zepeda RPh - 06/16/2024 3:50 PM EST [facility] is currently not authorized to approve refills for the pended medication(s) per refill protocol. Please approve if appropriate. Thank you, Anna Zepeda, PharmD Clinical Pharmacist Centralized Clinical Pharmacy Services ([facility]) [phone] 06/16/2024, 3:51 PM documented in this encounter Plan of Treatment Upcoming Encounters Date Type Department Care Team (Late st Contact Info) Description 06/20/2024 10:00 AM EST Pharmacy [facility], [place] [address] [place] [address] Mgmt, [facility] Pharmacist Antig [address] [place] [address] 06/20/2024 11:10 AM EST Telemedicine [facility], [place] [address] [place] [phone] Rhianna Huitron DO [address] [place] [address] 06/27/2024 2:30 PM EST Telemedicine Hematology/Oncology [facility] [address] [place] [phone] Korin Fisher CRNP [address] [place] [address] 06/28/2024 2:15 PM EST Procedure Only Urology, [facility] [address] [facility] [place] [address] Vinay Sexton MD [address] [place] [address] 07/07/2024 10:20 AM EST Office Visit Infectious Disease, [facility] [address] [place] [phone] Mona Bland MD [address] [place] [address] 07/18/2024 1:20 PM EST Office Visit Rheumatology [address] [place] [address] Mendel Wilson MD [address] [facility] [place] [address] 07/21/2024 2:30 PM EST Office Visit Cardiology, [facility] [address] [facility] [place] [address] Chiara Meyer CRNP [address] [facility] [place] [address] 09/08/2024 3:40 PM EST Office Visit Nephrology, [facility] [address] [place] [address] Bryson Ellis MD [address] [place] [address] 10/17/2024 10:30 AM EDT Office Visit Cardiology, [facility] [address] [facility] [place] [address] Robinson Bello, [address] [facility] [place] [address] 03/21/2025 11:45 AM EDT Telemedicine Urology, [facility] [address] [facility] [place] [address] Vinay Sexton MD [address] [place] [address] Scheduled Procedures Name Priority Associated Diagnoses Date/Ti [...] Additional history exists CKD PHOS USE SMARTSET 05039 06/06/202511/2023, 06/05/2024, 06/04/2024, Additional history exists CKD HGB USE SMARTSET 32592 06/13/202506/13, 06/13/2024, 06/08/2024, Additional history exists DTap/Tdap [...] D LEVEL ONCE IN A LIFETIME-USE SMARTSET# 54531 Completed 03/21/2024, 12/25/2023, 05/27/2021, Additional history exists [...] Discussed due to patient's condition Care Teams Billing And Quality Technician Relationship Specialty Start Date End Date Rhianna Huitron DO [address] [place] [facility] [place] [address] PCP - General Family Medicine 07/11/19 documented as of this encounter
--- OUTSIDE RECORDS SUMMARY | 2024-11-18 02:22 | External Medical Summary | Summary of Care ---
Author Name Unknown Organization [facility] Address [address] [place] [address] Phone [phone] Care Team Providers Care Candy Bar Attendant Name Role Phone Rhianna Huitron DO Primary Care Provider Reason for Visit * Reason Onset Date Comments Hospital Follow-Up 06/14/2024 MICHAELA ([facility] Encounter Details Date Type Department Care Team (Late st Contact Info) Description 06/14/2024 Telephone [place] [address] [place] [address] Simi Richter RN Hospital Follow-Up (MICHAELA ([facility] Allergies Active Allergy Reactions Criticality Noted Date Comments Brent Inhibitors Cough Low 11/26/2017 Alendronate Sodium Muscle pain 04/11/2019 Heartburn, constipation, joint pain Misoprostol Diarrhea 08/08/2003 Niacin Er (Antihyperlipidemic) 11/26/2010 Gas, hot flashes Pollen 01/01/2018 Watery eyes, sneezing Pravastatin 02/26/2007 Upset stomach, all .Statins Simvastatin 02/26/2007 Upset stomach documented as of this encounter (statuses as of 06/14/2024) Medications ASPIR-81 81 MG PO TBEC 1 [...] AUC 400-600 mg/L/hr 59.5 g 06/09/20 24 Active ampicillin-sulbact am IV IJ (AMBULATORY)Indica tions:Osteomyeliti s of symphysis pubis (HCC) Administer 3 g intravenously every 6 hours. 348 g 06/14/20 24 024 Active Hospital, Clinic, or Other Facility Administered Medication Ordered Dose Route Frequency Start Date End Date Status NSS 335 mL with Vancomycin 1,750 mg INFUSION 1750 mg CENTRAL IV Q24H 06/15/2024 07/14/2024 Active documented as of this encounter (statuses as of 06/14/2024) Active Problems Problem Noted Date Diagnosed Date [...] glucose 12/16/2005 Macular degeneration 12/02/1999 DISC DIS [id number] documented as of this encounter (statuses as of 06/14/2024) Resolved Problems Problem Noted Date Diagnosed Date [...] colonoscopy in 5 years ARTHRITIS,RHEUMATOID 07/07/2006 016 [id number] 07/07/200611/01 Overview (11/16/2009): Renamed Per Clinical Trials Billing Project. Pt is a participant in the [employer]RONA (Consortium of Rheumatology Researchers [place] national data collection study. For further information please call Dr Hari Clark or Julia White, RN, CCRC at [phone] [facility] RESEARCH OTHER*[id number] 07/07/2006 01/28/2010 Overview (11/16/2009): Renamed Per Clinical Trials Billing Project. Pt is a participant in the [employer] (Consortium of Rheumatology Researchers [place] national data collection study. For further information please call Dr Hari Clark or Julia White, RN, CCRC at [phone] ADVANCE DIRECTIVE INFORMATION 05/19/2006 06/06/2024 Overview (05/19/2006): Yes-advised to bring copy in to be scanned into EMR. Hearing loss 12/02/1999 03/29/2013 documented as of this encounter (statuses as of 06/14/2024) Immunizations Name Administration Dates Next Due COVID-19 mRNA, LNP-s, No Pre serve, 2-Dose Series ([employer]) 06/14/2021,10/10/2020,09/12/2020 COVID-19, LNP-s, No Preserve , Yousuf-sucrose, [...] Miscellaneous Notes * Telephone Encounter - Simi Richter RN - 06/14/2024 9:34 AM EST Transitions of Care Note Reason for Referral:Recent Admission Phone visit for follow up: MICHAELA Patient receiving a call from [employer] during our conversation, requesting a call back so he can answer Admitted to: [facility] 05/31/2024, [facility] [place]/[facility]24 Discharged to: Home with Home Health Services, Date: 06/10/2024 Diagnosis driving hospitalization: Septic Shock, Presumed Parasymphyseal Abscess, 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 Worked with PT today. Using walker and W/C. CV: Denies problems Pulmonary: Denies problems Chills/Sweats/Fever: Harned warm/overheated for 1/2 hour last night, no temp 98.4 F, no chills, afterport flushed, resolved Appetite:Denies problems such as nausea, vomiting, burning, decreased appetite, drinking Boost Current diet: As previous Bowel: Had diarrhea until yesterday, started eating yogurt, resolved Bladder: denies problems and ostomy/indwelling catheter: Ingram Wound (If applicable): gluteal folds, using Desitin, not using foam pads, patient states wound looks much better, PICC Line to RT, dressing D/I Pain:Denies Sleep:Denies problems FUNCTIONAL STATUS: ADL'S: Needs Assistance With:Bathing, Dressing, Toileting, and Continence IADL'S: Needs Assistance With:Grocery Shopping, Cooking food, and Routine Housework Cognitive and Mental Health: denies problems, alert and oriented x 3, and able to communicate, understand instructions, process information. MEDICATION RECONCILIATION Medications: Discharge med list reviewed with patient or caregiver New medications: Ceftriaxone, Vancomycin Discontinued medication: Methotrexate ASSESSMENT Medication Risk Assessment: No risks identified Did patient fail outpatient treatment? No Discharge instructions available for review? Yes PLAN Symptom Monitoring Interventions:Member/caregiver education - signs and symptoms to contact PrimaryCare (DO NOT DELETE-Three jeffries symptoms patient is to report to PCP) 1. Chest Pain/SOB 2. Fever/chills/warmth 3. Recurring diarrhea Hauling ContractorBarrel Handler of Care interventions/Action Plan: 5 - 7 day follow-up with PCP in place - Date: PCP appointment 06/20/2024 Educated on role of MICHAELA completed with patient/caregiver. Educated patient/caregiver on patient right to have input on MICHAELA plan of care. Verification of Home Health/DME if indicated: YES [facility] Home Health, Nursing, PT Identified Care Gaps: Yes Care Gaps closed this call: Appointment made or confirmed and Transition of Care follow-up communication Re-evaluation of Plan of Care and progress towards goals achievement: Patient education this visit: Verbal, Confirmed PCP appointment 06/20/2024, discussed reasons to call sooner as above Plan to instructed to call Primary Care Provider with change in symptoms or as needed before next follow-up, discharge needs met, verbalizes understanding and agrees with plan. Discussed diarrhea, above sx after port flushing with Dr. Bond, continue to observe. Patient to callif recurs. Simi Richter, RN documented in this encounter Plan of Treatment Upcoming Encounters Date Type Department Care Team (Late st Contact Info) Description 06/20/2024 11:10 AM EST Office Visit [facility] [address] [place] [address] [place] [phone] Rhianna Huitron DO [address] [place] [place] [address] 06/27/2024 2:30 PM EST Office Visit Hematology/Oncology [facility] [place] [address] [facility] [place] [phone] Korin Fisher CRNP [address] [place] [address] 06/28/2024 2:15 PM EST Procedure Only Urology, [facility] [address] [facility] [place] [address] Vinay Sexton MD [address] [place] [address] 07/07/2024 10:20 AM EST Office Visit Infectious Disease, [address] [address] Mona Bland MD [address] [place] [address] 09/08/2024 3:40 PM EST Office Visit Nephrology, [address] [address] Bryson Ellis MD [address] [place] [address] 10/17/2024 10:30 AM EDT Office Visit Cardiology, [facility] 132 [place] [address] Dmitri Greenfield DO [address] [facility] [address] 03/21/2025 11:45 AM EDT Telemedicine Urology, [facility] [address] [facility] [place] [address] Vinay Sexton MD [address] [place] [address] Scheduled Procedures Name Priority Associated Diagnoses Date/Ti [...] Additional history exists CKD PHOS USE SMARTSET 21553 06/06/202511/2023, 06/05/2024, 06/04/2024, Additional history exists CKD HGB USE SMARTSET 72893 06/13/202506/13, 06/13/2024, 06/08/2024, Additional history exists DTap/Tdap [...] D LEVEL ONCE IN A LIFETIME-USE SMARTSET# 08679 Completed 03/21/2024, 12/25/2023, 05/27/2021, Additional history exists [...] Discussed due to patient's condition Care Teams Candy Bar Attendant Relationship Specialty Start Date End Date Rhianna Huitron DO [address] [place] [address] PCP - General Family Medicine 07/11/19 documented as of this encounter
--- OUTSIDE RECORDS SUMMARY | 2024-11-18 02:22 | External Medical Summary | Summary of Care ---
Author Name Unknown Organization [facility] Address [address] [place] [address] Phone [phone] Care Team Providers Care Warehouse Processor Name Role Phone Rhianna Huitron DO Primary Care Provider [phone] Reason for Visit * Reason Comments Medication Management Encounter Details Date Type Department Care Team (Late st Contact Info) Description 06/14/2024 12:00 PM [facility] Pharmacy Home [facility], [place] [address] [place], [place] [id number] Billy Galloway Pharmacist Antig [address] [place] [address] Osteomyelitis, unspecified site, unspecified type [...] Hour (toPROL XL)Indications:NSV T (nonsustained ventricular tachycardia) ([facility]),Non-ischemic cardiomyopathy ([facility]),Chronic HFrEF (heart failure with reduced ejection fraction) ([facility]) Take 1 Tablet by mouth in the morning and 1 Tablet before bedtime. 180 Tablet 1 05/31/20 24 Active Furosemide 20 MG Oral Tablet (Lasix)Indications :FREDY (acute kidney injury) ([facility]),Hyponatremia Take 1 Tablet by mouth in the morning and 1 Tablet before bedtime. 60 Tablet 5 05/31/20 24 Active Urea 15 GM Oral Packet (Ure-Na)Indication s:FREDY (acute kidney injury) ([facility]),Hyponatremia Take 15 g by mouth [...] glucose 12/16/2005 Macular degeneration 12/02/1999 DISC DIS [id number] documented as of this encounter (statuses as [...] colonoscopy in 5 years ARTHRITIS,RHEUMATOID 07/07/2006 016 [id number] 07/07/200611/01 Overview (11/16/2009): Renamed Per Clinical Trials Billing Project. Pt is a participant in the [employer] (Consortium of Rheumatology Researchers [place]) national data collection study. For further information please call Dr Hari Clark or Julia White, RN, CCRC at [phone] [facility] RESEARCH OTHER*[id number] 07/07/2006 01/28/2010 Overview (11/16/2009): Renamed Per Clinical Trials Billing Project. Pt is a participant in the [employer] (Consortium of Rheumatology [place] national data collection study. For further information please call Dr Hari Clark or Julia White, RN, CCRC at [phone] ADVANCE DIRECTIVE INFORMATION 05/19/2006 06/06/2024 Overview (05/19/2006): [...] Assessment Author Yes 06/01/2024 11:43 PM Lucita Hrarell RN * Because of a physical, mental, [...] in this encounter Progress Notes * Jennifer Freed, [facility] - 06/14/2024 2:17 PM EST [facility] OUTPATIENT PHARMACOKINETIC CONSULT [address] [place] [address] Name: Markus Wharton Date: 06/13/2024 Time: 4:26 PM Bacteria being treated: Corynebacterium spp/ streptococcus spp. Source of infection: osteomyelitis Medications being managed: vancomycin Current regimen: Vancomycin 1750 mg IV every 24 hours Labs: (reviewed as indicated below) Latest Reference Range & Units Most Recent Vancomycin Trough 10.0 - 20.0 ug/mL 17.4 06/13/24 08:45 Latest Reference Range & Units Most Recent CREATININE 0.6 - 1.2 mg/dL 0.9 06/13/24 08:45 Insight[employer] Summary: [employer] Pharmacokinetics Note Drug: Vancomycin Pharmacokinetic target: AUC24 (range) 400-600 mg/L.hr Current regimen: 1750 mg IV every 24 hours Recent measured serum creatinine values: 06/13/2024 08:45 0.9 mg/dL 06/08/2024 09:15 1.1 mg/dL 06/06/2024 06:22 1 mg/dL Analysis of the most recent level(s) using InsightRX gives the following patient-specific pharmacokinetic parameters: CL: 2.9 L/hr V: 61.6 L T1/2: 16.8 hours Using these values, the current regimen of Vancomycin 1750 mg IV every 24 hours is predicted to result in a steady-state trough of 16.4 mg/L and AUC24 of 588 mg/L.hr. At this time we recommend a regimen of 1750 mg IV every 24 hours, which is predicted to result in a steady-state trough of 16.4 mg/Land AUC24 of 588 mg/L.hr. Recommendations: - Vancomycin 1750 mg IV every 24 hours Impression: 79 y/o referred to [facility] for outpatient pharmacokinetic monitoring of IV vancomycin. Start of care with home health on 06/11/24. Vancomycin AUC24 predicted to be within goal range using tibditRx PK software with parameters as above. The pharmacokinetic target for therapy is AUC24,SS (range) 400-600mg/L.hr. Renal function stable. Plan: Continue Vancomycin 1750 mg IV daily Next labs - CBC w/diff, CMP, CRP and vancomycin trough on Thursday06/20/24 Additional recommendations: Monitor renal function, fluid status and compliance closely. Expected end date: 07/13/24 Next scheduled Infectious Disease follow up appointment: 07/07/24 Contact info for questions/concerns: [facility] at [phone] Jennifer Freed RPh documented in this encounter Plan of Treatment Upcoming Encounters Date Type Department Care Team (Late st Contact Info) Description 06/20/2024 10:00 AM EST Pharmacy Home Infusion, [place] [address] [place] [address] Billy Galloway Pharmacist Anti [address] [place] [address] 06/20/2024 11:10 AM EST Office Visit [address] [address] Rhianna Huitron DO [address] [place] [address] 06/27/2024 2:30 PM EST Office Visit Hematology/Oncology Jayashree Hobbs [place] [address] [place] [address] Korin Fisher CRNP [address] [place] [address] 06/28/2024 2:15 PM EST Procedure Only Urology, [facility] [address] [place] [address] Vinay Sexton MD [address] [place] [address] 07/07/2024 10:20 AM EST Office Visit Infectious Disease, [address] [address] Mona Bland MD [address] [place] [address] 09/08/2024 3:40 PM EST Office Visit Nephrology, [address] [address] Bryson Ellis MD [address] [place] [address] 10/17/2024 10:30 AM EDT Office Visit Cardiology, [facility] [address] [facility] [address] Dmitri Greenfield, [address] [place] [address] 03/21/2025 11:45 AM EDT Telemedicine Urology, [facility] [address] [place] [address] Vinay Sexton MD [address] [place] [address] Scheduled Procedures Name Priority Associated Diagnoses Date/Ti [...] Additional history exists CKD PHOS USE SMARTSET 51424 06/06/202511/2023, 06/05/2024, 06/04/2024, Additional history exists CKD HGB USE SMARTSET 96167 06/13/202506/13, 06/13/2024, 06/08/2024, Additional history exists DTap/Tdap [...] D LEVEL ONCE IN A LIFETIME-USE SMARTSET# 36435 Completed 03/21/2024, 12/25/2023, 05/27/2021, Additional history exists [...] Discussed due to patient's condition Care Teams Warehouse Processor Relationship Specialty Start Date End Date Rhianna Huitron DO [address] [place] [address] PCP - General Family Medicine 07/11/19 documented as of this encounter
--- OUTSIDE RECORDS SUMMARY | 2024-11-18 02:22 | External Medical Summary | Summary of Care ---
Author Name Unknown Organization [facility] Address [address] [place] [address] Phone [phone] Care Team Providers Care Head Of Human Resources Name Role Phone Kat Huitron DO Primary Care Provider Reason for Visit * Reason Onset Date Comments Hospital Follow-Up 06/09/2024 6wk hd/fu johnna t needed thanks Ella Encounter Details Date Type Department Care Team (Late st Contact Info) Description 06/09/2024 Telephone Rheumatology, [place] [address] [place] [address] Specified, [place] No Resource [address] [place] [address] Hospital Follow-Up (6wk hd/fu appt needed ... Allergies Active Allergy Reactions Criticality Noted Date [...] in the morning. 90 Tablet 3 024 Active Folic Acid 1 MG Oral [...] VT (nonsustained ventricular tachycardia) ([facility]),Non-ischemi c cardiomyopathy ([facility]),Chronic HFrEF (heart failure with reduced ejection fraction) ([facility]) Take 1 Tablet by mouth in the morning and 1 Tablet before bedtime. 180 Tablet 1 024 Active Furosemide 20 MG Oral Tablet (Lasix)Indication s:FREDY (acute kidney injury) ([facility]),Hyponatremi a Take 1 Tablet by mouth in the morning and 1 Tablet before bedtime. 60 Tablet 5 024 Active Urea 15 GM Oral Packet (Ure-Na)Indicatio ns:FREDY (acute kidney injury) ([facility]),Hyponatremi a Take 15 g by mouth in the morning and 15 g before bedtime. 60 Packet 5 Active vancomycin IV IV (AMBULATORY) Administer 1,750 mg intravenously daily. Vancomycin Dose per Pharmacy for Goal AUC 400-600 mg/L/hr 59.5 g 2023 Active cefTRIAXone Sodium-Dextrose 2-2.22 GM-%(50ML) Intravenous Solution Reconstituted (Rocephin) Administer 2,000 mg at 100 mL/hr over 30 minutes intravenously daily. 1650 mL 2023 Discontinued documented as of this encounter [...] glucose 12/16/2005 Macular degeneration 12/02/1999 DISC DIS [id number] documented as of this encounter (statuses as [...] colonoscopy in 5 years ARTHRITIS,RHEUMATOID 07/07/2006 016 [id number] 07/07/200611/01 Overview (11/16/2009): Renamed Per Clinical Trials Billing Project. Pt is a participant in the [employer] (Consortium of Rheumatology Researchers [place] national data collection study. For further information please call Dr Hari Clark or Julia White, RN, CCRC at [phone] [facility] RESEARCH OTHER*[id number] 07/07/2006 01/28/2010 Overview (11/16/2009): Renamed Per Clinical Trials Billing Project. Pt is a participant in the [employer] (Consortium of Rheumatology [place] national data collection study. For further information please call Dr Hari Clark or Julia White, RN, CCRC at [phone] ADVANCE DIRECTIVE INFORMATION 05/19/2006 06/06/2024 Overview (05/19/2006): Yes-advised to bring copy in to be scanned into EMR. Hearing loss 12/02/1999 03/29/2013 documented as of this encounter (statuses as of 06/15/2024) Immunizations Name Administration Dates Next Due COVID-19 mRNA, LNP-s, No Pre serve, 2-Dose Series ([employer]) 06/14/2021,10/10/2020,09/12/2020 COVID-19, LNP-s, No Preserve , Yousuf-sucrose, Ages 12+ (Pfizer) 12/25/2021 Covid-19, Mrna, Lnp-s, Pf, B ivalent, 30 Mcg, IM, 12 yrs and above ([facility]) 05/23/2022 Diptheria/Tetanus (Adult) 12/15/1996 Pneumococcal Conjugate Vacc, [...] encounter Miscellaneous Notes * Telephone Encounter - Maddy Rowan OSA - 06/15/2024 12:08 PM EST Patient scheduled, patient aware. * Telephone Encounter - Alex Dempsey MD - 06/15/2024 7:46 AM EST [place] - offer return appt Jul 18 at 120pm here in [place] * Telephone Encounter - Gianni Sotelo OSA - 06/09/2024 1:29 PM EST Please review and advise. KARLOS Qiu * Telephone Encounter - Ella Shelby OSA - 06/09/2024 1:15 PM EST Order RETURN APPT [IP355] (Order [id number]) Janes Wharton 06/01/2024 11:08 PM Admission Description: 79 year old male Department: [facility] 6 IP [facility] Message Patient Name: JANES WHARTON([id number]) Sex: Male : 1945 PCP: KAT HUITRON Center: [facility] Types of orders made on 06/09/2024: Holter, IP Post Discharge , Lab, Medications, Point of Care Testing, Point of Care Testing - Unso licited Results Order Date:06/09/2024 Ordering User:RYANNE HEBERT [[id number]] Attending Provider:Alex Kidd DO [[id number]] Authorizing Provider: Ryanne Hebert MD [[id number]] Department:[facility] 6 [facility][[id number]] Order Specific Information Order: RETURN APPT [CUSTOM: IP355] Order #: [id number]: [id number] Priority: Routine Class: Nursing Unit Department (Single Entry) -> Rheumatology Appt Needed Within: (Specify # of Days, Weeks, Months) -> 6 Wk Provider -> ALEX DEMPSEY Released on: 06/09/2024 1:08 PM Priority: Routine Class: Nursing Unit Department (Single Entry) -> Rheumatology Appt Needed Within: (Specify # of Days, Weeks, Months) -> 6 Wk Provider -> ALEX DEMPSEY Released on: 06/09/2024 1:08 PM documented in this encounter Plan of Treatment Upcoming Encounters Date Type Department Care Team (Late st Contact Info) Description 06/20/2024 10:00 AM EST Pharmacy Home Infusion, [place] [address] [place] [address] Billy Galloway Pharmacist Antig [address] [place] [address] 06/20/2024 11:10 AM EST Telemedicine [address] [phone] Kat Huitron DO [address] [place] [address] 06/27/2024 2:30 PM EST Office Visit Hematology/Oncology [facility] [address] [place] [phone] Korin Fisher CRNP [address] [facility] [place] [address] 06/28/2024 2:15 PM EST Procedure Only Urology, [facility] [address] [facility] [place] [address] Vinay Sexton MD [address] [place] [address] 07/07/2024 10:20 AM EST Office Visit Infectious Disease, [address] [address] Mona Bland MD [address] [place] [address] 07/18/2024 1:20 PM EST Office Visit Rheumatology [address] [place] [address] Alex Dempsey MD [address] [place] [address] [place] [address] 09/08/2024 3:40 PM EST Office Visit Nephrology, [address] [address] Bryson Ellis MD [address] [place] [address] 10/17/2024 10:30 AM EDT Office Visit Cardiology, [facility] [address] [place] [address] Dmitri Greenfield, [address] [place] [address] 03/21/2025 11:45 AM EDT Telemedicine Urology, [facility] [address] [place] [address] Vinay Sexton MD [address] [place] [address] Scheduled Procedures Name Priority Associated Diagnoses Date/Ti [...] Additional history exists CKD PHOS USE SMARTSET 98322 06/06/202511/2023, 06/05/2024, 06/04/2024, Additional history exists CKD HGB USE SMARTSET 81265 06/13/202506/13, 06/13/2024, 06/08/2024, Additional history exists DTap/Tdap [...] D LEVEL ONCE IN A LIFETIME-USE SMARTSET# 39597 Completed 03/21/2024, 12/25/2023, 05/27/2021, Additional history exists [...] due to patient's condition Care Teams Head Of Human Resources Relationship Specialty Start Date End Date Kat Huitron DO [address] [place] [address] PCP - General Family Medicine 07/11/19 documented as of this encounter
--- OUTSIDE RECORDS SUMMARY | 2024-11-18 02:22 | External Medical Summary | Summary of Care ---
Author Name Unknown Organization [facility] Address [address] [place] [address] Phone [phone] Care Team Providers Care Brim Curler Name Role Phone Kat Huitron DO Primary Care Provider Reason for Visit * Reason Onset Date Comments Hospital Follow-Up 06/09/2024 6wk hd/fu johnna t needed thanks Ella Encounter Details Date Type Department Care Team (Late st Contact Info) Description 06/09/2024 Telephone Rheumatology, [place] [address] [place] [address] Specified, [place] No Resource [address] [place] [address] Hospital Follow-Up (6wk hd/fu appt [...] Hour (toPROL XL)Indications:NS VT (nonsustained ventricular tachycardia) ([facility]),Non-ischemi c cardiomyopathy ([facility]),Chronic HFrEF (heart failure with reduced ejection fraction) ([facility]) Take 1 Tablet by mouth in the morning and 1 Tablet before bedtime. 180 Tablet 1 024 Active Furosemide 20 MG Oral Tablet (Lasix)Indication s:FREDY (acute kidney injury) ([facility]),Hyponatremi a Take 1 Tablet by mouth in the morning and 1 Tablet before bedtime. 60 Tablet 5 024 Active Urea 15 GM Oral Packet (Ure-Na)Indicatio ns:FREDY (acute kidney injury) ([facility]),Hyponatremi a Take 15 g by mouth [...] glucose 12/16/2005 Macular degeneration 12/02/1999 DISC DIS [id number] documented as of this encounter (statuses as [...] colonoscopy in 5 years ARTHRITIS,RHEUMATOID 07/07/2006 016 [id number] 07/07/200611/01 Overview (11/16/2009): Renamed Per Clinical Trials Billing Project. Pt is a participant in the [employer] (Consortium of Rheumatology Researchers [place] national data collection study. For further information please call Dr Hari Clark or Julia White, RN, CCRC at [phone] [facility] RESEARCH OTHER*[id number] 07/07/2006 01/28/2010 Overview (11/16/2009): Renamed Per Clinical Trials Billing Project. Pt is a participant in the [employer] (Consortium of Rheumatology Researchers [place] national data collection study. For further information please call Dr Hari Clark or Julia White, RN, CCRC at [phone] ADVANCE DIRECTIVE INFORMATION 05/19/2006 06/06/2024 Overview (05/19/2006): Yes-advised to bring copy in to be scanned into EMR. Hearing loss 12/02/1999 03/29/2013 documented as of this encounter (statuses as of 06/15/2024) Immunizations Name Administration Dates Next Due COVID-19 mRNA, LNP-s, No Pre serve, 2-Dose Series ([employer]) 06/14/2021,10/10/2020,09/12/2020 COVID-19, LNP-s, No Preserve , Yousuf-sucrose, Ages 12+ (Pfizer) 12/25/2021 Covid-19, Mrna, Lnp-s, Pf, B ivalent, 30 Mcg, IM, 12 yrs and above ([employer]) 05/23/2022 Diptheria/Tetanus (Adult) 12/15/1996 Pneumococcal Conjugate Vacc, [...] encounter Miscellaneous Notes * Telephone Encounter - Alex Dempsey MD - 06/15/2024 7:46 AM EST [place] - offer return appt Jul 18 at 120pm here in [place] * Telephone Encounter - Gianni Sotelo OSA - 06/09/2024 1:29 PM EST Please review and advise. KARLOS Qiu * Telephone Encounter - Ella Shelby OSA - 06/09/2024 1:15 PM EST Order RETURN APPT [IP355] (Order [id number]) Janes Wharton 06/01/2024 11:08 PM Admission Description: 79 year old male Department: [facility] 6 [facility] Message Patient Name: JANES WHARTON([id number]) Sex: Male : 1945 PCP: KAT HUITRON Center: [facility] Types of orders made on 06/09/2024: Holter, IP Post Discharge , Lab, Medications, Point of Care Testing, Point of Care Testing - Unso licited Results Order Date:06/09/2024 Ordering User:RYANNE HEBERT [[id number]] Attending Provider:Alex Kidd DO [[id number]] Authorizing Provider: Ryanne Hebert MD [[id number]] Department:[facility] 6 [facility][[id number]] Order Specific Information Order: RETURN APPT [CUSTOM: IP355] Order #: [id number]: 1 Priority: Routine Class: Nursing Unit Department [...] 06/20/2024 10:00 AM EST Pharmacy Home Infusion, [place] [address] [place] [address] Billy Galloway Pharmacist Antig [address] [place] [address] 06/20/2024 11:10 AM EST Office Visit [facility] [address] [place] [phone] Kat Huitron DO [address] [place] [address] 06/27/2024 2:30 PM EST Office Visit Hematology/Oncology [facility] [address] [place] [phone] Korin Fisher CRNP [address] [facility] [address] 06/28/2024 2:15 PM EST Procedure Only Urology, [facility] 132 [facility] [place] [address] Vinay Sexton MD [address] [place] [id number] 07/07/2024 10:20 AM EST Office Visit Infectious Disease, [facility] [address] [facility] [address] Mona Bland MD [address] [place] [address] 09/08/2024 3:40 PM EST Office Visit Nephrology, [facility] [address] [place] [address] Bryson Ellis MD [address] [place] [address] 10/17/2024 10:30 AM EDT Office Visit Cardiology, [facility] [address] [place] [address] Dmitri Greenfield DO 132 [facility] [place] [address] 03/21/2025 11:45 AM EDT Telemedicine Urology, [facility] [address] [place] [address] Vinay Sexton MD [address] [place] [address] Scheduled Procedures Name Priority Associated Diagnoses Date/Ti [...] Additional history exists CKD PHOS USE SMARTSET 60171 06/06/202511/2023, 06/05/2024, 06/04/2024, Additional history exists CKD HGB USE SMARTSET 30382 06/13/202506/13, 06/13/2024, 06/08/2024, Additional history exists DTap/Tdap [...] D LEVEL ONCE IN A LIFETIME-USE SMARTSET# 09482 Completed 03/21/2024, 12/25/2023, 05/27/2021, Additional history exists [...] due to patient's condition Care Teams Brim Curler Relationship Specialty Start Date End Date Kat Huitron DO [address] [place] [address] PCP - General Family Medicine 07/11/19 documented as of this encounter
--- OUTSIDE RECORDS SUMMARY | 2024-11-18 02:22 | External Medical Summary | Summary of Care ---
Author Name Unknown Organization [facility] Address [address] [place] [address] Phone [phone] Care Team Providers Care Optician Apprentice Name Role Phone Kat Huitron DO Primary Care Provider [phone] Reason for Visit * Reason Onset Date Comments Hospital Follow-Up 06/09/2024 6wk hd/fu johnna t needed thanks Ella Encounter Details Date Type Department Care Team (Late st Contact Info) Description 06/09/2024 Telephone Rheumatology, [place] [address] [place] [address] Specified, [place] [facility] Resource [address] [place] [address] Hospital Follow-Up (6wk hd/fu appt [...] Hour (toPROL XL)Indications:NS VT (nonsustained ventricular tachycardia) ([facility]),Non-ischemi c cardiomyopathy ([facility]),Chronic HFrEF (heart failure with reduced ejection fraction) ([facility]) Take 1 Tablet by mouth in the morning and 1 Tablet before bedtime. 180 Tablet 1 024 Active Furosemide 20 MG Oral Tablet (Lasix)Indication s:FREDY (acute kidney injury) ([facility]),Hyponatremi a Take 1 Tablet by mouth in the morning and 1 Tablet before bedtime. 60 Tablet 5 024 Active Urea 15 GM Oral Packet (Ure-Na)Indicatio ns:FREDY (acute kidney injury) ([facility]),Hyponatremi a Take 15 g by mouth in [...] glucose 12/16/2005 Macular degeneration 12/02/1999 DISC DIS [id number] documented as of this encounter (statuses as [...] colonoscopy in 5 years ARTHRITIS,RHEUMATOID 07/07/2006 016 [id number] 07/07/200611/01 Overview (11/16/2009): Renamed Per Clinical Trials Billing Project. Pt is a participant in the [employer] (Consortium of Rheumatology Researchers [place]) national data collection study. For further information please call Dr Hari Clark or Julia White, RN, CCRC at [phone] [facility] RESEARCH OTHER*[id number] 07/07/2006 01/28/2010 Overview (11/16/2009): Renamed Per Clinical Trials Billing Project. Pt is a participant in the [employer] (Consortium of Rheumatology Researchers [place]) national data collection study. For further information please call Dr Hari Clark or Julia White, RN, CCRC at [phone] ADVANCE DIRECTIVE INFORMATION 05/19/2006 06/06/2024 Overview (05/19/2006): Yes-advised to bring copy in to be scanned into EMR. Hearing loss 12/02/1999 03/29/2013 documented as of this encounter (statuses as of 06/15/2024) Immunizations Name Administration Dates Next Due COVID-19 mRNA, LNP-s, No Pre serve, 2-Dose Series ([employer] 06/14/2021,10/10/2020,09/12/2020 COVID-19, LNP-s, No Preserve , Yousuf-sucrose, Ages 12+ (Pfizer) 12/25/2021 Covid-19, Mrna, Lnp-s, Pf, B ivalent, 30 Mcg, IM, 12 yrs and above (Loot!) 05/23/2022 Diptheria/Tetanus (Adult) 12/15/1996 Pneumococcal Conjugate Vacc, [...] encounter Miscellaneous Notes * Telephone Encounter - Radha Nichols OSA - 06/15/2024 12:19 PM EST Per Maddy, swapping pt to video appt for same date and time due to transportation issues * Telephone Encounter - Maddy Rowan OSA - 06/15/2024 12:08 PM EST Patient scheduled, patient aware. * Telephone Encounter - Alex Dempsey MD - 06/15/2024 7:46 AM EST Simran - offer return appt Jul 18 at 120pm here in [place] * Telephone Encounter - Gianni Sotelo OSA - 06/09/2024 1:29 PM EST Please review and advise. KARLOS Qiu * Telephone Encounter - Ella Shelby OSA - 06/09/2024 1:15 PM EST Order RETURN APPT [[id number]] (Order [id number]) Janes Wharton 06/01/2024 11:08 PM Admission Description: 79 year old male Department: [facility] Message Patient Name: JANES WHARTON([id number]) Sex: Male : 1945 PCP: [facility]AT HUITRON [facility] Types of orders made on 06/09/2024: Holter, IP Post Discharge , Lab, Medications, Point of Care Testing, Point of Care Testing - Unso licited Results Order Date:06/09/2024 Ordering User:RYANNE HEBERT [[id number]] Attending Provider:Alex Kidd DO [[id number]] Authorizing Provider: Ryanne Hebert MD [[id number]] Department:[facility][[id number]] Order Specific Information Order: RETURN APPT [CUSTOM: [id number]] Order #: [id number]: 1 Priority: Routine Class: Nursing Unit Department [...] Info) Description 06/20/2024 10:[address] [facility] [address] [place] [address] iBlly Galloway Pharmacist [facility] [address] [place] [address] 06/20/2024 11:10 AM EST Telemedicine [facility] [address] [place] [phone] Kat Huitron DO [address] [place] [address] 06/27/2024 2:30 PM EST Office Visit Hematology/Oncology [facility]ashree Hobbs [place] [address] [facility] [phone] Korin Fisher CRNP [address] [place] [address] 06/28/2024 2:15 PM EST Procedure Only Urology, [facility] [address] [employer] [place] [address] Vinay Sexton MD [address] [place] [address] 07/07/2024 10:20 AM EST Office Visit Infectious Disease, [address] [phone] Mona Bland MD [address] [place] [address] 07/18/2024 1:20 PM EST Office Visit Rheumatology [address] [address] Alex Dempsey MD [address] [place] [address] 09/08/2024 3:40 PM EST Office Visit Nephrology, [address] [address] Bryson Ellis MD [address] [place] [address] 10/17/2024 10:30 AM EDT Office Visit Cardiology, [facility] 132 [facility] [place] [place] [address] Dmitri Greenfield DO [address] [facility] [place] [address] 03/21/2025 11:45 AM EDT Telemedicine Urology, [facility] 132 [facility] [place] [place] [address] Vinay Sexton MD [address] [place] [address] Scheduled Procedures Name Priority Associated Diagnoses Date/Ti [...] Additional history exists CKD PHOS USE SMARTSET 83731 06/06/202511/2023, 06/05/2024, 06/04/2024, Additional history exists CKD HGB USE SMARTSET 52275 06/13/202506/13, 06/13/2024, 06/08/2024, Additional history exists DTap/Tdap [...] D LEVEL ONCE IN A LIFETIME-USE SMARTSET# 62383 Completed 03/21/2024, 12/25/2023, 05/27/2021, Additional history exists [...] Discussed due to patient's condition Care Teams Optician Apprentice Relationship Specialty Start Date End Date Kat Huitron DO [address] [facility] [place] [address] PCP - General Family Medicine 07/11/19 documented as of this encounter
--- OUTSIDE RECORDS SUMMARY | 2024-11-18 02:22 | External Medical Summary | Summary of Care ---
Author Name Unknown Organization [facility] Address [address] [place] [facility] [place] [address] Phone [phone] Care Team Providers Care Corporate Recycling Manager Name Role Phone Rhianna Huitron DO Primary Care Provider [phone] Reason for Visit * Reason Onset Date Comments Fax 06/16/2024 [facility] Encounter Details Date Type Department Care Team (Late st Contact Info) Description 06/16/2024 Telephone [facility] [address] [place] [address] Rhianna Huitron DO [address] [place] [address] Fax ([facility]) Allergies Active Allergy Reactions Criticality Noted Date [...] tachycardia) ([facility]),Non-ischemic cardiomyopathy (HCC),Chronic HFrEF (heart failure with [...] Goal AUC 400-600 mg/L/hr 59.5 g 06/09/20 024 Active ampicillin-sulbact am IV IJ (AMBULATORY)Indica [...] glucose 12/16/2005 Macular degeneration 12/02/1999 DISC DIS [id number] documented as of this encounter (statuses as [...] colonoscopy in 5 years ARTHRITIS,RHEUMATOID 07/07/2006 016 [id number] 07/07/200611/01 Overview (11/16/2009): Renamed Per Clinical Trials Billing Project. Pt is a participant in the [employer] (Consortium of Rheumatology Researchers [place]) national data collection study. For further information please call Dr Hari Clark or Julia White, RN, CCRC at [phone] [facility] RESEARCH OTHER*[id number] 07/07/2006 01/28/2010 Overview (11/16/2009): Renamed Per Clinical Trials Billing Project. Pt is a participant in the [employer] (Consortium of Rheumatology Researchers [place]) national data collection study. For further information please call Dr Hari Clark or Julia White, RN, CCRC at [phone] ADVANCE DIRECTIVE INFORMATION 05/19/2006 06/06/2024 Overview (05/19/2006): [...] Telephone Encounter - Luba Mondragon LPN - 06/16/2024 4:56 PM EST Received Fax for BFPROVIDERS: Dr. Rhianna Huitron ORDER received from [facility] and FAXED documented in this encounter Plan of Treatment Upcoming Encounters Date Type Department Care Team (Late st Contact Info) Description 06/20/2024 10:00 AM EST Pharmacy Home [facility], [place] [address] [place] [address] Billy Galloway Pharmacist [facility] [address] [place] [address] 06/20/2024 11:10 AM EST Telemedicine [address] [phone] Rhianna Huitron DO [address] [place] [address] 06/27/2024 2:30 PM EST Telemedicine Hematology/Oncology [facility] [address] [facility] [phone] Korin Fisher CRNP 400 [facility] [place] [address] 06/28/2024 2:15 PM EST Procedure Only Urology, [facility] 132 [facility] [place] [address] Vinay Sexton MD [address] [place] [address] 07/07/2024 10:20 AM EST Office Visit Infectious Disease, [address] [phone] Mona Bland MD [address] [place] [address] 07/18/2024 1:20 PM EST Office Visit Rheumatology [address] [address] Mendel Wilson MD [address] [place] [address], [place] [address] 07/21/2024 2:30 PM EST Office Visit Cardiology, [facility] 132 [place] [address] Chiara Meyer CRNP 132 [place] [address] 09/08/2024 3:40 PM EST Office Visit Nephrology, [address] [address] Bryson Ellis MD [address] [place] [address] 10/17/2024 10:30 AM EDT Office Visit Cardiology, [facility] 132 [place] [address] Dmitri Greenfield DO 132 [place] [address] 03/21/2025 11:45 AM EDT Telemedicine Urology, [facility] 132 [place] [address] Vinay Sexton MD [address] [place] [address] Scheduled Procedures Name Priority Associated Diagnoses Date/Ti [...] Additional history exists CKD PHOS USE SMARTSET 31812 06/06/202511/2023, 06/05/2024, 06/04/2024, Additional history exists CKD HGB USE SMARTSET 15570 06/13/202506/13, 06/13/2024, 06/08/2024, Additional history exists DTap/Tdap [...] D LEVEL ONCE IN A LIFETIME-USE SMARTSET# 70720 Completed 03/21/2024, 12/25/2023, 05/27/2021, Additional history exists [...] Discussed due to patient's condition Care Teams Corporate Recycling Manager Relationship Specialty Start Date End Date Rhianna Huitron DO [address] [place] [address] PCP - General Family Medicine 07/11/19 documented as of this encounter
--- OUTSIDE RECORDS SUMMARY | 2024-11-18 02:22 | External Medical Summary | Summary of Care ---
Author Name Unknown Organization [facility] Address [address] [place] [address] Phone [phone] Care Team Providers Care Veneer Taping Machine Offbearer Name Role Phone Rhianna Huitron DO Primary Care Provider Reason for Visit * Reason Comments Medication Management Encounter Details Date Type Department Care Team (Late st Contact Info) Description 06/13/2024 4:15 PM EST Pharmacy [facility] [address] [place], [place] [phone] Billy Galloway Pharmacist [facility] [address] [place], [place] [phone] Allergies Active Allergy Reactions Criticality Noted Date [...] tablet by mouth daily 45 Tablet 3 Active Rosuvastatin Calcium 5 MG Oral Tablet [...] XL)Indications:NS VT (nonsustained ventricular tachycardia) ([facility]),Non-ischemi c cardiomyopathy ([facility]),Chronic HFrEF (heart failure with reduced ejection fraction) ([facility]) Take 1 Tablet by mouth in the morning and 1 Tablet before bedtime. 180 Tablet 1 Active Furosemide 20 MG Oral Tablet (Lasix)Indication s:FREDY (acute kidney injury) ([facility]),Hyponatremi a Take 1 Tablet by mouth in the morning and 1 Tablet before bedtime. 60 Tablet 5 Active Urea 15 GM Oral Packet (Ure-Na)Indicatio ns:FREDY (acute kidney injury) ([facility]),Hyponatremi a Take 15 g by mouth in the morning and 15 g before bedtime. 60 Packet 5 Active vancomycin IV IV (AMBULATORY) Administer 1,750 mg intravenously daily. Vancomycin Dose per Pharmacy for Goal AUC 400-600 mg/L/hr 59.5 g 024 2023 Active cefTRIAXone Sodium-Dextrose 2-2.22 GM-%(50ML) Intravenous Solution Reconstituted (Rocephin) Administer 2,000 mg at 100 mL/hr over 30 minutes intravenously daily. 1650 mL 024 2023 Discontinued documented as of this [...] glucose 12/16/2005 Macular degeneration 12/02/1999 DISC DIS [id number] documented as of this encounter (statuses as [...] colonoscopy in 5 years ARTHRITIS,RHEUMATOID 07/07/2006 016 [id number] 07/07/200611/01 Overview (11/16/2009): Renamed Per Clinical Trials Billing Project. Pt is a participant in the [facility] (Consortium of Rheumatology Researchers [place] national data collection study. For further information please call Dr Hari Clark or Julia White, RN, CCRC at [phone] [facility] RESEARCH OTHER*[id number] 07/07/2006 01/28/2010 Overview (11/16/2009): Renamed Per Clinical Trials Billing Project. Pt is a participant in the [employer] (Consortium of Rheumatology Researchers [place] national data collection study. For further information please call Dr Hari Clark or Julia White, RN, CCRC at [phone] ADVANCE DIRECTIVE INFORMATION 05/19/2006 06/06/2024 Overview (05/19/2006): Yes-advised to bring copy in to be scanned into EMR. Hearing loss 12/02/1999 03/29/2013 documented as of this encounter (statuses as of 06/14/2024) Immunizations Name Administration Dates Next Due COVID-19 mRNA, LNP-s, No Pre serve, 2-Dose Series ([employer]) 06/14/2021,10/10/2020,09/12/2020 COVID-19, LNP-s, No Preserve , Yousuf-sucrose, [...] documented in this encounter Progress Notes * Imani Torre, [facility] - 06/13/2024 4:26 PM EST [facility] OUTPATIENT PHARMACOKINETIC CONSULT 100 [facility] [address] Name: Markus Wharton Date: 06/13/2024 Time: 4:26 PM Bacteria being treated: Corynebacterium spp/ streptococcus spp. Source of infection: osteomyelitis Medications being managed: vancomycin Current regimen: Vancomycin 1750 mg IV every 24 hours Day of therapy: day number 11 Labs: (reviewed as indicated below) Date Dose sCr BUN WBC Vancomycin level Timing 06/08/24 1750mg Q24H 1.1 8 7.88 21.2 17 hr 30 min, inpatient InsightRx Summary: Analysis of the most recent level(s) using InsightRX gives the following patient-specific pharmacokinetic parameters: CL: 2.37 L/hr V: 50.7 L T1/2: 15.7 hours Using these values, the current regimen of Vancomycin 1750 mg IV every 24 hours is predicted to result in a steady-state trough of 11.4 mg/L and AUC24 of 557 mg/L.hr. Impression: 79 y/o referred to [facility] for outpatient pharmacokinetic monitoring of IV vancomycin. Start of care with home health on 06/11/24. Vancomycin AUC24 predicted to be within goal range using InsightRx PK software with parameters as above. The pharmacokinetic target for therapy is AUC24,SS (range) 400-600mg/L.hr. Renal function stable. Plan: Continue Vancomycin 1750 mg IV daily Next labs - CBC w/diff, CMP, CRP and vancomycin trough on Thursday06/13/24 Additional recommendations: Monitor renal function, fluid status and compliance closely. Expected end date: 07/13/24 Next scheduled Infectious Disease follow up appointment: 07/07/24 Contact info for questions/concerns: [facility] at [phone] Imani Torre [facility] Clinical Pharmacist 06/13/2024, 4:26 PM documented in this encounter Plan of Treatment Upcoming Encounters Date Type Department Care Team (Late st Contact Info) Description 06/20/2024 11:10 AM EST Office Visit [facility] [address] [place] [address] Rhianna Huitron DO [address] [place] [address] 06/27/2024 2:30 PM EST Office Visit Hematology/Oncology [facility] [address] [place] [address] Korin Fisher CRNP [address] [place] [address] 06/28/2024 2:15 PM EST Procedure Only Urology, [address] [address] Vinay Sexton MD [address] [place] [address] 07/07/2024 10:20 AM EST Office Visit Infectious Disease, [address] [phone] Mona Bland MD [address] [place] [address] 09/08/2024 3:40 PM EST Office Visit Nephrology, [address] [address] Bryson Ellis MD [address] [place] [phone] 10/17/2024 10:30 AM EDT Office Visit Cardiology, [address] [address] Dmitri Greenfield, DO [address] [place] [address] 03/21/2025 11:45 AM EDT Telemedicine Urology, [facility] [address] [place] [address] Vinay Sexton MD [address] [place] [address] [...] Additional history exists CKD PHOS USE SMARTSET 91497 06/06/20250 11/2023, 06/05/2024, 06/04/2024, Additional history exists CKD HGB USE SMARTSET 85441 06/13/202506/13, 06/13/2024, 06/08/2024, Additional history exists DTap/Tdap [...] D LEVEL ONCE IN A LIFETIME-USE SMARTSET# 10691 Completed 03/21/2024, 12/25/2023, 05/27/2021, Additional history exists [...] Discussed due to patient's condition Care Teams Veneer Taping Machine Offbearer Relationship Specialty Start Date End Date Rhianna Huitron DO [address] [facility] [place] [address] PCP - General Family Medicine 07/11/19 documented as of this encounter
--- OUTSIDE RECORDS SUMMARY | 2024-11-18 02:22 | External Medical Summary | Summary of Care ---
Author Name Unknown Organization [facility] Address [address] [place] [address] Phone [phone] Care Team Providers Care Associate Dean Of Women Name Role Phone Rhianna Huitron DO Primary Care Provider [phone] Encounter Details Date Type Department Care Team (Late st Contact Info) Description 06/16/2024 Orders Only [facility] [address] [place] [address] Mary Page MD [address] [place] [address] Allergies Active Allergy Reactions Criticality [...] XL)Indications:NSV T (nonsustained ventricular tachycardia) ([facility]),Non-ischemic cardiomyopathy (HCC),Chronic HFrEF (heart failure with reduced ejection fraction) ([facility]) Take 1 Tablet by mouth in the morning and 1 Tablet before bedtime. 180 Tablet 1 05/31/20 24 Active Furosemide 20 MG Oral Tablet (Lasix)Indications :FREDY (acute kidney injury) ([facility]),Hyponatremia Take 1 Tablet by mouth in the morning and 1 Tablet before bedtime. 60 Tablet 5 05/31/20 24 Active Urea 15 GM Oral Packet (Ure-Na)Indication s:FREDY (acute kidney injury) ([facility]),Hyponatremia Take 15 g by mouth in the morning and 15 g before bedtime. 60 Packet 5 05/31/20 24 Active vancomycin IV IV (AMBULATORY) Administer 1,750 mg intravenously daily. Vancomycin Dose per Pharmacy for Goal AUC 400-600 mg/L/hr 59.5 g 06/09/20 24 12/11/2 024 Active ampicillin-sulbact am IV IJ (AMBULATORY)Indica [...] glucose 12/16/2005 Macular degeneration 12/02/1999 DISC DIS [id number] documented as of this encounter (statuses as [...] colonoscopy in 5 years ARTHRITIS,RHEUMATOID 07/07/2006 016 [id number] 07/07/200611/01 Overview (11/16/2009): Renamed Per Clinical Trials Billing Project. Pt is a participant in the [employer] (Consortium of Rheumatology Researchers [place] national data collection study. For further information please call Dr Hari Clark or Julia White, RN, CCRC at [phone] [facility] RESEARCH OTHER*[id number] 07/07/2006 01/28/2010 Overview (11/16/2009): Renamed Per Clinical Trials Billing Project. Pt is a participant in the [employer] (Consortium of Rheumatology Researchers [place] national data collection study. For further information please call Dr Hari Clark or Julia White, RN, CCRC at [phone] ADVANCE DIRECTIVE INFORMATION 05/19/2006 06/06/2024 Overview (05/19/2006): [...] 06/20/2024 10:00 AM EST Pharmacy [facility] [place] [address] [place] [address] Mgmt, [employer] Pharmacist Antig [address] [place] [address] 06/20/2024 11:10 AM EST Telemedicine [facility] [address] [place] [phone] Rhianna Huitron DO [address] [place], [place] [phone] 06/27/2024 2:30 PM EST Telemedicine Hematology/Oncology [facility] 200 [facility] [place] [address] Korin Fisher CRNP [address] [place] [address] 06/28/2024 2:15 PM EST Procedure Only Urology, [facility] [address] [place] [address] Vinay Sexton MD [address] [place] [address] 07/07/2024 10:20 AM EST Office Visit Infectious Disease, [facility] [address] [place] [address] Mona Bland MD [address] [place] [address] 07/18/2024 1:20 PM EST Office Visit Rheumatology [address] [place] [address] Mendel Wilson MD [address] [place] [address] [place] [address] 07/21/2024 2:30 PM EST Office Visit Cardiology, [facility] [address] [facility] [place] [address] Chiara Meyer CRNP 132 [facility] [place] [address] 09/08/2024 3:40 PM EST Office Visit Nephrology, [address] [address] Bryson Ellis MD [address] [place] [address] 10/17/2024 10:30 AM EDT Office Visit Cardiology, [facility] 132 [facility] [place] [address] Dmitri Greenfield DO 132 [facility] [place] [address] 03/21/2025 11:45 AM EDT Telemedicine Urology, [facility] 132 [facility] [place] [address] Vinay Sexton MD [address] [place] [address] Scheduled Procedures Name Priority Associated Diagnoses Date/Ti me COLONOSCOPY FLEXIBLE PROXIMAL DIAGNOSTIC Recall Hx of colonic polyps Health Maintenance Due Date Last Done Comments Adult Wellness Visit 03/16/2020 03/16/2019 DXA Scan 01/10/2021 01/10/2019, 12/2005, 07/07/2006 Depression Screening 03/13/2021 03/13/2020 Albumin/Creatinine Ratio 04/10/2023 04/10/2022, 10/2006 *BISPHONATE OR OTHER ACCEPTABLE MEDICATION NEEDED FOR OSTEOPOROSIS (REFER TO SMARTSET #1146) 04/29/2023 Colonoscopy 01/22/2024 01/21/2019, 06/08/2018, 05/10/2013, Additional history exists COVID-19 Vaccine ( season) 2024 05/23/2022, 12/25/2021, 12/25/2021, Additional history exists GFR 12/11/2024 06/13/2024, 01/2024, 06/06/2024, Additional history exists HbA1c 06/02/2025 06/02/2024, 0 12/2023, 06/22/2023, Additional history exists CKD PHOS USE SMARTSET 11455 06/06/202511/2023, 06/05/2024, 06/04/2024, Additional history exists CKD HGB USE SMARTSET 90468 06/13/202506/13, 06/13/2024, 06/08/2024, Additional history exists DTap/Tdap [...] D LEVEL ONCE IN A LIFETIME-USE SMARTSET# 63410 Completed 03/21/2024, 12/25/2023, 05/27/2021, Additional history exists [...] Discussed due to patient's condition Care Teams Associate Dean Of Women Relationship Specialty Start Date End Date Rhianna Huitron DO [address] [place] [address] PCP - General Family Medicine 07/11/19 documented as of this encounter
--- OUTSIDE RECORDS SUMMARY | 2024-11-18 02:23 | External Medical Summary | Summary of Care ---
Author Name Unknown Organization [facility] Address [address] [place] [address] Phone [phone] Care Team Providers Care Signal Apprentice Name Role Phone Rhianna Huitron DO Primary Care Provider [phone] Reason for Visit * Reason Comments Medication Management Encounter Details Date Type Department Care Team (Late st Contact Info) Description 06/13/2024 4:15 PM EST Pharmacy Home [facility], [place] [address] [place], [place] [phone] Billy Galloway Pharmacist Antig [address] [place], [place] [phone] Allergies Active Allergy Reactions Criticality Noted Date Comments Brent Inhibitors Cough Low 11/26/2017 Alendronate Sodium Muscle pain 04/11/2019 Heartburn, constipation, joint pain Misoprostol Diarrhea 08/08/2003 Niacin Er (Antihyperlipidemic) 11/26/2010 Gas, hot flashes Pollen 01/01/2018 Watery eyes, sneezing Pravastatin 02/26/2007 Upset stomach, all .Statins Simvastatin 02/26/2007 Upset stomach documented as of this encounter (statuses as of 06/13/2024) Medications ASPIR-81 81 MG PO TBEC 1 [...] XL)Indications:NSV T (nonsustained ventricular tachycardia) ([facility]),Non-ischemic cardiomyopathy (HCC),Chronic HFrEF (heart failure with reduced ejection fraction) ([facility]) Take 1 Tablet by mouth in the morning and 1 Tablet before bedtime. 180 Tablet 1 05/31/20 24 Active Furosemide 20 MG Oral Tablet (Lasix)Indications :FREDY (acute kidney injury) ([facility]),Hyponatremia Take 1 Tablet by mouth in the morning and 1 Tablet before bedtime. 60 Tablet 5 05/31/20 24 Active Urea 15 GM Oral Packet (Ure-Na)Indication s:FREDY (acute kidney injury) ([facility]),Hyponatremia Take 15 g by mouth in the morning and 15 g before bedtime. 60 Packet 5 05/31/20 24 Active vancomycin IV IV (AMBULATORY) Administer 1,750 mg intravenously daily. Vancomycin Dose per Pharmacy for Goal AUC 400-600 mg/L/hr 59.5 g 06/09/20 24 024 Active cefTRIAXone Sodium-Dextrose 2-2.22 GM-%(50ML) Intravenous Solution Reconstituted (Rocephin) Administer 2,000 mg at 100 mL/hr over 30 minutes intravenously daily. 1650 mL 06/10/20 24 024 Active documented as of this encounter (statuses as of 06/13/2024) Active Problems Problem Noted Date Diagnosed Date [...] glucose 12/16/2005 Macular degeneration 12/02/1999 DISC DIS [id number] documented as of this encounter (statuses as of 06/13/2024) Resolved Problems Problem Noted Date Diagnosed Date [...] colonoscopy in 5 years ARTHRITIS,RHEUMATOID 07/07/2006 016 [id number] 07/07/200611/01 Overview (11/16/2009): Renamed Per Clinical Trials Billing Project. Pt is a participant in the [facility] (Consortium of Rheumatology [place]) national data collection study. For further information please call Dr Hari Clark or Julia White, RN, CCRC at [phone] [facility] RESEARCH OTHER*[id number] 07/07/2006 01/28/2010 Overview (11/16/2009): Renamed Per Clinical Trials Billing Project. Pt is a participant in the [employer] (Consortium of Rheumatology [place]) national data collection study. For further information please call Dr Hari Clark or Julia White, RN, CCRC at [phone] ADVANCE DIRECTIVE INFORMATION 05/19/2006 06/06/2024 Overview (05/19/2006): Yes-advised to bring copy in to be scanned into EMR. Hearing loss 12/02/1999 03/29/2013 documented as of this encounter (statuses as of 06/13/2024) Immunizations Name Administration Dates Next Due COVID-19 mRNA, LNP-s, No Pre serve, 2-Dose Series (EQUIP Advantage) 06/14/2021,10/10/2020,09/12/2020 COVID-19, LNP-s, No Preserve , Yousuf-sucrose, [...] this encounter Progress Notes * Imani Torre, [facility] - 06/13/2024 4:26 PM EST [facility] OUTPATIENT PHARMACOKINETIC CONSULT [address] [facility] [address] Name: Markus Wharton Date: 06/13/2024 Time: 4:26 [...] 557 mg/L.hr. Impression: 79 y/o referred to [facility] for outpatient pharmacokinetic monitoring [...] up appointment: 07/07/24 Contact info for questions/concerns: [facility] at [phone] Imani Torre RPh Clinical Pharmacist 06/13/2024, 4:26 PM documented in this encounter Plan of Treatment Upcoming Encounters Date Type Department Care Team (Late st Contact Info) Description 06/20/2024 11:10 AM EST Office Visit [facility] [address] [place] [phone] Rhianna Huitron DO [address] [place] [address] 06/27/2024 2:30 PM EST Office Visit Hematology/Oncology [facility] 200 [place] [address] Korin Fisher CRNP [address] [place] [address] 06/28/2024 2:15 PM EST Procedure Only Urology, [facility] [address] [place] [address] Vinay Sexton MD [address] [place] [address] 07/07/2024 10:20 AM EST Office Visit Infectious Disease, [address] [phone] Mona Bland MD [address] [place] [address] 09/08/2024 3:40 PM EST Office Visit Nephrology, [address] [address] Bryson Ellis MD [address] [place] [address] 10/17/2024 10:30 AM EDT Office Visit Cardiology, [facility] [address] [facility] [place] [address] Dmitri Greenfield, DO [address] [place] [address] 03/21/2025 11:45 AM EDT Telemedicine Urology, [facility] [address] [place] [address] Vinay Sexton MD [address] [place] [...] 12/25/2021, Additional history exists GFR 12/11/2024 06/13/2024, 0 01/2024, 06/06/2024, Additional history exists HbA1c 06/02/2025 06/02/2024, 0 12/2023, 06/22/2023, Additional history exists CKD PHOS USE SMARTSET 39184 06/06/20250 11/2023, 06/05/2024, 06/04/2024, Additional history exists CKD HGB USE SMARTSET 67152 06/08/202506/08, 06/08/2024, 06/06/2024, Additional history exists DTap/Tdap Vaccines (3 - [...] D LEVEL ONCE IN A LIFETIME-USE SMARTSET# 48909 Completed 03/21/2024, 12/25/2023, 05/27/2021, Additional history exists [...] Discussed due to patient's condition Care Teams Signal Apprentice Relationship Specialty Start Date End Date Rhianna Huitron DO [address] [place] [address] PCP - General Family Medicine 07/11/19 documented as of this encounter
--- OUTSIDE RECORDS SUMMARY | 2024-11-18 02:23 | External Medical Summary | Summary of Care ---
Author Name Unknown Organization [facility] Address [address] [place] [address] Phone [phone] Care Team Providers Care Manager Plan Name Role Phone Rhianna Huitron DO Primary Care Provider Reason for Visit * Reason Comments Outpatient Testing Encounter Details Date Type Department Care Team (Late st Contact Info) Description 06/13/2024 9:20 AM EST Laboratory Laboratory, [place] [address] [place] [address] St, Specimen Drop Off [address] [address] Urinary tract infection Allergies Active Allergy Reactions Criticality Noted Date [...] glucose 12/16/2005 Macular degeneration 12/02/1999 DISC DIS [id number] documented as of this encounter (statuses as [...] colonoscopy in 5 years ARTHRITIS,RHEUMATOID 07/07/2006 016 [id number] 07/07/200611/01 Overview (11/16/2009): Renamed Per Clinical Trials Billing Project. Pt is a participant in the [employer] (Consortium of Rheumatology [place]) national data collection study. For further information please call Dr Hari Clark or Julia White, RN, CCRC at [phone] [facility] RESEARCH OTHER*[id number] 07/07/2006 01/28/2010 Overview (11/16/2009): Renamed Per Clinical Trials Billing Project. Pt is a participant in the [employer] (Consortium of Rheumatology [place]) national data collection study. For further information please call Dr Hari Clark or Julia White, RN, CCRC at [phone] ADVANCE DIRECTIVE INFORMATION 05/19/2006 06/06/2024 Overview (05/19/2006): Yes-advised to bring copy in to be scanned into EMR. Hearing loss 12/02/1999 03/29/2013 documented as of this encounter (statuses as of 06/13/2024) Immunizations Name Administration Dates Next Due COVID-19 mRNA, LNP-s, No Pre serve, 2-Dose Series ([employer]) 06/14/2021,10/10/2020,09/12/2020 COVID-19, LNP-s, No Preserve , Yousuf-sucrose, [...] Visit [facility] [address] [place] [phone] Rhianna Huitron DO [address] [place] [address] 06/27/2024 2:30 PM EST Office Visit Hematology/Oncology [facility] [address] [place] [address] Korin Fisher CRNP [address] [place] [address] 06/28/2024 2:15 PM EST Procedure Only Urology, [facility] [address] [place] [address] Vinay Sexton MD [address] [place], [place] [phone] 07/07/2024 10:20 AM EST Office Visit Infectious Disease, [address] [phone] Mona Bland MD [address] [place] [address] 09/08/2024 3:40 PM EST Office Visit Nephrology, [address] [address] Bryson Ellis MD [address] [place] [phone] 10/17/2024 10:30 AM EDT Office Visit Cardiology, [address] [address] Dmitri Greenfield, DO [address] [place] [address] 03/21/2025 11:45 AM EDT Telemedicine Urology, [facility] [address] [place] [address] Vinay Sexton MD [address] [place] [address] Pending Results Name Type Priority Associated Diagnoses Date /Time COMPREHENSIVE METABOLIC PANEL Lab Routine Urinary tract infection 06/13/2024 8:45 AM EST CBC WITH WBC DIFFERENTIAL Lab Routine Urinary tract infection 06/13/2024 8:45 AM EST CRP (INFLAMMATORY MARKER) Lab Routine Urinary tract infection 06/13/2024 8:45 AM EST VANCOMYCIN TROUGH Lab Routine Urinary tract infection 06/13/2024 8:45 AM EST CBC Lab Routine Urinary tract infection 06/13/2024 8:45 AM EST DIFFERENTIAL, AUTOMATED Lab Routine Urinary tract infection 06/13/2024 8:45 AM EST Scheduled Procedures Name Priority Associated [...] 05/23/2022, 12/25/2021, 12/25/2021, Additional history exists GFR 12/06/2024 06/08/2024, 11/2023, 06/05/2024, Additional history exists HbA1c 06/02/2025 06/02/2024, 0 12/2023, 06/22/2023, Additional history exists CKD PHOS USE SMARTSET 26204 06/06/202511/2023, 06/05/2024, 06/04/2024, Additional history exists CKD HGB USE SMARTSET 18404 06/08/202506/08, 06/08/2024, 06/06/2024, Additional history exists DTap/Tdap [...] D LEVEL ONCE IN A LIFETIME-USE SMARTSET# 61355 Completed 03/21/2024, 12/25/2023, 05/27/2021, Additional history exists [...] infection Urinary tract infection, site not specified documented in this encounter Advance Directives * Full Code (Latest Code Status on File) Date Activated Date Inactivated Comments 06/01/2024 11:10 PM 06/10/2024 6:36 PM This order reflects the patients wishes and were consensually agreed upon. Question Answer Comments Discussion of Advance Direct teo occurred with: Not Discussed due to patient's condition Care Teams Manager Plan Relationship Specialty Start Date End Date Rhianna Huitron DO [address] [place] [address] PCP - General Family Medicine 07/11/19 documented as of this encounter
--- OUTSIDE RECORDS SUMMARY | 2024-11-18 02:23 | External Medical Summary | Summary of Care ---
Author Name Unknown Organization [facility] Address [address] [place] [address] Phone [phone] Care Team Providers Care Glucose And Syrup Weigher Name Role Phone Rhianna Huitron DO Primary Care Provider Encounter Details Date Type Department Care Team (Late st Contact Info) Description 06/14/2024 Documentation [facility] Infectious Disease [address], [place] [phone] Mary Page MD [address] [place] [address] Osteomyelitis of symphysis pubis (HCC)* [...] Hour (toPROL XL)Indications:NS VT (nonsustained ventricular tachycardia) ([facility]),Non-ischemi c cardiomyopathy ([facility]),Chronic HFrEF (heart failure with reduced ejection fraction) ([facility]) Take 1 Tablet by mouth in the morning and 1 Tablet before bedtime. 180 Tablet 1 Active Furosemide 20 MG Oral Tablet (Lasix)Indication s:FREDY (acute kidney injury) ([facility]),Hyponatremi a Take 1 Tablet by mouth in the morning and 1 Tablet before bedtime. 60 Tablet 5 Active Urea 15 GM Oral Packet (Ure-Na)Indicatio ns:FREDY (acute kidney injury) ([facility]),Hyponatremi a Take 15 g by [...] 6 hours. 348 g 024 2023 Active ampicillin-sulbac naylor IV IJ (AMBULATORY)Indic ations:Osteomyeli tis of symphysis pubis (HCC) Administer 12 g intravenously daily. 348 g 024 2023 Discontinued Hospital, Clinic, or [...] glucose 12/16/2005 Macular degeneration 12/02/1999 DISC DIS [id number] documented as of this encounter (statuses as [...] colonoscopy in 5 years ARTHRITIS,RHEUMATOID 07/07/2006 016 [id number] 07/07/200611/01 Overview (11/16/2009): Renamed Per Clinical Trials Billing Project. Pt is a participant in the [employer] (Consortium of Rhe[employer]ology [place] national data collection study. For further information please call Dr Hari Clark or Julia White, RN, CCRC at [phone] [facility] RESEARCH OTHER*[id number] 07/07/2006 01/28/2010 Overview (11/16/2009): Renamed Per Clinical Trials Billing Project. Pt is a participant in the [employer] (Consortium of Rheumatology [place] national data collection study. 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 Syndrome Osteomyelitis Microbiology Corynebacterium species and Streptococcus species Antibiotic Vancomycin Dose per Pharmacy for Goal AUC 400-600 mg/L/hr End Date 07/13/24 Syndrome Osteomyelitis Microbiology Parvimonas, Slackia Antibiotic Unasyn 3 gm iv q6 hours End Date 07/13/24 Vascular access: Remove intravascular access after completion of antibiotics Recommended followup imaging studies: Not applicable LABORATORY MONITORING: Lab Test Frequency End Date CBC with diff CMP Vancomycin level(s) for AUC monitoring Q week 07/13/24 Lab Test Frequency End Date CRP Q 2 weeks 07/13/24 PROVIDERS: Following ID Physician ID clinic follow-up date Jackelyn Page 07/07/24 scheduled w/ Dr. Bland documented in this encounter Plan of Treatment Upcoming Encounters Date Type Department Care Team (Late st Contact Info) Description 06/20/2024 11:10 AM EST Office Visit [address] [address] Rhianna Huitron, DO [address] [place] [address] 06/27/2024 2:30 PM EST Office Visit Hematology/Oncology [facility] [address] [facility] [address] Korin Fisher CRNP [address] [place] [address] 06/28/2024 2:15 PM EST Procedure Only Urology, [facility] 132 [facility] [place] [address] Vinay Sexton MD [address] [place] [address] 07/07/2024 10:20 AM EST Office Visit Infectious Disease, [address] [address] Mona Bland MD [address] [place] [address] 09/08/2024 3:40 PM EST Office Visit Nephrology, [address] [address] Bryson Ellis MD [address] [place] [address] 10/17/2024 10:30 AM EDT Office Visit Cardiology, [facility] 132 [facility] [place] [address] Dmitri Greenfield, 132 [facility] [place] [address] 03/21/2025 11:45 AM EDT Telemedicine Urology, [facility] [address] [place] [address] Vinay Sexton MD [address] [place] [address] [...] Additional history exists CKD PHOS USE SMARTSET 72100 06/06/202511/2023, 06/05/2024, 06/04/2024, Additional history exists CKD HGB USE SMARTSET 53325 06/13/202506/13, 06/13/2024, 06/08/2024, Additional history exists DTap/Tdap [...] D LEVEL ONCE IN A LIFETIME-USE SMARTSET# 73932 Completed 03/21/2024, 12/25/2023, 05/27/2021, Additional history exists [...] Discussed due to patient's condition Care Teams Glucose And Syrup Weigher Relationship Specialty Start Date End Date Rhianna Huitron DO [address] [place] [address] PCP - General Family Medicine 07/11/19 documented as of this encounter
--- OUTSIDE RECORDS SUMMARY | 2024-11-18 02:23 | External Medical Summary | Summary of Care ---
Author Name Unknown Organization [facility] Address [address] [place] [address] Phone [phone] Care Team Providers Care Gymnastics Coach Or Instructor Name Role Phone Rhianna Huitron DO Primary Care Provider [phone] Encounter Details Date Type Department Care Team (Late st Contact Info) Description 06/14/2024 Telephone Infectious Disease, [place] [address] [place] [address] Mary Page MD [address] [place] [address] Allergies Active Allergy Reactions Criticality [...] Hour (toPROL XL)Indications:NSV T (nonsustained ventricular tachycardia) ([facility]),Non-ischemic cardiomyopathy (HCC),Chronic HFrEF (heart failure with reduced ejection fraction) ([facility]) Take 1 Tablet by mouth in the morning and 1 Tablet before bedtime. 180 Tablet 1 05/31/20 24 Active Furosemide 20 MG Oral Tablet (Lasix)Indications :FREDY (acute kidney injury) ([facility]),Hyponatremia Take 1 Tablet by mouth in the morning and 1 Tablet before bedtime. 60 Tablet 5 05/31/20 24 Active Urea 15 GM Oral Packet (Ure-Na)Indication s:FREDY (acute kidney injury) ([facility]),Hyponatremia Take 15 g by mouth in the morning and 15 g before bedtime. 60 Packet 5 05/31/20 24 Active vancomycin IV IV (AMBULATORY) Administer 1,750 mg intravenously daily. Vancomycin Dose per Pharmacy for Goal AUC 400-600 mg/L/hr 59.5 g 06/09/20 24 024 Active ampicillin-sulbact am IV IJ (AMBULATORY)Indica tions:Osteomyeliti s of symphysis pubis (HCC) Administer 12 g intravenously daily. 348 g 06/14/20 24 024 Active Hospital, [...] glucose 12/16/2005 Macular degeneration 12/02/1999 DISC DIS [id number] documented as of this encounter (statuses as [...] colonoscopy in 5 years ARTHRITIS,RHEUMATOID 07/07/2006 016 [id number] 07/07/200611/01 Overview (11/16/2009): Renamed Per Clinical Trials Billing Project. Pt is a participant in the [employer] (Consortium of [place] [place] national data collection study. For further information please call Dr Hari Clark or Julia White, RN, CCRC at [phone] [facility] OTHER*[id number] 07/07/2006 01/28/2010 Overview (11/16/2009): Renamed Per Clinical Trials Billing Project. Pt is a participant in the [employer] ([employer]ortium of [place] [place] national data collection study. For further information please call Dr Hari Clark or Julia White, RN, CCRC at [phone] ADVANCE DIRECTIVE INFORMATION 05/19/2006 06/06/2024 Overview (05/19/2006): Yes-advised to bring copy in to be scanned into EMR. Hearing loss 12/02/1999 03/29/2013 documented as of this encounter (statuses as of 06/14/2024) Immunizations Name Administration Dates Next Due COVID-19 mRNA, LNP-s, No Pre serve, 2-Dose Series (Green [employer]) 06/14/2021,10/10/2020,09/12/2020 COVID-19, LNP-s, No Preserve , Yousuf-sucrose, [...] encounter Miscellaneous Notes * Telephone Encounter - Staggert, Cathy, BIT TRIPOLER - 06/14/2024 12:15 PM EST Abx change from CTX to unasyn communicated with Shante Diallo @ [facility]. Dr. Page spoke with Pt and made him aware. Cathy Urrutia LPN Nurse Navigator ID documented in this encounter Plan of Treatment Upcoming Encounters Date Type Department Care Team (Late st Contact Info) Description 06/20/2024 11:10 AM EST Office Visit [facility] [address] [place] [phone] Rhianna Huitron DO [address] [place] [address] 06/27/2024 2:30 PM EST Office Visit Hematology/Oncology [facility] [address] [place] [phone] Korin Fisher CRNP [address] [place] [address] 06/28/2024 2:15 PM EST Procedure Only Urology, [facility] [address] [facility] [place] [address] Vinay Sexton MD [address] [place] [address] 07/07/2024 10:20 AM EST Office Visit Infectious Disease, [address] [phone] Mona Bland MD [address] [place] [address] 09/08/2024 3:40 PM EST Office Visit Nephrology, [address] [place] [address] Bryson Ellis MD 400 [facility] [place] [address] 10/17/2024 10:30 AM EDT Office Visit Cardiology, [facility] [address] [facility] [place] [address] Dmitri Greenfield DO 132 [facility] [place] [address] 03/21/2025 11:45 AM EDT Telemedicine Urology, [facility] [address] [place] [address] Vinay Sexton MD 27 [facility] [place] [address] Scheduled Procedures Name Priority Associated Diagnoses Date/Ti [...] Additional history exists CKD PHOS USE SMARTSET 28463 06/06/202511/2023, 06/05/2024, 06/04/2024, Additional history exists CKD HGB USE SMARTSET 53680 06/13/202506/13, 06/13/2024, 06/08/2024, Additional history exists DTap/Tdap [...] D LEVEL ONCE IN A LIFETIME-USE SMARTSET# 44157 Completed 03/21/2024, 12/25/2023, 05/27/2021, Additional history exists [...] Discussed due to patient's condition Care Teams Gymnastics Coach Or Instructor Relationship Specialty Start Date End Date Rhianna Huitron DO [address] [place] [address] PCP - General Family Medicine 07/11/19 documented as of this encounter
--- OUTSIDE RECORDS SUMMARY | 2024-11-18 02:23 | External Medical Summary | Summary of Care ---
Author Name Unknown Organization [facility] Address [address] [place] [address] Phone [phone] Care Team Providers Care J2Ee Engineer Name Role Phone Rhianna Huitron DO Primary Care Provider Encounter Details Date Type Department Care Team (Late st Contact Info) Description 06/14/2024 Documentation [facility] [place] Infectious Disease [address], [place] [phone] Mary Page MD [address] [place] [address] Osteomyelitis of symphysis pubis (HCC)* [...] Hour (toPROL XL)Indications:NS VT (nonsustained ventricular tachycardia) ([facility]),Non-ischemi c cardiomyopathy ([facility]),Chronic HFrEF (heart failure with reduced ejection fraction) ([facility]) Take 1 Tablet by mouth in the morning and 1 Tablet before bedtime. 180 Tablet 1 Active Furosemide 20 MG Oral Tablet (Lasix)Indication s:FREDY (acute kidney injury) ([facility]),Hyponatremi a Take 1 Tablet by mouth in the morning and 1 Tablet before bedtime. 60 Tablet 5 Active Urea 15 GM Oral Packet (Ure-Na)Indicatio ns:FREDY (acute kidney injury) ([facility]),Hyponatremi a Take 15 g by mouth in the morning and 15 g before bedtime. 60 Packet 5 Active vancomycin IV IV (AMBULATORY) Administer 1,750 mg intravenously daily. Vancomycin Dose per Pharmacy for Goal AUC 400-600 mg/L/hr 59.5 g 024 2023 Active ampicillin-sulbac naylor IV IJ (AMBULATORY)Indic ations:Osteomyeli tis of symphysis pubis (HCC) Administer 12 g intravenously daily. 348 g 024 2023 Active cefTRIAXone Sodium-Dextrose 2-2.22 GM-%(50ML) Intravenous Solution Reconstituted (Rocephin) Administer 2,000 mg at 100 mL/hr over 30 minutes intravenously daily. 1650 mL 024 2023 Discontinued Hospital, Clinic, or Other Facility Administered Medication Ordered Dose Route Frequency Start Date End Date Status NSS 335 mL with Vancomycin 1,750 mg INFUSION 1750 mg CENTRAL IV Q24H 06/15/2024 4 Active sterile water for injection 20 mL with cefTRIAXone Sodium 2 g INFUSION 2 g CENTRAL IV Q24H 06/15/2024 4 Discontinued documented [...] glucose 12/16/2005 Macular degeneration 12/02/1999 DISC DIS [id number] documented as of this encounter (statuses as [...] colonoscopy in 5 years ARTHRITIS,RHEUMATOID 07/07/2006 016 [id number] 07/07/200611/01 Overview (11/16/2009): Renamed Per Clinical Trials Billing Project. Pt is a participant in the [employer] ([employer]ortium of [employer] [place]) national data collection study. For further information please call Dr Hari Clark or Julia White, RN, CCRC at [phone] [employer] RESEARCH OTHER*[id number] 07/07/2006 01/28/2010 Overview (11/16/2009): Renamed Per Clinical Trials Billing Project. Pt is a participant in the [employer] (Consortium of [employer] [place]) national data collection study. For further information please call Dr Hari Clark or Julia hWite RN, CCRC at [phone] ADVANCE DIRECTIVE INFORMATION 05/19/2006 06/06/2024 Overview (05/19/2006): [...] of Assessment Author No 06/01/2024 11:43 PM ERVINT Lucita Ledesma RN * Are you blind [...] Assessment Author Yes 06/01/2024 11:43 PM Lucita aHrrell RN * Because of a physical, mental, [...] Notes * Mary Page MD - 06/14/2024 11:59 AM EST UA (05/31): WBC >50 U cx [...] IR aspiration of the pelvic fluid - Change CTX to unasyn as below given new culture finding. Patient can get the first dose of unasynat home as he tolerated zosyn during recent hospitalization. - Continue vancomycin iv at current dose Syndrome Osteomyelitis Microbiology Corynebacterium species and Streptococcus species Antibiotic Vancomycin Dose per Pharmacy for Goal AUC 400-600 mg/L/hr End Date 07/13/24 Syndrome Osteomyelitis Microbiology Parvimonas, Slackia Antibiotic Unasyn 12 gm iv continuous over 24 hours End Date 07/13/24 Vascular access: Remove intravascular access after completion of antibiotics Recommended followup imaging studies: Not applicable LABORATORY MONITORING: Lab Test Frequency End Date CBC with diff CMP Vancomycin level(s) for AUC monitoring Q week 07/13/24 Lab Test Frequency End Date CRP Q 2 weeks 07/13/24 PROVIDERS: Following ID Physician ID clinic follow-up date Jackelyn Page 3-5 weeks documented in this encounter Plan of Treatment Upcoming Encounters Date Type Department Care Team (Late st Contact Info) Description 06/20/2024 11:10 AM EST Office Visit [facility] [address] [place] [phone] Rhianna Huitron DO [address] [place] [address] 06/27/2024 2:30 PM EST Office Visit Hematology/Oncology [facility] [address] [facility] [place] [phone] Korin Fisher CRNP [address] [place], [place] [phone] 06/28/2024 2:15 PM EST Procedure Only Urology, [facility] [address] [facility] [address] Vinay Sexton MD [address] [place] [address] 07/07/2024 10:20 AM EST Office Visit Infectious Disease, [address] [phone] Mona Bland MD [address] [place] [address] 09/08/2024 3:40 PM EST Office Visit Nephrology, [address] [address] Bryson Ellis MD [address] [place] [phone] 10/17/2024 10:30 AM EDT Office Visit Cardiology, [facility] [address] [facility] [place] [address] Dmitri Greenfield, 132 [facility] [place] [address] 03/21/2025 11:45 AM EDT Telemedicine Urology, [facility] 132 [facility] [place] [address] Vinay Sexton MD [address] [place] [...] Additional history exists CKD PHOS USE SMARTSET 81913 06/06/20250 11/2023, 06/05/2024, 06/04/2024, Additional history exists CKD HGB USE SMARTSET 30161 06/13/202506/13, 06/13/2024, 06/08/2024, Additional history exists DTap/Tdap [...] D LEVEL ONCE IN A LIFETIME-USE SMARTSET# 91204 Completed 03/21/2024, 12/25/2023, 05/27/2021, Additional history exists [...] Discussed due to patient's condition Care Teams J2Ee Engineer Relationship Specialty Start Date End Date Rhianna Huitron DO [address] [place], [place] [phone] PCP - General Family Medicine 07/11/19 documented as of this encounter
--- OUTSIDE RECORDS SUMMARY | 2024-11-18 02:24 | External Medical Summary ---
Author Name Unknown Address Unknown Organization K01:[facility] - [address] [place] [address] Laboratory Report Ordering Provider Test Date Status DESIREE STEHPENS 06/13/2024 08:45:00 Final Observation Date Value Abnormality Reference (Units ) Status SYNC LEUKOCYTES IN BLOOD BY AUTOMATED COUNT 06/13/2024 08:45:00 8.38 4.00-10.80 (K/uL) Final Segs 06/13/2024 08:45:00 79.0 Above high normal 40.0-75.0 (%) Final Lymphs % 06/13/2024 08:45:00 7.6 Below low normal 18.0-42.0 (%) Final Monos 06/13/2024 08:45:00 8.1 1.0-11.0 (%) Final Eosinophils 06/13/2024 08:45:00 4.1 0.0-6.0 (%) Final Basos 06/13/2024 08:45:00 0.7 0.0-2.0 (%) Final Immature Granulocyte, Percent 06/13/2024 08:45:00 0.5 0.0-2.0 (%) Final Absolute Segs 06/13/2024 08:45:00 6.62 1.80-7.70 (K/uL) Final Lymphs, absolute 06/13/2024 08:45:00 0.64 Below low normal 1.00-4.80 (K/ul) Final Monos, Abs 06/13/2024 08:45:00 0.68 0.00-1.10 (K/uL) Final Eos, Abs 06/13/2024 08:45:00 0.34 0.00-0.70 (K/uL) Final Basos, Abs 06/13/2024 08:45:00 0.06 0.00-0.20 (K/uL) Final Immature Granulocytes, Number 06/13/2024 08:45:00 0.04 0.00-0.20 (K/uL) Final Performing Location [facility] - [facility] [place] [address]
--- OUTSIDE RECORDS SUMMARY | 2024-11-18 02:24 | External Medical Summary | Summary of Care ---
Author Name Unknown Organization [facility] Address [address] [place] [address] Phone [phone] Care Team Providers Care Belly Packer Name Role Phone Rhianna Huitron DO Primary Care Provider Reason for Visit * Reason Comments Outpatient Testing Encounter Details Date Type Department Care Team (Late st Contact Info) Description 06/13/2024 9:20 AM EST Laboratory Laboratory, [place] [address] [place] [address] [address], Specimen Drop Off [address] [address] Urinary tract infection Allergies Active [...] Oral Packet (Ure-Na)Indication s:FREDY (acute kidney injury) ([facility]),Hyponatremia Take 15 g by mouth [...] glucose 12/16/2005 Macular degeneration 12/02/1999 DISC DIS [id number]-[id number] documented as of this encounter (statuses as [...] colonoscopy in 5 years ARTHRITIS,RHEUMATOID 07/07/2006 016 [id number] 07/07/200611/01 Overview (11/16/2009): Renamed Per Clinical Trials Billing Project. Pt is a participant in the [employer] (Consortium of [employer] [place] national data collection study. For further information please call Dr Hari Clark or Julia White, RN, CCRC at [phone] [facility] RESEARCH OTHER*[id number] 07/07/2006 01/28/2010 Overview (11/16/2009): Renamed Per Clinical Trials Billing Project. Pt is a participant in the [employer] (Consortium of Rheumatology [place] national data collection study. For further information please call Dr Hari Clark or Julia White, RN, CCRC at [phone] ADVANCE DIRECTIVE INFORMATION 05/19/2006 06/06/2024 Overview (05/19/2006): Yes-advised to bring copy in to be scanned into EMR. Hearing loss 12/02/1999 03/29/2013 documented as of this encounter (statuses as of 06/13/2024) Immunizations Name Administration Dates Next Due COVID-19 mRNA, LNP-s, No Pre serve, 2-Dose Series (HEALBE) 06/14/2021,10/10/2020,09/12/2020 COVID-19, LNP-s, No Preserve , Yousuf-sucrose, [...] Description 06/20/2024 11:10 AM EST Office Visit [facility] [address] [place] [phone] Rhianna Huitron DO [address] [place] [address] 06/27/2024 2:30 PM EST Office Visit Hematology/Oncology [facility] [address] [place] [address] Korin Fisher CRNP [address] [place] [address] 06/28/2024 2:15 PM EST Procedure Only Urology, [facility] [address] [place] [address] Vinay Sexton MD [address] [place], [place] [phone] 07/07/2024 10:20 AM EST Office Visit Infectious Disease, [address] [phone] Mona Bland MD [address] [place] [address] 09/08/2024 3:40 PM EST Office Visit Nephrology, [address] [address] Bryson Ellis MD [address] [place] [phone] 10/17/2024 10:30 AM EDT Office Visit Cardiology, [address] [address] Dmitri Greenfield, DO [address] [place] [address] 03/21/2025 11:45 AM EDT Telemedicine Urology, [facility] [address] [address] Vinay Sexton MD [address] [place] [address] Pending Results Name Type Priority Associated Diagnoses [...] Additional history exists CKD PHOS USE SMARTSET 01825 06/06/202511/2023, 06/05/2024, 06/04/2024, Additional history exists CKD HGB USE SMARTSET 83637 06/08/202506/08, 06/08/2024, 06/06/2024, Additional history exists DTap/Tdap [...] D LEVEL ONCE IN A LIFETIME-USE SMARTSET# 86947 Completed 03/21/2024, 12/25/2023, 05/27/2021, Additional history exists [...] Discussed due to patient's condition Care Teams Belly Packer Relationship Specialty Start Date End Date Rhianna Huitron DO [address] [place] [address] PCP - General Family Medicine 07/11/19 documented as of this encounter
--- OUTSIDE RECORDS SUMMARY | 2024-11-18 02:24 | External Medical Summary | Summary of Care ---
Author Name Unknown Organization [facility] Address [address] [place] [address] Phone [phone] Care Team Providers Care Dough Mixer Name Role Phone Rhianna Huitron DO Primary Care Provider Reason for Visit * Reason Comments Outpatient Testing Encounter Details Date Type Department Care Team (Late st Contact Info) Description 06/13/2024 9:20 AM EST Laboratory Laboratory, [place] [address] [place] [address] [address], Specimen Drop Off [address] [address] Arrived Allergies Active Allergy Reactions Criticality Noted Date Comments Bernt Inhibitors Cough Low 11/26/2017 Alendronate Sodium Muscle [...] glucose 12/16/2005 Macular degeneration 12/02/1999 DISC DIS DEE-MIP-EONCAD documented as of this encounter (statuses as [...] colonoscopy in 5 years ARTHRITIS,RHEUMATOID 07/07/2006 016 [id number] 07/07/200611/01 Overview (11/16/2009): Renamed Per Clinical Trials Billing Project. Pt is a participant in the [employer] (Consortium of [employer]ology [place] national data collection study. For further information please call Dr Hari Clark or Julia White, RN, CCRC at [phone] [facility] RESEARCH OTHER*[id number] 07/07/2006 01/28/2010 Overview (11/16/2009): Renamed Per Clinical Trials Billing Project. Pt is a participant in the [employer] (Consortium of Rheumatology [place] national data collection study. For further information please call Dr Hari Clark or Julia White, RN, CCRC at [phone] ADVANCE DIRECTIVE INFORMATION 05/19/2006 06/06/2024 Overview (05/19/2006): Yes-advised to bring copy in to be scanned into EMR. Hearing loss 12/02/1999 03/29/2013 documented as of this encounter (statuses as of 06/13/2024) Immunizations Name Administration Dates Next Due COVID-19 mRNA, LNP-s, No Pre serve, 2-Dose Series (itravel) 06/14/2021,10/10/2020,09/12/2020 COVID-19, LNP-s, No Preserve , Yousuf-sucrose, [...] Description 06/20/2024 11:10 AM EST Office Visit [facility] [place] [address] [place] [phone] Rhianna Huitron DO [address] [place] [address] 06/27/2024 2:30 PM EST Office Visit Hematology/Oncology [facility] [place] [address] [facility] [phone] Korin Fisher CRNP [address] [place] [address] 06/28/2024 2:15 PM EST Procedure Only Urology, [facility] [address] [place] [address] Vinay Sexton MD [address] [place] [address] 07/07/2024 10:20 AM EST Office Visit Infectious Disease, [address] [phone] Mona Bland MD [address] [place] [address] 09/08/2024 3:40 PM EST Office Visit Nephrology, [address] [address] Bryson Ellis MD [address] [place] [address] 10/17/2024 10:30 AM EDT Office Visit Cardiology, [facility] [address] [facility] [address] Dmitri Greenfield, 132 [facility] [place] [address] 03/21/2025 11:45 AM EDT Telemedicine Urology, [facility] [address] [place] [address] [...] Additional history exists CKD PHOS USE SMARTSET 31021 06/06/20250 11/2023, 06/05/2024, 06/04/2024, Additional history exists CKD HGB USE SMARTSET 96767 06/08/202506/08, 06/08/2024, 06/06/2024, Additional history exists DTap/Tdap [...] D LEVEL ONCE IN A LIFETIME-USE SMARTSET# 71821 Completed 03/21/2024, 12/25/2023, 05/27/2021, Additional history exists [...] Discussed due to patient's condition Care Teams Dough Mixer Relationship Specialty Start Date End Date Rhianna Huitron DO [address] [facility] [place] [address] PCP - General Family Medicine 07/11/19 documented as of this encounter
--- OUTSIDE RECORDS SUMMARY | 2024-11-18 02:24 | External Medical Summary ---
Author Name Unknown Address Unknown Organization K01:[facility] [place] [address] [facility] [place] [address] Laboratory Report Ordering Provider Test Date Status DESIREE STEPHENS 06/13/2024 08:45:00 Final Observation Date Value Abnormality Reference (Units ) Status BUN 06/13/2024 08:45:00 27 Above high normal 6-20 (mg/dL) Final Creatinine 06/13/2024 08:45:00 0.9 0.6-1.2 (mg/dL) Final Glomerular filtration rate/1.73 sq M.predicted [Volume Rate/Area] in Serum, Plasma or Blood by Creatinine-based formula (CKD-EPI) 06/13/2024 08:45:00 86 >=60 (mL/min) Final eGFR is calculated based on the CKD-EPI 2020 equation. Sodium 06/13/2024 08:45:00 132 Below low normal 135 -146 (mmol/L) Final Potassium 06/13/2024 08:45:00 4.0 3.5-5.1 (m mol/L) Final Cl 06/13/2024 08:45:00 91 Below low normal 98- 107 (mmol/L) Final CO2 06/13/2024 08:45:00 29 22-32 (mmo l/L) Final Anion gap 06/13/2024 08:45:00 12 7-15 (mmol /L) Final Glucose 06/13/2024 08:45:00 157 Above high normal 70 -120 (mg/dL) Final Albumin 06/13/2024 08:45:00 3.2 Below low normal 3.8 -5.0 (g/dL) Final AST (Aspartate aminotransferase) 06/13/2024 08:45:00 18 10-50 (U/L) Fin al Alk Phos 06/13/2024 08:45:00 72 35-130 (U/ L) Final Bilirubin, Total 06/13/2024 08:45:00 0.2 <=1 .2 (mg/dL) Final Calcium 06/13/2024 08:45:00 8.9 8.4-10.2 ( mg/dL) Final Protein 06/13/2024 08:45:00 5.9 Below low normal 6.0 -8.3 (g/dL) Final ALT (Alanine aminotransferase) 06/13/2024 08:45:00 12 10-50 (U/L) Joe jones Performing Location [facility] [place] [address] [facility] [address]
--- OUTSIDE RECORDS SUMMARY | 2024-11-18 02:24 | External Medical Summary ---
Author Name Unknown Address Unknown Organization K01:LABORATORY [address] [address] Laboratory Report Ordering Provider Test Date Status DESIREE STEPHENS 06/13/2024 08:45:00 Final Observation Date Value Abnormality Reference (Units ) Status WBC, Total 06/13/2024 08:45:00 8.38 4.00-10.80 (K/uL) Final RBC 06/13/2024 08:45:00 3.50 4.50-5.25 (M/uL) Final Hemoglobin 06/13/2024 08:45:00 9.3 Below low normal 14.0-16.8 (g/dL) Final HCT 06/13/2024 08:45:00 31.3 Below low normal 40.0-48.4 (%) Final MCV 06/13/2024 08:45:00 89.4 82.0-99.5 (fL) Final MCH 06/13/2024 08:45:00 26.6 27.0-34.0 (pg) Final MCHC 06/13/2024 08:45:00 29.7 32.0-36.0 (g/dL) Final RDW 06/13/2024 08:45:00 19.4 11.5-15.5 (%) Final Platelets 06/13/2024 08:45:00 320 140-400 (K/uL) Final MPV 06/13/2024 08:45:00 10.3 6.6-11.1 (fL) Final Nucleated erythrocytes/100 leukocytes [Ratio] in Blood by Automated count 06/13/2024 08:45:00 0 <=0 (/100 WBCs) Final Performing Location LAB[facility] [place] - [address] [place], [place] [address]allie [facility] [address]
--- OUTSIDE RECORDS SUMMARY | 2024-11-18 02:24 | External Medical Summary ---
Author Name Unknown Address Unknown Organization K01:LABORATORY [facility] [place] - [address] [place] [address] Laboratory Report Ordering Provider Test Date Status DESIREE STEPHENS 06/13/2024 08:45:00 Final Observation Date Value Abnormality Reference (Units ) Status Vancomycin, trough 06/13/2024 08:45:00 17.4 1 0.0-20.0 (ug/mL) Final Performing Location LABORATORY [facility] [place] - [address] [place] [address]
--- OUTSIDE RECORDS SUMMARY | 2024-11-18 02:24 | External Medical Summary ---
Author Name Unknown Address Unknown Organization K01:LABORATORY [facility] [place] - [address] [place] [address] Laboratory Report Ordering Provider Test Date Status DESIREE STEPHENS 06/13/2024 08:45:00 Final Observation Date Value Abnormality Reference (Units ) Status CRP, low-sensitivity 06/13/2024 08:45:00 38 Above high normal <=5 (mg/L) Final Performing Location LAB[facility]ORY [facility] [place] - [address] [place] [address]
--- OUTSIDE RECORDS SUMMARY | 2024-11-18 02:25 | External Medical Summary ---
Author Name Unknown Address Unknown Organization : Laboratory Report Ordering Provider Test Date Status AZALIA MTZ 06/07/2024 20:40:17 Final Observation Date Value Abnormality Reference (Units ) Status Glucose Point of Care 06/07/2024 20:40:17 133 Above high normal 70-120 (mg/dL) Final Performing Location
--- OUTSIDE RECORDS SUMMARY | 2024-11-18 02:25 | External Medical Summary | Summary of Care ---
Author Name Unknown Organization [facility] Address [address] [place] [address] Phone [phone] Care Team Providers Care Utility Division Project Manager Name Role Phone Kat Huitron DO Primary Care Provider Reason for Visit * Reason Onset Date Comments Hospital Follow-Up 06/09/2024 6wk hd/fu johnna t needed thanks Ella Encounter Details Date Type Department Care Team (Late st Contact Info) Description 06/09/2024 Telephone Rheumatology, [facility] [address] [place] [address] Specified, Moon No Resource [address] [place] [address] Hospital Follow-Up (6wk hd/fu appt [...] as of this encounter (statuses as of 06/09/2024) Medications Medication Sig Dispensed Refills Start Date End Date Status vancomycin IV IV (AMBULATORY) Administer 1,750 mg intravenously daily. Vancomycin Dose per Pharmacy for Goal AUC 400-600 mg/L/hr 59.5 g 4 07/13/20 24 Active cefTRIAXone Sodium-Dextrose 2-2.22 GM-%(50ML) Intravenous Solution Reconstituted (Rocephin) Administer 2,000 mg at 100 mL/hr over 30 minutes intravenously daily. 1650 mL 4 07/13/20 24 Active ASPIR-81 81 MG PO TBEC 1 TABLET DAILY 0 6 Suspended Acetaminophen 325 MG Oral Tablet (Tylenol) 2 Tablets. 4 Suspended Magnesium Oxide -Mg Supplement 400 (240 Mg) MG Oral Tablet (Mag-Ox) Take 1 Tablet by mouth in the morning and 1 Tablet before bedtime. 180 Tablet 3 4 Suspended Additional Information Patient not taking.Reported on 06/02/2024 Clopidogrel Bisulfate 75 MG Oral Tablet (Plavix) Take 1 Tablet by mouth in the morning. 90 Tablet 3 4 Suspended Additional Information Folic Acid 1 MG Oral TabletIndications:A rthritis, rheumatoid ([facility]) TAKE 1 TABLET BY MOUTH EVERY DAY IN THE MORNING 90 Tablet 3 4 Suspended Additional Information Tamsulosin HCl 0.4 MG Oral Capsule (Flomax) TAKE 1 CAPSULE BY MOUTH EVERY MORNING 90 Capsule 3 4 Suspended Additional Information Losartan Potassium 25 MG Oral Tablet (Cozaar) One half tablet by mouth daily 45 Tablet 3 4 Suspended Additional Information Rosuvastatin Calcium 5 MG Oral Tablet (Crestor) TAKE 1 TABLET BY MOUTH EVERY DAY IN THE MORNING 90 Tablet 3 4 Suspended Additional Information Albuterol Sulfate HFA 108 (90 Base) MCG/ACT Inhalation Aerosol Solution Inhale 1 Puff by mouth every 6 hours as needed for Wheezing. 4 Suspended Melatonin 3 MG Oral Tablet Take 2 Tablets by mouth at bedtime. 4 Suspended Metoprolol Succinate ER 25 MG Oral Tablet Extended Release 24 Hour (toPROL XL)Indications:NSVT (nonsustained ventricular tachycardia) ([facility]),Non-ischemic cardiomyopathy ([facility]),Chronic HFrEF (heart failure with reduced ejection fraction) ([facility]) Take 1 Tablet by mouth in the morning and 1 Tablet before bedtime. 180 Tablet 1 4 Suspended Additional Information Furosemide 20 MG Oral Tablet (Lasix)Indications: FREDY (acute kidney injury) (HCC),Hyponatremia Take 1 Tablet by mouth in the morning and 1 Tablet before bedtime. 60 Tablet 5 4 Suspended Additional Information Urea 15 GM Oral Packet (Ure-Na)Indications :FREDY (acute kidney injury) (HCC),Hyponatremia Take 15 g by mouth in the morning and 15 g before bedtime. 60 Packet 5 4 Suspended Additional Information documented as of this encounter (statuses as of 06/09/2024) Active Problems Problem Noted Date Diagnosed Date [...] 11/22/2009 Overview: ICD-10 update of inactive term Impaired fasting glucose 12/16/2005 Macular degeneration 12/02/1999 DISC DIS [id number] documented as of this encounter (statuses as of 06/09/2024) Resolved Problems Problem Noted Date Diagnosed Date [...] colonoscopy in 5 years ARTHRITIS,RHEUMATOID 07/07/2006 016 [id number] 07/07/200611/01 Overview: Renamed Per Clinical Trials Billing Project. Pt is a participant in the [employer] (Consortium of [employer] [place]) national data collection study. For further information please call Dr Hari Clark or Julia White, RN, CCRC at [phone] [facility] RESEARCH OTHER*[id number] 07/07/2006 01/28/2010 Overview: Renamed Per Clinical Trials Billing Project. Pt is a participant in the [employer] (Consortium of [employer] [place]) national data collection study. For further information please call Dr Hari Clark or Julia White, RN, CCRC at [phone] ADVANCE DIRECTIVE INFORMATION 05/19/2006 06/06/2024 Overview: Yes-advised to bring copy in to be scanned into EMR. Hearing loss 12/02/1999 03/29/2013 documented as of this encounter (statuses as of 06/09/2024) Immunizations Name Administration Dates Next Due COVID-19 mRNA, LNP-s, No Pre serve, 2-Dose Series ([employer]) 06/14/2021,10/10/2020,09/12/2020 COVID-19, LNP-s, No Preserve , Yousuf-sucrose, [...] documented as of this encounter Functional Status Functional Status Response Date of Assess ment Are you deaf or do you have serious difficulty h earing? No 06/01/2024 Are you blind or do you have serious difficulty seeing, even when wearing glasses? No 06/01/2024 Do you have serious difficul ty walking or climbing stairs? (5 years old or older) Yes 06/01/2024 Do you have difficulty dress ing or bathing? (5 years old or older) Yes 06/01/2024 Because of a physical, menta l, or emotional condition, do you have difficulty doing errands alone such as visiting a doctor s office or shopping? (15 years old or older) Yes 06/01/20 Cognitive Status Response Date of Assessm ent Because of a physical, menta l, or emotional condition, do you have serious difficulty concentrating, remembering, or making decisions? (5 years old or older) No 06/01/2024 documented as of this encounter Miscellaneous Notes * Telephone Encounter - Gianni Sotelo OSA - 06/09/2024 1:29 PM EST Please review and advise. KARLOS Qiu * Telephone Encounter - Ella Shelby OSA - 06/09/2024 1:15 PM EST Order RETURN APPT [[id number]] (Order [id number]) Janes Wharton 06/01/2024 11:08 PM Admission Description: 79 year old male Department: [facility] Message Patient Name: JANES WHARTON([id number]) Sex: Male : 1945 PCP: KAT HUITRON Center: [facility] Types of orders made on 06/09/2024: Holter, IP Post Discharge , Lab, Medications, Point of Care Testing, Point of Care Testing - Unso licited Results Order Date:06/09/2024 Ordering User:RYANNE HEBERT [[id number]] Attending Provider:Alex Kidd DO [[id number]] Authorizing Provider: Ryanne Hebert MD [[id number]] Department:[facility][[id number]] Order Specific Information Order: RETURN APPT [CUSTOM: [id number]] Order #: [id number]: [id number] Priority: Routine Class: Nursing Unit Department [...] 06/20/2024 11:10 AM EST Office Visit [facility] [address] [place], [place] [phone] Kat Huitron DO [address] [facility] [address] 06/27/2024 2:30 PM EST Office Visit Hematology/Oncology [facility] [place] [facility] [phone] Korin Fisher CRNP [address] [place] [address] [place] KAM[place] [id number] 06/28/2024 2:15 PM EST Procedure Only Urology, [facility] [address] [place] [address] Vinay Sexton MD [address] [place] [address] 07/07/2024 10:20 AM EST Office Visit Infectious Disease, [address] [phone] Mona Bland MD [address] [place] [address] 09/08/2024 3:40 PM EST Office Visit Nephrology, [address] [address] Bryson Ellis MD [address] [place] [address] 10/17/2024 10:30 AM EDT Office Visit Cardiology, [facility] [address] [facility] [place] [address] Dmitri Greenfield, [address] [facility] [place] [address] 03/21/2025 11:45 AM EDT Telemedicine Urology, [facility] [address] [place] [address] Vinay Sexton MD [address] [place] [address] Scheduled Procedures Name Priority Associated Diagnoses Date/Ti [...] 05/08/2022, 05/07/2021, 04/17/2020, Additional history exists GFR 12/06/2024 06/08/2024, 11/2023, 06/05/2024, Additional history exists HbA1c 06/02/2025 06/02/2024, 0 12/2023, 06/22/2023, Additional history exists CKD PHOS USE SMARTSET 41283 06/06/202511/2023, 06/05/2024, 06/04/2024, Additional history exists CKD HGB USE SMARTSET 54708 06/08/202506/08, 06/08/2024, 06/06/2024, Additional history exists DTap/Tdap [...] D LEVEL ONCE IN A LIFETIME-USE SMARTSET# [id number] Completed 03/21/2024, 12/25/2023, 05/27/2021, Additional history exists [...] Activated Date Inactivated Comments 06/01/2024 11:10 PM This order r eflects the patients wishes and were consensually agreed upon. Question Answer Comments Discussion of Advance Direct teo occurred with: Not Discussed due to patient's condition Care Teams Utility Division Project Manager Relationship Specialty Start Date End Date Kat Huitron DO [address] [place] [address] PCP - General Family Medicine 07/11/19 documented as of this encounter
--- OUTSIDE RECORDS SUMMARY | 2024-11-18 02:25 | External Medical Summary | Summary of Care ---
Author Name Unknown Organization [facility] Address [address] [facility] [place] [address] Phone [phone] Care Team Providers Care Type Cutter Name Role Phone Rhianna Huitron DO Primary Care Provider Reason for Visit * Reason Onset Date Comments FYI 06/08/2024 Encounter Details Date Type Department Care Team (Late st Contact Info) Description 06/08/2024 Telephone Access Center, [place] [facility] [address] [facility] *DO NOT REMOVE THIS DEPARTMENT* [place] [address] Services, Scheduling [address] [facility] [place] [address] Allergies Active Allergy Reactions Criticality Noted Date [...] PO TBEC 1 TABLET DAILY 0 06/19/2006 Suspended Acetaminophen 325 MG Oral Tablet (Tylenol) 2 Tablets. 09/03/2023 Suspended Magnesium Oxide -Mg Supplement 400 (240 Mg) MG Oral Tablet (Mag-Ox) Take 1 Tablet by mouth in the morning and 1 Tablet before bedtime. 180 Tablet 3 09/18/2023 Suspended Additional Information Patient not taking.Reported on 06/02/2024 Clopidogrel Bisulfate 75 MG Oral Tablet (Plavix) Take 1 Tablet by mouth in the morning. 90 Tablet 3 09/18/2023 Suspended Additional Information Folic Acid 1 MG Oral TabletIndications:A rthritis, rheumatoid (HCC) TAKE 1 TABLET BY MOUTH EVERY DAY IN THE MORNING 90 Tablet 3 09/21/2023 Suspended Additional Information Tamsulosin HCl 0.4 MG Oral Capsule (Flomax) TAKE 1 CAPSULE BY MOUTH EVERY MORNING 90 Capsule 3 12/23/2023 Suspended Additional Information Methotrexate Sodium 2.5 MG Oral TabletIndications:A rthritis, rheumatoid (HCC) TAKE 5 TABLETS BY MOUTH ONCE WEEKLY 65 Tablet 1 02/02/2024 Suspended Additional Information Losartan Potassium 25 MG Oral Tablet (Cozaar) One half tablet by mouth daily 45 Tablet 3 03/17/2024 Suspended Additional Information Rosuvastatin Calcium 5 MG Oral Tablet (Crestor) TAKE 1 TABLET BY MOUTH EVERY DAY IN THE MORNING 90 Tablet 3 05/04/2024 Suspended Additional Information Albuterol Sulfate HFA 108 (90 Base) MCG/ACT Inhalation Aerosol Solution Inhale 1 Puff by mouth every 6 hours as needed for Wheezing. 04/08/2024 Suspended Melatonin 3 MG Oral Tablet Take 2 Tablets by mouth at bedtime. 04/08/2024 Suspended Metoprolol Succinate ER 25 MG Oral Tablet Extended Release 24 Hour (toPROL XL)Indications:NSVT (nonsustained ventricular tachycardia) ([facility]),Non-ischemic cardiomyopathy (HCC),Chronic HFrEF (heart failure with reduced ejection fraction) (HCC) Take 1 Tablet by mouth in the morning and 1 Tablet before bedtime. 180 Tablet 1 05/31/2024 Suspended Additional Information Furosemide 20 MG Oral Tablet (Lasix)Indications: FREDY (acute kidney injury) (HCC),Hyponatremia Take 1 Tablet by mouth in the morning and 1 Tablet before bedtime. 60 Tablet 5 05/31/2024 Suspended Additional Information Urea 15 GM Oral Packet (Ure-Na)Indications :FREDY (acute kidney injury) (HCC),Hyponatremia Take 15 g by mouth in the morning and 15 g before bedtime. 60 Packet 5 05/31/2024 Suspended Additional Information documented as of this [...] glucose 12/16/2005 Macular degeneration 12/02/1999 DISC DIS [id number] documented as of this encounter (statuses as [...] colonoscopy in 5 years ARTHRITIS,RHEUMATOID 07/07/2006 016 [id number] 07/07/200611/01 Overview: Renamed Per Clinical Trials Billing Project. Pt is a participant in the [employer] (Consortium of Rheumatology Researchers [place] national data collection study. For further information please call Dr Hari Clark or Julia White, RN, CCRC at [phone] [facility] RESEARCH OTHER*[id number] 07/07/2006 01/28/2010 Overview: Renamed Per Clinical Trials Billing Project. Pt is a participant in the [employer] (Consortium of Rheumatology Researchers [place] national data collection study. For further information please call Dr Hari Clark or Julia White, RN, CCRC at [phone] ADVANCE DIRECTIVE INFORMATION 05/19/2006 06/06/2024 Overview: Yes-advised to bring copy in to be scanned into EMR. Hearing loss 12/02/1999 03/29/2013 documented as of this encounter (statuses as of 06/09/2024) Immunizations Name Administration Dates Next Due COVID-19 mRNA, LNP-s, No Pre serve, 2-Dose Series ([employer]) 06/14/2021,10/10/2020,09/12/2020 COVID-19, LNP-s, No Preserve , Yousuf-sucrose, Ages 12+ (Pf[employer]) 12/25/2021 Covid-19, Mrna, Lnp-s, Pf, B ivalent, 30 Mcg, IM, 12 yrs and above ([employer]) 05/23/2022 Pneumococcal Conjugate Vacc, 13 Valent (Prevnar) [...] Telephone Encounter - Alissa Beebe RN - 06/09/2024 10:33 AM EST Called patient. He states that he wanted to make sure that Dr Puente/ Korin knew he was admitted. He is being discharged today with home health services, he requested [facility] as he has had them before but is not sure who they were able to set him up with. He has a lab appt 06/20/24- he would like to see if he still needs labs. PSA 05/30/24, has had routine CBCd/ BMP as well as occasional LFTs while admitted. If he does need labs, he would like them through home health. Advised patient that he should not need lab work for us- he is being sent home on IV abx so ID soo be ordering routine labs for home anyhow. Advised him that I would make Korin and Dr Rangelware of admission, if there is any further lab work needed we will let him know. He verbalized understanding and appreciation for call. Scheduling: please cancel lab appt 06/20- patient aware. Dr Puente/ Korin: FYI on admission. If anything needed prior to follow up please let us know. * Telephone Encounter - Mary Hyatt OSA - 06/08/2024 3:49 PM EST Pt would like a call back from Korin. Please advise. documented in this encounter Plan of Treatment Upcoming Encounters Date Type Department Care Team (Late st Contact Info) Description 06/20/2024 10:00 AM EST Laboratory Laboratory, [place] [address] [place] [phone] [facility] [address] [place] [address] 06/27/2024 2:30 PM EST Office Visit Hematology/Oncology [facility] [address] [place] [phone] Korin Fisher CRNP [address] [place] [address] 06/28/2024 2:15 PM EST Procedure Only Urology, [facility] [address] [place] [address] Vinay Sexton MD [address] [place] [address] 07/07/2024 10:20 AM EST Office Visit Infectious Disease, [address] [phone] Mona Bland MD [address] [place] [address] 09/08/2024 3:40 PM EST Office Visit Nephrology, [address] [address] Bryson Ellis MD [address] [place] [address] [place] [address] 10/17/2024 10:30 AM EDT Office Visit Cardiology, [facility] [address] [facility] [place] [address] Dmitri Greenfield, [address] [place] [address] 03/21/2025 11:45 AM EDT Telemedicine Urology, [facility] [address] [facility] [place] [address] Vinay Sexton MD [address] [place] [address] Scheduled Procedures Name Priority Associated Diagnoses Date/Ti [...] 04/17/2020, Additional history exists GFR 12/06/2024 06/08/2024, 1111/2023, 06/05/2024, Additional history exists HbA1c 06/02/2025 06/02/2024, 040 12/2023, 06/22/2023, Additional history exists CKD PHOS USE SMARTSET 54029 06/06/202511/2023, 06/05/2024, 06/04/2024, Additional history exists CKD HGB USE SMARTSET 28889 06/08/202506/08, 06/08/2024, 06/06/2024, Additional history exists DTap/Tdap [...] D LEVEL ONCE IN A LIFETIME-USE SMARTSET# 40394 Completed 03/21/2024, 12/25/2023, 05/27/2021, Additional history exists [...] Discussed due to patient's condition Care Teams Type Cutter Relationship Specialty Start Date End Date Rhianna Huitron DO [address] [place] [address] PCP - General Family Medicine 07/11/19 documented as of this encounter
--- OUTSIDE RECORDS SUMMARY | 2024-11-18 02:25 | External Medical Summary | Summary of Care ---
Author Name Unknown Organization [facility] Address [address] [place] [address] Phone [phone] Care Team Providers Care Audio Specialist Name Role Phone Rhianna Huitron DO Primary Care Provider [phone] Reason for Visit * Auth/Cert Specialty Diagnoses / Procedures Referred By Clarke t Referred To Contact Diagnoses Osteomyelitis (HCC) osteomyolitis Mendel Kidd DO [address] [place] [address] Phone: tel: fax: [facility], [facility] [address] [place] [address] Referral ID Status Reason Start Date Expiration Date Visits Re quested Visits Authorized [id number] Encounter Details Date Type Department Care Team (Latest Contact Info) Description 06/01/2024 11:08 PM EDT - 06/10/2024 2:30 PM EST Hospital Encounter [facility] 6, [facility] Advanced Medicine 6th Floor [address] [place] [address] Mendel Kidd DO [address] [place] [address] Yaniv Ramirez MD [address] [place] [address] Jennifer Sexton MD [address] [facility] Hospital[facility] Services [place], [place] [id number] Frank Fleming MD [address] [facility] [place] [address] August Hebert MD [address] [facility] [place] [address] Diagnostic Clarification Discharge Disposition: Home with Services Allergies Active Allergy Reactions Criticality Noted Date Comments Brent Inhibitors Cough Low 11/26/2017 Alendronate Sodium Muscle pain 04/11/2019 Heartburn, constipation, joint pain Misoprostol Diarrhea 08/08/2003 Niacin Er (Antihyperlipidemic) 11/26/2010 Gas, hot flashes Pollen 01/01/2018 Watery eyes, sneezing Pravastatin 02/26/2007 Upset stomach, all .Statins Simvastatin 02/26/2007 Upset stomach documented as of this encounter (statuses as of 06/11/2024) Medications ASPIR-81 81 MG PO TBEC 1 [...] Hour (toPROL XL)Indications:NS VT (nonsustained ventricular tachycardia) ([facility]),Non-ischemi c cardiomyopathy ([facility]),Chronic HFrEF (heart failure with reduced ejection fraction) ([facility]) Take 1 Tablet by mouth in the morning and 1 Tablet before bedtime. 180 Tablet 1 Active Furosemide 20 MG Oral Tablet (Lasix)Indication s:FREDY (acute kidney injury) ([facility]),Hyponatremi a Take 1 Tablet by mouth in the morning and 1 Tablet before bedtime. 60 Tablet 5 Active Urea 15 GM Oral Packet (Ure-Na)Indicatio ns:FREDY (acute kidney injury) ([facility]),Hyponatremi a Take 15 g by [...] minutes intravenously daily. 1650 mL 024 2023 Active Tee Ricardo In Vitro Strip (Glucose Blood) Type 2 diabetes, check blood sugars 2 times a day, in am and pm. 100 Strip 1 024 2023 Discontinued Methotrexate Sodium 2.5 MG Oral TabletIndications :Arthritis, rheumatoid ([facility]) TAKE 5 TABLETS BY MOUTH ONCE WEEKLY 65 Tablet 1 024 2023 Discontinued documented as of this encounter (statuses as of 06/11/2024) Active Problems Problem Noted Date Diagnosed Date [...] glucose 12/16/2005 Macular degeneration 12/02/1999 DISC DIS [id number] documented as of this encounter (statuses as of 06/11/2024) Resolved Problems Problem Noted Date Diagnosed Date [...] colonoscopy in 5 years ARTHRITIS,RHEUMATOID 07/07/2006 016 [id number] 07/07/200611/01 Overview (11/16/2009): Renamed Per Clinical Trials Billing Project. Pt is a participant in the [facility] ([employer]ortium of [employer] [place]) national data collection study. For further information please call Dr Hari Clark or Julia White, RN, CCRC at [phone] [facility] RESEARCH OTHER*[id number] 07/07/2006 01/28/2010 Overview (11/16/2009): Renamed Per Clinical Trials Billing Project. Pt is a participant in the [facility] ([employer]ortium of [employer] [place]) national data collection study. For further information please call Dr Hari Clark or Julia White, RN, CCRC at [phone] ADVANCE DIRECTIVE INFORMATION 05/19/2006 06/06/2024 Overview (05/19/2006): Yes-advised to bring copy in to be scanned into EMR. Hearing loss 12/02/1999 03/29/2013 documented as of this encounter (statuses as of 06/11/2024) Immunizations Name Administration Dates Next Due COVID-19 mRNA, LNP-s, No Pre serve, 2-Dose Series ([employer]) 06/14/2021,10/10/2020,09/12/2020 COVID-19, LNP-s, No Preserve , Yousuf-sucrose, [...] Sign Reading Time Taken Comments Blood Pressure 123/58 06/10/2024 11:03 AM EST Pulse 80 06/10/2024 11:03 AM EST Temperature 36.8 °C (98.2 °F) 06/10/2024 11:[address] Respiratory Rate 20 06/10/2024 11:03 AM EST Oxygen Saturation 97% 06/10/2024 11:03 AM EST Inhaled Oxygen Concentration - - Weight 131.1 kg (289 lb) 06/10/2024 6:25 AM EST Height 188 cm (6' 2") 06/01/2024 11:15 PM EDT Body Mass Index 37.11 06/01/2024 11:15 PM EDT documented in this [...] Lucita Ledesma RN documented in this encounter Discharge Summaries * August Hebert MD - 06/10/2024 11:46 AM EST [address] [address] Admission Date: 06/01/2024 Discharge Date: 06/10/2024 RECOMMENDED TO DO FOR NEXT PROVIDER(S): CBC with diff, CMP Q weekly and CRP every 2 weeks while on IV antibiotics. Vancomycin monitoring per pharmacy. Labs should be forwarded to Dr Page of Infectious diseases Remove intravascular access after completion of antibiotics Follow up with Infectious Diseases Follow up with Urology Keep appointment with Hematology/Oncology for metastatic prostate cancer Follow up with Cardiology. 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 ADMISSION HISTORY & PHYSICAL EXAM (focused): PRESENTING PROBLEM/CHIEF COMPLAINT: Generalized weakness and confusion HISTORY OF PRESENT ILLNESS: Patient is a 79 year old male with a medical history significant for CAD with [place] s/p AFSANEH to LAD in 08/2023 on aspirin and plavix, chronic HFrEF (EF 45%) on GDMT, NICM, hypertension, history of metastatic prostate cancer s/p palliative radiation and lupron with chronic indwelling ingram catheter (exchanged here by urology on 06/02), BPH, history of UTI, rheumatoid arthritis, prediabetes (A1c 6%), CKD IIIA, dyslipidemia who was experiencing some confusion and generalized weakness prior to admission. His outpatient labs on 05/30 were notable for hyponatremia to 120. At that point, patient's health services administrator had recommended he to go to the ED to seek medical attention. In the ED, he was found to be tachycardic, hypotensive and febrile to 101F. A CTA A/P was done which showed "findings consistent with an extensive infectious process involving the prostate, seminal vesicles, bladder, symphysis pubis and adjacent soft tissues with multiple locules of extraluminal gas and a 6.3 x 1.5 cm parasymphyseal collection consistent with an abscess. Associated erosion of themedial bilateral pubic bones with widening of the symphysis consistent with osteomyelitis. A gas-forming infectious process can not be excluded." He received Vancomycin & zosyn, 1L crystalloids and 1 dose of albumin. Additionally, he did go into new onset Afib with RVR HR into the 140's but it a borted with 1 dose of metoprolol and hasn't recurred since. Troponin was also noted to be elevated to 400's. Decision was made to transfer to [facility] for possible IR drainage/bone biopsy. Urology was consulted on admission, there is low suspicion for necrotizing fasciitis. He has a pubourethral fistula which would be exacerbated by scoping. CT scan did comment on malpositioned ingram catheter so ingram was exchanged by urology here at [facility] on 06/02. HOSPITAL COURSE (focused): Markus Wharton is a 79-year-old male with a past medical history of CAD, HFrEF (EF 35 - 40%), hypertension, metastatic prostate cancer (status post palliative radiation and Lupron with chronic indwelling Ingram catheter), BPH, RA, prediabetes, CKD 3A, hyperlipidemia, known puboprostatic fistula whowas initially admitted to the ICU for septic shock.Patient subsequently weaned off of vasopressors and transferred to the general medical floor. Evaluated by Urology and Infectious Disease while in ICU. Urology is not recommending any acute urologic intervention during hospitalization at this time.Infectious Disease is following and making antibiotic recommendations. IR aspirated abscess 06/06. Septic Shock (Resolved) Possible para symphyseal Abscess Suspected Pubic Symphysis OM Complicated UTI Known Puboprostatic Fistula: Blood and urine cx from [facility] NGTD. U cx (05/31) OSH: Streptococcus dysgalactiae, C striatum/simulans sp U cx (06/01) OSH: 3 types of organisms Evaluated by Urology. No interventions, maintain Ingram catheter and follow up as an outpatient ID following - plan for ceftriaxone/vancomycin till 07/13 with weekly labs. Follow up finalized cultures from IR aspirate. PICC line placed CAD and [place] s/p AFSANEH to LAD in 08/2023 Chronic HFrEF (EF 35-40%) HTN/HLD: Euvolemic on exam at the time of discharge. Significantly elevated trops on admission, felt to be demand related to shock on admission. Had no symptoms to suggest ACS. TTE does have further reduced EF and WMA. 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 He was evaluated by Cardiology while at [facility] Reported AFib in the ER at [facility] Strips are not available. Per Cardiology note at [facility], seems to have been sinus tachycardia. There has been no episode of AFib at [facility]. He is being discharged with a Zio patch forfurther evaluation. To follow up with his supervisor metal fabricating Acute on chronic hyponatremia, SIADH: Sodium remained stable and 134 at the time of discharge Rheumatoid arthritis: MARKETING AND PUBLIC RELATIONS MANAGER methotrexate being held in the setting of active infection. This was discussed with his regularrheumatologist as well. To follow up with his trade manager for resumption. Stage III Ulcer, Gluteal Folds: Home health arranged; continue Wound Care at home and follow up in the Wound Care Clinic He was discharged in a hemodynamically and pulmonary stock stable condition and will follow up with his PCP, Infectious diseases, Urology, Hematology and Oncology another services as above. snf facility was offered but the patient preferred to go home with home health stating that he wasat his baseline mobility. Family providing support. Operations & Procedures: Arterial line placement and removal, PICC line placement Complications: none significant Significant Lab and Imaging Results: As mentioned above Results Pending at Discharge: Lab Results Pending at Discharge: VANCOMYCIN RANDOM TIMED BASIC METABOLIC PANEL Routine MEDICATION UPDATES AT DISCHARGE START taking these medications INSTRUCTIONS cefTRIAXone in dextrose 2-2.22 GM-%(50ML) Solr Commonly known as: Rocephin Administer 2,000 mg at 100 mL/hr over 30 minutes intravenously daily. vancomycin IV (AMBULATORY) Commonly known as: Vancocin Administer 1,750 mg intravenously daily. Vancomycin Dose per Pharmacy for Goal AUC 400-600 mg/L/hr CONTINUE taking these medications INSTRUCTIONS Acetaminophen 325 MG Tablet Commonly known as: Tylenol 2 Tablets. albuterol HFA 108 (90 BASE) MCG/ACT inhaler Inhale 1 Puff by mouth every 6 hours as needed for Wheezing. Aspirin 81 81 MG [facility] Generic drug: aspirin enteric coated 1 TABLET DAILY clopidogrel 75 MG Tablet Commonly known as: Plavix Take 1 Tablet by mouth in the morning. folic acid 1 MG Tablet TAKE 1 TABLET BY MOUTH EVERY DAY IN THE MORNING Furosemide 20 MG Tablet Commonly known as: Lasix Take 1 Tablet by mouth in the morning and 1 Tablet before bedtime. losartan 25 MG Tablet Commonly known as: Cozaar One half tablet by mouth daily melatonin 3 MG Tablet Take 2 Tablets by mouth at bedtime. metoprolol succinate XL 25 MG Tb24 Commonly known as: toPROL XL Take 1 Tablet by mouth in the morning and 1 Tablet before bedtime. rosuvastatin 5 MG Tablet Commonly known as: Crestor TAKE 1 TABLET BY MOUTH EVERY DAY IN THE MORNING tamsulosin 0.4 MG Capsule Commonly known as: Flomax TAKE 1 CAPSULE BY MOUTH EVERY MORNING Urea 15 g Pack Commonly known as: Ure-Na Take 15 g by mouth in the morning and 15 g before bedtime. STOP taking these medications Methotrexate Sodium 2.5 MG Tablet CONTINUE taking these medications but follow up with your Primary Care Physician (PCP). INSTRUCTIONS Magnesium Oxide -Mg Supplement 400 (240 Mg) MG Tablet Commonly known as: Mag-Ox Take 1 Tablet by mouth in the morning and 1 Tablet before bedtime. SCHEDULED FOLLOW-UP: Future Appointments Appt Date/Time Provider Department 06/20/2024 11:10 AM Rhianna Huitron DO [facility] 06/27/2024 2:30 PM Korin Fisehr CRNP Hematology/Oncology [facility] 06/28/2024 2:15 PM Vinay Sexton MD Urology, [facility] 07/07/2024 10:20 AM Mona Bland MD Infectious Disease, [facility] 09/08/2024 3:40 PM Bryson Ellis MD Nephrology, [facility] 10/17/2024 10:30 AM Dmitri Greenfield DO Cardiology, [facility] 03/21/2025 11:45 AM Vinay Sexton MD Urology, [facility] Other Information Indwelling Devices: LINES ALL Duration Urethral Catheter Coude 8 days Power PICC Single Lumen Right;Upper Arm 1 day Vital Signs (last recorded): Most Recent Systolic BP: 123 mmHg (06/10/24 1103) Most Recent Diastolic BP: 58 mmHg (06/10/24 1103) Pulse: 80 (06/10/24 1103) Resp: 20 (06/10/24 1103) Most Recent Temperature: 36.78 C (06/10/24 1103) Weight: 131.1 kg (289 lb) (06/10/24 0625) SpO2: 97 % (06/10/24 110) O2 flow rate: 0 L/MIN (06/08/24 1036) Allergies: Fosamax [alendronate sodium], Misoprostol, Niaspan [niacin er (antihyperlipidemic)], Pollen, Pravastatin, Simvastatin, and Brent inhibitors Activity: as tolerated Diet: cardiac diet Code Status: Full Code Condition on Discharge: stable Isolation status: None Cognition: normal HOSPITAL CONSULTS ORDERED: ADULT PHYSICAL THERAPY CONSULT IP ADULT OCCUPATIONAL THERAPY CONSULT IP CARE MANAGEMENT CONSULT IP UROLOGY CONSULT IP WOUND/OSTOMY CONSULT IP WOUND/OSTOMY CONSULT IP INFECTIOUS DISEASE CONSULT IP PHARMACY CONSULT IP BLOOD MANAGEMENT CONSULT IP IV THERAPY CONSULT IP REFERRING PHYSICIAN: REF: NED BENNETT PRIMARY CARE PROVIDER: PCP: Rhianna Huitron DO [address] [place] [phone] (office) [phone] (fax) Note: To contact a physician responsible for this patient’s hospital care, please call [facility] [phone]. I certify this patient is confined to the home and needs intermittent assisted care, physical therapy and/or speech therapy, or continues to need occupational therapy. The patient is under my care and I have authorized services on this plan of care. The clinical findings of decrease in functional mobility secondary to decreased strength, decreased balance, and decreased endurance due to recent hospitalization and overall medical condition support the need for home health, and the patientdemonstrates a considerable and taxing effort when attempting to leave the home. The patient had a [id number]-[id number] encounter with an allowed provider type on 06/09/2024 and the encounter was related to the primary reason for home health care. Under situations in which I am an acute/post acute facilityphysician who will not be following the patient's plan of care, I authorized services on this plan of care and I transfer the patient for plan of care certification to the primary care physician named below who will follow the patient and update the plan of care. Primary care physician Rhianna Huitron DO I spent a total of 40 minutes coordinating, documenting, and providing care for this patient excluding time spent in the performance of separately billed services. documented in this encounter Discharge Instructions * Discharge Instr - AVS* August Hebert MD - 06/06/2024 2:36 PM EST Discharge Date: 06/10/2024 The information below provides you with the instructions and the list of medications you need to betaking following discharge from the hospital. If you have any questions, please ask before leaving. If you have questions after leaving, you can reach us at the numbers below. YOUR HOSPITAL PROVIDERS: Discharging Provider: August Hebert MD Provider Department: Hospital Medicine To reach this Provider Thursday through Thursday (8:00 AM to 4:30 PM) for any questions or test results: Call [phone] For after-hours concerns: Call [phone] and have your provider paged, or the provider calendar control clerk blood bank for the Department of Hospital Medicine paged. Please note, the discharging provider will not be able to provide you with any medications refills.Please discuss these with your primary care provider. Worsening Symptoms: If you have new symptoms, or your symptoms get worse, please contact your Discharge Provider or Primary Care Provider (PCP). If these providers are not available, you can go to your local [facility] services or Urgent Care Clinic during their business hours. In an EMERGENCY situation: Call 911 or go to the nearest emergency room. A BRIEF SUMMARY OF YOUR HOSPITAL STAY: You came to the hospital with: Generalized weakness and confusion Your main diagnosis at discharge was: Septic Shock (Resolved) Presumed para symphyseal Abscess Suspected Pubic Symphysis osteomyelitis Complicated urinary tract infection Puboprostatic Fistula Acute on chronic hyponatremia (resolved) Metastatic Prostate Cancer Operations & Procedures performed: Arterial line placement and removal, PICC line placement Complications: none significant Inpatient test results that are pending at discharge: Finalized cultures from IR drainage from pubic abscess; no growth to date Advance Directive Documented: Advance Directive Does the Patient have an Advance Directive? Yes YOUR FOLLOW UP APPOINTMENTS: Primary Care Provider Information: PCP: Rhianna Huitron DO [facility] / [place] [address] (office) [phone] (fax) An appointment was requested with your PCP (Rhianna Huitron DO) within 7 days. (Please take this form to this visit with your primary care physician.) You need the following studies in the future: As below INSTRUCTIONS: Diet: Previous diet Activity: As tolerated Wound Care Foam dressing to buttocks wounds , change every 3 days and as needed with soiling/rolling up, can be lifted and re-adhered for routine skin assessments. If unable to maintain foam dressing due to incontinence, No sting barrier film to bilateral buttock wounds Q shift, allow to dry, top with moisture barrier cream. Avoid simultaneous use of moisture barrier cream and foam dressing to prevent maceration. Turn and reposition Q 2 hours Limit time sitting to < 2 hours at a time; utilize waffle/bubble cushion while sitting PICC (Peripherally Inserted Catheter) Care: Prevent Infection. Use good hand hygiene by following the guidelines on this sheet. Don't touch thecatheter or dressing unless you need to. Always clean your hands before and after you come in contact with any part of the PICC. To wash your hands with soap and water: Wet your hands with warm water. (Avoid hot water, which can cause skin irritation when you wash your hands often) Apply enough soap to cover the entire surface of your hands, including your fingers. Rub your hands together briskly for at least 15 seconds. Make sure to rub the front and back of each hand up to the wrist, your fingers and fingernails, between the fingers, and each thumb. Rinse your hands with warm water. Dry your hands completely with a new, unused paper towel. Don't use a cloth towel or other reusabletowel. These can harbor germs. Use the paper towel to turn off the faucet, then throw it away. If you're in a bathroom, also use apaper towel to open the door instead of touching the handle. Keep the PICC dry. The catheter and dressing must stay dry. Don't go swimming, use a tub, or do other things that could get the PICC wet. When it comes to bathing, also avoid getting the catheter wet. You may use plastic wrap and tape to keep the catheter and dressing dry. You may also ask the homehealth nurse what products they may have to keep things dry. If the dressing does get wet, call [facility] right away for help. Avoid activities or exercises that require major use of the arm. Additional Instructions: - Call your primary care physician or seek medical attention if recurrent confusion, weakness, persistent fevers, issues with PICC line, issues with antibiotics, chest pains, shortness of breath or any other concerning symptoms. Final antibiotic recommendations Syndrome Osteomyelitis Microbiology Corynebacterium species and Streptococcus species Antibiotic Vancomycin Dose per Pharmacy for Goal AUC 400-600 mg/L/hr End Date 07/13/24 Syndrome Osteomyelitis Microbiology N/A Antibiotic Ceftriaxone 2 g IV Q24 hours End Date 07/13/24 Vascular access: Remove intravascular access after completion of antibiotics Recommended followup imaging studies: Not applicable LABORATORY MONITORING: Lab Test Frequency End Date CBC with diff CMP Vancomycin level(s) for AUC monitoring Q week 07/13/24 Lab Test Frequency End Date CRP Q 2 weeks 07/13/24 PROVIDERS: Following ID Physician ID clinic follow-up date Yung PageMattyTrevor 3-5 weeks Follow up appointments have been requested with Infectious diseases, Urology, Cardiology and your primary care provider Interventional Radiology Discharge Instructions: Provider: Dr. Esther Long If you are experiencing any problems related to your procedure, please contact Interventional Radiology at [phone] during normal business hours: Thursday - Thursday, 8:00 am - 4:00 pm. If a problem occurs outside of normal business hours, please call the hospital glass ribbon machine operator at [phone] and ask for the Interventional Radiologist calendar control clerk blood bank. Contact scheduling for Interventional Radiology at [phone] during normal business hours: Thursday - Thursday, 8:00 am - 4:00 pm. The information below provides you with the instructions and the list of medications you need to betaking following discharge from the hospital. If you have any questions, please ask before leaving.Please carry this letter with you when you see your doctor in the clinic. If you have questions, you can reach us at the numbers above. SPECIAL INSTRUCTIONS Pubic Abscess Aspiration A pubic/para-symphyseal abscess was aspirated via percutaneous approach under imaging guidance for culture and narrowing antibiotics treatment. Follow up with your primary physician for culture results and narrowing of antibiotics. Do not smoke or use tobacco products in any way! If you feel suicidal or homicidal, please call the crisis hotline at [phone] ([phone]) documented in this encounter Progress Notes * August Hebert MD - 06/09/2024 2:29 PM EST Images from the original note were not included. [facility] H672/A INTERVAL HISTORY: Patient seen and examined. No acute events overnight On my encounter, the patient is alert and oriented x3 No chest pains, shortness of breath or other complaints He feels that his mobility/weakness is at baseline and is planning to go home at discharge. He has help at home Objective Physical Exam Most Recent Vital Signs: BP: 122 mmHg/60 mmHg (06/09/241016) Pulse: 77 (06/09/241016) Resp: 17 (06/09/241016) Temp: 36.28 C (06/09/241016) Temp Summary: Temp Min: 36 °C (96.8 °F) Max: 37.4 °C (99.3 °F) SpO2: 100 % (06/09/241016) O2 flow rate: 0 L/MIN (06/08/24 1036) Supplemental O2 Delivery: Room Air, None (06/09/241016) Physical Exam: General: The patient is well developed/well nourished and nontoxic appearing. HEENT: Nonicteric sclerae. Cardiovascular: Heart regular rate and rhythm. No murmurs, rubs, or gallops. Trace pitting edema ofthe b/l LE. Pulmonary: Lungs CTAB. No wheezes, rhonchi, or rales. Abdomen: Soft, non-tender, non-distended. : Ingram catheter and draining pale yellow urine. Skin: Warm. Neuro: Alert and oriented x3. No gross cranial nerve deficits. Moves all extremities spontaneously. Urethral Catheter Coude (Active) Number of days: 7 Power PICC Single Lumen Right;Upper Arm (Active) Number of days: 1 STUDIES: Encounter Orders Labs and other studies reviewed with pertinent findings noted below: Laboratory Values: reviewed. -- Brief labs below include the 7 most recent results over the past week. Blood Gas: No results in the last 7 days - inpatent use only Chemistry Panel: Lab results within last 7 days (see chart for full results) Units 06/08/24 0915 06/06/24 0622 06/05/24 0732 06/04/24 0537 06/03/24 1402 06/03/24 0530 SODIUM mmol/L 134* 133* 133* 130* 130* 129* POTASSIUM mmol/L 3.8 3.9 4.1 3.8 3.8 3.9 CHLORIDE mmol/L 96* 97* 99 97* 96* 95* CO2 mmol/L 26 26 24 25 23 22 EGFR mL/min 72 75 73 73 73 67 BUN mg/dL 8 10 13 17 26* 21* CREATININE mg/dL 1.1 1.0 1.0 1.1 1.1 1.1 GLUCOSE mg/dL 157* 117 118 109 127* 168* CALCIUM mg/dL 8.4 8.3* 8.3* 7.9* 7.9* 8.0* Magnesium mg/dL -- 2.1 2.3 2.3 -- 2.4 Phosphorus mg/dL -- 2.8 2.6 2.4* -- 3.0 ANION GAP mmol/L 12 10 10 8 11 12 Complete Blood Count: Lab results within last 7 days (see chart for full results) Units 06/08/24 0915 06/06/24 0622 06/05/24 0732 06/04/24 1310 06/04/24 0537 06/03/24 0530 WBC K/uL 7.88 7.42 6.83 8.58 7.71 16.23* HGB g/dL 9.1* 8.6* 8.9* 7.9* 6.8* 7.8* HCT % 31.1* 30.6* 29.7* 26.1* 23.0* 25.4* PLT K/uL 345 347 350 318 317 482* MCV fL 89.6 89.5 88.7 87.9 87.1 83.8 Cardiac Studies: No results in the last 7 days - inpatent use only Coagulation Studies: No results in the last 7 days - inpatent use only Liver Function Panel: No results in the last 7 days - inpatent use only Infectious Studies: No results in the last 7 days - inpatent use only Cultures: reviewed. No results in the last 7 days - inpatent use only Recent Cultures (2 Weeks) 06/06/2024 06/02/2024 06/02/2024 3:11 PM 12:15 AM 12:06 AM STAIN DESCRIPTION Moderate Polymorphonuclear leukocytes -- -- No squamous epithelial cells seen No organisms seen CULTURE GROWTH No aerobic or anaerobic growth -- -- BLOOD CULTURE GROWTH -- No growth No growth Radiographic Studies (last 72 hours): reviewed. IR ASPIRATION ABSCESS/COLLECTION Result Date: 06/06/2024 IMPRESSION: Successful CT-guided percutaneous aspiration in the parasymphyseal abscess. PLAN: Follow-up of culture results and appropriate management per primary team. Imaging: TTE 06/03: Interpretation Summary The examination is adequate to evaluate the referral indication. The qualitative LV ejection fraction is 35-39% (moderately reduced). There is a moderate sized apical, anteroseptal, and anterior wall motion abnormality with akinesis of the segments. There is a moderate sized apical and posterior wall motion abnormality with hypokinesis to akinesisof the segments. The right ventricular systolic function is qualitatively normal. OSH CT A/P 05/30: findings consistent with an extensive infectious process involving the prostate, seminal vesicles, bladder, symphysis pubis and adjacent soft tissues with multiple locules of extraluminal gas and a 6.3 x 1.5 cm parasymphyseal collection consistent with an abscess. Associated erosion of the medial bi lateral pubic bones with widening of the symphysis consistent with osteomyelitis. A gas-forming infectious process can not be excluded Urine Cx @ OSH: 05/31 Uclx: Streptococcus dysgalactiae, C striatum/simulans sp 06/01 Uclx : 3 types of organisms Assessment and Plan IMPRESSION : Principal Problem: Septic shock (HCC) Active Problems: Macular degeneration BMI 35-39 ISOLATED (SEE ACTUAL BMI) Rheumatoid arthritis involving multiple sites with positive rheumatoid factor (HCC) HTN, goal below 130/80 Fuchs' corneal dystrophy Prediabetes Dyslipidemia, goal LDL below 160 Prostate cancer (HCC) Heart failure (HCC) Chronic kidney disease, stage 3a (HCC) S/P angioplasty with stent Hyponatremia 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 * DIFFERENTIAL AND PLAN: Markus Wharton is a 79-year-old male with a past medical history of CAD, HFrEF (EF 35 - 40%), hypertension, metastatic prostate cancer (status post palliative radiation and Lupron with chronic indwelling Ingram catheter), BPH, RA, prediabetes, CKD 3A, hyperlipidemia, known puboprostatic fistula who was initially admitted to the ICU for septic shock.Patient subsequently weaned off of vasopressors and transferred to the general medical floor. Evaluated by Urology and Infectious Disease while in ICU. Urology is not recommending any acute urologic intervention during hospitalization at this time. Infectious Disease is following and making antibiotic recommendations. IR aspirated abscess 06/06. Septic Shock (Resolved) Possible para symphyseal Abscess Suspected Pubic Symphysis OM Complicated UTI Known Puboprostatic Fistula: Blood and urine cx from [facility]. OSH urine cx as outlined above. Evaluated by Urology. No interventions, maintain Ingram catheter and follow up as an outpatient ID following - plan for ceftriaxone/vancomycin till 07/13 with weekly labs. Follow up finalized cultures from IR aspirate; NGTD. PICC line ordered. CAD and [place] s/p AFSANEH to LAD in 08/2023 Chronic HFrEF (EF 35-40%) HTN HLD: Euvolemic on exam. Significantly elevated trops on admission, likely demand related to shock on admission. No symptoms to suggest ACS at this time. TTE does have further reduced EF and WMA. - Continue MARKETING AND PUBLIC RELATIONS MANAGER aspirin & plavix - Continue MARKETING AND PUBLIC RELATIONS MANAGER crestor - Cont MARKETING AND PUBLIC RELATIONS MANAGER metop XL 25mg BID - Cont MARKETING AND PUBLIC RELATIONS MANAGER losartan 25mg daily - Cont MARKETING AND PUBLIC RELATIONS MANAGER lasix 20mg BID - Will need cards follow up on DC Reported AFib in the ER at [facility] Strips are not available. Per Cardiology note at [facility], seems to have been sinus tachycardia. There has been no episode of AFib at [facility]. He is being discharged with a Zio patch forfurther evaluation. 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 This was discussed with his regularrheumatologist as well. To follow up with his trade manager for resumption. Stage III Ulcer, Gluteal Folds: Home health arranged; continue Wound Care at home and follow up in the [facility] Metastatic Prostate Cancer Acute on chronic anemia: S/p palliative radiation and lupron. - Required 1u PRBC on 06/04 - Appreciate blood conservation recommendations - Continue MARKETING AND PUBLIC RELATIONS MANAGER folic acid - Cont B12 1000 mcg daily Orders Placed This Encounter Procedures Heart Healthy Diet : Sodium: 2 gm --- Fluid Restriction (ml): 1999 PHARMACOLOGIC VTE PROPHYLAXIS: Enoxaparin CODE STATUS: Full Code EXPECTED DISCHARGE DATE: 06/09/2024 I spent a total of 55 minutes coordinating, documenting, and providing care for this patient excluding time spent in the performance of separately billed services or time spent by another provider/QHP. * Eleonora Shea [facility] - 06/09/2024 8:25 AM EST PHARMACY PHARMACOKINETIC CONSULT [address] [address] Name: Markus Wharton Location: [facility] H[facility]/A Date: 06/09/2024 Time: 8:25 AM Requesting Service: Med H Bacteria being treated: corynebacterium Source of infection: OM Medication(s) being managed: Vancomycin Pharmacokinetic calculations will be performed utilizing readfy software. Lab information: Lab Results Component Value Date/Time WBC 7.88 06/08/2024 09:15 AM WBC 7.42 06/06/2024 06:22 AM WBC 6.83 06/05/2024 07:32 AM WBC 8.58 06/04/2024 01:10 PM WBC 7.71 06/04/2024 05:37 AM WBC 11.70 (H) 07/11/2019 01:37 PM WBC 9.52 01/10/2019 09:55 AM WBC 9.84 07/09/2018 09:36 AM WBC 9.86 01/01/2018 09:28 AM WBC 10.57 07/03/2017 10:49 AM Lab Results Component Value Date/Time BUN 8 06/08/2024 09:15 AM BUN 10 06/06/2024 06:22 AM BUN 13 06/05/2024 07:32 AM BUN 17 06/04/2024 05:37 AM BUN 26 (H) 06/03/2024 02:02 PM BUN 20 04/25/2019 09:53 AM BUN 13 10/19/2018 09:42 AM BUN 20 01/01/2018 09:29 AM BUN 18 05/07/2017 09:06 AM BUN 15 12/04/2016 10:50 AM Lab Results Component Value Date/Time CREAT 1.1 06/08/2024 09:15 AM CREAT 1.0 06/06/2024 06:22 AM CREAT 1.0 06/05/2024 07:32 AM CREAT 1.1 06/04/2024 05:37 AM CREAT 1.1 06/03/2024 02:02 PM CREAT 0.88 05/18/2024 12:00 AM CREAT 1.05 02/27/2021 12:00 AM CREAT 1.07 10/12/2020 12:00 AM CREAT 1.08 07/09/2020 12:00 AM CREAT 1.23 04/03/2020 12:00 AM CREAT 1.1 07/11/2019 01:37 PM CREAT 1.2 04/25/2019 09:53 AM CREAT 1.0 01/10/2019 09:55 AM CREAT 1.0 10/19/2018 09:42 AM CREAT 1.2 07/09/2018 09:36 AM ANTIMICROBIALS GIVEN (last 28 hours) Date/Time Action Medication Dose Rate 06/08/24 1230 New Bag Vancomycin (Vancocin) 1,750 mg in NSS 500 mL ivpb 1,750 mg 263.75 mL/hr 06/08/24 0934 New Bag cefTRIAXone in dextrose (Rocephin) IVPB 2 g 2 g 100 mL/hr Wt Readings from Last 1 Encounters: 06/09/24 93.4 kg (206 lb) Levels to date: Lab Results Component Value Date/Time VANCORANDOM 21.2 06/09/2024 06:00 AM VANCORANDOM 22.8 06/06/2024 06:22 AM Impression: Markus Wharton is a/an 79 year old male receiving vancomycin therapy. The pharmacokinetic targetfor therapy is AUC24,SS (range) 400-600mg/L.hr Assessment and Plan: Analysis of the most recent level(s) using PandabusX gives the following patient-specific pharmacokinetic parameters: CL: 2.37 L/hr V: 50.7 L T1/2: 15.7 hours Using these values, the current regimen of Vancomycin 1750 mg IV every 24 hours is predicted to result in a steady-state trough of 11.1 mg/L and AUC24 of 551 mg/L.hr. At this time we recommend a regimen of 1750 mg IV every 24 hours, which is predicted to result in a steady-state trough of 11.1 mg/Land AUC24 of 551 mg/L.hr. Obtain next vancomycin level 4 days. Pharmacy will continue to follow and dose as appropriate by renal function, culture results, infectious disease input, and overall clinical status. Contact the Pharmacy at extension [phone] if there are any questions. Eleonora Shea RPh * August Hebert MD - 06/08/2024 10:26 AM EST Images from the original note were not included. [facility] H672/A INTERVAL HISTORY: Patient seen and examined. No acute events overnight On my encounter, the patient is alert and oriented x3 No chest pains, shortness of breath or other complaints He feels that his mobility/weakness is at baseline and is planning to go home at discharge. He has help at home Objective Physical Exam Most Recent Vital Signs: BP: 112 mmHg/61 mmHg (06/08/24935) Pulse: 68 (06/08/24935) Resp: 16 (06/08/24527) Temp: 36.28 C (06/08/24527) Temp Summary: Temp Min: 36.3 °C (97.3 °F) Max: 37 °C (98.6 °F) SpO2: 98 % (06/08/24935) O2 flow rate: 0 L/MIN (06/06/241539) Supplemental O2 Delivery: Room Air, None (06/08/24935) Physical Exam: General: The patient is well developed/well nourished and nontoxic appearing. HEENT: Nonicteric sclerae. Cardiovascular: Heart regular rate and rhythm. No murmurs, rubs, or gallops. Trace pitting edema ofthe b/l LE. Pulmonary: Lungs CTAB. No wheezes, rhonchi, or rales. Abdomen: Soft, non-tender, non-distended. : Ingram catheter and draining pale yellow urine. Skin: Warm. Neuro: Alert and oriented x3. No gross cranial nerve deficits. Moves all extremities spontaneously. Urethral Catheter Coude (Active) Number of days: 6 Peripheral Line Right;Upper 20 Gauge (Active) Number of days: 7 STUDIES: Encounter Orders Labs and other studies reviewed with pertinent findings noted below: Laboratory Values: reviewed. -- Brief labs below include the 7 most recent results over the past week. Blood Gas: No results in the last 7 days - inpatent use only Chemistry Panel: Lab results within last 7 days (see chart for full results) Units 06/08/24 0915 06/06/24 0622 06/05/24 0732 06/04/24 0537 06/03/24 1402 06/03/24 0530 06/02/24 1111 06/02/24 0542 06/02/24 0006 06/01/24 2323 SODIUM mmol/L 134* 133* 133* 130* 130* 129* 131* 127* < > 124* POTASSIUM mmol/L 3.8 3.9 4.1 3.8 3.8 3.9 3.7 3.7 < > 3.9 CHLORIDE mmol/L 96* 97* 99 97* 96* 95* 95* 93* < > 89* CO2 mmol/L 26 26 24 25 23 22 22 21* < > 21* EGFR mL/min 72 75 73 73 73 67 51* 52* < > 47* BUN mg/dL 8 10 13 17 26* 21* 15 15 < > 17 CREATININE mg/dL 1.1 1.0 1.0 1.1 1.1 1.1 1.4* 1.4* < > 1.5* GLUCOSE mg/dL 157* 117 118 109 127* 168* 148* 174* < > 185* CALCIUM mg/dL 8.4 8.3* 8.3* 7.9* 7.9* 8.0* 8.2* 7.9* < > 8.1* Magnesium mg/dL -- 2.1 2.3 2.3 -- 2.4 -- 2.5 -- 1.8 Phosphorus mg/dL -- 2.8 2.6 2.4* -- 3.0 -- 5.6* -- 2.1* ANION GAP mmol/L 12 10 10 8 11 12 14 13 < > 14 < > = values in this interval not displayed. Complete Blood Count: Lab results within last 7 days (see chart for full results) Units 06/08/24 0915 06/06/24 0622 06/05/24 0732 06/04/24 1310 06/04/24 0537 06/03/24 0530 06/02/24 0542 WBC K/uL 7.88 7.42 6.83 8.58 7.71 16.23* 32.30* HGB g/dL 9.1* 8.6* 8.9* 7.9* 6.8* 7.8* 8.2* HCT % 31.1* 30.6* 29.7* 26.1* 23.0* 25.4* 26.1* PLT K/uL 345 347 350 318 317 482* 454* MCV fL 89.6 89.5 88.7 87.9 87.1 83.8 84.2 Cardiac Studies: Lab results within last 7 days (see chart for full results) Units 06/02/24 0542 06/01/24 2323 Troponin T, High Sensitivity ng/L 378* 560* BNP, NT-Pro pg/mL 7,812* -- Coagulation Studies: No results in the last 7 days - inpatent use only Liver Function Panel: Lab results within last 7 days (see chart for full results) Units 06/01/24 2323 Albumin g/dL 2.6* Protein g/dL 6.1 Bilirubin, Total mg/dL 0.3 Bilirubin, Direct mg/dL <0.2 AST U/L 23 ALT U/L 14 Alkaline Phosphatase U/L 105 Infectious Studies: Lab results within last 7 days (see chart for full results) Units 06/01/24 2323 Lactate mmol/L 1.5 CRP (Inflammatory Marker) mg/L 140* Cultures: reviewed. No results in the last 7 days - inpatent use only Recent Cultures (2 Weeks) 06/06/2024 06/02/2024 06/02/2024 3:11 PM 12:15 AM 12:06 AM STAIN DESCRIPTION Moderate Polymorphonuclear leukocytes -- -- No squamous epithelial cells seen No organisms seen CULTURE GROWTH No aerobic or anaerobic growth -- -- BLOOD CULTURE GROWTH -- No growth No growth Radiographic Studies (last 72 hours): reviewed. IR ASPIRATION ABSCESS/COLLECTION Result Date: 06/06/2024 IMPRESSION: Successful CT-guided percutaneous aspiration in the parasymphyseal abscess. PLAN: Follow-up of culture results and appropriate management per primary team. Imaging: TTE 06/03: Interpretation Summary The examination is adequate to evaluate the referral indication. The qualitative LV ejection fraction is 35-39% (moderately reduced). There is a moderate sized apical, anteroseptal, and anterior wall motion abnormality with akinesis of the segments. There is a moderate sized apical and posterior wall motion abnormality with hypokinesis to akinesisof the segments. The right ventricular systolic function is qualitatively normal. OSH CT A/P 05/30: findings consistent with an extensive infectious process involving the prostate, seminal vesicles, bladder, symphysis pubis and adjacent soft tissues with multiple locules of extraluminal gas and a 6.3 x 1.5 cm parasymphyseal collection consistent with an abscess. Associated erosion of the medial bi lateral pubic bones with widening of the symphysis consistent with osteomyelitis. A gas-forming infectious process can not be excluded Urine Cx @ OSH: 05/31 Uclx: Streptococcus dysgalactiae, C striatum/simulans sp 06/01 Uclx : 3 types of organisms Assessment and Plan IMPRESSION : Principal Problem: Septic shock (HCC) Active Problems: Macular degeneration BMI 35-39 ISOLATED (SEE ACTUAL BMI) Rheumatoid arthritis involving multiple sites with positive rheumatoid factor (HCC) HTN, goal below 130/80 Fuchs' corneal dystrophy Prediabetes Dyslipidemia, goal LDL below 160 Prostate cancer (HCC) Heart failure (HCC) Chronic kidney disease, stage 3a (HCC) S/P angioplasty with stent Hyponatremia 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 * DIFFERENTIAL AND PLAN: Markus Wharton is a 79-year-old male with a past medical history of CAD, HFrEF (EF 35 - 40%), hypertension, metastatic prostate cancer (status post palliative radiation and Lupron with chronic indwelling Ingram catheter), BPH, RA, prediabetes, CKD 3A, hyperlipidemia, known puboprostatic fistula who was initially admitted to the ICU for septic shock.Patient subsequently weaned off of vasopressors and transferred to the general medical floor. Evaluated by Urology and Infectious Disease while in ICU. Urology is not recommending any acute urologic intervention during hospitalization at this time. Infectious Disease is following and making antibiotic recommendations. IR aspirated abscess 06/06. Septic Shock (Resolved) Possible para symphyseal Abscess Suspected Pubic Symphysis OM Complicated UTI Known Puboprostatic Fistula: Blood and urine cx from [facility]. OSH urine cx as outlined above. Evaluated by Urology. No interventions, maintain Ingram catheter and follow up as an outpatient ID following - plan for ceftriaxone/vancomycin till 07/13 with weekly labs. Follow up finalized cultures from IR aspirate. PICC line ordered. CAD and [place] s/p AFSANEH to LAD in 08/2023 Chronic HFrEF (EF 35-40%) HTN HLD: Euvolemic on exam. Significantly elevated trops on admission, likely demand related to shock on admission. No symptoms to suggest ACS at this time. TTE does have further reduced EF and WMA. - Continue MARKETING AND PUBLIC RELATIONS MANAGER aspirin & plavix - Continue MARKETING AND PUBLIC RELATIONS MANAGER crestor - Cont MARKETING AND PUBLIC RELATIONS MANAGER metop XL 25mg BID - Cont MARKETING AND PUBLIC RELATIONS MANAGER losartan 25mg daily - Cont MARKETING AND PUBLIC RELATIONS MANAGER lasix 20mg BID - Will need cards follow up on DC Chronic Hyponatremia, SIADH: - sodium has remained stable Rheumatoid arthritis: - Takes methotrexate every Thursday - will hold for now in the setting of septic shock/active infection Stage III Ulcer, Gluteal Folds: - Wound care consulted - PT/OT Metastatic Prostate Cancer Acute on chronic anemia: S/p palliative radiation and lupron. - Required 1u PRBC on 06/04 - Appreciate blood conservation recommendations - Continue MARKETING AND PUBLIC RELATIONS MANAGER folic acid - Cont B12 1000 mcg daily Orders Placed This Encounter Procedures Heart Healthy Diet : Sodium: 2 gm --- Fluid Restriction (ml): 1999 PHARMACOLOGIC VTE PROPHYLAXIS: Enoxaparin CODE STATUS: Full Code EXPECTED DISCHARGE DATE: No information available I spent a total of 55 minutes coordinating, documenting, and providing care for this patient excluding time spent in the performance of separately billed services or time spent by another provider/QHP. * Mary Page MD - 06/07/2024 7:30 PM EST DISCHARGE PROGRESS NOTE - Infectious Disease [facility] [address] Name: Markus Wharton Location: [facility] H[facility] Date: 06/07/2024 Time: 7:30 PM SUBJECTIVE: This is a 79 y/o male w/ hx of HTN, CKD 3A, RA, CAD, and prostate CA s/p EBRT (2022), currently on Lupron. 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 Also, noted to have malpositioned ingram w/ a portion of the catheter extending into the symphysis pubis and distended blader w/ moderate b/l hydroureteronephrosis. Transferred from [facility] for high level of care. Had IR drain of the fluid for culture on 06/06/24 after being on broad spectrum abx for several days since 06/02. The patient is currently doing well. No n/v, abd/groin pain, f/c or rash. No specific complaint. Noovernight event. OBJECTIVE: Most Recent Vital Signs: BP: 118 mmHg/68 mmHg (06/07/241815) Pulse: 79 (06/07/241815) Resp: 18 (06/07/241815) Temp: 36.89 C (06/07/241815) Temp Summary: Temp Min: 35.3 °C (95.5 °F) Max: 37 °C (98.6 °F) SpO2: 99 % (06/07/241815) O2 flow rate: 0 L/MIN (06/06/24 1540) Supplemental O2 Delivery: Room Air, None (06/07/241815) Vital Signs Last 24 Hours: Systolic BP: Most Recent Systolic BP Av mmHg Min: 106 mmHg Max: 122 mmHg Temperature: Most Recent Temperature Av.3 C Min: 35.28 C Max: 37 C Pulse: Pulse Av Min: 71 Max: 86 Respirations: Resp Av Min: 16 Max: 20 SpO2: SpO2 Av.4 % Min: 97 % Max: 100 % Constitutional: no acute distress CV: normal rate and rhythm, no murmur, gallops or rub, normal heart sounds Chest: normal respiratory effort, breath sounds normal, chest wall normal, lungs clear to auscultation b/l, no wheezing, no crackles Abdomen: normal: soft, bowel sounds normal, no masses, tenderness or organomegaly Extremities: no clubbing, cyanosis, or edema, otherwise grossly normal, warm, and dry Male : ingram in place w/ clear urine Neuro: alert, oriented to person, place, and time WBC 7.42K H 8.6 Plt 347K Cr 1.0 Prior urine cx at [facility]: [id number] KPN (03/2024) UA (05/31): WBC >50 U cx (05/31): Streptococcus dysgalactiae, C striatum/simulans sp U cx (06/01): 3 types of organisms Blood cx (06/01): NGTD Blood cx (06/02): NGTD FINAL IMPRESSION AND RECOMMENDATIONS: Presumed parasymphyseal abscess OM of pubic symphysis Complicated UTI w/ urethral obstruction due to malpositioned ingram s/p exchanged on this admission Hx of prostate CA s/p EBRT (2022) 06/06/24 - IR aspiration of the pelvic fluid - Change zosyn to CTX 2 gm iv qd - Continue vancomycin iv at current dose I doubt the fluid aspirate culture will result in any growth has the aspiration was done after several days of broad spectrum abx. But ID will continue follow the culture result until finalized. For the time being, I recommend to finalize abx w/ CTX and vancomycin iv based on prior culture results and the urine culture result from 05/31. Syndrome Osteomyelitis Microbiology Corynebacterium species and Streptococcus species Antibiotic Vancomycin Dose per Pharmacy for Goal AUC 400-600 mg/L/hr End Date 07/13/24 Syndrome Osteomyelitis Microbiology N/A Antibiotic Ceftriaxone 2 g IV Q24 hours End Date 07/13/24 Vascular access: Remove intravascular access after completion of antibiotics Recommended followup imaging studies: Not applicable LABORATORY MONITORING: Lab Test Frequency End Date CBC with diff CMP Vancomycin level(s) for AUC monitoring Q week 07/13/24 Lab Test Frequency End Date CRP Q 2 weeks 07/13/24 PROVIDERS: Following ID Physician ID clinic follow-up date Jackelyn Page 3-5 weeks I spent a total of 35 minutes coordinating, documenting, and providing care for this patient excluding time spent in the performance of separately billed services or time spent by another provider/QHP. * Frank Fleming MD - 06/07/2024 7:20 AM EST Images from the original note were not included. [facility] H672/A INTERVAL HISTORY: No acute events overnight. Went to IR for needle aspiration yesterday which was successful. Cultures pending. No complaints this morning. No chest pain or shortness of breath. No pain anywhere. Eating and drinking well. Objective Physical Exam Most Recent Vital Signs: BP: 110 mmHg/60 mmHg (06/07/24522) Pulse: 73 (06/07/24522) Resp: 16 (06/07/24522) Temp: 35.5 C (06/07/24522) Temp Summary: Temp Min: 35.3 °C (95.5 °F) Max: 36.7 °C (98.1 °F) SpO2: 97 % (06/07/24522) O2 flow rate: 0 L/MIN (06/06/24 1540) Supplemental O2 Delivery: Room Air, None (06/07/24522) Physical Exam: General: The patient is well developed/well nourished and nontoxic appearing. HEENT: Nonicteric sclerae. Cardiovascular: Heart regular rate and rhythm. No murmurs, rubs, or gallops. Trace pitting edema ofthe b/l LE. Pulmonary: Lungs CTAB. No wheezes, rhonchi, or rales. Abdomen: Soft, non-tender, non-distended. : Ingram catheter and draining pale yellow urine. Skin: Warm. Neuro: Alert and oriented x3. No gross cranial nerve deficits. Moves all extremities spontaneously. Urethral Catheter Coude (Active) Number of days: 5 Peripheral Line Right;Upper 20 Gauge (Active) Number of days: 6 STUDIES: Encounter Orders Labs and other studies reviewed with pertinent findings noted below: No new labs this AM Imaging: TTE 06/03: Interpretation Summary The examination is adequate to evaluate the referral indication. The qualitative LV ejection fraction is 35-39% (moderately reduced). There is a moderate sized apical, anteroseptal, and anterior wall motion abnormality with akinesis of the segments. There is a moderate sized apical and posterior wall motion abnormality with hypokinesis to akinesisof the segments. The right ventricular systolic function is qualitatively normal. OSH CT A/P 05/30: findings consistent with an extensive infectious process involving the prostate, seminal vesicles, bladder, symphysis pubis and adjacent soft tissues with multiple locules of extraluminal gas and a 6.3 x 1.5 cm parasymphyseal collection consistent with an abscess. Associated erosion of the medial bi lateral pubic bones with widening of the symphysis consistent with osteomyelitis. A gas-forming infectious process can not be excluded Micro: Deep Wound Culture, Pelvis 06/06: Pending Blood Cx 06/02: NGTD Urine Cx @ OSH: 05/31 Uclx: Streptococcus dysgalactiae, C striatum/simulans sp 06/01 Uclx : 3 types of organisms Assessment and Plan IMPRESSION : Principal Problem: Septic shock (HCC) Active Problems: Macular degeneration BMI 35-39 ISOLATED (SEE ACTUAL BMI) Rheumatoid arthritis involving multiple sites with positive rheumatoid factor (HCC) HTN, goal below 130/80 Fuchs' corneal dystrophy Prediabetes Dyslipidemia, goal LDL below 160 Prostate cancer (HCC) Heart failure (HCC) Chronic kidney disease, stage 3a (HCC) S/P angioplasty with stent Hyponatremia 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 * DIFFERENTIAL AND PLAN: Markus Wharton is a 79-year-old male with a past medical history of CAD, HFrEF (EF 35 - 40%), hypertension, metastatic prostate cancer (status post palliative radiation and Lupron with chronic indwelling Ingram catheter), BPH, RA, prediabetes, CKD 3A, hyperlipidemia, known puboprostatic fistula who was initially admitted to the ICU for septic shock. Patient subsequently weaned off of vasopressors and transferred to the general medical floor. Evaluated by Urology and Infectious Disease while in ICU. Urology is not recommending any acute urologic intervention during hospitalization at this time. Infectious Disease is following and making antibiotic recommendations. IR aspirated abscess 06/06. Septic Shock (Resolved) Possible Parasymphyseal Abscess Possible Pubic Symphysis OM Known Puboprostatic Fistula: Blood and urine cx from [facility]. OSH urine cx as outlined above. Unclear if findings on imaging represent true abscess or OM. - Urology following - appreciate recs - No plan for acute urologic intervention at this time - Maintain ingram catheter - Will need close outpatient urology follow up - ID following - appreciate recs - Cont vancomycin - dose per pharmacy - Cont zosyn 4.5g q8hr - Follow all cultures - S/p IR guided aspiration of abscess 06/06 - follow culture - Will likely need PICC and long-term abx pending final ID recs. CAD and [place] s/p AFSANEH to LAD in 08/2023 Chronic HFrEF (EF 35-40%) HTN HLD: Euvolemic on exam. Significantly elevated trops on admission, likely demand related to shock on admission. No symptoms to suggest ACS at this time. ECG without any evidence of ischemia; no TWI or ST segment changes. TTE does have further reduced EF and WMA. - Continue MARKETING AND PUBLIC RELATIONS MANAGER aspirin & plavix - Continue MARKETING AND PUBLIC RELATIONS MANAGER crestor - Cont MARKETING AND PUBLIC RELATIONS MANAGER metop XL 25mg BID - Cont MARKETING AND PUBLIC RELATIONS MANAGER losartan 25mg daily - Cont MARKETING AND PUBLIC RELATIONS MANAGER lasix 20mg BID - Will need cards follow up on DC Chronic Hyponatremia, SIADH: - Clarify if patient takes MARKETING AND PUBLIC RELATIONS MANAGER urea? Rheumatoid arthritis: - Takes methotrexate every Thursday - will hold for now in the setting of septic shock/active infection Stage III Ulcer, Gluteal Folds: - Wound care consulted - PT/OT Metastatic Prostate Cancer Acute on chronic anemia: S/p palliative radiation and lupron. - Required 1u PRBC on 06/04 - Appreciate blood conservation recommendations - Continue MARKETING AND PUBLIC RELATIONS MANAGER folic acid - Cont B12 1000 mcg daily PHARMACOLOGIC VTE PROPHYLAXIS: Enoxaparin CODE STATUS: Full Code EXPECTED DISCHARGE DATE: No information available I spent a total of 40 minutes coordinating, documenting, and providing care for this patient excluding time spent in the performance of separately billed services or time spent by another provider/QHP. * Eleonora Shea [facility] - 06/06/2024 8:21 AM EST PHARMACY PHARMACOKINETIC CONSULT [facility] [id number] Name: Markus Wharton Location: [facility] H[facility]/A Date: 06/06/2024 Time: 8:21 AM Requesting Service: Med H Bacteria being treated: empiric Source of infection: abscess/om Medication(s) being managed: Vancomycin Pharmacokinetic calculations will be performed utilizing readfy software. Lab information: Lab Results Component Value Date/Time WBC 7.42 06/06/2024 06:22 AM WBC 6.83 06/05/2024 07:32 AM WBC 8.58 06/04/2024 01:10 PM WBC 7.71 06/04/2024 05:37 AM WBC 16.23 (H) 06/03/2024 05:30 AM WBC 11.70 (H) 07/11/2019 01:37 PM WBC 9.52 01/10/2019 09:55 AM WBC 9.84 07/09/2018 09:36 AM WBC 9.86 01/01/2018 09:28 AM WBC 10.57 07/03/2017 10:49 AM Lab Results Component Value Date/Time BUN 10 06/06/2024 06:22 AM BUN 13 06/05/2024 07:32 AM BUN 17 06/04/2024 05:37 AM BUN 26 (H) 06/03/2024 02:02 PM BUN 21 (H) 06/03/2024 05:30 AM BUN 20 04/25/2019 09:53 AM BUN 13 10/19/2018 09:42 AM BUN 20 01/01/2018 09:29 AM BUN 18 05/07/2017 09:06 AM BUN 15 12/04/2016 10:50 AM Lab Results Component Value Date/Time CREAT 1.0 06/06/2024 06:22 AM CREAT 1.0 06/05/2024 07:32 AM CREAT 1.1 06/04/2024 05:37 AM CREAT 1.1 06/03/2024 02:02 PM CREAT 1.1 06/03/2024 05:30 AM CREAT 0.88 05/18/2024 12:00 AM CREAT 1.05 02/27/2021 12:00 AM CREAT 1.07 10/12/2020 12:00 AM CREAT 1.08 07/09/2020 12:00 AM CREAT 1.23 04/03/2020 12:00 AM CREAT 1.1 07/11/2019 01:37 PM CREAT 1.2 04/25/2019 09:53 AM CREAT 1.0 01/10/2019 09:55 AM CREAT 1.0 10/19/2018 09:42 AM CREAT 1.2 07/09/2018 09:36 AM ANTIMICROBIALS GIVEN (last 28 hours) Date/Time Action Medication Dose Rate 06/05/24 2324 New Bag Piperacillin-Tazobactam (Zosyn) 4.5 g in 100 mL NSS ivpb (FOUR hour infusion) 4.5 g 26.25 mL/hr 06/05/24 2115 New Bag Vancomycin (Vancocin) 1000 mg in NSS 250 mL ivpb LOCKED DOSE 1,000 mg 255 mL/hr 06/05/24 1629 New Bag Piperacillin-Tazobactam (Zosyn) 4.5 g in 100 mL NSS ivpb (FOUR hour infusion) 4.5 g 26.25 mL/hr 06/05/24 1312 New Bag Vancomycin (Vancocin) 1000 mg in NSS 250 mL ivpb LOCKED DOSE 1,000 mg 255 mL/hr 06/05/24 0840 New Bag Piperacillin-Tazobactam (Zosyn) 4.5 g in 100 mL NSS ivpb (FOUR hour infusion) 4.5 g 26.25 mL/hr Wt Readings from Last 1 Encounters: 06/06/24 (!) 138.5 kg (305 lb 5.4 oz) Levels to date: Lab Results Component Value Date/Time VANCORANDOM 22.8 06/06/2024 06:22 AM Impression: Markus Wharton is a/an 79 year old male receiving vancomycin therapy. The pharmacokinetic targetfor therapy is AUC24,SS (range) 400-600mg/L.hr Assessment and Plan: Analysis of the most recent level(s) using [employer]orsight gives the following patient-specific pharmacokinetic parameters: CL: 3.26 L/hr V: 89.9 L T1/2: 19.2 hours Using these values, the current regimen of Vancomycin 1000 mg IV every 8 hours is predicted to result in a steady-state trough of 32 mg/L and AUC24 of 873 mg/L.hr. At this time we recommend a regimenof 1750 mg IV every 24 hours, which is predicted to result in a steady-state trough of 14.8 mg/L and AUC24 of 528 mg/L.hr. Obtain next vancomycin level 2-3 days. Pharmacy will continue to follow and dose as appropriate by renal function, culture results, infectious disease input, and overall clinical status. Contact the Pharmacy at extension [phone] if there are any questions. Eleonora Shea RPh * Frank Fleming MD - 06/06/2024 7:21 AM EST Images from the original note were not included. [facility] H672/A INTERVAL HISTORY: No acute events overnight. Feels well this morning. Denies any chest pain, shortness of breath, abdominal pain. No pain in the pubic or groin region. Ingram functioning well. Objective Physical Exam Most Recent Vital Signs: BP: 111 mmHg/63 mmHg (06/06/24599) Pulse: 71 (06/06/24599) Resp: 20 (06/06/24599) Temp: 36.22 C (06/06/24599) Temp Summary: Temp Min: 36.2 °C (97.2 °F) Max: 36.7 °C (98.1 °F) SpO2: 98 % (06/06/24599) O2 flow rate: 0 L/MIN (06/04/24 1500) Supplemental O2 Delivery: Room Air, None (06/06/24599) Physical Exam: General: The patient is well developed/well nourished and nontoxic appearing. HEENT: Nonicteric sclerae. Cardiovascular: Heart regular rate and rhythm. No murmurs, rubs, or gallops. No edema of the b/l LE. Pulmonary: Lungs CTAB. No wheezes, rhonchi, or rales. Abdomen: Soft, non-tender, non-distended. : Ingram catheter and draining pale yellow urine. Skin: Warm. Neuro: Alert and oriented x3. No gross cranial nerve deficits. Moves all extremities spontaneously. Urethral Catheter Coude (Active) Number of days: 4 Peripheral Line Right;Upper 20 Gauge (Active) Number of days: 5 Peripheral Line Left;Lower Arm 22 Gauge (Active) Number of days: 1 STUDIES: Encounter Orders Labs and other studies reviewed with pertinent findings noted below: BMP notable for sodium 133, remainder of electrolytes and renal function unremarkable. CBC without leukocytosis. Hemoglobin 8.6, remainder unremarkable. Imaging: TTE 06/03: Interpretation Summary The examination is adequate to evaluate the referral indication. The qualitative LV ejection fraction is 35-39% (moderately reduced). There is a moderate sized apical, anteroseptal, and anterior wall motion abnormality with akinesis of the segments. There is a moderate sized apical and posterior wall motion abnormality with hypokinesis to akinesisof the segments. The right ventricular systolic function is qualitatively normal. OSH CT A/P 05/30: findings consistent with an extensive infectious process involving the prostate, seminal vesicles, bladder, symphysis pubis and adjacent soft tissues with multiple locules of extraluminal gas and a 6.3 x 1.5 cm parasymphyseal collection consistent with an abscess. Associated erosion of the medial bi lateral pubic bones with widening of the symphysis consistent with osteomyelitis. A gas-forming infectious process can not be excluded Micro: Blood Cx 06/02: NGTD Urine Cx @ OSH: 05/31 Uclx: Streptococcus dysgalactiae, C striatum/simulans sp 06/01 Uclx : 3 types of organisms Assessment and Plan IMPRESSION : Principal Problem: Septic shock (HCC) Active Problems: Macular degeneration BMI 35-39 ISOLATED (SEE ACTUAL BMI) Rheumatoid arthritis involving multiple sites with positive rheumatoid factor (HCC) HTN, goal below 130/80 Fuchs' corneal dystrophy Prediabetes Dyslipidemia, goal LDL below 160 Prostate cancer (HCC) Heart failure (HCC) Chronic kidney disease, stage 3a (HCC) S/P angioplasty with stent Hyponatremia 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 * DIFFERENTIAL AND PLAN: Markus Wharton is a 79-year-old male with a past medical history of CAD, HFrEF (EF 35 - 40%), hypertension, metastatic prostate cancer (status post palliative radiation and Lupron with chronic indwelling Ingram catheter), BPH, RA, prediabetes, CKD 3A, hyperlipidemia, known puboprostatic fistula who was initially admitted to the ICU for septic shock. Patient subsequently weaned off of vasopressors and transferred to the general medical floor. Evaluated by Urology and Infectious Disease while in ICU. Urology is not recommending any acute urologic intervention during hospitalization at this time. Infectious Disease is following and making antibiotic recommendations. They have also recommended IR guided aspiration to assist with guiding antibiotic therapy moving forward for suspected pubic OM. Septic Shock (Resolved) Possible Parasymphyseal Abscess Possible Pubic Symphysis OM Known Puboprostatic Fistula: Blood and urine cx from [facility]. OSH urine cx as outlined above. Unclear if findings on imaging represent true abscess or OM. - Urology following - appreciate recs - No plan for acute urologic intervention at this time - Maintain ingram catheter - Will need close outpatient urology follow up - ID following - appreciate recs - Cont vancomycin - dose per pharmacy - Cont zosyn 4.5g q8hr - Follow all cultures - Plan for IR guided aspiration of possible parasymphyseal abscess (06/06). - Will likely need PICC and long-term abx pending final ID recs. CAD and [place] s/p AFSANEH to LAD in 08/2023 Chronic HFrEF (EF 35-40%) HTN HLD: Euvolemic on exam. Significant elevated trops on admission, likely demand related to shock on admission. No symptoms to suggest ACS at this time. ECG without any evidence of ischemia; no TWI or ST segment changes. TTE does have further reduced EF and WMA. - Continue MARKETING AND PUBLIC RELATIONS MANAGER aspirin & plavix - Continue MARKETING AND PUBLIC RELATIONS MANAGER crestor - Cont MARKETING AND PUBLIC RELATIONS MANAGER metop XL 25mg BID - Cont MARKETING AND PUBLIC RELATIONS MANAGER losartan 25mg daily - Resume MARKETING AND PUBLIC RELATIONS MANAGER lasix 20mg BID - Will need cards follow up on DC Chronic Hyponatremia, SIADH: - Clarify if patient takes MARKETING AND PUBLIC RELATIONS MANAGER urea? - Monitor Na Rheumatoid arthritis: - Takes methotrexate every Thursday - will hold for now in the setting of septic shock/active infection Stage III Ulcer, Gluteal Folds: - Wound care consulted - PT/OT Metastatic Prostate Cancer Acute on chronic anemia: S/p palliative radiation and lupron. - Required 1u PRBC on 06/04 - Appreciate blood conservation recommendations - Continue MARKETING AND PUBLIC RELATIONS MANAGER folic acid - Cont B12 1000 mcg daily PHARMACOLOGIC VTE PROPHYLAXIS: Enoxaparin CODE STATUS: Full Code EXPECTED DISCHARGE DATE: No information available I spent a total of 52 minutes coordinating, documenting, and providing care for this patient excluding time spent in the performance of separately billed services or time spent by another provider/QHP. * Frank Fleming MD - 06/05/2024 7:20 AM EST Images from the original note were not included. [facility] H672/A INTERVAL HISTORY: Patient is a 79-year-old male with a past medical history of CAD, HFrEF (EF 35 - 40%), hypertension, metastatic prostate cancer (status post palliative radiation and Lupron with chronic indwelling Ingram catheter), BPH, RA, prediabetes, CKD 3A, hyperlipidemia, known puboprostatic fistula who was initially admitted to the ICU for septic shock. Patient subsequently weaned off of vasopressors and transferred to the general medical floor. Evaluated by Urology and Infectious Disease while in ICU. Urology is not recommending any acute urologic intervention during hospitalization at this time. Infectious Disease is following and making antibiotic recommendations. They have also recommended IR guided aspiration to assist with guiding antibiotic therapy moving forward for suspected pubic OM. Patient seen and evaluated at bedside this morning. He has no complaints at this time. Denies any chest pain or shortness of breath. Ingram catheter functioning well. No abdominal pain, nausea, vomiting. Eating and drinking well. Reports he feels much better from initial presentation. Objective Physical Exam Most Recent Vital Signs: BP: 113 mmHg/65 mmHg (06/05/24645) Pulse: 77 (06/05/24645) Resp: 18 (06/05/24645) Temp: 36.11 C (06/05/24645) Temp Summary: Temp Min: 35.9 °C (96.6 °F) Max: 37.3 °C (99.1 °F) SpO2: 99 % (06/05/24645) O2 flow rate: 0 L/MIN (06/04/24 1500) Supplemental O2 Delivery: Room Air, None (06/05/24645) Physical Exam: General: The patient is well developed/well nourished and nontoxic appearing. HEENT: Nonicteric sclerae. Cardiovascular: Heart regular rate and rhythm. No murmurs, rubs, or gallops. No edema of the b/l LE. Pulmonary: Lungs CTAB. No wheezes, rhonchi, or rales. Abdomen: Soft, non-tender, non-distended. : Ingram catheter and draining pale yellow urine. Skin: Warm. Neuro: Alert and oriented x3. No gross cranial nerve deficits. Moves all extremities spontaneously. Urethral Catheter Coude (Active) Number of days: 3 Peripheral Line Right;Upper 20 Gauge (Active) Number of days: 4 STUDIES: Encounter Orders Labs and other studies reviewed with pertinent findings noted below: BMP notable for sodium 133, remainder of electrolytes and renal function unremarkable. CBC without leukocytosis. Hemoglobin 11.9, remainder unremarkable. Imaging: TTE 06/03: Interpretation Summary The examination is adequate to evaluate the referral indication. The qualitative LV ejection fraction is 35-39% (moderately reduced). There is a moderate sized apical, anteroseptal, and anterior wall motion abnormality with akinesis of the segments. There is a moderate sized apical and posterior wall motion abnormality with hypokinesis to akinesisof the segments. The right ventricular systolic function is qualitatively normal. OSH CT A/P 05/30: findings consistent with an extensive infectious process involving the prostate, seminal vesicles, bladder, symphysis pubis and adjacent soft tissues with multiple locules of extraluminal gas and a 6.3 x 1.5 cm parasymphyseal collection consistent with an abscess. Associated erosion of the medial bi lateral pubic bones with widening of the symphysis consistent with osteomyelitis. A gas-forming infectious process can not be excluded Micro: Blood Cx 06/02: NGTD Urine Cx @ OSH: 05/31 Uclx: Streptococcus dysgalactiae, C striatum/simulans sp 06/01 Uclx : 3 types of organisms Assessment and Plan IMPRESSION : Principal Problem: Septic shock (HCC) Active Problems: Macular degeneration BMI 35-39 ISOLATED (SEE ACTUAL BMI) Rheumatoid arthritis involving multiple sites with positive rheumatoid factor (HCC) HTN, goal below 130/80 Fuchs' corneal dystrophy Prediabetes Dyslipidemia, goal LDL below 160 Prostate cancer (HCC) Heart failure (HCC) Chronic kidney disease, stage 3a (HCC) S/P angioplasty with stent Hyponatremia 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 * DIFFERENTIAL AND PLAN: Markus Wharton is a 79-year-old male with a past medical history of CAD, HFrEF (EF 35 - 40%), hypertension, metastatic prostate cancer (status post palliative radiation and Lupron with chronic indwelling Ingram catheter), BPH, RA, prediabetes, CKD 3A, hyperlipidemia, known puboprostatic fistula who was initially admitted to the ICU for septic shock. Patient subsequently weaned off of vasopressors and transferred to the general medical floor. Evaluated by Urology and Infectious Disease while in ICU. Urology is not recommending any acute urologic intervention during hospitalization at this time. Infectious Disease is following and making antibiotic recommendations. They have also recommended IR guided aspiration to assist with guiding antibiotic therapy moving forward for suspected pubic OM. Septic Shock (Resolved) Possible Parasymphyseal Abscess Possible Pubic Symphysis OM\\ Known Puboprostatic Fistula: Blood and urine cx from [facility]. OSH urine cx as outlined above. Unclear if findings on imaging represent true abscess or OM. - Urology following - appreciate recs - No plan for acute urologic intervention at this time - Maintain ingram catheter - Will need close outpatient urology follow up - ID following - appreciate recs - Cont vancomycin - dose per pharmacy - Cont zosyn 4.5g q8hr - Follow all cultures - Plan for IR guided aspiration of possible parasymphyseal abscess (06/06?). NPO 2400. - Will likely need PICC on long-term abx CAD and [place] s/p AFSANEH to LAD in 08/2023 Chronic HFrEF (EF 35-40%) HTN HLD: Euvolemic on exam. Significant elevated trops on admission, likely demand related to shock on admission. No symptoms to suggest ACS at this time. ECG without any evidence of ischemia; no TWI or ST segment changes. TTE does have further reduced EF and WMA. - Continue MARKETING AND PUBLIC RELATIONS MANAGER aspirin & plavix - Continue MARKETING AND PUBLIC RELATIONS MANAGER crestor - Cont MARKETING AND PUBLIC RELATIONS MANAGER metop XL 25mg BID - Resume MARKETING AND PUBLIC RELATIONS MANAGER losartan 25mg daily - Cont to hold MARKETING AND PUBLIC RELATIONS MANAGER lasix 20mg BID for now. - Will need cards follow up on DC Chronic Hyponatremia, SIADH: - Clarify if patient takes MARKETING AND PUBLIC RELATIONS MANAGER urea? - Monitor Na Rheumatoid arthritis - Takes methotrexate every Thursday - will hold for now in the setting of septic shock/active infection Stage III Ulcer, Gluteal Folds: - Wound care consulted - PT/OT Metastatic Prostate Cancer Acute on chronic anemia: S/p palliative radiation and lupron. - Required 1u PRBC on 06/04 - Appreciate blood conservation recommendations - Continue MARKETING AND PUBLIC RELATIONS MANAGER folic acid PHARMACOLOGIC VTE PROPHYLAXIS: Enoxaparin CODE STATUS: Full Code EXPECTED DISCHARGE DATE: No information available I spent a total of 55 minutes coordinating, documenting, and providing care for this patient excluding time spent in the performance of separately billed services or time spent by another provider/QHP. * Nakul Smith MD - 06/05/2024 7:16 AM EST PROGRESS NOTE - Urology [facility] [id number] Name: Markus Wharton Location: [facility] H[facility] Date: 06/05/2024 Time: 7:16 AM No acute events overnight. Afebrile vital signs stable. Transferred to floor status. Medicine team planning for IR aspiration of fluid collection for culture. Subjective: The patient reports feeling well. He was no acute concerns this morning. He denies any fever or chills. Chest pain or shortness of breath. Objective: Vitals: BP: 113 mmHg/65 mmHg (06/05/24645) Pulse: 77 (06/05/24645) Resp: 18 (06/05/24645) Temp: 36.11 C (06/05/24645) Temp Summary: Temp Min: 35.9 °C (96.6 °F) Max: 37.3 °C (99.1 °F) SpO2: 99 % (06/05/24645) O2 flow rate: 0 L/MIN (06/04/24 1500) Supplemental O2 Delivery: Room Air, None (06/05/24645) Most Recent Systolic BP Av mmHg Min: 88 mmHg Max: 135 mmHg Most Recent Temperature Av.4 C Min: 35.89 C Max: 37.28 C Pulse Av.3 Min: 77 Max: 100 Resp Av.1 Min: 17 Max: 26 SpO2 Av.4 % Min: 97 % Max: 100 % UOP: 720 Physical Exam: General: alert, awake, oriented to person and place and situation Heart: regular rate, regular rhythm, no murmur Chest: non-labored breathing Abdomen: soft, non-distended : Ingram in and draining clear yellow urine Labs: Lab Results Component Value Date/Time WBC 8.58 06/04/2024 01:10 PM WBC 7.71 06/04/2024 05:37 AM WBC 16.23 (H) 06/03/2024 05:30 AM WBC 11.70 (H) 07/11/2019 01:37 PM WBC 9.52 01/10/2019 09:55 AM WBC 9.84 07/09/2018 09:36 AM HGB 7.9 (L) 06/04/2024 01:10 PM HGB 6.8 (L) 06/04/2024 05:37 AM HGB 7.8 (L) 06/03/2024 05:30 AM HGB 8.4 (A) 05/18/2024 12:00 AM HGB 15.8 02/27/2021 12:00 AM HGB 14.4 11/12/2020 12:00 AM HGB 14.4 07/11/2019 01:37 PM HGB 14.8 01/10/2019 09:55 AM HGB 15.0 07/09/2018 09:36 AM CREAT 1.1 06/04/2024 05:37 AM CREAT 1.1 06/03/2024 02:02 PM CREAT 1.1 06/03/2024 05:30 AM CREAT 0.88 05/18/2024 12:00 AM CREAT 1.05 02/27/2021 12:00 AM CREAT 1.07 10/12/2020 12:00 AM CREAT 1.1 07/11/2019 01:37 PM CREAT 1.2 04/25/2019 09:53 AM CREAT 1.0 01/10/2019 09:55 AM Imaging: No imaging results in the last 72 hours IMPRESSION / PLAN: Markus is a 71-year-old male with history of prostate cancer status post radiation with imaging history consistent with puboprostatic fistula. He is clinically improving. -no acute urologic intervention at this time -follow up cultures narrow antibiotics as able -maintain Ingram catheter to drainage -Urology has arranged for outpatient follow up for further discussion of treatment for puboprostatic fistula Patient to be discussed with Dr. Nakul Henriquez MD PGY2 Urology Resident I saw and evaluated the patient today. I have reviewed the resident/fellow physician note and agree. * Jennifer Sexton MD - 06/04/2024 3:52 PM EDT TRANSFER RECEIVING NOTE - Hospital Medicine [address] [address] Name: Markus Wharton [place] [facility] [facility] HANDOFF COMMUNICATION: Sending patient service: [facility] Accepting service: Hospital Medicine Sending attending aware of patient and transfer: yes Receiving attending aware of patient and transfer: yes Name of receiving attending provider: Jennifer Sexton MD Patient care is being assumed by receiving service: when patient arrives in receiving unit Reason for transfer: De escalation of care HPI 'Patient is a 79 year old male with a medical history significant for CAD with [place] s/p AFSANEH to LAD in08/2023 on aspirin and plavix, chronic HFrEF (EF 45%) on GDMT, NICM, hypertension, history of metastatic prostate cancer s/p palliative radiation and lupron with chronic indwelling ingram catheter (exchanged here by urology on 06/02), BPH, history of UTI, rheumatoid arthritis, prediabetes (A1c 6%), CKD IIIA, dyslipidemia, puboprostatic fistula who presented with confusion and weakness. He was foundto be in septic shock requiring pressors, presumably secondary to infectious process involving "prostate, seminal vesicles, bladder, symphysis pubis and adjacent soft tissues He has been weaned off norepinephrine SUBJECTIVE: Denies pain, SOB, chills, constipation States pus around his ingram catheter has reduced Was able to ambulate with a walker prior to admission TRANSFER MEDICATION RECONCILIATION COMPLETED? yes OBJECTIVE: Most Recent Vital Signs: BP: 120 mmHg/58 mmHg (06/04/24 1500) Pulse: 94 (06/04/24 1500) Resp: 19 (06/04/24 1500) Temp: 36.72 C (06/04/24 1400) Temp Summary: Temp Min: 35.9 °C (96.6 °F) Max: 36.8 °C (98.2 °F) SpO2: 100 % (06/04/241499) O2 flow rate: 1 L/MIN (06/04/241499) Supplemental O2 Delivery: Nasal Cannula (06/04/241499) Vital Signs Last 24 Hours: Systolic BP: Most Recent Systolic BP Av.8 mmHg Min: 87 mmHg Max: 135 mmHg Temperature: Most Recent Temperature Av.4 C Min: 35.89 C Max: 36.78 C Pulse: Pulse Av.6 Min: 70 Max: 99 Respirations: Resp Av.6 Min: 16 Max: 28 SpO2: SpO2 Av % Min: 91 % Max: 100 % Intake/Output Summary (Last 24 hours) at 06/04/2024 1657 Last data filed at 06/04/2024 1500 Gross per 24 hour Intake 3121.7 ml Output 2300 ml Net 821.7 ml Patient Vitals for the past 72 hrs: Weight 06/04/24 0600 122.6 kg (270 lb 4.5 oz) 06/03/24 0600 129 kg (284 lb 6.3 oz) 06/02/24 0600 123.4 kg (272 lb 0.8 oz) 06/01/24 2315 123.4 kg (272 lb 0.8 oz) PHYSICAL EXAMINATION: 1. Constitutional: Patient is in no apparent distress. 2. Heart: S1, S2 regular rate and rhythm. 3. Lungs: Clear to auscultation bilaterally. 4. Abdomen: Soft, non-distended, non-tender, bowel sounds present. 5. Skin: No evidence of rash at the exposed areas. 6. Psychiatric: No evidence of lability or overt depression. 7. HEENT: EOMI, PERRLA, no facial asymmetry. 8 Extremities: sequentials on, no edema of feet 9. Neurological: AAO x 3, moves all four extremities on command. : ingram catheter with purulent drainage around it IMPRESSION and PLAN: Principal Problem: Septic shock (HCC) (POA: Yes) Principal Problem: Septic shock (HCC) (POA: Yes) Active Problems: Macular degeneration (POA: Yes) BMI 35-39 ISOLATED (SEE ACTUAL BMI) (POA: Yes) Overview: Per Obesity Protocol, #19 Rheumatoid arthritis involving multiple sites with positive rheumatoid factor (HCC) (POA: Yes) HTN, goal below 130/80 (POA: Yes) Fuchs' corneal dystrophy (POA: Yes) Prediabetes (POA: Yes) Overview: Per Prediabetes protocol #1 Dyslipidemia, goal LDL below 160 (POA: Yes) Prostate cancer (HCC) (POA: Yes) Heart failure (HCC) (POA: Yes) Chronic kidney disease, stage 3a (HCC) (POA: Yes) Overview: Per CKD protocol S/P angioplasty with stent (POA: Yes) Hyponatremia (POA: Unknown) 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 (POA: Unknown) Pelvic abscess in male (HCC) (POA: Unknown) Osteomyelitis of symphysis pubis (HCC) (POA: Unknown) POA = Present On Admission Septic shock-resolved Urinary tract infection Concern for pubic osteomyelitis from radiation therapy History of UTI Known puboprostatic fistula Urology consulted, replaced ingram 06/02 due to malpositioning read on CT scan Reported pus per son 2 days prior to admission during ingram exchange No surgical intervention at this time Consider definitive urinary diversion for puboprostatic fistula at later date They don't recommend drainage or biopsy at this time Infectious disease consult: Continue zosyn Switch from linezolid to vancomycin Patient will likely need assistant terminal manager abx therapy Recommend IR culture to guide abx treatment - order placed by ICU team Prelim cultures at OSH 05/31 growing strep dysgalactiae and C striatum U/A here unremarkable Blood culture, NGTD History of PVCs CAD and [place] s/p AFSANEH to LAD in 08/2023 Chronic HFrEF (EF 45%) Nonischemic cardiomyopathy History of hypertension Dyslipidemia Initial elevated troponin - down trending - discontinue trend ECG without any evidence of ischemia; no TWI or ST segment changes TTE 11/2023 with EF 45%, G1DD, no valvular abnormalities TTE 06/03 - EF 35-39% (moderately reduced). There is a moderate sized apical, anteroseptal, and anterior wall motion abnormality with akinesis of the segments. There is a moderate sized apical and posterior wall motion abnormality with hypokinesis to akinesisof the segments. The right ventricular systolic function is qualitatively normal. Continue MARKETING AND PUBLIC RELATIONS MANAGER aspirin & plavix Continue MARKETING AND PUBLIC RELATIONS MANAGER crestor ICU started metoprolol XL 12.5 mg BID - MARKETING AND PUBLIC RELATIONS MANAGER dose is 25 mg BID Holding MARKETING AND PUBLIC RELATIONS MANAGER furosemide 20 mg BID, losartan BNP - 7812 on 06/02 Cardiology follow at some point Possible pubic osteomyelitis from radiation therapy Stage III ulcer on bilateral gluteal folds Rheumatoid arthritis Takes methotrexate every Thursday - will hold for now in the setting of septic shock Wound care consulted PT/OT History of metastatic prostate cancer s/p palliative radiation and lupron Acute on chronic anemia Hb 6.8 this morning - received 1U pRBC - repeat Hb 7.9 Appreciate blood conservation recommendations Continue MARKETING AND PUBLIC RELATIONS MANAGER folic acid VTE/DVT Prophylaxis: SCDs, TEDs, lovenox * Angle Albarado MD - 06/04/2024 3:05 PM EDT BRIEF TRANSFER OUT OF INTENSIVE CARE NOTE - CRITICAL CARE MEDICINE [facility] [address] Name: Markus Wharton Current Location: [place] [address]/ Primary ICU Problem: Septic shock - presumed secondary to urosepsis ICU Course/Complications: Patient is a 79 year old male with a medical history significant for CAD with [place] s/p AFSANEH to LAD in 08/2023 on aspirin and plavix, chronic HFrEF (EF 45%) on GDMT, NICM, hypertension, history of metastatic prostate cancer s/p palliative radiation and lupron with chronic indwelling ingram catheter (exchanged here by urology on 06/02), BPH, history of UTI, rheumatoid arthritis, prediabetes (A1c 6%), CKD IIIA, dyslipidemia who was experiencing some confusion and generalized weakness prior to admission. He was found to be in septic shock, presumably secondary to infectious process involving "prostate, seminal vesicles, bladder, symphysis pubis and adjacent soft tissues". Of note, patient has a known puboprostatic fistula. Urology evaluated the patient and did not deem surgical intervention necessary. Patient has been improving on IV antibiotics. Urology does not think IR biopsy is necessary, but ID is requesting it for guidance on antibiotic management. IR is consulted - timing for biopsy TBD. Delirium: No Mechanical Ventilation: Intubated: No Difficult airway: No Major Procedures: Left ulnar arterial line 06/02 - removed 06/04 Medications: Medication changes: Holding MARKETING AND PUBLIC RELATIONS MANAGER lasix, urea, losartan Holding MARKETING AND PUBLIC RELATIONS MANAGER methotrexate Restarted metoprolol XL at half dose All other MARKETING AND PUBLIC RELATIONS MANAGER medications restarted as per OCT Antibiotics: Yes, Vancomycin and Zosyn - per ID, expect extended course (exact duration TBD) Pending ICU Issues: Active issues currently being followed or monitored at time of transfer out of ICU: IR biopsy/abscess aspiration on Thursday (tentative) Continue vanc/zosyn - duration TBD by infectious disease Acute on chronic anemia - given 1U pRBC with appropriate response on 06/04 Consults following or that need to be accomplished: Urology, Infectious Disease both following - Interventional Radiology consult placed - hoping for aspiration/biopsy Thursday Central Lines/Chest Tubes/PICC/IUBC: Remaining in place: No Family Meeting/Goals of Care: Full Code Family meeting summary/decision makers: Patient makes decisions for himself. His son is also very involved. Follow Up: Outpatient follow up clinics/labs/studies: Urology, Infectious Disease, Cardiology for worsening heart failure Incidental findings that need to be addressed: None * Nakul Smith MD - 06/04/2024 8:02 AM EDT PROGRESS NOTE - Urology [facility] [address] Name: Markus Wharton Location: [facility] A455/A Date: 06/04/2024 Time: 8:02 AM Hemoglobin 6.8 this morning, 1 unit of blood ordered. Patient is now off pressors afebrile vital signs stable. Infectious Disease recommended transitioning to linezolid and vancomycin IV. Subjective: The patient has no acute concerns at this time. He does report feeling tired as he was not been able to sleep well. White cell count improved this morning 7.7 from 16.2 Objective: Vitals: BP: 109 mmHg/41 mmHg (06/04/24 0700) Pulse: 96 (06/04/24 0700) Resp: 25 (06/04/24699) Temp: 36.28 C (06/04/24599) Temp Summary: Temp Min: 36.2 °C (97.2 °F) Max: 36.8 °C (98.2 °F) SpO2: 100 % (06/04/24699) O2 flow rate: 1 L/MIN (06/04/24699) Supplemental O2 Delivery: Nasal Cannula (06/04/24699) Most Recent Systolic BP Av.1 mmHg Min: 85 mmHg Max: 135 mmHg Most Recent Temperature Av.5 C Min: 36.22 C Max: 36.78 C Pulse Av.7 Min: 67 Max: 98 Resp Av.5 Min: 16 Max: 39 SpO2 Av.5 % Min: 91 % Max: 100 % UOP: 2450 Physical Exam: General: alert, awake, oriented to person and place and situation Heart: regular rate Chest: non-labored breathing Abdomen: soft, non-tender, non-distended Extremities: no edema : Circumcised penis. Ingram in and draining clear yellow urine Labs: Lab Results Component Value Date/Time WBC 7.71 06/04/2024 05:37 AM WBC 16.23 (H) 06/03/2024 05:30 AM WBC 32.30 (H) 06/02/2024 05:42 AM WBC 11.70 (H) 07/11/2019 01:37 PM WBC 9.52 01/10/2019 09:55 AM WBC 9.84 07/09/2018 09:36 AM HGB 6.8 (L) 06/04/2024 05:37 AM HGB 7.8 (L) 06/03/2024 05:30 AM HGB 8.2 (L) 06/02/2024 05:42 AM HGB 8.4 (A) 05/18/2024 12:00 AM HGB 15.8 02/27/2021 12:00 AM HGB 14.4 11/12/2020 12:00 AM HGB 14.4 07/11/2019 01:37 PM HGB 14.8 01/10/2019 09:55 AM HGB 15.0 07/09/2018 09:36 AM CREAT 1.1 06/04/2024 05:37 AM CREAT 1.1 06/03/2024 02:02 PM CREAT 1.1 06/03/2024 05:30 AM CREAT 0.88 05/18/2024 12:00 AM CREAT 1.05 02/27/2021 12:00 AM CREAT 1.07 10/12/2020 12:00 AM CREAT 1.1 07/11/2019 01:37 PM CREAT 1.2 04/25/2019 09:53 AM CREAT 1.0 01/10/2019 09:55 AM Urinalysis not suspicious for infection Imaging: No imaging results in the last 72 hours IMPRESSION / PLAN: Markus is a 71-year-old male with a history of prostate cancer status post radiation with imaging and history consistent with puboprostatic fistula. He is overall clinically improving. Now off pressors. -acute urologic intervention at this time -maintain Ingram catheter at this time to drainage -definitive treatment for puboprostatic fistula with urinary diversion procedure may be considered in the future Patient to be discussed with Dr. Luis Henriquez MD PGY2 Urology Resident I saw and evaluated the patient today. I have reviewed the resident/fellow physician note and agree. We discussed the puboprostatic fistula. He was not having any issues until the Ingram was in his prostatic urethra. He denied hip or pubic pain prior to this. We discussed conservative versus more aggressive management of this with the urinary diversion. He will follow up with Dr. Sexton as an outpatient. No indication for any further intervention currently. Nakul Smith MD * Angle Albarado MD - 06/04/2024 7:13 AM EDT CCM - PROGRESS NOTE [facility] [address] Name: Markus Wharton Location: [facility] A455/A Date: 06/04/2024 Time: 8:22 AM PATIENT DESCRIPTION: Patient is a 79 year old male with a medical history significant for CAD with [place] s/p AFSANEH to LAD in 08/2023 on aspirin and plavix, chronic HFrEF (EF 45%) on GDMT, NICM, hypertension, history of metastatic prostate cancer s/p palliative radiation and lupron with chronic indwellingfoley catheter (exchanged here by urology on 06/02), BPH, history of UTI, rheumatoid arthritis, prediabetes (A1c 6%), CKD IIIA, dyslipidemia who was experiencing some confusion and generalized weakness prior to admission. His outpatient labs on 05/30 were notable for hyponatremia to 120. At that point, patient's health services administrator had recommended he to go to the ED to seek medical attention. In the ED, he was found to be tachycardic, hypotensive and febrile to 101F. A CTA A/P was done which showed "findings consistent with an extensive infectious process involving the prostate, seminal vesicles, bladder, symphysis pubis and adjacent soft tissues with multiple locules of extraluminal gas and a 6.3 x 1.5 cm parasymphyseal collection consistent with an abscess. Associated erosion of themedial bilateral pubic bones with widening of the symphysis consistent with osteomyelitis. A gas-forming infectious process can not be excluded." He received Vancomycin & zosyn, 1L crystalloids and 1 dose of albumin. Additionally, he did go into new onset Afib with RVR HR into the 140's but it a borted with 1 dose of metoprolol and hasn't recurred since. Troponin was also noted to be elevated to 400's. Decision was made to transfer to [facility] for possible IR drainage/bone biopsy. Urology was consulted on admission, there is low suspicion for necrotizing fasciitis. He has a pubourethral fistula which would be exacerbated by scoping. CT scan did comment on malpositioned ingram catheter so ingram was exchanged by urology here at [facility] on 06/02. HPI/EVENTS OF NOTE: No acute events overnight. Afebrile. Vital signs stable. Continues to have PVCswhich are baseline for him. 1L NC. Had a bowel movement this morning. Levo off. Electrolytes repleted this morning. Hb 6.8, currently receiving 1U pRBC. CONSTITUTIONAL DATA: BP: 109 mmHg/41 mmHg (06/04/24 0700) Pulse: 96 (06/04/24 0700) Resp: 25 (06/04/24 0700) Temp: 36.28 C (06/04/24 0600) Temp Summary: Temp Min: 36.2 °C (97.2 °F) Max: 36.8 °C (98.2 °F) SpO2: 100 % (06/04/24699) O2 flow rate: 1 L/MIN (06/04/24699) Supplemental O2 Delivery: Nasal Cannula (06/04/24699) PHYSICAL EXAM: Constitutional: Appearance: Normal appearance. He is overweight. HENT: Head: Normocephalic and atraumatic. Eyes: Extraocular Movements: Extraocular movements intact. Conjunctiva/sclera: Conjunctivae normal. Pupils: Pupils are equal, round, and reactive to light. Cardiovascular: Rate and Rhythm: Normal rate and regular rhythm. Pulses: Normal pulses and intact distal pulses. Heart sounds: Normal heart sounds. Pulmonary: Effort: Pulmonary effort is normal. Breath sounds: Normal breath sounds. No wheezing, rhonchi or rales. Abdominal: General: Abdomen is protuberant. Palpations: Abdomen is soft. Tenderness: There is no abdominal tenderness. Musculoskeletal: Comments: +1 pitting edema in bilateral lower extremities Skin: General: Skin is warm and dry. . Comments: Stage III ulcer on both gluteal folds, appears grossly uninfected; no surrounding erythema, pus or edema : no crepitus, minimal erythema, no tenderness to palpation of scrotum Neurological: Mental Status: He is alert and oriented to person, place, and time. Mental status is at baseline. Psychiatric: Behavior: Behavior is cooperative. LABORATORY VALUES: reviewed RADIOGRAPHIC STUDIES: reviewed Active Problems: Macular degeneration (POA: Yes) BMI 35-39 ISOLATED (SEE ACTUAL BMI) (POA: Yes) Rheumatoid arthritis involving multiple sites with positive rheumatoid factor (HCC) (POA: Yes) HTN, goal below 130/80 (POA: Yes) Fuchs' corneal dystrophy (POA: Yes) Prediabetes (POA: Yes) Dyslipidemia, goal LDL below 160 (POA: Yes) Prostate cancer (HCC) (POA: Yes) Heart failure (HCC) (POA: Yes) Chronic kidney disease, stage 3a (HCC) (POA: Yes) S/P angioplasty with stent (POA: Yes) Hyponatremia (POA: Unknown) Septic shock (HCC) (POA: Unknown) POA = Present On Admission SYSTEM BASED PLAN: NEUROLOGICAL: Analgesia: PRN tylenol, PRN oxy 2.5/5 PULMONARY / RESPIRATORY: Satting well on 1L NC - wean as able Respiratory driven protocol Incentive spirometer and flutter valve CARDIOVASCULAR: History of PVCs Septic shock 2/2 UTI CAD and [place] s/p AFSANEH to LAD in 08/2023 Chronic HFrEF (EF 45%) Nonischemic cardiomyopathy History of hypertension Dyslipidemia Initial elevated troponin - down trending - discontinue trend ECG without any evidence of ischemia; no TWI or ST segment changes TTE 11/2023 with EF 45%, G1DD, no valvular abnormalities TTE 06/03 - EF 35-39% (moderately reduced). There is a moderate sized apical, anteroseptal, and anterior wall motion abnormality with akinesis of the segments. There is a moderate sized apical and posterior wall motion abnormality with hypokinesis to akinesisof the segments. The right ventricular systolic function is qualitatively normal. On levophed, maintain MAP >65 for end organ perfusion - wean as able Continue MARKETING AND PUBLIC RELATIONS MANAGER aspirin & plavix Continue MARKETING AND PUBLIC RELATIONS MANAGER crestor Start metoprolol XL 12.5 mg BID - MARKETING AND PUBLIC RELATIONS MANAGER dose is 25 mg BID Holding MARKETING AND PUBLIC RELATIONS MANAGER furosemide 20 mg BID, losartan BNP - 7812 on 06/02 GASTROINTESTINAL / HEPATOBILIARY: Bowel Regimen: senna, colace Last bowel movement: 06/04 Stress Ulcer Prophylaxis: not indicated at this time. Diet / Nutrition: regular diet plus protein supplement RENAL / METABOLIC / FLUIDS: Hyponatremia FREDY on CKD IIIA BPH with chronic indwelling ingram catheter Sodium 123 on admission with serum osom of 259 and urine osom of 375 at [facility] Hyponatremia improving Hold MARKETING AND PUBLIC RELATIONS MANAGER urea Daily BMP INFECTIOUS DISEASES: Urinary tract infection Concern for possible miriam's gangrene (less likely) Concern for pubic osteomyelitis from radiation therapy History of UTI Known puboprostatic fistula Urology consulted, replaced ingram 06/02 due to malpositioning read on CT scan Reported pus per son 2 days prior to admission during ingram exchange No surgical intervention at this time Consider definitive urinary diversion for puboprostatic fistula at later date Do not recommend drainage or biopsy at this time Infectious disease consult: Continue zosyn Switch from linezolid to vancomycin Patient will likely need assistant terminal manager abx therapy Recommend IR culture to guide abx treatment - order placed, will reach out to team Prelim cultures at OSH 05/31 growing strep dysgalactiae and C striatum U/A here unremarkable Blood culture, NGTD ENDOCRINE: Prediabetes A1c 6% in 11/2023 Blood Glucose Monitoring (BGM) Goal: 140-180. Medium dose SSI Hypoglycemia protocol in place HEMATOLOGIC/ONCOLOGIC: History of metastatic prostate cancer s/p palliative radiation and lupron Acute on chronic anemia Hb 6.8 this morning - giving 1U pRBC - will obtain post transfusion CBC Appreciate blood conservation recommendations Continue MARKETING AND PUBLIC RELATIONS MANAGER folic acid VTE/DVT Prophylaxis: SCDs, TEDs, lovenox MUSCULOSKELETAL/ P.T / O.T. 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 Stage III ulcer on bilateral gluteal folds Rheumatoid arthritis Takes methotrexate every Thursday - will hold for now in the setting of septic shock Wound care consulted PT/OT Lines/Tubes/Devices LINES ALL Duration Peripheral Line Lower;Posterior;Right Arm 20 Gauge 2 days Peripheral Line Right;Upper 20 Gauge 2 days Urethral Catheter Coude 2 days Arterial Line Left 1 day GLOBAL ISSUES: Analgesia: protocol with control Sedation: 100% holiday per protocol Delirium/Confusion Assessment Method for ICU (CAM-ICU): CAM-ICU negative HOB Elevation: greater than 30 degress Nutrition: PO DVT Prophylaxis: chemoprophylaxis with pneumatic compression devices Stress Ulcer Prophylaxis: not indicated Glycemic Control: controlled - not in protocol Central Line Necessity Reviewed: N/A Ingram: reviewed and needed Disposition: keep in ICU Patient's decisional capacity: has capacity to make decisions Communication with Patient/Family: Patient and son updated at bedside. All questions answered to satisfaction. Goals of Care: stabilize hemodynamic status and decrease pain and discomfort Patient examined and discussed with Dr. Ramirez. Angle Albarado MD [facility] General Surgery PGY-4 Cosigned by Yaniv Ramirez MD at 06/04/2024 2:12 PM EDT Associated attestation - Yaniv Ramirez MD - 06/04/2024 2:12 PM EDT I saw and evaluated the patient today. I have reviewed the resident/fellow physician note and agree. Neurological: Pain/Sedation - Tylenol ATC - Oxy PRN Respiratory: Hypoxia - Wean oxygen as tolerated - Encourage IS Cardiovascular: Shock, likely distibutive - Weaned off Levophed - TTE completed Tachycardia with PVCs - Received one dose IV lopressor at OSH - Resume MARKETING AND PUBLIC RELATIONS MANAGER lopressor at decreased dose Hx of CHF, systolic dysfunction - Holding MARKETING AND PUBLIC RELATIONS MANAGER lasix Hx of CAD s/p AFSANEH - Holding MARKETING AND PUBLIC RELATIONS MANAGER Plavix for this AM Hx of DLD - Resume MARKETING AND PUBLIC RELATIONS MANAGER statin Gastrointestinal: Nutrition - Regular diet Infectious Disease: Concern for necrotizing infections or osteomyelitis - Urology consulted - Pt has known fistula due to his cancer which is likely the findings on CT - ID following - ID recommending IR aspiration of suprapubic collection for antibiotic guidance - Continue Zosyn - Continue Vancomycin Renal - Metabolic: Hx of prostate cancer - Continue Flomax Hx of CKD stage 3a - Keep ingram in place Hyponatremia - Hold MARKETING AND PUBLIC RELATIONS MANAGER Urea Endocrine: Hx of rheumatoid arthritis - Holding MARKETING AND PUBLIC RELATIONS MANAGER methotrexate Hematology: Metastatic prostate cancer - Urology following Hx of chronic anemia - Continue to monitor GI ppx: N/A DVT ppx: Lovenox Lines: PIV, ingram Diet: Regular Bowel regimen: Senna, Colace and LBM: 06/04/2024 Pain regimen: Tylenol, Oxy Level of care: ICU Disposition: Transfer to Med/Surg floor I have provided critical care diagnostic services for circulatory failure, overwhelming infection and therapeutic services with volume resuscitation, frequent vasoactive agent adjustments, frequent evaluation and titration of therapies, application of advanced monitoring technologies for this patient on the date referenced above. Time devoted to patient care services described in this note equal:30 minutes total critical care time exclusive of time spent performing procedures or time spent by another provider or resident. Upon my evaluation, this patient had a high probability of imminent or life- threatening deterioration due to shock, which required my direct attention, intervention, and personal management. Yaniv Ramirez MD * Rico Bernal, [facility] - 06/03/2024 7:56 PM EDT PHARMACY PHARMACOKINETIC CONSULT [facility] [address] Name: Markus Wharton Location: [facility] A455/A Date: 06/03/2024 Time: 7:53 PM Requesting Service: @[email or web address]@ Bacteria being treated: Empiric Source of infection: Pubic/pelvic abcess Medication(s) being managed: Vancomycin Pharmacokinetic calculations will be performed utilizing readfy software. Lab information: Lab Results Component Value Date/Time WBC 16.23 (H) 06/03/2024 05:30 AM WBC 32.30 (H) 06/02/2024 05:42 AM WBC 36.61 (H) 06/01/2024 11:23 PM WBC 8.43 05/31/2024 09:03 AM WBC 14.62 (H) 03/21/2024 08:43 AM WBC 11.70 (H) 07/11/2019 01:37 PM WBC 9.52 01/10/2019 09:55 AM WBC 9.84 07/09/2018 09:36 AM WBC 9.86 01/01/2018 09:28 AM WBC 10.57 07/03/2017 10:49 AM Lab Results Component Value Date/Time BUN 26 (H) 06/03/2024 02:02 PM BUN 21 (H) 06/03/2024 05:30 AM BUN 15 06/02/2024 11:11 AM BUN 15 06/02/2024 05:42 AM BUN 17 06/02/2024 12:06 AM BUN 20 04/25/2019 09:53 AM BUN 13 10/19/2018 09:42 AM BUN 20 01/01/2018 09:29 AM BUN 18 05/07/2017 09:06 AM BUN 15 12/04/2016 10:50 AM Lab Results Component Value Date/Time CREAT 1.1 06/03/2024 02:02 PM CREAT 1.1 06/03/2024 05:30 AM CREAT 1.4 (H) 06/02/2024 11:11 AM CREAT 1.4 (H) 06/02/2024 05:42 AM CREAT 1.6 (H) 06/02/2024 12:06 AM CREAT 0.88 05/18/2024 12:00 AM CREAT 1.05 02/27/2021 12:00 AM CREAT 1.07 10/12/2020 12:00 AM CREAT 1.08 07/09/2020 12:00 AM CREAT 1.23 04/03/2020 12:00 AM CREAT 1.1 07/11/2019 01:37 PM CREAT 1.2 04/25/2019 09:53 AM CREAT 1.0 01/10/2019 09:55 AM CREAT 1.0 10/19/2018 09:42 AM CREAT 1.2 07/09/2018 09:36 AM ANTIMICROBIALS GIVEN (last 28 hours) Date/Time Action Medication Dose Rate 06/03/24 1513 New Bag Piperacillin-Tazobactam (Zosyn) 4.5 g in 100 mL NSS ivpb (FOUR hour infusion) 4.5 g 26.25 mL/hr 06/03/24 1235 New Bag Linezolid (Zyvox) ivpb 600 mg 600 mg 300 mL/hr 06/03/24 0816 New Bag Piperacillin-Tazobactam (Zosyn) 4.5 g in 100 mL NSS ivpb (FOUR hour infusion) 4.5 g 26.25 mL/hr 06/03/24 0011 New Bag Linezolid (Zyvox) ivpb 600 mg 600 mg 300 mL/hr 06/03/24 0008 New Bag Piperacillin-Tazobactam (Zosyn) 4.5 g in 100 mL NSS ivpb (FOUR hour infusion) 4.5 g 26.25 mL/hr Wt Readings from Last 1 Encounters: 06/03/24 129 kg (284 lb 6.3 oz) Levels to date: No results found for: "VANCO", "VANCOPEAK", "VANCORANDOM", "VANCOTROUGH", "GENTPEAK", "GENTRANDOM","GENTTROUGH", "TOBRAPEAK", "TOBRARANDOM", "TOBRATROUGH", "AMIKAPEAK", "AMIKARANDOM", "AMIKATROUGH" Impression: Markus Wharton is a/an 79 year old male receiving vancomycin therapy. The pharmacokinetic targetfor therapy is AUC24,SS (range) 400-600mg/L.hr Assessment and Plan: Analysis using Razorsight gives the following patient-specific pharmacokinetic parameters: CL: 3.57 L/hr V: 87.1 L T1/2: 17.8 hours At this time we recommend a loading dose of 2500 mg at 21:00 06/03/2024, followed by a regimen of 1000 mg IV every 12 hours, which is predicted to result in a steady-state trough of 16.3 mg/L and AUC24 of 498 mg/L.hr. Recommendations: - Vancomycin 1000 mg IV every 12 hours - Obtain Vancomycin level in 48-72 hours - Continue to monitor serum creatinine Pharmacy will continue to follow and dose as appropriate by renal function, culture results, infectious disease input, and overall clinical status. Contact the Pharmacy at extension [phone] if there are any questions. Rico Bernal RPh * Raina Villar, - 06/03/2024 8:29 AM EDT CCM - PROGRESS NOTE [facility] [address] Name: Markus Wharton Location: [facility] A455/A Date: 06/02/2024 Time: 8:22 AM PATIENT DESCRIPTION: Patient is a 79 year old male with a medical history significant for CAD with [place] s/p AFSANEH to LAD in 08/2023 on aspirin and plavix, chronic HFrEF (EF 45%) on GDMT, NICM, hypertension, history of metastatic prostate cancer s/p palliative radiation and lupron with chronic indwellingfoley catheter (exchanged here by urology on 06/02), BPH, history of UTI, rheumatoid arthritis, prediabetes (A1c 6%), CKD IIIA, dyslipidemia who was experiencing some confusion and generalized weakness prior to admission. His outpatient labs on 05/30 were notable for hyponatremia to 120. At that point, patient's health services administrator had recommended he to go to the ED to seek medical attention. In the ED, he was found to be tachycardic, hypotensive and febrile to 101F. A CTA A/P was done which showed "findings consistent with an extensive infectious process involving the prostate, seminal vesicles, bladder, symphysis pubis and adjacent soft tissues with multiple locules of extraluminal gas and a 6.3 x 1.5 cm parasymphyseal collection consistent with an abscess. Associated erosion of themedial bilateral pubic bones with widening of the symphysis consistent with osteomyelitis. A gas-forming infectious process can not be excluded." He received Vancomycin & zosyn, 1L crystalloids and 1 dose of albumin. Additionally, he did go into new onset Afib with RVR HR into the 140's but it a borted with 1 dose of metoprolol and hasn't recurred since. Troponin was also noted to be elevated to 400's. Decision was made to transfer to [facility] for possible IR drainage/bone biopsy. Urology was consulted on admission, there is low suspicion for necrotizing fasciitis. He has a pubourethral fistula which would be exacerbated by scoping. CT scan did comment on malpositioned ingram catheter so ingram was exchanged by urology here at [facility] on 06/02. HPI/EVENTS OF NOTE: Levophed increased overnight, currently at 15mcg/min. Afebrile. Saturating wellon 1L NC. Urine output 2.5L. He continues to have copious purulent fluid from Ingram which he reports is his baseline. CONSTITUTIONAL DATA: BP: 129 mmHg/53 mmHg (06/03/24704) Pulse: 79 (06/03/24699) Resp: 21 (06/03/24699) Temp: 36.78 C (06/03/24799) Temp Summary: Temp Min: 36.4 °C (97.5 °F) Max: 37.4 °C (99.3 °F) SpO2: 100 % (06/03/24699) O2 flow rate: 1 L/MIN (06/03/24699) Supplemental O2 Delivery: Nasal Cannula (06/03/24699) PHYSICAL EXAM: Constitutional: Appearance: Normal appearance. He is overweight. HENT: Head: Normocephalic and atraumatic. Eyes: Extraocular Movements: Extraocular movements intact. Conjunctiva/sclera: Conjunctivae normal. Pupils: Pupils are equal, round, and reactive to light. Cardiovascular: Rate and Rhythm: Normal rate and regular rhythm. Pulses: Normal pulses and intact distal pulses. Heart sounds: Normal heart sounds. Pulmonary: Effort: Pulmonary effort is normal. Breath sounds: Normal breath sounds. No wheezing, rhonchi or rales. Abdominal: General: Abdomen is protuberant. Palpations: Abdomen is soft. Tenderness: There is no abdominal tenderness. Musculoskeletal: Comments: +1 pitting edema in bilateral lower extremities Skin: General: Skin is warm and dry. . Comments: Stage III ulcer on both gluteal folds, appears grossly uninfected; no surrounding erythema, pus or edema : no crepitus, minimal erythema, no tenderness to palpation of scrotum Neurological: Mental Status: He is alert and oriented to person, place, and time. Mental status is at baseline. Psychiatric: Behavior: Behavior is cooperative. LABORATORY VALUES: reviewed RADIOGRAPHIC STUDIES: reviewed Active Problems: Macular degeneration (POA: Yes) BMI 35-39 ISOLATED (SEE ACTUAL BMI) (POA: Yes) Rheumatoid arthritis involving multiple sites with positive rheumatoid factor (HCC) (POA: Yes) HTN, goal below 130/80 (POA: Yes) Fuchs' corneal dystrophy (POA: Yes) Prediabetes (POA: Yes) Dyslipidemia, goal LDL below 160 (POA: Yes) Prostate cancer (HCC) (POA: Yes) Heart failure (HCC) (POA: Yes) Chronic kidney disease, stage 3a (HCC) (POA: Yes) S/P angioplasty with stent (POA: Yes) Hyponatremia (POA: Unknown) Septic shock (HCC) (POA: Unknown) POA = Present On Admission SYSTEM BASED PLAN: NEUROLOGICAL: No active concerns PRN tylenol for analgesia, PRN oxy 2.5/5 PULMONARY / RESPIRATORY: No active concerns Satting well on 1L NC Respiratory driven protocol Incentive spirometer and flutter valve CARDIOVASCULAR: History of PVCs Septic shock 2/2 UTI CAD and [place] s/p AFSANEH to LAD in 08/2023 Chronic HFrEF (EF 45%) Nonischemic cardiomyopathy History of hypertension Dyslipidemia Initial elevated troponin - down trending today - discontinue trend ECG without any evidence of ischemia; no TWI or ST segment changes Last TTE 11/2023 with EF 45%, G1DD, no valvular abnormalities Will order new TTE On levophed, maintain MAP >65 for end organ perfusion - wean as able Continue MARKETING AND PUBLIC RELATIONS MANAGER aspirin & plavix Continue MARKETING AND PUBLIC RELATIONS MANAGER crestor Holding MARKETING AND PUBLIC RELATIONS MANAGER furosemide 20 mg BID, metoprolol XL 25 mg BID, losartan BNP - 7812 on 06/02 GASTROINTESTINAL / HEPATOBILIARY: Bowel Regimen: senna, colace Last bowel movement ? Stress Ulcer Prophylaxis: not indicated at this time.. 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 History of UTI Known puboprostatic fistula Urology consulted, replaced ingram 06/02 due to malpositioning read on CT scan Reported pus per son 2 days prior to admission during ingram exchange No surgical intervention at this time Consider definitive urinary diversion for puboprostatic fistula at later date Do not recommend drainage or biopsy at this time Prelim cultures at OSH 05/31 growing strep dysgalactiae Received zosyn and vanco at OSH Antibiotic regimen here: linezolid and zosyn Antibiotic Regimen: Linezolid & zosyn for broad spectrum coverage and toxin effect U/A here unremarkable Blood culture pending, NGTD ENDOCRINE: Prediabetes A1c 6% in 11/2023 Blood Glucose Monitoring (BGM) Goal: 140-180. Medium dose SSI, accuchecks q6 hours while NPO Hypoglycemia protocol in place HEMATOLOGIC/ONCOLOGIC: History of metastatic prostate cancer s/p palliative radiation and lupron Chronic anemia Continue MARKETING AND PUBLIC RELATIONS MANAGER folic acid VTE/DVT Prophylaxis: chemoprophylaxis with pneumatic compression devices MUSCULOSKELETAL/ P.T / O.T. 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 Stage III ulcer on bilateral gluteal folds Rheumatoid arthritis Takes methotrexate every Thursday - will hold for now in the setting of septic shock Wound care consulted PT/OT once appropriate Lines/Tubes/Devices LINES ALL Duration Peripheral Line Lower;Posterior;Right Arm 20 Gauge 1 day Peripheral Line Right;Upper 20 Gauge 1 day Urethral Catheter Coude 1 day Arterial Line Left <1 day GLOBAL ISSUES: Analgesia: protocol with control Sedation: 100% holiday per protocol Delirium/Confusion Assessment Method for ICU (CAM-ICU): CAM-ICU negative HOB Elevation: greater than 30 degress Nutrition: NPO except medications DVT Prophylaxis: chemoprophylaxis with pneumatic compression devices Stress Ulcer Prophylaxis: not indicated Glycemic Control: controlled - not in protocol Central Line Necessity Reviewed: N/A Ingram: reviewed and needed Disposition: keep in ICU Patient's decisional capacity: has capacity to make decisions Communication with Patient/Family: Patient and son updated at bedside. All questions answered to satisfaction. Goals of Care: stabilize hemodynamic status and decrease pain and discomfort Patient examined and discussed with Dr. Ramirez. Raina Villar DO Resident 06/03/24 Cosigned by Yaniv Ramirez MD at 06/03/2024 12:11 PM EDT Associated attestation - Yaniv Ramirez MD - 06/03/2024 12:11 PM EDT I saw and evaluated the patient today. I have reviewed the resident/fellow physician note and agree. Neurological: Pain/Sedation - Tylenol ATC - Oxy PRN Respiratory: Hypoxia - Wean oxygen as tolerated - Encourage IS Cardiovascular: Shock, likely distibutive - Wean Levophed as toelrated - TTE ordered Tachycardia with PVCs - Received one dose IV lopressor at OSH - Holding MARKETING AND PUBLIC RELATIONS MANAGER lopressor - Can add lopressor PRN for tachycardia > 120 Hx of CHF, systolic dysfunction - Holding MARKETING AND PUBLIC RELATIONS MANAGER lasix Hx of CAD s/p AFSANEH - Holding MARKETING AND PUBLIC RELATIONS MANAGER Plavix for this AM Hx of DLD - Resume MARKETING AND PUBLIC RELATIONS MANAGER statin Gastrointestinal: Nutrition - Keep NPO Infectious Disease: Concern for necrotizing infections or osteomyelitis - Urology consulted - Pt has known fistula due to his cancer which is likely the findings on CT - No surgical intervention - No need for IR drain at this time - Continue broad spectrum antibiotics Renal - Metabolic: Hx of prostate cancer - Continue Hx of CKD stage 3a - Keep ingram in place Hyponatremia - Hold MARKETING AND PUBLIC RELATIONS MANAGER Urea Endocrine: Hx of rheumatoid arthritis - Holding MARKETING AND PUBLIC RELATIONS MANAGER methotrexate Hematology: Metastatic prostate cancer - Urology following GI ppx: N/A DVT ppx: Heparin Lines: PIV, ingram, A line Diet: NPO Bowel regimen: N/A and LBM: N/A Pain regimen: Tylenol, Oxy Level of care: ICU Disposition: To remain in the ICU I have provided critical care diagnostic services for circulatory failure, overwhelming infection and therapeutic services with volume resuscitation, frequent vasoactive agent adjustments, frequent evaluation and titration of therapies, application of advanced monitoring technologies for this patient on the date referenced above. Time devoted to patient care services described in this note equal:35 minutes total critical care time exclusive of time spent performing procedures or time spent by another provider or resident. Upon my evaluation, this patient had a high probability of imminent or life- threatening deterioration due to shock, which required my direct attention, intervention, and personal management. Yaniv Ramirez MD * Nakul Smith MD - 06/03/2024 7:06 AM EDT UROLOGY PROGRESS NOTE [address] [address] Name: Markus Wharton Location: [place] [address]A SUBJECTIVE: No acute events overnight, doing well this morning. Feeling well without any suprapubic, groin, or perineal pain. He has had increasing pressor requirements now on norepi 15. Output: Ingram 2315 PHYSICAL EXAMINATION: Most Recent Vital Signs: BP: 129 mmHg/53 mmHg (06/03/24704) Pulse: 79 (06/03/24699) Resp: 21 (06/03/24699) Temp: 36.39 C (06/03/24599) Temp Summary: Temp Min: 36.4 °C (97.5 °F) Max: 37.4 °C (99.3 °F) SpO2: 100 % (06/03/24699) O2 flow rate: 1 L/MIN (06/03/24699) Supplemental O2 Delivery: Nasal Cannula (06/03/24699) General: awake, alert and responsive Heart: Regular rate Chest: Normal WOB Abdomen: Soft nontender nondistended Extremities: no deformities, 1+ BLE edema : Ingram in and draining clear yellow urine, no suprapubic groin or perineal tenderness, erythema,or crepitus. LABS: CBC Lab Results Component Value Date/Time WBC 16.23 (H) 06/03/2024 05:30 AM WBC 11.70 (H) 07/11/2019 01:37 PM HGB 7.8 (L) 06/03/2024 05:30 AM HGB 8.4 (A) 05/18/2024 12:00 AM HGB 14.4 07/11/2019 01:37 PM HCT 25.4 (L) 06/03/2024 05:30 AM HCT 44.6 07/11/2019 01:37 PM PLT 482 (H) 06/03/2024 05:30 AM PLT 248 07/11/2019 01:37 PM BMP Lab Results Component Value Date/Time NA 129 (L) 06/03/2024 05:30 AM NA 139 04/25/2019 09:53 AM POTASSIUM 3.9 06/03/2024 05:30 AM POTASSIUM 4.0 05/18/2024 12:00 AM POTASSIUM 4.7 04/25/2019 09:53 AM CL 95 (L) 06/03/2024 05:30 AM CL 96 (L) 04/25/2019 09:53 AM CO2 22 06/03/2024 05:30 AM CO2 31 04/25/2019 09:53 AM BUN 21 (H) 06/03/2024 05:30 AM BUN 20 04/25/2019 09:53 AM CREAT 1.1 06/03/2024 05:30 AM CREAT 0.88 05/18/2024 12:00 AM CREAT 1.1 07/11/2019 01:37 PM Ca, Mg, Phos Lab Results Component Value Date/Time CA 8.0 (L) 06/03/2024 05:30 AM CA 10.4 (H) 04/25/2019 09:53 AM MG 2.4 06/03/2024 05:30 AM PHOSPHORUS 3.0 06/03/2024 05:30 AM PHOSPHORUS 3.0 05/18/2024 12:00 AM PHOSPHORUS 3.0 12/15/1996 03:00 PM CULTURES: Recent Cultures (2 Weeks) 06/02/2024 06/02/2024 12:15 AM 12:06 AM BLOOD CULTURE GROWTH No growth to date No growth to date ASSESSMENT: 71-year-old male with metastatic prostate cancer s/p EBRT on Lupron and admitted for c/f miriam'swi clinical picture more c/w puboprostatic fistula PLAN: - maintain ingram to drainage - continue broad spectrum abx, narrow as appropriate - can consider definitive management for puboprostatic fistula with urinary diversion in the future Patient to be discussed with Dr. Smith. Sloane Lawrence MD PGY1 | [facility] Urology I saw and evaluated the patient today. I have reviewed the resident/fellow physician note and agree. * Angle Albarado MD - 06/02/2024 8:21 AM EDT CCM - PROGRESS NOTE [facility] [address] Name: Markus Wharton Location: [facility] A[facility]/A Date: 06/02/2024 Time: 8:22 AM PATIENT DESCRIPTION: Patient is a 79 year old male with a medical history significant for CAD with [place] s/p AFSANEH to LAD in 08/2023 on aspirin and plavix, chronic HFrEF (EF 45%) on GDMT, NICM, hypertension, history of metastatic prostate cancer s/p palliative radiation and lupron with chronic indwellingfoley catheter (exchanged here by urology on 06/02), BPH, history of UTI, rheumatoid arthritis, prediabetes (A1c 6%), CKD IIIA, dyslipidemia who was experiencing some confusion and generalized weakness prior to admission. His outpatient labs on 05/30 were notable for hyponatremia to 120. At that point, patient's health services administrator had recommended he to go to the ED to seek medical attention. In the ED, he was found to be tachycardic, hypotensive and febrile to 101F. A CTA A/P was done which showed "findings consistent with an extensive infectious process involving the prostate, seminal vesicles, bladder, symphysis pubis and adjacent soft tissues with multiple locules of extraluminal gas and a 6.3 x 1.5 cm parasymphyseal collection consistent with an abscess. Associated erosion of themedial bilateral pubic bones with widening of the symphysis consistent with osteomyelitis. A gas-forming infectious process can not be excluded." He received Vancomycin & zosyn, 1L crystalloids and 1 dose of albumin. Additionally, he did go into new onset Afib with RVR HR into the 140's but it a borted with 1 dose of metoprolol and hasn't recurred since. Troponin was also noted to be elevated to 400's. Decision was made to transfer to [facility] for possible IR drainage/bone biopsy. Urology was consulted on admission, there is low suspicion for necrotizing fasciitis. He has a pubourethral fistula which would be exacerbated by scoping. CT scan did comment on malpositioned ingram catheter so ingram was exchanged by urology here at [facility] on 06/02. HPI/EVENTS OF NOTE: No acute events overnight. Afebrile. Levo at 12 on admission - currently at 8. Saturating well on 2L NC. Urine 1495. CONSTITUTIONAL DATA: BP: 114 mmHg/65 mmHg (06/02/24699) Pulse: 74 (06/02/24 07) Resp: 15 (06/02/24699) Temp: 36.5 C (06/02/24599) Temp Summary: Temp Min: 36.5 °C (97.7 °F) Max: 37.7 °C (99.9 °F) SpO2: 91 % (06/02/24699) O2 flow rate: 2 L/MIN (06/02/24 0500) Supplemental O2 Delivery: Room Air, None (06/02/24699) PHYSICAL EXAM: Constitutional: Appearance: Normal appearance. He is overweight. HENT: Head: Normocephalic and atraumatic. Eyes: Extraocular Movements: Extraocular movements intact. Conjunctiva/sclera: Conjunctivae normal. Pupils: Pupils are equal, round, and reactive to light. Cardiovascular: Rate and Rhythm: Normal rate and regular rhythm. Pulses: Normal pulses and intact distal pulses. Heart sounds: Normal heart sounds. Pulmonary: Effort: Pulmonary effort is normal. Breath sounds: Normal breath sounds. No wheezing, rhonchi or rales. Abdominal: General: Abdomen is protuberant. Palpations: Abdomen is soft. Tenderness: There is no abdominal tenderness. Musculoskeletal: Comments: +1 pitting edema in bilateral lower extremities Skin: General: Skin is warm and dry. . Comments: Stage III ulcer on both gluteal folds, appears grossly uninfected; no surrounding erythema, pus or edema : no crepitus, minimal erythema, no tenderness to palpation of scrotum Neurological: Mental Status: He is alert and oriented to person, place, and time. Mental status is at baseline. Psychiatric: Behavior: Behavior is cooperative. LABORATORY VALUES: reviewed RADIOGRAPHIC STUDIES: reviewed Active Problems: Macular degeneration (POA: Yes) BMI 35-39 ISOLATED (SEE ACTUAL BMI) (POA: Yes) Rheumatoid arthritis involving multiple sites with positive rheumatoid factor (HCC) (POA: Yes) HTN, goal below 130/80 (POA: Yes) Fuchs' corneal dystrophy (POA: Yes) Prediabetes (POA: Yes) Dyslipidemia, goal LDL below 160 (POA: Yes) Prostate cancer (HCC) (POA: Yes) Heart failure (HCC) (POA: Yes) Chronic kidney disease, stage 3a (HCC) (POA: Yes) S/P angioplasty with stent (POA: Yes) Hyponatremia (POA: Unknown) Septic shock (HCC) (POA: Unknown) POA = Present On Admission SYSTEM BASED PLAN: NEUROLOGICAL: No active concerns PRN tylenol for analgesia, PRN oxy 2.5/5 PULMONARY / RESPIRATORY: No active concerns Satting well on room air Respiratory driven protocol Incentive spirometer and flutter valve CARDIOVASCULAR: History of PVCs Septic shock 2/2 UTI CAD and [place] s/p AFSANEH to LAD in 08/2023 Chronic HFrEF (EF 45%) Nonischemic cardiomyopathy History of hypertension Dyslipidemia Initial elevated troponin - down trending today - discontinue trend ECG without any evidence of ischemia; no TWI or ST segment changes Last TTE 11/2023 with EF 45%, G1DD, no valvular abnormalities Will order new TTE On levophed, maintain MAP >65 for end organ perfusion - wean as able Continue MARKETING AND PUBLIC RELATIONS MANAGER aspirin & plavix Continue MARKETING AND PUBLIC RELATIONS MANAGER crestor Holding MARKETING AND PUBLIC RELATIONS MANAGER furosemide 20 mg BID, metoprolol XL 25 mg BID, losartan BNP - 7812 GASTROINTESTINAL / HEPATOBILIARY: Bowel Regimen: senna, colace Last bowel movement at outside hospital Stress Ulcer Prophylaxis: not indicated at this time.. 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 History of UTI Known puboprostatic fistula Urology consulted, replaced ingram here at [facility] overnight due to malpositioning read on CT scan Reported pus per son 2 days prior to admission during ingram exchange No surgical intervention at this time Consider definitive urinary diversion for puboprostatic fistula down the line Do not recommend drainage or biopsy at this time Prelim cultures at OSH 05/31 growing strep dysgalactiae Received zosyn and vanco at OSH Antibiotic regimen here: linezolid and zosyn Antibiotic Regimen: Linezolid & zosyn for broad spectrum coverage and toxin effect U/A here unremarkable Blood culture pending ENDOCRINE: Prediabetes A1c 6% in 11/2023 Blood Glucose Monitoring (BGM) Goal: 140-180. Medium dose SSI, accuchecks q6 hours while NPO Hypoglycemia protocol in place HEMATOLOGIC/ONCOLOGIC: History of metastatic prostate cancer s/p palliative radiation and lupron Chronic anemia Continue MARKETING AND PUBLIC RELATIONS MANAGER folic acid VTE/DVT Prophylaxis: chemoprophylaxis with pneumatic compression devices MUSCULOSKELETAL/ P.T / O.T. 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 Stage III ulcer on bilateral gluteal folds Rheumatoid arthritis Takes methotrexate every Thursday - will hold for now in the setting of septic shock Wound care consulted PT/OT once appropriate Lines/Tubes/Devices LINES ALL Duration Peripheral Line Lower;Posterior;Right Arm 20 Gauge <1 day Peripheral Line Right;Upper 20 Gauge <1 day Urethral Catheter Coude <1 day GLOBAL ISSUES: Analgesia: protocol with control Sedation: 100% holiday per protocol Delirium/Confusion Assessment Method for ICU (CAM-ICU): CAM-ICU negative HOB Elevation: greater than 30 degress Nutrition: NPO except medications DVT Prophylaxis: chemoprophylaxis with pneumatic compression devices Stress Ulcer Prophylaxis: not indicated Glycemic Control: controlled - not in protocol Central Line Necessity Reviewed: N/A Ingram: reviewed and needed Disposition: keep in ICU Patient's decisional capacity: has capacity to make decisions Communication with Patient/Family: Patient and son updated at bedside. All questions answered to satisfaction. Goals of Care: stabilize hemodynamic status and decrease pain and discomfort Patient examined and discussed with Dr. Ramirez. Angle Albarado MD [facility] General Surgery PGY-4 Cosigned by Yaniv Ramirez MD at 06/02/2024 2:39 PM EDT Associated attestation - Yaniv Ramirez MD - 06/02/2024 2:39 PM EDT I saw and evaluated the patient today. I have reviewed the resident/fellow physician note and agree. Neurological: Pain/Sedation - Tylenol ATC - Oxy PRN Respiratory: Hypoxia - Wean oxygen as tolerated - Encourage IS Cardiovascular: Shock, likely distibutive - Wean Levophed as toelrated - TTE ordered Tachycardia with PVCs - Received one dose IV lopressor at OSH - Holding MARKETING AND PUBLIC RELATIONS MANAGER lopressors - Can add lopressor PRN for tachycardia > 120 Hx of CHF, systolic dysfunction - Holding MARKETING AND PUBLIC RELATIONS MANAGER lasix Hx of CAD s/p AFSANEH - Holding MARKETING AND PUBLIC RELATIONS MANAGER Plavix for this AM Hx of DLD - Resume MARKETING AND PUBLIC RELATIONS MANAGER statin Gastrointestinal: Nutrition - Keep NPO Infectious Disease: Concern for necrotizing infections or osteomyelitis - Urology consulted - Pt has known fistula due to his cancer which is likely the findings on CT - No surgical intervention - No need for IR drain at this time Renal - Metabolic: Hx of prostate cancer - Continue Hx of CKD stage 3a - Keep ingram in place Hyponatremia - Resume MARKETING AND PUBLIC RELATIONS MANAGER Urea Endocrine: Hx of rheumatoid arthritis - Holding MARKETING AND PUBLIC RELATIONS MANAGER methotrexate Hematology: Metastatic prostate cancer - Urology following GI ppx: N/A DVT ppx: Heparin Lines: PIV, ingram Diet: NPO Bowel regimen: N/A and LBM: N/A Pain regimen: Tylenol, Dilaudid Level of care: ICU Disposition: To remain in the ICU I have provided critical care diagnostic services for circulatory failure, overwhelming infection and therapeutic services with volume resuscitation, frequent vasoactive agent adjustments, frequent evaluation and titration of therapies, application of advanced monitoring technologies for this patient on the date referenced above. Time devoted to patient care services described in this note equal:40 minutes total critical care time exclusive of time spent performing procedures or time spent by another provider or resident. Upon my evaluation, this patient had a high probability of imminent or life- threatening deterioration due to shock, which required my direct attention, intervention, and personal management. 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 Patient is not in acute distress at this time. Past Medical History: Diagnosis Date Arthritis, rheumatoid [...] performed by Teddy Rizvi MD at ENDOSCOPY [facility] COLONOSCOPY, DIAGNOSTIC (RECTUM) 01/21/2019 diverticulosis, repeat 5 yrs/COLONOSCOPY FLEXIBLE PROXIMAL DIAGNOSTIC performed by Teddy Rizvi MD at ENDOSCOPY [facility] REMOVE TONSILS & ADENOIDS, AGE [...] Needs: Not on file Social Connections: Unknown (06/06/2024) Social Connections How often do you feel lonely or isolated from those around you? (Adult - for ages 18 years and over): Not on file Housing Stability: Not on file Family History Problem Relation Name Age of Onset Arthritis Mother RHEUMATOID Gastro-intestinal disorder Mother PUD Gastro-intestinal disorder Father PUD Diabetes Uncle (Unspecified) Arthritis Sister osteo Arthritis Sister osteo Review of patient's allergies indicates: Allergen Reactions Fosamax [Alendronate Sodium] Muscle pain Heartburn, constipation, joint pain Misoprostol Diarrhea Niaspan [Niacin Er (Antihyperlipidemic)] Gas, hot flashes Pollen Watery eyes, sneezing Pravastatin Upset stomach, all .Statins Simvastatin Upset stomach Brent Inhibitors Cough Current Facility-Administered Medications Medication Dose Route Frequency Provider Last Rate Last Admin CYANOCOBALAMIN (vitamin B-12) tab 1,000 mcg 1,000 mcg Oral Daily(AM) Frank Fleming MD 1,000 mcg at 06/06/24 0929 Furosemide (Lasix) tab 20 mg 20 mg Oral BID (0900,1600) Frank Fleming MD 20 mg at 06/06/24 0933 Vancomycin (Vancocin) 1,750 mg in NSS 500 mL ivpb 1,750 mg IV Piggyback Q24H Frank Fleming MD263.75 mL/hr at 06/06/24 1244 1,750 mg at 06/06/24 1244 metoprolol succinate XL (toPROL XL) tab 25 mg 25 mg Oral BID(AM/PM) Frank Fleming MD 25 mg at 06/06/24 0829 Piperacillin-Tazobactam (Zosyn) 4.5 g in 100 mL NSS ivpb (FOUR hour infusion) 4.5 g IV Piggyback Q8H Now Frank Fleming MD 26.25 mL/hr at 06/06/24 1228 1.125 g/hr at 06/06/24 1228 Enoxaparin (Lovenox) inj 40 mg 40 mg Subcutaneous Daily(AM) Kieran Mendiola MD 40 mg at 06/06/24 0829 insulin aspart (NovoLOG) inj Subcutaneous With Meals and HS Angle Albarado MD 152 Units at 06/06/24 0830 aspirin enteric coated tab 81 mg 81 mg Oral Daily(AM) Anupama, Fatuma, DO 81 mg at 06/06/24 0829 clopidogrel (pLAVix) tab 75 mg 75 mg Oral Daily(AM) Anupama, Fatuma, DO 75 mg at 06/06/24 0931 dextrose 50% inj 25 mL 25 mL IV Push PRN Altman, Fatuma, DO dextrose 50% inj 50 mL 50 mL IV Push PRN Altman, Fatuma, DO Docusate Sodium (Colace) cap 100 mg 100 mg Oral BID(AM/PM) Raina Villar, DO 100 mg at 06/04/24 2210 glucagon (Glucagen) inj 1 mg 1 mg Intramuscular PRN Anupama, Fatuma, DO Glucose (Glutose 15) 40 % gel 15 g of glucose 15 g of glucose Oral PRN Apryl Altmanvani, DO Glucose (Glutose 15) 40 % gel 30 g of glucose 30 g of glucose Oral PRN Apryl Altmanvani, DO glucose chew tab 16 g 16 g Oral PRN Apryl Altmanvani, DO melatonin tab 3 mg 3 mg Oral HS Raina Villar, DO 3 mg at 06/05/243 oxyCODONE (Oxy IR) tab 5 mg 5 mg Oral Q4H PRN Angle Albarado MD oxyCODONE (Roxicodone) oral syrup 2.5 mg 2.5 mg Oral Q4H PRN Angle Albarado MD rosuvastatin (Crestor) tab 5 mg 5 mg Oral Daily(AM) Jyoti Villarsa, DO 5 mg at 06/06/24 0929 senna (Senokot) 1 Tablet 1 Tablet Oral Daily(AM) Raina Villar, DO 1 Tablet at 06/02/24 1114 Acetaminophen (Tylenol) tab 650 mg 650 mg Oral Q6H PRN Fatuma Altman, DO albuterol (VENTOLIN HFA/PROVENTIL HFA) inhaler 1 Puff Inhalation Q6H PRN Fatuma Altman, DO folic acid tab 1 mg 1 mg Oral Daily(AM) Fatuma Altman, DO 1 mg at 06/06/24 0829 sodium chloride 0.9 % flush peripheral bernard 3 mL 3 mL IV Push Q8H Fatuma Altman, DO 3 mL at 06/06/24 0600 REVIEW OF SYSTEMS: Denies fever, chills, headaches, passing out, trouble swallowing food, cough, sore throat, chest pain, palpitation, shortness of breath, abdominal pain, nausea, vomiting. OBJECTIVE: Physical Exam Vital Signs : Blood pressure 124/66, pulse 77, temperature 36 °C (96.8 °F), temperature source Tympanic, resp. rate 19, height 1.88 m (6' 2"), weight (!) 138.5 kg (305 lb 5.4 oz), SpO2 100%. General : Alert & oriented. HEENT : Oral mucosa moist, PERRLA, EOM intact. CVS : RR Chest : Normal respiratory effort. Abdomen : Soft, non tender, non distended. LABS: CBC Results: PT INR Results: BUN Results: Lab Results Component Value Date/Time BUN - [facility] 10 06/06/2024 06:22 AM BUN - [facility] 13 06/05/2024 07:32 AM BUN - [facility] 17 06/04/2024 05:37 AM BUN - [facility] 20 04/25/2019 09:53 AM BUN - [facility] 13 10/19/2018 09:42 AM BUN - [facility] 20 01/01/2018 09:29 AM Creatinine Results: Lab Results Component Value Date/Time CREATININE - [facility] 1.0 06/06/2024 06:22 AM CREATININE - [facility] 1.0 06/05/2024 07:32 AM CREATININE - [facility] 1.1 06/04/2024 05:37 AM CREATININE - [facility] 0.88 05/18/2024 12:00 AM CREATININE - [facility] 1.05 02/27/2021 12:00 AM CREATININE - [facility] 1.07 10/12/2020 12:00 AM CREATININE - [facility] 1.1 07/11/2019 01:37 PM CREATININE - [facility] 1.2 04/25/2019 09:53 AM CREATININE - [facility] 1.0 01/10/2019 09:55 AM CREATININE, RANDOM URINE - [facility] 120 04/10/2022 09:18 AM CREATININE, RANDOM URINE - [facility] 250 12/03/2006 09:18 AM Potassium Results: Lab Results Component Value Date/Time POTASSIUM - [facility] 3.9 06/06/2024 06:22 AM POTASSIUM - [facility] 4.1 06/05/2024 07:32 AM POTASSIUM - [facility] 3.8 06/04/2024 05:37 AM POTASSIUM - [facility] 4.0 05/18/2024 12:00 AM POTASSIUM - [facility] 4.3 10/12/2020 12:00 AM POTASSIUM - [facility] 4.3 07/09/2020 12:00 AM POTASSIUM - [facility] 4.7 04/25/2019 09:53 AM POTASSIUM - [facility] 4.7 10/19/2018 09:42 AM POTASSIUM - [facility] 4.5 01/01/2018 09:29 AM INFORMED CONSENT: Yes PRE-SEDATION ASSESSMENT: Difficulty with sedation / anesthesia: No Sleep apnea: No History of snoring: Yes History of difficult intubation: No Decreased ROM neck flexion/extension: No Tracheal deviation: No Decreased ability to open mouth / TMJ: No Loose teeth / dentures / partial: No Congenital deformities / abnormalities: No Dysphagia: No Mallampati Classification: II - soft palate, uvula, fauces visible The patient was identified and the procedure verified: Yes The patient was reevaluated immediately prior to the sedation: 06/06/2024 2:20 PM IMPRESSION/PLAN: 77 y/o male with 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 Plan: - Will proceed with para-symphyseal abscess aspiration with IR today. Cheryl Barcenas MD Cosigned by Esther Long MD at 06/06/2024 2:22 PM EST Associated attestation - Esther Long MD - 06/06/2024 2:22 PM EST I saw and evaluated the patient today. I have reviewed the resident/fellow physician note and agree. * Mendel Kidd, DO - 06/01/2024 10:43 PM EDT HISTORY & PHYSICAL EXAMINATION - Critical Care Medicine [address] [id number] Name: Markus Wharton Location: [facility] [id number] Date: 06/02/2024 Date of admission: 06/01/2024 PRESENTING PROBLEM/CHIEF COMPLAINT: Generalized weakness and confusion HISTORY OF PRESENT ILLNESS: Patient is a 79 year old male with a medical history significant for CAD with [place] s/p AFSANEH to LAD in 08/2023 on aspirin and plavix, chronic HFrEF (EF 45%) on GDMT, NICM, hypertension, history of metastatic prostate cancer s/p palliative radiation and lupron with chronic indwelling ingram catheter (exchanged here by urology on 06/02), BPH, history of UTI, rheumatoid arthritis, prediabetes (A1c 6%), CKD IIIA, dyslipidemia who was experiencing some confusion and generalized weakness prior to admission. His outpatient labs on 05/30 were notable for hyponatremia to 120. At that point, patient's health services administrator had recommended he to go to the ED to seek medical attention. In the ED, he was found to be tachycardic, hypotensive and febrile to 101F. A CTA A/P was done which showed "findings consistent with an extensive infectious process involving the prostate, seminal vesicles, bladder, symphysis pubis and adjacent soft tissues with multiple locules of extraluminal gas and a 6.3 x 1.5 cm parasymphyseal collection consistent with an abscess. Associated erosion of themedial bilateral pubic bones with widening of the symphysis consistent with osteomyelitis. A gas-forming infectious process can not be excluded." He received Vancomycin & zosyn, 1L crystalloids and 1 dose of albumin. Additionally, he did go into new onset Afib with RVR HR into the 140's but it a borted with 1 dose of metoprolol and hasn't recurred since. Troponin was also noted to be elevated to 400's. Decision was made to transfer to [facility] for possible IR drainage/bone biopsy. Urology was consulted on admission, there is low suspicion for necrotizing fasciitis. He has a pubourethral fistula which would be exacerbated by scoping. CT scan did comment on malpositioned ingram catheter so ingram was exchanged by urology here at [facility] on 06/02. Subjective PAST MEDICAL HISTORY: Past Medical History: Diagnosis Date Arthritis, rheumatoid (HCC) Benign neoplasm of colon 05/10/07 adenomatous repeat colonoscopy in 5 years Degeneration of lumbosacral intervertebral disc Elevated blood pressure, situational Fuchs' corneal dystrophy 10/19/2018 Impaired fasting glucose Macular degeneration Morbid (severe) obesity due to excess calories (HCC) 08/19/2017 PAST SURGICAL HISTORY: Past Surgical History: Procedure Laterality Date COLONOSCOPY W/ LESION REMOVAL, SNARE 05/10/07 adenomatous repeat in 5 years COLONOSCOPY, DIAGNOSTIC (RECTUM) 05/10/2013 COLONOSCOPY FLEXIBLE PROXIMAL DIAGNOSTIC performed by Teddy Rizvi MD at ENDOSCOPY [facility] COLONOSCOPY, DIAGNOSTIC (RECTUM) 01/21/2019 diverticulosis, repeat 5 yrs/COLONOSCOPY FLEXIBLE PROXIMAL DIAGNOSTIC performed by Teddy Rizvi MD at ENDOSCOPY [facility] REMOVE TONSILS & ADENOIDS, AGE 12+ 1979 Tonsillectomy/Adenoids,12+ Y/O FAMILY HISTORY: Family History Problem Relation Name Age of Onset Arthritis Mother RHEUMATOID Gastro-intestinal disorder Mother PUD Gastro-intestinal disorder Father PUD Diabetes Uncle (Unspecified) Arthritis Sister osteo Arthritis Sister osteo SOCIAL HISTORY: Social History Tobacco Use Smoking status: Former Current packs/day: 0.00 Average packs/day: 1 pack/day for 35.0 years (35.0 ttl pk-yrs) Types: Cigarettes Start date: 08/03/1962 Quit date: 08/03/1997 Years since quittin.8 Passive exposure: Past Smokeless tobacco: Never Tobacco comments: occasional cigar Vaping Use Vaping status: Never Used Substance Use Topics Alcohol use: Not Currently Drug use: No PRIOR TO ADMISSION MEDS: Current Outpatient Medications Medication Instructions Acetaminophen (TYLENOL) 650 mg Albuterol Sulfate HFA 108 (90 Base) MCG/ACT Inhalation Aerosol Solution 1 Puff, Inhalation, Q6H PRN ASPIR-81 81 MG PO TBEC 1 TABLET DAILY clopidogrel (PLAVIX) 75 mg, Oral, Daily(AM) Folic Acid 1 MG Oral Tablet TAKE 1 TABLET BY MOUTH EVERY DAY IN THE MORNING Furosemide (LASIX) 20 mg, Oral, BID (.AM/PM) Losartan Potassium 25 MG Oral Tablet (Cozaar) One half tablet by mouth daily Magnesium Oxide -Mg Supplement (MAG-OX) 400 mg, Oral, BID (.AM/PM) melatonin 6 mg, Oral, HS Methotrexate Sodium 2.5 MG Oral Tablet TAKE 5 TABLETS BY MOUTH ONCE WEEKLY metoprolol succinate XL (TOPROL XL) 25 mg, Oral, BID (.AM/PM) OneTouch Verio In Vitro Strip (Glucose Blood) Type 2 diabetes, check blood sugars 2 times a day, kostas and pm. Rosuvastatin Calcium 5 MG Oral Tablet (Crestor) TAKE 1 TABLET BY MOUTH EVERY DAY IN THE MORNING tamsulosin (FLOMAX) 0.4 mg, Oral, Daily(AM), Every morning. Urea (URE-NA) 15 g, Oral, BID (.AM/PM) ALLERGIES: Fosamax [alendronate sodium], Misoprostol, Niaspan [niacin er (antihyperlipidemic)], Pollen, Pravastatin, Simvastatin, and Brent inhibitors ROS: Review of Systems Constitutional: Positive for fever. Negative for chills. Eyes: Negative for blurred vision and visual disturbance. Cardiovascular: Positive for leg swelling. Negative for chest pain and syncope. Respiratory: Negative for cough and shortness of breath. Gastrointestinal: Positive for abdominal pain and constipation. Negative for diarrhea, nausea and vomiting. Neurological: Negative for dizziness, headaches, light-headedness and seizures. Psychiatric/Behavioral: Negative for altered mental status. Objective CONSTITUTIONAL DATA / OBJECTIVE: Vital Signs (Most Recent): Pulse: 93 (06/02/24) BP: 89/57 (06/02/24) Resp: 25 (06/02/24) Temp: 37.7 °C (99.9 °F) (06/02/24) SpO2: 97 % (06/02/24) Vital Signs (Last 24 Hours): Pulse Av.3 Min: 93 Max: 103 Most Recent Systolic BP Av.7 mmHg Min: 89 mmHg Max: 90 mmHg Resp Av.3 Min: 15 Max: 27 Most Recent Temperature Av.7 C Min: 37.72 C Max: 37.72 C SpO2 Av.3 % Min: 96 % Max: 97 % Physical Examination: Physical Exam Constitutional: Appearance: Normal appearance. He is overweight. HENT: Head: Normocephalic and atraumatic. Eyes: Extraocular Movements: Extraocular movements intact. Conjunctiva/sclera: Conjunctivae normal. Pupils: Pupils are equal, round, and reactive to light. Cardiovascular: Rate and Rhythm: Normal rate and regular rhythm. Extrasystoles are present. Pulses: Normal pulses and intact distal pulses. Heart sounds: Normal heart sounds. Pulmonary: Effort: Pulmonary effort is normal. Breath sounds: Normal breath sounds. No wheezing, rhonchi or rales. Abdominal: General: Abdomen is protuberant. Bowel sounds are normal. Palpations: Abdomen is soft. Tenderness: There is no abdominal tenderness. Musculoskeletal: Comments: +1 pitting edema in bilateral lower extremities Skin: General: Skin is warm and dry. Capillary Refill: Capillary refill takes 2 to 3 seconds. Comments: Stage III ulcer on both gluteal folds, appears grossly uninfected; no surrounding erythema, pus or edema Neurological: Mental Status: He is alert and oriented to person, place, and time. Mental status is at baseline. GCS: GCS eye subscore is 4. GCS verbal subscore is 5. GCS motor subscore is 6. Sensory: Sensation is intact. Psychiatric: Behavior: Behavior is cooperative. Laboratory Values: reviewed. Cultures: reviewed. Radiographic Studies: reviewed. CT Abdomen & Pelvis with IV contrast only on 06/01: "findings consistent with an extensive infectious process involving the prostate, seminal vesicles,bladder, symphysis pubis and adjacent soft tissues with multiple locules of extraluminal gas and a 6.3 x 1.5 cm parasymphyseal collection consistent with an abscess. Associated erosion of the medial b ilateral pubic bones with widening of the symphysis consistent with osteomyelitis. A gas-forming infectious process can not be excluded." Assessment & Plan CRITICAL CARE SYSTEM REVIEW & ASSESSMENT/PLAN: Active Problems: Macular degeneration (POA: Yes) BMI 35-39 ISOLATED (SEE ACTUAL BMI) (POA: Yes) Overview: Per Obesity Protocol, #19 Rheumatoid arthritis involving multiple sites with positive rheumatoid factor (HCC) (POA: Yes) HTN, goal below 130/80 (POA: Yes) Fuchs' corneal dystrophy (POA: Yes) Prediabetes (POA: Yes) Overview: Per Prediabetes protocol #1 Dyslipidemia, goal LDL below 160 (POA: Yes) Prostate cancer (HCC) (POA: Yes) Heart failure (HCC) (POA: Yes) Chronic kidney disease, stage 3a (HCC) (POA: Yes) Overview: Per CKD protocol S/P angioplasty with stent (POA: Yes) POA = Present On Admission NEUROLOGICAL: No active concerns PRN tylenol for analgesia, add others PRN PULMONARY / RESPIRATORY: No active concerns Satting well on room air Respiratory driven protocol Incentive spirometer and flutter valve CARDIOVASCULAR: Suspect type II NSTEMI in setting of demand ischemia from below, less liekly ischemic process New onset Afib RVR, resolved (at OSH) Septic shock 2/2 UTI CAD and [place] s/p AFSANEH to LAD in 08/2023 Chronic HFrEF (EF 45%) Nonischemic cardiomyopathy History of hypertension Dyslipidemia Initial troponin of 421, now 560 Trend q6 hour until peak ECG without any evidence of ischemia; no TWI or ST segment changes Bedside POCUS with collapsible IVC, will bolus another liter of fluids Last TTE 11/2023 with EF 45%, G1DD, no valvular abnormalities On levophed, maintain MAP >65 for end organ perfusion Continue aspirin & plavix Holding GDMT in setting of shock GASTROINTESTINAL / HEPATOBILIARY: Bowel Regimen: Reassess in the next 24 hours Last bowel movement at outside hospital Stress Ulcer Prophylaxis: not indicated at this time.. Diet / Nutrition: NPO except meds for now RENAL / METABOLIC / FLUIDS: Hyponatremia FREDY on CKD IIIA BPH with chronic indwelling ingram catheter (exchanged at [facility] on 06/01) Sodium 123 on admission with serum osom of 259 and urine osom of 375 at [facility], now 124 Continue to trend BMP q6 to avoid overcorrection Repeat urine studies here Most Recent: Serum creatinine: 1.6 mg/dL (H) 06/02/24 0006 Estimated creatinine clearance: 53.1 mL/min (A) INFECTIOUS DISEASES: Urinary tract infection Concern for possible miriam's gangrene (less likely) Concern for pubic osteomyelitis from radiation therapy History of UTI IR biopsy and cultures ordered for AM Urology consulted, replaced ingram here at [facility] overnight due to malpositioning read on CT scan Reported pus per son 2 days prior to admission during ingram exchange Antibiotic Regimen: Linezolid & zosyn for broad spectrum coverage and toxin effect LRINEC score 7 equates to high suspicion for necrotizing fasciitis however given overall clinical picture, low suspicion as stated in HPI History of pansensitive klebsiella pneumonia and per [facility] records also strep dysgalactiae Blood and urine cultures pending Did receive a dose of vanc & zosyn at OSH UA was positive for leuk esterase and negative for nitrites Prelim cultures from 05/31/2024 positive for strep dysgalactiae ENDOCRINE: Prediabetes A1c 6% in 11/2023 Blood Glucose Monitoring (BGM) Goal: 140-180. Medium dose SSI, accuchecks q6 hours while NPO Hypoglycemia protocol in place HEMATOLOGIC/ONCOLOGIC: History of metastatic prostate cancer s/p palliative radiation and lupron Chronic anemia Continue MARKETING AND PUBLIC RELATIONS MANAGER folic acid VTE/DVT Prophylaxis: chemoprophylaxis with pneumatic compression devices MUSCULOSKELETAL/ P.T / O.T. 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 Stage III ulcer on bilateral gluteal folds Rheumatoid arthritis IR biopsy and cultures ordered for AM Takes methotrexate every Thursday, ordered Wound care consulted PT/OT once appropriate LINES / DRAINS / TUBES: LINES ALL Duration Peripheral Line Lower;Posterior;Right Arm 20 Gauge <1 day Peripheral Line Right;Upper 20 Gauge <1 day Urethral Catheter <1 day List of services consulted/following: ADULT PHYSICAL THERAPY CONSULT IP ADULT OCCUPATIONAL THERAPY CONSULT IP CARE MANAGEMENT CONSULT IP UROLOGY CONSULT IP GLOBAL ISSUES: Code Status: Full Code Central Line Necessity Reviewed: N/A Arterial Line Necessity Reviewed: N/A Ingram: reviewed and needed, exchanged by urology on 06/02 Disposition: keep in ICU Patient's decisional capacity: has capacity to make decisions Communication with Patient/Family: Discussed patient's clinical course and plan going forward with sonKenneth, who was at bedside. Patient was discussed with attending physician, DO Fatuma Pimentel DO Critical Care Fellow Attending Attestation: I have discussed the patient's management with the medical trainee and agree with the note. Please refer to the documented findings and plan of care. The patient's bedside service today consisted of an evaluation. I was present and confirmed the findings of the history and exam. Markus Wharton is a 79 year old male with past medical history including rheumatoid arthritis on methotrexate, coronary artery disease, heart failure with reduced ejection fraction, metastatic prostate cancer with chronic indwelling Ingram who has been experiencing some confusion and generalized weakness and after outpatient labs noted sodium of 120 he was recommended to present to the ED. on evaluation concern for sepsis. Imaging was concerning for possible abscess/soft tissue infection and possible osteomyelitis of the pubic bones. Continue broad-spectrum antibiotics with pip-tazo and linezolid. Urology consulted and Ingram replaced. IR consulted for possible abscess drainage versus bone biopsy due to concern for osteomyelitis. On norepinephrine to maintain a map of 65. I have provided critical care diagnostic services for circulatory failure and therapeutic services with volume resuscitation, frequent vasoactive agent adjustments for this patient on the date referenced above. Time devoted to patient care services described in this note equal: 37 minutes total critical care time exclusive of time spent performing procedures or time spent by another provider or resident. documented in this encounter Procedure Notes * Trudi Duron RN - 06/08/2024 3:46 PM ESTAssociated Order(s): PICC insertion PROCEDURE NOTE [facility] [address] Name: Markus Wharton Location: [facility] H672/A Date: 06/08/2024 Time: 3:46 PM PICC insertion General Information and Staff: Performed by: Trudi Duron RN Assisted by: Clemencia Dee RN Procedure Date/Time: 06/08/2024 2:50 PM Patient Location: Med/Surg Indication: assisted vascular access Patient identity confirmed: Verbally with patient and arm band Verbal confirmation: Name, date of and MRN Verbal consent obtained: Yes Written consent obtained: Yes Written consent obtained as part of Anesthesia consent: No Consent given by: Patient Understanding of procedure being performed: Yes Understanding of procedure matches verbalized consent: Yes Procedure consent matches procedure scheduled: Yes Allergies reviewed: Yes Site marked: yes Verify correct position: Yes Radiology Studies available/reviewed: n/a Relevant Lab Results available/reviewed: yes Required items available: yes Other healthcare professional(s) verbalize(s) agreement with time out: Yes Name(s): Clemencia Dee RN Time out: Immediately prior to the procedure a time out was completed Anticoagulation therapy: Yes Medication: Enoxaparin (Lovenox) Procedure Detail: Sterility Preparation: mask worn, sterile gloves worn, cap worn, sterile sheet used, sterile gown worn and full body drape Provider Hand Hygiene: alcohol-based hand rub Medical Reason for Not Performing Maximal Sterile Barrier Technique: No Placement conditions: Elective Patient Position: Supine Prep: Chlorhexidine Local Anesthetic Used: Yes Catheter Type: Power PICC PICC Laterality: Right and Upper PICC Site: Arm PICC Vessel: Basilic Catheter size: 3F Catheter Total Length (cm): 43 Catheter Internal Length (cm): 41 Catheter External Length (cm): 2 Lot Number: [id number] Number of Lumens: Single lumen Oximetric Catheter?: No Number of Needle Passes: 1 Placement: target vein identified, needle advanced into vein and blood aspirated and guidewire advanced into vein Radiologic Support with Sterile Technique: ultrasound guidance used Sterile gel and probe cover used for ultrasound?: Yes Intravenous Verification: verified by ultrasound and venous blood return Outcomes/Complications: patient tolerated procedure well with no complications Estimated blood loss (mL): Minimal PA Catheter Placed?: No Post Insertion: Post Insertion Details: all ports aspirated, all ports flushed easily, guidewire was removed, examined and appears intact and dressing was applied Site cleansed: Chlorhexidine Line secured with: Adhesive Securement Device and Tissue Adhesive Dressing applied: Gel Chlorhexidine Gluconate and Occlusive Tip Confirmation: Tip Confirmation System Tip Location: SVC and Line Ok to use Attestation: Attestation: I personally performed the procedure myself Additional Comments: Prior to insertion both guide wire and PICC Line wire inspected and found to be intact. Upon completion of procedure again both wires inspected and found to be intact (Guide wiremeasuring 50.25cm in total and completely intact). All witnessed by myself and my PICC Assist. * Zuly Roberson MD - 06/02/2024 5:09 PM EDTAssociated Order(s): Arterial Line Post-Procedure Diagnose(s): Septic shock (HCC) PROCEDURE NOTE [address] [address] Name: Markus Wharton Location: [facility] A455/A Date: 06/02/2024 Time: 5:09 PM Arterial Line General Information and Staff: Performed by: Zuly Roberson MD Procedure Date/Time: 06/02/2024 5:09 PM Patient Location: ICU Indication: continuous blood pressure monitoring Ultrasound: guidance used and surface landmarks ID'd Patient identity confirmed: Verbally with patient Verbal confirmation: MRN and name Verbal consent obtained: Yes Consent given by: Patient Understanding of procedure being performed: Yes Time out: Immediately prior to the procedure a time out was completed Procedure Detail: Sterility Preparation: provider hygiene performed, mask worn, sterile gloves worn, cap worn, sterile sheet used and gown worn Local Anesthetic Used: Yes Catheter Size: 24 gauge Catheter Length: 5 cm Catheter Type: Angiocath Laterality: Left Other Site: Ulna artery Seldinger Technique?: Yes Post Insertion: guidewire was removed, examined and appears intact Line Secured: Suture Attestation: Attestation: I personally performed the procedure myself Name of doctor present for entire procedure: Yaniv Ramirez MD Cosigned by Yaniv Ramirez MD at 06/02/2024 5:39 PM EDT Associated attestation - Yaniv Ramirez MD - 06/02/2024 5:39 PM EDT A procedure was performed. I was present for jeffries and critical portions of procedure. I agree with the resident/fellow physician note. documented in this encounter Consult Notes * Joseph Wang RN - 06/06/2024 8:17 AM ESTAssociated Order(s): BLOOD MANAGEMENT CONSULT IP CONSULT - Patient Blood Management [address] [address] Name: Markus Wharton Location: [facility] H672/A Date: 06/06/2024 Time: 8:17 AM REQUESTING SERVICE: [facility] REASON FOR CONSULT: new evaluation inpatient, anemia Recent hemorrhage: no History of prior anemia: yes Recent surgery: no Anemia Evaluation: Latest Reference Range & Units 03/21/24 08:43 05/18/24 00:00 05/31/24 09:03 06/01/24 23:23 06/02/24 05:42 06/03/24 05:30 06/04/24 05:37 06/04/24 13:10 06/05/24 07:32 06/06/24 06:22 WBC 4.00 - 10.80 K/uL 14.62 (H) 8.43 36.61 (H) 32.30 (H) 16.23 (H) 7.71 8.58 6.83 7.42 RBC 4.50 - 5.25 M/uL 3.96 3.30 3.31 3.10 3.03 2.64 2.97 3.35 3.42 HGB 14.0 - 16.8 g/dL 11.1 (L) 8.4 ! (E) 8.5 (L) 8.7 (L) 8.2 (L) 7.8 (L) 6.8 (L) 7.9 (L) 8.9 (L) 8.6(L) HCT 40.0 - 48.4 % 35.9 (L) 27.4 (L) 27.7 (L) 26.1 (L) 25.4 (L) 23.0 (L) 26.1 (L) 29.7 (L) 30.6 (L) MCV 82.0 - 99.5 fL 90.7 83.0 83.7 84.2 83.8 87.1 87.9 88.7 89.5 MCH 27.0 - 34.0 pg 28.0 25.8 26.3 26.5 25.7 25.8 26.6 26.6 25.1 MCHC 32.0 - 36.0 g/dL 30.9 31.0 31.4 31.4 30.7 29.6 30.3 30.0 28.1 RDW 11.5 - 15.5 % 15.5 17.0 17.9 17.8 17.8 17.4 17.2 17.2 17.4 PLT 140 - 400 K/uL 435 (H) 452 (H) 498 (H) 454 (H) 482 (H) 317 318 350 347 Current Patient Medications: Medications that may impair hemostasis: plavix,lovenox Medications that may impair iron absorption: none Patient Refused Blood Transfusion? (e.g. Pentecostalism): no Possible Contributing Factors: chronic inflammation and unclear Treatment Recommendations: If no active hemorrhage, consider PRBC transfusion only for severe anemia and use a 1 unit PRBC dose followed by a repeat clinical assessment. For reversal of anticoagulation therapy, use Reversal of Anticoagulation order set. Limit and coordinate blood draws to prevent iatrogenic anemia. Continue folate Add b12 1mg PO daily Do not recommend IV iron in setting of infection. However, patient had 3gm hgb drop as outpatient ?source? Can consider Venofer 300mg IVPB daily x 3 days once infection no longer a a concern if hgb dip thought to be ABLA. Follow-up Recommendations: Follow up with PCP for further assessment/management of anemia post discharge. Thank you for allowing Blood Management to participate in the care of this patient. * Janel Jean Baptiste RPh - 06/04/2024 2:39 PM EDTAssociated Order(s): PHARMACY CONSULT IP Pharmacy has reviewed patient's current medication orders and has timed medication administration times to fall between the hours of 0600 and 2200 where appropriate. Please contact pharmacy if there are any other needs. Janel Jean Baptiste RPh Ever Lockwood DPT - 06/04/2024 12:16 PM EDT GENERAL OOB-EVALUATION - Physical Therapy [address] [address] Name: Markus Wharton Location: [facility] A4/A Date: 06/04/2024 Time: 1:53 PM Markus Wharton is a/an 79 year old male. Patient Status: Inpatient Insurance: Payor: [employer] MEDICARE ADVANTAGE Plan: [employer] MEDICARE ADVANTAGE PPO Product Type: *No Product type* Patient Seen: at bedside, nursing cleared patient for therapy Patient Identified By: Name, ID Band and Date Subjective: Pt supine in bed upon arrival. Pt agreeable to OOB evaluation. Pain: Patient has complaints of pain. Pain located generalized. Diagnosis: osteomyelitis, sepsis (06/03/24922) Status of treatment: OOB evaluation completed (06/04/241215) Orders: PT evaluation and treatment;OOB (06/04/241215) Weight Bearing Status: Weight bearing as tolerated (06/04/241215) Precautions: A-line;Oxygen;Safety;Ingram;Falls (06/04/241215) Total Treatment Time--free text: 13 (06/04/241215) Past Medical History: Past Medical History: Diagnosis Date Arthritis, rheumatoid (HCC) Benign neoplasm of colon 05/10/07 adenomatous repeat colonoscopy in 5 years Degeneration of lumbosacral intervertebral disc Elevated blood pressure, situational Fuchs' corneal dystrophy 10/19/2018 Impaired fasting glucose Macular degeneration Morbid (severe) obesity due to excess calories (HCC) 08/19/2017 Past Surgical History: Past Surgical History: Procedure Laterality Date COLONOSCOPY W/ LESION REMOVAL, SNARE 05/10/07 adenomatous repeat in 5 years COLONOSCOPY, DIAGNOSTIC (RECTUM) 05/10/2013 COLONOSCOPY FLEXIBLE PROXIMAL DIAGNOSTIC performed by Tedyd Rizvi MD at ENDOSCOPY [facility] COLONOSCOPY, DIAGNOSTIC (RECTUM) 01/21/2019 diverticulosis, repeat 5 yrs/COLONOSCOPY FLEXIBLE PROXIMAL DIAGNOSTIC performed by Teddy Rizvi MD at ENDOSCOPY [facility] REMOVE TONSILS & ADENOIDS, AGE 12+ 1980 Tonsillectomy/Adenoids,12+ Y/O Social History/Disposition Lives with: (daughter, son-in-law, and grandkids) (06/03/24922) Assistance available: Yes (06/03/24922) Dwelling type: Single story home (06/03/24922) Entry steps: (2-3) (06/03/24922) Inside steps: None (06/03/24922) Bedroom location: 1st floor (06/03/24922) Bath location: 1st floor full bath (06/03/24922) Prior Level of Function Reported by: Patient (06/03/24922) Ambulation: Ambulatory with assistance and device;Non-ambulatory with manual wheelchair (06/03/24922) Ambulatory Device: (short distances and transfers with use of walker, long distances with use of wheelchair) (06/03/24922) Devices at home: Rolling walker;Wheelchair;Bedside commode (06/03/24922) Observations Consciousness: Alert (06/04/241215) Orientation: Oriented times 4 (06/04/241215) Psychosocial: Patient can communicate basic needs;Patient can converse in a social setting (06/04/241215) Other Findings: Yes (06/04/241215) Findings: Light touch sensation (06/04/241215) Light Touch Sensation Results: Intact;LLE;RLE (06/04/241215) Edema Results: Impaired;LLE;RLE (increased edema) (06/04/241215) Sitting Posture: Forward head;Rounded shoulders (06/04/241215) Standing Posture: Forward head;Rounded shoulders (06/04/241215) Range of Motion Range of Motion: WFL (06/04/241215) Strength Assessment Strength Assessment: Deficits noted (06/04/241215) WNL, except: LLE;RLE (06/04/241215) LLE: Hip;3-/5;Knee;3/5;Ankle;4/5 (06/03/24922) RLE: Hip;3-/5;Knee;3/5;Ankle;4/5 (06/03/24922) P.T. Bed Mobility Supine-Sit: Maximal Assistance (x2) (06/04/241215) Sit-Supine: Maximal Assistance (x2) (06/04/241215) Transfers Sit-Stand: Moderate Assistance (06/04/241215) Stand-Sit: Moderate Assistance (06/04/241215) Ambulation: Ambulation Distance Ambulated (feet): 0 (06/04/241215) Assistive Device: Rolling walker (06/04/241215) Noted gait deviations: unable to attemt ambulation due to weakness / difficulty with standing at this time. (06/04/241215) Ambulatory safety: Patient verbalizes insight of current deficits (06/04/241215) Balance: Balance Sit (Static): Fair (06/04/241215) Sit (Dynamic): Fair (06/04/241215) Stand (Static): Poor (06/04/241215) Stand (Dynamic): Not Tested (06/04/241215) AM PAC Score with Stairs: Mobility Assessment (AM-PAC) - Completed Daily - Assess your patient "How much help do you currently need..." Turning from your back to your side while in a flat bed without using bedrails?: A lot (06/04/241215) Moving from lying on your back to sitting on the side of a flat bed without using bedrails?: A lot (06/04/241215) Moving to and from a bed to a chair (including a wheelchair)?: A lot (06/04/241215) Standing up from a chair using your arms (e.g., wheelchair, or bedside chair)?: A lot (06/04/241215) To walk in hospital room?: A lot (06/04/241215) Climbing 3-5 steps with a railing?: Total (06/04/241215) AM-PAC Score With Stairs : 11 (06/04/241215) AM-PAC t-Scale Score: 33.86 (06/04/241215) HLM (Highest Level of Mobility) Goal: Level 4 move to chair/commode (06/04/241215) A portion of this AM-PAC assessment not scored based on functional assessment; rather clinical decision making utilized based on current findings and/or prior level of function. Please refer to future AM-PAC calculations of functional ability as they become available. Patient and or Family Goal(s): to get well and to return home Patient Education Review of Precautions: Safety;Fall (06/04/241215) Safety Awareness: Patient verbalizes insight of current deficits;Patient can communicate basic needs (06/04/241215) Preferred learning method: Combination (06/04/241215) Barriers to learning: Medical Status (06/04/241215) Method of Education: Verbalized to patient (06/04/241215) Topic of Education: Safety with mobility and Goals/plan of care Method of Education: Verbal discussion and explanation provided to patient: verbalized understanding and or agreement of this information Treatment Provided: Therapeutic Activities 13 minutes: bed mobility training transfer training Alarm Status Patient positioned in: Bed (06/04/241215) With: Bed alarm intact and functioning and call vieyra in reach (06/04/241215) Treatment Status: Treatment at bedside (06/04/241215) Assessment: Pt presents today for OOB evaluation at this time. Pt is able to sit up to edge of bed requiring maxAx2 for bed mobility but once seated is able to sit up with supervision. Pt requires modAx2 for initial stand attempt but improves to modAx1 to stand. Pt tolerates standing for 30s beforebecoming dizzy and returning to sitting. Due to dizziness not settling, pt requests to return to supine in bed. Pt requires maxAx2 to return to supine in bed. Pt educated on plan of care and active range of motion exercises to complete while dormant and patient is understanding. Pt thankful for therapy at this time. Pt is appropriate for continued therapy at this time to address current deficits as listed below, updated as appropriate. Please consider post-acute care services which may include home health, assisted, outpatienttherapy or inpatient rehabilitation. The level of care will be determined in collaboration with patient, family/caregiver and care team members. Deficits requiring P.T. treatment needs: Safety;Weakness;Endurance;Balance;Mobility (06/04/241215) Equipment Needs: Equipment needs: (tbd) (06/04/241215) Time Frame: 8 visits Anticipated Frequency (on eval): 1 to 3 times per week (06/04/241215) Treatment Plan: Bed mobility training, Transfer training, Gait training, Elevation training, Strengthening exercises, and Balance activities Goals: Demonstrate Bed Mobility with: Supine to Sit: contact guard Sit to supine: contact guard Demonstrate Transfers with: Sit to stand: contact guard Stand to sit: contact guard Demonstrate Ambulation: Least Restrictive Assistive Device distance in feet: 25 level of assistance on level surface: minimal assistance (pt does 75%) Demonstrate Stairclimbing: Number of steps: tbd as appropriate Increase Strength of: 1/2 MMT grade through bilateral LE where deficits noted. Increase Balance: poor+ dynamic standing balance grade. * Lucia Reddy OTR/Keturah - 06/04/2024 12:15 PM EDT GENERAL EVALUATION - Occupational Therapy OOB Evaluation [address] [address] Name: Markus Wharton Location: [facility] A455/[facility] Date: 06/04/2024 Time: 1214 Markus Wharton is a 79 year old male. Patient Status: Inpatient Insurance: Payor: [employer] MEDICARE ADVANTAGE Plan: [employer] MEDICARE ADVANTAGE PPO Product Type: *No Product type* Patient Seen: at bedside, nursing cleared patient for therapy Patient Identified By: Name, ID Band and Date Diagnosis: Septic shock (06/04/241214) Status of treatment: OOB evaluation completed (06/04/241214) Orders: OT evaluation and treatment (06/04/241214) Weight Bearing Status: Weight bearing as tolerated (06/04/241214) Precautions: Alarms;A-line;Falls;Ingram;Safety (06/04/241214) Total Treatment Time: 15 (06/04/241214) Past Medical History: Past Medical History: Diagnosis Date Arthritis, rheumatoid (HCC) Benign neoplasm of colon 05/10/07 adenomatous repeat colonoscopy in 5 years Degeneration of lumbosacral intervertebral disc Elevated blood pressure, situational Fuchs' corneal dystrophy 10/19/2018 Impaired fasting glucose Macular degeneration Morbid (severe) obesity due to excess calories (HCC) 08/19/2017 Past Surgical History: Past Surgical History: Procedure Laterality Date COLONOSCOPY W/ LESION REMOVAL, SNARE 05/10/07 adenomatous repeat in 5 years COLONOSCOPY, DIAGNOSTIC (RECTUM) 05/10/2013 COLONOSCOPY FLEXIBLE PROXIMAL DIAGNOSTIC performed by Teddy Rizvi MD at ENDOSCOPY [facility] COLONOSCOPY, DIAGNOSTIC (RECTUM) 01/21/2019 diverticulosis, repeat 5 yrs/COLONOSCOPY FLEXIBLE PROXIMAL DIAGNOSTIC performed by Teddy Rizvi MD at ENDOSCOPY [facility] REMOVE TONSILS & ADENOIDS, AGE 12+ 1979 Tonsillectomy/Adenoids,12+ Y/O Social History/Disposition Lives with: (daughter, son-in-law, and grandkids) (06/03/24922) Assistance available: Yes (06/03/24922) Dwelling type: Single story home (06/03/24922) Entry steps: (2-3) (06/03/24922) Inside steps: None (06/03/24922) Bedroom location: 1st floor (06/03/24922) Bath location: 1st floor full bath (06/03/24922) Prior Level of Function Reported by: Patient (06/03/24910) Ambulation: Ambulatory with device (06/03/24910) Ambulatory Device: Rolling walker (for short distances vs w/c for longer distances) (06/03/24910) Grooming: Independent (06/03/24910) Bathing: Assistance (06/03/24910) Dressing: Assistance (06/03/24910) Feeding: Independent (06/03/24910) Toileting: Assistance (06/03/24910) Meal Prep: Assistance (06/03/24910) Homemaking: Dependent (06/03/24910) Shopping: Dependent (06/03/24910) Driving: No (06/03/24910) Durable Medical Equipment at home: Bedside commode;Rolling walker;Wheelchair;Raised toilet seat (06/03/24910) Pain: No complaints of pain Observations Consciousness: Alert (06/04/241214) Orientation: Oriented times 4 (06/04/241214) Psychosocial: Patient can communicate basic needs;Patient can converse in a social setting (06/04/241214) Sitting posture: Forward head;Rounded shoulders (06/04/241214) Standing posture: Forward head;Rounded shoulders (06/04/241214) Safety awareness: The Patient verbalizes insight of current deficits.;The Patient demonstrates carryover of insight during functional tasks. (06/04/241214) Other Findings Endurance: Poor (06/04/241214) Light touch sensation: LUE;RUE;Intact (06/03/24910) Coordination: RUE;LUE;Intact (06/03/24910) Tone: Normal tone (06/03/24910) Edema: Edema noted (06/03/24910) Extremity: BUE (06/03/24910) Current Functional Status: Bilateral Upper Extremity Range of Motion: WFL (06/03/24910) Strength Assessment: Deficits noted (06/03/24910) LUE: Shoulder;3+/5;Elbow;Grasp;4-/5 (06/03/24910) RUE: Shoulder;3+/5;Elbow;Grasp;4-/5 (06/03/24910) Dressing Upper Body: Moderate Assistance (simulated task due to lines) (06/04/241214) Lower Body: Dependent (to doff/beto slipper socks) (06/04/241214) Bed Mobility Supine-Sit: Maximal Assistance (x2) (06/04/241214) Sit-Supine: Maximal Assistance (x2) (06/04/241214) OT Transfers Sit-Stand: Moderate Assistance (x2 1st trial achieving 1/2 stance; moderate assistance of 1 2nd trial achieving full stance for 30 seconds with rolling walker support) (06/04/241214) Stand-Sit: Moderate Assistance (x2 1st trial, moderate assistance of 1 second trial) (06/04/241214) Balance Sit (Static): Fair (-) (06/04/241214) Sit (Dynamic): Poor (+) (06/04/241214) Stand (Static): Poor (+ to poor) (06/04/241214) Stand (Dynamic): Not Tested (06/04/241214) Alarm Status Patient positioned in: Bed (06/04/241214) With: Bed alarm intact and functioning and call vieyra in reach (06/04/241214) Patient Education Education Topic: Role of OT;Plan of care goals (06/04/241214) Review of Precautions: Safety;Fall (06/04/241214) Method of Education: Verbalized to patient (06/04/241214) Education Provided to: Patient (06/04/241214) Response to Education: Receptive and agreeable to education (06/04/241214) Barriers to learning: Medical status (06/04/241214) Preferred learning method: Combination (06/04/241214) Treatment Provided: Therapeutic Activity: 15 minutes Deficits Requiring O.T. Treatment: Deficits requiring O.T. treatment needs: ADL/self-care;Balance;Endurance;Functional mobility;Safety;Weakness;Upper extremity strength (06/04/241214) Goals: Increase BUE strength 1/2 grade above evaluation Increase sitting balance to fair Increase standing balance to fair to fair- Increase activity tolerance to engage in 30/30 minutes of functional activities during session Demonstrate the following self care: Feeding at independent Grooming at independent Upper body bathing/dressing at supervision Lower body bathing/dressing at minimal assistance with use of long-handled equipment PRN Toileting at minimal assistance Demonstrate the following bed mobility: Supine to sit at supervision Sit to supine at supervision Demonstrate the following transfers: Sit to stand at supervision Stand to sit at supervision Bed to chair at supervision Toilet at supervision Demonstrate functional ambulation at contact guard assistance with least restrictive device Goal Time Frame: 10 visits Assessment: Patient was seen this date for an OT OOB evaluation. Upon evaluation, patient presentedwith generalized weakness, impaired balance, and impaired endurance. While supine in bed, patient simulated upper body dressing due to lines at moderate assistance for overhead and behind the back reach. Patient required total assistance to beto slipper sock which he reports using long-handled equipment to perform at baseline.Patient required maximal assistance x2 to perform bed mobility. He performed two standing trials. During the first standing trial, patient required moderate assistance x2 to perform 1/2 stance. Patient was educated on proper transfer technique of "nose over toes" which improved performance during second trial where he stood with moderate assistance of 1. Patient tolerated standing for 30 seconds with walker support prior to requesting to return to supine in bed due to fatigue/dizziness. Patient was assisted with returning to supine position and positioned with pillows behind head and underneath arms for comfort and to maintain joint integrity. All needs met. Further OT services are recommended to increase independence with ADLs and functional mobility. Please consider post-acute care services which may include home health, assisted, outpatient therapy or inpatient rehabilitation. The level of care will be determined in collaboration with patient, family/caregiver and care team members. Treatment Plan: Energy Conservation, Safety, Bed mobility training, Functional Ambulation, Transfertraining, Upper extremity strengthening, Balance activities, ADL training, Endurance, and Educate on safety with ADLs and functional mobility Anticipated Frequency (on eval): (1 to 5 times per week) (06/04/241214) AM-PAC Help From Another Person Eating Meals: A little (06/04/241214) Help From Another Person Taking Care of Personal Grooming: A little (06/04/241214) Help From Another Person To Put On/Take Off Upper Body Clothing: A lot (06/04/241214) Help From Another Person To Put On/Take Off Lower Body Clothing: Total (06/04/241214) Help From Another Person Toileting: Total (06/04/241214) Help From Another Person Bathing: A lot (06/04/241214) OT AM-PAC Score: 12 (06/04/241214) OT AM-PAC t-Scale Score: 30.6 (06/04/241214) A portion of this AM-PAC assessment not scored based on functional assessment; rather clinical decision making utilized based on current findings and/or prior level of function. Please refer to future AM-PAC calculations of functional ability as they become available. * Deepak Lowery MD - 06/03/2024 1:19 PM EDTAssociated Order(s): INFECTIOUS DISEASE CONSULT IP CONSULT - Infectious Disease [facility] [id number] Name: Markus Wharton Location: [facility] A455/A Date: 06/03/2024 Time: 1:19 PM CLINICAL TEAM: Infectious Diseases Team 1 REQUESTING SERVICE: MICU REASON FOR CONSULT: This consult was placed per antimicrobial stewardship policy for Linezolid (restricted antimicrobial) Past medical history: Metastatic prostate cancer s/p palliative EBRT 2022 on Lupron, chronic indwelling Ingram catheter, BPH, CKD 3A, HFrEF, CAD s/p stenting 08/2023 HPI: Patient is a 79 year old male admitted to [facility] originally due to laboratory abnormalities, hyponatremic at 120 mmol/l. On presentation he was febrile, tachycardic, tachypnic, hypotensive with CTA A/P showing "findings consistent with an extensive infectious process involving the prostate, seminal vesicles, bladder, symphysis pubis and adjacent soft tissues with multiple locules of extraluminal gas and a 6.3 x 1.5 cm parasymphyseal collection consistent with an abscess. Associated erosion of the medial bilateral pubic bones with widening of the symphysis consistent with osteomyelitis. A gas- forming infectious process can not be excluded" Patient thus transferred to [facility] on 08/01 and admitted to SICU Upon presentation to [facility] T 99.9°, WBC 8.43, RR 24, pulse 93, 91/53 mmHg, startedon vancomcyin and zosyn.. Urology evaluated the patient and determined this was less concerning forFournier's Gangrene and more consistent with puboprostatic fistula. The hydronephrosis seen bilaterally likely secondary to malpositioned ingram catheter, subsequently repositioned. 06/02 Bclx with nogrowth to date, MRSA screen negative. IR has not been consulted pending to aspirate the parasymphyseal collection. Pt currently on Linezolid and Zosyn. ALLERGIES: Fosamax [alendronate sodium], Misoprostol, Niaspan [niacin er (antihyperlipidemic)], Pollen, Pravastatin, Simvastatin, and Brent inhibitors PAST MEDICAL HISTORY: Past Medical History: Diagnosis Date Arthritis, rheumatoid (HCC) Benign neoplasm of colon 05/10/07 adenomatous repeat colonoscopy in 5 years Degeneration of lumbosacral intervertebral disc Elevated blood pressure, situational Fuchs' corneal dystrophy 10/19/2018 Impaired fasting glucose Macular degeneration Morbid (severe) obesity due to excess calories (HCC) 08/19/2017 PAST SURGICAL HISTORY: Past Surgical History: Procedure Laterality Date COLONOSCOPY W/ LESION REMOVAL, SNARE 05/10/07 adenomatous repeat in 5 years COLONOSCOPY, DIAGNOSTIC (RECTUM) 05/10/2013 COLONOSCOPY FLEXIBLE PROXIMAL DIAGNOSTIC performed by Teddy Rizvi MD at ENDOSCOPY [facility] COLONOSCOPY, DIAGNOSTIC (RECTUM) 01/21/2019 diverticulosis, repeat 5 yrs/COLONOSCOPY FLEXIBLE PROXIMAL DIAGNOSTIC performed by Teddy Rizvi MD at ENDOSCOPY [facility] REMOVE TONSILS & ADENOIDS, AGE 12+ 1979 Tonsillectomy/Adenoids,12+ Y/O SOCIAL HISTORY: Social History Tobacco Use Smoking status: Former Current packs/day: 0.00 Average packs/day: 1 pack/day for 35.0 years (35.0 ttl pk-yrs) Types: Cigarettes Start date: 08/03/1962 Quit date: 08/03/1997 Years since quittin.8 Passive exposure: Past Smokeless tobacco: Never Tobacco comments: occasional cigar Vaping Use Vaping status: Never Used Substance Use Topics Alcohol use: Not Currently Drug use: No FAMILY HISTORY and FAMILY STATUS: Family History Problem Relation Name Age of Onset Arthritis Mother RHEUMATOID Gastro-intestinal disorder Mother PUD Gastro-intestinal disorder Father PUD Diabetes Uncle (Unspecified) Arthritis Sister osteo Arthritis Sister osteo Family Status Relation Status Mo at age 93 RA Fa at age 65 stomach ulcer surgery Sis Alive Sis Alive Concepcion Alive obese Son Alive UNCLE (Not Specified) Sis (Not Specified) Sis (Not Specified) ROS: Constitutional: Fever and chill resolved Eyes: No vision change HENT: No ear pain/drainage, sinus infections, hearing loss Cardiovascular: No chest pain, palpitations Respiratory: No shortness of breath, wheezing, cough, sputum production Gastrointestinal: No abdominal pain, nausea/vomiting Skin: No rash, lesions Neurological: No dizziness, weakness, confusion, sensory changes PHYSICAL EXAMINATION: Most Recent Vital Signs: BP: 131 mmHg/49 mmHg (06/03/241199) Pulse: 67 (06/03/241199) Resp: 18 (06/03/241199) Temp: 36.78 C (06/03/241199) Temp Summary: Temp Min: 36.4 °C (97.5 °F) Max: 37 °C (98.6 °F) SpO2: 97 % (06/03/241199) O2 flow rate: 1 L/MIN (06/03/24 0800) Supplemental O2 Delivery: Room Air, None (06/03/241199) Vital Signs Last 24 Hours: Systolic BP: Most Recent Systolic BP Av.8 mmHg Min: 82 mmHg Max: 141 mmHg Temperature: Most Recent Temperature Av.7 C Min: 36.39 C Max: 37 C Pulse: Pulse Av Min: 66 Max: 89 Respirations: Resp Av.8 Min: 14 Max: 33 SpO2: SpO2 Av.2 % Min: 97 % Max: 100 % General: Appears comfortable sitting up in bed, on room air Eyes: Pupils equal Cardiovascular: S1/S2, no murmurs appreciated Respiratory: no wheezing/rhonchi/rales, clear to auscultation Abdomen: Soft and nontender to deep palpation, no guarding : Ingram catheter in place Musculoskeletal: No gross deformity appreciated Skin: No rashes, lesions Neurological: AAOx3, clear speech, motor 5/5 in upper extremities, no focality appreciated LABS: Labs reviewed as indicated below: Lab results within last 7 days (see chart for full results) Units 06/03/24 0530 06/02/24 1111 06/02/24 0542 06/02/24 0006 06/01/24 2323 05/31/24 0903 WBC K/uL 16.23* -- 32.30* -- 36.61* 8.43 CREATININE mg/dL 1.1 1.4* 1.4* 1.6* 1.5* 0.9 BUN mg/dL 21* 15 15 17 17 13 EGFR mL/min 67 51* 52* 46* 47* 86 MICROBIOLOGY DATA: 05/31 Uclx: Streptococcus dysgalactiae, C striatum/simulans sp 06/01 Uclx : 3 types of organisms IMAGIN/28 CTA abdomen/pelvis: findings consistent with an extensive infectious process involving the prostate, seminal vesicles, bladder, symphysis pubis and adjacent soft tissues with multiple locules of extraluminal gas and a 6.3 x 1.5 cm parasymphyseal collection consistent with an abscess. Associated erosion of the medial bi lateral pubic bones with widening of the symphysis consistent with osteomyelitis. A gas-forming infectious process can not be excluded IMPRESSION: 79-year-old male with a history of prostate cancer s/p EBRT 2022, currently on Lupron initially presenting to outside hospital for hyponatremia. Patient was developing chills/fever after difficult Ingram catheter placement subsequently transferred to [facility] due to imaging concerning for large parasymphyseal abscess and in shock requiring vasopressors. Currently it is unknown whether the abscess represents infection versus urine collection and whether the osseous changes of the symphysis are chronic or represent active osteomyelitis. Considering the patients septic picture nursing home abx will be suggested. 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 Changes from radiation therapy Prostate cancer s/p EBRT on Lupron Hyponatremia, ?SIADH AFib RVR in setting of sepsis-improving RECOMMENDATIONS: -Discontinue linezolid there is no concern for necrotizing infection -Please start Vancomycin dosed per pharmacy -Continue Zosyn 4.5g IV q8 hrs -Recommend IR aspiration of the parasymphyseal abscess to assist in guiding nursing home Abx therapy for the intraabdominal infection and possible OM, please send fungal and bacterial cultures -ID will continue to follow Case discussed with ID attending Dr. Camilo Lowery MD Infectious Disease PGY-5 [facility] Cosigned by Mary Page MD at 06/03/2024 6:12 PM EDT Associated attestation - Mary Page MD - 06/03/2024 6:12 PM EDT Attending Addendum This is a 79 y/o male w/ hx of HTN, CKD 3A, RA, CAD, and prostate CA s/p EBRT (2022), currently on Lupron. The patient has had chronic ingram for past 2 months (last replaced on 05/30/24). 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 Also, noted to have malpositioned ingram w/ a portion of the catheter extending into the symphysis pubis and distended blader w/ moderate b/l hydroureteronephrosis. Transferred from [facility] for high level of care. The patient is currently doing well, feeling improvedafter exchange of the malpositioned ingram but still requires low dose of vasopressor. Necrotic fasciitis was deemed less likely but complicated pelvic infection as above. 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 I would switch linezolid to vancomycin iv for now. I strongly encourage to aspirate the fluid collection to obtain culture to guide abx therapy as the patient will likely need a long-term abx therapy for the suspected OM. The urine culture from [facility] showed Strep sp and C striatum but there were multiple other organisms as well, not identified. Will continue to follow. I saw and evaluated the patient today. I have reviewed the resident/fellow physician note and agree. I spent a total of 60 minutes coordinating, documenting, and providing care for this patient excluding time spent in the performance of separately billed services or time spent by another provider/QHP. * Monse Bellamy DPT - 06/03/2024 9:23 AM EDTAssociated Order(s): ADULT PHYSICAL THERAPY CONSULT IP GENERAL BEDREST EVALUATION - Physical Therapy [facility] [id number] Name: Markus Wharton Location: [facility] A455/A Date: 06/03/2024 Time: 922 Markus Wharton is a/an 79 year old male. Patient Status: Inpatient Insurance: Payor: [employer] MEDICARE ADVANTAGE Plan: [employer] MEDICARE ADVANTAGE PPO Product Type: *No Product type* Patient Seen: at bedside, nursing cleared patient for therapy Patient Identified By: Name, ID Band and Date Diagnosis: osteomyelitis, sepsis (06/03/24922) Status of treatment: Bedrest evaluation completed (06/03/24922) Orders: PT evaluation and treatment (06/03/24922) Weight Bearing Status: Weight bearing as tolerated (06/03/24922) Precautions: A-line;Alarms;Falls;Safety;Ingram (06/03/24922) Total Treatment Time--free text: 12 (06/03/24922) Past Medical History: Past Medical History: Diagnosis Date Arthritis, rheumatoid (HCC) Benign neoplasm of colon 05/10/07 adenomatous repeat colonoscopy in 5 years Degeneration of lumbosacral intervertebral disc Elevated blood pressure, situational Fuchs' corneal dystrophy 10/19/2018 Impaired fasting glucose Macular degeneration Morbid (severe) obesity due to excess calories (HCC) 08/19/2017 Past Surgical History: Past Surgical History: Procedure Laterality Date COLONOSCOPY W/ LESION REMOVAL, SNARE 05/10/07 adenomatous repeat in 5 years COLONOSCOPY, DIAGNOSTIC (RECTUM) 05/10/2013 COLONOSCOPY FLEXIBLE PROXIMAL DIAGNOSTIC performed by Teddy Rizvi MD at ENDOSCOPY [facility] COLONOSCOPY, DIAGNOSTIC (RECTUM) 01/21/2019 diverticulosis, repeat 5 yrs/COLONOSCOPY FLEXIBLE PROXIMAL DIAGNOSTIC performed by Teddy Rizvi MD at ENDOSCOPY [facility] REMOVE TONSILS & ADENOIDS, AGE 12+ 1980 Tonsillectomy/Adenoids,12+ Y/O Subjective: Pt is agreeable to PT. Social History/Disposition Lives with: (daughter, son-in-law, and grandkids) (06/03/24922) Assistance available: Yes (06/03/24922) Dwelling type: Single story home (06/03/24922) Entry steps: (2-3) (06/03/24922) Inside steps: None (06/03/24922) Bedroom location: 1st floor (06/03/24922) Bath location: 1st floor full bath (06/03/24922) Prior Level of Function Reported by: Patient (06/03/24922) Ambulation: Ambulatory with assistance and device;Non-ambulatory with manual wheelchair (06/03/24922) Ambulatory Device: (short distances and transfers with use of walker, long distances with use of wheelchair) (06/03/24922) Devices at home: Rolling walker;Wheelchair;Bedside commode (06/03/24922) Observations Consciousness: Alert (06/03/24922) Orientation: Oriented times 4 (06/03/24922) Psychosocial: Patient can communicate basic needs;Patient can converse in a social setting (06/03/24922) Other Findings: Yes (06/03/24922) Findings: Light touch sensation (06/03/24922) Light Touch Sensation Results: Intact;LLE;RLE (notes some tingling but perceives light touch) (06/03/24922) Edema Results: (BLE with edema) (06/03/24922) Pain: No complaints of pain Range of Motion Range of Motion: WFL, except (hip flexion limited by weakness) (06/03/24922) Strength Assessment Strength Assessment: Deficits noted (06/03/24922) WNL, except: LLE;RLE (06/03/24922) LLE: Hip;3-/5;Knee;3/5;Ankle;4/5 (06/03/24922) RLE: Hip;3-/5;Knee;3/5;Ankle;4/5 (06/03/24922) Patient and or Family Goal(s): to get well and to return home Patient Education Review of Precautions: Safety (06/03/24922) Safety Awareness: Patient verbalizes insight of current deficits;Patient demonstrates carryover of insight during functional tasks;Patient can communicate basic needs (06/03/24922) Preferred learning method: Combination (06/03/24922) Barriers to learning: Medical Status (06/03/24922) Method of Education: Verbalized to patient (06/03/24922) Topic of Education: Safety with mobility and Goals/plan of care, Role of PT Method of Education: Verbal discussion and explanation provided to patient: verbalized understanding and or agreement of this information Treatment Provided: Evaluation Moderate Complexity 12 minutes - 25778: Patient was cooperative and pleasant during treatment session. Moderate complexity evaluation performed and 1-2 personal factorsor comorbidities were identified that will impact plan of care, including multiple steps at home and obesity. Patient presents with limitations in range of motion and strength, which will impact planof care. These limitations will be addressed by the goals set for this patient. Alarm Status Patient positioned in: Bed (06/03/24922) With: Bed alarm intact and functioning and call vieyra in reach (06/03/24922) Treatment Status: Treatment at bedside (06/03/24922) Goals: Increase ROM of: BLE to be 50% of ROM or greater Increase Strength of: BLE by 1/2 grade or greater Assess out of bed mobility when appropriate/able Time Frame: 10 visits Assessment: Patient is a 79 y/o male with dx of sepsis. Prior to admission, patient lives with his daughter, son in law, and granddaughter. His daughter is his caregiver and was modified independent with transfers with use of walker and assist for ambulating with walker of very short household distances. Pt reports he uses a wheelchair for longer distances and they are in the process of installing a ramp for him. Bedrest evaluation completed this date secondary to RN request due to pt still on pressors and pt's overall medical status. Pt with symmetrical BLE strength but notable weakness. Patient would benefit from continued PT to maximize functional independence. Will defer discharge consid erations until out of bed mobility assessed. Deficits requiring P.T. treatment needs: Lower extremity strength;Endurance (06/03/24922) Treatment Plan: ROM exercises: BLE and Strengthening exercises: BLE Assess out of bed mobility Anticipated Frequency (on eval): (1-5x/week) (06/03/24922) AM PAC Score with Stairs: AM-PAC assessment not scored at this time due to bedrest evaluation. Please refer to future AM-PAC calculations of functional mobility as they become available. Monse Dick, PT, DPT, NCS Physical Therapy [facility] * Joellen Benjamin OTR/Keturah - 06/03/2024 9:11 AM EDTAssociated Order(s): ADULT OCCUPATIONAL THERAPY CONSULT IP OT BEDREST EVALUATION - Occupational Therapy [facility] [id number] Name: Markus Wharton Location: [facility] A455/A Date: 06/03/2024 Time: 9:11 AM Markus Wharton is a 79 year old male. Patient Status: Inpatient Insurance: Payor: A[employer] MEDICARE ADVANTAGE Plan: A[employer] MEDICARE ADVANTAGE PPO Product Type: *No Product type* Patient Seen: at bedside, nursing cleared patient for therapy Patient Identified By: Name, ID Band and Date Diagnosis: septic shock (06/03/24910) Status of treatment: Bedrest evaluation completed (06/03/24910) Orders: OT evaluation and treatment;OT OOB (06/03/24910) Weight Bearing Status: Weight bearing as tolerated (06/03/24910) Precautions: Alarms;Falls;Ingram;A-line;Safety (06/03/24910) Total Treatment Time: 12 (06/03/24910) Past Medical History: Past Medical History: Diagnosis Date Arthritis, rheumatoid (HCC) Benign neoplasm of colon 05/10/07 adenomatous repeat colonoscopy in 5 years Degeneration of lumbosacral intervertebral disc Elevated blood pressure, situational Fuchs' corneal dystrophy 10/19/2018 Impaired fasting glucose Macular degeneration Morbid (severe) obesity due to excess calories (HCC) 08/19/2017 Past Surgical History: Past Surgical History: Procedure Laterality Date COLONOSCOPY W/ LESION REMOVAL, SNARE 05/10/07 adenomatous repeat in 5 years COLONOSCOPY, DIAGNOSTIC (RECTUM) 05/10/2013 COLONOSCOPY FLEXIBLE PROXIMAL DIAGNOSTIC performed by Teddy Rizvi MD at ENDOSCOPY [facility] COLONOSCOPY, DIAGNOSTIC (RECTUM) 01/21/2019 diverticulosis, repeat 5 yrs/COLONOSCOPY FLEXIBLE PROXIMAL DIAGNOSTIC performed by Teddy Rizvi MD at ENDOSCOPY [facility] REMOVE TONSILS & ADENOIDS, AGE 12+ 1980 Tonsillectomy/Adenoids,12+ Y/O Social History/Disposition Lives with: (daughter, son-in-law, and grandkids) (06/03/24910) Assistance available: Yes (06/03/24910) Dwelling type: Single story home (06/03/24910) Entry steps: (2-3) (06/03/24910) Inside steps: None (06/03/24910) Bedroom location: 1st floor (06/03/24910) Bath location: 1st floor full bath (06/03/24910) Prior Level of Function Reported by: Patient (06/03/24910) Ambulation: Ambulatory with device (06/03/24910) Ambulatory Device: Rolling walker (for short distances vs w/c for longer distances) (06/03/24910) Grooming: Independent (06/03/24910) Bathing: Assistance (06/03/24910) Dressing: Assistance (06/03/24910) Feeding: Independent (06/03/24910) Toileting: Assistance (06/03/24910) Meal Prep: Assistance (06/03/24910) Homemaking: Dependent (06/03/24910) Shopping: Dependent (06/03/24910) Driving: No (06/03/24910) Durable Medical Equipment at home: Bedside commode;Rolling walker;Wheelchair;Raised toilet seat (06/03/24910) Subjective: Pt supine in bed upon therapists arrival. Pt agreeable to occupational therapy services. Pain: No complaints of pain Observations Consciousness: Alert (06/03/24910) Orientation: Oriented times 4 (06/03/24910) Psychosocial: Patient can converse in a social setting;Patient can communicate basic needs (06/03/24910) Safety awareness: The Patient demonstrates carryover of insight during functional tasks.;The Patient verbalizes insight of current deficits.;Needs cueing supervision. (06/03/24910) Other Findings Light touch sensation: LUE;RUE;Intact (06/03/24910) Coordination: RUE;LUE;Intact (06/03/24910) Tone: Normal tone (06/03/24910) Edema: Edema noted (06/03/24910) Extremity: BUE (06/03/24910) Current Functional Status: Bilateral Upper Extremity Range of Motion: WFL (06/03/24910) Strength Assessment: Deficits noted (06/03/24910) LUE: Shoulder;3+/5;Elbow;Grasp;4-/5 (06/03/24910) RUE: Shoulder;3+/5;Elbow;Grasp;4-/5 (06/03/24910) Self Care Able to provide self care: Yes (06/03/24910) Grooming: Supervision (Please comment) (to simulate while supine in bed) (06/03/24910) Alarm Status Patient positioned in: Bed (06/03/24910) With: Bed alarm intact and functioning and call vieyra in reach (06/03/24910) Patient and Family Goals: To get well Patient Education Education Topic: Role of OT (06/03/24910) Review of Precautions: Safety;Fall (06/03/24910) Method of Education: Verbalized to patient (06/03/24910) Education Provided to: Patient (06/03/24910) Response to Education: Receptive and agreeable to education (06/03/24910) Barriers to learning: None (06/03/24910) Preferred learning method: Combination (06/03/24910) Treatment Provided: Evaluation Moderate Complexity 12 minutes - 82302: Patient was cooperative and pleasant during treatment session. Moderate complexity evaluation performed and 3-5 activity limitations were identified, including decreased strength. Minimal or moderate modification of the functional task was necessary to complete the evaluation. Deficits Requiring O.T. Treatment: Deficits requiring O.T. treatment needs: Safety;Upper extremity strength;Weakness (06/03/24910) Assessment: Pt is a 79 year old male admitted to [facility] for septic shock. Pt reports he lives with hisdaughter and her family in a 1 story home with 2-3 EM. Pt reports prior to admission required asssistance with most ADL tasks and was utilizing a rolling walker independently for short distances around the home. Pt supine in bed upon therapists arrival. Pt demonstrated good ROM and fair strength in bilateral upper extremities. Pt able to simulate washing face with ease while supine in bed. OT limited to bedrest evaluation only at this time secondary to pt currently on a high number of pressors, not medically appropriate for OOB mobility at this time. Currently, pt presents with difficulty inADL completion and decrease in strength/ROM in bilateral upper extremities. Pt would benefit from continue skilled OT services to further increase strength, endurance, and independence in ADL/IADL tasks and facilitate a safe transition to the next level of care. Please defer discharging planning atthis time until further OOB assessment is completed. OT Goals: Upper Extremity Strength/ROM Pt will increase bilateral upper extremity strength by 1/2 muscle grade. Pt will complete further OOB assessment with OTR/L. Goal Time Frame: 10 visits Treatment Plan: Safety, ROM exercises, Upper extremity strengthening, OOB assessment as able/appropriate Anticipated Frequency (on eval): (1-5x/wk) (06/03/24 0911) AM-PAC assessment not scored at this time due to bedrest evaluation only. Please refer to future AM-PAC calculations of functional mobility as they become available. * Raina Schmitt RN - 06/02/2024 11:45 AM EDTAssociated Order(s): WOUND/OSTOMY CONSULT IP; WOUND/OSTOMY CONSULT IP Images from the original note were not included. Wound / Ostomy Nurse Consult Note Wound Ostomy asked to see this 79 year old patient for buttocks wounds. Recommendations: Suggest low air loss mattress Foam dressing to buttocks wounds , change Q 3 days and prn with soiling/rolling up, can be lifted and re-adhered for routine skin assessments -If unable to maintain foam dressing due to incontinence, No sting barrier film to bilateral buttock wounds Q shift, allow to dry, top with moisture barrier cream. -Avoid simultaneous use of moisture barrier cream and foam dressing to prevent maceration. Turn and reposition Q 2 hours Limit time sitting to < 2 hours at a time; utilize waffle/bubble cushion while sitting Heel elevation off mattress at all times -utilize offloading heel boots as needed Call with changes in wound appearance or new concerns. Admitted 06/01/2024 for generalized weakness and confusion. PMH significant for Past Medical History: Diagnosis Date Arthritis, rheumatoid (HCC) Benign neoplasm of colon 05/10/07 adenomatous repeat colonoscopy in 5 years Degeneration of lumbosacral intervertebral disc Elevated blood pressure, situational Fuchs' corneal dystrophy 10/19/2018 Impaired fasting glucose Macular degeneration Morbid (severe) obesity due to excess calories (HCC) 08/19/2017 Wound history/prehospital care: has been spending more time in a recliner at home, uses a bedside commode. Current Skin Wound Care: low air loss/alternating air mattress, moisture wicking pads, heel elevation, barrier cream, turn and reposition, and pillows Wound Assessment: Awake, alert, on [place] low air loss mattress, offloading heel boots in place. Left and right buttocks with full thickness skin loss, pale pink wound bases with granulation buds,serous drainage. 5cmL x 3cmW x 0.3cmD each. Stage 3 pressure injuries present on admission. Foam dressing applied. Educated patient on importance of frequent repositioning and offloading of bony prominences, including elbows, heels, sacrum/buttocks, hips, in order to prevent pressure related skin injury. Verbalized understanding. * Annette Horn MSW - 06/02/2024 9:27 AM EDTAssociated Order(s): CARE MANAGEMENT CONSULT IP Please see ancillary notes. CM to continue to follow throughout hospitalization. Thanks * Nakul Smith MD - 06/02/2024 1:31 AM EDTAssociated Order(s): UROLOGY CONSULT IP Images from the original note were not included. 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 Patient's medical history is significant for hypertension, CKD 3A, RA and CAD status post PCI in August 22, 2023 (on aspirin and Plavix) Urologic history is significant for very high-risk prostate cancer with grade group 5 in 15/15 cores with right iliac lymph node enhancement on PSMA PET scan now status post EBRT 2022 and Zytiga, currently on Lupron. Most recent PSA 05/30/2024 was 0.03. in the past, he was on clean intermittent catheterizations schedule. The patient was admitted at OSH about 2 months ago due to UTI and at that time Ingram catheter was placed via scope. Then this catheter was replaced on 05/30/[address] Sexton who is his urologist that he follows with. Office cystoscopy was done and showed the following " Urethra demonstrated cloudy purulent drainage. An undermined prostate and bladder neck with necrotic debris was noted, but wasable to be bypassed without excess difficulty. Prostatic urethra demonstrated obstructed, blanched tissue . Bladder neck was visualized and bladder was entered. Sterile saline irrigation was used to distend the bladder which was noted to have thick, cloudy debris with inflamed mucosa " 18 [place] Islander coude catheter was placed and the patient was discharged home from the clinic with the instruction to flush the catheter daily and plan to exchange the catheter in a month. The patient presented to the [facility] on 05/31/2024 due to abnormal labs with hyponatremia with sodium 123. After he got admitted there, catheter was replaced. 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 There also is about 6 cm parasymphyseal collection concerning for abscess. After the CT scan was obtained, the patient states that the catheter got replaced but not much was draining. 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 The patient was started on vancomycin and Zosyn. On arrival to [facility], the patient was on levo 12 but mentating well and denies any pain WBC 36.61 Hgb 8.7 Cr 1.5 baseline 0.8-9 Troponin 560 Lactate 1.5 UA and bcx pending. UA from 05/31/2024 positive for strep dysgalactiae Past Medical History: Diagnosis Date Arthritis, rheumatoid [...] performed by Teddy Rizvi MD at ENDOSCOPY [facility] COLONOSCOPY, DIAGNOSTIC (RECTUM) 01/21/2019 diverticulosis, repeat 5 yrs/COLONOSCOPY FLEXIBLE PROXIMAL DIAGNOSTIC performed by Teddy Rizvi MD at ENDOSCOPY [facility] REMOVE TONSILS & ADENOIDS, AGE 12+ 1979 Tonsillectomy/Adenoids,12+ Y/O Family History Problem Relation Name Age of Onset Arthritis Mother RHEUMATOID Gastro-intestinal disorder Mother PUD Gastro-intestinal disorder Father PUD Diabetes Uncle (Unspecified) Arthritis Sister osteo Arthritis Sister osteo Social History Socioeconomic History Marital status: Spouse name: Keyanna Number of children: 2 Years of education: Not on file Highest education level: Not on file Occupational History Employer: [employer] Tobacco Use Smoking status: Former Current packs/day: [...] Needs: Not on file Social Connections: Unknown (06/02/2024) Social Connections How often do you feel lonely or isolated from those around you? (Adult - for ages 18 years and over): Not on file Housing Stability: Not on file Current Facility-Administered Medications Medication Dose Route Frequency Provider aspirin enteric coated tab 81 mg 81 mg Oral Daily(AM) Fatuma Altman DO clopidogrel (pLAVix) tab 75 mg 75 mg Oral Daily(AM) Fatuma Altman DO dextrose 50% inj 25 mL 25 mL IV Push PRN Fatuma Altman, dextrose 50% inj 50 mL 50 mL IV Push PRN Fatuma Altman DO glucagon (Glucagen) inj 1 mg 1 mg Intramuscular PRN Fatuma Altman DO Glucose (Glutose 15) 40 % gel 15 g of glucose 15 g of glucose Oral PRN Fatuma Altman DO Glucose (Glutose 15) 40 % gel 30 g of glucose 30 g of glucose Oral PRN Fatuma Altman DO glucose chew tab 16 g 16 g Oral PRN Fatuma Altman DO insulin aspart (NovoLOG) inj Subcutaneous Q6H Fatuma Altman DO magnesium sulfate 1 g in d5w 100mL LOCKED DOSE 1 g IV Piggyback Q1H Fatuma Altman DO sodium PHOSphate 30 mmol in NSS 250 mL (NaPhos) ivpb 30 mmol Peripheral IV Once Fatuma Altman DO Acetaminophen (Tylenol) tab 650 mg 650 mg Oral Q6H PRN Fatuma Altman DO albuterol (VENTOLIN HFA/PROVENTIL HFA) inhaler 1 Puff Inhalation Q6H PRN Fatuma Altman DO chlorHEXIDINE (Periogard) 0.12 % oral rinse 15 mL 15 mL Oral mucosal membrane BID (0800,1999) Fatuma Altman DO folic acid tab 1 mg 1 mg Oral Daily(AM) Fatuma Altman DO hEParin inj 5,000 Units 5,000 Units Subcutaneous Q8H Fatuma Altman DO isolyte-S pH 7.4 infusion Intravenous Continuous Fatuma Altman DO Linezolid (Zyvox) ivpb 600 mg 600 mg IV Piggyback Q12H NOW Fatuma Altman DO [START ON 06/03/2024] METHOtrexate tab 12.5 mg 12.5 mg Oral Q Week Fatuma Altman DO NORepinephrine (Levophed) 4 mg in 250 ml D5W STANDARD CONCENTRATION 16 mcg/ml 0- 30 mcg/min Peripheral IV Titrate Fatuma Altman DO Oral Hygiene: Mouth Swab with dentifrice Oral Q4H Limited (00;04;12;16) Fatuma Altman DO Piperacillin-Tazobactam (Zosyn) 4.5 g in 100 mL NSS ivpb (FOUR hour infusion) 4.5 g IV Piggyback Q8H Now Fatuma Altman DO sodium chloride 0.9 % flush peripheral bernard 3 mL 3 mL IV Push Q8H Fatuma Altman DO Review of patient's allergies indicates: Allergen Reactions Fosamax [Alendronate Sodium] Muscle pain Heartburn, constipation, joint pain Misoprostol Diarrhea Niaspan [Niacin Er (Antihyperlipidemic)] Gas, hot flashes Pollen Watery eyes, sneezing Pravastatin Upset stomach, all .Statins Simvastatin Upset stomach Brent Inhibitors Cough REVIEW OF SYSTEMS: See HPI for pertinent positive and negative ROS. Otherwise 10 point ROS review conducted. GEN: + weakness HEENT: no changes in vision or hearing, no sinus problems, no sore throat or hoarseness RESPIRATORY: no cough, wheezing, change in breathing CARDIOVASCULAR: no exertional chest pain, dyspnea, palpitations GI: no vomiting or diarrhea; no changes in bowel habits : see HPI MUSCULOSKELETAL: no history of arthritis; other joint problems PSYCHIATRIC: no significant anxiety or depression, unchanged sleep pattern HEME: no bleeding or clotting tendency NEURO: no significant headaches, no seizures , no tremors SKIN: no new rashes, no itching ENDOCRINE: no changes to temperature sensitivity PHYSICAL EXAMINATION: BP 105/64 | Pulse 87 | Temp 37.7 °C (99.9 °F) (Tympanic) | Resp 23 | Ht 1.88 m (6' 2") | Wt 123.4kg (272 lb 0.8 oz) | SpO2 97% | BMI 34.93 kg/m² | BSA 2.54 m² Constitutional: Alert, no acute distress Skin: No obvious rashes or lesions Eyes: No scleral icterus ENT/Mouth: No tracheal deviation Cardiovascular: Normal rate, regular rhythm Respiratory: Non-labored breathing Gastrointestinal: Abdomen is soft, non-tender, non-distended Neurological: No gross focal deficits Psychiatric: Normal mood and affect Genitourinary: No suprapubic or CVA tenderness. Circumcised penis with 16 [place] Ingram catheter draining scant purulent urine LABS: CBC Lab Results Component Value Date/Time WBC 36.61 (H) 06/01/2024 11:23 PM WBC 11.70 (H) 07/11/2019 01:37 PM HGB 8.7 (L) 06/01/2024 11:23 PM HGB 8.4 (A) 05/18/2024 12:00 AM HGB 14.4 07/11/2019 01:37 PM HCT 27.7 (L) 06/01/2024 11:23 PM HCT 44.6 07/11/2019 01:37 PM PLT 498 (H) 06/01/2024 11:23 PM PLT 248 07/11/2019 01:37 PM BMP Lab Results Component Value Date/Time NA 124 (L) 06/02/2024 12:06 AM NA 139 04/25/2019 09:53 AM POTASSIUM 3.8 06/02/2024 12:06 AM POTASSIUM 4.0 05/18/2024 12:00 AM POTASSIUM 4.7 04/25/2019 09:53 AM CL 89 (L) 06/02/2024 12:06 AM CL 96 (L) 04/25/2019 09:53 AM CO2 21 (L) 06/02/2024 12:06 AM CO2 31 04/25/2019 09:53 AM BUN 17 06/02/2024 12:06 AM BUN 20 04/25/2019 09:53 AM CREAT 1.6 (H) 06/02/2024 12:06 AM CREAT 0.88 05/18/2024 12:00 AM CREAT 1.1 07/11/2019 01:37 PM Ca, Mg, Phos Lab Results Component Value Date/Time CA 8.0 (L) 06/02/2024 12:06 AM CA 10.4 (H) 04/25/2019 09:53 AM MG 1.8 06/01/2024 11:23 PM PHOSPHORUS 2.1 (L) 06/01/2024 11:23 PM PHOSPHORUS 3.0 05/18/2024 12:00 AM PHOSPHORUS 3.0 12/15/1996 03:00 PM Hepatic Function Panel Lab Results Component Value Date/Time TBIL 0.3 06/01/2024 11:23 PM TBIL 0.4 07/11/2019 01:37 PM ALKP 105 06/01/2024 11:23 PM ALKP 74 07/11/2019 01:37 PM AST 23 06/01/2024 11:23 PM AST 16 07/11/2019 01:37 PM ALT 14 06/01/2024 11:23 PM ALT 24 07/11/2019 01:37 PM PROT 6.1 06/01/2024 11:23 PM PROT 7.0 07/11/2019 01:37 PM Coags No results found for: "INR" Lactic acid Lab Results Component Value Date/Time LAC 1.5 06/01/2024 11:23 PM Arterial Blood Gas No results found for: "PH", "PCO2", "PO2", "HCO3" URINALYSIS Results for orders placed or performed in visit on 12/02/99 URINE CHEMISTRY Result Value Ref Range Color, Urine yellow yellow - [place] Clarity, Urine clear clear - clear Glucose, Urine neg neg - neg Bilirubin, Urine neg neg - neg Ketone, Urine neg neg - neg Specific [place], Urine 1.020 1.003 - 1.030 Blood, Urine neg neg - neg pH, Urine 5 5.0 - 6.0 Protein, Urine neg neg - neg Urobilinogen, Urine neg normal - normal Nitrite, Urine neg neg - neg Esterase, Urine neg neg - neg Results for orders placed or performed in visit on 05/11/24 URINALYSIS, REFLEX TO CULTURE Result Value Ref Range Color, Urine Yellow Colorless, Light Yellow, Yellow, Dark Yellow Clarity, Urine Slightly Cloudy (A) Clear Glucose, Urine Negative Negative mg/dL Bilirubin, Urine Negative Negative Ketone, Urine Negative Negative mg/dL Specific [place], Urine 1.017 1.003 - 1.030 Blood, Urine Moderate (A) Negative pH, Urine 6.5 5.0 - 7.5 Units Protein, Urine 100 (A) Negative mg/dL Urobilinogen, Urine Normal Normal mg/dL Nitrite, Urine Negative Negative Esterase, Urine Large (A) Negative RBC, Urine 10-19 (A) 0 - 2 /HPF WBC, Urine 50+ (A) 0 - 2 /HPF Bacteria, Urine 26-50 (A) 0 - 25 /HPF Culture, Urine URINALYSIS, REFLEX TO CULTURE (CUP ONLY) Result Value Ref Range Urinalysis, Reflex to Culture Specimen Specimen collected and received *Note: Due to a large number of results and/or encounters for the requested time period, some results have not been displayed. A complete set of results can be found in Results Review. CULTURES: Recent Cultures (2 Weeks) No lab values to display. UCx (06/02/2024): pending BCx (06/02/2024): pending IMAGING: IR BIOPSY (Results Pending) IR BIOPSY (Results Pending) Brief Urology procedure - previously placed 16 [place] Ingram catheter was attempted to irrigate but was not able to aspirateanything. Decision was made to replace the Ingram catheter. Previously placed Ingram catheter was removed by deflating the balloon. Then 18 [place] Councill tip was introduced into the meatus after prepping and draping the patient in a usual sterile fashion. Resistance was met round the prostate. Thena roadrunner wire was advanced next to the catheter into the bladder. Then the [place] tip catheter was advanced over the wire into the bladder without any resistance. Copious amount of yellow urinewas returned. Balloon was inflated with 10 mL of sterile water. Patient tolerated the procedure well IMPRESSION: 79 year old male seen who is transferred for concern for septic shock in the setting of prostate cancer. 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 RECOMMENDATIONS: - no acute urologic intervention indicated at this time - agree with broad-spectrum antibiotics and IR consult for possible drainage/bone biopsy of the pubis - please maintain Ingram catheter to drainage. Bilateral hydroureteronephrosis is most likely due tothe malposition catheter and expect to resolve with a correctly placed Ingram catheter - follow-up culture and narrow antibiotics as possible Patient to be discussed with Dr. Luis Lechuga MD 06/02/2024 1:31 AM I saw and evaluated the patient today. I have reviewed the resident/fellow physician note and agree. 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 He has air around the pubis likely related to the recent cystoscopy with Dr. Sexton. The Ingram catheter on his imaging in the emergency department was in the prostatic urethra. This was replaced by our service into the bladder. If he is clinically deteriorating we would recommend percutaneous drainage of any collection or gas. He will need to maintain his Ingram catheter drainage for urinary drainage if this is not adequate nephrostomy tubes could be considered. Treatment for infection/pubic osteomyelitis. Nakul Smith MD documented in this encounter Nursing Notes * Cintia Moreno RN - 06/07/2024 12:19 PM EST Patient/caregiver, Markus Wharton, verbalized understanding that a pressure injury is anticipated due to the following conditions:Patient refusal of repositioning and pressure offloading and other: current pressure injury that may render established pressure injury prevention modalities ineffective. Skin breakdown is anticipated to occur in areas including but not limited to sacrum, heels, bony prominences, ingram catheter related. Education was provided about patient's condition and treatment as well as unit standards for turning, repositioning, and skin care. * Angle Riggs RN - 06/06/2024 3:21 PM EST SBAR FOR POST INTERVENTIONAL RADIOLOGY PROCEDURE Patient Name: Markus Wharton Age:[age] year old Sending to: [facility] Procedure: Pubic Abscess Aspiration Medications Administered: yes: Lidocaine, Fentanyl, Versed Special Instructions: Keep dressing clean, dry and intact for 24 hrs. Concerns: no Report from: Angle Phone extension: [phone] Patient sent via: Bed Reason for SBAR handoff: Transfer Patient meets discharge criteria for Interventional Radiology. Vital signs stable. Dressing clean, dry, and intact. Patient awake and oriented to pre procedure baseline. Patient with no nausea/vomiting. All belongings sent with patient. Vital Signs: BP: 120/73 (06/06/24 1510) Temp: 36 °C (96.8 °F) (06/06/24 1400) Pulse: 90 (06/06/24 1510) Resp: 21 (06/06/24 1510) SpO2: 100 % (06/06/24 1510) Glucose (Bedside): 90 (06/06/24 1138) Weight: (!) 138.5 kg (305 lb 5.4 oz) (06/06/24 0500) Height: 188 cm (6' 2") (06/01/24 2315) Neurological: [place] Coma Scale - For patients greater than two years old Eyes Open: Spontaneous (06/06/24 1400) Best Verbal Response: Verbally appropriate for age (06/06/24 1400) Best Motor Response: Obeys commands appropriate for age (06/06/24 1400) Coma Score: 15 (06/06/24 1400) Activity: Four Extremities LOC: Arousable on Calling BP: Less than (+/-) 20% Resp: Deep Breathe and Cough Freely (06/06 1515) Respiratory: Pain Assessment Flowsheet Row Most Recent Value Pain Assessment Scale [facility] Adult Scale 0-10 Pain Score 0 (no pain) Lines: Urethral Catheter Coude (Active) Site Assessment Skin intact 06/06/24834 Securement Method Leg strap 06/06/24834 Catheter secured to leg? Yes 06/06/24834 Catheter bag below bladder? Yes 06/06/24834 Has IUBC been removed? (If yes, ensure the order is discontinued.) No, chronic indwelling catheter 06/06/24834 Critical Patient Need for Hourly Urine Outputs with IUBC Shock or Mg++ infusion monitoring IUBC Tubing Disconnected This Shift? No 06/06/24834 Collection Container Standard drainage 06/06/24834 Urine Description Yellow 06/06/24834 Output (mL) 1000 mL 06/06/24 1300 Number of days: 4 Peripheral Line Right;Upper 20 Gauge (Active) Status Capped/Locked;Flushes easily;Cap changed 06/06/24799 Tubing Changed N/A 06/06/24799 Phlebitis Scale 0 06/06/24799 Infiltration Scale 0 06/06/24799 Site Description (Other) Without redness, swelling or drainage 06/06/24799 Site Intervention Flushed 06/06/24799 Dressing Assessment Dressing clean, dry, and intact 06/06/24799 Dressing Intervention None required 06/06/24799 Number of days: 5 Peripheral Line Left;Lower Arm 22 Gauge (Active) Status Capped/Locked;Flushes easily;Cap changed 06/06/24799 Tubing Changed N/A 06/06/24799 Phlebitis Scale 0 06/06/24799 Infiltration Scale 0 06/06/24799 Site Description (Other) Without redness, swelling or drainage 06/06/24799 Site Intervention Flushed 06/06/24799 Dressing Assessment Dressing clean, dry, and intact 06/06/24799 Dressing Intervention None required 06/06/24799 Dressing Change Due 06/12/24 06/05/24 1055 Number of days: 1 * Angle Riggs RN - 06/06/2024 2:39 PM EST business services analyst note Name: Markus Wharton Procedure: Image Guided Pubic Fluid Collection Aspiration Patient ID band checked using two identifiers. Patient assisted into the supine position on the procedure table with comfort measures intact and safety strap in place. Hemodynamic monitoring initiated. Patient denies any complaints at current time. RT staff preparing patient for procedure. 2:41 PM Glass Ribbon Machine Operator imaging obtained. Reevaluation statement: RN received verbal confirmation that the patient was reevaluated by Dr. Esther Long immediately prior to the sedation at 3:00 PM. 3:00 PM 50 mcg Fentanyl and 1 mg Versed administered. 3:04 PM Timeout performed by Dr. Esther Long 3:04 PM Procedure started by Dr. Esther Long, Dr. Barcenas and Liban Giles, scrubbed RT. Ultrasound utilized for anatomical analysis of patient and access needle guidance. 1% buffered lidocaine being given at the pubic region. 3:04 PM Needle adjusted. Imaging obtained. 3:05 AM Needle adjusted. Imaging obtained. 3:07 PM Needle adjusted. Imaging obtained. 3:07 PM Needle adjusted. Imaging obtained. 3:09 PM 50 mcg Fentanyl administered. 3:10 PM Access obtained.15 mL fluid aspirated 3:14 PM Final imaging obtained. Area cleaned. Gauze and tegaderm dressing applied. Specimens placedin anerobic/aerobic vials and tubed to microbiology. All wires, catheters, sheaths and other devices have been inspected prior to the procedure for damage. This has been confirmed by the scrubbed RT and the operating physician. All items not intended to remain in the patient have been inspected, accounted for and have been removed from the patient atthe end of the procedure. This has been confirmed by the scrubbed RT and the operating physician. Pt did receive conscious sedation for their procedure, and was sedated from 3:00 PM to 3:21 PM. Total Medications Fentanyl: 100 mcg 1% buffered Lidocaine: 10 mL Versed: 1 mg Please see doctor's operative note for additional details. * Andra Moreno RN - 06/06/2024 8:52 AM EST INPATIENT TO INTERVENTIONAL RADIOLOGY (IR) HANDOFF COMMUNICATION NOTE [facility] [address] [address] Name: Markus Wharton Age: [age] year old Location: [facility] [id number]/A Date: 06/06/2024 Safety Concerns: Fall Risk Allergies: Fosamax [alendronate sodium], Misoprostol, Niaspan [niacin er (antihyperlipidemic)], Pollen, Pravastatin, Simvastatin, and Brent inhibitors Contrast Dye Allergy? no Allergy prepped? N/A Code Status: Full Code Isolation: none Report from: Andra Moreno RN at phone extension [phone] Patient arriving via: Bed Reason for SBAR handoff: Procedure Patient is alert and oriented and able to sign consent (if not, tooth cutter contact wheel and number): Yes Patient NPO: yes Patient NPO since: 0000 Patient wears CPAP, BiPAP, or oxygen overnight: no Patient has difficulty breathing when lying flat? no Emotional/Personal Anxiety? no Last as needed pain medication given at (time): N/A Situation/Background Admission date: 06/01/2024 Patient Service: Med [[id number]] Attending Provider: Frank Fleming MD Admitting diagnosis: Osteomyelitis (HCC) Miriam gangrene Chief Complaint: No chief complaint on file. 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 * Level of Care: Med Surg [3] Vital Signs: BP: 114/55 (06/06/24799) Temp: 36.6 °C (97.9 °F) (06/06/24799) Pulse: 74 (06/06/24799) Resp: 21 (06/06/24799) SpO2: 98 % (06/06/24799) Glucose (Bedside): 152 (06/06/24 0743) Weight: (!) 138.5 kg (305 lb 5.4 oz) (06/06/24 0500) Height: 188 cm (6' 2") (06/01/24 2315) Labs: Please see Lab Flowsheet for lab values. Lab comments: no Lines: Urethral Catheter Coude (Active) Site Assessment Skin intact 06/06/24834 Securement Method Leg strap 06/06/24834 Catheter secured to leg? Yes 06/06/24834 Catheter bag below bladder? Yes 06/06/24834 Has IUBC been removed? (If yes, ensure the order is discontinued.) No, chronic indwelling catheter 06/06/24834 Critical Patient Need for Hourly Urine Outputs with IUBC Shock or Mg++ infusion monitoring IUBC Tubing Disconnected This Shift? No 06/06/24834 Collection Container Standard drainage 06/06/24834 Urine Description Yellow 06/06/24834 Output (mL) 1200 mL 06/06/24699 Number of days: 4 Peripheral Line Right;Upper 20 Gauge (Active) Status Capped/Locked;Flushes easily;Cap changed 06/06/24799 Tubing Changed N/A 06/06/24799 Phlebitis Scale 0 06/06/24799 Infiltration Scale 0 06/06/24799 Site Description (Other) Without redness, swelling or drainage 06/06/24799 Site Intervention Flushed 06/06/24799 Dressing Assessment Dressing clean, dry, and intact 06/06/24799 Dressing Intervention None required 06/06/24799 Number of days: 5 Peripheral Line Left;Lower Arm 22 Gauge (Active) Status Capped/Locked;Flushes easily;Cap changed 06/06/24799 Tubing Changed N/A 06/06/24799 Phlebitis Scale 0 06/06/24799 Infiltration Scale 0 06/06/24799 Site Description (Other) Without redness, swelling or drainage 06/06/24799 Site Intervention Flushed 06/06/24799 Dressing Assessment Dressing clean, dry, and intact 06/06/24799 Dressing Intervention None required 06/06/24799 Dressing Change Due 06/12/24 06/05/24 1055 Number of days: 1 Fall Scale: Fall Score: 45 (06/06/24834) Fall Interventions: Ambulation assist device present;Bed at low level;Bed alarm on;Yellow armband applied/intact and on patient;Fall risk sign outside room;Floor free of clutter;Non-skid foot covering on;Walk path free of obstacles (06/06/24834) Neurological: Umer Coma Scale - For patients greater than two years old Eyes Open: Spontaneous (06/06/24834) Best Verbal Response: Verbally appropriate for age (06/06/24834) Best Motor Response: Obeys commands appropriate for age (06/06/24834) Coma Score: 15 (06/06/24834) Additional Neurological Information: no Respiratory: Respiratory WNL: X - Exceptions to WNL as documented below (06/06/24834) Cough: None (06/06/24834) Depth/Rhythm: Regular (06/06/24799) Dyspnea Occurance: None (06/06/24834) Effort: Unlabored (06/06/24834) Oxygen therapy/ Mechanical vent Supplemental O2 Delivery: Room Air, None (06/06/24799) O2 flow rate: 0 L/MIN (06/04/24 1500) O2 Device Skin Integrity : Skin unaffected (06/04/24799) Interventions: Tubing adjusted (06/04/24799) O2 flow rate: 0 L/MIN (06/04/24 1500) Additional Respiratory Information: no Cardiac: Cardiovascular WNL: X - Exceptions to WNL as documented below (06/06/24834) Heart Sounds: S1;S2 (06/06/24799) Rhythm: NSR (06/06/24834) SD interval: 0.19 seconds (06/06/24834) QRS: 0.09 seconds (06/06/24834) Extremities: +Sensation;Right;Left;Upper;Lower;[place];Warm (06/06/24834) Pulses Right: Dorsalis Pedis +;Palpable;Radial + (06/06/24834) Pulses Left: Dorsalis Pedis +;Palpable;Radial + (06/06/24834) Edema Location: Generalized (06/06/24834) Edema Assessment: +1 - Description (06/06/24834) Capillary Refill: 3 seconds (06/06/24834) Additional Cardiac Information: no GI/: GI WNL: WNL - within normal limits (06/06/24834) Abdomen: Rounded (06/06/24834) Additional GI/ Information: no Integumentary: Integumentary WNL: X - Exceptions to WNL as documented below (06/06/24834) Skin Description: Warm;Dry (06/06/24834) Skin Color: Mucus Membranes [place]ubinway (06/06/24834) Skin Variations: Other - Describe (see below) (06/06/24834) Isaias Score (auto-calculation): 13 (06/06/24834) Skin Breakdown (including Red, Non-Blanchable Areas) Present on Admission?: Yes (06/01/24 7709) Additional Integumentary Information: no Restraints: No orders of the defined types were placed in this encounter. * Hang Wren RN - 06/05/2024 5:57 AM EST Patient's bed was changed and the bed was zeroed prior to the patient being placed in the bed. The weight is much higher today than yesterday which is suspected to be a result of the new bed * Imani Webb RN - 06/04/2024 5:37 PM EDT Dual Licensed Skin Assessment completed by Imani Voss RN and Faviola oVss RN. The patient is/has a N/A Skin Breakdown (includes non blanchable erythema): Yes. Wound Type: Other, location moisture associated moisture to groin, open area to left and right buttock Wound Ostomy Nurse Notified: No- has already been notified Nursing interventions: zinc cream to buttocks, ordered citadel, turn and repo * Yarely Wade RN - 06/03/2024 8:00 PM EDT Dual Licensed Skin Assessment completed by Yarely Velázquez RN and Owen Landrum RN. The patient is/has a N/A Skin Breakdown (includes non blanchable erythema): Yes. Wound Type: Suspected pressure injury at bony prominence, location BL buttock Wound Ostomy Nurse Notified: No - care per ordered treatment Nursing interventions: Turn Q2, low air loss mattress, zinc moisture cream, elevate bony prominences, use of wedges. OTHER: Red panus, red groin, drainage from catheter site, scattered ecchymosis * Yarely Wade RN - 06/02/2024 9:00 PM EDT Dual Licensed Skin Assessment completed by Yarely Velázquez RN and Db Bray RN. The patient is/has a N/A Skin Breakdown (includes non blanchable erythema): Yes. Wound Type: Suspected pressure injury at bony prominence, location BL buttock Wound Ostomy Nurse Notified: No - care per ordered treatment Nursing interventions: Turn Q2, low air loss mattress, zinc moisture cream, elevate bony prominences. OTHER: Red panus, red groin, drainage from catheter site, scattered ecchymosis * Linda Ledesma RN - 06/02/2024 12:00 AM EDT Dual Licensed Skin Assessment completed by Linda Bullock RN and Eloisa Quintero RN. The patient is/has a N/A Skin Breakdown (includes non blanchable erythema): Yes. Wound Type: Suspected pressure injury at bony prominence, location sacrum Wound Ostomy Nurse Notified: Yes - notified via wound care protocol Nursing interventions: Q2 turns, moisture absorbent pads, zinc-barrier cream, skin care. Small, pin-point open area on R side of penis. Stage 3 open areas on medial R and L butt cheeks. Naubinway but blanchable heels. Naubinway panus area. Open, pink moisture associated area on R groin. documented in this encounter Miscellaneous Notes * Ancillary Progress Note - Irene Boateng RN - 06/10/2024 11:59 AM EST CARE MANAGEMENT - ADULT DISCHARGE NOTE [facility] [address] Name: Markus Wharton Location: [facility] Date: 06/10/2024 Time: 11:59 AM The following coordination of care and discharge plan has been coordinated with the care team, patient, family and/or caregiver according to the patients’ needs and preferences. Discharge Discharge Second Notice Important Message from Medicare delivered: Yes (06/10/24 1157) Date Delivered: 06/09/24 (06/10/24 115) Was Caregiver/Family/Facility contacted regarding discharge: Yes (06/10/24 115) Discharge Transportation: BLS (06/10/24 115) Date of scheduled discharge transportation: 06/10/24 (06/10/24 115) Time of scheduled discharge transportation: 1400 (06/10/24 115) Patient declined post-hospital transition of care recommendation: Senior Care Facility (06/10/24 115) Final Discharge Plan (Complete only at time of Discharge): Home with Services (06/10/24 115) Home Medical Care - Admitted Since 06/01/2024 Service Provider Services Address Phone Fax Patient Preferred Last Updated [facility] [address] [phone] -- Irene Boateng RN 06/09/2024 6222 Narrative: As per service, patient medically stable to discharge. Patient to discharge to home. Patient to be transported at 1400 via BLS due to patient needing assistance getting into home. Patient to be discharged on IV abx. Columba Childers at [facility] made aware. Per Columba, IV abx to be delivered to patient's home today. CM reached out to [facility] to make aware of patient's discharge. Able to see patient tomorrow. No other CM needs were identified. Patient instructed to reach out to CM with any questions or concerns. * Ancillary Progress Note - Irene Boateng RN - 06/09/2024 3:41 PM EST CARE MANAGEMENT - ADULT TRANSITION NOTE [facility] [address] Name: Markus Wharton Location: [facility] Date: 06/09/2024 Time: 3:42 PM Risk Stratification Risk Stratification Psycho Social / Medical Concerns Identified: Adjustment to illness/injury (06/02/24919) OBRA or OPTIONS needed for placement: No (06/02/24919) Readmission Risk Score: 16.41 (06/09/24 1201) AM-PAC Score With Stairs : 14 (06/07/24 1141) Caregiver Information Patient Contacts Name Relation Home Work Mobile Kenneth Wharton Adult Child [phone] Myla Mar Adult Child [phone] Transition of Care Checklist Transition of Care Checklist (aka Readmission Risk Score) Discharge Disposition: Home w/Home Health (06/09/241540) Home or Home w/Home Health: Moderate (12-17%) (06/09/241540) Narrative: Patient discussed at IDT rounds, and per chart review, patient medically stable for discharge. CM sent TT to Columba Childers at [facility] to make aware of potential discharge. CM submitted ride inRT for BLS due to patient's daughter unable to provide transport and in need of assistance getting patient into home. Ride not yet claimed. 1555 CM reached out to [facility] to provide update that patient will not discharge today. CM to update [facility] when patient discharges. Anticipated Transportation at Discharge: BLS Patient/Family Expectations: return home with [facility] Transition Planning Transition Planning Transition Plan/Considerations: Discussed at Interdisciplinary Team / Boost Rounds (06/09/241540) Repisodic Choice provided to patient: No (06/09/241540) Transition plan discussed with - Enter name and phone #: with service at IDt rounds (06/09/241540) Insurance Considerations: N/A (06/09/241540) Referral to Community Agency : N/A (06/09/241540) Post-Acute Care needs identified and Referrals Completed: N/A (06/09/241540) Additional Considerations: Care Management will continue to monitor and assist with discharge planning needs * Care Plan - Andra Moreno RN - 06/08/2024 3:27 PM EST Problem: Decreased Cardiac Output Goal: Patient will have improved cardiac output. Outcome: Progressing Problem: Alteration in Fluid Balance Goal: Patient will achieve & maintain optimal fluid balance. Outcome: Progressing Problem: Ineffective Breathing Pattern Goal: Patient will achieve & maintain effective breathing pattern. Outcome: Progressing Clinical Goal(s): Pt will be free from falls during this shift. (06/08/24 0800) Possible barriers to meeting goal(s)/advancing plan of care: Generalized weakness Stability of the patient: Moderately stable - low risk of patient condition declining or worsening Summary regarding today's goal(s): Met: No falls Recommendations: Continue current falls precautions. * Ancillary Progress Note - Melanie Chávez RDN - 06/08/2024 10:51 AM EST CLINICAL NUTRITION ADULT RISK ASSESSMENT [address] [address] Name: Markus Wharton Location: [facility] Date: 06/08/2024 Time: 10:52 AM This documentation was completed by talking to the patient and or by chart review the patient was not visually of physically seen. How patient was identified (select 2): Medical record number, date, and Name Markus Wharton is a 79 year old male being assessed for clinical nutrition risk related to follow-up and skin breakdown Primary diagnosis: Septic shock Other pertinent information: patient was contacted via remotely. Per patient appetite is good. Per I & O 100%. Discussed patients diet order and added supplements for pressure injuries. Patient was not drinking the milkshakes report to sweet. Likes the yogurt at breakfast. Reports using Boost glucose control at home, will continue as home regimen.Not certain weights are accurate: recommend using digital standing scale for accuracy of weights.Expecting to be d/c int he coming days. Encouraged the importance of nutrition and healing kevin protein and needs. Was not certain he had an opportunity to try the liqua america, will order for trail. Anthropometrics Measurements Admission weight (for dietitians): 123.4 kg 272 lb Height: 188 cm (6' 2") (06/01/242314) Weight: (!) 138.8 kg (306 lb) (06/08/24527) BMI: 34.91 (06/01/242314) Usual Body Weight or EDW for Dialysis Patients: per patient: 295- 300 lb depending on fluid and scales. Diet: Heart Healthy, 2 gm Sodium Previously followed diet: low sodium Food Allergies/Intolerances: None Oral Nutrition Supplement (ONS): Super Pudding Vanilla (188 kcals, 12g protein, 27.8 grams carbohydrate per 5.3oz) daily Milkshake, Vanilla (270 mL provides 319 calories, 7 grams protein, 35 grams carbohydrate) daily Pertinent medications/vitamins/minerals/supplements: B-12, colace, lasix, insulin, keegan log, senokot RISK FACTORS: Adult Energy Intake: No significant decrease Interpretation of Weight Change: Weight gain from admission weight 272 lb , change likely secondaryto fluid- on lasix. + 2 edema noted 06/07 in flowsheet. Skin: Compromise with potential to have nutrition-related implications Left/right buttocks - stage 3 pressure injury noted - red mild serosanguinous Skin damage- lateral penis - purulent moderate red moist NUTRITION RISK CATEGORY: Nutrition Risk Category: Low/Moderate (0-1 factors) Clinical Nutrition Recommendations: Diet: Changed nutritional supplement to Boost glucose control bid Added liqua america to trial NUTRITION INTERVENTION/PLAN: Orders: Oral nutrition supplement adjusted Boost Glucose Control (1 cup provides 190 calories, 16 grams protein, 16 grams carbohydrate) BID Added liqua america bid to try-30 mL LiquaCel BID (200 calories, 32 grams of protein, 40 mg of phosphorus, 20 mg of potassium) Weight- ordered using digital scale Will follow and adjust nutritional plan as medical condition requires. Please contact for change(s)in patient condition requiring earlier intervention. Melanie Chávez RDN,BILLIEN Clinical Dietitian II [facility] * Ancillary Progress Note - Casi Matsers RN - 06/08/2024 10:37 AM EST CARE MANAGEMENT - ADULT TRANSITION NOTE [facility] [address] Name: Markus Wharton Location: [facility] Date: 06/08/2024 Time: 10:37 AM Risk Stratification Risk Stratification Psycho Social / Medical Concerns Identified: Adjustment to illness/injury (06/02/24 0920) OBRA or OPTIONS needed for placement: No (06/02/24 0920) Readmission Risk Score: 20 (06/08/24 0801) AM-PAC Score With Stairs : 14 (06/07/24 1141) Caregiver Information Patient Contacts Name Relation Home Work Mobile Kenneth Wharton Adult Child [phone] Myla Mar Adult Child [phone] Transition of Care Checklist Transition of Care Checklist (aka Readmission Risk Score) Discharge Disposition: Home w/Home Health (06/07/241426) Home or Home w/Home Health: High (18-33%) (06/07/241426) Narrative: CM met with patient at bedside to discuss discharge planning. Discussed the option of snf for rehab and IV abx. Patient stated he lives with his daughter (who is [employer] machine operator) and MAHNAZ. Does not want to go to snf. Wants to return back home with [facility] like he had previously. Patient stated daughter can be taught IV abx. MISSY opened with [facility]. CM will continue to follow. 06/08- Awaiting PICC placement. CM reached out to [facility] as patient has used this HH in the past. HH agency currently reviewing and obtaining a start of care date. CM reached out to [facility] for IV antibiotic needs. 1520 CM spoke with patient's daughter and updated on status. CM spoke with [facility] and patient if discharged tomorrow should have a start of care for Thursday. Daughter also states that patient will have to come home via BLS as she is not able to provide transportation or able to assist getting the patient into the house. Syndrome Osteomyelitis Microbiology Corynebacterium species and Streptococcus species Antibiotic Vancomycin Dose per Pharmacy for Goal AUC 400-600 mg/L/hr End Date 07/13/24 Syndrome Osteomyelitis Microbiology N/A Antibiotic Ceftriaxone 2 g IV Q24 hours End Date 07/13/24 Vascular access: Remove intravascular access after completion of antibiotics Recommended followup imaging studies: Not applicable Anticipated Transportation at Discharge: tbd as patient states he will need ride Patient/Family Expectations: home Transition Planning Transition Planning Transition Plan/Considerations: Discussed at Interdisciplinary Team / Boost Rounds (06/07/241426) Repisodic Choice provided to patient: No (06/07/241426) Transition plan discussed with - Enter name and phone #: with patient at bedside (06/07/241426) Insurance Considerations: N/A (06/07/241426) Referral to Community Agency : N/A (06/07/241426) Post-Acute Care needs identified and Referrals Completed: N/A (06/07/241426) Additional Considerations: n/a Care Management will continue to monitor and assist with discharge planning needs * Care Plan - Carmen Nina RN - 06/08/2024 3:59 AM EST Clinical Goal(s): Pt will remain free from falls (06/07/241901) Possible barriers to meeting goal(s)/advancing plan of care: pain, limited mobility Stability of the patient: Moderately stable - low risk of patient condition declining or worsening Summary regarding today's goal(s): Met: pt remained free of falls Recommendations: Continue fall precaution, turn and repositioning * Care Plan - Cintia Moreno RN - 06/07/2024 3:16 PM EST Problem: Decreased Cardiac Output Goal: Patient will have improved cardiac output. Outcome: Progressing Problem: Alteration in Fluid Balance Goal: Patient will achieve & maintain optimal fluid balance. Outcome: Progressing Problem: Ineffective Breathing Pattern Goal: Patient will achieve & maintain effective breathing pattern. Outcome: Progressing Problem: Activity Intolerance & Impaired Mobility Goal: Patient will maintain optimal mobility & activity level. Outcome: Progressing Problem: Knowledge Deficit Goal: Patient & caregiver will demonstrate understanding. Outcome: Progressing Problem: Pain & Impaired Comfort Goal: Patient's pain & discomfort is manageable. Outcome: Progressing Problem: Safety & Risk for Injury Goal: Patient will remain free from injury. Outcome: Progressing Problem: Daily Care & Potential Self-Care Deficit Goal: Patient's daily care needs are met. Outcome: Progressing Problem: Risk for Impaired Physical Mobility Goal: Patient will maintain optimal mobility level. Outcome: Progressing Problem: Knowledge Deficit Goal: Patient & caregiver will demonstrate understanding. Outcome: Progressing Problem: Discharge Barriers Goal: Patient's discharge needs are met. Outcome: Progressing Problem: Actual & Potential for Impaired Skin Integrity Goal: Patient will maintain skin integrity. Outcome: Progressing Goal: Patient will maintain adequate nutritional intake. Outcome: Progressing Problem: Actual & Potential for Falls Goal: Patient will remain free of falls. Outcome: Progressing Problem: Infection Goal: Signs & symptoms of infection will be decreased or avoided. Outcome: Progressing Goal: Aseptic care of all invasive lines & tubes will be maintained. Outcome: Progressing Goal: Patient's body temperature will be maintained within normal range. Outcome: Progressing Goal: Patient will achieve & maintain fluid & electrolyte balance. Outcome: Progressing Clinical Goal(s): Patient will remain free from falls throughout shift (06/07/24 0915) Possible barriers to meeting goal(s)/advancing plan of care: altered mobility, weakness Stability of the patient: Moderately stable - low risk of patient condition declining or worsening Summary regarding today's goal(s): Met: patient remained free from falls Recommendations: continue with fall precautions * Ancillary Progress Note - Irene Boateng RN - 06/07/2024 2:29 PM EST CARE MANAGEMENT - ADULT TRANSITION NOTE [facility] [address] Name: Markus Wharton Location: [facility] Date: 06/07/2024 Time: 2:29 PM Risk Stratification Risk Stratification Psycho Social / Medical Concerns Identified: Adjustment to illness/injury (06/02/24919) OBRA or OPTIONS needed for placement: No (06/02/24919) Readmission Risk Score: 19.18 (06/07/24 1201) AM-PAC Score With Stairs : 14 (06/07/24 1141) Caregiver Information Patient Contacts Name Relation Home Work Mobile Kenneth Wharton Adult Child [phone] ZaidMyla kelley Adult Child [phone] Transition of Care Checklist Transition of Care Checklist (aka Readmission Risk Score) Discharge Disposition: Home w/Home Health (06/07/24 1427) Home or Home w/Home Health: High (18-33%) (06/07/241426) Narrative: CM met with patient at bedside to discuss discharge planning. Discussed the option of snf for rehab and IV abx. Patient stated he lives with his daughter (who is [employer] machine operator) and MAHNAZ. Does not want to go to snf. Wants to return back home with [facility] HH like he had previously. Patient stated daughter can be taught IV abx. MISSY opened with [facility] HH. CM will continue to follow. Anticipated Transportation at Discharge: needs ride home Patient/Family Expectations: return home with HH Transition Planning Transition Planning Transition Plan/Considerations: Discussed at Interdisciplinary Team / Boost Rounds (06/07/241426) Repisodic Choice provided to patient: No (06/07/241426) Transition plan discussed with - Enter name and phone #: with patient at bedside (06/07/241426) Insurance Considerations: N/A (06/07/241426) Referral to Community Agency : N/A (06/07/241426) Post-Acute Care needs identified and Referrals Completed: N/A (06/07/241426) Additional Considerations: Care Management will continue to monitor and assist with discharge planning needs * Ancillary Progress Note - Marah Hernandez, MARKETING AND PUBLIC RELATIONS MANAGER - 06/07/2024 11:43 AM EST PROGRESS NOTE - Physical Therapy [facility] [address] Name: Markus Wharton Location: [facility] Date: 06/07/2024 Time: 11:43 AM Markus Wharton is a/an 79 year old male. Patient Status: Inpatient Insurance: Payor: [employer] MED[employer]ARE ADVANTAGE Plan: [employer] MED[employer]ARE ADVANTAGE PPO Product Type: *No Product type* Patient Identified By: Name, ID Band and Date Diagnosis: osteomyelitis, sepsis (06/07/241140) Status of treatment: Treatment completed (06/07/24 114) Orders: PT evaluation and treatment (06/07/24 114) Weight Bearing Status: Weight bearing as tolerated (06/07/241140) Precautions: Falls;Ingram (06/07/241140) Total Treatment Time--free text: 16 (06/07/241140) Treatment Provided: Therapeutic Activities 16 minutes: bed mobility training transfer training Ambulation, exercises Pain: No complaints of pain P.T. Bed Mobility Supine-Sit: Moderate Assistance (x1 minimal assist x1) (06/07/241140) Transfers Sit-Stand: Minimal Assistance (x2 1st stand, minimal assist x1 2nd stand) (06/07/241140) Stand-Sit: Minimal Assistance (for 2 transfers) (06/07/241140) Ambulation: Distance ambulated (feet): 3' then 12' Assistive Device: Rolling walker Assist: Contact Guard Noted gait deviations: slow gait speed (06/07/241140) Balance Sit (Static): Fair (06/07/241140) Sit (Dynamic): Fair (06/07/241140) Stand (Static): (fair -) (06/07/241140) Stand (Dynamic): (fair -) (06/07/241140) Extremity Exercise Supine: Hip;Knee;Isometrics (06/07/241140) Hip : Bilateral LE;Adduction;Abduction;1 set of 10 (06/07/241140) Knee : Bilateral LE;Heel slide;1 set of 10 (06/07/241140) Isometrics: Bilateral LE;Quad sets;2 sets of 10 (06/07/241140) Topic of Education: Safety with mobility, Goals/plan of care, Use of assistive device, and Fall prevention Method of Education: Verbal discussion and explanation provided to pt: Alarm Status Patient positioned in: Chair (06/07/241140) With: Pressure pad alarm intact and functioning and call vieyra in reach (06/07/241140) Following session patient seated OOB in chair with chair alarm activated and cord plugged into callbell system. Patient Education Review of Precautions: Safety;Fall (06/07/241140) Safety Awareness: Patient verbalizes insight of current deficits;Patient demonstrates carryover of insight during functional tasks;Patient can communicate basic needs;Needs cueing supervision (06/07/241140) Preferred learning method: Combination (06/04/24 1216) Barriers to learning: Medical Status (06/04/241215) Method of Education: Verbalized to patient (06/04/241215) Assessment: Pt completed supine active assistive exercises to increase LE strength. He required moderate assist x1 minimal assist x1 for supine to sit. Once seated edge of bed he was able to support himself with supervision. He required minimal assist x2 to stand from the bed and minimal assist x1 to stand from the chair to a rolling walker. He ambulated 3' then 12' using a rolling walker requiring contact guard assist. Chair follow used for safety. Please consider post-acute care services which may include home health, assisted, outpatient therapy or inpatient rehabilitation. The level of care will be determined in collaboration with patient, family/caregiver and care team members. Deficits requiring P.T. treatment needs: Safety;Mobility;Balance;Weakness;Endurance;Lower extremitystrength (06/07/24 114) Equipment needs: Rolling walker (06/07/241140) Plan: Continue with current treatment plan established on evaluation. AM PAC Score with Stairs: 14 A portion of this AM-PAC assessment not scored based on functional assessment; rather clinical decision making utilized based on current findings and/or prior level of function. Please refer to future AM-PAC calculations of functional ability as they become available. * Ancillary Progress Note - Mona Woodard COTA/Keturah - 06/07/2024 9:30 AM EST PROGRESS NOTE - Occupational Therapy [facility] [address] Name: Markus Wharton Location: [facility] H672/A Date: 06/07/2024 Time: 12:22 PM Markus Wharton is a 79 year old male. Patient Status: Inpatient Insurance: Payor: [employer] MEDICARE ADVANTAGE Plan: [employer] MEDICARE ADVANTAGE PPO Product Type: *No Product type* Patient Identified By: Name, ID Band and Date Diagnosis: septic shock (06/07/24929) Status of treatment: Treatment completed (06/07/24929) Orders: OT evaluation and treatment (06/07/24929) Weight Bearing Status: Weight bearing as tolerated (06/07/24929) Precautions: Alarms;Falls;Ingram;Safety;Skin (06/07/24929) Total Treatment Time: 13 (06/07/24929) Pain: Patient has complaints of pain. Pain located in scrotum area. Observations Consciousness: Alert (06/07/24929) Orientation: Oriented times 4 (06/07/24929) Psychosocial: Patient can communicate basic needs (06/07/24929) Sitting posture: Forward head;Rounded shoulders (06/07/24929) Standing posture: Rounded shoulders;Forward head (06/07/24929) Safety awareness: The Patient can communicate basic needs.;Needs cueing supervision. (06/07/24929) Current Functional Status: Activities of Daily Living: Self Care Able to provide self care: No (06/07/24929) Toileting: (ingram) (06/07/24929) Dressing Lower Body: Dependent (for socks) (06/07/24929) Functional Ambulation Assistive Device: Rolling walker (06/07/24929) Distance in feet:: 12 (and 3) (06/07/24929) Level of Assistance: Contact Guard (06/07/24929) Bed Mobility Supine-Sit: Moderate Assistance (for upper body, Miin A for BLE) (06/07/24929) OT Transfers Sit-Stand: Minimal Assistance (x2 from bed) (06/07/24929) Stand-Sit: Minimal Assistance (06/07/24929) Bed-Chair: Minimal Assistance (06/07/24929) Balance Sit (Static): Fair (06/07/24929) Sit (Dynamic): Fair (06/07/24929) Stand (Static): Fair (-) (06/07/24929) Stand (Dynamic): Fair (-) (06/07/24929) Patient Education Education Topic: Role of OT;Plan of care goals (06/07/24929) Review of Precautions: Safety;Skin;Fall (06/07/24929) Method of Education: Verbalized to patient (06/07/24929) Education Provided to: Patient (06/07/24929) Response to Education: Receptive and agreeable to education;Needs further education (06/07/24929) Barriers to learning: Medical status (06/07/24929) Preferred learning method: Combination (06/07/24929) Alarm Status Patient positioned in: Chair (06/07/24929) With: Pressure pad alarm intact and functioning and call vieyra in reach (06/07/24929) Following session patient seated OOB in chair with chair alarm activated and cord plugged into callbell system. Treatment Provided: Therapeutic Activity: 13 minutes Deficits requiring O.T. treatment needs: ADL/self- care;Balance;Endurance;Functional mobility;Safety;Upper extremity strength;Weakness (06/07/24929) Assessment: Patient in bed upon arrival. Patient 2 assist for bed mobility Mod A for trunk/Min A for lower body, and Fair for sitting balance. Patient Dep to don socks in supine. Performed multiple sit<>stands from bed Min A x2 improving to Min A from chair, and functional mobility bed>chair and in room using a close chair follow using rolling walker contact guard assist, impacted by weakness and pain. Please consider post-acute care services which may include home health, assisted, outpatient therapy or inpatient rehabilitation. The level of care will be determined in collaboration with patient, family/caregiver and care team members. Plan: Continue with plan of care. Anticipated Frequency (on eval): (1 to 5 times per week) (06/04/24 1215) Equipment Equipment used in Therapy: Rolling walker (06/07/24929) AM-PAC Help From Another Person Eating Meals: A little (06/07/24929) Help From Another Person Taking Care of Personal Grooming: A little (06/07/24929) Help From Another Person To Put On/Take Off Upper Body Clothing: A little (06/07/24929) Help From Another Person To Put On/Take Off Lower Body Clothing: Total (06/07/24929) Help From Another Person Toileting: Total (06/07/24929) Help From Another Person Bathing: A lot (06/07/24929) OT AM-PAC Score: 13 (06/07/24929) OT AM-PAC t-Scale Score: 32.03 (06/07/24929) JH HLM (Highest Level of Mobility) Goal: Level 4 move to chair/commode (06/07/24 1141) A portion of this AM-PAC assessment not scored based on functional assessment , rather clinical decision making utilized based on current findings and/or prior level of function. Please refer to future AM-PAC calculations of functional ability as they become available. * Care Plan - Edith Garcia RN - 06/07/2024 4:20 AM EST Clinical Goal(s): Patient will remain free from further signs of infection this shift (06/06/241999) Possible barriers to meeting goal(s)/advancing plan of care: admitting diagnosis Stability of the patient: Moderately stable - low risk of patient condition declining or worsening Summary regarding today's goal(s): Met: Patient remained afebrile this shift, vitals stable Recommendations: Continue plan of care, call vieyra within reach, hourly rounding, bed alarms on * Ancillary Progress Note - Irene Boateng RN - 06/06/2024 2:49 PM EST CARE MANAGEMENT - ADULT TRANSITION NOTE [address] [address] Name: Markus Wharton Location: RADIOLOGY WAITING ROOM/IR Date: 06/06/2024 Time: 2:49 PM Risk Stratification Risk Stratification Psycho Social / Medical Concerns Identified: Adjustment to illness/injury (06/02/24919) OBRA or OPTIONS needed for placement: No (06/02/24919) Readmission Risk Score: 18.53 (06/06/24 1201) AM-PAC Score With Stairs : 11 (06/05/241999) Caregiver Information Patient Contacts Name Relation Home Work Mobile Kenneth Wharton Adult Child [phone] ZaidBang kelleya Adult Child [phone] Transition of Care Checklist Transition of Care Checklist (aka Readmission Risk Score) Discharge Disposition: Home (06/06/241447) Home or Home w/Home Health: High (18-33%) (06/06/241447) Narrative: Patient discussed at IDT rounds, and per chart review, patient not medically stable for discharge. ID following. Patient currently receiving IV Zosyn and IV vanco. Awaiting final recs. Plan for para-symphyseal aspiration with IR today. No anticipated discharge date. CM will continue to follow. Anticipated Transportation at Discharge: family Patient/Family Expectations: return home Transition Planning Transition Planning Transition Plan/Considerations: Discussed at Interdisciplinary Team / Boost Rounds (06/06/241447) Repisodic Choice provided to patient: No (06/06/241447) Transition plan discussed with - Enter name and phone #: with service at IDT rounds (06/06/241447) Insurance Considerations: N/A (06/06/241447) Referral to Community Agency : N/A (06/06/241447) Post-Acute Care needs identified and Referrals Completed: N/A (06/06/241447) Additional Considerations: Care Management will continue to monitor and assist with discharge planning needs * Postprocedure Note - Cheryl Barcenas MD - 06/06/2024 1:00 PM EST PROCEDURE NOTE - Interventional Radiology [address] [address] Name: Markus Wharton Location: RADIOLOGY WAITING ROOM/IR Date: 06/06/2024 Time: 2:32 PM PROCEDURE: Para-symphyseal abscess aspiration [employer] MEMBER: Dr. Esther Long and Dr. Cheryl Barcenas ASSISTANTS: RT Pablo ANESTHESIA: conscious sedation COMPLICATIONS: none SPECIMEN: fluid to laboratory ESTIMATED BLOOD LOSS: negligible FINDINGS: Para-symphyseal abscess aspirated under CT guidance. 15mL of cloudy fluid were collected and sent to lab for culture. See PACS imaging report for details. Plan: - Ordering provider to follow up culture results with patient. * Care Plan - Hang Wren RN - 06/06/2024 12:58 AM EST Clinical Goal(s): Patient will have no further skin breakdown (06/05/24 2300) Possible barriers to meeting goal(s)/advancing plan of care: Pressure injury Stability of the patient: Moderately unstable - medium risk of patient condition declining or worsening Summary regarding today's goal(s): Met: Patient reports improvement and the skin appears to be healing Recommendations: Continue to reposition and wound care * Care Plan - Goldie Cuevas RN - 06/05/2024 6:21 PM EST Clinical Goal(s): pt will sit out in chair today for at least 2 hrs (06/05/24 0800) Possible barriers to meeting goal(s)/advancing plan of care: pt refusal Stability of the patient: Moderately stable - low risk of patient condition declining or worsening Summary regarding today's goal(s): Not Met: pt refused to sit out in chair today Recommendations: encourage OOB * Care Plan - Hang Wren RN - 06/04/2024 11:55 PM EDT Clinical Goal(s): Patient will have no further skin breakdown (06/04/24 2300) Possible barriers to meeting goal(s)/advancing plan of care: Pressure injury Stability of the patient: Moderately unstable - medium risk of patient condition declining or worsening Summary regarding today's goal(s): Met: Skin condition appears to be improving Recommendations: Continue [facility] bed. Repositioning, and wound care * Progress Notes - Non-Billable - Mary Page MD - 06/03/2024 1:21 PM EDT Brief ID Attending Consult Note This is a 79 y/o male w/ hx of HTN, CKD 3A, RA, CAD, and prostate CA s/p EBRT (2022), currently on Lupron. The patient has had chronic ingram for past 2 months (last replaced on 05/30/24). 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 Also, noted to have malpositioned ingram w/ a portion of the catheter extending into the symphysis pubis and distended blader w/ moderate b/l hydroureteronephrosis. Transferred from [facility] for high level of care. The patient is currently doing well, feeling improvedafter exchange of the malpositioned ingram but still requires low dose of vasopressor. Necrotic fasciitis was deemed less likely but complicated pelvic infection as above. 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 I would switch linezolid to vancomycin iv for now. I strongly encourage to aspirate the fluid collection to obtain culture to guide abx therapy as the patient will likely need a long-term abx therapy for the suspected OM. The urine culture from [facility] showed Strep sp and C striatum but there were multiple other organisms as well, not identified. Will continue to follow. * Ancillary Progress Note - Annette Horn MSW - 06/03/2024 9:04 AM EDT CARE MANAGEMENT - ADULT TRANSITION NOTE [facility] [address] [address] Name: Markus Wharton Location: [facility] A455/A Date: 06/03/2024 Time: 9:04 AM Risk Stratification Risk Stratification Psycho Social / Medical Concerns Identified: Adjustment to illness/injury (06/02/24919) OBRA or OPTIONS needed for placement: No (06/02/24919) Readmission Risk Score: 17.74 (06/03/24 08) AM-PAC Score With Stairs : 6 (06/02/24799) Caregiver Information Patient Contacts Name Relation Home Work Mobile Kenneth Wharton Adult Child [phone] Myla Mar Adult Child [phone] Transition of Care Checklist Narrative: SW participated in IDTs. Per service, patient has had increasing pressor requirements, continues on IV abx, likely will hold PT/OT evals for today. Discharge disposition, needs and timeline remain unknown. SW to follow up with patient once PT/OT is able to work with him for OOB evals to better determine discharge needs. SW will continue to follow, address pt's evolving needs, and provide psychosocial support. Anticipated Transportation at Discharge: TBD Patient/Family Expectations: TBD Transition Planning Additional Considerations: -- Care Management will continue to monitor and assist with discharge planning needs * Diagnostic Clarification - Yaniv Ramirez MD - 06/03/2024 8:23 AM EDT The patient has been diagnosed with pressure ulcer to B/L buttocks stage 3. The patient has been diagnosed with anemia in CKD 3a. UTI with sepsis ARE associated with Ingram catheter. 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 Reported that he has been eating good prior to admission. He stated that he been consuming 3 meals daily MARKETING AND PUBLIC RELATIONS MANAGER. He does eat yogurt daily at breakfast and pudding at supper. No chewing/swallowing difficulty reported. Denies nausea, vomiting and abdominal discomfort. Patient reported 20 lbs wt loss past 2 months. As per EHR, 9.2% wt loss x 6 months noted. 9.1 % x 11 months noted. No significant wt changes noted per EHR. Stage 3 pressure injury noted per wound care. Discussed about adequate protein intake to support wound care needs. Discussed about food preferences. Patient agreeable to try Liquacel. He prefers to have yogurtat breakfast, milk shake at lunch and pudding at supper. Will add supplements when diet advanced. Will pend the order. Sent preferences to kitchen Monitor for diet advancement. Anthropometrics Measurements Admission weight (for dietitians): 123.4 kg (272 lb 0.8 oz) Height: 188 cm (6' 2") (06/01/24 2315) Weight: 123.4 kg (272 lb 0.8 oz) (06/02/24 0600) BMI: 34.91 (06/01/24 2315) Usual Body Weight or EDW for Dialysis Patients: 123 - 135 lbs per EHR, 122 - 131.8 kg per EHR Diet: NPO Previously followed diet: Low sodium Food Allergies/Intolerances: None Pertinent medications/vitamins/minerals/supplements: Isolyte, colace, folic acid 1 mg, novolog, senna, isolyte, sodium phosphate 30 mmol, RISK FACTORS: Adult Energy Intake: No significant decrease Interpretation of Weight Change: No recent/significant weight change Skin: Compromise with nutrition-related implications Left/right buttock - stage 3 pressure injuries 5cmL x 3cmW x 0.3cmD each NUTRITION RISK CATEGORY: Nutrition Risk Category: Low/Moderate (0-1 factors) Clinical Nutrition Recommendations: Diet: Advance diet when clinically feasible When diet advanced, will add Liquacel (1 oz, 100 calories, 16 grams protein, 20 mg phosphorus, 10 mg potassium) BID Milkshake, Chocolate (270 mL provides 331 calories, 7 grams protein, 41 grams carbohydrate) daily at lunch Super Pudding Chocolate (188 kcals, 13g protein, 25.6 grams carbohydrate per 5.3oz) at supper Bengali yogurt at breakfast. NUTRITION INTERVENTION/PLAN: Continue to monitor NPO/clear liquid status Will follow and adjust nutritional plan as medical condition requires. Please contact for change(s)in patient condition requiring earlier intervention. Greg Paniagua MS, ELIZABETH, LDN Clinical Dietitian [facility] [place] text * Ancillary Progress Note - Annette Horn MSW - 06/02/2024 9:23 AM EDT CARE MANAGEMENT - ADULT INITIAL SCREENING [address] [address] Name: Markus Wharton Location: [facility] A[facility]/A Date: 06/02/2024 Time: 9:23 AM Discussed patient with the interdisciplinary care team. This Demolition Worker performed a chart review and met with patient at bedside to complete admission screen and assessed needs for transition planning. The resident care director role and services were explained and emotional support was provided. Chief Complaint: No chief complaint on file. Prior Living Arrangements What was your living situation prior to admission/observation?: With Child (06/02/24919) Living Quarters: House (06/02/24919) Number of steps to enter living quarters:: 2-3 (06/02/24919) Do you have serious difficulty walking or climbing stairs? (5 years old or older): Yes (06/01/242342) History of falling: No (06/02/24) Prior Level of Functioning Describe the patient's ability prior to admission/observation to perform ADLs: Requires assistance (06/02/24919) Requires assistance with: Dressing;Toileting;Bathing;Grooming (06/01/242342) Describe the patient's mobility status prior to admission: Patient requires assistance with ambulation (06/02/24919) Patient uses assistive device: Yes (06/01/242342) If yes, choose:: Walker;Wheelchair (06/01/242342) Caregiver Information Patient Contacts Name Relation Home Work Mobile AkikoKenneth gallardo Adult Child [phone] Myla Mar Adult Child [phone] Risk Stratification/Psychosocial/Care Gaps Risk Stratification Psycho Social / Medical Concerns Identified: Adjustment to illness/injury (06/02/24919) OBRA or OPTIONS needed for placement: No (06/02/24919) Readmission Risk Score: 18.6 (06/02/24799) AM-PAC Score With Stairs : 6 (06/01/242314) Prior to Admission Services Services Prior to Admission MARKETING AND PUBLIC RELATIONS MANAGER Services (Services received within the last 30 days with exception, Psych within last two years): Home Health;Durable Medical Equipment (06/02/24921) List All Provider/Service Name: [facility] Home Health (06/02/24921) Agency contacted: No (06/02/24921) MARKETING AND PUBLIC RELATIONS MANAGER Durable Medical Equipment (DME) in home: Grab bars/Rails;Seat Lift Chair;Shower chair/bench;Walker Rolling;Wheelchair standard (06/02/24921) [place] Dept[employer] of Aging (PDA) Waiver Program: N/A (06/02/24921) MARKETING AND PUBLIC RELATIONS MANAGER Transportation (Services received within the last 30 days): Medical Transportation (06/02/24921) Outpatient Demolition Worker: No care preanalytics team lead to display Patient/Family Expectations: Prior to admission, patient was living at home with his daughter in a one-story house with 2-3 EM. Pt reports they are in the process of building a ramp to enter the home. At home, patient ambulates via wheelchair or with a rolling walker. Patient's daughter is home with patient 23/02 and assists with ADLs and ambulation as needed. Patient also reports that he has a lift chair at home and has a lift bed as well. Patient reports that the bathroom was remodeled to be handicap accessible and his daughter is able to assist him with bathing. Patient has had previous stays at [facility]. Patient recently discharged from [facility] services on 05/27. Patient also ment ions that he is active with mobile phlebotomy. Patient expresses that he transports via ambulance to all appointments. PT/OT to work with patient when able to help with disposition planning. For further screening information, please refer to the Care Management flow document. * Ancillary Progress Note - Emma Lantigua OTR/Keturah - 06/02/2024 9:16 AM EDT Markus Wharton 79 year old [id number] [facility] A455/A Occupational Therapy OT consult received. Per IDT rounds, pt is on medical hold at this time due to overall medical status. Will attempt to see pt as able/appropriate. Thank you. * Ancillary Progress Note - Monse Bellamy DPT - 06/02/2024 9:13 AM EDT Markus Wharton [id number] [facility] A455/A 79 year old PHYSICAL THERAPY PT consult received. Per IDT rounds, pt is on medical hold at this time due to overall medical status. Will attempt to see pt as able/appropriate. * Progress Notes - Non-Billable - Cleo Rausch MD - 06/02/2024 7:39 AM EDT Urology Brief Progress Note Patient was seen and evaluated this morning for rounds. He is feeling well with no significant suprapubic pain, groin pain, hip pain, perineal pain. He was on 10 norepinephrine, vitals stable. Exam BP 114/65 | Pulse 74 | Temp 36.5 °C (97.7 °F) (Tympanic) | Resp 15 | Ht 1.88 m (6' 2") | Wt 123.4kg (272 lb 0.8 oz) | SpO2 91% | BMI 34.93 kg/m² | BSA 2.54 m² Constitutional: well nourished, well developed, no acute distress CV: normal rate, normal rhythm Chest: normal respiratory effort Abdomen: soft, NTTP, ND Ext: no edema Neuro: alert, oriented to person, place, and time, motor and sensation grossly intact : No suprapubic, groin, perineal, thigh erythema or crepitus. No tenderness to palpation Testicles are fully descended and atrophic. Ingram in place draining clear yellow urine Assessment: 71-year-old with a history of prostate cancer and radiation treatment. 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 Continue Ingram drainage - definitive treatment for puboprostatic fistula is a urinary diversion procedure which patient mayconsider down the line * Respiratory Progress Note - Nick Archuleta, ARTIST AND REPERTOIRE MANAGER - 06/02/2024 2:01 AM EDT PATIENT DRIVEN PROTOCOL - Respiratory Care Services [address] [address] Name: Markus Wharton Location: [facility] Date: 06/02/2024 Time: 2:01 AM Patient Driven Protocol Summary: Initial evaluation performed. This Treatment Plan and medications will be reviewed by the Primary Care Team for any contraindications. Respiratory Care Treatment Plan Pulmonary Volume Expansion Therapy: Incentive Spirometry PRN to prevent or treat alveolar consolidation and atelectasis. . Secretion Management Treatment: Flutter TherapyPRN to enhance mobilization of secretions and prevent or treat alveolar consolidation and atelectasis. . The patient will be re-evaluated: No re-evaluation needed. Indications for treatment met. The Triage Level is: (Assessment Score = 0 - 5) Level 5. Triage Level Definitions: Level 1 Severe Respiratory/Airway Compromise Level 2 Moderate Respiratory/Airway Compromise or high risk for pulmonary complications Level 3 Mild Respiratory/Airway Compromise or moderate risk for pulmonary complications Level 4 Episodic Respiratory/Airway Compromise or low risk for pulmonary complications Level 5 No Respiratory/Airway Compromise Triage 1 Triage 2 Triage 3 Triage 4 Triage 5 greater than 20 16 - 20 11 - 15 6 - 10 0 - 5 Medical Record Assessment Clinical Findings Pulmonary Status: 0 - No Smoking or quit greater than 10 years ago Surgical Status: 0 - No Surgical History Chest X-Ray: 0 - Not Performed or performed greater than 3 days ago Assessment Score: 0 Patient Assessment Clinical Findings Respiratory Pattern: 0 - RR 12 - 20; Patient only gets breathless with strenuous exercise. Breath Sounds: 0 - Clear to auscultation Cough Effectiveness: 0 - Strong non-productive Sputum Production: 0 - No sputum production Level of Activity: 2 - Temporarily non-ambulatory O2 needed to keep SpO2 greater than or equal to 92%: 0 - Room Air Assessment Score: 2 Total Assessment Score: 2 Breath Sounds: Inspiratory and expiratory clear bilaterally.. Cough and Sputum: An effective cough produced no sputum... CXR: n/a. Vital Signs: Resp: 23 (06/02/24 0100) Pulse: 87 (06/02/24 0100) Temp: 37.7 °C (99.9 °F) (06/02/24 0000) BP: 105/64 (06/02/24 0100) SpO2: 97 % (06/02/24 0100) PFT: Minimal Predicted IC: 1.25 L. Inspiratory capacity: 2.0L. Primary Service: Critical Care [facility]. 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 Furosemide 20 MG Oral Tablet (Lasix) Take 1 Tablet by mouth in the morning and 1 Tablet before bedtime. Metoprolol Succinate ER 25 MG Oral Tablet Extended Release 24 Hour (toPROL XL) Take 1 Tablet by mouth in the morning and 1 Tablet before bedtime. Urea 15 GM Oral Packet (Ure-Na) Take 15 g by mouth in the morning and 15 g before bedtime. Albuterol Sulfate HFA 108 (90 Base) MCG/ACT Inhalation Aerosol Solution Inhale 1 Puff by mouth every 6 hours as needed for Wheezing. Melatonin 3 MG Oral Tablet Take 2 Tablets by mouth at bedtime. Rosuvastatin Calcium 5 MG Oral Tablet (Crestor) TAKE 1 TABLET BY MOUTH EVERY DAY IN THE MORNING Losartan Potassium 25 MG Oral Tablet (Cozaar) One half tablet by mouth daily Methotrexate Sodium 2.5 MG Oral Tablet TAKE 5 TABLETS BY MOUTH ONCE WEEKLY Tamsulosin HCl 0.4 MG Oral Capsule (Flomax) TAKE 1 CAPSULE BY MOUTH EVERY MORNING OneTouch Verio In Vitro Strip (Glucose Blood) Type 2 diabetes, check blood sugars 2 times a day, kostas and pm. Folic Acid 1 MG Oral Tablet TAKE 1 TABLET BY MOUTH EVERY DAY IN THE MORNING Clopidogrel Bisulfate 75 MG Oral Tablet (Plavix) Take 1 Tablet by mouth in the morning. Magnesium Oxide -Mg Supplement 400 (240 Mg) MG Oral Tablet (Mag-Ox) Take 1 Tablet by mouth in the morning and 1 Tablet before bedtime. Patient taking differently: Take 1 Tablet by mouth every night at bedtime. Acetaminophen 325 MG Oral Tablet (Tylenol) 2 Tablets. ASPIR-81 81 MG PO TBEC 1 TABLET DAILY . documented in this encounter Plan of Treatment Upcoming Encounters Date Type Department Care Team (Late st Contact Info) Description 06/20/2024 11:10 AM EST Office Visit [facility] [address] [place] [phone] Rhianna Huitron DO [address] [facility] [phone] 06/27/2024 2:30 PM EST Office Visit Hematology/Oncology [facility] [address] [phone] Phillip, Korin Erin, DAY HABILITATION SPECIALIST[address] [address] 06/28/2024 2:15 PM EST Procedure Only Urology, [facility] [address] [place] [address] Vinay Sexton MD [address] [place] [address] 07/07/2024 10:20 AM EST Office Visit Infectious Disease, [address] [phone] Mona Bland MD [address] [place] [phone] 09/08/2024 3:40 PM EST Office Visit Nephrology, [address] [address] Bryson Ellis MD [address] [place] [address] 10/17/2024 10:30 AM EDT Office Visit Cardiology, [facility] [address] [facility] [place] [address] Dmitri Greenfield, [address] [facility] [address] 03/21/2025 11:45 AM EDT Telemedicine Urology, [facility] [address] [facility] [place] [address] Vinay Sexton MD [address] [place] [address] Pending Results Name Type Priority Associated Diagnoses Date /Time IR ASPIRATION ABSCESS/COLLECTION Medical Imaging Routine 06/06/2024 3: 22 PM EST CULTURE, WOUND, DEEP, AEROBIC AND ANAEROBIC Lab Routine 06/06/2024 3:11 PM EST Scheduled Orders Name Type Priority Associated Diagnoses Orde r Schedule IR ASPIRATION ABSCESS/COLLECTION Medical Imaging Routine One Time for 1 Occurrences starting 06/04/2024 until 06/04/2024 EXTERNAL EKG 8 TO 15 DAYS HOME ENROLLMENT Holter Routine Heart failure (HCC) Expected: 06/10/2024 (Approximate), Expires: 06/09/2025 Scheduled Procedures Name Priority Associated Diagnoses Date/Ti [...] Additional history exists CKD PHOS USE SMARTSET 10674 06/06/202511/2023, 06/05/2024, 06/04/2024, Additional history exists CKD HGB USE SMARTSET 59947 06/08/202506/08, 06/08/2024, 06/06/2024, Additional history exists DTap/Tdap [...] D LEVEL ONCE IN A LIFETIME-USE SMARTSET# 17504 Completed 03/21/2024, 12/25/2023, 05/27/2021, Additional history exists [...] Procedure Name Priority Date/Time Associated Diagnosis Comments GLUCOSE METER, POINT OF CARE [facility] 06/10/2024 11:27 AM EST GLUCOSE METER, POINT OF CARE [facility] 06/10/2024 7:49 AM EST GLUCOSE METER, POINT OF CARE [facility] 06/09/2024 8:29 PM EST GLUCOSE METER, POINT OF CARE [facility] 06/09/2024 4:48 PM EST GLUCOSE METER, POINT OF CARE [facility] 06/09/2024 11:35 AM EST GLUCOSE METER, POINT OF CARE [facility] 06/09/2024 7:40 AM EST VANCOMYCIN RANDOM Timed 06/09/2024 6:00 AM EST GLUCOSE METER, POINT OF CARE [facility] 06/08/2024 9:17 PM EST GLUCOSE METER, POINT OF CARE [facility] 06/08/2024 4:37 PM EST ANE [facility] CENTRAL LINE Routine 06/08/2024 3:46 PM EST GLUCOSE METER, POINT OF CARE [facility] 06/08/2024 11:27 AM EST DIFFERENTIAL, AUTOMATED Routine 06/08/2024 9:15 AM EST BASIC METABOLIC PANEL Routine 06/08/2024 9:15 AM EST CBC Routine 06/08/2024 9:15 AM EST CBC Routine 06/08/2024 9:15 AM EST GLUCOSE METER, POINT OF CARE [facility] 06/08/2024 7:41 AM EST GLUCOSE METER, POINT OF CARE [facility] 06/07/2024 8:40 PM EST GLUCOSE METER, POINT OF CARE [facility] 06/07/2024 4:16 PM EST GLUCOSE METER, POINT OF CARE [facility] 06/07/2024 11:42 AM EST GLUCOSE METER, POINT OF CARE [facility] 06/07/2024 7:44 AM EST GLUCOSE METER, POINT OF CARE [facility] 06/06/2024 9:33 PM EST GLUCOSE METER, POINT OF CARE [facility] 06/06/2024 4:55 PM EST IR ASPIRATION ABSCESS/COLLECTION Routine 06/06/2024 3:22 PM EST Procedure Note - Esther Long MD / Cheryl Barcenas MD - 06/06/2024 3:22 PM ESTThis note is in progress. PROCEDURE: CT guided parasymphyseal abscess aspiration. 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 ATTENDING (OPERATING PHYSICIAN): Esther Long MD SCRUBBED RESIDENT (OPERATING PHYSICIAN): Dr. Cheryl Barcenas SUPPORTING PROVIDER (HUNTER TRAPPER): RT Pablo. CONSENT: After a detailed discussion of the procedure, risks, benefits andalternative treatment options, informed consent was obtained. TIME OUT: A time out procedure was performed. The patient's identificationwas verified. Informed consent with agreement of procedure, site andposition was obtained. All necessary equipment was available prior toprocedure. CONTRAST: No contrast was administered. COMPLICATIONS: None. ANESTHESIA: Local lidocaine. IV Versed. IV Fentanyl. SEDATION TIME: Start to end: 3:00 p.m. to 3:21 p.m. qualified nursesedation observer Angle Riggs RN. MEDICATIONS: See MAR PROCEDURE DESCRIPTION: After survey CT images of the lower abdomen andpelvis were performed, the collection in the para-pubic symphyseal abscesswas studied. Then the access site was selected in the suprapubic regionand the site was prepped and draped in the usual sterile fashion. The skinand deep soft tissues were anesthetized and using image guidance, [id number] cannulated needle was inserted into the collection. [id number] mL of pus was removed, placed in empty vials and sent to microbiology.The access was removed and the site was dressed. The procedure was performed under the personal supervision of Dr. Crockett who was present for the entire procedure. FINDINGS: Survey CT images demonstrate para-pubic symphyseal abscess. Furtherimaging shows that the needle is in the collection. No complication notedon post aspiration imaging. IMPRESSION IMPRESSION: Successful CT-guided percutaneous aspiration in the parasymphysealabscess. PLAN: Follow-up of culture results and appropriate management per primaryteam. CULTURE, WOUND, DEEP, AEROBIC AND ANAEROBIC Routine 06/06/2024 3:11 PM EST GLUCOSE METER, POINT OF CARE [facility] 06/06/2024 11:38 AM EST GLUCOSE METER, POINT OF CARE [facility] 06/06/2024 7:42 AM EST VANCOMYCIN RANDOM Timed 06/06/2024 6:22 AM EST BASIC METABOLIC PANEL Routine 06/06/2024 6:22 AM EST PHOSPHORUS Routine 06/06/2024 6:22 AM EST CBC Routine 06/06/2024 6:22 AM EST MAGNESIUM Routine 06/06/2024 6:22 AM EST GLUCOSE METER, POINT OF CARE [facility] 06/05/2024 9:11 PM EST GLUCOSE METER, POINT OF CARE [facility] 06/05/2024 4:51 PM EST GLUCOSE METER, POINT OF CARE [facility] 06/05/2024 11:56 AM EST GLUCOSE METER, POINT OF CARE [facility] 06/05/2024 7:50 AM EST BASIC METABOLIC PANEL Routine 06/05/2024 7:32 AM EST PHOSPHORUS Routine 06/05/2024 7:32 AM EST CALCIUM, IONIZED Routine 06/05/2024 7:32 AM EST CBC Routine 06/05/2024 7:32 AM EST MAGNESIUM Routine 06/05/2024 7:32 AM EST GLUCOSE METER, POINT OF CARE [facility] 06/04/2024 8:59 PM EDT GLUCOSE METER, POINT OF CARE [facility] 06/04/2024 4:39 PM EDT CBC STAT 06/04/2024 1:10 PM EDT GLUCOSE METER, POINT OF CARE [facility] 06/04/2024 11:49 AM EDT TRANSFUSE PACKED RED BLOOD CELLS Routine 06/04/2024 8:24 AM EDT HC COMPATIBILITY ELECTRONIC CROSSMATCH Routine 06/04/2024 6:15 AM EDT ABO/RH STAT 06/04/2024 6:15 AM EDT TYPE AND SCREEN STAT 06/04/2024 6:15 AM EDT BASIC METABOLIC PANEL Routine 06/04/2024 5:37 AM EDT PHOSPHORUS Routine 06/04/2024 5:37 AM EDT CALCIUM, IONIZED Routine 06/04/2024 5:37 AM EDT CBC Routine 06/04/2024 5:37 AM EDT MAGNESIUM Routine 06/04/2024 5:37 AM EDT GLUCOSE METER, POINT OF CARE [facility] 06/04/2024 5:36 AM EDT GLUCOSE METER, POINT OF CARE [facility] 06/03/2024 11:46 PM EDT GLUCOSE METER, POINT OF CARE [facility] 06/03/2024 6:19 PM EDT BASIC METABOLIC PANEL STAT 06/03/2024 2:02 PM EDT GLUCOSE METER, POINT OF CARE [facility] 06/03/2024 12:07 PM EDT ECHO, COMPLETE (2D), TRANS-THORACIC STAT 06/03/2024 8:59 AM EDT Heart failure (HCC) BASIC METABOLIC PANEL Routine 06/03/2024 5:30 AM EDT PHOSPHORUS Routine 06/03/2024 5:30 AM EDT CALCIUM, IONIZED Routine 06/03/2024 5:30 AM EDT CBC Routine 06/03/2024 5:30 AM EDT MAGNESIUM Routine 06/03/2024 5:30 AM EDT GLUCOSE METER, POINT OF CARE [facility] 06/03/2024 5:29 AM EDT GLUCOSE METER, POINT OF CARE [facility] 06/03/2024 12:01 AM EDT GLUCOSE METER, POINT OF CARE [facility] 06/02/2024 5:59 PM EDT HC INSERT CATHETER ARTERY Routine 06/02/2024 5:09 PM EDT Septic shock (HCC) SD ARTL CATHJ/CANNULJ MNTR/TRANSFUSION SPX PRQ Routine 06/02/2024 5:09 PM EDT Septic shock (HCC) GLUCOSE METER, POINT OF CARE [facility] 06/02/2024 11:25 AM EDT BASIC METABOLIC PANEL Routine 06/02/2024 11:11 AM EDT TROPONIN T, HIGH SENSITIVITY Routine 06/02/2024 5:42 AM EDT HEMOGLOBIN A1C Routine 06/02/2024 5:42 AM EDT BNP (NT-PROBNP) Add-on 06/02/2024 5:42 AM EDT BASIC METABOLIC PANEL Routine 06/02/2024 5:42 AM EDT PHOSPHORUS Add-on 06/02/2024 5:42 AM EDT CBC Routine 06/02/2024 5:42 AM EDT MAGNESIUM Add-on 06/02/2024 5:42 AM EDT GLUCOSE METER, POINT OF CARE [facility] 06/02/2024 5:37 AM EDT GLUCOSE METER, POINT OF CARE [facility] 06/02/2024 1:51 AM EDT URINALYSIS, REFLEX TO CULTURE Routine 06/02/2024 1:39 AM EDT URINALYSIS, REFLEX TO CULTURE (CUP ONLY) Routine 06/02/2024 1:39 AM EDT URINALYSIS, REFLEX TO CULTURE (NOT FOR NEUTROPENIC PATIENTS) Routine 06/02/2024 1:39 AM EDT SODIUM, RANDOM URINE STAT 06/02/2024 1:39 AM EDT OSMOLALITY, URINE Routine 06/02/2024 1:39 AM EDT MRSA SCREEN, PCR Routine 06/02/2024 12:38 AM EDT CULTURE, BLOOD Routine 06/02/2024 12:15 AM EDT BASIC METABOLIC PANEL Routine 06/02/2024 12:06 AM EDT OSMOLALITY, SERUM STAT 06/02/2024 12:06 AM EDT CULTURE, BLOOD Routine 06/02/2024 12:06 AM EDT CALCIUM, IONIZED, WHOLE BLOOD STAT 06/01/2024 11:24 PM EDT TROPONIN T, HIGH SENSITIVITY Add-on 06/01/2024 11:23 PM EDT CRP (INFLAMMATORY MARKER) STAT 06/01/2024 11:23 PM EDT HEPATIC FUNCTION PANEL STAT 06/01/2024 11:23 PM EDT BASIC METABOLIC PANEL STAT 06/01/2024 11:23 PM EDT PHOSPHORUS STAT 06/01/2024 11:23 PM EDT LACTATE STAT 06/01/2024 11:23 PM EDT CBC STAT 06/01/2024 11:23 PM EDT MAGNESIUM STAT 06/01/2024 11:23 PM EDT documented in this encounter Results * (ABNORMAL) GLUCOSE METER, POINT OF CARE (06/10/2024 11:27 AM EST) GLUCOSE - POCT 124(H) 70 - 120 mg/dL 06/10/2024 12:32 PM EST [email or web address] Blood Whole blood specimen / Unknown 06/10/2024 11:27 AM EST 06/10/2024 12:32 PM EST us August Hebert MD LAB POINT OF CARE TE ST DOCKED DEVICE UNSOLICITED RESULTS Final Result [facility] [address] [place] [address] * GLUCOSE METER, POINT OF CARE (06/10/2024 7:49 AM EST) GLUCOSE - POCT 120 70 - 120 mg/dL 06/10/2024 9:58 AM EST [email or web address] Blood Whole blood specimen / Unknown 06/10/2024 7:49 AM EST 06/10/2024 9:58 AM EST us August Hebert MD LAB POINT OF CARE TE ST DOCKED DEVICE UNSOLICITED RESULTS Final Result [facility] [address] [place] [address] * (ABNORMAL) GLUCOSE METER, POINT OF CARE (06/09/2024 8:29 PM EST) GLUCOSE - POCT 128(H) 70 - 120 mg/dL 06/09/2024 8:37 PM EST [email or web address] Blood Whole blood specimen / Unknown 06/09/2024 8:29 PM EST 06/09/2024 8:36 PM EST us August Hebert MD LAB POINT OF CARE TE ST DOCKED DEVICE UNSOLICITED RESULTS Final Result [facility] [address] [place] [address] * GLUCOSE METER, POINT OF CARE (06/09/2024 4:48 PM EST) GLUCOSE - POCT 106 70 - 120 mg/dL 06/09/2024 6:02 PM EST [email or web address] Blood Whole blood specimen / Unknown 06/09/2024 4:48 PM EST 06/09/2024 6:02 PM EST us August Hebert MD LAB POINT OF CARE TE ST DOCKED DEVICE UNSOLICITED RESULTS Final Result Performing Organization Address City/[facility]/ZIP Co de Phone Number [facility] [address] [place] [address] * GLUCOSE METER, POINT OF CARE (06/09/2024 11:35 AM EST) GLUCOSE - POCT 111 70 - 120 mg/dL 06/09/2024 12:11 PM EST [email or web address] Blood Whole blood specimen / Unknown 06/09/2024 11:35 AM EST 06/09/2024 12:11 PM EST us August Hebert MD LAB POINT OF CARE TE ST DOCKED DEVICE UNSOLICITED RESULTS Final Result [facility] [address] [place] [address] * GLUCOSE METER, POINT OF CARE (06/09/2024 7:40 AM EST) GLUCOSE - POCT 120 70 - 120 mg/dL 06/09/2024 8:21 AM EST [email or web address] Blood Whole blood specimen / Unknown 06/09/2024 7:40 AM EST 06/09/2024 8:21 AM EST us August Hebert MD LAB POINT OF CARE TE ST DOCKED DEVICE UNSOLICITED RESULTS Final Result [facility] [address] [place] [address] * VANCOMYCIN RANDOM (06/09/2024 6:00 AM EST) Vancomycin Random 21.2 10.0 - 40.0 ug/mL 06/09/2024 7:23 AM EST [facility] Blood Venous blood specimen / Unknown Venipuncture / Unknown 06/09/2024 6:00 AM EST 06/09/2024 6:47 AM EST us Frank Fleming MD LAB BLOOD ORDERABLES Final Result [facility] [address] [place] [address] * GLUCOSE METER, POINT OF CARE (06/08/2024 9:17 PM EST) GLUCOSE - POCT 119 70 - 120 mg/dL 06/09/2024 4:46 AM EST [email or web address] Blood Whole blood specimen / Unknown 06/08/2024 9:17 PM EST 06/09/2024 4:46 AM EST us August Hebert MD LAB POINT OF CARE TE ST DOCKED DEVICE UNSOLICITED RESULTS Final Result [facility] [address] [place] [address] * GLUCOSE METER, POINT OF CARE (06/08/2024 4:37 PM EST) GLUCOSE - POCT 111 70 - 120 mg/dL 06/09/2024 4:47 AM EST [email or web address] Blood Whole blood specimen / Unknown 06/08/2024 4:37 PM EST 06/09/2024 4:47 AM EST August Hebert MD LAB POINT OF CARE TE ST DOCKED DEVICE UNSOLICITED RESULTS Final Result [facility] [address] [place] [address] * PICC insertion (06/08/2024 3:46 PM EST) Narrative Trudi Duron RN - 06/08/2024 3:46 PM EST Trudi Duron RN 06/08/2024 3:50 PM PICC insertion General Information and Staff: Performed by: Trudi Duron RN Assisted by: Clemencia Dee RN Procedure Date/Time: 06/08/2024 2:50 PM Patient Location: Med/Surg Indication: terminal press operator vascular access Patient identity confirmed: Verbally with patient and arm band Verbal confirmation: Name, date of and MRN Verbal consent obtained: Yes Written consent obtained: Yes Written consent obtained as part of Anesthesia consent: No Consent given by: Patient Understanding of procedure being performed: Yes Understanding of procedure matches verbalized consent: Yes Procedure consent matches procedure scheduled: Yes Allergies reviewed: Yes Site marked: yes Verify correct position: Yes Radiology Studies available/reviewed: n/a Relevant Lab Results available/reviewed: yes Required items available: yes Other healthcare professional(s) verbalize(s) agreement with time out: Yes Name(s): Clemencia Dee RN Time out: Immediately prior to the procedure a time out was completed Anticoagulation therapy: Yes Medication: Enoxaparin (Lovenox) Procedure Detail: Sterility Preparation: mask worn, sterile gloves worn, cap worn, sterile sheet used, sterile gown worn and full body drape Provider Hand Hygiene: alcohol-based hand rub Medical Reason for Not Performing Maximal Sterile Barrier Technique: No Placement conditions: Elective Patient Position: Supine Prep: Chlorhexidine Local Anesthetic Used: Yes Catheter Type: Power PICC PICC Laterality: Right and Upper PICC Site: Arm PICC Vessel: Basilic Catheter size: 3F Catheter Total Length (cm): 43 Catheter Internal Length (cm): 41 Catheter External Length (cm): 2 Lot Number: [id number] Number of Lumens: Single lumen Oximetric Catheter?: No Number of Needle Passes: 1 Placement: target vein identified, needle advanced into vein and blood aspirated and guidewire advanced into vein Radiologic Support with Sterile Technique: ultrasound guidance used Sterile gel and probe cover used for ultrasound?: Yes Intravenous Verification: verified by ultrasound and venous blood return Outcomes/Complications: patient tolerated procedure well with no complications Estimated blood loss (mL): Minimal PA Catheter Placed?: No Post Insertion: Post Insertion Details: all ports aspirated, all ports flushed easily, guidewire was removed, examined and appears intact and dressing was applied Site cleansed: Chlorhexidine Line secured with: Adhesive Securement Device and Tissue Adhesive Dressing applied: Gel Chlorhexidine Gluconate and Occlusive Tip Confirmation: Tip Confirmation System Tip Location: SVC and Line Ok to use Attestation: Attestation: I personally performed the procedure myself Additional Comments: Prior to insertion both guide wire and PICC Line wire inspected and found to be intact. Upon completion of procedure again both wires inspected and found to be intact (Guide wire measuring 50.25cm in total and completely intact). All witnessed by myself and my PICC Assist. us August Hebert MD ANESTHESIA Final Result * GLUCOSE METER, POINT OF CARE (06/08/2024 11:27 AM EST) [facility] GLUCOSE - POCT 118 70 - 120 mg/dL 06/08/2024 12:05 PM EST [facility] Blood Whole blood specimen / Unknown 06/08/2024 11:27 AM EST 06/08/2024 12:05 PM EST us August Hebert MD LAB POINT OF CARE TE ST DOCKED DEVICE UNSOLICITED RESULTS Final Result [facility] [address] [place] [address] * (ABNORMAL) DIFFERENTIAL, AUTOMATED (06/08/2024 9:15 AM EST) [facility] WBC 7.88 4.00 - 10.80 K/uL 06/08/2024 9:39 AM EST [facility] Neutrophils % 76.2(H) 40.0 - 75.0 % 06/08/2024 9:39 AM EST [facility] Lymphocytes % 8.5(L) 18.0 - 42.0 % 06/08/2024 9:39 AM EST [facility] Monocytes % 9.1 1.0 - 11.0 % 06/08/2024 9:39 AM EST [facility] Eosinophils % 4.1 0.0 - 6.0 % 06/08/2024 9:39 AM EST [facility] Basophils % 0.5 0.0 - 2.0 % 06/08/2024 9:39 AM EST [facility] Immature Granulocytes % 1.6 0.0 - 2.0 % 06/08/2024 9:39 AM EST [facility] Absolute Neutrophils 6.00 1.80 - 7.70 K/uL 06/08/2024 9:39 AM EST [facility] Absolute Lymphocytes 0.67(L) 1.00 - 4.80 K/ul 06/08/2024 9:39 AM EST [facility] Absolute Monocytes 0.72 0.00 - 1.10 K/uL 06/08/2024 9:39 AM EST [facility] Absolute Eosinophils 0.32 0.00 - 0.70 K/uL 06/08/2024 9:39 AM EST [facility] Absolute Basophils 0.04 0.00 - 0.20 K/uL 06/08/2024 9:39 AM EST [facility] Absolute Immature Granulocytes 0.13 0.00 - 0.20 K/uL 06/08/2024 9:39 AM EST [facility] Blood Venous blood specimen / Unknown Venipuncture / Unknown 06/08/2024 9:15 AM EST 06/08/2024 9:30 AM EST us August Hebert MD LAB BLOOD ORDERABLES Final Resul t [facility] [address] [place] [address] * (ABNORMAL) CBC (06/08/2024 9:15 AM EST) WBC 7.88 4.00 - 10.80 K/uL 06/08/2024 9:39 AM EST [facility] RBC 3.47 4.50 - 5.25 M/uL 06/08/2024 9:39 AM EST [facility] HGB 9.1(L) 14.0 - 16.8 g/dL 06/08/2024 9:39 AM EST [facility] HCT 31.1(L) 40.0 - 48.4 % 06/08/2024 9:39 AM EST [facility] MCV 89.6 82.0 - 99.5 fL 06/08/2024 9:39 AM EST [facility] MCH 26.2 27.0 - 34.0 pg 06/08/2024 9:39 AM EST [facility] MCHC 29.3 32.0 - 36.0 g/dL 06/08/2024 9:39 AM EST [facility] RDW 18.5 11.5 - 15.5 % 06/08/2024 9:39 AM EST [facility] PLT 345 140 - 400 K/uL 06/08/2024 9:39 AM EST [facility] MPV 9.1 6.6 - 11.1 fL 06/08/2024 9:39 AM EST [facility] nRBCs 0 <=0 /100 WBCs 06/08/2024 9:39 AM EST [facility] Blood Venous blood specimen / Unknown Venipuncture / Unknown 06/08/2024 9:15 AM EST 06/08/2024 9:30 AM EST us August Hebert MD LAB BLOOD ORDERABLES Final Resul t [facility] [address] [place] [address] * (ABNORMAL) BASIC METABOLIC PANEL (06/08/2024 9:15 AM EST) BUN 8 6 - 20 mg/dL 06/08/2024 10:00 AM EST [facility] CREATININE 1.1 0.6 - 1.2 mg/dL 06/08/2024 10:00 AM EST [facility] EGFR 72 >=60 mL/min 06/08/2024 10:00 AM EST [facility] Comment:eGFR is calculated b ased on the CKD-EPI 2020 equation. SODIUM 134(L) 135 - 146 mmol/L 06/08/2024 10:00 AM EST [facility] POTASSIUM 3.8 3.5 - 5.1 mmol/L 06/08/2024 10:00 AM EST [facility] CHLORIDE 96(L) 98 - 107 mmol/L 06/08/2024 10:00 AM EST [facility] CO2 26 22 - 32 mmol/L 06/08/2024 10:00 AM EST [facility] ANION GAP 12 7 - 15 mmol/L 06/08/2024 10:00 AM EST [facility] GLUCOSE 157(H) 70 - 120 mg/dL 06/08/2024 10:00 AM EST [facility] CALCIUM 8.4 8.4 - 10.2 mg/dL 06/08/2024 10:00 AM EST LAB[facility]ATORY [facility] Blood Venous blood specimen / Unknown Venipuncture / Unknown 06/08/2024 9:15 AM EST 06/08/2024 9:30 AM EST us August Hebert MD LAB BLOOD ORDERABLES Final Resul t [facility] [address] [place] [address] * GLUCOSE METER, POINT OF CARE (06/08/2024 7:41 AM EST) GLUCOSE - POCT 120 70 - 120 mg/dL 06/08/2024 8:16 AM EST [email or web address] Blood Whole blood specimen / Unknown 06/08/2024 7:41 AM EST 06/08/2024 8:16 AM EST us August Hebert MD LAB POINT OF CARE TE ST DOCKED DEVICE UNSOLICITED RESULTS Final Result [facility] [address] [place] [address] * (ABNORMAL) GLUCOSE METER, POINT OF CARE (06/07/2024 8:40 PM EST) GLUCOSE - POCT 133(H) 70 - 120 mg/dL 06/07/2024 8:44 PM EST [facility] Whole blood specimen / Unknown 06/07/2024 8:40 PM EST 06/07/2024 8:44 PM EST Frank Fleming MD LAB POINT OF CARE T EST DOCKED DEVICE UNSOLICITED RESULTS Final Result [facility] [address] [place] [address] * GLUCOSE METER, POINT OF CARE (06/07/2024 4:16 PM EST) GLUCOSE - POCT 87 70 - 120 mg/dL 06/07/2024 4:20 PM EST [email or web address] Blood Whole blood specimen / Unknown 06/07/2024 4:16 PM EST 06/07/2024 4:20 PM EST Frank Fleming MD LAB POINT OF CARE T EST DOCKED DEVICE UNSOLICITED RESULTS Final Result Performing Organization Address City/[facility]/ZIP Co de Phone Number [facility] [address] [place] [address] * GLUCOSE METER, POINT OF CARE (06/07/2024 11:42 AM EST) GLUCOSE - POCT 110 70 - 120 mg/dL 06/07/2024 12:00 PM EST [email or web address] Blood Whole blood specimen / Unknown 06/07/2024 11:42 AM EST 06/07/2024 12:00 PM EST Frank Fleming MD LAB POINT OF CARE T EST DOCKED DEVICE UNSOLICITED RESULTS Final Result [facility] [address] [place] [address] * GLUCOSE METER, POINT OF CARE (06/07/2024 7:44 AM EST) GLUCOSE - POCT 113 70 - 120 mg/dL 06/07/2024 8:03 AM EST [email or web address] Blood Whole blood specimen / Unknown 06/07/2024 7:44 AM EST 06/07/2024 8:03 AM EST Frank Fleming MD LAB POINT OF CARE T EST DOCKED DEVICE UNSOLICITED RESULTS Final Result Performing Organization Address City/[facility]/ZIP Co de Phone Number [facility] [address] [place] [address] * (ABNORMAL) GLUCOSE METER, POINT OF CARE (06/06/2024 9:33 PM EST) GLUCOSE - POCT 146(H) 70 - 120 mg/dL 06/06/2024 9:44 PM EST [email or web address] Blood Whole blood specimen / Unknown 06/06/2024 9:33 PM EST 06/06/2024 9:44 PM EST Frank Fleming MD LAB POINT OF CARE T EST DOCKED DEVICE UNSOLICITED RESULTS Final Result Performing Organization Address [facility]/ZIP Co de Phone Number [facility] [address] [place] [address] * GLUCOSE METER, POINT OF CARE (06/06/2024 4:55 PM EST) GLUCOSE - POCT 97 70 - 120 mg/dL 06/06/2024 4:59 PM EST [email or web address] Blood Whole blood specimen / Unknown 06/06/2024 4:55 PM EST 06/06/2024 4:59 PM EST Frank Fleming MD LAB POINT OF CARE T EST DOCKED DEVICE UNSOLICITED RESULTS Final Result Performing Organization Address City/[facility]/ZIP Co de Phone Number [facility] [address] [place] [address] * GLUCOSE METER, POINT OF CARE (06/06/2024 11:38 AM EST) GLUCOSE - POCT 90 70 - 120 mg/dL 06/06/2024 12:02 PM EST [email or web address] Blood Whole blood specimen / Unknown 06/06/2024 11:38 AM EST 06/06/2024 12:02 PM EST Frank Fleming MD LAB POINT OF CARE T EST DOCKED DEVICE UNSOLICITED RESULTS Final Result Performing Organization Address City/[facility]/ZIP Co de Phone Number [facility] [address] [place] [address] * (ABNORMAL) GLUCOSE METER, POINT OF CARE (06/06/2024 7:42 AM EST) GLUCOSE - POCT 152(H) 70 - 120 mg/dL 06/06/2024 8:51 AM EST [facility] Blood Whole blood specimen / Unknown 06/06/2024 7:42 AM EST 06/06/2024 8:51 AM EST Frank Fleming MD LAB POINT OF CARE T EST DOCKED DEVICE UNSOLICITED RESULTS Final Result Performing Organization Address [facility]/ZIP Co de Phone Number [facility] [address] [place] [address] * PHOSPHORUS (06/06/2024 6:22 AM EST) Phosphorus 2.8 2.5 - 4.8 mg/dL 06/06/2024 7:31 AM EST [facility]ORY [facility] Blood Venous blood specimen / Unknown Venipuncture / Unknown 06/06/2024 6:22 AM EST 06/06/2024 6:55 AM EST Frank Fleming MD LAB BLOOD ORDERABLES Final Result [facility] [address] [place] [address] * MAGNESIUM (06/06/2024 6:22 AM EST) Magnesium 2.1 1.5 - 2.6 mg/dL 06/06/2024 7:31 AM EST [facility] Blood Venous blood specimen / Unknown Venipuncture / Unknown 06/06/2024 6:22 AM EST 06/06/2024 6:55 AM EST Frank Fleming MD LAB BLOOD ORDERABLES Final Result Performing Organization Address City/State/[facility] Co de Phone Number [facility] [address] [place] [address] * (ABNORMAL) CBC (06/06/2024 6:22 AM EST) WBC 7.42 4.00 - 10.80 K/uL 06/06/2024 7:10 AM EST [facility] RBC 3.42 4.50 - 5.25 M/uL 06/06/2024 7:10 AM EST [facility] HGB 8.6(L) 14.0 - 16.8 g/dL 06/06/2024 7:10 AM EST [facility] HCT 30.6(L) 40.0 - 48.4 % 06/06/2024 7:10 AM EST [facility] MCV 89.5 82.0 - 99.5 fL 06/06/2024 7:10 AM EST [facility] MCH 25.1 27.0 - 34.0 pg 06/06/2024 7:10 AM EST [facility] MCHC 28.1 32.0 - 36.0 g/dL 06/06/2024 7:10 AM EST [facility] RDW 17.4 11.5 - 15.5 % 06/06/2024 7:10 AM EST [facility] PLT 347 140 - 400 K/uL 06/06/2024 7:10 AM EST [facility] MPV 8.8 6.6 - 11.1 fL 06/06/2024 7:10 AM EST [facility] nRBCs 0 <=0 /100 WBCs 06/06/2024 7:10 AM EST [facility] Blood Venous blood specimen / Unknown Venipuncture / Unknown 06/06/2024 6:22 AM EST 06/06/2024 6:55 AM EST Frank Fleming MD LAB BLOOD ORDERABLES Final Result [facility] [address] [place] [address] * (ABNORMAL) BASIC METABOLIC PANEL (06/06/2024 6:22 AM EST) BUN 10 6 - 20 mg/dL 06/06/2024 7:31 AM EST [facility] CREATININE 1.0 0.6 - 1.2 mg/dL 06/06/2024 7:31 AM EST [facility] EGFR 75 >=60 mL/min 06/06/2024 7:31 AM EST [facility] Comment:eGFR is calculated b ased on the CKD-EPI 2020 equation. SODIUM 133(L) 135 - 146 mmol/L 06/06/2024 7:31 AM EST [facility] POTASSIUM 3.9 3.5 - 5.1 mmol/L 06/06/2024 7:31 AM EST [facility] CHLORIDE 97(L) 98 - 107 mmol/L 06/06/2024 7:31 AM EST [facility] CO2 26 22 - 32 mmol/L 06/06/2024 7:31 AM EST [facility] ANION GAP 10 7 - 15 mmol/L 06/06/2024 7:31 AM EST [facility] GLUCOSE 117 70 - 120 mg/dL 06/06/2024 7:31 AM EST [facility] CALCIUM 8.3(L) 8.4 - 10.2 mg/dL 06/06/2024 7:31 AM EST [facility] Blood Venous blood specimen / Unknown Venipuncture / Unknown 06/06/2024 6:22 AM EST 06/06/2024 6:55 AM EST Frank Fleming MD LAB BLOOD ORDERABLES Final Result [facility]AT[facility] [address] [place] [address] * VANCOMYCIN RANDOM (06/06/2024 6:22 AM EST) Vancomycin Random 22.8 10.0 - 40.0 ug/mL 06/06/2024 7:31 AM EST [facility] Blood Venous blood specimen / Unknown Venipuncture / Unknown 06/06/2024 6:22 AM EST 06/06/2024 6:55 AM EST us Yaniv Ramirez MD LAB BLOOD ORDERABLES F inal Result [facility]ATORY [facility] [address] [place] [address] * (ABNORMAL) GLUCOSE METER, POINT OF CARE (06/05/2024 9:11 PM EST) GLUCOSE - POCT 139(H) 70 - 120 mg/dL 06/08/2024 4:40 AM EST [facility] Blood Whole blood specimen / Unknown 06/05/2024 9:11 PM EST 06/08/2024 4:40 AM EST us August Hebert MD LAB POINT OF CARE TE ST DOCKED DEVICE UNSOLICITED RESULTS Final Result Performing Organization Address City/[facility]/ZIP Co de Phone Number [facility] [address] [place] [address] * (ABNORMAL) GLUCOSE METER, POINT OF CARE (06/05/2024 4:51 PM EST) GLUCOSE - POCT 121(H) 70 - 120 mg/dL 06/08/2024 4:40 AM EST [facility] Blood Whole blood specimen / Unknown 06/05/2024 4:51 PM EST 06/08/2024 4:40 AM EST us August Hebert MD LAB POINT OF CARE TE ST DOCKED DEVICE UNSOLICITED RESULTS Final Result [facility] [address] [place] [address] * GLUCOSE METER, POINT OF CARE (06/05/2024 11:56 AM EST) GLUCOSE - POCT 114 70 - 120 mg/dL 06/08/2024 4:40 AM EST [employer] Blood Whole blood specimen / Unknown 06/05/2024 11:56 AM EST 06/08/2024 4:40 AM EST us August Hebert MD LAB POINT OF CARE TE ST DOCKED DEVICE UNSOLICITED RESULTS Final Result [facility] [address] [place] [address] * (ABNORMAL) GLUCOSE METER, POINT OF CARE (06/05/2024 7:50 AM EST) Pathologist [facility] GLUCOSE - POCT 127(H) 70 - 120 mg/dL 06/08/2024 4:39 AM EST [facility] Blood Whole blood specimen / Unknown 06/05/2024 7:50 AM EST 06/08/2024 4:39 AM EST us August Hebert MD LAB POINT OF CARE TE ST DOCKED DEVICE UNSOLICITED RESULTS Final Result Performing Organization Address City/[facility] Co de Phone Number [facility] [address] [place] [address] * (ABNORMAL) BASIC METABOLIC PANEL (06/05/2024 7:32 AM EST) [facility] BUN 13 6 - 20 mg/dL 06/05/2024 8:16 AM EST [facility] CREATININE 1.0 0.6 - 1.2 mg/dL 06/05/2024 8:16 AM EST [facility] EGFR 73 >=60 mL/min 06/05/2024 8:16 AM EST [facility] Comment:eGFR is calculated b ased on the CKD-EPI 2020 equation. SODIUM 133(L) 135 - 146 mmol/L 06/05/2024 8:16 AM EST [facility] POTASSIUM 4.1 3.5 - 5.1 mmol/L 06/05/2024 8:16 AM EST [facility] CHLORIDE 99 98 - 107 mmol/L 06/05/2024 8:16 AM EST [facility] CO2 24 22 - 32 mmol/L 06/05/2024 8:16 AM EST [facility] ANION GAP 10 7 - 15 mmol/L 06/05/2024 8:16 AM EST [facility] GLUCOSE 118 70 - 120 mg/dL 06/05/2024 8:16 AM EST LAB[facility]ATORY [facility] CALCIUM 8.3(L) 8.4 - 10.2 mg/dL 06/05/2024 8:16 AM EST [facility] Blood Venous blood specimen / Unknown Venipuncture / Unknown 06/05/2024 7:32 AM EST 06/05/2024 7:49 AM EST Angle Albarado MD LAB BLOOD ORDERABLES Fin al Result Performing Organization Address City/[facility]/ZIP Co de Phone Number LABORATORY [facility] [address] [place] [address] * CALCIUM, IONIZED (06/05/2024 7:32 AM EST) Calcium, Ionized 1.18 1.13 - 1.32 mmol/L 06/05/2024 8:26 AM EST [facility]ORY [facility] Comment:This test was develo ped and its performance characteristics dtermined by [employer]. It has not been cleared or approved by the US Food and Drug Administration Blood Venous blood specimen / Unknown Venipuncture / Unknown 06/05/2024 7:32 AM EST 06/05/2024 7:45 AM EST Angle Albarado MD LAB BLOOD ORDERABLES Fin al Result Performing Organization Address [facility] Co de Phone Number LABORATORY [facility] [address] [place] [address] * PHOSPHORUS (06/05/2024 7:32 AM EST) Phosphorus 2.6 2.5 - 4.8 mg/dL 06/05/2024 8:16 AM EST [facility] Blood Venous blood specimen / Unknown Venipuncture / Unknown 06/05/2024 7:32 AM EST 06/05/2024 7:49 AM EST Angle Albarado MD LAB BLOOD ORDERABLES Fin al Result LABORATORY [facility] [address] [place] [address] * MAGNESIUM (06/05/2024 7:32 AM EST) Magnesium 2.3 1.5 - 2.6 mg/dL 06/05/2024 8:16 AM EST [facility] Blood Venous blood specimen / Unknown Venipuncture / Unknown 06/05/2024 7:32 AM EST 06/05/2024 7:49 AM EST us Angle Albarado MD LAB BLOOD ORDERABLES Fin al Result LABORATORY [facility] [address] [place] [address] * (ABNORMAL) CBC (06/05/2024 7:32 AM EST) Pathologist [facility] WBC 6.83 4.00 - 10.80 K/uL 06/05/2024 7:57 AM EST [facility] RBC 3.35 4.50 - 5.25 M/uL 06/05/2024 7:57 AM EST [facility] HGB 8.9(L) 14.0 - 16.8 g/dL 06/05/2024 7:57 AM EST [facility] HCT 29.7(L) 40.0 - 48.4 % 06/05/2024 7:57 AM EST [facility] MCV 88.7 82.0 - 99.5 fL 06/05/2024 7:57 AM EST [facility] MCH 26.6 27.0 - 34.0 pg 06/05/2024 7:57 AM EST [facility] MCHC 30.0 32.0 - 36.0 g/dL 06/05/2024 7:57 AM EST [facility] RDW 17.2 11.5 - 15.5 % 06/05/2024 7:57 AM EST [facility] PLT 350 140 - 400 K/uL 06/05/2024 7:57 AM EST [facility] MPV 8.6 6.6 - 11.1 fL 06/05/2024 7:57 AM EST [facility] nRBCs 0 <=0 /100 WBCs 06/05/2024 7:57 AM EST [facility] Blood Venous blood specimen / Unknown Venipuncture / Unknown 06/05/2024 7:32 AM EST 06/05/2024 7:49 AM EST us Fatuma Altman DO LAB BLOOD ORDERABLES Final Resu lt [facility] [address] [place] [address] * GLUCOSE METER, POINT OF CARE (06/04/2024 8:59 PM EDT) GLUCOSE - POCT 120 70 - 120 mg/dL 06/05/2024 2:06 AM EST [email or web address] Blood Whole blood specimen / Unknown 06/04/2024 8:59 PM EDT 06/05/2024 2:06 AM EST us Frank Fleming MD LAB POINT OF CARE T EST DOCKED DEVICE UNSOLICITED RESULTS Final Result Performing Organization Address City/[facility]/ZIP Co de Phone Number [facility] [address] [place] [address] * (ABNORMAL) GLUCOSE METER, POINT OF CARE (06/04/2024 4:39 PM EDT) GLUCOSE - POCT 132(H) 70 - 120 mg/dL 06/04/2024 4:43 PM EDT [email or web address] Blood Whole blood specimen / Unknown 06/04/2024 4:39 PM EDT 06/04/2024 4:43 PM EDT us Jennifer Sexton MD LAB POINT OF CARE TEST DOCKED DEVICE UNSOLICITED RESULTS Final Result [facility] [address] [place] [address] * (ABNORMAL) CBC (06/04/2024 1:10 PM EDT) WBC 8.58 4.00 - 10.80 K/uL 06/04/2024 1:22 PM EDT LABORATORY [facility] RBC 2.97 4.50 - 5.25 M/uL 06/04/2024 1:22 PM EDT LAB[facility]ATORY [facility] HGB 7.9(L) 14.0 - 16.8 g/dL 06/04/2024 1:22 PM EDT LAB[facility]ATORY [facility] HCT 26.1(L) 40.0 - 48.4 % 06/04/2024 1:22 PM EDT LABORATORY [facility] MCV 87.9 82.0 - 99.5 fL 06/04/2024 1:22 PM EDT LABORATORY [facility] MCH 26.6 27.0 - 34.0 pg 06/04/2024 1:22 PM EDT LABORATORY [facility] MCHC 30.3 32.0 - 36.0 g/dL 06/04/2024 1:22 PM EDT LAB[facility]ORY [facility] RDW 17.2 11.5 - 15.5 % 06/04/2024 1:22 PM EDT LABORATORY [facility] PLT 318 140 - 400 K/uL 06/04/2024 1:22 PM EDT LAB[facility]ATORY [facility] MPV 8.6 6.6 - 11.1 fL 06/04/2024 1:22 PM EDT LAB[facility]ATORY [facility] nRBCs 0 <=0 /100 WBCs 06/04/2024 1:22 PM EDT LAB[facility]ATORY [facility] Blood Arterial blood specimen / Unknown Arterial Puncture / Unknown 06/04/2024 1:10 PM EDT 06/04/2024 1:15 PM EDT us Kieran Mendiola MD LAB BLOOD ORDERABLES F inal Result LABORATORY [facility] [address] [place] [address] * (ABNORMAL) GLUCOSE METER, POINT OF CARE (06/04/2024 11:49 AM EDT) [facility] GLUCOSE - POCT 124(H) 70 - 120 mg/dL 06/04/2024 11:52 AM EDT [email or web address] Blood Whole blood specimen / Unknown 06/04/2024 11:49 AM EDT 06/04/2024 11:52 AM EDT Yaniv Ramirez MD LAB POINT OF C ARE TEST DOCKED DEVICE UNSOLICITED RESULTS Final Result [facility] [address] [place] [address] * TRANSFUSE PACKED RED BLOOD CELLS (06/04/2024 10:25 AM EDT) Fatuma Altman DO BLD BANK TRANFUSE ORDERABLES Fi nal Result * TRANSFUSE PACKED RED BLOOD CELLS (06/04/2024 10:25 AM EDT) Fatuma Altman DO BLD BANK TRANFUSE ORDERABLES Fi nal Result * ABO/RH (06/04/2024 6:15 AM EDT) ABO AB 06/04/2024 6:46 AM EDT LABORATORY [facility] BLOOD B[facility] Rh Positive 06/04/2024 6:46 AM EDT LAB[facility]ORY [facility] BLOOD [facility] Blood Arterial blood specimen / Unknown Arterial Line / Unknown 06/04/2024 6:15 AM EDT 06/04/2024 6:21 AM EDT [facility] LAB BLOOD BANK TEST ORDERABLES Final Result Performing Organization Address City/[facility] Co de Phone Number LABORATORY [facility] BLOOD BANK [address], [place] [id number] * PREPARE PACKED RED BLOOD CELLS (06/04/2024 6:15 AM EDT) Unit Product Code [id number] 06/05/2024 12:10 PM EST LAB[facility]ATORY [facility] BLOOD [facility] Unit Number [id number] 06/05/2024 12:10 PM EST [facility] BLOOD BANK Unit ABO AB 06/05/2024 12:10 PM EST [facility] BLOOD BANK Unit Rh NEG 06/05/2024 12:10 PM EST [facility] B[facility] Unit Crossmatch Compatible 06/04/2024 7:04 AM EDT LAB[facility]ORY [facility] B[facility]OD [facility] Unit Status PT 06/05/2024 12:10 PM EST [facility] B[facility]OD [facility] Unit Blood Type ABNEG 06/05/2024 12:10 PM EST [facility] Unit Expiration [id number] 06/05/2024 12:10 PM EST [facility] BLOOD [facility] Unit Barcode 2800 06/05/2024 12:10 PM EST [facility] BLOOD [facility]ANK 06/04/2024 6:15 AM EDT Fatuma Altman DO D BANK PRODUCT ORDERABLES Mikey celia Result - Final Performing Organization Address [facility] de Phone Number LABORATORY [facility] BLOOD BANK [address] [place] [address] * TYPE AND SCREEN (06/04/2024 6:15 AM EDT) ABO AB 06/04/2024 7:02 AM EDT LAB[facility]ORY [facility] BLOOD [facility] Rh Positive 06/04/2024 7:02 AM EDT [facility] B[facility]OD [facility] Red Blood Cell Antibody Screen Negative 06/04/2024 7:02 AM EDT LAB[facility]ORY [facility] BLOOD [facility] Specimen Expiration Date 06/07/2024 23:59 06/04/2024 7:02 AM EDT LAB[facility]ORY [facility] BLOOD [facility] Blood Arterial blood specimen / Unknown Arterial Line / Unknown 06/04/2024 6:15 AM EDT 06/04/2024 6:21 AM EDT Fatuma Altman LAB BLOOD BANK TEST ORDERABLES Final Result Performing Organization Address [facility] de Phone Number LABORATORY [facility] BLOOD [facility] [address] [place] [address] * (ABNORMAL) BASIC METABOLIC PANEL (06/04/2024 5:37 AM EDT) BUN 17 6 - 20 mg/dL 06/04/2024 6:18 AM EDT LAB[facility]ATORY [facility] CREATININE 1.1 0.6 - 1.2 mg/dL 06/04/2024 6:18 AM EDT LAB[facility]ORY [facility] EGFR 73 >=60 mL/min 06/04/2024 6:18 AM EDT [facility] Comment:eGFR is calculated b ased on the CKD-EPI 2020 equation. SODIUM 130(L) 135 - 146 mmol/L 06/04/2024 6:18 AM EDT [facility] POTASSIUM 3.8 3.5 - 5.1 mmol/L 06/04/2024 6:18 AM EDT [facility] CHLORIDE 97(L) 98 - 107 mmol/L 06/04/2024 6:18 AM EDT [facility] CO2 25 22 - 32 mmol/L 06/04/2024 6:18 AM EDT [facility] ANION GAP 8 7 - 15 mmol/L 06/04/2024 6:18 AM EDT [facility] GLUCOSE 109 70 - 120 mg/dL 06/04/2024 6:18 AM EDT [facility] CALCIUM 7.9(L) 8.4 - 10.2 mg/dL 06/04/2024 6:18 AM EDT [facility] Blood Arterial blood specimen / Unknown Arterial Line / Unknown 06/04/2024 5:37 AM EDT 06/04/2024 5:45 AM EDT Angle Albarado MD LAB BLOOD ORDERABLES Fin al Result Performing Organization Address City/[facility] Co de Phone Number LABORATORY [place] [address] [place] [address] * CALCIUM, IONIZED (06/04/2024 5:37 AM EDT) [facility] Calcium, Ionized 1.16 1.13 - 1.32 mmol/L 06/04/2024 6:11 AM EDT [facility] Comment:This test was develo ped and its performance characteristics dtermined by [employer]. It has not been cleared or approved by the [place] Food and Drug Administration Blood Arterial blood specimen / Unknown Arterial Line / Unknown 06/04/2024 5:37 AM EDT 06/04/2024 5:45 AM EDT Angle Albarado MD LAB BLOOD ORDERABLES Fin al Result LABORATORY [facility] [address] [place] [address] * (ABNORMAL) PHOSPHORUS (06/04/2024 5:37 AM EDT) [facility] Phosphorus 2.4(L) 2.5 - 4.8 mg/dL 06/04/2024 6:18 AM EDT [facility] Blood Arterial blood specimen / Unknown Arterial Line / Unknown 06/04/2024 5:37 AM EDT 06/04/2024 5:45 AM EDT Angle Albarado MD LAB BLOOD ORDERABLES Fin al Result LABORATORY [address] [address] * MAGNESIUM (06/04/2024 5:37 AM EDT) [facility] Magnesium 2.3 1.5 - 2.6 mg/dL 06/04/2024 6:18 AM EDT [facility]ORY [facility] Blood Arterial blood specimen / Unknown Arterial Line / Unknown 06/04/2024 5:37 AM EDT 06/04/2024 5:45 AM EDT Angle Albarado MD LAB BLOOD ORDERABLES Fin al Result LABORATORY [place] [address] [place] [address] * (ABNORMAL) CBC (06/04/2024 5:37 AM EDT) [facility] WBC 7.71 4.00 - 10.80 K/uL 06/04/2024 6:00 AM EDT [facility] RBC 2.64 4.50 - 5.25 M/uL 06/04/2024 6:00 AM EDT [facility] HGB 6.8(L) 14.0 - 16.8 g/dL 06/04/2024 6:00 AM EDT [facility] HCT 23.0(L) 40.0 - 48.4 % 06/04/2024 6:00 AM EDT [facility] MCV 87.1 82.0 - 99.5 fL 06/04/2024 6:00 AM EDT LAB[facility]ORY [facility] MCH 25.8 27.0 - 34.0 pg 06/04/2024 6:00 AM EDT LAB[facility] MCHC 29.6 32.0 - 36.0 g/dL 06/04/2024 6:00 AM EDT LAB[facility] RDW 17.4 11.5 - 15.5 % 06/04/2024 6:00 AM EDT LAB[facility] PLT 317 140 - 400 K/uL 06/04/2024 6:00 AM EDT [facility] MPV 8.9 6.6 - 11.1 fL 06/04/2024 6:00 AM EDT [facility] nRBCs 0 <=0 /100 WBCs 06/04/2024 6:00 AM EDT [facility] Blood Arterial blood specimen / Unknown Arterial Line / Unknown 06/04/2024 5:37 AM EDT 06/04/2024 5:45 AM EDT us Fatuma Altman DO LAB BLOOD ORDERABLES Final Resu lt LABORATORY [facility] [address] [place], [place] [id number] * GLUCOSE METER, POINT OF CARE (06/04/2024 5:36 AM EDT) [facility] GLUCOSE - POCT 93 70 - 120 mg/dL 06/04/2024 5:40 AM EDT [facility] Blood Whole blood specimen / Unknown 06/04/2024 5:36 AM EDT 06/04/2024 5:40 AM EDT us Yaniv Ramirez MD LAB POINT OF C ARE TEST DOCKED DEVICE UNSOLICITED RESULTS Final Result [facility] [address] [place] [address] * GLUCOSE METER, POINT OF CARE (06/03/2024 11:46 PM EDT) [facility] GLUCOSE - POCT 113 70 - 120 mg/dL 06/03/2024 11:58 PM EDT [facility] Blood Whole blood specimen / Unknown 06/03/2024 11:46 PM EDT 06/03/2024 11:58 PM EDT Yaniv Ramirez MD LAB POINT OF C ARE TEST DOCKED DEVICE UNSOLICITED RESULTS Final Result [facility] [address] [place] [address] * GLUCOSE METER, POINT OF CARE (06/03/2024 6:19 PM EDT) GLUCOSE - POCT 102 70 - 120 mg/dL 06/03/2024 6:23 PM EDT [facility] Blood Whole blood specimen / Unknown 06/03/2024 6:19 PM EDT 06/03/2024 6:23 PM EDT Yaniv Ramirez MD LAB POINT OF C ARE TEST DOCKED DEVICE UNSOLICITED RESULTS Final Result [facility] [address] [place] [address] * (ABNORMAL) BASIC METABOLIC PANEL (06/03/2024 2:02 PM EDT) BUN 26(H) 6 - 20 mg/dL 06/03/2024 3:47 PM EDT [facility] CREATININE 1.1 0.6 - 1.2 mg/dL 06/03/2024 3:47 PM EDT [facility] EGFR 73 >=60 mL/min 06/03/2024 3:47 PM EDT [facility] Comment:eGFR is calculated b ased on the CKD-EPI 2020 equation. SODIUM 130(L) 135 - 146 mmol/L 06/03/2024 3:47 PM EDT [facility] POTASSIUM 3.8 3.5 - 5.1 mmol/L 06/03/2024 3:47 PM EDT [facility] CHLORIDE 96(L) 98 - 107 mmol/L 06/03/2024 3:47 PM EDT [facility] CO2 23 22 - 32 mmol/L 06/03/2024 3:47 PM EDT LABORATORY C ANION GAP 11 7 - 15 mmol/L 06/03/2024 3:47 PM EDT LAB[facility]ATORY [facility] GLUCOSE 127(H) 70 - 120 mg/dL 06/03/2024 3:47 PM EDT [facility] CALCIUM 7.9(L) 8.4 - 10.2 mg/dL 06/03/2024 3:47 PM EDT [facility] Blood Arterial blood specimen / Unknown Arterial Line / Unknown 06/03/2024 2:02 PM EDT 06/03/2024 3:12 PM EDT us Kieran Mendiola MD LAB BLOOD ORDERABLES F inal Result [facility]ATORY [facility] [address] [place] [address] * (ABNORMAL) GLUCOSE METER, POINT OF CARE (06/03/2024 12:07 PM EDT) GLUCOSE - POCT 134(H) 70 - 120 mg/dL 06/03/2024 12:16 PM EDT [employer] [facility] Blood Whole blood specimen / Unknown 06/03/2024 12:07 PM EDT 06/03/2024 12:16 PM EDT Yaniv Ramirez MD LAB POINT OF C ARE TEST DOCKED DEVICE UNSOLICITED RESULTS Final Result Performing Organization Address City/[facility]/ZIP Co de Phone Number [facility] [address] [place] [address] * ECHO, COMPLETE (2D), TRANS-THORACIC (06/03/2024 8:59 AM EDT) LEFT VENTRICULAR EJECTION FRACTION 35 % [facility] CARDIOLOGY 06/03/2024 8:16 AM EDT us Angle Albarado MD ECHOCARDIOLOGY Final Re sult [facility] * (ABNORMAL) BASIC METABOLIC PANEL (06/03/2024 5:30 AM EDT) BUN 21(H) 6 - 20 mg/dL 06/03/2024 6:19 AM EDT [facility] CREATININE 1.1 0.6 - 1.2 mg/dL 06/03/2024 6:19 AM EDT [facility] EGFR 67 >=60 mL/min 06/03/2024 6:19 AM EDT [facility] Comment:eGFR is calculated b ased on the CKD-EPI 2020 equation. SODIUM 129(L) 135 - 146 mmol/L 06/03/2024 6:19 AM EDT [facility] POTASSIUM 3.9 3.5 - 5.1 mmol/L 06/03/2024 6:19 AM EDT [facility] CHLORIDE 95(L) 98 - 107 mmol/L 06/03/2024 6:19 AM EDT [facility] CO2 22 22 - 32 mmol/L 06/03/2024 6:19 AM EDT LABORATORY C ANION GAP 12 7 - 15 mmol/L 06/03/2024 6:19 AM EDT LABORATORY C GLUCOSE 168(H) 70 - 120 mg/dL 06/03/2024 6:19 AM EDT [facility] CALCIUM 8.0(L) 8.4 - 10.2 mg/dL 06/03/2024 6:19 AM EDT [facility]ORY [facility] Blood Arterial blood specimen / Unknown Arterial Line / Unknown 06/03/2024 5:30 AM EDT 06/03/2024 5:38 AM EDT us Angle Albarado MD LAB BLOOD ORDERABLES Fin al Result [facility] [address] [place] [address] * CALCIUM, IONIZED (06/03/2024 5:30 AM EDT) Calcium, Ionized 1.15 1.13 - 1.32 mmol/L 06/03/2024 5:58 AM EDT [facility] Comment:This test was develo ped and its performance characteristics dtermined by [employer]. It has not been cleared or approved by the [place] Food and Drug Administration Blood Arterial blood specimen / Unknown Arterial Line / Unknown 06/03/2024 5:30 AM EDT 06/03/2024 5:38 AM EDT Angle Albarado MD LAB BLOOD ORDERABLES Fin al Result Performing Organization Address City/[facility]/ZIP Co de Phone Number LABORATORY [facility] [address] [place] [address] * PHOSPHORUS (06/03/2024 5:30 AM EDT) Phosphorus 3.0 2.5 - 4.8 mg/dL 06/03/2024 6:19 AM EDT [facility] Blood Arterial blood specimen / Unknown Arterial Line / Unknown 06/03/2024 5:30 AM EDT 06/03/2024 5:38 AM EDT Angle Albarado MD LAB BLOOD ORDERABLES Fin al Result Performing Organization Address [facility] de Phone Number LABORATORY [facility] [address] [place] [address] * MAGNESIUM (06/03/2024 5:30 AM EDT) Magnesium 2.4 1.5 - 2.6 mg/dL 06/03/2024 6:19 AM EDT LABORATORY [facility] Blood Arterial blood specimen / Unknown Arterial Line / Unknown 06/03/2024 5:30 AM EDT 06/03/2024 5:38 AM EDT Angle Albarado MD LAB BLOOD ORDERABLES Fin al Result Performing Organization Address City/[facility] de Phone Number LABORATORY [facility] [address] [place] [address] * (ABNORMAL) CBC (06/03/2024 5:30 AM EDT) WBC 16.23(H) 4.00 - 10.80 K/uL 06/03/2024 5:59 AM EDT [facility] RBC 3.03 4.50 - 5.25 M/uL 06/03/2024 5:59 AM EDT [facility] HGB 7.8(L) 14.0 - 16.8 g/dL 06/03/2024 5:59 AM EDT [facility] HCT 25.4(L) 40.0 - 48.4 % 06/03/2024 5:59 AM EDT [facility] MCV 83.8 82.0 - 99.5 fL 06/03/2024 5:59 AM EDT [facility] MCH 25.7 27.0 - 34.0 pg 06/03/2024 5:59 AM EDT [facility] MCHC 30.7 32.0 - 36.0 g/dL 06/03/2024 5:59 AM EDT [facility] RDW 17.8 11.5 - 15.5 % 06/03/2024 5:59 AM EDT [facility] PLT 482(H) 140 - 400 K/uL 06/03/2024 5:59 AM EDT [facility] MPV 8.6 6.6 - 11.1 fL 06/03/2024 5:59 AM EDT [facility] nRBCs 0 <=0 /100 WBCs 06/03/2024 5:59 AM EDT [facility] Blood Arterial blood specimen / Unknown Arterial Line / Unknown 06/03/2024 5:30 AM EDT 06/03/2024 5:38 AM EDT us Fatuma Altmna DO LAB BLOOD ORDERABLES Final Resu lt [facility] [address] [place] [address] * (ABNORMAL) GLUCOSE METER, POINT OF CARE (06/03/2024 5:29 AM EDT) [facility] GLUCOSE - POCT 153(H) 70 - 120 mg/dL 06/03/2024 5:36 AM EDT [email or web address] Blood Whole blood specimen / Unknown 06/03/2024 5:29 AM EDT 06/03/2024 5:36 AM EDT us Yaniv Ramirez MD LAB POINT OF C ARE TEST DOCKED DEVICE UNSOLICITED RESULTS Final Result Performing Organization Address [facility] Co de Phone Number [facility] [address] [place] [address] * (ABNORMAL) GLUCOSE METER, POINT OF CARE (06/03/2024 12:01 AM EDT) GLUCOSE - POCT 166(H) 70 - 120 mg/dL 06/03/2024 12:20 AM EDT [facility] Blood Whole blood specimen / Unknown 06/03/2024 12:01 AM EDT 06/03/2024 12:20 AM EDT us Yaniv Ramirez MD LAB POINT OF C ARE TEST DOCKED DEVICE UNSOLICITED RESULTS Final Result Performing Organization Address [facility] Co de Phone Number [facility] [address] [place] [address] * (ABNORMAL) GLUCOSE METER, POINT OF CARE (06/02/2024 5:59 PM EDT) GLUCOSE - POCT 153(H) 70 - 120 mg/dL 06/02/2024 6:03 PM EDT [facility] [employer] LABORATORIES Blood Whole blood specimen / Unknown 06/02/2024 5:59 PM EDT 06/02/2024 6:03 PM EDT us Yaniv Ramirez MD LAB POINT OF C ARE TEST DOCKED DEVICE UNSOLICITED RESULTS Final Result Performing Organization Address [facility] Co de Phone Number [facility] [address] [place] [address] * SD ARTL CATHJ/CANNULJ MNTR/TRANSFUSION SPX PRQ, HC INSERT CATHETER ARTERY (06/02/2024 5:09 PM EDT) Yaniv Tristan MD - 06/02/2024 5:09 PM EDT Zuly Roberson MD 06/02/2024 5:15 PM Arterial Line General Information and Staff: Performed by: Zuly Roberson MD Procedure Date/Time: 06/02/2024 5:09 PM Patient Location: ICU Indication: continuous blood pressure monitoring Ultrasound: guidance used and surface landmarks ID'd Patient identity confirmed: Verbally with patient Verbal confirmation: MRN and name Verbal consent obtained: Yes Consent given by: Patient Understanding of procedure being performed: Yes Time out: Immediately prior to the procedure a time out was completed Procedure Detail: Sterility Preparation: provider hygiene performed, mask worn, sterile gloves worn, cap worn, sterile sheet used and gown worn Local Anesthetic Used: Yes Catheter Size: 24 gauge Catheter Length: 5 cm Catheter Type: Angiocath Laterality: Left Other Site: Ulna artery Seldinger Technique?: Yes Post Insertion: guidewire was removed, examined and appears intact Line Secured: Suture Attestation: Attestation: I personally performed the procedure myself Name of doctor present for entire procedure: Yaniv Ramirez MD Yaniv Ramirez MD ANESTHESIA Final Result * (ABNORMAL) GLUCOSE METER, POINT OF CARE (06/02/2024 11:25 AM EDT) [facility] GLUCOSE - POCT 130(H) 70 - 120 mg/dL 06/02/2024 11:28 AM EDT [facility] [employer] Blood Whole blood specimen / Unknown 06/02/2024 11:25 AM EDT 06/02/2024 11:28 AM EDT Mendel Kidd DO LAB POINT OF CARE TE ST DOCKED DEVICE UNSOLICITED RESULTS Final Result [facility] [address] [place] [address] * (ABNORMAL) BASIC METABOLIC PANEL (06/02/2024 11:11 AM EDT) [facility] BUN 15 6 - 20 mg/dL 06/02/2024 12:03 PM EDT [facility] CREATININE 1.4(H) 0.6 - 1.2 mg/dL 06/02/2024 12:03 PM EDT LABORATORY [facility] EGFR 51(L) >=60 mL/min 06/02/2024 12:03 PM EDT LABORATORY [facility] Comment:eGFR is calculated b ased on the CKD-EPI 2020 equation. SODIUM 131(L) 135 - 146 mmol/L 06/02/2024 12:03 PM EDT LABORATORY [facility] POTASSIUM 3.7 3.5 - 5.1 mmol/L 06/02/2024 12:03 PM EDT LABORATORY [facility] CHLORIDE 95(L) 98 - 107 mmol/L 06/02/2024 12:03 PM EDT LABORATORY C CO2 22 22 - 32 mmol/L 06/02/2024 12:03 PM EDT LABORATORY [facility] ANION GAP 14 7 - 15 mmol/L 06/02/2024 12:03 PM EDT LABORATORY [facility] GLUCOSE 148(H) 70 - 120 mg/dL 06/02/2024 12:03 PM EDT LABORATORY [facility] CALCIUM 8.2(L) 8.4 - 10.2 mg/dL 06/02/2024 12:03 PM EDT LAB[facility]ATORY [facility] Blood Venous blood specimen / Unknown Venipuncture / Unknown 06/02/2024 11:11 AM EDT 06/02/2024 11:16 AM EDT us Fatumagrace Altman DO LAB BLOOD ORDERABLES Final Resu lt LABORATORY [facility] [address] [place] [address] * (ABNORMAL) BNP, NT-PRO (06/02/2024 5:42 AM EDT) BNP, NT-Pro 7,812(H) <300 pg/mL 06/02/2024 10:54 AM EDT LAB[facility]ATORY [facility] Blood Venous blood specimen / Unknown Venipuncture / Unknown 06/02/2024 5:42 AM EDT 06/02/2024 6:00 AM EDT Narrative LABORATORY C - 06/02/2024 10:54 AM EDT Exclude Heart Failure: <300 pg/mL Diagnose Heart Failure: Age <50 yr: >450 pg/mL 50-75 yr: >900 pg/mL >75 yr: >1800 pg/mL GFR is 30-59 mL/min: >1200 pg/mL or Age-adjusted values GFR <30 mL/min: do not use, not reliable Prognostic threshold: 1000 pg/mL Angle Albarado MD LAB BLOOD ORDERABLES Fin al Result Performing Organization Address [facility] Co de Phone Number LABORATORY [facility] [address] [place] [address] * (ABNORMAL) PHOSPHORUS (06/02/2024 5:42 AM EDT) Phosphorus 5.6(H) 2.5 - 4.8 mg/dL 06/02/2024 9:11 AM EDT [facility] Blood Venous blood specimen / Unknown Venipuncture / Unknown 06/02/2024 5:42 AM EDT 06/02/2024 6:00 AM EDT Angle Albarado MD LAB BLOOD ORDERABLES Fin al Result Performing Organization Address [facility] de Phone Number LABORATORY [facility] [address] [place] [address] * MAGNESIUM (06/02/2024 5:42 AM EDT) Magnesium 2.5 1.5 - 2.6 mg/dL 06/02/2024 9:11 AM EDT [facility] Blood Venous blood specimen / Unknown Venipuncture / Unknown 06/02/2024 5:42 AM EDT 06/02/2024 6:00 AM EDT Angle Albarado MD LAB BLOOD ORDERABLES Fin al Result Performing Organization Address [facility] de Phone Number LABORATORY [facility] [address] [place] [address] * (ABNORMAL) TROPONIN T, HIGH SENSITIVITY (06/02/2024 5:42 AM EDT) Troponin T, High Sensitivity 378(HH) <=22 ng/L 06/02/2024 6:39 AM EDT [facility] Blood Venous blood specimen / Unknown Venipuncture / Unknown 06/02/2024 5:42 AM EDT 06/02/2024 6:00 AM EDT us Fatuma Altman DO LAB BLOOD ORDERABLES Final Resu lt LABORATORY [facility] [address] [place] [address] * (ABNORMAL) BASIC METABOLIC PANEL (06/02/2024 5:42 AM EDT) Pathologist [facility] BUN 15 6 - 20 mg/dL 06/02/2024 6:31 AM EDT LABORATORY [facility] CREATININE 1.4(H) 0.6 - 1.2 mg/dL 06/02/2024 6:31 AM EDT LABORATORY [facility] EGFR 52(L) >=60 mL/min 06/02/2024 6:31 AM EDT [facility] Comment:eGFR is calculated b ased on the CKD-EPI 2020 equation. SODIUM 127(L) 135 - 146 mmol/L 06/02/2024 6:31 AM EDT [facility] POTASSIUM 3.7 3.5 - 5.1 mmol/L 06/02/2024 6:31 AM EDT [facility] CHLORIDE 93(L) 98 - 107 mmol/L 06/02/2024 6:31 AM EDT LABORATORY C CO2 21(L) 22 - 32 mmol/L 06/02/2024 6:31 AM EDT [facility] ANION GAP 13 7 - 15 mmol/L 06/02/2024 6:31 AM EDT LABORATORY C GLUCOSE 174(H) 70 - 120 mg/dL 06/02/2024 6:31 AM EDT [facility] CALCIUM 7.9(L) 8.4 - 10.2 mg/dL 06/02/2024 6:31 AM EDT LAB[facility]ATORY [facility] Blood Venous blood specimen / Unknown Venipuncture / Unknown 06/02/2024 5:42 AM EDT 06/02/2024 6:00 AM EDT Fatuma Altman DO LAB BLOOD ORDERABLES Final Resu lt [facility] [address] [place] [address] * (ABNORMAL) CBC (06/02/2024 5:42 AM EDT) [facility] WBC 32.30(H) 4.00 - 10.80 K/uL 06/02/2024 6:10 AM EDT [facility] RBC 3.10 4.50 - 5.25 M/uL 06/02/2024 6:10 AM EDT [facility] HGB 8.2(L) 14.0 - 16.8 g/dL 06/02/2024 6:10 AM EDT [facility] HCT 26.1(L) 40.0 - 48.4 % 06/02/2024 6:10 AM EDT LABORATORY [facility] MCV 84.2 82.0 - 99.5 fL 06/02/2024 6:10 AM EDT LABORATORY [facility] MCH 26.5 27.0 - 34.0 pg 06/02/2024 6:10 AM EDT LABORATORY [facility] MCHC 31.4 32.0 - 36.0 g/dL 06/02/2024 6:10 AM EDT LABORATORY [facility] RDW 17.8 11.5 - 15.5 % 06/02/2024 6:10 AM EDT LABORATORY [facility] PLT 454(H) 140 - 400 K/uL 06/02/2024 6:10 AM EDT LABORATORY [facility] MPV 8.6 6.6 - 11.1 fL 06/02/2024 6:10 AM EDT LABORATORY [facility] nRBCs 0 <=0 /100 WBCs 06/02/2024 6:10 AM EDT LAB[facility]ATORY [facility] Blood Venous blood specimen / Unknown Venipuncture / Unknown 06/02/2024 5:42 AM EDT 06/02/2024 6:00 AM EDT us Fatuma Altman DO LAB BLOOD ORDERABLES Final Resu lt LABORATORY [facility] [address] [place] [address] * (ABNORMAL) HEMOGLOBIN A1C (06/02/2024 5:42 AM EDT) Hemoglobin A1C 5.9(H) 4.0 - 5.6 % 06/02/2024 6:52 AM EDT LABORATORY [facility] Comment:The use of HbA1c to monitor glycemic status is based on normal hemoglobin and HbA composition. This test should not be used in patients with abnormal hemoglobin that affects the half life of the red blood cell or the in vivo glycation rates. Estimated Average Glucose 123 <126 mg/dL 06/02/2024 6:52 AM EDT LABORATORY [facility] Blood Venous blood specimen / Unknown Venipuncture / Unknown 06/02/2024 5:42 AM EDT 06/02/2024 6:00 AM EDT Fatuma Altman DO LAB BLOOD ORDERABLES Final Resu lt LABORATORY [facility] [address] [place] [address] * (ABNORMAL) GLUCOSE METER, POINT OF CARE (06/02/2024 5:37 AM EDT) GLUCOSE - POCT 166(H) 70 - 120 mg/dL 06/02/2024 5:53 AM EDT [email or web address] Blood Whole blood specimen / Unknown 06/02/2024 5:37 AM EDT 06/02/2024 5:53 AM EDT Mendel Kidd DO LAB POINT OF CARE TE ST DOCKED DEVICE UNSOLICITED RESULTS Final Result [facility] [address] [place] [address] * (ABNORMAL) GLUCOSE METER, POINT OF CARE (06/02/2024 1:51 AM EDT) GLUCOSE - POCT 234(H) 70 - 120 mg/dL 06/02/2024 1:57 AM EDT [email or web address] Blood Whole blood specimen / Unknown 06/02/2024 1:51 AM EDT 06/02/2024 1:57 AM EDT us Mendel Kidd DO LAB POINT OF CARE TE ST DOCKED DEVICE UNSOLICITED RESULTS Final Result [facility] [address] [place] [address] * (ABNORMAL) URINALYSIS, REFLEX TO CULTURE (06/02/2024 1:39 AM EDT) Color, Urine Light Yellow Colorless, Light Yellow, Yellow, Dark Yellow 06/02/2024 2:03 AM EDT [facility] Clarity, Urine Clear Clear 06/02/2024 2:03 AM EDT [facility] Glucose, Urine Negative Negative mg/dL 06/02/2024 2:03 AM EDT [facility] Bilirubin, Urine Negative Negative 06/02/2024 2:03 AM EDT [facility] Ketone, Urine Negative Negative mg/dL 06/02/2024 2:03 AM EDT [facility] Specific [place], Urine 1.029 1.003 - 1.030 06/02/2024 2:03 AM EDT [facility] Blood, Urine Small(A) Negative 06/02/2024 2:03 AM EDT [facility] pH, Urine 6.0 5.0 - 7.5 Units 06/02/2024 2:03 AM EDT [facility] Protein, Urine 30(A) Negative mg/dL 06/02/2024 2:03 AM EDT [facility] Urobilinogen, Urine Normal Normal mg/dL 06/02/2024 2:03 AM EDT [facility] Nitrite, Urine Negative Negative 06/02/2024 2:03 AM EDT [facility] Esterase, Urine Trace(A) Negative 06/02/2024 2:03 AM EDT [facility] RBC, Urine 6-9(A) 0 - 2 /HPF 06/02/2024 2:03 AM EDT [facility] WBC, Urine 6-9(A) 0 - 2 /HPF 06/02/2024 2:03 AM EDT [facility] Bacteria, Urine 0-25 0 - 25 /HPF 06/02/2024 2:03 AM EDT [facility] Calcium Oxalate Crystal, Urine 1-4(A) None /HPF 06/02/2024 2:03 AM EDT LABORATORY [facility] Culture, Urine 06/02/2024 2:03 AM EDT LABORATORY [facility] Comment:Culture not indicate d by urinalysis results Urine Urine specimen / Unknown Non-blood Collection / Unknown 06/02/2024 1:39 AM EDT 06/02/2024 1:46 AM EDT us Fatuma Altman DO LAB URINE ORDERABLES Final Resu lt Performing Organization Address [facility] Co de Phone Number LABORATORY [facility] [address] [place] [address] * URINALYSIS, REFLEX TO CULTURE (CUP ONLY) (06/02/2024 1:39 AM EDT) Urinalysis, Reflex to Culture Specimen Specimen collected and received 06/02/2024 3:01 AM EDT LABORATORY [facility] Urine Urine specimen / Unknown Non-blood Collection / Unknown 06/02/2024 1:39 AM EDT 06/02/2024 1:46 AM EDT us Fatuma Altman DO LAB URINE ORDERABLES Final Resu lt Performing Organization Address [facility] Co de Phone Number LABORATORY [facility] [address] [place] [address] * SODIUM, RANDOM URINE (06/02/2024 1:39 AM EDT) Sodium, Random Urine <20 mmol/L 06/02/2024 2:18 AM EDT LABORATORY [facility] Urine Urine specimen / Unknown Non-blood Collection / Unknown 06/02/2024 1:39 AM EDT 06/02/2024 1:46 AM EDT us Fatuma Altman DO LAB URINE ORDERABLES Final Resu lt Performing Organization Address [facility] Co de Phone Number LABORATORY [facility] [address] [place] [address] * OSMOLALITY, URINE (06/02/2024 1:39 AM EDT) [facility] Osmolality, Urine 182 50 - 1,200 mOsm/kg 06/02/2024 1:53 AM EDT LABORATORY [facility] Urine Urine specimen / Unknown Non-blood Collection / Unknown 06/02/2024 1:39 AM EDT 06/02/2024 1:[address] [facility] DO LAB URINE ORDERABLES Final Resu lt Performing Organization Address [facility] Co de Phone Number LABORATORY [place] [address] [place] [address] * MRSA SCREEN, PCR (06/02/2024 12:38 AM EDT) [facility] MRSA PCR Result Negative Negative 4:02 AM EDT LABORATORY [facility] Comment:No Methicillin resis tant Staphylococcus aureus detected by PCR (amplified probe). Upper Respiratory Swab of internal nose / Unknown Non-blood Collection / Unknown 06/02/2024 12:38 AM EDT 06/02/2024 1:[address] [facility] DO LAB MICRO - GENERAL ORDERABLES Final Result Performing Organization Address [facility] de Phone Number LABORATORY [place] [address] [place] [address] * CULTURE, BLOOD (06/02/2024 12:15 AM EDT) [facility] Blood Culture Growth No growth 06/07/2024 12:01 AM EST LABORATORY [facility] Blood Venous blood specimen / Unknown Venipuncture / Unknown 06/02/2024 12:15 AM EDT 06/02/2024 12:[address] [facility] DO LAB MICRO - GENERAL ORDERABLES Final Result Performing Organization Address [facility] de Phone Number LABORATORY [place] [address] [place] [address] * CULTURE, BLOOD (06/02/2024 12:06 AM EDT) Blood Culture Growth No growth 06/07/2024 12:01 AM EST LABORATORY C Blood Venous blood specimen / Unknown Venipuncture / Unknown 06/02/2024 12:06 AM EDT 06/02/2024 12:32 AM EDT Fatuma Altman DO LAB MICRO - GENERAL ORDERABLES Final Result LABORATORY [facility] [address] [place] [address] * (ABNORMAL) BASIC METABOLIC PANEL (06/02/2024 12:06 AM EDT) Pathologist [facility] BUN 17 6 - 20 mg/dL 06/02/2024 12:41 AM EDT LABORATORY C CREATININE 1.6(H) 0.6 - 1.2 mg/dL 06/02/2024 12:41 AM EDT LABORATORY C EGFR 46(L) >=60 mL/min 06/02/2024 12:41 AM EDT [facility] Comment:eGFR is calculated b ased on the CKD-EPI 2020 equation. SODIUM 124(L) 135 - 146 mmol/L 06/02/2024 12:41 AM EDT [facility] POTASSIUM 3.8 3.5 - 5.1 mmol/L 06/02/2024 12:41 AM EDT [facility] CHLORIDE 89(L) 98 - 107 mmol/L 06/02/2024 12:41 AM EDT [facility] CO2 21(L) 22 - 32 mmol/L 06/02/2024 12:41 AM EDT [facility] ANION GAP 14 7 - 15 mmol/L 06/02/2024 12:41 AM EDT [facility] GLUCOSE 191(H) 70 - 120 mg/dL 06/02/2024 12:41 AM EDT [facility] CALCIUM 8.0(L) 8.4 - 10.2 mg/dL 06/02/2024 12:41 AM EDT LABORATORY [facility] Blood Venous blood specimen / Unknown Venipuncture / Unknown 06/02/2024 12:06 AM EDT 06/02/2024 12:14 AM EDT Fatuma Altman DO LAB BLOOD ORDERABLES Final Resu lt Performing Organization Address City/[facility]/ZIP Co de Phone Number LABORATORY [facility] [address] [place] [address] * (ABNORMAL) OSMOLALITY, SERUM (06/02/2024 12:06 AM EDT) Osmolality, Serum 269(L) 278 - 305 mOsm/kg 06/02/2024 1:20 AM EDT LABORATORY [facility] Blood Venous blood specimen / Unknown Venipuncture / Unknown 06/02/2024 12:06 AM EDT 06/02/2024 1:19 AM EDT [place] DO LAB BLOOD ORDERABLES Final Resu lt Performing Organization Address [facility] de Phone Number LABORATORY [facility] [address] [place] [address] * (ABNORMAL) CALCIUM, IONIZED, WHOLE BLOOD (06/01/2024 11:24 PM EDT) Pathologist [facility] Calcium, Ionized 1.10(L) 1.13 - 1.32 mmol/L 06/01/2024 11:33 PM EDT LABORATORY [facility] Blood Venous blood specimen / Unknown Venipuncture / Unknown 06/01/2024 11:24 PM EDT 06/01/2024 11:30 PM EDT [facility] BLOOD ORDERABLES Final Resu lt Performing Organization Address [facility] Co de Phone Number LABORATORY [facility] [address] [place] [address] * (ABNORMAL) TROPONIN T, HIGH SENSITIVITY (06/01/2024 11:23 PM EDT) Pathologist [facility] Troponin T, High Sensitivity 560(HH) <=22 ng/L 06/02/2024 12:48 AM EDT LABORATORY [facility] Blood Venous blood specimen / Unknown Venipuncture / Unknown 06/01/2024 11:23 PM EDT 06/01/2024 11:30 PM EDT [facility] Altman DO LAB BLOOD ORDERABLES Final Resu lt Performing Organization Address City/[facility]/ZIP Co de Phone Number LABORATORY [facility] [address] [place] [address] * (ABNORMAL) CRP (INFLAMMATORY MARKER) (06/01/2024 11:23 PM EDT) Pathologist [facility] CRP (Inflammatory Marker) 140(H) <=5 mg/L 06/02/2024 12:14 AM EDT LAB[facility]ORY [facility] Blood Venous blood specimen / Unknown Venipuncture / Unknown 06/01/2024 11:23 PM EDT 06/01/2024 11:[address] [facility] DO LAB BLOOD ORDERABLES Final Resu lt Performing Organization Address [facility] de Phone Number LABORATORY [facility] [address] [place] [address] * (ABNORMAL) HEPATIC FUNCTION PANEL (06/01/2024 11:23 PM EDT) [facility] Albumin 2.6(L) 3.8 - 5.0 g/dL 06/02/2024 12:18 AM EDT [facility] AST 23 10 - 50 U/L 06/02/2024 12:18 AM EDT LAB[facility] Alkaline Phosphatase 105 35 - 130 U/L 06/02/2024 12:18 AM EDT [facility] ALT 14 10 - 50 U/L 06/02/2024 12:18 AM EDT [facility] Bilirubin, Total 0.3 <=1.2 mg/dL 06/02/2024 12:18 AM EDT LAB[facility] Bilirubin, Direct <0.2 0.0 - 0.3 mg/dL 06/02/2024 12:18 AM EDT [facility] Protein 6.1 6.0 - 8.3 g/dL 06/02/2024 12:18 AM EDT [facility] Blood Venous blood specimen / Unknown Venipuncture / Unknown 06/01/2024 11:23 PM EDT 06/01/2024 11:30 PM EDT [facility] BLOOD ORDERABLES Final Resu lt Performing Organization Address City/[facility]/ZIP Co de Phone Number LABORATORY [facility] [address] [place] [address] * MAGNESIUM (06/01/2024 11:23 PM EDT) Magnesium 1.8 1.5 - 2.6 mg/dL 06/02/2024 12:18 AM EDT LABORATORY C Blood Venous blood specimen / Unknown Venipuncture / Unknown 06/01/2024 11:23 PM EDT 06/01/2024 11:30 PM EDT [facility] BLOOD ORDERABLES Final Resu lt Performing Organization Address [facility] Co de Phone Number LABORATORY [facility] [address] [place] [address] * (ABNORMAL) PHOSPHORUS (06/01/2024 11:23 PM EDT) Phosphorus 2.1(L) 2.5 - 4.8 mg/dL 06/02/2024 12:18 AM EDT LABORATORY [facility] Blood Venous blood specimen / Unknown Venipuncture / Unknown 06/01/2024 11:23 PM EDT 06/01/2024 11:30 PM EDT [facility]OD ORDERABLES Final Resu lt Performing Organization Address [facility] Co de Phone Number LABORATORY [facility] [address] [place] [address] * (ABNORMAL) BASIC METABOLIC PANEL (06/01/2024 11:23 PM EDT) BUN 17 6 - 20 mg/dL 06/02/2024 12:18 AM EDT [facility] CREATININE 1.5(H) 0.6 - 1.2 mg/dL 06/02/2024 12:18 AM EDT [facility] EGFR 47(L) >=60 mL/min 06/02/2024 12:18 AM EDT [facility] Comment:eGFR is calculated b ased on the CKD-EPI 2020 equation. SODIUM 124(L) 135 - 146 mmol/L 06/02/2024 12:18 AM EDT LAB[facility]ATORY [facility] POTASSIUM 3.9 3.5 - 5.1 mmol/L 06/02/2024 12:18 AM EDT [facility] CHLORIDE 89(L) 98 - 107 mmol/L 06/02/2024 12:18 AM EDT [facility] CO2 21(L) 22 - 32 mmol/L 06/02/2024 12:18 AM EDT [facility] ANION GAP 14 7 - 15 mmol/L 06/02/2024 12:18 AM EDT [facility] GLUCOSE 185(H) 70 - 120 mg/dL 06/02/2024 12:18 AM EDT [facility] CALCIUM 8.1(L) 8.4 - 10.2 mg/dL 06/02/2024 12:18 AM EDT [facility] Blood Venous blood specimen / Unknown Venipuncture / Unknown 06/01/2024 11:23 PM EDT 06/01/2024 11:30 PM EDT [facility] Fatuma Altman DO LAB BLOOD ORDERABLES Final Resu lt LABORATORY [facility] [address] [place] [address] * (ABNORMAL) CBC (06/01/2024 11:23 PM EDT) WBC 36.61(H) 4.00 - 10.80 K/uL 06/01/2024 11:37 PM EDT [facility] RBC 3.31 4.50 - 5.25 M/uL 06/01/2024 11:37 PM EDT [facility] HGB 8.7(L) 14.0 - 16.8 g/dL 06/01/2024 11:37 PM EDT [facility] HCT 27.7(L) 40.0 - 48.4 % 06/01/2024 11:37 PM EDT [facility] MCV 83.7 82.0 - 99.5 fL 06/01/2024 11:37 PM EDT LAB[facility] MCH 26.3 27.0 - 34.0 pg 06/01/2024 11:37 PM EDT LAB[facility] MCHC 31.4 32.0 - 36.0 g/dL 06/01/2024 11:37 PM EDT [facility] RDW 17.9 11.5 - 15.5 % 06/01/2024 11:37 PM EDT LAB[facility]AT[facility] PLT 498(H) 140 - 400 K/uL 06/01/2024 11:37 PM EDT [facility] MPV 8.7 6.6 - 11.1 fL 06/01/2024 11:37 PM EDT LAB[facility] nRBCs 0 <=0 /100 WBCs 06/01/2024 11:37 PM EDT [facility] Blood Venous blood specimen / Unknown Venipuncture / Unknown 06/01/2024 11:23 PM EDT 06/01/2024 11:30 PM EDT Fatuma Altman DO LAB BLOOD ORDERABLES Final Resu lt Performing Organization Address City/[facility]/ZIP Co de Phone Number LABORATORY [facility] [address] [place] [address] * LACTATE (06/01/2024 11:23 PM EDT) [facility] Lactate 1.5 0.4 - 2.0 mmol/L 06/02/2024 12:11 AM EDT LABORATORY [facility] Blood Venous blood specimen / Unknown Venipuncture / Unknown 06/01/2024 11:23 PM EDT 06/01/2024 11:30 PM EDT Fatuma Altman DO LAB BLOOD ORDERABLES Final Resu lt LABORATORY [facility] [address] [place] [address] documented in this encounter Visit Diagnoses Diagnosis Septic shock (HCC)- Primary 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 Chest pain Chest pain, unspecified Heart failure (HCC) Heart failure, unspecified Septic shock (HCC) Unspecified septicemia Rheumatoid arthritis involving multiple sites with positive rheumatoid factor (HCC) Prostate cancer (HCC) Malignant neoplasm of prostate Macular degeneration Macular degeneration (senile) of retina, unspecified BMI 35-39 ISOLATED (SEE ACTUAL BMI) Morbid obesity HTN, goal below 130/80 Unspecified essential hypertension Fuchs' corneal dystrophy Endothelial corneal dystrophy Prediabetes Other abnormal glucose Dyslipidemia, goal LDL below 160 Other and unspecified hyperlipidemia Heart failure (HCC) Heart failure, unspecified Chronic kidney disease, stage 3a (HCC) S/P angioplasty with stent Postsurgical percutaneous transluminal coronary angioplasty status Hyponatremia Hyposmolality and/or hyponatremia 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 Given 06/09/2024 12:56 AM EST 650 mg Alteplase (Cathflo Activase) inj 2 mg 2 mg, IV Push, PRN line occlusion , Starting on Thu06/08/24 at 0730, Until Thu06/10/24 at 1831, For 15 doses, For use in Catheter occlusion to be administered by IV Therapy nurses only at [facility] At [facility]: IV Therapy PICC RN, Nursing It Administrative Assistant, MSICU RN's and Emergency Department RN's *Obtain Alteplase (CathFlo Activase) *Reconstitute Alteplase (CathFlo Activase) 2mg in 2.2ml sterile water *Instill Alteplase (CathFlo Activase) into occluded lumen(s) *After 30 minutes dwell time in catheter, assess catheter patency by attempting to aspirate blood. If catheter is patent withdraw 4-5 ml of blood to remove Alteplase (CathFlo Activase) and residual clot. Flush lumen with 10ml 0.9% normal saline *If catheter function is not restored allow for further dwell up to 120 minutes. *If catheter function is not restored, a second dose of Alteplase (CathFlo Activase) may be administered. *if catheter is stll not restored call a physician aspirin enteric coated tab 81 mg 81 mg, Oral, Daily(AM), First dose on Thu06/02/24 at 0900, Until Discontinued, This med should NOT be Crushed or Chewed Given 06/10/2024 8:27 AM EST 81 mg Given 06/09/2024 9:07 AM EST 81 mg Given 06/08/2024 9:36 AM EST 81 mg buffered lidocaine 1 % inj Intradermal, ONCE PRN INTRA PROCEDURE, Starting on Thu06/06/24 at 1514, Until Thu06/06/24 at 1514, Intra-Op Given 06/06/2024 3:14 PM EST 10 mL cefTRIAXone in dextrose (Rocephin) IVPB 2 g IV Piggyback, 2 g, Q24H, 36 doses, First dose on Thu06/08/24 at 0800, Last dose on Thu07/13/24 at 0800, Administer over 30 Minutes New Bag 06/10/2024 8:35 AM EST 2 g 100 mL/hr New Bag 06/09/2024 9:29 AM EST 2 g 100 mL/hr New Bag 06/08/2024 9:34 AM EST 2 g 100 mL/hr chlorHEXIDINE (Periogard) 0.12 % oral rinse 15 mL 15 mL, Oral mucosal membrane, BID (), First dose on Thu06/02/24 at 0800, Until Discontinued, Include oral/gum/tooth brushing with medication. Use prepackaged oral kit suction tooth brush if available. Given 06/04/2024 8:39 AM EDT 15 mL Given 06/03/2024 8:18 AM EDT 15 mL Given 06/02/2024 8:28 PM EDT 15 mL chlorhexidine gluconate cloth 2 % pad External, [id number], First dose on Thu06/08/24 at 1000, Until Discontinued, Applied to appropriate patients per rock wool insulator's recommendations following daily care. May use more than one Pad (cloth/wipe) as needed to complete care. Given 06/10/2024 8:37 AM EST 1 Pad Given 06/09/2024 9:29 AM EST 1 Pad Given 06/08/2024 11:11 AM EST 1 Pad clopidogrel (pLAVix) tab 75 mg 75 mg, Oral, Daily(AM), First dose on Thu06/02/24 at 0900, Until Discontinued Given 06/10/2024 8:27 AM EST 75 mg Given 06/09/2024 9:07 AM EST 75 mg Given 06/08/2024 9:36 AM EST 75 mg CYANOCOBALAMIN (vitamin B-12) tab 1,000 mcg 1,000 mcg, Oral, Daily(AM), First dose on Thu06/06/24 at 0915, Until Discontinued Given 06/10/2024 8:27 AM EST 1,00 0 mcg Given 06/09/2024 9:07 AM EST 1,000 mcg Given 06/08/2024 9:36 AM EST 1,000 mcg dextrose 50% inj 25 mL 25 mL, IV Push, PRN Hypoglycemia, Other, For blood glucose 54 - 69 mg/dL or 70 - 100 mg/dL with symptoms AND patient is unresponsive, NPO, OR unable to swallow, Starting on Thu06/02/24 at 0052, Until Thu06/10/24 at 1831, Administer IV. Recheck blood glucose after 15 minutes. Notify provider. dextrose 50% inj 50 mL 50 mL, IV Push, PRN Hypoglycemia, Other, For blood glucose below 54 mg/dL AND patient unresponsive, NPO, OR unable to swallow, Starting on Thu06/02/24 at 0052, Until Thu06/10/24 at 1831, Administer IV. Recheck blood glucose in 15 minutes. Notify provider. Docusate Sodium (Colace) cap 100 mg 100 mg, Oral, BID (.AM/PM), First dose on Thu06/02/24 at 1100, Until Discontinued, For oral administration ONLY, if route of administration is other than oral and alternative product must be ordered. Given 06/06/2024 9:00 PM EST 100 mg Given 06/04/2024 10:10 PM EDT 100 mg Given 06/02/2024 8:28 PM EDT 100 mg Drug Level Check - Vancomycin Random ONCE - TIMED LAB, 1 dose, First dose on 06/13/24 at 0600, STAT, Kareem as Order Check Addressed once lab level is drawn. If antibiotic time changes, please contact the Pharmacy to adjust Lab and Drug Level Check times. Enoxaparin (Lovenox) inj 40 mg 40 mg, Subcutaneous, Daily(AM), First dose on 06/04/24 at 0930, Until Discontinued, If patient is on warfarin, inform provider if daily INR value is 2 or greater! Given 06/10/2024 8:27 AM EST 40 mg Abdom en Left Upper Given 06/09/2024 9:07 AM EST 40 mg Ab domen Left Lower Given 06/08/2024 9:36 AM EST 40 mg Ab domen Right Lower fentaNYL (PF) inj ONCE PRN INTRA PROCEDURE, Starting on Thu06/06/24 at 1500, Until Thu06/06/24 at 1509, Intra-Op Given 06/06/2024 3:09 PM EST 50 mcg Given 06/06/2024 3:00 PM EST 50 mcg folic acid tab 1 mg 1 mg, Oral, Daily(AM), First dose on Agnes 06/02/24 at 0900, Until Discontinued Given 06/10/2024 8:27 AM EST 1 mg Given 06/09/2024 9:07 AM EST 1 mg Given 06/08/2024 9:36 AM EST 1 mg Furosemide (Lasix) tab 20 mg 20 mg, Oral, BID (0900, 1600), First dose on Thu06/06/24 at 1000, Until Discontinued Given 06/10/2024 8:27 AM EST 20 m g Given 06/09/2024 6:04 PM EST 20 mg Given 06/09/2024 9:07 AM EST 20 mg glucagon (Glucagen) inj 1 mg 1 mg, Intramuscular, PRN Hypoglycemia, Other, If patient is unresponsive, or NPO and has no IV access, Starting on Agnes 06/02/24 at 0052, Until Thu06/10/24 at 1831, NPO and no IV access with either 1) blood glucose less than 100 mg/dL and symptomatic OR 2) blood glucose less than 70 mg/dL and asymptomatic Glucose (Glutose 15) 40 % gel 15 g of glucose 15 g of glucose, Oral, PRN Hypoglycemia (low sugar), Other, For blood glucose 54 - 69 mg/dL or 70 - 100 mg/dL with symptoms AND patient alert WITH difficulty chewing/swallowing, Starting on Thu06/02/24 at 0052, Until Thu06/10/24 at 1831, Administer gel. Recheck blood glucose after 15 minutes. Notify provider. 37.5 gram tube = 15 grams glucose = 1 each Glucose (Glutose 15) 40 % gel 30 g of glucose 30 g of glucose, Oral, PRN Hypoglycemia (low sugar), Other, For blood glucose below 54 mg/dL AND patient alert WITH difficulty chewing/swallowing, Starting on Thu06/02/24 at 0052, Until Thu06/10/24 at 1831, Administer gel. Recheck blood glucose after 15 minutes. Notify provider. 37.5 gram tube = 15 grams glucose = 1 each glucose chew tab 16 g 16 g, Oral, PRN Hypoglycemia, Other, For blood glucose 54 - 69 mg/dL or 70 - 100 mg/dL with symptoms and patient alert without difficulty chewing/swallowing., Starting on Thu06/02/24 at 0052, Until Thu06/10/24 at 1831 hEParin 100 UNIT/ML Lock Flush inj 300 Units 300 Units (3 mL), IV Push, PRN Other, PICC Line, Starting on Thu06/08/24 at 0730, Until Thu06/10/24 at 1831, For 1 dose, Prior to discharge, to each lumen hEParin inj 5,000 Units 5,000 Units, Subcutaneous, Q8H, First dose on Thu06/02/24 at 0600, Until Discontinued Given 06/04/2024 5:40 AM EDT 5,000 Units Thigh Left Given 06/03/2024 9:54 PM EDT 5,000 Units T high Right Given 06/03/2024 1:58 PM EDT 5,000 Units A bdomen Right Lower HYDROmorphone (Dilaudid) inj 0.2 mg 0.2 mg, IV Push, ONCE, On Thu06/02/24 at 0145, For 1 dose Given 06/02/2024 1:14 AM EDT 0.2 mg insulin aspart (NovoLOG) inj Subcutaneous, Q6H, First dose on Thu06/02/24 at 0130, Until Discontinued, MEDIUM DOSE (Usual starting dose): Sliding Scale Correctional insulin may be given if the patient is NPO. Dose based on standard build from Insulin Calculator. Do not modify insulin doses in administration instructions!, Glucose less than 70 instructions: Obtain STAT lab blood glucose and call covering provider., Glucose 80-150 (units): 0, Glucose 151-200 (units): 2, Glucose 201-250 (units): 4, Glucose 251-300 (units): 6, Glucose greater than 300 (units): 8, Glucose greater than 300 instructions: Give suggested insulin dose and call covering provider. Given 06/03/2024 5:37 AM EDT 2 Units Arm Left Upper Given 06/03/2024 12:14 AM EDT 2 Units A rm Right Upper Given 06/02/2024 6:00 PM EDT 2 Units Ab domen Left Lower insulin aspart (NovoLOG) inj Subcutaneous, W/MEALS AND HS, First dose (after last modification) on 06/04/24 at 1700, Until Discontinued, MEDIUM DOSE (Usual starting dose): Sliding Scale Correctional insulin may be given if the patient is NPO. Dose based on standard build from Insulin Calculator. Do not modify insulin doses in administration instructions!, Glucose less than 70 instructions: Obtain STAT lab blood glucose and call covering provider., Glucose 80-150 (units): 0, Glucose 151-200 (units): 2, Glucose 201-250 (units): 4, Glucose 251-300 (units): 6, Glucose greater than 300 (units): 8, Glucose greater than 300 instructions: Give suggested insulin dose and call covering provider. Given 06/06/2024 8:30 AM EST 152 Units Arm Left Upper isolyte 1,000 mL bolus infusion Intravenous, Administer entire volume within 60 minutes or less. Plasma-LYTE 148, isolyte-S, and isolyte-S pH 7.4 are considered equivalent - including for MAR barcode scanning., ONCE, 1 dose, On Agnes 06/02/24 at 0100 Rate Verify 06/02/2024 1:00 AM EDT 1000 mL/hr New Bag 06/02/2024 12:36 AM EDT 1,000 mL 1000 mL/hr isolyte-S pH 7.4 infusion Intravenous, at 75 mL/hr, Plasma-LYTE 148, isolyte-S, and isolyte-S pH 7.4 are considered equivalent - including for MAR barcode scanning., CONTINUOUS, Starting on Thu06/01/24 at 2345, Until 06/04/24 at 1015 Rate Verify 06/04/2024 10:25 AM EDT 75 m L/hr Restarted 06/04/2024 8:31 AM EDT 75 mL/hr New Bag 06/04/2024 1:11 AM EDT 75 mL/hr Lidocaine 1 % (PF) inj 1 mL 1 mL, Intradermal, PRN Other, Line Insertion, Starting on Thu06/08/24 at 0730, Until Thu06/08/24 at 1452, For 1 dose Given 06/08/2024 2:52 PM EST 1 mL Linezolid (Zyvox) ivpb 600 mg 600 mg, IV Piggyback, [id number], 28 doses, First dose on Thu06/02/24 at 0000, Last dose on Thu06/15/24 at 1200, Administer over 60 Minutes Rate Verify 06/03/2024 1:00 PM EDT 600 mg/hr 300 mL/hr New Bag 06/03/2024 12:35 PM EDT 600 mg 300 mL/hr New Bag 06/03/2024 12:11 AM EDT 600 mg 300 mL/hr LiquaCel 30 mL, Oral, BID (.AM/PM), First dose on Thu06/08/24 at 2100, Until Discontinued Given 06/10/2024 8:27 AM EST 30 mL Given 06/09/2024 10:09 PM EST 30 mL Given 06/09/2024 9:14 AM EST 30 mL magnesium sulfate 1 g in d5w 100mL LOCKED DOSE 1 g, IV Piggyback, Q1H, 2 doses, First dose on Thu06/02/24 at 0200, Last dose on Thu06/02/24 at 0300, Administer over 60 Minutes, Total dose is 2g New Bag 06/02/2024 3:09 AM EDT 1 g 100 mL/hr New Bag 06/02/2024 2:07 AM EDT 1 g 100 mL/hr melatonin tab 3 mg 3 mg, Oral, HS, First dose on Thu06/02/24 at 2200, Until Discontinued Given 06/09/2024 10:09 PM EST 3 mg Given 06/08/2024 9:37 PM EST 3 mg Given 06/07/2024 8:46 PM EST 3 mg metoprolol succinate XL (toPROL XL) tab 12.5 mg 12.5 mg, Oral, BID (.AM/PM), First dose on 06/04/24 at 0930, Until Discontinued, Hold for HR less than 60 or SBP below 100 and notify service if dose is held This med should NOT be Crushed or Chewed. Given 06/05/2024 8:34 AM EST 12.5 mg Given 06/04/2024 9:00 PM EDT 12.5 mg Given 06/04/2024 10:16 AM EDT 12.5 mg metoprolol succinate XL (toPROL XL) tab 25 mg 25 mg, Oral, BID (.AM/PM), First dose (after last modification) on 06/05/24 at 2100, Until Discontinued, Hold for HR less than 60 or SBP below 100 and notify service if dose is held This med should NOT be Crushed or Chewed. Given 06/10/2024 8: 27 AM EST 25 mg Given 06/09/2024 10:10 PM EST 25 mg Given 06/09/2024 9:07 AM EST 25 mg Metoprolol Tartrate (Lopressor) tab 6.25 mg 6.25 mg, Oral, Q12H, First dose on Agnes 06/02/24 at 2030, Until Discontinued, Hold for HR less than 60 or SBP below 100 and notify service if dose is held Given 06/02/2024 8:30 PM EDT 6.25 mg Miconazole Nitrate (Remedy) powder Topical, BID (.AM/PM), First dose on Agnes 06/09/24 at 1645, Until Discontinued, Apply to Groins Given 06/10/2024 8:35 AM EST Given 06/09/2024 6:03 PM EST midazolam (Versed) 2 MG/2ML inj ONCE PRN INTRA PROCEDURE, Starting on 06/06/24 at 1500, Until Thu06/06/24 at 1500, Intra-Op Given 06/06/2024 3:00 PM EST 1 mg NORepinephrine (Levophed) 4 mg in 250 ml D5W STANDARD CONCENTRATION 16 mcg/ml Order Mode: Standard Titration, Starting Rate (mcg/min): 2, Clinical Target: MAP 65-70, Infusion Titration Adjustments: Increase or Decrease by up to 5 mcg/min no more frequently than every 2 minutes to achieve specified goal, Maximum Dose: 30 mcg/min for nurse titration. Dose titrations 31-90 mcg/min require provider order. If administering vasopressor peripherally, please refer to the Peripheral Vasopressor Guidelines., Patient Transfer: Patient should be transferred to a higher level of care if rate exceeds nursing unit specific guidelines., 0-30 mcg/min (0-112.5 mL/hr), TITRATE, Starting on Agnes 06/02/24 at 0000, Until 06/03/24 at 1227, Peripheral IV Rate Change 06/03/2024 12:25 PM EDT 8 mcg/min 30 mL/hr Rate Change 06/03/2024 12:05 PM EDT 10 mcg/min 37.5 mL/hr Rate Verify 06/03/2024 12:00 PM EDT 12 mcg/min 45 mL/hr NORepinephrine (Levophed) 4 mg in 250 ml D5W STANDARD CONCENTRATION 16 mcg/ml Order Mode: Standard Titration, Starting Rate (mcg/min): 2, Clinical Target: Custom SBP, Custom Target SBP Range (mmHG): 100, Infusion Titration Adjustments: Increase or Decrease by up to 5 mcg/min no more frequently than every 2 minutes to achieve specified goal, Maximum Dose: 30 mcg/min for nurse titration. Dose titrations 31-90 mcg/min require provider order. If administering vasopressor peripherally, please refer to the Peripheral Vasopressor Guidelines., Patient Transfer: Patient should be transferred to a higher level of care if rate exceeds nursing unit specific guidelines., 0-30 mcg/min (0-112.5 mL/hr), TITRATE, Starting on 06/03/24 at 1300, Until 06/04/24 at 1232, Peripheral IV Restarted 06/04/2024 12:37 AM EDT 1 mcg/min 3.75 mL/hr Restarted 06/03/2024 8:30 PM EDT 2 mcg/min 7.5 mL/hr Rate Verify 06/03/2024 6:00 PM EDT 1 mcg/min 3.75 mL/hr NSS 0.9% 1,000 mL bolus infusion Intravenous, at 1,000 mL/hr Administer over 60 Minutes, Administer entire volume within 60 minutes or less., ONCE, 1 dose, On Agnes 06/02/24 at 0230 New Bag 06/02/2024 2:01 AM EDT 1,000 mL 1000 mL/hr Oral Hygiene: Mouth Swab with dentifrice Oral, Q4H LIMITED (00;04;12;16), First dose on Thu06/02/24 at 0000, Until Discontinued, To be used with 1.5% hydrogen peroxide solution or 0.05% cetylpyridium chloride oral rinse Given 06/04/2024 12:00 PM EDT Given 06/03/2024 12:00 AM EDT Given 06/02/2024 4:00 PM EDT Oral Hygiene: Mouth Swab with dentifrice Oral, PCHS, First dose on Thu06/08/24 at 1800, Until Discontinued, To be used with 1.5% hydrogen peroxide solution or 0.05% cetylpyridium chloride oral rinse Given 06/10/2024 12:20 PM EST 1 Kit Given 06/10/2024 8:36 AM EST 1 Kit Given 06/09/2024 10:11 PM EST 1 Kit oxyCODONE (Oxy IR) tab 5 mg 5 mg, Oral, Q4H PRN Pain, Severe, Starting on Thu06/02/24 at 1142, Until Thu06/10/24 at 1831 oxyCODONE (Roxicodone) oral syrup 2.5 mg 2.5 mg, Oral, Q4H PRN Pain, Moderate, Starting on Agnes 06/02/24 at 1141, Until Thu06/10/24 at 1831 Piperacillin-Tazobactam (Zosyn) 4.5 g in 100 mL NSS ivpb (FOUR hour infusion) IV Piggyback, 4.5 g, Q8HNOW, 15 doses, First dose on Thu06/02/24 at 0015, Last dose on Thu06/06/24 at 1615, Administer over 4 Hours, at 26.25 mL/hr New Bag 06/05/2024 8:40 AM EST 4.5 g 26.25 mL/hr New Bag 06/05/2024 12:24 AM EDT 4.5 g 26.25 mL/hr Rate Verify 06/04/2024 6:05 PM EDT 1.125 g/hr 26.25 mL/hr Piperacillin-Tazobactam (Zosyn) 4.5 g in 100 mL NSS ivpb (FOUR hour infusion) IV Piggyback, 4.5 g, Q8HNOW, First dose (after last modification) on 06/05/24 at 1600, Until Discontinued, Administer over 4 Hours, at 26.25 mL/hr New Bag 06/07/2024 11:14 PM EST 4.5 g 26.25 mL/hr Rate Verify 06/07/2024 6:19 PM EST 1.125 g/hr 26.25 mL/hr New Bag 06/07/2024 4:18 PM EST 4.5 g 26.25 mL/hr potassium and sodium phosphate (Phos-Nak) oral powder 2 Packet 2 Packet, Oral, ONCE, On [facility] 06/04/24 at 0715, For 1 dose, Mix in 1/3 glass of water, stir well and administer promptly. 1 packet contains Phosphorus 250 mg (~8 mMoles) + potassium 280 mg (~7.125 mEq) + sodium 160mg (~7.125 mEq) Given 06/04/2024 6:54 AM EDT 2 Packets potassium chloride ER tab 40 mEq 40 mEq, Oral, ONCE, On Agnes 06/02/24 at 1830, For 1 dose, This med should NOT be Crushed or Chewed Given 06/02/2024 6:06 PM EDT 40 mEq rosuvastatin (Crestor) tab 5 mg 5 mg, Oral, Daily(AM), First dose on Thu06/02/24 at 1115, Until Discontinued Given 06/10/2024 8:51 AM EST 5 mg Given 06/09/2024 9:08 AM EST 5 mg Given 06/08/2024 9:41 AM EST 5 mg senna (Senokot) 1 Tablet 1 Tablet, Oral, Daily(AM), First dose on Thu06/02/24 at 1100, Until Discontinued Given 06/02/2024 11:14 AM EDT 1 Tablet sodium chloride 0.9 % flush central line 10 mL 10 mL, IV Push, Q8H, First dose on Thu06/08/24 at 2200, Until Discontinued, TO UNUSED PORTS Do not flush if lock, PICC, or central line not in place; IV infusing or unable to flush. Given 06/10/2024 2:00 PM EST 10 mL Given 06/10/2024 6:00 AM EST 10 mL Given 06/09/2024 10:00 PM EST 10 mL sodium chloride 0.9 % flush peripheral bernard 3 mL 3 mL, IV Push, Q8H, First dose on Thu06/01/24 at 2345, Until Discontinued, Do not flush if lock, PICC, or central line not in place; IV infusing or unable to flush. Given 06/07/2024 10:00 PM EST 3 mL Given 06/07/2024 2:00 PM EST 3 mL Given 06/07/2024 6:00 AM EST 3 mL sodium PHOSphate 30 mmol in NSS 250 mL (NaPhos) ivpb 30 mmol, Peripheral IV, ONCE, 1 dose, On Thu06/02/24 at 0100 Rate Verify 06/02/2024 6:00 AM EDT 6 mmol/hr 53 mL/hr New Bag 06/02/2024 1:46 AM EDT 30 mmol 53 mL/hr Urea (Ure-Na) powder packet 15 g 15 g, Oral, BID (.AM/PM), First dose on Thu06/02/24 at 2100, Until Discontinued Given 06/03/2024 8:07 AM EDT 15 g Given 06/02/2024 8:28 PM EDT 15 g Vancomycin (Vancocin) 1,750 mg in NSS 500 mL ivpb 1,750 mg, IV Piggyback, Q24H, First dose (after last modification) on Thu06/06/24 at 1200, Until Discontinued New Bag 06/07/2024 12:45 PM EST 1,750 mg 263.75 mL/hr New Bag 06/06/2024 12:44 PM EST 1,750 mg 263.75 mL/hr Vancomycin (Vancocin) 1,750 mg in NSS 500 mL ivpb 1,750 mg, IV Piggyback, Q24H, First dose (after last reorder) on Thu06/08/24 at 1200, Until Discontinued New Bag 06/10/2024 12:20 PM EST 1,750 mg 263.75 mL/hr New Bag 06/09/2024 2:43 PM EST 1,750 mg 263.75 mL/hr New Bag 06/08/2024 12:30 PM EST 1,750 mg 263.75 mL/hr Vancomycin (Vancocin) 1000 mg in NSS 250 mL ivpb LOCKED DOSE 1,000 mg, IV Piggyback, [id number], First dose on Thu06/04/24 at 0900, Until Discontinued Rate Verify 06/05/2024 9:19 PM EST 1,000 mg/hr 255 mL/hr New Bag 06/05/2024 9:15 PM EST 1,000 mg 255 mL/hr New Bag 06/05/2024 1:12 PM EST 1,000 mg 255 mL/hr Vancomycin (Vancocin) 2,500 mg in NSS 500 mL ivpb 2,500 mg, IV Piggyback, ONCE, 1 dose, On Thu06/03/24 at 2030 New Bag 06/03/2024 8:46 PM EDT 2,500 mg 21 4 mL/hr documented in this encounter Active and Recently Administered Medications Times are shown in EST. Scheduled Medication Order 06/08/2024 06/09/2024 06/10/2024 aspirin enteric coated tab 81 mg 81 mg, Oral, Daily(AM), First dose on Thu06/02/24 at 0900, Until Discontinued, This med should NOT be Crushed or Chewed 0936 (Given - Provider: Andra Moreno RN) 0907 (Given - Provider: Radha Cohn RN) 0827 (Given - Provider: Марина Cline RN) cefTRIAXone in dextrose (Rocephin) IVPB 2 g IV Piggyback, 2 g, Q24H, 36 doses, First dose on Thu06/08/24 at 0800, Last dose on Thu07/13/24 at 0800, Administer over 30 Minutes 0934 (New Bag - Provider: Andra Moreno RN) 0929 (New Bag - Provider: Radha Cohn RN)0959 (Stopped - Provider: Radha Cohn RN) 0835 (New Bag - Provider: Марина Cline RN)1831 (Due: Stopped) chlorhexidine gluconate cloth 2 % pad External, [id number], First dose on Thu06/08/24 at 1000, Until Discontinued, Applied to appropriate patients per rock wool insulator's recommendations following daily care. May use more than one Pad (cloth/wipe) as needed to complete care. 1111 (Given - Provider: Andra Moreno RN) 0929 (Given - Provider: Radha Cohn, ROSA) 0837 (Given - Provider: Марина Cline RN) clopidogrel (pLAVix) tab 75 mg 75 mg, Oral, Daily(AM), First dose on Thu06/02/24 at 0900, Until Discontinued 09 (Given - Provider: Andra Moreno RN) 906 (Given - Provider: Radha Cohn, ROSA) 826 (Given - Provider: Марина Cline, ROSA) CYANOCOBALAMIN (vitamin B-12) tab 1,000 mcg 1,000 mcg, Oral, Daily(AM), First dose on Thu06/06/24 at 0915, Until Discontinued 09 (Given - Provider: Andra Moreno RN) 906 (Given - Provider: Radha Cohn RN) 826 (Given - Provider: Марина Cline, ROSA) Docusate Sodium (Colace) cap 100 mg 100 mg, Oral, BID (.AM/PM), First dose on Thu06/02/24 at 1100, Until Discontinued, For oral administration ONLY, if route of administration is other than oral and alternative product must be ordered. 0942 (Not Given - Provider: Andra Moreno RN - Reason: Refused-Notify Provider - Comment: August Hebert MD notified with [facility])2100 (Not Given - Provider: Arabella Escalona RN - Reason: Refused-Notify Provider - Comment: maurisio snow [facility] made aware) 906 (Not Given - Provider: Radha Cohn RN - Reason: Refused-Notify Provider - Comment: Dr. Hebert [facility] service aware of loose stool)2100 (Not Given - Provider: Arabella Escalona RN - Reason: Refused-Notify Provider - Comment: Leroy Vega [facility] made aware) 09 (Not Given - Provider: Марина Cline RN - Reason: Other-Notify Provider - Comment: patient having requent bowel movements) Drug Level Check - Vancomycin Random ONCE - TIMED LAB, 1 dose, First dose on Thu06/13/24 at 0600, STAT, Kareem as Order Check Addressed once lab level is drawn. If antibiotic time changes, please contact the Pharmacy to adjust Lab and Drug Level Check times. Enoxaparin (Lovenox) inj 40 mg 40 mg, Subcutaneous, Daily(AM), First dose on Thu06/04/24 at 0930, Until Discontinued, If patient is on warfarin, inform provider if daily INR value is 2 or greater! 0936 (Given - Provider: Andra Moreno RN) 09 (Given - Provider: Radha Cohn RN) 08 (Given - Provider: Марина Cline, ROSA) folic acid tab 1 mg 1 mg, Oral, Daily(AM), First dose on Agnes 06/02/24 at 0900, Until Discontinued 09 (Given - Provider: Andra Moreno RN) 09 (Given - Provider: Radha Cohn RN) 08 (Given - Provider: Марина Cline RN) Furosemide (Lasix) tab 20 mg 20 mg, Oral, BID (0900, 1600), First dose on 06/06/24 at 1000, Until Discontinued 935 (Given - Provider: Andra Moreno RN)1700 (Given - Provider: Cintia Moreno RN) 09 (Given - Provider: Radha Cohn RN)180 (Given - Provider: SN Charis) 826 (Given - Provider: Марина Cline RN) insulin aspart (NovoLOG) inj Subcutaneous, W/MEALS AND HS, First dose (after last modification) on 06/04/24 at 1700, Until Discontinued, MEDIUM DOSE (Usual starting dose): Sliding Scale Correctional insulin may be given if the patient is NPO. Dose based on standard build from Insulin Calculator. Do not modify insulin doses in administration instructions!, Glucose less than 70 instructions: Obtain STAT lab blood glucose and call covering provider., Glucose 80-150 (units): 0, Glucose 151-200 (units): 2, Glucose 201-250 (units): 4, Glucose 251-300 (units): 6, Glucose greater than 300 (units): 8, Glucose greater than 300 instructions: Give suggested insulin dose and call covering provider. 0800 (Not Given - Provider: Andra Moreno RN - Reason: Parameter(s) Not Met)1200 (Not Given - Provider: Andra Moreno RN - Reason: Parameter(s) Not Met)1700 (No Insulin - Provider: Cintia Moreno RN - Reason: Parameter(s) Not Met)2200 (No Insulin - Provider: Arabella Escalona RN - Reason: Parameter(s) Not Met - Comment: bedside glucose 119) 0800 (No Insulin - Provider: Radha Cohn RN - Reason: Parameter(s) Not Met)1200 (No Insulin - Provider: Radha Cohn RN - Reason: Parameter(s) Not Met)1700 (No Insulin - Provider: Radha Chon RN - Reason: Parameter(s) Not Met)2200 (No Insulin - Provider: Arabella Escalona RN - Reason: Parameter(s) Not Met - Comment: bedside glucose 128) 0800 (No Insulin - Provider: Марина Cline RN - Reason: Parameter(s) Not Met)1200 (No Insulin - Provider: Марина Cline RN - Reason: Parameter(s) Not Met) LiquaCel 30 mL, Oral, BID (.AM/PM), First dose on Thu06/08/24 at 2100, Until Discontinued 2137 (Given - Provider: Arabella Escalona RN) 913 (Given - Provider: Radha Cohn RN)2208 (Given - Provider: Arabella Escalona RN) 826 (Given - Provider: Марина Cline RN) melatonin tab 3 mg 3 mg, Oral, HS, First dose on Thu06/02/24 at 2200, Until Discontinued 2136 (Given - Provider: Arabella Escalona RN) 2208 (Given - Provider: Arabella Escalona RN) metoprolol succinate XL (toPROL XL) tab 25 mg 25 mg, Oral, BID (.AM/PM), First dose (after last modification) on Thu06/05/24 at 2100, Until Discontinued, Hold for HR less than 60 or SBP below 100 and notify service if dose is held This med should NOT be Crushed or Chewed. 09 (Given - Provider: Andra Moreno RN)2136 (Given - Provider: Arabella Escalona RN) 906 (Given - Provider: Radha Cohn RN)2209 (Given - Provider: Arabella Escalona RN) 826 (Given - Provider: Марина Cline RN) Miconazole Nitrate (Remedy) powder Topical, BID (.AM/PM), First dose on Thu06/09/24 at 1645, Until Discontinued, Apply to Groins 1803 (Given - Provider: SN Charis) 0835 (Given - Provider: Марина Cline RN) Oral Hygiene: Mouth Swab with dentifrice Oral, PCHS, First dose on Thu06/08/24 at 1800, Until Discontinued, To be used with 1.5% hydrogen peroxide solution or 0.05% cetylpyridium chloride oral rinse 1700 (Given - Provider: Cintia Moreno RN)2139 (Given - Provider: Arabella Escalona RN) 0900 (Given - Provider: Radha Cohn RN)1300 (Given - Provider: Radha Cohn RN)1800 (Given - Provider: Radha Cohn RN)2211 (Given - Provider: Arabella Escalona RN) 0836 (Given - Provider: Марина Cline RN)1220 (Given - Provider: Марина Cline RN) rosuvastatin (Crestor) tab 5 mg 5 mg, Oral, Daily(AM), First dose on Thu06/02/24 at 1115, Until Discontinued 0941 (Given - Provider: Andra Moreno RN) 0908 (Given - Provider: Radha Cohn RN) 0851 (Given - Provider: Марина Cline RN) senna (Senokot) 1 Tablet 1 Tablet, Oral, Daily(AM), First dose on Thu06/02/24 at 1100, Until Discontinued 0942 (Not Given - Provider: Andra Moreno RN - Reason: Refused-Notify Provider - Comment: August Hebert MD notified with [facility]) 0907 (Not Given - Provider: Radha Cohn RN - Reason: Refused-Notify Provider - Comment: Dr. Hebert [facility] service aware of loose stool) 0900 (Not Given - Provider: Марина Cline RN - Reason: Other-Notify Provider - Comment: patient having frequent bowel movements) sodium chloride 0.9 % flush central line 10 mL 10 mL, IV Push, Q8H, First dose on Thu06/08/24 at 2200, Until Discontinued, TO UNUSED PORTS Do not flush if lock, PICC, or central line not in place; IV infusing or unable to flush. 2200 (Given - Provider: Arabella Escalona RN) 0600 (Given - Provider: Arabella Escalona RN - Comment: PICC)1400 (Given - Provider: Radha Cohn, ROSA)2200 (Given - Provider: Arabella Escalona RN - Comment: PIC right upper arm) 0600 (Given - Provider: Arabella Escalona RN - Comment: PICC right upper arm)1400 (Given - Provider: Марина Cline RN) Vancomycin (Vancocin) 1,750 mg in NSS 500 mL ivpb 1,750 mg, IV Piggyback, Q24H, First dose (after last reorder) on Thu06/08/24 at 1200, Until Discontinued 1230 (New Bag - Provider: Andra Moreno RN) 1443 (New Bag - Provider: Radha Cohn, ROSA)1646 (Stopped - Provider: Radha Cohn RN) 1220 (New Bag - Provider: Марина Cline RN)1831 (Due: Stopped) PRN Medication Order 06/08/2024 06/09/2024 06/10/2024 Acetaminophen (Tylenol) tab 650 mg 650 mg, Oral, Q6H PRN Pain, Mild, Fever >38C(100.5F), Starting on Thu06/01/24 at 2331, Until Thu06/10/24 at 1831, Maximum of 4 grams (4000 mg) per day. 0056 (Given - Provider: Arabella Escalona RN - Comment: pain 4/10) albuterol (VENTOLIN HFA/PROVENTIL HFA) inhaler 1 Puff, Inhalation, Q6H PRN Dyspnea, Starting on Thu06/01/24 at 2329, Until Thu06/10/24 at 1831, Shake can for 10 seconds before each puff SEND INHALER WITH PATIENT! WASTE INFO ( IF NOT SENT HOME WITH PATIENT) : Return unused medication to pharmacy in zip lock bag for disposal into black container labeled SP. Alteplase (Cathflo Activase) inj 2 mg 2 mg, IV Push, PRN line occlusion , Starting on Thu06/08/24 at 0730, Until Thu06/10/24 at 1831, For 15 doses, For use in Catheter occlusion to be administered by IV Therapy nurses only at [facility] At [facility]: IV Therapy PICC RN, Nursing It Administrative Assistant, [facility]'s and [facility] RN's *Obtain Alteplase (CathFlo Activase) *Reconstitute Alteplase (CathFlo Activase) 2mg in 2.2ml sterile water *Instill Alteplase (CathFlo Activase) into occluded lumen(s) *After 30 minutes dwell time in catheter, assess catheter patency by attempting to aspirate blood. If catheter is patent withdraw 4-5 ml of blood to remove Alteplase (CathFlo Activase) and residual clot. Flush lumen with 10ml 0.9% normal saline *If catheter function is not restored allow for further dwell up to 120 minutes. *If catheter function is not restored, a second dose of Alteplase (CathFlo Activase) may be administered. *if catheter is stll not restored call a physician dextrose 50% inj 25 mL 25 mL, IV Push, PRN Hypoglycemia, Other, For blood glucose 54 - 69 mg/dL or 70 - 100 mg/dL with symptoms AND patient is unresponsive, NPO, OR unable to swallow, Starting on Agnes 06/02/24 at 0052, Until Thu06/10/24 at 183, Administer IV. Recheck blood glucose after 15 minutes. Notify provider. dextrose 50% inj 50 mL 50 mL, IV Push, PRN Hypoglycemia, Other, For blood glucose below 54 mg/dL AND patient unresponsive, NPO, OR unable to swallow, Starting on Agnes 06/02/24 at 0052, Until Thu06/10/24 at 183, Administer IV. Recheck blood glucose in 15 minutes. Notify provider. glucagon (Glucagen) inj 1 mg 1 mg, Intramuscular, PRN Hypoglycemia, Other, If patient is unresponsive, or NPO and has no IV access, Starting on Agnes 06/02/24 at 0052, Until Thu06/10/24 at 183, NPO and no IV access with either 1) blood glucose less than 100 mg/dL and symptomatic OR 2) blood glucose less than 70 mg/dL and asymptomatic Glucose (Glutose 15) 40 % gel 15 g of glucose 15 g of glucose, Oral, PRN Hypoglycemia (low sugar), Other, For blood glucose 54 - 69 mg/dL or 70 - 100 mg/dL with symptoms AND patient alert WITH difficulty chewing/swallowing, Starting on Thu06/02/24 at 0052, Until Thu06/10/24 at 183, Administer gel. Recheck blood glucose after 15 minutes. Notify provider. 37.5 gram tube = 15 grams glucose = 1 each Glucose (Glutose 15) 40 % gel 30 g of glucose 30 g of glucose, Oral, PRN Hypoglycemia (low sugar), Other, For blood glucose below 54 mg/dL AND patient alert WITH difficulty chewing/swallowing, Starting on Thu06/02/24 at 0052, Until Thu06/10/24 at 183, Administer gel. Recheck blood glucose after 15 minutes. Notify provider. 37.5 gram tube = 15 grams glucose = 1 each glucose chew tab 16 g 16 g, Oral, PRN Hypoglycemia, Other, For blood glucose 54 - 69 mg/dL or 70 - 100 mg/dL with symptoms and patient alert without difficulty chewing/swallowing., Starting on Thu06/02/24 at 0052, Until Thu06/10/24 at 183 hEParin 100 UNIT/ML Lock Flush inj 300 Units 300 Units (3 mL), IV Push, PRN Other, PICC Line, Starting on Thu06/08/24 at 0730, Until Thu06/10/24 at 1831, For 1 dose, Prior to discharge, to each lumen Lidocaine 1 % (PF) inj 1 mL (COMPLETED) 1 mL, Intradermal, PRN Other, Line Insertion, Starting on Thu06/08/24 at 0730, Until Thu06/08/24 at 1452, For 1 dose 1452 (Given - Provider: Clemencia Dee RN - Comment: picc line placement) oxyCODONE (Oxy IR) tab 5 mg 5 mg, Oral, Q4H PRN Pain, Severe, Starting on Thu06/02/24 at 1142, Until Thu06/10/24 at 1831 oxyCODONE (Roxicodone) oral syrup 2.5 mg 2.5 mg, Oral, Q4H PRN Pain, Moderate, Starting on Thu06/02/24 at 1141, Until Thu06/10/24 at 1831 documented in this encounter Advance Directives * Full Code (Latest Code Status on File) Date Activated Date Inactivated Comments 06/01/2024 11:10 PM 06/10/2024 6:36 PM This order reflects the patients wishes and were consensually agreed upon. Question Answer Comments Discussion of Advance Direct teo occurred with: Not Discussed due to patient's condition Care Teams Audio Specialist Relationship Specialty Start Date End Date Rhianna Huitron DO [address] [facility] [place] [address] PCP - General Family Medicine 07/11/19 documented as of this encounter
--- OUTSIDE RECORDS SUMMARY | 2024-11-18 02:25 | External Medical Summary ---
Author Name Unknown Address Unknown Organization : Laboratory Report Ordering Provider Test Date Status CHRISTIANO PEARL 06/09/2024 07:40:45 Final Observation Date Value Abnormality Reference (Units ) Status Glucose Point of Care 06/09/2024 07:40:45 120 70-120 (mg/dL) Final Performing Location
--- OUTSIDE RECORDS SUMMARY | 2024-11-18 02:25 | External Medical Summary ---
Author Name Unknown Address Unknown Organization : Laboratory Report Ordering Provider Test Date Status CHRISTIANO PEARL 06/10/2024 11:27:16 Final Observation Date Value Abnormality Reference (Units ) Status Glucose Point of Care 06/10/2024 11:27:16 124 Above high normal 70-120 (mg/dL) Final Performing Location
--- OUTSIDE RECORDS SUMMARY | 2024-11-18 02:25 | External Medical Summary | Summary of Care ---
Author Name Unknown Organization [facility] Address [address] [place] [address] Phone [phone] Care Team Providers Care Strap Cutting Machine Operator Name Role Phone Kat Huitron DO Primary Care Provider Reason for Visit * Reason Onset Date Comments Hospital Follow-Up 06/08/2024 [facility] 1 mo Camilo f/u needed. No appt avail. Please assist with patient scheduling. Thank you. Encounter Details Date Type Department Care Team (Late st Contact Info) Description 06/08/2024 Telephone Infectious Disease, [place] [address] [place], [place] [id number] Mary Christensen MD [address] [place], [place] [id number] Hospital Follow-Up ([facility] 06/07/24 1 mo K... Allergies Active Allergy Reactions Criticality Noted Date Comments Brent Inhibitors Cough Low 11/26/2017 Alendronate Sodium Muscle pain 04/11/2019 Heartburn, constipation, joint pain Misoprostol Diarrhea 08/08/2003 Niacin Er (Antihyperlipidemic) 11/26/2010 Gas, hot flashes Pollen 01/01/2018 Watery eyes, sneezing Pravastatin 02/26/2007 Upset stomach, all .Statins Simvastatin 02/26/2007 Upset stomach documented as of this encounter (statuses as of 06/08/2024) Medications Medication Sig Dispensed Refills Start Date [...] Hour (toPROL XL)Indications:NSVT (nonsustained ventricular tachycardia) ([facility]),Non-ischemic cardiomyopathy ([facility]),Chronic HFrEF (heart failure with reduced ejection fraction) ([facility]) Take 1 Tablet by mouth in the morning and 1 Tablet before bedtime. 180 Tablet 1 05/31/2024 Suspended Additional Information Furosemide 20 MG Oral Tablet (Lasix)Indications: FREDY (acute kidney injury) ([facility]),Hyponatremia Take 1 Tablet by mouth in the morning and 1 Tablet before bedtime. 60 Tablet 5 05/31/2024 Suspended Additional Information Urea 15 GM Oral Packet (Ure-Na)Indications :FREDY (acute kidney injury) (HCC),Hyponatremia Take 15 g by mouth in the morning and 15 g before bedtime. 60 Packet 5 05/31/2024 Suspended Additional Information documented as of this encounter (statuses as of 06/08/2024) Active Problems Problem Noted Date Diagnosed Date [...] glucose 12/16/2005 Macular degeneration 12/02/1999 DISC DIS [id number] documented as of this encounter (statuses as of 06/08/2024) Resolved Problems Problem Noted Date Diagnosed Date [...] colonoscopy in 5 years ARTHRITIS,RHEUMATOID 07/07/2006 016 [id number] 07/07/200611/01 Overview: Renamed Per Clinical Trials Billing Project. Pt is a participant in the [employer] ([employer] [place]) national data collection study. For further information please call Dr Hari Clark or Julia White, RN, CCRC at [phone] [facility] OTHER*[id number] 07/07/2006 01/28/2010 Overview: Renamed Per Clinical Trials Billing Project. Pt is a participant in the [facility] ([employer] [place]) national data collection study. For further information please call Dr Hari Clark or Julia White, RN, CCRC at [phone] ADVANCE DIRECTIVE INFORMATION 05/19/2006 06/06/2024 Overview: Yes-advised to bring copy in to be scanned into EMR. Hearing loss 12/02/1999 03/29/2013 documented as of this encounter (statuses as of 06/08/2024) Immunizations Name Administration Dates Next Due COVID-19 mRNA, LNP-s, No Pre serve, 2-Dose Series ([place]) 06/14/2021,10/10/2020,09/12/2020 COVID-19, LNP-s, No Preserve , Yousuf-sucrose, Ages 12+ ([place]) 12/25/2021 Covid-19, Mrna, Lnp-s, Pf, B ivalent, [...] encounter Miscellaneous Notes * Telephone Encounter - Syndey Monroy OSA - 06/08/2024 6:12 AM EST [facility] 06/07/24 1 mo Camilo f/u needed. No appt avail. Please assist with patient scheduling. Thank you. Janes Wharton 06/01/2024 11:08 PM Admission Description: 79 year old male Department: [facility] 6 IP [facility] Message Patient Name: JANES WHARTON([id number]) Sex: Male : 1945 PCP: KAT HUITRON Center: [facility] Types of orders made on 06/07/2024: IP Post Discharge , Lab, Medications, Point of Care Testing, Point of Care Testing - Unsolicited Results Order Date:06/07/2024 Ordering User:MARY CHRISTENSEN [[id number]] Attending Provider:Mendel Kidd DO [[id number]] Authorizing Provider: Mary Christensen MD [[id number]] Department:[facility] 6 [facility][[id number]] Order Specific Information Order: RETURN APPT [CUSTOM: [id number]] Order #: [id number]: [id number] Priority: Routine Class: Nursing Unit Department (Single Entry) -> Infectious Disease Appt Needed Within: (Specify # of Days, Weeks, Months) -> 1 Mo Provider -> MARY CHRISTENSEN Released on: 06/07/2024 7:49 PM Priority: Routine Class: Nursing Unit Department (Single Entry) -> Infectious Disease Appt Needed Within: (Specify # of Days, Weeks, Months) -> 1 Mo Provider -> MARY CHRISTENSEN Released on: 06/07/2024 7:49 PM documented in this encounter Plan of Treatment Upcoming Encounters Date Type Department Care Team (Late st Contact Info) Description 06/20/2024 10:00 AM EST Laboratory Laboratory, [place] [address] [place] [address] [place] [address] [place] [address] 06/27/2024 2:30 PM EST Office Visit Hematology/Oncology [facility] [address] [facility] [phone] Korin Fisher CRNP [address] [facility] [place] [id number] 06/28/2024 2:15 PM EST Procedure Only Urology, [facility] [place] [address] [facility] [place] [address] Vinay Sexton MD [address] [place] [id number] 09/08/2024 3:40 PM EST Office Visit Nephrology, [facility] [address] [facility] [place] [address] Bryson Ellis MD [address] [facility] [place] [id number] 10/17/2024 10:30 AM EDT Office Visit Cardiology, [facility] [place] [address] [facility] [place] [address] Dmitri Greenfield DO [address] [facility] [place] [address] 03/21/2025 11:45 AM EDT Telemedicine Urology, [facility] [place] [address] [facility] [place] [address] Vinay Sexton MD [address] [facility] [place] [address] Scheduled Procedures Name Priority Associated Diagnoses Date/Ti [...] 05/08/2022, 05/07/2021, 04/17/2020, Additional history exists GFR 12/04/2024 06/06/2024, 110 10/2023, 06/04/2024, Additional history exists HbA1c 06/02/2025 06/02/2024, 04/0 12/2023, 06/22/2023, Additional history exists CKD HGB USE SMARTSET 48786 06/06/202506/06, 06/05/2024, 06/04/2024, Additional history exists CKD PHOS USE SMARTSET 72518 06/06/20250 11/2023, 06/05/2024, 06/04/2024, Additional history exists DTap/Tdap Vaccines (3 - [...] D LEVEL ONCE IN A LIFETIME-USE SMARTSET# 69614 Completed 03/21/2024, 12/25/2023, 05/27/2021, Additional history exists [...] Discussed due to patient's condition Care Teams Strap Cutting Machine Operator Relationship Specialty Start Date End Date Kat Huitron DO [address] [place] [facility] [place] [address] PCP - General Family Medicine 07/11/19 documented as of this encounter
--- OUTSIDE RECORDS SUMMARY | 2024-11-18 02:25 | External Medical Summary ---
Author Name Unknown Address Unknown Organization : Laboratory Report Ordering Provider Test Date Status CHRISTIANO PEARL 06/08/2024 21:17:57 Final Observation Date Value Abnormality Reference (Units ) Status Glucose Point of Care 06/08/2024 21:17:57 119 70-120 (mg/dL) Final Performing Location
--- OUTSIDE RECORDS SUMMARY | 2024-11-18 02:25 | External Medical Summary ---
Author Name Unknown Address Unknown Organization K01:LABORATORY [facility] - [address] [facility] [place] [address] Laboratory Report Ordering Provider Test Date Status CHRISTIANO PEARL 06/08/2024 09:15:00 Final Observation Date Value Abnormality Reference (Units ) Status SYNC LEUKOCYTES IN BLOOD BY AUTOMATED COUNT 06/08/2024 09:15:00 7.88 4.00-10.80 (K/uL) Final Segs 06/08/2024 09:15:00 76.2 Above high normal 40.0-75.0 (%) Final Lymphs % 06/08/2024 09:15:00 8.5 Below low normal 18.0-42.0 (%) Final Monos 06/08/2024 09:15:00 9.1 1.0-11.0 (%) Final Eosinophils 06/08/2024 09:15:00 4.1 0.0-6.0 (%) Final Basos 06/08/2024 09:15:00 0.5 0.0-2.0 (%) Final Immature Granulocyte, Percent 06/08/2024 09:15:00 1.6 0.0-2.0 (%) Final Absolute Segs 06/08/2024 09:15:00 6.00 1.80-7.70 (K/uL) Final Lymphs, absolute 06/08/2024 09:15:00 0.67 Below low normal 1.00-4.80 (K/ul) Final Monos, Abs 06/08/2024 09:15:00 0.72 0.00-1.10 (K/uL) Final Eos, Abs 06/08/2024 09:15:00 0.32 0.00-0.70 (K/uL) Final Basos, Abs 06/08/2024 09:15:00 0.04 0.00-0.20 (K/uL) Final Immature Granulocytes, Number 06/08/2024 09:15:00 0.13 0.00-0.20 (K/uL) Final Performing Location LABORATORY [facility] - [facility] [place] [address]
--- OUTSIDE RECORDS SUMMARY | 2024-11-18 02:25 | External Medical Summary ---
Author Name Unknown Address Unknown Organization K01:LABORATORY [facility] - [facility] [address] [facility] [address] Laboratory Report Ordering Provider Test Date Status CHRISTIANO PEARL 06/08/2024 09:15:00 Final Observation Date Value Abnormality Reference (Units ) Status WBC, Total 06/08/2024 09:15:00 7.88 4.00-10.80 (K/uL) Final RBC 06/08/2024 09:15:00 3.47 4.50-5.25 (M/uL) Final Hemoglobin 06/08/2024 09:15:00 9.1 Below low normal 14.0-16.8 (g/dL) Final HCT 06/08/2024 09:15:00 31.1 Below low normal 40.0-48.4 (%) Final MCV 06/08/2024 09:15:00 89.6 82.0-99.5 (fL) Final MCH 06/08/2024 09:15:00 26.2 27.0-34.0 (pg) Final MCHC 06/08/2024 09:15:00 29.3 32.0-36.0 (g/dL) Final RDW 06/08/2024 09:15:00 18.5 11.5-15.5 (%) Final Platelets 06/08/2024 09:15:00 345 140-400 (K/uL) Final MPV 06/08/2024 09:15:00 9.1 6.6-11.1 (fL) Final Nucleated erythrocytes/100 leukocytes [Ratio] in Blood by Automated count 06/08/2024 09:15:00 0 <=0 (/100 WBCs) Final Performing Location LABORATORY [facility] - [address] [facility] [address]
--- OUTSIDE RECORDS SUMMARY | 2024-11-18 02:25 | External Medical Summary ---
Author Name Unknown Address Unknown Organization : Laboratory Report Ordering Provider Test Date Status CHRISTIANO PEARL 06/08/2024 07:41:31 Final Observation Date Value Abnormality Reference (Units ) Status Glucose Point of Care 06/08/2024 07:41:31 120 70-120 (mg/dL) Final Performing Location
--- OUTSIDE RECORDS SUMMARY | 2024-11-18 02:25 | External Medical Summary ---
Author Name Unknown Address Unknown Organization : Laboratory Report Ordering Provider Test Date Status AZALIA MTZ 06/07/2024 11:42:57 Final Observation Date Value Abnormality Reference (Units ) Status Glucose Point of Care 06/07/2024 11:42:57 110 70-120 (mg/dL) Final Performing Location
--- OUTSIDE RECORDS SUMMARY | 2024-11-18 02:25 | External Medical Summary ---
Author Name Unknown Address Unknown Organization : Laboratory Report Ordering Provider Test Date Status CHRISTIANO PEARL 06/09/2024 16:48:50 Final Observation Date Value Abnormality Reference (Units ) Status Glucose Point of Care 06/09/2024 16:48:50 106 70-120 (mg/dL) Final Performing Location
--- OUTSIDE RECORDS SUMMARY | 2024-11-18 02:25 | External Medical Summary ---
Author Name Unknown Address Unknown Organization : Laboratory Report Ordering Provider Test Date Status AZALIA MTZ 06/07/2024 07:44:16 Final Observation Date Value Abnormality Reference (Units ) Status Glucose Point of Care 06/07/2024 07:44:16 113 70-120 (mg/dL) Final Performing Location
--- OUTSIDE RECORDS SUMMARY | 2024-11-18 02:25 | External Medical Summary ---
Author Name Unknown Address Unknown Organization K01:LABORATORY [facility] [place] - [facility] [address] [place] [address] Laboratory Report Ordering Provider Test Date Status CHRISTIANO PEARL 06/08/2024 09:15:00 Final Observation Date Value Abnormality Reference (Units ) Status BUN 06/08/2024 09:15:00 8 6-20 (mg/dL) Final Creatinine 06/08/2024 09:15:00 1.1 0.6-1.2 (mg/dL) Final Glomerular filtration rate/1.73 sq M.predicted [Volume Rate/Area] in Serum, Plasma or Blood by Creatinine-based formula (CKD-EPI) 06/08/2024 09:15:00 72 >=60 (mL/min) Final eGFR is calculated based on the CKD-EPI 2020 equation. Sodium 06/08/2024 09:15:00 134 Below low normal 135 -146 (mmol/L) Final Potassium 06/08/2024 09:15:00 3.8 3.5-5.1 (m mol/L) Final Cl 06/08/2024 09:15:00 96 Below low normal 98- 107 (mmol/L) Final CO2 06/08/2024 09:15:00 26 22-32 (mmo l/L) Final Anion gap 06/08/2024 09:15:00 12 7-15 (mmol /L) Final Glucose 06/08/2024 09:15:00 157 Above high normal 70 -120 (mg/dL) Final Calcium 06/08/2024 09:15:00 8.4 8.4-10.2 ( mg/dL) Final Performing Location LABORATORY [facility] [place] - [address] [place] [address]
--- OUTSIDE RECORDS SUMMARY | 2024-11-18 02:25 | External Medical Summary ---
Author Name Unknown Address Unknown Organization : Laboratory Report Ordering Provider Test Date Status CHRISTIANO PEARL 06/08/2024 11:27:00 Final Observation Date Value Abnormality Reference (Units ) Status Glucose Point of Care 06/08/2024 11:27:00 118 70-120 (mg/dL) Final Performing Location
--- OUTSIDE RECORDS SUMMARY | 2024-11-18 02:25 | External Medical Summary ---
Author Name Unknown Address Unknown Organization [id number]:[place] [place] [address] [facility] [address] Laboratory Report Ordering Provider Test Date Status AZALIA MTZ 06/09/2024 06:00:00 Final Observation Date Value Abnormality Reference (Units ) Status Vancomycin, level 06/09/2024 06:00:00 21.2 10 .0-40.0 (ug/mL) Final Performing Location LABORATORY [facility] - [address] [place] [address]
--- OUTSIDE RECORDS SUMMARY | 2024-11-18 02:25 | External Medical Summary ---
Author Name Unknown Address Unknown Organization : Laboratory Report Ordering Provider Test Date Status CHRISTIANO PEARL 06/10/2024 07:49:38 Final Observation Date Value Abnormality Reference (Units ) Status Glucose Point of Care 06/10/2024 07:49:38 120 70-120 (mg/dL) Final Performing Location
--- OUTSIDE RECORDS SUMMARY | 2024-11-18 02:25 | External Medical Summary ---
Author Name Unknown Address Unknown Organization : Laboratory Report Ordering Provider Test Date Status AZALIA MTZ 06/07/2024 16:16:42 Final Observation Date Value Abnormality Reference (Units ) Status Glucose Point of Care 06/07/2024 16:16:42 87 70-120 (mg/dL) Final Performing Location
--- OUTSIDE RECORDS SUMMARY | 2024-11-18 02:25 | External Medical Summary ---
Author Name Unknown Address Unknown Organization : Laboratory Report Ordering Provider Test Date Status CHRISTIANO PEARL 06/09/2024 11:35:57 Final Observation Date Value Abnormality Reference (Units ) Status Glucose Point of Care 06/09/2024 11:35:57 111 70-120 (mg/dL) Final Performing Location
--- OUTSIDE RECORDS SUMMARY | 2024-11-18 02:25 | External Medical Summary ---
Author Name Unknown Address Unknown Organization : Laboratory Report Ordering Provider Test Date Status CHRISTIANO PEARL 06/09/2024 20:29:59 Final Observation Date Value Abnormality Reference (Units ) Status Glucose Point of Care 06/09/2024 20:29:59 128 Above high normal 70-120 (mg/dL) Final Performing Location
--- OUTSIDE RECORDS SUMMARY | 2024-11-18 02:25 | External Medical Summary ---
Author Name Unknown Address Unknown Organization : Laboratory Report Ordering Provider Test Date Status CHRISTIANO PEARL 06/08/2024 16:37:49 Final Observation Date Value Abnormality Reference (Units ) Status Glucose Point of Care 06/08/2024 16:37:49 111 70-120 (mg/dL) Final Performing Location
--- OUTSIDE RECORDS SUMMARY | 2024-11-18 02:26 | External Medical Summary ---
Author Name Unknown Address Unknown Organization : Laboratory Report Ordering Provider Test Date Status AZALIA MTZ 06/06/2024 16:55:24 Final Observation Date Value Abnormality Reference (Units ) Status Glucose Point of Care 06/06/2024 16:55:24 97 70-120 (mg/dL) Final Performing Location
--- OUTSIDE RECORDS SUMMARY | 2024-11-18 02:26 | External Medical Summary ---
Author Name Unknown Address Unknown Organization K01:LABORATORY [facility] [place] - [address] [place] [address] [place] [address] Laboratory Report Ordering Provider Test Date Status YOBANI DYER 06/06/2024 15:11:19 Final No aerobic growth. Observation Date Value Abnormality Reference (Units ) Status Bacteria identified in Specimen by Culture 06/06/2024 15:11:19 [id number]^PARVI MONAS MICRA Abnormal Final Moderate Parvimonas micra Bacteria identified in Specimen by Culture 06/06/2024 15:11:19 [id number]^ANAEROBIC GRAM POSITIVE BACILLI Abnormal Final Moderate Anaerobic Gram Posi tive Bacilli
Most closely resembling - Slackia exigua Gram Stain 06/06/2024 15:11:19 Moderate Polymorphonuclear le ukocytes Abnormal Final Gram Stain 06/06/2024 15:11:19 No squamous epithelial cells seen Abnormal Final Gram Stain 06/06/2024 15:11:19 No organisms seen Abnormal Final Test: Culture, Wound, Deep, Aerobic and Anaerobic
Specimen Source: Pelvis
Specimen Type: Deep Wound
Specimen Date: 06/06/2024 1511
Result Date: 06/13/2024 1455
Result Status: Final result
Abnormal: Yes
Resulting Lab: LABORATORY [facility]
[address]
[place] [address]

CULTURE

Moderate Parvimonas micra (Abnormal)

Moderate Anaerobic Gram Positive Bacilli (Abnormal)

Most closely resembling - Slackia exigua

No aerobic growth.

STAIN

Moderate Polymorphonuclear leukocytes

No squamous epithelial cells seen

No organisms seen

null Performing Location LABORATORY [facility] [place] - [address] [facility] [address]
--- OUTSIDE RECORDS SUMMARY | 2024-11-18 02:26 | External Medical Summary ---
Author Name Unknown Address Unknown Organization K01:[place] [facility] [place] [address] [place] [address] Laboratory Report Ordering Provider Test Date Status AZALIA MTZ 06/06/2024 06:22:00 Final Observation Date Value Abnormality Reference (Units ) Status BUN 06/06/2024 06:22:00 10 6-20 (mg/dL) Final Creatinine 06/06/2024 06:22:00 1.0 0.6-1.2 (mg/dL) Final Glomerular filtration rate/1.73 sq M.predicted [Volume Rate/Area] in Serum, Plasma or Blood by Creatinine-based formula (CKD-EPI) 06/06/2024 06:22:00 75 >=60 (mL/min) Final eGFR is calculated based on the CKD-EPI 2020 equation. Sodium 06/06/2024 06:22:00 133 Below low normal 135 -146 (mmol/L) Final Potassium 06/06/2024 06:22:00 3.9 3.5-5.1 (m mol/L) Final Cl 06/06/2024 06:22:00 97 Below low normal 98- 107 (mmol/L) Final CO2 06/06/2024 06:22:00 26 22-32 (mmo l/L) Final Anion gap 06/06/2024 06:22:00 10 7-15 (mmol /L) Final Glucose 06/06/2024 06:22:00 117 70-120 (mg /dL) Final Calcium 06/06/2024 06:22:00 8.3 Below low normal 8.4 -10.2 (mg/dL) Final Performing Location [facility] [place] [address] [place] [address]
--- OUTSIDE RECORDS SUMMARY | 2024-11-18 02:26 | External Medical Summary ---
Author Name Unknown Address Unknown Organization K01:LABORATORY [facility] - [address] [place] [id number] Laboratory Report Ordering Provider Test Date Status AZALIA MTZ 06/06/2024 06:22:00 Final Observation Date Value Abnormality Reference (Units ) Status Phosphate 06/06/2024 06:22:00 2.8 2.5-4.8 (m g/dL) Final Performing Location LABORATORY [facility] - [address] [place] [id number]
--- OUTSIDE RECORDS SUMMARY | 2024-11-18 02:26 | External Medical Summary ---
Author Name Unknown Address Unknown Organization K01[facility] [address] [facility] [address] Laboratory Report Ordering Provider Test Date Status ANGELICA CRAMER 06/05/2024 07:32:00 Final Observation Date Value Abnormality Reference (Units ) Status WBC, Total 06/05/2024 07:32:00 6.83 4.00-10.80 (K/uL) Final RBC 06/05/2024 07:32:00 3.35 4.50-5.25 (M/uL) Final Hemoglobin 06/05/2024 07:32:00 8.9 Below low normal 14.0-16.8 (g/dL) Final HCT 06/05/2024 07:32:00 29.7 Below low normal 40.0-48.4 (%) Final MCV 06/05/2024 07:32:00 88.7 82.0-99.5 (fL) Final MCH 06/05/2024 07:32:00 26.6 27.0-34.0 (pg) Final MCHC 06/05/2024 07:32:00 30.0 32.0-36.0 (g/dL) Final RDW 06/05/2024 07:32:00 17.2 11.5-15.5 (%) Final Platelets 06/05/2024 07:32:00 350 140-400 (K/uL) Final MPV 06/05/2024 07:32:00 8.6 6.6-11.1 (fL) Final Nucleated erythrocytes/100 leukocytes [Ratio] in Blood by Automated count 06/05/2024 07:32:00 0 <=0 (/100 WBCs) Final Performing Location LAB[facility]ORY [facility] [place] [address] [facility] [address]
--- OUTSIDE RECORDS SUMMARY | 2024-11-18 02:26 | External Medical Summary ---
Author Name Unknown Address Unknown Organization K01:LABORATORY [facility] - [address] [place] [address] Laboratory Report Ordering Provider Test Date Status LISSETTE MCHUGH 06/06/2024 06:22:00 Final Observation Date Value Abnormality Reference (Units ) Status Vancomycin, level 06/06/2024 06:22:00 22.8 10 .0-40.0 (ug/mL) Final Performing Location LABORATORY [facility] - [address] [place] [address]
--- OUTSIDE RECORDS SUMMARY | 2024-11-18 02:26 | External Medical Summary ---
Author Name Unknown Address Unknown Organization K01:[place] [facility] [place] [facility] [place] [address] [address] Laboratory Report Ordering Provider Test Date Status YOBANI DYER 06/05/2024 07:32:00 Final Observation Date Value Abnormality Reference (Units ) Status BUN 06/05/2024 07:32:00 13 6-20 (mg/dL) Final Creatinine 06/05/2024 07:32:00 1.0 0.6-1.2 (mg/dL) Final Glomerular filtration rate/1.73 sq M.predicted [Volume Rate/Area] in Serum, Plasma or Blood by Creatinine-based formula (CKD-EPI) 06/05/2024 07:32:00 73 >=60 (mL/min) Final eGFR is calculated based on the CKD-EPI 2020 equation. Sodium 06/05/2024 07:32:00 133 Below low normal 135 -146 (mmol/L) Final Potassium 06/05/2024 07:32:00 4.1 3.5-5.1 (m mol/L) Final Cl 06/05/2024 07:32:00 99 98-107 (mm ol/L) Final CO2 06/05/2024 07:32:00 24 22-32 (mmo l/L) Final Anion gap 06/05/2024 07:32:00 10 7-15 (mmol /L) Final Glucose 06/05/2024 07:32:00 118 70-120 (mg /dL) Final Calcium 06/05/2024 07:32:00 8.3 Below low normal 8.4 -10.2 (mg/dL) Final Performing Location [place] [facility] [place] [address] [place] [address]
--- OUTSIDE RECORDS SUMMARY | 2024-11-18 02:26 | External Medical Summary ---
Author Name Unknown Address Unknown Organization K01:LABORATORY [facility] [address] [place] [address] Laboratory Report Ordering Provider Test Date Status YOBANI DYER 06/05/2024 07:32:00 Final Observation Date Value Abnormality Reference (Units ) Status Calcium.ionized [Moles/volume] in Serum or Plasma by Ion-selective membrane electrode (ISE) 06/05/2024 07:32:00 1.18 1.13-1.32 (mmol/L) Final This test was developed and its performance characteristics dtermined by [employer]. It has not been cleared or approved by the [place] Food and Drug Administration Performing Location LABORATORY [place] [address] [place] [address]
--- OUTSIDE RECORDS SUMMARY | 2024-11-18 02:26 | External Medical Summary ---
Author Name Unknown Address Unknown Organization : Laboratory Report Ordering Provider Test Date Status CHRISTIANO PEARL 06/05/2024 16:51:34 Final Observation Date Value Abnormality Reference (Units ) Status Glucose Point of Care 06/05/2024 16:51:34 121 Above high normal 70-120 (mg/dL) Final Performing Location
--- OUTSIDE RECORDS SUMMARY | 2024-11-18 02:26 | External Medical Summary ---
Author Name Unknown Address Unknown Organization : Laboratory Report Ordering Provider Test Date Status CHRISTIANO PEARL 06/05/2024 07:50:29 Final Observation Date Value Abnormality Reference (Units ) Status Glucose Point of Care 06/05/2024 07:50:29 127 Above high normal 70-120 (mg/dL) Final Performing Location
--- OUTSIDE RECORDS SUMMARY | 2024-11-18 02:26 | External Medical Summary ---
Author Name Unknown Address Unknown Organization K01:LABORATORY [facility] - [address] [place] [address] Laboratory Report Ordering Provider Test Date Status AZALIA MTZ 06/06/2024 06:22:00 Final Observation Date Value Abnormality Reference (Units ) Status Magnesium 06/06/2024 06:22:00 2.1 1.5-2.6 (m g/dL) Final Performing Location LABORATORY [facility] - [address] [place] [address]
--- OUTSIDE RECORDS SUMMARY | 2024-11-18 02:26 | External Medical Summary ---
Author Name Unknown Address Unknown Organization K01:LABORATORY [address] [address] Laboratory Report Ordering Provider Test Date Status AZALIA MTZ 06/06/2024 06:22:00 Final Observation Date Value Abnormality Reference (Units ) Status WBC, Total 06/06/2024 06:22:00 7.42 4.00-10.80 (K/uL) Final RBC 06/06/2024 06:22:00 3.42 4.50-5.25 (M/uL) Final Hemoglobin 06/06/2024 06:22:00 8.6 Below low normal 14.0-16.8 (g/dL) Final HCT 06/06/2024 06:22:00 30.6 Below low normal 40.0-48.4 (%) Final MCV 06/06/2024 06:22:00 89.5 82.0-99.5 (fL) Final MCH 06/06/2024 06:22:00 25.1 27.0-34.0 (pg) Final MCHC 06/06/2024 06:22:00 28.1 32.0-36.0 (g/dL) Final RDW 06/06/2024 06:22:00 17.4 11.5-15.5 (%) Final Platelets 06/06/2024 06:22:00 347 140-400 (K/uL) Final MPV 06/06/2024 06:22:00 8.8 6.6-11.1 (fL) Final Nucleated erythrocytes/100 leukocytes [Ratio] in Blood by Automated count 06/06/2024 06:22:00 0 <=0 (/100 WBCs) Final Performing Location LABORATORY [facility] [place] - [address] [place], [place] [address]all[address] [facility] [address]
--- OUTSIDE RECORDS SUMMARY | 2024-11-18 02:26 | External Medical Summary ---
Author Name Unknown Address Unknown Organization : Laboratory Report Ordering Provider Test Date Status AZALIA MTZ 06/06/2024 11:38:09 Final Observation Date Value Abnormality Reference (Units ) Status Glucose Point of Care 06/06/2024 11:38:09 90 70-120 (mg/dL) Final Performing Location
--- OUTSIDE RECORDS SUMMARY | 2024-11-18 02:26 | External Medical Summary ---
Author Name Unknown Address Unknown Organization : Laboratory Report Ordering Provider Test Date Status CHRISTIANO PEARL 06/05/2024 21:11:34 Final Observation Date Value Abnormality Reference (Units ) Status Glucose Point of Care 06/05/2024 21:11:34 139 Above high normal 70-120 (mg/dL) Final Performing Location
--- OUTSIDE RECORDS SUMMARY | 2024-11-18 02:26 | External Medical Summary ---
Author Name Unknown Address Unknown Organization K01:LABORATORY [facility] - [address] [place] [address] Laboratory Report Ordering Provider Test Date Status YOBANI DYER 06/05/2024 07:32:00 Final Observation Date Value Abnormality Reference (Units ) Status Phosphate 06/05/2024 07:32:00 2.6 2.5-4.8 (m g/dL) Final Performing Location LABORATORY [facility] - [address] [place] [address]
--- OUTSIDE RECORDS SUMMARY | 2024-11-18 02:26 | External Medical Summary ---
Author Name Unknown Address Unknown Organization : Laboratory Report Ordering Provider Test Date Status CHRISTIANO PEARL 06/05/2024 11:56:35 Final Observation Date Value Abnormality Reference (Units ) Status Glucose Point of Care 06/05/2024 11:56:35 114 70-120 (mg/dL) Final Performing Location
--- OUTSIDE RECORDS SUMMARY | 2024-11-18 02:26 | External Medical Summary ---
Author Name Unknown Address Unknown Organization : Laboratory Report Ordering Provider Test Date Status AZALIA MTZ 06/06/2024 07:42:33 Final Observation Date Value Abnormality Reference (Units ) Status Glucose Point of Care 06/06/2024 07:42:33 152 Above high normal 70-120 (mg/dL) Final Performing Location
--- OUTSIDE RECORDS SUMMARY | 2024-11-18 02:27 | External Medical Summary ---
Author Name Unknown Address Unknown Organization K01:LABORATORY [facility] [place] [facility] - [address] [address] Laboratory Report Ordering Provider Test Date Status ANGELICA CRAMER 06/04/2024 06:15:20 Final Observation Date Value Abnormality Reference (Units ) Status ABO 06/04/2024 06:15:20 AB Final RH 06/04/2024 06:15:20 Positive Final Performing Location LABORATORY [facility] [place] [facility] [place] [address] [place] [address]
--- OUTSIDE RECORDS SUMMARY | 2024-11-18 02:27 | External Medical Summary ---
Author Name Unknown Address Unknown Organization K01:[facility] [place] [address] [place] [address] Laboratory Report Ordering Provider Test Date Status YOBANI DYER 06/04/2024 05:37:24 Final Observation Date Value Abnormality Reference (Units ) Status Phosphate 06/04/2024 05:37:24 2.4 Below low normal 2.5 -4.8 (mg/dL) Final Performing Location LABORATORY [facility] - [address] [place] [address]
--- OUTSIDE RECORDS SUMMARY | 2024-11-18 02:27 | External Medical Summary ---
Author Name Unknown Address Unknown Organization K01:LAB[facility]ATORY [facility] [place] [address] [place] [address] Laboratory Report Ordering Provider Test Date Status YOBANI DYER 06/03/2024 05:30:57 Final Observation Date Value Abnormality Reference (Units ) Status Calcium.ionized [Moles/volume] in Serum or Plasma by Ion-selective membrane electrode (ISE) 06/03/2024 05:30:57 1.15 1.13-1.32 (mmol/L) Final This test was developed and its performance characteristics dtermined by [employer]. It has not been cleared or approved by the [place] Food and Drug Administration Performing Location LABORATORY [place] [address] [place] [address]
--- OUTSIDE RECORDS SUMMARY | 2024-11-18 02:27 | External Medical Summary ---
Author Name Unknown Address Unknown Organization K01:LABORATORY [facility] - [address] [place] [address] Laboratory Report Ordering Provider Test Date Status YOBANI DYER 06/05/2024 07:32:00 Final Observation Date Value Abnormality Reference (Units ) Status Magnesium 06/05/2024 07:32:00 2.3 1.5-2.6 (m g/dL) Final Performing Location LABORATORY [facility] - [address] [place] [address]
--- OUTSIDE RECORDS SUMMARY | 2024-11-18 02:27 | External Medical Summary ---
Author Name Unknown Address Unknown Organization : Laboratory Report Ordering Provider Test Date Status LISSETTE MCHUGH 06/04/2024 11:49:42 Final Observation Date Value Abnormality Reference (Units ) Status Glucose Point of Care 06/04/2024 11:49:42 124 Above high normal 70-120 (mg/dL) Final Performing Location
--- OUTSIDE RECORDS SUMMARY | 2024-11-18 02:27 | External Medical Summary ---
Author Name Unknown Address Unknown Organization K01[facility] [address] [facility] [address] Laboratory Report Ordering Provider Test Date Status ANGELICA CRAMER 06/04/2024 05:37:24 Final Observation Date Value Abnormality Reference (Units ) Status WBC, Total 06/04/2024 05:37:24 7.71 4.00-10.80 (K/uL) Final RBC 06/04/2024 05:37:24 2.64 4.50-5.25 (M/uL) Final Hemoglobin 06/04/2024 05:37:24 6.8 Below low normal 14.0-16.8 (g/dL) Final HCT 06/04/2024 05:37:24 23.0 Below low normal 40.0-48.4 (%) Final MCV 06/04/2024 05:37:24 87.1 82.0-99.5 (fL) Final MCH 06/04/2024 05:37:24 25.8 27.0-34.0 (pg) Final MCHC 06/04/2024 05:37:24 29.6 32.0-36.0 (g/dL) Final RDW 06/04/2024 05:37:24 17.4 11.5-15.5 (%) Final Platelets 06/04/2024 05:37:24 317 140-400 (K/uL) Final MPV 06/04/2024 05:37:24 8.9 6.6-11.1 (fL) Final Nucleated erythrocytes/100 leukocytes [Ratio] in Blood by Automated count 06/04/2024 05:37:24 0 <=0 (/100 WBCs) Final Performing Location LABORATORY [facility] [place] - [address] [facility] [address]
--- OUTSIDE RECORDS SUMMARY | 2024-11-18 02:27 | External Medical Summary | Summary of Care ---
Author Name Unknown Organization [facility] Address [address] [place] [address] Phone [phone] Care Team Providers Care Vtc Technician Name Role Phone Rhianna Huitron DO Primary Care Provider Reason for Visit * Auth/Cert Specialty Diagnoses / Procedures Referred By Clarke gore Referred To Contact Diagnoses Osteomyelitis (HCC) osteomyolitis Mendel Kidd, DO [address] [place] [address] Admissions [facility] [place] [address] [place] [address] Referral ID Status Reason Start Date Expiration Date Visits Re quested Visits Authorized [id number] Encounter Details Date Type Department Care Team (Latest Contact Info) Description 06/03/2024 8:20 AM EDT - 06/03/2024 11:59 PM EDT Hospital Encounter Cardiac Studies [facility] [address] [place], [place] [id number] Discharge Disposition: Home - Self Care Allergies Active Allergy Reactions Criticality Noted Date Comments Brent Inhibitors Cough Low 11/26/2017 Alendronate Sodium Muscle pain 04/11/2019 Heartburn, constipation, joint pain Misoprostol Diarrhea 08/08/2003 Niacin Er (Antihyperlipidemic) 11/26/2010 Gas, hot flashes Pollen 01/01/2018 Watery eyes, sneezing Pravastatin 02/26/2007 Upset stomach, all .Statins Simvastatin 02/26/2007 Upset stomach documented as of this encounter (statuses as of 06/04/2024) Medications Medication Sig Dispensed Refills Start Date [...] as of this encounter (statuses as of 06/04/2024) Active Problems Problem Noted Date Diagnosed Date [...] glucose 12/16/2005 Macular degeneration 12/02/1999 DISC DIS [id number] documented as of this encounter (statuses as of 06/04/2024) Resolved Problems Problem Noted Date Diagnosed Date [...] colonoscopy in 5 years ARTHRITIS,RHEUMATOID 07/07/2006 016 [id number] 07/07/200611/01 Overview: Renamed Per Clinical Trials Billing Project. Pt is a participant in the [employer] ([employer]ortium of [employer] [place]) national data collection study. For further information please call Dr Hari Clark or Julia White, RN, CCRC at [phone] [facility] RESEARCH OTHER*[id number] 07/07/2006 01/28/2010 Overview: Renamed Per Clinical Trials Billing Project. Pt is a participant in the [employer] ([employer]ortium of [employer] [place]) national data collection study. For further information please call Dr Hari Clark or Julia White, RN, CCRC at [phone] Hearing loss 12/02/1999 03/29/2013 documented as of this encounter (statuses as of 06/04/2024) Immunizations Name Administration Dates Next Due COVID-19 mRNA, LNP-s, No Pre serve, 2-Dose Series (Solar Flow-Through) 06/14/2021,10/10/2020,09/12/2020 COVID-19, LNP-s, No Preserve , Yousuf-sucrose, Ages 12+ (Solar Flow-Through) 12/25/2021 Covid-19, Mrna, Lnp-s, Pf, B ivalent, [...] No 06/01/2024 documented as of this encounter Plan of Treatment Upcoming Encounters Date Type Department Care Team (Late st Contact Info) Description 06/20/2024 10:00 AM EST Laboratory Laboratory, [place] [address] [place] [id number] [place] [address] [place] [address] 06/27/2024 2:30 PM EST Office Visit Hematology/Oncology Jayashree Hobbs [place] [address] [facility] [place] [address] Korin Fisher CRNP [address] [place] [address] 06/28/2024 2:15 PM EST Procedure Only Urology, [facility] [address] [facility] [place] [address] Vinay Sexton MD [address] [place] [address] 09/08/2024 3:40 PM EST Office Visit Nephrology, [address] [place] [address] Bryson Ellis MD [address] [facility] [place] [address] 10/17/2024 10:30 AM EDT Office Visit Cardiology, [facility] [address] [facility] [place] [address] Dmitri Greenfield DO [address] [facility] [place] [address] 03/21/2025 11:45 AM EDT Telemedicine Urology, [facility] [address] [facility] [place] [address] Vinay Sexton MD [address] [place] [address] Scheduled Procedures Name Priority Associated Diagnoses Date/Ti [...] 05/08/2022, 05/07/2021, 04/17/2020, Additional history exists GFR 12/02/2024 06/04/2024, 08/2023, 06/03/2024, Additional history exists HbA1c 06/02/2025 06/02/2024, 0 12/2023, 06/22/2023, Additional history exists CKD HGB USE SMARTSET 14989 06/04/202506/04, 06/03/2024, 06/02/2024, Additional history exists CKD PHOS USE SMARTSET 35774 06/04/202509/2023, 06/03/2024, 06/02/2024, Additional history exists DTap/Tdap Vaccines (3 - [...] D LEVEL ONCE IN A LIFETIME-USE SMARTSET# [id number] Completed 03/21/2024, 12/25/2023, 05/27/2021, Additional history exists [...] Procedure Name Priority Date/Time Associated Diagnosis Comments ECHO, COMPLETE (2D), TRANS-THORACIC STAT 06/03/2024 8:59 AM EDT Heart failure (HCC) documented in this encounter Visit Diagnoses Diagnosis Heart failure, unspecified HF chronicity, unspecified heart failure type (HCC)- Primary documented in this encounter Administered Medications Inactive Administered Medications - up to 3 most recent administrations Medication Order MAR Action Action Date Dose Rate Site perflutren lipid microsphere inj SUSP 1.956 mg 1.956 mg, Intravenous, ONCE PRN Other, For Echo Only - Suboptimal Echo Images, Starting on Thu06/03/24 at 0857, Until Thu06/03/24 at 1056, For 2 hours, Administer IVP over 45 seconds, Cardiac Studies_HODHOV Given 06/03/2024 8:58 AM EDT 1.956 mg documented in this encounter Advance Directives * Full Code (Latest Code Status on File) Date Activated Date Inactivated Comments 06/01/2024 11:10 PM This order r eflects the patients wishes and were consensually agreed upon. Question Answer Comments Discussion of Advance Direct teo occurred with: Not Discussed due to patient's condition Care Teams Vtc Technician Relationship Specialty Start Date End Date Rhianna Huitron DO [address] [facility] [place] [address] PCP - General Family Medicine 07/11/19 documented as of this encounter
--- OUTSIDE RECORDS SUMMARY | 2024-11-18 02:27 | External Medical Summary ---
Author Name Unknown Address Unknown Organization : Laboratory Report Ordering Provider Test Date Status SRIDEVI IQBAL 06/04/2024 16:39:21 Final Observation Date Value Abnormality Reference (Units ) Status Glucose Point of Care 06/04/2024 16:39:21 132 Above high normal 70-120 (mg/dL) Final Performing Location
--- OUTSIDE RECORDS SUMMARY | 2024-11-18 02:27 | External Medical Summary ---
Author Name Unknown Address Unknown Organization [id number]:[facility] [address] [place] [address] Laboratory Report Ordering Provider Test Date Status YOBANI DYER 06/03/2024 05:30:57 Final Observation Date Value Abnormality Reference (Units ) Status Magnesium 06/03/2024 05:30:57 2.4 1.5-2.6 (m g/dL) Final Performing Location [facility] - [address] [place] [address]
--- OUTSIDE RECORDS SUMMARY | 2024-11-18 02:27 | External Medical Summary ---
Author Name Unknown Address Unknown Organization K01:[facility] [place] [facility] [address] [facility] [address] [facility] [address] Laboratory Report Ordering Provider Test Date Status ANGELICA CRAMER 06/03/2024 05:30:57 Final Observation Date Value Abnormality Reference (Units ) Status WBC, Total 06/03/2024 05:30:57 16.23 Above high normal 4.00-10.80 (K/uL) Final RBC 06/03/2024 05:30:57 3.03 4.50-5.25 (M/uL) Final Hemoglobin 06/03/2024 05:30:57 7.8 Below low normal 14.0-16.8 (g/dL) Final HCT 06/03/2024 05:30:57 25.4 Below low normal 40.0-48.4 (%) Final MCV 06/03/2024 05:30:57 83.8 82.0-99.5 (fL) Final MCH 06/03/2024 05:30:57 25.7 27.0-34.0 (pg) Final MCHC 06/03/2024 05:30:57 30.7 32.0-36.0 (g/dL) Final RDW 06/03/2024 05:30:57 17.8 11.5-15.5 (%) Final Platelets 06/03/2024 05:30:57 482 Above high normal 140-400 (K/uL) Final MPV 06/03/2024 05:30:57 8.6 6.6-11.1 (fL) Final Nucleated erythrocytes/100 leukocytes [Ratio] in Blood by Automated count 06/03/2024 05:30:57 0 <=0 (/100 WBCs) Final Performing Location [facility] [place] [address] [place] [address]
--- OUTSIDE RECORDS SUMMARY | 2024-11-18 02:27 | External Medical Summary ---
Author Name Unknown Address Unknown Organization : Laboratory Report Ordering Provider Test Date Status AZALIA MTZ 06/04/2024 20:59:05 Final Observation Date Value Abnormality Reference (Units ) Status Glucose Point of Care 06/04/2024 20:59:05 120 70-120 (mg/dL) Final Performing Location
--- OUTSIDE RECORDS SUMMARY | 2024-11-18 02:27 | External Medical Summary ---
Author Name Unknown Address Unknown Organization [id number]:[facility] - [address] [place] [address] Laboratory Report Ordering Provider Test Date Status YOBANI DYER 06/04/2024 05:37:24 Final Observation Date Value Abnormality Reference (Units ) Status Magnesium 06/04/2024 05:37:24 2.3 1.5-2.6 (m g/dL) Final Performing Location [facility] - [address] [place] [address]
--- OUTSIDE RECORDS SUMMARY | 2024-11-18 02:27 | External Medical Summary ---
Author Name Unknown Address Unknown Organization K01:[facility] [place] - [facility] [address] [facility] [address] Laboratory Report Ordering Provider Test Date Status SHABNAM MOON 06/04/2024 13:10:01 Final Observation Date Value Abnormality Reference (Units ) Status WBC, Total 06/04/2024 13:10:01 8.58 4.00-10.80 (K/uL) Final RBC 06/04/2024 13:10:01 2.97 4.50-5.25 (M/uL) Final Hemoglobin 06/04/2024 13:10:01 7.9 Below low normal 14.0-16.8 (g/dL) Final HCT 06/04/2024 13:10:01 26.1 Below low normal 40.0-48.4 (%) Final MCV 06/04/2024 13:10:01 87.9 82.0-99.5 (fL) Final MCH 06/04/2024 13:10:01 26.6 27.0-34.0 (pg) Final MCHC 06/04/2024 13:10:01 30.3 32.0-36.0 (g/dL) Final RDW 06/04/2024 13:10:01 17.2 11.5-15.5 (%) Final Platelets 06/04/2024 13:10:01 318 140-400 (K/uL) Final MPV 06/04/2024 13:10:01 8.6 6.6-11.1 (fL) Final Nucleated erythrocytes/100 leukocytes [Ratio] in Blood by Automated count 06/04/2024 13:10:01 0 <=0 (/100 WBCs) Final Performing Location LAB[facility]ORY [facility] - [address] [facility] [address]
--- OUTSIDE RECORDS SUMMARY | 2024-11-18 02:27 | External Medical Summary ---
Author Name Unknown Address Unknown Organization K01:[facility] [place] [address] [facility] [place] [address] Laboratory Report Ordering Provider Test Date Status YOBANI DYER 06/04/2024 05:37:24 Final Observation Date Value Abnormality Reference (Units ) Status Calcium.ionized [Moles/volume] in Serum or Plasma by Ion-selective membrane electrode (ISE) 06/04/2024 05:37:24 1.16 1.13-1.32 (mmol/L) Final This test was developed and its performance characteristics dtermined by [employer]. It has not been cleared or approved by the [place] Food and Drug Administration Performing Location LAB[facility]ATORY [place] [address] [place] [address]
--- OUTSIDE RECORDS SUMMARY | 2024-11-18 02:27 | External Medical Summary ---
Author Name Unknown Address Unknown Organization K01:LABORATORY [facility] [place] - [address] [facility] [facility] [address] Laboratory Report Ordering Provider Test Date Status YOBANI DYER 06/04/2024 05:37:24 Final Observation Date Value Abnormality Reference (Units ) Status BUN 06/04/2024 05:37:24 17 6-20 (mg/dL) Final Creatinine 06/04/2024 05:37:24 1.1 0.6-1.2 (mg/dL) Final Glomerular filtration rate/1.73 sq M.predicted [Volume Rate/Area] in Serum, Plasma or Blood by Creatinine-based formula (CKD-EPI) 06/04/2024 05:37:24 73 >=60 (mL/min) Final eGFR is calculated based on the CKD-EPI 2020 equation. Sodium 06/04/2024 05:37:24 130 Below low normal 135 -146 (mmol/L) Final Potassium 06/04/2024 05:37:24 3.8 3.5-5.1 (m mol/L) Final Cl 06/04/2024 05:37:24 97 Below low normal 98- 107 (mmol/L) Final CO2 06/04/2024 05:37:24 25 22-32 (mmo l/L) Final Anion gap 06/04/2024 05:37:24 8 7-15 (mmol /L) Final Glucose 06/04/2024 05:37:24 109 70-120 (mg /dL) Final Calcium 06/04/2024 05:37:24 7.9 Below low normal 8.4 -10.2 (mg/dL) Final Performing Location [facility]ATORY [facility] - [address] [place] [address]
--- OUTSIDE RECORDS SUMMARY | 2024-11-18 02:27 | External Medical Summary ---
Author Name Unknown Address Unknown Organization K01:[facility] [address] [place] [address] Laboratory Report Ordering Provider Test Date Status YOBANI DYER 06/03/2024 05:30:57 Final Observation Date Value Abnormality Reference (Units ) Status Phosphate 06/03/2024 05:30:57 3.0 2.5-4.8 (m g/dL) Final Performing Location [facility] - [address] [place] [address]
--- OUTSIDE RECORDS SUMMARY | 2024-11-18 02:27 | External Medical Summary ---
Author Name Unknown Address Unknown Organization K01:LABORATORY [facility] [place] - [facility] [address] [facility] [address] [facility] [address] Laboratory Report Ordering Provider Test Date Status YOBANI DYER 06/03/2024 05:30:57 Final Observation Date Value Abnormality Reference (Units ) Status BUN 06/03/2024 05:30:57 21 Above high normal 6-20 (mg/dL) Final Creatinine 06/03/2024 05:30:57 1.1 0.6-1.2 (mg/dL) Final Glomerular filtration rate/1.73 sq M.predicted [Volume Rate/Area] in Serum, Plasma or Blood by Creatinine-based formula (CKD-EPI) 06/03/2024 05:30:57 67 >=60 (mL/min) Final eGFR is calculated based on the CKD-EPI 2020 equation. Sodium 06/03/2024 05:30:57 129 Below low normal 135 -146 (mmol/L) Final Potassium 06/03/2024 05:30:57 3.9 3.5-5.1 (m mol/L) Final Cl 06/03/2024 05:30:57 95 Below low normal 98- 107 (mmol/L) Final CO2 06/03/2024 05:30:57 22 22-32 (mmo l/L) Final Anion gap 06/03/2024 05:30:57 12 7-15 (mmol /L) Final Glucose 06/03/2024 05:30:57 168 Above high normal 70 -120 (mg/dL) Final Calcium 06/03/2024 05:30:57 8.0 Below low normal 8.4 -10.2 (mg/dL) Final Performing Location [facility]ATORY [facility] [place] - [facility] [place] [address]
--- OUTSIDE RECORDS SUMMARY | 2024-11-18 02:27 | External Medical Summary ---
Author Name Unknown Address Unknown Organization : Laboratory Report Ordering Provider Test Date Status LISSETTE MCHUGH 06/03/2024 00:01:11 Final Observation Date Value Abnormality Reference (Units ) Status Glucose Point of Care 06/03/2024 00:01:11 166 Above high normal 70-120 (mg/dL) Final Performing Location
--- OUTSIDE RECORDS SUMMARY | 2024-11-18 02:27 | External Medical Summary ---
Author Name Unknown Address Unknown Organization : Laboratory Report Ordering Provider Test Date Status LISSETTE MCHUGH 06/03/2024 05:29:54 Final Observation Date Value Abnormality Reference (Units ) Status Glucose Point of Care 06/03/2024 05:29:54 153 Above high normal 70-120 (mg/dL) Final Performing Location
--- OUTSIDE RECORDS SUMMARY | 2024-11-18 02:27 | External Medical Summary ---
Author Name Unknown Address Unknown Organization : Laboratory Report Ordering Provider Test Date Status LISSETTE MCHUGH 06/03/2024 18:19:22 Final Observation Date Value Abnormality Reference (Units ) Status Glucose Point of Care 06/03/2024 18:19:22 102 70-120 (mg/dL) Final Performing Location
--- OUTSIDE RECORDS SUMMARY | 2024-11-18 02:27 | External Medical Summary ---
Author Name Unknown Address Unknown Organization : Laboratory Report Ordering Provider Test Date Status LISSETTE MCHUGH 06/03/2024 12:07:56 Final Observation Date Value Abnormality Reference (Units ) Status Glucose Point of Care 06/03/2024 12:07:56 134 Above high normal 70-120 (mg/dL) Final Performing Location
--- OUTSIDE RECORDS SUMMARY | 2024-11-18 02:27 | External Medical Summary ---
Author Name Unknown Address Unknown Organization : Laboratory Report Ordering Provider Test Date Status LISSETTE MCHUGH 06/04/2024 05:36:20 Final Observation Date Value Abnormality Reference (Units ) Status Glucose Point of Care 06/04/2024 05:36:20 93 70-120 (mg/dL) Final Performing Location
--- OUTSIDE RECORDS SUMMARY | 2024-11-18 02:27 | External Medical Summary ---
Author Name Unknown Address Unknown Organization K01:[facility] [place] [facility] [address] [facility] [address] [facility] [address] Laboratory Report Ordering Provider Test Date Status SHABNAM MOON 06/03/2024 14:02:00 Final Observation Date Value Abnormality Reference (Units ) Status BUN 06/03/2024 14:02:00 26 Above high normal 6-20 (mg/dL) Final Creatinine 06/03/2024 14:02:00 1.1 0.6-1.2 (mg/dL) Final Glomerular filtration rate/1.73 sq M.predicted [Volume Rate/Area] in Serum, Plasma or Blood by Creatinine-based formula (CKD-EPI) 06/03/2024 14:02:00 73 >=60 (mL/min) Final eGFR is calculated based on the CKD-EPI 2020 equation. Sodium 06/03/2024 14:02:00 130 Below low normal 135 -146 (mmol/L) Final Potassium 06/03/2024 14:02:00 3.8 3.5-5.1 (m mol/L) Final Cl 06/03/2024 14:02:00 96 Below low normal 98- 107 (mmol/L) Final CO2 06/03/2024 14:02:00 23 22-32 (mmo l/L) Final Anion gap 06/03/2024 14:02:00 11 7-15 (mmol /L) Final Glucose 06/03/2024 14:02:00 127 Above high normal 70 -120 (mg/dL) Final Calcium 06/03/2024 14:02:00 7.9 Below low normal 8.4 -10.2 (mg/dL) Final Performing Location [facility] [place] [address] [place] [address]
--- OUTSIDE RECORDS SUMMARY | 2024-11-18 02:27 | External Medical Summary ---
Author Name Unknown Address Unknown Organization K01:LABORATORY [facility] [place] [facility] - [address] [place] [address] Laboratory Report Ordering Provider Test Date Status ANGELICA CRAMER 06/04/2024 06:15:20 Final Observation Date Value Abnormality Reference (Units ) Status ABO 06/04/2024 06:15:20 AB Final RH 06/04/2024 06:15:20 Positive Final RED BLOOD CELL ANTIBODY SCREEN 06/04/2024 06:15:20 Negative Final SPECIMEN EXPIRATION DATE 06/04/2024 06:15:20 06/07/2024 23:59 Final Performing Location LABORATORY [facility] [place] [facility] - [address] [place] [address]
--- OUTSIDE RECORDS SUMMARY | 2024-11-18 02:27 | External Medical Summary | Summary of Care ---
Author Name Unknown Organization [facility] Address [address] [place] [address] Phone [phone] Care Team Providers Care Chief Information Security Officer Name Role Phone Rhianna Huitron DO Primary Care Provider [phone] Encounter Details Date Type Department Care Team (Late st Contact Info) Description 06/02/2024 CardioDiagnostic Study Unspecified Department Fatuma Altman DO [address] [place] [address] EKG Report Allergies Active Allergy Reactions Criticality Noted Date Comments Brent Inhibitors Cough Low 11/26/2017 Alendronate Sodium Muscle pain 04/11/2019 Heartburn, constipation, joint pain Misoprostol Diarrhea 08/08/2003 Niacin Er (Antihyperlipidemic) 11/26/2010 Gas, hot flashes Pollen 01/01/2018 Watery eyes, sneezing Pravastatin 02/26/2007 Upset stomach, all .Statins Simvastatin 02/26/2007 Upset stomach documented as of this encounter (statuses as of 06/03/2024) Medications Medication Sig Dispensed Refills Start Date [...] 24 Hour (toPROL XL)Indications:NSVT (nonsustained ventricular tachycardia) ([facility]),Non-ischemic cardiomyopathy (HCC),Chronic HFrEF (heart failure with reduced [...] Oral Packet (Ure-Na)Indications :FREDY (acute kidney injury) ([facility]),Hyponatremia Take 15 g by mouth in the morning and 15 g before bedtime. 60 Packet 5 05/31/2024 Suspended Additional Information documented as of this encounter (statuses as of 06/03/2024) Active Problems Problem Noted Date Diagnosed Date [...] glucose 12/16/2005 Macular degeneration 12/02/1999 DISC DIS [id number] documented as of this encounter (statuses as of 06/03/2024) Resolved Problems Problem Noted Date Diagnosed Date [...] colonoscopy in 5 years ARTHRITIS,RHEUMATOID 07/07/2006 016 [id number] 07/07/200611/01 Overview: Renamed Per Clinical Trials Billing Project. Pt is a participant in the [facility] (Consortium of Rheumatology Researchers of [place]) national data collection study. For further information please call Dr Hari Clark or Julia White, RN, CCRC at [phone] [facility] RESEARCH OTHER*[id number] 07/07/2006 01/28/2010 Overview: Renamed Per Clinical Trials Billing Project. Pt is a participant in the [facility] (Consortium of Rheumatology Researchers of [facility]) national data collection study. For further information please call Dr Hari Clark or Julia White, RN, CCRC at [phone] Hearing loss 12/02/1999 03/29/2013 documented as of this encounter (statuses as of 06/03/2024) Immunizations Name Administration Dates Next Due COVID-19 mRNA, LNP-s, No Pre serve, 2-Dose Series ([employer] 06/14/2021,10/10/2020,09/12/2020 COVID-19, LNP-s, No Preserve , [...] (15 years old or older) Yes 06/01/20 24 Cognitive Status Response Date of Assessm ent Because of a physical, menta l, or emotional condition, do you have serious difficulty concentrating, remembering, or making decisions? (5 years old or older) No 06/01/2024 documented as of this encounter Procedure Notes * Stanley Key MD - 06/02/2024 12:35 AM EDTAssociated Order(s): EKG REPORT REASON FOR STUDY: ADMIT CONCLUSIONS: Warning: interpretation of this ECG, although attempted, may be adversely affected by data quality Sinus rhythm with frequent Premature ventricular complexes and Premature atrial complexes Otherwise normal ECG When compared with ECG of 22-Jun-2023 11:58, Premature atrial complexes are now Present Ventricular Rate: 88 Atrial Rate: 88 OH Interval: 176 QRS Duration: 100 QT/QTc: 392/474 ms P-R-T [place]: 98 : 72 : 81 degrees documented in this encounter Plan of Treatment Upcoming Encounters Date Type Department Care Team (Late st Contact Info) Description 06/20/2024 10:00 AM EST Laboratory Laboratory, [place] [address] [place] [address] Sadie Salmon [address] [place] [address] 06/27/2024 2:30 PM EST Office Visit Hematology/Oncology [facility] [place] [address] [place] [address] Korin Fisher CRNP [address] [place] [address] 06/28/2024 2:15 PM EST Procedure Only Urology, [facility] [address] [place] [address] Vinay Sexton MD [address] [place] [address] 09/08/2024 3:40 PM EST Office Visit Nephrology, [facility] [address] [place] [address] Bryson Ellis MD [address] [place] [address] 10/17/2024 10:30 AM EDT Office Visit Cardiology, [facility] [address] [place] [address] Dmitri Greenfield, [address] [place] [address] 03/21/2025 11:45 AM EDT Telemedicine Urology, [facility] [address] [facility] [place] [address] Vinay Sexton MD [address] [place] [address] Scheduled Procedures Name Priority Associated Diagnoses Date/Ti me COLONOSCOPY FLEXIBLE PROXIMAL DIAGNOSTIC Recall Hx of colonic polyps Health Maintenance Due Date Last Done Comments Adult Wellness Visit 03/16/2020 03/16/2019 DXA Scan 01/10/2021 01/10/2019, 12/2005, 07/07/2006 Depression Screening 03/13/2021 03/13/2020 Albumin/Creatinine Ratio 04/10/2023 04/10/2022, 10/2006 *BISPHONATE OR OTHER ACCEPTABLE MEDICATION NEEDED FOR OSTEOPOROSIS (REFER TO SMARTSET #1146) 04/29/2023 Colonoscopy 01/22/2024 01/21/2019, /08/2018, 05/10/2013, Additional history exists COVID-19 Vaccine ( season) 2024 05/23/2022, 12/25/2021, 12/25/2021, Additional history exists Influenza Vaccine (FLU shot) (#1) 2024 05/08/2022, 05/07/2021, 04/17/2020, Additional history exists GFR 12/01/2024 06/03/2024, 1108/2023, 06/02/2024, Additional history exists HbA1c 06/02/2025 06/02/2024, 0 12/2023, 06/22/2023, Additional history exists CKD HGB USE SMARTSET 15351 06/03/202506/03, 06/02/2024, 06/01/2024, Additional history exists CKD PHOS USE SMARTSET 71530 06/03/202508/2023, 06/02/2024, 06/01/2024, Additional history exists DTap/Tdap Vaccines (3 - [...] D LEVEL ONCE IN A LIFETIME-USE SMARTSET# 63687 Completed 03/21/2024, 12/25/2023, 05/27/2021, Additional history exists [...] Procedure Name Priority Date/Time Associated Diagnosis Comments EKG REPORT 06/02/2024 12:35 AM EDT documented in this encounter Results * EKG REPORT (06/02/2024 12:35 AM EDT) 06/02/2024 12:3 5 AM EDT Narrative Procedure Note Stanley Key MD - 06/02/2024 12:35 AM EDT REASON FOR STUDY: ADMIT CONCLUSIONS: Warning: interpretation of this ECG, although attempted, may be adverselyaffected by data quality Sinus rhythm with frequent Premature ventricular complexes and Prematureatrial complexes Otherwise normal ECG When compared with ECG of 22-Jun-2023 11:58, Premature atrial complexes are now Present Ventricular Rate: 88 Atrial Rate: 88 OH Interval: 176 QRS Duration: 100 QT/QTc: 392/474 ms P-R-T [place]: 98 : 72 : 81 degrees Fatuma Altman DO EKG documented in this encounter Advance Directives * Full Code (Latest Code Status on File) Date Activated Date Inactivated Comments 06/01/2024 11:10 PM This order r eflects the patients wishes and were consensually agreed upon. Question Answer Comments Discussion of Advance Direct teo occurred with: Not Discussed due to patient's condition Care Teams Chief Information Security Officer Relationship Specialty Start Date End Date Rhianna Huitron DO [address] [place] [address] PCP - General Family Medicine 07/11/19 documented as of this encounter
--- OUTSIDE RECORDS SUMMARY | 2024-11-18 02:27 | External Medical Summary | Summary of Care ---
Author Name Unknown Organization [facility] Address [address] [place] [place] [address] Phone [phone] Care Team Providers Care Navy Senior Officer Name Role Phone Rhianna Huitron DO Primary Care Provider [phone] Encounter Details Date Type Department Care Team (Latest Contact Info) Description 06/01/2024 5:25 PM EDT - 06/01/2024 11:07 PM EDT Hospital Encounter Radiology Film File [address] [place] [address] Arrived Discharge Disposition: Home - Self Care Allergies [...] Tablet 3 09/18/2023 Suspended Additional Information Patient taking differently:400 mg OralQHS, [...] Hour (toPROL XL)Indications:NSVT (nonsustained ventricular tachycardia) ([facility]),Non-ischemic cardiomyopathy (HCC),Chronic HFrEF (heart failure with reduced ejection fraction) ([facility]) Take 1 Tablet by mouth in the morning and 1 Tablet before bedtime. 180 Tablet 1 05/31/2024 Suspended Additional Information Furosemide 20 MG Oral Tablet (Lasix)Indications: FREDY (acute kidney injury) ([facility]),Hyponatremia Take 1 Tablet by mouth in the morning and 1 Tablet before bedtime. 60 Tablet 5 05/31/2024 Suspended Additional Information Urea 15 GM Oral Packet (Ure-Na)Indications :FREDY (acute kidney injury) ([facility] [...] glucose 12/16/2005 Macular degeneration 12/02/1999 DISC DIS [id number] documented as of this encounter (statuses as [...] colonoscopy in 5 years ARTHRITIS,RHEUMATOID 07/07/2006 016 [id number] 07/07/200611/01 Overview: Renamed Per Clinical Trials Billing Project. Pt is a participant in the [facility] (Consortium of Rheumatology Researchers of [facility]) national data collection study. For further information please call Dr Hari Clark or Julia White, RN, CCRC at [phone] [facility] RESEARCH OTHER*[id number] 07/07/2006 01/28/2010 Overview: Renamed Per Clinical Trials Billing Project. Pt is a participant in the [facility] ([facility] of Rheumatology Researchers of [facility]) national data collection study. For further information please call Dr Hari Clark or Julia White, RN, CCRC at [phone] Hearing loss 12/02/1999 03/29/2013 documented as of this encounter (statuses as of 06/03/2024) Immunizations Name Administration Dates Next Due COVID-19 mRNA, LNP-s, No Pre serve, 2-Dose Series ([employer]) 06/14/2021,10/10/2020,09/12/2020 COVID-19, LNP-s, No Preserve , Yousuf-sucrose, [...] Upcoming Encounters Date Type Department Care Team ([facility] st Contact Info) Description 06/20/2024 10:00 AM EST Laboratory Laboratory, [place] [address] [place] [address] [place] [address] 06/27/2024 2:30 PM EST Office Visit Hematology/Oncology [facility] [place] [address] [facility] [phone] Korin Fisher CRNP [address] [facility] [address] 06/28/2024 2:15 PM EST Procedure Only Urology, [facility] [address] [facility] [place] [address] Vinay Sexton MD [address] [place] [address] 09/08/2024 3:40 PM EST Office Visit Nephrology, [facility] [address] [place] [address] Bryson Ellis MD [address] [place] [address] 10/17/2024 10:30 AM EDT Office Visit Cardiology, [facility] [address] [facility] [place] [address] Dmitri Greenfield, [address] [place] [address] 03/21/2025 11:45 AM EDT Telemedicine Urology, [facility] [address] [facility] [place] [address] Vinay Sexton MD [address] [place] [address] Scheduled Procedures Name Priority Associated Diagnoses Date/Ti [...] 04/17/2020, Additional history exists GFR 12/01/2024 06/03/2024, 05/05, 06/02/2024, Additional history exists HbA1c 06/02/2025 06/02/2024, 040 12/2023, 06/22/2023, Additional history exists CKD HGB USE SMARTSET 64478 06/03/202506/03, 06/02/2024, 06/01/2024, Additional history exists CKD PHOS USE SMARTSET 72518 06/03/202508/2023, 06/02/2024, 06/01/2024, Additional history exists DTap/Tdap [...] D LEVEL ONCE IN A LIFETIME-USE SMARTSET# [id number] Completed 03/21/2024, 12/25/2023, 05/27/2021, Additional history exists [...] Procedure Name Priority Date/Time Associated Diagnosis Comments RADIOLOGY EXAM - CT (IMAGES ONLY, NO REPORT) Routine 06/01/2024 5:25 PM EDT documented in this encounter Results * RADIOLOGY EXAM - CT (IMAGES ONLY, NO REPORT) (06/01/2024 5:25 PM EDT) 06/01/2024 5:22 PM EDT Narrative Scheduling, Silent - 06/02/2024 8:12 AM EDT This is an imaging study not interpreted or resulted by a [facility] or [employer] contracted radiologist. Nakul Smith MD RAD CT documented in this encounter Advance Directives * Full Code (Latest Code Status on File) Date Activated Date Inactivated Comments 06/01/2024 11:10 PM This order r eflects the patients wishes and were consensually agreed upon. Question Answer Comments Discussion of Advance Direct teo occurred with: Not Discussed due to patient's condition Care Teams Navy Senior Officer Relationship Specialty Start Date End Date Rhianna Huitron DO [address] [place] [address] PCP - General Family Medicine 07/11/19 documented as of this encounter
--- OUTSIDE RECORDS SUMMARY | 2024-11-18 02:27 | External Medical Summary ---
Author Name Unknown Address Unknown Organization : Laboratory Report Ordering Provider Test Date Status LISSETTE MCHUGH 06/03/2024 23:46:59 Final Observation Date Value Abnormality Reference (Units ) Status Glucose Point of Care 06/03/2024 23:46:59 113 70-120 (mg/dL) Final Performing Location
--- OUTSIDE RECORDS SUMMARY | 2024-11-18 02:28 | External Medical Summary ---
Author Name Unknown Address Unknown Organization : Laboratory Report Ordering Provider Test Date Status LISSETTE MCHUGH 06/02/2024 17:59:24 Final Observation Date Value Abnormality Reference (Units ) Status Glucose Point of Care 06/02/2024 17:59:24 153 Above high normal 70-120 (mg/dL) Final Performing Location
--- OUTSIDE RECORDS SUMMARY | 2024-11-18 02:28 | External Medical Summary | Summary of Care ---
Author Name Unknown Organization [facility] Address [address] [place] [address] Phone [phone] Care Team Providers Care Parachute Panel Joiner Name Role Phone Rhianna Huitron DO Primary Care Provider [phone] Encounter Details Date Type Department Care Team (Late st Contact Info) Description 06/01/2024 Orders Only Urology, [place] [address] [place] [address] Nakul Smith MD [address] [place] [address] Allergies Active Allergy Reactions Criticality Noted Date Comments Brent Inhibitors Cough Low 11/26/2017 Alendronate Sodium Muscle pain 04/11/2019 Heartburn, constipation, joint pain Misoprostol Diarrhea 08/08/2003 Niacin Er (Antihyperlipidemic) 11/26/2010 Gas, hot flashes Pollen 01/01/2018 Watery eyes, sneezing Pravastatin 02/26/2007 Upset stomach, all .Statins Simvastatin 02/26/2007 Upset stomach documented as of this encounter (statuses as of 06/02/2024) Medications Medication Sig Dispensed Refills Start Date [...] 90 Tablet 3 09/21/2023 Suspended Additional Information [employer] In Vitro Strip (Glucose Blood) Type 2 diabetes, check blood sugars 2 times a day, in am and pm. 100 Strip 1 11/06/2023 Suspended Additional Information Tamsulosin HCl 0.4 MG [...] Hour (toPROL XL)Indications:NSVT (nonsustained ventricular tachycardia) ([facility]),Non-ischemic cardiomyopathy (HCC),Chronic HFrEF (heart failure with reduced ejection fraction) ([facility]) Take 1 Tablet by mouth in the morning and 1 Tablet before bedtime. 180 Tablet 1 05/31/2024 Suspended Additional Information Furosemide 20 MG Oral Tablet (Lasix)Indications: FREDY (acute kidney injury) ([facility]),Hyponatremia Take 1 Tablet by mouth in the morning and 1 Tablet before bedtime. 60 Tablet 5 05/31/2024 Suspended Additional Information Urea 15 GM Oral Packet (Ure-Na)Indications :FREDY (acute kidney injury) (HCC),Hyponatremia Take 15 g by mouth in the morning and 15 g before bedtime. 60 Packet 5 05/31/2024 Suspended Additional Information documented as of this encounter (statuses as of 06/02/2024) Active Problems Problem Noted Date Diagnosed Date Hyponatremia 06/02/2024 Septic shock 06/02/2024 S/P angioplasty with stent 12/18/2023 Chronic [...] glucose 12/16/2005 Macular degeneration 12/02/1999 DISC DIS [id number] documented as of this encounter (statuses as of 06/02/2024) Resolved Problems Problem Noted Date Diagnosed Date [...] colonoscopy in 5 years ARTHRITIS,RHEUMATOID 07/07/2006 016 [id number] 07/07/200611/01 Overview: Renamed Per Clinical Trials Billing Project. Pt is a participant in the [facility] (Consortium of Rheumatology Researchers of [facility]) national data collection study. For further information please call Dr Hari Clark or Julia White, RN, CCRC at [phone] [facility] RESEARCH OTHER*[id number] 07/07/2006 01/28/2010 Overview: Renamed Per Clinical Trials Billing Project. Pt is a participant in the [employer] (Consortium of Rheumatology Researchers of [place]) national data collection study. For further information please call Dr Hari Clark or Julia White, RN, CCRC at [phone] Hearing loss 12/02/1999 03/29/2013 documented as of this encounter (statuses as of 06/02/2024) Immunizations Name Administration Dates Next Due COVID-19 mRNA, LNP-s, No Pre serve, 2-Dose Series ([employer]) 06/14/2021,10/10/2020,09/12/2020 COVID-19, LNP-s, No Preserve , Yousuf-sucrose, Ages 12+ (Pfizer) 12/25/2021 Covid-19, Mrna, Lnp-s, Pf, B ivalent, 30 Mcg, IM, 12 yrs and above ([employer]) 05/23/2022 Pneumococcal Conjugate Vacc, 13 Valent (Prevnar) [...] Description 06/20/2024 10:00 AM EST Laboratory Laboratory, [place] [address] [facility] [facility] [id number] [place], Laboratory [address] [place] [address] 06/27/2024 2:30 PM EST Office Visit Hematology/Oncology [facility] [place] [address] [facility] [place] [address] Korin Fisher CRNP [address] [place], [place] [phone] 06/28/2024 2:15 PM EST Procedure Only Urology, [facility] [address] [facility] [place] [address] Vinay Sexton MD [address] [place] [address] 09/08/2024 3:40 PM EST Office Visit Nephrology, [facility] [address] [place], [place] [phone] Brsyon Ellis MD [address] [place], [place] [address] 10/17/2024 10:30 AM EDT Office Visit Cardiology, [facility] [address] [facility] [place] [address] Dmitri Greenfield DO [address] [facility] [place] [address] 03/21/2025 11:45 AM EDT Telemedicine Urology, [facility] [address] [facility] [place] [address] Vinay Sexton MD [address] [place] [address] Scheduled Procedures Name Priority Associated Diagnoses Date/Ti me COLONOSCOPY FLEXIBLE PROXIMAL DIAGNOSTIC Recall Hx of colonic polyps Health Maintenance Due Date Last Done Comments Adult Wellness Visit 03/16/2020 03/16/2019 DXA Scan 01/10/2021 01/10/2019, 0 12/2005, 07/07/2006 Depression Screening 03/13/2021 03/13/2020 Albumin/Creatinine Ratio 04/10/2023 04/10/2022, 10/2006 *BISPHONATE OR OTHER ACCEPTABLE MEDICATION NEEDED FOR OSTEOPOROSIS (REFER TO SMARTSET #1146) 04/29/2023 Colonoscopy 01/22/2024 01/21/2019, 01/02, 05/10/2013, Additional history exists COVID-19 Vaccine ( season) 2024 05/23/2022, 12/25/2021, 12/25/2021, Additional history exists Influenza Vaccine (FLU shot) (#1) 2024 05/08/2022, 05/07/2021, 04/17/2020, Additional history exists GFR 11/30/2024 06/02/2024, 05/05, 06/01/2024, Additional history exists CKD PHOS USE SMARTSET 41599 06/01/202505/05, 05/31/2024, 05/18/2024 CKD HGB USE SMARTSET 14859 06/02/202506/02, 06/01/2024, 05/31/2024, Additional history exists HbA1c 06/02/2025 06/02/2024, 04/0 12/2023, 06/22/2023, Additional history exists DTap/Tdap Vaccines (3 - Td or Tdap) 12/04/2026 12/04/2016, 12/03/2006, 12/15/1996, Additional history exists Pneumococcal Vaccine: 65+ Years Completed 10/02/2014, 09/01/2011, 07/07/2006 RETIRED - COLONOSCOPY-EVERY 5 YRS AGES 18-100 Discontinued 01/21/2019, 01/21/2019, 05/10/2013, Additional history exists Zoster Vaccines Completed 09/03/2020, 06/11/2019, 09/02/2019, Additional history exists Diabetic Foot Exam Discontinued 12/18/2023, 12/24/2022 Diabetic Eye Exam Discontinued 02/01/2024, , 01/30/2022, Additional history exists VITAMIN D LEVEL ONCE IN A LIFETIME-USE SMARTSET# 51910 Completed 03/21/2024, 12/25/2023, 05/27/2021, Additional history exists [...] study not interpreted or resulted by a [facility] or [employer] [facility] [employer] [facility] contracted radiologist. Nakul Smith MD RAD CT documented in this encounter Advance Directives * Full Code (Latest Code Status on File) Date Activated Date Inactivated Comments 06/01/2024 11:10 PM This order r eflects the patients wishes and were consensually agreed upon. Question Answer Comments Discussion of Advance Direct teo occurred with: Not Discussed due to patient's condition Care Teams Parachute Panel Joiner Relationship Specialty Start Date End Date Rhianna Huitron DO [address] [place] [address] PCP - General Family Medicine 07/11/19 documented as of this encounter
--- OUTSIDE RECORDS SUMMARY | 2024-11-18 02:28 | External Medical Summary ---
Author Name Unknown Address Unknown Organization K01:[place] [facility] [place] [address] [facility] [address] Laboratory Report Ordering Provider Test Date Status YOBANI DYER 06/02/2024 05:42:00 Final Observation Date Value Abnormality Reference (Units ) Status Phosphate 06/02/2024 05:42:00 5.6 Above high normal 2. 5-4.8 (mg/dL) Final Performing Location LABORATORY [facility] - [address] [place] [address]
--- OUTSIDE RECORDS SUMMARY | 2024-11-18 02:28 | External Medical Summary ---
Author Name Unknown Address Unknown Organization K01:[facility] [place] [address] [place], [place] [address] [address] Laboratory Report Ordering Provider Test Date Status ANGELICA CRAMER 06/02/2024 05:42:00 Final Observation Date Value Abnormality Reference (Units ) Status WBC, Total 06/02/2024 05:42:00 32.30 Above high normal 4.00-10.80 (K/uL) Final RBC 06/02/2024 05:42:00 3.10 4.50-5.25 (M/uL) Final Hemoglobin 06/02/2024 05:42:00 8.2 Below low normal 14.0-16.8 (g/dL) Final HCT 06/02/2024 05:42:00 26.1 Below low normal 40.0-48.4 (%) Final MCV 06/02/2024 05:42:00 84.2 82.0-99.5 (fL) Final MCH 06/02/2024 05:42:00 26.5 27.0-34.0 (pg) Final MCHC 06/02/2024 05:42:00 31.4 32.0-36.0 (g/dL) Final RDW 06/02/2024 05:42:00 17.8 11.5-15.5 (%) Final Platelets 06/02/2024 05:42:00 454 Above high normal 140-400 (K/uL) Final MPV 06/02/2024 05:42:00 8.6 6.6-11.1 (fL) Final Nucleated erythrocytes/100 leukocytes [Ratio] in Blood by Automated count 06/02/2024 05:42:00 0 <=0 (/100 WBCs) Final Performing Location [facility] [place] [address] [place] [address]
--- OUTSIDE RECORDS SUMMARY | 2024-11-18 02:28 | External Medical Summary ---
Author Name Unknown Address Unknown Organization K01:[place] [facility] [place] [address] [place] [address] Laboratory Report Ordering Provider Test Date Status ANGELICA CRAMER 06/02/2024 05:42:00 Final Observation Date Value Abnormality Reference (Units ) Status Troponin T 06/02/2024 05:42:00 378 Above upper panic limits <=22 (ng/L) Final Performing Location [facility] [place] [address] [place] [address]
--- OUTSIDE RECORDS SUMMARY | 2024-11-18 02:28 | External Medical Summary ---
Author Name Unknown Address Unknown Organization : Laboratory Report Ordering Provider Test Date Status DERRICK JOHNSON 06/02/2024 11:25:02 Final Observation Date Value Abnormality Reference (Units ) Status Glucose Point of Care 06/02/2024 11:25:02 130 Above high normal 70-120 (mg/dL) Final Performing Location
--- OUTSIDE RECORDS SUMMARY | 2024-11-18 02:28 | External Medical Summary ---
Author Name Unknown Address Unknown Organization : Laboratory Report Ordering Provider Test Date Status DERRICK JOHNSON 06/02/2024 05:37:32 Final Observation Date Value Abnormality Reference (Units ) Status Glucose Point of Care 06/02/2024 05:37:32 166 Above high normal 70-120 (mg/dL) Final Performing Location
--- OUTSIDE RECORDS SUMMARY | 2024-11-18 02:28 | External Medical Summary ---
Author Name Unknown Address Unknown Organization K01:[facility] [address] [place] [address] Laboratory Report Ordering Provider Test Date Status YOBANI DYER 06/02/2024 05:42:00 Final Observation Date Value Abnormality Reference (Units ) Status Magnesium 06/02/2024 05:42:00 2.5 1.5-2.6 (m g/dL) Final Performing Location [facility] - [address] [place] [address]
--- OUTSIDE RECORDS SUMMARY | 2024-11-18 02:28 | External Medical Summary ---
Author Name Unknown Address Unknown Organization K01:[facility] [place] [address] [place] [address] Laboratory Report Ordering Provider Test Date Status YOBANI DYER 06/02/2024 05:42:00 Final Exclude Heart Failure: <300 pg/mL
Diagnose Heart Failure:
Age <50 yr: >450 pg/mL
50-75 yr: >900 pg/mL
>75 yr: >1800 pg/mL
GFR is 30-59 mL/min: >1200 pg/mL or Age- adjusted values
GFR <30 mL/min: do not use, not reliable

Prognostic threshold: 1000 pg/mL Observation Date Value Abnormality Reference (Units ) Status BNP, Pro-hormone 06/02/2024 05:42:00 7812 Above high no rmal <300 (pg/mL) Final Performing Location [facility] [place] [facility] [place] [address]
--- OUTSIDE RECORDS SUMMARY | 2024-11-18 02:28 | External Medical Summary ---
Author Name Unknown Address Unknown Organization K01:LABORATORY [place] [address] [facility] [address] Laboratory Report Ordering Provider Test Date Status ANGELICA CRAMER 06/02/2024 05:42:00 Final Observation Date Value Abnormality Reference (Units ) Status BUN 06/02/2024 05:42:00 15 6-20 (mg/dL) Final Creatinine 06/02/2024 05:42:00 1.4 Above high normal 0.6-1.2 (mg/dL) Final Glomerular filtration rate/1.73 sq M.predicted [Volume Rate/Area] in Serum, Plasma or Blood by Creatinine-based formula (CKD-EPI) 06/02/2024 05:42:00 52 Below low normal >=60 (mL/min) Final eGFR is calculated based on the CKD-EPI 2020 equation. Sodium 06/02/2024 05:42:00 127 Below low normal 135 -146 (mmol/L) Final Potassium 06/02/2024 05:42:00 3.7 3.5-5.1 (m mol/L) Final Cl 06/02/2024 05:42:00 93 Below low normal 98- 107 (mmol/L) Final CO2 06/02/2024 05:42:00 21 Below low normal 22- 32 (mmol/L) Final Anion gap 06/02/2024 05:42:00 13 7-15 (mmol /L) Final Glucose 06/02/2024 05:42:00 174 Above high normal 70 -120 (mg/dL) Final Calcium 06/02/2024 05:42:00 7.9 Below low normal 8.4 -10.2 (mg/dL) Final Performing Location [facility]ATORY [facility] - [facility] [address] [facility] [address]
--- OUTSIDE RECORDS SUMMARY | 2024-11-18 02:28 | External Medical Summary ---
Author Name Unknown Address Unknown Organization K01:[facility] [place] [address] [facility] [address] Laboratory Report Ordering Provider Test Date Status ANGELICA CRAMER 06/02/2024 05:42:00 Final Observation Date Value Abnormality Reference (Units ) Status HbA1C 06/02/2024 05:42:00 5.9 Above high normal 4. 0-5.6 (%) Final The use of HbA1c to monitor glycemic status is based on normal hemoglobin and HbA composition. This test should not be used in patients with abnormal hemoglobin that affects the half life of the red blood cell or the in vivo glycation rates. Glucose, estimated average 06/02/2024 05:42:00 123 <126 (mg/dL) Final Performing Location [facility] [place] [address] [facility] [address]
--- OUTSIDE RECORDS SUMMARY | 2024-11-18 02:28 | External Medical Summary ---
Author Name Unknown Address Unknown Organization K01:LAB[facility]ATORY [place] [address] [facility] [address] Laboratory Report Ordering Provider Test Date Status ANGELICA CRAMER 06/02/2024 11:11:00 Final Observation Date Value Abnormality Reference (Units ) Status BUN 06/02/2024 11:11:00 15 6-20 (mg/dL) Final Creatinine 06/02/2024 11:11:00 1.4 Above high normal 0.6-1.2 (mg/dL) Final Glomerular filtration rate/1.73 sq M.predicted [Volume Rate/Area] in Serum, Plasma or Blood by Creatinine-based formula (CKD-EPI) 06/02/2024 11:11:00 51 Below low normal >=60 (mL/min) Final eGFR is calculated based on the CKD-EPI 2020 equation. Sodium 06/02/2024 11:11:00 131 Below low normal 135 -146 (mmol/L) Final Potassium 06/02/2024 11:11:00 3.7 3.5-5.1 (m mol/L) Final Cl 06/02/2024 11:11:00 95 Below low normal 98- 107 (mmol/L) Final CO2 06/02/2024 11:11:00 22 22-32 (mmo l/L) Final Anion gap 06/02/2024 11:11:00 14 7-15 (mmol /L) Final Glucose 06/02/2024 11:11:00 148 Above high normal 70 -120 (mg/dL) Final Calcium 06/02/2024 11:11:00 8.2 Below low normal 8.4 -10.2 (mg/dL) Final Performing Location [facility] [place] [facility] [place] [address] [facility] [address]
--- OUTSIDE RECORDS SUMMARY | 2024-11-18 02:28 | External Medical Summary | Summary of Care ---
Author Name Unknown Organization [facility] Address [address] [place] [address] Phone [phone] Care Team Providers Care Press Operator Name Role Phone Rhianna Huitron DO Primary Care Provider [phone] Reason for Visit * Reason Comments Retrieval Encounter Details Date Type Department Care Team (Late st Contact Info) Description 06/01/2024 9:10 PM EDT Documentation [facility] [address] [place] [address] 4, [facility] [address] [place] [address] Septic shock ([facility])* Allergies Active Allergy Reactions Criticality Noted Date [...] Tablet 3 09/21/2023 Suspended Additional Information OneTouch Verio In Vitro Strip (Glucose Blood) [...] 24 Hour (toPROL XL)Indications:NSVT (nonsustained ventricular tachycardia) ([facility]),Non-ischemic cardiomyopathy (HCC),Chronic HFrEF (heart failure with reduced ejection fraction) ([facility]) Take 1 Tablet by mouth in the morning and 1 Tablet before bedtime. 180 Tablet 1 05/31/2024 Suspended Additional Information Furosemide 20 MG Oral Tablet (Lasix)Indications: FREDY (acute kidney injury) ([facility]),Hyponatremia Take 1 Tablet by [...] glucose 12/16/2005 Macular degeneration 12/02/1999 DISC DIS [id number] documented as of this encounter (statuses as [...] colonoscopy in 5 years ARTHRITIS,RHEUMATOID 07/07/2006 016 [id number] 07/07/200611/01 Overview: Renamed Per Clinical Trials Billing Project. Pt is a participant in the [facility] (Consortium of Rheumatology Researchers of [facility]) national data collection study. For further information please call Dr Hari Clark or Julia White, RN, CCRC at [phone] [facility] RESEARCH OTHER*[id number] 07/07/2006 01/28/2010 Overview: Renamed Per Clinical Trials Billing Project. Pt is a participant in the [employer] (Consortium of Rheumatology Researchers of [place]) national data collection study. For further information please call Dr Hari Clark or Julia White, RN, CCRC at [phone] Hearing loss 12/02/1999 03/29/2013 documented as of this encounter (statuses as of 06/02/2024) Immunizations Name Administration Dates Next Due COVID-19 mRNA, LNP-s, No Pre serve, 2-Dose Series ([employer]) 06/14/2021,10/10/2020,09/12/2020 COVID-19, LNP-s, No Preserve , Yousuf-sucrose, Ages 12+ (Pfizer) 12/25/2021 Covid-19, Mrna, Lnp-s, Pf, B ivalent, 30 Mcg, IM, 12 yrs and above ([employer]) 05/23/2022 Pneumococcal Conjugate Vacc, 13 Valent (Prevnar) [...] as of this encounter Progress Notes * Eddie Jones RN - 06/02/2024 12:03 AM EDT MEDICARE AMBULANCE INFORMATION SHEET Patient Admitted as an Inpatient: yes Certifying Physician/Ordering Service:[facility] [place] ED Physician - Shyam Lewis M.D. [facility] [address] [place] [address] Point of Human Resources Benefits Coordinator (zip code required): Hospital - [facility] - [address]; [place] [address] Destination (Specify Name/Address): [facility] - [address] [place] [address] Patient transported to nearest facility (capable of mgmt for Pt's condition): YES Total number of Loaded Miles: 66 miles Mode of Transport: Air Completed by: Eddie Jones RN documented in this encounter Plan of Treatment Upcoming Encounters Date Type Department Care Team (Late st Contact Info) Description 06/02/2024 7:00 AM EDT Laboratory Lab Mobile Phlebotomy [facility] [address] [place] [address] [facility], [facility] Mobile Home Draw [address] [facility] [place] [address] Arrived 06/20/2024 10:00 AM EST Laboratory Laboratory, [place] [address] [place] [address] [facility] [address] [place] [address] 06/27/2024 2:30 PM EST Office Visit Hematology/Oncology Jayashree Hobbs [place] [address] [place] [phone] Korin Fisher CRNP [address] [facility] [place] [address] 06/28/2024 2:15 PM EST Procedure Only Urology, [facility] [address] [facility] [place] [address] Vinay Sexton MD [address] [place] [address] 09/08/2024 3:40 PM EST Office Visit Nephrology, [address] [address] Bryson Ellis MD [address] [place] [address] 10/17/2024 10:30 AM EDT Office Visit Cardiology, [facility] [address] [facility] [place] [address] Dmitri Greenfield DO [address] [facility] [place] [address] 03/21/2025 11:45 AM EDT Telemedicine Urology, [facility] [address] [place] [address] Vinay Sexton MD [address] [place] [address] Scheduled Procedures Name Priority Associated Diagnoses Date/Ti [...] 11/06/2023, 06/04, 12/24/2022, Additional history exists GFR 11/30/2024 06/01/2024, 05/04, 05/30/2024, Additional history exists CKD HGB USE SMARTSET 43500 06/01/202506/01, 05/31/2024, 05/18/2024, Additional history exists CKD PHOS USE SMARTSET 98249 06/01/202505/05, 05/31/2024, 05/18/2024 DTap/Tdap Vaccines (3 - Td or [...] D LEVEL ONCE IN A LIFETIME-USE SMARTSET# 54133 Completed 03/21/2024, 12/25/2023, 05/27/2021, Additional history exists [...] as of this encounter Visit Diagnoses Diagnosis Septic shock (HCC)- Primary Unspecified septicemia documented in this encounter Advance Directives * Full Code (Latest Code Status on File) Date Activated Date Inactivated Comments 06/01/2024 11:10 PM This order r eflects the patients wishes and were consensually agreed upon. Question Answer Comments Discussion of Advance Direct teo occurred with: Not Discussed due to patient's condition Care Teams Press Operator Relationship Specialty Start Date End Date Rhianna Huitron DO [address] [place] [address] PCP - General Family Medicine 07/11/19 documented as of this encounter
--- OUTSIDE RECORDS SUMMARY | 2024-11-18 02:29 | External Medical Summary ---
Author Name Unknown Address Unknown Organization K01:LABORATORY [place] [address] [facility] [address] Laboratory Report Ordering Provider Test Date Status ANGELICA CRAMER 06/01/2024 23:23:00 Final Observation Date Value Abnormality Reference (Units ) Status BUN 06/01/2024 23:23:00 17 6-20 (mg/dL) Final Creatinine 06/01/2024 23:23:00 1.5 Above high normal 0.6-1.2 (mg/dL) Final Glomerular filtration rate/1.73 sq M.predicted [Volume Rate/Area] in Serum, Plasma or Blood by Creatinine-based formula (CKD-EPI) 06/01/2024 23:23:00 47 Below low normal >=60 (mL/min) Final eGFR is calculated based on the CKD-EPI 2020 equation. Sodium 06/01/2024 23:23:00 124 Below low normal 135 -146 (mmol/L) Final Potassium 06/01/2024 23:23:00 3.9 3.5-5.1 (m mol/L) Final Cl 06/01/2024 23:23:00 89 Below low normal 98- 107 (mmol/L) Final CO2 06/01/2024 23:23:00 21 Below low normal 22- 32 (mmol/L) Final Anion gap 06/01/2024 23:23:00 14 7-15 (mmol /L) Final Glucose 06/01/2024 23:23:00 185 Above high normal 70 -120 (mg/dL) Final Calcium 06/01/2024 23:23:00 8.1 Below low normal 8.4 -10.2 (mg/dL) Final Performing Location [facility] [place] [facility] [place] [address] [facility] [address]
--- OUTSIDE RECORDS SUMMARY | 2024-11-18 02:29 | External Medical Summary ---
Author Name Unknown Address Unknown Organization K01:[facility]ORY [facility] [place] - [address] [place] [address] Laboratory Report Ordering Provider Test Date Status ANGELICA CRAMER 06/01/2024 23:23:00 Final Observation Date Value Abnormality Reference (Units ) Status Albumin 06/01/2024 23:23:00 2.6 Below low normal 3.8-5.0 (g/dL) Final AST (Aspartate aminotransferase) 06/01/2024 23:23:00 23 10-50 (U/L) Final Alk Phos 06/01/2024 23:23:00 105 35-130 (U/L) Final ALT (Alanine aminotransferase) 06/01/2024 23:23:00 14 10-50 (U/L) Final Bilirubin, Total 06/01/2024 23:23:00 0.3 <=1.2 (mg/dL) Final Bilirubin, Direct 06/01/2024 23:23:00 <0.2 0.0-0.3 (mg/dL) Final Protein 06/01/2024 23:23:00 6.1 6.0-8.3 (g/dL) Final Performing Location [facility]ORY [facility] [place] - [facility] [place] [address]
--- OUTSIDE RECORDS SUMMARY | 2024-11-18 02:29 | External Medical Summary ---
Author Name Unknown Address Unknown Organization K01:[facility] [place] [address] [place] [address] Laboratory Report Ordering Provider Test Date Status ANGELICA CRAMER 06/02/2024 00:06:00 Final Observation Date Value Abnormality Reference (Units ) Status Bacteria identified in Specimen by Culture 06/02/2024 00:06:00 No growth Final Test: Culture, Blood
Tomi miles Source: Blood, Venous
Specimen Type: Blood
Specimen Date: 06/02/2024 0006
Result Date: 06/07/2024 0001
Result Status: Final result
Resulting Lab: [facility] [place]
[address] [place]
[place] [address]

CULTURE

No growth

null Performing Location [facility] [facility] [place] [address] [place] [address]
--- OUTSIDE RECORDS SUMMARY | 2024-11-18 02:29 | External Medical Summary ---
Author Name Unknown Address Unknown Organization K01:[facility] [place] [address] [place] [address] Laboratory Report Ordering Provider Test Date Status ANGELICA CRAMER 06/01/2024 23:23:00 Final Observation Date Value Abnormality Reference (Units ) Status Troponin T 06/01/2024 23:23:00 560 Above upper panic limits <=22 (ng/L) Final Performing Location [facility] [place] [address] [place] [address]
--- OUTSIDE RECORDS SUMMARY | 2024-11-18 02:29 | External Medical Summary ---
Author Name Unknown Address Unknown Organization K01:[facility] - [address] [place] [address] Laboratory Report Ordering Provider Test Date Status DESIREE STEPHENS 05/31/2024 09:03:00 Final Observation Date Value Abnormality Reference (Units ) Status Phosphate 05/31/2024 09:03:00 2.9 2.5-4.8 (m g/dL) Final Performing Location [facility] - [address] [place] [address]
--- OUTSIDE RECORDS SUMMARY | 2024-11-18 02:29 | External Medical Summary ---
Author Name Unknown Address Unknown Organization K01:LABORATORY [facility] [place] [address] [place] [address] Laboratory Report Ordering Provider Test Date Status ANGELICA CRAMER 06/01/2024 23:23:00 Final Observation Date Value Abnormality Reference (Units ) Status CRP, low-sensitivity 06/01/2024 23:23:00 140 Above high normal <=5 (mg/L) Final Performing Location [facility] [place] [address] [facility] [address]
--- OUTSIDE RECORDS SUMMARY | 2024-11-18 02:29 | External Medical Summary ---
Author Name Unknown Address Unknown Organization : Laboratory Report Ordering Provider Test Date Status DERRICK JOHNSON 06/02/2024 01:51:37 Final Observation Date Value Abnormality Reference (Units ) Status Glucose Point of Care 06/02/2024 01:51:37 234 Above high normal 70-120 (mg/dL) Final Performing Location
--- OUTSIDE RECORDS SUMMARY | 2024-11-18 02:29 | External Medical Summary ---
Author Name Unknown Address Unknown Organization K01:LABORATORY [facility] [place] [address] [place] [id number] Laboratory Report Ordering Provider Test Date Status ANGELICA CRAMER 06/02/2024 00:15:00 Final Observation Date Value Abnormality Reference (Units ) Status Bacteria identified in Specimen by Culture 06/02/2024 00:15:00 No growth Final Test: Culture, Blood (Site 2 )
Specimen Source: Blood, Venous
Specimen Type: Blood
Specimen Date: 06/02/2024 0015
Result Date: 06/07/2024 0001
Result Status: Final result
Resulting Lab: LABORATORY [facility] [place]
[address] [place] [address] [address]

CULTURE

No growth

null Performing Location LABORATORY [facility] [place] [address] [place] [address]
--- OUTSIDE RECORDS SUMMARY | 2024-11-18 02:29 | External Medical Summary ---
Author Name Unknown Address Unknown Organization K01:LABORATORY [place] [address] [facility] [address] Laboratory Report Ordering Provider Test Date Status ANGELICA CRAMER 06/01/2024 23:24:00 Final Observation Date Value Abnormality Reference (Units ) Status Calcium.ionized [Moles/volume] in Blood by Ion-selective membrane electrode (ISE) 06/01/2024 23:24:00 1.10 Below low normal 1.13-1.32 (mmol/L) Final Performing Location [facility] [place] - [facility] [address] [facility] [address]
--- OUTSIDE RECORDS SUMMARY | 2024-11-18 02:29 | External Medical Summary ---
Author Name Unknown Address Unknown Organization K01:[facility] [place] [address] [place] [address] Laboratory Report Ordering Provider Test Date Status ANGELICA CRAMER 06/02/2024 00:06:00 Final Observation Date Value Abnormality Reference (Units ) Status Osmolality 06/02/2024 00:06:00 269 Below low normal 27 8-305 (mOsm/kg) Final Performing Location [facility] - [address] [place] [address]
--- OUTSIDE RECORDS SUMMARY | 2024-11-18 02:29 | External Medical Summary ---
Author Name Unknown Address Unknown Organization K01:[facility]ORY [facility] [place] [facility] [address] [facility] [address] Laboratory Report Ordering Provider Test Date Status ANGELICA CRAMER 06/02/2024 00:06:00 Final Observation Date Value Abnormality Reference (Units ) Status BUN 06/02/2024 00:06:00 17 6-20 (mg/dL) Final Creatinine 06/02/2024 00:06:00 1.6 Above high normal 0.6-1.2 (mg/dL) Final Glomerular filtration rate/1.73 sq M.predicted [Volume Rate/Area] in Serum, Plasma or Blood by Creatinine-based formula (CKD-EPI) 06/02/2024 00:06:00 46 Below low normal >=60 (mL/min) Final eGFR is calculated based on the CKD-EPI 2020 equation. Sodium 06/02/2024 00:06:00 124 Below low normal 135 -146 (mmol/L) Final Potassium 06/02/2024 00:06:00 3.8 3.5-5.1 (m mol/L) Final Cl 06/02/2024 00:06:00 89 Below low normal 98- 107 (mmol/L) Final CO2 06/02/2024 00:06:00 21 Below low normal 22- 32 (mmol/L) Final Anion gap 06/02/2024 00:06:00 14 7-15 (mmol /L) Final Glucose 06/02/2024 00:06:00 191 Above high normal 70 -120 (mg/dL) Final Calcium 06/02/2024 00:06:00 8.0 Below low normal 8.4 -10.2 (mg/dL) Final Performing Location [facility] [place] [facility] [address] [facility] [address]
--- OUTSIDE RECORDS SUMMARY | 2024-11-18 02:29 | External Medical Summary | Summary of Care ---
Author Name Unknown Organization [facility] Address [address] [place] [address] Phone [phone] Care Team Providers Care Recreation Professor Name Role Phone Rhianna Huitron DO Primary Care Provider Reason for Referral * Ancillary Services (Within 10 days (routine)) - Authorized Specialty Diagnoses / Procedures Referred By Contac t Referred To Contact Client Finance Analyst Diagnoses Hyponatremia Stage 3a chronic kidney disease (HCC) Bryson Ellis MD [address] [place] [address] Referral ID Status Reason Start Date Expiration Date Visits Requested Visits Authorized [id number] Authorized Ancillary Services Required 4 [phone] [...] on the next service day for the [facility] Home Phlebotomy does not service every geographical location on a daily basis. Contact [facility] Client Services at to find out service days for a specific location. Medical Laboratory [facility] Patient Name: Makrus Wharton : 1945 Sex: male Address [address] [place] [address] Provider: @REF@? Rhianna Huitron, DO? Diagnosis: (E87.1) Hyponatremia (primary encounter diagnosis) (N18.31) Stage 3a chronic kidney disease (HCC) Tests Requested BMP - once Reason for Visit * Reason Onset Date Comments Outpatient Testing 05/27/2024 Encounter Details Date Type Department Care Team (Late st Contact Info) Description 05/27/2024 Telephone Nephrology, [address] [address] Bryson Ellis MD [address] [place] [address] Outpatient Testing Allergies Active Allergy Reactions [...] glucose 12/16/2005 Macular degeneration 12/02/1999 DISC DIS [id number] documented as of this encounter (statuses as [...] colonoscopy in 5 years ARTHRITIS,RHEUMATOID 07/07/2006 016 [id number] 07/07/200611/01 Overview: Renamed Per Clinical Trials Billing Project. Pt is a participant in the [employer] (Consortium of Rheumatology Researchers [place]) national data collection study. For further information please call Dr Hari Clark or Julia White, RN, CCRC at [phone] [facility] RESEARCH OTHER*[id number] 07/07/2006 01/28/2010 Overview: Renamed Per Clinical Trials Billing Project. Pt is a participant in the [employer] (Consortium of Rheumatology Researchers [place]) national data collection study. For further information please call Dr Hari Clark or Julia White, RN, CCRC at [phone] Hearing loss 12/02/1999 03/29/2013 documented as of [...] Telephone Encounter - Ruma Kay LPN - 05/31/2024 2:56 PM EDT FILOMENA Ellis. * Telephone Encounter - Claudia Jensen OSA [...] Mobile Phlebotomy [facility] [address] [place] [address] [facility], [facility] Mobile Home Draw [address] [place] [address] 06/20/2024 10:00 AM EST Laboratory Laboratory, [place] [address] [place] [address] [facility] [address] [place] [address] 06/27/2024 2:30 PM EST Office Visit Hematology/Oncology Jayashree Hobbs [place] [address] [place] [phone] Korin Fisher CRNP [address] [place] [address] 06/28/2024 2:15 PM EST Procedure Only Urology, [facility] [address] [facility] [place] [address] Vinay Sexton MD [address] [place] [address] 09/08/2024 3:40 PM EST Office Visit Nephrology, [facility] [address] [place] [address] Bryson Ellis MD [address] [place] [address] 10/17/2024 10:30 AM EDT Office Visit Cardiology, [facility] [address] [facility] [place] [address] Dmitri Green[place], [address] [facility] [place] [address] 03/21/2025 11:45 AM EDT Telemedicine Urology, [facility] [address] [facility] [place] [address] Vinay Sexton MD [address] [place] [address] Scheduled Procedures Name Priority Associated Diagnoses Date/Ti [...] Additional history exists CKD PHOS USE SMARTSET 93313 05/18/2025 05/18/2024 CKD HGB USE SMARTSET 17272 05/31/202505/31, 05/18/2024, 03/21/2024, Additional history exists DTap/Tdap [...] D LEVEL ONCE IN A LIFETIME-USE SMARTSET# 68338 Completed 03/21/2024, 12/25/2023, 05/27/2021, Additional history exists [...] (HCC) documented in this encounter Care Teams Recreation Professor Relationship Specialty Start Date End Date Rhianna Huitron DO [address] [place] [address] PCP - General Family Medicine 07/11/19 documented as of this encounter
--- OUTSIDE RECORDS SUMMARY | 2024-11-18 02:29 | External Medical Summary ---
Author Name Unknown Address Unknown Organization [id number]:[facility] [address] [place] [address] Laboratory Report Ordering Provider Test Date Status DESIREE STEPHENS 05/31/2024 09:03:00 Final Observation Date Value Abnormality Reference (Units ) Status Magnesium 05/31/2024 09:03:00 2.1 1.5-2.6 (m g/dL) Final Performing Location [facility] - [address] [place] [address]
--- OUTSIDE RECORDS SUMMARY | 2024-11-18 02:29 | External Medical Summary ---
Author Name Unknown Address Unknown Organization [id number]:[facility] [address] [place] [address] Laboratory Report Ordering Provider Test Date Status ANGELICA CRAMER 06/01/2024 23:23:00 Final Observation Date Value Abnormality Reference (Units ) Status Magnesium 06/01/2024 23:23:00 1.8 1.5-2.6 (m g/dL) Final Performing Location [facility] - [address] [place] [address]
--- OUTSIDE RECORDS SUMMARY | 2024-11-18 02:29 | External Medical Summary ---
Author Name Unknown Address Unknown Organization [id number]:[facility] [place] [facility] [address] [facility] [address] [facility] [address] Laboratory Report Ordering Provider Test Date Status ANGELICA CRAMER 06/01/2024 23:23:00 Final Observation Date Value Abnormality Reference (Units ) Status WBC, Total 06/01/2024 23:23:00 36.61 Above high normal 4.00-10.80 (K/uL) Final RBC 06/01/2024 23:23:00 3.31 4.50-5.25 (M/uL) Final Hemoglobin 06/01/2024 23:23:00 8.7 Below low normal 14.0-16.8 (g/dL) Final HCT 06/01/2024 23:23:00 27.7 Below low normal 40.0-48.4 (%) Final MCV 06/01/2024 23:23:00 83.7 82.0-99.5 (fL) Final MCH 06/01/2024 23:23:00 26.3 27.0-34.0 (pg) Final MCHC 06/01/2024 23:23:00 31.4 32.0-36.0 (g/dL) Final RDW 06/01/2024 23:23:00 17.9 11.5-15.5 (%) Final Platelets 06/01/2024 23:23:00 498 Above high normal 140-400 (K/uL) Final MPV 06/01/2024 23:23:00 8.7 6.6-11.1 (fL) Final Nucleated erythrocytes/100 leukocytes [Ratio] in Blood by Automated count 06/01/2024 23:23:00 0 <=0 (/100 WBCs) Final Performing Location [facility] [place] [address] [place] [address]
--- OUTSIDE RECORDS SUMMARY | 2024-11-18 02:29 | External Medical Summary ---
Author Name Unknown Address Unknown Organization [id number]:[facility] [place] [address] [place] [address] Laboratory Report Ordering Provider Test Date Status ANGELICA CRAMER 06/02/2024 01:39:30 Final Observation Date Value Abnormality Reference (Units ) Status Sodium, Urine 06/02/2024 01:39:30 <20 (mmol/ L) Final Performing Location [facility] [place] [address] [place] [address]
--- OUTSIDE RECORDS SUMMARY | 2024-11-18 02:29 | External Medical Summary ---
Author Name Unknown Address Unknown Organization [id number]:[facility] [place] [address] [place] [address] Laboratory Report Ordering Provider Test Date Status ANGELICA CRAMER 06/02/2024 01:39:30 Final Observation Date Value Abnormality Reference (Units ) Status Osmolality, Urine 06/02/2024 01:39:30 182 50 -1200 (mOsm/kg) Final Performing Location [facility] [place] [address] [place] [address]
--- OUTSIDE RECORDS SUMMARY | 2024-11-18 02:29 | External Medical Summary ---
Author Name Unknown Address Unknown Organization [id number]:LABORATORY [facility] [place] - [address] [facility] [address] Laboratory Report Ordering Provider Test Date Status ANGELICA CRAMER 06/01/2024 23:23:00 Final Observation Date Value Abnormality Reference (Units ) Status Phosphate 06/01/2024 23:23:00 2.1 Below low normal 2.5 -4.8 (mg/dL) Final Performing Location [facility] - [address] [place] [address]
--- OUTSIDE RECORDS SUMMARY | 2024-11-18 02:29 | External Medical Summary ---
Author Name Unknown Address Unknown Organization [id number]:[facility] [place] [address] [place] [address] Laboratory Report Ordering Provider Test Date Status ANGELICA CRAMER 06/01/2024 23:23:00 Final Observation Date Value Abnormality Reference (Units ) Status Lactic Acid 06/01/2024 23:23:00 1.5 0.4-2.0 (mmol/L) Final Performing Location [facility] - [address] [place] [address]
--- OUTSIDE RECORDS SUMMARY | 2024-11-18 02:29 | External Medical Summary | Summary of Care ---
Author Name Unknown Organization [facility] Address [address] [place] [address] Phone [phone] Care Team Providers Care Cancer Spec Name Role Phone Rhianna Huitron DO Primary Care Provider [phone] Encounter Details Date Type Department Care Team (Late st Contact Info) Description 05/31/2024 Refill Infectious Disease, [address] [phone] Bryson Ellis MD [address] [place] [id number] FREDY (acute kidney injury) ([facility])*; Hyponatremia Allergies Active Allergy Reactions Criticality Noted [...] mouth daily 45 Tablet 3 03/17/2024 Active Rosuvastatin Calcium 5 MG Oral Tablet (Crestor) TAKE 1 TABLET BY MOUTH EVERY DAY IN THE MORNING 90 Tablet 3 05/04/2024 Active Albuterol Sulfate HFA 108 (90 Base) MCG/ACT Inhalation Aerosol Solution Inhale 1 Puff by mouth every 6 hours as needed for Wheezing. 04/08/2024 Active Melatonin 3 MG Oral Tablet Take 2 Tablets by mouth at bedtime. 04/08/2024 Active Metoprolol Succinate ER 25 MG Oral Tablet Extended Release 24 Hour (toPROL XL)Indications:NSVT (nonsustained ventricular tachycardia) ([facility]),Non-ischemic cardiomyopathy (HCC),Chronic HFrEF (heart failure with reduced ejection fraction) ([facility]) Take 1 Tablet by mouth in the morning and 1 Tablet before bedtime. 180 Tablet 1 05/31/2024 Active Furosemide 20 MG Oral Tablet (Lasix)Indications:A KI (acute kidney injury) ([facility]),Hyponatremia Take 1 Tablet by mouth in the morning and 1 Tablet before bedtime. 60 Tablet 5 05/31/2024 Active Urea 15 GM Oral Packet (Ure-Na)Indications: FREDY (acute kidney injury) (HCC),Hyponatremia Take 15 g by mouth in the morning and 15 g before bedtime. 60 Packet 5 05/31/2024 Active documented as of this encounter (statuses [...] glucose 12/16/2005 Macular degeneration 12/02/1999 DISC DIS [id number] documented as of this encounter (statuses as [...] colonoscopy in 5 years ARTHRITIS,RHEUMATOID 07/07/2006 016 [id number] 07/07/200611/01 Overview: Renamed Per Clinical Trials Billing Project. Pt is a participant in the [facility] ([employer]ortium of [employer] [place]) national data collection study. For further information please call Dr Hari Clark or Julia White, RN, CCRC at [phone] [facility] RESEARCH OTHER*[id number] 07/07/2006 01/28/2010 Overview: Renamed Per Clinical Trials Billing Project. Pt is a participant in the [employer] ([employer]ortium [employer]ology [employer] [place]) national data collection study. For further information please call Dr Hari Clark or Julia White, RN, CCRC at [phone] Hearing loss 12/02/1999 03/29/2013 documented as of this encounter (statuses as of 05/31/2024) Immunizations Name Administration Dates Next Due COVID-19 mRNA, LNP-s, No Pre serve, 2-Dose Series ([employer]) 06/14/2021,10/10/2020,09/12/2020 COVID-19, LNP-s, No Preserve , Yousuf-sucrose, [...] encounter Miscellaneous Notes * Telephone Encounter - Cathy Urrutia LPN - 05/31/2024 1:16 PM EDTPending Prescriptions: Disp Refills Furosemide 20 MG Oral Tablet (Lasix) 60 Tab*5 Sig: Take 1 Tablet by mouth in the morning and 1 Tablet before bedtime. Urea 15 GM Oral Packet (Ure-Na) 60 Pac*5 Sig: Take 15 g by mouth in the morning and 15 g before bedtime. * Telephone Encounter - Claudia Jensen OSA - 05/31/2024 12:52 PM EDT Pt called into Nephrology Scheduling line, pt said he is going to go to the ER. Thank You, Abby * Telephone Encounter - Ruma Kay LPN - 05/31/2024 11:47 AM EDT Call to pt who refuses ER at this time. Pt reports he is homebound and does not want to have to call the ambulance, etc. Pt reports that he feels fine and will take the new medications. Meds are pending, please auth. BMP will be ordered through client services for . * Telephone Encounter - Ruma Kay LPN - 05/31/2024 11:03 AM EDT ----- Message from Bryson Ellis MD sent at 05/31/2024 10:10 AM EDT ----- His sodium is low. He needs to go to the nearest ER. Start him on furosemide 20 mg twice daily, and urea 15 g twice daily. Repeat BMP on . documented in this encounter Plan of Treatment Upcoming Encounters Date Type Department Care Team (Late st Contact Info) Description 06/02/2024 7:00 AM EDT Laboratory Lab Mobile Phlebotomy [facility] [address] [facility] [place] [address] [facility], [facility] Mobile Home Draw [address] [facility] [facility] [place] [address] 06/20/2024 10:00 AM EST Laboratory Laboratory, [place] [address] [place] [id number] [facility] [address] [place] [address] 06/27/2024 2:30 PM EST Office Visit Hematology/Oncology [facility] [address] [phone] Korin Fisher CRNP [address] [facility] [place] [address] 06/28/2024 2:15 PM EST Procedure Only Urology, [address] [place] [address] Vinay Sexton MD [address] [place] [address] [place] [address] 09/08/2024 3:40 PM EST Office Visit Nephrology, [facility] [address] [place] [address] Bryson Ellis MD [address] [facility] [place] [address] 10/17/2024 10:30 AM EDT Office Visit Cardiology, [facility] [address] [facility] [place] [address] Dmitri Greenfield, DO [address] [place] [address] 03/21/2025 11:45 AM EDT Telemedicine Urology, [facility] [address] [place] [address] Vinay Sexton MD [address] [facility] [place] [id number] Scheduled Orders Name Type Priority Associated Diagnoses Orde r Schedule BASIC METABOLIC PANEL Lab Routine FREDY (acute kidney injury) (HCC) Hyponatremia Expected: 06/02/2024, Expires: 05/31/2025 Scheduled Procedures Name Priority Associated Diagnoses Date/Ti [...] Additional history exists CKD PHOS USE SMARTSET 87466 05/18/2025 05/18/2024 CKD HGB USE SMARTSET 51071 05/31/202505/31, 05/18/2024, 03/21/2024, Additional history exists DTap/Tdap [...] D LEVEL ONCE IN A LIFETIME-USE SMARTSET# 37166 Completed 03/21/2024, 12/25/2023, 05/27/2021, Additional history exists [...] Visit Diagnoses Diagnosis FREDY (acute kidney injury) (HCC)- Primary Acute kidney failure, unspecified Hyponatremia Hyposmolality and/or hyponatremia documented in this encounter Care Teams Cancer Spec Relationship Specialty Start Date End Date Rhianna Huitron DO [address] [place], [place] [id number] PCP - General Family Medicine 07/11/19 documented as of this encounter
--- OUTSIDE RECORDS SUMMARY | 2024-11-18 02:29 | External Medical Summary ---
Author Name Unknown Address Unknown Organization K01:LAB[facility] [place] - [address] [facility] [address] Laboratory Report Ordering Provider Test Date Status ANGELICA CRAMER 06/02/2024 01:39:30 Final Observation Date Value Abnormality Reference (Units ) Status Color of Urine by Auto 06/02/2024 01:39:30 Light Yellow Colorless, Light Yellow, Yellow, Dark Yellow Final Clarity, Urine 06/02/2024 01:39:30 Clear Clear Final Glucose [Mass/volume] in Urine by Automated test strip 06/02/2024 01:39:30 Negative Negative (mg/dL) Final Bilirubin.total [Presence] in Urine by Automated test strip 06/02/2024 01:39:30 Negative Negative Final Ketones [Mass/volume] in Urine by Automated test strip 06/02/2024 01:39:30 Negative Negative (mg/dL) Final Specific gravity, Urine 06/02/2024 01:39:30 1.029 1.003-1.030 Final Hemoglobin [Presence] in Urine by Automated test strip 06/02/2024 01:39:30 Small Abnormal Negative Final pH, Urine 06/02/2024 01:39:30 6.0 5.0-7.5 (Units) Final Protein [Mass/volume] in Urine by Automated test strip 06/02/2024 01:39:30 30 Abnormal Negative (mg/dL) Final Urobilinogen [Mass/volume] in Urine by Automated test strip 06/02/2024 01:39:30 Normal Normal (mg/dL) Final Nitrite [Presence] in Urine by Automated test strip 06/02/2024 01:39:30 Negative Negative Final Leukocyte esterase [Presence] in Urine by Automated test strip 06/02/2024 01:39:30 Trace Abnormal Negative Final RBC, Urine 06/02/2024 01:39:30 6-9 Abnormal 0-2 (/HPF) Final WBC, Urine 06/02/2024 01:39:30 6-9 Abnormal 0-2 (/HPF) Final Bacteria [#/area] in Urine sediment by Microscopy high power field 06/02/2024 01:39:30 0-25 0-25 (/HPF) Final Calcium oxalate crystals [#/area] in Urine sediment by Microscopy high power field 06/02/2024 01:39:30 1-4 Abnormal None (/HPF) Final CULTURE, URINE - [facility] 06/02/2024 01:39:30 Final Culture not indicated by uri nalysis results\X09\ Performing Location LABORATORY [facility] [place] - [facility] [address] [facility] [address] [facility] [address]
[2024-11-18 06:41] LABS: Hematocrit (blood only) 28.5 % (42.0-52.0); Hemoglobin 9.2 g/dl (14.0-18.0); Mean Corpuscular Hemoglobin 27.6 pg (25.0-34.0); Mean Corpuscular Hgb Conc 32.3 g/dL (32.0-36.0); Mean Corpuscular Volume 85.6 fL (80.0-100.0); Mean Platelet Volume 9.1 fL (9.4-12.4); Platelet Count 296 K/uL (130-400); RDW Standard Deviation 57.4 fL (36.4-46.3); Red Blood Count 3.33 M/uL (4.70-6.10); White Blood Count 13.88 K/ul (4.8-10.8)
[2024-11-18 06:54] LABS: BUN Creatinine Ratio 16.3 (10-20); Calcium 8.5 mg/dl (8.6-10.3); Potassium 3.9 mmol/L (3.5-5.1)
[2024-11-18 07:38] LABS: Basophils # (auto) 0.07 K/uL (0.00-0.20); Basophils % (auto) 0.5 %; Eosinophils # (auto) 0.26 K/uL (0.00-0.50); Eosinophils % (auto) 1.9 %; Immature Granulocytes # (auto) 0.74 K/uL (0.01-0.20); Immature Granulocytes % (auto) 5.3 %; Lymphocytes # (auto) 0.75 K/uL (1.20-3.40); Lymphocytes % (auto) 5.4 %; Monocytes % (auto) 7.2 %; Neutrophils # (auto) 11.06 K/uL (1.40-6.50); Neutrophils % (auto) 79.7 %
[2024-11-18] MEDS: TAMSULOSIN HCL 0.4 MG CAP PO SCH (07:57)
[2024-11-18] MEDS: ASPIRIN 81 MG ECTAB PO SCH (07:57)
[2024-11-18] MEDS: METOPROLOL SUCC 25MG EXT REL TAB PO SCH ×2 (07:58→19:55)
[2024-11-18] MEDS: ROSUVASTATIN CALCIUM 5 MG TAB PO SCH (07:58)
[2024-11-18] MEDS: FOLIC ACID 1 MG TAB PO SCH (07:58)
[2024-11-18] MEDS: LOSARTAN POTASSIUM 25 MG TAB PO SCH (07:58)
[2024-11-18] MEDS: ENOXAPARIN INJ 40 MG/0.4 ML SYR SQ SCH (07:59)
--- NOTE | 2024-11-18 10:15 | Hospitalist Progress Note ---
Date of Service November 18, 2024 Assessment & Plan (1) Complicated UTI (urinary tract infection): Plan: per previous hospitalist notes with addendum: Complicated UTI, catheter associated, in the setting of methotrexate use hx BPH with chronic indwelling Ingram catheter, metastatic prostate cancer s/p Lupron/chemoradiation, symphysis pubis osteomyelitis, puboprostatic fistula No sepsis for now Patient due for Ingram catheter exchange by [facility] urologist next week. Suprapubic catheter placement contemplated next month. Acute on chronic hyponatremia secondary to illness chronic systolic heart failure, patient has on the dry side hx CAD status post stent PA/PVCs hypertension, stable hyperlipidemia, on statin Rx DM 2 diet-controlled, well-controlled as of outpatient hemoglobin A1c of 5.11 May 2024 rheumatoid arthritis, home methotrexate currently on hold due to recurrent infections chronic anemia, hemoglobin at baseline past tobacco abuse Admit to [facility] Urine CS, Ceftriaxone Urology consult re: recurrent UTI, history chronic indwelling Ingram catheter, patient due for scheduled catheter change this month Careful correction of serum sodium with gentle IV hydration, hold home diuretic for now ISS BG goal 110-140, carb count coverage 11/18 stable overall Afebrile Urine culture: Serratia marescens, sensitivities pending Continue empiric IV ceftriaxone Urology consulted, no plans for Ingram catheter exchange at this point Sodium level 132, continue IV fluids Monitor closely DVT prophylaxis. Hudsonx subcu Full code Text document was generated using [employer] voice recognition software. It may contain grammatical or spelling errors. Kindly contact undersigned for clarification of any documentation item in question. Admission and Anticipated Discharge Date Admission Date: November 17, 2024 Subjective ff up for catheter associated UTI, etc seen resting in bed, comfortable, in good spirits feels ok overall denies fever/chills, nausea, abdominal/flank/back pain no chest pain, dyspnea, palpitations, dizziness no other symptoms Review of Systems Review of Systems: all noted and negative except for above Physical Exam Physical Exam: General- oriented x 3, not in distress, speaks in sentences with no effort or ac cessory muscle use Eyes- anicteric Neck- no JVD Lungs- clear breath sounds bilaterally, no rales/wheezes Heart- normal rate, regular rhythm; no murmurs Abdomen- normal bowel sounds, nondistended, soft, nontender Ingram cath In place: (+) Yellow, cloudy urine Extremities- no pretibial edema, no calf tenderness Neuro- alert, oriented x 3; no gross focal neurologic deficits Skin- warm & dry Results & Data Results & Data Vital Signs (Past 12 Hours) Vital Signs Temp Pulse Pulse Pulse Resp BP BP 11/18/24 07:38 36.4 C L 88 18 122/76 11/18/24 00:46 11/18/24 00:46 11/18/24 00:46 36.7 C 92 H 20 125/75 11/18/24 00:12 78 18 126/99 11/18/24 00:00 101 H 18 126/99 Pulse Ox O2 Del Method 11/18/24 07:38 96 Room Air 11/18/24 00:46 Room Air 11/18/24 00:46 Room Air 11/18/24 00:46 98 Room Air 11/18/24 00:12 97 Room Air 11/18/24 00:00 97 Room Air all noted and reviewed including below
--- NOTE | 2024-11-18 10:23 | Urology Progress Note ---
Date of Service November 18, 2024 Assessment & Plan (1) Complicated UTI (urinary tract infection): (2) Prostate cancer: (3) Osteomyelitis: Plan: 79-year-old male with a history of metastatic prostate cancer status post radiation, osteomyelitis of pubic symphysis, and chronic indwelling Ingram catheter managed by his urologist, Dr. Sexton. He was admitted for suspected UTI. Patient is afebrile and hemodynamically stable Labs reviewedWBC downtrending (13.88 today), creatinine 1.04 Urine culture prelim with Serratia marcescens Continue with broad-spectrum antibiotics and narrow per sensitivity data when available Ingram is patent and draining appropriately His catheter exchanges have required cystoscopy and wire guidance with his urologist Plan: Maintain current catheter at present Okay to manually irrigate catheter as needed for catheter obstruction Ordered CTAP for further evaluation No acute intervention planned at this time Can reevaluate for catheter exchange by urology pending CT For now he is stable, so would continue with current catheter and antibiotics will follow Admission and Anticipated Discharge Date Admission Date: November 17, 2024 Subjective Patient awake and resting in bed. Denies issues with his Ingram catheter overnight. Denies nausea, vomiting, fever or chills. He reports he has follow-up with Dr. Sexton next week to exchange his catheter with cystoscopy. He is pending suprapubic catheter placement in December. Review of Systems Constitutional: as per Subjective / HPI Genitourinary: + as per Subjective / HPI Physical Exam Constitutional: well developed and well nourished; no acute distress Respiratory: normal respiratory effort; no respiratory distress and no labored breathing Gastrointestinal (Abdomen): Inspection/Auscultation: abdomen normal to inspection Musculoskeletal: Head/Neck/Chest: normocephalic Neurologic: moves all extremities and awake Psychiatric: Orientation: alert and oriented x 3 Genitourinary: Ingram draining yellow urine with sediment Results & Data Vital Signs (Past 12 Hours) Vital Signs Temp Pulse Pulse Pulse Resp BP BP 11/18/24 08:00 11/18/24 07:38 36.4 C L 88 18 122/76 11/18/24 00:46 11/18/24 00:46 11/18/24 00:46 36.7 C 92 H 20 125/75 11/18/24 00:12 78 18 126/99 11/18/24 00:00 101 H 18 126/99 Pulse Ox O2 Del Method 11/18/24 08:00 Room Air 11/18/24 07:38 96 Room Air 11/18/24 00:46 Room Air 11/18/24 00:46 Room Air 11/18/24 00:46 98 Room Air 11/18/24 00:12 97 Room Air 11/18/24 00:00 97 Room Air PG Care Time/CCT Total # of Minutes Spent Total Time Spent with Patient: Total time spent is greater than 50% in coordination of care (as documented) at patient's floor/unit and/or counseling patient: Coding Level of Care Code 69780 SUB INP/OBS CARE 3/50MIN Diagnoses Complicated UTI (urinary tract infection) N39.0 Prostate cancer C61 Osteomyelitis M86.9
--- NOTE | 2024-11-18 12:45 | CT Scan Report ---
ABDOMEN AND PELVIS CT WITHOUT CONTRAST CT DOSE: 1565.48 mGy.cm HISTORY: UTI,h/o osteomyelitis of pubic symphysis TECHNIQUE: Multiaxial CT images of the abdomen and pelvis were performed without contrast. A dose lo wering technique was utilized adhering to the principles of ALARA. COMPARISON STUDY: 06/01/2024 FINDINGS: ABDOMEN: Liver, gallbladder, spleen, pancreas, and adrenal glands have an unremarkable non-IV contras t appearance. Kidneys show no hydronephrosis or calculi. There are scattered atherosclerotic calcific ations. No abdominal aortic aneurysm. Pelvis: Ingram catheter is present and the urinary bladder is decompressed. There is urinary bladder w all thickening and inflammation consistent with cystitis. Prostate is mildly enlarged. There is sigmo id diverticulosis. No acute diverticulitis. There is moderate retained stool. Normal appendix. No bow el inflammation or obstruction. No free fluid or free air. No enlarged adenopathy. Osseous structures: There is trace residual gas adjacent to the pubic symphysis, improved. There is m ildly progressive cortical thinning at the pubis bilaterally. No soft tissue abscess. There is osteop enia. There is lumbar degenerative disc disease. IMPRESSION: 1. Findings consistent with urinary bladder infection. No imaging evidence of pyelonephritis seen. No hydronephrosis. 2. Persistent mild findings of osteomyelitis at the pubis. There is trace adjacent soft tissue gas, i mproved. No soft tissue abscess seen. 3. No other acute findings seen. Otherwise as described. ACT 112: Negative or not required by law. The above report was generated using voice recognition software. It may contain grammatical, syntax o r spelling errors. Electronically signed by: Agustín Rowland M.D. 11/18/2024 12:43 PM
--- NOTE | 2024-11-18 15:38 | Hospitalist Progress Note ---
Date of Service November 18, 2024 Assessment & Plan (1) Complicated UTI (urinary tract infection): Plan: per previous hospitalist notes with addendum: Complicated UTI, catheter associated, in the setting of methotrexate use hx BPH with chronic indwelling Ingram catheter, metastatic prostate cancer s/p Lupron/chemoradiation, symphysis pubis osteomyelitis, puboprostatic fistula No sepsis for now Patient due for Ingram catheter exchange by [facility] urologist next week. Suprapubic catheter placement contemplated next month. Acute on chronic hyponatremia secondary to illness chronic systolic heart failure, patient has on the dry side hx CAD status post stent PA/PVCs hypertension, stable hyperlipidemia, on statin Rx DM 2 diet-controlled, well-controlled as of outpatient hemoglobin A1c of 5.11 May 2024 rheumatoid arthritis, home methotrexate currently on hold due to recurrent infections chronic anemia, hemoglobin at baseline past tobacco abuse Admit to [facility] Urine CS, Ceftriaxone Urology consult re: recurrent UTI, history chronic indwelling Ingram catheter, patient due for scheduled catheter change this month Careful correction of serum sodium with gentle IV hydration, hold home diuretic for now ISS BG goal 110-140, carb count coverage 11/18 stable overall Afebrile Urine culture: Serratia marescens, sensitivities pending Continue empiric IV ceftriaxone Urology consulted, no plans for Ingram catheter exchange at this point Sodium level 132, continue IV fluids Monitor closely DVT prophylaxis. Maru subcu Full code Text document was generated using [employer] voice recognition software. It may contain grammatical or spelling errors. Kindly contact undersigned for clarification of any documentation item in question. Admission and Anticipated Discharge Date Admission Date: November 17, 2024 Subjective follow up for catheter associated UTI, etc seen resting in bed, comfortable sitting up, watching TV states he feels fine overall denies fever/chills, abdominal pain, flank or back pain no other new symptoms Results & Data Results & Data Vital Signs (Past 12 Hours) Vital Signs Temp Pulse Resp BP Pulse Ox O2 Del Method 11/18/24 14:51 36.4 C 58 L 18 119/72 97 Room Air 11/18/24 08:00 Room Air 11/18/24 07:38 36.4 C L 88 18 122/76 96 Room Air
[2024-11-18] MEDS: ACETAMINOPHEN 325 MG TAB PO PRN (19:54)
[2024-11-18] MEDS: cefTRIAXone SODIUM 2,000 MG/50 ML BAG IV SCH (19:55)
[2024-11-18] MEDS: MELATONIN 3 MG TAB PO PRN (20:52)
--- NOTE | 2024-11-19 12:29 | Urology Progress Note ---
Date of Service November 19, 2024 Assessment & Plan (1) Complicated UTI (urinary tract infection): (2) Prostate cancer: (3) Osteomyelitis: Plan: 79-year-old male with a history of metastatic prostate cancer status post radiation, osteomyelitis of pubic symphysis, and chronic indwelling Ingram catheter managed by his urologist, Dr. Sexton. He was admitted for suspected UTI. New issue yesterday/today include development of clot material and debris draining. This was able to be managed Patient is afebrile and hemodynamically stable Labs reviewedWBC downtrending creatinine stable Urine culture Serratia marcescens Continue with broad-spectrum antibiotics and narrow per sensitivity data when available Patient did develop clot material and debris. This appears to be draining without major issue. Gentle irrigation is an option to clear out debris furth er. Overall is tolerating catheter without major increase in symptoms or bother. CT completed yesterday. Reviewed by myself interpreted by myself. Chronic findings of osteomyelitis and obstructive issues. Catheter does appear to be in good position. Significant inflammation around the bladder likely secondary to infection and chronic radiation cystitis. Ingram is patent and draining appropriately His catheter exchanges have required cystoscopy and wire guidance with his urologist. Significant history of osteomyelitis after radiation for prostate cancer. Also has severe stricture disease of the urethra now having episodes of clot material and hematuria. Plan: Maintain current catheter at present Okay to manually irrigate catheter as needed for catheter obstruction Continue with supportive care Maintain current catheter with plan for exchange as previously scheduled with his primary urologist at [facility]. Will monitor as needed moving forward. Clot material and debris appears to be draining without major issue and had been able to be cleared without major concern. If issues do worsen again or major concern develops can realert for reevaluation. Otherwise patient feels that he is likely going to be discharged home soon. And plan to continue to follow with his primary urology team. Admission and Anticipated Discharge Date Admission Date: November 17, 2024 Subjective Patient admitted secondary to infection. Has chronic osteomyelitis of the pubic bone. Has severe obstructive issues as per history of urethral stricture. Has previously followed with Dr. Sexton. Is currently dealing with episodes of gross hematuria that started yesterday. Had increasing issues. Worsening concerns related to the hematuria however this has improved over the last few hours. Awake and resting in bed. Tolerating catheter but dealing with intermittent episodes of hematuria and clot material. Denies nausea, vomiting, fever or chills. He reports he has follow-up with Dr. Sexton next week to exchange his catheter with cystoscopy. He is pending suprapubic catheter placement in December. Developed debris and likely old appearing clots within the urine. These have been able to drain without major issue and has not caused major clot obstruc tion. Review of Systems Review of Systems: All systems reviewed & are unremarkable except as noted in HPI & below Physical Exam Physical Exam: General: Alert in no acute distress. HEENT: Normocephalic Atraumatic. Inspection normal. Cranial Nerves 2-12 Grossly intact. Normal inspection of face. Normal inspection of neck. Psychologic: Normal affect. Respiratory: Nonlabored. No use of accessory muscles. No tachypnea or dyspnea. Cardiovascular: No tachycardia Skin: [place] and Dry. No rashes or visible lesions. Extremities/Lymphatics: No edema Abdomen: Soft Non-distended. No rebound or guarding. : catheter in place. Clearn yellow urine with clot material/debris Results & Data Vital Signs (Past 12 Hours) Vital Signs Temp Pulse Resp BP Pulse Ox O2 Del Method 11/19/24 07:50 36.3 C L 71 18 129/70 99 Room Air PG Care Time/CCT Total # of Minutes Spent Total Time Spent with Patient: Total time spent is greater than 50% in coordination of care (as documented) at patient's floor/unit and/or counseling patient: Coding Level of Care Code 40706 SUB INP/OBS CARE 3/50MIN Diagnoses Complicated UTI (urinary tract infection) N39.0 Prostate cancer C61 Osteomyelitis M86.9
[2024-11-19] MEDS: CEFEPIME 2000MG 2,000 MG/20 ML SYR IV SCH (14:48)
--- NOTE | 2024-11-19 17:59 | Hospitalist Progress Note ---
Date of Service November 19, 2024 Assessment & Plan (1) Complicated UTI (urinary tract infection): Plan: (1) Complicated UTI (urinary tract infection): Plan: per previous hospitalist notes with addendum: Complicated UTI, catheter associated, in the setting of methotrexate use hx BPH with chronic indwelling Ingram catheter, metastatic prostate cancer s/p Lupron/chemoradiation, symphysis pubis osteomyelitis, puboprostatic fistula No sepsis for now Patient due for Ingram catheter exchange by [facility] urologist next week. Suprapubic catheter placement contemplated next month. Acute on chronic hyponatremia secondary to illness chronic systolic heart failure, patient has on the dry side hx CAD status post stent PA/PVCs hypertension, stable hyperlipidemia, on statin Rx DM 2 diet-controlled, well-controlled as of outpatient hemoglobin A1c of 5.11 May 2024 rheumatoid arthritis, home methotrexate currently on hold due to recurrent infections chronic anemia, hemoglobin at baseline past tobacco abuse Admit to [facility] Urine CS, Ceftriaxone Urology consult re: recurrent UTI, history chronic indwelling Ingram catheter, patient due for scheduled catheter change this month Careful correction of serum sodium with gentle IV hydration, hold home diuretic for now ISS BG goal 110-140, carb count coverage 11/18 stable overall Afebrile Urine culture: Serratia marescens, sensitivities pending Continue empiric IV ceftriaxone Urology consulted, no plans for Ingram catheter exchange at this point Sodium level 132, continue IV fluids Monitor closely 11/19 Urine culture: (+) Serratia, Klebsiella, Pseudomonas transitioned to Cefepime continue Ingram, irrigate PRN DVT prophylaxis. Lovenox subcu Full code Admission and Anticipated Discharge Date Admission Date: November 17, 2024 Subjective ff up for Cath associated UTI, etc seen resting in bed, comfortable states he feels fine overall no abdominal pain fever/chills no other symptoms Review of Systems Review of Systems: all noted and negative except for above Physical Exam Physical Exam: General- oriented x 3, not in distress, speaks in sentences with no effort or accessory muscle use Eyes- anicteric Neck- no JVD Lungs- clear breath sounds bilaterally, no rales/wheezes Heart- normal rate, regular rhythm; no murmurs Abdomen- normal bowel sounds, nondistended, soft, nontender Ingram cath: yellow urine Extremities- no pretibial edema, no calf tenderness Neuro- alert, oriented x 3; no gross focal neurologic deficits Skin- warm & dry Results & Data Results & Data Vital Signs (Past 12 Hours) Vital Signs Temp Pulse Resp BP Pulse Ox O2 Del Method 11/19/24 15:17 36.6 C 69 18 107/61 95 Room Air 11/19/24 07:50 36.3 C L 71 18 129/70 99 Room Air all noted and reviewed including below
[2024-11-20 07:18] LABS: BUN Creatinine Ratio 15.9 (10-20); Calcium 8.5 mg/dl (8.6-10.3); Creatinine Clr Calc Pharmacy 75.3 ml/min; Potassium 4.2 mmol/L (3.5-5.1)
--- NOTE | 2024-11-20 15:12 | Hospitalist Progress Note ---
Date of Service November 20, 2024 Assessment & Plan (1) Complicated UTI (urinary tract infection): Plan: (1) Complicated UTI (urinary tract infection): Plan: per previous hospitalist notes with addendum: Complicated UTI, catheter associated, in the setting of methotrexate use hx BPH with chronic indwelling Ingram catheter, metastatic prostate cancer s/p Lupron/chemoradiation, symphysis pubis osteomyelitis, puboprostatic fistula No sepsis for now Patient due for Ingram catheter exchange by [place] urologist next week. Suprapubic catheter placement contemplated next month. Acute on chronic hyponatremia secondary to illness chronic systolic heart failure, patient has on the dry side hx CAD status post stent PA/PVCs hypertension, stable hyperlipidemia, on statin Rx DM 2 diet-controlled, well-controlled as of outpatient hemoglobin A1c of 5.11 May 2024 rheumatoid arthritis, home methotrexate currently on hold due to recurrent infections chronic anemia, hemoglobin at baseline past tobacco abuse Admit to [facility] Urine CS, Ceftriaxone Urology consult re: recurrent UTI, history chronic indwelling Ingram catheter, patient due for scheduled catheter change this month Careful correction of serum sodium with gentle IV hydration, hold home diuretic for now ISS BG goal 110-140, carb count coverage 11/18 stable overall Afebrile Urine culture: Serratia marescens, sensitivities pending Continue empiric IV ceftriaxone Urology consulted, no plans for Ingram catheter exchange at this point Sodium level 132, continue IV fluids Monitor closely 11/19 Urine culture: (+) Serratia, Klebsiella, Pseudomonas transitioned to Cefepime continue Ingram, irrigate PRN 11/20 Continue Ingram catheter, irrigate as needed, Stable, afebrile Awaiting sensitivities for Pseudomonas Continue cefepime DVT prophylaxis. Lovenox subcu Full code Admission and Anticipated Discharge Date Admission Date: November 17, 2024 Subjective follow-up for UTI, catheter associated, etc. Seen resting in bed, sitting, watching TV, comfortable States he feels fine overall No abdominal pain, fevers or chills No other new symptoms Review of Systems Review of Systems: all noted and negative except for above Physical Exam Physical Exam: General- oriented x 3, not in distress, speaks in sentences with no effort or accessory muscle use Eyes- anicteric Neck- no JVD Lungs- clear breath sounds bilaterally, no rales/wheezes Heart- normal rate, regular rhythm; no murmurs Abdomen- normal bowel sounds, nondistended, soft, nontender Ingram catheter in place: Yellow urine Extremities- no pretibial edema, no calf tenderness Neuro- alert, oriented x 3; no gross focal neurologic deficits Skin- warm & dry Results & Data Results & Data Vital Signs (Past 12 Hours) Vital Signs Temp Pulse Resp BP Pulse Ox O2 Del Method 11/20/24 14:16 36.4 C L 69 18 100/61 98 Room Air 11/20/24 07:14 36.5 C 69 18 119/70 98 Room Air all noted and reviewed including below
[2024-11-20] MEDS: ADVANCED PROBIOTIC 625 MG CAPSULE PO SCH (17:24)
[2024-11-20] MEDS: FUROSEMIDE 20 MG TAB PO SCH (17:24)
[2024-11-21 07:11] LABS: Creatinine Clr Calc Pharmacy 72.6 ml/min
--- NOTE | 2024-11-21 16:50 | Hospitalist Progress Note ---
Date of Service November 21, 2024 Assessment & Plan (1) Complicated UTI (urinary tract infection): Plan: (1) Complicated UTI (urinary tract infection): Plan: per previous hospitalist notes with addendum: Complicated UTI, catheter associated, in the setting of methotrexate use hx BPH with chronic indwelling Ingram catheter, metastatic prostate cancer s/p Lupron/chemoradiation, symphysis pubis osteomyelitis, puboprostatic fistula No sepsis for now Patient due for Ingram catheter exchange by [facility] urologist next week. Suprapubic catheter placement contemplated next month. Acute on chronic hyponatremia secondary to illness chronic systolic heart failure, patient has on the dry side hx CAD status post stent PA/PVCs hypertension, stable hyperlipidemia, on statin Rx DM 2 diet-controlled, well-controlled as of outpatient hemoglobin A1c of 5.11 May 2024 rheumatoid arthritis, home methotrexate currently on hold due to recurrent infections chronic anemia, hemoglobin at baseline past tobacco abuse Admit to [facility] Urine CS, Ceftriaxone Urology consult re: recurrent UTI, history chronic indwelling Ingram catheter, patient due for scheduled catheter change this month Careful correction of serum sodium with gentle IV hydration, hold home diuretic for now ISS BG goal 110-140, carb count coverage 11/18 stable overall Afebrile Urine culture: Serratia marescens, sensitivities pending Continue empiric IV ceftriaxone Urology consulted, no plans for Ingram catheter exchange at this point Sodium level 132, continue IV fluids Monitor closely 11/19 Urine culture: (+) Serratia, Klebsiella, Pseudomonas transitioned to Cefepime continue Ingram, irrigate PRN 11/20 Continue Ingram catheter, irrigate as needed, Stable, afebrile Awaiting sensitivities for Pseudomonas Continue cefepime 11/21 Pseudomonas sensitive to ciprofloxacin Continue cefepime for now Transition to Cipro tomorrow DVT prophylaxis. Lovenox subcu Full code Admission and Anticipated Discharge Date Admission Date: November 17, 2024 Subjective Follow-up for UTI Seen resting in bed, comfortable, sitting up watching TV States he feels fine overall Abdominal pain No fevers or chills No other symptoms Review of Systems Review of Systems: all noted and negative except for above Physical Exam Physical Exam: General- oriented x 3, not in distress, speaks in sentences with no effort or accessory muscle use Eyes- anicteric Neck- no JVD Lungs- clear breath sounds bilaterally, no rales/wheezes Heart- normal rate, regular rhythm; no murmurs Abdomen- normal bowel sounds, nondistended, soft, nontender Extremities- no pretibial edema, no calf tenderness Neuro- alert, oriented x 3; no gross focal neurologic deficits Skin- warm & dry Results & Data Results & Data Vital Signs (Past 12 Hours) Vital Signs Temp Pulse Resp BP Pulse Ox O2 Del Method 11/21/24 15:12 36.5 C 61 16 96/55 L 97 Room Air 11/21/24 09:40 36.6 C 77 20 96/59 L 97 Room Air 11/21/24 07:49 36 C L 73 16 120/74 93 Room Air
[2024-11-22 07:15] VITALS: BP 110/64; PULSE 69; RESP 16; TEMP 97.7; O2SAT 95
--- NOTE | 2024-11-22 10:47 | Discharge Summary ---
Discharge Summary Date of Service November 22, 2024 Principal Dx & Hospital Course #1 = Principal Diagnosis (1) Complicated UTI (urinary tract infection): (1) Complicated UTI (urinary tract infection): Plan: per previous hospitalist notes with addendum: Complicated UTI, catheter associated, in the setting of methotrexate use hx BPH with chronic indwelling Ingram catheter, metastatic prostate cancer s/p Lupron/chemoradiation, symphysis pubis osteomyelitis, puboprostatic fistula No sepsis Patient due for Ingram catheter exchange by [facility] urologist next week. Suprapubic catheter placement contemplated next month. given Cefepime IV x 4 days stable overall Afebrile Urine culture: Serratia marescens, Klebsiella, Pseudomonas Urology consulted, no plans for Ingram catheter exchange at this point discharge on Ciprofloxacin 500mg BID x 7 days to complete 10 day course total Acute on chronic hyponatremia secondary to illness resolved chronic systolic heart failure - BP on the lower side advised to reduce Lasix 20mg BID to 1 tab every other day follow up as outpatient hx CAD status post stent PA/PVCs hypertension - BP on the lower side d/c Losartan History of pubic symphysis osteomyelitis possible pelvic abscess - Ct abd/pelvis: Persistent mild findings of osteomyelitis at the pubis. There is trace adjacent soft tissue gas, improved. No soft tissue abscess seen. - follow up as outpatient hyperlipidemia, on statin Rx DM 2 diet-controlled, well-controlled as of outpatient hemoglobin A1c of 5.11 May 2024 rheumatoid arthritis, home methotrexate currently on hold due to recurrent infections chronic anemia, hemoglobin at baseline past tobacco abuse DC home PCP ff up in 1 week Notes For Next Care Provider Medication Changes From Visit Cipro BID x 7 days decrease Lasix to 20mg every other day stop Losartan Admission HPI Per Admitting Provider History obtained from patient and records. Medical history significant for chronic systolic heart failure (EF 35 to 39%%, TTE 2023), CAD status post stent, PAF, history PVCs, hypertension, hyperlipidemia, DM 2 diet-controlled, BPH with chronic indwelling Ingram catheter, metastatic prostate cancer s/p Lupron/chemoradiation, symphysis pubis osteomyelitis, puboprostatic fistula, rheumatoid arthritis, chronic hyponatremia, chronic anemia (baseline hemoglobin of 9-10), past tobacco abuse. Last [facility] confinement May 2024 for secondary to septic shock secondary to community-acquired UTI, pubic symphysis osteomyelitis possible pelvic abscess. Patient transferred to [facility]. Pelvic abscess aspirated by IR. No urologic intervention during confinement. Monthly Ingram catheter changes at local [facility] urologist office since [facility] discharge. Recent outpatient [facility] urology visit last month. Patient anatomy not improving with chronic Ingram catheter as per note. Cystoscopy and open suprapubic tube placement contemplated next month. Patient urine noted to be cloudy today. Patient feeling weak. Denies chest pain, SOB, abdominal pain. IV ceftriaxone administered at the ER. Medical History as above Surgical History : Tonsillectomy/adenoidectomy, urologic procedures Family History : DM, PUD, RA Personal/Social history : Past tobacco abuse, no acute intake, retired [employer] employee Admission Exam Per Admitting Provider GENERAL: Comfortable, pleasant, obese, no respiratory distress SKIN: Pallor, warm HEENT: Alopecia, pale palpebral conjunctivae, no ptosis, dry buccal mucosa NECK : Supple, no tenderness CHEST : CTA, no tenderness HEART : Diminished S1-S2, no obvious murmurs ABDOMEN: Some distention, nontender EXTREMITIES : No LE swelling/tenderness, palpable pulses, no other conspicuous deformities noted NEUROLOGIC : Coherent, no facial asymmetry, no other gross focality Discharge Exam General- oriented x 3, not in distress, speaks in sentences with no effort or accessory muscle use Eyes- anicteric Neck- no JVD Lungs- clear breath sounds bilaterally, no rales/wheezes Heart- normal rate, regular rhythm; no murmurs Abdomen- normal bowel sounds, nondistended, soft, nontender Ingram cath: yellow urine Extremities- no pretibial edema, no calf tenderness Neuro- alert, oriented x 3; no gross focal neurologic deficits Skin- warm & dry Updated Medication List Medication Instructions Recorded Confirmed Type folic acid 1 mg tablet 1 mg PO QAM 04/04/20 11/17/24 History methotrexate sodium 2.5 mg tablet 12.5 mg PO WK 04/15/23 11/17/24 History tamsulosin 0.4 mg capsule 0.4 mg PO QAM 04/15/23 11/17/24 History acetaminophen 325 mg tablet 650 mg (2 x 325 mg) PO Q4H PRN 09/03/23 11/17/24 Rx fever or pain #60 tabs aspirin 81 mg tablet,delayed 81 mg PO QAM #30 tabs 09/03/23 11/17/24 Rx release losartan 25 mg tablet 12.5 mg PO QAM 03/31/24 11/17/24 History rosuvastatin 5 mg tablet 5 mg PO QAM 04/01/24 11/17/24 History albuterol sulfate 90 mcg/actuation 2 puff inhalation Q6H PRN 04/08/24 11/17/24 Rx aerosol inhaler (Ventolin HFA) shortness of breath or wheezing #8.5 grams furosemide 20 mg tablet 20 mg PO AMPM 05/31/24 11/17/24 History melatonin 1 mg chewable tablet 1 mg PO HS PRN Sleep 11/17/24 11/17/24 History metoprolol succinate 25 mg 25 mg PO QAM 11/17/24 11/17/24 History tablet,extended release 24 hr metoprolol succinate 25 mg 37.5 mg PO QPM 11/17/24 11/17/24 History tablet,extended release 24 hr L.acidop,casei,lactis,rham-B.lact,negra 1 cap PO DAILY 30 days #30 caps 11/22/24 Rx 625 mg (10 billion cell) capsule (Advanced Probiotic) ciprofloxacin HCl 500 mg tablet 500 mg PO BID 7 days #14 tabs 11/22/24 Rx (Cipro) Hospital Stay Data Consultations 11/17/24 21:38 ED Decision to Admit Stat 11/18/24 00:34 Consult Urology Routine Diagnostic Imagining Performed Laboratory Results WBC 13.88 K/ul (4.8-10.8) H 11/18/24 06:00 RBC 3.33 M/uL (4.70-6.10) L 11/18/24 06:00 Hgb 9.2 g/dl (14.0-18.0) L 11/18/24 06:00 Hct 28.5 % (42.0-52.0) L 11/18/24 06:00 MCV 85.6 fL (80.0-100.0) 11/18/24 06:00 MCH 27.6 pg (25.0-34.0) 11/18/24 06:00 MCHC 32.3 g/dL (32.0-36.0) 11/18/24 06:00 RDW Std Deviation 57.4 fL (36.4-46.3) H 11/18/24 06:00 RDW Coeff of Jenny 19.0 % (11.5-14.5) H 11/18/24 06:00 Plt Count 296 K/uL (130-400) 11/18/24 06:00 MPV 9.1 fL (9.4-12.4) L 11/18/24 06:00 Immature Gran % (Auto) 5.3 % 11/18/24 06:00 Neut % (Auto) 79.7 % 11/18/24 06:00 Lymph % (Auto) 5.4 % 11/18/24 06:00 Pine % (Auto) 7.2 % 11/18/24 06:00 Eos % (Auto) 1.9 % 11/18/24 06:00 Baso % (Auto) 0.5 % 11/18/24 06:00 Neut # (Auto) 11.06 K/uL (1.40-6.50) H 11/18/24 06:00 Lymph # (Auto) 0.75 K/uL (1.20-3.40) L 11/18/24 06:00 Pine # (Auto) 1.00 K/uL (0.11-0.59) H 11/18/24 06:00 Eos # (Auto) 0.26 K/uL (0.00-0.50) 11/18/24 06:00 Baso # (Auto) 0.07 K/uL (0.00-0.20) 11/18/24 06:00 Immature Gran # (Auto) 0.74 K/uL (0.01-0.20) H 11/18/24 06:00 Sodium 130 mmol/L (136-145) L 11/20/24 06:12 Potassium 4.2 mmol/L (3.5-5.1) 11/20/24 06:12 Chloride 97 mmol/L (98-107) L 11/20/24 06:12 Carbon Dioxide 29 mmol/L (21-32) 11/20/24 06:12 Anion Gap 4 (3-11) 11/20/24 06:12 BUN 17 mg/dl (6-23) 11/20/24 06:12 Creatinine 1.11 mg/dl (0.6-1.4) 11/21/24 06:04 Est Cr Clr Drug Dosing 72.6 ml/min 11/21/24 06:04 eGFR 67.97 11/21/24 06:04 BUN/Creatinine Ratio 15.9 (10-20) 11/20/24 06:12 Glucose 111 mg/dl (70-99(Fasting)) H 11/20/24 06:12 POC Glucose 129 mg/dl (70-99) H 11/22/24 07:36 Calcium 8.5 mg/dl (8.6-10.3) L 11/20/24 06:12 TSH 3.498 uIu/ml (0.300-4.500) 11/17/24 20:52 Urine Color Yellow 11/17/24 17:40 Urine Appearance Turbid (Clear) A 11/17/24 17:40 Urine pH 7.5 (4.5-7.5) 11/17/24 17:40 Ur Specific [place] 1.018 (1.000-1.030) 11/17/24 17:40 Urine Protein 3+ (Negative) H 11/17/24 17:40 Urine Glucose (UA) Negative (Negative) 11/17/24 17:40 Urine Ketones Negative (Negative) 11/17/24 17:40 Urine Blood 2+ (Negative) H 11/17/24 17:40 Urine Nitrite Negative (Negative) 11/17/24 17:40 Urine Bilirubin Negative (Negative) 11/17/24 17:40 Urine Urobilinogen Negative (Negative) 11/17/24 17:40 Ur Leukocyte Esterase 3+ (Negative) H 11/17/24 17:40 Urine WBC (Auto) >50 /hpf (0-5) H 11/17/24 17:40 Urine RBC (Auto) >20 /hpf (0-2) H 11/17/24 17:40 U Hyaline Cast (Auto) >20 /lpf (0-2) H 11/17/24 17:40 U Epithel Cells (Auto) 3-5 /hpf (0-2) H 11/17/24 17:40 Urine Bacteria (Auto) 4+ (None Seen) H 11/17/24 17:40 Impressions Chest X-Ray 11/17/24 21:44 Exam(s): XR CXR 1 VIEW EXAM: XR Chest, 1 View CLINICAL HISTORY: Reason for exam: hyponatremia. TECHNIQUE: Frontal view of the chest. COMPARISON: March 31, 2024 FINDINGS: Lungs: Unremarkable. No acute focal infiltrate or consolidation is seen. Pleural space: Unremarkable. No pneumothorax. Heart: Unremarkable. No cardiomegaly. Mediastinum: Unremarkable. Normal mediastinal contour. Bones/joints: Unremarkable. No acute fracture. Vasculature: The aortic arch is mildly calcified but unchanged. Upper abdomen: Unremarkable as visualized. No pneumoperitoneum under the diaphragm. IMPRESSION: No acute findings in the chest. Electronically signed by: Nasir Santa MD 11/17/24 23:25 PM Abdomen/Pelvis CT 11/18/24 10:[address] WITHOUT CONTRAST CT DOSE: 1565.48 mGy.cm HISTORY: UTI,h/o osteomyelitis of pubic symphysis TECHNIQUE: Multiaxial CT images of the abdomen and pelvis were performed without contrast. A dose lowering technique was utilized adhering to the principles of ALARA. COMPARISON STUDY: 06/01/2024 FINDINGS: ABDOMEN: Liver, gallbladder, spleen, pancreas, and adrenal glands have an unremarkable non-IV contrast appearance. Kidneys show no hydronephrosis or calculi. There are scattered atherosclerotic calcifications. No abdominal aortic aneurysm. Pelvis: Ingram catheter is present and the urinary bladder is decompressed. There is urinary bladder wall thickening and inflammation consistent with cystitis. Prostate is mildly enlarged. There is sigmoid diverticulosis. No acute diverticulitis. There is moderate retained stool. Normal appendix. No bowel inflammation or obstruction. No free fluid or free air. No enlarged adenopathy. Osseous structures: There is trace residual gas adjacent to the pubic symphysis, improved. There is mildly progressive cortical thinning at the pubis bilaterally. No soft tissue abscess. There is osteopenia. There is lumbar degenerative disc disease. IMPRESSION: 1. Findings consistent with urinary bladder infection. No imaging evidence of pyelonephritis seen. No hydronephrosis. 2. Persistent mild findings of osteomyelitis at the pubis. There is trace adjacent soft tissue gas, improved. No soft tissue abscess seen. 3. No other acute findings seen. Otherwise as described. ACT 112: Negative or not required by law. The above report was generated using voice recognition software. It may contain grammatical, syntax or spelling errors. Electronically signed by: Agustín Rowland M.D. 11/18/2024 12:43 PM Pending Results Patient Have Any Pending Studies at Discharge: No Discharge Instructions Given to Patient (Per Discharging Provider) PLEASE REFER TO YOUR NEW MEDICATION LIST AND FOLLOW INSTRUCTIONS CAREFULLY. YOUR NEW MEDICATIONS INCLUDE: Ciprofloxacin- antibiotic for UTI Probiotic- to prevent diarrhea caused by antibiotics Change Lasix to 20mg 1 tab every other day. Stop Losartan. PLEASE CALL YOUR PRIMARY CARE PHYSICIAN OR RETURN TO THE ER IF WITH WORSENING OF SYMPTOMS, INCLUDING fever/chills, abdominal pain, blood in the urine, flank or back pain, diarrhea, etc FOLLOW UP WITH PRIMARY CARE PHYSICIAN OUTLINED ABOVE. Total Time Total Time Spent Total Time Spent (In Minutes): 45 minutes
--- NOTE | 2024-11-22 14:47 | Electrocardiogram Report ---
Test Reason : Blood Pressure : */* mmHG Vent. Rate : 79 BPM Atrial Rate : 79 BPM P-R Int : 182 ms QRS Dur : 106 ms QT Int : 408 ms P-R-T Axes : 105 63 69 degrees QTcB Int : 467 ms Sinus rhythm with occasional Premature ventricular complexes Nonspecific ST abnormality Abnormal ECG When compared with ECG of 01-Jun-2024 17:10, Previous ECG has undetermined rhythm, needs review Confirmed by Teddy Liz ([id number]) on 11/22/2024 2:46:58 PM Referred By: Vinay Sexton Confirmed By: Teddy Liz
== END 2024-11-22 14:39 | disposition home or self-care (01) | DRG 699 ==
LOC: ED 16:45 → 3N 22:28